=== PATIENT | male | born 1965 | race Caucasian/White ===

== ENCOUNTER 2022-04-01 22:06 | Emergency (ER) | payer MEDICARE, SELFPAY ==
[2022-04-01] VITALS (9 sets, daily range): BP systolic 165–190; BP diastolic 103–113; PULSE 82–95; RESP 13–22; TEMP 35.9; O2SAT 91–94; BMI 25.5
--- NOTE | 2022-04-01 23:26 | CRLHL7_ITS ---
For Patients: As a result of the Century Cures Act, medical imaging exams and procedure reports are released immediately into your electronic medical record. You may view this report before your referring provider. If you have questions, please contact your health care provider. INDICATION: Dyspnea and abdominal bloating TECHNIQUE: Chest 2 views. COMPARISON: None FINDINGS: Cardiovascular and mediastinum: Heart size and vasculature are normal in caliber and appearance. Left-sided AICD appears intact. Mediastinum is within normal limits. Lungs and pleural spaces: Faint scattered opacities in the lungs. Small left pleural effusion. No pneumothorax. Bones and soft tissues: No significant findings. IMPRESSION: Faint scattered opacities in both lungs concerning for infection. Small left pleural effusion. Dictated by Aleena Spear MD @ 04/02/2022 12:43:39 AM (Electronically Signed)
--- NOTE | 2022-04-01 23:28 | ED_ITS ---
HPI - SOB/Dyspnea General Chief Complaint: Shortness of Breath/Dyspnea Stated Complaint: Chest pain, difficulty breathing Time Seen by Provider: 04/01/22 23:10 Source: patient and family Mode of arrival: ambulatory History of Present Illness HPI Narrative: 56-year-old male with extensive medical history of chronically collapsed left lung, coronary artery disease presents with a 4 week history of increased dyspnea, abdominal bloating. He states that he last saw his orthodontic laboratory technician 2 days prior to his symptoms starting. Several of his medications were switched. He is not able to run down the fullest what was changed from me we are able to eventually pull up his cardiology consult note. In summary, it looks like metoprolol was stopped and he was started on carvedilol due to elevated blood pressures. There is a slight reduction in his statin as well. Patient states that since that time, he has been having more frequent abdominal bloating. His states that it is related to meals but on specific questioning it does not seem to be. It is a pressure feeling, he states that his abdomen is visibly bloated it is accompanied by feeling of slight nausea. It does not improve he tries to induce vomiting or belching. It is unchanged by bowel movements. He denies a prior history of stomach ulcers, GI bleeding, black tarry stools, prior endoscopy or colonoscopy. He notes no fever. No prior history of similar symptoms except that he had fatigue and shortness of breath a couple of years ago and that was when he was diagnosed with what sounds like an arrhythmia. Reports that he was airlifted to [facility], he had a collapsed lung and a defibrillator was put in at that time. States his defibrillator has not fired. Denies a prior history of heart failure but it looks like he has an EF of around 40% based on his cardiology records. He does not note any recent fever or significant sudden change in his symptoms just gradual progression that became frustrating causing him to come to the ED tonight. He also notes a vague chest discomfort but when I ask for the area he points more epigastric. Past medical history notable for type 2 diabetes, sounds like it is very well controlled, coronary artery disease, cardiomyopathy, hypertension, chronic thrombocytopenia. Medications reviewed and updated from [facility] records, now accurate in our records. No known drug allergies. Socially is currently a nonsmoker, recently moved back to our area from [place]. ROS is notable for the GI, respiratory, cardiovascular symptoms above, otherwise denies times 12 systems. Related Data Home Medications Medication Instructions Recorded Confirmed Home Oxygen 04/01/22 04/01/22 acetaminophen 500 mg tablet 1,000 mg PO Q4-6H PRN 04/01/22 04/01/22 (Acetaminophen Extra Strength) albuterol sulfate 90 mcg/actuation 2 inh inhalation Q4H PRN 04/01/22 04/01/22 aerosol inhaler aspirin 81 mg tablet,delayed 81 mg PO DAILY 04/01/22 04/01/22 release (Enteric Coated Aspirin) atorvastatin 80 mg tablet 40 mg PO DAILY 04/01/22 04/01/22 carvedilol 12.5 mg tablet 12.5 mg PO Q12H 04/01/22 04/01/22 coenzyme Q10 30 mg capsule 30 mg PO DAILY 04/01/22 04/01/22 furosemide 20 mg tablet 40 mg PO DAILY 04/01/22 04/01/22 hydroxyzine HCl 25 mg tablet 25 mg PO DAILY PRN 04/01/22 04/01/22 hydroxyzine HCl 50 mg tablet 50 mg PO QHS PRN 04/01/22 04/01/22 metformin 500 mg tablet,extended 2,000 mg PO DAILY 04/01/22 04/01/22 release 24 hr multivitamin 1 tab PO DAILY 04/01/22 04/01/22 omeprazole 20 mg capsule,delayed 20 mg PO DAILY 04/01/22 04/01/22 release tizanidine 2 mg tablet 2 mg PO Q8H PRN 04/01/22 04/01/22 tizanidine 4 mg tablet 4 mg PO QHS PRN 04/01/22 04/01/22 valsartan 40 mg tablet 80 mg PO DAILY 04/01/22 04/01/22 Previous Rx's Medication Instructions Recorded levofloxacin 500 mg tablet 500 mg PO DAILY #7 tabs 04/02/22 potassium chloride 20 mEq 20 meq PO BID 6 days #12 tabs 04/02/22 tablet,extended release torsemide 20 mg tablet 60 mg PO DAILY #15 tabs 04/02/22 Allergies Allergy/AdvReac Type Severity Reaction Status Date / Time No Known Drug Allergies Allergy Verified 04/01/22 22:38 [facility] Medical History Acquired right foot drop CAD in [place] artery Chronic low back pain with sciatica Coronary artery disease involving [place] coronary artery without angina pectoris Diabetes mellitus, without long-term current use of insulin DM2 (diabetes mellitus, type 2) Generalized ischemic myocardial dysfunction GERD with esophagitis Heart failure Hyperlipidemia Hypertension ICD (implantable cardioverter-defibrillator) in place Ischemic cardiomyopathy On home oxygen therapy Pneumothorax Recurrent pleural effusion on left Required emergent intubation Respiratory failure Right carotid bruit ST elevation (STEMI) myocardial infarction involving left anterior descending coronary artery Surgical History H/O heart artery stent History of thoracentesis Social History Smoking Status: Never smoker How often do you have a drink containing alcohol: never AUDIT-C Alcohol total score: 0 Non-prescribed substance use: denies use Exam Const: Vital Signs, click to edit/add: Vital Signs - 24 hr 04/01/22 22:20 04/01/22 23:00 04/01/22 22:45 Temperature 96.7 F L Pulse Rate Pulse Rate [Left P ulse Oximeter] 82 94 90 Respiratory Rate 22 13 Blood Pressure [Le ft Upper Arm] 190/113 H 170/111 H 165/103 H Pulse Oximetry 93 94 91 Oxygen Delivery Me thod Room Air Room Air 04/01/22 22:30 04/01/22 23:15 04/01/22 23:20 Temperature Pulse Rate 87 91 Pulse Rate [Left P ulse Oximeter] 89 Respiratory Rate Blood Pressure [Le ft Upper Arm] 170/107 H Pulse Oximetry 92 94 94 Oxygen Delivery Me thod 04/01/22 23:32 04/01/22 23:40 04/01/22 23:50 Temperature Pulse Rate 90 91 95 Pulse Rate [Left P ulse Oximeter] Respiratory Rate Blood Pressure [Le ft Upper Arm] Pulse Oximetry 93 94 93 Oxygen Delivery Me thod 04/02/22 00:00 04/02/22 00:10 Temperature 98.1 F Pulse Rate 91 Pulse Rate [Left P ulse Oximeter] 94 Respiratory Rate Blood Pressure [Le ft Upper Arm] 171/114 H Pulse Oximetry 93 93 Oxygen Delivery Me thod Documenting provider has reviewed patient's vital signs: yes Common normals: no apparent distress Other: He is a bit irritable but will answer questions. HENMT: Common normals: normocephalic Head and scalp: normocephalic Mouth: oral and palatal mucosa normal Throat: posterior oropharynx normal Eye: Common normals: conjunctivae normal and no scleral icterus Conjunctiva: conjunctiva(e) normal Neck & C-Spine: Common normals: no lymphadenopathy Resp: Common normals: normal respiratory effort, no use of accessory muscles and clear to auscultation bilaterally Effort & inspection: able to speak in complete sentences Auscultation: clear to auscultation bilaterally Cardio: Common normals: regular rate, regular rhythm, S1 normal heart sound, S2 normal heart sound, no murmurs and peripheral pulses 2+ throughout Rate: regular rate Rhythm: regular rhythm Heart sounds: S1 normal and S2 normal Peripheral pulses: pulses 2+ throughout GI: Other: Abdomen does seem mildly distended. Bowel sounds sound normoactive. Epigastrium is tympanitic. Liver does not seem enlarged. No obvious mass. No hepatosplenomegaly mildly diffusely tender to palpation, no guarding Extremity: Common normals: normal to inspection, normal capillary refill and no pedal edema Neuro: Speech: speech normal Motor exam: no movement abnormalities noted Psych: Other: Irritable but judgment and reasoning seem intact. Skin: Common normals: no rashes or lesions noted General skin exam: no rashes or lesions noted Course Vital Signs Vital signs: Initial Vital Signs Temperature 96.7 F L 04/01/22 22:20 Temperature Source Temporal Artery Scan 04/01/22 22:20 Pulse Rate 82 04/01/22 22:20 Respiratory Rate 22 04/01/22 22:20 Blood Pressure 190/113 H 04/01/22 22:20 Blood Pressure Mean 138 04/01/22 22:20 Blood Pressure Position Semi-Fowlers 04/01/22 22:20 Pulse Oximetry 93 04/01/22 22:20 Oxygen Delivery Method 04/01/22 22:20 Vital Signs Temperature 96.7 F L 04/01/22 22:20 Pulse Rate 82 04/01/22 22:20 Respiratory Rate 22 04/01/22 22:20 Blood Pressure 190/113 H 04/01/22 22:20 Pulse Oximetry 93 04/01/22 22:20 Oxygen Delivery Method 04/01/22 22:20 Temperature 98.1 F 04/02/22 00:10 Pulse Rate 94 04/02/22 00:10 Respiratory Rate 13 04/01/22 23:00 Blood Pressure 171/114 H 04/02/22 00:10 Pulse Oximetry 93 04/02/22 00:10 Oxygen Delivery Method 04/01/22 23:00 MDM - SOB/Dyspnea MDM Narrative Medical decision making narrative: Patient with very wandering initial chief complaint, abdominal, dyspnea, cardiac, respiratory symptoms all at once. The differential diagnosis including heart failure, bowel obstruction, cardiac ischemia, pneumonia, viral illness. Initial labs pointing to some mild infection, chest x-ray certainly suspicious for fluid. Renal function, liver function reassuring. Based on multiple organ systems involved, elected to proceed with CT scan of the chest abdomen and pelvis. Unfortunately there was nearly 2 hour delay from the time that I ordered this until the time it was performed simply because of the vast number of patients in the ER. Ultimately, findings most suspicious for congestive heart failure and fluid overload. And will be treated with furosemide IV and discussed follow-up plan for home diuresis and outpatient follow-up in 5 days to ensure adequate resolution. Some concern also that there could be infection of the left-sided pleural fluid. He certainly is more dyspnea than his reported baseline I have concern that this is part of his clinical change. I would like for him to start level floxacillin and his 1st dose was given here in the emerge ncy department. Alarm symptoms reviewed as indications to come back to the ED. he verbalizes understanding and agreement, all questions answered. Medical Records Attestation: I reviewed the patient's medical records. (Printed from [facility], cardiology consult) Lab Data Attestation: I reviewed the patient's lab results. Labs: Lab Results 04/01/22 04/01/22 04/01/22 Range/Units 22:25 22:25 22:25 WBC 12.14 H (4.50-11.00) K/uL RBC 4.92 (4.30-5.90) m/uL Hgb 13.8 (13.5-17.5) gm/dL Hct 42.2 (37.0-53.0) % MCV 86 (80-100) fL MCH 28 (26-34) pg MCHC 33 (32-36) gm/dL RDW Coeff of Ava 13.7 (11.5-15.5) % Plt Count 349 (140-440) K/uL Neut % (Auto) 68.4 (42.0-72.0) % Lymph % (Auto) 19.4 L (20-44) % [place] % (Auto) 7.4 (0.0-11.0) % Eos % (Auto) 3.7 (0.0-7.0) % Baso % (Auto) 0.9 (0.0-3.0) % Neut # (Auto) 8.30 H (1.7-7.0) K/uL Lymph # (Auto) 2.40 (0.90-2.90) K/uL [place] # (Auto) 0.90 (0.00-0.90) K/UL Eos # (Auto) 0.40 (0.00-0.50) K/uL Baso # (Auto) 0.10 (0.00-0.30) K/uL Abs Immat Gran (auto) 0.00 (0.00-0.30) K/uL Imm/Tot Granulo (auto) 0.2 % D-Dimer Quant (PE/DVT) 0.89 H (0.00-0.50) ug/ml Sodium 141 (135-149) mmol/L Potassium 3.6 (3.6-5.1) mmol/L Chloride 106 (96-114) mmol/L Carbon Dioxide 27 (20-32) mmol/L BUN 11 (7-30) mg/dL Creatinine 0.8 (0.5-1.5) mg/dL Estimated Creat Clear 107.73 Estimated GFR 105 ml/min Glucose 104 (60-115) mg/dL Calcium 9.2 (8.4-10.6) mg/dL Total Bilirubin 0.7 (0.1-1.5) mg/dL AST 23 (12-35) U/L ALT 20 (4-50) U/L Alkaline Phosphatase 66 (40-150) U/L Troponin I < 0.01 L (0.01-0.04) ng/mL C-Reactive Protein 1.0 (0.5-1.0) mg/dL NT-Pro-B Natriuret Pep 2260 H (0-125) PG/mL Total Protein 7.8 (6.0-8.3) g/dL Albumin 4.6 (3.3-5.0) g/dL Lipase 141 (23-300) U/L Imaging Data CT scan - chest: Attestation: I have reviewed the pertinent imaging results. My impression: Pleural effusion, congestive heart failure. Radiologist's impression: Impression: 1. Small left and trace right pleural effusions with interlobular septal thickening suggestive of pulmonary edema. 2. Mediastinal and hilar lymphadenopathy, favor reactive. 3. Left lower lobe consolidation, likely atelectasis although infection could be considered in the correct clinical setting. 4. No definite acute abnormality in the abdomen to explain patient`s bulging. 5. Trace free fluid in the abdomen, possibly secondary to fluid overload although nonspecific. ECG Data Attestation: I personally reviewed and interpreted this ECG as follows: Prior ECG tracings: not available for review Interpretation: Left shifted axis, normal sinus rhythm with frequent PVCs which do make interpretation quite difficult. There is some chronic appearing anterior lateral changes that I cannot determine chronicity. No obvious acute, severe ischemia. Discharge Plan Discharge Clinical Impression: Congestive heart failure, Pneumonia Patient Disposition: Home w/ Parent or Adult Condition: Improved Instructions: Heart Failure (DC), Pulmonary Edema (ED) Additional Instructions: All of the tests ultimately show that your biggest problem is fluid overload from your heart failure. I do not think that your water pills, the furosemide, is working as well as it used to. This can be common, as heart failure is unfortunately a moving target. I have given you a dose of IV furosemide here in the emergency department. This will help pull some of the fluid. I would like for you to stop your orthodontic laboratory technician prescribed furosemide for the next 5 days. In bed, you will take a high dose of torsemide, this is longer-acting and much stronger. [facility] You will take 60 mg once daily in the morning for the next 5 days. You should sepsis soon as possible and take yet today. He will need to be on potassium twice daily for the next 6 days to replace the potassium that will be lost from these water pills. Weigh yourself every morning. Record these and bring to your follow-up appointment. I suspect that you have about 10 lb of fluid to shed before you will feel better. Your primary care doctor and/or orthodontic laboratory technician will help you determine what your new ?dry weight? should be. But I suspect that this will be somewhere around 10 lb less than you are now. You have chronic fluid in your left lung, some of this should come out with treatment. There is some concern from the radiologist that this could be infected. We will treat with levofloxacin, an antibiotic for a week. You have already been given your dose for today, take your next dose that you will berry picker from the pharmacy on 04/03. I will need for you to follow-up with her primary care provider in 5-7 days to determine if the fluid management plan is working. Chances are that you will need to be on a higher dose of furosemide or may be just 20 mg of torsemide instead once daily to help manage her fluid. I do not think that 20 mg of furosemide will be enough for you anymore long-term. An increased dose of furosemide or torsemide may mean that you also need a prescription for potassium. They will determine this. Continue all of your other medications exactly as prescribed for now. Your blood pressure should improve as we get the fluid off of you. If your symptoms become severe again, please come back to the emergency department. Activity Level: Activity as Tolerated Discharge Diet: Regular Prescriptions: New levofloxacin 500 mg tablet 500 mg PO DAILY Qty: 7 0RF Rx Instructions: Begin morning of 04/03/2022, 04/02 dose given in ED torsemide 20 mg tablet 60 mg PO DAILY Qty: 15 0RF Rx Instructions: Begin morning of 04/02/2022 once picked up. Do not take furosemide for the 5 days you are on this medicine potassium chloride 20 mEq tablet extended release 20 meq PO BID 6 Days Qty: 12 0RF Rx Instructions: To replace potassium lost from new water pill No Action atorvastatin 80 mg tablet 40 mg PO DAILY carvedilol 12.5 mg tablet 12.5 mg PO Q12H furosemide 20 mg tablet 40 mg PO DAILY hydroxyzine HCl 50 mg tablet 50 mg PO QHS PRN hydroxyzine HCl 25 mg tablet 25 mg PO DAILY PRN metformin 500 mg tablet extended release 24 hr 2,000 mg PO DAILY omeprazole 20 mg capsule,delayed release(DR/EC) 20 mg PO DAILY tizanidine 2 mg tablet 2 mg PO Q8H PRN Label Comments: TAKE 1 TABLET BY MOUTH EVERY 8 HOURS NEEDED FOR MUSCLE SPASMS FOR UP TO 10 DAYS tizanidine 4 mg tablet 4 mg PO QHS PRN valsartan 40 mg tablet 80 mg PO DAILY acetaminophen [Acetaminophen Extra Strength] 500 mg tablet 1,000 mg PO Q4-6H PRN albuterol sulfate 90 mcg/actuation HFA aerosol inhaler 2 inh inhalation Q4H PRN aspirin [Enteric Coated Aspirin] 81 mg tablet,delayed release (DR/EC) 81 mg PO DAILY coenzyme Q10 30 mg capsule 30 mg PO DAILY multivitamin Tablet 1 tab PO DAILY (DME) Home Oxygen Misc See Rx Instructions .ROUTE Rx Instructions: As directed Follow Up/Referrals: Provider,Not a Local [Primary Care Provider] - Stand Alone Forms: [facility]
[2022-04-01 23:36] LABS: Basophils Percent Auto 0.9 % (0.0-3.0); Eosinophils Percent Auto 3.7 % (0.0-7.0); Hematocrit 42.2 % (37.0-53.0); Hemoglobin* 13.8 gm/dL (13.5-17.5); Immature Granulocytes Pct Auto 0.2 %; Lymphocytes Percent Auto 19.4 % (20-44); Mean Corpuscular HGB Conc 33 gm/dL (32-36); Mean Corpuscular Hemoglobin 28 pg (26-34); Mean Corpuscular Volume 86 fL (80-100); Monocytes Percent Auto 7.4 % (0.0-11.0); Neutrophils Percent Auto 68.4 % (42.0-72.0); Platelet Count* 349 K/uL (140-440); RDW Coefficient of Variation % 13.7 % (11.5-15.5); Red Blood Count 4.92 m/uL (4.30-5.90); White Blood Count* 12.14 K/uL (4.50-11.00)
[2022-04-01 23:38] LABS: Slide Review Reflex No
[2022-04-01 23:50] LABS: Albumin* 4.6 g/dL (3.3-5.0); Chloride* 106 mmol/L (96-114)
[2022-04-01 23:51] LABS: Potassium* 3.6 mmol/L (3.6-5.1); Sodium* 141 mmol/L (135-149)
[2022-04-01 23:53] LABS: Alkaline Phosphatase* 66 U/L (40-150); Aspartate Amino Transferase* 23 U/L (12-35); Bilirubin Total* 0.7 mg/dL (0.1-1.5); Carbon Dioxide* 27 mmol/L (20-32); Creatinine* 0.8 mg/dL (0.5-1.5); Est. Creatinine Clearance* 107.73; Estimated Glomerular Filt Rate 105 ml/min; Lipase* 141 U/L (23-300); Total Protein* 7.8 g/dL (6.0-8.3)
[2022-04-01 23:54] LABS: Alanine Aminotransferase* 20 U/L (4-50); Blood Urea Nitrogen* 11 mg/dL (7-30); Calcium* 9.2 mg/dL (8.4-10.6); D Dimer Quantitative* 0.89 ug/ml (0.00-0.50); Glucose* 104 mg/dL (60-115)
[2022-04-02] VITALS: PULSE 91; O2SAT 93
[2022-04-02 00:02] LABS: NT Pro B Type NatriureticPept* 2260 PG/mL (0-125)
[2022-04-02 00:07] LABS: Troponin I* < 0.01 ng/mL (0.01-0.04)
[2022-04-02 00:10] VITALS: BP 171/114; PULSE 94; TEMP 36.7; O2SAT 93
--- NOTE | 2022-04-02 00:10 | CRLHL7_ITS ---
For Patients: As a result of the 21st Century Cures Act, medical imaging exams and procedure reports are released immediately into your electronic medical record. You may view this report before your referring provider. If you have questions, please contact your health care provider. Indication: Chest pain, abdominal pain and bloating Technique: Contrast enhanced CT of the chest, abdomen and pelvis, Isovue 370, 95 cc IV Please note that all CT scans at this facility use dose modulation, iterative reconstruction, and/or weight-based dosing when appropriate to reduce radiation dose to as low as reasonably achievable. Comparison: None Findings: The thyroid, neck base, central airways and esophagus are unremarkable. Enlarged hurt. Fatty infiltration of the left ventricular apex indicative of prior infarct. Severe coronary artery calcifications. Normal course and caliber of the thoracic aorta and the pulmonary arteries. No central pulmonary artery filling defect. Multiple enlarged mediastinal and hilar lymph nodes (series 2, image 45, 53). Left chest wall generator in place. Mild bilateral gynecomastia. Bilateral interlobular septal thickening at the bases. Superimposed left lower lobe consolidation versus atelectasis (series 2, image 89). Small left and trace right pleural effusions. No pneumothorax. Normal liver size and contour. The hepatic veins are under distended. The portal veins appear patent. Cholelithiasis. No biliary dilatation. The adrenal glands, kidneys, spleen, pancreas, stomach and duodenum are unremarkable. Normal course and caliber of the abdominal aorta and the IVC. [id number] atherosclerotic disease of the abdominal aorta. The aortic side branches and renal veins appear patent. Bladder and prostate are unremarkable. Trace free fluid within the pelvis (series 2, image 235). No bowel obstruction. No bowel wall thickening. Normal appendix. Severe bilateral neural degenerative change of the sacroiliac joints. No acute osseous abnormality. Impression: 1. Small left and trace right pleural effusions with interlobular septal thickening suggestive of pulmonary edema. 2. Mediastinal and hilar lymphadenopathy, favor reactive. 3. Left lower lobe consolidation, likely atelectasis although infection could be considered in the correct clinical setting. 4. No definite acute abnormality in the abdomen to explain patient`s bulging. 5. Trace free fluid in the abdomen, possibly secondary to fluid overload although nonspecific. Please note that all CT scans at this facility use dose modulation, iterative reconstruction, and/or weight-based dosing when appropriate to reduce radiation dose to as low as reasonably achievable. Dictated by Oumar Verdugo MD @ 04/02/2022 2:40:07 AM (Electronically Signed)
--- OUTSIDE RECORDS SUMMARY | 2022-04-02 01:24 | XMS_ITS | Encounter Summary ---
:1965 Author Organization [facility] Address [address] [place] [address] Care Team Providers Name Role Phone Elsewhere, Pcp Primary Care Provider Unavailable Encounter Details Date Type Department Care Team Description 02/09/2022 Hospital Department of Yuni Bhagat Encounter Saundra Cespdees M.D. Unspecified Medicine in [address], [address], [address] [place] [address] [place], [place] [phone] [facility] Social History Tobacco Use Types Packs/Day Years Used Date Smoking Tobacco: Former Cigarettes Quit : 2007 Smokeless Tobacco: Never Alcohol Use Standard Drinks/Week Comments Never 0 (1 standard drink = 0.6 oz pure alcoho l) Alcohol Habits Answer Date Recorded How often do you have a drink containing alcohol? Never 02/09/2021 How many drinks containing alcohol do you have on a typical Not asked day when you are drinking? How often do you have six or more drinks on one occasion? No t asked Social Isolation Answer Date Recorded In a typical week, how many times do you More than three juliana es a week 02/09/2021 talk on the phone with family, friends, or neighbors? How often do you get together with friends More than three t imes a week 02/09/2021 or relatives? How often do you attend anglican or More than 4 times per year 02/09/2021 orthodoxy services? Do you belong to any clubs or Yes 02/09/2021 organizations such as anglican groups, unions, fraternal or athletic groups, or school groups? How often do you attend meetings of the More than 4 times pe r year 02/09/2021 clubs or organizations you belong to? Are you now , , , 02/09/2021 , never or living with a partner? Physical Activity Answer Date Recorded On average, how many days per week do you engage in moderate 0 days 02/09/2021 to strenuous exercise (like walking fast, running, jogging, dancing, swimming, biking, or other activities that cause a light or heavy sweat)? On average, how many minutes do you engage in exercise at No t asked this level? Stress Answer Date Recorded Do you feel stress - tense, restless, nervous, or anxious, o r Very much 02/09/2021 unable to sleep at night because your mind is troubled all the time - these days? Financial Resource Strain Answer Date Recorded How hard is it for you to pay for the very basics like food, Very hard 02/09/2021 housing, medical care, and heating? Housing Stability Answer Date Recorded In the last 12 months, was there a time when you were not ab le Yes 02/09/2021 to pay the mortgage or rent on time? In the last 12 months, how many places have you lived? 3 02/09/2021 In the last 12 months, was there a time when you did not hav e a No 02/09/[address] sleep or slept in a skilled nursing (including now)? Education Answer Date Recorded What is the highest level of school you have completed or th e 9th grade 02/09/2021 highest degree you have received? Sex Assigned at Date Recorded Male 02/09/2021 2:11 PM CDT documented as of this encounter Medications at Time of Discharge Medication Sig Dispensed Refills Start Date End Date blood glucose ctl Glucose control 1 each 0 12/06/2020 high,nml,low solution provides an solutionIndications: easy way to ensure Diabetes Mellitus Type accurate blood 2 Hyperglycemia (HCC) glucose testing. blood-glucose meter Test as directed for 1 each 0 2020 [facility] diabetes control. blood-glucose meter Test as directed for 1 each 0 2020 miscIndications: diabetes control. Diabetes Mellitus Type 2 Hyperglycemia (HCC) losartan (COZAAR) 100 Take 1 tablet (100 mg 90 tablet 3 01/2021 mg tablet total) by mouth daily. metFORMIN XR Take 4 tablets (2,000 360 tablet 3 03/21/2021 (GLUCOPHAGE-XR) 500 mg mg total) by mouth 24 hr daily with breakfast. tabletIndications: Hold metformin for 2 Diabetes Mellitus Type days. Resume taking 2 Hyperglycemia (HCC) on 03/23/21. multivitamin tablet Take 1 tablet by 0 mouth daily. Diabetic Complete Multivitamin spironolactone Take 1 tablet (25 mg 30 tablet 11 02/23/2021 (ALDACTONE) 25 mg total) by mouth tablet daily. Ventolin HFA 90 INHALE 2 PUFFS BY 18 g 4 02/23/2021 mcg/actuation inhaler MOUTH EVERY FOUR HOURS NEEDED FOR WHEEZING OR SHORTNESS OF BREATH flash glucose scanning 1 kit daily. 1 each 0 03/13/2021 03/13/2022 reader (FreeStyle Jose 2 Slater) miscIndications: Diabetes Mellitus Type 2 Hyperglycemia (HCC) flash glucose sensor 1 kit every 14 6 kit 3 03/13/2021 03/13/2022 (FreeStyle Jose 2 (fourteen) days. Sensor) kitIndications: Diabetes Mellitus Type 2 Hyperglycemia (HCC) documented as of this encounter Plan of Treatment Not on filedocumented as of this encounter Procedures Procedure Name Priority Date/Time Associated Diagnosis Comme nts BCR/ABL1 QUALITATIVE Routine 02/09/2022 9:37 Thrombocytosis Re sults for this DIAGNOSTIC ASSAY AM CDT Unspecified procedure a re in WITH REFLEX TO the results BCR/ABL1 P190 QUANT section. OR QUAL ASSAY JAK2 V617F MUTATION Routine 02/09/2022 9:37 Thrombocytosis Res ults for this DETECTION, B AM CDT Unspecified procedure are i n the results section. BCR/ABL1, P210, Routine 02/09/2022 9:37 Thrombocytosis Results for this QUANT, MONITOR AM CDT Unspecified procedure are in the results section. IRON AND TOT Routine 02/09/2022 9:37 Thrombocytosis Results fo r this IRON-BINDING AM CDT Unspecified procedure are i n CAPACITY, S/P the results section. CBC WITH Routine 02/09/2022 9:37 Thrombocytosis Results fo r this DIFFERENTIAL, B AM CDT Unspecified procedure ar e in the results section. FERRITIN, S Routine 02/09/2022 9:37 Thrombocytosis Results fo r this AM CDT Unspecified procedure are i n the results section. documented in this encounter Results (ABNORMAL) Iron and Total Iron-Binding Capacity (02/09/2022 9:37 AM CDT) P athologist Signature Iron 45 (L) 50 - 150 02/09/2022 MKTO mcg/dL 3:23 PM CDT Total Iron 231 (L) 250 - 400 02/09/2022 MKTO Binding mcg/dL 3:23 PM CDT Capacity Percent 19 14 - 50 % 02/09/2022 MKTO Saturation 3:23 PM CDT Specimen Anatomical Collection Method Collection Time Receive d Time (Source) Location / / Volume Laterality Blood (Blood, 02/09/2022 9:37 AM 02/10/20 2:47 Venous) CDT PM CDT Yuni Bhagat M.D. LAB BLOOD ADD-ON Performing Organization Address City/State/ZIP Code Phon e Number [facility]- [address] [place] [phone] [facility] [place] [address] System in [place] [address] [place] [address] JAK2 V617F Mutation Detection, Blood (02/09/2022 9:37 AM CDT) Component Value Ref Test Analysis Performed Pathologis t Range Method Time At Signature JAK2 Result see interpretation 02/13/2022 DTL 5:08 PM CDT Interpretation Peripheral blood, JAK2 V617F mutation analysis: 02/13/2022 DTL 5:08 PM Negative for JAK2 V617F. CDT A negative ??JAK2 V617F test result does not exclude the pos sibility of a myeloproliferative neoplasm (MPN). If clinical suspici on is high for primary myelofibrosis (PMF) or essential thrombocythemia (ET), consi monse additional testing for ??CALR ??with re flex to MPL (test ID: [id number]). If clinical suspicion is high for polycythemia vera, the test ??JAK2 ??Exon 12 and Other Non-V617F Mutational Detection (test ID: JAKXB or JAKXM) could be cons idered. Clinicopathologic correlation is recommended for a definitiv e diagnosis. Signing Pathologist: Guillermo Pagan M.D. (Jane), Ph.D. Comment: ----ADDITIONAL INFORMATION---- Method summary - JAK2 V617F analysis: ?? Quantitative, allele-specific polymerase chain reaction (PCR) assay wa s performed using extracted genomic DNA to evaluate for the point mutation c ausing JAK2 V617F. ??The analytic sensitivity of this assay has been deter mined at 0.06% (see [facility] Interpretive Handbook for m gloria details). This test was developed and its performa nce characteristics determined by [facility] in a manner consistent with CLIA requirements. This test has not been cleared or approved by the [place] and Drug Administration. Specimen Anatomical Collection Method Collection Time Receive d Time (Source) Location / / Volume Laterality Blood (Blood, 02/09/2022 9:37 AM 02/11/20 7:08 Venous) CDT AM CDT Narrative This result has an attachment that is no t available. Yuni Bhagat M.D. LAB GENETIC TESTING Performing Organization Address City/[facility]/ZIP [facility] Phon e Number [facility] - [address] [place] [address] [address] [place] [address] [facility] [address] [facility] Ferritin (02/09/2022 9:37 AM CDT) P athologist Signature Ferritin, S 168 31 - 409 02/09/2022 [facility] mcg/L 3:23 PM CDT Comment: Biotin has been identified by the karen westfall as a potential interfering substance. Higher concentrations of biotin may be found in multivitamins, skelton ir/nail supplements, and workout supplements. If the result d oes not match clinical observations, repeat testing af ter patient refrains from the use of supplements for at least 12 hours. Specimen Anatomical Collection Method Collection Time Receive d Time (Source) Location / / Volume Laterality Blood (Blood, 02/09/2022 9:37 AM 02/10/20 2:47 Venous) CDT PM CDT Yuni Bhagat M.D. LAB BLOOD ADD-ON Performing Organization Address City/[facility]/ZIP Code Phon e Number [facility]- [address] [place] [phone] [facility] [place] [address] System in [place] [address] [place] [address] (ABNORMAL) CBC with Differential, Blood (02/09/2022 9:37 AM CDT) [facility] gist Method Time Signature Hemoglobin 14.0 13.2 - 02/09/2022 NPRG 16.6 g/dL 9:47 AM CDT Hematocrit 42.2 38.3 - 02/09/2022 NPRG 48.6 % 9:47 AM CDT Erythrocytes 4.94 4.35 - 02/09/2022 NPRG 5.65 9:47 AM CDT x10(12)/L MCV 85.4 78.2 - 02/09/2022 NPRG 97.9 fL 9:47 AM CDT RBC Distrib Width 14.8 (H) 11.8 - 02/09/2022 NPRG 14.5 % 9:47 AM CDT Platelet Count 348 (H) 135 - 317 02/09/2022 NPRG x10(9)/L 9:47 AM CDT Leukocytes 10.2 (H) 3.4 - 9.6 02/09/2022 NPRG x10(9)/L 9:47 AM CDT Neutrophils 6.17 1.56 - 02/09/2022 NPRG 6.45 9:47 AM CDT x10(9)/L Lymphocytes 2.67 0.95 - 02/09/2022 NPRG 3.07 9:47 AM CDT x10(9)/L Monocytes 0.75 0.26 - 02/09/2022 NPRG 0.81 9:47 AM CDT x10(9)/L Eosinophils 0.50 (H) 0.03 - 02/09/2022 NPRG 0.48 9:47 AM CDT x10(9)/L Basophils 0.10 (H) 0.01 - 02/09/2022 NPRG 0.08 9:47 AM CDT x10(9)/L Specimen Anatomical Collection Method Collection Time Receive d Time (Source) Location / / Volume Laterality Blood (Blood, 02/09/2022 9:37 AM 02/10/20 9:43 Venous) CDT AM CDT Yuni Bhagat M.D. LAB BLOOD ADD-ON Performing Organization Address City/State/ZIP Code Phon e Number [facility]- [address] [place], [place] [address] [facility] [place] [address] [place] [address] [place] BCR/ABL1 Qualitative Diagnostic Assay with Reflex to BCR/ABL1 p190 Quantitative Assay or BCR/ABL1 p210 Quantitative Assay (02/09/2022 9:37 AM CDT) Component Value Ref Test Analysis Performed Pathologis t Range Method Time At Signature Specimen Type Peripheral blood 02/13/2022 DTL 2:45 PM CDT BCR/ABL1 Reflex see 02/13/2022 DTL Result interpretation 2:45 PM CDT Interpretation Peripheral blood, BCR/ABL1 mRNA analysis, qualitativ e: 02/13/2022 DTL 2:45 PM Negative. No BCR/ABL1 mRNA transcripts were detected. CDT Method summary: The presence or absence of BCR/ABL1 mRNA tra nscripts was evaluated using a qualitative, reverse clinical audiologist PCR-bas ed assay. The assay detects nearly all published and theoretical BCR/ABL1 fusion forms including the common e13/e14-a2 (p210) and e1-a2 (p190 ) transcripts, as well as other rarer variants (e.g. e19-a2 (p230), e13/e14-a3, e1- a3, etc.). The limit of detection for this assay is 0.1%. Please contact [facility] at [phone] with questions or if additional testing is requ ired. See [facility] Test Catalog for additional method jojo ocasio. Signing Pathologist: Guillermo Pagan M.D (Jane)., Ph.D. Comment: ----ADDITIONAL INFORMATION---- This test was developed and its performa nce characteristics determined by [facility] in a manner consistent with CLIA requirements. This test has not been cleared or approved by the [place] and Drug Administration. Specimen (Source) Anatomical Collection Method Collection Time Re ceived Time Location / / Volume Laterality Blood (Blood, 02/09/2022 9:37 02/10/2022 7:15 Peripheral Draw) AM CDT AM CDT Narrative This result has an attachment that is no t available. Yuni Bhagat M.D. LAB GENETIC TESTING Performing Organization Address City/State/ZIP Code Phon e Number [facility] - [address] [place], [place] [address] [place] [address] [facility] [address] BCR/ABL1, p210, mRNA Detection, Reverse Hydropulper-PCR (RT-PCR), Quantitative, Monitoring ChronicMyeloid Leukemia (CML) (02/09/2022 9:37 AM CDT) Component Value Ref Test Analysis Performed Pathologis t Range Method Time At Signature Specimen Type Peripheral blood 02/12/2022 DTL 2:18 PM CDT BCR/ABL1, p210 see 02/12/2022 DTL Result interpretation 2:18 PM CDT Interpretation Peripheral blood, BCR/ABL1 m RNA level analysis (p210 fusion form): 02/12/2022 DTL 2:18 PM Negative. No BCR/ABL1 p210 mRNA transcripts were detected CDT (%BCR/ABL1(p210):ABL1=0). NOTE: Please correlate this result with the original (diagno stic) BCR-ABL1 mRNA transcript type identified in this patient to ensure th at the ordered test is correct and appropriate for the clinical indication. This assay specifically detects the p210 (e13a2 or e14a2) BCR-ABL1 tr anscript isoform. It does not detect the BCR-ABL1 p190 (e1-a2) transcript (pre valent in B-lymphoblastic leukemia, but may also rarely occur in chron ic myeloid leukemia) or other rare BCR-ABL1 transcript isoforms. Signing Pathologist: Estefany Zaldivar M.D. Comment: ----ADDITIONAL INFORMATION---- Method summary - BCR/ABL1, p210 fusion: ??The BCR/ABL1 transcript level was evaluated using a quantitative, reverse clinical audiologist PCR. The analytical sensitivity of this assay has been deter mined at 0.003% (MR 4.5). This assay detects the major breakpoint region-asso ciated common fusion mRNA forms in chronic myelogenous leukemia (e13/a2 and e14/a2), which code for a p210 protein. It is intended for monitoring p atients with hematopoietic neoplasms known to carry the p210 fusion form. The assay does not detect other BCR/ABL1 mRNA types, including the e1/a2 transcri pt (p190 protein) that is commonly present in acute lymphoblastic leukemia. This assay is not intended for use in the diagnostic setting, as it does no t detect all BCR/ABL1 mRNA fusion forms. If this has been performed in a d iagnostic setting and the result is negative, test: BADX (BCR/ABL mRNA Detec tion, RT-PCR, Qualitative, Diagnostic) should be ordered to evaluat e for all possible fusion forms. Please contact the [facility] at [phone] with questions or if additional testing is required. See the [facility] Interpretive Handbook for m ethod details. The reproducibility of this assay is suc h that results within 0.5 log should be considered equivalent. ??Trends in th e level of BCR/ABL1 mRNA should be followed carefully and clinically signif icant changes in BCR/ABL1 mRNA levels during tyrosine kinase inhibitor (TKI) t herapy may indicate the presence of acquired BCR/ABL1 kinase domain mutation s, which can be further evaluated using the BCR/ABL KDM assay (test: BAKDM ). This test was developed and its performa nce characteristics determined by [facility] in a manner consistent with CLIA requirements. This test has not been cleared or approved by the [place] and Drug Administration. Specimen Anatomical Collection Method Collection Time Receive d Time (Source) Location / / Volume Laterality Blood (Blood, 02/09/2022 9:37 AM 02/11/20 7:14 Venous) CDT AM CDT Narrative This result has an attachment that is no t available. Yuni Bhagat M.D. LAB BLOOD NON ADD-ON Performing Organization Address City/State/ZIP Code Phon e Number [facility] - [address] [place], [place] [address] [facility] [place] [address] [facility] [address] documented in this encounter Visit Diagnoses Diagnosis Thrombocytosis Unspecified documented in this encounter Care Teams Cpc Relationship Specialty Start Date End Date Elsewhere, Pcp PCP - General 02/22/21 documented as of this encounter
--- OUTSIDE RECORDS SUMMARY | 2022-04-02 01:24 | XMS_ITS | Clinical Summary ---
:1965 Author Organization [facility] Address [address] [place] [address] Care Team Providers Name Role Phone Elsewhere, Pcp Primary Care Provider Unavailable Source Comments Patient records contain information from all sites at [facility]. For routine questions regarding patient records, call [phone] during business hours, M-F 8:00 AM - 5:00 PM Central Time. Record requests for emergency care only can be directed to [phone] at any time.[facility] Allergies No known active allergies Medications Medication Sig Dispensed Refills Start Date End Date Status multivitamin tablet Take 1 tablet by 0 Active mouth daily. Diabetic Complete Multivitamin blood-glucose meter Test as directed 1 each 0 12/01/2020 Active misc for diabetes control. blood sugar 3 test daily. 270 test 3 12/06/2020 Act sincere diagnostic stripsIndications: Diabetes Mellitus Type 2 Hyperglycemia (HCC) blood-glucose meter Test as directed 1 each 0 12/06/2020 Active miscIndications: for diabetes Diabetes Mellitus control. Type 2 Hyperglycemia (HCC) blood glucose ctl Glucose control 1 each 0 12/06/2020 Active high,nml,low solution provides solutionIndications: an easy way to Diabetes Mellitus ensure accurate Type 2 Hyperglycemia blood glucose (HCC) testing. spironolactone Take 1 tablet (25 30 tablet 11 02/23/2021 Active (ALDACTONE) 25 mg mg total) by mouth tablet daily. losartan (COZAAR) Take 1 tablet (100 90 tablet 3 03/08/2021 Active 100 mg tablet mg total) by mouth daily. furosemide (LASIX) Take 1 tablet (20 0 03/08/2021 Active 20 mg tablet mg total) by mouth daily as needed (take a dose, if there is more than 3 pounds weight gain). metFORMIN XR Take 4 tablets 360 tablet 3 03/21/2021 Active (GLUCOPHAGE-XR) 500 (2,000 mg total) mg 24 hr by mouth daily tabletIndications: with breakfast. Diabetes Mellitus Hold metformin for Type 2 Hyperglycemia 2 days. Resume (HCC) taking on 03/23/21. Ventolin HFA 90 INHALE 2 PUFFS BY 18 g 4 02/23/2021 Active mcg/actuation MOUTH EVERY FOUR inhaler HOURS NEEDED FOR WHEEZING OR SHORTNESS OF BREATH metoprolol succinate TAKE 1 TABLET BY 60 tablet 1 12/05/2020 Active (TOPROL-XL) 100 mg MOUTH DAILY, DO 24 hr tablet NOT CRUSH OR CHEW atorvastatin TAKE 1 TABLET BY 15 tablet 0 12/05/2020 Active (LIPITOR) 80 mg MOUTH EVERY NIGHT tablet AT BEDTIME blood sugar USE DIRECTED 100 each 1 12/01/2020 A ctive diagnostic strips TWO TIMES A DAY aspirin [address] TAKE 1 TABLET BY 30 tablet 0 12/05/2020 Active tablet MOUTH EVERY NIGHT AT BEDTIME acetaminophen TAKE 2 TABLETS BY 100 tablet 0 12/05/2020 Active (TYLENOL) 500 mg MOUTH EVERY SIX tablet HOURS flash glucose 1 kit daily. 1 each 0 03/13/2021 Ex pired scanning reader 2 (Donate Your DesktopStyle [place] 2 [place]ork) miscIndications: Diabetes Mellitus Type 2 Hyperglycemia (HCC) flash glucose sensor 1 kit every 14 6 kit 3 03/13/2021 (FreeStyle Jose 2 (fourteen) days. 2 Sensor) kitIndications: Diabetes Mellitus Type 2 Hyperglycemia (HCC) Active Problems Problem Noted Date Automatic Implantable Cardiac Defibrillator Status Pos t 03/21/2021 Overview: Single chamber ICD insertion 03/21/[address] Sawyer. 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 Disease Of [place] ve Coronary Artery Without Angina Pectoris 02/09/2022 Hospital Laboratory Yuni Bhagat Thrombocyto sis Encounter Medicine J, MKeven Unspecified from Last 3 Months Social History Tobacco Use Types Packs/Day Years [...] or relatives? How often do you attend taoist or More than 4 times per year 02/09/2021 mu-ism services? Do you belong to any clubs or Yes 02/09/2021 organizations such as taoist groups, unions, fraternal or athletic groups, or [...] place to sleep or slept in a penitentiary (including now)? Education Answer Date Recorded What is the highest level of school you have completed or th e 9th grade 02/09/2021 highest degree you have received? Sex Assigned at Date Recorded Male 02/09/2021 2:11 PM CDT Last Filed Vital Signs Vital Sign Reading Time Taken Comments Blood Pressure 143/82 03/21/2021 3:10 PM FIELD RECORDER Pulse 71 03/21/2021 3:10 PM FIELD RECORDER Temperature 36.7 ??C (98.1 ??F) 03/21/2021 9:22 AM FIELD RECORDER Respiratory Rate 21 02/24/2021 4:22 PM CDT Oxygen Saturation 98% 03/21/2021 3:10 PM FIELD RECORDER Inhaled Oxygen Concentration - - Weight 86.2 kg (190 lb 0.6 oz) 03/20/2021 4:07 PM FIELD RECORDER Height 178.1 cm (5' 10.12) 03/20/2021 4:07 PM FIELD RECORDER Body Mass Index 27.18 03/20/2021 4:07 PM FIELD RECORDER Plan of Treatment Health Maintenance Due Date Last Done Comments CT Colonography 1966 Cologuard 1965 Colonoscopy 1965 Colorectal Cancer Screening 1966 Diabetic Office Visit with Foot 1966 Exam FIT 1965 HIV Screening 1965 Hepatitis B Vaccines (1 of 3 - 1966 3-dose series) Hepatitis C Screening 1966 Urine Albumin 1966 COVID-19 Vaccine (#1) 1966 Pneumococcal vaccine (0-64 years) 1972 (1 - PCV) Dilated Eye Exam 01/02/2004 01/01/2003 DTaP,Tdap,and Td Vaccines (1 - 10/27/2004 10/26/2004 Tdap) Zoster Vaccines (1 of 2) 2016 Depression Screening (Annual 04/29/2021 PHQ-2) Office Visit for Blood Pressure 06/20/2021 03/20/2021 Check / Re-check Hemoglobin A1C 08/10/2021 02/09/2021, 01/25/2021, 11/28/2020 Influenza Vaccine (#1) 2022 03/16/2008, 03/16/2008 Lipid (Cholesterol) Screening 02/09/2022 02/09/2021 Creatinine Level 03/14/2023 03/14/2022, 05/15/2021, 03/08/2021, Additional history exists Potassium Level 03/14/2023 03/14/2022, 05/15/2021, 03/08/2021, Additional history exists Sodium Level 03/14/2023 03/14/2022, 05/15/2021, 03/08/2021, Additional history exists Medical Devices Implanted Type Area Printing Machine Operator Device Shelf Model / Identifier Expiration Serial / Date Lot Icd Acticor Vr Df 4 - [id number] - [id number] Implant Cardiac BIOTRONIK 11/26/2022 [id number] / Implanted: Qty: 1 on 03/21/2021 by Ellis Serrano M.D., M.P.H. at [facility] Defibrillator [id number] / Procedures Procedure Name Priority Date/Time Associated Diagnosis Comme nts BASIC METABOLIC STAT 03/14/2022 11:49 Atherosclerotic Heart Results for this PANEL, S/P AM FIELD RECORDER Disease Of [place] procedure are in Coronary Artery Without the results Angina Pectoris section. IRON AND TOT Routine 02/09/2022 9:37 Thrombocytosis Results fo r this IRON-BINDING AM CDT Unspecified procedure are i n CAPACITY, S/P the results section. JAK2 [id number] MUTATION Routine 02/09/2022 9:37 Thrombocytosis Res ults for this DETECTION, B AM CDT Unspecified procedure are i n the results section. FERRITIN, S Routine 02/09/2022 9:37 Thrombocytosis Results fo r this AM CDT Unspecified procedure are i n the results section. CBC WITH Routine 02/09/2022 9:37 Thrombocytosis Results fo r this DIFFERENTIAL, B AM CDT Unspecified procedure ar e in the results section. BCR/ABL1 Routine 02/09/2022 9:37 Thrombocytosis Results fo r this QUALITATIVE AM CDT Unspecified procedure are i n DIAGNOSTIC ASSAY the results WITH REFLEX TO section. BCR/ABL1 P190 QUANT OR QUAL ASSAY BCR/ABL1, P210, Routine 02/09/2022 9:37 Thrombocytosis Results for this QUANT, MONITOR AM CDT Unspecified procedure are in the results section. from Last 3 Months Results Basic Metabolic Panel (03/14/2022 11:49 AM FIELD RECORDER) P athologist Signature Potassium, P 4.0 3.6 - 5.2 03/14/2022 NPRG mmol/L 6:20 PM FIELD RECORDER Sodium, P 141 135 - 145 03/14/2022 NPRG mmol/L 6:20 PM FIELD RECORDER Chloride, P 104 98 - 107 03/14/2022 NPRG mmol/L 6:20 PM FIELD RECORDER Bicarbonate, P 29 22 - 29 03/14/2022 NPRG mmol/L 6:20 PM FIELD RECORDER Anion Gap, P 8 7 - 15 03/14/2022 NPRG 6:20 PM FIELD RECORDER BUN (Blood Urea 9 8 - 24 03/14/2022 NPRG Nitrogen), P mg/dL 6:20 PM FIELD RECORDER Creatinine 0.94 0.74 - 03/14/2022 NPRG 1.35 mg/dL 6:20 PM FIELD RECORDER Estimated GFR >90 >=60 03/14/2022 NPRG (eGFR) mL/min/BSA 6:20 PM FIELD RECORDER Comment: Estimated GFR calculated using the 2020 CKD_EPI creatinine equation. Calcium, Total, P 9.2 8.6 - 10.0 mg/dL 03/14/2022 6:20 PM FIELD RECORDER NPRG Glucose, P 124 70 - 140 mg/dL 03/14/2022 6:20 PM FIELD RECORDER N PRG Specimen Anatomical Collection Method Collection Time Receive d Time (Source) Location / / Volume Laterality Blood (Blood, 03/14/2022 11:49 03/14/2022 Venous) AM FIELD RECORDER 11:58 AM FIELD RECORDER Humberto Jones MD LAB BLOOD ADD-ON Performing Organization Address City/State/ZIP Code Phon e Number [facility]- [address] [place] [address] [place] [address] [place] BCR/ABL1 Qualitative Diagnostic Assay with Reflex to [...] nscripts was evaluated using a qualitative, reverse supervisor fishing PCR-bas ed assay. The assay detects nearly all published and theoretical BCR/ABL1 fusion forms including the common e13/e14-a2 (p210) and e1-a2 (p190 ) transcripts, as well as other rarer variants (e.g. e19-a2 (p230), e13/e14-a3, e1- a3, etc.). The limit of detection for this assay is 0.1%. Please contact [facility] lab at [phone] with questions or if additional testing is requ ired. See [facility] Test Catalog for additional method jojo ocasio. Signing Pathologist: Guillermo Pagan M.D (Jane)., Ph.D. Comment: ----ADDITIONAL INFORMATION---- This test was developed and its performa nce characteristics determined by [facility] in a manner consistent with CLIA requirements. [...] Organization Address City/State/ZIP Code Phon e Number [facility] - [address] [place], [place] [address] [facility] [place] [address] Laboratories-[facility] [address] JAK2 V617F Mutation Detection, Blood (02/09/2022 9:37 [...] has been deter mined at 0.06% (see [facility] Interpretive Handbook for m ethod details). This test was developed and its performa nce characteristics determined by [facility] in a manner consistent with CLIA requirements. [...] Organization Address City/State/ZIP Code Phon e Number [facility] - [facility] [address] [place], [place] [address] [facility] [place] [address] [facility] [address] [facility] BCR/ABL1, p210, mRNA Detection, Reverse Photoengraving Etcher-PCR (RT-PCR), Quantitative, Monitoring ChronicMyeloid Leukemia (CML) (02/09/2022 [...] level was evaluated using a quantitative, reverse supervisor fishing PCR. The analytical sensitivity of this assay [...] all possible fusion forms. Please contact the [facility] at [phone] with questions or if additional testing is required. See the [facility] Interpretive Handbook for m ethod details. [...] and its performa nce characteristics determined by [facility] in a manner consistent with CLIA requirements. [...] Organization Address City/State/ZIP Code Phon e Number [facility] - [address] [place], [place] [address] [facility] [place] [address] [facility] [address] (ABNORMAL) Iron and Total Iron-Binding Capacity (02/09/2022 [...] Organization Address City/State/ZIP Code Phon e Number [facility]- [address] [place] [id number] [place] [address] [address] (ABNORMAL) CBC with Differential, Blood (02/09/2022 9:37 AM CDT) Patholo gist Method Time Signature Hemoglobin 14.0 13.2 [...] M.D. LAB BLOOD ADD-ON Performing Organization Address [facility] Phon e Number [facility]- [address] [place] [address] [place] [address] [place] [address] Ferritin (02/09/2022 9:37 AM CDT) athologist Signature Ferritin, S 168 31 - 409 02/09/2022 [facility] mcg/L 3:23 PM CDT Comment: Biotin has [...] M.D. LAB BLOOD ADD-ON Performing Organization Address City/[facility]/ZIP Code Phon e Number [facility]- [address] [place] [address] [place] [address] [address] from Last 3 Months Insurance Payer Benefit Plan / Subscriber ID Effective Phone Address T ype Group Dates MEDICARE MEDICARE A AND B [id number] 2008-Prese [address] Medicare nt PEREZ [place] [id number] GENERIC GENERIC MEDICAID Effective for Medicaid MEDICAID NON PARTICIPATING all dates QMB Advance Directives For more information, please contact: [phone] Latest Code Status on File Code Status Date Activated Date Inactivated Comments Full Code 11/28/2020 6:05 AM 12/05/2020 6:37 PM Question Answer Comments Full Code: Not Discussed Due to: Patient does not have the capacity Care Teams Engineering Supplies Sales Relationship Specialty Start Date End Date Elsewhere, Pcp PCP - General 02/22/21
--- OUTSIDE RECORDS SUMMARY | 2022-04-02 01:24 | XMS_ITS | Encounter Summary ---
:1965 Author Organization [facility] Address [address] [place] [address] Care Team Providers Name Role Phone Elsewhere, Pcp Primary Care Provider Unavailable Reason for Visit Reason Comments Follow-up Pre-visit Testing Orders Encounter Details Date Type Department Care Team Description 06/13/2021 Clinical Division of Bertin, Follow-up; Communication Endocrinology in Rahat Duran M.D. Pre-visit Testing [place], [place] [address] [facility] [[email or web address] Orders [address] [place] [id number] [phone] Social History Tobacco Use Types Packs/Day Years [...] or relatives? How often do you attend faith or More than 4 times per year 02/09/2021 uatsdin services? Do you belong to any clubs or Yes 02/09/2021 organizations such as faith groups, unions, fraternal or athletic groups, or [...] place to sleep or slept in a [facility] (including now)? Education Answer Date Recorded What is the highest level of school you have completed or th e 9th grade 02/09/2021 highest degree you have received? Sex Assigned at Date Recorded Male 02/09/2021 2:11 PM CDT documented as of this encounter Miscellaneous Notes Telephone Encounter - Nirav Kennedy - 06/13/2021 9:[address] Denton, I have pt coming in to see you on 06/19 next Saturday for DM2 and Lipid. Please place orders for labs needed prior. Thank you, Nirav PASS schedule 7:30 labs and send POM. ALK ARCHITECT documented in this encounter Plan of Treatment Not on filedocumented as of this encounter Visit Diagnoses Not on filedocumented in this encounter Care Teams Operator Vacuum Relationship Specialty Start Date End Date Elsewhere, Pcp PCP - General 02/22/21 documented as of this encounter
--- OUTSIDE RECORDS SUMMARY | 2022-04-02 01:24 | XMS_ITS | Encounter Summary ---
:1965 Author Organization [facility] Address [address] [place] [address] Care Team Providers Name Role Phone Elsewhere, Pcp Primary Care Provider Unavailable Encounter Details Date Type Department Care Team Description 06/13/2021 Orders Only Division of Rahat Denton Diabetes Janel itus Type 2 Hyperglycemia (HCC) (Primary Dx); Endocrinology in P, M.D. Hyperlipidemia On Treatment [place], [place] [address] [facility] [address] [place] [phone] Social History Tobacco Use Types Packs/Day Years [...] or relatives? How often do you attend caodaism or More than 4 times per year 02/09/2021 jew services? Do you belong to any clubs or Yes 02/09/2021 organizations such as caodaism groups, unions, fraternal or athletic groups, or [...] place to sleep or slept in a correction (including now)? Education Answer Date Recorded What is the highest level of school you have completed or th e 9th grade 02/09/2021 highest degree you have received? Sex Assigned at Date Recorded Male 02/09/2021 2:11 PM CDT documented as of this encounter Plan of Treatment Scheduled Orders Name Type Priority Associated Diagnoses Order S chedule Hemoglobin A1c Lab Routine Diabetes Mellitus Type 2 E xpected: 06/20/2021 Hyperglycemia (H CC) (Approximate), Hyperlipidemia On Expires: 0 06/13/2022 Treatment Lipid Panel Lab Routine Diabetes Mellitus Type 2 Exp ected: 06/20/2021 Hyperglycemia (H CC) (Approximate), Hyperlipidemia On Expires: 0 06/13/2022 Treatment Creatinine with Lab Routine Diabetes Mellitus Type 2 Expected: 06/20/2021 Estimated GFR Hyperglycemia (H CC) (Approximate), Hyperlipidemia On Expires: 0 06/13/2022 Treatment documented as of this encounter Visit Diagnoses Diagnosis Diabetes Mellitus Type 2 Hyperglycemia ( HCC) - Primary Hyperlipidemia On Treatment documented in this encounter Care Teams District Agent Relationship Specialty Start Date End Date Elsewhere, Pcp PCP - General 02/22/21 documented as of this encounter
--- OUTSIDE RECORDS SUMMARY | 2022-04-02 01:24 | XMS_ITS | Encounter Summary ---
:1965 Author Organization [facility] Address [address] [place] [address] Care Team Providers Name Role Phone Elsewhere, Pcp Primary Care Provider Unavailable Encounter Details Date Type Department Care Team Description 05/18/2021 Orders Only Department of Cardiovascular Osman Bond M.D. Medicine in [place], [facility] [address] [place], [place] [address] [facility] [address] [place] [address] [phone] Social History Tobacco Use Types Packs/Day Years [...] or relatives? How often do you attend denominational or More than 4 times per year 02/09/2021 gnosticist services? Do you belong to any clubs or Yes 02/09/2021 organizations such as denominational groups, unions, fraternal or athletic groups, or [...] place to sleep or slept in a care home (including now)? Education Answer Date Recorded What is the highest level of school you have completed or th e 9th grade 02/09/2021 highest degree you have received? Sex Assigned at Date Recorded Male 02/09/2021 2:11 PM CDT documented as of this encounter Plan of Treatment Not on filedocumented as of this encounter Visit Diagnoses Not on filedocumented in this encounter Care Teams Clinical Research Technician Relationship Specialty Start Date End Date Elsewhere, Pcp PCP - General 02/22/21 documented as of this encounter
--- OUTSIDE RECORDS SUMMARY | 2022-04-02 01:24 | XMS_ITS | Encounter Summary ---
:1965 Author Organization [facility] Address [address] [place] [address] Care Team Providers Name Role Phone Elsewhere, Pcp Primary Care Provider Unavailable Encounter Details Date Type Department Care Team Description 03/14/2022 Hospital Encounter Department of Deena, Atherosc lerotic Heart Laboratory Medicine Daniel Brewer Disease Of [place] in [place], [facility] [address] Coronary Sis ry Without [place] Angina Pectoris [address] [facility] [phone] Social History Tobacco Use Types Packs/Day Years [...] or relatives? How often do you attend mu-ism or More than 4 times per year 02/09/2021 quaker services? Do you belong to any clubs or Yes 02/09/2021 organizations such as mu-ism groups, unions, fraternal or athletic groups, or [...] place to sleep or slept in a long-term (including now)? Education Answer Date Recorded What [...] easy way to ensure Diabetes Mellitus Type 2 accurate blood glucose Hyperglycemia (HCC) testing. blood-glucose meter misc Test as directed for 1 each 0 0 12/01/2020 diabetes control. blood-glucose meter Test as directed for 1 each 0 2020 miscIndications: diabetes control. Diabetes Mellitus Type 2 Hyperglycemia (HCC) metFORMIN XR Take 4 tablets (2,000 360 tablet 3 03/21/2021 (GLUCOPHAGE-XR) 500 mg mg total) by mouth 24 hr tabletIndications: daily with breakfast. Diabetes Mellitus Type 2 Hold metformin for 2 Hyperglycemia (HCC) days. Resume taking on 03/23/21. multivitamin tablet Take 1 tablet by mouth 0 daily. Diabetic Complete Multivitamin spironolactone Take 1 tablet (25 mg 30 tablet 11 02/23/2021 (ALDACTONE) 25 mg tablet total) by mouth daily. documented as of this encounter Plan of Treatment Not on filedocumented as of this encounter Procedures Procedure Name Priority Date/Time Associated Diagnosis Comme nts BASIC METABOLIC STAT 03/14/2022 11:49 Atherosclerotic Heart Results for this PANEL, S/P AM FLIGHT COMMUNICATIONS OFFICER Disease Of [place] procedure are in Coronary Artery Without the results Angina Pectoris section. documented in this encounter Results Basic Metabolic Panel (03/14/2022 11:49 AM FLIGHT COMMUNICATIONS OFFICER) P athologist Signature Potassium, P 4.0 3.6 - 5.2 03/14/2022 NPRG mmol/L 6:20 PM FLIGHT COMMUNICATIONS OFFICER Sodium, P 141 135 - 145 03/14/2022 NPRG mmol/L 6:20 PM FLIGHT COMMUNICATIONS OFFICER Chloride, P 104 98 - 107 03/14/2022 NPRG mmol/L 6:20 PM FLIGHT COMMUNICATIONS OFFICER Bicarbonate, P 29 22 - 29 03/14/2022 NPRG mmol/L 6:20 PM FLIGHT COMMUNICATIONS OFFICER Anion Gap, P 8 7 - 15 03/14/2022 NPRG 6:20 PM FLIGHT COMMUNICATIONS OFFICER BUN (Blood Urea 9 8 - 24 03/14/2022 NPRG Nitrogen), P mg/dL 6:20 PM FLIGHT COMMUNICATIONS OFFICER Creatinine 0.94 0.74 - 03/14/2022 NPRG 1.35 mg/dL 6:20 PM FLIGHT COMMUNICATIONS OFFICER Estimated GFR >90 >=60 03/14/2022 NPRG (eGFR) mL/min/BSA 6:20 PM FLIGHT COMMUNICATIONS OFFICER Comment: Estimated GFR calculated using the 2020 CKD_EPI creatinine equation. Calcium, Total, P 9.2 8.6 - 10.0 mg/dL 03/14/2022 6:20 PM FLIGHT COMMUNICATIONS OFFICER NPRG Glucose, P 124 70 - 140 mg/dL 03/14/2022 6:20 PM FLIGHT COMMUNICATIONS OFFICER N PRG Specimen Anatomical Collection Method Collection Time Receive d Time (Source) Location / / Volume Laterality Blood (Blood, 03/14/2022 11:49 03/14/2022 Venous) AM FLIGHT COMMUNICATIONS OFFICER 11:58 AM FLIGHT COMMUNICATIONS OFFICER Humberto Jones MD LAB BLOOD ADD-ON Performing Organization Address City/State/ZIP Code Phon e Number [facility]- [address] [place], [place] [address] [place] [facility] NPRG [facility] [place] [address] documented in this encounter Visit Diagnoses Diagnosis Atherosclerotic Heart Disease Of [place] Coronary Artery Without Angina Pectoris documented in this encounter Care Teams Leak Patcher Relationship Specialty Start Date End Date Elsewhere, Pcp PCP - General 02/22/21 documented as of this encounter
--- OUTSIDE RECORDS SUMMARY | 2022-04-02 01:25 | XMS_ITS | Encounter Summary ---
:1965 Author Organization [facility] Address [address] [place] [address] Care Team Providers Name Role Phone Elsewhere, Pcp Primary Care Provider Unavailable Encounter Details Date Type Department Care Team Description 05/15/2021 Hospital Encounter Department of Osman Wesley [facility] Heart Laboratory Medicine Anita Ahmadi Disease [place] Coronary and Pathology, [address] [facility] Artery With Other Forms [facility] in [place], [place] Angina Pectoris (Stable [facility] [id number] Angina/[facility] [place] [phone] Exertion) ([facility]) [address] [facility] (Work) [place], [place] [phone] (Fax) [phone] Social History Tobacco Use Types Packs/Day Years [...] or relatives? How often do you attend amish or More than 4 times per year 02/09/2021 zoroastrian services? Do you belong to any clubs or Yes 02/09/2021 organizations such as amish groups, unions, fraternal or athletic groups, or [...] place to sleep or slept in a jail (including now)? Education Answer Date Recorded What is the highest level of school you have completed or th e 9th grade 02/09/2021 highest degree you have received? Sex Assigned at Date Recorded Male 02/09/2021 2:11 PM CDT documented as of this encounter Medications at Time of Discharge Medication Sig Dispensed Refills Start Date End Date acetaminophen (TYLENOL) TAKE 2 TABLETS BY 100 tablet 0 12/05 500 mg tablet MOUTH EVERY SIX HOURS aspirin [address] tablet TAKE 1 TABLET BY 30 tablet 0 2020 MOUTH EVERY NIGHT AT BEDTIME atorvastatin (LIPITOR) TAKE 1 TABLET BY 15 tablet 0 021 80 mg tablet MOUTH EVERY NIGHT AT BEDTIME blood glucose ctl Glucose control 1 each 0 12/06/2020 high,nml,low solution provides an solutionIndications: easy way to ensure Diabetes Mellitus Type accurate blood 2 Hyperglycemia (HCC) glucose testing. blood sugar diagnostic 3 test daily. 270 test 3 12/06/2020 stripsIndications: Diabetes Mellitus Type 2 Hyperglycemia (HCC) blood sugar diagnostic USE DIRECTED TWO 100 each 1 08/2020 strips TIMES A DAY blood-glucose meter Test as directed for 1 each 0 2020 [facility] diabetes control. blood-glucose meter Test as directed for 1 each 0 2020 miscIndications: diabetes control. Diabetes Mellitus Type 2 Hyperglycemia (HCC) furosemide (LASIX) 20 Take 1 tablet (20 mg 0 02/27 mg tablet total) by mouth daily as needed (take a dose, if there is more than 3 pounds weight gain). losartan (COZAAR) 100 Take 1 tablet (100 mg 90 tablet 3 01/2021 mg tablet total) by mouth daily. metFORMIN XR Take 4 tablets (2,000 360 tablet 3 03/21/2021 (GLUCOPHAGE-XR) 500 mg mg total) by mouth 24 hr daily with breakfast. tabletIndications: Hold metformin for 2 Diabetes Mellitus Type days. Resume taking 2 Hyperglycemia (HCC) on 03/23/21. metoprolol succinate TAKE 1 TABLET BY 60 tablet 1 1 (TOPROL-XL) 100 mg 24 MOUTH DAILY, DO NOT hr tablet CRUSH OR CHEW multivitamin tablet Take 1 tablet by 0 mouth daily. Diabetic Complete Multivitamin spironolactone Take 1 tablet (25 mg 30 tablet 11 02/23/2021 (ALDACTONE) 25 mg total) by mouth tablet daily. Ventolin HFA 90 INHALE 2 PUFFS BY 18 g 4 02/23/2021 mcg/actuation inhaler MOUTH EVERY FOUR HOURS NEEDED FOR WHEEZING OR SHORTNESS OF BREATH clopidogreL (PLAVIX) 75 TAKE 1 TABLET BY 51 tablet 0 202012/05/2021 mg tablet MOUTH DAILY flash glucose scanning 1 kit daily. 1 each 0 03/13/2021 03/13/2022 reader (FreeStyle Jose 2 [place]) miscIndications: Diabetes Mellitus Type 2 Hyperglycemia (HCC) flash glucose sensor 1 kit every 14 6 kit 3 03/13/2021 03/13/2022 (FreeStyle Jose 2 (fourteen) days. Sensor) kitIndications: Diabetes Mellitus Type 2 Hyperglycemia (HCC) lancetsIndications: 2 each daily. 100 each 1 12/06/2020 Diabetes Mellitus Type 2 Hyperglycemia (HCC) oxyCODONE-acetaminophen TAKE ONE-HALF TABLET 10 tablet 0 12/05/2021 (PERCOCET) 10-325 mg BY MOUTH EVERY FOUR per tablet HOURS NEEDED FOR PAIN documented as of this encounter Plan of Treatment Not on filedocumented as of this encounter Procedures Procedure Name Priority Date/Time Associated Diagnosis Comme nts BASIC METABOLIC Routine 05/15/2021 1:43 PM Atherosclerotic Hea rt Results for this PANEL, S/P CUSTOMER PROJECT MANAGER Disease [place] Coronary proc edure are in Artery With Other Forms the results Angina Pectoris (Stable sect ion. Angina/Angina Of Exertion) ([facility]) documented in this encounter Results Basic Metabolic Panel (05/15/2021 1:43 PM CUSTOMER PROJECT MANAGER) athologist Signature Potassium, S 4.2 3.6 - 5.2 05/15/2021 DTL mmol/L 2:47 PM CUSTOMER PROJECT MANAGER Sodium, S 144 135 - 145 05/15/2021 DTL mmol/L 2:47 PM CUSTOMER PROJECT MANAGER Chloride, S 104 98 - 107 05/15/2021 DTL mmol/L 2:47 PM CUSTOMER PROJECT MANAGER Bicarbonate, S 27 22 - 29 05/15/2021 DTL mmol/L 2:47 PM CUSTOMER PROJECT MANAGER Anion Gap 13 7 - 15 05/15/2021 DTL 2:47 PM CUSTOMER PROJECT MANAGER BUN (Blood Urea 11 8 - 24 05/15/2021 DTL Nitrogen), S mg/dL 2:47 PM CUSTOMER PROJECT MANAGER Creatinine 1.10 0.74 - 05/15/2021 DTL 1.35 mg/dL 2:47 PM CUSTOMER PROJECT MANAGER eGFR-Non 75 >=60 05/15/2021 DTL Black/ mL/min/BSA 2:47 PM CUSTOMER PROJECT MANAGER Serbian Comment: ----ADDITIONAL INFORMATION---- Estimated GFR calculated using the 2009 CKD_EPI creatinine equation. eGFR-Black/ 87 >=60 mL/min/BSA 2021 2:47 PM CUSTOMER PROJECT MANAGER DTL Comment: ----ADDITIONAL INFORMATION---- Estimated GFR calculated using the 2009 CKD_EPI creatinine equation. Calcium, Total, S 9.4 8.6 - 10.0 mg/dL 05/15/2021 2:47 PM CUSTOMER PROJECT MANAGER DTL Glucose, S 81 70 - 140 mg/dL 05/15/2021 2:47 PM CUSTOMER PROJECT MANAGER D TL Specimen Anatomical Collection Method Collection Time Receive d Time (Source) Location / / Volume Laterality Blood (Blood, 05/15/2021 1:43 PM 05/15/19 2:20 Venous) CUSTOMER PROJECT MANAGER PM CUSTOMER PROJECT MANAGER Osman Wesley M.D. LAB BLOOD ADD-ON Performing Organization Address City/State/ZIP Code Phon e Number [facility] - [address] [place], [place] [address] [facility] [address] Laboratories-[facility] [address] documented in this encounter Visit Diagnoses Diagnosis Atherosclerotic Heart Disease [place] Cor onary Artery With Other Forms Angina Pectoris (Stable Angina/Angina Of Exertion) (HCC) documented in this encounter Care Teams Industrial Welder Relationship Specialty Start Date End Date Elsewhere, Pcp PCP - General 02/22/21 documented as of this encounter
--- OUTSIDE RECORDS SUMMARY | 2022-04-02 01:25 | XMS_ITS | Encounter Summary ---
:1965 Author Organization [facility] Address [address] [place] [address] Care Team Providers Name Role Phone Elsewhere, Pcp Primary Care Provider Unavailable Reason for Visit Outpatient (Routine) - Closed Specialty Diagnoses / Procedures Referred By Contact Refer red To Contact Cardiovascular Disease Osman Wesley M .D. [facility] [address] [place] [phone] Referral ID Status Reason Start Date Expiration Date Visits Requ ested Visits Authorized [id number] Closed 02/09/2021 02/09/2022 1 1 Encounter Details Date Type Department Care Team Description 05/15/2021 Office Visit Department of Osman Wesley, Cardiomyopa thy Ischemic (Primary Dx); Cardiovascular Medicine M.DLisa Pain Chest Atypical in [facility] rotary drill operator [address] [place] [address] [place] [phone] Social History Tobacco Use Types Packs/Day Years [...] or relatives? How often do you attend bahai or More than 4 times per year 02/09/2021 cheondoism services? Do you belong to any clubs or Yes 02/09/2021 organizations such as bahai groups, unions, fraternal or athletic groups, or [...] PM CDT documented as of this encounter Progress Notes Osman Wesley M.D. - 05/15/2021 4:30 PM CST SUBJECTIVE HISTORY OF PRESENT ILLNESS Mr. Mason Fairbanks is a 56 y.o. male who returns to see us for follow-up of ischemic cardiomyopathy. Patient returns feeling very well. He does have intermittent substernal chest pain unrelated to effort which he does relate to eating. He denies breathlessness. He walked from the parking ramp today [facility] without having to stop because of any cardiopulmonary symptoms MEDICATIONS Current Medications: ??? acetaminophen (TYLENOL) 500 mg tablet, Take 2 tablets (1,000 mg total) by mouth every 6 (six) hours. ??? aspirin [address] tablet, Take 1 tablet (81 mg total) by mouth at bedtime. ??? atorvastatin (LIPITOR) 40 mg tablet, Take 2 tablets (80 mg total) by mouth at bedtime. ??? blood glucose ctl high,nml,low solution, Glucose control solution provides an easy way to ensureaccurate blood glucose testing. ??? blood sugar diagnostic strips, 2 test daily. ??? blood sugar diagnostic strips, 3 test daily. ??? blood-glucose meter misc, Test as directed for diabetes control. ??? blood-glucose meter misc, Test as directed for diabetes control. ??? flash glucose scanning reader (FreeStyle Jose 2 [place]) misc, 1 kit daily. ??? flash glucose sensor (FreeStyle Jose 2 Sensor) kit, 1 kit every 14 (fourteen) days. ??? furosemide (LASIX) 20 mg tablet, Take 1 tablet (20 mg total) by mouth daily as needed (take a dose, if there is more than 3 pounds weight gain). ??? lancets, 2 each daily. ??? losartan (COZAAR) 100 mg tablet, Take 1 tablet (100 mg total) by mouth daily. ??? metFORMIN XR (GLUCOPHAGE-XR) 500 mg 24 hr tablet, Take 4 tablets (2,000 mg total) by mouth dailywith breakfast. Hold metformin for 2 days. Resume taking on 03/23/21. ??? metoprolol succinate (TOPROL-XL) 100 mg 24 hr tablet, Take 1 tablet (100 mg total) by mouth daily. Do not crush or chew. ??? multivitamin tablet, Take 1 tablet by mouth daily. Diabetic Complete Multivitamin ??? spironolactone (ALDACTONE) 25 mg tablet, Take 1 tablet (25 mg total) by mouth daily. ??? Ventolin HFA 90 mcg/actuation inhaler, Inhale 2 puffs every 4 (four) hours as needed for wheezing or shortness of breath. No current facility-administered medications for this visit. Facility-Administered Medications Ordered in Other Visits: ??? sodium chloride 0.9 % injection 10 mL, PRN ??? sulfur hexafluoride microspheres injection (LUMASON), PRN REVIEW OF SY STEMS REVIEW OF SYSTEMS PAST MEDICAL, SURGICAL, SOCIAL, AND FAMILY HISTORY The following portions of the patient's history were reviewed and updated as appropriate: allergies,current medications, family history, medical history, social history, surgical history and problem list. OBJECTIVE Blood pressure 150/70 in the echo lab PHYSICAL EXAMINATION Jugular venous pulse is normal. No carotid bruits. Cardiac auscultation is normal with no murmurs orgallops. Lungs clear DIAGNOSTICS I have reviewed the patient's current laboratory, imaging, and other diagnostic studies. Pertinent laboratory and imaging studies are notable for: ASSESSMENT / PLAN #1 Cardiomyopathy Ischemic #2 Pain Chest Atypical #3 retention control He actually seems to be doing well. We went over the coronary angiogram in detail from last fall. There was no critical flow limiting disease with multiple IFR measurements. I suspect he is correct that some of his chest pain relates to esophageal or upper GI symptoms. However it is worth testing nitroglycerin to see if this provides any relief. The main concern is his blood pressure which is not ideally controlled and it is not clear what the dose of beta-sandeep is that he is taking. They will clarify this tonight and I will contact them tomorrow to make sure were making the appropriate adjustments in his antihypertensive program in the setting of an ischemic cardiomyopathy. I demonstrated the echo which shows stable depression in systolic function of the left ventricle GN LEADER documented in this encounter Plan of Treatment Not on filedocumented as of this encounter Results (ABNORMAL) NT-Pro B-Type Natriuretic Peptide (BNP) (05/15/2021 5:47 PM DESIGN LEADER) P athologist Signature NT-Pro BNP 835 (H) <=68 pg/mL 05/15/2021 DTL 6:48 PM DESIGN LEADER Comment: NT-proBNP values less than 300 pg/mL hav e a 99% negative predictive value for excluding acute congestive heart crissy lure. A cutoff of 1200 pg/mL for patients with an eGFR<60 yields a diagno stic sensitivity and specificity of 89% and 72% for acute congestive heart f ailure. ??A diagnostic NT-proBNP cutoff of 900 pg/mL has been suggested i n adults 50-75 years of age in the absence of renal failure. Specimen Anatomical Collection Method Collection Time Receive d Time (Source) Location / / Volume Laterality Blood (Blood, 05/15/2021 5:47 PM 05/15/19 22 6:24 Venous) DESIGN LEADER PM DESIGN LEADER Osman Wesley M.D. LAB BLOOD ADD-ON Performing Organization Address City/[facility] Phon e Number [facility] - [address] Troponin T, 5th Generation (05/15/2021 5:47 PM DESIGN LEADER) P athologist Signature Troponin T, 5th 14 <=15 ng/L 05/15/2021 DTL gen 7:54 PM DESIGN LEADER Specimen Anatomical Collection Method Collection Time Receive d Time (Source) Location / / Volume Laterality Blood (Blood, 05/15/2021 5:47 PM 05/15/19 22 6:25 Venous) DESIGN LEADER PM DESIGN LEADER Osman Wesley M.D. LAB BLOOD ADD-ON Performing Organization Address City/[facility] Phon e Number [facility] - [address] documented in this encounter Visit Diagnoses Diagnosis Cardiomyopathy Ischemic - Primary Pain Chest Atypical documented in this encounter Care Teams Caster Operator Relationship Specialty Start Date End Date Elsewhere, Pcp PCP - General 02/22/21 documented as of this encounter
--- OUTSIDE RECORDS SUMMARY | 2022-04-02 01:25 | XMS_ITS | Encounter Summary ---
:1965 Author Organization [facility] Address [address] [place] [address] Care Team Providers Name Role Phone Elsewhere, Pcp Primary Care Provider Unavailable Encounter Details Date Type Department Care Team Description 03/22/2021 Hospital Department of Jorje, Cardiomyopathy Encounter Cardiovascular Aurelio Sharma, Ischemic Diseases in M.D., Ph.D. [place], [place] [address] [facility] [address] [place] [phone] Social History Tobacco Use Types Packs/Day Years [...] or relatives? How often do you attend latter day or More than 4 times per year 02/09/2021 gnosticist services? Do you belong to any clubs or Yes 02/09/2021 organizations such as latter day groups, unions, fraternal or athletic groups, or [...] place to sleep or slept in a fdc (including now)? Education Answer Date Recorded What [...] as directed for 1 each 0 2020 [facility] diabetes control. blood-glucose meter [...] TAKE 1 TABLET BY 51 tablet 0 2020 12/05/2021 mg tablet MOUTH DAILY flash glucose scanning 1 kit daily. 1 each 0 03/13/2021 03/13/2022 reader (FreeStyle Jose 2 [place]) miscIndications: Diabetes Mellitus Type 2 Hyperglycemia (HCC) [...] FOUR per tablet HOURS NEEDED FOR PAIN oxyCODONE (ROXICODONE) Take 1 tablet (5 mg 12 tablet 0 02/2803/24/2021 5 mg immediate release total) by mouth every tabletIndications: 6 (six) hours as Acute Pain needed for pain for up to 3 days Indication: acute pain. documented as of this encounter Plan of Treatment Not on filedocumented as of this encounter Procedures Procedure Name Priority Date/Time Associated Diagnosis Comme nts ICD SINGLE CHAMBER Routine 03/22/2021 8:19 Cardiomyopathy Resu lts for this INTERROGATION WITH AM ONLINE USER EXPERIENCE STRATEGIST Ischemic procedure are in PROGRAMMING the results section. documented in this encounter Results ICD SINGLE CHAMBER INTERROGATION WITH PROGRAMMING (03/22/2021 8:19 AM ONLINE USER EXPERIENCE STRATEGIST) Component Value Ref Test Analysis Performed At [facility] gist Range Method Time Signature Date Time [id number] [facility] Interrogation LAB SYSTEM Session Implantable Biotronik [facility] Pulse Generator LAB SYSTEM Jig Boring Machine Operator For Metal Implantable [id number] Acticor 7 [facility] Pulse Generator VR-T DX LAB SYSTEM Model Implantable [id number] [facility] Pulse Generator LAB SYSTEM Serial Number Type In Clinic [facility] Interrogation LAB SYSTEM Session Re-programmed Unknown FOUNDATION During Session LAB SYSTEM Clinic Name [facility] LAB SYSTEM [place] Implantable Defibrillator [facility] Pulse Generator LAB SYSTEM Type Implantable [id number] [facility] Pulse Generator LAB SYSTEM Implant Date Implantable Lead Biotronik [facility] Jig Boring Machine Operator For Metal LAB SYSTEM Implantable Lead [id number] Plexa DF-1 FOUND ATION Model S DX 65/15 LAB SYSTEM Implantable Lead [id number] [facility] Serial Number LAB SYSTEM Implantable Lead [id number] [facility] ON Implant Date LAB SYSTEM Implantable Lead UNKNOWN FOUNDATION Location Detail LAB SYSTEM 1 Implantable Lead Lead length: 65 [facility]OUND[facility] ION Special Function cm LAB SYSTEM Implantable Lead Right Ventricle [facility] Location LAB SYSTEM [place] Setting VVI [facility] Mode (NBG Code) LAB SYSTEM [place] Setting 40 {beats}/ FOUNDATION Lower Rate Limit min LAB SYSTEM [place] Setting 40 {beats}/ FOUNDATION Hysterisis Rate min LAB SYSTEM [place] Setting 40 {beats}/ FOUNDATION Night Rate min LAB SYSTEM [place] Setting AT Unknown FOUNDATION Mode Switch Mode LAB SYSTEM Lead Channel Bipolar [facility] Setting Sensing LAB SYSTEM Polarity Lead Channel 1.0 mV [facility]OUNDATION Setting Sensing LAB SYSTEM Sensitivity Lead Channel Bipolar [facility] Setting Sensing LAB SYSTEM Polarity Lead Channel 0.8 mV [facility]ATION Setting Sensing LAB SYSTEM Sensitivity Lead Channel Unknown [facility] Setting Sensing LAB SYSTEM Polarity Lead Channel Unknown [facility] Setting Sensing LAB SYSTEM Cathode Location Lead Channel Unknown [facility] Setting Sensing LAB SYSTEM Cathode Terminal Ventricular Unknown [facility]ATION chambers paced LAB SYSTEM during CRABBER pacing. Lead Channel Unknown [facility] Setting Pacing LAB SYSTEM Polarity Lead Channel Unknown [facility] Setting Sensing LAB SYSTEM Cathode Location Lead Channel Unknown [facility] Setting Sensing LAB SYSTEM Cathode Terminal Lead Channel Bipolar [facility] Setting Pacing LAB SYSTEM Polarity Lead Channel 0.4 ms [facility]OUNDATION Setting Pacing LAB SYSTEM Pulse Width Lead Channel 1.4 V [facility] Setting Pacing LAB SYSTEM Amplitude Lead Channel Unknown [facility] Setting Pacing LAB SYSTEM Polarity Lead Channel Unknown [facility] Setting Sensing LAB SYSTEM Cathode Location Lead Channel Unknown FOUNDATION Setting Sensing LAB SYSTEM Cathode Terminal Zone Setting VF [facility] Type Category LAB SYSTEM Zone Setting 260 ms [facility]ATION Detection LAB SYSTEM Interval Zone Setting [place] [facility] Type Category LAB SYSTEM Zone Setting 320 ms [facility] Detection LAB SYSTEM Interval Zone Setting [place] [facility] Type Category LAB SYSTEM Zone Setting 400 ms [facility] Detection LAB SYSTEM Interval Lead Channel 8.8 mV [facility] Sensing LAB SYSTEM Intrinsic Amplitude Lead Channel 620 ohm [facility] Impedance Value LAB SYSTEM Lead Channel 22.7 mV [facility] Sensing LAB SYSTEM Intrinsic Amplitude Lead Channel 0.5 V [facility] Pacing Threshold LAB SYSTEM Amplitude Lead Channel 0.4 ms [facility] Pacing Threshold LAB SYSTEM Pulse Width Battery Status Unknown [facility] LAB SYSTEM Battery Voltage 3.07 V [facility] LAB SYSTEM Capacitor Charge FULL_ENERGY FOUNDATION Type LAB SYSTEM Capacitor Charge Reformation [facility] Type LAB SYSTEM Capacitor Charge Shock [facility] Type LAB SYSTEM [place] Statistic 0 % [facility] RV Percent Paced LAB SYSTEM Atrial Tachy 0 [facility] Statistic Number LAB SYSTEM Of Mode Switches Therapy 0 [facility] Statistic Recent LAB SYSTEM Shocks Delivered Therapy 0 [facility] Statistic Total LAB SYSTEM Shocks Delivered Therapy 0 [facility] Statistic Total LAB SYSTEM Shocks Aborted Episode 0 [facility] Statistic Recent LAB SYSTEM Count Episode Other FOUNDATION Statistic Type LAB SYSTEM Category Anatomical Region Laterality Modality Other Specimen (Source) Anatomical Collection Method Collection Time Re ceived Time Location / / Volume Laterality 03/22/2021 8:08 AM ONLINE USER EXPERIENCE STRATEGIST Narrative 03/27/2021 8:53 AM ONLINE USER EXPERIENCE STRATEGIST PURPOSE OF VISIT: Routine post-implant device interrogation and function analysis. PRESENTING RHYTHM: ASVS 93 bpm (Sinus rh ythm) ATRIAL ARRHYTHMIAS: ??No significant epi sodes recorded since last session. ?? VENTRICULAR ARRHYTHMIAS: No significant episodes recorded since last session. ?? ASSESSMENT: Device is functioning within normal limits. Left pectoral incision covered with dermabond; clean, dry and intact. ??Results discussed with patient and family. PROGRAMMING CHANGES. None made. FOLLOW-UP: Due in three months as routin e post implant device interrogation in-clinic Zoila Aguirre RN Physician Statement: ??This patient unde rwent device interrogation. I agree that the device interrogation was medica lly indicated to provide appropriate care and continue routine de vice interrogations as indicated. Aurelio Recinos M.D., Ph.D. CV IMPLANTABLE CAR DIAC DEVICE documented in this encounter Visit Diagnoses Diagnosis Cardiomyopathy Ischemic documented in this encounter Care Teams Materials Manager Relationship Specialty Start Date End Date Elsewhere, Pcp PCP - General 02/22/21 documented as of this encounter
--- OUTSIDE RECORDS SUMMARY | 2022-04-02 01:25 | XMS_ITS | Encounter Summary ---
:1965 Author Organization [facility] Address [address] [place] [address] Care Team Providers Name Role Phone Elsewhere, Pcp Primary Care Provider Unavailable Reason for Referral Outpatient (Routine) - Closed Specialty Diagnoses / Procedures Referred By Contact Refer red To Contact Diagnoses Failure Heart (HCC) Osman Wesley M.D. [facility] Procedures Echo Transthoracic (TTE) [address] [place], [place] [address] Referral ID Status Reason Start Date Expiration Date Visits Requ ested Visits Authorized [id number] Closed 02/09/2021 02/09/2022 1 1 ACE ATTENDANT Reason for Visit Outpatient (Routine) - Closed Specialty Diagnoses / Procedures Referred By Contact Refer red To Contact Diagnoses Failure Heart (HCC) Osman Wesley M.D. [facility] Procedures Echo Transthoracic (TTE) [address] [place] [address] Referral ID Status Reason Start Date Expiration Date Visits Requ ested Visits Authorized [id number] Closed 02/09/2021 02/09/2022 1 1 Encounter Details Date Type Department Care Team Description 05/15/2021 Hospital Encounter Department of Osman Wesley Heart (HCC) Cardiovascular Diseases Anita Ahmadi in [facility] [address] [facility] [address] [place] [id number] [phone] Social History Tobacco Use Types Packs/Day Years [...] or relatives? How often do you attend oriental orthodox or More than 4 times per year 02/09/2021 zoroastrian services? Do you belong to any clubs or Yes 02/09/2021 organizations such as oriental orthodox groups, unions, fraternal or athletic groups, or [...] place to sleep or slept in a long term (including now)? Education Answer Date Recorded What [...] as directed for 1 each 0 2020 [facility] [place] blood-glucose meter [...] 0 03/13/2021 03/13/2022 reader ([employer] [place] [address] [place]) miscIndications: Diabetes Mellitus Type 2 Hyperglycemia (HCC) [...] Name Priority Date/Time Associated Diagnosis Comme nts (TTE) 2D LIMITED Routine 05/15/2021 1:20 PM Failure Heart (HCC ) Results for this WITH COLOR , FURNACE ATTENDANT procedure are i n DOPPLER AND the results CONTRAST section. documented in this encounter Results (TTE) 2D LIMITED WITH COLOR , DOPPLER AND CONTRAST (05/15/2021 1:20 PM FURNACE ATTENDANT) P athologist Signature Ejection 42 MC CV EIMS Fraction Wall Motion 1.94 MC CV EIMS Score Index LV End-Diastolic 59 MC CV EIMS Diameter LV End-Diastolic 200 MC CV EIMS Volume LV End-Systolic 115 MC CV EIMS Volume MV E Velocity 0.90 MC CV EIMS MV A Velocity 0.80 MC CV EIMS MV E/A 1.13 MC CV EIMS MV e' Velocity 0.07 MC CV EIMS Medial MV E/e' Medial 12.90 MC CV EIMS Left ventricular 34 MC CV EIMS stroke volume index Cardiac Output 5.15 MC CV EIMS Cardiac Index 2.47 MC CV EIMS Tricuspid 0.13 MC CV EIMS Annular S? TR Vmax 3.09 MC CV EIMS RA Pressure 5 MC CV EIMS RV Systolic 43 MC CV EIMS Pressure WMSI At Rest 1.94 MC CV EIMS WMSI At Peak 1.94 MC CV EIMS Stress Anatomical Region Laterality Modality Echocardiography Specimen (Source) Anatomical Collection Method Collection Time Re ceived Time Location / / Volume Laterality 05/15/2021 12:18 PM FURNACE ATTENDANT Impressions 05/15/2021 8:25 PM FURNACE ATTENDANT Echocardiogram performed per left ventricular function protocol. ??Last full echocardiogram performed 11/29/2020. ??Intravenous Angelina son ultrasound enhancement agent(s) administered to assess ventricular apex. LEFT VENTRICLE: ??Moderately enlarged le ft ventricular chamber size. ??Calculated 2-D biplane volumetric left ventricular ejection fra ction 42%. ??Regional wall motion abnormalities were present (see wall motion graphics). ??In determinate left ventricular diastolic function. RIGHT VENTRICLE: ??Normal right ventricu lar chamber size. ??Normal right ventricular systolic function. ??Estimated right ventricular systolic pressure 43 mmHg (right atrial pressure of 5 mmHg). ATRIA: ??Normal left atrial size by visu al estimate. ??Normal right atrial size by visual estimate. CARDIAC VALVES: ??Trileaflet aortic valv e. ??Normal aortic valve. ??No aortic valve regurgitation. Thickened mitral valve. ??Trivial mitral valve regurgitation. ??Normal tricuspid valve. ??Mild tricuspid valve regurgitation. OTHER ECHO FINDINGS: ??Device lead (s) i dentified in right atrium and right ventricle. ??Normal inferior vena cava size with normal insp iratory collapse (>50%). ??No intracardiac mass or thrombus, but the left atrial appendage cannot be visualized adequately with transthoracic echo to exclude thrombus in this location. ?? No ??pericardial effusion. ??Attempts were made to optimize the echocardiographic images an d two or more left ventricular segments were not visualized adequately to evaluate cardia c structure. ??The patient's current allergies and medications have been screened. ??Imagin g enhancement agent administered per Echocardiography Contrast Administration Protocol Referen ce Document [id number]. Patient met an inclusion criterion and did not have contraindicat ions in screening sections. For the complete report, see the [employer] Documents. Narrative 05/15/2021 8:25 PM FURNACE ATTENDANT For the complete report, see the [employer] Documents. Final Impressions 1. Moderately enlarged left ventricular chamber size, regional wall motion abnormalities were present (see wall motion graphics), calc ulated 2-D biplane volumetric ejection fraction 42%. 2. Normal right ventricular chamber size , normal systolic function, estimated right ventricular systolic pressure 43 mmHg (right atrial pressure of 5 mmHg). 3. No ??significant valvular heart disea se. 4. Normal inferior vena cava size with n ormal inspiratory collapse (>50%). 5. No ??pericardial effusion. 6. No intracardiac mass or thrombus, but the left atrial appendage cannot be visualized adequately with transthoracic echo to ex clude thrombus in this location. 7. Compared to the report of 02/07/2021 no significant change has occurred. Side by side comparison of images performed. Procedure Note Jelani Schultz M.D. - 05/15/2021Forma tting of this note might be different from the original. For the complete report, see the [email or web address] Documents. Final Impressions 1. Moderately enlarged left ventricular chamber size, regional wall motion abnormalities were present (see wall motion graphics), calc ulated 2-D biplane volumetric ejection fraction 42%. 2. Normal right ventricular chamber size , normal systolic function, estimated right ventricular systolic pressure 43 mmHg (right atrial pressure of 5 mmHg). 3. No significant valvular heart disease . 4. Normal inferior vena cava size with n ormal inspiratory collapse (>50%). 5. No pericardial effusion. 6. No intracardiac mass or thrombus, but the left atrial appendage cannot be visualized adequately with transthoracic echo to ex clude thrombus in this location. 7. Compared to the report of 02/07/2021 no significant change has occurred. Side by side comparison of images performed. Findings Echocardiogram performed per left ventri cular function protocol. Last full echocardiogram performed 11/29/2020. Intravenous Lumaso n ultrasound enhancement agent(s) administered to assess ventricular apex. LEFT VENTRICLE: Moderately enlarged left ventricular chamber size. Calculated 2- D biplane volumetric left ventricular ejection fra ction 42%. Regional wall motion abnormalities were present (see wall motion graphics). Inde terminate left ventricular diastolic function. RIGHT VENTRICLE: Normal right ventricula r chamber size. Normal right ventricular systolic function. Estimated right ventricular sy stolic pressure 43 mmHg (right atrial pressure of 5 mmHg). ATRIA: Normal left atrial size by visual estimate. Normal right atrial size by visual estimate. CARDIAC VALVES: Trileaflet aortic valve. Normal aortic valve. No aortic valve regurgitation. Thickened mitral valve. Trivial mitral v alve regurgitation. Normal tricuspid valve. Mild tricuspid valve regurgitation. OTHER ECHO FINDINGS: Device lead (s) aysha ntified in right atrium and right ventricle. Normal inferior vena cava size with normal insp iratory collapse (>50%). No intracardiac mass or thrombus, but the left atrial appendage cannot be visualized adequately with transthoracic echo to exclude thrombus in this location. No pericardial effusion. Attempts were made to optimize the echocardiographic images an d two or more left ventricular segments were not visualized adequately to evaluate cardia c structure. The patient's current allergies and medications have been screened. Imaging enhancement agent administered per Echocardiography Contrast Administration Protocol Referen ce Document [id number]. Patient met an inclusion criterion and did not have contraindicat ions in screening sections. For the complete report, see the [employer] Documents. Osman Wesley M.D. CV ECHO PROCEDURES documented in this encounter Visit Diagnoses Diagnosis Failure Heart (HCC) documented in this encounter Administered Medications Inactive Administered Medications - up to 3 most recent administrations Medication Order MAR Action Action Date Dose Rate Site sodium chloride 0.9 % injection 10 Given 05/15/2021 1:17 PM FURNACE ATTENDANT 6 mL mL 10 mL, intravenous, As needed, line care, Starting on Sat05/15/21 at 1312, Prior to and following infusion and between multiple consecutive infusions: sodium chloride 0.9 % injection sulfur hexafluoride microspheres injection Given 05/15/2021 1:16 PM FURNACE ATTENDANT 4 mL (LUMASON) intravenous, As needed, contrast, Starting on Sat05/15/21 at 1312, See protocol. Reconstitute each 25 mg vial with 5 mL NS. documented in this encounter Care Teams Dry House Attendant Relationship Specialty Start Date End Date Elsewhere, Pcp PCP - General 02/22/21 documented as of this encounter
--- OUTSIDE RECORDS SUMMARY | 2022-04-02 01:25 | XMS_ITS | Encounter Summary ---
:1965 Author Organization [facility] Address [address] [place] [address] Care Team Providers Name Role Phone Elsewhere, Pcp Primary Care Provider Unavailable Encounter Details Date Type Department Care Team Description 03/21/2021 Anesthesia Event Division of Cardiovascular Bren Persaud i, APRN, JUANIS [address] [place] [address] Diseases in [facility], [facility], Tamika Bright APRN, CRNA, DNA [address] [place] [address] [place] [address] [place] [address] Anesthesia Record Procedure Summary Procedure Name Responsible Anesthesia Start Anesthesia Stop Time Anesthesiologist Time ICD IMPLANT - Bren Meredith APRN, CRNA 03/21/21 1051 1211 SINGLE CHAMBER (Left) Events Date Time Event Comment 03/21/2021 1051 An Start Machine/Equipmen t Checked Infection Precautions Foll owed Procedure/Site Verified NPO Sta tus Verified Supine Standard ASA Mon itors Applied 1107 Turnover to Proceduralist 1116 Proc Start 1125 1157 Proc Fin 1202 Turnover to ANE Staff 1202 an stop data 1211 An End I completed my h andoff to the receiving staff during [facility] 1. Identified the patient 2. Ident ified the responsible provider 3. Revi ewed the pertinent medical history 4. Discu ssed the surgical course 5. Reviewed intra-o p anesthesia management and issues during an esthesia 6. Set expectations for post-procedure period 7. Allowed opportun ity for questions and acknowledgement of understanding. Name Total midazolam PF injection 1 mg/mL 2 mg fentanyl injection 50 mcg/mL 100 mcg lidocaine 2% (mg) injection 60 mg propofol 10 mg/mL infusion 223.26 mg ceFAZolin injection 2,000 mg (ANCEF) 2 g acetaminophen 1,000 mg/100 mL injection 1,000 mg propofol bolus from bag 10 mg iohexol (OMNIPAQUE) 300 mg/mL solution 10 mL Lactated Ringers Free Drip 500 mL Agents No agents on file. Blood No blood administrations on file. Lines, Drains, and Airways Type Details Placement Removal Wound 03/21/21; 112; Chest; 03/21/21 1121 by Lateral, Left, Upper Emilia Powers, R.N. Peripheral IV Placement Date: 03/21/21; 03/21/21922 by 03/21 by Placement Time: 922; Dwight Trimble Loyek, Daniel D, Catheter Size: 20 G; R.N. R.N., CFRN Orientation: Left; Location: Forearm; Site Prep: Chlorhexidine (Preferred); Removal Date: 03/21/21; Removal Time: 1525; Removal Reason: Patient discharged documented in this encounter Social History Tobacco Use Types Packs/Day Years [...] or relatives? How often do you attend jewish or More than 4 times per year 02/09/2021 religion services? Do you belong to any clubs or Yes 02/09/2021 organizations such as jewish groups, unions, fraternal or athletic groups, or [...] place to sleep or slept in a prison (including now)? Education Answer Date Recorded What is the highest level of school you have completed or th e 9th grade 02/09/2021 highest degree you have received? Sex Assigned at Date Recorded Male 02/09/2021 2:11 PM CDT documented as of this encounter OR Notes Anesthesia Postprocedure Evaluation - Bren Meredith APRN, CRNA - 03/21/2021 12:15 PM CST Patient: Mason Fairbanks Procedure Summary Date: 03/21/21 Room / Location: [facility] [id number] / [facility] Anesthesia Start: 1051 Anesthesia Stop: 121 Procedures: ICD IMPLANT - SINGLE CHAMBER (Left ) Venography - Subclavian (N/A ) Diagnosis: Cardiomyopathy Ischemic (Cardiomyopathy Ischemic [I25.5]) Surgeons: Ellis Sawyer M.D., M.P.H. Responsible Provider: Bren Meredith APRN, CRNA Anesthesia Type: MAC ASA Status: 4 Anesthesia Type: MAC Last vitals Vitals Value Taken Time BP Temp Pulse 80 03/21/21 1214 Resp SpO2 95 % 03/21/21 1214 Vitals shown include unvalidated device data. Please reference Vitals flowsheet for most recent vital signs. Anesthesia Post Evaluation Patient Disposition: dismissal Cardiovascular status: hemodynamics (HR & BP) acceptable Respiratory status: patent airway with spontaneous effort Temperature: normothermic Oxygen requirements: room air Level of consciousness: awake Pain score: pain adequately controlled and/or at baseline Post Op nausea/vomiting: none Hydration status: euvolemic HOLOGICAL TESTS SALES AGENT Anesthesia Preprocedure Evaluation - Tamika Barry APRN, CRNA, DNA - 03/21/2021 11:20 AM CST Preprocedure Anesthesia & H&P Assessment Procedure Summary Anesthesia Start Date/Time: 03/21/21 1051 Procedures: ICD IMPLANT - SINGLE CHAMBER (Left ) Venography - Subclavian (N/A ) Diagnosis: Cardiomyopathy Ischemic [I25.5] Pre-op diagnosis: Cardiomyopathy Ischemic [I25.5] Location: [place] [address] / [facility] Surgeons: Ellis Sawyer M.D., M.P.H. Pertinent components of the patient's history including current problem list, medical history, surgical history, family history, social history, medications and allergies were reviewed. Present illnessand pre-op diagnosis were confirmed. The planned surgery / procedure was verified with the patient /legal guardian. The patient's general health condition remains unchanged RELEVANT COMORBID CONDITIONS CV (+) Atherosclerotic Heart Disease [place] Coronary Artery With Other Forms Angina Pectoris (Stable Angina/Angina Of Exertion) ([facility]) (+) Congestive Heart Failure Ejection Fraction Less Than 40 Percent (HCC) (+) Failure Heart (HCC) (+) Hypertension Essential Primary ENDO (+) Diabetes Mellitus Type 2 Hyperglycemia (HCC) GENETICS (+) Diabetes Mellitus Type 2 Hyperglycemia (HCC) (+) Hyperlipidemia On Treatment OBJECTIVE PHYSICAL EXAMINATION Airway (HEENT) Mallampati: II TM Distance: >3 FB Neck ROM: Full Mouth Opening: >3 cm Upper Lip Bite Test Class: II Cardiovascular Rhythm: Regular Rate: Normal Cardiovascular Assessment: murmur Functional Capacity: <4 METS Pulmonary Pulmonary Assessment: Diminished and non labored General / Constitutional Constitutional Assessment: Normal Verbalized anxiety related to procedure Neurological Neurologic Assessment:??alert and alert and oriented x 3 Dental Dental Assessment: lower dentures and upper dentures ASSESSMENT / PLAN ANESTHESIA PLAN ASA: 4 Anesthesia Plan: MAC No hx of anesthesia complications CV: NSR, unchanged today from prior ECGs Pulm: ??Recent forbes with pulmonary edema and COVID requiring hospitalization. On room air now. States he occasionally used oxygen at night Heme: T/S Current Renal: no acute issues Neuro: no hx of stroke or seizure Plan: MAC with Propofol infusion, lidocaine Monitors: Standard ASA monitors Access: PIV x 1 Pain: Fent, Tylenol Anti-emetic: Zofran prn Dispo: Outpatient Described indication and utilization of MAC anesthesia for ICD placement. Described the spectrum of MAC anesthesia, and described to patient that periods of being awake may be necessary procedurally orfor patient safety. Patient also consented for general anesthesia should need arise procedural/safety. Patient seen and allergies reviewed, anesthesia plan and risks discussed directly with patient /legal guardian or through an medical i d sales. Risks/Benefits/Alternatives of Blood transfusion discussed with patient / legal guardian, including an opportunity to ask questions and/or decline some or all transfusion therapies. The patient / legalguardian consented to the use of all blood products, as deemed medically necessary Approval to Proceed: approved for anesthesia HOLOGICAL TESTS SALES AGENT documented in this encounter Plan of Treatment Not on filedocumented as of this encounter Visit Diagnoses Not on filedocumented in this encounter Administered Medications Inactive Administered Medications - up to 3 most recent administrations Medication Order MAR Action Action Date Dose Rate Site acetaminophen injection Given 03/21/2021 11:15 AM PSYCHOLOGICAL TESTS SALES AGENT 1,000 mg intravenous, Administer over 15 Minutes, As needed, Starting on Sat03/21/21 at 1115, Anesthesia Intra-op ceFAZolin injection 2,000 mg (ANCEF) Given 03/21/2021 11:10 AM PSYCHOLOGICAL TESTS SALES AGENT 2 g 2,000 mg (rounded from 2,120 mg = 25 mg/ kg ? 84.8 kg), intravenous, Once, On Sat03/21/21 at 0915, For 1 dose, Intra-Op, Administer within 1 hour prior to surgical incision If needed, reconstitute vial per package insert instructions. See IVAG for administration guidelines. , Drug Monitoring Program: Pharmacist to adjust medication dosing based on indication and drug clearance factors., Indications: Prophylaxis, surgical fentaNYL injection (SUBLIMAZE) Given 03/21/2021 11:29 AM PSYCHOLOGICAL TESTS SALES AGENT 25 mcg intravenous, As needed, Starting on Sat03/21/21 at 1105, Anesthesia Intra-op Given 03/21/2021 11:19 AM PSYCHOLOGICAL TESTS SALES AGENT 25 mcg Given 03/21/2021 11:05 AM PSYCHOLOGICAL TESTS SALES AGENT 50 mcg iohexoL 300 mg iodine/mL solution (OMNIP AQUE) Given 03/21/2021 11:31 AM PSYCHOLOGICAL TESTS SALES AGENT 10 mL intravenous, As needed, Starting on Sat03/21/21 at 1131, Anesthesia Intra-op lactated ringers New Bag 03/21/2021 10:57 AM PSYCHOLOGICAL TESTS SALES AGENT intravenous, Continuous Infusion: Per Instructions PRN, Starting on Sat03/21/21 at 1057, Anesthesia Intra-op lidocaine (PF) (cardiac) injection Given 03/21/2021 10:55 AM PSYCHOLOGICAL TESTS SALES AGENT 60 mg intravenous, As needed, Starting on Sat03/21/21 at 1055, Anesthesia Intra-op midazolam (PF) injection (VERSED) Given 03/21/2021 10:57 AM PSYCHOLOGICAL TESTS SALES AGENT 2 mg intravenous, As needed, Starting on Sat03/21/21 at 1057, Anesthesia Intra-op propofol 10 mg/mL infusion Rate/Dose 03/21/2021 45 mcg/kg/min 23.274 (DIPRIVAN) Change 11:34 AM PSYCHOLOGICAL TESTS SALES AGENT mL/hr intravenous, Continuous Infusion: Per Instructions PRN, Starting on Sat03/21/21 at 1057, Anesthesia Intra-op Rate/Dose Change 03/21/2021 11:19 AM PSYCHOLOGICAL TESTS SALES AGENT 35 mcg/kg/min 18.102 mL/hr Rate/Dose Change 03/21/2021 11:10 AM PSYCHOLOGICAL TESTS SALES AGENT 25 mcg/kg/min 12.93 mL/hr propofol bolus from bag (DIPRIVAN) Given 03/21/2021 11:18 AM PSYCHOLOGICAL TESTS SALES AGENT 10 mg intravenous, As needed, Starting on Sat03/21/21 at 1118, Anesthesia Intra-op documented in this encounter Care Teams Account Advisor Relationship Specialty Start Date End Date Elsewhere, Pcp PCP - General 02/22/21 documented as of this encounter
--- OUTSIDE RECORDS SUMMARY | 2022-04-02 01:25 | XMS_ITS | Encounter Summary ---
:1965 Author Organization [facility] Address [address] [place] [address] Care Team Providers Name Role Phone Elsewhere, Pcp Primary Care Provider Unavailable Encounter Details Date Type Department Care Team Description 03/21/2021 Orders Only Division of [place] Aftercare Cardi ac Cardiovascular Diseases Wally Saleh (Primary in [facility] M.S.N., R.N. Dx) [address] [place] [address] Social History Tobacco Use Types Packs/Day Years [...] More than 4 times per year 02/09/2021 restorationist services? Do you belong to any clubs [...] place to sleep or slept in a retirement (including now)? Education Answer Date Recorded What is the highest level of school you have completed or th e 9th grade 02/09/2021 highest degree you have received? Sex Assigned at Date Recorded Male 02/09/2021 2:11 PM CDT documented as of this encounter Plan of Treatment Not on filedocumented as of this encounter Visit Diagnoses Diagnosis Aftercare Cardiac Defibrillator - Primar y documented in this encounter Care Teams Hat Designer Relationship Specialty Start Date End Date Elsewhere, Pcp PCP - General 02/22/21 documented as of this encounter
--- OUTSIDE RECORDS SUMMARY | 2022-04-02 01:25 | XMS_ITS | Encounter Summary ---
:1965 Author Organization [facility] Address [address] [place] [address] Care Team Providers Name Role Phone Elsewhere, Pcp Primary Care Provider Unavailable Encounter Details Date Type Department Care Team Description 03/21/2021 Hospital Encounter Division of [place], Cardiomyo [place] Ischemic; Cardiovascular Ellis K, Diabetes Janel itus Type 2 Hyperglycemia (HCC) Diseases in [place], M.P .H. [place] [address] [facility] [id number] MD [phone] [id number] Social History Tobacco Use Types Packs/Day Years [...] or relatives? How often do you attend baptist or More than 4 times per year 02/09/2021 church services? Do you belong to any clubs or Yes 02/09/2021 organizations such as baptist groups, unions, fraternal or athletic groups, or [...] place to sleep or slept in a senior care (including now)? Education Answer Date Recorded What is the highest level of school you have completed or th e 9th grade 02/09/2021 highest degree you have received? Sex Assigned at Date Recorded Male 02/09/2021 2:11 PM CDT documented as of this encounter Last Filed Vital Signs Vital Sign Reading Time Taken Comments Blood Pressure 143/82 03/21/2021 3:10 PM MANAGER GROCERY Pulse 71 03/21/2021 3:10 PM MANAGER GROCERY Temperature 36.7 ??C (98.1 ??F) 03/21/2021 9:22 AM MANAGER GROCERY Respiratory Rate - - Oxygen Saturation 98% 03/21/2021 3:10 PM MANAGER GROCERY Inhaled Oxygen Concentration - - Weight - - Height - - Body Mass Index - - documented in this encounter Discharge Summaries Wanda Carlos APRN, C.N.P., M.S.N. - 03/21/2021 2:07 PM CST DISCHARGE SUMMARY BRIEF OVERVIEW Discharge Provider: Ellis Sawyer M.D., M.P.H. Admission Date: 03/21/2021 Discharge Date: 03/21/2021 PRINCIPAL DIAGNOSIS Hospital Problems as of 03/21/2021 1. * (Principal) Automatic Implantable Cardiac Defibrillator Status Post Single chamber ICD insertion 03/21/[address] Sawyer. 2. Diabetes Mellitus Type 2 Hyperglycemia (HCC) 3. Hypertension Essential Primary 4. 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 Cardiomyopathy Ischemic 6. Hyperlipidemia On Treatment DISCHARGE DISPOSITION Home CONDITION AT DISCHARGE Stable DISCHARGE MEDICATIONS Discharge Medications TAKE these medications acetaminophen 500 mg tablet Commonly known as: TYLENOL Take 2 tablets (1,000 mg total) by mouth every 6 (six) hours. aspirin [address] tablet Take 1 tablet (81 mg total) by mouth at bedtime. atorvastatin 40 mg tablet Commonly known as: LIPITOR Take 2 tablets (80 mg total) by mouth at bedtime. blood glucose ctl high,nml,low solution Glucose control solution provides an easy way to ensure accurate blood glucose testing. * blood sugar diagnostic strips 2 test daily. * blood sugar diagnostic strips 3 test daily. * blood-glucose meter misc Test as directed for diabetes control. * blood-glucose meter misc Test as directed for diabetes control. FreeStyle Jose 2 [place] misc 1 kit daily. Generic drug: flash glucose scanning reader FreeStyle Jose 2 Sensor kit 1 kit every 14 (fourteen) days. Generic drug: flash glucose sensor furosemide 20 mg tablet Commonly known as: LASIX Take 1 tablet (20 mg total) by mouth daily as needed (take a dose, if there is more than 3 pounds weight gain). lancets 2 each daily. losartan 100 mg tablet Commonly known as: COZAAR Take 1 tablet (100 mg total) by mouth daily. metFORMIN XR 500 mg 24 hr tablet Commonly known as: GLUCOPHAGE-XR Take 4 tablets (2,000 mg total) by mouth daily with breakfast. Hold metformin for 2 days. Resume taking on 03/23/21. metoprolol succinate 100 mg 24 hr tablet Commonly known as: TOPROL-XL Take 1 tablet (100 mg total) by mouth daily. Do not crush or chew. multivitamin tablet Take 1 tablet by mouth daily. Diabetic Complete Multivitamin oxyCODONE 5 mg immediate release tablet Commonly known as: ROXICODONE Take 1 tablet (5 mg total) by mouth every 6 (six) hours as needed for pain for up to 3 days Indication: acute pain. spironolactone 25 mg tablet Commonly known as: ALDACTONE Take 1 tablet (25 mg total) by mouth daily. Ventolin HFA 90 mcg/actuation inhaler Inhale 2 puffs every 4 (four) hours as needed for wheezing or shortness of breath. Generic drug: albuterol * There are duplicate medications prescribed to the patient DIAGNOSTICS Results from last 7 days Lab Units 03/20/21 1500 WBC x10(9)/L 13.5* HEMOGLOBIN g/dL 12.9* HEMATOCRIT % 40.1 MCV fL 84.4 PLATELETS AUTO x10(9)/L 343* No lab exists for component: EGFR ECG 12 Lead Result Date: 03/21/2021 Normal sinus rhythm Cannot rule out Anterior infarct Nonspecific T wave abnormality When compared with ECG of 20-MAR-2021 15:16, No significant change was found Reviewed by DEBBY Paulino ECG 12 Lead Result Date: 03/20/2021 Normal sinus rhythm Cannot rule out Anterolateral infarct When compared with ECG of 09-FEB-2021 07:56, ST no longer elevated in Anteroseptal leads Reviewed by DEBBY Salas VITALS Vitals: 03/21/21 1510 BP: 143/82 Pulse: 71 Temp: SpO2: 98% PHYSICAL EXAM Constitutional General: He is not in acute distress. Appearance: Normal appearance. He is not ill-appearing. Cardiovascular Rate and Rhythm: Normal rate and regular rhythm. Heart sounds: Normal heart sounds. No murmur heard. No friction rub. Pulmonary Effort: Pulmonary effort is normal. No respiratory distress. Breath sounds: Normal breath sounds. No wheezing or rales. Musculoskeletal Right lower leg: No edema. Left lower leg: No edema. Skin General: Skin is warm and dry. Neurological Mental Status: He is alert and oriented to person, place, and time. Psychiatric Mood and Affect: Mood normal. Behavior: Behavior normal. Wound: left pectoral incision is covered with Dermabond and left open to air. There is no erythema, hematoma, bleeding, or discharge. HOSPITAL COURSE Mr. Fairbanks was discharged from the hospital following implant of single chamber ICD performed by Dr. Sawyer. The device was implanted for primary prevention in the setting of ischemic cardiomyopathy. There were no known complications. Following the procedure Mr. Fairbanks experienced moderate discomfort at the left chest incision site. This was managed with fentanyl during his time in the recovery area. He has been instructed to take extra strength tylenol every 6 hours for incision pain and will be sent home with a small quantity of oxycodone to use for breakthrough pain for up to 3 days. Mr. Fairbanks was asked to hold his metformin for 48 hours post procedure due to contrast administrationduring today's procedure. Site care, activity and driving restrictions were reviewed prior to discharge. Prior to discharge hewas able to ambulate, eat, drink, and void. FOLLOW UP Mr. Fairbanks is recommended to follow up with his local primary care provider in approximately 7 to 10 days for a post hospital follow up appointment. Routine device follow-up will occur every 3 months. The first appointment will be at the [facility]. The patient will be contacted by [facility] to set up this appointment. After this appointment, routine follow-up will continue with remote home monitoring. A remote home monitor has been given to the patient. They were instructed to verify communication between the monitor and the device, and instructed to send a transmission within the first week after returning home. Then call the [facility] at ([phone]) during regular business hours (Saturday-Saturday, 8 a.m. - 4p.m.) to verify the transmission was received. Wanda Carlos APRN, C.N.P., M.S.N. GER GROCERY documented in this encounter Discharge Instructions Discharge InstructionsHuWanda del rio APRN, C.N.PLisa, M.S.N. - 03/21/2021 2:17 PM CST You were discharged from the [facility] CVD Interventional/Heart Rhythm Service. Please identify this service name if you call with questions after hospitalization. Implantable Cardioverter Defibrillator (ICD) implant instructions Remember your arm restrictions ??? No vigorous, upper body activity for 4 weeks. ??? No raising affected arm above shoulder level for 4 weeks. ??? 5 pound weight limit with affected arm (this includes pushing, pulling, lifting) for 4 weeks. ??? No driving for 10 days. ??? Wear sling for 1 week, or as directed. Wound Care: Watch incision daily for signs and symptoms of infection and bleeding: ??? redness ??? swelling ??? large amount of drainage ??? oral temperature greater than 100.4??F. If any of these are present, please call your local provider, as soon as possible. Types of dressings over device incision: - DERMABOND: Telfa or gauze dressing should be removed day after procedure. Dermabond skin glue willdissolve on its own, over the next 1-2 weeks. Ok to shower in 24 hours. Pat incision dry after showering. Do not apply any lotions or creams directly to incision. Do not submerge incision in water until completely healed (usually 3-4 weeks). Pain: You may use [id number] Extra Strength Tylenol (acetaminophen) 500 mg tablets, one to twotablets by mouth every six hours as needed for incisional discomfort. DO NOT EXCEED 4 grams of acetaminophen in any 24-hour period. Remote Transmitter: You will be provided with a remote home transmitter to assist you in ongoing follow up of your device. This transmitter is NOT a lifesaving device, nor will it contact anyone in an emergency. The transmitter will send information to your designated clinic on a quarterly basis, and in between those times, ONLY if the implanted device detects something it wants your clinic to be aware of. If you are experiencing any abnormal symptoms, please DO NOT rely on this transmitter. Call your local physician, or if an emergency, report to the closest emergency room, or dial 911. If you have a device that requires manual remote follow up from your transmitter, you will manually send a transmission once every 91 days, on the date scheduled. It is still recommended these transmitters remain plugged in at all times. When you arrive home, please connect your transmitter as instructed. If you have a manual transmitter, please send a manual transmission as instructed. You may verify receipt of this transmission by calling the [facility] at or [phone]. Please contact us if you have any concerns. ICD alert tones/vibration: Your ICD will beep or vibrate if your device detects something outside ofits normal programmed parameters. Please contact the clinic following your device if you should notice this occurring. ICD shock: If you receive a shock, and are not experiencing any significant symptoms, please manually transmit, and call your device following clinic to report. If you receive a shock, and are continuing to experience symptoms, OR if you receive more than 1 shock, please seek medical attention, or dial 911. [address] DO NOT drive yourself to the hospital. ALWAYS call 911 in the event of an emergency. GER GROCERY documented in this encounter Medications at Time of Discharge [...] as directed for 1 each 0 [facility] diabetes control. blood-glucose [...] 0 03/13/2021 03/13/2022 reader (FreeStyle Jose 2 [place]) miscIndications: Diabetes Mellitus Type 2 Hyperglycemia (HCC) [...] Name Priority Date/Time Associated Diagnosis Comme nts DX CHEST AP OR PA RAD - Routine 03/21/2021 2:00 Result s for AND LATERAL 2 VIEWS (most inpatients PM MANAGER GROCERY this procedure and all are in the outpatients) results section. GLUCOSE POCT, B Routine 03/21/2021 1:10 Results f or PM MANAGER GROCERY this procedure are in the results section. ECG Routine 03/21/2021 Results for 12:33 PM MANAGER GROCERY this procedure are in the results section. ADULT OXYGEN Routine 03/21/2021 THERAPY 12:21 PM MANAGER GROCERY CAR CARDIAC DEVICE Routine 03/21/2021 Results f or INTERROGATION 12:19 PM MANAGER GROCERY this procedure are in the results section. GLUCOSE POCT, B Routine 03/21/2021 Results for 12:19 PM MANAGER GROCERY this procedure are in the results section. HEART RHYTHM Routine 03/21/2021 Cardiomyopathy Results for PROCEDURE 12:06 PM MANAGER GROCERY Ischemic this procedure are in the results section. HEART RHYTHM Routine 03/21/2021 Cardiomyopathy Results for PROCEDURE 12:06 PM MANAGER GROCERY Ischemic this procedure are in the results section. GLUCOSE POCT, B Routine 03/21/2021 9:19 Results f or AM MANAGER GROCERY this procedure are in the results section. documented in this encounter Results DX Chest AP or PA and Lateral 2 Views (03/21/2021 2:00 PM MANAGER GROCERY) Anatomical Region Laterality Modality Chest, Thoracic RST LOS, Thoracic ARZ LOS, Thoracic N/A Digital Radiography FLA LOS Specimen (Source) Anatomical Collection Method Collection Time Re ceived Time Location / / Volume Laterality 03/21/2021 2:01 PM MANAGER GROCERY Impressions 03/21/2021 2:08 PM MANAGER GROCERY Comparison with radiograph dated 02/23/2021. Interval placement of left subclavian approach single lead ICD with tip projecting over the right ventricle. No pneumothorax. Decrease in size of the small left pleural effusion. Aortic calcifications. Narrative 03/21/2021 2:08 PM MANAGER GROCERY EXAM: ??DX CHEST AP OR PA AND LATERAL 2 VIEWS Procedure Note Slava Marcos M.D. - 03/21/2021Fo rmatting of this note might be different from the original. EXAM: DX CHEST AP OR PA AND LATERAL 2 EWS IMPRESSION: Comparison with radiograph dated 021. Interval placement of left subclavian approach single lead ICD with tip projecting over the right ventricle. No pneumothorax. Decrease in size of the small left pleural effusion. Aortic calcifications. Ellis Sawyer M.D., M.P.H. IMG DIAGNOSTIC IMAGING PRO CEDURES Glucose, POCT (03/21/2021 1:10 PM MANAGER GROCERY) Analysis Performed At Patho logist Time Signature Glucose, POCT, 97 70 - 140 03/21/2021 PCLX B mg/dL 1:14 PM MANAGER GROCERY Site Capillary 03/21/2021 PCLX 1:14 PM MANAGER GROCERY Specimen Anatomical Collection Method Collection Time Receive d Time (Source) Location / / Volume Laterality Blood 03/21/2021 1:10 PM 1:14 MANAGER GROCERY PM MANAGER GROCERY Unknown Provider LAB POCT ORDERABLES-MANUAL Performing Organization Address City/State/ZIP Code Phon e Number POC [facility] [address] [place] [address] PCL[facility] [place] [address] [place] [facility] [address] [facility] ECG 12 Lead (03/21/2021 12:33 PM MANAGER GROCERY) P athologist Signature Ventricular Rate 78 BPM MUSE ECG/Min [place] Interval 178 ms MUSE QRSD Interval 90 ms MUSE QT Interval 414 ms MUSE QTC Interval 471 ms MUSE P [place] 72 degrees MUSE R [place] 74 degrees MUSE T Wave [place] 81 degrees MUSE Specimen Anatomical Collection Method Collection Time Receive d Time (Source) Location / / Volume Laterality 03/21/2021 12:33 03/21/2021 PM MANAGER GROCERY 12:45 PM MANAGER GROCERY Impressions MUSE - 03/21/2021 12:45 PM MANAGER GROCERY Normal sinus rhythm Cannot rule out Anterior infarct Nonspecific T wave abnormality When compared with ECG of 20-MAR-2021 15 :16, No significant change was found Reviewed by DEBBY Paulino Narrative This result has an attachment that is no t available. Procedure Note Gilberto Spear M.D. - 03/21/2021Formatt ing of this note might be different from the original. IMPRESSION: Normal sinus rhythm Cannot rule out Anterior infarct Nonspecific T wave abnormality When compared with ECG of 20-MAR-2021 15 :16, No significant change was found Reviewed by DEBBY Paulino Ellis Sawyer M.D., M.P.H. ECG ORDERABLES Performing Organization Address City/State/ZIP Code Phon e Number MUSE MUSE NA CARDIOVASCULAR IMPLANTABLE ELECTRONIC DEVICE - NO CHARGE (03/21/2021 12:19 PM MANAGER GROCERY) Component Value Ref Test Analysis Performed At [facility] Range Method Time Signature Date Time [id number] [facility] Interrogation LAB SYSTEM Session Implantable Biotronik [facility] Pulse Generator LAB SYSTEM Retort Unloader Implantable [id number] Acticor 7 [facility] Pulse Generator VR-T DX LAB SYSTEM Model Implantable [id number] [facility] Pulse Generator LAB SYSTEM Serial Number Type In Clinic [facility] Interrogation LAB SYSTEM Session Re-programmed Unknown [facility]OUNDATION During Session LAB SYSTEM Clinic Name [facility] LAB SYSTEM [place] Implantable Defibrillator [facility] Pulse Generator LAB SYSTEM Type Implantable [id number] [facility] Pulse Generator LAB SYSTEM Implant Date Implantable Lead Biotronik [facility] Retort Unloader LAB SYSTEM Implantable Lead [id number] Plexa DF-1 FOUND ATION Model S DX 65/15 LAB SYSTEM Implantable Lead [id number] [facility] Serial Number LAB SYSTEM Implantable Lead [id number] [facility] ON Implant Date LAB SYSTEM Implantable [...] Unknown [facility]ATION chambers paced LAB SYSTEM during DESKTOP PUBLISHER pacing. Lead Channel Unknown [facility] Setting Pacing LAB SYSTEM Polarity Lead Channel Unknown [facility] Setting Sensing LAB SYSTEM Cathode Location Lead Channel Unknown [facility] Setting Sensing LAB SYSTEM Cathode Terminal Lead Channel Bipolar [facility] Setting Pacing LAB SYSTEM Polarity Lead Channel 0.4 ms [facility]ATION Setting Pacing LAB SYSTEM Pulse Width Lead Channel 3.5 V [facility] Setting Pacing LAB SYSTEM Amplitude [...] [facility]ATION Detection LAB SYSTEM Interval Lead Channel 5.9 mV [facility] Sensing LAB SYSTEM Intrinsic Amplitude Lead Channel 581 ohm [facility] Impedance Value LAB SYSTEM Lead Channel 18.3 mV [facility] Sensing LAB SYSTEM Intrinsic Amplitude Lead Channel 0.4 V [facility] Pacing Threshold LAB SYSTEM Amplitude Lead Channel 0.4 ms [facility] Pacing Threshold LAB SYSTEM Pulse Width Battery Date [facility] Time of LAB SYSTEM Measurements Battery Status Middle of Service [facility]OUND[facility] ION LAB SYSTEM Battery Voltage 3.07 V [facility] LAB SYSTEM Capacitor Charge FULL_ENERGY [facility]OUNDATION Type LAB SYSTEM Capacitor Charge Reformation [facility] Type LAB SYSTEM Capacitor Charge Shock [facility] Type LAB SYSTEM Therapy 0 [facility] Statistic Recent LAB SYSTEM Shocks Delivered Therapy 0 [facility] Statistic Total LAB SYSTEM Shocks Delivered Therapy 0 [facility] Statistic Total LAB SYSTEM Shocks Aborted Anatomical Region Laterality Modality Other Specimen (Source) Anatomical Collection Method Collection Time Re ceived Time Location / / Volume Laterality 03/21/2021 11:16 AM MANAGER GROCERY Narrative 03/27/2021 1:38 PM MANAGER GROCERY PURPOSE OF VISIT: ?? Implant of a Biotronik DX ICD with Dr. Sawyer. PRESENTING RHYTHM: Sinus rhythm @ 87 bpm ?? UNDERLYING RHYTHM: Sinus rhythm @ 87 bpm TEMPORARY PACEMAKER USED: N DRESSING: dermabond SAME DAY DISMISSAL: Y DFT testing: DFT testing not done at implant with no future plans for testing. SUMMARY: ??All device function appears n ormal. DEVICE RN: Digna Abreu RN Provider statement: This patient underwe nt device interrogation. I agree that the device interrogation was medica lly indicated to provide appropriate care and continue routine de vice interrogations as indicated. Donte Hampton M.D. CV IMPLANTABLE CARDIAC DEVIC E (ABNORMAL) Glucose, POCT (03/21/2021 12:19 PM MANAGER GROCERY) Analysis Performed At Patho logist Time Signature Glucose, POCT, 64 (L) 70 - 140 03/21/2021 PCLX B mg/dL 12:33 PM MANAGER GROCERY Site Capillary 03/21/2021 PCLX 12:33 PM MANAGER GROCERY Specimen Anatomical Collection Method Collection Time Receive d Time (Source) Location / / Volume Laterality Blood 03/21/2021 12:19 03/21/2021 PM MANAGER GROCERY 12:33 PM MANAGER GROCERY Unknown Provider LAB POCT ORDERABLES-MANUAL Performing Organization Address City/[facility] Phon e Number POC [facility] [address] [place] [address] [place] [address] [place] [facility] [address] [facility] ICD IMPLANT - SINGLE CHAMBER, VENOGRAPHY - SUBCLAVIAN (03/21/2021 12:06 PM MANAGER GROCERY) Anatomical Region Laterality Modality X-Ray Angiography Specimen (Source) Anatomical Collection Method Collection Time Re ceived Time Location / / Volume Laterality 03/21/2021 11:16 AM MANAGER GROCERY Narrative 03/21/2021 4:26 PM MANAGER GROCERY For the complete report, see the Order-L evel Documents. PROCEDURE TYPES 1. ??ICD IMPLANT - SINGLE CHAMBER 2. ??VENOGRAPHY - SUBCLAVIAN PRE-PROCEDURE DIAGNOSIS 1. ??Cardiomyopathy Ischemic RADIATION DOSE DATA Procedure cumulative skin dose (mGy): 14 .32 Procedure cumulative dose area product ( Gy-cm2): 1.70 Fluoro Time (Min): 2.51 For the complete report, see the Order-L evel Documents. Aurelio Recinos M.D., Ph.D. CV ELECTROPHYSIOLO GY PROCS Glucose, POCT (03/21/2021 9:19 AM MANAGER GROCERY) Analysis Performed At Patho logist Time Signature Glucose, POCT, 96 70 - 140 03/21/2021 PCLX B mg/dL 9:23 AM MANAGER GROCERY Site Capillary 03/21/2021 PCLX 9:23 AM MANAGER GROCERY Specimen Anatomical Collection Method Collection Time Receive d Time (Source) Location / / Volume Laterality Blood 03/21/2021 9:19 AM 9:23 MANAGER GROCERY AM MANAGER GROCERY Unknown Provider LAB POCT ORDERABLES-MANUAL Performing Organization Address City/[facility] Phon e Number POC [facility] [address] [place] [address] [place] [address] [place] [facility] [address] [facility] documented in this encounter Visit Diagnoses Diagnosis Automatic Implantable Cardiac Defibrilla tor Status Post - Primary Cardiomyopathy Ischemic Diabetes Mellitus Type 2 Hyperglycemia ( HCC) Cardiomyopathy Ischemic Atherosclerotic Heart Disease [place] Cor onary Artery With Other Forms Angina Pectoris (Stable Angina/Angina Of Exertion) (HCC) Diabetes Mellitus Type 2 Hyperglycemia ( HCC) Hyperlipidemia On Treatment Hypertension Essential Primary Cardiomyopathy Ischemic documented in this encounter Admitting Diagnoses Diagnosis Cardiomyopathy Ischemic documented in this encounter Administered Medications Inactive Administered Medications - up to 3 most recent administrations Medication Order MAR Action Action Date Dose Rate Site acetaminophen (TYLENOL) 500 mg tablet - ADS Override Pull Starting on Sat03/21/21 at 1230, For 1 dose, Created by carmen override acetaminophen tablet 1,000 mg (TYLENOL) Given 03/21/2021 12:50 PM MANAGER GROCERY 1,000 mg 1,000 mg, oral, Every 6 hours PRN, mild pain or score 1-3 of 10, Starting on Sat03/21/21 at 1221, PACU & Post-Op fentaNYL (SUBLIMAZE) 50 mcg/mL injection - ADS Override Pull Starting on Sat03/21/21 at 1229, For 1 dose, Created by carmen sampsonide fentaNYL injection 25 mcg (SUBLIMAZE) 25 mcg, intravenous, Every 2 hour PRN, m oderate pain or score 4-6 of 10, Starting on Sat03/21/21 at 1221, PACU & Post-Op, May repeat x1 dosing interval, if patient unable to take oral analgesics or oral analgesics are ineffective fentaNYL injection 25 mcg (SUBLIMAZE) Given 03/21/2021 1:00 PM MANAGER GROCERY 25 mcg 25 mcg, intravenous, Every 2 min PRN, moderate pain or score 4-6 of 10, severe pain or score 7-10 of 10, Starting on Sat03/21/21 at 1220, PACU (only), Up to maximum total dose of 200 mcg Given 03/21/2021 12:55 PM MANAGER GROCERY 25 mcg Given 03/21/2021 12:43 PM MANAGER GROCERY 25 mcg fentaNYL injection 50 mcg (SUBLIMAZE) 50 mcg, intravenous, Every 2 hour PRN, s evere pain or score 7-10 of 10, Starting on Sat03/21/21 at 1221, PACU & Post-Op, May repeat x1 do sing interval, if patient unable to take oral analgesics or oral analgesics are ineffective oxyCODONE (ROXICODONE) 5 mg IR tablet - ADS Override Pull Starting on Sat03/21/21 at 1441, For 1 dose, Created by cabinet override oxyCODONE IR tablet 5 mg (ROXICODONE) Given 03/21/2021 2:48 PM MANAGER GROCERY 5 mg 5 mg, oral, Every 6 hours PRN, moderate pain or score 4-6 of 10, Starting on Sat03/21/21 at 1404, PACU (only) sodium chloride 0.9 % injection 10 mL 10 mL, intravenous, As needed, line care, Starting on Sat03/21/21 at 0903, Preprocedure (CV), Peripheral Intravenous Catheter and Rapid Infusion Catheter, prior to blood sampling, post blood transfusion or pos t blood sampling sodium chloride 0.9 % injection 3 mL 3 mL, intravenous, As needed, line care, Starting on T 03/21/21 at 0903, Preprocedure (CV), Prior to and followin g infusion and between multiple consecutive infusions: sodium chloride 0.9 % injection sodium chloride 0.9 % injection 3 mL 3 mL, intravenous, Every 12 hours schedu led, First dose on Sat03/21/21 at 2100, Preprocedure (CV), Peripheral Intravenous Catheter and Rapid Infusion Catheter, when no infusion to maintain patency documented in this encounter Active and Recently Administered Medications Times are shown in MANAGER GROCERY. Scheduled Medication Order 03/19/2021 03/20/2021 03/21/2021 ceFAZolin injection 2,000 mg (ANCEF) (COMPLETED) 1110 (Given - Provider: Tamika Barry, TOOLROOM CLERK, GROUNDWATER PROGRAMS DIRECTOR, DNAP) 2,000 mg (rounded from 2,120 mg = 25 mg/ kg ? 84.8 kg), intravenous, Once, On Sat03/21/21 at 0915, For 1 dose, Intra-Op, Administer within 1 hour prior to surgical incision If needed, reconstitute vial per package insert instructions. See IV AG for administration guidelines. , Drug Monitoring Program: Pharmacist to adjust medication dosing based on indication and drug clearance factors., Indications: Prophylaxis, surgical sodium chloride 0.9 % injection 3 mL 3 mL, intravenous, Every 12 hours schedu led, First dose on Sat03/21/21 at 2100, Preprocedure (CV), Peripheral Intravenous Catheter and Rapid Infusion Catheter, when no infusion to maintain patency Continuous Medication Order 03/19/2021 03/20/2021 03/21/2021 lactated ringers 1145 (Due) 20 mL/hr, intravenous, Continuous, Start ing on Sat03/21/21 at 1145, PACU & Post-Op PRN Medication Order 03/19/2021 03/20/2021 03/21/2021 acetaminophen tablet 1,000 mg (TYLENOL) 1250 (Given - Provider: Satinder Cary R.N., [facility]) 1,000 mg, oral, Every 6 hours PRN, mild pain or score 1-3 of 10, Starting on Sat03/21/21 at 1221, PACU & Post-Op fentaNYL injection 25 mcg (SUBLIMAZE)(Linked Group 1) 25 mcg, intravenous, Every 2 hour PRN, m oderate pain or score 4-6 of 10, Starting on Sat03/21/21 at 1221, PACU & Post-Op, May repeat x1 dosing interval, if patient unable to take oral analgesics or oral analgesics are ineffective fentaNYL injection 25 mcg (SUBLIMAZE) 1243 (Given - Provider: Satinder Cary R.N., [facility])1255 (Given - Provider: Satinder Cary R.N., [facility])1300 (Given - Provider: Satinder Cary R.N., [facility]) 25 mcg, intravenous, Every 2 min PRN, mo derate pain or score 4-6 of 10, severe pain or score 7-10 of 10, Starting on Sat03/21/21 at 1220, PACU (only), Up to maximum total dose of 200 mcg fentaNYL injection 50 mcg (SUBLIMAZE)(Linked Group 1) 50 mcg, intravenous, Every 2 hour PRN, s evere pain or score 7-10 of 10, Starting on Sat03/21/21 at 1221, PACU & Post-Op, May repeat x1 dosing interval, if patient unable to take oral analgesics or oral analgesics are ineffective granisetron (PF) injection 1 mg (KYTRIL) 1 mg, intravenous, Once as needed, nause a, vomiting, Starting on Sat03/21/21 at 1220, For 1 dose, PACU (only), If patient does not respond to ondansetron or haloperidol. (order of antiemetic administra tion - ondansetron then haloperidol then granisetron) haloperidol lactate injection 1 mg (HALDOL) 1 mg, intravenous, Every 6 hours PRN, na usea, vomiting, Starting on Sat03/21/21 at 1220, For 48 hours, PACU (only), Total of 3 doses in 24 hour period. RASS must be -2 or higher to administer. If nause a and vomiting persists, move to granist jossy. (order of antiemetic administration - ondansetron then haloperidol then granisetron) lidocaine 10 mg/mL (1 %) injection (XYLOCAINE) (CANCELED) 1120 (Given - Provider: Ellis Sawyer M.D., [facility] As needed, Starting on Sat03/21/21 at 1123, Intraprocedure (CV) naloxone injection 0.2 mg (NARCAN) 0.2 mg, intravenous, As needed, respirat ory depression, Starting on Sat03/21/21 at 1221, PACU & Post-Op, For RASS Score -4 or less, respiratory rate of less than 8 breaths/min. Notify provider/serv ice and rapid response team (if available at institution). ondansetron (PF) injection 4 mg (ZOFRAN) 4 mg, intravenous, Every 6 hours PRN, na usea, vomiting, Starting on Sat03/21/21 at 1221, PACU & Post-Op, Reassess for nausea or vomiting after at least 10 minutes. If nausea or vomiting persists ad speech pathology supervisor next ordered antiemetic medicat ion (order for antiemetic medication administration Ondansetron then Promethazine). ondansetron (PF) injection 4 mg (ZOFRAN) 4 mg, intravenous, Every 6 hours PRN, na usea, vomiting, (If patient has not received in the previous 6 hours), Starting on Sat03/21/21 at 1220, For 48 hours, PACU (only), Administer first. If nausea an d vomiting persists, proceed with halope ridol. (order of antiemetic administration - ondansetron then haloperidol then granisetron) oxyCODONE IR tablet 5 mg (ROXICODONE) 1448 (Given - Provider: Satinder Cary R.N., [facility]) 5 mg, oral, Every 6 hours PRN, moderate pain or score 4-6 of 10, Starting on Sat03/21/21 at 1404, PACU (only) sodium chloride 0.9 % injection 10 mL 10 mL, intravenous, As needed, line care , Starting on Sat03/21/21 at 0903, Preprocedure (CV), Peripheral Intravenous Catheter and Rapid Infusion Catheter, prior to blood sampling, post blood transfusion or post blood sampling sodium chloride 0.9 % injection 3 mL 3 mL, intravenous, As needed, line care, Starting on Sat03/21/21 at 0903, Preprocedure (CV), Prior to and following infusion and between multiple consecutive infusions: sodium chloride 0.9 % injection Linked Groups Order Group 1: fentaNYL injection 25 mcg (SUBLIMAZE)Jump to med 25 mcg, intravenous, Every 2 hour PRN, m oderate pain or score 4-6 of 10, Starting on Sat03/21/21 at 1221, PACU & Post-Op
May repeat x1 dosing interval, if patient unable to take oral analgesics or oral analgesics are ineffective
Or fentaNYL injection 50 mcg (SUBLIMAZE)Jump to med 50 mcg, intravenous, Every 2 hour PRN, s evere pain or score 7-10 of 10, Starting on Sat03/21/21 at 1221, PACU & Post-Op
May repeat x1 dosing interval, if patient unable to take oral analgesics or oral analgesics are ineffective
documented in this encounter Care Teams Carbide Tool Die Maker Relationship Specialty Start Date End Date Elsewhere, Pcp PCP - General 02/22/21 documented as of this encounter
--- OUTSIDE RECORDS SUMMARY | 2022-04-02 01:25 | XMS_ITS | Encounter Summary ---
:1965 Author Organization [facility] Address [address] [place] [address] Care Team Providers Name Role Phone Elsewhere, Pcp Primary Care Provider Unavailable Reason for Visit Reason Comments Device Registration Communication Encounter Details Date Type Department Care Team Description 03/22/2021 Clinical Department of [facility], Device Registr ation Communication Cardiovascular Ellis Roberson, (Communicati on) Medicine in [place], [place], M.P .[place] [address] [facility] [id number] [place] [phone] Social History Tobacco Use Types Packs/Day Years [...] More than 4 times per year 02/09/2021 mormonism services? Do you belong to any clubs [...] place to sleep or slept in a halfway (including now)? Education Answer Date Recorded What is the highest level of school you have completed or th e 9th grade 02/09/2021 highest degree you have received? Sex Assigned at Date Recorded Male 02/09/2021 2:11 PM CDT documented as of this encounter Miscellaneous Notes Telephone Encounter - Neli Sotelo - 03/22/2021 8:59 AM CST Images from the original note were not included. BUYER Telephone Encounter - Neli Sotelo - 03/22/2021 7:41 AM CST ICD Implant BUYER documented in this encounter Plan of Treatment Not on filedocumented as of this encounter Visit Diagnoses Not on filedocumented in this encounter Care Teams Senior Cyber Intelligence Analyst Relationship Specialty Start Date End Date Elsewhere, Pcp PCP - General 02/22/21 documented as of this encounter
--- OUTSIDE RECORDS SUMMARY | 2022-04-02 01:25 | XMS_ITS | Encounter Summary ---
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 How often do you attend gnosticism or More than 4 times per year 02/09/2021 yarsani services? Do you belong to any clubs or Yes 02/09/2021 organizations such as gnosticism groups, unions, fraternal or athletic groups, or [...] documented as of this encounter Progress Notes Triston Olivares M.D. - 03/24/2021 11:56 AM CST Outside Record Review: Discussed with Dr. Warner. Patient underwent implant earlier this week and still has significant pain around the pack site. We reviewed a photo which looks satisfactory. Will renew Oxycodone x 3 days and then he can have evaluated locally in [place] next week. Refill for 18 tablets sent in. Impression/Plan: Patient Active Problem List Diagnosis ??? Diabetes Mellitus Type 2 Hyperglycemia (HCC) ??? Hypertension Essential Primary ??? 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 Pneumothorax Unspecified ??? Cardiomyopathy Ischemic ??? Congestive Heart Failure Ejection Fraction Less Than 40 Percent (HCC) ??? Failure Heart (HCC) ??? Hyperlipidemia On Treatment ??? Automatic Implantable Cardiac Defibrillator Status Post NURSE documented in this encounter Plan of Treatment Not on filedocumented as of this encounter Visit Diagnoses Not on filedocumented in this encounter Care Teams Embedded Nurse Relationship Specialty Start Date End Date Elsewhere, Pcp PCP - General 02/22/21 documented as of this encounter
--- OUTSIDE RECORDS SUMMARY | 2022-04-02 01:25 | XMS_ITS | Encounter Summary ---
:1965 Author Organization [facility] Address [address] [place] [address] Care Team Providers Name Role Phone Elsewhere, Pcp Primary Care Provider Unavailable Encounter Details Date Type Department Care Team Description 03/24/2021 Documentation Department of Jomar Warner, Cardiovascular Medicine in [place], M.S. [place], [place] [address] [facility] [address] [place] [phone] (Wo rk) Social History Tobacco Use Types Packs/Day Years [...] many times do you More than three ujliana es a week 02/09/2021 talk on the phone with family, friends, or neighbors? How often do you get together with friends More than three t imes a week 02/09/2021 or relatives? How often do you attend amish or More than 4 times per year 02/09/2021 evangelical services? Do you belong to any clubs [...] place to sleep or slept in a group home (including now)? Education Answer Date Recorded What is the highest level of school you have completed or th e 9th grade 02/09/2021 highest degree you have received? Sex Assigned at Date Recorded Male 02/09/2021 2:11 PM CDT documented as of this encounter Progress Notes Jomar Warner M.D., M.S. - 03/24/2021 12:09 PM CST Images from the original note were not included. I received a call from Mr. Fairbanks's (Kiarra) regarding persistent postprocedural pain following his ICD implantation on 03/21/2021. He had been dismissed on p.r.n. oxycodone but has almost finished using this due to ongoing pain in his incision site. They have not noticed drainage or increased swelling in the generator site. He has not had systemic symptoms either including fevers or chills; the pocket did not feel warm to touch either. He has been using acetaminophen around the clock as well. I asked them to share a picture of the generator site (see below). The incision looked clean, dry, and intact; there did not appear to be significant swelling at the site. They are currently staying [facility] (2 hours away from [place]), with plans to drive back to [place] tomorrow. I shared this information with Dr. Olivares. We will have an additional prescription of oxycodone sentto a pharmacy close by ([facility] in [place]). This should last him for several days before he reaches [place]. He will be able to see someone at [place] should he have ongoing symptoms next week. They were comfortable with this plan and had no further questions. ING MIXER documented in this encounter Plan of Treatment Not on filedocumented as of this encounter Visit Diagnoses Not on filedocumented in this encounter Care Teams Drafter Topographical Relationship Specialty Start Date End Date Elsewhere, Pcp PCP - General 02/22/21 documented as of this encounter
--- OUTSIDE RECORDS SUMMARY | 2022-04-02 01:25 | XMS_ITS | Encounter Summary ---
:1965 Author Organization [facility] Address [address] [place] [address] Care Team Providers Name Role Phone Elsewhere, Pcp Primary Care Provider Unavailable Encounter Details Date Type Department Care Team Description 03/21/2021 Surgery Division of Cardiovascular Ellis Sawyer, ICD IMPLANT - SINGLE Diseases in [place], M.P .H. [facility] [address] [facility] [address] [place] [phone] Social History Tobacco Use Types Packs/Day Years [...] or relatives? How often do you attend mandaeism or More than 4 times per year 02/09/2021 [employer] services? Do you belong to any clubs or Yes 02/09/2021 organizations such as mandaeism groups, unions, fraternal or athletic groups, or [...] Sign Reading Time Taken Comments Blood Pressure 137/103 03/21/2021 12:12 PM EDGE GLUE MACHINE TENDER Pulse 83 03/21/2021 12:20 PM EDGE GLUE MACHINE TENDER Temperature 36.7 ??C (98.1 ??F) 03/21/2021 9:22 AM EDGE GLUE MACHINE TENDER Respiratory Rate - - Oxygen Saturation 97% 03/21/2021 12:20 PM EDGE GLUE MACHINE TENDER Inhaled Oxygen Concentration - - Weight - [...] Hypertension Essential Primary 4. Atherosclerotic Heart Disease [place] Coronary Artery With Other Forms Angina Pectoris [...] directed for diabetes control. FreeStyle Jose 2 [place] misc 1 kit daily. Generic drug: flash [...] The first appointment will be at the [facility]. The patient will be contacted by [facility] to set up this appointment. After this appointment, routine follow-up will continue with remote home monitoring. A remote home monitor has been given to the patient. They were instructed to verify communication between the monitor and the device, and instructed to send a transmission within the first week after returning home. Then call the [facility] at ([phone]) during regular business hours (Saturday-Saturday, 8 a.m. - 4p.m.) to verify the transmission was received. Wanda Carlos APRN, Colt.NJak, M.S.N. GLUE MACHINE TENDER documented in this encounter Discharge Instructions Discharge InstructionsHuWanda del rio APRN, C.N.P., M.S.N. - 03/21/2021 2:17 PM CST You were discharged from the [facility] CVD Interventional/Heart Rhythm Service. Please identify this [...] (usually 3-4 weeks). Pain: You may use [id number] Extra Strength Tylenol (acetaminophen) 500 mg tablets, [...] receipt of this transmission by calling the [facility] at or [phone]. Please contact us if you have any [...] 911 in the event of an emergency. GLUE MACHINE TENDER documented in this encounter Medications at Time [...] as directed for 1 each 0 2020 [facility] [place]. blood-glucose meter Test as directed [...] 0 03/13/2021 03/13/2022 reader (FreeStyle Jose 2 [place]) miscIndications: Diabetes Mellitus Type 2 Hyperglycemia (HCC) [...] AND LATERAL 2 VIEWS (most inpatients PM EDGE GLUE MACHINE TENDER this procedure and all are in the outpatients) results section. GLUCOSE POCT, B Routine 03/21/2021 1:10 Results f or PM EDGE GLUE MACHINE TENDER this procedure are in the results section. ECG Routine 03/21/2021 Results for 12:33 PM EDGE GLUE MACHINE TENDER this procedure are in the results section. ADULT OXYGEN Routine 03/21/2021 THERAPY 12:21 PM EDGE GLUE MACHINE TENDER CAR CARDIAC DEVICE Routine 03/21/2021 Results f or INTERROGATION 12:19 PM EDGE GLUE MACHINE TENDER this procedure are in the results section. GLUCOSE POCT, B Routine 03/21/2021 Results for 12:19 PM EDGE GLUE MACHINE TENDER this procedure are in the results section. HEART RHYTHM Routine 03/21/2021 Cardiomyopathy Results for PROCEDURE 12:06 PM EDGE GLUE MACHINE TENDER Ischemic this procedure are in the results section. HEART RHYTHM Routine 03/21/2021 Cardiomyopathy Results for PROCEDURE 12:06 PM EDGE GLUE MACHINE TENDER Ischemic this procedure are in the results section. GLUCOSE POCT, B Routine 03/21/2021 9:19 Results f or AM EDGE GLUE MACHINE TENDER this procedure are in the results section. documented in this encounter Results DX Chest AP or PA and Lateral 2 Views (03/21/2021 2:00 PM EDGE GLUE MACHINE TENDER) Anatomical Region Laterality Modality Chest, Thoracic RST LOS, Thoracic ARZ LOS, Thoracic N/A Digital Radiography FLA LOS Specimen (Source) Anatomical Collection Method Collection Time Re ceived Time Location / / Volume Laterality 03/21/2021 2:01 PM EDGE GLUE MACHINE TENDER Impressions 03/21/2021 2:08 PM EDGE GLUE MACHINE TENDER Comparison with radiograph dated 02/23/2021. Interval placement of left subclavian approach single lead ICD with tip projecting over the right ventricle. No pneumothorax. Decrease in size of the small left pleural effusion. Aortic calcifications. Narrative 03/21/2021 2:08 PM EDGE GLUE MACHINE TENDER EXAM: ??DX CHEST AP OR PA AND [...] PRO CEDURES Glucose, POCT (03/21/2021 1:10 PM EDGE GLUE MACHINE TENDER) Analysis Performed At Patho logist Time Signature Glucose, POCT, 97 70 - 140 03/21/2021 PCLX B mg/dL 1:14 PM EDGE GLUE MACHINE TENDER Site Capillary 03/21/2021 PCLX 1:14 PM EDGE GLUE MACHINE TENDER Specimen Anatomical Collection Method Collection Time Receive d Time (Source) Location / / Volume Laterality Blood 03/21/2021 1:10 PM 1:14 EDGE GLUE MACHINE TENDER PM EDGE GLUE MACHINE TENDER Unknown Provider LAB POCT ORDERABLES-MANUAL Performing Organization Address City/State/ZIP Code Phon e Number POC [facility] [address] [place] [address] PCLX [facility] [place] [address] [place] P[place] [address] [facility] ECG 12 Lead (03/21/2021 12:33 PM EDGE GLUE MACHINE TENDER) P athologist Signature Ventricular Rate 78 BPM MUSE ECG/Min NM Interval 178 ms MUSE QRSD Interval 90 ms MUSE QT Interval 414 ms MUSE QTC Interval 471 ms MUSE P [place] 72 degrees MUSE R [place] 74 degrees MUSE T Wave [place] 81 degrees MUSE Specimen Anatomical Collection Method Collection Time Receive d Time (Source) Location / / Volume Laterality 03/21/2021 12:33 03/21/2021 PM EDGE GLUE MACHINE TENDER 12:45 PM EDGE GLUE MACHINE TENDER Impressions MUSE - 03/21/2021 12:45 PM EDGE GLUE MACHINE TENDER Normal sinus rhythm Cannot rule out Anterior infarct Nonspecific T wave abnormality When compared with ECG of 20-MAR-2021 15 :16, No significant change was found Reviewed by DEBBY Paluino Narrative This result has an attachment that [...] DEVICE - NO CHARGE (03/21/2021 12:19 PM EDGE GLUE MACHINE TENDER) Component Value Ref Test Analysis Performed At [facility] gist Range Method Time Signature Date Time [id number] [facility] Interrogation LAB SYSTEM Session Implantable Biotronik [facility] Pulse Generator LAB SYSTEM Resource Analyst Implantable [id number] Acticor 7 [facility] Pulse Generator VR-T DX LAB SYSTEM Model Implantable [id number] [facility] Pulse Generator LAB SYSTEM Serial Number Type In Clinic [facility] Interrogation LAB SYSTEM Session Re-programmed Unknown [facility]OUND[facility] During Session LAB SYSTEM Clinic Name [facility] LAB SYSTEM [place] Implantable Defibrillator [facility] Pulse Generator LAB SYSTEM Type Implantable [id number] [facility] Pulse Generator LAB SYSTEM Implant Date Implantable Lead Biotronik [facility] Resource Analyst LAB SYSTEM Implantable Lead [id number] Plexa DF-1 FOUND ATION Model S DX 65/15 LAB SYSTEM Implantable Lead [id number] [facility] Serial Number LAB SYSTEM Implantable Lead [id number] [facility] ON Implant Date LAB SYSTEM Implantable [...] Unknown [facility]ATION chambers paced LAB SYSTEM during SYNCHRONIZER pacing. Lead Channel Unknown [facility]ATION Setting Pacing [...] Detection LAB SYSTEM Interval Zone Setting [place] [facility] Type Category LAB SYSTEM Zone Setting 400 ms [facility] Detection LAB SYSTEM Interval Lead Channel 5.9 mV [facility] Sensing LAB SYSTEM Intrinsic Amplitude Lead Channel 581 ohm [facility] Impedance Value LAB SYSTEM Lead Channel 18.3 mV [facility] Sensing LAB SYSTEM Intrinsic Amplitude Lead Channel 0.4 V [facility] Pacing Threshold LAB SYSTEM Amplitude Lead Channel 0.4 ms [facility] Pacing Threshold LAB SYSTEM Pulse Width Battery Date [id number] [facility] Time of LAB SYSTEM Measurements Battery Status Middle of Service [facility]OUND[facility] ION LAB SYSTEM Battery Voltage 3.07 V [facility]ATION LAB SYSTEM Capacitor Charge FULL_ENERGY [facility] Type LAB SYSTEM Capacitor Charge Reformation [facility] Type LAB SYSTEM Capacitor Charge Shock [facility] Type LAB SYSTEM Therapy 0 [facility] Statistic Recent LAB SYSTEM Shocks Delivered Therapy 0 [facility] Statistic Total LAB SYSTEM Shocks Delivered Therapy 0 [facility] Statistic Total LAB SYSTEM Shocks Aborted Anatomical Region Laterality Modality Other Specimen (Source) Anatomical Collection Method Collection Time Re ceived Time Location / / Volume Laterality 03/21/2021 11:16 AM EDGE GLUE MACHINE TENDER Narrative 03/27/2021 1:38 PM EDGE GLUE MACHINE TENDER PURPOSE OF VISIT: ?? Implant of a [...] E (ABNORMAL) Glucose, POCT (03/21/2021 12:19 PM EDGE GLUE MACHINE TENDER) Analysis Performed At Patho logist Time Signature Glucose, POCT, 64 (L) 70 - 140 03/21/2021 PCLX B mg/dL 12:33 PM EDGE GLUE MACHINE TENDER Site Capillary 03/21/2021 PCLX 12:33 PM EDGE GLUE MACHINE TENDER Specimen Anatomical Collection Method Collection Time Receive d Time (Source) Location / / Volume Laterality Blood 03/21/2021 12:19 03/21/2021 PM EDGE GLUE MACHINE TENDER 12:33 PM EDGE GLUE MACHINE TENDER Unknown Provider LAB POCT ORDERABLES-MANUAL Performing Organization Address City/[facility]/ZIP [facility] Phon e Number POC [facility] [address] [place] [address] PCL[facility] [place] [address] [place] P[place] [address] [facility] ICD IMPLANT - SINGLE CHAMBER, VENOGRAPHY - SUBCLAVIAN (03/21/2021 12:06 PM EDGE GLUE MACHINE TENDER) Anatomical Region Laterality Modality X-Ray Angiography Specimen (Source) Anatomical Collection Method Collection Time Re ceived Time Location / / Volume Laterality 03/21/2021 11:16 AM EDGE GLUE MACHINE TENDER Narrative 03/21/2021 4:26 PM EDGE GLUE MACHINE TENDER For the complete report, see the Order-L [...] GY PROCS Glucose, POCT (03/21/2021 9:19 AM EDGE GLUE MACHINE TENDER) Analysis Performed At Patho logist Time Signature Glucose, POCT, 96 70 - 140 03/21/2021 PCLX B mg/dL 9:23 AM EDGE GLUE MACHINE TENDER Site Capillary 03/21/2021 PCLX 9:23 AM EDGE GLUE MACHINE TENDER Specimen Anatomical Collection Method Collection Time Receive d Time (Source) Location / / Volume Laterality Blood 03/21/2021 9:19 AM 9:23 EDGE GLUE MACHINE TENDER AM EDGE GLUE MACHINE TENDER Unknown Provider LAB POCT ORDERABLES-MANUAL Performing Organization Address City/[facility] Code Phon e Number POC [facility] [address] [place] [address] [place] [address] [place] POC [address] [facility] documented in this encounter Visit Diagnoses Diagnosis Cardiomyopathy Ischemic Diabetes Mellitus Type 2 Hyperglycemia ( HCC) Cardiomyopathy Ischemic Atherosclerotic Heart Disease [place] Cor onary Artery With Other Forms Angina [...] 1,000 mg (TYLENOL) Given 03/21/2021 12:50 PM EDGE GLUE MACHINE TENDER 1,000 mg 1,000 mg, oral, Every 6 hours PRN, mild pain or score 1-3 of 10, Starting on Sat03/21/21 at 1221, PACU & Post-Op fentaNYL (SUBLIMAZE) 50 mcg/mL injection - ADS Override Pull Starting on Sat03/21/21 at 1229, For 1 dose, Created by carmen override fentaNYL injection 25 mcg (SUBLIMAZE) 25 mcg, intravenous, Every 2 hour PRN, m oderate pain or score 4-6 of 10, Starting on Sat03/21/21 at 1221, PACU & Post-Op, May repeat x1 dosing interval, if patient unable to take oral analgesics or oral analgesics are ineffective fentaNYL injection 25 mcg (SUBLIMAZE) Given 03/21/2021 1:00 PM EDGE GLUE MACHINE TENDER 25 mcg 25 mcg, intravenous, Every 2 min PRN, moderate pain or score 4-6 of 10, severe pain or score 7-10 of 10, Starting on Sat03/21/21 at 1220, PACU (only), Up to maximum total dose of 200 mcg Given 03/21/2021 12:55 PM EDGE GLUE MACHINE TENDER 25 mcg Given 03/21/2021 12:43 PM EDGE GLUE MACHINE TENDER 25 mcg fentaNYL injection 50 mcg (SUBLIMAZE) 50 mcg, intravenous, Every 2 hour PRN, s evere pain or score 7-10 of 10, Starting on Sat03/21/21 at 1221, PACU & Post-Op, May repeat x1 do sing interval, if patient unable to take oral analgesics or oral analgesics are ineffective lidocaine 10 mg/mL (1 %) injection Given 03/21/2021 11:20 AM EDGE GLUE MACHINE TENDER 28 mL Left Chest (XYLOCAINE) As needed, Starting on Sat03/21/21 at 1123, Intraprocedure (CV) oxyCODONE (ROXICODONE) 5 mg IR tablet - ADS Override Pull Starting on Sat03/21/21 at 1441, For 1 dose, Created by cabinet override oxyCODONE IR tablet 5 mg (ROXICODONE) Given 03/21/2021 2:48 PM EDGE GLUE MACHINE TENDER 5 mg 5 mg, oral, Every 6 [...] Recently Administered Medications Times are shown in EDGE GLUE MACHINE TENDER. Scheduled Medication Order 03/19/2021 03/20/2021 03/21/2021 ceFAZolin injection 2,000 mg (ANCEF) (COMPLETED) 1110 (Given - Provider: Tamika Barry, AUTO CLUTCH SPECIALIST, DOOR MAKER, DNAP) 2,000 mg (rounded from 2,120 mg [...] 1250 (Given - Provider: [facility] Cary R[facility]., [facility] 1,000 mg, oral, Every 6 hours [...] 1243 (Given - Provider: Satinder Cary R.N., [facility]1255 (Given - Provider: Satinder Cary R.N., [facility]1300 (Given - Provider: Satinder Cary R.N., [facility]) 25 mcg, intravenous, Every 2 min [...] minutes. If nausea or vomiting persists ad senior clinical research associate next ordered antiemetic medicat ion (order for [...] 1448 (Given - Provider: Satinder Cary R.N., [facility] 5 mg, oral, Every 6 hours [...] ineffective
documented in this encounter Care Teams Manager Trading Relationship Specialty Start Date End Date Elsewhere, Pcp PCP - General 02/22/21 documented as of this encounter
--- OUTSIDE RECORDS SUMMARY | 2022-04-02 01:25 | XMS_ITS | Encounter Summary ---
:1965 Author Organization [facility] Address [address] [place] [id number] Care Team Providers Name Role Phone Elsewhere, Pcp Primary Care Provider Unavailable Encounter Details Date Type Department Care Team Description 03/20/2021 [facility] Department of Jorje, Cardiomyopathy Encounter Laboratory Aurelio Sharma, Ischemic Medicine and Anita, Ph.D. Pathology, [address] [phone] [place] [address] ([place]) [place] [address] Social History Tobacco Use Types Packs/Day Years [...] More than 4 times per year 02/09/2021 mandaen services? Do you belong to any clubs [...] place to sleep or slept in a snf (including now)? Education Answer Date Recorded What [...] as directed for 1 each 0 2020 [facility] [place] diabetes control. blood-glucose meter Test as [...] 0 03/13/2021 03/13/2022 reader (FreeStyle Jose 2 [place]) miscIndications: Diabetes Mellitus Type 2 Hyperglycemia (HCC) [...] FOUR per tablet HOURS NEEDED FOR PAIN gabapentin (NEURONTIN) Take 1 capsule (300 30 capsule 0 04/202003/21/2021 300 mg capsule mg total) by mouth at bedtime. metFORMIN XR Take 4 tablets (2,000 360 tablet 3 03/13/2021 1 05/21/2020 (GLUCOPHAGE-XR) 500 mg mg total) by mouth 24 hr daily with breakfast. tabletIndications: Diabetes Mellitus Type 2 Hyperglycemia (HCC) oxyCODONE (ROXICODONE) Take 1 tablet (5 mg 12 tablet 0 02/2803/24/2021 5 mg immediate release total) by mouth every tabletIndications: 6 (six) hours as Acute Pain needed for pain for up to 3 days Indication: acute pain. documented as of this encounter Plan of Treatment Not on filedocumented as of this encounter Procedures Procedure Name Priority Date/Time Associated Diagnosis Comme nts CBC WITH Routine 03/20/2021 3:00 PM Cardiomyopathy Ischemi c Results for this DIFFERENTIAL, B BALANCE SHEET ANALYST procedure ar e in the results section. documented in this encounter Results (ABNORMAL) CBC with Differential, Blood (03/20/2021 3:00 PM BALANCE SHEET ANALYST) [facility] Method Time Signature Hemoglobin 12.9 (L) 13.2 - 03/20/2021 DTL 16.6 g/dL 3:34 PM BALANCE SHEET ANALYST Hematocrit 40.1 38.3 - 03/20/2021 DTL 48.6 % 3:34 PM BALANCE SHEET ANALYST Erythrocytes 4.75 4.35 - 03/20/2021 DTL 5.65 3:34 PM BALANCE SHEET ANALYST x10(12)/L MCV 84.4 78.2 - 03/20/2021 DTL 97.9 fL 3:34 PM BALANCE SHEET ANALYST RBC Distrib Width 14.3 11.8 - 03/20/2021 DTL 14.5 % 3:34 PM BALANCE SHEET ANALYST Platelet Count 343 (H) 135 - 317 03/20/2021 DTL x10(9)/L 3:34 PM BALANCE SHEET ANALYST Leukocytes 13.5 (H) 3.4 - 9.6 03/20/2021 DTL x10(9)/L 3:34 PM BALANCE SHEET ANALYST Neutrophils 8.93 (H) 1.56 - 03/20/2021 DTL 6.45 3:34 PM BALANCE SHEET ANALYST x10(9)/L Lymphocytes 3.12 (H) 0.95 - 03/20/2021 DTL 3.07 3:34 PM BALANCE SHEET ANALYST x10(9)/L Monocytes 0.84 (H) 0.26 - 03/20/2021 DTL 0.81 3:34 PM BALANCE SHEET ANALYST x10(9)/L Eosinophils 0.42 0.03 - 03/20/2021 DTL 0.48 3:34 PM BALANCE SHEET ANALYST x10(9)/L Basophils 0.16 (H) 0.01 - 03/20/2021 DTL 0.08 3:34 PM BALANCE SHEET ANALYST x10(9)/L Specimen Anatomical Collection Method Collection Time Receive d Time (Source) Location / / Volume Laterality Blood (Blood, 03/20/2021 3:00 PM 03/20/20 3:27 Venous) BALANCE SHEET ANALYST PM BALANCE SHEET ANALYST Aurelio Recinos M.D., Ph.D. LAB BLOOD ADD-ON Performing Organization Address City/State/ZIP Code Phon e Number [facility] - [address] [place], [place] [address] [facility] [place] [address] [facility] [address] documented in this encounter Visit Diagnoses Diagnosis Cardiomyopathy Ischemic documented in this encounter Care Teams Meat And Poultry Inspector Relationship Specialty Start Date End Date Elsewhere, Pcp PCP - General 02/22/21 documented as of this encounter
--- OUTSIDE RECORDS SUMMARY | 2022-04-02 01:26 | XMS_ITS | Encounter Summary ---
:1965 Author Organization [facility] Address [address] [place] [address] Care Team Providers Name Role Phone Elsewhere, Pcp Primary Care Provider Unavailable Reason for Referral Outpatient (Routine) - Closed Specialty Diagnoses / Procedures Referred By Contact Refer red To Contact Diagnoses Atherosclerotic Heart Disease [place] Coronary Artery With Other Forms Angina Pectoris (Stable Angina/Angina Of Exertion) ([facility]) Omsan Wesley M.D. [facility] Procedures ECG Heart Rhythm Monitor (Holter) [address] [place] [address] Referral ID Status Reason Start Date Expiration Date Visits Requ ested Visits Authorized [id number] Closed 02/23/2021 02/23/2022 1 1 Reason for Visit Outpatient (Routine) - Closed Specialty Diagnoses / Procedures Referred By Contact Refer red To Contact Diagnoses Atherosclerotic Heart Disease [place] Coronary Artery With Other Forms Angina Pectoris (Stable Angina/Angina Of Exertion) ([facility]) Osman Wesley M.D. [facility] Procedures ECG Heart Rhythm Monitor (Holter) [address] [place] [address] Referral ID Status Reason Start Date Expiration Date Visits Requ ested Visits Authorized [id number] Closed 02/23/2021 02/23/2022 1 1 Encounter Details Date Type Department Care Team Description 02/23/2021 Hospital Department of Osman Wesley Heart Encounter Cardiovascular Anita Ahmadi Disease [place] Diseases in [place], [facility] [address] Coronary Artery With [place], [place] Other Forms Angina [address] [place] [address] Pectoris (Stable [place], [place] [phone] [place] [phone] (Work) Exertion) ([facility]) [phone] Social History Tobacco Use Types Packs/Day Years [...] or relatives? How often do you attend orthodox or More than 4 times per year 02/09/2021 cheondoism services? Do you belong to any clubs or Yes 02/09/2021 organizations such as orthodox groups, unions, fraternal or athletic groups, [...] place to sleep or slept in a half-way (including now)? Education Answer Date Recorded What [...] as directed for 1 each 0 2020 [facility] diabetes control. blood-glucose meter Test as directed for 1 each 0 2020 miscIndications: diabetes control. Diabetes Mellitus Type 2 Hyperglycemia (HCC) metoprolol succinate TAKE 1 TABLET BY 60 [...] tablet 0 202012/05/2021 mg tablet MOUTH DAILY lancetsIndications: 2 each daily. 100 each 1 12/06/2020 Diabetes Mellitus Type 2 Hyperglycemia (HCC) oxyCODONE-acetaminophen TAKE ONE-HALF TABLET 10 tablet 0 12/05/2021 (PERCOCET) 10-325 mg BY MOUTH EVERY FOUR per tablet HOURS NEEDED FOR PAIN furosemide (LASIX) 20 Take 1 tablet (20 mg 90 tablet 0 01/2703/08/2021 mg tablet total) by mouth daily. gabapentin (NEURONTIN) Take 1 capsule (300 30 capsule 0 04/202003/21/2021 300 mg capsule mg total) by mouth at bedtime. losartan (COZAAR) 100 Take 1 tablet (100 mg 30 tablet 0 12/202002/27/2021 mg tablet total) by mouth daily. metFORMIN (GLUCOPHAGE) Take 1 tablet (500 mg 360 tablet 4 03/13/2021 500 mg tablet total) by mouth as directed. 1 tab AM x 1 week then increase to 1 tab in AM and PM x1 week, increase to 2 tabs in AM and 1 tab in PM for 1 week then increase to 2 tabs twice daily. pantoprazole (PROTONIX) Take 1 tablet (40 mg 30 tablet 0 03/06/2021 40 mg EC tablet total) by mouth every morning before breakfast. documented as of this encounter Plan of Treatment Not on filedocumented as of this encounter Procedures Procedure Name Priority Date/Time Associated Diagnosis Comme nts HOLTER MONITOR - Routine 02/24/2021 2:54 PM Atherosclerotic He art Results for this IN CLINIC BUDGET ASSISTANT CDT Disease [place] Coronary procedure are in Artery With Other Forms the results Angina Pectoris (Stable sect ion. Angina/Angina Of Exertion) ([facility]) documented in this encounter Results HOLTER MONITOR - IN CLINIC BUDGET ASSISTANT (02/24/2021 2:54 PM CDT) [facility] gist Method Time Signature Min Heart Rate 70 bpm INFOBIONIC MOME Max Heart Rate 131 bpm INFOBIONIC MOME Mean Heart 86 bpm INFOBIONIC Rate MOME VE Total Beats 596 count INFOBIONIC MOME VE Percent less than percent INFOBIONIC Beats 1 MOME SVE Total 38 count INFOBIONIC Beats MOME SVE Percent less than percent INFOBIONIC Beats 1 MOME AF Count 0 count INFOBIONIC MOME AF Duration 0 duration INFOBIONIC MOME AF [place] 0 percent INFOBIONIC MOME Symptom Count 1 count INFOBIONIC MOME Specimen (Source) Anatomical Collection Method Collection Time Re ceived Time Location / / Volume Laterality 02/23/2021 2:44 PM CDT Narrative INFOBIONIC MOME - 02/27/2021 5:29 PM CDT 1. The basic rhythm was sinus. The total analyzed time was 19h 23m. The heart rate varied from 70 to 131 bpm. The average HR was 86 bpm. 2. Premature ventricular complexes were noted singly and once paired. There were 596 PVCs recorded with a PVC burden of less than 1%. 3. Premature supraventricular complexes were noted singly and in three 4-22 beat atrial runs. The atrial run rate was 135 bpm. There were 38 PACs recorded with a PAC burden of less than 1%. 4. A total of 1 symptomatic events were noted. At and around that time the rhythm was sinus and the heart rate varied was 102 bpm. VPCs were seen singly. Infectious Diseases Physician: Ida Reece/Leena Oconnell Note Carlos Ryder M.D., Ph.D. - 02/27/2021Fo rmatting of this note might be different from the original. 1. The basic rhythm was sinus. The total analyzed time was 19h 23m. The heart rate varied from 70 to 131 bpm. The average HR was 86 bpm. 2. Premature ventricular complexes were noted singly and once paired. There were 596 PVCs recorded with a PVC burden of less than 1%. 3. Premature supraventricular complexes were noted singly and in three 4-22 beat atrial runs. The atrial run rate was 135 bpm. There were 38 PACs recorded with a PAC burden of less than 1%. 4. A total of 1 symptomatic events were noted. At and around that time the rhythm was sinus and the heart rate varied was 102 bpm. VPCs were seen singly. Infectious Diseases Physician: Ida Reece/Leena Oconnell Osman Wesley M.D. CV CARDIAC SERVICES PROCEDUR ES Performing Organization Address City/State/ZIP Code Phon e Number INFOBIONIC MOME INFOBIONIC MOME NA documented in this encounter Visit Diagnoses Diagnosis Atherosclerotic Heart Disease [place] Cor onary Artery With Other Forms Angina Pectoris (Stable Angina/Angina Of Exertion) (HCC) documented in this encounter Care Teams Community Health Counselor Relationship Specialty Start Date End Date Elsewhere, Pcp PCP - General 02/22/21 documented as of this encounter
--- OUTSIDE RECORDS SUMMARY | 2022-04-02 01:26 | XMS_ITS | Encounter Summary ---
:1965 Author Organization [facility] Address [address] [place] [address] Care Team Providers Name Role Phone Elsewhere, Pcp Primary Care Provider Unavailable Reason for Visit Reason Comments Pre-scheduling Questionnaire Encounter Details Date Type Department Care Team Description 02/27/2021 Clinical Department of Prescheduling, Pre-scheduli ng Communication Orthopedic Surgery Provider Question marycarmen in [place], [place] [address] [place] [address] Social History Tobacco Use Types Packs/Day Years [...] or relatives? How often do you attend yazdanism or More than 4 times per year 02/09/2021 jain services? Do you belong to any clubs or Yes 02/09/2021 organizations such as yazdanism groups, unions, fraternal or athletic groups, or [...] place to sleep or slept in a longterm (including now)? Education Answer Date Recorded What is the highest level of school you have completed or th e 9th grade 02/09/2021 highest degree you have received? Sex Assigned at Date Recorded Male 02/09/2021 2:11 PM CDT documented as of this encounter Miscellaneous Notes Telephone Encounter - Essence [place] - 02/27/2021 2:27 PM CDT Upper Extremity Pre-Scheduling documented in this encounter Plan of Treatment Not on filedocumented as of this encounter Visit Diagnoses Not on filedocumented in this encounter Care Teams Senior Lead Software Engineer Relationship Specialty Start Date End Date Elsewhere, Pcp PCP - General 02/22/21 documented as of this encounter
--- OUTSIDE RECORDS SUMMARY | 2022-04-02 01:26 | XMS_ITS | Encounter Summary ---
:1965 Author Organization [facility] Address [address] [place] [address] Care Team Providers Name Role Phone Elsewhere, Pcp Primary Care Provider Unavailable Reason for Visit Reason Comments Pleural Effusion Encounter Details Date Type Department Care Team Description 02/23/2021 Documentation Division of Pulmonary Greg Camacho, Pleural Effusion Medicine in [place], Zahraa Nieves M.D. [place] [address] [facility] [address] [place] [id number] [phone] Social History Tobacco Use Types Packs/Day Years [...] place to sleep or slept in a residential (including now)? Education Answer Date Recorded What is the highest level of school you have completed or th e 9th grade 02/09/2021 highest degree you have received? Sex Assigned at Date Recorded Male 02/09/2021 2:11 PM CDT documented as of this encounter Progress Notes Zahraa Rodriguez M.D. - 02/23/2021 5:19 PM CDT I called Mr. Fairbanks to discuss results of chest X ray done today. His pleural effusion has decreased in size, and he is not symptomatic from it at the moment. He continues to have chest pain and he is having cardiac cath tomorrow. I discussed with him that we do not need to do repeat thoracentesis right now, but we might consider it in the future if he becomes symptomatic again. documented in this encounter Plan of Treatment Not on filedocumented as of this encounter Visit Diagnoses Not on filedocumented in this encounter Care Teams Tumbler Plater Relationship Specialty Start Date End Date Elsewhere, Pcp PCP - General 02/22/21 documented as of this encounter
--- OUTSIDE RECORDS SUMMARY | 2022-04-02 01:26 | XMS_ITS | Encounter Summary ---
:1965 Author Organization [facility] Address [address] [place] [address] Care Team Providers Name Role Phone Elsewhere, Pcp Primary Care Provider Unavailable Encounter Details Date Type Department Care Team Description 03/08/2021 Hospital Encounter Department of Osman Wesley Cardi omyopathy Ischemic; Laboratory Medicine MLisaDLisa Congestive Heart Failure Ejection Fracti on Less Than 40 Percent (HCC); and Pathology, [address] [place] [address] Failure Heart (HCC) [place] [id number] [place] [phone] [address] [facility] (Work) [place], [place] [phone] [address] (Fax) [phone] Social History Tobacco Use Types Packs/Day Years [...] or relatives? How often do you attend restoration or More than 4 times per year 02/09/2021 mu-ism services? Do you belong to any clubs or Yes 02/09/2021 organizations such as restoration groups, unions, fraternal or athletic groups, or [...] as directed for 1 each 0 2020 [facility] diabetes control. blood-glucose meter Test as directed [...] mg total) by mouth at bedtime. metFORMIN (GLUCOPHAGE) Take 1 tablet (500 mg 360 tablet 4 03/13/2021 500 mg tablet total) by mouth as directed. 1 tab AM x 1 week then increase to 1 tab in AM and PM x1 week, increase to 2 tabs in AM and 1 tab in PM for 1 week then increase to 2 tabs twice daily. oxyCODONE (ROXICODONE) Take 1 tablet (5 mg 12 tablet 0 02/2803/24/2021 5 mg immediate release total) by mouth every tabletIndications: 6 (six) hours as Acute Pain needed for pain for up to 3 days Indication: acute pain. documented as of this encounter Plan of Treatment Not on filedocumented as of this encounter Procedures Procedure Name Priority Date/Time Associated Diagnosis Comme nts NT-PRO B-TYPE Routine 03/08/2021 6:49 Failure Heart (HCC) Resu lts for this NATRIURETIC PEPTIDE AM TOP STITCHER procedur e are in (BNP), S the results section. PROTHROMBIN TIME Routine 03/08/2021 6:49 Cardiomyopathy Result s for this (PT), P AM TOP STITCHER Ischemic procedure are in Congestive Heart the results Failure Ejection section. Fraction Less Than 40 Percent (HCC) Failure Heart (HCC) TYPE AND SCREEN Routine 03/08/2021 6:49 Cardiomyopathy Results for this AM TOP STITCHER Ischemic procedure are in Congestive Heart the results Failure Ejection section. Fraction Less Than 40 Percent (HCC) Failure Heart (HCC) URIC ACID, S/P Routine 03/08/2021 6:49 Failure Heart (HCC) Res ults for this AM TOP STITCHER procedure are i n the results section. BUN (BLOOD UREA Routine 03/08/2021 6:49 Failure Heart (HCC) Re sults for this NITROGEN), S/P AM TOP STITCHER procedure are in the results section. SODIUM, S/P Routine 03/08/2021 6:49 Failure Heart (HCC) Resul ts for this AM TOP STITCHER procedure are i n the results section. POTASSIUM, S/P Routine 03/08/2021 6:49 Failure Heart (HCC) Res ults for this AM TOP STITCHER procedure are i n the results section. CREATININE WITH Routine 03/08/2021 6:49 Failure Heart (HCC) Re sults for this EGFR, S/P AM TOP STITCHER procedure are i n the results section. documented in this encounter Results Uric Acid (03/08/2021 6:49 AM TOP STITCHER) athologist [facility] Uric Acid, S 7.0 3.7 - 8.0 03/08/2021 DTL mg/dL 8:05 AM TOP STITCHER Specimen Anatomical Collection Method Collection Time Receive d Time (Source) Location / / Volume Laterality Blood (Blood, 03/08/2021 6:49 AM 03/08/20 7:37 Venous) TOP STITCHER AM TOP STITCHER Osman Wesley M.D. LAB BLOOD ADD-ON Performing Organization Address City/[facility] Phon e Number [facility] - [address] [place], [place] [address] [place] [address] [facility] Sodium (03/08/2021 6:49 AM TOP STITCHER) [facility] Sodium, S 140 135 - 145 03/08/2021 8:05 DTL mmol/L AM TOP STITCHER Specimen Anatomical Collection Method Collection Time Receive d Time (Source) Location / / Volume Laterality Blood (Blood, 03/08/2021 6:49 AM 03/08/20 7:37 Venous) TOP STITCHER AM TOP STITCHER Osman Wesley M.D. LAB BLOOD ADD-ON Performing Organization Address City/State/[facility] Code Phon e Number [facility] - [address] [place], [place] [address] [place] [id number] [address] (ABNORMAL) NT-Pro B-Type Natriuretic Peptide (BNP) (03/08/2021 6:49 AM TOP STITCHER) [facility] NT-Pro BNP 608 (H) <=67 pg/mL 03/08/2021 DTL 8:05 AM TOP STITCHER Comment: NT-proBNP values less than 300 pg/mL [...] Location / / Volume Laterality Blood (Blood, 03/08/2021 6:49 AM 03/08/20 7:37 Venous) TOP STITCHER AM TOP STITCHER Osman Wesley M.D. LAB BLOOD ADD-ON Performing Organization Address City/State/ZIP Code Phon e Number [facility] - [address] [place], [place] [address] [place] [address] Laboratories-[address] Potassium (03/08/2021 6:49 AM TOP STITCHER) athologist Signature Potassium, S 4.8 3.6 - 5.2 03/08/2021 DTL mmol/L 8:05 AM TOP STITCHER Specimen Anatomical Collection Method Collection Time Receive d Time (Source) Location / / Volume Laterality Blood (Blood, 03/08/2021 6:49 AM 03/08/20 7:37 Venous) TOP STITCHER AM TOP STITCHER Osman Wesley M.D. LAB BLOOD ADD-ON Performing Organization Address City/[facility] Code Phon e Number [facility] - [address] [place], [place] [address] [place] [id number] [place] [address] Creatinine with Estimated GFR (03/08/2021 6:49 AM TOP STITCHER) athologist Signature Creatinine 0.99 0.74 - 03/08/2021 DTL 1.35 mg/dL 8:05 AM TOP STITCHER eGFR-Non 86 >=60 03/08/2021 DTL Black/ mL/min/BSA 8:05 AM TOP STITCHER [place] Comment: ----ADDITIONAL INFORMATION---- Estimated GFR calculated using the 2009 CKD_EPI creatinine equation. eGFR-Black/ >90 >=60 mL/min/BSA 2020 8:05 AM TOP STITCHER DTL Comment: ----ADDITIONAL INFORMATION---- Estimated GFR calculated using the 2009 CKD_EPI creatinine equation. Specimen Anatomical Collection Method Collection Time Receive d Time (Source) Location / / Volume Laterality Blood (Blood, 03/08/2021 6:49 AM 03/08/20 7:37 Venous) TOP STITCHER AM TOP STITCHER Osman Wesley M.D. LAB BLOOD ADD-ON Performing Organization Address City/State/ZIP Code Phon e Number [facility] - [address] [place], [place] [address] [place] [address] Laboratories-[facility] [address] BUN (Blood Urea Nitrogen) (03/08/2021 6:49 AM TOP STITCHER) P athologist Signature BUN (Blood Urea 17 8 - 24 03/08/2021 DTL Nitrogen), S mg/dL 8:05 AM TOP STITCHER Specimen Anatomical Collection Method Collection Time Receive d Time (Source) Location / / Volume Laterality Blood (Blood, 03/08/2021 6:49 AM 03/08/20 7:37 Venous) TOP STITCHER AM TOP STITCHER Osman Wesley M.D. LAB BLOOD ADD-ON Performing Organization Address City/[facility]/ZIP Code Phon e Number [facility] - [address] [place], [place] [address] [place] [address] [facility] [address] Type and Screen (with reflex Antibody ID) (03/08/2021 6:49 AM TOP STITCHER) Patholo gist Method Time Signature ABORh A Pos Not 03/08/2021 ETRM applicable 3:22 PM TOP STITCHER Antibody Negative Negative 03/08/2021 ETRM Screen 3:38 PM TOP STITCHER Type & Screen 05/06/2021 03/08/2021 ETRM Expiration 23:59 3:22 PM TOP STITCHER Testing [place] DEFAULT 03/08/2021 ETRM Location 7:31 AM TOP STITCHER Specimen Anatomical Collection Method Collection Time Receive d Time (Source) Location / / Volume Laterality Blood (Blood, 03/08/2021 6:49 AM 03/08/20 7:31 Venous) TOP STITCHER AM TOP STITCHER Osman Wesley M.D. LAB BLOOD BANK TEST ORDERABL ES Performing Organization Address City/State/ZIP Code Phon e Number [facility] - [address] [place], [place] [address] [place] [address] [facility] [address] Prothrombin Time (PT) (03/08/2021 6:49 AM TOP STITCHER) P athologist Signature Prothrombin 11.4 9.4 - 12.5 03/08/2021 DTL Time, P sec 7:47 AM TOP STITCHER INR 1.0 0.9 - 1.1 03/08/2021 DTL 7:47 AM TOP STITCHER Comment: ----ADDITIONAL INFORMATION---- Standard intensity warfarin therapeutic range: 2.0 to 3.0 ?? High intensity warfarin therapeutic rang e: 2.5 to 3.5 Specimen Anatomical Collection Method Collection Time Receive d Time (Source) Location / / Volume Laterality Blood (Blood, 03/08/2021 6:49 AM 03/08/20 7:26 Venous) TOP STITCHER AM TOP STITCHER Osman Wesley M.D. LAB BLOOD ADD-ON Performing Organization Address City/State/ZIP Code Phon e Number [facility] - [address] [place], [place] [address] [place] [address] Laboratories-[facility] [address] documented in this encounter Visit Diagnoses Diagnosis Cardiomyopathy Ischemic Congestive Heart Failure Ejection Fracti on Less Than 40 Percent (HCC) Failure Heart (HCC) documented in this encounter Care Teams Operator Receptionist Relationship Specialty Start Date End Date Elsewhere, Pcp PCP - General 02/22/21 documented as of this encounter
--- OUTSIDE RECORDS SUMMARY | 2022-04-02 01:26 | XMS_ITS | Encounter Summary ---
:1965 Author Organization [facility] Address [address] [place] [address] Care Team Providers Name Role Phone Elsewhere, Pcp Primary Care Provider Unavailable Encounter Details Date Type Department Care Team Description 02/24/2021 Surgery Division of Cardiovascular Cat Rizo, Coronary Angiography Diseases in [facility] Anita [place] [address] [place] [id number] [phone] Social History Tobacco Use Types Packs/Day Years [...] or relatives? How often do you attend scientologist or More than 4 times per year 02/09/2021 islam services? Do you belong to any clubs or Yes 02/09/2021 organizations such as scientologist groups, unions, fraternal or athletic groups, or [...] place to sleep or slept in a alf (including now)? Education Answer Date Recorded What is the highest level of school you have completed or th e 9th grade 02/09/2021 highest degree you have received? Sex Assigned at Date Recorded Male 02/09/2021 2:11 PM CDT documented as of this encounter Discharge Instructions AttachmentsThe following attachments cannot be sent through Care Everywhere.Care Following Your Catheter Procedure (Armenian)documented in this encounter Medications at Time of [...] as directed for 1 each 0 2020 [facility] [place]. blood-glucose meter Test as directed for 1 each 0 2020 miscIndications: diabetes control. Diabetes Mellitus Type 2 Hyperglycemia (HCC) metoprolol succinate TAKE 1 TABLET BY 60 tablet 1 (TOPROL-XL) 100 mg 24 MOUTH DAILY, [...] before breakfast. documented as of this encounter Miscellaneous Notes Note - Kirti Donovan R.N. - 02/24/2021 6:07 PM CDT The patient???s radial site / dressing is dry and intact. Vital signs are stable. No complaints of chest pain. Palpable radial pulse. Normal plethysmography of the right/left index finger with manual ulnar occlusion applied. No hematoma or bleeding present. No change in neuro status from prior to procedure. Ambulated without difficulty. Dismissal instructions were reviewed in detail as per [id number] with patient and family. They verbalized understanding. Follow up appointment is arranged. Patient was dismissed when discharge criteria was met, accompanied by family. All questions answered. documented in this encounter Plan of Treatment Not on filedocumented as of this encounter Procedures Procedure Name Priority Date/Time Associated Diagnosis Comme nts CARDIAC Routine 02/24/2021 4:27 Atherosclerotic Heart Res ults for this CATHETERIZATION PM CDT Disease [place] procedure are in Coronary Artery With the res ults Other Forms Angina section. Pectoris (Stable Angina/Angina Of Exertion) ([facility]) CARDIAC Routine 02/24/2021 4:27 Atherosclerotic Heart Res ults for this CATHETERIZATION PM CDT Disease [place] procedure are in Coronary Artery With the res ults Other Forms Angina section. Pectoris (Stable Angina/Angina Of Exertion) ([facility]) ADULT OXYGEN THERAPY Routine 02/24/2021 3:24 PM CDT GLUCOSE POCT, B Routine 02/24/2021 1:15 Results f or this PM CDT procedure are i n the results section. documented in this encounter Results CORONARY ANGIOGRAPHY, IFR (02/24/2021 4:27 PM CDT) Anatomical Region Laterality Modality X-Ray Angiography Specimen (Source) Anatomical Collection Method Collection Time Re ceived Time Location / / Volume Laterality 02/24/2021 3:46 PM CDT Narrative 02/27/2021 5:48 PM CDT For the complete report, see the Order-L evel Documents. PROCEDURE TYPES 1. ??CORONARY ANGIOGRAPHY 2. ??INSTANTANEOUS FLOW RESERVE FINAL DIAGNOSIS 1. ??Moderate diffuse multivessel kellogg ry artery atherosclerosis 2. ??Instantaneous wave-free ratio (iFR) in the distal LAD and left posterolateral (and its branches) is above the ischemic threshold. PRE-PROCEDURE DIAGNOSIS 1. ??Atherosclerotic Heart Disease Nativ e Coronary Artery With Other Forms Angina Pectoris (Stable Angina/Angina Of Exertion) (HCC) CORONARY DIAGNOSTIC SUMMARY Coronary artery dominance is left. ??The ??right coronary was not injected. Limited images of the left coronary melonie joy obtained for measurement of iFR. See prior angiogram (12/02/2020) for complete imaging and report. The left main coronary artery is 10% obs tructed by a discrete lesion. The proximal left anterior descending ar jean-pierre is 20% obstructed by a discrete lesion. The middle left anterior descending melonie ry is 40% obstructed by a tubular lesion. The distal left anterior descending melonie ry is 30% obstructed by diffuse disease. The left atrioventricular groove branch is 50% obstructed by a discrete lesion. The left posterior descending artery is 50% obstructed by diffuse disease. The distal segment is small size. The first left posterolateral branch is 30% obstructed by diffuse disease. The distal segment is normal size. The second left posterolateral branch is 50% obstructed by a discrete lesion. The distal segment is normal size, diffuse diseased. The first obtuse marginal is 50% obstruc tia by a discrete lesion. INTRACORONARY PRESSURE SUMMARY An intracoronary pressure study of the L eft Atrioventricular Groove Branch was performed. IFR measurement is 0.92. No complications. An intracoronary pressure study of the L eft Posterolateral Segment was performed. IFR measurement is 0.94. No complications. An intracoronary pressure study of the F irst Left Posterolateral Branch was performed. IFR measurement is 0.96. No complications. An intracoronary pressure study of the S econd Left Posterolateral Branch was performed. IFR measurement is 0.92. No complications. An intracoronary pressure study of the D istal Left Anterior Descending Artery was performed. IFR measurement is 0.90. No complications. dLAD pullback demonstrates a diffuse gra dient across the LAD. CONTRAST DOSE DATA IOHEXOL 350 MG IODINE/ML INTRAVENOUS GRANT UTION: 55mL For the complete report, see the Order-L evel Documents. Osman Wesley M.D. CV CARDIAC CATH PROCEDURES (ABNORMAL) Glucose, POCT (02/24/2021 1:15 PM CDT) P athologist Signature Glucose, POCT, 155 (H) 70 - 140 02/24/2021 PCLX B mg/dL 1:28 PM CDT Specimen Anatomical Collection Method Collection Time Receive d Time (Source) Location / / Volume Laterality Blood 02/24/2021 1:15 PM 1:28 CDT PM CDT Unknown Provider LAB POCT ORDERABLES-MANUAL Performing Organization Address City/State/ZIP Code Phon e Number POC [facility] [address] [place] [address] [place] [address] [place] [facility] [address] documented in this encounter Visit Diagnoses Diagnosis Atherosclerotic Heart Disease [place] Cor onary Artery With Other Forms Angina Pectoris (Stable Angina/Angina Of Exertion) (HCC) - Primary Atherosclerotic Heart Disease [place] Cor onary Artery With Other Forms Angina Pectoris (Stable Angina/Angina Of Exertion) (HCC) documented in this encounter Admitting Diagnoses Diagnosis Atherosclerotic Heart Disease [place] Cor onary Artery With Other Forms Angina Pectoris (Stable Angina/Angina Of Exertion) (HCC) documented in this encounter Administered Medications Inactive Administered Medications - up to 3 most recent administrations Medication Order MAR Action Action Date Dose Rate Site aspirin chewable tablet 324 mg Given 02/24/2021 1:30 PM CDT 324 mg 324 mg, oral, Once, On Sat02/24/21 at 1330, For 1 dose, Preprocedure (CV) clopidogreL tablet 75 mg (PLAVIX) Given 02/24/2021 1:30 PM CDT 75 mg 75 mg, oral, Once, On Sat02/24/21 at 1330, For 1 dose, Preprocedure (CV), Morning of procedure fentaNYL injection (SUBLIMAZE) Given 02/24/2021 4:18 PM CDT 25 mcg As needed, Starting on Sat02/24/21 at 1535, Intraprocedure (CV) Given 02/24/2021 3:38 PM CDT 25 mcg Given 02/24/2021 3:35 PM CDT 25 mcg fentaNYL injection 25 mcg (SUBLIMAZE) 25 mcg, intravenous, Every 2 min PRN, mo derate pain or score 4-6 of 10, severe pain or score 7-10 of 10, Administer over 1 m inute immediately prior to the procedure. May repeat every 2 minutes to a maximum of 200 mcg, until pain score of 3 or less, or until the patient meets the pain comf ort goal. Do not give if respiratory rate is less than 8 breaths/minute, Starting on Sat 1 at 1524, Intraprocedure (CV) flumazeniL injection 0.2 mg (ROMAZICON) 0.2 mg, intravenous, Once as needed, rev ersal, Starting on Sat02/24/21 at 1524, For 1 dose, Intraprocedure (CV), Adminis ter once if patient has a RASS score of -4, -5 and has a respiratory rate less than 8 breaths/jeffrey te. heparin (porcine) 1,000 unit/mL Given 02/24/2021 4:07 PM CDT 3,0 00 Units injection As needed, Starting on Sat02/24/21 at 1556, Intraprocedure (CV) Given 02/24/2021 3:56 PM CDT 5,000 Units iohexoL 350 mg iodine/mL solution (OMNIP AQUE) Given 02/24/2021 4:24 PM CDT 55 mL As needed, Starting on Sat02/24/21 at 1624, Intraprocedure (CV) lidocaine 10 mg/mL (1 %) injection Given 02/24/2021 3:48 PM CDT 2 mL Right Wrist (XYLOCAINE) As needed, Starting on Sat02/24/21 at 1548, Intraprocedure (CV) midazolam (PF) injection (VERSED) Given 02/24/2021 3:48 PM CDT 0.5 mg As needed, Starting on Sat02/24/21 at 1535, Intraprocedure (CV) Given 02/24/2021 3:45 PM CDT 0.5 mg Given 02/24/2021 3:35 PM CDT 1 mg midazolam (PF) injection 0.25 mg (VERSED ) 0.25 mg, intravenous, Every 2 min PRN, s edation, RASS -2, Starting on Sat02/24/21 at 1524, Intraprocedure (CV), May repeat every 2 minutes to a maximum of 5 mg. Do not give if respiratory rate is less than 8 breaths/mi nute. midazolam (PF) injection 0.5 mg (VERSED) 0.5 mg, intravenous, Once as needed, sed ation, Starting on Sat02/24/21 at 1524, For 1 dose, Intraprocedure (CV) midazolam (PF) injection 0.5 mg (VERSED) 0.5 mg, intravenous, Every 2 min PRN, se dation, RASS -1, Starting on Sat02/24/21 at 1524, Intraprocedure (CV), May repeat every 2 minutes for a maximum of 5 mg. Do not give if respiratory rate is less than 8 breaths/mi nute. midazolam (PF) injection 1 mg (VERSED) 1 mg, intravenous, Every 2 min PRN, prudence tion, RASS 0, Starting on Sat02/24/21 at 1524, Intraprocedure (CV), May repeat ev lydia 2 minutes for a maximum of 5 mg. Do not give if respiratory rate is less than 8 breaths/minute . NaCl 0.9% infusion 20 mL/hr, intravenous, Once as needed, t o keep vein open, Starting on Sat02/24/21 at 1524, For 1 dose, Intraprocedure (CV) naloxone injection 0.2 mg (NARCAN) 0.2 mg, intravenous, Once as needed, respiratory depre ssion, Starting on Sat02/24/21 at 1524, For 1 dose, Intraproce dure (CV), Administer once if patient has a RASS score of -4, -5 and has a respiratory rate less t calderon 8 breaths/minute. nitroglycerin in D5W 100 mcg/mL syringe (for Given 3:56 PM CDT 200 mcg intra-arterial use only) As needed, Starting on Sat02/24/21 at 1556, Intraprocedure (CV) sodium chloride 0.9 % injection 10 mL 10 mL, intravenous, As needed, line care, Starting on Sat02/24/21 at 1320, Preprocedure (CV), Peripheral Intravenous Catheter and Rapid Infusion Catheter, prior to blood sampling, post blood transfusion or pos t blood sampling sodium chloride 0.9 % injection 10 mL 10 mL, intravenous, As needed, line care, Starting on Sat02/24/21 at 1524, Intraprocedure (CV), Peripheral Intraven ous Catheter and Rapid Infusion Catheter, prior to blood sampling, post blood transfusion or pos t blood sampling sodium chloride 0.9 % injection 3 mL 3 mL, intravenous, As needed, line care, Starting on 02/24/21 at 1320, Preprocedure (CV), Prior to and followin g infusion and between multiple consecutive infusions: sodium chloride 0.9 % injection sodium chloride 0.9 % injection 3 mL 3 mL, intravenous, Every 12 hours schedu led, First dose on Sat02/24/21 at 2100, Preprocedure (CV), Peripheral Intravenous Catheter and Rapid Infusion Catheter, when no infusion to maintain patency sodium chloride 0.9 % injection 3 mL 3 mL, intravenous, As needed, line care, Starting on 02/24/21 at 1524, Intraprocedure (CV), Prior to and following infusion a nd between multiple consecutive infusions: sodium chloride 0.9 % injection sodium chloride 0.9 % injection 3 mL 3 mL, intravenous, Every 12 hours schedu led, First dose on Sat02/24/21 at 2100, Intraprocedure (CV), Peripheral Intraven ous Catheter and Rapid Infusion Catheter, when no infusion to maintain patency verapamiL injection (ISOPTIN) Given 02/24/2021 3:54 PM CDT 5 mg As needed, Starting on Sat02/24/21 at 1554, Intraprocedure (CV) documented in this encounter Active and Recently Administered Medications Times are shown in CDT. Scheduled Medication Order 02/22/2021 02/23/2021 02/24/2021 aspirin chewable tablet 324 mg (COMPLETED) 1330 (Given - Provider: Lexii Stuart R.N.) 324 mg, oral, Once, On Sat02/24/21 at 1330, For 1 dose, Preproc edure (CV) clopidogreL tablet 75 mg (PLAVIX) (COMPLETED) 1330 (Given - Provider: Lexiianders Stuart R.N.) 75 mg, oral, Once, On Sat02/24/21 at 13 30, For 1 dose, Preprocedure (CV), Morning of procedure sodium chloride 0.9 % injection 3 mL 3 mL, intravenous, Every 12 hours schedu led, First dose on Sat02/24/21 at 2100, Preprocedure (CV), Peripheral Intravenous Catheter and Rapid Infusion Catheter, when no infusion to maintain patency sodium chloride 0.9 % injection 3 mL 3 mL, intravenous, Every 12 hours schedu led, First dose on Sat02/24/21 at 2100, Intraprocedure (CV), Peripheral Intravenous Catheter and Rapid Infusion Catheter, when no infusion to maintain patency PRN Medication Order 02/22/2021 02/23/2021 02/24/2021 fentaNYL injection (SUBLIMAZE) (CANCELED) 1535 (Given - Provider: Irene Gibson R.N.)1538 (Given - Provider: Irene Gibson R.N.)1618 (Given - Provider: Carrie MclainNLisa) As needed, Starting on Sat02/24/21 at 1535, Intraprocedure (CV) fentaNYL injection 25 mcg (SUBLIMAZE) 25 mcg, intravenous, Every 2 min PRN, mo derate pain or score 4-6 of 10, severe pain or score 7-10 of 10, Administer over 1 minute immediately prior to the procedure. May repeat every 2 minutes to a maxi mum of 200 mcg, until pain score of 3 or less, or until the patient meets the pain comfort goal. Do not give if respiratory rate is less than 8 breaths/minute, Starting on Sat02/24/21 at 1524, Intraprocedure (CV) flumazeniL injection 0.2 mg (ROMAZICON) 0.2 mg, intravenous, Once as needed, rev ersal, Starting on Sat02/24/21 at 1524, For 1 dose, Intraprocedure (CV), Administer once if patient has a RASS score of -4, -5 and has a respiratory rate less than 8 breaths/minute. heparin (porcine) 1,000 unit/mL injection (CANCELED) 1556 (Given - Provider: Irene Gibson R.N.)1607 (Given - Provider: Irene Gibson R.N.) As needed, Starting on Sat02/24/21 at 1556, Intraprocedure (CV) iohexoL 350 mg iodine/mL solution (OMNIPAQUE) (CANCELED) 1624 (Given - Provider: Monico Rizo M.D.) As needed, Starting on Sat02/24/21 at 1624, Intraprocedure (CV) lidocaine 10 mg/mL (1 %) injection (XYLOCAINE) (CANCELED) 1548 (Given - Provider: Monico Rizo M.D.) As needed, Starting on Sat02/24/21 at 1548, Intraprocedure (CV) midazolam (PF) injection (VERSED) (CANCELED) 1535 (Given - Provider: Irene Gibson R.N.)1545 (Given - Provider: Irene Gibson R.N.)1548 (Given - Provider: Irene Gibson R.N.) As needed, Starting on Sat02/24/21 at 1535, Intraprocedure (CV) midazolam (PF) injection 0.25 mg (VERSED) 0.25 mg, intravenous, Every 2 min PRN, s edation, RASS -2, Starting on Sat02/24/21 at 1524, Intraprocedure (CV), May repeat every 2 minutes to a maximum of 5 mg. Do not give if respiratory rate is less than 8 breaths/minute. midazolam (PF) injection 0.5 mg (VERSED) 0.5 mg, intravenous, Once as needed, sed ation, Starting on Sat02/24/21 at 1524, For 1 dose, Intraprocedure (CV) midazolam (PF) injection 0.5 mg (VERSED) 0.5 mg, intravenous, Every 2 min PRN, se dation, RASS -1, Starting on Sat02/24/21 at 1524, Intraprocedure (CV), May repeat every 2 minutes for a maximum of 5 mg. Do not give if respiratory rate is less than 8 breaths/minute. midazolam (PF) injection 1 mg (VERSED) 1 mg, intravenous, Every 2 min PRN, prudence tion, RASS 0, Starting on Sat02/24/21 at 1524, Intraprocedure (CV), May repeat every 2 minutes for a maximum of 5 mg. Do not give if respiratory rate is less than 8 breaths/minute. NaCl 0.9% infusion 20 mL/hr, intravenous, Once as needed, t o keep vein open, Starting on Sat02/24/21 at 1524, For 1 dose, Intraprocedure (CV) naloxone injection 0.2 mg (NARCAN) 0.2 mg, intravenous, Once as needed, res piratory depression, Starting on Sat02/24/21 at 1524, For 1 dose, Intraprocedure (CV), Administer once if patient has a RASS score of -4, -5 and has a respiratory rate less than 8 breaths/minute. nitroglycerin in D5W 100 mcg/mL syringe (for intra-arterial use only) (CANCELED) 1556 (Given - Provid er: Monico Rizo M.D.) As needed, Starting on Sat02/24/21 at 1556, Intraprocedure (CV) sodium chloride 0.9 % injection 10 mL 10 mL, intravenous, As needed, line care , Starting on Sat02/24/21 at 1320, Preprocedure (CV), Peripheral Intravenous Catheter and Rapid Infusion Catheter, prior to blood sampling, post blood transfusion or post blood sampling sodium chloride 0.9 % injection 10 mL 10 mL, intravenous, As needed, line care , Starting on Sat02/24/21 at 1524, Intraprocedure (CV), Peripheral Intravenous Catheter and Rapid Infusion Catheter, prior to blood sampling, post blood transfusion or post blood sampling sodium chloride 0.9 % injection 3 mL 3 mL, intravenous, As needed, line care, Starting on Sat02/24/21 at 1320, Preprocedure (CV), Prior to and following infusion and between multiple consecutive infusions: sodium chloride 0.9 % injection sodium chloride 0.9 % injection 3 mL 3 mL, intravenous, As needed, line care, Starting on Sat02/24/21 at 1524, Intraprocedure (CV), Prior to and following infusion and between multiple consecutive infusions: sodium chloride 0.9 % injection verapamiL injection (ISOPTIN) (CANCELED) 1554 (Given - Provider: Monico Rizo M.D.) As needed, Starting on Sat02/24/21 at 1554, Intraprocedure (CV) documented in this encounter Care Teams Stepdown Nurse Relationship Specialty Start Date End Date Elsewhere, Pcp PCP - General 02/22/21 documented as of this encounter
--- OUTSIDE RECORDS SUMMARY | 2022-04-02 01:26 | XMS_ITS | Encounter Summary ---
:1965 Author Organization [facility] Address [address] [place] [address] Care Team Providers Name Role Phone Elsewhere, Pcp Primary Care Provider Unavailable Encounter Details Date Type Department Care Team Description 03/08/2021 Education Department of Osman Wesley M.D. [address] [place] [address] Failure Heart ([facility]) Cardiovascular Medicine in Phuong Nichols RKristin [place], [place] [address] [place] [address] Social History Tobacco Use Types Packs/Day Years [...] More than 4 times per year 02/09/2021 sabianism services? Do you belong to any clubs [...] documented as of this encounter Progress Notes Phuong Nichols R.N. - 03/08/2021 9:30 AM CST HISTORY OF PRESENT ILLNESS Patient seen at the request of Dr. Godfrey for education on heart failure dietary sodium and fluid recommendations. ASSESSMENT / PLAN Reviewed with patient the need for daily heart failure self-care measures: Daily weights, symptom reporting, and when to call health care provider. Teaching methods included printed material and discussion. RN contact information provided to patient. Opportunity for questions provided and all questions answered. Patient verbalized an understanding. Evaluation of learning: able to demonstrate teach-back T KEEPER documented in this encounter Plan of Treatment Not on filedocumented as of this encounter Visit Diagnoses Diagnosis Failure Heart (HCC) documented in this encounter Care Teams Gift Basket Packer Relationship Specialty Start Date End Date Elsewhere, Pcp PCP - General 02/22/21 documented as of this encounter
--- OUTSIDE RECORDS SUMMARY | 2022-04-02 01:26 | XMS_ITS | Encounter Summary ---
:1965 Author Organization [facility] Address [address] [place] [id number] Care Team Providers Name Role Phone Elsewhere, Pcp Primary Care Provider Unavailable Reason for Visit Outpatient (Routine) - Closed Specialty Diagnoses / Procedures Referred By Contact Refer red To Contact Cardiovascular Disease Osman Wesley M .D. [place] [address] [place] [phone] Referral ID Status Reason Start Date Expiration Date Visits Requ ested Visits Authorized [id number] Closed 02/23/2021 02/23/2022 1 1 Encounter Details Date Type Department Care Team Description 02/23/2021 Virtual Visit Department of Osman Wesley M.D. [address] [place] [phone] Atherosclerotic Heart Cardiovascular Jessica Carlton, R.NLisa [address] [place] [phone] Disease [place] [facility] in [place], [place] y With Other Forms [place] Angina Pectoris (Stable [address] [facility] Angina/Angina Of [place], [place] Exertion) ([facility] ) [id number] Social History Tobacco Use Types Packs/Day Years [...] or relatives? How often do you attend yarsani or More than 4 times per year 02/09/2021 moravian services? Do you belong to any clubs or Yes 02/09/2021 organizations such as yarsani groups, unions, fraternal or athletic groups, or [...] PM CDT documented as of this encounter Patient Instructions Patient InstructionsJessica Carlton R.N. - 02/23/2021 3:00 PM CDT PRE-PROCEDURE EDUCATION PROVIDED VIA TELEPHONE CALL. THE PATIENT WAS NOT PHYSICALLY PRESENT FOR THISAPPOINTMENT Pre-procedure instructions include: 1. Basic information about the scheduled procedure 2. Fasting for 8 hours, 6 hours, and 2 hours prior to report time; refer to page 8 of the pamphlet entitled Preparing For Your Cardiac Catheterization or Heart Rhythm Procedure for details 3. Presence of a responsible adult (18 years of age or older) the day of procedure as well as for transportation home 4. See updated Visitor policy: Due to the COVID-19 pandemic, visitor restrictions are in place. Two visitors are permitted to accompany the patient to any outpatient appointments, procedures, and the patient's hospital room. Visiting hours are 7 am to 9 pm. 5. Stay within 100 miles of [place] overnight 6. Take all medications as instructed 7. Call the [facility] Service Line ([phone]) the evening before the procedure between the hours of 7 pm and midnight to learn what time and where to report to the hospital the next day Aspirin Instructions: Take 4 tablets of 81mg Aspirin, for a total of 324mg, on the morning of your procedure. Plavix Instructions: Take 8 tablets (600 mg total) the night before angiogram as ordered by your physician Vitamins/Supplements Instructions: Do not take vitamins or supplements the morning of the procedure. documented in this encounter Progress Notes Jessica Carlton R.N. - 02/23/2021 3:00 PM CDT SUBJECTIVE REASON FOR PHONE CALL Pre-procedure education OBJECTIVE Review done via RN Protocol: Cardiovascular Clinic Pre-Cardiac Invasive Catheterization Procedure Patient Management Reference document #[id number] Date of procedure: 02/24/2021 Procedure to be done: -- PCI +/- (Plavix and ASA load) ANDREW in the last 30 days from date of procedure: Yes ECG in the last 45 days from date of procedure: Yes Labs in the last 45 days from date of procedure: Yes COVID test done? Checking with the desk on this. Allergy to contrast dye/iodine? No Medications See Patient Instructions/AVS (in Notes Tab) Anticoagulation Plan Not applicable ASSESSMENT / PLAN Information Discussed Reviewed pre-procedure instructions with patient/family as listed in ???Preparing For Your Cardiac Catheterization or Heart Rhythm Procedure?? , [id number]. See After Visit Summary for specific instructions shared with the patient. Disposition/Recommendation: protocol orders Information/Education: patient/caller able to teach back Caller agreeable to plan of care: yes The following references were used: patient education resources: as noted above Additional education materials provided: None documented in this encounter Plan of Treatment Not on filedocumented as of this encounter Visit Diagnoses Diagnosis Atherosclerotic Heart Disease [place] Cor onary Artery With Other Forms Angina Pectoris (Stable Angina/Angina Of Exertion) (HCC) documented in this encounter Care Teams Excavating Contractor Relationship Specialty Start Date End Date Elsewhere, Pcp PCP - General 02/22/21 documented as of this encounter
--- OUTSIDE RECORDS SUMMARY | 2022-04-02 01:26 | XMS_ITS | Encounter Summary ---
:1965 Author Organization [facility] Address [address] [place] [phone] Care Team Providers Name Role Phone Elsewhere, Pcp Primary Care Provider Unavailable Encounter Details Date Type Department Care Team Description 03/06/2021 Clinical Communication Department of Trista Godfrey, Cardiovascular Medicine [place] in [facility] [address] [place] [phone] Social History Tobacco Use Types Packs/Day Years [...] or relatives? How often do you attend religious or More than 4 times per year 02/09/2021 anabaptism services? Do you belong to any clubs or Yes 02/09/2021 organizations such as religious groups, unions, fraternal or athletic groups, or [...] on filedocumented in this encounter Care Teams Hacksaw Inspector Relationship Specialty Start Date End Date Elsewhere, Pcp PCP - General 02/22/21 documented as of this encounter
--- OUTSIDE RECORDS SUMMARY | 2022-04-02 01:26 | XMS_ITS | Encounter Summary ---
:1965 Author Organization [facility] Address [address] [place] [id number] Care Team Providers Name Role Phone Elsewhere, Pcp Primary Care Provider Unavailable Reason for Referral Outpatient (Routine) - Closed Specialty Diagnoses / Procedures Referred By Contact Refer red To Contact Endocrinology Diagnoses Diabetes Mellitus Type 2 Hyperglycemia (HCC) Ervin Jaffe M.D. [facility] [address] [place] [phone] Referral ID Status Reason Start Date Expiration Date Visits Requ ested Visits Authorized [id number] Closed 03/08/2021 03/08/2022 1 1 EDUCATOR Reason for Visit Outpatient (Routine) - Closed Specialty Diagnoses / Referred By Contact Referred To Contact Procedures Cardiovascular Diseases / Diagnoses Failure Heart ([facility]) [facility] M.DL[facility] [address] [place] [phone] Referral ID Status Reason Start Date Expiration Date Visits Requ ested Visits Authorized [id number] Closed 02/27/2021 02/27/2022 1 1 Encounter Details Date Type Department Care Team Description 03/08/2021 Comprehensive Visit Department of Trista Godfrey Ischemic (Primary Dx); Cardiovascular Anita Cason Failure Heart ([facility]); Medicine in [address] [place] [address] Atherosclerotic Heart Disease Of [place] Coronary Artery Without Angina Pectoris; [facility] Diabetes Mellitus Type 2 Hyperglycemia ( HCC); [address] [place] [address], Congestive Heart Failure Eje ction Fraction Less Than 40 Percent ([facility]); [facility] [place] [id number] [phone] Social History Tobacco Use Types Packs/Day Years [...] More than 4 times per year 02/09/2021 [employer]? Do you belong to any clubs [...] place to sleep or slept in a usp (including now)? Education Answer Date Recorded What is the highest level of school you have completed or th e 9th grade 02/09/2021 highest degree you have received? Sex Assigned at Date Recorded Male 02/09/2021 2:11 PM CDT documented as of this encounter Last Filed Vital Signs Vital Sign Reading Time Taken Comments Blood Pressure 119/78 03/08/2021 8:05 AM PARAEDUCATOR Pulse 73 03/08/2021 8:05 AM PARAEDUCATOR Temperature - - Respiratory Rate - - Oxygen Saturation - - Inhaled Oxygen Concentration - - Weight 84.8 kg (186 lb 15.2 oz) 03/08/2021 8:05 AM PARAEDUCATOR Height 179.6 cm (5' 10.71) 03/08/2021 8:05 AM PARAEDUCATOR Body Mass Index 26.29 03/08/2021 8:05 AM PARAEDUCATOR documented in this encounter Consult Notes Ervin Jaffe M.D. - 03/08/2021 8:15 AM CST HEART FAILURE CLINIC NOTE REFERRAL Osman Wesley M.D. [address] [place] [phone] REASON FOR VISIT/REFERRAL Ischemic cardiomyopathy HISTORY OF PRESENT ILLNESS Mr. Mason Fairbanks is a 55 y.o. male with medical history significant for ischemic cardiomyopathywith heart failure with reduced ejection fraction at 39% by TTE on 02/07/2021 and 31% by CMR on 02/10/2021, CAD s/p PCI to LAD December 2019 in the setting of STEMI and residual mild to moderate disease on coronary angiogram 02/24/2021 and type 2 diabetes mellitus (A1c 6.4% on 02/09/2021) who presents today for evaluation of ischemic cardiomyopathy. He was admitted to [facility] in early November for acute onset pulmonary edema. He underwent coronary angiogram, which showed widely patent LAD stent. He was noted to have 50% disease in the mid LAD, distal left circumflex and 1st obtuse marginal. There was 20-40% disease in the other vessels. Left ventricular ejection fraction was 44% at that time. No coronary interventions were performed. He was seen by Dr. Anoop Wesley in the outpatient clinic. At that time he was on beta-sandeep therapy as well as losartan and his ejection fraction was noted to be 31% on cardiac MRI. He was sent back to the laboratory tester for repeat coronary angiogram with physiologic testing. Coronary angiogram was notable for [id number] coronary artery disease. IFR of various coronary arteries including left AV groove branch, left posterolateral segment, 1st left posterolateral branch, 2nd left posterolateral branch and distalLAD were normal range. Therefore, no intervention was performed. In terms of guideline directed medical therapy, he is currently taking metoprolol 100 mg daily, spironolactone 25 mg daily, and Lasix 20 mg daily. He was previously on losartan, which was switched to Entresto 24-26 mg b.i.d. last week. However, after taking only 3 doses of Entresto, he has severe hypertension with systolics down to 50s. He was very symptomatic at that time as well. Therefore, Entresto was stopped over the last weekend. He tells me that he has no cardiovascular limitations at this time. He denies exertional dyspnea, chest pain, lightheadedness, dizziness, leg swelling, orthopnea, PND, presyncope or syncope. The following portions of the patient's history were reviewed and updated as appropriate: allergies,current medications, family history, medical history, social history, surgical history, psychiatric history, substance abuse history, problem list, labs, diagnostics tests. I also reviewed pertinent clinical notes in the electronic health record. OUTPATIENT MEDICATIONS Current Outpatient Medications: ??? acetaminophen (TYLENOL) 500 mg tablet, Take 2 tablets (1,000 mg total) by mouth every 6 (six) hours., Disp: 60 tablet, Rfl: 0 ??? aspirin [address] tablet, Take 1 tablet (81 mg total) by mouth at bedtime., Disp: 30 tablet, Rfl:0 ??? atorvastatin (LIPITOR) 40 mg tablet, Take 2 tablets (80 mg total) by mouth at bedtime., Disp: 30tablet, Rfl: 0 ??? blood glucose ctl high,nml,low solution, Glucose control solution provides an easy way to ensureaccurate blood glucose testing., Disp: 1 each, Rfl: 0 ??? blood sugar diagnostic strips, 2 test daily., Disp: 100 test, Rfl: 1 ??? blood sugar diagnostic strips, 3 test daily., Disp: 270 test, Rfl: 3 ??? blood-glucose meter misc, Test as directed for diabetes control., Disp: 1 each, Rfl: 0 ??? blood-glucose meter misc, Test as directed for diabetes control., Disp: 1 each, Rfl: 0 ??? furosemide (LASIX) 20 mg tablet, Take 1 tablet (20 mg total) by mouth daily., Disp: 90 tablet, Rfl: 0 ??? gabapentin (NEURONTIN) 300 mg capsule, Take 1 capsule (300 mg total) by mouth at bedtime., Disp:30 capsule, Rfl: 0 ??? lancets, 2 each daily., Disp: 100 each, Rfl: 1 ??? metFORMIN (GLUCOPHAGE) 500 mg tablet, Take 1 tablet (500 mg total) by mouth as directed. 1 tab AM x 1 week then increase to 1 tab in AM and PM x1 week, increase to 2 tabs in AM and 1 tab in PM for 1 week then increase to 2 tabs twice daily. (Patient taking differently: Take 2,000 mg by mouth as directed. 2 tablets in the mornings and 2 tablets in the evening. ), Disp: 360 tablet, Rfl: 4 ??? metoprolol succinate (TOPROL-XL) 100 mg 24 hr tablet, Take 1 tablet (100 mg total) by mouth daily. Do not crush or chew., Disp: 60 tablet, Rfl: 1 ??? multivitamin tablet, Take 1 tablet by mouth daily. Diabetic Complete Multivitamin, Disp: , Rfl: ??? sacubitriL-valsartan (ENTRESTO) 24-26 mg per tablet, Take 1 tablet by mouth 2 (two) times a day.(Patient not taking: Reported on 03/06/2021 ), Disp: 60 tablet, Rfl: 0 ??? spironolactone (ALDACTONE) 25 mg tablet, Take 1 tablet (25 mg total) by mouth daily. (Patient not taking: Reported on 03/06/2021 ), Disp: 30 tablet, Rfl: 11 ??? Ventolin HFA 90 mcg/actuation inhaler, Inhale 2 puffs every 4 (four) hours as needed for wheezing or shortness of breath., Disp: 18 g, Rfl: 5 REVIEW OF SYSTEMS All systems reviewed and negative except as per HPI. VITAL SIGNS Vitals: 03/08/21 0805 BP: 119/78 BP Location: Left arm Patient Position: Sitting Cuff Size: Regular Pulse: 73 Weight: 84.8 kg Height: 179.6 cm Body mass index is 26.29 kg/m??. Weight: 87.5 kg (02/24/2021 1:02 PM) Height: 179 cm (02/24/2021 1:02 PM) PHYSICAL EXAMINATION General: Alert and oriented, no acute distress. Cardiovascular: Regular rate and rhythm, normal S1 and S2, no murmurs or rub appreciated. No JVD noted. No peripheral edema. Respiratory: No respiratory distress, normal effort of breathing, clear to auscultation bilaterally without crackles or wheezing Abdomen: soft, non-tender, no distension Neurological: Alert and oriented, appropriate mood and affect. Extremities: Warm, well perfused LABS/DIAGNOSTICS I have personally reviewed pertinent lab data and diagnostic results. Significant findings are listed/summarized below: 03/08/2021 CMP: Potassium 4.8, Creatinine 0.99 (eGFR 86) INR: 1.0 NT-proBNP: 608 on 03/08/2021, 933 on 02/23/2021 ECG 02/09/2021 NSR, low anterior forces TTE 02/07/2021 1. Moderate-severely enlarged left ventricular chamber size Calculated ejection fraction 39%. Estimated ejection fraction 45%. 2. Regional wall motion abnormalities were present (see wall motion graphics). 3. Left ventricular cardiac index 2.49 l/min/m^2. 4. No hemodynamically significant valvular heart disease. 5. Normal right ventricular systolic function. 6. Estimated right ventricular systolic pressure 40 mmHg (systolic blood pressure 132 mmHg). 7. Normal inferior vena cava size with normal inspiratory collapse (>50%). 8. No pericardial effusion. 9. Compared to the report of 11/29/2020 no significant change has occurred. Side by side comparison of images performed. CMR 02/10/2021 Prior LAD territory myocardial infarction involving the mid ventricular anterior, anteroseptal, and anterolateral wall, and apical anterior wall, septum, and lateral wall. The affected segments demonstrate significant thinning and hypokinesis and the amount of scar tissue is greater than 50 percent of the myocardial wall thickness of most of the affected segments implying low likelihood of significant functional recovery in these areas. Markedly reduced LV ejection fraction of 31 percent with regionality as above. No thrombus in the left ventricle. Coronary angiogram 02/24/2021 CORONARY DIAGNOSTIC SUMMARY Coronary artery dominance is left. The right coronary was not injected. Limited images of the left coronary arteries obtained for measurement of iFR. See prior angiogram (12/02/2020) for complete imaging and report. The left main coronary artery is 10% obstructed by a discrete lesion. The proximal left anterior descending artery is 20% obstructed by a discrete lesion. The middle left anterior descending artery is 40% obstructed by a tubular lesion. The distal left anterior descending artery is 30% obstructed by diffuse disease. The [...] diseased. The first obtuse marginal is 50% obstructed by a discrete lesion. INTRACORONARY PRESSURE SUMMARY An intracoronary pressure study of the Left Atrioventricular Groove Branch was performed. IFR measurement is 0.92. No complications. An intracoronary pressure study of the Left Posterolateral Segment was performed. IFR measurement is0.94. No complications. An intracoronary pressure study of the First Left Posterolateral Branch was performed. IFR measurement is 0.96. No complications. An intracoronary pressure study of the Second Left Posterolateral Branch was performed. IFR measurement is 0.92. No complications. An intracoronary pressure study of the Distal Left Anterior Descending Artery was performed. IFR measurement is 0.90. No complications. dLAD pullback demonstrates a diffuse gradient across the LAD. ASSESSMENT # Ischemic cardiomyopathy with heart failure with reduced ejection fraction at 39% by TTE on 02/07/2021 and 31% by CMR on 02/10/2021, NYHA class 1, ACC/AHA stage C, warm and dry # CAD s/p PCI to LAD in December 2019 in the setting of STEMI and residual diffuse mild to moderatedisease on coronary angiogram 02/24/2021 # Type 2 diabetes mellitus, A1c 6.4% on 02/09/2021 # Severe hypotension related to Entresto Mr. Fairbanks is a 55-year-old gentleman with CAD s/p PCI to LAD in December 2019 in the setting of STEMI and residual diffuse is lxjs-[id number] disease on coronary angiogram on 02/24/2021, ischemic cardiomyopathy with heart failure with reduced ejection fraction at 39% by TTE on 02/07/2021 and 31% by CMR on 02/10/2021 and type 2 diabetes mellitus who presents today for evaluation and management of ischemic cardiomyopathy. He is doing well at this time and has no cardiovascular limitations. He appears warm and dry on exam. He is currently on metoprolol 100 mg daily with heart rate of 73 beats per minute today. He is alsotaking spironolactone 25 mg daily and Lasix 20 mg daily. He was previously on losartan 100 mg daily which was recently switched to Entresto 24-26 mg b.i.d. He had severe hypotension after taking 3 doseof Entresto, therefore, it is currently on hold. This could be due to the fact that he was recently started on spironolactone and lasix and appears dry on exam today. Regardless, it is reasonable to hold off on Entresto at this time but maybe it can trialed again in the future once he is on stable doses of other GDMT. He is already scheduled for ICD on 03/21.. RECOMMENDATIONS 1. Continue metoprolol succinate 100 mg daily 2. Continue spironolactone 25 mg daily 3. Hold off on continuing Entresto at this time as noted above. Instead, resume losartan at previousdose of 100 mg daily 4. He appears euvolemic on exam today. Change Lasix 20 mg daily to p.r.n. dosing if he has more than3 kg weight gain 5. Proceed with ICD placement on 03/21 as previously planned 6. Refer to Endocrinology for management of diabetes mellitus as well as consideration of initiationof SGLT 2 inhibitor therapy in the setting of concomitant heart failure with reduced ejection fraction Patient was in agreement with the plan and all questions were answered. Case discussed with Dr. Godfrey. Ervin Jaffe M.D. Cardiovascular Diseases Fellow, PGY 5 Pager: [phone] EDUCATOR Trista Godfrey M.D. - 03/08/2021 8:15 AM CST REFERRAL SOURCE Osman Wesley M.D. ?? CHIEF COMPLAINT / REASON FOR VISIT Ischemic cardiomyopathy EF 31% This is a supervisory note for . I have interviewed examined patient discussed management plans with patient I have also reviewed in detail the history physical exam and management plans as documented by . ?? HISTORY OF PRESENT ILLNESS Mr. Fairbanks is a very pleasant 55-year-old gentleman with hx of STEMI in 12/2019 s/p PCI to LAD, type 2diabetes??mellitus, hypertension, hyperlipidemia, recent COVID-19 infection, and a strong family history of early coronary disease. He was recently evaluated by Dr. Wesley for shortness of breath. Cardiac MRI performed showed that his EF has decreased to 31%. He also underwent coronary angiogram of 02/24/2021 ?? Coronary angiogram 02/24/2021 CORONARY DIAGNOSTIC SUMMARY Coronary artery dominance is left. ??The ??right coronary was not injected. Limited images of the left coronary arteries obtained for measurement of iFR. See prior angiogram (12/02/2020) for complete imaging and report. The left main coronary artery is 10% obstructed by a discrete lesion. The proximal left anterior descending artery is 20% obstructed by a discrete lesion. The middle left anterior descending artery is 40% obstructed by a tubular lesion. The distal left anterior descending artery is 30% obstructed by diffuse disease. The [...] diseased. The first obtuse marginal is 50% obstructed by a discrete lesion. INTRACORONARY PRESSURE SUMMARY An intracoronary pressure study of the Left Atrioventricular Groove Branch was performed. IFR measurement is 0.92. No complications. An intracoronary pressure study of the Left Posterolateral Segment was performed. IFR measurement is0.94. No complications. An intracoronary pressure study of the First Left Posterolateral Branch was performed. IFR measurement is 0.96. No complications. An intracoronary pressure study of the Second Left Posterolateral Branch was performed. IFR measurement is 0.92. No complications. An intracoronary pressure study of the Distal Left Anterior Descending Artery was performed. IFR measurement is 0.90. No complications. dLAD pullback demonstrates a diffuse gradient across the LAD. ?? No coronary intervention was done. Patient has been on losartan spironolactone furosemide and metoprolol succinate at target dose. His losartan was switched to Entresto. However over the weekend patient had severe lightheadedness and when he took his blood pressure his systolic was in the 50s. Patienthas stopped his Entresto. According to the patient he did not have any issues with lightheadedness when he was taking losartan. Patient has no PND no orthopnea no presyncope no syncope no palpitations no chest pain. He gets short of breath with moderate exertion. Hence patient is [place] Heart Association class 2 The following portions of the patient's history were reviewed and updated as appropriate: allergies,current medications, family history, medical history, social history, surgical history, psychiatric history, substance abuse history, problem list, labs, diagnostics tests.. I also reviewed pertinent clinical notes in the electronic health record. REVIEW OF SYSTEMS A comprehensive review of systems was completed; pertinent abnormalities are included in the Historyof Present Illness. Constitutional: Positive for fatigue, fever and weight loss of more than 10 pounds. Eyes: Positive for visual problems. Respiratory: Positive for coughing up mucus (phlegm), dyspnea and wheezing. Cardiovascular: Positive for chest pain, pressure or tightness and pain in the calf muscles when walking. Gastrointestinal: Positive for abdominal (belly) pain or cramping and diarrhea. Musculoskeletal: Positive for arthralgias, back pain, pain or stiffness in the joints and muscle pain/stiffness. Neurological: Positive for light-headedness, numbness or shooting pain in hands, arms, legs, or feetand headaches. The following systems were negative: Skin, ENT, , Hematologic, Psych MEDICATIONS Current Medications: ??? spironolactone (ALDACTONE) 25 mg tablet, Take 1 tablet (25 mg total) by mouth daily. ??? acetaminophen (TYLENOL) 500 mg tablet, Take [...] Test as directed for diabetes control. ??? furosemide (LASIX) 20 mg tablet, Take 1 tablet (20 mg total) by mouth daily. ??? gabapentin (NEURONTIN) 300 mg capsule, Take 1 capsule (300 mg total) by mouth at bedtime. ??? lancets, 2 each daily. ??? metFORMIN (GLUCOPHAGE) 500 mg tablet, Take 1 tablet (500 mg total) by mouth as directed. 1 tab AM x 1 week then increase to 1 tab in AM and PM x1 week, increase to 2 tabs in AM and 1 tab in PM for 1 week then increase to 2 tabs twice daily. (Patient taking differently: Take 2,000 mg by mouth as directed. 2 tablets in the mornings and 2 tablets in the evening. ) ??? metoprolol succinate (TOPROL-XL) 100 mg 24 hr tablet, Take 1 tablet (100 mg total) by mouth daily. Do not crush or chew. ??? multivitamin tablet, Take 1 tablet by mouth daily. Diabetic Complete Multivitamin ??? sacubitriL-valsartan (ENTRESTO) 24-26 mg per tablet, Take 1 tablet by mouth 2 (two) times a day.(Patient not taking: Reported on 03/06/2021 ) ??? Ventolin HFA 90 mcg/actuation inhaler, Inhale 2 puffs every 4 (four) hours as needed for wheezing or shortness of breath. No Known Allergies Past Medical History: Diagnosis Date ??? Diabetes Mellitus NOS ??? Hyperlipidemia ??? Hypertension NOS ??? Pneumonia ??? ST Elevation Myocardial Infarction Of Unspecified Site (HCC) No family history on file. Social History Socioeconomic History ??? Marital status: Spouse name: Not on file ??? Number of children: Not on file ??? Years of education: Not on file ??? Highest education level: 9th grade Occupational History ??? Not on file Tobacco Use ??? Smoking status: Former Smoker Types: Cigarettes Quit date: 2008 Years since quittin.8 ??? Smokeless tobacco: Never Used Vaping Use ??? Vaping Use: never used Substance and Sexual Activity ??? Alcohol use: Never ??? Drug use: Never ??? Sexual activity: Yes Partners: Female control/protection: Vasectomy Other Topics Concern ??? Not on file Social History Narrative Merged History Encounter Social Determinants of Health Financial Resource Strain: High Risk ??? Difficulty of Paying Living Expenses: Very hard Food Insecurity: Unknown ??? Worried About Running Out of Food in the Last Year: Patient refused ??? Ran Out of Food in the Last Year: Patient refused Transportation Needs: Unknown ??? Lack of Transportation (Medical): Patient refused ??? Lack of Transportation (Non-Medical): Patient refused Physical Activity: Unknown ??? Days of Exercise per Week: 0 days ??? Minutes of Exercise per Session: Not on file Stress: Stress Concern Present ??? Feeling of Stress : Very much Social Connections: Socially Integrated ??? Frequency of Communication with Friends and Family: More than three times a week ??? Frequency of Social Gatherings with Friends and Family: More than three times a week ??? Attends Zoroastrianism Services: More than 4 times per year ??? Active Member of Clubs or Organizations: Yes ??? Attends Club or Organization Meetings: More than 4 times per year ??? Marital Status: Intimate Partner Violence: Not on file Housing Stability: High Risk ??? Unable to Pay for Housing in the Last Year: Yes ??? Number of Places Lived in the Last Year: 3 ??? Unstable Housing in the Last Year: No VITALS Blood Pressure: 119/78 Height: 179.6 cm Weight: 84.8 kg BMI (Calculated): 26.3 kg/m?? PHYSICAL EXAMINATION General: Not in acute distress Psychiatric: Oriented to person, place, and time. Eyes: Nonicteric Vessels: JVP is not elevated no carotid bruit carotid pulses normal Heart: S1-S2 no S3 no S4 2/6 holosystolic murmur at the apex Lungs: Clear to auscultation percussion Abdomen: No hepatosplenomegaly. No abdominal tenderness, no masses. Extremities: No edema pulses are present Skin: No stasis dermatitis or ulceration of the lower extremities. DIAGNOSTIC REVIEW All labs and diagnostic studies were reviewed. Sodium 140 potassium 4.8 creatinine of 0.99 NT proBNP of 608 Twenty-four Holter monitor 1. The basic rhythm was sinus. The total analyzed time was 19h 23m. The heart rate varied from 70 to131 bpm. The average HR was 86 bpm. [...] was 102 bpm. VPCs were seen singly. CMR 02/10/2021 Prior LAD territory myocardial infarction ??involving the mid ventricular anterior, anteroseptal, and anterolateral wall, and apical anterior wall, septum, and lateral wall. The affected segments demonstrate significant thinning and hypokinesis and the amount of scar tissue is greater than 50 percent of the myocardial wall thickness of most of the affected segments implying low likelihood of significant functional recovery in these areas. Markedly reduced LV ejection fraction of 31 percent with regionality as above. No thrombus in the left ventricle. ?? ASSESSMENT / PLAN #1 Failure Heart ([facility]) #2 Cardiomyopathy Ischemic #3 Atherosclerotic Heart Disease Of [place] Coronary Artery Without Angina Pectoris #4 Diabetes Mellitus Type 2 Hyperglycemia ([facility]) #5 Congestive Heart Failure Ejection Fraction Less Than 40 Percent ([facility]) #6 Coronary Stent Status Post Patient has has ischemic cardiomyopathy however by exam he is clinically euvolemic. Patient develop symptomatic hypotension with Entresto for systolic blood pressures in the 50s. Hence will stop his Entresto for now and restart him on losartan 100 mg a day. I told patient to monitor his blood pressuredaily and when he sees his local traffic incident management manager or primary physician he should short and his blood pressure recordings. If blood pressure is above 110/60 patient reconsider starting Entresto at the lowest dose again Patient is a newly diagnosed diabetic. We will refer him to diabetic clinic to see if he is a candidate for SGL T2. Since patient is euvolemic I have told patient to weigh himself daily and only take his 20 mg of furosemide if he puts on more than 3 lb. Hence we will switch his furosemide from 20 mg p.o. daily to 20mg p.r.n. our heart failure nurses have given patient instructions. We discussed about the risks and benefits of ICD placement. Patient has an appointment with the EP Clinic. Patient needs to be on a salt and fluid restrictive diet no more than 2 g of salt a day and 2 L of fluid a day. He will receive education from our heart failure nurses. Encouraged patient to to continue to be active walking up to 45 minutes a day 5 to 6 times a week however he should not exert himself and should stop if he has any chest pain. Patient Education there is no barrier to communication I have answered all questions and patient have expressed understanding of our discussion. Total time spent reviewing patient's medical records and [id number] consultation is 40 minutes. Trista Godfrey M.D. 03/08/2021 EDUCATOR documented in this encounter Plan of Treatment Scheduled Referrals Name Type Priority Associated Diagnoses Order S [facility] Endocrinology - Outpatient Routine Diabetes Mellitus Expecte d: Diabetes consult Referral Type 2 Hyperglycemia 01/2021 (clinic) ([facility]) (Approximate), Expires: 03/08/2024 documented as of this encounter Visit Diagnoses Diagnosis Cardiomyopathy Ischemic - Primary Failure Heart (HCC) Atherosclerotic Heart Disease Of [place] Coronary Artery Without Angina Pectoris Diabetes Mellitus Type 2 Hyperglycemia ( [facility]) Congestive Heart Failure Ejection Fracti on Less Than 40 Percent ([facility]) Coronary Stent Status Post documented in this encounter Care Teams Night Patrol Inspector Relationship Specialty Start Date End Date Elsewhere, Pcp PCP - General 02/22/21 documented as of this encounter
--- OUTSIDE RECORDS SUMMARY | 2022-04-02 01:26 | XMS_ITS | Encounter Summary ---
:1965 Author Organization [facility] Address [address] [place] [address] Care Team Providers Name Role Phone Elsewhere, Pcp Primary Care Provider Unavailable Encounter Details Date Type Department Care Team Description 02/24/2021 Hospital Division of [place], Atherosclerotic Heart Encounter Cardiovascular [place], Disease Nativ e [facility] With Other Forms [place] [address] Angina Pectoris (Stable [address] Angina/Angina Of [place], [place], [facility]) ([facility] ) [id number] [place] [phone] Social History Tobacco Use Types Packs/Day Years [...] or relatives? How often do you attend zoroastrian or More than 4 times per year 02/09/2021 yarsanism services? Do you belong to any clubs or Yes 02/09/2021 organizations such as zoroastrian groups, unions, fraternal or athletic groups, or [...] place to sleep or slept in a nursing home (including now)? Education Answer Date Recorded What is the highest level of school you have completed or th e 9th grade 02/09/2021 highest degree you have received? Sex Assigned at Date Recorded Male 02/09/2021 2:11 PM CDT documented as of this encounter Last Filed Vital Signs Vital Sign Reading Time Taken Comments Blood Pressure 139/81 02/24/2021 5:32 PM CDT Pulse 70 02/24/2021 5:32 PM CDT Temperature 36.5 ??C (97.7 ??F) 02/24/2021 1:02 PM CDT Respiratory Rate 21 02/24/2021 4:22 PM CDT Oxygen Saturation 96% 02/24/2021 5:32 PM CDT Inhaled Oxygen Concentration - - Weight 87.5 kg (192 lb 14.4 oz) 02/24/2021 1:02 PM CDT Height 179 cm (5' 10.47) 02/24/2021 1:02 PM CDT Body Mass Index 27.31 02/24/2021 1:02 PM CDT documented in this encounter Discharge Instructions AttachmentsThe following attachments cannot be sent through Care Everywhere.Care Following Your Catheter Procedure (Mongolian)documented in this encounter Medications at Time of [...] as directed for 1 each 0 2020 [facility] [place] [...] instructions were reviewed in detail as per [id number] with patient and family. They verbalized understanding. Follow up appointment is arranged. Patient was dismissed when discharge criteria was met, accompanied by family. All questions answered. documented in this encounter Plan of Treatment Not on filedocumented as of this encounter Procedures Procedure Name Priority Date/Time Associated Diagnosis Comme nts CARDIAC Routine 02/24/2021 4:27 Atherosclerotic Heart Res ults for this CATHETERIZATION PM CDT Disease [place] procedure are in Coronary Artery With the res ults Other Forms Angina section. Pectoris (Stable Angina/Angina Of Exertion) ([facility]) CARDIAC Routine 02/24/2021 4:27 Atherosclerotic Heart Res ults for this CATHETERIZATION PM CDT Disease [place] procedure are in Coronary Artery With the res ults Other Forms Angina section. Pectoris (Stable Angina/Angina Of Exertion) ([facility]) ADULT OXYGEN THERAPY Routine 02/24/2021 3:24 PM [...] Forms Angina Pectoris (Stable Angina/Angina Of Exertion) ([facility]) CORONARY DIAGNOSTIC SUMMARY Coronary artery dominance is [...] Address City/State/ZIP Code Phon e Number POC [facility] [address] [place] [address] [facility] [place] [address] [place] P[facility] [address] documented in this encounter Visit Diagnoses Diagnosis Atherosclerotic Heart Disease [place] Cor onary Artery With Other Forms Angina Pectoris (Stable Angina/Angina Of Exertion) (HCC) - Primary Atherosclerotic Heart Disease [place] Cor onary Artery With Other Forms Angina Pectoris (Stable Angina/Angina Of Exertion) (HCC) documented in this encounter Admitting Diagnoses Diagnosis Atherosclerotic Heart Disease [place] Cor onary Artery With Other Forms Angina Pectoris (Stable Angina/Angina Of Exertion) ([facility]) documented in this encounter Administered Medications Inactive [...] Preprocedure (CV), Morning of procedure fentaNYL injection 25 mcg (SUBLIMAZE) 25 mcg, [...] respiratory rate less than 8 breaths/jeffrey te. midazolam (PF) injection 0.25 mg (VERSED ) [...] respiratory rate less t calderon 8 breaths/minute. sodium chloride 0.9 % injection 10 mL [...] intravenous, As needed, line care, Starting on F ri 02/24/21 at 1524, Intraprocedure (CV), Prior to [...] (COMPLETED) 1330 (Given - Provider: Lexii Stuart RLisaNLisa) 324 mg, oral, Once, On Sat02/24/21 at 1330, For 1 dose, Preproc edure (CV) clopidogreL tablet 75 mg (PLAVIX) (COMPLETED) 1330 (Given - Provider: Lexii Stuart R.N.) 75 mg, oral, Once, On [...] (CANCELED) 1535 (Given - Provider: Irene Gibson RLisaN.)1538 (Given - Provider: Irene Gibson RLisaN.)1618 (Given - Provider: Irene Gibson R.N.) As [...] solution (OMNIPAQUE) (CANCELED) 1624 (Given - Provider: Monioc Rizo M.D.) As needed, Starting on Sat02/24/21 [...] (CV) documented in this encounter Care Teams Casting Inspector Relationship Specialty Start Date End Date Elsewhere, Pcp PCP - General 02/22/21 documented as of this encounter
--- OUTSIDE RECORDS SUMMARY | 2022-04-02 01:26 | XMS_ITS | Encounter Summary ---
:1965 Author Organization [facility] Address [address] [place] [address] Care Team Providers Name Role Phone Elsewhere, Pcp Primary Care Provider Unavailable Reason for Referral Behavioral Health (Routine) - Closed Specialty Diagnoses / Procedures Referred By Contact Refer red To Contact Psychiatry / Psychiatry Diagnoses Congestive Heart Failure Ejection Fraction Less Than 40 Percent (HCC) Osman Wesley M.D. [facility] [address] [place] [phone] Referral ID Status Reason Start Date Expiration Date Visits V isits Requested Authorized [id number] Closed Specialty 02/28/2021 02/28/2022 1 1 Services Required Reason for Visit Outpatient (Routine) - Closed Specialty Diagnoses / Procedures Referred By Contact Refer red To Contact Cardiovascular Disease Osman Wesley M .D. [facility] [address] [place] [phone] Referral ID Status Reason Start Date Expiration Date Visits Requ ested Visits Authorized [id number] Closed 02/14/2021 02/14/2022 1 1 Encounter Details Date Type Department Care Team Description 02/27/2021 Office Visit Department of Osman Wesley M.D. [address] [place] [phone] Congestive Heart Cardiovascular Medicine Mo Fofana M.D. [address] [place] [address] [phone] Failure [address]jection in 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 How often do you attend pentecostal or More than 4 times per year 02/09/2021 yarsani services? Do you belong to any clubs or Yes 02/09/2021 organizations such as pentecostal groups, unions, fraternal or athletic groups, or [...] place to sleep or slept in a intermediate (including now)? Education Answer Date Recorded What is the highest level of school you have completed or th e 9th grade 02/09/2021 highest degree you have received? Sex Assigned at Date Recorded Male 02/09/2021 2:11 PM CDT documented as of this encounter Progress Notes Mo Fofana M.D. - 02/27/2021 4:00 PM CDT SUBJECTIVE CHIEF COMPLAINT/REASON FOR VISIT Mason Fairbanks is a 55 y.o. male who is here for evaluation of coronary artery disease and heart failure with reduced ejection fraction secondary to ischemic cardiomyopathy. HISTORY OF PRESENT ILLNESS Patient was last seen in the CV clinic on 02/23/2021. At that time, he was noted to have an ejectionfraction of 31% per cardiac MRI on 02/10/2021 and ejection fraction 39% per TTE on 02/07/2021. He continued to endorse exertional dyspnea. He was initiated on spironolactone at that visit. Since then, he has also undergone coronary angiogram which showed discrete lesions without significant impact on flow. IFR was greater than 0.9 and no intervention was pursued. It was recommended that he pursue ICDplacement and that is currently being arranged. Regarding GDMT, he is currently on aspirin 81 mg, atorvastatin 40 mg, furosemide 20 mg, losartan 100mg, metoprolol succinate 100 mg, and spironolactone 25 mg. He reports that he occasionally checks his blood pressure at home and it has been increasing recently. His last blood pressures in clinic herewere in the 130s systolic. REVIEW OF SYSTEMS Constitutional: Positive for fatigue, fever and weight [...] were negative: Skin, ENT, , Hematologic, Psych OBJECTIVE There were no vitals filed for this visit. There is no height or weight on file to calculate BMI. PHYSICAL EXAMINATION General: Alert interactive CV: Regular rate PULM: Breathing comfortably on room air Psych: Mildly anxious secondary to diagnosis and uncertainty ASSESSMENT / PLAN #1 Congestive Heart Failure Ejection Fraction Less Than 40 Percent (HCC) - sacubitriL-valsartan (ENTRESTO) 24-26 mg per tablet; Take 1 tablet by mouth 2 (two) times a day., Starting 02/27/2021, Normal - Cardiovascular Disease - Heart failure consult (clinic); Future; Expected date: 02/27/2021 - [facility] - General (clinic); Future; Expected date: 02/27/2021 Other orders - Cardiovascular Disease office visit (clinic) Patient is a 55-year-old male with heart failure with reduced ejection fraction secondary to ischemic cardiomyopathy. He continues to have persistent symptoms despite GDMT. His recent cardiac catheterization showed IFR greater than 0.9 and no intervention was pursued. Given his ongoing reduced ejection fraction despite optimal medical management, is recommended that he pursue ICD placement. We are waiting the final results of his Holter monitor which may indicate if he should also have a pacemaker placed at the time of ICD placement. Additionally, given that he has room in his blood pressure and ongoing reduced ejection fraction, we will switch losartan to Entresto and have him follow-up in the Heart failure Clinic for ongoing uptitration of this medication. Given that he has been in [place] for quite some time now, we will refer him to a primary care provider here. As recently discussed, patient will pursue cardiac rehab however he would like to complete ICD placement prior to initiating cardiac rehab. Patient seen and discussed with Dr. Wesley documented in this encounter Miscellaneous Notes Addendum Note - Mo Fofana M.D. - 02/27/2021 4:00 PM CDT Addended by: MO FOFANA on: 02/28/2021 11:09 AM Modules accepted: Orders documented in this encounter Plan of Treatment Scheduled Referrals Name Type Priority Associated Order Schedule Diagnoses Psychiatry and Outpatient Referral Routine Congestive Heart Ex pected: Psychology - General Failure Ejection 05/2020 consult (clinic) Fraction Less Than (Appr oximate), 40 Percent (HCC) Expires: 02/29/2024 documented as of this encounter Visit Diagnoses Diagnosis Congestive Heart Failure Ejection Fracti on Less Than 40 Percent (HCC) - Primary documented in this encounter Care Teams New Accounts Representative Relationship Specialty Start Date End Date Elsewhere, Pcp PCP - General 02/22/21 documented as of this encounter
--- OUTSIDE RECORDS SUMMARY | 2022-04-02 01:26 | XMS_ITS | Encounter Summary ---
:1965 Author Organization [facility] Address [address] [place] [address] Care Team Providers Name Role Phone Elsewhere, Pcp Primary Care Provider Unavailable Reason for Visit Reason Comments Medical Information Encounter Details Date Type Department Care Team Description 03/04/2021 Nurse Triage [facility] Phuong Ng, [facility] and RKristin, [facility] [phone] [facility] [phone] Social History Tobacco Use Types Packs/Day Years [...] or relatives? How often do you attend presybeterian or More than 4 times per year 02/09/2021 moravian services? Do you belong to any clubs or Yes 02/09/2021 organizations such as presybeterian groups, unions, fraternal or athletic groups, or [...] place to sleep or slept in a ch[facility] (including now)? Education Answer Date Recorded What is the highest level of school you have completed or th e 9th grade 02/09/2021 highest degree you have received? Sex Assigned at Date Recorded Male 02/09/2021 2:11 PM CDT documented as of this encounter Miscellaneous Notes Telephone Encounter - Phuong Ng R.N., [facility] - 03/04/2021 1:18 PM CDT calling in about patient having cardiac symptoms. Reports blood pressure currently 80/60 and than was 90/60. Patient to have defibrillator placed 03/21. Patient has started taking Entresto and experiencing symptoms from this as well. This job specification writer transferred patients to [facility] she could be transferred to plaster mechanic demolition expert to review symptoms. documented in this encounter Plan of Treatment Not on filedocumented as of this encounter Visit Diagnoses Not on filedocumented in this encounter Care Teams Satellite Tv Technician Installer Relationship Specialty Start Date End Date Elsewhere, Pcp PCP - General 02/22/21 documented as of this encounter
--- OUTSIDE RECORDS SUMMARY | 2022-04-02 01:26 | XMS_ITS | Encounter Summary ---
:[address] [facility] Address [address] [place] [address] Care Team Providers Name Role Phone Elsewhere, Pcp Primary Care Provider Unavailable Encounter Details Date Type Department Care Team Description 02/23/2021 Orders Only Division of Pulmonary Greg Camacho, Medicine in [place], Zahraa Nieves M.D. [place] [address] [facility] [address] [place] [address] [place] [phone] [phone] Social History Tobacco Use Types Packs/Day Years [...] or relatives? How often do you attend temple or More than 4 times per year 02/09/2021 orthodox services? Do you belong to any clubs or Yes 02/09/2021 organizations such as temple groups, unions, fraternal or athletic groups, or [...] on filedocumented in this encounter Care Teams Electric Switch Tester Relationship Specialty Start Date End Date Elsewhere, Pcp PCP - General 02/22/21 documented as of this encounter
--- OUTSIDE RECORDS SUMMARY | 2022-04-02 01:26 | XMS_ITS | Encounter Summary ---
:1965 Author Organization [facility] Address [address] [place] [id number] Care Team Providers Name Role Phone Elsewhere, Pcp Primary Care Provider Unavailable Reason for Visit Outpatient (Routine) - Closed Specialty Diagnoses / Procedures Referred By Contact Refer red To Contact Endocrinology Diagnoses Diabetes Mellitus Type 2 Hyperglycemia (HCC) Ervin Jaffe M.D. [place] [address] [place] [address] Referral ID Status Reason Start Date Expiration Date Visits Requ ested Visits Authorized [id number] Closed 03/08/2021 03/08/2022 1 1 Encounter Details Date Type Department Care Team Description 03/13/2021 Comprehensive Visit Division of [place], Diabetes Mellitus Type 2 Hyperglycemia (HCC) (Primary Dx); Endocrinology in Rahat Duran, Cardiomyopa thy Ischemic; [place], [place] Anita Congestive Heart Failure Ejection Fracti on Less Than 40 Percent (HCC); [address] [place] [address] 200 [facility] [place] Hyperlipidemia On Treatment [facility] [phone] [facility] [phone] Social History Tobacco Use Types Packs/Day Years [...] or relatives? How often do you attend advent or More than 4 times per year 02/09/2021 lutheran services? Do you belong to any clubs or Yes 02/09/2021 organizations such as advent groups, unions, fraternal or athletic groups, or [...] place to sleep or slept in a fci (including now)? Education Answer Date Recorded What is the highest level of school you have completed or th e 9th grade 02/09/2021 highest degree you have received? Sex Assigned at Date Recorded Male 02/09/2021 2:11 PM CDT documented as of this encounter Consult Notes Rahat Denton M.D. - 03/13/2021 8:00 AM CST SUBJECTIVE CHIEF COMPLAINT / REASON FOR VISIT Mason Fairbanks is a 55 y.o. male who presents for an evaluation of diabetes mellitus. HISTORY OF PRESENT ILLNESS Mr. Fairbanks the 55-year-old gentleman who has had type 2 diabetes for a few years. Was treated initially with medications. Weighed over 300 lb about a year and half ago now down to 170 lb through lifestyle modification. He got off of all his medications until recently when he presented with a myocardial infarction and heart failure and blood sugars were markedly elevated (he stated blood sugar of 600)with an A1c as high as 13%. He is currently on metformin 500 mg tablets 2 tablets twice daily. However he is having diarrhea on a daily basis which is likely due to the metformin. He is trying very hard to restrict his carbohydrates to 65 g per meal. He has cut out all sugar. Hisdiet in the past was mostly processed and ultra processed foods. He has not made the full progression towards a plant based or Mediterranean diet at the current time. His BMI is 26.3. States he monitors blood sugars and they are never greater than 150 mg/dL including postprandial blood sugars. I do not have a download of his meter to confirm this. He is undergoing evaluation by Cardiology. An ICD is to be implanted later this week. They have beenadjusting his heart failure medications. At the current time he is not on a SGLT-2 inhibitor. REVIEW OF SYSTEMS REVIEW OF SYSTEMS OBJECTIVE PHYSICAL EXAM Physical Exam General: Patient in no acute distress. Eye: No icterus Chest: Respirations normal. Extremities: No edema Neuro: Oriented Psych: Mood and affect normal Diagnostics Lab Results Component Value Date GLUCOSE 127 02/23/2021 GLUCOSEPOC 155 (H) 02/24/2021 Lab Results Component Value Date HGBA1C 6.4 (H) 02/09/2021 HGBA1C 6.9 (H) 01/25/2021 HGBA1C 10.3 (H) 11/28/2020 Lab Results Component Value Date GLUCOSE 127 02/23/2021 GLUCOSEPOC 155 (H) 02/24/2021 LDLCALC 31 02/09/2021 CREATININE 0.99 03/08/2021 ASSESSMENT / PLAN 1. Type 2 diabetes 2. Ischemic cardiomyopathy 3. Coronary artery disease status post PCI (2019) after STEMI 4. Hyperlipidemia on treatment Laboratory tests from February 09 on have been reviewed in detail. Pertinent labs include a serum creatinine is 0.99 with an estimated GFR of 86. Fasting blood sugar levels have been 93 and 127. A1c level 6.4%. LDL 31 HDL 39 and triglycerides 66 on 40 mg of atorvastatin. The diarrhea that he is having may be a limiting factor to the usage of the metformin. It appears bythe metformin entered into the medication list that this is immediate release metformin. Would be worth switching to extended-release metformin 500 mg tablets and take 2 tablets in the morning and 2 tablets in the evening. If he continues to have diarrhea that I would reduce to 2 tablets in the evening. If he continues to have diarrhea than the drug would need to be discontinued to confirm that this is the reason for the patient's diarrhea. The diarrhea usually clears up within 72 hours of discontinuing the metformin. Would strongly consider using a SGLT-2 inhibitors such as Jardiance in this patient due to his low ejection fraction. These medications have been shown to reduce outcomes in patients with heart failurewith or without diabetes. They have a moderate effect on blood sugar it typically lowering A1c levels between 0.5 to 0.8%. Main side effects are typically genital urinary tract infections, electrolyte abnormalities and rarely DKA. Like metformin these medications do not cause hypoglycemia. If for some reason he is not able to tolerate metformin a does not achieve good control (A1c level below 7%) on a SGLT-2 inhibitor, could potentially consider the usage of a GLP-1 receptor agonist suchas Ozempic starting at 0.5 mg weekly and than after month 1.0 mg weekly. These medications have alsobeen shown to have cardiovascular benefit in patients with known coronary artery disease and diabetes. They do not cause hypoglycemia when used alone or in combination with his current diabetes medications. I would avoid using sulfonylureas in this patient since is likely to cause hypoglycemia and these drugs have been associated in most studies with negative cardiovascular benefit. Stressed the importance of continued healthy lifestyle modification with a diet that is more plant based or Mediterranean plus regular exercise as tolerated and maintaining a healthy body weight. I have discussed all the above with Mr. Fairbanks and answered his questions. Appreciate the opportunityof participating in his care and I would be more than happy to see back anytime in the future. Total Time: 46 minutes. More than 50% of total time was spent in direct patient counseling or coordination of care. RUMENT SHOP SUPERVISOR documented in this encounter Plan of Treatment Not on filedocumented as of this encounter Visit Diagnoses Diagnosis Diabetes Mellitus Type 2 Hyperglycemia ( HCC) - Primary Cardiomyopathy Ischemic Congestive Heart Failure Ejection Fracti on Less Than 40 Percent (HCC) Hyperlipidemia On Treatment documented in this encounter Care Teams Livestock Exhibitor Relationship Specialty Start Date End Date Elsewhere, Pcp PCP - General 02/22/21 documented as of this encounter
--- OUTSIDE RECORDS SUMMARY | 2022-04-02 01:26 | XMS_ITS | Encounter Summary ---
:1965 Author Organization [facility] Address [address] [place] [id number] Care Team Providers Name Role Phone Elsewhere, Pcp Primary Care Provider Unavailable Reason for Referral Outpatient (Routine) - Closed Specialty Diagnoses / Procedures Referred By Contact Refer red To Contact Diagnoses Cardiomyopathy Ischemic Aurelio Osorio V., [facility] Procedures ECG 12 Lead Anita, Ph.D. [address] [place] [address] Referral ID Status Reason Start Date Expiration Date Visits Requ ested Visits Authorized [id number] Closed 03/02/2021 03/02/2022 1 1 Encounter Details Date Type Department Care Team Description 02/27/2021 Clinical Communication Department of Katelynn Henry Cardiovascular Medicine Rubina, Dayna in [facility] [place] [phone] [facility] ([facility] [place] [id number] Social History Tobacco Use Types Packs/Day Years [...] or relatives? How often do you attend adventist or More than 4 times per year 02/09/2021 jewish services? Do you belong to any clubs or Yes 02/09/2021 organizations such as adventist groups, unions, fraternal or athletic groups, or [...] place to sleep or slept in a assisted (including now)? Education Answer Date Recorded What is the highest level of school you have completed or th e 9th grade 02/09/2021 highest degree you have received? Sex Assigned at Date Recorded Male 02/09/2021 2:11 PM CDT documented as of this encounter Miscellaneous Notes Telephone Encounter - Cely Torre - 03/06/2021 2:37 PM CST This is scheduled, Dr. Olivares agreed to see Hosp Serv day, tried to call patient but could only leave voicemail, sent portal message to him that we canceled the NF2F on 03/17. Thanks Cely X MACHINE MECHANIC Telephone Encounter - Cely Torre - 03/03/2021 9:15 AM CDT Karmen, would you like me to add on to Dr. Olivares Hosp Consult service at 1:00 on March 20? Change the date of procedure? Thanks Cely Telephone Encounter - Katelynn Henry R.N. - 03/02/2021 9:30 AM CDT Contacted Mason Aleksey Tiki regarding the scheduling for their ICD implant. Mr. Fairbanks was referred by Dr. Wesley for this procedure. We do not need to get you tested for COVID with our policy since you were previously infected on 01/26/21 Pre-procedure Appointment: 03/20 Pre-Procedure Testing: CBC, EKG, and [facility] preop clinic appointment, if we are not able to get this scheduled you will meet with an MD the day of the procedure to complete consent. Procedure Date: 03/21 Procedure: ICD Mr. Fairbanks was given the following education instructions: Calling In for your Report Time: The night before the procedure, please call the [facility] Service Line ([phone]) or the [facility] Backup Line ([phone]) between 7pm and midnight to find out what time to arrive. This automated phone line will have you type in your [facility] Number [phone] and birthdate 1965 to de termine your arrival time. On the day of your procedure: Check into [facility], [facility] 4th Floor (east elevators) at the [facility] 4D desk. Youdo not need to check into the Admissions Desk prior. Fasting Instructions: You must fast prior to this procedure. Please stop eating solid foods 8 hours prior to your arrival time. You may continue clear liquids until 2 hours prior to your arrival time. For medication management, please complete as follows: Diabetes Medications: Hold morning dose of Metformin the day of the procedure to prevent a low blood sugar If you have a low or high blood sugar please call our Diabetes Medication Instruction Line at [phone]. Continue taking all other medications as prescribed. On the morning of your procedure, take only your prescription medications and skip any supplements that are not prescribed by a medical provider. Hibiclens: Please, shower the night prior to your procedure and the morning of your procedure with Hibiclens soap. This is available at your local pharmacy [email or web address] for purchase. You may also request packets from the [address] desk while you are here for appointments. CPAP: Please bring your CPAP machine with you to your procedure if you currently use one. It may be used during the procedure or as you recover. Same Day Dismissal: For this procedure, there is a possibility that you will be dismissed the same day. In this case, you will need to either live within 100 miles of [place], [place] or spend the night in [place] postprocedure. If you live within 100 miles and live greater than 30 minutes outside of [place], [place]); it is not required, but highly recommended that you spend the night in [place], [place]. You will have ascheduled device check the next day (please see further instructions below). If you experience any complications or have questions post procedure overnight, please call the [facility] Operatorat: [phone] and ask for [facility]. They will connect you to the on-call provider to assist you further. ??? Please note: If you experience any post-operative complications and/or your procedure is late inthe day, you may spend the night in the hospital and if well, be dismissed the next day. ICD Activity Restrictions: You may drive 10 days after ICD insertion. You will be on lifting restrictions after the procedure with the arm on the same side as the pacemaker implant. Remember-- no lifting, pushing, or pulling anything over 5 pounds with your affected arm for 4 weeks after the ICD implant. We also don't want you lifting this extremity above should height to prevent your leads from becoming dislodged. Next Day Device Check: You will have a device check scheduled within a few days of your cardiac device implant. [facility] to ensure that your device is properly functioning and will assess your incision sites to ensure that they are doing well. This device check appointment will be viewable on your patient appointment guide and must be completed at [facility] in [place], [place] within designated timeframe. Please, see the fasting instructions below: ??? Fasting: You must fast prior to this appointment. Please stop eating solid foods 8 hours prior to your arrival time. You may continue clear liquids until 2 hours prior to your arrival time. ??? Medications: o Diabetes Medications: Hold morning dose of Metformin the day of the appointment to prevent a low blood sugar o Other Medications: Continue taking all other medications as prescribed. On the morning of your procedure, take only your prescription medications and skip any supplements that are not prescribed by a medical provider. If you have any further questions prior to your procedure, please feel free to reach out to us at [phone]. COVID Screening Questions: 1. Do you, anyone in the household, or anyone you have had prolonged exposure with in the past 5 days have (any of the following)? a. Fever ? 38.0 C (100.0 F) last 24 hours - No b. New respiratory symptoms (e.g. cough, shortness of breath, respiratory distress, sore throat, headache, diarrhea, chills, loss of smell, change or loss of taste sensation, or myalgias) - No c. Contact with persons who are under quarantine or isolation for COVID in last 14 days, or is a LABORATORY CONFIRMED case of COVID-19? Close contact as defined by the CDC as: Being within approximately 6 feet of a COVID-19 patient for more than 5 minutes or having direct contact with infectious secretions of a COVID-19 case (e.g. being coughed on) - No d. Have you been tested for COVID-19 with a positive or pending result? - Yes, had COVID December of this year. Testing Information: ?? Location: ?? If your Covid nasal swab is positive, we will contact you to reschedule your procedure. ?? If your Covid tests are not resulted in time for your procedure, expect your procedure to be postponed or rescheduled to a later date. [facility] Specific Instructions: ?? We encourage you to check [email or web address] for more information as these instructions may change before your procedural date. ?? Must wear a mask at ALL times while on [facility] [place] (except for when eating or showering). ?? Additionally, the [facility] has mandated that masks be worn inside all public facilities. ?? Visitor Policy: ?? You may have two consistent visitors accompany you to your outpatient appointments, testing, and to the outpatient procedure check-in area. ?? Two consistent visitors are permitted to visit in the inpatient setting during visiting hours of 7 am to 9 pm. No visitors are allowed to stay overnight with the patient in the hospital (Exceptions will apply for hospitalized children under the age of 18, patients with end of life care needs, and during the of a child). ?? Practice Self-Isolating and Social Distancing for two-weeks prior to your procedure. ?? Good Hand Hygiene ?? Check Temperature Daily and Report any fevers of 100.5 degrees Fahrenheit or greater ?? Report any new respiratory symptoms X MACHINE MECHANIC Telephone Encounter - Renee Fong - 03/02/2021 9:26 AM CDT Scheduled NF2F with Dr. Osorio on 03-17. Left message for patient to educate. Telephone Encounter - Katelynn Henry R.N. - 02/27/2021 12:52 PM CDT Images from the original note were not included. Aurelio Osorio M.D., Ph.D. [facility] Hi, I know we are tight and have rules, etc about scaling back when we can add. But, when we have availability can we get the patient on below for an ICD. This is a patient of Dr. Wesley's Thanks Sameer documented in this encounter Plan of Treatment Not on filedocumented as of this encounter Results ICD SINGLE CHAMBER INTERROGATION WITH PROGRAMMING (03/22/2021 8:19 AM XEROX MACHINE MECHANIC) Component Value Ref Test Analysis Performed At [facility] gist Range Method Time Signature Date Time [id number] [facility] Interrogation LAB SYSTEM Session Implantable Biotronik [facility] Pulse Generator LAB SYSTEM Ship/Rec/Doc Control Implantable [id number] Acticor 7 [facility] Pulse Generator VR-T DX LAB SYSTEM Model Implantable [id number] [facility] Pulse Generator LAB SYSTEM Serial Number Type In Clinic [facility] Interrogation LAB SYSTEM Session Re-programmed Unknown FOUNDATION During Session LAB SYSTEM Clinic Name [facility] LAB SYSTEM Jber Implantable Defibrillator [facility] Pulse Generator LAB SYSTEM Type Implantable [id number] [facility] Pulse Generator LAB SYSTEM Implant Date Implantable Lead Biotronik [facility] Ship/Rec/Doc Control LAB SYSTEM Implantable Lead [id number] Plexa DF-1 FOUND ATION Model S DX 65/15 LAB SYSTEM Implantable Lead [id number] [facility] Serial Number LAB SYSTEM Implantable Lead [id number] [facility] Implant Date LAB SYSTEM Implantable [...] Unknown FOUNDATION chambers paced LAB SYSTEM during DOOR TO DOOR SELLING AGENT pacing. Lead Channel Unknown [facility]ATION Setting Pacing [...] LAB SYSTEM Interval Lead Channel 8.8 mV [facility]ATION Sensing LAB SYSTEM Intrinsic Amplitude Lead Channel 620 ohm [facility] Impedance Value LAB SYSTEM Lead Channel 22.7 mV [facility]ATION Sensing LAB SYSTEM Intrinsic Amplitude Lead Channel 0.5 V [facility] Pacing Threshold LAB SYSTEM Amplitude Lead Channel 0.4 ms [facility] Pacing Threshold LAB SYSTEM Pulse Width Battery Status Unknown [facility]ATION LAB SYSTEM Battery Voltage 3.07 V [facility]ATION LAB SYSTEM Capacitor Charge FULL_ENERGY [facility]OUNDATION Type LAB SYSTEM Capacitor Charge Reformation [facility] Type LAB SYSTEM Capacitor Charge Shock [facility] Type LAB SYSTEM Luis Miguel Statistic 0 % [facility] RV Percent Paced LAB SYSTEM Atrial Tachy 0 [facility] Statistic Number LAB SYSTEM Of Mode Switches Therapy 0 [facility] Statistic Recent LAB SYSTEM Shocks Delivered Therapy 0 [facility] Statistic Total LAB SYSTEM Shocks Delivered Therapy 0 [facility] Statistic Total LAB SYSTEM Shocks Aborted Episode 0 [facility] Statistic Recent LAB SYSTEM Count Episode Other [facility]ATION Statistic Type LAB SYSTEM Category Anatomical Region Laterality Modality Other Specimen (Source) Anatomical Collection Method Collection Time Re ceived Time Location / / Volume Laterality 03/22/2021 8:08 AM XEROX MACHINE MECHANIC Narrative 03/27/2021 8:53 AM XEROX MACHINE MECHANIC PURPOSE OF VISIT: Routine post-implant device interrogation [...] routine de vice interrogations as indicated. Aurelio Osorio M.D., Ph.D. CV IMPLANTABLE CAR DIAC DEVICE ECG 12 Lead (03/20/2021 3:16 PM XEROX MACHINE MECHANIC) P athologist Signature Ventricular Rate 83 BPM MUSE ECG/Min NC Interval 156 ms MUSE QRSD Interval 92 ms MUSE QT Interval 398 ms MUSE QTC Interval 467 ms MUSE P [place] 33 degrees MUSE R [place] 64 degrees MUSE T Wave [place] 52 degrees MUSE Specimen Anatomical Collection Method Collection Time Receive d Time (Source) Location / / Volume Laterality 03/20/2021 3:16 PM 3:27 XEROX MACHINE MECHANIC PM XEROX MACHINE MECHANIC Impressions MUSE - 03/20/2021 3:27 PM XEROX MACHINE MECHANIC Normal sinus rhythm Cannot rule out Anterolateral infarct When compared with ECG of 09-FEB-2021 07 :56, ST no longer elevated in Anteroseptal le ads Reviewed by DEBBY Salas Narrative This result has an attachment that is no t available. Procedure Note Jose Delgado M.D. - 03/20/2021 IMPRESSION: Normal sinus rhythm Cannot rule out Anterolateral infarct When compared with ECG of 09-FEB-2021 07 :56, ST no longer elevated in Anteroseptal le ads Reviewed by DEBBY Salas Aurelio Osorio M.D., Ph.D. ECG ORDERABLES Performing Organization Address City/State/ZIP Code Phon e Number MUSE MUSE NA (ABNORMAL) CBC with Differential, Blood (03/20/2021 3:00 PM XEROX MACHINE MECHANIC) [facility] Method Time Signature Hemoglobin 12.9 (L) 13.2 - 03/20/2021 DTL 16.6 g/dL 3:34 PM XEROX MACHINE MECHANIC Hematocrit 40.1 38.3 - 03/20/2021 DTL 48.6 % 3:34 PM XEROX MACHINE MECHANIC Erythrocytes 4.75 4.35 - 03/20/2021 DTL 5.65 3:34 PM XEROX MACHINE MECHANIC x10(12)/L MCV 84.4 78.2 - 03/20/2021 DTL 97.9 fL 3:34 PM XEROX MACHINE MECHANIC RBC Distrib Width 14.3 11.8 - 03/20/2021 DTL 14.5 % 3:34 PM XEROX MACHINE MECHANIC Platelet Count 343 (H) 135 - 317 03/20/2021 DTL x10(9)/L 3:34 PM XEROX MACHINE MECHANIC Leukocytes 13.5 (H) 3.4 - 9.6 03/20/2021 DTL x10(9)/L 3:34 PM XEROX MACHINE MECHANIC Neutrophils 8.93 (H) 1.56 - 03/20/2021 DTL 6.45 3:34 PM XEROX MACHINE MECHANIC x10(9)/L Lymphocytes 3.12 (H) 0.95 - 03/20/2021 DTL 3.07 3:34 PM XEROX MACHINE MECHANIC x10(9)/L Monocytes 0.84 (H) 0.26 - 03/20/2021 DTL 0.81 3:34 PM XEROX MACHINE MECHANIC x10(9)/L Eosinophils 0.42 0.03 - 03/20/2021 DTL 0.48 3:34 PM XEROX MACHINE MECHANIC x10(9)/L Basophils 0.16 (H) 0.01 - 03/20/2021 DTL 0.08 3:34 PM XEROX MACHINE MECHANIC x10(9)/L Specimen Anatomical Collection Method Collection Time Receive d Time (Source) Location / / Volume Laterality Blood (Blood, 03/20/2021 3:00 PM 03/20/20 3:27 Venous) XEROX MACHINE MECHANIC PM XEROX MACHINE MECHANIC Aurelio Osorio M.D., Ph.D. LAB BLOOD ADD-ON Performing Organization Address City/State/ZIP Code Phon e Number [facility] - [address] [place], [place] [address] [facility] [address] Laboratories-[facility] [address] documented in this encounter Visit Diagnoses Diagnosis Cardiomyopathy Ischemic - Primary Cardiomyopathy Ischemic documented in this encounter Care Teams Delivery Driver Assistant Relationship Specialty Start Date End Date Elsewhere, Pcp PCP - General 02/22/21 documented as of this encounter
--- OUTSIDE RECORDS SUMMARY | 2022-04-02 01:26 | XMS_ITS | Encounter Summary ---
:1965 Author Organization [facility] Address [address] [place] [address] Care Team Providers Name Role Phone Elsewhere, Pcp Primary Care Provider Unavailable Encounter Details Date Type Department Care Team Description 02/23/2021 Hospital Encounter Department of Osman Wesley [facility] Heart Laboratory Medicine Anita Ahmadi Disease Ruby Coronary and Pathology, [address] [facility] Artery With Other Forms [facility] in [place], [place] Angina Pectoris (Stable [facility] [id number] Angina/Angina Of [place] [phone] Exertion) (FORM[facility]LY [facility]) [address] [facility] (Work) [place], [place] [phone] (Fax) [phone] Social History Tobacco Use Types Packs/Day Years [...] or relatives? How often do you attend jehovah's witness or More than 4 times per year 02/09/2021 mandaeism services? Do you belong to any clubs or Yes 02/09/2021 organizations such as jehovah's witness groups, unions, fraternal or athletic groups, or [...] to sleep or slept in a senior living (including now)? Education Answer Date Recorded What [...] diagnostic USE DIRECTED TWO 100 each 1 /08/2020 strips TIMES A DAY blood-glucose meter Test as directed for 1 each 0 2020 [facility] diabetes control. blood-glucose meter Test as directed [...] OR SHORTNESS OF BREATH clopidogreL (PLAVIX) 75 Take 8 tablets (600 8 tablet 0 02/23/2021 mg tablet mg total) by mouth once for 1 dose. clopidogreL (PLAVIX) 75 TAKE 1 TABLET BY [...] Associated Diagnosis Comme nts NT-PRO B-TYPE Routine 02/23/2021 1:25 Atherosclerotic Heart Re sults for this NATRIURETIC PEPTIDE PM CDT Disease Ruby Worthy ry procedure are in (BNP), S Artery With Other Forms the results Angina Pectoris (Stable sect ion. Angina/Angina Of Exertion) ([facility]LY [facility]) TROPONIN T, 5TH Routine 02/23/2021 1:25 Atherosclerotic Heart Results for this GEN, P PM CDT Disease Ruby Coronary proc edure are in Artery With Other Forms the results Angina Pectoris (Stable sect ion. Angina/Angina Of Exertion) ([facility]LY [facility]) BASIC METABOLIC Routine 02/23/2021 1:25 Atherosclerotic Heart Results for this PANEL, S/P PM CDT Disease Ruby Coronary proc edure are in Artery With Other Forms the results Angina Pectoris (Stable sect ion. Angina/Angina Of Exertion) ([facility]) documented in this encounter Results (ABNORMAL) Troponin T, 5th Generation (02/23/2021 1:25 PM CDT) P athologist Signature Troponin T, 5th 18 (H) <=15 ng/L 02/23/2021 DT gen 2:34 PM CDT Specimen Anatomical Collection Method Collection Time Receive d Time (Source) Location / / Volume Laterality Blood (Blood, 02/23/2021 1:25 PM 02/24/20 21 2:06 Venous) CDT PM CDT Osman Wesley M.D. LAB BLOOD ADD-ON Performing Organization Address City/State/ZIP Code Phon e Number [facility] - [address] [place], [place] [address] [facility] [place] [address] Laboratories-[facility] [address] Basic Metabolic Panel (02/23/2021 1:25 PM CDT) P athologist Signature Potassium, S 4.9 3.6 - 5.2 02/23/2021 DTL mmol/L 2:35 PM CDT Sodium, S 145 135 - 145 02/23/2021 DTL mmol/L 2:35 PM CDT Chloride, S 104 98 - 107 02/23/2021 DTL mmol/L 2:35 PM CDT Bicarbonate, S 28 22 - 29 02/23/2021 DTL mmol/L 2:35 PM CDT Anion Gap 13 7 - 15 02/23/2021 DTL 2:35 PM CDT BUN (Blood Urea 13 8 - 24 02/23/2021 DTL Nitrogen), S mg/dL 2:35 PM CDT Creatinine 0.97 0.74 - 02/23/2021 DTL 1.35 mg/dL 2:35 PM CDT eGFR-Non 88 >=60 02/23/2021 DTL Black/ mL/min/BSA 2:35 PM CDT [place] Comment: ----ADDITIONAL INFORMATION---- Estimated GFR calculated using the 2009 CKD_EPI creatinine equation. eGFR-Black/ >90 >=60 mL/min/BSA 2020 2:35 PM CDT DTL Comment: ----ADDITIONAL INFORMATION---- Estimated GFR calculated using the 2009 CKD_EPI creatinine equation. Calcium, Total, S 9.7 8.6 - 10.0 mg/dL 02/23/2021 2:35 PM CDT DTL Glucose, S 127 70 - 140 mg/dL 02/23/2021 2:35 PM CDT D TL Specimen Anatomical Collection Method Collection Time Receive d Time (Source) Location / / Volume Laterality Blood (Blood, 02/23/2021 1:25 PM 02/24/20 2:06 Venous) CDT PM CDT Osman Wesley M.D. LAB BLOOD ADD-ON Performing Organization Address City/State/ZIP Code Phon e Number [facility] - [address] [place], [place] [address] [facility] [place] [address] [facility] [address] (ABNORMAL) NT-Pro B-Type Natriuretic Peptide (BNP) (02/23/2021 1:25 PM CDT) P athologist Signature NT-Pro BNP 933 (H) <=67 pg/mL 02/23/2021 DTL 2:35 PM CDT Comment: NT-proBNP values less than 300 pg/mL [...] Location / / Volume Laterality Blood (Blood, 02/23/2021 1:25 PM 02/24/20 2:06 Venous) CDT PM CDT Osman Wesley M.D. 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
--- OUTSIDE RECORDS SUMMARY | 2022-04-02 01:26 | XMS_ITS | Encounter Summary ---
:1965 Author Organization [facility] Address [address] [place] [address] Care Team Providers Name Role Phone Elsewhere, Pcp Primary Care Provider Unavailable Reason for Visit Appointment Request (Routine) - Closed Specialty Diagnoses / Procedures Referred By Contact Refer red To Contact Cardiovascular Disease Referral ID Status Reason Start Date Expiration Date Visits Requ ested Visits Authorized [id number] Closed 03/06/2021 03/06/2022 1 1 Encounter Details Date Type Department Care Team Description 03/20/2021 Comprehensive Visit Department of Monique Olivares Heart Disease [place] Coronary Artery With Other Forms Angina Pectoris (Stable Angina/Angina Of Exertion) (HCC) (Primary Dx); Cardiovascular Triston Bright, Cardiomyopath y Ischemic; Medicine in M.D. Congestive Heart Failure Ejection Fracti on Less Than 40 Percent (HCC); [place], [place] [address] Diabetes Mellitus Type 2 Hyp erglycemia (HCC); [address] [facility] Hypertension Essential Primary; [place], [place], Hyperlipidemia On Treatment [address] [place] [phone] [id number] Social History Tobacco Use Types Packs/Day Years [...] or relatives? How often do you attend jew or More than 4 times per year 02/09/2021 congregational services? Do you belong to any clubs or Yes 02/09/2021 organizations such as jew groups, unions, fraternal or athletic groups, or [...] Sign Reading Time Taken Comments Blood Pressure 143/86 03/20/2021 4:07 PM MANAGING BROKER Pulse 83 03/20/2021 4:07 PM MANAGING BROKER Temperature - - Respiratory Rate - - Oxygen Saturation - - Inhaled Oxygen Concentration - - Weight 86.2 kg (190 lb 0.6 oz) 03/20/2021 4:07 PM MANAGING BROKER Height 178.1 cm (5' 10.12) 03/20/2021 4:07 PM MANAGING BROKER Body Mass Index 27.18 03/20/2021 4:07 PM MANAGING BROKER documented in this encounter Consult Notes Triston Olivares M.D. - 03/20/2021 5:00 PM CST OUTPATIENT ELECTROPHYSIOLOGY CONSULT ?? CHIEF COMPLAINT / REASON FOR VISIT Primary prevention ICD implant candidacy and pre-implant check. ?? HISTORY OF PRESENT ILLNESS Mr. Fairbanks is a 55 year old man, referred from Drs. Wesley and Bekah for primary prevention ICD implant which is scheduled for tomorrow. The patient has CMi with EF 31% and prior AMI in December of 2019. He was seen here in November of 2020 in the [facility] by Dr. Rudd for pulmonary edema. He subsequently caught COVID-19 in December (see positive test at the end of December). He has no fevers now but a slight leukocytosis with shift. There is a residual cough. He saw Dr. Wesley on 02/23/21 who noted he was on BB and ARB. A cath was done to facilitate Cx FFR which was > 0.9. No PCI was necessary. He was seen by Dr. Godfrey who noted he was on GDMT and met criteria for ICD. He is a newly diagnosed diabetic. He denies angina nor syncope currently. He can lay flat and is right handed. He had worked for the [employer] locally. Patient Active Problem List Diagnosis ??? Diabetes Mellitus Type 2 Hyperglycemia (HCC) ??? Hypertension Essential Primary ??? Atherosclerotic Heart Disease [place] Coronary Artery With Other Forms Angina Pectoris (Stable Angina/Angina Of Exertion) (HCC) ??? Pneumothorax Unspecified ??? Cardiomyopathy Ischemic ??? Congestive Heart Failure Ejection Fraction Less Than 40 Percent (HCC) ??? Failure Heart (HCC) ??? Hyperlipidemia On Treatment Past Medical History: Diagnosis Date ??? Diabetes Mellitus NOS ??? Hyperlipidemia ??? Hypertension NOS ??? Pneumonia ??? ST Elevation Myocardial Infarction Of Unspecified Site (HCC) Past Surgical History: Procedure Laterality Date ??? CARDIAC CATHETERIZATION N/A 02/24/2021 Procedure: Instantaneous Flow [place]; Surgeon: Monico Rizo M.D.; Location: [facility] ??? CATH ANGIOGRAM N/A 12/02/2020 Procedure: Coronary Angiography; Surgeon: Raphael Holman M.B., B.Ch.; Location: [facility] CCL ??? CATH ANGIOGRAM N/A 02/24/2021 Procedure: Coronary Angiography; Surgeon: Monico Rizo M.D.; Location: [facility] CCL ??? CORONARY STENT PLACEMENT ??? OTHER CONVERTED SHX (SEE COMMENT) 12/31/2002 >Esophagogastroduodenoscopy with Biopsies No Known Allergies MEDICATIONS Current Medications: ??? acetaminophen (TYLENOL) 500 [...] flash glucose scanning reader (FreeStyle Jose 2 [place]) misc, 1 kit daily. ??? flash glucose sensor (FreeStyle Jose 2 Sensor) kit, 1 kit every 14 (fourteen) days. ??? furosemide (LASIX) 20 mg tablet, Take 1 tablet (20 mg total) by mouth daily as needed (take a dose, if there is more than 3 pounds weight gain). ??? gabapentin (NEURONTIN) 300 mg capsule, Take 1 capsule (300 mg total) by mouth at bedtime. ??? lancets, 2 each daily. ??? losartan (COZAAR) 100 mg tablet, Take 1 tablet (100 mg total) by mouth daily. ??? metFORMIN XR (GLUCOPHAGE-XR) 500 mg 24 hr tablet, Take 4 tablets (2,000 mg total) by mouth dailywith breakfast. ??? metoprolol succinate (TOPROL-XL) 100 mg 24 [...] needed for wheezing or shortness of breath. VITALS BP 143/86 (BP Location: Right arm, Patient Position: Sitting) Pulse 83 Ht 178.1 cm Wt 86.2 kg BMI 27.18 kg/m?? PHYSICAL EXAMINATION General: NAD. Vessels: 3+ w/o B. Heart: RRR, S1S2 w/o MGR. Lungs: Clear. DIAGNOSTIC REVIEW All labs and diagnostic studies were reviewed. The Holter shows: Sinus at 70-131 with 596 PVCs and 38 APCs. There was no AF nor VT. The CMR showed an EF of 31% with scar in LAD territory. The ECG showsslight residual JANETTE, but no LVA is remarked upon on the imagine. TTE earlier this year showed EF 44%and RVSP of 45 mm Hg. Cath showed: LMCA 10; LAD 20/40/30; CX 50; LPDA 50; LPLA 30; OM1 50. Bloods show: Hb 12.9; WBC 13,500; PLTs 343 K; INR 1; Na 140; K 4.8; Creat 1. The BNP has fallen from1,515 to 608. There is no TSH. The HbA1c has fallen from 10.3 to 6.4. ASSESSMENT / PLAN #1 Atherosclerotic Heart Disease [place] Coronary Artery With Other Forms Angina Pectoris (Stable Angina/Angina Of Exertion) ([facility]) #2 Cardiomyopathy Ischemic #3 Congestive Heart Failure Ejection Fraction Less Than 40 Percent ([facility]) #4 Diabetes Mellitus Type 2 Hyperglycemia ([facility]) #5 Hypertension Essential Primary #6 Hyperlipidemia On Treatment I discussed with him the ramifications of sudden in this setting at 3% per year that is prevented by the ICD (MADIT-2 Data sets). He does not require EXPELLER WORKER (QRSD = 90 with normal FL) nor an atrial lead (no AF). Thus a single lead left sided ICD is indicated. I described the risk and goals of the procedure including , stroke, and [place] at 04/999. I also described the following for complications which total 2%: Perforation requiring pericardiocentesis or surgery, clots, bleeding or hemopneumothorax requiring chest tube or evacuation, clots on the lead causing DVT that would require possible anticoagulation, and infection necessitating antibiotics or removal and revision of the device. We also talked about the early lead dislodgement rate of 2% and the late lead or component failure rate of -1999 per year. Written informed consent was obtained. txtr scrubs [facility] NPO after [place] was instructed. His is here so SDD is a possibility and this was discussed. Questions answered. Triston Olivares M.D. ?? GING BROKER documented in this encounter Plan of Treatment Not on filedocumented as of this encounter Visit Diagnoses Diagnosis Atherosclerotic Heart Disease [place] Cor onary Artery With Other Forms Angina Pectoris (Stable Angina/Angina Of Exertion) (HCC) - Primary Cardiomyopathy Ischemic Congestive Heart Failure Ejection Fracti on Less Than 40 Percent (HCC) Diabetes Mellitus Type 2 Hyperglycemia ( HCC) Hypertension Essential Primary Hyperlipidemia On Treatment documented in this encounter Care Teams Life Specialist Relationship Specialty Start Date End Date Elsewhere, Pcp PCP - General 02/22/21 documented as of this encounter
--- OUTSIDE RECORDS SUMMARY | 2022-04-02 01:27 | XMS_ITS | Encounter Summary ---
:1965 Author Organization [facility] Address [address] [place] [id number] Care Team Providers Name Role Phone None Reported, Pcp Primary Care Provider Unavailable Reason for Referral MRI/CAT/PET Scan (Routine) - Closed Specialty Diagnoses / Procedures Referred By Contact Refer red To Contact Radiology Diagnoses Failure Heart (HCC) Osman Wesley M.D. [facility] Procedures MR Cardiac without and with IV Contrast [address] [place] [address] Referral ID Status Reason Start Date Expiration Date Visits Requ ested Visits Authorized [id number] Closed 02/09/2021 02/09/2022 1 1 Reason for Visit MRI/CAT/PET Scan (Routine) - Closed Specialty Diagnoses / Procedures Referred By Contact Refer red To Contact Radiology Diagnoses Failure Heart (HCC) Osman Wesley M.D. [facility] Procedures MR Cardiac without and with IV Contrast [address] [place] [address] Referral ID Status Reason Start Date Expiration Date Visits Requ ested Visits Authorized [id number] Closed 02/09/2021 02/09/2022 1 1 Encounter Details Date Type Department Care Team Description 02/10/2021 Hospital Encounter Department of Osman Wesley Failu re Heart (HCC) Radiology, Jennifer Howard [facility], in [address] [place], [place] [address] [facility] [address] [place], [place] [phone] [phone] (Work) [phone] Social History Tobacco Use Types Packs/Day Years [...] or relatives? How often do you attend christianity or More than 4 times per year 02/09/2021 jain services? Do you belong to any clubs or Yes 02/09/2021 organizations such as christianity groups, unions, fraternal or athletic groups, or [...] Sign Reading Time Taken Comments Blood Pressure - - Pulse - - Temperature - - Respiratory Rate - - Oxygen Saturation - - Inhaled Oxygen Concentration - - Weight 87.8 kg (193 lb 9 oz) 02/10/2021 3:14 PM CDT Height 175.4 cm (5' 9.06) 02/10/2021 3:14 PM CDT Body Mass Index 28.54 02/10/2021 3:14 PM CDT documented in this encounter Medications at Time [...] as directed for 1 each 0 2020 [facility] diabetes control. blood-glucose meter Test as directed for 1 each 0 2020 miscIndications: diabetes control. Diabetes Mellitus Type 2 Hyperglycemia (HCC) metoprolol succinate TAKE 1 TABLET BY 60 tablet 1 1 (TOPROL-XL) 100 mg 24 MOUTH DAILY, DO NOT hr tablet CRUSH OR CHEW multivitamin tablet Take 1 tablet by 0 mouth daily. Diabetic Complete Multivitamin clopidogreL (PLAVIX) 75 TAKE 1 TABLET BY [...] total) by mouth every morning before breakfast. Proventil HFA 90 Inhale 2 puffs every 6.7 g 11 1 02/23/2021 mcg/actuation inhaler 4 (four) hours as needed for wheezing or shortness of breath. Ventolin HFA 90 Inhale 2 puffs every 18 g 5 02/23/2021 02/23/2021 mcg/actuation inhaler 4 (four) hours as needed for wheezing or shortness of breath. documented as of this encounter Plan of Treatment Not on filedocumented as of this encounter Procedures Procedure Name Priority Date/Time Associated Comments Diagnosis MR CARDIAC RAD - Routine 02/10/2021 4:17 Failure Heart Results fo r this WITHOUT AND WITH (most inpatients PM CDT ([facility]) procedu re are in IV CONTRAST and all the results outpatients) section. documented in this encounter Results MR Cardiac without and with IV Contrast (02/10/2021 4:17 PM CDT) Anatomical Region Laterality Modality Cardiac, Cardiovascular RST LOS, Thoracic ARZ LOS, N/A Magnetic Resonance Cardiovascular FLA LOS Specimen (Source) Anatomical Collection Method Collection Time Re ceived Time Location / / Volume Laterality 02/13/2021 9:33 AM CDT Impressions 02/13/2021 9:54 AM CDT Prior LAD territory myocardial infarction ??involving the mid ventricular anterior, anteroseptal, and anterolatera l wall, and apical anterior wall, septum, and lateral wall. The affected segments demonstrate signif icant thinning and hypokinesis and the amount of scar tissue is greater than 50 percent of the myocardial wall thickness of most of the affected segmen ts implying low likelihood of significant functional recovery in these areas. Markedly reduced LV ejection fraction of 31 percent with regionality as above. No thrombus in the left ventricle. Narrative 02/13/2021 9:54 AM CDT EXAM: ??MR CARDIAC WITHOUT AND WITH IV CONTRAST COMPARISON: ??Chest CT 01/29/2021 FINDINGS: ?? Left ventricle: There are findings consistent with prior LAD territory myocardial infarction. At the mid ventricle there is moderate t hinning and hypokinesis of the anterior wall and anteroseptal and milder thinnin g and hypokinesis of the anterolateral wall. There is severe thinning and akinesis of the anterior, anteroseptal, anterolateral apex. There is typical infarct-type subendocar dial delayed enhancement involving these territories. At the mid ventricle, the delayed enhanc ement involves more than 50 percent of myocardial wall thickness in the anterio r wall and anteroseptum and approximately 25 percent thickness of th e mid ventricular anterolateral wall. In the apex, the enhancement is largely transmural in the anterior and anteroseptal and inferior apex but less than 25 percent thickness in the anterolateral and lateral apex. These fi ndings are best seen on series 11, 12, and 17. Overall the findings imply low likelihoo d of significant recovery of function in the infarcted segments. No thrombus in the left ventricle. Right ventricle: Normal right ventricular size and ejecti on fraction, with no regional wall motion abnormalities. No abnormal right ventricular enhancemen t. Pericardium: Normal thickness pericardium with no sig nificant effusion. Other: Stable small to moderate left pleural ef fusion and atelectasis in the left lower lobe. MEASUREMENTS: Patient weight: 88 kg Patient height: 176 cm BSA: 2.1 m2 Series 6: LEFT VENTRICLE: LV End Diastolic Volume = 237mL; Index = 114mL/m2 (normal = 55-115) LV End Systolic Volume = 163mL; Index = 79mL/m2 (normal = 20-52) LV Stroke Volume = 74mL; Index = 36mL/m2 (normal = 29-69) LV Ejection Fraction = 31% (normal = 48- 68) LV End Diastolic Mass = 187g; Index = 90 g/m2 (normal = 35-71) Series 6: RIGHT VENTRICLE: RV End Diastolic Volume = 143mL; Index = 69mL/m2 (normal = 59-127) RV End Systolic Volume = 74mL; Index = 3 6mL/m2 (normal = 21-65) RV Stroke Volume = 69mL; Index = 33mL/m2 (normal = 32-68) RV Ejection Fraction = 48% (normal = 42- 66) Procedure Note Prince Tamayo M.D. - 02/13/2021Forma tting of this note might be different from the original. EXAM: MR CARDIAC WITHOUT AND WITH IV CON TRAST COMPARISON: Chest CT 01/29/2021 FINDINGS: Left ventricle: There are findings consistent with prior LAD territory myocardial infarction. At the mid ventricle there is moderate t hinning and hypokinesis of the anterior wall and anteroseptal and milder thinnin g and hypokinesis of the anterolateral wall. There is severe thinning and akinesis of the anterior, anteroseptal, anterolateral apex. There is typical infarct-type subendocar dial delayed enhancement involving these territories. At the mid ventricle, the delayed enhanc ement involves more than 50 percent of myocardial wall thickness in the anterio r wall and anteroseptum and approximately 25 percent thickness of th e mid ventricular anterolateral wall. In the apex, the enhancement is largely transmural in the anterior and anteroseptal and inferior apex but less than 25 percent thickness in the anterolateral and lateral apex. These fi ndings are best seen on series 11, 12, and 17. Overall the findings imply low likelihoo d of significant recovery of function in the infarcted segments. No thrombus in the left ventricle. Right ventricle: Normal right ventricular size and ejecti on fraction, with no regional wall motion abnormalities. No abnormal right ventricular enhancemen t. Pericardium: Normal thickness pericardium with no sig nificant effusion. Other: Stable small to moderate left pleural ef fusion and atelectasis in the left lower lobe. MEASUREMENTS: Patient weight: 88 kg Patient height: 176 cm BSA: 2.1 m2 Series 6: LEFT VENTRICLE: LV End Diastolic Volume = 237mL; Index = 114mL/m2 (normal = 55-115) LV End Systolic Volume = 163mL; Index = 79mL/m2 (normal = 20-52) LV Stroke Volume = 74mL; Index = 36mL/m2 (normal = 29-69) LV Ejection Fraction = 31% (normal = 48- 68) LV End Diastolic Mass = 187g; Index = 90 g/m2 (normal = 35-71) Series 6: RIGHT VENTRICLE: RV End Diastolic Volume = 143mL; Index = 69mL/m2 (normal = 59-127) RV End Systolic Volume = 74mL; Index = 3 6mL/m2 (normal = 21-65) RV Stroke Volume = 69mL; Index = 33mL/m2 (normal = 32-68) RV Ejection Fraction = 48% (normal = 42- 66) IMPRESSION: Prior LAD territory myocardial infarctio n involving the mid ventricular anterior, anteroseptal, and anterolatera l wall, and apical anterior wall, septum, and lateral wall. The affected segments demonstrate signif icant thinning and hypokinesis and the amount of scar tissue is greater than 50 percent of the myocardial wall thickness of most of the affected segmen ts implying low likelihood of significant functional recovery in these areas. Markedly reduced LV ejection fraction of 31 percent with regionality as above. No thrombus in the left ventricle. Osman MÉNDEZ MRI PROCEDURES documented in this encounter Visit Diagnoses Diagnosis Failure Heart (HCC) documented in this encounter Administered Medications Inactive Administered Medications - up to 3 most recent administrations Medication Order MAR Action Action Date Dose Rate Site gadobutrol injection 0.01-30 mL Given 02/10/2021 4:17 PM CDT 18 mL (GADAVIST) 0.01-30 mL, intravenous, Once in imaging, contrast, Starting on Sat02/10/21 at 1507, For 1 dose, Imaging Protocol Orders, Dose per Radiant Medication Guidelines Intrathecal doses greater than 0.25 mL not recommended. sodium chloride (PF) 0.9 % injection 1-1 00 mL Given 02/10/2021 4:18 PM CDT 20 mL 1-100 mL, intravenous, Once, On Sat02/10/21 at 1515, For 1 dose, Imaging Protocol Orders documented in this encounter Additional Health Concerns Infection Onset Date Last Indicated Resolved Time COVID19 01/26/2021 01/26/2021 02/15/2021 4:55 AM CDT documented as of this encounter Care Teams Mat Gauger Relationship Specialty Start Date End Date None Reported, Pcp PCP - General Family Medicine 01/25/2102/21 documented as of this encounter
--- OUTSIDE RECORDS SUMMARY | 2022-04-02 01:27 | XMS_ITS | Encounter Summary ---
:1965 Author Organization [facility] Address [address] [place] [address] Care Team Providers Name Role Phone None Reported, Pcp Primary Care Provider Unavailable Reason for Visit Reason Comments Patient Education Encounter Details Date Type Department Care Team Description 01/27/2021 Clinical Communication Department of Luciana Bhagat ent Education Infusion Therapy in [place], [place] [address] [place] [address] Social History Tobacco Use Types Packs/Day Years [...] or relatives? How often do you attend mosque or More than 4 times per year 02/09/2021 faith services? Do you belong to any clubs or Yes 02/09/2021 organizations such as mosque groups, unions, fraternal or athletic groups, or [...] or slept in a residential (including now)? Sex Assigned at Date Recorded Male 02/09/2021 2:11 PM CDT documented as of this encounter Plan of Treatment Not on filedocumented as of this encounter Visit Diagnoses Not on filedocumented in this encounter Additional Health Concerns Infection Onset Date Last Indicated Resolved Time COVID19 01/26/2021 01/26/2021 02/15/2021 4:55 AM CDT documented as of this encounter Care Teams Fur Liner Relationship Specialty Start Date End Date None Reported, Pcp PCP - General Family Medicine 01/25/2102/21 documented as of this encounter
--- OUTSIDE RECORDS SUMMARY | 2022-04-02 01:27 | XMS_ITS | Encounter Summary ---
:1965 [facility] Address [address] [place] [address] Care Team Providers Name Role Phone None Reported, Pcp Primary Care Provider Unavailable Encounter Details Date Type Department Care Team Description 02/09/2021 Hospital Department of Michele, Pneumothorax U nspecified; Encounter Laboratory Erica Campoverde, Hypertension Es sential Primary; Medicine and [employer] CR[employer]HER, C.N.P., Atheroscleroti c Heart Disease [place] Coronary Artery With Other Forms Angina Pectoris (Stable Angina/Angina Of Exertion) (HCC); Pathology, Ron Zepeda Diabetes Mellitus Type 2 Hyperglycemia ( [facility]); Building, in [address] [place] [address] Failure Heart (HCC); [place], [place] Effusion Pleur [place] [address] [place] [address] [place], [place] (Work) [phone] Social History Tobacco Use Types Packs/Day Years [...] More than 4 times per year 02/09/2021 caodaism services? Do you belong to any clubs [...] Inhale 2 puffs every 6.7 g 11 02/23/2021 mcg/actuation inhaler 4 (four) hours as needed for wheezing or shortness of breath. Ventolin HFA 90 Inhale 2 puffs every 18 g 5 02/23/2021 02/23/2021 mcg/actuation inhaler 4 (four) hours as needed for wheezing or shortness of breath. documented as of this encounter Plan of Treatment Not on filedocumented as of this encounter Procedures Procedure Name Priority Date/Time Associated Diagnosis Comme nts LIPID PANEL, S Routine 02/09/2021 8:17 AM Pneumothorax Results for this CDT Unspecified procedure are in Hypertension the results Essential Primar y section. Atherosclerotic Heart Disease [place] Coronary Artery With Other Forms Angina Pectoris (Stable Angina/Angina Of Exertion) ([facility]) Diabetes Mellitus Type 2 Hyperglycemia ([facility]) Failure Heart ([facility]) NT-PRO B-TYPE Routine 02/09/2021 8:17 AM Pneumothorax Results for this NATRIURETIC PEPTIDE CDT Unspecified procedure are in (BNP), S Hypertension the results Essential Primar y section. Atherosclerotic Heart Disease [place] Coronary Artery With Other Forms Angina Pectoris (Stable Angina/Angina Of Exertion) ([facility]) Diabetes Mellitus Type 2 Hyperglycemia ([facility]) Failure Heart ([facility]) CBC WITH Routine 02/09/2021 8:17 AM Pneumothorax Results f or this DIFFERENTIAL, B CDT Unspecified procedure are in Hypertension the results Essential Primar y section. Atherosclerotic Heart Disease [place] Coronary Artery With Other Forms Angina Pectoris (Stable Angina/Angina Of Exertion) ([facility]) Diabetes Mellitus Type 2 Hyperglycemia ([facility]) Failure Heart ([facility]) HEMOGLOBIN A1C, B Routine 02/09/2021 8:17 AM Diabetes Mellitus Results for this CDT Type 2 Hyperglycemia procedu re are in (HCC) the results section. BASIC METABOLIC Routine 02/09/2021 8:17 AM Pneumothorax Result s for this PANEL, S/P CDT Unspecified procedure are in Hypertension the results Essential Primar y section. Atherosclerotic Heart Disease [place] Coronary Artery With Other Forms Angina Pectoris (Stable Angina/Angina Of Exertion) (HCC) Diabetes Mellitus Type 2 Hyperglycemia (HCC) Failure Heart (HCC) documented in this encounter Results (ABNORMAL) Hemoglobin A1c (02/09/2021 8:17 AM CDT) athologist Signature Hemoglobin A1c, 6.4 (H) 4.0 - 5.6 02/09/2021 DT B % 9:57 AM CDT Comment: Hemoglobin A1c values of 5.7-6.4 percent indicate an increased risk for developing diabetes m ellitus. In diabetic patients, HbA1c goals should be discussed with healthcare provider. Specimen Anatomical Collection Method Collection Time Receive d Time (Source) Location / / Volume Laterality Blood (Blood, 02/09/2021 8:17 AM 02/10/20 8:45 Venous) CDT AM CDT Isidro Laurent M.D. LAB BLOOD ADD-ON Performing Organization Address City/[facility]/ZIP Code Phon e Number [facility] - [address] [place], [place] [address] [place] [address] Laboratories-[facility] [address] (ABNORMAL) NT-Pro B-Type Natriuretic Peptide (BNP) (02/09/2021 8:17 AM CDT) athologist Signature NT-Pro BNP 1515 (H) <=67 pg/mL 02/09/2021 DTL 10:15 AM CDT Comment: NT-proBNP values less than 300 [...] Location / / Volume Laterality Blood (Blood, 02/09/2021 8:17 AM 02/10/20 9:14 Venous) CDT AM CDT Erica Bautista APRN, C.N.P., M.S.N. LAB BLOOD ADD- ON Performing Organization Address City/State/ZIP Code Phon e Number [facility] - [address] [place], [place] [address] [place] [address] [facility] [address] [facility] (ABNORMAL) Lipid Panel (02/09/2021 8:17 AM CDT) athologist Signature Cholesterol, 83 mg/dL 02/09/2021 DTL Total 10:15 AM CDT Comment: ----REFERENCE VALUE---- Desirable: < 200 Borderline high: 200 - 239 High: > or = 240 Triglycerides 66 mg/dL 02/09/2021 10:15 AM CDT DT L Comment: ----REFERENCE VALUE---- Normal: <150 Borderline high: 150-199 High: 200-499 Very high: > or =500 Cholesterol, HDL, S 39 (L) >=40 mg/dL 02/09/2021 10:15 AM CDT DTL Calculated LDL 31 mg/dL 02/09/2021 10:15 AM CDT D TL Comment: ----REFERENCE VALUE---- Desirable: <100 mg/dL Above Desirable: 100-129 mg/dL Borderline High: 130-159 mg/dL High: 160-189 mg/dL Very High: >=190 mg/dL Cholesterol, Non-HDL, Calculated 44 mg/dL 021 10:15 AM CDT DTL Comment: ----REFERENCE VALUE---- Desirable: <130 Above Desirable: 130-159 Borderline high: 160-189 High: 190-219 Very high: > or =220 Specimen Anatomical Collection Method Collection Time Receive d Time (Source) Location / / Volume Laterality Blood (Blood, 02/09/2021 8:17 AM 02/10/20 9:14 Venous) CDT AM CDT Erica Bautista APRN, C.N.P., M.S.N. LAB BLOOD ADD- ON Performing Organization Address City/State/ZIP Code Phon e Number [facility] - [address] [place], [place] [address] [facility] [facility] [place] [address] Laboratories-[facility] [address] [facility] Basic Metabolic Panel (02/09/2021 8:17 AM CDT) athologist Signature Potassium, S 5.1 3.6 - 5.2 02/09/2021 DTL mmol/L 9:53 AM CDT Sodium, S 143 135 - 145 02/09/2021 DTL mmol/L 9:53 AM CDT Chloride, S 105 98 - 107 02/09/2021 DTL mmol/L 9:53 AM CDT Bicarbonate, S 29 22 - 29 02/09/2021 DTL mmol/L 9:53 AM CDT Anion Gap 9 7 - 15 02/09/2021 DTL 9:53 AM CDT BUN (Blood Urea 10 8 - 24 02/09/2021 DTL Nitrogen), S mg/dL 9:53 AM CDT Creatinine 1.08 0.74 - 02/09/2021 DTL 1.35 mg/dL 9:53 AM CDT eGFR-Non 77 >=60 02/09/2021 DTL Black/ mL/min/BSA 9:53 AM CDT [place] Comment: ----ADDITIONAL INFORMATION---- Estimated GFR calculated using the 2009 CKD_EPI creatinine equation. eGFR-Black/ 89 >=60 mL/min/BSA 2020 9:53 AM CDT DTL Comment: ----ADDITIONAL INFORMATION---- Estimated GFR calculated using the 2009 CKD_EPI creatinine equation. Calcium, Total, S 9.6 8.6 - 10.0 mg/dL 02/09/2021 9:53 AM CDT DTL Glucose, S 93 70 - 140 mg/dL 02/09/2021 9:53 AM CDT D TL Specimen Anatomical Collection Method Collection Time Receive d Time (Source) Location / / Volume Laterality Blood (Blood, 02/09/2021 8:17 AM 02/10/20 9:11 Venous) CDT AM CDT Colt Hyde APRN.N.P., M.S.N. LAB BLOOD ADD- ON Performing Organization Address City/State/ZIP Code Phon e Number [facility] - [address] [place], [place] [address] [facility] [place] [address] Laboratories-[facility] [address] (ABNORMAL) CBC with Differential, Blood (02/09/2021 8:17 AM CDT) Patholo gist Method Time Signature Hemoglobin 13.1 (L) 13.2 - 02/09/2021 DTL 16.6 g/dL 9:26 AM CDT Hematocrit 40.8 38.3 - 02/09/2021 DTL 48.6 % 9:26 AM CDT Erythrocytes 4.72 4.35 - 02/09/2021 DTL 5.65 9:26 AM CDT x10(12)/L MCV 86.4 78.2 - 02/09/2021 DTL 97.9 fL 9:26 AM CDT RBC Distrib Width 14.2 11.8 - 02/09/2021 DTL 14.5 % 9:26 AM CDT Platelet Count 429 (H) 135 - 317 02/09/2021 DTL x10(9)/L 9:26 AM CDT Leukocytes 12.4 (H) 3.4 - 9.6 02/09/2021 DTL x10(9)/L 9:26 AM CDT Neutrophils 8.11 (H) 1.56 - 02/09/2021 DTL 6.45 9:26 AM CDT x10(9)/L Lymphocytes 2.55 0.95 - 02/09/2021 DTL 3.07 9:26 AM CDT x10(9)/L Monocytes 0.80 0.26 - 02/09/2021 DTL 0.81 9:26 AM CDT x10(9)/L Eosinophils 0.76 (H) 0.03 - 02/09/2021 DTL 0.48 9:26 AM CDT x10(9)/L Basophils 0.16 (H) 0.01 - 02/09/2021 DTL 0.08 9:26 AM CDT x10(9)/L Specimen Anatomical Collection Method Collection Time Receive d Time (Source) Location / / Volume Laterality Blood (Blood, 02/09/2021 8:17 AM 02/10/20 8:45 Venous) CDT AM CDT Erica Bautista APRN C.N.P., M.S.N. LAB BLOOD ADD- ON Performing Organization Address City/State/ZIP Code Phon e Number [facility] - [address] [place], [place] [address] [facility] [place] [address] Laboratories-[facility] [address] documented in this encounter Visit Diagnoses Diagnosis Pneumothorax Unspecified Hypertension Essential Primary Atherosclerotic Heart Disease [place] Cor onary Artery With Other Forms Angina Pectoris (Stable Angina/Angina Of Exertion) (HCC) Diabetes Mellitus Type 2 Hyperglycemia ( HCC) Failure Heart (HCC) Effusion Pleural documented in this encounter Additional Health Concerns Infection Onset Date Last Indicated Resolved Time COVID19 01/26/2021 01/26/2021 02/15/2021 4:55 AM CDT documented as of this encounter Care Teams Mold Shop Supervisor Relationship Specialty Start Date End Date None Reported, Pcp PCP - General Family Medicine 01/25/2102/21 documented as of this encounter
--- OUTSIDE RECORDS SUMMARY | 2022-04-02 01:27 | XMS_ITS | Encounter Summary ---
:1965 Author Organization [facility] Address [address] [place] [address] Care Team Providers Name Role Phone None Reported, Pcp Primary Care Provider Unavailable Encounter Details Date Type Department Care Team Description 01/31/2021 Documentation Division of Pulmonary Greg Camacho, Medicine in [place], Brenden Nieves M.D. [place] [address] [place] [id number] [phone] (Wo rk) Social History Tobacco Use Types [...] or relatives? How often do you attend roman catholic or More than 4 times per year 02/09/2021 muslim services? Do you belong to any clubs or Yes 02/09/2021 organizations such as roman catholic groups, unions, fraternal or athletic groups, or [...] place to sleep or slept in a detention (including now)? Sex Assigned at Date Recorded Male 02/09/2021 2:11 PM CDT documented as of this encounter Progress Notes Brenden Rodriguez M.D. - 01/31/2021 5:53 PM CDT Discussed with Mr. Fairbanks and his Kiarra regarding thoracentesis. Per previous documentation, the plan was to stop Plavix 1 year after stent was placed (December 2019). He has stopped his Plavixstarting today. I discussed with Cardiology regarding this. Because we need to wait until Plavix is out of his system, would plan for Thoracentesis Saturday. I discussed with them that if he starts getting fevers or worsening symptoms to call me, and if it happens at night, to go to the emergency room, given concern for possible infected effusion. documented in this encounter Miscellaneous Notes Addendum Note - Brenden Rodriguez M.D. - 01/31/2021 5:53 PM CDT Addended by: BRENEDN RODRIGUEZ on: 02/07/2021 11:14 AM Modules accepted: Orders documented in this encounter Plan of Treatment Not on filedocumented as of this encounter Results Protein, Total (02/07/2021 12:42 PM CDT) P athologist Signature Protein, Total, 6.9 6.3 - 7.9 02/07/2021 DTL S g/dL 1:54 PM CDT Specimen Anatomical Collection Method Collection Time Receive d Time (Source) Location / / Volume Laterality Blood (Blood, 02/07/2021 12:42 02/07/2021 1:35 Venous) PM CDT PM CDT Brenden Camacho M.D. LAB BLOOD ADD-ON Performing Organization Address City/[facility] Code Phon e Number [facility] - [address] LD (Lactate Dehydrogenase) (02/07/2021 12:42 PM CDT) Analysis Performed At Patho logist Time Signature Lactate 181 122 - 222 02/07/2021 DTL Dehydrogenase U/L 1:54 PM CDT (LD), S Specimen Anatomical Collection Method Collection Time Receive d Time (Source) Location / / Volume Laterality Blood (Blood, 02/07/2021 12:42 02/07/2021 1:35 Venous) PM CDT PM CDT Brenden Camacho M.D. LAB BLOOD NON ADD-ON Performing Organization Address City/[facility] Phon e Number [facility] - [address] [place] [address] Laboratories-[facility] [address] documented in this encounter Visit Diagnoses Diagnosis Effusion Pleural - Primary documented in this encounter Additional Health Concerns Infection Onset Date Last Indicated Resolved Time COVID19 01/26/2021 01/26/2021 02/15/2021 4:55 AM CDT documented as of this encounter Care Teams Digital Content Specialist Relationship Specialty Start Date End Date None Reported, Pcp PCP - General Family Medicine 01/25/2102/21 documented as of this encounter
--- OUTSIDE RECORDS SUMMARY | 2022-04-02 01:27 | XMS_ITS | Encounter Summary ---
:1965 Author Organization [facility] Address [address] [place] [address] Care Team Providers Name Role Phone None Reported, Pcp Primary Care Provider Unavailable Reason for Referral MRI/CAT/PET Scan (Routine) - Closed Specialty Diagnoses / Procedures Referred By Contact Refer red To Contact Radiology Diagnoses Dyspnea Multifactorial Effusion Pleural Garzaulysses Camacho [facility] Procedures CT Chest with IV Contrast CT Chest without IV Contrast Anita Nieves [address] [place] [address] Referral ID Status Reason Start Date Expiration Date Visits Requ ested Visits Authorized [id number] Closed 01/27/2021 01/27/2022 1 1 Reason for Visit MRI/CAT/PET Scan (Routine) - Closed Specialty Diagnoses / Procedures Referred By Contact Refer red To Contact Radiology Diagnoses Dyspnea Multifactorial Effusion Pleural Greg Camacho [facility] Procedures CT Chest with IV Contrast CT Chest without IV Contrast Anita Nieves [address] [place] [address] Referral ID Status Reason Start Date Expiration Date Visits Requ ested Visits Authorized [id number] Closed 01/27/2021 01/27/2022 1 1 Encounter Details Date Type Department Care Team Description 01/29/2021 Hospital Encounter Department of Amelia Rodriguez pnea Multifactorial; Radiology, Daniel Tran Effusion Pleural Building, in 200 [facility] [address] [place], [place] (Work) [phone] [phone] Social History Tobacco Use Types Packs/Day Years [...] or relatives? How often do you attend zoroastrianism or More than 4 times per year 02/09/2021 sabianist services? Do you belong to any clubs or Yes 02/09/2021 organizations such as zoroastrianism groups, unions, fraternal or athletic groups, or [...] slept in a senior living (including now)? Sex Assigned at Date Recorded [...] oxyCODONE-acetaminophen TAKE ONE-HALF TABLET 10 tablet 0 08 /12/2020 12/05/2021 (PERCOCET) 10-325 mg BY MOUTH EVERY [...] of breath. documented as of this encounter Miscellaneous Notes Result Encounter Note - Zahraa Rodriguez M.D. - 01/30/2021 6:28 PM CDT Discussed with patient CT results and recommended thoracentesis, which he agrees. Will refer to pleural clinic documented in this encounter Plan of Treatment Not on filedocumented as of this encounter Procedures Procedure Name Priority Date/Time Associated Comments Diagnosis CT CHEST WITH IV RAD - Routine 01/29/2021 10:06 Dyspnea Result s for this CONTRAST (most inpatients AM CDT Multifactorial procedure are in and all Effusion Pleural the results outpatients) section. documented in this encounter Results CT Chest with IV Contrast (01/29/2021 10:06 AM CDT) Anatomical Region Laterality Modality Chest, Thoracic RST LOS, Thoracic ARZ N/A Co mputed Tomography, Computed LOS, Thoracic ARZ LOS, Thoracic FLA Santy graphy LOS Specimen (Source) Anatomical Collection Method Collection Time Re ceived Time Location / / Volume Laterality 01/29/2021 11:23 AM CDT Impressions 01/29/2021 11:37 AM CDT Interval enlargement of a now moderate to large left pleural effusion. There is no definite pleural e nhancement or thickening. No internal septations are seen. There is increasing presumed compressive atelectasis within the left lower lobe. Interval clearing of small right pleural effusion. Interval clearing of a focus of masslike consolidation within the lef t perihilar region. Interval removal of left chest tube with clearing of probabl e parenchymal hemorrhage. Narrative 01/29/2021 11:37 AM CDT EXAM: CT CHEST WITH IV CONTRAST COMPARISON: [facility] examination from 11/28/2020. FINDINGS: In the interval from the prior study of 11/28/2020, a moderate to large left pleural effusion has increased in size. The previously identified left pneumothorax has resolved. Increasing op acity within the lower lungs, especially within the left lower lobe likely repres ents compressive atelectasis. No definite pleural thickening or pleural e nhancement. No internal septations are identified. The masslike focus of consolidation with in the left perihilar region has resolved. Interval removal of left pigta il pleural drain, which had an intraparenchymal course. Groundglass and consolidative opacity within the left upper lobe, adjacent to the chest tube, has resolved. Interval resolution of prior small right pleural effusion and clearing of associated right basilar consolidation. Mild paraseptal emphysema, better demons trated within the right apex. Mild bronchial wall thickening. Multiple subcentimeter mediastinal and h ilar lymph nodes are stable in appearance from prior study. Aortic and coronary artery vascular calcification. Coronary artery stenting. Cholelithiasis. Negative adrenal glands. Mild gynecomastia. A small amount of density within the lateral left chest wa ll (series 6, image 94) corresponds to a small focus of soft tissue density and g as on the study of 11/28/2020. This may relate to scarring within a site of prio r chest tube placement. Minor degenerative changes thoracic spin e and sternomanubrial joint. Procedure Note Luis Givens M.D., Ph.D. - 01/29/2021 EXAM: CT CHEST WITH IV CONTRAST COMPARISON: [facility] examination from 11/28/2020. FINDINGS: In the interval from the prior study of 11/28/2020, a moderate to large left pleural effusion has increased in size. The previously identified left pneumothorax has resolved. Increasing op acity within the lower lungs, especially within the left lower lobe likely repres ents compressive atelectasis. No definite pleural thickening or pleural e nhancement. No internal septations are identified. The masslike focus of consolidation with in the left perihilar region has resolved. Interval removal of left pigta il pleural drain, which had an intraparenchymal course. Groundglass and consolidative opacity within the left upper lobe, adjacent to the chest tube, has resolved. Interval resolution of prior small right pleural effusion and clearing of associated right basilar consolidation. Mild paraseptal emphysema, better demons trated within the right apex. Mild bronchial wall thickening. Multiple subcentimeter mediastinal and h ilar lymph nodes are stable in appearance from prior study. Aortic and coronary artery vascular calcification. Coronary artery stenting. Cholelithiasis. Negative adrenal glands. Mild gynecomastia. A small amount of density within the lateral left chest wa ll (series 6, image 94) corresponds to a small focus of soft tissue density and g as on the study of 11/28/2020. This may relate to scarring within a site of prio r chest tube placement. Minor degenerative changes thoracic spin e and sternomanubrial joint. IMPRESSION: Interval enlargement of a now moderate t o large left pleural effusion. There is no definite pleural e nhancement or thickening. No internal septations are seen. There is increasing presumed compressive atelectasis within the left lower lobe. Interval clearing of small right pleural effusion. Interval clearing of a focus of masslike consolidation within the lef t perihilar region. Interval removal of left chest tube with clearing of probabl e parenchymal hemorrhage. Zahraa Camacho M.D. IMLady CT PROCEDURES documented in this encounter Visit Diagnoses Diagnosis Dyspnea Multifactorial Effusion Pleural documented in this encounter Administered Medications Inactive Administered Medications - up to 3 most recent administrations Medication Order MAR Action Action Date Dose Rate Site iohexoL 300 mg iodine/mL solution Given 01/29/2021 10:04 AM CDT 80 mL 1-200 mL (OMNIPAQUE) 1-200 mL, intravenous, Once in imaging, contrast, Starting on 01/29/21 at 0935, For 1 dose, Imaging Protocol Orders, Dose per Radiant Medication Guidelines documented in this encounter Additional Health Concerns Infection Onset Date Last Indicated Resolved Time COVID19 01/26/2021 01/26/2021 02/15/2021 4:55 AM CDT documented as of this encounter Care Teams Gun Profiler Relationship Specialty Start Date End Date None Reported, Pcp PCP - General Family Medicine 01/25/2102/21 documented as of this encounter
--- OUTSIDE RECORDS SUMMARY | 2022-04-02 01:27 | XMS_ITS | Encounter Summary ---
:1965 [facility] Address [address] [place] [address] Care Team Providers Name Role Phone None Reported, Pcp Primary Care Provider Unavailable Reason for Referral Outpatient (Routine) - Closed Specialty Diagnoses / Procedures Referred By Contact Refer red To Contact Diagnoses Pneumothorax Unspecified Hypertension Essential Primary Atherosclerotic Heart Disease [place] Coronary Artery With Other Forms Angina Pectoris (Stable Angina/Angina Of Exertion) (HCC) Diabetes Mellitus Type 2 Hyperglycemia (HCC) [facility] Colt SMALL.N.Roger., M.S.N. Procedures Echo Transthoracic (TTE) [address] [place], [place] [address] Referral ID Status Reason Start Date Expiration Date Visits Requ ested Visits Authorized [id number] Closed 02/03/2021 02/03/2022 1 1 Reason for Visit Outpatient (Routine) - Closed Specialty Diagnoses / Procedures Referred By Contact Refer red To Contact Diagnoses Pneumothorax Unspecified Hypertension Essential Primary Atherosclerotic Heart Disease [place] Coronary Artery With Other Forms Angina Pectoris (Stable Angina/Angina Of Exertion) ([facility]) Diabetes Mellitus Type 2 Hyperglycemia (HCC) [facility] Colt SMALL.N.P., M.S.N. Procedures Echo Transthoracic (TTE) [address] [place] [address] Referral ID Status Reason Start Date Expiration Date Visits Requ ested Visits Authorized [id number] Closed 02/03/2021 02/03/2022 1 1 Encounter Details Date Type Department Care Team Description 02/07/2021 Hospital Department of Michele Summer U nspecified; Encounter Cardiovascular Erica S, Hypertension Essential Primary; Diseases in WALLPAPERER, C.N.P., Atheroscleroti c Heart Disease [place] Coronary Artery With Other Forms Angina Pectoris (Stable Angina/Angina Of Exertion) ([facility]LY [facility]); [place], [place] M.S.N. Diabetes Mellitus Type 2 Hyperglycemia ( [facility]); [address] Failure Heart ([facility]) [place] [phone] Social History Tobacco Use Types Packs/Day Years [...] or relatives? How often do you attend anabaptism or More than 4 times per year 02/09/2021 caodaism services? Do you belong to any clubs or Yes 02/09/2021 organizations such as anabaptism groups, unions, fraternal or athletic groups, or [...] slept in a skilled nursing (including now)? Sex Assigned at Date Recorded [...] directed for 1 each 0 2020 [facility] [place]. blood-glucose meter Test as directed [...] Diagnosis Comme nts (TTE) 2D LIMITED Routine 02/07/2021 4:24 PM Pneumothorax Resul ts for this WITH COLOR AND CDT Unspecified procedure are in DOPPLER Hypertension Essential the r esults Primary section. Atherosclerotic Heart Disease [place] Coronary Artery With Other Forms Angina Pectoris (Stable Angina/Angina Of Exertion) (HCC) Diabetes Mellitus Type 2 Hyperglycemia (HCC) Failure Heart (HCC) documented in this encounter Results (TTE) 2D LIMITED WITH COLOR AND DOPPLER (02/07/2021 4:24 PM CDT) P athologist Signature Ejection 39 MC CV EIMS Fraction Wall Motion 1.88 MC CV EIMS Score Index LV End-Diastolic 206 MC CV EIMS Volume LV End-Systolic 125 MC CV EIMS Volume MV E Velocity 0.8 MC CV EIMS MV A Velocity 0.9 MC CV EIMS MV E/A 0.89 MC CV EIMS MV e' Velocity 0.07 MC CV EIMS Medial MV E/e' Medial 11.4 MC CV EIMS Left ventricular 31 MC CV EIMS stroke volume index Cardiac Output 5.17 MC CV EIMS Cardiac Index 2.49 MC CV EIMS Tricuspid 0.16 MC CV EIMS Annular S? TR Vmax 2.97 MC CV EIMS RA Pressure 5 MC CV EIMS RV Systolic 40 MC CV EIMS Pressure WMSI At Rest 1.88 MC CV EIMS WMSI At Peak 1.88 MC CV EIMS Stress Anatomical Region Laterality Modality Echocardiography Specimen (Source) Anatomical Collection Method Collection Time Re ceived Time Location / / Volume Laterality 02/07/2021 3:39 PM CDT Impressions 02/07/2021 4:39 PM CDT Last full echocardiogram performed 11/29/2020. ??Echocardiogram performed per left ventricular function protocol. ??LEFT VENTRICLE: ??M oderate-severely enlarged left ventricular chamber size. Calculated 2-D biplane volumetric left v entricular ejection fraction 39 %. ??Left ventricular cardiac index 2.49 l/min/m^2. ??Regional wall motion abnormalities were present (see wall motion graphics). ??Indeterminate left ventricu lar filling pressure. ??STRAIN IMAGING FINDINGS ??Left and right ventricular strain assessment was performed but not reported based on translator and interpreter's judgment. ??RIGHT VENTRICLE: ??Normal ri ght ventricular chamber size by visual estimate. ??Normal right ventricular systolic function. ??E stimated right ventricular systolic pressure 40 mmHg (systolic blood pressure 132 mmHg). ??AT SRI: ??Normal left atrial size by visual estimate. Normal right atrial size by visual estim ate. ??CARDIAC VALVES: ??Trileaflet aortic valve. Thickened aortic valve. ??No aortic valv e regurgitation. ??Thickened mitral valve. ??Calcified mitral annulus. ??Trivial mitral valve r egurgitation. ??Normal tricuspid valve. ??Trivial tricuspid valve regurgitation. ??OTHER E CHO FINDINGS: ??Normal inferior vena cava size with normal inspiratory collapse (>50%). ??No intracardiac mass or thrombus, but the left atrial appendage cannot be visualized adequatel y with transthoracic echo to exclude thrombus in this location. ??No pericardial effusion. For the complete report, see the [employer] Documents. Narrative 02/07/2021 4:39 PM CDT For the complete report, see the [employer] Documents. Final Impressions 1. Moderate-severely enlarged left ventr icular chamber size Calculated ejection fraction 39%. Estimated ejection fraction 45%. 2. Regional wall motion abnormalities we re present (see wall motion graphics). 3. Left ventricular cardiac index 2.49 l /min/m^2. 4. No hemodynamically significant valvul ar heart disease. 5. Normal right ventricular systolic fun ction. 6. Estimated right ventricular systolic pressure 40 mmHg (systolic blood pressure 132 mmHg). 7. Normal inferior vena cava size with n ormal inspiratory collapse (>50%). 8. No pericardial effusion. 9. Compared to the report of 11/29/2020 no significant change has occurred. Side by side comparison of images performed. Procedure Note Nany Alcazar M.D. - 02/07/2021Formatti ng of this note might be different from the original. For the complete report, see the [employer] Documents. Final Impressions 1. Moderate-severely enlarged left ventr icular chamber size Calculated ejection fraction 39%. Estimated ejection fraction 45%. 2. Regional wall motion abnormalities we re present (see wall motion graphics). 3. Left ventricular cardiac index 2.49 l /min/m^2. 4. No hemodynamically significant valvul ar heart disease. 5. Normal right ventricular systolic fun ction. 6. Estimated right ventricular systolic pressure 40 mmHg (systolic blood pressure 132 mmHg). 7. Normal inferior vena cava size with n ormal inspiratory collapse (>50%). 8. No pericardial effusion. 9. Compared to the report of 11/29/2020 no significant change has occurred. Side by side comparison of images performed. Findings Last full echocardiogram performed 11/29. Echocardiogram performed per left ventricular function protocol. LEFT VENTRICLE: Moder ate-severely enlarged left ventricular chamber size. Calculated 2-D biplane volumetric left v entricular ejection fraction 39 %. Left ventricular cardiac index 2.49 l/min/m^2. Regional w all motion abnormalities were present (see wall motion graphics). Indeterminate left ventricula r filling pressure. STRAIN IMAGING FINDINGS Left and right ventricular strain assessment was performed but not reported based on translator and interpreter's judgment. RIGHT VENTRICLE: Normal right ventricular chamber size by visual estimate. Normal right ventricular systolic function. Est imated right ventricular systolic pressure 40 mmHg (systolic blood pressure 132 mmHg). ATRI A: Normal left atrial size by visual estimate. Normal right atrial size by visual estim ate. CARDIAC VALVES: Trileaflet aortic valve. Thickened aortic valve. No aortic valve regurgitation. Thickened mitral valve. Calcified mitral annulus. Trivial mitral valve reg urgitation. Normal tricuspid valve. Trivial tricuspid valve regurgitation. OTHER ECH O FINDINGS: Normal inferior vena cava size with normal inspiratory collapse (>50%). No i ntracardiac mass or thrombus, but the left atrial appendage cannot be visualized adequatel y with transthoracic echo to exclude thrombus in this location. No pericardial effusion. For the complete report, see the [employer] Documents. Erica Bautista APRN C.N.P., M.S.N. CV ECHO PROCED URES documented in this encounter Visit Diagnoses Diagnosis Pneumothorax Unspecified Hypertension Essential Primary Atherosclerotic Heart Disease [place] Cor onary Artery With Other Forms Angina Pectoris (Stable Angina/Angina Of Exertion) (HCC) Diabetes Mellitus Type 2 Hyperglycemia ( HCC) Failure Heart (HCC) documented in this encounter Additional Health Concerns Infection Onset Date Last Indicated Resolved Time COVID19 01/26/2021 01/26/2021 02/15/2021 4:55 AM CDT documented as of this encounter Care Teams Medical Science Liaison Relationship Specialty Start Date End Date None Reported, Pcp PCP - General Family Medicine 01/25/2102/21 documented as of this encounter
--- OUTSIDE RECORDS SUMMARY | 2022-04-02 01:27 | XMS_ITS | Encounter Summary ---
:1965 Author Organization [facility] Address [address] [place] [address] Care Team Providers Name Role Phone None Reported, Pcp Primary Care Provider Unavailable Reason for Referral Outpatient (Routine) - Closed Specialty Diagnoses / Procedures Referred By Contact Refer red To Contact Cardiovascular Disease Osman Wesley M .D. [facility] [address] [place] [phone] Referral ID Status Reason Start Date Expiration Date Visits Requ ested Visits Authorized [id number] Closed 02/14/2021 02/14/2022 [address] Wesley utpatient (Routine) - Closed Specialty Diagnoses / Procedures Referred By Contact Refer red To Contact Diagnoses Failure Heart (HCC) Osman Wesley M.D. [facility] Procedures Echo Transthoracic (TTE) [address] [place] [phone] Referral ID Status Reason Start Date Expiration Date Visits Requ ested Visits Authorized [id number] Closed 02/09/2021 02/09/2022 1 1 utpatient (Routine) - Closed Specialty Diagnoses / Procedures Referred By Contact Refer red To Contact Cardiovascular Disease Osman Wesley M .D. [facility] [address] [place] [address] Referral ID Status Reason Start Date Expiration Date Visits Requ ested Visits Authorized [id number] Closed 02/09/2021 02/09/2022 1 1 Scheduling Instructions 3 month follow up after ECHO in resident clinic RI/CAT/PET Scan (Routine) - Closed Specialty Diagnoses / Procedures Referred By Contact Refer red To Contact Radiology Diagnoses Failure Heart ([facility]) Osman Wesley M.D. [facility] Procedures MR Cardiac without and with IV Contrast [address] [place] [address] Referral ID Status Reason Start Date Expiration Date Visits Requ ested Visits Authorized [id number] Closed 02/09/2021 02/09/2022 1 1 Reason for Visit Outpatient (Routine) - Closed Specialty Diagnoses / Procedures Referred By Referred To Contact Contact Cardiovascular Diseases / Diagnoses Diabetes Mellitus Type 2 Hyperglycemia ([facility]) Dyspnea Multifactorial Effusion Pleural [facility] Cardiovascular Disease Zahraa Nieves M.D. [address] [place] [address] Referral ID Status Reason Start Date Expiration Date Visits Requ ested Visits Authorized [id number] Closed 01/27/2021 01/27/2022 1 1 Encounter Details Date Type Department Care Team Description 02/09/2021 Comprehensive Visit Department of [facility] Zahraa Lopez M.D. [address] [place] [address] Atherosclerotic Heart Disease [place] Cor onary Artery With Other Forms Angina Pectoris (Stable Angina/Angina Of Exertion) ([facility]) (Primary Dx); Cardiovascular Kimi Fournier M.D. [address] [place] [phone] Diabetes Mellitus Type 2 Hyperglycemia ( HCC); Medicine in Dyspnea Multifa ctorial; [place], [place] Effusion Pleural; [address] [facility] Failure Heart ([facility]) [place] [address] Social History Tobacco Use Types [...] or relatives? How often do you attend islam or More than 4 times per year 02/09/2021 yarsani services? Do you belong to any clubs or Yes 02/09/2021 organizations such as islam groups, unions, fraternal or athletic groups, or [...] documented as of this encounter Consult Notes Kimi Fournier M.D. - 02/09/2021 3:00 PM CDT CARDIOLOGY OUTPATIENT CONSULT NOTE Supervising Provider: Dr. Wesley CC: CAD, Heart failure HPI: Mason Fairbanks is a 55 y.o. male presenting for evaluation of CAD and post- hospital follow-up. Hehas a hx of STEMI in 12/2019 s/p PCI to LAD, type 2 diabetes mellitus, hypertension, hyperlipidemia, recent COVID-19 infection, and a strong family history of early coronary disease. This patient had a hospitalization in November of 2020 for respiratory arrest and chest pain requiringMICU admission. He presented to the ED already intubated. On initial presentation he had a chest tube placed for concern due to pneumothorax but this was inadvertently placed into the lung parenchyma. This was subsequently replaced and the patient continue on aggressive diuresis for his respiratory symptoms and did require brief vasopressor use in the ICU. His troponins were elevated on presentation 60-->140-->190. He was transferred to the pulmonology service after he was stabilized. There hecompleted a 5 day course of antibiotics for community-acquired pneumonia. Echocardiogram obtained during his hospital stay showed an EF of approximately 44% with regional wall motion abnormalities in the anterior septal regions. Review of his outside records show that he had an EF of approximately 50-55% in June of 2020 (after his prior STEMI but prior to his presentation to the hospital). Cardiology was consulted and he underwent coronary angiography which showed no new significant occlusions and no additional stent was placed. His cardiac medication regimen was further up titrated for optimal control and he was recommended for follow-up with the general cardiology clinic. Please see the well summarized discharge summary for from Dr. Powers on 12/05/20 for additional details. It appears that he had initially returned back to [place] after his hospital stay in [place]. However he developed fevers and other systemic symptoms after returning back to [place] and was diagnosed with COVID-19 (his COVID-19 testing was negative while he was hospitalized here at [facility]). He underwent monoclonal antibody infusion and repeat CT of the chest obtained back in [place] showed a worsening left-sided pleural effusion. Given his worsening symptoms he returned back to [facility] and presented to the ED at which time he was not admitted but his outpatient appointments were expedited for closer evaluation. Repeat CT obtained here showed similar findings of a large left- sided pleural effusion and he underwent thoracentesis with approximately 725cc of fluid removed but states he overall feels about the same as before. He avoids exertion because he is afraid of inducing shortness of breath.When we spoke, he reports not having done any cardiac rehab after his heart attack back in [place]. He reports significant functional decline and concerns regarding further exertion. He describes hisshortness of breath symptoms as an attack where he feels that he can't breathe. He will have an acute coughing episode and after this his breathing returns to normal. He continues to endorse burning symptoms in the left side of his chest. He was started on gabapentinfor management of neuropathic pain by pulmonology and reports that his symptoms have been progressively improving since . He does notice it mostly with exertion and also at rest. Patient climbs up 25-20 steps to bed and get winded at the top. He has no trouble walking around [facility]. He avoids laying flat as he is afraid of shortness of breath but denies any PND. She notices occasional lower extremity edema and is closely watching his fluid intake. He notes that his memory issues have been significantly worsening and he does not feel motivated to do any of the activities he has done previously. I spoke with his on the phone as well and she reports that he is often getting winded much more quicker than usual and reports that he has had difficulty with sexual activity as well. He has recently discontinued his Plavix as he has completed 1 year of treatment after his stent placement. He is continuing on his aspirin, atorvastatin and currently on losartan 100 mg daily. His laboratory evaluation shows potassium of 5.1 with stable kidney function and recovering anemia with hemoglobin of 13.1. He does have mild elevation of platelets and mild leukocytosis likely secondary to hispleural effusion. His BNP continues to be elevated at 15 15 and his cholesterol panel shows that he is well controlled on current statin regimen. His hemoglobin A1c is 6.4% on his current diabetes medications. His echocardiogram shows a moderate to severely enlarged LV chamber with ejection fraction 39%-45% with regional wall motion abnormalities along the anterior wall and the apex. He has elevated RVSP of 40 with normal RV systolic function. His EKG shows evidence of prior anterior infarct. ROS: All pertinent ROS as noted in HPI. PMH: Past Medical History: Diagnosis Date ??? Diabetes Mellitus NOS PSH: Past Surgical History: Procedure Laterality Date ??? CATH ANGIOGRAM N/A 12/02/2020 Procedure: Coronary Angiography; Surgeon: Raphael Holman M.B., B.Ch.; [facility] CCL ??? OTHER CONVERTED SHX (SEE COMMENT) 12/31/2002 >Esophagogastroduodenoscopy with Biopsies Medications: Current Outpatient Medications: ??? acetaminophen (TYLENOL) 500 [...] control., Disp: 1 each, Rfl: 0 ??? gabapentin (NEURONTIN) 300 mg capsule, Take 1 capsule (300 mg total) by mouth at bedtime., Disp:30 capsule, Rfl: 0 ??? lancets, 2 each daily., Disp: 100 each, Rfl: 1 ??? losartan (COZAAR) 100 mg tablet, Take 1 tablet (100 mg total) by mouth daily., Disp: 30 tablet, Rfl: 0 ??? metFORMIN (GLUCOPHAGE) 500 mg tablet, Take 1 tablet (500 mg total) by mouth as directed. 1 tab AM x 1 week then increase to 1 tab in AM and PM x1 week, increase to 2 tabs in AM and 1 tab in PM for 1 week then increase to 2 tabs twice daily., Disp: 360 tablet, Rfl: 4 ??? metoprolol succinate (TOPROL-XL) 100 mg 24 hr tablet, Take 1 tablet (100 mg total) by mouth daily. Do not crush or chew., Disp: 60 tablet, Rfl: 1 ??? multivitamin tablet, Take 1 tablet by mouth daily. Diabetic Complete Multivitamin, Disp: , Rfl: ??? pantoprazole (PROTONIX) 40 mg EC tablet, Take 1 tablet (40 mg total) by mouth every morning before breakfast., Disp: 30 tablet, Rfl: 0 ??? 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 male in no acute distress Skin: no visible rashes, or bruising HEENT: Normocephalic, anicteric sclera, moist oral mucous membranes Cardiovascular: regular rate and rhythm, no murmurs, no lower extremity edema, 2+ radial pulses Lung: clear to auscultation bilaterally, no wheezes or crackles, no increased work of breathing Abdomen: soft, non-tender, non-distended Neuro: Alert and appropriately responding to questions, No facial droop, clear speech, spontaneouslymoving upper and lower extremities Psych: appropriate mood and affect DIAGNOSTIC: Final Impressions 1. Moderate-severely enlarged left ventricular chamber size [...] Side by side comparison of images performed. ASSESSMENT & PLAN: Mason Fairbanks is a 55 y.o. male presenting for post hospital follow-up for respiratory arrest inthe setting of CAD status post STEMI (12/2019), heart failure with ejection fraction of 39-45%. On evaluation today, he continues to report a burning left-sided chest pain that is likely consistent withhis history of chest tube placement. Reassuringly, this pain is improving and does not suggestive ofanginal symptoms as it is occurring with rest and exertion. He does note significant functional decline and shortness of breath however reports not having done a cardiac rehabilitation at this time. Heis also endorsing lower extremity edema and his imaging is notable for a left-sided pleural effusion. He has undergone pleural fluid drainage under the care of pulmonology has not noted significant improvement. On laboratory evaluation, he continues to have an elevated BNP which is suggestive of ischemic heartfailure when evaluated in conjunction with his echo findings. He is currently on a well designed cardiac medication regimen aspirin 81 mg, metoprolol XL 100 mg daily, losartan 100 mg daily, and atorvastatin 40 mg daily. His blood pressure in clinic today is 131/78 which is close to goal but could be better controlled given his reduced ejection fraction. Given his shortness of breath symptoms and intermittent lower extremity edema he may benefit from initiation of low-dose of Lasix rather than uptitration of his current ARB. We will recheck his BMP in approximately 3-4 weeks to ensure his kidney function electrolytes are well controlled. # coronary artery disease status post STEMI and stenting of mid LAD (12/2019) # Type II NSTEMI in 11/2020 during hospitalization for respiratory arrest # heart failure with reduced ejection fraction (EF 39-45%), likely ischemic secondary to STEMI Recommendations: 1. Given persistent reduction in ejection fraction and concern for regional wall motion abnormalities consistent with prior STEMI, we will obtain cardiac MRI to evaluate extent of cardiac scarring which could be contributing to his reduced ejection fraction 2. Start low-dose Lasix 20 mg daily for diuresis 3. Continue aspirin 81 mg, metoprolol XL 100 mg daily, losartan 100 mg daily, and atorvastatin 40 mgdaily. 4. Recommend repeat BMP in 3-4 weeks to to rule out worsening renal function or electrolyte abnormality 5. Recommend 3 month follow-up with CV clinic with repeat echo to monitor ejection fraction 6. Cardiac rehabilitation consultation placed to help patient with improving functional status in the setting of STEMI and heart failure Patient was seen, examined, and discussed with Dr. Wesley. We explained diagnosis and treatment plan. Patient expressed understanding of the content. Kimi Fournier MD Resident Physician, PGY-2 Internal Medicine Pager: [phone] ADDENDUM 02/14/21 8:00AM: Cardiac MRI shows significant scar tissue with estimated EF of 31% and generalized LV hypokinesis. If his left ventricle function does not improve significantly at his anticipated echocardiogram in April 2021, he will likely need a pacemaker. I have ordered a repeat visit with Dr. Wesley in 2-3 weeks to re-evaluate patient's symptoms and discuss whether he might need imaging sooner than April 2021. documented in this encounter Miscellaneous Notes Addendum Note - Kimi Fournier M.D. - 02/09/2021 3:00 PM CDT Addended by: KIMI FOURNIER on: 02/14/2021 08:05 AM Modules accepted: Orders documented in this encounter Plan of Treatment Scheduled Referrals Name Type Priority Associated Order Schedule Diagnoses Cardiovascular Disease Outpatient Referral Routine Expected: office visit (clinic) 2021, Expires: 02/10/2024 Cardiovascular Disease Outpatient Referral Routine Expected: office visit (clinic) 2020 (Approximate), Expires: 02/15/2024 documented as of this encounter Results (TTE) 2D LIMITED WITH COLOR , DOPPLER AND CONTRAST (05/15/2021 1:20 PM EQUIPMENT SERVICE ENGINEER) P athologist Signature Ejection 42 MC CV [...] / / Volume Laterality 05/15/2021 12:18 PM EQUIPMENT SERVICE ENGINEER Impressions 05/15/2021 8:25 PM EQUIPMENT SERVICE ENGINEER Echocardiogram performed per left ventricular function protocol. [...] agent administered per Echocardiography Contrast Administration Protocol Refer ce Document [id number]. Patient met an inclusion criterion and did not have contraindicat ions in screening sections. For the complete report, see the [employer] Documents. Narrative 05/15/2021 8:25 PM EQUIPMENT SERVICE ENGINEER For the complete report, see the [employer] Documents. Final Impressions 1. Moderately enlarged left [...] original. For the complete report, see the [employer] Documents. Final Impressions 1. Moderately enlarged left [...] Echocardiography Contrast Administration Protocol Referen ce Document [id number]. Patient met an inclusion criterion and did not have contraindicat ions in screening sections. For the complete report, see the [employer] Documents. Osman Wesley M.D. CV ECHO PROCEDURES MR Cardiac without and with IV Contrast [...] encounter Visit Diagnoses Diagnosis Atherosclerotic Heart Disease [place] Cor onary Artery With Other Forms Angina Pectoris (Stable Angina/Angina Of Exertion) (HCC) - Primary Diabetes Mellitus Type 2 Hyperglycemia ( HCC) Dyspnea Multifactorial Effusion Pleural Failure Heart (HCC) Failure Heart (HCC) Failure Heart (HCC) documented in this encounter Additional Health Concerns Infection Onset Date Last Indicated Resolved Time COVID19 01/26/2021 01/26/2021 02/15/2021 4:55 AM CDT documented as of this encounter Care Teams Supervisor Painting Relationship Specialty Start Date End Date None Reported, Pcp PCP - General Family Medicine 01/25/2102/21 documented as of this encounter
--- OUTSIDE RECORDS SUMMARY | 2022-04-02 01:27 | XMS_ITS | Encounter Summary ---
:1965 Author Organization [facility] Address [address] [place] [address] Care Team Providers Name Role Phone None Reported, Pcp Primary Care Provider Unavailable Encounter Details Date Type Department Care Team Description 02/07/2021 Hospital Encounter Department of [facility] Pleural Laboratory Medicine Zahraa Nieves M.D. and Pathology, [address] [place] [address] in [place], [place] [address] [place] [address] [place], [place] (Work) [phone] Social History Tobacco Use Types Packs/Day Years [...] or relatives? How often do you attend judaism or More than 4 times per year 02/09/2021 baptism services? Do you belong to any clubs or Yes 02/09/2021 organizations such as judaism groups, unions, fraternal or athletic groups, or [...] or slept in a retirement (including now)? Sex Assigned at Date Recorded [...] diagnostic USE DIRECTED TWO 100 each 1 08/08/2020 strips TIMES A DAY blood-glucose meter Test [...] Procedure Name Priority Date/Time Associated Comments Diagnosis PROTEIN, TOTAL, S/P Routine 02/07/2021 12:42 Effusion Pleural Results for this PM CDT procedure are i n the results section. LACTATE DEHYDROGENASE Routine 02/07/2021 12:42 Effusion Pleura l Results for this (LD), S PM CDT procedure are i n the results section. documented in this encounter Results Protein, Total (02/07/2021 12:42 PM CDT) P athologist Signature Protein, Total, 6.9 6.3 - 7.9 02/07/2021 DTL S g/dL 1:54 PM CDT Specimen Anatomical Collection Method Collection Time Receive d Time (Source) Location / / Volume Laterality Blood (Blood, 02/07/2021 12:42 02/07/2021 1:35 Venous) PM CDT PM CDT Zahraa Lizbeth Camacho M.D. LAB BLOOD ADD-ON Performing Organization Address City/[facility] Phon e Number [facility] - [address] LD (Lactate Dehydrogenase) (02/07/2021 12:42 PM CDT) Analysis Performed At Patho logist Time Signature Lactate 181 122 - 222 02/07/2021 DTL Dehydrogenase U/L 1:54 PM CDT (LD), S Specimen Anatomical Collection Method Collection Time Receive d Time (Source) Location / / Volume Laterality Blood (Blood, 02/07/2021 12:42 02/07/2021 1:35 Venous) PM CDT PM CDT Zahraafredis Camacho M.D. LAB BLOOD NON ADD-ON Performing Organization Address City/[facility] Phon e Number [facility] - [id number] [place] [address] documented in this encounter Visit Diagnoses Diagnosis Effusion Pleural documented in this encounter Additional Health Concerns Infection Onset Date Last Indicated Resolved Time COVID19 01/26/2021 01/26/2021 02/15/2021 4:55 AM CDT documented as of this encounter Care Teams Buffing Line Set Up Worker Relationship Specialty Start Date End Date None Reported, Pcp PCP - General Family Medicine 01/25/2102/21 documented as of this encounter
--- OUTSIDE RECORDS SUMMARY | 2022-04-02 01:27 | XMS_ITS | Encounter Summary ---
:1965 Author Organization [facility] Address [address] [place] [address] Care Team Providers Name Role Phone None Reported, Pcp Primary Care Provider Unavailable Reason for Visit Reason Comments Cardiac rehab referral Encounter Details Date Type Department Care Team Description 02/10/2021 Clinical Department of [place], Cardiac rehab Communication Cardiovascular Anat Bright, referral Medicine in [place], [place] [address] [facility] [address] [place] [phone] Social History Tobacco Use Types Packs/Day Years [...] More than 4 times per year 02/09/2021 restorationism services? Do you belong to any clubs [...] this encounter Miscellaneous Notes Telephone Encounter - Anat Fay RCEP - 02/17/2021 11:11 AM CDT Phone call made to patient to discuss a referral to cardiac rehab. Magdi states he would like to holdoff on cardiac rehab at this time as he will continue traveling back and forth from [place] to [place] every few weeks. When he establishes a residence in [place], he plans to reach out to his care team for a referral to a local cardiac rehab program. All questions were answered to the best of my ability. Telephone Encounter - Anat Fay RCEP - 02/10/2021 9:47 AM CDT Phone call made to patient to discuss a cardiac rehab referral. Patient reports he is in the processof moving to [place] from [place] and continuing to work with the pulmonary department here at [facility] to discuss ongoing workup. Cardiac rehab was explained to the patient and it is something he is interested in completing. He requests we contact him again in 1 week to discuss a referral location, as he may know more about a living situation in [place] that time. All other questions and concerns were answered to the best of my ability. documented in this encounter Plan of Treatment Not on filedocumented as of this encounter Visit Diagnoses Not on filedocumented in this encounter Additional Health Concerns Infection Onset Date Last Indicated Resolved Time COVID19 01/26/2021 01/26/2021 02/15/2021 4:55 AM CDT documented as of this encounter Care Teams Custom Protection Officer Relationship Specialty Start Date End Date None Reported, Pcp PCP - General Family Medicine 01/25/2102/21 documented as of this encounter
--- OUTSIDE RECORDS SUMMARY | 2022-04-02 01:27 | XMS_ITS | Encounter Summary ---
:1965 Author Organization [facility] Address [address] [place] [address] Care Team Providers Name Role Phone Elsewhere, Pcp Primary Care Provider Unavailable Reason for Referral Outpatient (Routine) - Closed Specialty Diagnoses / Procedures Referred By Contact Refer red To Contact Cardiovascular Disease Osman Wesley M .D. [facility] [address] [place] [address] Referral ID Status Reason Start Date Expiration Date Visits Requ ested Visits Authorized [id number] Closed 02/23/2021 02/23/2022 1 1 utpatient (Routine) - Closed Specialty Diagnoses / Procedures Referred By Contact Refer red To Contact Diagnoses Atherosclerotic Heart Disease Platinum Coronary Artery With Other Forms Angina Pectoris (Stable Angina/Angina Of Exertion) (HCC) Osman Wesley M.D. [facility] Procedures ECG Heart Rhythm Monitor (Holter) [address] [place] [address] Referral ID Status Reason Start Date Expiration Date Visits Requ ested Visits Authorized [id number] Closed 02/23/2021 02/23/2022 1 1 Reason for Visit Appointment Request (Routine) - Closed Specialty Diagnoses / Procedures Referred By Contact Refer red To Contact Cardiovascular Disease Referral ID Status Reason Start Date Expiration Date Visits Requ ested Visits Authorized [id number] Closed 02/20/2021 02/20/2022 1 1 Encounter Details Date Type Department Care Team Description 02/23/2021 Office Visit Department of Israel Hayden c Heart Disease Platinum Coronary Artery With Other Forms Angina Pectoris (Stable Angina/Angina Of Exertion) ([facility]) (Primary Dx); Cardiovascular Medicine Sai Bright M.D. 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 How often do you attend confucianism or More than 4 times per year 02/09/2021 druze services? Do you belong to any clubs or Yes 02/09/2021 organizations such as confucianism groups, unions, fraternal or athletic groups, or [...] documented as of this encounter Consult Notes Sai Hayden M.D. - 02/23/2021 11:00 AM CDT SUBJECTIVE Referring Provider: No ref. provider found Reason for Consultation: Coronary artery disease, heart failure with reduced ejection fraction CHIEF COMPLAINT/REASON FOR CONSULT No chief complaint on file. HISTORY OF PRESENT ILLNESS Mr. Mason Fairbanks is a very pleasant 55 y.o. male who presents to [facility] for follow up of coronary artery disease and heart failure with reduced ejection fraction (31% per cardiac MRI on 02/10) secondary to ischemic cardiomyopathy. He does endorse exertional dyspnea that slightly limits normal activity. He is able to function at home. However, if he were to walk 2 blocks, he would become winded. He feels short of breath when lying flat. He complains of a burning sensation that has been present in his chest all the time since his hospitalization in November. He denies exertional chest pain. He admits that he is afraid of exertion and has not done much to have a good understanding of his limitations. He occasionally has episodes of lightheadedness and losing his color that last a few seconds and then self-resolve. He denies anyother complaints including fevers, chills, new or worsening cough, or lower extremity edema. He has been tolerating his medications well. He did endorse diarrhea for awhile after starting medications, which his primary care physician has attributed to the metformin. He was referred to cardiac rehab 2 weeks ago, but has not started this because he is in between [place] and [place]. He understands the importance of cardiac rehab. He underwent cardiac MRI on 02/10 which showed significant thinning and hypokinesis of the mid-ventricular anterior, anteroseptal, and anterolateral wall, and the apical anterior wall, septum, and lateral wall (LAD territory). The amount of scar tissue is > 50% of the myocardial wall thickness. Markedly reduced ejection fraction of 31% (39% on echo 3 days prior). Cardiac History Previous cardiac history includes history of STEMI 1 year ago status post PCI to LAD, heart failure with reduced ejection fraction Cardiac Medications ?? Furosemide 20 mg daily ?? Atorvastatin 80 mg daily ?? Metoprolol succinate 100 mg daily ?? Losartan 100 mg daily ?? Aspirin 81 mg daily REVIEW OF SYSTEMS Pertinent items are noted in HPI; all other review of systems was negative. The following portions of the patient's history were reviewed and updated as appropriate: surgical history and problem list. OBJECTIVE There were no vitals filed for this visit. BP Readings from Last 3 Encounters: 02/06/21 138/79 01/27/21 146/87 01/25/21 143/82 PHYSICAL EXAMINATION General appearance: alert and appears stated age Neck: no adenopathy, no JVD, supple, symmetrical, trachea midline and thyroid not enlarged, symmetric, no tenderness/mass/nodules Lungs: diminished breath sounds in the left lower lung field and otherwise clear to auscultation Chest wall: no tenderness Heart: regular rate and rhythm, S1, S2 normal, no murmur, click, rub or gallop Extremities: extremities normal, warm and well perfused Skin: Skin color, texture, turgor normal. No rashes or lesions. Neurologic: Grossly normal and Alert and oriented X 3 DIAGNOSTICS I have reviewed the patient's current laboratory, imaging, and other diagnostic studies. Pertinent laboratory studies have been reviewed and are notable for: Lab Results Component Value Date NA 143 02/09/2021 NA 140 01/25/2021 NA 141 01/25/2021 KSERUM 5.1 02/09/2021 KBLOOD 3.8 01/25/2021 KPLASMA 4.2 01/25/2021 CL 105 02/09/2021 CL 103 01/25/2021 BUN 10 02/09/2021 BUN 13 01/25/2021 CREATININE 1.08 02/09/2021 CREATININE 0.94 01/25/2021 GLUCOSE 93 02/09/2021 GLUCOSE 138 01/25/2021 GLUCOSEPOC 136 01/25/2021 CALCIUM 9.6 02/09/2021 CALCIUM 9.1 01/25/2021 Lab Results Component Value Date WBC 12.4 (H) 02/09/2021 HGB 13.1 (L) 02/09/2021 HCT 40.8 02/09/2021 HCT 35.0 (L) 01/25/2021 MCV 86.4 02/09/2021 PLT 429 (H) 02/09/2021 Lab Results Component Value Date CHOL 83 02/09/2021 TRIG 66 02/09/2021 HDL 39 (L) 02/09/2021 Pertinent imaging studies have been reviewed and are notable for: ECG: normal sinus rhythm, no blocks or conduction defects Echocardiogram: abnormal and reviewed by myself ?? Left ventricular ejection fraction 39% ?? Apical and mid anterior akinesis ?? Right ventricular systolic pressure 40 mmHg Cardiac Catheterization: Yes - November 2020 ?? Distal circumflex 50% obstructed by a discrete lesion ?? Moderate coronary artery atherosclerosis without obstructive disease Cardiac MRI (February 10) ?? Significant thinning and hypokinesis of the mid-ventricular anterior, anteroseptal, and anterolateral wall, and the apical anterior wall, septum, and lateral wall (LAD territory). The amount of scartissue is > 50% of the myocardial wall thickness. Markedly reduced ejection fraction of 31%. Results for orders placed during the hospital encounter of 01/29/21 CT Chest with IV Contrast Narrative EXAM: CT CHEST WITH IV CONTRAST COMPARISON: [facility] examination from 11/28/2020. FINDINGS: In the interval from the prior study of 11/28/2020, a moderate to large left pleural effusion has increased in size. The previously identified left pneumothorax has resolved. Increasing opacity within the lower lungs, especially within the left lower lobe likely represents compressive atelectasis. No definite pleural thickening or pleural enhancement. No internal septations are identified. The masslike focus of consolidation within the left perihilar region has resolved. Interval removal of left pigtail pleural drain, which had an intraparenchymal course. Groundglass and consolidative opacity within the left upper lobe, adjacent to the chest tube, has resolved. Interval resolution of prior small right pleural effusion and clearing of associated right basilar consolidation. Mild paraseptal emphysema, better demonstrated within the right apex. Mild bronchial wall thickening. Multiple subcentimeter mediastinal and hilar lymph nodes are stable in appearance from prior study. Aortic and coronary artery vascular calcification. Coronary artery stenting. Cholelithiasis. Negative adrenal glands. Mild gynecomastia. A small amount of density within the lateral left chest wall (series 6, image 94) corresponds to a small focus of soft tissue density and gas on the study of 11/28/2020. This may relate to scarring within a site of prior chest tube placement. Minor degenerative changes thoracic spine and sternomanubrial joint. Impression Interval enlargement of a now moderate to large left pleural effusion. There is no definite pleural enhancement or thickening. No internal septations are seen. There is increasing presumed compressive atelectasis within the left lower lobe. Interval clearing of small right pleural effusion. Interval clearing of a focus of masslike consolidation within the left perihilar region. Interval removal of left chest tube with clearing of probable parenchymal hemorrhage. Results for orders placed during the hospital encounter of 11/28/20 CT Chest without IV Contrast Narrative EXAM: CT CHEST WITHOUT IV CONTRAST COMPARISON: Chest radiograph 11/28/2020. FINDINGS: Moderate left anterior pneumothorax. Pigtail tube courses within the lung parenchyma with tip in the left upper lobe, with surrounding opacity which may represent hemorrhage. Additional focal areas of consolidation in the left perihilar region were present on chest x-ray performed prior to placement of the chest tube suggesting this is not related to hemorrhage from intraparenchymal placement of the chest tube. Differential includes infection versus alveolar edema. Parenchymal hemorrhage remains within the differential however is thought to be less. Small bilateral pleural effusions with adjacent atelectasis. Diffuse interlobular septal thickening suggestive of pulmonary edema. Bronchial thickening. Normal cardiac size. ET tube with tip in the mid trachea. Coronary stent. No displaced rib fractures. Impression 1. Left pneumothorax. 2. Pigtail tube with intraparenchymal course and tip in the left upper lung. Repositioning recommended. ASSESSMENT / PLAN # Atherosclerotic Heart Disease Platinum Coronary Artery With Other Forms Angina Pectoris (Stable Angina/Angina Of Exertion) ([facility]) # History of ST Elevation Myocardial Infarction Involving Left Anterior Descending Coronary Artery ([facility]) (December 2019) # Congestive Heart Failure Ejection Fraction Less Than 40 Percent ([facility]) (NYHA Class 2) # Cardiomyopathy Ischemic Mr. Fairbanks is a 55 year old male with heart failure with reduced ejection fraction (31%) secondary toischemic cardiomyopathy (NYHA Class 2). He is on goal directed medical therapy, but has persistent symptoms and could benefit from the addition of a mineralocorticoid receptor antagonist. Given that his potassium was 5.1 on last BMP, will recheck potassium today. If potassium remains elevated, will hold off on spironolactone initiation. In addition, Mr. Fairbanks and I discussed cardiac rehab in detail and I strongly recommended that he pursuethis. 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 Dr. Wesley and I reviewed Mr. Fairbanks's heart cath from November in detail and identified a lesion in the circumflex which as documented in cath report, appears approximately 50% obstructed. We would recommend repeating coronary angiography to further evaluate the hemodynamic significance of this lesion with iFR or ultrasound to measure its hemodynamic effects. If this area demonstrates significant stenosis and is amenable to intervention, we could restore blood flow which may improve LV function and preclude the need to pursue ICD placement. However, if this area is not amenable to intervention, we would recommend proceeding with ICD placement. Mr. Fairbanks agrees with this plan. Summary of plan: ?? Repeat coronary angiography with iFR and/or ultrasound to evaluate the degree of stenosis ?? If there is no stenosis identified that is amenable to intervention, would proceed with ICD placement given EF < 35% despite maximum medical therapy for > 3 months ?? Continue losartan 100 mg daily and metoprolol succinate 100 mg daily ?? Add spironolactone 25 mg daily pending potassium recheck ?? Continue furosemide 20 mg daily ?? Recommended pursuing cardiac rehab, as recently discussed ?? 24 hour Holter monitor to evaluate for arrhythmias This case was supervised by Dr. Wesley. Michael Hayden MD Internal Medicine, PGY-2 Osman Wesley M.D. - 02/23/2021 11:00 AM CDT Supervisory note. I met with the patient earlier with Dr. Fournier and addressed his evidence of an ischemic cardiomyopathy with recent (November) angiography which showed no opportunity to intervene to try to improve his LV function. He has been on a beta-sandeep and high doses of losartan and his ejection fraction dropped further to 31 on the basis of a cardiac MR measurements. I have reviewed the coronary angiogram and remain concerned about the possibility of significant left circumflex distal disease that might be provide an opportunity for to improve blood flow to a large distribution area of thedistal left circumflex. The visual assessment does not suggest critical stenosis but I think we should do and IFR and/or ultrasound examination if possible. The cardiac MR shows extensive scar of the anterior wall but I would be inclined to intervene if there is any ischemia in the distribution of hisLAD as well given the profound decline in his LV function. I will talk with my interventional colleagues and we have set him up for catheterization tomorrow with Dr. Rizo documented in this encounter Plan of Treatment Scheduled Referrals Name Type Priority Associated Order Schedule Diagnoses Cardiovascular Disease Outpatient Referral Routine Expected: nurse visit (clinic) 021 (Approximate), Expires: 02/24/2024 documented as of this encounter Results Basic Metabolic Panel (05/15/2021 1:43 PM WATER PLANT OPERATOR) P athologist Signature Potassium, S 4.2 3.6 - 5.2 05/15/2021 DTL mmol/L 2:47 PM WATER PLANT OPERATOR Sodium, S 144 135 - 145 05/15/2021 DTL mmol/L 2:47 PM WATER PLANT OPERATOR Chloride, S 104 98 - 107 05/15/2021 DTL mmol/L 2:47 PM WATER PLANT OPERATOR Bicarbonate, S 27 22 - 29 05/15/2021 DTL mmol/L 2:47 PM WATER PLANT OPERATOR Anion Gap 13 7 - 15 05/15/2021 DTL 2:47 PM WATER PLANT OPERATOR BUN (Blood Urea 11 8 - 24 05/15/2021 DTL Nitrogen), S mg/dL 2:47 PM WATER PLANT OPERATOR Creatinine 1.10 0.74 - 05/15/2021 DTL 1.35 mg/dL 2:47 PM WATER PLANT OPERATOR eGFR-Non 75 >=60 05/15/2021 DTL Black/ mL/min/BSA 2:47 PM WATER PLANT OPERATOR Moroccan Comment: ----ADDITIONAL INFORMATION---- Estimated GFR calculated using the 2009 CKD_EPI creatinine equation. eGFR-Black/ 87 >=60 mL/min/BSA 2021 2:47 PM WATER PLANT OPERATOR DTL Comment: ----ADDITIONAL INFORMATION---- Estimated GFR calculated using the 2009 CKD_EPI creatinine equation. Calcium, Total, S 9.4 8.6 - 10.0 mg/dL 05/15/2021 2:47 PM WATER PLANT OPERATOR DTL Glucose, S 81 70 - 140 mg/dL 05/15/2021 2:47 PM WATER PLANT OPERATOR D TL Specimen Anatomical Collection Method Collection Time Receive d Time (Source) Location / / Volume Laterality Blood (Blood, 05/15/2021 1:43 PM 05/15/19 2:20 Venous) WATER PLANT OPERATOR PM WATER PLANT OPERATOR Osman Wesley M.D. LAB BLOOD ADD-ON Performing Organization Address City/State/ZIP Code Phon e Number [facility] - [address] [place], [place] [address] [facility] [place] [address] Laboratories-[facility] 200 [facility] HOLTER MONITOR - IN CLINIC DIRECTOR PRISON (02/24/2021 2:54 PM CDT) [facility] gist Method Time Signature Min Heart [...] AF Duration 0 duration INFOBIONIC MOME AF [place] 0 percent INFOBIONIC MOME Symptom Count 1 count INFOBIONIC MOME Specimen (Source) Anatomical Collection Method Collection Time Re ceived Time Location / / Volume Laterality 02/23/2021 2:44 PM CDT Narrative CECILIO DU - 02/27/2021 5:29 PM CDT 1. The [...] was 102 bpm. VPCs were seen singly. Field Associate: Harmony Reece Tysce n Procedure Note Carlos Ryder M.D., Ph.D. - 02/27/2021Fo [...] was 102 bpm. VPCs were seen singly. Field Associate: Harmony Reece Tysce n Osman Wesley M.D. CV CARDIAC SERVICES PROCEDUR ES Performing Organization Address City/State/ZIP Code Phon e Number INFOBIONIC MOME INFOBIONIC MOME NA (ABNORMAL) Troponin T, 5th Generation (02/23/2021 1:25 PM CDT) P athologist Signature Troponin T, 18 (H) <=15 ng/L 02/23/2021 DTL gen 2:34 PM CDT Specimen Anatomical Collection Method Collection Time Receive d Time (Source) Location / / Volume Laterality Blood (Blood, 02/23/2021 1:25 PM 02/24/20 2:06 Venous) CDT PM CDT Osman Wesley M.D. LAB BLOOD ADD-ON Performing Organization Address City/State/ZIP Code Phon e Number [facility] - [address] [place], [place] [address] [facility] [place] [address] [facility] 200 [facility] Basic Metabolic Panel (02/23/2021 1:25 PM CDT) [...] 02/23/2021 DTL Black/ mL/min/BSA 2:35 PM CDT Moroccan Comment: ----ADDITIONAL INFORMATION---- Estimated GFR calculated using [...] M.D. LAB BLOOD ADD-ON Performing Organization Address City/[facility] Phon e Number [facility] - [address] [place], [place] [address] [place] [address] [address] (ABNORMAL) NT-Pro B-Type Natriuretic Peptide (BNP) (02/23/2021 1:25 PM CDT) P athologist Signature NT-Pro BNP 933 (H) <=67 pg/mL 02/23/2021 DT 2:35 PM CDT Comment: NT-proBNP values less [...] M.D. LAB BLOOD ADD-ON Performing Organization Address City/[facility] Phon e Number [facility] - [address] [place], [place] [address] [place] [address] Laboratories[address] documented in this encounter Visit Diagnoses Diagnosis Atherosclerotic Heart Disease Platinum Cor onary Artery With Other Forms Angina Pectoris (Stable Angina/Angina Of Exertion) (HCC) - Primary Congestive Heart Failure Ejection Fracti on Less Than 40 Percent (HCC) ST Elevation Myocardial Infarction Invol ving Left Anterior Descending Coronary Artery (HCC) Cardiomyopathy Ischemic Atherosclerotic Heart Disease Platinum Cor onary Artery With Other Forms Angina Pectoris (Stable Angina/Angina Of Exertion) (HCC) documented in this encounter Care Teams Grapple Operator Relationship Specialty Start Date End Date Elsewhere, Pcp PCP - General 02/22/21 documented as of this encounter
--- OUTSIDE RECORDS SUMMARY | 2022-04-02 01:27 | XMS_ITS | Encounter Summary ---
:1965 Author Organization [facility] Address [address] [place] [address] Care Team Providers Name Role Phone None Reported, Pcp Primary Care Provider Unavailable Reason for Visit Reason Comments Communication Encounter Details Date Type Department Care Team Description 02/02/2021 Clinical Communication Division of [facility] Kandis Mae Internal Medicine, Phuong Hawley M.D [place], [place] [address] [place] [address] [place] [address] [place], [place] [phone] (Work) [phone] Social History Tobacco Use Types Packs/Day Years [...] or relatives? How often do you attend lutheran or More than 4 times per year 02/09/2021 moravian services? Do you belong to any clubs or Yes 02/09/2021 organizations such as lutheran groups, unions, fraternal or athletic groups, or [...] or slept in a correction (including now)? Sex Assigned at Date Recorded Male 02/09/2021 2:11 PM CDT documented as of this encounter Miscellaneous Notes Telephone Encounter - Mana Elam - 02/02/2021 9:11 AM CDT Caller: Anais (pharmacist) Callback Number: [phone] Request/Details: [facility] faxed a CMN for you to fill out and return for this patient's test strips. Please call the pharmacy with any questions. Thank you. documented in this encounter Plan of Treatment Not on filedocumented as of this encounter Visit Diagnoses Not on filedocumented in this encounter Additional Health Concerns Infection Onset Date Last Indicated Resolved Time COVID19 01/26/2021 01/26/2021 02/15/2021 4:55 AM CDT documented as of this encounter Care Teams Associate Professor Of Kinesiology Relationship Specialty Start Date End Date None Reported, Pcp PCP - General Family Medicine 01/25/2102/21 documented as of this encounter
--- OUTSIDE RECORDS SUMMARY | 2022-04-02 01:27 | XMS_ITS | Encounter Summary ---
:1965 Author Organization [facility] Address [address] [place] [address] Care Team Providers Name Role Phone None Reported, Pcp Primary Care Provider Unavailable Encounter Details Date Type Department Care Team Description 01/31/2021 Orders Only Division of Pulmonary Betty Laurent M.D. Medicine in [place], [facility] [address] [place], [place] [address] [facility] [address] [place] [address] [phone] Social History Tobacco Use Types Packs/Day Years [...] or relatives? How often do you attend yazidi or More than 4 times per year 02/09/2021 scientology services? Do you belong to any clubs or Yes 02/09/2021 organizations such as yazidi groups, unions, fraternal or athletic groups, or [...] or slept in a intermediate (including now)? Sex Assigned at Date Recorded Male 02/09/2021 2:11 PM CDT documented as of this encounter Plan of Treatment Not on filedocumented as of this encounter Visit Diagnoses Not on filedocumented in this encounter Additional Health Concerns Infection Onset Date Last Indicated Resolved Time COVID19 01/26/2021 01/26/2021 02/15/2021 4:55 AM CDT documented as of this encounter Care Teams Tc Operator Relationship Specialty Start Date End Date None Reported, Pcp PCP - General Family Medicine 01/25/2102/21 documented as of this encounter
--- OUTSIDE RECORDS SUMMARY | 2022-04-02 01:27 | XMS_ITS | Encounter Summary ---
:1965 [facility] Organization [facility] Address [address] [place] [address] Care Team Providers Name Role Phone None Reported, Pcp Primary Care Provider Unavailable Encounter Details Date Type Department Care Team Description 02/10/2021 Documentation Division of Pulmonary Greg Camacho, Medicine in [place], Zahraa Nieves M.D. [place] [address] [address] [facility] [address] [place] [phone] (Wo rk) Social History Tobacco Use Types [...] or relatives? How often do you attend christian or More than 4 times per year 02/09/2021 jain services? Do you belong to any clubs or Yes 02/09/2021 organizations such as christian groups, unions, fraternal or athletic groups, or [...] encounter Progress Notes Zahraa Rodriguez M.D. - 02/10/2021 10:57 AM CDT Called Mr. Fairbanks and we discussed the results of his thoracentesis. Per Lights criteria it is an exudate. Gram stain and culture were negative for infection, and cytology was negative for malignancy which is reassuring. Etiology of effusion is unclear, possible secondary to trauma with previous chest tubes, vs longstanding transudate in the setting of heart failure. Ordered Xray today to assess for reaccumulation, since patient feels that the fluid is building back up. Discussed with patient and and I was able to answer their questions to the best of my ability. documented in this encounter Plan of Treatment Not on filedocumented as of this encounter Results DX Chest AP or PA and Lateral 2 Views (02/23/2021 9:05 AM CDT) Anatomical Region Laterality Modality Chest, Thoracic RST LOS, Thoracic ARZ LOS, Thoracic N/A Digital Radiography FLA LOS Specimen (Source) Anatomical Collection Method Collection Time Re ceived Time Location / / Volume Laterality 02/23/2021 9:21 AM CDT Impressions 02/23/2021 9:24 AM CDT Comparison made with radiograph dated 01/25/2021. Small left-sided pleural effusion is present but has decr eased in size since the prior exam. Left basilar atelectasis has also improved. A ortic arch calcifications. Chest otherwise negative. Narrative 02/23/2021 9:24 AM CDT EXAM: ??DX CHEST AP OR PA AND LATERAL 2 VIEWS Procedure Note Davida Syed M.D. - 02/23/2021Form atting of this note might be different from the original. EXAM: DX CHEST AP OR PA AND LATERAL 2 EWS IMPRESSION: Comparison made with radiograph dated . Small left-sided pleural effusion is present but has decr eased in size since the prior exam. Left basilar atelectasis has also improved. A ortic arch calcifications. Chest otherwise negative. Zahraa Camacho M.D. IMG DIAGNOSTIC IMAGIN G PROCEDURES documented in this encounter Visit Diagnoses Diagnosis Effusion Pleural - Primary Effusion Pleural documented in this encounter Additional Health Concerns Infection Onset Date Last Indicated Resolved Time COVID19 01/26/2021 01/26/2021 02/15/2021 4:55 AM CDT documented as of this encounter Care Teams Practical Nurse Relationship Specialty Start Date End Date None Reported, Pcp PCP - General Family Medicine 01/25/2102/21 documented as of this encounter
--- OUTSIDE RECORDS SUMMARY | 2022-04-02 01:27 | XMS_ITS | Encounter Summary ---
:1965 Author Organization [facility] Address [address] [place] [address] Care Team Providers Name Role Phone None Reported, Pcp Primary Care Provider Unavailable Reason for Referral Outpatient (Routine) - Closed Specialty Diagnoses / Procedures Referred By Contact Refer red To Contact Diagnoses Effusion Pleural Zahraa Rodriguez [facility] Procedures Thoracentesis Anita Nieves [address] [place], [place] [address] Referral ID Status Reason Start Date Expiration Date Visits Requ ested Visits Authorized [id number] Closed 01/31/2021 01/31/2022 1 1 Reason for Visit Outpatient (Routine) - Closed Specialty Diagnoses / Procedures Referred By Contact Refer red To Contact Diagnoses Effusion [facility]ural [facility] Anita Nieves [place], [place] [address] Referral ID Status Reason Start Date Expiration Date Visits Requ ested Visits Authorized [id number] Closed 01/31/2021 01/31/2022 1 1 Encounter Details Date Type Department Care Team Description 02/06/2021 Hospital Encounter Division of Pulmonary Isidro Laurent , Effusion Pleural Medicine in [facility] 200 [facility] [address] [place] [phone] Social History Tobacco Use Types Packs/Day Years [...] or relatives? How often do you attend sabianist or More than 4 times per year 02/09/2021 uatsdin services? Do you belong to any clubs or Yes 02/09/2021 organizations such as sabianist groups, unions, fraternal or athletic groups, or [...] Sign Reading Time Taken Comments Blood Pressure 138/79 02/06/2021 3:03 PM CDT Pulse 75 02/06/2021 3:03 PM CDT Temperature 36.3 ??C (97.3 ??F) 02/06/2021 2:26 PM CDT Respiratory Rate 16 02/06/2021 3:03 PM CDT Oxygen Saturation 97% 02/06/2021 3:03 PM CDT Inhaled Oxygen Concentration - - Weight - - Height - - Body Mass Index - - documented in this encounter Medications at Time [...] as directed for 1 each 0 2020 [facility] diabetes control. blood-glucose meter [...] of breath. documented as of this encounter Procedure Notes Horacio Sahni M.D. - 02/06/2021 2:30 PM CDTAssociated Order(s): Thoracentesis Post-Procedure Diagnose(s): Effusion Pleural Thoracentesis Date/Time: 02/06/2021 3:10 PM Performed by: Horacio Sahni M.D. Authorized by: Isidro Laurent M.D. Care team members present 1. Isidro Laurent M.D. 2. Horacio Sahni M.D. PROCEDURE DETAILS Patient position: sitting Location: left posterior Puncture method: [id number]-[id number] catheter Number of attempts: 1 Drainage characteristics: serosanguinous Estimated amount of fluid removed (ml): 725 Ultrasound guided: yes Image saved: yes Additional procedure details: A procedural pause was completed verifying correct patient, procedure,site, positioning, and special equipment if applicable. Bedside ultrasound was used to identify suitable pleural fluid pocket. ??Ultrasound demonstrated hypoechoic large size pleural effusion. ??Site was marked. ??Lidocaine was infiltrated superficially and then advanced along the tract toward the identified pleural fluid pocket alternating aspiration and lidocaine infiltration until serosanguineous pleural fluid was aspirated. ??A total of 4 cc of lidocaine was instilled. ??The needle was removed and a 5.0 Fr [employer] catheter was advanced along the anesthetized track with persistent aspiration again,until serosanguineous pleural fluid was aspirated. ??The catheter was advanced into the pleural fluid pocket and needle was removed. ??A three-way stopcock and drainage tubing was attached to the catheter and to a vaccutainer and pleural fluid was drained. ??The procedure was stopped after approximately 725 cc of removal due to cough. ??Postprocedure ultrasound showed reduction in the effusion with small residual effusion. ??Sliding lung sign was present. ?? CONSENT Consent obtained: written PRE-PROCEDURE DETAILS Procedure purpose: diagnostic and therapeutic Indications: benign pleural effusion Site preparation: chlorhexidine SEDATION / ANESTHESIA Anesthesia method: local infiltration Local infiltrate type: lidocaine POST-PROCEDURE DETAILS Post-procedure chest x-ray performed: no Complications: no apparent complications ATTESTATION STATEMENT A resident or fellow participated in the procedure. The websphere commerce consultant was present for the critical portion of the procedure and was immediately available for the entire procedure. documented in this encounter Plan of Treatment Scheduled Orders Name Type Priority Associated Diagnoses Order S chedule Thoracentesis Procedures Routine Effusion Pleural Once for 1 Occurrences starting 2020 until 02/06/2021 documented as of this encounter Procedures Procedure Name Priority Date/Time Associated Comments Diagnosis THORACENTESIS Routine 02/06/2021 3:10 PM Effusion Pleural Resu lts for this CDT procedure are i n the results section. PROTEIN, TOTAL, BF Timed 02/06/2021 2:59 PM Res ults for this CDT procedure are i n the results section. BACTERIAL CULTURE, Timed 02/06/2021 2:59 PM Res ults for this AEROBIC + SUSC CDT procedure are in the results section. CELL COUNT AND Timed 02/06/2021 2:59 PM Results for this DIFFERENTIAL, BF CDT procedure a re in the results section. GRAM STAIN Timed 02/06/2021 2:59 PM Results f or this CDT procedure are i n the results section. LACTATE DEHYDROGENASE Timed 02/06/2021 2:59 PM Results for this (LD), BF CDT procedure are i n the results section. GLUCOSE, BODY FLUID Timed 02/06/2021 2:59 PM Re sults for this CDT procedure are i n the results section. PH, PLEURAL FLUID Routine 02/06/2021 2:52 PM Resu lts for this CDT procedure are i n the results section. documented in this encounter Results THORACENTESIS (02/06/2021 3:10 PM CDT) Narrative Horacio Sahni M.D. - 02/06/2021 3:10 PM CDT Horacio Sahni M.D. ? 02/06/2021 ??3:12 PM Thoracentesis Date/Time: 02/06/2021 3:10 PM Performed by: Horacio Sahni M.D. Authorized by: Isidro Laurent M.D. Care team members present 1. Isidro Laurent M.D. 2. Horacio Sahni M.D. PROCEDURE DETAILS Patient position: sitting Location: left posterior Puncture method: bxlp-[id number] cathete r Number of attempts: 1 Drainage characteristics: serosanguinous Estimated amount of fluid removed (ml): 725 Ultrasound guided: yes ?? Image saved: yes Additional procedure details: A procedur al pause was completed verifying correct patient, procedure, site, positi oning, and special equipment if applicable. Bedside ultrasound was used to identify suitable pleural fluid pocket. ??Ultrasound demonstrated hypoec hoic large size pleural effusion. ??Site was marked. ??Lidocaine was infil trated superficially and then advanced along the tract toward the iden tified pleural fluid pocket alternating aspiration and lidocaine inf iltration until serosanguineous pleural fluid was aspirated. ??A total o f 4 cc of lidocaine was instilled. ??The needle was removed and a 5.0 Fr Landry eh catheter was advanced along the anesthetized track with persistent aspir ation again, until serosanguineous pleural fluid was aspirated. ??The pacheco ter was advanced into the pleural fluid pocket and needle was removed. ??A three-way stopcock and drainage tubing was attached to the catheter and to a vaccutainer and pleural fluid was drained. ??The procedure was stopped after approximately 725 cc of removal due to cough. ??Postprocedure ul trasound showed reduction in the effusion with small residual effusion. ? ?Sliding lung sign was present. ?? CONSENT Consent obtained: written PRE-PROCEDURE DETAILS Procedure purpose: diagnostic and therap eutic Indications: benign pleural effusion Site preparation: chlorhexidine SEDATION / ANESTHESIA Anesthesia method: local infiltration Local infiltrate type: lidocaine POST-PROCEDURE DETAILS Post-procedure chest x-ray performed: no Complications: no apparent complications ATTESTATION STATEMENT A resident or fellow participated in the procedure. The websphere commerce consultant was present for the critical portion of the procedure and was immediately available for the entire procedure. Isidro Laurent M.D. PROCEDURE/MINOR SURGICAL ORD ERABLES Protein, Total, Body Fluid (02/06/2021 2:59 PM CDT) P athologist Signature Protein, 4.7 See Comment 02/06/2021 DTL Total, BF g/dL 4:40 PM CDT Comment: ----ADDITIONAL INFORMATION---- A pleural fluid total protein to serum t otal protein ratio >0.5 is most consistent wi th exudative effusion. A peritoneal fluid t otal protein > 2.5 g/dL in patients with a hi gh serum ascites albumin gradient can be caused b y heart failure. A peritoneal fluid total protei n > 1.0 g/dL helps to differentiate secondary fr om spontaneous bacterial peritonitis in con junction with other laboratory, imaging, and clin ical findings. All other fluids refer to www.[employer] [facility].com for further inter pretive information. This test has been modified from the learning operations specialist's instructions. Its perform ance characteristics were determined by [facility] in a manner consistent with CLIA require ments. This test has not been cleared or approv ed by the U.S. Food and Drug Administration. Fluid Type, Protein, Total Fluid, Pleural Fluid, 1 3:37 PM CDT DTL Left Specimen Anatomical Collection Method Collection Time Receive d Time (Source) Location / / Volume Laterality Fluid (Pleural 02/06/2021 2:59 PM 021 3:53 Fluid, Left) CDT PM CDT Zahraa Lizbeth Camacho M.D. LAB BODY FLUIDS AND S TOOLS ORDERABLES Performing Organization Address City/State/ZIP Code Phon e Number [facility] - [address] [place], [place] [address] [facility] [place] [address] [facility] [address] [facility] Lactate Dehydrogenase (LD), Body Fluid (02/06/2021 2:59 PM CDT) [facility] Method Time Signature Lactate 298 See Comment 02/06/2021 DTL Dehydrogenase U/L 4:40 PM CDT (LD), BF Comment: ----ADDITIONAL INFORMATION---- Pleural fluid lactate dehydrogenase (LDH ) to serum LDH ratio >0.6 are most consistent with exudative effus ions. Peritoneal fluid LDH > 220 U/L suggest s econdary rather than spontaneous bacterial peritonitis in con junction with other laboratory, imaging, and clinical findin gs. Synovial fluid lactate dehydrogenase (LD H) may be elevated greater than plasma or serum LDH due to inflamma tory causes. Values should be interpreted in conjunction with other clinical findings. All other fluids refer to [email or web address] for further interpretive information. This test has been modified from the man ufacturer's instructions. Its performance characteristics were det ermined by [facility] in a manner consistent with CLIA requirements . This test has not been cleared or approved by the U.S. Food and Drug Administration. Fluid Type, Lactate Fluid, Pleural Fluid, 02/07/20 21 3:37 PM CDT DTL Dehydrogenase Left Specimen Anatomical Collection Method Collection Time Receive d Time (Source) Location / / Volume Laterality Fluid (Pleural 02/06/2021 2:59 PM 021 3:53 Fluid, Left) CDT PM CDT Zahraafredis Camacho M.D. LAB BODY FLUIDS AND S TOOLS ORDERABLES Performing Organization Address [facility] Phon e Number [facility] - [address] [place], [place] [address] [facility] [place] [address] [facility] [address] [facility] Gram Stain (02/06/2021 2:59 PM CDT) Patholo gist Method Time Signature Gram Stain No organisms seen. 02/06/2021 DTL White blood cells, Moderate. 6:12 PM CDT Specimen Anatomical Collection Method Collection Time Receive d Time (Source) Location / / Volume Laterality Fluid (Pleural 02/06/2021 2:59 PM 021 4:16 Fluid, Left) CDT PM CDT Comment: Specimen Source Site: Fluid Narrative [facility] - 02/06/2021 6:12 PM CDT Bacterial Culture: Received Bactec anaerobic bottle Bacterial Culture: Placed in Bactec aero bic bottle Zahraa D Greg Camacho M.D. LAB MICROBIOLOGY - GE NERAL ORDERABLES Performing Organization Address [facility] Phon e Number [facility] - [address] [place], [place] [address] [facility] [place] [address] [facility] [address] [facility] Glucose, Body Fluid (02/06/2021 2:59 PM CDT) P athologist Signature Glucose, BF 123 See Comment 02/06/2021 DTL mg/dL 4:40 PM CDT Comment: ----ADDITIONAL INFORMATION---- Body fluid glucose concentrations may be decreased due to increased cellular metabolism and should be interpreted in the context of blood glucose concentrati ons and in conjunction with other laboratory and cl inical findings. Pleural, Peritoneal, and Pericardial flu id and serum glucose concentrations are similar in th e absence of infection. Synovial fluid glucose concentrations ar e similar to fasting blood glucose concentrations or approximately 50% of the non-fasting serum glucose concent ration under normal conditions. Values below this can be see n with infection. Amniotic fluid glucose <16 mg/dL is sugg estive of infection. All other fluids refer to www.[employer] [facility].com for further inter pretive information. This test has been modified from the man ufacturer's instructions. Its performance characteri stics were determined by [facility] in a manner co nsistent with CLIA requirements. This test has not been leah ared or approved by the U.S. Food and Drug Administration. Fluid Type, Glucose Fluid, Pleural Fluid, Left 02/2021 3:37 PM CDT DTL Specimen Anatomical Collection Method Collection Time Receive d Time (Source) Location / / Volume Laterality Fluid (Pleural 02/06/2021 2:59 PM 021 3:53 Fluid, Left) CDT PM CDT Zahraa Lizbeth Camacho M.D. LAB BODY FLUIDS AND S TOOLS ORDERABLES Performing Organization Address City/State/ZIP Code Phon e Number [facility] - [address] [place] [address] [place] [address] [facility] 200 [facility] Cell Count and Differential, Body Fluid (02/06/2021 2:59 PM CDT) [facility] gist Method Time Signature Fluid Type Left Pleural 02/06/2021 DHPM 4:23 PM CDT Gross Slightly 02/06/2021 DHPM Appearance bloody 4:23 PM CDT Total 3680 /mcL 02/06/2021 DHPM Nucleated 4:23 PM CDT Cells Comment: ----REFERENCE VALUE---- Synovial: <150 /mcL Peritoneal: <500 /mcL Pleural: <500 /mcL Pericardial: <500 /mcL ----ADDITIONAL INFORMATION---- This test has been modified from the man ufactjuan antonior's instructions. Its performance characteri stics were determined by [facility] in a manner co nsistent with CLIA requirements. This test has not bee n cleared or approved by the U.S. Food and Drug Admin istration. Neutrophils 2 % 02/06/2021 5:20 PM CDT DHPM Comment: ----REFERENCE VALUE---- Synovial: <25% Peritoneal: <25% Pleural: <25% Pericardial: <25% Lymphocytes 68 Synovial <75% % 02/06/2021 5:20 PM CDT DH[facility] Monocytes/Macrophages 6 Synovial <70% % 02/06/2021 5 :20 PM CDT DH[facility] Eosinophils 21 % 02/06/2021 5:20 PM CDT [facility] Comment: ----REFERENCE VALUE---- The reference range and other method performance specifications have not been established for this bodyfluid. The test result must be integrated into the clinical context for interpretation. Other Cells 3 % 02/06/2021 5:20 PM CDT [facility] Comment: ----REFERENCE VALUE---- The reference range and other method performance specifications have not been established for this bodyfluid. The test result must be integrated into the clinical context for interpretation. Other Cells Are: Mesothelial cells 02/07/2021 8:36 AM CDT [facility] Comment No blasts or malignant cells seen. 02/07 8:36 AM CDT [facility] Reviewed by: Tech 02/07/2021 8:36 AM CDT [facility] Specimen Anatomical Collection Method Collection Time Receive d Time (Source) Location / / Volume Laterality Fluid (Pleural 02/06/2021 2:59 PM 021 3:49 Fluid, Left) CDT PM CDT Zahraafredis Camacho M.D. LAB BODY FLUIDS AND S TOOLS ORDERABLES Performing Organization Address City/[facility] Phon e Number [facility] [place] [address] [place], [place] [phone] [place] [address] Bacterial Culture, Aerobic + Susc (02/06/2021 2:59 PM CDT) [facility] Method Time Signature Bacterial No growth 02/11/2021 DTL Culture, after 5 2:26 PM CDT Aerobic + Susc days of incubation. Specimen Anatomical Collection Method Collection Time Receive d Time (Source) Location / / Volume Laterality Fluid (Pleural 02/06/2021 2:59 PM 021 4:16 Fluid, Left) CDT PM CDT Comment: Specimen Source Site: Fluid Narrative [facility] - 02/11/2021 2:26 PM CDT Bacterial Culture: Received Bactec anaerobic bottle Bacterial Culture: Placed in Bactec aero bic bottle Zahraa Camacho M.D. LAB MICROBIOLOGY - NERAL ORDERABLES Performing Organization Address [facility] Phon e Number [facility] [address] [address] [facility] [place] [address] [facility] 200 [facility] pH, Pleural Fluid (02/06/2021 2:52 PM CDT) [facility] gist Method Time Signature pH, Pleural 7.38 Not Applicable 02/06/2021 [facility] Fluid pH 3:13 PM CDT Comment: Clinical guidelines suggest that in para pneumonic pleural effusions, a pH <7.2 indicate the need for tube drainage . Specimen Anatomical Collection Method Collection Time Receive d Time (Source) Location / / Volume Laterality Fluid (Pleural 02/06/2021 2:52 PM 021 3:09 Fluid, Left) CDT PM CDT Zarhaa Camacho M.D. LAB BODY FLUIDS AND S TOOLS ORDERABLES Performing Organization Address City/State/ZIP Code Phon e Number [facility] - [address] [place] [address] [facility] [place] [address] [facility] 200 [facility] documented in this encounter Visit Diagnoses Diagnosis Effusion Pleural documented in this encounter Additional Health Concerns Infection Onset Date Last Indicated Resolved Time COVID19 01/26/2021 01/26/2021 02/15/2021 4:55 AM CDT documented as of this encounter Care Teams Casing In Line Setter Relationship Specialty Start Date End Date None Reported, Pcp PCP - General Family Medicine 01/25/2102/21 documented as of this encounter
--- OUTSIDE RECORDS SUMMARY | 2022-04-02 01:27 | XMS_ITS | Encounter Summary ---
:1965 Author Organization [facility] Address [address] [place] [address] Care Team Providers Name Role Phone Elsewhere, Pcp Primary Care Provider Unavailable Encounter Details Date Type Department Care Team Description 02/23/2021 Hospital Encounter Department of [facility] Pleural Radiology, [place] Zahraa Nieves M.D. Building, in [address] [place] [address] [place] [id number] [place], [place] [phone] (Work) [phone] Social History Tobacco Use Types Packs/Day Years [...] or relatives? How often do you attend holiness or More than 4 times per year 02/09/2021 jew services? Do you belong to any clubs or Yes 02/09/2021 organizations such as holiness groups, unions, fraternal or athletic groups, or [...] 12/06/2020 stripsIndications: Diabetes Mellitus Type 2 Hyperglycemia ([facility]) blood sugar diagnostic USE DIRECTED TWO 100 each 1 08/2020 strips TIMES A DAY blood-glucose meter Test as directed for 1 each 0 2020 [facility] diabetes control. blood-glucose meter Test as directed for 1 each 0 2020 miscIndications: diabetes control. Diabetes Mellitus Type 2 Hyperglycemia ([facility]) metoprolol succinate TAKE 1 TABLET BY 60 [...] Procedure Name Priority Date/Time Associated Comments Diagnosis DX CHEST AP OR PA RAD - Routine 02/23/2021 9:05 Effusion Pleural Re sults for this AND LATERAL 2 (most inpatients AM CDT procedure are in VIEWS and all the results outpatients) section. documented in this encounter Results DX [...] ortic arch calcifications. Chest otherwise negative. Zahraa MÉNDEZ DIAGNOSTIC IMAGIN G PROCEDURES documented in this encounter Visit Diagnoses Diagnosis Effusion Pleural documented in this encounter Care Teams Mountain Bike Guide Relationship Specialty Start Date End Date Elsewhere, Pcp PCP - General 02/22/21 documented as of this encounter
--- OUTSIDE RECORDS SUMMARY | 2022-04-02 01:27 | XMS_ITS | Encounter Summary ---
:1965 Author Organization [facility] Address [address] [place] [address] Care Team Providers Name Role Phone None Reported, Pcp Primary Care Provider Unavailable Encounter Details Date Type Department Care Team Description 02/06/2021 Ancillary Procedure Department of Pulmonary and CC Medicine Social History Tobacco Use Types Packs/Day Years [...] or relatives? How often do you attend worship or More than 4 times per year 02/09/2021 samaritan services? Do you belong to any clubs or Yes 02/09/2021 organizations such as worship groups, unions, fraternal or athletic groups, or [...] Name Priority Date/Time Associated Diagnosis Comme nts PULMONARY AND CC Routine 02/06/2021 2:15 PM Resul ts for this MEDICINE IMAGE EXAM CDT procedur e are in the results section. documented in this encounter Results UNSPECIFIED-Pulmonary And CC Medicine Image Exam (02/06/2021 2:15 PM CDT) Specimen (Source) Anatomical Collection Method Collection Time Re ceived Time Location / / Volume Laterality 02/06/2021 2:15 PM CDT Narrative [facility] - 02/06/2021 3:17 PM CDT This order has been created and auto-finalized to support the import of images acquired without order. The clini tio documentation to support these images can be found on the encounter сергей t produced images. Provider Not In System IMG NON RAD IMAGING PROCEDUR ES Performing Organization Address City/State/ZIP Code Phon e Number [facility] NA documented in this encounter Visit Diagnoses Not on filedocumented in this encounter Additional Health Concerns Infection Onset Date Last Indicated Resolved Time COVID19 01/26/2021 01/26/2021 02/15/2021 4:55 AM CDT documented as of this encounter Care Teams Cover Seamer Relationship Specialty Start Date End Date None Reported, Pcp PCP - General Family Medicine 01/25/2102/21 documented as of this encounter
--- OUTSIDE RECORDS SUMMARY | 2022-04-02 01:28 | XMS_ITS | Encounter Summary ---
:1965 Author Organization [facility] Address [address] [place] [address] Care Team Providers Name Role Phone None Reported, Pcp Primary Care Provider Unavailable Reason for Visit Reason Comments Pre-visit Testing Orders Encounter Details Date Type Department Care Team Description 01/25/2021 Clinical Communication RST NADINE Hercules, Pre-visit Testing [address] [facility] Anita Graff Orders [place], [place] [address] [facility] [id number] [place] [address] Social History Tobacco Use Types Packs/Day Years [...] or relatives? How often do you attend voodoo or More than 4 times per year 02/09/2021 pentecostalism services? Do you belong to any clubs or Yes 02/09/2021 organizations such as voodoo groups, unions, fraternal or athletic groups, or [...] or slept in a fci (including now)? Sex Assigned at Date Recorded Male 02/09/2021 2:11 PM CDT documented as of this encounter Plan of Treatment Not on filedocumented as of this encounter Results (ABNORMAL) SARS CoV-2 RNA, PCR, Varies Asymptomatic (01/26/2021 7:08 AM CDT) [facility] Method Time Signature SARS CoV-2 Swab, 01/26/2021 DTL RNA, PCR, Nasopharynx 12:29 PM Source CDT SARS CoV-2 Detected (A) Undetected 01/26/2021 DTL RNA, PCR 12:29 PM CDT Comment: SARS-CoV-2 RNA present. ----ADDITIONAL INFORMATION---- This RT-PCR test has received Emergency Use Authorization (EUA) by the U.S. Food and Drug Administration an d is used per police worker's instructions. Performance characteristics were verified by [facility] in a manner consistent with CLIA requirements. Visit the CDC website: https://www.cdc.g ov/coronavirus/ for the most recent guidelines on Coron avirus testing. Fact Sheet for Healthcare Providers: https://www.fda.gov/media/120644/downloa d Fact Sheet for Patients: https://www.fda.gov/media/646313/downloa d Specimen Anatomical Collection Method Collection Time Receive d Time (Source) Location / / Volume Laterality Varies 01/26/2021 7:08 AM 7:44 (Nasopharynx) CDT AM CDT Dajuan Hercules M.D. LAB MICROBIOLOGY - GENERAL O RDERABLES Performing Organization Address City/State/ZIP Code Phon e Number [facility] - [address] [place], [place] [address] [place] [address] [facility] [address] documented in this encounter Visit Diagnoses Diagnosis Diabetes Mellitus Type 2 Hyperglycemia ( [facility]) - Primary Dyspnea documented in this encounter Care Teams Faucet Polisher Relationship Specialty Start Date End Date None Reported, Pcp PCP - General Family Medicine 01/25/2102/21 documented as of this encounter
--- OUTSIDE RECORDS SUMMARY | 2022-04-02 01:28 | XMS_ITS | Encounter Summary ---
:1965 Author Organization [facility] Address [address] [place] [address] Care Team Providers Name Role Phone Unavailable Primary Care Provider Unavailable Reason for Visit Appointment Request (Routine) - Closed Specialty Diagnoses / Procedures Referred By Contact Refer red To Contact Pulmonary Medicine Diagnoses Edema Pulmonary (HCC) Referral ID Status Reason Start Date Expiration Date Visits Requ ested Visits Authorized [id number] Closed 12/21/2020 12/21/2021 2 1 Encounter Details Date Type Department Care Team Description 12/30/2020 Hospital Encounter Division of [place], Pneumotho rax Pulmonary Medicine Norma Cespedes M.D. Iatrogenic (Primary in [place], [address] [facility]) [place], [place] [address] [facility] [address] [place], [place] [phone] (Work) [phone] Social History Tobacco Use Types Packs/Day Years Used Date Smoking Tobacco: Former Cigarettes Quit : 2007 Alcohol Habits Answer Date Recorded How often [...] or relatives? How often do you attend jain or More than 4 times per year 02/09/2021 caodaism services? Do you belong to any clubs or Yes 02/09/2021 organizations such as jain groups, unions, fraternal or athletic groups, or [...] or slept in a [facility] (including now)? Sex Assigned at Date Recorded [...] diagnostic USE DIRECTED TWO 100 each 1 0 08/2020 strips TIMES A DAY blood-glucose meter Test as directed for 1 each 0 2020 [facility] diabetes control. blood-glucose meter Test as directed [...] FOUR per tablet HOURS NEEDED FOR PAIN losartan (COZAAR) 100 Take 1 tablet (100 [...] before breakfast. documented as of this encounter Progress Notes Norma Killian M.D. - 12/30/2020 8:30 AM CDT I called Mr. Fairbanks today. He had forgotten about today's appointment and [facility] [place] [facility]. Patient is a 55 y.o. male with ischemic cardiomyopathy, CAD with recent stent placement, and recent hospital admission for acute respiratory failure due to decompensated heart failure, likely iatrogenic left pneumothorax following needle decompression and subsequent intraparenchymal pigtail placement and then surgical chest tube, who is here today for follow-up. He was evaluated at an OSH for follow up on 12/13 and had repeat imaging at that time which he reports showed a pleural effusion. Thoracentesis was recommended but he opted to hold off. He is doing ok now. Reports persistent left sided pain unchanged from discharge. He will call and schedule a follow up appointment for the effusion either here or locally. Edited by: Aleena Rodrigez, Dietitian Teaching 01/09/21 9:54 AM CDT documented in this encounter Plan of Treatment Not on filedocumented as of this encounter Visit Diagnoses Diagnosis Pneumothorax Iatrogenic - Primary documented in this encounter
--- OUTSIDE RECORDS SUMMARY | 2022-04-02 01:28 | XMS_ITS | Encounter Summary ---
:1965 Author Organization [facility] Address [address] [place] [address] Care Team Providers Name Role Phone None Reported, Pcp Primary Care Provider Unavailable Reason for Visit Reason Comments Shortness of Breath Encounter Details Date Type Department Care Team Description 01/25/2021 Emergency [facility] Marielena Castrejon, Shortness Of Breath Emergency Department MACHINE SPLITTER, C.N.P. (Primary Dx) [address] [facility] [address] [place] [id number] [phone] (Wo rk) Social History Tobacco Use Types [...] More than 4 times per year 02/09/2021 nondenominational services? Do you belong to any clubs [...] or slept in a half-way (including now)? Sex Assigned at Date Recorded Male 02/09/2021 2:11 PM CDT documented as of this encounter Last Filed Vital Signs Vital Sign Reading Time Taken Comments Blood Pressure 143/82 01/25/2021 12:30 PM CDT Pulse 83 01/25/2021 12:30 PM CDT Temperature 36.8 ??C (98.2 ??F) 01/25/2021 9:16 AM CDT Respiratory Rate 29 01/25/2021 12:30 PM CDT Oxygen Saturation 93% 01/25/2021 12:30 PM CDT Inhaled Oxygen Concentration - - Weight 91.2 kg (201 lb 1 oz) 01/25/2021 9:01 AM CDT Height - - Body Mass Index 29.11 11/28/2020 6:45 AM CDT documented in this encounter Discharge Instructions AttachmentsThe following attachments cannot be sent through Care Everywhere. Shortness of Breath Adult Glap-hj-Yfvy (Italian)documented in this encounter Medications at Time of [...] documented as of this encounter Progress Notes Dajuan Hercules M.D. - 01/25/2021 11:31 AM CDT ---------Miscellaneous [facility] ED consult Service Note-------- Mr. Mason Fairbanks a chart review was completed. The patient was not seen or evaluated by the [facility] EDConsult Team. Chart review and discussion with Emergency Department provider Marielena Castrejon APRN. Optimization Recommendations: Mr. Fairbanks is a 55 year old gentleman that has been previously evaluated in [place], [place] for dyspnea. He has a history of HTN and underlying CAD. He recently had a respiratory arrest in November 2020 where he was intubated, had a chest tube placed for a pneumothorax and was treated for community acquired pneumonia. The patient also underwent coronary angiogram 12/02/20 with no significant occlusion. Thepatient was discharged on home oxygen. The patient since then has had worsening dyspnea. The emergency room team asked [place] team to see if outpatient pulmonary appointment could be expedited. We would like to determine if the patient has a pulmonary component for his dyspnea. The patient has PFTs and pulmonary appointment scheduled for January 27, 2021 at 7:30 am. He also has a COVID swab scheduled for tomorrow. Please let us know if [facility] is able to assist in any other way. -----All results and laboratory testing will be followed by the emergency department team. Please ensure results are forwarded to them. We appreciate the collaborative care with the [facility] ED in the management of Mr. Mason Fairbanks. If any questions or concerns, feel free to page [phone] [facility] ED Consult Team between the hours of 7a-4p. Addendum: The patient had a COVID swab 01/26 in preparation for his pulm appointment 01/27. The patient has a known covid + diagnosis from [place], [place] on 01/06/21. He is past his isolation period. However, his COVID swab on 01/26 returned positive. [place] team received a call that his pulmonary appointment was moved to March 31 due to the covid positive test even though it is not a new diagnosis. We are waiting to hear from medical physics professor to see if appointment can be expedited. I spoke to the patients Sridevi on 01/26, let her know of the positive result. She is aware that we are trying to move the appointment if possible. We will let her know if we are able to get an appointment sooner than 03/31/21. Addendum 2:48 pm: Our DOS was able to have the appointments moved back to 01/26 (consult and PFTs). Greatly appreciate DOS and pulmonary assistance. documented in this encounter ED Notes Marielena Castrejon, GEOVANNY, C.N.P. - 01/25/2021 9:20 AM CDT SUBJECTIVE CHIEF COMPLAINT/REASON FOR VISIT Shortness of Breath HISTORY OF PRESENT ILLNESS Patient is a 55 yo male with hx of: Diabetes Mellitus Type 2 Hyperglycemia (HCC) Hypertension Essential Primary Atherosclerotic Heart Disease [place] Coronary Artery With Other Forms Angina Pectoris (Stable Angina/Angina Of Exertion) (HCC) Pneumothorax Unspecified Who presents to the emergency department with shortness of breath and chest burning. Patient has a extensive recent medical history. He did receive cardiac stents in 2019. He was having shortness of breath and chest discomfort in November and was driving from [place] to the [facility] when he developed increased respiratory distress. Patient's pulled over to a gas station and called the ambulance and he was flown to the emergency department. Shortly after arrival to the emergency department he had a respiratory code and was intubated and taken to the ICU. He was found to have a pneumothorax and chest tube was inserted. Cardiac Angiocath was performed no occlusions noted therefore no interventions performed. An echo showed an EF of 44%. He was given antibiotics for presumed pneumonia. Then surely weaned off of oxygen and discharged home December 05. He reports since he has been home in [place] he has required supplemental oxygen at night. He continues to have coughing to. He was diagnosed with COVID 3 weeks ago and given the antibodies. On Saturday he developed a fever, body aches, vomiting and could not eat. He presents back to the emergency department because he does not trust the doctors at [place]. His chief complaints are chest burning that is been ongoing since he left [facility] in November. Constant coughing with intermittent sputum that is green to clear in color. He has no appetite. He continues to need supplemental oxygen at night which is frustrating to the patient. He has not had a fever since Saturday. Intermittent nausea but no vomiting since Saturday. No abdominal discomfort. He has had diarrhea since leaving hit [facility] in November. But no bloody stool s or dark-colored stools. Decreased urine output, he does drink a lot of water. Blood sugars have been well controlled between 80 and 120. REVIEW OF SYSTEMS Constitutional: Negative for chills. Fever resolved HENT: Negative for trouble swallowing. Eyes: Negative for visual disturbance. Respiratory: Positive for cough and shortness of breath. Negative for hemoptysis. Cardiovascular: Positive for chest pain. Negative for leg swelling. Gastrointestinal: Positive for nausea. Negative for abdominal pain and vomiting. Vomiting resolved Genitourinary: Negative for dysuria. Musculoskeletal: Positive for arthralgias and myalgias. Negative for neck stiffness. Skin: Negative for wound. Allergic/Immunologic: Negative for immunocompromised state. Neurological: Positive for weakness. Negative for headaches. Hematological: Does not bruise/bleed easily. Psychiatric/Behavioral: Negative for depression. OBJECTIVE Initial Vitals [01/25/21 0916] Temperature Pulse Rate Heart Rate Resp Rate Blood Pressure SpO2 36.8 ??C 95 93 21 139/79 96 % Pain Score -- PHYSICAL EXAMINATION Constitutional: Nursing note and vitals reviewed. He appears not lethargic. HENT: Head: Atraumatic. Mouth/Throat: Oropharynx is clear and moist. Mucous membranes are moist. Eyes: Conjunctivae are normal. Pupils are equal, round, and reactive to light. Right eye exhibits nodischarge. Left eye exhibits no discharge. Neck: Neck supple. No tracheal deviation present. Cardiovascular: Normal rate, regular rhythm and normal heart sounds. Pulses are strong and palpable.Capillary refill: takes less than 3 seconds, Pulmonary/Chest: Effort normal. No respiratory distress. Diminished breath sounds on the left lower lung Abdominal: Soft. exhibits no distension. There is no abdominal tenderness. There is no rebound and no guarding. Musculoskeletal: General: No edema. Normal range of motion. Cervical back: Normal range of motion and neck supple. Neurological: Alert and oriented to person, place, and time. He is not disoriented. No cranial nervedeficit. Skin: Skin is warm, dry, intact and normal color. Rash noted. Lesions near mouth appear similar to cold sores. No sores intraoral or on the palm see Psychiatric: He has a normal mood and affect. Behavior is normal. Judgment normal. ASSESSMENT/PLAN IMPRESSION AND PLAN 1. Shortness of breath. Patient is in no respiratory distress she is not on supplemental oxygen. Thesymptoms have been ongoing for the past 7 weeks. I considered pulmonary embolism but less likely. I do not hear lung sounds on the left lower this could represent a pneumonia or a pleural effusion. Pulmonary congestion. His chest pain is been ongoing since November will obtain ECG and cardiac enzymes. Bedside ultrasound was performed and shows no concern for large pericardial effusion or concern for cardiac tamponade. Hemoglobin is stable at 12.3, leukocytes 9.5, lactate is normal. VBG shows a pH is 7.41, pCO2 of 44. ECG shows sinus rhythm with PVC. Chest x-ray shows a small left pleural effusion and a resolved pneumothorax. Troponins have trended not significant. Remaining labs are unremarkable. Patient remains vitally stable he is not requiring supplemental oxygen. He is in no respiratory distress. Secure follow-up with pulmonology and pulmonology testing on Saturday. D/c in stable condition I reviewed previous medical records including documentation from previous visits. I personally reviewed the lab result(s) and my interpretation is documented in ED Course. I reviewed the radiology report(s). I independently reviewed the ECG tracing and my interpretation is documented in ED Course. Marielena Castrejon APRN, C.N.P. 01/25/21 1220 documented in this encounter Plan of Treatment Not on filedocumented as of this encounter Procedures Procedure Name Priority Date/Time Associated Comments Diagnosis TROPONIN T, 2H/6H, Timed 01/25/2021 11:57 Resul ts for this 5TH GEN, P AM CDT procedure are i n the results section. DX CHEST AP OR PA RAD - Semiurgent 01/25/2021 10:21 Re sults for this AND LATERAL 2 VIEWS (Fast; most ED AM CDT proced ure are in patients; some the results inpatients) section. LACTATE, POCT, B Routine 01/25/2021 9:36 Results for this AM CDT procedure are i n the results section. BLOOD GAS, POCT, B STAT 01/25/2021 9:35 Result s for this AM CDT procedure are i n the results section. LACTATE, POCT, B STAT 01/25/2021 9:35 Results for this AM CDT procedure are i n the results section. VBG & LYTES CG8+, Routine 01/25/2021 9:32 Results for this POCT, B AM CDT procedure are i n the results section. TROPONIN T, STAT 01/25/2021 9:31 Results for this BASELINE, 5TH GEN, AM CDT procedure are in P the results section. HEPATIC FUNCTION STAT 01/25/2021 9:31 Results for this PANEL, S AM CDT procedure are i n the results section. NT-PRO B-TYPE STAT 01/25/2021 9:31 Results for this NATRIURETIC PEPTIDE AM CDT procedur e are in (BNP), S the results section. PROTHROMBIN TIME STAT 01/25/2021 9:31 Results for this (PT), P AM CDT procedure are i n the results section. CBC WITH STAT 01/25/2021 9:31 Results for this DIFFERENTIAL, B AM CDT procedure ar e in the results section. MAGNESIUM, S STAT 01/25/2021 9:31 Results for this AM CDT procedure are i n the results section. LIPASE, S/P STAT 01/25/2021 9:31 Results for this AM CDT procedure are i n the results section. BASIC METABOLIC STAT 01/25/2021 9:31 Results f or this PANEL, S/P AM CDT procedure are i n the results section. HEMOGLOBIN A1C, B STAT 01/25/2021 9:24 Results for this AM CDT procedure are i n the results section. ECG STAT 01/25/2021 9:03 Results for this AM CDT procedure are i n the results section. documented in this encounter Results Troponin T, 2H/6H, 5th Gen (01/25/2021 11:57 AM CDT) [facility] Method Time Signature Troponin T, 2 15 <=15 ng/L 01/25/2021 [facility] hr, 5th gen 12:26 PM CDT 2H Delta 0 ng/L 01/25/2021 [facility] 12:26 PM CDT 2H Delta Not Changing 01/25/2021 [facility] Interp 12:26 PM CDT Troponin T, 6 CANCELED ng/L 01/25/2021 [facility] hr, 5th gen 12:26 PM CDT Comment: Result canceled by the ancillar y. Specimen Anatomical Collection Method Collection Time Receive d Time (Source) Location / / Volume Laterality Blood (Blood, 01/25/2021 11:57 01/25/2021 Venous) AM CDT 12:03 PM CDT Narrative [facility] - 01/25/2021 12:26 PM CDT Specimen Information: Specimen ID: [id number] Specimen Type: Blood Specimen Collection Start Date: 01/26/20 11:57 AM Specimen Received Date: 01/25/2021 12:03 PM Specimen ID: [id number] Specimen Type: Blood Marielena Castrejon APRN C.N.P. LAB BLOOD TROPONIN Performing Organization Address City/State/ZIP Code Phon e Number [facility] - [address] [place] [address] [address] [place] [address] [facility] [address] DX Chest AP or PA and Lateral 2 Views (01/25/2021 10:21 AM CDT) Anatomical Region Laterality Modality Chest, Thoracic RST LOS, Thoracic ARZ LOS, Thoracic N/A Digital Radiography FLA LOS Specimen (Source) Anatomical Collection Method Collection Time Re ceived Time Location / / Volume Laterality 01/25/2021 10:26 AM CDT Impressions 01/25/2021 10:27 AM CDT Since 12/03/2020, increased small left pleural effusion with associated atelectasis. Resolved left pn eumothorax. Subcutaneous emphysema in the left chest wall has resolved where s een. Aortic calcification. Narrative 01/25/2021 10:27 AM CDT EXAM: ??DX CHEST AP OR PA AND LATERAL 2 VIEWS Procedure Note Jewel Chacon M.D. - 01/25/2021Forma tting of this note might be different from the original. EXAM: DX CHEST AP OR PA AND LATERAL 2 EWS IMPRESSION: Since 12/03/2020, increased small left p leural effusion with associated atelectasis. Resolved left pn eumothorax. Subcutaneous emphysema in the left chest wall has resolved where s een. Aortic calcification. Marielena Castrejon APRN, C.N.P. IMG DIAGNOSTIC IMAGING PROCEDURES Lactate, POCT (01/25/2021 9:36 AM CDT) P athologist Signature Lactate, POCT 0.62 0.50 - 01/25/2021 PCLX 2.20 9:48 AM CDT mmol/L Sample Site, Venstick 01/25/2021 PCLX POCT 9:48 AM CDT Specimen Anatomical Collection Method Collection Time Receive d Time (Source) Location / / Volume Laterality Blood 01/25/2021 9:36 AM 9:48 CDT AM CDT Unknown Provider LAB POCT ORDERABLES - DEVICE Performing Organization Address City/[facility]/ZIP Code Phon e Number POC [facility] [address] [place] [address] [place] [address] [facility] [address] Lactate, POCT (01/25/2021 9:35 AM CDT) Analysis Performed At Patho logist Time Signature Lactate, POCT Collected DEFAULT 01/25/2021 SMLX 9:35 AM CDT Specimen Anatomical Collection Method Collection Time Receive d Time (Source) Location / / Volume Laterality Blood (Blood, 01/25/2021 9:35 AM 01/26/20 9:35 Venous) CDT AM CDT Marielena Castrejon APRN, C.N.P. LAB POCT ORDERABLES - D EVICE Performing Organization Address City/[facility]/ZIP Code Phon e Number [facility] - [address] [place], [place] [address] [facility] [place] [address] Laboratories[address] Venous Blood Gas and Electrolytes, POCT (01/25/2021 9:35 AM CDT) Analysis Performed At Patho logist Time Signature ABG and Lytes, Collected DEFAULT 01/25/2021 SMLX POCT, B 9:35 AM CDT Specimen Anatomical Collection Method Collection Time Receive d Time (Source) Location / / Volume Laterality Blood (Other, 01/25/2021 9:35 AM 01/26/20 9:35 Specify in CDT AM CDT Comments) Marielena Castrejon APRN, C.N.P. LAB POCT ORDERABLES - D EVICE Performing Organization Address City/State/ZIP Code Phon e Number [facility] - [address] [place] [address] [facility] [place] [address] [address] (ABNORMAL) Venous Blood Gas and Electrolytes CG8+, POCT (01/25/2021 9:32 AM CDT) P athologist Signature Sample Site, Venstick 01/25/2021 PCSM POCT 9:47 AM CDT Comment: ----ADDITIONAL INFORMATION---- Performed at the Point of Care pH, Venous, POCT, B 7.41 7.32 - 7.43 01/25/2021 9:47 AM CDT PCSM Comment: ----ADDITIONAL INFORMATION---- Performed at the Point of Care pCO2, Venous, POCT, B 44 41 - 51 mm Hg 01/25/2021 9:4 7 AM CDT PCSM Comment: ----ADDITIONAL INFORMATION---- Performed at the Point of Care pO2, Venous, POCT, B 21 Not Applicable mm Hg 01/26/20 9:47 AM CDT PCSM Comment: ----ADDITIONAL INFORMATION---- Performed at the Point of Care Base Excess, Venous, POCT, B 3 Not Applicable mmol/L 01/25/2021 9:47 AM CDT PCSM Comment: ----ADDITIONAL INFORMATION---- Performed at the Point of Care HCO3, Venous, POCT, B 27 Not Applicable mmol/L 2020 9:47 AM CDT PCSM Comment: ----ADDITIONAL INFORMATION---- Performed at the Point of Care Sodium, POCT, B 140 135 - 145 mmol/L 01/25/2021 9:47 A M CDT PCSM Comment: ----ADDITIONAL INFORMATION---- Performed at the Point of Care Potassium, POCT, B 3.8 3.6 - 5.2 mmol/L 01/25/2021 9:4 7 AM CDT PCSM Comment: ----ADDITIONAL INFORMATION---- Performed at the Point of Care Calcium, Ionized, POCT, B 5.00 4.65 - 5.30 mg/dL 2020 9:47 AM CDT PCSM Comment: ----ADDITIONAL INFORMATION---- Performed at the Point of Care Glucose, POCT, B 136 70 - 140 mg/dL 01/25/2021 9:47 AM CDT PCSM Comment: ----ADDITIONAL INFORMATION---- Performed at the Point of Care Hematocrit, POCT, B 35.0 (L) 38.3 - 48.6 % 01/25/2021 9:47 AM CDT PCSM Comment: ----ADDITIONAL INFORMATION---- Performed at the Point of Care Specimen Anatomical Collection Method Collection Time Receive d Time (Source) Location / / Volume Laterality Blood 01/25/2021 9:32 AM 9:48 CDT AM CDT Unknown Provider LAB POCT ORDERABLES - DEVICE Performing Organization Address City/[facility]/ZIP Code Phon e Number POC RST [facility] INPATIENT [address] [place], [place] [address] LABS PCSM [facility] [place], [place] [id number] [place] [address] POC [address] [place] [address] Magnesium (01/25/2021 9:31 AM CDT) P athologist Signature Magnesium, S 1.8 1.7 - 2.3 01/25/2021 DTL mg/dL 10:40 AM CDT Specimen Anatomical Collection Method Collection Time Receive d Time (Source) Location / / Volume Laterality Blood (Blood, 01/25/2021 9:31 AM 01/26/20 21 Venous) CDT 10:06 AM CDT Marielena Castrejon APRN, C.N.P. LAB BLOOD ADD-ON Performing Organization Address City/State/ZIP Code Phon e Number [facility] - [address] [place], [place] [address] [facility] [place] [address] Laboratories-[address] Troponin T, Baseline, 5th gen (01/25/2021 9:31 AM CDT) P athologist Signature Troponin T, 15 <=15 ng/L 01/25/2021 [facility] Baseline, 5th 10:02 AM CDT gen Specimen Anatomical Collection Method Collection Time Receive d Time (Source) Location / / Volume Laterality Blood (Blood, 01/25/2021 9:31 AM 01/26/20 9:44 Venous) CDT AM CDT Colt Schneider APRN.N.P. LAB BLOOD TROPONIN Performing Organization Address City/[facility]/ZIP Code Phon e Number [facility] - [address] [place], [place] [address] [place] [address] [address] (ABNORMAL) Prothrombin Time (PT) (01/25/2021 9:31 AM CDT) Patholo gist Method Time Signature Prothrombin 12.6 (H) 9.4 - 12.5 01/25/2021 [facility] Time, P sec 9:51 AM CDT INR 1.1 0.9 - 1.1 01/25/2021 [facility] 9:51 AM CDT Comment: ----ADDITIONAL INFORMATION---- Standard intensity warfarin therapeutic range: 2.0 to 3.0 ?? High intensity warfarin therapeutic rang e: 2.5 to 3.5 Specimen Anatomical Collection Method Collection Time Receive d Time (Source) Location / / Volume Laterality Blood (Blood, 01/25/2021 9:31 AM 01/26/20 21 9:44 Venous) CDT AM CDT Colt Schneider APRN.N.P. LAB BLOOD ADD-ON Performing Organization Address City/State/ZIP Code Phon e Number [facility] - [address] [place], [place] [address] [place] [address] Laboratories[address] (ABNORMAL) NT-Pro B-Type Natriuretic Peptide (BNP) (01/25/2021 9:31 AM CDT) P athologist Signature NT-Pro BNP 445 (H) 5 - 67 01/25/2021 [facility] pg/mL 10:14 AM CDT Comment: NT-proBNP values less than [...] Location / / Volume Laterality Blood (Blood, 01/25/2021 9:31 AM 01/26/20 9:44 Venous) CDT AM CDT Marielena Castrejon APRN, C.N.P. LAB BLOOD ADD-ON Performing Organization Address City/[facility] Phon e Number [facility] - [address] [place] [address] Lipase (01/25/2021 9:31 AM CDT) athologist Signature Lipase, S 53 13 - 60 U/L 01/25/2021 DTL 10:40 AM CDT Specimen Anatomical Collection Method Collection Time Receive d Time (Source) Location / / Volume Laterality Blood (Blood, 01/25/2021 9:31 AM 01/26/20 Venous) CDT 10:06 AM CDT Marielena Castrejon APRN, C.N.P. LAB BLOOD ADD-ON Performing Organization Address City/[facility] Phon e Number [facility] - [address] Hepatic Function Panel (01/25/2021 9:31 AM CDT) Patholo gist Method Time Signature Bilirubin, Total, S 0.5 <=1.2 01/25/2021 DTL mg/dL 10:40 AM CDT Bilirubin, Direct, S 0.2 0.0 - 0.3 01/25/2021 DTL mg/dL 10:40 AM CDT Aspartate 18 8 - 48 01/25/2021 DTL Aminotransferase U/L 10:40 AM CDT (AST), S Alanine 20 7 - 55 01/25/2021 DTL Aminotransferase U/L 10:40 AM CDT (ALT), S Alkaline 77 40 - 129 01/25/2021 DTL Phosphatase, S U/L 10:40 AM CDT Albumin, S 3.7 3.5 - 5.0 01/25/2021 DTL g/dL 10:40 AM CDT Protein, Total, S 6.5 6.3 - 7.9 01/25/2021 DTL g/dL 10:40 AM CDT Specimen Anatomical Collection Method Collection Time Receive d Time (Source) Location / / Volume Laterality Blood (Blood, 01/25/2021 9:31 AM 01/26/20 21 Venous) CDT 10:06 AM CDT Marielena Castrejon APRN C.N.P. LAB BLOOD ADD-ON Performing Organization Address City/State/ZIP Code Phon e Number [facility] - [address] [place], [place] [address] [facility] [place] [address] Laboratories-[facility] 200 [facility] (ABNORMAL) CBC with Differential, Blood (01/25/2021 9:31 AM CDT) [facility] gist Method Time Signature Hemoglobin 12.3 (L) 13.2 - 01/25/2021 [facility] 16.6 g/dL 9:46 AM CDT Hematocrit 36.8 (L) 38.3 - 01/25/2021 [facility] 48.6 % 9:46 AM CDT Erythrocytes 4.37 4.35 - 01/25/2021 [facility] 5.65 9:46 AM CDT x10(12)/L MCV 84.2 78.2 - 01/25/2021 [facility] 97.9 fL 9:46 AM CDT RBC Distrib Width 14.1 11.8 - 01/25/2021 [facility] 14.5 % 9:46 AM CDT Platelet Count 302 135 - 317 01/25/2021 [facility] x10(9)/L 9:46 AM CDT Leukocytes 9.5 3.4 - 9.6 01/25/2021 [facility] x10(9)/L 9:46 AM CDT Neutrophils 6.27 1.56 - 01/25/2021 [facility] 6.45 9:46 AM CDT x10(9)/L Lymphocytes 1.40 0.95 - 01/25/2021 [facility] 3.07 9:46 AM CDT x10(9)/L Monocytes 1.40 (H) 0.26 - 01/25/2021 [facility] 0.81 9:46 AM CDT x10(9)/L Eosinophils 0.37 0.03 - 01/25/2021 [facility] 0.48 9:46 AM CDT x10(9)/L Basophils 0.07 0.01 - 01/25/2021 [facility] 0.08 9:46 AM CDT x10(9)/L Specimen Anatomical Collection Method Collection Time Receive d Time (Source) Location / / Volume Laterality Blood (Blood, 01/25/2021 9:31 AM 01/26/20 9:44 Venous) CDT AM CDT Marielena Castrejon APRN, C.N.P. LAB BLOOD ADD-ON Performing Organization Address City/State/ZIP Code Phon e Number [facility] - [address] [place] [address] [address] [place] [address] Laboratories-[facility] 200 [facility] Basic Metabolic Panel (01/25/2021 9:31 AM CDT) athologist Signature Potassium, P 4.2 3.6 - 5.2 01/25/2021 [facility] mmol/L 10:01 AM CDT Comment: Serum used for analysis Sodium, P 141 135 - 145 mmol/L 01/25/2021 10:01 AM CDT [facility] Chloride, P 103 98 - 107 mmol/L 01/25/2021 10:01 AM CD T STMA Bicarbonate, P 26 22 - 29 mmol/L 01/25/2021 10:01 AM CDT STMA Anion Gap, P 12 7 - 15 01/25/2021 10:01 AM CDT STM A BUN (Blood Urea Nitrogen), P 13 8 - 24 mg/dL 01/26/20 10:01 AM CDT STMA Creatinine 0.94 0.74 - 1.35 mg/dL 01/25/2021 10:01 AM C DT STMA eGFR-Black/ >90 >=60 mL/min/BSA 2020 10:01 AM CDT STMA Comment: ----ADDITIONAL INFORMATION---- Estimated GFR calculated using the 2009 CKD_EPI creatinine equation. eGFR Non-Black/ >90 >=60 mL/min/BSA 01/25/2021 10:01 AM CDT STMA Comment: ----ADDITIONAL INFORMATION---- Estimated GFR calculated using the 2009 CKD_EPI creatinine equation. Calcium, Total, P 9.1 8.6 - 10.0 mg/dL 01/25/2021 10:0 1 AM CDT STMA Glucose, P 138 70 - 140 mg/dL 01/25/2021 10:01 AM CDT [facility] Spec[facility] Anatomical Collection Method Collection Time Receive d Time (Source) Location / / Volume Laterality Blood (Blood, 01/25/2021 9:31 AM 01/26/20 9:44 Venous) CDT AM CDT Marielena Castrejon APRN, C.N.P. LAB BLOOD ADD-ON Performing Organization Address City/State/ZIP Code Phon e Number [facility] - [address] [place] [address] [address] [place] [address] Laboratories-[facility] [address] (ABNORMAL) Hemoglobin A1c (01/25/2021 9:24 AM CDT) athologist Signature Hemoglobin A1c, 6.9 (H) 4.0 - 5.6 01/25/2021 DTL B % 10:26 AM CDT Comment: Hemoglobin A1c values greater than or eq ual to 6.5 percent are diagnostic for diabetes mellitus. ?? Diagnosis should be confirmed by repeat testing. ??In diabet ic patients, HbA1c goals should be discussed with healthcar e provider. Specimen Anatomical Collection Method Collection Time Receive d Time (Source) Location / / Volume Laterality Blood (Blood, 01/25/2021 9:24 AM 01/26/20 Venous) CDT 10:16 AM CDT Marielena Castrejon APRN, C.N.P. LAB BLOOD ADD-ON Performing Organization Address City/[facility]/ZIP Code Phon e Number [facility] - [address] [place], [place] [address] [facility] [place] [address] Laboratories-[facility] [address] [facility] ECG 12 Lead (01/25/2021 9:03 AM CDT) P athologist Signature Ventricular Rate 100 BPM MUSE ECG/Min MT Interval 138 ms MUSE QRSD Interval 90 ms MUSE QT Interval 354 ms MUSE QTC Interval 456 ms MUSE P [place] 47 degrees MUSE R [place] 48 degrees MUSE T Wave [place] 46 degrees MUSE Specimen Anatomical Collection Method Collection Time Receive d Time (Source) Location / / Volume Laterality 01/25/2021 9:03 AM 9:04 CDT AM CDT Impressions MUSE - 01/25/2021 9:05 AM CDT Sinus rhythm Premature ventricular complexes Low anterior forces When compared with ECG of 28-NOV-2020 03 :24, Premature ventricular complexes are now present Borderline criteria for Anterolateral in farct are no longer present Reviewed by DEBBY Hess Narrative This result has an attachment that is no t available. Procedure Note Ermias King M.D. - 01/25/2021Fo rmatting of this note might be different from the original. IMPRESSION: Sinus rhythm Premature ventricular complexes Low anterior forces When compared with ECG of 28-NOV-2020 03 :24, Premature ventricular complexes are now present Borderline criteria for Anterolateral in farct are no longer present Reviewed by DEBBY Hess Marielena Bright Lucía SMALL, RachelN.P. ECG ORDERABLES Performing Organization Address City/[facility]/ZIP Code Phon e Number MUSE MUSE NA documented in this encounter Visit Diagnoses Diagnosis Shortness Of Breath - Primary documented in this encounter Care Teams Bookkeeping Machine Mechanic Relationship Specialty Start Date End Date None Reported, Pcp PCP - General Family Medicine 01/25/2102/21 documented as of this encounter
--- OUTSIDE RECORDS SUMMARY | 2022-04-02 01:28 | XMS_ITS | Encounter Summary ---
:1965 Author Organization [facility] Address [address] [place] [address] Care Team Providers Name Role Phone None Reported, Pcp Primary Care Provider Unavailable Reason for Referral Outpatient (Routine) - Closed Specialty Diagnoses / Procedures Referred By Contact Refer red To Contact Pulmonary Medicine Diagnoses Diabetes Mellitus Type 2 Hyperglycemia (HCC) Dyspnea Multifactorial Dajuan Hercules [facility] Anita [address] [place] [address] Referral ID Status Reason Start Date Expiration Date Visits V isits Requested Authorized [id number] Closed Specialty 01/25/2021 01/25/2022 1 1 Services Required Reason for Visit Reason Comments Pre-visit Testing Orders Encounter Details Date Type Department Care Team Description 01/25/2021 Clinical Communication RST NADINE Hercules, Pre-visit Testing [address] [facility] Anita Graff Orders [place], [place] [address] [facility] [id number] [place] [address] Social History Tobacco Use Types Packs/Day Years [...] or relatives? How often do you attend alevism or More than 4 times per year 02/09/2021 shinto services? Do you belong to any clubs or Yes 02/09/2021 organizations such as alevism groups, unions, fraEthical Deal or athletic groups, or school groups? How [...] slept in a group home (including now)? Sex Assigned at Date Recorded Male 02/09/2021 2:11 PM CDT documented as of this encounter Plan of Treatment Scheduled Referrals Name Type Priority Associated Diagnoses Order [facility] Pulmonary Medicine Outpatient Referral Routine [facility] Type Expected: - General consult 2 Hyperglycemi a (HCC) 01/25/2021 (clinic) Dyspnea Multifactorial (Appr oximate), Expires: 01/26/2024 documented as of this encounter Visit Diagnoses Diagnosis Diabetes Mellitus Type 2 Hyperglycemia ( [facility]) - Primary Dyspnea Multifactorial documented in this encounter Care Teams Tea Room Manager Relationship Specialty Start Date End Date None Reported, Pcp PCP - General Family Medicine 01/25/2102/21 documented as of this encounter
--- OUTSIDE RECORDS SUMMARY | 2022-04-02 01:28 | XMS_ITS | Encounter Summary ---
:1965 Author Organization [facility] Address [address] [place] [address] Care Team Providers Name Role Phone Elsewhere, Pcp Primary Care Provider Unavailable Reason for Referral Outpatient (Routine) - Closed Specialty Diagnoses / Procedures Referred By Contact Refer red To Contact Diagnoses Effusion Pleural [facility]ult[facility] Procedures Thoracentesis Anita Nieves [address] [place] [phone] Referral ID Status Reason Start Date Expiration Date Visits Requ ested Visits Authorized [id number] Closed 01/31/2021 01/31/2022 1 1 RI/CAT/PET Scan (Routine) - Closed Specialty Diagnoses / Procedures Referred By Contact Refer red To Contact Radiology Diagnoses Dyspnea Multifactorial Effusion Pleural Garzanoam Camacho [facility] Procedures CT Chest with IV Contrast CT Chest without IV Contrast Anita Nieves [address] [place] [phone] Referral ID Status Reason Start Date Expiration Date Visits Requ ested Visits Authorized [id number] Closed 01/27/2021 01/27/2022 1 1 utpatient (Routine) - Closed Specialty Diagnoses / Procedures Referred By Referred To Contact Contact Cardiovascular Diseases / Diagnoses Diabetes Mellitus Type 2 Hyperglycemia (HCC) Dyspnea Multifactorial Effusion Pleural Greg Camacho [facility] Cardiovascular Disease Brenden Nieves M.D. [address] [place] [address] Referral ID Status Reason Start Date Expiration Date Visits Requ ested Visits Authorized [id number] Closed 01/27/2021 01/27/2022 1 1 Reason for Visit Outpatient (Routine) - Closed Specialty Diagnoses / Procedures Referred By Contact Refer red To Contact Pulmonary Medicine Diagnoses Diabetes Mellitus Type 2 Hyperglycemia (HCC) Dyspnea [facility]ifactorial [facility] Anita [address] [place] [address] Referral ID Status Reason Start Date Expiration Date Visits V isits Requested Authorized [id number] Closed Specialty 01/25/2021 01/25/2022 1 1 Services Required Encounter Details Date Type Department Care Team Description 01/27/2021 Comprehensive Visit Division of Greg Effusion Pleural (Primary Dx); Pulmonary Medicine Doug, Diabetes Mellitus Type 2 Hyperglycemia (HCC); in [place], Brenden Nieves, Dyspnea Multif actorial [place] Anita 200 [facility] [address] [place] [phone] Social History Tobacco Use Types Packs/Day Years [...] More than 4 times per year 02/09/2021 sikh services? Do you belong to any clubs [...] or slept in a jail (including now)? Sex Assigned at Date Recorded Male 02/09/2021 2:11 PM CDT documented as of this encounter Last Filed Vital Signs Vital Sign Reading Time Taken Comments Blood Pressure 146/87 01/27/2021 10:30 AM CDT Pulse 105 01/27/2021 10:29 AM CDT Temperature - - Respiratory Rate - - Oxygen Saturation 95% 01/27/2021 10:29 AM CDT Inhaled Oxygen Concentration - - Weight 90.5 kg (199 lb 8.3 oz) 01/27/2021 10:29 AM CDT Height 175.4 cm (5' 9.06) 01/27/2021 10:29 AM CDT Body Mass Index 29.42 01/27/2021 10:29 AM CDT documented in this encounter Consult Notes Brenden Rodriguez M.D. - 01/27/2021 10:30 AM CDT SUBJECTIVE REASON FOR CONSULT Respiratory Symptoms: dyspnea Abnormal Respiratory Test: abnormal chest imaging: pleural effusion HISTORY OF PRESENT ILLNESS Patient is a 55 y.o. male with history of diabetes, hypertension, CAD, who presents to Pulmonary Clinic to be evaluated for dyspnea. He was admitted in November of this year where he presented with dyspnea and chest pain. On arrival tot ED he had respiratory decompensation, requiring intubation. Imaging done at that time revealed pulmonary edema and a small pneumothorax. He had a pigtail catheter placed and started on a nitro glycerin drip and admitted to the medical ICU. He also received treatment for potential community pneumonia echocardiogram had revealed a decrease in his ejection fraction and he underwent coronary angiography with no significant coronary occlusions. Patient improved, pigtail removed and was eventually discharged home. He was discharged with home oxygen on 1 L nasal cannula while sleeping. After discharge, he was having persistent left-sided burning pain in the chest . Pain is worsened atnight and for also when taking deep breaths 0, as well as on palpation. He has been taking oxycodonewhich has been helpful. He want to a physician back in [place] and he was offered a thoracentesis,which he declined because he we would be reviewed does not want to undergo more invasive procedures. Patient was diagnosed with COVID-19 on 01/06 21 and he received monoclonal antibodies. The he presented with generalized malaise, fatigue, muscle aches and worsening of the burning chest pain. His symptoms were resolving except for persistent brain fog up until about a week ago, where he had fevers [id number] degrees, nausea, and pain all over his left side. He did not go to a local hospital because he no did not trust the doctors formation or back home. On 01/25, patient presented to the emergency room , at that time his symptoms were already improvingand workup was unrevealing except for an increase in size as in his left pleural effusion. Of note, there was no leukocytosis. He was discharged from the ER with follow-up Pulmonary Clinic His main issue right now continues to be deep burning left-sided pain. Reports productive cough thathas been present since his initial admission. Initially he was having hemoptysis, which has decreased considerably. The patient is a former smoker. Quit 7 years ago. He only smoked half a pack per day for about 5 years . He worked in the [employer] and has no occupational exposures except for a potential short exposure to asbestos many years ago. REVIEW OF SYSTEMS Pertinent items are noted in HPI; all other review of systems was negative. OBJECTIVE VITAL SIGNS Blood Pressure: (146)/(87) 146/87 SpO2: [95 %] 95 % Height: [175.4 cm] 175.4 cm Weight: [90.5 kg] 90.5 kg BSA (Calculated - sq m): [2.1 sq meters] 2.1 sq meters BMI (Calculated): [29.4 kg/m??] 29.4 kg/m?? Pulse Rate: [105] 105 PHYSICAL EXAM General: cooperative, not in acute distress HEENT: Normocephalic, atraumatic, PERRL, membranes, midline septum, neck is supple Heart: RRR, no murmurs, rubs Chest: Symmetric, no accessory muscle use, tender to palpation anteriorly and in the area around pigtail placement scar. Lungs: Decreased breath sounds in the left side. Abdomen: nondistended Extremities: No edema MSK: No deformity, tenderness. Skin: Dry, warm, no rash Neuro: Alert, oriented x3, grossly nonfocal DIAGNOSTIC REVIEW I have reviewed the patient's current laboratory, imaging, and other diagnostic studies. Clinically significant abnormal findings are as follows: ASSESSMENT / PLAN 1. Left sided chest-pain: likely pleuritic vs neuropathic 2. Left-sided pleural effusion 3. Recent COVID-19 infection 4. Coronary artery disease is a 55 year-old man who presents with persistent left sided chest wall pain. The characteristics of his pain appear to be either secondary to neuropathic pain, especially post chest tube placement that could have caused some damage to the intercostal nerves. Some component might be pleuriticpain secondary to his pleural effusion. In terms of the pleural effusion, we performed ultrasound, and we did not see loculations per se, but fluid appeared dense. We discussed with the patient the possibility of performing a thoracentesis, especially given unexplained fevers and concern for possible superinfection. Symptoms, however, have improved with no antibiotics, which is not what we would expect of an infected pleural effusion. Patient would prefer to avoid invasive procedure at this moment. We will obtain a CT of the chest, and based on that determine wether thoracentesis would be indicated. Will start a trial of gabapentin for potential neuropathic pain. In addition, will place referral to cardiology for follow up of his cardiomyopathy. Patient seen and discussed with Dr. Sweetie Camacho M.D. Mario Pitt M.D. - 01/27/2021 10:30 AM CDT This is a supervisory note. I personally interviewed and examined the patient. I reviewed the case in detail with the tire trimmer hand. I agree with her plan. Briefly, this is a very complex situation. The patient was recently admitted to [facility] after he presented in our emergency room with a acute respiratory arrest. The respiratory arrest was the result of progressive, hypoxemic respiratory failure. The initial chest radiograph was very consistent with pulmonary edema potentially due to his known cardiac disease. He has a known cardiomyopathy with an ejection fraction of approximately 40%. His BNP was also acutely elevated. Following the emergent intubation after progression of his respiratory failure on CPAP he was found to have a left-sided pneumothorax. This was treated with a pigtail catheter. Subsequent CT scan did reveal some morefocal pulmonary opacities suggesting perhaps a coexisting infectious pneumonia. During hospitalization the patient underwent a cardiac catheterization which did not show any acute coronary stenosis. The pigtail catheter was eventually successfully removed. While hospitalized at [place] the patient was tested negative for COVID-19 including negative PCR negative antibody testing. When he was discharged she was starting to feel better. He continued to have some left-sided burningchest pain. However all of this was getting better. He subsequently developed significant systemic symptoms and fevers. This was after he returned back to [place]. His repeat evaluation demonstrated positivity for COVID-19 and he was given monoclonal antibody therapy. He was also evaluated with repeat chest imaging. The left-sided pleural effusion seemed to have enlarged by her report. Thoracocentesis was offered but the patient chose not to do that. After the monoclonal antibody treatment he started to feel better again. Nevertheless over this pastweekend he felt worse again and had fevers. This prompted his return to [facility]. He was originally seen in the emergency room where a chest radiograph demonstrated the worse left-sided pleural effusion. Otherwise his laboratory studies are fairly unremarkable including white blood cell count. COVID swab continued to be positive. The patient did not have need any oxygen while in the emergency room. This is overall an improvement as compared to November. Patient also has a history of newly diagnoseddiabetes mellitus. At this point in time overall the absence of recurrent fevers and his relatively normal blood work as well as the chest radiograph are somewhat reassuring. Ultrasound of the chest demonstrated some persistent fluid in the left pleural space. Nevertheless the fluid appeared to be somewhat dense. We discussed the possibility of thoracocentesis. The options are continued observation versus more aggressive workup to exclude the possibility of pleural space infection. Given his hesitancy about thoracocentesis we will start of with a CT scan of the chest. Based on the CT scan of the chest we will determine whether or not we would watch for the weight or pursue a thoracocentesis attempt. The fevers remain somewhat unexplained. He is not at risk for chronic persistent COVID infection. documented in this encounter Miscellaneous Notes Addendum Note - Brenden Rodriguez M.D. - 01/27/2021 10:30 AM CDT Addended by: BRENDEN RODRIGUEZ on: 01/30/2021 06:35 PM Modules accepted: Orders Addendum Note - Brenden Rodriguez M.D. - 01/27/2021 10:30 AM CDT Addended by: BRENDEN RODRIGUEZ on: 01/31/2021 03:05 PM Modules accepted: Orders Addendum Note - Brenden Rodriguez M.D. - 01/27/2021 10:30 AM CDT Addended by: BRENDEN RODRIGUEZ on: 01/31/2021 05:52 PM Modules accepted: Orders Addendum Note - Brenden Rodriguez M.D. - 01/27/2021 10:30 AM CDT Addended by: BRENDEN RODRIGUEZ on: 02/06/2021 05:34 PM Modules accepted: Orders Addendum Note - Brenden Rodriguez M.D. - 01/27/2021 10:30 AM CDT Addended by: BRENDEN RODRIGUEZ on: 02/23/2021 05:55 PM Modules accepted: Orders documented in this encounter Plan of Treatment Scheduled Orders Name Type Priority Associated Diagnoses Order S chedule Thoracentesis Procedures Routine Effusion Pleural Expected: 02/06/2021 (Approximate), Expires: 02/01/2024 Scheduled Referrals Name Type Priority Associated Diagnoses Order S chedule Cardiovascular Disease Outpatient Routine Diabetes Mellitus Expected: - General cardiology Referral Type 2 Hyperglycemia 01/27/2021 consult (clinic) ([facility]) (Approximate), Dyspnea Expires: Multifactorial 01/28/2024 Effusion Pleural documented as of this encounter Procedures Procedure Name Priority Date/Time Associated Diagnosis Comme nts CYTOLOGY NON-BOWLING FLOOR MANAGER Routine 02/06/2021 5:34 PM Effusion Pleural R esults for this CDT procedure are i n the results section. documented in this encounter Results Cytology Non-BOWLING FLOOR MANAGER (02/06/2021 5:34 PM CDT) Component Value Ref Test Analysis Performed At [facility] Method Time Signature 02/09/2021 DTL 11:30 AM CDT Report Carroll Ramirez.B.S. [id number] 02/09/2021 DTL electronically 11:30 AM signed by CDT I verify that I have examined all relevant slides/materials for the specimen(s) and rendered or confirmed the diagnosis. Gross Description Received 1 cc 02/09/2021 DTL of blood tinged 11:30 AM fluid. CDT Source A. Pleural, 02/09/2021 DTL Left, fluid 11:30 AM CDT Interpretation A. Pleural, Left, fluid (ThinPrep/cell block): Negat sincere for 02/09/2021 DTL malignancy. 11:30 AM Immunostains were performed on block A1 for CD20 and CD3. CDT The lymphocytes show a mixture of CD3 positive (T cells) and CD20 positive (B cells) lymphocytes, in which the T-lymphocytes predominate. This favors a reactive process. Specimen Anatomical Collection Method Collection Time Receive d Time (Source) Location / / Volume Laterality Varies 02/06/2021 5:34 PM 4:07 CDT PM CDT Narrative This result has an attachment that is no t available. Brenden D Greg Camacho M.D. LAB SURG PATH ORDERAB LES Performing Organization Address City/State/ZIP Code Phon e Number [facility] - [address] [place] [address] [facility] [place] [address] Laboratories-[facility] [address] [facility] CT Chest with IV Contrast (01/29/2021 10:06 [...] EXAM: CT CHEST WITH IV CONTRAST COMPARISON: [facility] examination from 11/28/2020. FINDINGS: In the interval [...] EXAM: CT CHEST WITH IV CONTRAST COMPARISON: [facility] examination from 11/28/2020. FINDINGS: In the interval [...] with clearing of probabl e parenchymal hemorrhage. Brenden Camacho M.D. IMLady CT PROCEDURES documented in this encounter Visit Diagnoses Diagnosis Effusion Pleural - Primary Diabetes Mellitus Type 2 Hyperglycemia ( HCC) Dyspnea Multifactorial Dyspnea Multifactorial Effusion Pleural documented in this encounter Additional Health Concerns Infection Onset Date Last Indicated Resolved Time COVID19 01/26/2021 01/26/2021 02/15/2021 4:55 AM CDT documented as of this encounter Care Teams Bulb Grader Relationship Specialty Start Date End Date Elsewhere, Pcp PCP - General 02/22/21 documented as of this encounter
--- OUTSIDE RECORDS SUMMARY | 2022-04-02 01:28 | XMS_ITS | Encounter Summary ---
:1965 Author Organization [facility] Address [address] [place] [address] Care Team Providers Name Role Phone None Reported, Pcp Primary Care Provider Unavailable Encounter Details Date Type Department Care Team Description 01/26/2021 Clinical Communication Department of [facility] Margaux [place] [facility] [address] [facility] [address] [place] [phone] Social History Tobacco Use Types Packs/Day Years [...] or relatives? How often do you attend confucianist or More than 4 times per year 02/09/2021 mandaen services? Do you belong to any clubs or Yes 02/09/2021 organizations such as confucianist groups, unions, fraternal or athletic groups, or [...] Onset Date Last Indicated Resolved Time COVID19 Pending 01/26/2021 01/26/2021 01/26/2021 12:29 PM CDT COVID19 01/26/2021 01/26/2021 02/15/2021 4:55 AM CDT documented as of this encounter Care Teams Envelope Maker Relationship Specialty Start Date End Date None Reported, Pcp PCP - General Family Medicine 01/25/2102/21 documented as of this encounter
--- OUTSIDE RECORDS SUMMARY | 2022-04-02 01:28 | XMS_ITS | Encounter Summary ---
:1965 Author Organization [facility] Address [address] [place] [address] Care Team Providers Name Role Phone Unavailable Primary Care Provider Unavailable Encounter Details Date Type Department Care Team Description 12/06/2020 Clinical Communication Division of Pulmonary Destiney florez, Medicine in [place], Phuong Hawley M.D. [place] [address] [facility] [address] [place] [phone] Social History Tobacco Use Types Packs/Day Years [...] or relatives? How often do you attend methodist or More than 4 times per year 02/09/2021 temple services? Do you belong to any clubs or Yes 02/09/2021 organizations such as methodist groups, unions, fraternal or athletic groups, or [...] or slept in a usp (including now)? Sex Assigned at Date Recorded Male 02/09/2021 2:11 PM CDT documented as of this encounter Miscellaneous Notes Telephone Encounter - Phuong Lemus M.D. - 12/06/2020 4:41 PM CDT called in via voyage management system operator to discuss glucose meter/lancets/strips prescription as well as rash over arm. She tells me the pharmacy did not give them a glucose meter/lancets/strips so I sent a new prescription to their request pharmacy in [facility]. They also tell me he has developed a rash over his arm. He did have a rash that I personally did notsee during hospitalization as it had resolved. New medications include metformin and Plavix which hetolerated during admission. He denies lip/tongue swelling, coughing/trouble swallowing, difficulty breathing, chest pain or tightness or lightheadedness. We discussed that it may be a reaction to the bandages or cleansing products used in the hospital which many patients react to. It is somewhat itchy. I recommended that they connect with a Primary Care clinic (they have seen a PCP here previously) to see if they could schedule an appointment this week to have the rash examined in-person. For the time being I recommend monitoring of the rash as well as for these red flag symptoms which would warrant a trip to the Emergency Department. Patient/ voiced understanding and denied further questions at this time. Phuong Lemus MD Internal Medicine, PGY2 Inpatient Pulmonology Service documented in this encounter Plan of Treatment Not on filedocumented as of this encounter Visit Diagnoses Not on filedocumented in this encounter
--- OUTSIDE RECORDS SUMMARY | 2022-04-02 01:28 | XMS_ITS | Encounter Summary ---
:1965 Author Organization [facility] Address [address] [place] [address] Care Team Providers Name Role Phone None Reported, Pcp Primary Care Provider Unavailable Encounter Details Date Type Department Care Team Description 01/26/2021 Lab Department of Laboratory Dajuan Hercules , Diabetes Mellitus Type 2 Hyperglycemia (HCC); Medicine and Pathology, [facility], in [address] [place] [address] [place] [address] [place] [address] [phone] Social History Tobacco Use Types Packs/Day Years [...] of the More than 4 times pe joni year 02/09/2021 clubs or organizations you belong [...] encounter Miscellaneous Notes Result Encounter Note - Marielena Epps, RLisaN. - 01/26/2021 2:34 PM CDT The patient will be contacted if they are eligible for Monoclonal Antibody Infusion (MASS 1 or greater) and/or Remote Patient Monitoring (MASS 3 or greater). The [facility] Care Team (MWCCT) sends general guidance about COVID-19 to all patients by letter or portal, except when a patient is hospitalized or resides in a detention. MWCCT will call all adult patients at highest risk for severe complications of COVID-19 (MASS 3 or greater), those without an online services account, and those who require an toy packer. Any patient with a MASS score 1 or greater or a COVID-19 score 1 or greater may be at higher risk ofsevere disease. These patients will follow up directly with primary care. The primary care team willdecide if the patient needs a phone call or a follow up portal message to assess symptom severity, provide individualized guidance on symptom monitoring or symptom management, or to reinforce when to se ek care. MWCCT encourages patients to follow up with their PCP with questions, worsening symptoms, or for symptom management. For questions, contact the [facility] Care Team (M[facility]): Pager: [phone] In basket: P RST/[facility] COVID-19 POSITIVE Covid Care e-consult Components of the Monoclonal Antibody Selection Score (MASS) Compromised Immune System/Transplant = 4 points Chronic Kidney Disease on Dialysis = 4 points Age greater than or equal to 55 and chronic pulmonary disease = 3 points Age greater than or equal to 65 = 2 points Age greater than or equal to = 2 points Diabetes = 2 points Age greater than or equal to 55 AND cardiovascular disease = 2 points Age greater than or equal to 55 and hypertension = 1 point NOTE: At the time of testing, patients are instructed to obtain the result by calling the [employer] result line or by checking the online services account. documented in this encounter Plan of Treatment Not on filedocumented as of this encounter Procedures Procedure Name Priority Date/Time Associated Diagnosis Comme nts SARS COV-2 RNA, Routine 01/26/2021 7:08 AM Diabetes Mellitus T ype Results for this PCR, VARIES CDT 2 Hyperglycemia (HCC) procedure are in Dyspnea the results section. documented in this encounter Results (ABNORMAL) SARS CoV-2 RNA, PCR, Varies Asymptomatic (01/26/2021 7:08 AM CDT) [facility] Method Time Signature SARS CoV-2 Swab, 01/26/2021 DTL RNA, PCR, Nasopharynx 12:29 PM Source CDT SARS CoV-2 Detected (A) Undetected 01/26/2021 DTL RNA, PCR 12:29 PM CDT Comment: SARS-CoV-2 RNA present. ----ADDITIONAL INFORMATION---- This RT-PCR test has received Emergency Use Authorization (EUA) by the .S. Food and Drug Administration an d is used per sales apprentice's instructions. Performance characteristics were verified by [facility] in a manner consistent with CLIA requirements. Visit the CDC website: https://www.cdc.g ov/coronavirus/ for the most recent guidelines on Coron avirus testing. Fact Sheet for Healthcare Providers: https://www.fda.gov/media/114233/downloa d Fact Sheet for Patients: https://www.fda.gov/media/169241/downloa d Specimen Anatomical Collection Method Collection Time Receive d Time (Source) Location / / Volume Laterality Varies 01/26/2021 7:08 AM 7:44 (Nasopharynx) CDT AM CDT Dajuan Hercules M.D. LAB MICROBIOLOGY - GENERAL O RDERABLES Performing Organization Address City/State/[facility] Code Phon e Number [facility] - [address] [place], [place] [address] [facility] [place] [address] Laboratories-[facility] [address] documented in this encounter Visit Diagnoses Diagnosis Diabetes Mellitus Type 2 Hyperglycemia ( HCC) Dyspnea documented in this encounter Additional Health Concerns Infection Onset Date Last Indicated Resolved Time COVID19 Pending 01/26/2021 01/26/2021 01/26/2021 12:29 PM CDT documented as of this encounter Care Teams Apartment Community Manager Relationship Specialty Start Date End Date None Reported, Pcp PCP - General Family Medicine 01/25/2102/21 documented as of this encounter
--- OUTSIDE RECORDS SUMMARY | 2022-04-02 01:28 | XMS_ITS | Encounter Summary ---
:1965 Author Organization [facility] Address [address] [place] [address] Care Team Providers Name Role Phone Elsewhere, Pcp Primary Care Provider Unavailable Encounter Details Date Type Department Care Team Description 12/05/2020 Orders Only [facility], Aniyah Sparrow M.D. [facility], [facility] [address] [facility] Building, [address] [place], [place] [address] [facility] [address] [place] [address] [phone] Social History Tobacco Use Types Packs/Day Years Used Date Smoking Tobacco: Never Assessed Alcohol Habits Answer Date Recorded How often [...] More than 4 times per year 02/09/2021 latter-day services? Do you belong to any clubs [...] or slept in a snf (including now)? Sex Assigned at Date Recorded [...] documented as of this encounter Care Teams Wafer Fab Operator Relationship Specialty Start Date End Date Elsewhere, Pcp PCP - General 02/22/21 documented as of this encounter
--- OUTSIDE RECORDS SUMMARY | 2022-04-02 01:28 | XMS_ITS | Encounter Summary ---
:1965 Author Organization [facility] Address [address] [place] [address] Care Team Providers Name Role Phone Unavailable Primary Care Provider Unavailable Encounter Details Date Type Department Care Team Description 12/06/2020 Orders Only Division of Pending Sale To [facility] Ameya Lemus es Mellitus Type 2 Internal Medicine, Daniel Eason Hyperglycemia ([facility]) [place], in [address] [facility] (Primary Dx) [place], [place] [address] [place] [address] [place], [place] [phone] [address] (Work) [phone] Social History Tobacco Use Types Packs/Day Years [...] or slept in a assisted (including now)? Sex Assigned at Date Recorded Male 02/09/2021 2:11 PM CDT documented as of this encounter Plan of Treatment Not on filedocumented as of this encounter Visit Diagnoses Diagnosis Diabetes Mellitus Type 2 Hyperglycemia ( HCC) - Primary documented in this encounter
--- OUTSIDE RECORDS SUMMARY | 2022-04-02 01:28 | XMS_ITS | Encounter Summary ---
:1965 Author Organization [facility] Address [address] [place] [address] Care Team Providers Name Role Phone Unavailable Primary Care Provider Unavailable Reason for Visit Reason Comments Becca / Angeli Encounter Details Date Type Department Care Team Description 12/13/2020 Clinical Communication Division of LemusBecca / Angeli Formerly [facility], [facility] Internal Phuong Hawley M.D [facility] [address] [place] [address] in [place] [id number] [place] [phone] [address] [facility] (Work) [place], [place] [phone] [address] (Fax) [phone] Social History Tobacco Use Types Packs/Day Years [...] More than 4 times per year 02/09/2021 bahai services? Do you belong to any clubs [...] place to sleep or slept in a fpc (including now)? Sex Assigned at Date Recorded Male 02/09/2021 2:11 PM CDT documented as of this encounter Miscellaneous Notes Telephone Encounter - Denisse Barrios - 12/15/2020 7:44 AM CDT Faxed Back Telephone Encounter - Denisse Barrios - 12/13/2020 10:17 AM CDT Note created for tracking purposes only. Paperwork received via: FAX from: Angeli Type of paperwork: Diabetic written order ~Hospital Patient~ Paperwork was sent to you via e mail for your review, signature, and date. Thanks Denisse [phone] documented in this encounter Plan of Treatment Not on filedocumented as of this encounter Visit Diagnoses Not on filedocumented in this encounter
--- OUTSIDE RECORDS SUMMARY | 2022-04-02 01:28 | XMS_ITS | Encounter Summary ---
:1965 Author Organization [facility] Address [address] [place] [address] Care Team Providers Name Role Phone None Reported, Pcp Primary Care Provider Unavailable Reason for Referral Outpatient (Routine) - Closed Specialty Diagnoses / Procedures Referred By Contact Refer red To Contact Diagnoses Pneumothorax Unspecified Hypertension Essential Primary Atherosclerotic Heart Disease [place] Coronary Artery With Other Forms Angina Pectoris (Stable Angina/Angina Of Exertion) (HCC) Diabetes Mellitus Type 2 Hyperglycemia (HCC) [facility] Failure Heart (HCC) GEOVANNY C.N.P., M.S.N. Procedures ECG 12 [address] [place] [address] Referral ID Status Reason Start Date Expiration Date Visits Requ ested Visits Authorized [id number] Closed 02/03/2021 02/03/2022 1 1 utpatient (Routine) - Closed Specialty Diagnoses / Procedures Referred By Contact Refer red To Contact Diagnoses Pneumothorax Unspecified Hypertension Essential Primary Atherosclerotic Heart Disease [place] Coronary Artery With Other Forms Angina Pectoris (Stable Angina/Angina Of Exertion) (HCC) Diabetes Mellitus Type 2 Hyperglycemia (HCC) [facility] Failure Heart (HCC) Colt SMALL.N.P., M.S.N. Procedures Echo Transthoracic (TTE) [address] [place] [address] Referral ID Status Reason Start Date Expiration Date Visits Requ ested Visits Authorized [id number] Closed 02/03/2021 02/03/2022 1 1 Reason for Visit Reason Comments Triage Encounter Details Date Type Department Care Team Description 01/27/2021 Clinical Communication Department of Field Artillery Crewmember, [facility] Cardiovascular Medicine Anita Francisco in [facility] [address] [place] [address] Social History Tobacco Use Types Packs/Day [...] slept in a long term (including now)? Sex Assigned at Date Recorded Male 02/09/2021 2:11 PM CDT documented as of this encounter Miscellaneous Notes Telephone Encounter - Maxine Cosme R.N. - 02/03/2021 10:06 AM CDT Images from the original note were not included. Pre-appointment cardiology triage/record review. Information collected has not been verified by the patient. Appointment triage team does not establish a relationship with the patient. For any questions, please contact patient's primary provider. Referring Department: Pulm Clinical Question: follow up HF, CAD Cardiac History: CAD -NSTEMI -PCI 12/2019 HF Cardiomyopathy Pertinent Medical/Surgical History: Pneumothorax 12/17 -Respiratory Arrest HTN DM2 COVID-19 Infection (+12/2020) Pleural Effusion Testing/Consultations: 01/29/21 -Chest CT: Interval enlargement of a now moderate to [...] tube with clearing of probable parenchymal hemorrhage. 01/25/21 -Labs: Prothrombin Time 12.6, NTpBNP 445, Hgb 12.3, A1C 6.9, BMP -ECG: Sinus Rhythm w PVCs 100 bpm 12/02/20 -Cath: Coronary artery dominance is left. Normal left main coronary. The proximal left anterior descending artery is 20% obstructed by a tubular lesion. The middle left anterior descending artery is 50% obstructed by a discrete lesion and 40% obstructed by a tubular lesion. The distal left anterior tulio cending artery is 20% obstructed by a tubular lesion. The distal circumflex artery is 50% obstructedby a discrete lesion. The first obtuse marginal is 50% obstructed by a discrete lesion. The proximal right coronary arteryis 20% obstructed by a discrete lesion. The distal segment is small size. Patent stent in the mid LAD with minimal instent restenosis. -Echo: 1. Mildly enlarged left ventricular chamber size, regional wall motion abnormalities were present (see wall motion graphics), calculated 2-D biplane volumetric ejection fraction 44 %. 2. Indeterminate left ventricular filling pressure. 3. Normal right ventricular chamber size, normal systolic function, estimated right ventricular systolic pressure 45 mmHg (right atrial pressure of 10 mmHg). 4.No hemodynamically significant valvular heart disease. 5. No pericardial effusion. OSMR: Care Everywhere/Media ECG 01/26/2020 documented in this encounter Plan of Treatment Not on filedocumented as of this encounter Results (ABNORMAL) NT-Pro B-Type Natriuretic Peptide (BNP) (02/09/2021 [...] LAB BLOOD ADD- ON Performing Organization Address City/[facility] Code Phon e Number [facility] - [address] [place] [address] Laboratories[address] (ABNORMAL) Lipid Panel (02/09/2021 8:17 AM CDT) P athologist Signature Cholesterol, 83 mg/dL 02/09/2021 DTL [...] LAB BLOOD ADD- ON Performing Organization Address City/State/[facility] Code Phon e Number [facility] - [address] [place] [address] [facility] [place] [address] Laboratories-[address] Basic Metabolic Panel (02/09/2021 8:17 AM CDT) P athologist Signature Potassium, S 5.1 3.6 - [...] 02/09/2021 DTL Black/ mL/min/BSA 9:[address] [place] Comment: ----ADDITIONAL INFORMATION---- Estimated GFR calculated using [...] AM 02/10/20 9:11 Venous) CDT AM CDT Erica Bautista APRN, C.N.P., M.S.N. LAB BLOOD ADD- ON Performing Organization Address City/State/ZIP Code Phon e Number [facility] - [facility] [address] [place], [place] [address] [facility] [place] [address] Laboratories-[facility] [address] (ABNORMAL) CBC with Differential, Blood (02/09/2021 8:17 AM CDT) [facility] gist Method Time Signature Hemoglobin 13.1 (L) [...] 8:45 Venous) CDT AM CDT Erica Bautista APRN, C.N.P., M.S.N. LAB BLOOD ADD- ON Performing Organization Address City/State/ZIP Code Phon e Number [facility] - [address] [place], [place] [address] [facility] [place] [address] Laboratories-[facility] [address] ECG 12 Lead (02/09/2021 7:56 AM CDT) athologist Signature Ventricular Rate 73 BPM MUSE ECG/Min UT Interval 154 ms MUSE QRSD Interval 90 ms MUSE QT Interval 406 ms MUSE QTC Interval 447 ms MUSE P Campbell 28 degrees MUSE R Campbell 55 degrees MUSE T Wave Campbell 56 degrees MUSE Specimen Anatomical Collection Method Collection Time Receive d Time (Source) Location / / Volume Laterality 02/09/2021 7:56 AM 8:08 CDT AM CDT Impressions MUSE - 02/09/2021 8:08 AM CDT Normal sinus rhythm Possible Anterior infarct Slight ST elevation in Anteroseptal lead s When compared with ECG of 25-JAN-2021 09 :03, Premature ventricular complexes are no l onger present Vent. rate has decreased Reviewed by DEBBY Padron Narrative This result has an attachment that is no t available. Procedure Note Bobby Shafer Jr., M.D. - 02/09/2021For matting of this note might be different from the original. IMPRESSION: Normal sinus rhythm Possible Anterior infarct Slight ST elevation in Anteroseptal lead s When compared with ECG of 25-JAN-2021 09 :03, Premature ventricular complexes are no l onger present Vent. rate has decreased Reviewed by DEBBY Padron Erica Bautista APRN, C.N.P., M.S.N. ECG ORDERABLES Performing Organization Address City/[facility] Phon e Number MUSE MUSE NA (TTE) 2D LIMITED WITH COLOR AND DOPPLER (02/07/2021 4:24 PM CDT) athologist Signature Ejection 39 MC CV EIMS [...] was performed but not reported based on head of biology's judgment. ??RIGHT VENTRICLE: ??Normal ri ght ventricular [...] For the complete report, see the Order-L Trelligenceel Documents. Narrative 02/07/2021 4:39 PM CDT For the complete report, see the Order-L evel Documents. Final Impressions 1. Moderate-severely enlarged left [...] original. For the complete report, see the Order-L evel Documents. Final Impressions 1. Moderate-severely enlarged left [...] was performed but not reported based on head of biology's judgment. RIGHT VENTRICLE: Normal right ventricular chamber [...] see the Order-L evel Documents. Erica Bautista APRN, C.N.P., M.S.N. CV ECHO PROCED URES documented in this encounter Visit Diagnoses Diagnosis Failure Heart (HCC) - Primary Pneumothorax Unspecified Hypertension Essential Primary Atherosclerotic Heart Disease [place] Cor onary Artery With Other Forms Angina Pectoris (Stable Angina/Angina Of Exertion) (HCC) Diabetes Mellitus Type 2 Hyperglycemia ( HCC) Pneumothorax Unspecified Hypertension Essential Primary Atherosclerotic Heart Disease [place] Cor onary Artery With Other Forms Angina Pectoris (Stable Angina/Angina Of Exertion) (HCC) Diabetes Mellitus Type 2 Hyperglycemia ( HCC) Failure Heart (HCC) documented in this encounter Additional Health Concerns Infection Onset Date Last Indicated Resolved Time COVID19 01/26/2021 01/26/2021 02/15/2021 4:55 AM CDT documented as of this encounter Care Teams Account Manager Employee Benefits Relationship Specialty Start Date End Date None Reported, Pcp PCP - General Family Medicine 01/25/2102/21 documented as of this encounter
--- OUTSIDE RECORDS SUMMARY | 2022-04-02 01:29 | XMS_ITS | Encounter Summary ---
:1965 Author Organization [facility] Address [address] [place] [id number] Care Team Providers Name Role Phone Unavailable Primary Care Provider Unavailable Reason for Visit Reason Comments Chest Pain Bradycardia Encounter Details Date Type Department Care Team Description 11/28/2020 - [facility] Krystian Cason M.D. [address] [place] [phone] Edema Pulmonary (HCC) (Primary Dx); 12/[facility] [address] [place] [phone] Other Pneumothorax; [facility], Kelsi Aguilar M.D. [address] [place] [phone] Myocardial Infarction Old; Isidro Mendez M.D. [address] [place] [phone] Atherosclerotic Heart Disease [place] Cor onary Artery With Other Forms Angina Pectoris (Stable Angina/Angina Of Exertion) (HCC); Kay Wilkerson Charles F Jr., M.D. [address] [place] [phone] Acute Respiratory Failure With Hypoxia ( HCC); Floor Hypoxemia [address] [place] [phone] Social History Tobacco Use Types Packs/Day Years [...] 02/09/2021 organizations such as alevism groups, unions, fraternal or athletic groups, or [...] Sign Reading Time Taken Comments Blood Pressure 129/74 12/05/2020 1:30 PM CDT Pulse 64 12/05/2020 1:30 PM CDT Temperature 36.3 ??C (97.3 ??F) 12/05/2020 1:30 PM CDT Respiratory Rate 15 12/05/2020 1:30 PM CDT Oxygen Saturation 97% 12/05/2020 8:20 AM CDT Inhaled Oxygen Concentration - - Weight 93 kg (205 lb 0.4 oz) 12/04/2020 8:00 AM CDT Height 177 cm (5' 9.69) 11/28/2020 6:45 AM CDT Body Mass Index 29.68 11/28/2020 6:45 AM CDT documented in this encounter Discharge Summaries Prince Powers M.D. - 12/05/2020 4:36 PM CDT DISCHARGE SUMMARY BRIEF OVERVIEW Hospital: [facility] Discharge Provider: Isidro Powell M.D. Primary Team: [facility] Pulmonary Medicine Hospital Admission Date: 11/28/2020 Discharge Date: 12/05/2020 PRINCIPAL DIAGNOSIS Edema Pulmonary (HCC) SECONDARY DIAGNOSES Principal Problem: Multifactorial hypoxia Active Problems: Diabetes Mellitus Type 2 Hyperglycemia (HCC) Hypertension Essential Primary Coronary Stent Status Post Acute Respiratory Failure With Hypercapnia (HCC) Acute Respiratory Failure With Hypoxia (HCC) Atherosclerotic Heart Disease [place] Coronary Artery With Other Forms Angina Pectoris (Stable Angina/Angina Of Exertion) (HCC) Acute on chronic systolic heart failure Pneumothorax Unspecified Resolved Problems: * No resolved hospital problems. * Surgery Information This Encounter Past Procedures (12/05/2019 to Today) Date Procedures Providers Location 12/02/2020 Coronary Angiography Luis Wells M.D.Omer, Mohamed A, M.B., B.Ch. [facility] DISCHARGE DISPOSITION Home or Self Care [1] ACTIVE ISSUES REQUIRING FOLLOW UP - Start metformin per endocrine instructions - Continue Plavix (clopidogrel) 75mg OD through end of December 2020 to complete DAPT 12 months s/pcoronary stent - Continue aspirin 81mg daily at bedtime - Continue atorvastatin 80mg daily at bedtime. - Continue new dose of losartan 100mg OD. Goal to uptitrate to 150mg OD. - Continue on Lopressor (metoprolol) 50mg twice daily. Goal is to convert to succinate at d/c and uptitrate to 200mg OD. - Requires outpatient f/u with cardiology either here or locally. - Requires outpatient f/u with PCP in [place]. OUTPATIENT FOLLOW UP For appointment details refer to your Patient Appointment Guide. TEST RESULTS PENDING AT DISCHARGE Pending Labs None DETAILS OF HOSPITAL STAY REASON FOR ADMISSION Edema Pulmonary (HCC) Other Pneumothorax HOSPITAL COURSE Mr. Fairbanks with history of hypertension and a recent cardiac stents placed in December presented with respiratory arrest. He is from [place] and woke up day of admission with acute onset shortness ofbreath that Mr. Fairbanks described as wet. He also reportedly noted left arm tingling and pain and was concerned he was having a heart attack. His fiance drove him to the nearest gas station where they called EMS. He arrived to the [facility] ED with [facility]. On scene he was diaphoretic and ashen, his breathsounds were wet bilaterally. CPAP versus BPAP was trialed but he was quickly intubated, sedated and paralyzed. He was started on a nitroglycerin drip. ED Course In the ED an initial VBG was acidotic with pH 7.02 and CO2 >100, he was quite hypoxic despite 100% FiO2, blood sugar was 470, EKG showed sinus tachycardia with HR in the 110s. He had a leukocytosis to 17.7, was hyperkalemic to 5.3, creatinine 1.01, initial troponin was 60, BNP was 1197. Initial CXRshowed significant pulmonary edema and left deep sulcus sign but no definitive pneumothorax, needle decompression was performed. A CXR 30 minutes later demonstrated a new lucency along the left cardiacborder - potential small pneumothorax. A chest tube was placed and a repeat CXR 45 minutes later showed the pigtail catheter, a new airspace opacity in the left mid lung. He was sedated with Propofol and Fentanyl and received rocuronium once to maintain adequate ventilation and facilitate procedures. The nitroglycerin gtt has been weaned off but he did receive a second dose of rocuronium. The CCU wasconsulted in the ED given concern for cardiogenic shock, they performed a bedside echo but did not see any clear cardiogenic shock. VBG an hour after he arrived was improving pH 7.12/CO2 97 but worsening hyperkalemia. Lactate was normal. COVID was negative. Given mechanical ventilation and concern forpulmonary primary process he was admitted to the MICU for further cares. MICU Course In the ICU, he was continued on mechanical ventilation. CT scan did reveal pigtail with course through lung parenchyma. Thoracic surgery was consulted and proceeded with surgical chest tube placement at the bedside. They recommended to clamp the pigtail and potentially remove it after 24 hours. He wascontinued on aggressive diuresis and maintained net negative volume. He was briefly on vasopressors and continued on antibiotics for community-acquired pneumonia coverage. His sedation was weaned off and he remained hemodynamically stable. He was successfully extubated and needed oxygen through nasal cannula. Surgical chest tube was maintained to water seal and pigtail clamped as recommended by thoracic surgery. In the morning of 11/29, thoracic surgery removed the pigtail at bedside without any complication. He recommended continuation of surgical chest tube and reassessing the need in 24 hours. He became hypertensive therefore his home antihypertensives were resumed. Echocardiogram was performed on 11/29 assess cardiac function and etiology of pulmonary edema which was his presenting diagnosis. He remained hemodynamically stable without any further complication and therefore was transferred out of ICU on 11/29/2020 to general care. Pulmonology Service Patient transferred to pulmonology service on 11/29/20. He was continued on treatment for community acquired pneumonia where he finished a total of a 5 day course of antibiotics. His pulmonary edema was further evaluated with echocardiogram which showed an EF of 44% and regional wall motion abnormalities in the anterior septal regions. Prior ECHO results from the patient's customer service agent showed an EF of 50-55% with similar distribution of anterior septal wall abnormalities on 07/19/20. Chest tube was removed by thoracic surgery on 12/01/20. CXR showed evidence of a small-moderate left pneumothorax on 12/01/20 and was managed conservatively. Cardiology was consulted 11/30/20 and patient underwent coronary angiography on 12/02/20. Coronary angiography showed no new significant occlusions and no surgical intervention was performed. Patient continued to remain stable while weaning nasal cannula oxygen therapy. Home oxygen assessment was performed 12/05/20 and demonstrated patient required 1L NC while sleeping. Cardiology recommended a modified medical regimen to manage s/p December 2019 coronary stent and active essential hypertension. Diabetes reproductive healthcare assistant educated patient on diabetes management and devised a discharge medical therapy regimen. CONSULTS ORDERED DURING THIS ADMISSION IP CONSULT TO THORACIC SURGERY IP CONSULT TO DRAWING IN MACHINE TENDER DOUGH MOLDER HAND IP CONSULT TO DIABETES IP CONSULT TO DIETITIAN IP CONSULT TO SPECIAL ED ASSISTANT IP CONSULT TO CARDIOLOGY IP CONSULT TO INTERVENTIONAL PULMONOLOGY CONDITION AT DISCHARGE improved Discharge instructions were provided to the patient and caregiver(s). Javier Chen, GEOVANNY, C.N.P., D.N.P. - 11/29/2020 11:50 AM CDT SUBJECTIVE REASON FOR TRANSFER No longer needs ICU care CONDITION AT TRANSFER: Stable OBJECTIVE PHYSICAL EXAMINATION Please see daily progress note ASSESSMENT / PLAN SUMMARY OF CARE Mr. Fairbanks with history of hypertension and a recent cardiac stents placed in December presented with respiratory arrest. He is from [place] and woke up this morning with acute onset shortness of breath that Mr. Fairbanks described as wet. He also reportedly noted left arm tingling and pain and was concerned he was having a heart attack. His fiance drove him to the nearest gas station where they called EMS. He arrived to the [facility] ED with [facility]. On scene he was diaphoretic and ashen, his breath sounds were wet bilaterally. CPAP versus BPAP was trialed but he was quickly intubated, sedated and paralyzed. He was started on a nitroglycerin drip. In the ED an initial VBG was acidotic with pH 7.02 and CO2 >100, he was quite hypoxic despite 100% FiO2, blood sugar was 470, EKG showed sinus tachycardia with HR in the 110s. He had a leukocytosis to 17.7, was hyperkalemic to 5.3, creatinine 1.01, initial troponin was 60, BNP was 1197. Initial CXRshowed significant pulmonary edema and left deep sulcus sign but no definitive pneumothorax, needle decompression was performed. A CXR 30 minutes later demonstrated a new lucency along the left cardiacborder - potential small pneumothorax. A chest tube was placed and a repeat CXR 45 minutes later showed the pigtail catheter, a new airspace opacity in the left mid lung. He was sedated with Propofol and Fentanyl and received rocuronium once to maintain adequate ventilation and facilitate procedures. The nitroglycerin gtt has been weaned off but he did receive a second dose of rocuronium. The CCU wasconsulted in the ED given concern for cardiogenic shock, they performed a bedside echo but did not see any clear cardiogenic shock. VBG an hour after he arrived was improving pH 7.12/CO2 97 but worsening hyperkalemia. Lactate was normal. COVID was negative. Given mechanical ventilation and concern forpulmonary primary process he was admitted to the MICU for further cares. In the ICU, he was continued on mechanical ventilation. CT scan did reveal pigtail with course through lung parenchyma. Thoracic surgery was consulted and proceeded with surgical chest tube placement at the bedside. They recommended to clamp the pigtail and potentially remove it after 24 hours. He wascontinued on aggressive diuresis and maintained net negative volume. He was briefly on vasopressors and continued on antibiotics for community-acquired pneumonia coverage. His sedation was weaned off and he remained hemodynamically stable. He was successfully extubated and needed oxygen through nasal cannula. Surgical chest tube was maintained to water seal and pigtail clamped as recommended by thoracic surgery. In the morning of 11/29, thoracic surgery removed the pigtail at bedside without any complication. He recommended continuation of surgical chest tube and reassessing the need in 24 hours. He became hypertensive therefore his home antihypertensives were resumed. Echocardiogram was performed on 11/29 assess cardiac function and etiology of pulmonary edema which was his presenting diagnosis. He remained hemodynamically stable without any further complication and therefore was transferred out of ICU on 11/29/2020 to general care. RECOMMENDATIONS: -Continue antibiotics to cover for community-acquired pneumonia. Currently receiving azithromycin and ceftriaxone de-escalated to cefdinir beginning tomorrow. -Continue daily diuresis to maintain net negative volume. -Follow echocardiogram results -Surgical chest tube in place. Continue on water seal and monitor. Further recommendation from [facility]. -Hemoglobin A1c 10, DCS consulted for diabetes management. Will need diabetes education. -Started on long-acting insulin. Might need transition to p.o. anti glycemic. SUMMARY DIAGNOSES: #1 Edema Pulmonary (HCC) #2 Diabetes Mellitus Type 2 Hyperglycemia (HCC) #3 Hypertension Essential Primary #4 Coronary Stent Status Post #5 Acute Respiratory Failure With Hypercapnia (HCC) #6 Acute Respiratory Failure With Hypoxia (HCC) documented in this encounter Discharge Instructions Discharge InstructionsAnais Choi - 12/05/2020 3:04 PM CDT You were discharged from the Pulmonary Medicine Service. Please identify this service name if you call with questions after hospitalization. BLOOD GLUCOSE MANAGEMENT: Monitor blood glucose twice daily before morning and evening meal. Blood glucose goal is 100-140 mg/dL. Most recent A1c on record: Lab Results Component Value Date HGBA1C 10.3 (H) 11/28/2020 Follow-up with primary care provider within 7-10 days of discharge or earlier if blood glucose values are consistently out of goal range. As Diabetes and Nutritional Education is important to your diabetes management, yearly follow up with a local Cigarette Catcher and Dietitian is recommended. Please check with your insurance company asdiabetes education visits are commonly covered. Your primary care provider can provide referrals foreducation. AttachmentsThe following attachments cannot be sent through Care Everywhere. Metformin (By mouth) ([place] Citizen)Clopidogrel (By mouth) ([place] Citizen)Acetaminophen (By mouth) ([place] Citizen)Oxycodone/Acetaminophen (By mouth) ([place] Citizen)Metoprolol (By mouth) ([place] Citizen)Pantoprazole (By mouth) ([place] Citizen)documented in this encounter Medications at Time of Discharge Medication Sig Dispensed Refills Start Date End Date multivitamin tablet Take 1 tablet by 0 mouth daily. Diabetic Complete Multivitamin acetaminophen (TYLENOL) TAKE 2 TABLETS BY 100 tablet 0 12/05 500 mg tablet MOUTH EVERY SIX HOURS aspirin [address] tablet TAKE 1 TABLET BY 30 tablet 0 2020 MOUTH EVERY NIGHT AT BEDTIME atorvastatin (LIPITOR) TAKE 1 TABLET BY 15 tablet 0 021 80 mg tablet MOUTH EVERY NIGHT AT BEDTIME blood sugar diagnostic USE DIRECTED TWO 100 each 1 08/2020 strips TIMES A DAY blood-glucose meter Test as directed for 1 each 0 2020 [facility] diabetes control. metoprolol succinate TAKE 1 TABLET BY 60 tablet 1 1 (TOPROL-XL) 100 mg 24 MOUTH DAILY, DO NOT hr tablet CRUSH OR CHEW clopidogreL (PLAVIX) 75 TAKE 1 TABLET BY 51 tablet 0 202012/05/2021 mg tablet MOUTH DAILY oxyCODONE-acetaminophen TAKE ONE-HALF TABLET 10 tablet 0 12/05/2021 (PERCOCET) 10-325 mg BY MOUTH EVERY FOUR per tablet HOURS NEEDED FOR PAIN clopidogreL (PLAVIX) 75 Take 1 tablet (75 mg 51 tablet 0 12/06/2020 mg tablet total) by mouth daily. lancets 2 each daily. 100 each 1 12/01/2020 12/06/2020 losartan (COZAAR) 100 Take 1 tablet (100 [...] documented as of this encounter Progress Notes Aleena Ervin, GEOVANNY, C.N.P. - 12/05/2020 10:35 AM CDT SUBJECTIVE LOS: 7 days DCS continues to follow this 55 y.o. year-old male for diabetes admitted on 11/28/2020 for pulmonary edema PREADMISSION THERAPY: None OBJECTIVE Patient is in no acute distress, lying in bed. Family is present at the bedside. Reviewed hospital insulin regimen. Reviewed dismissal plan. Blood glucose results in last 24 hours: Recent Labs 12/05/20 0826 12/05/20 0658 12/04/20 2204 12/04/20 1754 12/04/20 1237 GLUCOSEPOC 157 H -- 180 H 135 204 H GLUCOSE -- 113 -- -- -- Yesterday, given: Lantus insulin 8 units at hs and NovoLog insulin 1 unit per 10 grams of carbohydrate with meals (6-6-6 with respective meals). Steroids: None Current Diet Adult Diet Regular; 60 gm Carbs (per meal) starting at 12/02 2001 VITALS Temperature: 36.3 ??C Heart Rate: 73 Resp Rate: 20 Blood Pressure: 144/77 BP Location: Left arm;Upper SpO2: 97 % Flow Rate (L/min): 1 L/min Height: 177 cm Weight: 93 kg Body mass index is 29.68 kg/m??. LABORATORY Lab Results Component Value Date CREATININE 0.88 12/05/2020 Estimated Creatinine Clearance: 126.2 mL/min (by C-G formula based on SCr of 0.88 mg/dL). ASSESSMENT / PLAN #1 Diabetes mellitus, type 2, uncontrolled with hyperglycemia A1c 10.3% PLAN - Blood glucose monitoring: four times daily - Glucose goal: 140-180 mg/dL - Basal: Lantus 8 units at bedtime. - Mealtime: NovoLog 1 unit for every 10 grams of carbohydrates consumed with meals. - Correction scale: NovoLog moderate correction scale three times a day - DCS will evaluate and adjust insulin doses as indicated to achieve glycemic goal. ANTICIPATED DISMISSAL PLAN: Start Metformin 500 mg by mouth once daily and increase weekly by 500 mg until at goal of 1000 mg bymouth twice daily. Blood glucose frequency: twice daily Goal: 100-140 mg/dL Please page DCS within 24 hours prior to hospital dismissal for final dismissal recommendations. Prescription for a new meter, testing supplies and Metformin sent to [facility]. Discussed above plan with patient who is alert and oriented and in agreement. DCS Pager [phone] will continue to follow. Call primary service for diabetes concerns between [phone]. Primary service to contact DCS via hospital media operator for questions. Liv Martins, R.R.T., L.R.T. - 12/05/2020 9:15 AM CDT 12/05/20 0915 Home Oxygen Assessment Rest/Awake Room Air SpO2 94 Percent Exercise/Activity Room Air SpO2 93 Percent Home oxygen assessment completed. Patient did not require supplemental oxygen. Electronically signed by: Liv Martins R.R.T., L.R.T. 12/05/20 9:17 AM CDT Calixto Bella R.R.T., Andrea. - 12/05/2020 7:56 AM CDT 12/05/20 0756 Nocturnal Oxygen Assessment Asleep Room Air SpO2 87 Percent (SpO2 87% on room air) Oxygen Flow Rate 1 L/min (1lpm oxygen via nasal cannula) Nocturnal oxygen assessment completed. Patient SpO2 87% for 5 minutes or greater. Any desaturations on trend lower than patient SpO2 is considered artifact. Christian Che - 12/05/2020 7:33 AM CDT [facility] Pulmonary Medicine [facility] PROGRESS NOTE SUBJECTIVE Mr. Fairbanks was resting comfortably this morning in his bed. He complains of persistent breathlessness. No complaints regarding pain management or rash. He remains clinically stable on continuous 1L NC at night and RA during the day. Day 3 s/p coronary angiography. I have reviewed the current medication list. OBJECTIVE VITAL SIGNS Temperature: [36.3 ??C-36.9 ??C] 36.3 ??C Heart Rate: [65-80] 73 Resp Rate: [14-23] 20 Blood Pressure: (144)/(77) 144/77 SpO2: [86 %-97 %] 97 % Flow Rate (L/min): [1 L/min] 1 L/min Pulse Rate: [63-81] 72 PHYSICAL EXAM General: Alert, interactive, not acutely ill. Skin: resolving pruritic patchy red rash. Lungs: Clear to auscultation. Bibasal diminished breath sounds. No wheezes or crackles. Heart: Regular rate and rhythm. No murmurs appreciated. No lower extremity edema. Abdomen: Soft, flat, bowel sounds normoactive, nontender, nondistended, no palpable masses or organomegaly. Mental: Mood and affect congruent. Alert and oriented. Attention intact. No evidence of disorganizedthinking. Reliable history acid pumper. DIAGNOSTICS I have personally reviewed the laboratory data and imaging since admission, and in/outs for past 72 hours. (12/05/20) Nocturnal Home Oxygen Assessment: Requires 1L NC supplemental oxygen. 87% RA asleep. (12/05/20) Daytime Home Oxygen Assessment: Does not require supplemental oxygen. 94% RA quiet wakefulness and 93% RA on activity. ASSESSMENT / PLAN Mr. Fairbanks is hospitalized on [facility] Pulmonary Medicine [facility] for evaluation and management of multifactorial hypoxemia in the setting of left-sided pneumothorax, lung injury from pleural catheter placement, probable community- acquired pneumonia, and cardiogenic pulmonary edema from acute coronary event 11/25. Plan to d/c on 1L NC for sleep requirements. Plan to discharge today afternoon. Organize f/u with PCP in [place]. #1??Coronary artery disease with ischemic cardiomyopathy with??acute coronary since November 25??with resultant??acute cardiogenic pulmonary edema #2 Hypertension Cardiac angiogram completed 12/02 and did not reveal any culprit lesions never intervened on. As per cardiology, uptitrating medications can be done as outpatient and medical management goal is as follows: ?? - Continue clopidogrel 75mg OD through December 2020 to complete DAPT 12 months s/p coronary stent - Continue aspirin 81mg OD - Continue atorvastatin 40mg nocte. Reasonable to uptitrate to 80mg. - Continue new dose of losartan 100mg OD. Goal to uptitrate to 150mg OD. - Uptitrate metoprolol as tolerated -- increase metoprolol tartrate 50 mg tonight. Goal is to convert to succinate at d/c and uptitrate to 200mg OD. - Requires outpatient f/u with customer service agent from [place]. #3??Left pneumothorax-possibly??iatrogenic??after needle decompression attempt for suspected tensionpneumothorax #4??Iatrogenic lung injury from left pleural catheter placement #5??Probable community-acquired pneumonia #6??Acute??multifactorial??hypoxia #7S/p Hemoptysis due to 4 and 5 #8 musculoskeletal chest pain, at site of prior chest tube He has completed his course of antibiotics to cover for possible community- acquired pneumonia. Chestx-rays have remained stable since pulling chest tube, and small pneumothorax appears to be a improving. Plan: - Weaned off daytime oxygen. Still requires 1L NC at night. RT assessment suggests patient qualifiesfor DME Home Oxygen Therapy. - Pain control with oxycodone 5 mg q3h, tylenol, lidocaine patches in hospital. - Plan to d/c with Percocet (Oxycodone HCl 10mg and Acetaminophen 325mg) 0.5 tablet twice daily x3 days (8 tablets) ?? #9??Diabetes mellitus type 2 ?? - DCS following and have provided patient with education and d/c management plan. #10??Intermittent left upper extremity pain-under observation Current Activity/Mobility: BMAT Level 4 (Able to stand and walk; needs staff assist if fall risk factors identified) Fall Injury Prevention: I have discussed My Plan for Safe Activity with the patient. Diet: general diet Tubes/lines: PIV VTE prophylaxis: heparin Disposition: Home with expected discharge date Surrogate Decision Maker: Spouse, Mrs. Kiarra Riley Stable to discharge criteria: Met Plan discussed with [facility] Ssis Architect, Chase Hernandez Jr., M.D., whowas present during rosales portions of the evaluation today. Please page the [facility] service pager at #[phone] with any questions. Enjoy today, Christian Che Medical Student #[id number] Associated attestation - Chase Goldstein Jr., M.D. - 12/05/2020 3:41 PM CDT I saw and evaluated the patient, participating in the rosales portions of the service. I reviewed MMSIV Christian Che's note and I agree with his findings and plan. He is significantly improved pink be dismissed today with outpatient follow-up as detailed on his dismissal summary. Discussed in detail with patient and his and questions answered. Anne Barron R.R.T. - 12/05/2020 5:10 AM CDT Nocturnal oxygen study ordered for patient. Communicated with nursing about the studying including: the importance of starting the patient on room air and calling the monitoring lab when the patient falls asleep. Answered all questions and provided pager number. End of study note: Patient required 1L of supplemental O2 for the nocturnal oxygen study. LYT Isidro Powell M.D. - 12/04/2020 2:31 PM CDT SUBJECTIVE I met [id number] with and examined Mr. Fairbanks. I participated in the bedside discussion of impressions and plans with the patient and his . I discussed the case in detail with the Chest team on rounds and assisted in the development of our team's assessment and plan. I reviewed and agree with today's progress note authored by Mr. Christian Che. Mr. Fairbanks continues to fluctuate between room air and very low-flow supplemental oxygen to maintain adequate saturations at rest. He has been ambulating frequently around the [place]. Coughing is still producing some small amounts of old appearing blood. OBJECTIVE PHYSICAL EXAMINATION General: Alert. Sitting up in the bedside chair and in no immediate distress when encountered on rounds. Resting oxyhemoglobin saturation 95-97% on supplemental oxygen 1 liter/minute. Afebrile. Lungs: Easy respirations at rest. Extremities: No lower extremity edema. DIAGNOSTICS No new blood work today. ASSESSMENT / PLAN #1 Coronary artery disease with ischemic cardiomyopathy with acute coronary syndrome November 25 with resultant acute cardiogenic pulmonary edema #2 Left pneumothorax-possibly iatrogenic after needle decompression attempt for suspected tension pneumothorax (deep sulcus sign on initial chest x-ray); residual pneumothorax after chest tube removal #3 Iatrogenic lung injury from left pleural catheter placement #4 Probable community-acquired pneumonia #5 Acute multifactorial hypoxia-improving #6 Hemoptysis due to 3 and 4 #7 Hypertension #8 Diabetes mellitus type 2 #9 Intermittent left upper extremity pain-under observation Will keep patient in hospital today to continue the supplemental oxygen wean. Furthermore, we need to arrange for outpatient post-discharge follow-up, especially if he is dismissed on some supplementaloxygen. Ambulation encouraged today, as tolerated. Questions from the patient and addressed during the encounter. Total time: 25 min. Counseling time: 15 min. Christian Che - 12/04/2020 8:12 AM CDT [facility] Pulmonary Medicine [facility] PROGRESS NOTE SUBJECTIVE Mr. Fairbanks was pleasant and off of NC this morning saturating around 90-92% SpO2. Overnight he was placed on 1L NC due to decreased to 88% SpO2. Continued mild SoB, cough productive with dark blood-tinged sputum. Yesterday a pruritic hive- like rash was discovered on right buttocks and is being managed with PRN topical Benadryl. Patient is currently on 1L NC with 95% SpO2. Current Hospitalization - 11/28/20: SOB, dry cough, diaphoresis sensation of 'drowning' and decreased consciousness. Pulmonary edema vs Pneumothorax vs CAP. Needle decompression followed by pigtail performed in ED. Admitted to MICU with acute respiratory failure and??was intubated, mechanically ventilated, needle decompressed, pigtail inserted and chest tube placed. Since been extubated (11/28), pigtail removed (11/29), chest tube removed (12/01). ?? -??Mr. Fairbanks's ECHO??(11/30/20)??revealed a diminished EF of 44%??to his prior ECHO in June 2019 of50-55%. ?? - 11/30/20: Cardiology consult suggested repeat myocardial infarction led to pulmonary edema. Recommended coronary angiography. ?? - 12/01/20: PA and Lat CXR following chest tube removal showed mod left pneumothorax and bibasilar atelectasis. Decreased in size on f/u CXR. ?? - 12/02/2020: Coronary angiography performed. Patent stent in the mid LAD with minimal in-stent restenosis. - 12/03/2020: S/p NRB mask overnight, CXR showed decreased residual left pneumothorax. Imaging also revealed a plate-like opacity in the LLL zone in a small left pleural effusion. - 12/03/2020: Cardiology and IP have agreed no further investigations are required from them at present in the inpatient setting. I have reviewed the current medication list. OBJECTIVE VITAL SIGNS Temperature: [36.5 ??C-36.9 ??C] 36.9 ??C Heart Rate: [64-90] 66 Resp Rate: [11-25] 21 Blood Pressure: (156)/(85) 156/85 SpO2: [87 %-97 %] 92 % Flow Rate (L/min): [1 L/min] 1 L/min Weight: [93 kg] 93 kg BMI (Calculated): [29.7 kg/m??] 29.7 kg/m?? Pulse Rate: [63-93] 66 PHYSICAL EXAM General: Alert, afebrile, interactive, not acutely ill. Skin: Scabs on left upper chest and axilla s/p bandage removal. No signs of infection. Patchy flat pruritic purple-red rash on right buttocks. Lungs: Clear to auscultation. No wheezes or crackles. Heart: Regular rate and rhythm. No murmurs appreciated. No lower extremity edema. Abdomen: Soft, distended, bowel sounds normoactive, nontender, nondistended, no palpable masses or organomegaly. Abdominal bruising from VTE prophylactic heparin. Last bowel motion was yesterday. Mental: Mood and affect congruent. Alert and oriented. Attention intact. No evidence of disorganizedthinking. Reliable history acid pumper. DIAGNOSTICS I have personally reviewed the laboratory data and imaging since admission, and in/outs for past 72 hours. 12/02/2020: Coronary angiography report noted LAD obstruction 20% proximal, 50% mid, 20% distal. Distal LCX is 50% obstructed, first obtuse marginal is 50% obstructed, and proimal RCA 20% obstructed. 12/03/20: CXR remained stable. Left-sided apical pneumothorax decreasing in size. Increased left basilar atelectasis. ASSESSMENT / PLAN Mr. Fairbanks is hospitalized on [facility] for evaluation and management of multifactorial hypoxemia on the background of left upper pneumothorax, pleural catheter placement iatrogenic lung injury, suspected CAP, cardiogenic pulmonary edema from acute coronary event 11/25/20. Patienthas been instructed of ongoing and discharge management plan. #??Coronary artery disease with ischemic cardiomyopathy with??acute coronary since November 25??with resultant??acute cardiogenic pulmonary edema #??Hypertension - Cardiac angiogram results completed on 12/02 revealed no necessary interventions. As per cardiology, uptitrating medications can be done as outpatient and medical management goal is as follows: - Continue clopidogrel 75mg OD through December 2020 to complete DAPT 12 months s/p coronary stent - Continue aspirin 81mg OD - Continue atorvastatin 40mg nocte. Reasonable to uptitrate to 80mg. - Continue new dose of losartan 100mg OD. Goal to uptitrate to 150mg OD. - Uptitrate metoprolol as tolerated -- increase metoprolol tartrate 50 mg tonight. Goal is to convert to succinate at d/c and uptitrate to 200mg OD. - Requires outpatient f/u with cardiology either here or locally. #??Left pneumothorax-possibly??iatrogenic??after needle decompression attempt for suspected tension pneumothorax #??Iatrogenic lung injury from left pleural catheter placement #??Probable community-acquired pneumonia #??Acute??multifactorial??hypoxia - Course of antibiotics has been completed (12/02/20), pneumothorax is decreasing in size, O2 requirements are 1L NC. - Continue to wean off NC requirements, as tolerated. - Continue to ambulate and use incentive spirometry hourly. - Continue to utilize analgesics to improve comfort and pain management. Currently on oxycodone 5mg q3h, tyelonol 1,000mg q6h. Lidocaine 5% patches. #??Diabetes mellitus type 2 ?? - DCS following and have provided patient with education and d/c management plan. # Pruritic patchy purple-red rash right buttocks - Continue to apply topical diphenhydramine PRN for itchiness. Current Activity/Mobility: BMAT Level 4 (Able to stand and walk; needs staff assist if fall risk factors identified) Fall Injury Prevention: I have discussed My Plan for Safe Activity with the patient. Diet: general diet Tubes/lines: PIV VTE prophylaxis: heparin 5,000 Units, SC, Q8H TAMEKA Disposition: Home with expected discharge date Surrogate Decision Maker: Spouse, Mrs. Kiarra Riley Stable to discharge criteria (not met): Vital signs and Functional status Plan discussed with [facility] Ssis Architect, Isidro Hough M.D., who was present during rosales portions of the evaluation today. Please page the [facility] service pager at #[phone] with any questions. Enjoy today, Christian Che Medical Student #[id number] Desiree Stone M.D. - 12/03/2020 12:24 PM CDT Interventional Pulmonary Consult Service Progress Note SUBJECTIVE No acute issues overnight. The patient had no new complaints today. He denied chest pain or shortness of breath. I have reviewed the current medication list. OBJECTIVE VITAL SIGNS Temperature: [36.4 ??C-36.7 ??C] 36.4 ??C Heart Rate: [63-96] 63 Resp Rate: [7-33] 26 Blood Pressure: (140-161)/(51-88) 147/76 Arterial Line BP: (138-143)/(75-84) 139/75 FiO2 (%): [21 %-98 %] 34 % SpO2: [85 %-100 %] 97 % Flow Rate (L/min): [3 L/min-10 L/min] 10 L/min Pulse Rate: [62-94] 62 Intake/Output Last 24 Hours: Intake/Output Summary (Last 24 hours) at 12/03/2020 1224 Last data filed at 12/03/2020 0900 Gross per 24 hour Intake 900 ml Output -- Net 900 ml DIAGNOSTICS Chest x-ray this morning revealed decreased size small left pneumothorax compared to yesterday. ASSESSMENT / PLAN #1 Left-sided pneumothorax, probable iatrogenic after nasal compression at times for suspected tension pneumothorax, status post left-sided thoracostomy tube placement on 11/28/2020 (removed on 11/29/2020), status post surgical chest to placement, removed on 12/01/2020 #2 Ischemic cardiomyopathy The patient is currently hemodynamically stable with improved left-sided pneumothorax per chest x-ray. He denied chest pain or shortness of breath. Recommendation: 1. We recommend outpatient follow-up with a chest x-ray in 7-10 days. This could be done locally by his primary care physician and no further workup is recommended if the left-sided pneumothorax resolves. If the pneumothorax persists or expands, further evaluation is warranted locally or at [facility] per patient preference and depending on clinical status. We will sign off. Please page the IP??Consult service at [phone]??with any questions or concerns. ?? The above patient was discussed with ??Papa Castillo who is in agreement??with the above recommendations. ?? Desiree Stone M.D.?? Division of Pulmonary and Critical Care Medicine, Fellow Associated attestation - Papa Castillo M.D. - 12/03/2020 5:06 PM CDT I saw and evaluated the patient, participating in the rosales portions of the service. I reviewed the resident/fellow???s note. I agree with the resident/fellow???s findings and plan. Chest x-ray CT shows continued improvement of the small left-sided pneumothorax. I think that will continue to resolve without further intervention. The patient also asked me today about a COVID-19 vaccine. I explained strong support for him gettingthis vaccine as it will potentially protect him from morena COVID-19 and will also reduce his chance of severe illness should be get a breakthrough infection despite vaccination. Was receptive to this. For now I do not have any further recommendations and would defer further follow-up pneumothorax 18,however absent of any further inpatient imaging I would recommend he have a chest x-ray in approximately one week. We will sign off at this time. Please do not hesitate to call us at [phone] if we can be of further assistance. Thank you for the consultation. Derek Allen R.N. - 12/03/2020 11:29 AM CDT Ed visit with pt and spouse for diabetes overview and diabetes program review. Pt to DC on Metformin. Discussed A1C results. Reviewed Metformin, how to titrate up the dose and the importance of taking it with food. Discussed use of a glucometer. Pt states he has metered in the past and knows how to use one. Reviewed parameters and testing frequency. Discussed Hypoglycemia. Discussed diet and carb impact on diabetes. Reviewed the importance of diet and exercise with diabetes. Encouraged Mr. Fairbanks to follow up with a local provider for management of his diabetes. Instructed to review the AV summary for final recommendations. All questions answered at this time. Inpatient Diabetes Education complete;please re-consult Diabetes Education if further educational needs arise. Osman Morton M.D. - 12/03/2020 10:59 AM CDT Cardiology Progress note Seeing Mr. Fairbanks in the context of previous chest pain, troponin rise, and ischemic cardiomyopathy, course also complicated by a left pneumothorax. He underwent coronary angiography yesterday evening: His previous LAD stent is patent, there is residual 50% disease just distal to the stent but with good QUYEN III flow, additionally he has a 60% lesion in the LCx at a branching point of an OM. Given thepotential for further interventions on his pneumothorax and questionable benefit of any attempt at revascularization, we elected not to pursue functional testing and did not feel the stenoses warrantedany intervention. We would plan to optimize him on medical therapy as outlined below and have him follow up either closer to home or up here in [place] if desired. Certainly if he has further chest pain or symptoms similar to his prior STEMI presentation, I think a pharmacologic perfusion study would be warranted to better delineate non-invasively if there is evidence of ischemia. Otherwise, from acardiology standpoint he should be fine to dismiss when the pulmonology service is ready. Recommendations: - Please continue Plavix 75 mg PO daily through the end of December to complete a total of 12 months post STEMI - Continue Asa, Atorvastatin 40 mg - Increase Losartan to 100 mg daily given persistent hypertension - Continue to titrate metoprolol tartrate as tolerated, upon dismissal he can be switched to succinate; If he has persistent hypertension, converting to Carvedilol for better BP control is another goodoption - Follow up with home customer service agent within a couple weeks, If he would like to be seen here in [place] in a couple months we can facilitate that as well Osman Morton MD Associated attestation - Joe Mahmood M.D. - 12/03/2020 12:57 PM CDT I saw and evaluated the patient, participating in the rosales portions of the service. I reviewed the resident/fellow???s note. I agree with the resident/fellow???s findings and plan. Impression/Plan: #1 Admission to the hospital with acute onset pulmonary edema #2 Left-sided pneumothorax with iatrogenic lung injury from left pleural catheter placement #3 Residual left-sided pneumothorax after chest tube removal thought to be secondary to air entrapment #4 NSTEMI #5 Coronary disease with prior STEMI in December 2019 with LAD PCI and reported moderate disease involving the 1st diagonal, circumflex, obtuse marginal, and right coronary artery #6 Probable ischemic cardiomyopathy, LVEF 44% with regionals in an LAD distribution #7 Chronic systolic congestive heart failure #8 Diabetes mellitus type 2 #9 Hypertension Mr. Fairbanks underwent coronary angiography yesterday. His LAD stent is widely patent. There is a 50% stenosis just distal to the stent but has good QUYEN 3 flow. There is also a 60% mid left circumflex stenosis at a branch point of an obtuse marginal in the setting of left dominant circulation. This would be a more challenging lesion to stent due to the bifurcation of a large obtuse marginal branch right by the stenosis. It would likely require at least balloon dilatation and possibly bifurcating stents if treated in the future. We discussed performing IFR for the LAD stenosis but visually there is QUYEN 3 flow and I did not think that the risk/benefit ratio favored this given he was chest pain-free. We will plan on medical management of coronary artery disease. He was switched to Plavix yesterday and will complete Plavix 75 mg daily through the end of December to complete 12 months therapy for STEMI. He will require aspirin 81 mg daily for life. Atorvastatin doses currently 40 mg and it be reasonable to uptitrate this to 80 mg depending upon lipid profile after discharge from the hospital. Otherwise he is on losartan 100 mg daily and metoprolol tartrate 50 mg twice a day. The goal dose for his losartan would be 150 mg daily in the metoprolol should be converted to succinate at time of discharge with a goal dose of metoprolol succinate 200 mg daily. These can be up titrated in the outpatient setting to goal dosing. He will require outpatient follow-up with Cardiology either here or locally. We did discuss that if he develops further chest pain or chest discomfort after he is discharged from the hospital which would be concerning for angina that it be reasonable to perform a stress test tolook for any evidence of LAD or circumflex territory ischemia. If ischemia was present then it wouldbe reasonable to consider percutaneous intervention for either of the stenoses but at this time no clear indication for percutaneous intervention. The remainder of the plan as per the excellent note by Dr. Morton. Electronically signed by: Joe Mahmood M.D. 12/03/20 12:57 PM CDT Link, Prince Cespedes M.D. - 12/03/2020 6:24 AM CDT Pulmonology Service PROGRESS NOTE SUBJECTIVE Mr. Fairbanks is resting comfortably this morning. Complains of pain at the site of his chest tube, which improves with oxycodone though it seems to wear off before the 4 hour lang. Underwent cardiac angiogram yesterday without additional intervention. I have reviewed the current medication list. OBJECTIVE VITAL SIGNS Temperature: [36.4 ??C-36.7 ??C] 36.4 ??C Heart Rate: [63-96] 92 Resp Rate: [7-34] 18 Blood Pressure: (140-161)/(51-88) 155/73 Arterial Line BP: (138-143)/(75-84) 139/75 FiO2 (%): [21 %-98 %] 34 % SpO2: [85 %-99 %] 97 % Flow Rate (L/min): [3 L/min] 3 L/min Weight: [93.5 kg] 93.5 kg BMI (Calculated): [29.8 kg/m??] 29.8 kg/m?? Pulse Rate: [63-94] 66 I/O 12/01 - 12/01 - 12/03 2358 P.O. 360 200 I.V. (mL/kg) 200 (2.1) Total Intake(mL/kg) 360 (3.8) 400 (4.3) Urine (mL/kg/hr) 250 (0.1) Chest Tube 180 Total Output 430 Net -70 +400 Unmeasured Urine Occurrence 2 x PHYSICAL EXAM General: Alert, interactive, resting comfortably. Skin: No rashes or lesions to exposed skin Eyes: Pupils equal and round. Sclera anicteric. ENT: Hearing grossly intact. Moist mucous membranes. Neck supple. Lungs: Clear to auscultation. No wheezes or crackles. Heart: Regular rate and rhythm. No murmurs appreciated. Abdomen: Soft, flat, nontender, nondistended. Neuro: Moves all extremities spontaneously. No focal neurologic deficits. Psych: Mood and affect congruent. Alert and oriented. Attention intact. No evidence of disorganized thinking. Reliable history acid pumper. DIAGNOSTICS I have personally reviewed laboratory data, cultures, imaging, and ECGs since admission, with rosales findings discussed below in the assessment and plan. ASSESSMENT / PLAN Mr. Fairbanks is hospitalized on [facility] Pulmonary Medicine [facility] for evaluation and management of multifactorial hypoxemia in the setting of left-sided pneumothorax, lung injury from pleural catheter placement, probable community- acquired pneumonia, and cardiogenic pulmonary edema from acute coronary event 11/25. #??Coronary artery disease with ischemic cardiomyopathy with??acute coronary since November 25??with resultant acute cardiogenic pulmonary edema # Hypertension Cardiac angiogram completed 12/02 and did not reveal any culprit lesions never intervened on. Will continue to optimize medical management per Cardiology recommendations. Plan: ?? Continue Plavix 75 mg daily through end of December for 12 months of therapy post STEMI ?? Continue daily aspirin, atorvastatin 40 mg ?? Increase losartan 100 mg daily for persistent hypertension ?? Uptitrate metoprolol as tolerated -- increase metoprolol tartrate 50 mg tonight. #??Left pneumothorax-possibly??iatrogenic??after needle decompression attempt for suspected tension pneumothorax #??Iatrogenic lung injury from left pleural catheter placement #??Probable community-acquired pneumonia #??Acute??multifactorial??hypoxia # musculoskeletal chest pain, at site of prior chest tube He has completed his course of antibiotics to cover for possible community- acquired pneumonia. Chestx-rays have remained stable since pulling chest tube, and small pneumothorax appears to be a improving. Will continue to wean oxygen in anticipation of dismissal soon. Plan: ?? Continue to wean oxygen as tolerated, encouraged to get up and ambulate. ?? Pain control with oxycodone 5 mg q3h, tylenol, lidocaine patches #??Diabetes mellitus type 2 DCS following, appreciate assistance. Received education today. Current Activity/Mobility: BMAT Level 4 (Able to stand and walk; needs staff assist if fall risk factors identified) Diet: general and diabetic diet Tubes/lines: PIV and Oxygen VTE prophylaxis: heparin Disposition: Home with expected discharge date in the next 24-48 hours. Stable to discharge criteria (not met): oxygen requirements Plan discussed with Pulmonology Ssis Architect, Isidro Hough M.D., who was present during the rosales portions of the evaluation today. Please page the Pulmonology service pager at [phone] with any questions. Associated attestation - Isidro Powell M.D. - 12/03/2020 2:12 PM CDT I met [id number] with and examined Mr. Fairbanks. I participated in the bedside discussion of impressions and plans with the patient and his . I discussed the case in detail with the Chest team on rounds and assisted in the development of our team's assessment and plan. I reviewed and agree with today's progress note authored by Dr. Prince Powers. I also discussed the case with Drs. Castillo and Bretha of interventional pulmonary whose help is appreciated. Mr. Fairbanks received supplemental oxygen via a non-rebreather mask overnight to see if this would helpdecrease his residual left pneumothorax. This morning's chest x-ray (reviewed and compared) suggeststhe pneumothorax is smaller. The study also reveals some platelike opacity in the left lower lung zone in a small left pleural effusion. Mr. Fairbanks was experiencing some epistaxis this morning which had ceased by the time we met him at the bedside. The patient was off supplemental oxygen during our bedside encounter. He was maintaining an oxyhemoglobin saturation of 90% at rest on room air. ASSESSMENT / PLAN #1 Coronary artery disease with ischemic cardiomyopathy with acute coronary since November 25 with resultant acute cardiogenic pulmonary edema #2 Left pneumothorax-possibly iatrogenic after needle decompression attempt for suspected tension pneumothorax #3 Iatrogenic lung injury from left pleural catheter placement #4 Probable community-acquired pneumonia #5 Acute multifactorial hypoxia #6 Hypertension #7 Diabetes mellitus type 2 I would like to keep the patient in hospital for at least another day to provide further supplemental oxygen via a non-rebreather mask to determine if we can further shrink the left pneumothorax which,in turn, should help wean Mr. Fairbanks off low-flow supplemental oxygen support. Ambulation encouraged today, as tolerated. Mr. Fairbanks seemed open to possible COVID vaccine administration. We discussed this in greater detail but he did not make a formal decision; we will check back with him later in the day on this matter. Total time: 25 min. Counseling time: 20 min. Horacio Sahni M.D. - 12/02/2020 5:34 PM CDT #1 Left-sided pneumothorax, probable iatrogenic after nasal compression at times for suspected tension pneumothorax #2 Ischemic cardiomyopathy ?? Mr. Fairbanks is a 55-year-old gentleman with medical comorbidities significant for moderate multivesselcoronary artery disease, status post PCI with stent placement, diabetes mellitus and hypertension. The patient presented to the emergency room on 11/28/2020 with acute hypoxic and hypercapnic respiratoryfailure requiring intubation and mechanical ventilation. Chest x-ray showed significant pulmonary edema and left deep sulcus sign but no definite pneumothorax. Needle decompression was performed on theleft side and chest tube was placed. The patient was then admitted to the intensive care unit for further management. ?? CT scan of the chest without IV contrast revealed left pneumothorax and a thoracostomy tube with intraparenchymal course and tip in the left upper lung. Thoracic surgery was consulted and a surgical tube was placed. The patient was treated with aggressive diuresis, vasopressors and antibiotics. He was successfully extubated and the pigtail catheter was removed on 11/29/2020. The patient was gradually improved and remained stable after extubation. He was transferred out of the ICU to the chest Service on 11/29/2020. ?? The surgical chest tube was removed yesterday on December 01. Repeat chest x-ray after the removal ofchest tube revealed left moderate size pneumothorax. The Interventional Pulmonary consult service was consulted for evaluation and management. The IP Service recommended to continue to follow-up with repeat chest x-rays given his clinical and radiological stability. ? Today we did not evaluate the patient in person as he was not in his room. His chest x-ray was reviewed. The left-sided pneumothorax status stable in size comparing to the image obtained from yesterday. Recommendation: 1. Please obtain another chest x-ray in the morning tomorrow to follow up on the pneumothorax. ??Will continue to follow. ??Please page the IP??Consult service at [phone]??with any questions orconcerns. ?? The above patient was discussed with ??Jonathan??who is??in agreement??with??the above??plan. Isidro Powell M.D. - 12/02/2020 3:48 PM CDT SUBJECTIVE I met [id number] with and examined Mr. Fairbanks. I participated in the bedside discussion of impressions and plans with the patient and his . I discussed the case in detail with the Chest team on rounds and assisted in the development of our team's assessment and plan. I reviewed and agree with today's progress note authored by Mr. Christian Che. Subjectively stable this AM. Still producing some bloody sputum. Cardiac catheterization performed later this afternoon without immediate complications. We discussedthe study findings with Cardiology. Interventional pulmonary note reviewed and appreciated. OBJECTIVE PHYSICAL EXAMINATION General: Alert. Sitting comfortably in bed during our morning encounter. Saturating in the 90% rangeat rest on supplemental oxygen 3 liters/minute. Lungs: Easy respirations at rest. DIAGNOSTICS Morning chest x-ray reviewed and compared and revealed a stable small to medium left apical pneumothorax. Coronary angiogram revealed a stenosis beyond the LAD stent. No intervention was performed. ASSESSMENT / PLAN #1??Coronary artery disease with ischemic cardiomyopathy with acute coronary since November 25 with resultant acute cardiogenic pulmonary edema #2??Left pneumothorax-possibly iatrogenic after needle decompression attempt for suspected tension pneumothorax #3??Iatrogenic lung injury from left pleural catheter placement #4??Probable community-acquired pneumonia #5??Acute multifactorial hypoxia #6??Hypertension #7??Diabetes mellitus type 2 #8 Intermittent left upper extremity pain-under observation For the coronary artery disease, will continue with medical management. Switching to clopidogrel perCardiology. For the left pneumothorax, will continue to monitor. Will trial supplemental oxygen via non-rebreather mask to see if this helps speed resolution of the pneumothorax. Morning chest x-ray should be obtained. For iatrogenic lung injury from errant tube pathway-continue observation. For pneumonia, complete cefdinir today. Will continue to wean supplemental oxygen as saturations allow. Questions from the patient and addressed at the bedside. Total time: 25 min. Counseling time: 20 min. Dinora Bowles - 12/02/2020 2:11 PM CDT Asked by Diabetes Consulting service to see patient regarding Medical Nutrition Therapy for diabetes. Visited with patient and spouse for diet education regarding general DM diet review. Diabetes summary: Diabetes mellitus, type 2, uncontrolled with hyperglycemia A1c 10.3% Nutrition Diagnosis: Food/nutrition-related knowledge deficit related to no/limited prior diabetes nutrition education as evidenced by questions Reviewed basic guidelines and principles of medical nutrition therapy for diabetes self-management, including: identified carbohydrate food groups, encouraged general healthy portion control and balance using the plate method, discussed proper meal timing, discussed smart snacking and discussed non-carb snacking. See patient education record for education materials provided today. Patient stated goal is to identify carbohydrate foods in current diet, watch portion sizes more closely, eat meals on a more consistent basis and avoid between meal and bedtime snacking. Anticipate adherence will be fair. Follow up: encouraged further outpatient follow-up. [facility] Registered Dietitian can be reached at pager: [phone] Joe Mahmood M.D. - 12/02/2020 1:08 PM CDT SUBJECTIVE Mason Fairbanks is a 55 y.o. male who was admitted to the hospital on 11/28/2020. This is a supervisory note. I met, interviewed, and examined the patient with the team of medical residents and/or nurse practitioners/physician assistants. I agree with the history of present illness,past medical, surgical, social and family histories, as well as allergies, medications and review ofsystems as documented. I have also reviewed laboratory and imaging data. I agree with the physical examination, assessment, and plan as documented by Dr. Ascencio in addition to what I have documented below. Mr. Fairbanks was seen and examined today with the cardiology consult service. Overnight, he had no acute events. He remains chest pain-free. His pneumothorax is stable on today's chest x-ray and is small to moderate without evidence of mediastinal shift. OBJECTIVE PHYSICAL EXAMINATION Agree with the physical exam as documented in the progress note from today by Dr. Ascencio with the following addendums: Wrist: Right radial pulse is intact and would be amenable to radial wrist access. DIAGNOSTICS I have reviewed relevant laboratory, imaging, and other diagnostics as applicable to this admission. ASSESSMENT / PLAN #1 Admission to the hospital with acute onset pulmonary edema #2 Left-sided pneumothorax with iatrogenic lung injury from left pleural catheter placement #3 Residual left-sided pneumothorax after chest tube removal thought to be secondary to air entrapment #4 NSTEMI #5 Coronary disease with prior STEMI in December 2019 with LAD PCI and reported moderate disease involving the 1st diagonal, circumflex, obtuse marginal, and right coronary artery #6 Probable ischemic cardiomyopathy, LVEF 44% with regionals in an LAD distribution #7 Chronic systolic congestive heart failure #8 Diabetes mellitus type 2 #9 Hypertension I agree with the interval history and examination and have jointly developed the assessment and flo documented today by Dr. Ascencio. Mr. Fairbanks is admitted to the hospital with acute onset pulmonary edema in the setting of stuttering chest pain for approximately 1 week prior to admission. His last day of significant chest discomfort was on 11/28/2020. He did have a confirm non-STEMI with troponin up to 190. He describes stuttering chest pain which was similar to what he had prior to his myocardial infarction. His echocardiogram demonstrates a reduced ejection fraction with an EF of 44% with apical akinesis in addition to mid anteroseptal, anterior, and anterolateral akinesis. I had a long discussion in the hospital today with him and his . We discussed the 2 options which were either to move forward with a coronary angiogram to delineate his coronary artery anatomy and determine if there is any issues with his known LAD stent. The other alternative is pharmacologic stress testing with consideration of viability stress. His pneumothorax has largely been addressed and it is felt that the remaining pneumothorax was due to air entrapment at the time of chest tube removal. There is no concern for ongoing leak. There is nofurther plans for performing any other procedures for his pneumothorax this hospitalization. At the conclusion of our discussion he and his favored moving forward with invasive coronary angiogram to delineate his anatomy. We did discuss that if he does have a 100% occlusion of an LAD vessel that we might try to probe the clot but if it was not readily amenable to PCI given the duration between his initial chest pain and coronary angiogram we might abort further attempts and see him backas an outpatient with viability stress testing prior. They understand this would like to proceed with coronary angiography today. He was previously on prasugrel after his prior STEMI in December of 2019. This was held due to riskof bleeding with his chest tubes. I do not think reloading this medication without 1st delineate hisanatomy would be correct. Rather, would favor changing him to Plavix due to lower bleeding risk and likely the benefits of prasugrel have largely been lost this far out from a STEMI. If no PCI needs sarah undertaken then would plan on him completing Plavix through December of 2020. The rest of plan as per the excellent note by Dr. Ascencio. Electronically signed by: Joe Mahmood M.D. 12/02/20 1:09 PM CDT Christian Che - 12/02/2020 6:31 AM CDT [facility] Pulmonary Medicine [facility] PROGRESS NOTE SUBJECTIVE Mr. Fairbanks is a??pleasant 55 y.o.??gentleman??with a history of moderate multivessel CAD??who??presented on 11/28/20 with acute hypercapnic and hypoxic respiratory failure??suspected??secondary to flashpulmonary edema. ?? PMx - ??STEMI??December 2019 treated with drug-eluting stent to LAD??and has??and dual anti-platelet therapy (aspirin and prasugrel). ?? - ??10 year history of??uncontrolled??DMT2 and HTN. ?? Current Hospitalization - 11/28/20: SOB, dry cough, diaphoresis sensation of 'drowning' and decreased consciousness. Pulmonary edema vs Pneumothorax vs CAP. Needle decompression followed by pigtail performed in ED. ?? - 11/28/20: Admitted to MICU with acute respiratory failure and??was intubated, mechanically ventilated, needle decompressed, pigtail inserted and chest tube placed. ?? - Since been extubated (11/28), pigtail removed (11/29), chest tube removed (12/01). - Mr. Fairbanks's ECHO (11/30/20) revealed a diminished EF of 44% to his prior ECHO in June 2019 of 50-55%. - 11/30/20: Cardiology consult suggested repeat myocardial infarction led to pulmonary edema. Recommended coronary angiography. - 12/01/20: PA and Lat CXR following chest tube removal showed mod left pneumothorax and bibasilar atelectasis. Decreased in size on f/u CXR. - 12/01/20: IP consult advised no need for pleural drain, recommended repeat CXR morning of 12/02. - 12/01/20: Cardio consult recommended coronary angiography postponed until 12/02 following CXR result. -12/01/20: SaO2 dropped to 87% on 2L NC. Nurse increased to 4L NC and SaO2 has fluctuated between 92-96%. -12/02/2020: Scheduled for coronary angiography today. ?? No acute events occurred overnight. Patient remains stable and does not feel breahtless. Ambulating and toileting this morning without need for NC. Uses the incentive spirometry 10x/hour. Patient notedcontinued intermittent productive cough with blood tinged sputum. CXR remained stable and patient agreed to proceed with coronary angiography. I have reviewed the current medication list. OBJECTIVE VITAL SIGNS Temperature: [36.5 ??C-36.9 ??C] 36.6 ??C Heart Rate: [66-111] 72 Resp Rate: [14-26] 24 Blood Pressure: (144-150)/(87-90) 150/87 SpO2: [87 %-94 %] 92 % Flow Rate (L/min): [3 L/min-4 L/min] 3 L/min Weight: [93.5 kg-94.8 kg] 93.5 kg BMI (Calculated): [29.8 kg/m??-30.3 kg/m??] 29.8 kg/m?? Pulse Rate: [67-113] 72 PHYSICAL EXAM General: Alert, pleasantly interactive, not acutely ill. Lungs: Speech in clear. Breathing is not labored or short of breath. Breath sounds diminished but vesicular. No wheezes or crackles present. Heart: S1 and S2 are audible with no added heart sounds. Partridge beat was not appreciated. No visible JVP distension present. Abdomen: Persistently distended. Passing flatulence but not stool since 11/28 currently on laxatives. Soft, nontender, non rigid, no guarding present. No organomegaly or masses palpated. Bowel sounds arenormoactive diffusely. Mental: Mood and affect congruent. Alert and oriented. Attention intact. No evidence of disorganizedthinking. Reliable history acid pumper. DIAGNOSTICS I have personally reviewed the laboratory data and imaging since admission, and in/outs for past 72 hours. Lab results remained relatively stable today. WCC 11.3 (previous 12.3). Neutrophils 6.99 (prevoius 8.94). CXR showed persistent left suvia-ii-vehaezoe pneumothorax without mediastinal shift. Retrocardiac consolidation. Bibasilar atelectasis and probable trace left pleural effusion. Decreased left lateral chest wall subcutaneous emphysema. ASSESSMENT / PLAN Mr. Fairbanks is a 55 y.o. pleasant gentleman with a history of multivessel CAD currently hospitalized on [facility] for evaluation and management of Edema Pulmonary (HCC) suspected sarah secondary to repeat myocardial infarction. #1??Coronary artery disease with ischemic cardiomyopathy with acute coronary since November 25 with results acute cardiogenic pulmonary edema #2??Left pneumothorax-probable iatrogenic after needle decompression attempt for suspected tension pneumothorax #3??Iatrogenic lung injury from left pleural catheter placement #4??Acute multifactorial hypoxia ?? - Patient continues to work with RT nurse on incentive spirometry 4x/day. Educated patient on continued use benefit. - Patient is currently stable on 3L NC. Educated on benefits of continuous use. Team discussed non-rebreather use following orthodontic laboratory technician to i) improve SaO2 levels ii) provide benefit for current pneumothorax. - Currently at orthodontic laboratory technician for diagnostic +-therapeutic coronary angiography procedure. Follow-up with result to seek further direction of care. #5??Probable community-acquired pneumonia Course of azithromycin and cefdinir are completed. Prior cultures are negative, patient shows no clinical signs of infection. Plan to repeat sputum cultures for possible CAP. Monitor clinically over following 24 hours and recheck routine labs. #6??Hypertension #7??Diabetes mellitus type 2 #8 Intermittent left upper extremity pain-follow - Mr. Fairbanks was educated by a nurse practitioner x ray consultant on diabetes management??and commenced on insulin. Provided with a lifestyle and oral management plan following discharge. - Blood pressure has been trending 144/90-151/89 in the last 24 hours. Currently on Losartan 50mg POOD sara. Continue current therapy and educated on required follow up as outpatient. - Arm pain has been discussed with patient. Reassured that??pain is probably MSK in origin and to seek further guidance as outpaient.?? #9 Primary Care Provider Assignment Patient currently has no active PCP in [place] or [place]. External customer service agent provided patient with information for a PCP in [place]. Advised patient on ways our service can be of assistance.?? Current Activity/Mobility: BMAT Level 4 (Able to stand and walk; needs staff assist if fall risk factors identified) Fall Injury Prevention: N/A - patient is not determined to be at risk of falling Diet: general diet Tubes/lines: PIV VTE prophylaxis: heparin Disposition: Home with expected discharge date Stable to discharge criteria (not met): Tests/procedures/consults Please page the [facility] service pager at #[phone] if you have any questions orconcerns. Plan discussed with [facility] Ssis Architect, Isidro Hough M.D., who was present during rosales portions of the evaluation today. Enjoy today, Christian Che Medical Student #[id number] Isidro Powell M.D. - 12/01/2020 6:10 PM CDT SUBJECTIVE I met [id number] with and examined Mr. Fairbanks. I participated in the bedside discussion of impressions and plans with the patient. I discussed the case in detail with the Chest team on rounds and assisted in the development of our team's assessment and plan. I reviewed and agree with today's progressnote authored by Mr. Christian Che, visiting medical student. The patient's left chest tube was removed this morning by thoracic surgery. Postprocedural chest x-ray revealed a left apical pneumothorax. We appreciate the subsequent help of the interventional pulmonary team. Follow-up chest x-ray this afternoon (reviewed and compared) revealed a stable left apicalpneumothorax so we will continue to follow rather than placing a new pleural catheter. I am also appreciative of the help of Cardiology. Their impression is that the patient sustained a repeat myocardial infarction on November 26. Coronary angiogram was recommended for today; the procedure was postponed until tomorrow as we dealt with the left pneumothorax. OBJECTIVE PHYSICAL EXAMINATION General: Alert. Comfortable appearing at rest in bed. Afebrile. Some periods of hypertension today. Resting oxyhemoglobin saturation 91% on supplemental oxygen 2 liters/minute. Fluid balance currently charted at -2.9L since admission. Lungs: Easy respirations at rest. DIAGNOSTICS Hemoglobin slightly higher 12.6. White blood cell count continues to downtrend; 11.3 today. Creatinine 0.84. ASSESSMENT / PLAN #1 Coronary artery disease with ischemic cardiomyopathy with acute coronary since November 25 with results acute cardiogenic pulmonary edema #2 Left pneumothorax-probable iatrogenic after needle decompression attempt for suspected tension pneumothorax #3 Iatrogenic lung injury from left pleural catheter placement #4 Probable community-acquired pneumonia #5 Acute multifactorial hypoxia #6 Hypertension #7 Diabetes mellitus type 2 #8 Intermittent left upper extremity pain-follow Will continue to follow the patient clinically and radiologically. Completion of the coronary angiogram tomorrow if he remains stable. Three day course of azithromycin completed and 5 day course of cefdinir to be completed tomorrow. Questions from the patient, his , and his father in law addressedat the bedside. Total time: 25 min. Counseling time: 15 min. Bryn Stewart R.N. - 12/01/2020 2:50 PM CDT SUBJECTIVE Referral Data The patient was seen for ongoing discharge needs. A list of oxygen options (that patient/family geographically resides or requests) has been provided to and reviewed with patient/family. Disclaimers: [place] Quality Providers: Patients and/or family/responsible libertarian have been provided thelist of Providers that share their quality measures with [facility]. Reviewed insurance coverage, provided patient with in-network options if applicable. Patient/family have indicated a preference for the facility/agency below. patient declined additional resources. OBJECTIVE Anticipated modifications to the home environment: The patient's family will provide transportation upon discharge. The patient and family will drive to his home in [place]. It is about a [address] The oxygen company is aware of this. Minda reports they can service his oxygen needs in [place], [place] as well as in at his home in [place]. Patient requires the following additional equipment upon dismissal: ASSESSMENT / PLAN Assessment The patient/family appear to have insight into the patient's needs at this time and are planning appropriately for discharge needs. The patient/family report agreement with the below plan with no further questions at this time. Plan Discharge Location: Home oxygen will be provided by: Durable Medical Equipment - Admitted Since 11/28/2020 Service Provider Selected Services Address Phone Fax Patient Preferred [facility] [employer] Durable Medical Equipment [id number] [place] [address] [phone] -- Contact: Intake Portable tanks for transport to be delivered to the patient???s room prior to dismissal. Concentrator to be delivered and set up at patient???s home. NURSING: - Fax prescription to oxygen provider. - Fax any necessary clinical documentation supporting oxygen need including After Visit Summary andDME justification. - Arrange initial oxygen delivery. PRIMARY SERVICE: - Review and sign oxygen prescription and supporting documentation including After Visit Summary and DME justification prior to patient???s dismissal. CASE MANAGEMENT: - Will continue to follow. Care Management will continue to follow. Bryn Stewart R.N. 12/01/2020 Aleena Ervin APRN, C.N.P. - 12/01/2020 1:31 PM CDT SUBJECTIVE LOS: 3 days DCS continues to follow this 55 y.o. year-old male for diabetes admitted on 11/28/2020 for pulmonary edema PREADMISSION THERAPY: None OBJECTIVE Patient is in no acute distress. Sitting in their chair. Family is present at the bedside. Reviewed hospital insulin regimen. Reviewed dismissal plan. Blood glucose results in last 24 hours: Recent Labs 12/01/20 1135 12/01/20 0933 12/01/20 0704 11/30/20 2155 11/30/20 1720 GLUCOSEPOC 121 153 H -- 195 H 161 H GLUCOSE -- -- 157 H -- -- Yesterday, given: Lantus insulin 10 units and NovoLog insulin 1 unit per 10 grams of carbohydrate with meals (0-7-3 with respective meals). Steroids: None Current Diet Adult Diet Regular; 60 gm Carbs (per meal) starting at 12/01 1054 VITALS Temperature: 36.4 ??C Heart Rate: 76 Resp Rate: 18 Blood Pressure: 151/89 BP Location: Left arm SpO2: 91 % Flow Rate (L/min): 2 L/min Height: 177 cm Weight: 97.1 kg Body mass index is 30.99 kg/m??. LABORATORY Lab Results Component Value Date CREATININE 0.84 12/01/2020 Estimated Creatinine Clearance: 116.9 mL/min (by C-G formula based on SCr of 0.84 mg/dL). ASSESSMENT / PLAN #1 Diabetes mellitus, type 2, uncontrolled with hyperglycemia A1c 10.3% PLAN - Blood glucose monitoring: four times daily - Glucose goal: 140-180 mg/dL - Basal: Lantus 10 units at bedtime. - Mealtime: NovoLog 1 unit for every 10 grams of carbohydrates consumed with meals. - Correction scale: NovoLog moderate correction scale three times a day - DCS will evaluate and adjust insulin doses as indicated to achieve glycemic goal. ANTICIPATED DISMISSAL PLAN: Start Metformin 500 mg by mouth once daily and increase weekly by 500 mg until at goal of 1000 mg bymouth twice daily. Blood glucose frequency: twice daily Goal: 100-140 mg/dL Please page DCS within 24 hours prior to hospital dismissal for final dismissal recommendations. Prescription for a new meter, testing supplies and Metformin sent to [facility]. Discussed above plan with patient who is alert and oriented and in agreement. DCS Pager [phone] will continue to follow. Call primary service for diabetes concerns between [phone]. Primary service to contact DCS via hospital media operator for questions. LYT Christian Che - 12/01/2020 11:05 AM CDT [facility] PROGRESS NOTE SUBJECTIVE Mr. Fairbanks is a??pleasant 55 y.o.??gentleman with a history of moderate multivessel CAD??who??presented on 11/28/20 with acute hypercapnic and hypoxic respiratory failure suspected secondary to flash pulmonary edema. ?? PMx - STEMI December 2019 treated with drug-eluting stent to LAD and has and dual anti-platelet therapy(aspirin and prasugrel). ?? - 10 year history of uncontrolled DMT2 and HTN. ?? Current - 11/28/20: SOB, dry cough, diaphoresis sensation of 'drowning' and decreased consciousness. Pulmonary edema vs Pneumothorax vs CAP. Needle decompression followed by pigtail performed in ED. ?? - 11/28/20: Admitted to MICU with acute respiratory failure and was intubated. ?? - 11/28/20: Thoracic surgery was consulted for chest tube placement. Patient was extubated. ?? - 11/29/20: Pigtail was clamped prior to transfer to pulmonary service for inpatient management. - 11/30/20: Cardiology consult suggested repeat myocardial infarction led to pulmonary edema. Recommended coronary angiography. - 12/01/20: Chest tube was removed by Thorac[facility]. ?? No acute events occurred overnight. Thoracics removed chest tube this morning following 150mL drained from chest tube in 12 hours. Patient remains stable. He noted intermittent productive cough with blood tinged sputum and soreness at the chest tube site. CXR showed persistent pneumothorax and IP was consulted. Patient has been informed of current plan and awaiting coronary angiography. I have reviewed the current medication list. OBJECTIVE VITAL SIGNS Temperature: [36.4 ??C-36.7 ??C] 36.4 ??C Heart Rate: [71-85] 76 Resp Rate: [18-26] 18 Blood Pressure: (150-158)/(89-91) 151/89 SpO2: [90 %-96 %] 91 % Flow Rate (L/min): [2 L/min] 2 L/min Pulse Rate: [67-82] 77 PHYSICAL EXAM General: Alert, interactive, not acutely ill. NC in place. Chest tube removed. Lungs: Productive intermittent coughs with visible blood. Breath sounds decreased bilaterally on auscultation. No wheeze, stridor or crackles were appreciated. Heart: Faint regular rate and rhythm. No murmurs appreciated. No lower extremity edema. No raised JVP. Partridge beat was not appreciated. Abdomen: Mildly distended. Soft, flat, bowel sounds normoactive, nontender, nondistended, no palpable masses or organomegaly. Mental: Mood and affect congruent. Alert and oriented. Attention intact. No evidence of disorganizedthinking. Reliable history acid pumper. DIAGNOSTICS I have personally reviewed the laboratory data and imaging since admission, and in/outs for past 72 hours. Lab results are stable and improving. PA and Lat CXR from 8:31AM today shows moderate left pneumothorax, left lower lobe consolidation with atelectasis, right basilar atelectasis, bilateral perihilar opacities. Soft tissue emphysema present overlying left chest wall. Repeat PA and Lat CXR at 1:30PM shows stable minimal reduction in left pneumothorax. ASSESSMENT / PLAN Mr. Fairbanks is hospitalized on [facility] Pulmonary Medicine [facility] for evaluation and management of Edema Pulmonary (HCC) suspected secondary to repeat myocardial infarct. Patient is stable, fully alert and ambulating. Patient was assessed and updated on management plan going forward on pre/morning rounds. #1 Coronary artery disease with ischemic cardiomyopathy with possible secondary acute pulmonary edema #2 Left pneumothorax-unclear if spontaneous or iatrogenic #3 Iatrogenic lung injury from left pleural catheter placement - Mr. Fairbanks's ECHO (11/30/20) revealed a diminished EF of 44% to his prior ECHO in June 2019 of 50-55%. - RT nurse educated patient on incentive spirometry. Importance for lung health explained and encouraged to perform >4x/daily. - SaO2 has primarily fluctuated between 92-93% since last night. Continue NC 2L. - Thoracics removed chest tube this morning (12/01/20) following 330mL drainage over last 24 hours. IP consult ordered for evaluation of new chest tube placement for persistent pneumothorax. - Cardio consult today (12/01/20) recommended cath rescheduled for tomorrow due to persistent moderate sized left pneumothorax. ?? #4 Probable community-acquired pneumonia - 3 day course of azithromycin completed. 5 day course cefdinir course will be completed 12/02. - Cultures have been negative and patient does not currently show active signs of infection. CXR (12/01/20) shows continued evidence of small consolidation in LLB. Continue to monitor patient clinically. #5 S/p Acute Respiratory Failure With Hypercapnia #6 S/p Acute Respiratory Failure With Hypoxia - #5 and #6 suspected secondary to #1 #7 Diabetes Mellitus Type 2 Hyperglycemia ?? Mr. Fairbanks was educated by a nurse practitioner x ray consultant on diabetes management and commenced on insulin. Provided with a management plan following discharge. ?? childbirth educator and dietitian consult are pending. ? #8 Intermittent Upper Left Arm Pain ?? Mr. Fairbanks stated intermittent left upper-outer burning 8/10 arm pain and a sore shoulder following cardiac stenting in December 2019. Pain is exacerbated upon sustained arm elevation. Prior upper limbx-ray showed no overt abnormalities. ?? Reassured that pain is probably MSK in origin and to seek further guidance as outpaient.? #9 Abdominal Bloating ?? Mr. Fairbanks experienced abdominal bloating since 07/03 prior to admission. Currently improving on:?? - Senoko-S 1 tablet PO BID - Miralax 17g PO PRN ?? #10 Primary Care Provider Assignment ?? Mr. Fairbanks does not currently have an active PCP. I have discussed this with the patient and offered advice. Patient stated his customer service agent suggested a PCP in [place], [place]. Advised patient on waysour service can be of assistance. Current Activity/Mobility: BMAT Level 4 (Able to stand and walk; needs staff assist if fall risk factors identified) Fall Injury Prevention: N/A - patient is not determined to be at risk of falling Diet: diabetic diet Tubes/lines: PIV VTE prophylaxis: heparin (porcine) injection 5,000 units subcutaneous q8H Disposition: Uncertain with expected discharge date Stable to discharge criteria (not met): Tests/procedures/consults Plan discussed with [facility] Ssis Architect, Isidro Hough M.D., who was present during rosales portions of the evaluation today. Please page the [facility] service pager at #[phone] if you have any questions. Yours sincerely, Christian Che Medical Student #[id number] Christian Ascencio M.D. - 12/01/2020 10:51 AM CDT CARDIOLOGY CONSULT PROGRESS NOTE Mr. Grier was seen by the cardiology consult team today. No active chest pain. Breathing improved. Chest tube was pulled. He feels that he could lay flat if needed to for the angio. Unfortunately, a chest radiograph was obtained after we saw him and shows a moderate sized pneumothorax on the left. Although he was on the schedule for cath today, this is not an emergent procedure. We will push him to tomorrow so that the primary team can take care of his pneumothorax. Please make him NPO at midnight. We also recommend re-loading his prasugrel prior to cath with 60 mg tomorrow as it appears this was not given while he was in the ICU. Staffed with Dr. Crawford. Constantino Wilson M.B.B.S. - 12/01/2020 8:33 AM CDT No acute event overnight. Chest tube output was 150 cc over the last 24 hour, serosanguineous The chest tube was discontinued this morning bedside with no subsequent complication. The plan is to obtain a follow-up chest x-ray, PA and lateral view today at noon. Thoracic surgery team will sign off at this time however please do not hesitate to page or call us with any question or concerns. Addendum Post CT removal chest xray shows small left sided apical ptx repeated CXR at 1330 showed stable PTX without progression. Patient has been clinical stable with no issues. No intervention is needed and keep follow the patient clinically. Repeat CXR only in case the patient O2 requirement increases or dev elops new symptoms. Isidro Powell M.D. - 11/30/2020 1:57 PM CDT SUBJECTIVE I met [id number] with and examined Mr. Fairbanks. I participated in the bedside discussion of impressions and plans with the patient and his . I discussed the case in detail with the Chest team on rounds and assisted in the development of our team's assessment and plan. Mr. Fairbanks is a 55-year-old with coronary artery disease-status post acute coronary syndrome with stenting 2019, ischemic cardiomyopathy, hypertension, diabetes mellitus type 2, and obesity who presented on November 28 with an acute cardiopulmonary decompensation. The relative contributions of an acute coronary syndrome (troponin increase), pneumonia (patchy consolidation per chest CT), flash pulmonary edema (scattered ground-glass changes per chest CT), and primary spontaneous pneumothorax (deep sulcussign on initial chest x-ray but no definite pneumothorax) to the presentation remain unclear. The initial resuscitation efforts were complicated by possible iatrogenic left pneumothorax and embedding of a pleural catheter within the left lung. Mr. Fairbanks was stabilized by our colleagues in the ICU, successfully extubated, and transferred to the general care [facility] yesterday for further management. Mr. Fairbanks reports feeling better. Cough with some sputum production persists. Admission COVID swab and blood cultures are negative. He is now receiving cefdinir and azithromycin (day 3). I am appreciative of the supervision of the left chest tube by thoracic surgery. I reviewed Dr. Piña's note of today. Studies reviewed. Hemoglobin low but stable at 11.7. White blood cell count down trending to 11.9 today. Creatinine stable at 0.8. Yesterday's echocardiogram revealed mild left ventricular enlargement,LVEF 44%, normal right ventricular size and systolic function, and estimated RVSP 45 mm Hg. Note that previous outside echoes revealed a left ventricular ejection fraction of 45% last fall but ana to 55% earlier this year. OBJECTIVE PHYSICAL EXAMINATION General: Alert. No immediate distress. Required mild assistance to sit up in bed for the lung exam. Afebrile. Normotensive. Non tachycardic. Resting oxyhemoglobin saturation 96% on supplemental oxygen 2 liters/minute via nasal cannula. Lungs: Easy respirations at rest. No significant crackles or wheezing per posterior chest auscultation. Heart: Regular rate and rhythm without obvious murmurs or gallops. ASSESSMENT / PLAN #1 Coronary artery disease with ischemic cardiomyopathy with possible acute pulmonary edema #2 Left pneumothorax-unclear if spontaneous or iatrogenic #3 Iatrogenic lung injury from left pleural catheter placement #4 Probable community-acquired pneumonia #5 Acute hypoxia #6 Hypertension #6 Diabetes mellitus type 2 I am in agreement with the care plans of the team including continued mild diuresis attempts, continued antibiotics, chest tube management in conjunction with thoracic surgery, initiation of insulin for diabetes, and possible cardiology consult given the troponin increase and reduction in left ventricular ejection fraction with this admission. Questions from the patient and his addressed during the encounter. Total time: 25 min. Counseling time: 20 min. ChineduChristian - 11/30/2020 11:44 AM CDT [facility] PROGRESS NOTE SUBJECTIVE Mr. Fairbanks is a 55 y.o. gentleman with a history of CAD who presented on 11/28/20 with acute hypercapnic and hypoxic respiratory failure suspected secondary to flash pulmonary edema. - PMx: STEMI December 2019 treated with drug-eluting stent to LAD and has and dual anti-platelet therapy (aspirin and prasugrel). - 10 year history of uncontrolled DMT2 and HTN. - 11/28/20: SOB, dry cough, diaphoresis sensation of 'drowning' and decreased consciousness. Pulmonary edema vs Pneumothorax vs CAP. Needle decompression followed by pigtail performed in ED. - 11/28/20: Admitted to MICU with acute respiratory failure and was intubated. - 11/28/20: Thoracic surgery was consulted for chest tube placement. Patient was extubated. - 11/29/20: Pigtail was clamped prior to transfer to pulmonary service for inpatient management. No acute events occurred overnight. This morning, Mr Fairbanks said he is feeling well. He noted intermittent productive cough with blood tinged sputum and soreness at the chest tube insertion site. He noted that he removed his NC overnight, which was restarted at 7AM. At this time, SaO2 was noted to be 91% and has since improved to 97%. OBJECTIVE VITAL SIGNS Temperature: [36.3 ??C-36.9 ??C] 36.7 ??C Heart Rate: [68-82] 76 Resp Rate: [14-24] 24 Blood Pressure: (140-152)/(88-98) 152/98 SpO2: [81 %-98 %] 97 % Flow Rate (L/min): [2 L/min] 2 L/min Pulse Rate: [57-82] 75 Chest Tube Output: 425cc (07:27; 11/30) 455cc (12:03; 11/30) No air leak present. Chest tube placed to water seal this morning by Thoracics. PHYSICAL EXAM General: Alert, interactive, not acutely ill. Chest tube insertion site is sore on coughing and exertion. Lungs: Chest tube draining appropriately with no local skin changes. Productive intermittent coughs with visible blood.Breath sounds decreased bilaterally on auscultation. Inspiratory stridor was present. No crackles were appreciated. Heart: Faint regular rate and rhythm. No murmurs appreciated. No lower extremity edema. No raised JVP. Partridge beat was not appreciated. Abdomen: Distended. Soft, flat, bowel sounds normoactive, nontender, nondistended, no palpable masses or organomegaly. ENT: Hearing grossly intact. Dentition intact. No oral or pharyngeal erythema or lesions noted. Mental: Mood and affect congruent. Alert and oriented. Attention intact. No evidence of disorganizedthinking. Reliable history acid pumper. DIAGNOSTICS I have personally reviewed the laboratory data and imaging since admission, and in/outs for past 48 hours. Labs have remained stable and are improving since admission. POC glucose readings q4x/day over the last 24 hours have fluctuated 204>150>168>266>232. ECHO (11/30/20) showed mildly enlarged left ventricular chamber size, anterior middle and apical akinesia, 2-D biplane volumetric EF 44%, and Cardiac Index of 2.42 (2.5-4.2). Prior ECHO studies showed 45%-50% (01/17/2020) and 50%-55% (07/19/20) ASSESSMENT / PLAN Mr. Fairbanks is hospitalized on [facility] Pulmonary Medicine [facility] for evaluation and management of Edema Pulmonary (HCC). Patient is stable, fully alert and ambulating. Patient was assessed and updated on management plan going forward on pre/morning rounds. Continuing monitoring over next 24 hours. #1 S/p Acute Respiratory Failure With Hypercapnia and Hypoxia (HCC) #2 Edema Pulmonary (HCC) #3 Left pneumothorax #4 Probable Community acquired pneumonia Mr. Fairbanks's ECHO revealed a diminished EF to his prior ECHO in June 2019. 28F Chest tube (Day 3) isstill draining serosanguinous fluid. We plan to work with Thoracics to determine when the chest tubecan be removed. Placed an order for RT to educate our patient and perform incentive spirometry 4x/day. Mr. Fairbanks has completed his course of azithromycin and cefdinir will be continued unti 12/02. Cultures have been negative and patient does not currently show active signs of infection. Follow final cultures s/p antibiotics. #4 S/p Coronary Stent STEMI #5 Coronary Artery Disease with Ischaemic Cardiomyopathy #6 Hypertension Essential Primary ?? Received documentation from Mr. Fairbanks's customer service agent for previous ECHO studies regarding cardiac stenting history. Continue cardiac standard of care medications: ?? - Acetaminophen tablet 1,000mg PO Q6H - Prasugrel tablet 10mg PO OD - Atorvastatin tablet 80mg PO Nocte - Metoprolol tartrate tablet 25mg PO BID Consult for cardiology input for ECHO results has been placed. ?? Mr. Fairbanks has been recommenced on anti-hypertensive medicatoin to better control his underlying HTN. ?? - Losartan tablet 50mg PO OD ? #6 Diabetes Mellitus Type 2 Hyperglycemia A1c 10.3% ([facility]) ?? Mr. Fairbanks was educated by a nurse practitioner x ray consultant on diabetes management and commenced on insulin. childbirth educator and dietitian consult are pending. ? #7 Intermittent Upper Left Arm Pain ?? Through conversation, Mr. Fairbanks stated that he has been experiencing left upper- outer burning 8/10 arm pain and a sore shoulder following cardiac stenting. Pain is exacerbated upon sustained arm elevation. Upper limb x-ray showed no overt abnormalities. Today, I reassured once again that pain is probably MSK in origin and to seek further guidance from PCP. #8 Abdominal Bloating Mr. Fairbanks experience abdominal bloating since 07/03 prior to admission. He last passed stool on 11/29/20 and has been commenced on: - Senoko-S 1 tablet PO BID - Miralax 17g PO PRN #9 Primary Care Provider Assignment Mr. Fairbanks does not currently have an active PCP. I have discussed this with the patient and offered advice. Patient stated his customer service agent suggested a PCP in [place]. Advised patient on ways our service can be of assistance. Current Activity/Mobility: BMAT Level 4 (Able to stand and walk; needs staff assist if fall risk factors identified) Diet: diabetic diet Tubes/lines: PIV VTE prophylaxis: heparin (porcine) injection 5,000 units subcutaneous q8H Disposition: Uncertain with expected discharge date Stable to discharge criteria (not met): Tests/procedures/consults Plan discussed with [facility] Ssis Architect, Isidro Hough M.D., who was present during rosales portions of the evaluation today. Please page [place] [facility] [place] [phone] with any questions. Christian Che Medical Student #[id number] LYT Kishore Piña M.D. - 11/30/2020 7:27 AM CDT No major issues overnight. Patient transferred from ICU yesterday. Pigtail was removed yesterday andCT remains in place. Assessed the chest tube this morning. No air leak present. 425 cc output. Chesttube placed to water seal on evaluation this morning. If no air leak and output appropriate, will likely remove tomorrow. Christian Alicea - 11/29/2020 3:20 PM CDT SUBJECTIVE CC: Pulmonary Edema Unknown Cause Please see Transfer Note (11/29/20) for a detailed summary. Mr. Fairbanks is a 55 y.o. gentleman who presented on 11/28/20 with acute hypercapnic and hypoxic respiratory failure possibly secondary to flash pulmonary edema. He has a 10 year history of sub-optimally managed DMT2 and HTN. He was treated for ACS with coronary stenting in December 2019. In the ED, he w as intubated, needle decompressed (associated pneumothorax), and pigtail placed (associated lung parenchymal trauma). Upon arrival to the MICU, Thoracic surgery was consulted for chest tube placement and recommended pigtail clamp. Bedside echo showed preserved ejection fraction with no clear evidence of cardiogenic shock. CT Thorax showed moderate anterior left pneumothorax, left hilar consolidation, bilateral pleural effusions with adjacent atelectasis, and bronchial thickening. Patient was extubated 11/28/20 and pigtail removed on 11/29/20. He has since stabilized and has been transferred from the MICU to the pulmonary service. He is currently being managed as an inpatient by the chest service, thoracic surgery, endocrinology, and allied health professionals. He is currently accompanied by his . OBJECTIVE General: Alert, interactive, not acutely ill and pleseant. Lungs: Basilar breath sounds were diminished bilaterally on auscultation. Inspiratory and expiratorywheezes were present bilaterally. No cough or hemoptysis present Heart: S1 and S2 were present and faint. Regular rate and rhythm. No murmurs appreciated. No lower extremity edema present. JVP distention was not visible. Partridge beat was not palpable. Abdomen: Distended, soft and, nontender. No palpable masses or organomegaly. Bowel sounds normoactive. ENT: Hearing grossly intact. Ophthalmology: No visual disturbances noted. Dentition intact. No oral or pharyngeal erythema or lesions noted. MSK/DERM: Left shoulder stiffness noted. Dupuytren's contracture noted on left pinky finger. Resolving pruritic pinpoint non-confluent non-palpable rash on lower legs (bug bites?). Mental: Mood and affect congruent. Alert and oriented. Attention intact. No evidence of disorganizedthinking. Reliable history acid pumper. ASSESSMENT / PLAN Mr. Fairbanks is a 55 y.o. gentleman who was transferred to the pulmonary service from the MICU recovering from pulmonary edema of unknown origin and secondary acute type 2 respiratory failure. He is currently stable and being managed as an inpatient. #1 Edema Pulmonary (HCC) #2 Community Acquired Pneumonia #3 Acute Respiratory Failure with Hypercapnia and Hypoxia Mr. Fairbanks is currently receiving azithromycin and cefdinir to cover community acquired pneumonia until 11/30 and 12/02, respectively. Monitor for pending transthoracic echocardiogram results. Continue to water seal, suction, and monitor in place chest tube. Thoracics to continue following patient progress. #4 Coronary Stent Status Post #5 Hypertension Essential Primary Plan on consulting Mr. Fairbanks's customer service agent for further information regarding cardiac stenting history. Continue cardiac standard of care medications: - Acetaminophen tablet 1,000mg PO Q6H - Prasugrel tablet 10mg PO OD - Atorvastatin tablet 80mg PO Nocte - Metoprolol tartrate tablet 25mg PO BID Mr. Fairbanks has been recommenced on anti-hypertensive medicatoin to better control his underlying HTN. - Losartan tablet 50mg PO OD #6 Diabetes Mellitus Type 2 Hyperglycemia (HCC) Mr. Fairbanks was educated by a nurse practitioner x ray consultant on diabetes management. He has been commenced on long acting insulin. Please refer to the Consult note written on 11/29 for detailed recommendations. #7 ?Intermittent Upper Left Arm Burning Pain Through conversation, Mr. Fairbanks stated that he has been experiencing left upper- outer burning 8/10 arm pain following cardiac stenting. Pain is exacerbated upon sustained arm elevation. Upper limb x-ray showed no overt abnormalities. Reassured pain is probably MSK in origin and to seek further guidance from PCP. Current Activity/Mobility: BMAT Level 4 (Able to stand and walk; needs staff assist if fall risk factors identified) Diet: general diet Tubes/lines: PIV VTE prophylaxis: heparin Disposition: Uncertain with expected discharge date Stable to discharge criteria (not met): Tests/procedures/consults and Acute care monitoring needs Plan discussed with Pulmonary Ssis Architect, Dr. Powell, who was present during rosales portions of the evaluation today. [place] [phone] with any questions. Christian Foxp Medical Student #[id number] Kelsi Aguilar M.D. - 11/29/2020 10:16 AM CDT SUBJECTIVE I have personally seen and examined the patient, reviewed all relevant labs, radiology studies, and chart notes and have discussed the assessment and plan in person with the interprofessional critical care team. I have reviewed the critical care team note associated with today's encounter and agree with its contents with the following additions and exceptions: Mr. Fairbanks had no acute events overnight. Reports pain at the chest tube site. WBC count improving. Pigtail was removed by surgery service at the bedside today. PHYSICAL EXAMINATION BP 100/70 Pulse 89 Temp 36.8 ??C (Oral) Resp (!) 25 Ht 177 cm Wt 97.1 kg SpO2 (!) 88% BMI 30.99 kg/m?? General: Resting in bed. Heart: RRR. Chest: Left chest tube in place. ASSESSMENT/PLAN #1 Acute hypoxemic respiratory failure, improved #2 Pulmonary edema #3 Intraparenchymal pigtail drain in the left upper lobe with resultant pneumothorax #4 Elevated troponin #5 CAP #6 CAD s/p stenting #7 Uncontrolled DM type 2 with hyperglycemia Plan: 1. Follow up Thoracic Surgery recommendations. Pigtail removed. Surgical tube to suction for today. 2. Obtain echocardiogram. 3. Finish 5 day course of antibiotics for possible CAP given imaging findings of consolidation in the left perihilar region. 4. Will need diabetes education and home going medication plan. Please see the critical care note from today's date for the systems based plan of care. Constantino Wilson M.B.BLisaS. - 11/29/2020 9:10 AM CDT Of are no issues overnight. Patient is extubated to nasal cannula this morning. His chest tube does not have any air leak on bedside evaluation. The pigtail was removed bedside with no subsequent issues. The plan is to continue chest tube to suction for today and re-evaluation in the morning. Please page or or call thoracic surgery on-call team with any question. Javier Chen APRN, C.N.P., D.N.P. - 11/29/2020 7:42 AM CDT SUBJECTIVE Brief Summary: Mr. Fairbanks presents with acute hypercapnic and hypoxic respiratory failure felt to be most likely secondary to flash pulmonary edema. He was intubated at the field and transferred to the emergency department where there was concern for pneumothorax. Needle decompression was attempted and subsequent pigtail placement for iatrogenic pneumothorax. He was then admitted to the medical ICU for continued cares. Thoracic surgery was consulted due intraparenchymal course of pigtail. Surgical chest tube was placed at the bedside on 11/28. Interval Events: - Repeat troponin 109 - Metoprolol 25 mg BID started (home med) for tachycardia, hypertension -Thoracic consulted and placed surgical chest tube at bedside -Extubated 11/28 -Pigtail to remain for 24 hours and thoracic will consider removal afterwards. -Continued on diuresis to edema with -1.5 to 2 L. OBJECTIVE VITAL SIGNS I have reviewed the current vital sign data as applicable. PHYSICAL EXAM General appearance: chronically ill appearing, in no acute distress and cooperative Neurologic: alert, oriented and motor and sensory grossly intact HEENT: normocephalic, without obvious abnormality, pupils equal and reactive and conjunctivae/corneas clear Chest: clear to auscultation bilaterally and pigtail left upper chest, left surgical chest tube Heart: regular rate and rhythm Abdomen: distended, non-tender, soft and bowel sounds present Extremities: extremities normal, warm and well-perfused Skin: normal without ulcer DIAGNOSTICS I have reviewed relevant laboratory, imaging, and other diagnostics as applicable. ASSESSMENT / PLAN #1 Edema Pulmonary (HCC) #2 Diabetes Mellitus Type 2 Hyperglycemia (HCC) #3 Hypertension Essential Primary #4 Coronary Stent Status Post #5 Acute Respiratory Failure With Hypercapnia (HCC) #6 Acute Respiratory Failure With Hypoxia (HCC) Mr. Fairbanks presents with acute hypercapnic and hypoxic respiratory failure felt to be most likely secondary to flash pulmonary edema. ??He was initially intubated and pigtail placed in the emergency department which coursed into intraparenchymal area. Thoracic surgery was consulted and placed left surgical chest tube at bedside. Pigtail was clamped. He remained hemodynamically stable and was continuedon diuretics. Sedation was weaned off and was successfully extubated to nasal cannula. He was hypertensive therefore his home meds were resumed. Currently holding Effient until after pigtail removal. His pigtail remained clamped and is expected to be removed today. ?? PLAN BY SYSTEMS: ?? NEURO: -Tylenol, oxy PRN for pain -Continue to monitor ?? CARDIAC: - MAP Goal:??>65 - Off vasopressors. Hypertensive with SBP 170's -Metoprolol home dose resumed -Losartan 50 mg started (home dose 100 mg) -Effient held. Resume after pigtail removal -Atorvastatin and ASA continued - ECG:??performed in the ED, sinus tachycardia - Trend Troponins 60>140>109 - BNP 1197 - Diuresis:??net negative 2 L continue diuresis - Echocardiogram ordered ?? RESP: - Oxygen via??ventilator??to keep sats >??90% - CXR:pigtail catheter projecting over the left upper lung. Interval chest CT shows that this catheter is intraparenchymal. Small amount of surrounding opacity has not significantly changed consistent with adjacent hemorrhage. The moderate anterior left pneumothorax is not well demonstrated on this exam. Diffuse bilateral interstitial edema. Patchy focal areas of consolidation in the left mid and lower lung. -CT chest pneumothorax with pigtail tube intraparenchymal course to left upper lung. -Thoracics consulted and placed left surgical chest tube. Chest tube to water seal. No air leak. - Pigtail clamped to be removed today. ?? : - Electrolyte goals:?K: >4 and Mg: >2. -Continue diuresis to net negative 1 L today. - Monitor and replace as needed - Avoid nephrotoxic medications. - Remove krueger ?? GI: - Nutrition:Resume diet ?? ENDO: - RMG 202 - On SSI ?? ID: -Blood culture [id number] -WBC 15 - Abx: Received??Ceftriaxone/Azithromycin?? - Continue ceftriaxone and azithromycin for 5 days to complete CAP coverage ?? HEME: - Anticoagulation/DVT prophylaxis:??heparin SQ ?? ACCESS: - PIVs ?? DISPO - Code Status: Full code -Transfer to general care after pigtail removal. - Family updated?? Trinidad Momin R.R.T., L.R.T. - 11/28/2020 4:48 AM CDT Patient arrived to ED intubated with 8.0 ETT; tube placement confirmed by positive ETCO2 and bilateral breath sounds. CXR taken and ETT pulled back 1 cm secured 24 at the gums. Patient's initial ETCO2 reading high in the 60's to 70's. Patient hyperventilated in the 30's and taken to CT scan. Report called to MICU RT. Wanda Ruano L.G.SLuly, M.S.W. - 11/28/2020 4:16 AM CDT SUBJECTIVE Patient presents as a trauma page from community for medical work up. Patient is not assessed due toreceiving urgent medical evaluation. Patient was found down at [facility] in [place], [place]. and family were with him and they called 911. When EMS arrived they made the decision to life flight him to [facility] for medical work up.Patient was intubated and sedated upon arrival. Patient's real name is Julio Grier - ay 1965. Patient's is on her way ([facility] - [phone]) OBJECTIVE Emergency Department social media intern responded to the trauma bay in the context of a trauma page. Unidentified Ana Gaxiola was brought by [facility] Helicopter method of transport. ASSESSMENT / PLAN ASSESSMENT Patient is not currently alert/oriented? No further needs identified. A full psychosocial assessmentwas not completed due to the nature of the medical evaluation. PLAN Please contact social work should any needs arise. Ezio Jackson M.S.W. 11/28/2020 documented in this encounter H&P Notes Kelsi Aguilar M.D. - 11/28/2020 12:42 PM CDT CHIEF COMPLAINT Acute respiratory failure HISTORY OF PRESENT ILLNESS I have personally seen and examined the patient, reviewed all relevant labs, radiology studies, and chart notes and have discussed the assessment and plan in person with the interprofessional critical care team. I have reviewed the critical care team note associated with today's encounter and agree with its contents with the following additions and exceptions: Mr. Fairbanks presented in respiratory distress. Per report he had collapsed and was found by EMS to be diaphoretic and ashen. He was quickly intubated and transferred to [facility]. He was sedated and paralyzed.Noted to have severe respiratory acidosis. Blood glucose elevated to 549 on presentation. WBC 17.6. C XR showed pulmonary edema and a left deep sulcus sign with no definite pneumothorax. A needle decompression was performed and chest tube placed. A CT was done which shows that the pigtail is within theleft upper lung and that there is a left pneumothorax. Upon arrival to the ICU he was intubated and sedated. He is on low dose norepinephrine. Thoracic Surgery has been consulted. PHYSICAL EXAMINATION BP 100/70 Pulse 94 Temp 37.2 ??C (Bladder) Resp 16 Ht 177 cm Wt 97.1 kg SpO2 96% BMI 30.99 kg/m?? General: Intubated and sedated. Heart: RRR. Chest: Left pigtail catheter in place. Lungs: Mechanical breath sounds. Diminished on the left. Abdomen: Soft. Nondistended. Extremities: No LE edema. ASSESSMENT/PLAN #1 Acute hypoxemic respiratory failure requiring intubation and mechanical ventilation #2 Pulmonary edema #3 Intraparenchymal pigtail drain in the left upper lobe with resultant pneumothorax #4 Elevated troponin #5 CAP #6 CAD s/p stenting #7 Probable DM type 2 with hyperglycemia Plan: 1. Continue sedation with propofol and fentanyl for now 2. Monitor hemodynamics closely, MAP goal >65 3. NE for hemodynamic support 4. Follow up Thoracic Surgery recommendations and repeat CXR to ensure pneumothorax is not expandingwith mechanical ventilation 5. Trend troponins 6. Obtain echocardiogram 7. Diuresis for goal net negative 1.5-2 L 8. Continue antibiotics for possible CAP given imaging findings of consolidation in the left perihilar region Please see the critical care note from today's date for the systems based plan of care. Critical care time 40 minutes. This is time spent at this critically ill patient's bedside actively involved in patient care as well as the coordination of care and discussions with the patient's family. This does not include any procedural time which has been billed separately. Javier Chen, GEOVANNY, C.N.P., D.N.P. - 11/28/2020 7:46 AM CDT SUBJECTIVE CHIEF COMPLAINT Mason Fairbanks is a 55 y.o. male who presents with acute respiratory failure HISTORY OF PRESENT ILLNESS Mr. Fairbanks with history of hypertension and a recent cardiac stents placed in December presented with respiratory arrest. He is from [place] and woke up this morning with acute onset shortness of breath that Mr. Fairbanks described as wet. He also reportedly noted left arm tingling and pain and was concerned he was having a heart attack. His fiance drove him to the nearest gas station where they called EMS. He arrived to the [facility] ED with [facility]. On scene he was diaphoretic and ashen, his breath sounds were wet bilaterally. CPAP versus BPAP was trialed but he was quickly intubated, sedated and paralyzed. He was started on a nitroglycerin drip. ?? In the ED an initial VBG was acidotic with pH 7.02 and CO2 >100, he was quite hypoxic despite 100% FiO2, blood sugar was 470, EKG showed sinus tachycardia with HR in the 110s. He had a leukocytosis to 17.7, was hyperkalemic to 5.3, creatinine 1.01, initial troponin was 60, BNP was 1197. Initial CXRshowed significant pulmonary edema and left deep sulcus sign but no definitive pneumothorax, needle decompression was performed. A CXR 30 minutes later demonstrated a new lucency along the left cardiacborder - potential small pneumothorax. A chest tube was placed and a repeat CXR 45 minutes later showed the pigtail catheter, a new airspace opacity in the left mid lung. He was sedated with Propofol and Fentanyl and received rocuronium once to maintain adequate ventilation and facilitate procedures. The nitroglycerin gtt has been weaned off but he did receive a second dose of rocuronium. The CCU wasconsulted in the ED given concern for cardiogenic shock, they performed a bedside echo but did not see any clear cardiogenic shock. VBG an hour after he arrived was improving pH 7.12/CO2 97 but worsening hyperkalemia. Lactate was normal. COVID was negative. Given mechanical ventilation and concern forpulmonary primary process he was admitted to the MICU for further cares. ?? Upon arrival to the MICU, he was intubated and sedated. CT scan done prior to transfer to medical ICU did reveal a left pneumothorax and pigtail tube with intraparenchymal course and tip in the left upper lung. He had bilateral lung sounds. He was slightly hypotensive needing norepinephrine through peripheral IV. Thoracics was consulted due to the intraparenchymal course of the pigtail and recommended obtaining a chest x-ray. SYSTEMS REVIEW Review of systems not obtained due to patient factors: sedated. PAST MEDICAL/SURGICAL HISTORY History reviewed. No pertinent past medical history. PHYSICAL EXAMINATION General: Adult male lying in bed. No acute distress. Skin: No rash or lesion noted and skin warm and dry. Eyes: Pupils equal, round and reactive to light] ENT: Oropharynx anterior and posterior clear, mucous membranes moist. Currently on Mechanical Ventilator Heart: Regular rate and rhythm. S1 S2. No M/G/C/R noted. Lungs: Intubated and mechanically ventilated. Clear to auscultation with good air entry bilaterally but slightly diminished on the left. No accessory muscle usage. Left apical pigtail in place. Abdomen: Soft, nontender, and nondistended. Normoactive bowel sounds in all 4 quadrants. Extremities: Trace bilateral lower extremity edema. Mental: Intubated and sedated. DIAGNOSTICS I have reviewed relevant laboratory, imaging, and other diagnostics as applicable to this admission. ASSESSMENT / PLAN #1 Edema Pulmonary (HCC) #2 Diabetes Mellitus Type 2 Hyperglycemia (HCC) #3 Hypertension Essential Primary #4 Coronary Stent Status Post #5 Acute Respiratory Failure With Hypercapnia (HCC) #6 Acute Respiratory Failure With Hypoxia (HCC) Mr. Fairbanks presents with acute hypercapnic and hypoxic respiratory failure felt to be most likely secondary to flash pulmonary edema. We will provide supportive cares while we optimize his respiratory status. ?? PLAN BY SYSTEMS: ?? NEURO: - Sedation: Propofol/Fentanyl - Has received paralytic several times ?? CARDIAC: - MAP Goal: >65 - Vasoactive meds: on peripheral nor epi -Place Central access - ECG: performed in the ED, sinus tachycardia - Trend Troponins 60>140 - BNP 1197 - Diuresis: net negative 2 L today - Obtain echocardiogram ?? RESP: - Oxygen via ventilator to keep sats > 90% - CXR:pigtail catheter projecting over the left upper lung. Interval chest CT shows that this catheter is intraparenchymal. Small amount of surrounding opacity has not significantly changed consistent with adjacent hemorrhage. The moderate anterior left pneumothorax is not well demonstrated on this exam. Diffuse bilateral interstitial edema. Patchy focal areas of consolidation in the left mid and lower lung. -CT chest pneumothorax with pigtail tube intraparenchymal course to left upper lung. -Repeat ABG -Thoracics consulted. Will discuss possible placement of alternate tube prior to removal of existingpigtail. ?? : - Electrolyte goals:?? K: >4 and Mg: >2. -Continue diuresis to net negative 2 L today. - Monitor and replace as needed - Avoid nephrotoxic medications. - UCI for strict I&Os ?? GI: - Nutrition: NPO for now ENDO: - RMGs >300 - Insulin gtt so RMGs Q1 hour for now ?? ID: - Obtain blood cultures, sputum culture if sputum production - Abx: Received Ceftriaxone/Azithromycin in ED - Continue these for now for CAP coverage ?? HEME: - Anticoagulation/DVT prophylaxis: heparin SQ ?? ACCESS: - PIVs ?? DISPO - Code Status: Full code - ICU level of cares. - Family updated - Will need to verify home medications documented in this encounter Procedure Notes Noreen Farrell M.B.B.S. - 11/28/2020 10:51 AM CDTAssociated Order(s): Pleural Drains Post-Procedure Diagnose(s): Other Pneumothorax Pleural Drains Date/Time: 11/28/2020 10:51 AM Performed by: Noreen Farrell M.B.B.S. Authorized by: Noreen Farrell M.B.B.S. Care team members present 1. Noreen Farrell M.B.B.S. 2. Preethi Grimaldo M.D. 3. Nacho Torres M.D. PROCEDURE DETAILS Placement location: left anterior axillary Intercostal space: 5th Tube type: chest tube Insertion of wire with dilators: no Tube size (Fr): 28 Tube characteristics: straight Tube connected to drainage device at: -20 suction Drainage characteristics: bloody Ultrasound image guidance used to localize target, identify at risk structures, and dynamically usedto direct therapy to the target. Image(s) not saved. CONSENT Consent obtained: written UNIVERSAL PROTOCOL All relevant documentation and testing were reviewed and available. All required blood products, implants, devices and or special equipment were made available as applicable. Pre-procedure verificationwas conducted and the correct site was marked if required. A fire risk assessment was done as applicable. The procedural time-out was conducted prior to performing the procedure and confirmed in a procedural pause. PRE-PROCEDURE DETAILS Indications: pneumothorax Appropriate hand hygiene, gown, cap, mask, protective eyewear, sterile gloves, skin preparation, sterile drape, and strict aseptic technique were utilized as applicable for the procedure. Site preparation: chlorhexidine SEDATION / ANESTHESIA Anesthesia method: already under sedation POST-PROCEDURE DETAILS Post-insertion x-ray performed: yes X-ray findings: tube in good position Procedure successful: yes Complications: no apparent complications Krystian Cason M.D. - 11/28/2020 6:37 AM CDTAssociated Order(s): Critical Care Procedure Critical Care Performed by: Krystian Cason M.D. Authorized by: Krystian Cason M.D. Critical care provider statement: Critical care total time (minutes): 60 Critical care time was exclusive of: separately billable procedures and treating other patients and teaching time Critical care was necessary to treat or prevent imminent or life-threatening deterioration of the following conditions: respiratory failure Critical care was time spent personally by me on the following activities: Development of treatment plan with patient or surrogate, discussions with consultants, evaluation ofpatient's response to treatment, examination of patient, obtaining history from patient or surrogate, ordering and review of laboratory studies, ordering and review of radiographic studies, re-evaluation of patient's condition, review of old charts and pulse oximetry Krystian Cason M.D. 11/28/20 0637 Luis Santoro, R.R.T., L.R.T. - 11/28/2020 5:45 AM CDTAssociated Order(s): Place arterial catheter No upper extremity site restrictions Place arterial catheter No upper extremity site restrictions Date/Time: 11/28/2020 5:45 AM Performed by: Luis Santoro R.R.T., L.R.TLisa Authorized by: Hubert Smith M.D. Care team members present 1. Trinidad Momin, R.R.T., L.R.T. 3. Luis Santoro R.R.T., L.R.T. 5. Krystian Cason M.D. Location: ED PROCEDURE DETAILS: Line type: arterial Laterality: right Location: radial Location details: new site Age group: adult Catheter diameter: 20 Ga Technique: ultrasound guided Monitored: yes Number of attempts: 1 CONSENT Consent obtained: written PRE-PROCEDURE DETAILS: Indication(s): hemodynamic monitoring Appropriate hand hygiene, gown, cap, mask, protective eyewear, sterile gloves, skin preparation, sterile drape, and strict aseptic technique were utilized as applicable for the procedure.: yes Skin preparation: chlorhexidine SEDATION / ANESTHESIA Anesthesia method: none POST-PROCEDURE DETAILS: Procedure completed successfully: yes Line secured: secured with sutureless device Complications - arterial: none Patient tolerance of procedure: successful Hubert Smith M.D. - 11/28/2020 4:25 AM CDTAssociated Order(s): Chest Tube Insertion Procedure Chest Tube Insertion Date/Time: 11/28/2020 4:25 AM Performed by: Hubert Smith M.D. Authorized by: Krystian Cason M.D. Care team members present 1. Krystian Cason M.D. PROCEDURE DETAILS Needle decompression: yes Placement location: left mid-clavicular Intercostal space: 2nd Tube type: pigtail Insertion of wire with dilators: yes Tube connected to drainage device at: water seal Drainage characteristics: air Ultrasound image guidance used to localize target, identify at risk structures, and dynamically usedto direct therapy to the target. Image(s) not saved. Additional procedure details: Procedure attempted initially at left anterior axillary line, however due to body habitus, unable to reach pleural space here. Wire placed through pre-existing needle usedto decompress left chest at 2nd ICS with successful pigtail insertion at this area over wire CONSENT Consent obtained: none - emergent situation UNIVERSAL PROTOCOL All relevant documentation and testing were reviewed and available. All required blood products, implants, devices and or special equipment were made available as applicable. Pre-procedure verificationwas conducted and the correct site was marked if required. A fire risk assessment was done as applicable. The procedural time-out was conducted prior to performing the procedure and confirmed in a procedural pause. PRE-PROCEDURE DETAILS Indications: pneumothorax Site preparation: chlorhexidine SEDATION / ANESTHESIA Anesthesia method: already under sedation POST-PROCEDURE DETAILS Post-insertion x-ray performed: yes X-ray findings: tube in good position Procedure successful: yes Complications: no apparent complications Hubert Smith M.D. Resident 11/28/20 0428 documented in this encounter Consult Notes Desiree Stone M.D. - 12/01/2020 1:42 PM CDTAssociated Order(s): IP CONSULT TO INTERVENTIONAL PULMONOLOGY INTERVENTIONAL PULMONARY CONSULT SERVICE CONSULT NOTE REFERRING SERVICE [facility] Pulmonary Medicine [facility] REASON FOR CONSULT Left-sided pneumothorax. HISTORY OF PRESENT ILLNESS Mr. Fairbanks is a 55-year-old gentleman with medical comorbidities significant for moderate multivesselcoronary artery disease, status post PCI with stent placement, diabetes mellitus and hypertension. The patient presented to the emergency room on 11/28/2020 with acute hypoxic and hypercapnic respiratoryfailure requiring intubation and mechanical ventilation. Chest x-ray showed significant pulmonary edema and left deep sulcus sign but no definite pneumothorax. Needle decompression was performed on theleft side and chest tube was placed. The patient was then admitted to the intensive care unit for further management. CT scan of the chest without IV contrast revealed left pneumothorax and a thoracostomy tube with intraparenchymal course and tip in the left upper lung. Thoracic surgery was consulted and a surgical tube was placed. The patient was treated with aggressive diuresis, vasopressors and antibiotics. He was successfully extubated and the pigtail catheter was removed on 11/29/2020. The patient was gradually improved and remained stable after extubation. He was transferred out of the ICU to the chest Service on 11/29/2020. The surgical chest tube was removed today. Repeat chest x-ray revealed left moderate size pneumothorax. The Interventional Pulmonary consult service was consulted for evaluation and management. During my evaluation, the patient was resting in bed without complaints of shortness of breath or chest pain. I have reviewed and updated the following: Past Medical History, Family History, Social History, andAllergies. Current Outpatient Medications on File Prior to Encounter: ??? aspirin [address] tablet, Take 81 mg by mouth at bedtime. ??? atorvastatin (LIPITOR) 40 mg tablet, Take 80 mg by mouth at bedtime. ??? losartan (COZAAR) 100 mg tablet, Take 100 mg by mouth daily. ??? metoprolol tartrate (LOPRESSOR) 25 mg tablet, Take 25 mg by mouth 2 (two) times a day. ??? multivitamin tablet, Take 1 tablet by mouth daily. Diabetic Complete Multivitamin ??? omeprazole (PriLOSEC) [address] capsule, Take 40 mg by mouth 2 (two) times a day before breakfastand dinner. ??? prasugreL (EFFIENT) 10 mg tablet, Take 10 mg by mouth daily. REVIEW OF SYSTEMS Pertinent items are noted in HPI; all other review of systems was negative. OBJECTIVE VITAL SIGNS Temperature: [36.4 ??C-36.6 ??C] 36.4 ??C Heart Rate: [71-85] 76 Resp Rate: [18-26] 18 Blood Pressure: (150-158)/(89-91) 151/89 SpO2: [90 %-96 %] 91 % Flow Rate (L/min): [2 L/min] 2 L/min Pulse Rate: [67-82] 77 Admission Weight: 97.1 kg Current Weight: 97.1 kg PHYSICAL EXAMINATION General: He was lying in bed in no acute distress. Respiratory: He was breathing comfortably resting in bed on 2 L of oxygen per nasal cannula with oxygen saturation in the mid 90s. Mental: Alert and oriented x3. DIAGNOSTICS Bedside thoracic ultrasound was performed. Lung point could not be observed with limited exam due todressing around the previously removed surgical chest tube. I have personally reviewed medical records, labs and imaging studies. ASSESSMENT / PLAN #1 Left-sided pneumothorax, probable iatrogenic after nasal compression at times for suspected tension pneumothorax #2 Ischemic cardiomyopathy The patient is currently hemodynamically stable. The surgical chest tube was removed early today by Thoracic Surgery. Chest x-ray this morning after removal of the surgical chest tube revealed left-sided moderate size pneumothorax. We recommended repeat chest x-ray this afternoon which revealed a slight decrease in the size of the left pneumothorax. Cardiology is planning on taking the patient to the orthodontic laboratory technician for angio tomorrow. Recommendation: 1. No need for placement of a thoracostomy tube at this time since the left- sided pneumothorax decreased in size with repeat chest x-ray this afternoon. 2. Please obtain chest x-ray in the morning follow up on the pneumothorax. If the pneumothorax progress and remains small in size, may need to consult Interventional Radiology for placement of a thoracostomy tube for drainage. Thank you for the consult.??Will continue to follow. ??Please page the IP??Consult service at [phone]??with any questions or concerns. ?? The above patient was discussed with ??Luis Roa??who is??in agreement??with??the above??plan. ?? Desiree Stone MD Division of Pulmonary and Critical Care Medicine, Fellow ?? Associated attestation - Luis Roa M.D. - 12/01/2020 11:15 PM CDT I saw and evaluated the patient, participating in the rosales portions of the service. I reviewed the fellow???s note. I agree with the fellow???s findings and plan. ASSESSMENT / PLAN #1 Left-sided pneumothorax, iatrogenic now with exvacuo pleural air Since the Chest tube revoval earlier today he had developed a PTX. Subsequent imaging showed this sarah smaller supporting no airleak and exvacuo air. No need for placement of a pleural drain at this point. Will plan on a CXR in AM. #2 Ischemic cardiomyopathy Satinder Sotelo - 11/30/2020 6:24 PM CDTAssociated Order(s): IP CONSULT TO DRAWING IN MACHINE TENDER DOUGH MOLDER HAND Encounter: Spiritual care Situation: Mr. Fairbanks asked for prayers for healing so that he could go home. He was able to recognize that he has improved quite a bit from the time he came in the hospital via helicopter. Family: He had 1 family member with him Elaine Tradition: Mr. Fairbanks is a Baptism who currently attends a [employer] alevism in [place]. Prayers were said with the patient and his family member. Plan: Will remain available for spiritual care as needed or requested. [phone] ([place]). Christian Ascencio M.D. - 11/30/2020 4:53 PM CDTAssociated Order(s): IP CONSULT TO CARDIOLOGY CARDIOLOGY CONSULT NOTE SUBJECTIVE Cardiology consult (hospital) Referring Provider: Esthela Ryder M.D. REASON FOR CONSULT Elevated troponin/echo changes HISTORY OF PRESENT ILLNESS Mr. Mason Fairbanks is a 55 y.o. male history of CAD, STEMI 12/2019 s/p PCI of LAD, type 2 diabetes mellitus, hypertension, hyperlipidemia, tobacco use, and a strong family history of early coronary disease. Per outside records, he suffered a STEMI in 12/2019. LAD was found to be the culprit lesion and underwent PCI. He also had moderate disease in the mid LAD, D1, proximal left circumflex, om 2, distal left circum flex, and RCA. EF reportedly 45% just after this. An EKG from 9 days after the event showedQ-waves in the septal leads. His home regimen consisted of aspirin , prasugrel, lisinopril 10 mg, metoprolol tartrate 25 mg b.i.d., atorvastatin 40 mg. More recent echo from 07/19/2020 showed an EF of 50-55% with mild LVH, apical akinesis, trivial TR. Since his HI , he has been chest pain free. Two weeks prior to presentation to [facility], he began experiencing intermittent episodes of chest pain and left arm burning very similar to his previous HI. the day prior to presentation, he had persistent chest pain, left arm burning, diaphoresis, and nausea aswell as shortness of breath which progressed to the point hypoxic respiratory failure causing him topresent on 11/28. He was intubated en route to the ED and initial VBG with pH 7.02/100/72 despite 100% FiO2. Glucose 470. Leukocytosis of 17, hyperkalemia to 5.3, chest x-ray with pulmonary edema. Lactate was normal. There was concern for a left pneumothorax a needle decompression was complete performed. There was worsening on subsequent imaging site chest tube was placed the left. Troponin trend on 11/28 was 60-140-190. Another troponin obtained the night of 11/28 was 109. NT proBNP 1197. An echocardiogram obtained 11/29 showed enlarged LV size with EF 44%, RVSP 45, and akinesis of the apex and mid anterior, anteroseptal, and anterolateral wall. He was admitted to MICU and was aggressively diuresed. He was also briefly on pressors and was started on antibiotics for CAP. He transferred to the chest Service on 11/29. He has been restarted on hisGDMT. He no longer has chest pain but has not exerted himself. Breathing is improved. Chest tube remains in place to water seal. He smoked until his last HI. no alcohol or drug use. Lives part-time in [place] and part-time in [place]. PAST MEDICAL/SURGICAL HISTORY See above SOCIAL HISTORY Social History Socioeconomic History ??? Marital status: Spouse name: None ??? Number of children: None ??? Years of education: None ??? Highest education level: None Occupational History ??? None Tobacco Use ??? Smoking status: Former Smoker Types: Cigarettes Quit date: 2007 Years since quittin.6 Substance and Sexual Activity ??? Alcohol use: None ??? Drug use: None ??? Sexual activity: None Other Topics Concern ??? None Social History Narrative ??? None Social Determinants of Health Financial Resource Strain: ??? Difficulty of Paying Living Expenses: Food Insecurity: ??? Worried About Running Out of Food in the Last Year: ??? Ran Out of Food in the Last Year: Transportation Needs: ??? Lack of Transportation (Medical): ??? Lack of Transportation (Non-Medical): Physical Activity: ??? Days of Exercise per Week: ??? Minutes of Exercise per Session: Stress: ??? Feeling of Stress : Social Connections: ??? Frequency of Communication with Friends and Family: ??? Frequency of Social Gatherings with Friends and Family: ??? Attends Hindu Services: ??? Active Member of Clubs or Organizations: ??? Attends Club or Organization Meetings: ??? Marital Status: Intimate Partner Violence: ??? Fear of Current or Ex-Partner: ??? Emotionally Abused: ??? Physically Abused: ??? Sexually Abused: FAMILY HISTORY History reviewed. No pertinent family history. OBJECTIVE Vitals: 11/30/20 1535 11/30/20 1538 11/30/20 1600 11/30/20 1635 BP: (!) 150/91 Patient Position: Semi-recumbent Pulse: 76 82 Heart Rate: 76 85 Temp: 36.5 ??C Resp: (!) 25 20 Height: Weight: SpO2: 94% TempSrc: Oral Pain Score: 8 4 Pain Location: Chest Admission Weight: 97.1 kg Current Weight: 97.1 kg PHYSICAL EXAMINATION General: No distress, comfortably resting on bed. HEENT: Normocephalic, atraumatic Heart: Regular rate and rhythm, normal S1-S2, no murmurs, no appreciable JVD. Lungs: Coarse on left. Diminished at the bases. No discrete crackles. Abdomen: Obese. Extremities: No peripheral edema or deformities. Neuro: Alert and oriented, moving all extremities, face symmetric Skin: No rash on visible skin. I/Os Intake/Output Summary (Last 24 hours) at 11/30/2020 1653 Last data filed at 11/30/2020 1615 Gross per 24 hour Intake 700 ml Output 1280 ml Net -580 ml DIAGNOSTICS I have reviewed diagnostics. See HPI for a summary. ASSESSMENT / PLAN 55M with a history of CAD, STEMI 12/2019 s/p PCI of LAD, type 2 diabetes mellitus, hypertension, hyperlipidemia, tobacco use, and a strong family history of early coronary disease. We are consulted fora new drop in EF and troponin elevation. #1. Moderate multivessel coronary artery disease #2. STEMI in 12/2020 s/p PCI of LAD #3. Likely subacute myocardial infarction Mr. Fairbanks's history of the days leading to presentation are suggestive of an ischemic event which luz likely cause of his pulmonary edema respiratory failure. Looking back at his records from outside,his EF was 55% June and is now down to 44%. He previously had apical akinesis and now has mid anterior, anteroseptal, and anterolateral akinesis (although we do not have the actual images so it is tough to compare). He did have a mild troponin elevation upon arrival on the which is since normalized. His EKG shows Q-waves in the septal leads which is unchanged from his previous EKG from outside on 01/17/2020. In-stent thrombosis is a possibility although he reports perfect compliance with his DAPT. He does have moderate coronary disease throughout the remainder of the left-sided circulation, soa circumflex lesion is another possibility given the distribution of regional wall motion abnormality on echo. Regardless, our recommendation at this time would be to take for a coronary angiogram which could happen as early as tomorrow, but as long as he is not having active chest pain can be deferred as necessary based on the primary team's other plans for him. RECOMMENDATIONS 1. Coronary angiography recommended. 2. Continue GDMT with aspirin, prasugrel, atorvastatin, losartan, metoprolol. 3. Encourage tobacco cessation (unclear if he continues smoking) and diabetes control (a1c 10.3). Staffed with Dr. Crawford. Thank you for involving us in the care of this patient. Please contact the Cardiology Consult Service pager with any questions or concerns. Associated attestation - Mee Crawford M.D. - 11/30/2020 9:19 PM CDT Asked by Pulmonary Med to assess this 55 yo man re reduced EF on echo and elevated troponin. I visited and examined the pt and discussed the plan with Dr. Ascencio. I agree with the findings, assessment and plan as detailed in his note of 11/30/20. Assessment: It is likely that the pt sustained repeat myocardial infarction on November 26 (2 hours of chest pain). The compromise in his LV systolic function in the setting of hypertension led to his pulmonary edema on 11/27. By history, he has CAD involving both LAD and LCX. His anterior infarct may have been completed (q waves in ECG). Plan for cor angio either tomorrow or Saturday, depending on progress with chest tube and pulmonary status; he will need to be supine for the procedure. Agree with recs of Dr. Ascencio. Erica Fregoso L.I.C.S.W., M.S.W. - 11/29/2020 1:30 PM CDT Psychosocial Assessment SUBJECTIVE DEMOGRAPHIC INFORMATION Referral Source: Case Screening Referral Reason: Psychosocial Assessment Person(s) present during interview: Patient, Previous Psychosocial Assessment : No Primary care clinic and provider: / No primary care provider on file. They were advised of the various topics that will be assessed during this evaluation. They consentedto proceed. The information provided in the assessment is based on review of the medical record as well as the interview. They were advised that the content of this interview will be shared with the health care team. It was discussed that staff are mandated reporters and they reported understanding. HISTORY OF PRESENT ILLNESS Shortness of breath SOCIAL HISTORY Family / Household: The patient lives with his . Spirituality / Mosque / Culture: None Psychosocial Risk Factors impacting the patient: none Abuse, Neglect, Maltreatment, Trauma: Current: Patient denied. ENVIRONMENTAL SUPPORTS Current Living Situation: The patient lives in [place], but reports also having a home in [place]. Anticipated modifications to the patient's home environment: None FUNCTIONAL STATUS (ADL's and IADL's) Dressing: independent Feeding: independent Bathing: independent Grooming: independent Toileting: independent Transfer to/from Bed, Chair, Etc.: independent Mobility: independent Meal Prep: independent Medication Setup/Administration: independent Telephone Use: independent Housekeeping: independent Shopping: independent Managing Finances: independent It is anticipated that the patient will need assistance with pending medical evaluation ASSISTIVE DEVICES Patient has the following equipment: none Patient anticipates potentially needing the following additional equipment: pending medical evaluation Transportation needs: independent to drive FORMAL AND INFORMAL RESOURCES The patient reports no formal supports in place. FINANCES/INSURANCE Primary insurance: MEDICARE A AND B Secondary insurance: N/A Financial concerns: No ADVANCE DIRECTIVES Education provided on the benefits of completing an Advance Directive and resources that may assist them in this process including access to a notary. Offered Advance Health Care Planning: Making Lenore Known [id number] booklet, which was accepted. Patient to complete an Advance Directive if desired. If the Advance Directive is completed, the patient retains the original and a copy is sent to scanning to be added to the patient's electronic health record. OBJECTIVE Suicide Risk and Safety Risk Assessment: Suicidal: No Homicidal: No Current Stressors Medical condition/hospitalization Coping Skills/Strengths Family support ASSESSMENT / PLAN DISCUSSION Transplant Nurse met with the patient/family to complete psychosocial assessment, provide ongoing emotional support, and to discuss psychoeducation of resources. Introduced Social Work and their role in the inpatient setting. Informed patient/family of Social Work's legal responsibility as a mandated personal lines insurance advisor and what that entails in regards to concern for imminent danger of vulnerable persons. Patient/family express understanding. The patient states he is independent in cares with no medical equipment use and no formal supports. His discusses they will monitor his blood pressure better now, but otherwise they anticipate no new needs at the time of discharge. The patient reports no concerns related to mental health, safety,or chemical dependency. Patient does not require a Senior LinkAge Line referral. Discussed with patient/family community resources for dismissal. Patient/family declined additional resources. IMPRESSION It appears that the patient/family has insight into their needs at discharge and are planning appropriately at this time. INTERVENTIONS -Completed psychosocial assessment -Provided education on role of Social Work in the hospital setting, offered assistance if any needs arise. -Assessed needs, identified risk and protective factors -Supportive counseling: strengths-based approach, empathic communication techniques, and rapport building PLAN Social work will continue to follow. Anticipated barriers to the transition of care/plan: No barriers identified. Ghada Baker, M.S.W. 11/29/2020 Jelani Kirkpatrick APRN C.N.P., D.N.P. - 11/29/2020 12:05 PM CDTAssociated Order(s): IP CONSULT TO DIABETES SUBJECTIVE Diabetes consult (hospital) Referring Provider: Sheridan Good APRN, C.N.PLisa CHIEF COMPLAINT Patient seen today for management of diabetes. The patient is admitted on 11/28/2020 for Edema Pulmonary (HCC) HISTORY OF PRESENT ILLNESS DIABETES HISTORY History of diabetes mellitus, type 2. Diagnosed years ago. PREADMISSION THERAPY None. Patient had been on insulin (unsure what kind or how many injections he took) and metformin (no GI side effects) for 1 year in the past. Stopped medications when blood glucoses improved after losing 100 lbs. DIABETES COMPLICATIONS Coronary artery disease. CO-MORBIDITIES Hypertension and Obesity, BMI (Calculated): 31 kg/m??. DIET: Eats 2 meals a day. Generally skips breakfast. Snacks between meals and at bedtime. states he is eating more candy recently, like Shayne and Ikes and Hot Tamales. Enjoys pretzels and chips. WEIGHT: Patients weight has been stable but he lost 100 lbs about 4 years ago. SCREENING: No recent eye exam. Encourage updated exam. ACTIVITY: No regular exercise. GLUCOSE MONITORING: The patient does not monitor blood glucose at home HYPOGLYCEMIA: Patient experienced hypoglycemia in the past while on insulin but hasn't taken in years. Patient would experience shaking. Denies episodes requiring assistance. HOSPITAL COURSE: Past 24 hour blood glucose readings: Recent Labs 11/29/20 0807 11/29/20 0346 11/28/20 2140 11/28/20 1707 11/28/20 1328 11/28/20 1246 GLUCOSEPOC 189 H -- 183 H 211 H 129 111 GLUCOSE -- 202 H -- -- -- -- Yesterday, received: Regular insulin 27.2 units via IV infusion. Steroids: None Current Diet Adult Diet Regular; 2,000 mg Na starting at 11/28 1510 REVIEW OF SYSTEMS Pertinent items are noted in HPI PREADMISSION MEDICATION: Diabetes medication(s) were reconciled on 11/29/2020 OBJECTIVE VITALS Temperature: 36.8 ??C Heart Rate: 76 Resp Rate: 16 BP Location: Right arm Arterial Line BP: 130/61 FiO2 (%): 40 % SpO2: 90 % Flow Rate (L/min): 2 L/min Height: 177 cm Weight: 97.1 kg Body mass index is 30.99 kg/m??. PHYSICAL EXAMINATION Constitutional General: He is not in acute distress. Appearance: He is obese. He is not diaphoretic. HENT Head: Normocephalic and atraumatic. Pulmonary Effort: Pulmonary effort is normal. No respiratory distress. Neurological Mental Status: He is alert and oriented to person, place, and time. Psychiatric Mood and Affect: Mood normal. Behavior: Behavior normal. DIAGNOSTICS I have reviewed relevant diagnostics and labs. Lab Results Component Value Date HGBA1C 10.3 (H) 11/28/2020 Estimated Creatinine Clearance: 106.7 mL/min (by C-G formula based on SCr of 0.92 mg/dL). Lab Results Component Value Date CREATININE 0.92 11/29/2020 ASSESSMENT / PLAN #1 Diabetes mellitus, type 2, uncontrolled with hyperglycemia A1c 10.3% #2 Coronary Artery Disease #3 Obesity #4 Hypertension PLAN - Blood glucose monitoring: four times daily - Glucose goal: 140-180 mg/dL - Basal: No basal insulin. Will continue to assess need. - Mealtime: NovoLog 4 units with meals. Hold if eating less than 50%. - Correction scale: NovoLog moderate correction scale three times a day - DCS will evaluate and adjust insulin doses as indicated to achieve glycemic goal. - Consults: Diabetes Educators and [employer] Shop Supervisor ANTICIPATED DISMISSAL PLAN: Given elevated A1c and hyperglycemia on no therapy, plan to reinitiate metformin with titration to goal of 1000 mg BID pending any contraindications. Also consider starting SGLT2 given cardiac benefit and/or basal insulin pending hospital requirements. Patient is currently seeking to find a PCP as followup will be critical. Encouraged routine eye exams. Encouraged lifestyle and dietary modifications for healthy weight. Will continue to assess for final plan and doses. Blood glucose frequency: twice daily Goal: 100-140 mg/dL Please page DCS within 24 hours prior to hospital dismissal for final dismissal recommendations. Discussed above plan with patient who is alert and oriented and in agreement. Thank you for the consult. DCS Pager [phone] will follow. Call primary service for diabetes concerns between [phone]. Primary service to contact DCS via hospital media operator for questions. Nacho Torres M.D. - 11/28/2020 10:36 AM CDTAssociated Order(s): Thoracic Surgery consult (hospital) SUBJECTIVE Thoracic Surgery consult (hospital) Referring Provider: Sheridan Good APRN, C.N.P. Reason for Consult: Intraparenchymal pigtail catheter Primary Problem Edema Pulmonary (HCC) History of Present Illness 55-year-old male presented to the emergency department in the early hours this morning with acute hypercarbic respiratory failure. As part of his emergency department resuscitation he underwent left 2nd intercostal space Angiocath decompression, and ultimately the Angiocath was used for Seldinger technique to place an intrathoracic pigtail drain. Subsequent CT scan demonstrated intraparenchymal position of the pigtail drain. Thoracic surgery was consulted. We recommended a stat x-ray, to confirm no development of tension pneumothorax or hemothorax. This was negative for those purposes. Past medical history Coronary intervention of some kind, unclear Past surgical history Unknown Medications Aspirin Prasugrel Statin Others per record Allergies None Social Lives in [place]. Vacationing at cabin in [place] at time of incident. The following portions of the patient's history were reviewed and updated as appropriate: allergies,current medications, family history, medical history, social history, surgical history and problem list. Review of Systems REVIEW OF SYSTEMS Unable to obtain due to patient status OBJECTIVE Vital Signs Height: 177 cm, Weight: 97.1 kg, BMI (Calculated): 31 kg/m??, Blood Pressure: 100/70, Heart Rate: 95, Pulse Rate: 95, Resp Rate: 20, Temperature: (!) 35.8 ??C, SpO2: 98 % Lab Results Component Value Date WBC 21.2 (H) 11/28/2020 WBC 17.6 (H) 11/28/2020 HGB 12.4 (L) 11/28/2020 HGB 13.8 11/28/2020 HCT 39.2 11/28/2020 HCT 43.5 11/28/2020 PLT 278 11/28/2020 PLT 356 (H) 11/28/2020 NA 141 11/28/2020 KBLOOD 5.4 (H) 11/28/2020 KPLASMA 5.2 11/28/2020 CL 108 (H) 11/28/2020 BICARB 27 11/28/2020 CREATININE 1.08 11/28/2020 BUN 21 11/28/2020 INR 1.0 11/28/2020 Physical Exam Physical Exam General: Critically ill, intubated and sedated Eyes: No scleral icterus HEENT: Endotracheal tube, moist mucous membrane Chest: Pigtail drain entering the chest in the left upper chest in approximately the midclavicular line. Puncture wounds left chest wall from prior pleural drain. Mechanically ventilated. Abdomen: No surgical scars Skin: Warm and dry Diagnostics Diagnostics Chest x-rays, CT scan reviewed Labs reviewed ASSESSMENT / PLAN #1 Edema Pulmonary (HCC) #2 Diabetes Mellitus Type 2 Hyperglycemia (HCC) #3 Hypertension Essential Primary #4 Coronary Stent Status Post #5 Acute Respiratory Failure With Hypercapnia (HCC) #6 Acute Respiratory Failure With Hypoxia (HCC) 55-year-old male on dual anti-platelet therapy with left chest intraparenchymal pigtail drain in theleft upper lobe. We were consulted for further management. We placed a 28 Polish left chest tube at the bedside. Please see procedure note for additional details. Postplacement x-ray demonstrates the tube is in the chest, though the side hole is adjacent chest wall. This was repositioned and subsequent CXR demonstrated good position. The pigtail catheter was clamped. Recommendations: -Maintain 28 Polish chest tube to suction -20 cm water -Keep pigtail catheter clamped. -Tomorrow we will remove the pigtail catheter and anticipate removing the chest tube in 24-48 hours if no significant bleeding or leak. maria eleo Surgery Patient seen and evaluated with Dr. Grimaldo Pradeep Rudd M.D. - 11/28/2020 4:49 AM CDT Brief CCU Consult Note: I was asked to evaluate Mr. Fairbanks in the ED for pulmonary edema. We do not have much history other than reported history of HTN and a previous cardiac stent (unknown location). He was reportedly diaphoretic and having SOB when EMS evaluated him. Initial concern for was for pulmonary edema. He was trialed on CPAP but decompensated requiring intubation. He was started on a nitro drip and brought to theED. No history was able to be obtained given the patient was intubated. Exam revealed rhonchorous breathsounds bilaterally, warm extremities, and no peripheral edema. A quick bedside TTE (although limitedwindows) showed relatively preserved EF without any significant MR. No pericardial effusion. CXR wassignificant for pulmonary edema and possible pneumothorax for which a chest tube was placed. ABG showed significant acidosis 7.12 with pCO2 97 (initially 7.02, >100). He had an elevated WBC and was hyperkalemic to 5.9 and hyperglycemic >500. Initial troponin was elevated at 60 and NTproBNP was 1197. EKG showed sinus tachycardia (HR 115) with nonspecific ST/T changes but no acute ST elevation orT wave inversions. Given the metabolic derangements, hypoxic and hypercapnic respiratory failure, and possible pneumothorax s/p chest tube, he might be best served in the MICU. His troponins should be trended but initial elevation could be a Type 2 NSTEMI in the setting of acute pulmonary edema and sinus tachycardia. Please also obtain a formal TTE tomorrow. If possible, records from his recent catheterization and stent procedure would be helpful. Please call CCU if there are any further questions. Pradeep Rudd MD CCU Fellow documented in this encounter Nursing Notes Analia Das R.N. - 12/05/2020 4:18 PM CDT Shift Goals: Clinical Goals for the Shift: Patient will remain vitally stable and prepared for discharge Identify possible barriers to meeting goals/advancing plan of care: none End of Shift Summary: Patient stable for discharge. Education completed regarding dressing changes, symptoms to monitor, medication changes, and local followup. All questions answered. Leora Cho R.N. - 12/05/2020 5:54 AM CDT Problem: PAIN - ADULT Goal: PT VERBALIZES/DEMONSTRATES ADEQUATE COMFORT LEVEL OR BASELINE Outcome: Progressing Note: Patient reported 5-7/10 pain throughout shift. PRN oxycodone 5 mg was given consistently every3 hours along with scheduled tylenol. Non pharmalogical techniques were offered to patient and he kindly declined. Problem: RESPIRATORY - ADULT Goal: Achieves optimal ventilation and oxygenation Outcome: Progressing Note: Patient completed nocturnal study during shift. Patient qualified for oxygen and was put on 1LNC for the night. Shift Goals: Clinical Goals for the Shift: Patient will report adequete pain control throughout shift. Identify possible barriers to meeting goals/advancing plan of care: diagnosis End of Shift Summary: See above for details. Jim Bradley M.S.Jessica, R.IRVING Lopez - 12/04/2020 4:57 PM CDT Shift Goals: Clinical Goals for the Shift: Patient will rate pain 5 or less on a 0-10 pain score Identify possible barriers to meeting goals/advancing plan of care: diagnosis End of Shift Summary: see note below. Vital signs remained stable. Patient on 1L of O2 via nasal cannula to sustain O2 >90%. Problem: PAIN - ADULT Goal: PT VERBALIZES/DEMONSTRATES ADEQUATE COMFORT LEVEL OR BASELINE Outcome: Progressing: Pt rated pain 5-7/10 throughout the shift, despite administration of PRN oxy, scheduled tylenol and lidocaine patch. Non- pharmacologic interventions offered, patient kindly declined. Problem: SKIN/TISSUE INTEGRITY Goal: Skin/Tissue integrity maintained or improved Outcome: Progressing: PRN Benadryl cream applied to right buttock. Left chest dressings are dry and intact. Leora Cho R.N. - 12/04/2020 6:26 AM CDT Problem: PAIN - ADULT Goal: PT VERBALIZES/DEMONSTRATES ADEQUATE COMFORT LEVEL OR BASELINE Outcome: Progressing Note: Patient received oxycodone q 3 hours PRN for pain control. Patient reported pain in the abdomen throughout shift. Shift Goals: Clinical Goals for the Shift: Patient will report adequete pain control throughout shift. Not Met Identify possible barriers to meeting goals/advancing plan of care: Increase Pain End of Shift Summary:See Patient reported that they were able to get some sleep throughout the night. Patient did require 1L NC during shift to keep oxygen levels above 90%. Patient did report an increase in itching tight sided hip. Service aware and PRN Benadryl cream was prescribed. Luis Bautista R.N. - 12/03/2020 5:08 AM CDT Shift Goals: Clinical Goals for the Shift: Pt will remain vitally stable on current O2 settings Identify possible barriers to meeting goals/advancing plan of care: dx End of Shift Summary: Goal met- see notes below. Problem: PAIN - ADULT Goal: PT VERBALIZES/DEMONSTRATES ADEQUATE COMFORT LEVEL OR BASELINE Outcome: Progressing Note: Patient was able to sleep throughout the night. Patient remained vitally stable and MEWs negative on 3 L Nasal Cannula. O2 sats remained above 90. At 0400, patient complained of 7/10 pain. Oxy and tylenol were given. Patient reported pain getting better. Analia Das R.N. - 12/01/2020 6:34 PM CDT Shift Goals: Clinical Goals for the Shift: Pt will remain vitally stable on current O2 settings Identify possible barriers to meeting goals/advancing plan of care: diagnosis End of Shift Summary: Patient transferred to unit in stable condition. Patient reported pain not well controlled on current PRN/scheduled pain regimen. Service aware. Patient continues to have productive cough that is blood tinged. O2 needs at 4L NC with saturations in low 90s. Jalyn Vences M.S.N. R.N. - 11/30/2020 6:02 PM CDT Problem: PAIN - ADULT Goal: PT VERBALIZES/DEMONSTRATES ADEQUATE COMFORT LEVEL OR BASELINE Outcome: Not Progressing Note: Monitor patient 's pain and encourage him to request for pain intervention as needed. Patient continue to require prn oxycodone every 4 hourd and schedule Tylenol to keep pain in a tolerable level. Problem: KNOWLEDGE DEFICIT Goal: Patient/family/caregiver demonstrates understanding of disease process, treatment plan, medications, and discharge instructions Outcome: Progressing Note: Learning assessment done, disease and treatment teaching done and patient demonstrates understanding of treatment plan. Problem: SKIN/TISSUE INTEGRITY Goal: Skin/Tissue integrity maintained or improved Outcome: Progressing Note: Assessed and document skin integrity status. Monitor CT area for break down, and repositioned tubing. Patient able to self reposition and he moves around the room assist. Problem: SAFETY ADULT - RISK FOR FALL AND OR FALL INJURY Goal: Patient remains free from fall/fall injury Outcome: Progressing Note: Patient sues his call light and waits for help. Intension rounding done, assist patient with toileting and transfer. Patient safe from fall and injury this shift. Shift Goals: Clinical Goals for the Shift: Pt will remain vitally stable on current O2 settings Identify possible barriers to meeting goals/advancing plan of care: None End of Shift Summary: Goal met. Patient continue to maintain SpO2 above 92% on 2lnc. He is using hisincentive spirometry, CT put on water seal this morning, he had a total of [address] this shift. Patient has being having intermittent tachypneic, but other VSS. Patient likes to have his prn Oxycodone every 4 hours around the clock to keep his pain from excalating. He went for a mini walk with his this afternoon and he tolerates it well. Jessie Murphy R.N. - 11/30/2020 5:23 AM CDT Problem: PAIN - ADULT Goal: PT VERBALIZES/DEMONSTRATES ADEQUATE COMFORT LEVEL OR BASELINE Outcome: Progressing Note: Pt verbalizing relief from scheduled tylenol and PRN oxycodone Problem: INFECTION - ADULT Goal: Absence of infection during hospitalization Outcome: Progressing Note: No fevers overnight Shift Goals: Clinical Goals for the Shift: Pt will remain vitally stable on current O2 settings Identify possible barriers to meeting goals/advancing plan of care: Pt condition End of Shift Summary: Pt reported sleeping adequately overnight. Pain managed with scheduled tylenoland PRN oxycodone. L CT remains on LCS, -20. Remains on 2L NC. Continue on PO abx. Hernan Taylor RKristin - 11/29/2020 7:42 PM CDT Shift Goals: Clinical Goals for the Shift: Patient will get settled onto [facility] safely Identify possible barriers to meeting goals/advancing plan of care: no barriers noted End of Shift Summary: Goal met. Patient settled safely onto Dom[facility] this shift. Remains on 2L NC intermittently. Problem: SAFETY ADULT Goal: Maintain a safe environment Outcome: Progressing Note: Patient remains call light appropriate this shift. Problem: PAIN - ADULT Goal: PT VERBALIZES/DEMONSTRATES ADEQUATE COMFORT LEVEL OR BASELINE Outcome: Not Progressing Note: Patient reports 5-7/10 pain this shift. PRN oxycodone given with some relief. Aniyah Camacho R.N. - 11/29/2020 1:04 PM CDT Patient Transfer Note Patient transferred to: [facility] Accompanied by: UNDERGROUND REPAIRER Report called? YES Nurse receiving report: TERENCE Estrella Belongings sent with patient? YES Current vital signs: 11/29/20 1245 Vital Signs Temperature 36.9 ??C Temp Source Oral Heart Rate Source ECG Pulse Rate 78 Pulse Rate Source Pulse oximetry Cardiac Rhythm SR Blood Pressure 140/88 MAP (mmHg) 103 Bryant Agitation Sedation Scale (RASS) 0 SpO2 95 % Oxygen Therapy Pulse Oximetry Type Continuous Patient Activity At rest $Delivery Method Nasal cannula Flow Rate (L/min) 2 L/min Pain Assessment Pain Assessment 0-10 Numeric Pain Intensity Scale Pain Score 6 Pain Type Acute pain;Surgical pain Pain Location Chest Pain Orientation Left Pain Radiating Towards center Pain Descriptors Sharp Pain Onset Ongoing Clinical Progression Gradually improving Patient's Stated Pain Goal 6 Pain Interventions Medication (See MAR) Critical Care Service aware of current vital signs? YES Nadia Sotelo, R.R.TLisa, C.R.T., L.R.T. - 11/29/2020 5:27 AM CDT Mason Fairbanks is a 55 y.o. male was admitted on 11/28/2020 Principal Problem Edema Pulmonary (HCC) Plan of Care: Patient remains on room air. Maintain arterial line for hemodynamic monitoring. Oxygen Therapy $Delivery Method: Room air Recent ABG: Results from last 7 days Lab Units 11/28/20 1112 PH ART pH 7.36 PCO2 ART mm Hg 50* PO2 ART mm Hg 113* BASE EXC ART mmol/L 3 Arterial Line 11/28/20 Right Radial (Active) Placement Date/Time: 11/28/20 (c) 0571 Hand Hygiene Performed Prior to Insertion: Yes Site Prep: Chlorhexidine (Preferred) Sterile Barriers Used : Cap;Gloves;Gown;Large drape;Mask (Clinician);Mask (Allothers in room) Size: 20 G Orientation: Rig... Social History Tobacco Use Smoking Status Not on file Electronically signed by: Nadia Sotelo R.R.T., BelenTLisa, DignaRLisaTLisa 11/29/20 5:27 AM CDT Vanessa Logan R.RMichele - 11/28/2020 3:57 PM CDT Patient is a 55 y.o. male admitted on 11/28/2020 Alert Information: Plan of Care: Patient was extubated to [place] and has tolerated well, strong cough. Will continue to monitor and assess while in the ICU. Principal Problem Edema Pulmonary (HCC) Oxygen Therapy $Delivery Method: Nasal cannula Arterial Line 11/28/20 Right Radial (Active) Placement Date/Time: 11/28/20 (c) 0545 Hand Hygiene Performed Prior to Insertion: Yes Site Prep: Chlorhexidine (Preferred) Sterile Barriers Used : Cap;Gloves;Gown;Large drape;Mask (Clinician);Mask (Allothers in room) Size: 20 G Orientation: Rig... Social History Tobacco Use Smoking Status Not on file Recent Labs 11/28/20 1112 PO2 ART 113 H PCO2 ART 50 H PH ART 7.36 Deena Gray L.RLisaTLisa - 11/28/2020 6:21 AM CDT Patient is a 55 y.o. male admitted on 11/28/2020 Alert Information: Plan of Care: Assess respiratory status, maintain airway, monitor hemodynamics, wean oxygen as tolerated, suction as needed Patient arrived from the ED after being brought to [facility] via [facility], report is patient had acute onset of SOB, left arm numbness and chest pain, [facility] arrived and placed on PAP and patient failed and was intubated, currently on CMV 20/430/+10/.50, CT done prior to arrival to unit, will continue to follow while in ICU Principal Problem Edema Pulmonary (HCC) Oxygen Therapy $Delivery Method: Ventilator ETT (Active) Placement Date: 11/28/20 Placed by External Staff?: EMS ETT Type: Standard ETT Tube Size: 8 mm Cuffed: Yes Location: Oral Arterial Line 11/28/20 Right Radial (Active) Placement Date/Time: 11/28/20 (c) 5796 Hand Hygiene Performed Prior to Insertion: Yes Site Prep: Chlorhexidine (Preferred) Sterile Barriers Used : Cap;Gloves;Gown;Large drape;Mask (Clinician);Mask (Allothers in room) Size: 20 G Orientation: Rig... Social History Tobacco Use Smoking Status Not on file No results for input(s): PO2 ART, PCO2 ART, PH ART in the last 24 hours. Electronically signed by: Prakash Ojeda 11/28/20 6:24 AM CDT documented in this encounter ED Notes Krystian Cason M.D. - 11/28/2020 4:26 AM CDT I have personally seen and examined this patient. I have fully participated in the care of this patient. I have reviewed all clinical information including history, physical exam, orders, and plan. I agree with the note of the resident. I have reviewed and agree with the resident's note addendum. Procedure(s) documented by the residentwere performed under my direct supervision. Julio Fairbanks is a 55 y.o. male with history of hypertension and recent cardiac stenting per family report, who presents for evaluation of respiratory distress. Patient was brought in by the [facility] crew, who provides history. At the scene, the patient had collapsed, was diaphoretic and ashen, with wet breath sounds bilaterally. They trialed CPAP but quickly escalated to intubation secondary to patient condition. They also placed him on a nitroglycerin drip prior to arrival. No other history isknown. He was found to be in significant respiratory acidosis with elevated lactate prior to arrival. Here in the ED the patient has been sedated and paralyzed prior to arrival, so was not responsive, GCS 3T. Has a patent airway with ET tube in place, positive color change indicating tracheal placement. He has decreased breath sounds on the left. Heart rate is tachycardic but regular. Abdomen is soft but distended. Lower extremities without peripheral edema. On arrival, the patient is tachycardic, hypertensive on nitro drip, saturating 85% while being ventilated. End-tidal CO2 was in the 70s. Despite sitting him up, increasing his FiO2 and increasing his ventilatory rate, it was still difficult to ventilate the patient. He had high peak pressures and was not returning adequate tidal volumes. Chest x-ray showed likely pulmonary edema with ET tube 2 cm above the elier. This was pulled back 1 cm and secured at 24 cm. There also appeared to be a deep sulcus sign on the 1st chest x-ray which was taken in a semi recumbent position. In total, given his presentation we had concern for pneumothorax and so a needle decompression was performed in the left anterior 2nd intercostal space. This did improve his end tidal CO2,tidal volumes and oxygenation. We proceeded with a left pigtail chest tube placement on the left, however on postprocedure chest x-ray the pigtail was in the chest wall and not inside the chest cavity.This was removed, and pigtail placement was attempted higher on the left anterior chest wall, however due to patient's body habitus we were not able to reach the pleural space using the finder needle. At this time, we decided to utilize the existing tract through the 2nd anterior intercostal space for placement of the pigtail. This was connected to the atrium with the Heimlich flutter valve initially inadvertently attached, but was recognized on reassessment as he was becoming hypotensive, and had no lung sliding on ultrasound. After the Heimlich flutter valve was replaced with the [place] tree attachment, lung sliding was now seen, and air leak was appreciated in the atrium. Following this we were able to see lung sliding on the left on ultrasound, his blood gas started to improve (pH 7.12 and PCO2 97 beforehand, pH 7.19, PCO2 78 after) and his ventilation parameters were improving as well. Subsequent lactate had normalized. Regarding the cause of his event, I am concerned about acute coronary syndrome, flash pulmonary edema secondary to hypertensive crisis. Initial ECG shows sinus tachycardia without acute ischemic changes. We consulted the CCU, who performed a bedside transthoracic echo, which showed preserved ejection fraction and no pericardial effusion or other abnormality. His initial troponin however is elevated. Additional findings are hyperglycemia, no known history of diabetes. I do not think that he is in DKA secondary to normal bicarb and beta hydroxybutyrate is normal. He is however also hyperkalemic, andwe have provided insulin injection to help with both of these findings. Due to medical concerns and difficulty in ventilating the patient CCU recommended I discuss the casewith the medical ICU. They recommend treating for possible pneumonia. We have drawn blood cultures, and written for IV antibiotics. His COVID-19 swab is undetected. Initially Lasix was advised by the medical ICU however due to his hypotension we held off on this. Will also obtain CT scan of the chest prior to transferring to the medical ICU for definitive identification of underlying lung disease as well as chest tube position. Final Diagnoses: as of Nov 28 0558 Edema Pulmonary (HCC) Other Pneumothorax Krystian Cason M.D. 11/28/20 0636 Krystian Cason M.D. 11/28/20 0729 Krystian Cason M.D. 11/29/20 1401 Hubert Smith M.D. - 11/28/2020 4:25 AM CDT SUBJECTIVE CHIEF COMPLAINT/REASON FOR VISIT Chest Pain and Bradycardia HISTORY OF PRESENT ILLNESS This is an unidentified male with estimated age 40s to 50s flown via [facility] from scene due to concern for cardiogenic shock. Per report, patient is from [place] and has a history of recent cardiacstenting. He reported new onset difficulty breathing tonight and felt like his lungs were wet. Hisfiance drove him to the nearest gas station and EMS was called. Nolan Yin was dispatched due to concern for ACS and on arrival his saturations were in the 40s. Unknown initial blood pressure. Nolan Yin trialed BiPap with no success and intubated him with ketamine and rocuronium. He was started on nitroglycerin drip and transported to [facility]. Nolan Yin reported SpO2 90% after intubation with high EtCO2 in the 70s On arrival to the ED, no additional history was available and no family initially around. REVIEW OF SYSTEMS Unable to perform ROS: Intubated OBJECTIVE Initial Vitals Temperature Pulse Rate Heart Rate Resp Rate Blood Pressure SpO2 11/28/20 0335 11/28/20 0320 11/28/20 0320 11/28/20 0320 11/28/20 0320 11/28/20 0320 36.6 ??C (!) 113 (!) 115 17 (!) 146/96 (!) 85 % Pain Score -- PHYSICAL EXAMINATION HENT: Head: Normocephalic and atraumatic. Eyes: Conjunctivae are normal. Pupils are equal, round, and reactive to light. Cardiovascular: Regular rhythm. Tachycardia present. Pulmonary/Chest: He has rales. Patient arrived intubated with ETT 25 cm at teeth. Good color change with switch to our ventilator. Decreased breath sounds on left. Pulse Ox low 90s with good pleth. EtCO2 in 70s. Diffuse crackles Abdominal: Soft. exhibits no distension. There is no abdominal tenderness. Musculoskeletal: General: No edema. Neurological: Intubated and sedated Skin: Skin is warm, dry and intact. ASSESSMENT/PLAN IMPRESSION AND PLAN This is an unidentified male presenting as a medical resuscitation with concern for pulmonary edema.CCU fellow was consulted and arrived at bedside. ECG showed no STEMI. CXR showed deep sulcus on leftside with concern for PTX. ETT was pulled back 1 cm based on CXR and needle decompression performed with improvement in SpO2 and initial improvement in EtCO2. Pigtail attempted on left lateral side butwas unsuccessful due to body habitus. Anterior pigtail successfully placed through existing needle site. Initial VBG showed severe hypercapnic respiratory acidosis and ventilator settings adjusted accordingly. Patient re-paralyzed due to vent dyssynchrony and high pressures with improvement in vent settings afterwards. Arterial line placed due to hypotension with difficulty maintaining sedation and nitroglycerin drip due to downtrending BP. Ketamine was used to maintain sedation and blood pressure. Antibiotics administered for CAP and hyperkalemia treatment started due to elevated K+ and hyperglycemia. CCU recommends MICU admission. Addendum: finance arrived after initial resuscitation and reports patient has been complaining of some left sided arm tingling and weakness yesterday that is the same as what he experienced with his last ACS episode. His cardiac stenting was in December 2019. He woke up from sleep tonight with acute onset dyspnea and felt like his lungs were full of fluid. He has been worked up recently for hypertension in the outpatient setting and has remained persistently hypertensive at home with BP monitoring,although jatinder could not recall specific numbers. DIFFERENTIAL DIAGNOSIS Pulmonary edema, ACS, pneumonia, URI, COVID19, sepsis ED Course as of Nov 28 557 Mon Nov 28, 2020 0440 Hepatic Function Panel(!): Bilirubin, Total, S 0.3 Bilirubin, Direct, S <0.2 Aspartate Aminotransferase (AST), S 66(!) Alanine Aminotransferase (ALT), S 62(!) Alkaline Phosphatase, S 145(!) Albumin, S 3.9 Protein, Total, S 6.8 0440 Basic Metabolic Panel(!!): Potassium, P 5.3(!) Sodium, P 136 Chloride, P 101 Bicarbonate, P 25 Anion Gap, P 10 BUN (Blood Urea Nitrogen), P 18 Creatinine, P 1.01 eGFR-Black/ >90 eGFR Non-Black/ 84 Calcium, Total, P 8.5(!) Glucose, P 512(!!) 0440 CBC with Differential, Blood(!): Hemoglobin 13.9 Hematocrit 44.7 Erythrocytes 4.97 MCV 89.9 RBC Distrib Width 14.1 Platelet Count 355(!) White Blood Cell Count 17.7(!) Neutrophils SeeComment 0440 NT-Pro BNP, P(!): 1197 0440 Magnesium: 2.1 0441 Troponin T, Baseline, 5th gen(!): 60 0441 INR: 1.0 0441 New pigtail catheter projecting over the left upper chest. Removal of pigtail in the left lateral chest wall. New airspace opacity in the left mid lung. Otherwise no significant change. Interlobular septal thickening, probably B lines in perihilar opacities suggestive of pulmonary edema. Left deep sulcus with no definitive pneumothorax. Normal cardiac size. ET tube with tip in the lower trachea, 2.5 cm above the elier. Comparison made to 11/28/2020 (0356). DX Chest Portable 1 View 0504 SARS CoV-2, PCR, Rapid, V: Undetected 0505 White Blood Cell Count(!): 17.7 0540 Last BP 100/58 after ketamine given and propofol stopped Final Diagnoses: as of Nov 28 557 Edema Pulmonary (HCC) Other Pneumothorax Hubert Smith M.D. Resident 11/28/20 0824 documented in this encounter Miscellaneous Notes Hospital Course - Christian Che - 11/29/2020 10:56 AM CDT Mr. Fairbanks with history of hypertension and a recent cardiac stents placed in December presented with respiratory arrest. He is from [place] and woke up day of admission with acute onset shortness ofbreath that Mr. Fairbanks described as wet. He also reportedly noted left arm tingling and pain and was concerned he was having a heart attack. His fiance drove him to the nearest gas station where they called EMS. He arrived to the [facility] ED with [facility]. On scene he was diaphoretic and ashen, his breathsounds were wet bilaterally. CPAP versus BPAP was trialed but he was quickly intubated, sedated and paralyzed. He was started on a nitroglycerin drip. ED Course In the ED an initial VBG was acidotic with pH 7.02 and CO2 >100, he was quite hypoxic despite 100% FiO2, blood sugar was 470, EKG showed sinus tachycardia with HR in the 110s. He had a leukocytosis to 17.7, was hyperkalemic to 5.3, creatinine 1.01, initial troponin was 60, BNP was 1197. Initial CXRshowed significant pulmonary edema and left deep sulcus sign but no definitive pneumothorax, needle decompression was performed. A CXR 30 minutes later demonstrated a new lucency along the left cardiacborder - potential small pneumothorax. A chest tube was placed and a repeat CXR 45 minutes later showed the pigtail catheter, a new airspace opacity in the left mid lung. He was sedated with Propofol and Fentanyl and received rocuronium once to maintain adequate ventilation and facilitate procedures. The nitroglycerin gtt has been weaned off but he did receive a second dose of rocuronium. The CCU wasconsulted in the ED given concern for cardiogenic shock, they performed a bedside echo but did not see any clear cardiogenic shock. VBG an hour after he arrived was improving pH 7.12/CO2 97 but worsening hyperkalemia. Lactate was normal. COVID was negative. Given mechanical ventilation and concern forpulmonary primary process he was admitted to the MICU for further cares. MICU Course In the ICU, he was continued on mechanical ventilation. CT scan did reveal pigtail with course through lung parenchyma. Thoracic surgery was consulted and proceeded with surgical chest tube placement at the bedside. They recommended to clamp the pigtail and potentially remove it after 24 hours. He wascontinued on aggressive diuresis and maintained net negative volume. He was briefly on vasopressors and continued on antibiotics for community-acquired pneumonia coverage. His sedation was weaned off and he remained hemodynamically stable. He was successfully extubated and needed oxygen through nasal cannula. Surgical chest tube was maintained to water seal and pigtail clamped as recommended by thoracic surgery. In the morning of 11/29, thoracic surgery removed the pigtail at bedside without any complication. He recommended continuation of surgical chest tube and reassessing the need in 24 hours. He became hypertensive therefore his home antihypertensives were resumed. Echocardiogram was performed on 11/29 assess cardiac function and etiology of pulmonary edema which was his presenting diagnosis. He remained hemodynamically stable without any further complication and therefore was transferred out of ICU on 11/29/2020 to general care. Pulmonology Service Patient transferred to pulmonology service on 11/29/20. He was continued on treatment for community acquired pneumonia where he finished a total of a 5 day course of antibiotics. His pulmonary edema was further evaluated with echocardiogram which showed an EF of 44% and regional wall motion abnormalities in the anterior septal regions. Prior ECHO results from the patient's customer service agent showed an EF of 50-55% with similar distribution of anterior septal wall abnormalities on 07/19/20. Chest tube was removed by thoracic surgery on 12/01/20. CXR showed evidence of a small-moderate left pneumothorax on 12/01/20 and was managed conservatively. Cardiology was consulted 11/30/20 and patient underwent coronary angiography on 12/02/20. Coronary angiography showed no new significant occlusions and no surgical intervention was performed. Patient continued to remain stable while weaning nasal cannula oxygen therapy. Home oxygen assessment was performed 12/05/20 and demonstrated patient required 1L NC while sleeping. Cardiology recommended a modified medical regimen to manage s/p December 2019 coronary stent and active essential hypertension. Diabetes reproductive healthcare assistant educated patient on diabetes management and devised a discharge medical therapy regimen. Patient will need to follow up as an outpatient with their new PCP in [place]. documented in this encounter Plan of Treatment Not on filedocumented as of this encounter Procedures Procedure Name Priority Date/Time Associated Diagnosis Comme nts GLUCOSE POCT, B Routine 12/05/2020 Results for 12:09 PM CDT this procedure are in the results section. GLUCOSE POCT, B Routine 12/05/2020 Results for 8:26 AM CDT this procedure are in the results section. RT TO ARRANGE FOR Routine 12/05/2020 HOME DME 8:04 AM CDT CBC WITH Routine 12/05/2020 Results for DIFFERENTIAL, B 6:58 AM CDT this procedu re are in the results section. BASIC METABOLIC Routine 12/05/2020 Results for PANEL, S/P 6:58 AM CDT this procedure are in the results section. GLUCOSE POCT, B Routine 12/04/2020 Results for 10:04 PM CDT this procedure are in the results section. NOCTURNAL OXYGEN Routine 12/04/2020 STUDY - RT 9:31 PM CDT GLUCOSE POCT, B Routine 12/04/2020 Results for 5:54 PM CDT this procedure are in the results section. GLUCOSE POCT, B Routine 12/04/2020 Results for 12:37 PM CDT this procedure are in the results section. ADULT OXYGEN THERAPY Routine 12/04/2020 8:00 AM CDT GLUCOSE POCT, B Routine 12/04/2020 Results for 7:44 AM CDT this procedure are in the results section. GLUCOSE POCT, B Routine 12/03/2020 Results for 9:24 PM CDT this procedure are in the results section. ADULT OXYGEN THERAPY Routine 12/03/2020 8:01 PM CDT GLUCOSE POCT, B Routine 12/03/2020 Results for 5:20 PM CDT this procedure are in the results section. GLUCOSE POCT, B Routine 12/03/2020 Results for 11:04 AM CDT this procedure are in the results section. DX CHEST AP OR PA AND RAD - Routine 12/03/2020 Resul ts for LATERAL 2 VIEWS (most inpatients 8:18 AM CDT this pro cedure and all are in the outpatients) results section. GLUCOSE POCT, B Routine 12/03/2020 Results for 8:04 AM CDT this procedure are in the results section. ADULT OXYGEN THERAPY Routine 12/03/2020 8:01 AM CDT CBC WITH Routine 12/03/2020 Results for DIFFERENTIAL, B 6:34 AM CDT this procedu re are in the results section. BASIC METABOLIC Routine 12/03/2020 Results for PANEL, S/P 6:34 AM CDT this procedure are in the results section. SARS-COV-2 TOTAL Routine 12/03/2020 Results for ANTIBODY, SERUM 6:33 AM CDT this procedu re are in the results section. GLUCOSE POCT, B Routine 12/02/2020 Results for 9:06 PM CDT this procedure are in the results section. ADULT OXYGEN THERAPY Routine 12/02/2020 8:01 PM CDT CARDIAC Routine 12/02/2020 Atherosclerotic Results for CATHETERIZATION 5:47 PM CDT Heart Disease [place] this procedure Coronary Artery With are in the Other Forms Angina results Pectoris (Stable section. Angina/Angina Of Exertion) (HCC) GLUCOSE POCT, B Routine 12/02/2020 Results for 3:25 PM CDT this procedure are in the results section. GLUCOSE POCT, B Routine 12/02/2020 Results for 12:12 PM CDT this procedure are in the results section. ADULT OXYGEN THERAPY Routine 12/02/2020 10:53 AM CDT ADULT OXYGEN THERAPY Routine 12/02/2020 10:53 AM CDT ADULT OXYGEN THERAPY Routine 12/02/2020 10:53 AM CDT GLUCOSE POCT, B Routine 12/02/2020 Results for 8:14 AM CDT this procedure are in the results section. DX CHEST AP OR PA AND RAD - Routine 12/02/2020 Resul ts for LATERAL 2 VIEWS (most inpatients 8:00 AM CDT this pro cedure and all are in the outpatients) results section. CBC WITH Routine 12/02/2020 Results for DIFFERENTIAL, B 7:38 AM CDT this procedu re are in the results section. BASIC METABOLIC Routine 12/02/2020 Results for PANEL, S/P 7:38 AM CDT this procedure are in the results section. GLUCOSE POCT, B Routine 12/01/2020 Results for 9:22 PM CDT this procedure are in the results section. GLUCOSE POCT, B Routine 12/01/2020 Results for 5:31 PM CDT this procedure are in the results section. DX CHEST AP OR PA AND RAD - Routine 12/01/2020 Resul ts for LATERAL 2 VIEWS (most inpatients 1:28 PM CDT this pro cedure and all are in the outpatients) results section. GLUCOSE POCT, B Routine 12/01/2020 Results for 11:35 AM CDT this procedure are in the results section. GLUCOSE POCT, B Routine 12/01/2020 Results for 9:33 AM CDT this procedure are in the results section. DX CHEST AP OR PA AND RAD - Routine 12/01/2020 Resul ts for LATERAL 2 VIEWS (most inpatients 8:31 AM CDT this pro cedure and all are in the outpatients) results section. ACTIVATED PARTIAL Routine 12/01/2020 Results fo r THROMBOPLASTIN TIME 7:04 AM CDT this pro cedure (APTT), P are in the results section. PROTHROMBIN TIME Routine 12/01/2020 Results for (PT), P 7:04 AM CDT this procedure are in the results section. CBC WITHOUT Routine 12/01/2020 Results for DIFFERENTIAL, B 7:04 AM CDT this procedu re are in the results section. BASIC METABOLIC Routine 12/01/2020 Results for PANEL, S/P 7:04 AM CDT this procedure are in the results section. GLUCOSE POCT, B Routine 11/30/2020 Results for 9:55 PM CDT this procedure are in the results section. DIPSTICK, U Routine 11/30/2020 Results for 5:43 PM CDT this procedure are in the results section. MICROSCOPIC AUTOMATED Routine 11/30/2020 Result s for 5:43 PM CDT this procedure are in the results section. PH, U Routine 11/30/2020 Results for 5:43 PM CDT this procedure are in the results section. OSMOLALITY, U Routine 11/30/2020 Results for 5:43 PM CDT this procedure are in the results section. URINALYSIS WITH Routine 11/30/2020 Results for MICROSCOPIC 5:43 PM CDT this procedure are in the results section. GLUCOSE POCT, B Routine 11/30/2020 Results for 5:20 PM CDT this procedure are in the results section. GLUCOSE POCT, B Routine 11/30/2020 Results for 11:41 AM CDT this procedure are in the results section. GLUCOSE POCT, B Routine 11/30/2020 Results for 7:35 AM CDT this procedure are in the results section. CBC WITH Routine 11/30/2020 Results for DIFFERENTIAL, B 12:06 AM CDT this procedu re are in the results section. PHOSPHORUS Routine 11/30/2020 Results for (INORGANIC), S 12:06 AM CDT this procedur e are in the results section. MAGNESIUM, S Routine 11/30/2020 Results for 12:06 AM CDT this procedure are in the results section. CALCIUM, IONIZED, S/B Routine 11/30/2020 Result s for 12:06 AM CDT this procedure are in the results section. BASIC METABOLIC Routine 11/30/2020 Results for PANEL, S/P 12:06 AM CDT this procedure are in the results section. GLUCOSE POCT, B Routine 11/29/2020 Results for 10:17 PM CDT this procedure are in the results section. GLUCOSE POCT, B Routine 11/29/2020 Results for 6:09 PM CDT this procedure are in the results section. GLUCOSE POCT, B Routine 11/29/2020 Results for 12:20 PM CDT this procedure are in the results section. (TTE) 2D ECHO DOPPLER Routine 11/29/2020 Result s for COLOR AND CONTRAST 10:21 AM CDT this proc edure are in the results section. GLUCOSE POCT, B Routine 11/29/2020 Results for 8:07 AM CDT this procedure are in the results section. CBC WITHOUT Routine 11/29/2020 Results for DIFFERENTIAL, B 3:46 AM CDT this procedu re are in the results section. PHOSPHORUS Routine 11/29/2020 Results for (INORGANIC), S 3:46 AM CDT this procedur e are in the results section. BASIC METABOLIC Routine 11/29/2020 Results for PANEL, S/P 3:46 AM CDT this procedure are in the results section. DRUG SCREEN, Routine 11/28/2020 Results for PRESCRIPTION/OTC, U 10:35 PM CDT this pro cedure are in the results section. CONFIRMED DRUG ABUSE Routine 11/28/2020 Results for PANEL 9, U 10:35 PM CDT this procedure are in the results section. BENZODIAZEPINES Routine 11/28/2020 Results for CONFIRMATION, U 10:35 PM CDT this procedu re are in the results section. GLUCOSE POCT, B Routine 11/28/2020 Results for 9:40 PM CDT this procedure are in the results section. DIPSTICK, U Routine 11/28/2020 Results for 9:26 PM CDT this procedure are in the results section. MICROSCOPIC AUTOMATED Routine 11/28/2020 Result s for 9:26 PM CDT this procedure are in the results section. PH, U Routine 11/28/2020 Results for 9:26 PM CDT this procedure are in the results section. OSMOLALITY, U Routine 11/28/2020 Results for 9:26 PM CDT this procedure are in the results section. URINALYSIS WITH Routine 11/28/2020 Results for MICROSCOPIC 9:26 PM CDT this procedure are in the results section. TROPONIN T, 5TH GEN, Routine 11/28/2020 Results for P 7:52 PM CDT this procedure are in the results section. GLUCOSE POCT, B Routine 11/28/2020 Results for 5:07 PM CDT this procedure are in the results section. GLUCOSE POCT, B Routine 11/28/2020 Results for 1:28 PM CDT this procedure are in the results section. GLUCOSE POCT, B Routine 11/28/2020 Results for 12:46 PM CDT this procedure are in the results section. DX CHEST PORTABLE 1 RAD - Routine 11/28/2020 Results for VIEW (most inpatients 12:22 PM CDT this proced ure and all are in the outpatients) results section. GLUCOSE POCT, B Routine 11/28/2020 Results for 11:30 AM CDT this procedure are in the results section. PATIENT STATUS STAT 11/28/2020 Results for 11:12 AM CDT this procedure are in the results section. ABG W/O COOX STAT 11/28/2020 Results for 11:12 AM CDT this procedure are in the results section. BASIC METABOLIC Routine 11/28/2020 Results for PANEL, S/P 11:12 AM CDT this procedure are in the results section. MO INS TUBE Routine 11/28/2020 Other Pneumothorax Results f or THORACOSTOMY 10:51 AM CDT this procedure are in the results section. GLUCOSE POCT, B Routine 11/28/2020 Results for 10:42 AM CDT this procedure are in the results section. DX CHEST PORTABLE 1 RAD - Emergent 11/28/2020 Result s for VIEW (Fastest; for 10:36 AM CDT this procedure the most are in the critically ill results patients) section. GLUCOSE POCT, B Routine 11/28/2020 Results for 9:17 AM CDT this procedure are in the results section. GLUCOSE POCT, B Routine 11/28/2020 Results for 8:30 AM CDT this procedure are in the results section. GLUCOSE POCT, B Routine 11/28/2020 Results for 7:26 AM CDT this procedure are in the results section. DX CHEST PORTABLE 1 RAD - Emergent 11/28/2020 Result s for VIEW (Fastest; for 7:07 AM CDT this procedure the most are in the critically ill results patients) section. CRITICAL CARE Routine 11/28/2020 Results for 6:37 AM CDT this procedure are in the results section. HEMOGLOBIN A1C, B Routine 11/28/2020 Results fo r 6:30 AM CDT this procedure are in the results section. PATIENT STATUS STAT 11/28/2020 Results for 6:23 AM CDT this procedure are in the results section. ABG W/O COOX STAT 11/28/2020 Results for 6:23 AM CDT this procedure are in the results section. CALCIUM, IONIZED, S/B STAT 11/28/2020 Result s for 6:23 AM CDT this procedure are in the results section. HEPATIC FUNCTION STAT 11/28/2020 Results for PANEL, S 6:22 AM CDT this procedure are in the results section. CBC WITH Routine 11/28/2020 Results for DIFFERENTIAL, B 6:22 AM CDT this procedu re are in the results section. CBC WITH STAT 11/28/2020 Results for DIFFERENTIAL, B 6:22 AM CDT this procedu re are in the results section. PHOSPHORUS STAT 11/28/2020 Results for (INORGANIC), S 6:22 AM CDT this procedur e are in the results section. MAGNESIUM, S STAT 11/28/2020 Results for 6:22 AM CDT this procedure are in the results section. LACTATE, B/P STAT 11/28/2020 Results for 6:22 AM CDT this procedure are in the results section. BASIC METABOLIC STAT 11/28/2020 Results for PANEL, S/P 6:22 AM CDT this procedure are in the results section. GLUCOSE POCT, B Routine 11/28/2020 Results for 6:21 AM CDT this procedure are in the results section. BETA-HYDROXYBUTYRATE, Routine 11/28/2020 Result s for S 6:17 AM CDT this procedure are in the results section. MECHANICAL VENTILATOR Routine 11/28/2020 6:05 AM CDT MECHANICAL VENTILATOR Routine 11/28/2020 6:05 AM CDT MECHANICAL VENTILATOR Routine 11/28/2020 6:[address] CHEST WITHOUT IV RAD - Semiurgent 11/28/2020 Resu lts for CONTRAST (Fast; most ED 5:53 AM CDT this procedur e patients; some are in the inpatients) results section. PLACE ARTERIAL Routine 11/28/2020 Results for CATHETER 5:45 AM CDT this procedure are in the results section. VBG & LYTES CG8+, Routine 11/28/2020 Results fo r POCT, B 5:36 AM CDT this procedure are in the results section. TROPONIN T, 2H/6H, Timed 11/28/2020 Results f or 5TH GEN, P 5:36 AM CDT this procedure are in the results section. BLOOD GAS, POCT, B STAT 11/28/2020 Results f or 5:36 AM CDT this procedure are in the results section. GLUCOSE POCT, B Routine 11/28/2020 Results for 5:33 AM CDT this procedure are in the results section. GLUCOSE POCT, B STAT 11/28/2020 Results for 5:29 AM CDT this procedure are in the results section. GLUCOSE POCT, B Timed 11/28/2020 Results for 5:29 AM CDT this procedure are in the results section. GLUCOSE POCT, B STAT 11/28/2020 Results for 5:29 AM CDT this procedure are in the results section. VBG & LYTES CG8+, Routine 11/28/2020 Results fo r POCT, B 5:10 AM CDT this procedure are in the results section. BACTERIA / ANABELA STAT 11/28/2020 Results f or CULTURE, BLOOD 5:09 AM CDT this procedur e are in the results section. BLOOD GAS, POCT, B Timed 11/28/2020 Results f or 5:08 AM CDT this procedure are in the results section. BETA-HYDROXYBUTYRATE, STAT 11/28/2020 Result s for S 5:02 AM CDT this procedure are in the results section. BACTERIA / ANABELA STAT 11/28/2020 Results f or CULTURE, BLOOD 5:02 AM CDT this procedur e are in the results section. DX CHEST PORTABLE 1 RAD - Emergent 11/28/2020 Result s for VIEW (Fastest; for 4:28 AM CDT this procedure the most are in the critically ill results patients) section. SARS CORONAVIRUS 2, STAT 11/28/2020 Results for PCR RAPID, V 4:28 AM CDT this procedure are in the results section. PLEURAL DRAINS Routine 11/28/2020 Results for 4:25 AM CDT this procedure are in the results section. LACTATE, POCT, B Routine 11/28/2020 Results for 4:14 AM CDT this procedure are in the results section. VBG & LYTES CG8+, Routine 11/28/2020 Results fo r POCT, B 4:13 AM CDT this procedure are in the results section. DX CHEST PORTABLE 1 RAD - Semiurgent 11/28/2020 Resu lts for VIEW (Fast; most ED 4:07 AM CDT this procedur e patients; some are in the inpatients) results section. AIRWAY CARE Routine 11/28/2020 3:41 AM CDT AIRWAY CARE Routine 11/28/2020 3:41 AM CDT MECHANICAL VENTILATOR Routine 11/28/2020 3:41 AM CDT MECHANICAL VENTILATOR Routine 11/28/2020 3:41 AM CDT DX CHEST PORTABLE 1 RAD - Emergent 11/28/2020 Result s for VIEW (Fastest; for 3:39 AM CDT this procedure the most are in the critically ill results patients) section. TROPONIN T, BASELINE, STAT 11/28/2020 Result s for 5TH GEN, P 3:31 AM CDT this procedure are in the results section. HEPATIC FUNCTION STAT 11/28/2020 Results for PANEL, S 3:31 AM CDT this procedure are in the results section. BLOOD GAS, POCT, B STAT 11/28/2020 Results f or 3:31 AM CDT this procedure are in the results section. LACTATE, POCT, B STAT 11/28/2020 Results for 3:31 AM CDT this procedure are in the results section. NT-PRO B-TYPE STAT 11/28/2020 Results for NATRIURETIC PEPTIDE 3:31 AM CDT this pro cedure (BNP), S are in the results section. PROTHROMBIN TIME STAT 11/28/2020 Results for (PT), P 3:31 AM CDT this procedure are in the results section. CBC WITH STAT 11/28/2020 Results for DIFFERENTIAL, B 3:31 AM CDT this procedu re are in the results section. MAGNESIUM, S STAT 11/28/2020 Results for 3:31 AM CDT this procedure are in the results section. BASIC METABOLIC STAT 11/28/2020 Results for PANEL, S/P 3:31 AM CDT this procedure are in the results section. LACTATE, POCT, B Routine 11/28/2020 Results for 3:29 AM CDT this procedure are in the results section. VBG & LYTES CG8+, Routine 11/28/2020 Results fo r POCT, B 3:28 AM CDT this procedure are in the results section. ECG STAT 11/28/2020 Results for 3:24 AM CDT this procedure are in the results section. ECG STAT 11/28/2020 Results for 3:24 AM CDT this procedure are in the results section. LACTATE, POCT, B Routine 11/28/2020 Results for 3:04 AM CDT this procedure are in the results section. ABG AND LYTES CG8+, Routine 11/28/2020 Results for POCT, B 3:02 AM CDT this procedure are in the results section. documented in this encounter Results (ABNORMAL) Glucose, POCT (12/05/2020 12:09 PM CDT) Analysis Performed At Patho logist Time Signature Glucose, POCT, 190 (H) 70 - 140 12/05/2020 PCLX B mg/dL 12:14 PM CDT Site Capillary 12/05/2020 PCLX 12:14 PM CDT Last Intake 3-4 hours 12/05/2020 PCLX 12:14 PM CDT Specimen Anatomical Collection Method Collection Time Receive d Time (Source) Location / / Volume Laterality Blood 12/05/2020 12:09 12/05/2020 PM CDT 12:15 PM CDT Unknown Provider LAB POCT ORDERABLES-MANUAL Performing Organization Address City/[facility]/ZIP [facility] Phon e Number POC [facility] [address] [place] [address] [place] [address] [place] POC [address] [facility] (ABNORMAL) Glucose, POCT (12/05/2020 8:26 AM CDT) [facility] Glucose, POCT, 157 (H) 70 - 140 12/05/2020 PCLX B mg/dL 8:58 AM CDT Site Capillary 12/05/2020 PCLX 8:58 AM CDT Last Intake 1-2 hours 12/05/2020 PCLX 8:58 AM CDT Specimen Anatomical Collection Method Collection Time Receive d Time (Source) Location / / Volume Laterality Blood 12/05/2020 8:26 AM 8:58 CDT AM CDT Unknown Provider LAB POCT ORDERABLES-MANUAL Performing Organization Address City/[facility] Phon e Number POC [facility] [address] [place] [address] [place] [address] [place] POC [address] [facility] (ABNORMAL) CBC with Differential, Blood (12/05/2020 6:58 AM CDT) Patholo gist Method Time Signature Hemoglobin 12.1 (L) 13.2 - 12/05/2020 DTL 16.6 g/dL 7:54 AM CDT Hematocrit 37.9 (L) 38.3 - 12/05/2020 DTL 48.6 % 7:54 AM CDT Erythrocytes 4.38 4.35 - 12/05/2020 DTL 5.65 7:54 AM CDT x10(12)/L MCV 86.5 78.2 - 12/05/2020 DTL 97.9 fL 7:54 AM CDT RBC Distrib Width 14.4 11.8 - 12/05/2020 DTL 14.5 % 7:54 AM CDT Platelet Count 293 135 - 317 12/05/2020 DTL x10(9)/L 7:54 AM CDT Leukocytes 11.6 (H) 3.4 - 9.6 12/05/2020 DTL x10(9)/L 7:54 AM CDT Neutrophils 7.31 (H) 1.56 - 12/05/2020 DTL 6.45 7:54 AM CDT x10(9)/L Lymphocytes 2.60 0.95 - 12/05/2020 DTL 3.07 7:54 AM CDT x10(9)/L Monocytes 1.00 (H) 0.26 - 12/05/2020 DTL 0.81 7:54 AM CDT x10(9)/L Eosinophils 0.56 (H) 0.03 - 12/05/2020 DTL 0.48 7:54 AM CDT x10(9)/L Basophils 0.11 (H) 0.01 - 12/05/2020 DTL 0.08 7:54 AM CDT x10(9)/L Specimen Anatomical Collection Method Collection Time Receive d Time (Source) Location / / Volume Laterality Blood (Blood, 12/05/2020 6:58 AM 12/06/19 21 7:34 Venous) CDT AM CDT Esthela Ryder M.D. LAB BLOOD ADD-ON Performing Organization Address City/State/ZIP Code Phon e Number [facility] - [address] [place] [phone] [facility] [place] [place] [address] Laboratories-[facility] [address] [facility] Basic Metabolic Panel (12/05/2020 6:58 AM CDT) P athologist Signature Potassium, S 4.5 3.6 - 5.2 12/05/2020 DTL mmol/L 8:18 AM CDT Sodium, S 140 135 - 145 12/05/2020 DTL mmol/L 8:18 AM CDT Chloride, S 103 98 - 107 12/05/2020 DTL mmol/L 8:18 AM CDT Bicarbonate, S 28 22 - 29 12/05/2020 DTL mmol/L 8:18 AM CDT Anion Gap 9 7 - 15 12/05/2020 DTL 8:18 AM CDT BUN (Blood Urea 17 8 - 24 12/05/2020 DTL Nitrogen), S mg/dL 8:18 AM CDT Creatinine 0.88 0.74 - 12/05/2020 DTL 1.35 mg/dL 8:18 AM CDT eGFR-Non >90 >=60 12/05/2020 DTL Black/ mL/min/BSA 8:18 AM CDT [place] Comment: ----ADDITIONAL INFORMATION---- Estimated GFR calculated using the 2009 CKD_EPI creatinine equation. eGFR-Black/ >90 >=60 mL/min/BSA 2020 8:18 AM CDT DTL Comment: ----ADDITIONAL INFORMATION---- Estimated GFR calculated using the 2009 CKD_EPI creatinine equation. Calcium, Total, S 9.1 8.6 - 10.0 mg/dL 12/05/2020 8:18 AM CDT DTL Glucose, S 113 70 - 140 mg/dL 12/05/2020 8:18 AM CDT D TL Specimen Anatomical Collection Method Collection Time Receive d Time (Source) Location / / Volume Laterality Blood (Blood, 12/05/2020 6:58 AM 12/06/19 7:56 Venous) CDT AM CDT Esthela Ryder M.D. LAB BLOOD ADD-ON Performing Organization Address City/State/[facility] Phon e Number [facility] - [address] [place], [place] [phone] [facility] [place] [address] Laboratories-[facility] [address] [facility] (ABNORMAL) Glucose, POCT (12/04/2020 10:04 PM CDT) Analysis Performed At Patho logist Time Signature Glucose, POCT, 180 (H) 70 - 140 12/04/2020 PCLX B mg/dL 10:08 PM CDT Last Intake 3-4 hours 12/04/2020 PCLX 10:08 PM CDT Specimen Anatomical Collection Method Collection Time Receive d Time (Source) Location / / Volume Laterality Blood 12/04/2020 10:04 12/04/2020 PM CDT 10:08 PM CDT Unknown Provider LAB POCT ORDERABLES-MANUAL Performing Organization Address City/State/ZIP Code Phon e Number POC [facility] [address] [place] [address] [place] [address] [place] POC [address] [facility] Glucose, POCT (12/04/2020 5:54 PM CDT) Analysis Performed At Patho logist Time Signature Glucose, POCT, 135 70 - 140 12/04/2020 PCLX B mg/dL 5:59 PM CDT Site Capillary 12/04/2020 PCLX 5:59 PM CDT Last Intake 3-4 hours 12/04/2020 PCLX 5:59 PM CDT Specimen Anatomical Collection Method Collection Time Receive d Time (Source) Location / / Volume Laterality Blood 12/04/2020 5:54 PM 5:59 CDT PM CDT Unknown Provider LAB POCT ORDERABLES-MANUAL Performing Organization Address City/[facility] Code Phon e Number POC [facility] [address] [place] [address] [place] [address] [place] POC [address] [facility] (ABNORMAL) Glucose, POCT (12/04/2020 12:37 PM CDT) Analysis Performed At Patho logist Time Signature Glucose, POCT, 204 (H) 70 - 140 12/04/2020 PCLX B mg/dL 12:47 PM CDT Last Intake 3-4 hours 12/04/2020 PCLX 12:47 PM CDT Specimen Anatomical Collection Method Collection Time Receive d Time (Source) Location / / Volume Laterality Blood 12/04/2020 12:37 12/04/2020 PM CDT 12:47 PM CDT Unknown Provider LAB POCT ORDERABLES-MANUAL Performing Organization Address City/[facility] Phon e Number POC [facility] [address] [place] [address] [place] [address] [place] POC [address] [facility] Glucose, POCT (12/04/2020 7:44 AM CDT) Analysis Performed At Patho logist Time Signature Glucose, POCT, 116 70 - 140 12/04/2020 PCLX B mg/dL 7:53 AM CDT Site Capillary 12/04/2020 PCLX 7:53 AM CDT Last Intake > 4 hours 12/04/2020 PCLX 7:53 AM CDT Specimen Anatomical Collection Method Collection Time Receive d Time (Source) Location / / Volume Laterality Blood 12/04/2020 7:44 AM 7:53 CDT AM CDT Unknown Provider LAB POCT ORDERABLES-MANUAL Performing Organization Address City/[facility]/ZIP Code Phon e Number POC [facility] [address] [place] [address] [place] [address] [place] POC [address] [facility] (ABNORMAL) Glucose, POCT (12/03/2020 9:24 PM CDT) Analysis Performed At Patho logist Time Signature Glucose, POCT, 187 (H) 70 - 140 12/03/2020 PCLX B mg/dL 9:32 PM CDT Site Capillary 12/03/2020 PCLX 9:32 PM CDT Last Intake 2-3 hours 12/03/2020 PCLX 9:32 PM CDT Specimen Anatomical Collection Method Collection Time Receive d Time (Source) Location / / Volume Laterality Blood 12/03/2020 9:24 PM 9:33 CDT PM CDT Unknown Provider LAB POCT ORDERABLES-MANUAL Performing Organization Address [facility] Hospital Phon e Number POC [facility] [address] [place] [address] [place] [address] [place] POC 200 [facility] (ABNORMAL) Glucose, POCT (12/03/2020 5:20 PM CDT) Analysis Performed At Patho logist Time Signature Glucose, POCT, 156 (H) 70 - 140 12/03/2020 PCLX B mg/dL 5:29 PM CDT Site Capillary 12/03/2020 [facility] 5:29 PM CDT Last Intake 3-4 hours 12/03/2020 [facility] 5:29 PM CDT Specimen Anatomical Collection Method Collection Time Receive d Time (Source) Location / / Volume Laterality Blood 12/03/2020 5:20 PM 5:29 CDT PM CDT Unknown Provider LAB POCT ORDERABLES-MANUAL Performing Organization Address City/State/ZIP Code Phon e Number POC [facility] [address] [place] [address] [place] [address] [place] POC 200 [facility] (ABNORMAL) Glucose, POCT (12/03/2020 11:04 AM CDT) Analysis Performed At Patho logist Time Signature Glucose, POCT, 242 (H) 70 - 140 12/03/2020 PCLX B mg/dL 11:12 AM CDT Site Capillary 12/03/2020 [facility] 11:12 AM CDT Last Intake 2-3 hours 12/03/2020 [facility] 11:12 AM CDT Specimen Anatomical Collection Method Collection Time Receive d Time (Source) Location / / Volume Laterality Blood 12/03/2020 11:04 12/03/2020 AM CDT 11:12 AM CDT Unknown Provider LAB POCT ORDERABLES-MANUAL Performing Organization Address City/State/ZIP Code Phon e Number POC [facility] [address] [place] [address] [place] [address] [place] POC 200 [facility] DX Chest AP or PA and Lateral 2 Views (12/03/2020 8:18 AM CDT) Anatomical Region Laterality Modality Chest, Thoracic RST LOS, Thoracic ARZ LOS, Thoracic N/A Digital Radiography FLA LOS Specimen (Source) Anatomical Collection Method Collection Time Re ceived Time Location / / Volume Laterality 12/03/2020 8:31 AM CDT Impressions 12/03/2020 8:34 AM CDT Since yesterday, decreased size of small left pneumothorax. Increased left basilar atelectasis. No a dditional significant change. Stable small left pleural effusion. Soft tissue gas left lower lateral chest wall. Aortic calcification. Narrative 12/03/2020 8:34 AM CDT EXAM: ??DX CHEST AP OR PA AND LATERAL 2 VIEWS Procedure Note George Leonardo M.D., Ph.D. - 1 EXAM: DX CHEST AP OR PA AND LATERAL 2 EWS IMPRESSION: Since yesterday, decreased size of small left pneumothorax. Increased left basilar atelectasis. No a dditional significant change. Stable small left pleural effusion. Soft tissue gas left lower lateral chest wall. Aortic calcification. Phuong MÉNDEZ DIAGNOSTIC IMAGING PROCE CAROL ANN Glucose, POCT (12/03/2020 8:04 AM CDT) Analysis Performed At Patho logist Time Signature Glucose, POCT, 126 70 - 140 12/03/2020 [facility] B mg/dL 8:12 AM CDT Last Intake 3-4 hours 12/03/2020 [facility] 8:12 AM CDT Specimen Anatomical Collection Method Collection Time Receive d Time (Source) Location / / Volume Laterality Blood 12/03/2020 8:04 AM 8:12 CDT AM CDT Unknown Provider LAB POCT ORDERABLES-MANUAL Performing Organization Address City/State/ZIP Code Phon e Number POC [facility] [address] [place] [address] PCL[facility] [place] [address] [place] POC 200 [facility] (ABNORMAL) CBC with Differential, Blood (12/03/2020 6:34 AM CDT) [facility] gist Method Time Signature Hemoglobin 12.4 (L) 13.2 - 12/03/2020 DTL 16.6 g/dL 7:26 AM CDT Hematocrit 37.8 (L) 38.3 - 12/03/2020 DTL 48.6 % 7:26 AM CDT Erythrocytes 4.34 (L) 4.35 - 12/03/2020 DTL 5.65 7:26 AM CDT x10(12)/L MCV 87.1 78.2 - 12/03/2020 DTL 97.9 fL 7:26 AM CDT RBC Distrib Width 14.2 11.8 - 12/03/2020 DTL 14.5 % 7:26 AM CDT Platelet Count 285 135 - 317 12/03/2020 DTL x10(9)/L 7:26 AM CDT Leukocytes 12.3 (H) 3.4 - 9.6 12/03/2020 DTL x10(9)/L 7:26 AM CDT Neutrophils 8.63 (H) 1.56 - 12/03/2020 DTL 6.45 7:26 AM CDT x10(9)/L Lymphocytes 1.89 0.95 - 12/03/2020 DTL 3.07 7:26 AM CDT x10(9)/L Monocytes 1.06 (H) 0.26 - 12/03/2020 DTL 0.81 7:26 AM CDT x10(9)/L Eosinophils 0.59 (H) 0.03 - 12/03/2020 DTL 0.48 7:26 AM CDT x10(9)/L Basophils 0.08 0.01 - 12/03/2020 DTL 0.08 7:26 AM CDT x10(9)/L Specimen Anatomical Collection Method Collection Time Receive d Time (Source) Location / / Volume Laterality Blood (Blood, 12/03/2020 6:34 AM 12/04/19 7:16 Venous) CDT AM CDT Phuong Lemus M.D. LAB BLOOD ADD-ON Performing Organization Address City/State/[facility] Code Phon e Number [facility] - [address] [place] [phone] [facility] [place] [address] [facility] 200 [facility] Basic Metabolic Panel (12/03/2020 6:34 AM CDT) P athologist Signature Potassium, S 4.4 3.6 - 5.2 12/03/2020 DTL mmol/L 8:01 AM CDT Sodium, S 139 135 - 145 12/03/2020 DTL mmol/L 8:01 AM CDT Chloride, S 102 98 - 107 12/03/2020 DTL mmol/L 8:01 AM CDT Bicarbonate, S 29 22 - 29 12/03/2020 DTL mmol/L 8:01 AM CDT Anion Gap 8 7 - 15 12/03/2020 DTL 8:01 AM CDT BUN (Blood Urea 17 8 - 24 12/03/2020 DTL Nitrogen), S mg/dL 8:01 AM CDT Creatinine 0.79 0.74 - 12/03/2020 DTL 1.35 mg/dL 8:01 AM CDT eGFR-Non >90 >=60 12/03/2020 DTL Black/ mL/min/BSA 8:01 AM CDT [place] Comment: ----ADDITIONAL INFORMATION---- Estimated GFR calculated using the 2009 CKD_EPI creatinine equation. eGFR-Black/ >90 >=60 mL/min/BSA 2020 8:01 AM CDT DTL Comment: ----ADDITIONAL INFORMATION---- Estimated GFR calculated using the 2009 CKD_EPI creatinine equation. Calcium, Total, S 9.0 8.6 - 10.0 mg/dL 12/03/2020 8:01 AM CDT DTL Glucose, S 119 70 - 140 mg/dL 12/03/2020 8:01 AM CDT D TL Specimen Anatomical Collection Method Collection Time Receive d Time (Source) Location / / Volume Laterality Blood (Blood, 12/03/2020 6:34 AM 12/04/19 7:14 Venous) CDT AM CDT Phuong Lemus M.D. LAB BLOOD ADD-ON Performing Organization Address City/State/ZIP Code Phon e Number [facility] - [address] [place], [place] [address] [facility] [place] [address] Laboratories-[facility] [address] [facility] SARS-CoV-2 Nucleocapsid Total Ab, S (12/03/2020 6:33 AM CDT) [facility] Method Time Signature SARS-CoV-2 Negative Negative 12/03/2020 DTL Nucleocapsid 5:00 PM CDT Total Ab, S Comment: No antibodies to SARS-CoV-2 detected. Ne gative results may occur in serum collected too soon fo llowing infection,in immunosuppressed patients o r in patients with mild or asymptomatic infection. Thi s test does not rule out active or recent COVID-19 i nfection and will not detect SARS-CoV-2 vaccine-induc ed antibodies. Follow up testing with a molecular test is recommended in symptomatic patients. ----ADDITIONAL INFORMATION---- Testing was performed using the [employer] [id number] Reagent assay from [employer], which has received Emergency Use Authori zation(EUA) by the U.S. Food and Drug Administration . Fact sheets for this Emergency Use Autho rization (EUA) assay can be found at the following link s: For Healthcare Providers: https://www.fda.gov/media/513822/downloa d For Patients: https://www.fda.gov/media/552612/downloa d Specimen Anatomical Collection Method Collection Time Receive d Time (Source) Location / / Volume Laterality Blood (Blood, 12/03/2020 6:33 AM 12/04/19 21 4:19 Venous) CDT PM CDT Prince Powers M.D. LAB MICROBIOLOGY - BLOOD ORD ERABLES Performing Organization Address City/[facility]/ZIP [facility] Phon e Number [facility] - [address] [place], [place] [address] [facility] [place] [address] Laboratories-[facility] 200 [facility] (ABNORMAL) Glucose, POCT (12/02/2020 9:06 PM CDT) Analysis Performed At Patho logist Time Signature Glucose, POCT, 211 (H) 70 - 140 12/02/2020 PCLX B mg/dL 9:18 PM CDT Site Capillary 12/02/2020 PCL[facility] 9:18 PM CDT Last Intake > 4 hours 12/02/2020 P[facility] 9:18 PM CDT Specimen Anatomical Collection Method Collection Time Receive d Time (Source) Location / / Volume Laterality Blood 12/02/2020 9:06 PM 9:18 CDT PM CDT Unknown Provider LAB POCT ORDERABLES-MANUAL Performing Organization Address City/[facility] Phon e Number POC [facility] [address] [place] [address] [place] [address] [facility] 200 [facility] CORONARY ANGIOGRAPHY (12/02/2020 5:47 PM CDT) Anatomical Region Laterality Modality X-Ray Angiography Specimen (Source) Anatomical Collection Method Collection Time Re ceived Time Location / / Volume Laterality 12/02/2020 5:13 PM CDT Narrative 12/02/2020 6:41 PM CDT For the complete report, see the Order-L evel Documents. PROCEDURE TYPES 1. ??CORONARY ANGIOGRAPHY FINAL DIAGNOSIS 1. ??Non ST-elevation myocardial infarct ion 2. ??Moderate coronary artery atheroscle rosis PRE-PROCEDURE DIAGNOSIS 1. ??Atherosclerotic Heart Disease Nativ e Coronary Artery With Other Forms Angina Pectoris (Stable Angina/Angina Of Exertion) (HCC) CORONARY DIAGNOSTIC SUMMARY Coronary artery dominance is left. Mackenzie l left main coronary. The proximal left anterior descending ar jean-pierre is 20% obstructed by a tubular lesion. The middle left anterior descending melonie ry is 50% obstructed by a discrete lesion and 40% obstructed by a tubular lesion. The distal left anterior descending melonie ry is 20% obstructed by a tubular lesion. The distal circumflex artery is 50% obst ructed by a discrete lesion. The first obtuse marginal is 50% obstruc tia by a discrete lesion. The proximal right coronary artery is 20 % obstructed by a discrete lesion. The distal segment is small size. Patent stent in the mid LAD with minimal instent restenosis. RADIATION DOSE DATA Procedure cumulative skin dose (mGy): 24 4.11 Procedure cumulative dose area product ( Gy-cm2): 21.55 Fluoro Time (Min): 6.33 CONTRAST DOSE DATA IOHEXOL 350 MG IODINE/ML INTRAVENOUS GRANT UTION: 50mL For the complete report, see the Order-L evel Documents. Osman Morton M.D. CV CARDIAC CATH PROCEDURES Glucose, POCT (12/02/2020 3:25 PM CDT) Analysis Performed At [facility] Signature Glucose, POCT, 104 70 - 140 12/02/2020 PCLX B mg/dL 3:27 PM CDT Site Capillary 12/02/2020 P[facility] 3:27 PM CDT Last Intake NPO 12/02/2020 [facility] 3:27 PM CDT Specimen Anatomical Collection Method Collection Time Receive d Time (Source) Location / / Volume Laterality Blood 12/02/2020 3:25 PM 3:27 CDT PM CDT Unknown Provider LAB POCT ORDERABLES-MANUAL Performing Organization Address City/State/ZIP Code Phon e Number POC [facility] [address] [place] [address] PCL[facility] [place] [address] [place] POC [address] Glucose, POCT (12/02/2020 12:12 PM CDT) Analysis Performed At [facility] Time Signature Glucose, POCT, 105 70 - 140 12/02/2020 PCLX B mg/dL 12:18 PM CDT Site Capillary 12/02/2020 [facility] 12:18 PM CDT Last Intake > 4 hours 12/02/2020 [facility] 12:18 PM CDT Specimen Anatomical Collection Method Collection Time Receive d Time (Source) Location / / Volume Laterality Blood 12/02/2020 12:12 12/02/2020 PM CDT 12:19 PM CDT Unknown Provider LAB POCT ORDERABLES-MANUAL Performing Organization Address City/[facility]/ZIP Code Phon e Number POC [facility] [address] [place] [address] [place] [address] [place] POC [address] [facility] Glucose, POCT (12/02/2020 8:14 AM CDT) Analysis Performed At Patho logist Time Signature Glucose, POCT, 128 70 - 140 12/02/2020 PCLX B mg/dL 8:38 AM CDT Last Intake > 4 hours 12/02/2020 [facility] 8:38 AM CDT Specimen Anatomical Collection Method Collection Time Receive d Time (Source) Location / / Volume Laterality Blood 12/02/2020 8:14 AM 8:39 CDT AM CDT Unknown Provider LAB POCT ORDERABLES-MANUAL Performing Organization Address City/State/[facility] Code Phon e Number POC [facility] [address] [place] [address] [place] [address] [place] POC [address] [facility] DX Chest AP or PA and Lateral 2 Views (12/02/2020 8:00 AM CDT) Anatomical Region Laterality Modality Chest, Thoracic RST LOS, Thoracic ARZ LOS, Thoracic N/A Digital Radiography FLA LOS Specimen (Source) Anatomical Collection Method Collection Time Re ceived Time Location / / Volume Laterality 12/02/2020 8:03 AM CDT Impressions 12/02/2020 8:12 AM CDT Since 12/01/2020, stable appearing left mazop-fn-gipcobhq pneumothorax without mediastinal shift. Retrocardiac consolidation/atelectasis and probable trace left pleural effusion . Normal cardiac contour. Right-sided basilar atelectasis without pneumothorax or effusion. Decreased left lateral chest wall subcutaneous emphysema. Narrative 12/02/2020 8:12 AM CDT EXAM: ??DX CHEST AP OR PA AND LATERAL 2 VIEWS Procedure Note Derek Cuh M.D. - 12/02/2020Formatt ing of this note might be different from the original. EXAM: DX CHEST AP OR PA AND LATERAL 2 EWS IMPRESSION: Since 12/01/2020, stable appearing left qtmel-cj-mhwlvfde pneumothorax without mediastinal shift. Retrocardiac consolidation/atelectasis and probable trace left pleural effusion . Normal cardiac contour. Right-sided basilar atelectasis without pneumothorax or effusion. Decreased left lateral chest wall subcutaneous emphysema. Prince Powers M.D. IMLady DIAGNOSTIC IMAGING PROCE DURES (ABNORMAL) CBC with Differential, Blood (12/02/2020 7:38 AM CDT) [facility] Method Time Signature Hemoglobin 11.9 (L) 13.2 - 12/02/2020 DTL 16.6 g/dL 8:21 AM CDT Hematocrit 36.0 (L) 38.3 - 12/02/2020 DTL 48.6 % 8:21 AM CDT Erythrocytes 4.17 (L) 4.35 - 12/02/2020 DTL 5.65 8:21 AM CDT x10(12)/L MCV 86.3 78.2 - 12/02/2020 DTL 97.9 fL 8:21 AM CDT RBC Distrib Width 14.2 11.8 - 12/02/2020 DTL 14.5 % 8:21 AM CDT Platelet Count 267 135 - 317 12/02/2020 DTL x10(9)/L 8:21 AM CDT Leukocytes 12.3 (H) 3.4 - 9.6 12/02/2020 DTL x10(9)/L 8:21 AM CDT Neutrophils 8.94 (H) 1.56 - 12/02/2020 DTL 6.45 8:21 AM CDT x10(9)/L Lymphocytes 1.89 0.95 - 12/02/2020 DTL 3.07 8:21 AM CDT x10(9)/L Monocytes 0.94 (H) 0.26 - 12/02/2020 DTL 0.81 8:21 AM CDT x10(9)/L Eosinophils 0.46 0.03 - 12/02/2020 DTL 0.48 8:21 AM CDT x10(9)/L Basophils 0.11 (H) 0.01 - 12/02/2020 DTL 0.08 8:21 AM CDT x10(9)/L Specimen Anatomical Collection Method Collection Time Receive d Time (Source) Location / / Volume Laterality Blood (Blood, 12/02/2020 7:38 AM 12/03/19 7:56 Venous) CDT AM CDT Prince Powers M.D. LAB BLOOD ADD-ON Performing Organization Address City/State/ZIP Code Phon e Number [facility] - [address] [place] [phone] [facility] [place] [address] Laboratories-[facility] 200 [facility] Basic Metabolic Panel (12/02/2020 7:38 AM CDT) P athologist Signature Potassium, S 4.1 3.6 - 5.2 12/02/2020 DTL mmol/L 8:30 AM CDT Sodium, S 140 135 - 145 12/02/2020 DTL mmol/L 8:30 AM CDT Chloride, S 101 98 - 107 12/02/2020 DTL mmol/L 8:30 AM CDT Bicarbonate, S 28 22 - 29 12/02/2020 DTL mmol/L 9:04 AM CDT Anion Gap 11 7 - 15 12/02/2020 DTL 9:04 AM CDT BUN (Blood Urea 15 8 - 24 12/02/2020 DTL Nitrogen), S mg/dL 8:30 AM CDT Creatinine 0.87 0.74 - 12/02/2020 DTL 1.35 mg/dL 8:30 AM CDT eGFR-Non >90 >=60 12/02/2020 DTL Black/ mL/min/BSA 8:30 AM CDT [place] Comment: ----ADDITIONAL INFORMATION---- Estimated GFR calculated using the 2009 CKD_EPI creatinine equation. eGFR-Black/ >90 >=60 mL/min/BSA 2020 8:30 AM CDT DTL Comment: ----ADDITIONAL INFORMATION---- Estimated GFR calculated using the 2009 CKD_EPI creatinine equation. Calcium, Total, S 8.8 8.6 - 10.0 mg/dL 12/02/2020 8:30 AM CDT DTL Glucose, S 140 70 - 140 mg/dL 12/02/2020 8:30 AM CDT D TL Specimen Anatomical Collection Method Collection Time Receive d Time (Source) Location / / Volume Laterality Blood (Blood, 12/02/2020 7:38 AM 12/03/19 8:12 Venous) CDT AM CDT Prince Powers M.D. LAB BLOOD ADD-ON Performing Organization Address City/State/ZIP Code Phon e Number [facility] - [address] [place], [place] [address] [facility] [place] [address] Formerly [facility] [address] (ABNORMAL) Glucose, POCT (12/01/2020 9:22 PM CDT) Analysis Performed At Patho logist Time Signature Glucose, POCT, 238 (H) 70 - 140 12/01/2020 PCLX B mg/dL 9:27 PM CDT Site Capillary 12/01/2020 PCLX 9:27 PM CDT Last Intake > 4 hours 12/01/2020 PCLX 9:27 PM CDT Specimen Anatomical Collection Method Collection Time Receive d Time (Source) Location / / Volume Laterality Blood 12/01/2020 9:22 PM 9:28 CDT PM CDT Unknown Provider LAB POCT ORDERABLES-MANUAL Performing Organization Address City/[facility] Phon e Number POC [facility] [address] [place] [address] [place] [address] [place] POC [address] [facility] Glucose, POCT (12/01/2020 5:31 PM CDT) Analysis Performed At Patho logist Time Signature Glucose, POCT, 134 70 - 140 12/01/2020 PCLX B mg/dL 5:34 PM CDT Last Intake 3-4 hours 12/01/2020 PCLX 5:34 PM CDT Specimen Anatomical Collection Method Collection Time Receive d Time (Source) Location / / Volume Laterality Blood 12/01/2020 5:31 PM 5:35 CDT PM CDT Unknown Provider LAB POCT ORDERABLES-MANUAL Performing Organization Address City/[facility]/ZIP Code Phon e Number POC [facility] [address] [place] [address] [place] [address] [place] POC [address] [facility] DX Chest AP or PA and Lateral 2 Views (12/01/2020 1:28 PM CDT) Anatomical Region Laterality Modality Chest, Thoracic RST LOS, Thoracic ARZ LOS, Thoracic N/A Digital Radiography FLA LOS Specimen (Source) Anatomical Collection Method Collection Time Re ceived Time Location / / Volume Laterality 12/01/2020 1:31 PM CDT Impressions 12/01/2020 2:06 PM CDT Since today at 8:31 AM, there is no significant change. Small to moderate-sized left apical pneumothorax remains stable. Left lateral subcutaneous emphysema. Mild bibasilar a telectasis. Narrative 12/01/2020 2:06 PM CDT EXAM: ??DX CHEST AP OR PA AND LATERAL 2 VIEWS Procedure Note Christian Medrano M.D. - 12/01/2020Fo rmatting of this note might be different from the original. EXAM: DX CHEST AP OR PA AND LATERAL 2 EWS IMPRESSION: Since today at 8:31 AM, there is no sign ificant change. Small to moderate-sized left apical pneumothorax remains stable. Left lateral subcutaneous emphysema. Mild bibasilar a telectasis. Constantino Arellano IMG DIAGNOSTIC IMAGING PROCE [facility] Glucose, POCT (12/01/2020 11:35 AM CDT) Analysis Performed At [facility] Signature Glucose, POCT, 121 70 - 140 12/01/2020 PCLX B mg/dL 11:41 AM CDT Site Capillary 12/01/2020 PCLX 11:41 AM CDT Specimen Anatomical Collection Method Collection Time Receive d Time (Source) Location / / Volume Laterality Blood 12/01/2020 11:35 12/01/2020 AM CDT 11:41 AM CDT Unknown Provider LAB POCT ORDERABLES-MANUAL Performing Organization Address City/State/ZIP Code Phon e Number POC [facility] [address] [place] [address] PCL[facility] [place] [address] [place] POC [address] (ABNORMAL) Glucose, POCT (12/01/2020 9:33 AM CDT) Analysis Performed At [facility] Time Signature Glucose, POCT, 153 (H) 70 - 140 12/01/2020 PCLX B mg/dL 9:36 AM CDT Site Capillary 12/01/2020 PCLX 9:36 AM CDT Last Intake NPO 12/01/2020 PCLX 9:36 AM CDT Specimen Anatomical Collection Method Collection Time Receive d Time (Source) Location / / Volume Laterality Blood 12/01/2020 9:33 AM 9:37 CDT AM CDT Unknown Provider LAB POCT ORDERABLES-MANUAL Performing Organization Address City/State/ZIP Code Phon e Number POC [facility] [address] [place] [address] PCLX [facility] [place] [address] [place] POC [address] DX Chest AP or PA and Lateral 2 Views (12/01/2020 8:31 AM CDT) Anatomical Region Laterality Modality Chest, Thoracic RST LOS, Thoracic ARZ LOS, Thoracic N/A Digital Radiography FLA LOS Specimen (Source) Anatomical Collection Method Collection Time Re ceived Time Location / / Volume Laterality 12/01/2020 8:34 AM CDT Impressions 12/01/2020 8:54 AM CDT Since 11/28/2020, interval removal of ??left apical pigtail catheter and additional left chest tube. ETT danni teo. Moderate left pneumothorax. No mediastinal shift. Left lower lobe conso lidation with compressive atelectasis. Right-sided basilar atelectasis without pneumothorax or significant effusion. Similar bilateral perihilar opacities. S oft tissue emphysema left chest wall. Narrative 12/01/2020 8:54 AM CDT EXAM: ??DX CHEST AP OR PA AND LATERAL 2 VIEWS Procedure Note Joseph Pitts M.D. - 12/01/2020For matting of this note might be different from the original. EXAM: DX CHEST AP OR PA AND LATERAL 2 EWS IMPRESSION: Since 11/28/2020, interval removal of le ft apical pigtail catheter and additional left chest tube. ETT danni teo. Moderate left pneumothorax. No mediastinal shift. Left lower lobe conso lidation with compressive atelectasis. Right-sided basilar atelectasis without pneumothorax or significant effusion. Similar bilateral perihilar opacities. S oft tissue emphysema left chest wall. Esthela Ryder M.D. IMG DIAGNOSTIC IMAGING PROCE DURES APTT (Activated Partial Thromboplastin Time) (12/01/2020 7:04 AM CDT) P athologist Signature Activated 29 25 - 37 sec 12/01/2020 DTL Partial 8:23 AM CDT Thrombopl Time, P Specimen Anatomical Collection Method Collection Time Receive d Time (Source) Location / / Volume Laterality Blood (Blood, 12/01/2020 7:04 AM 12/02/19 21 7:53 Venous) CDT AM CDT Aniyah Roberson M.D. LAB BLOOD ADD-ON Performing Organization Address City/[facility] Phon e Number [facility] - [address] [place], [place] [address] [place] [address] [place] [id number] [place] [address] Prothrombin Time (PT) (12/01/2020 7:04 AM CDT) athologist Signature Prothrombin 12.2 9.4 - 12.5 12/01/2020 DTL Time, P sec 8:23 AM CDT INR 1.1 0.9 - 1.1 12/01/2020 DTL 8:23 AM CDT Comment: ----ADDITIONAL INFORMATION---- Standard intensity warfarin therapeutic range: 2.0 to 3.0 ?? High intensity warfarin therapeutic rang e: 2.5 to 3.5 Specimen Anatomical Collection Method Collection Time Receive d Time (Source) Location / / Volume Laterality Blood (Blood, 12/01/2020 7:04 AM 12/02/19 21 7:53 Venous) CDT AM CDT Aniyah Roberson M.D. LAB BLOOD ADD-ON Performing Organization Address City/[facility] Phon e Number [facility] - [address] [place], [place] [address] [facility] [place] [address] (ABNORMAL) CBC without Differential (12/01/2020 7:04 AM CDT) Patholo gist Method Time Signature Hemoglobin 12.6 (L) 13.2 - 12/01/2020 DTL 16.6 g/dL 7:59 AM CDT Hematocrit 38.6 38.3 - 12/01/2020 DTL 48.6 % 7:59 AM CDT Erythrocytes 4.51 4.35 - 12/01/2020 DTL 5.65 7:59 AM CDT x10(12)/L MCV 85.6 78.2 - 12/01/2020 DTL 97.9 fL 7:59 AM CDT RBC Distrib Width 14.4 11.8 - 12/01/2020 DTL 14.5 % 7:59 AM CDT Platelet Count 256 135 - 317 12/01/2020 DTL x10(9)/L 7:59 AM CDT Leukocytes 11.3 (H) 3.4 - 9.6 12/01/2020 DTL x10(9)/L 7:59 AM CDT Specimen Anatomical Collection Method Collection Time Receive d Time (Source) Location / / Volume Laterality Blood (Blood, 12/01/2020 7:04 AM 12/02/19 21 7:53 Venous) CDT AM CDT Aniyah Roberson M.D. LAB BLOOD ADD-ON Performing Organization Address City/State/ZIP Code Phon e Number [facility] - [address] [place], [place] [address] [facility] [place] [address] Laboratories-[facility] [address] [facility] (ABNORMAL) Basic Metabolic Panel (12/01/2020 7:04 AM CDT) P athologist Signature Potassium, S 4.1 3.6 - 5.2 12/01/2020 DTL mmol/L 8:35 AM CDT Sodium, S 139 135 - 145 12/01/2020 DTL mmol/L 8:35 AM CDT Chloride, S 100 98 - 107 12/01/2020 DTL mmol/L 8:35 AM CDT Bicarbonate, S 30 (H) 22 - 29 12/01/2020 DTL mmol/L 8:35 AM CDT Anion Gap 9 7 - 15 12/01/2020 DTL 8:35 AM CDT BUN (Blood Urea 14 8 - 24 12/01/2020 DTL Nitrogen), S mg/dL 8:35 AM CDT Creatinine 0.84 0.74 - 12/01/2020 DTL 1.35 mg/dL 8:35 AM CDT eGFR-Non >90 >=60 12/01/2020 DTL Black/ mL/min/BSA 8:35 AM CDT Angolan Comment: ----ADDITIONAL INFORMATION---- Estimated GFR calculated using the 2009 CKD_EPI creatinine equation. eGFR-Black/ >90 >=60 mL/min/BSA 2020 8:35 AM CDT DTL Comment: ----ADDITIONAL INFORMATION---- Estimated GFR calculated using the 2009 CKD_EPI creatinine equation. Calcium, Total, S 8.9 8.6 - 10.0 mg/dL 12/01/2020 8:35 AM CDT DTL Glucose, S 157 (H) 70 - 140 mg/dL 12/01/2020 8:35 AM CDT D TL Specimen Anatomical Collection Method Collection Time Receive d Time (Source) Location / / Volume Laterality Blood (Blood, 12/01/2020 7:04 AM 12/02/19 7:40 Venous) CDT AM CDT Aniyah Roberson M.D. LAB BLOOD ADD-ON Performing Organization Address City/State/ZIP Code Phon e Number [facility] - [address] [place], [place] [address] [facility] [place] [address] [facility] [address] (ABNORMAL) Glucose, POCT (11/30/2020 9:55 PM CDT) Analysis Performed At Patho logist Time Signature Glucose, POCT, 195 (H) 70 - 140 11/30/2020 PCLX B mg/dL 10:07 PM CDT Site Capillary 11/30/2020 PCLX 10:07 PM CDT Last Intake 3-4 hours 11/30/2020 PCLX 10:07 PM CDT Specimen Anatomical Collection Method Collection Time Receive d Time (Source) Location / / Volume Laterality Blood 11/30/2020 9:55 PM CDT 10:08 PM CDT Unknown Provider LAB POCT ORDERABLES-MANUAL Performing Organization Address City/State/ZIP Code Phon e Number [facility] [address] [place] [address] PCLX [facility] [place] [address] [facility] [address] [facility] pH, Urine (11/30/2020 5:43 PM CDT) P athologist Signature pH, U 5.3 4.5 - 8.0 11/30/2020 8:56 DTL PM CDT Specimen Anatomical Collection Method Collection Time Receive d Time (Source) Location / / Volume Laterality Urine 11/30/2020 5:43 PM 6:06 CDT PM CDT Esthela Ryder M.D. LAB URINE ORDERABLES Performing Organization Address City/[facility] Phon e Number [facility] - [address] [place], [place] [address] [facility] [place] [address] Laboratories-[address] (ABNORMAL) Microscopic Automated (11/30/2020 5:43 PM CDT) Analysis Performed At [facility] Time Signature Microscopy Abnormal 11/30/2020 DTL 6:35 PM CDT RBC 3-10 (A) <3 /hpf 11/30/2020 DTL 6:35 PM CDT Dysmorphic RBC <25 <25 % 11/30/2020 DTL 6:35 PM CDT WBC 4-10 (A) /hpf 11/30/2020 DTL 6:35 PM CDT Comment: ----REFERENCE VALUE---- 1-3 ??(Males) 1-10 (Females) Specimen Anatomical Collection Method Collection Time Receive d Time (Source) Location / / Volume Laterality Urine 11/30/2020 5:43 PM 6:06 CDT PM CDT Esthela Ryder M.D. LAB URINE ORDERABLES Performing Organization Address City/[facility] Code Phon e Number [facility] - [address] [place], [place] [address] [place] [address] Laboratories-[address] Osmolality, Urine (11/30/2020 5:43 PM CDT) P athologist Signature Osmolality, U 492 150 - 1150 11/30/2020 DTL mOsm/kg 8:56 PM CDT Specimen Anatomical Collection Method Collection Time Receive d Time (Source) Location / / Volume Laterality Urine 11/30/2020 5:43 PM 6:06 CDT PM CDT Esthela Ryder M.D. LAB URINE ORDERABLES Performing Organization Address [facility] Phon e Number [facility] - [address] [place], [place] [address] [place] [address] [place] [address] (ABNORMAL) Dipstick, Urine (11/30/2020 5:43 PM CDT) [facility] Method Time Signature Hemoglobin, Small (A) Negative 11/30/2020 DTL QL 6:35 PM CDT Leukocyte Moderate (A) Negative 11/30/2020 DTL Esterase, U 6:35 PM CDT Nitrite, U Negative Negative 11/30/2020 DTL 6:35 PM CDT Ketones, U Negative Negative 11/30/2020 DTL mg/dL 6:35 PM CDT Glucose, U 70 (A) Negative 11/30/2020 DTL mg/dL 6:35 PM CDT Specimen Anatomical Collection Method Collection Time Receive d Time (Source) Location / / Volume Laterality Urine 11/30/2020 5:43 PM 6:06 CDT PM CDT Esthela Rydre M.D. LAB URINE ORDERABLES Performing Organization Address [facility] Phon e Number [facility] - [address] [place] [phone] Urinalysis with Microscopic: Urine, Midstream (11/30/2020 5:43 PM CDT) [facility] Method Time Signature Source Urine, Urine, 11/30/2020 DTL Midstream 6:06 PM CDT Color, U Yellow 11/30/2020 DTL 6:06 PM CDT Clarity, U Clear 11/30/2020 DTL 6:06 PM CDT Protein, U 14 <26 mg/dL 11/30/2020 DTL 6:45 PM CDT Protein/Osmol 0.28 <0.42 11/30/2020 DTL ality ratio 8:56 PM CDT Predicted 24 284 mg/24 h 11/30/2020 DTL Hr Protein 8:56 PM CDT Predicted 90-896 mg/24 h 11/30/2020 DTL Range 8:56 PM CDT Specimen Anatomical Collection Method Collection Time Receive d Time (Source) Location / / Volume Laterality Urine (Urine, 11/30/2020 5:43 PM 12/01/19 6:06 Midstream) CDT PM CDT Esthela Ryder M.D. LAB URINE ORDERABLES Performing Organization Address City/[facility]/ZIP Code Phon e Number [facility] - [address] [place] [phone] [facility] [place] [address] [facility] 200 [facility] (ABNORMAL) Glucose, POCT (11/30/2020 5:20 PM CDT) Analysis Performed At Patho logist Time Signature Glucose, POCT, 161 (H) 70 - 140 11/30/2020 PCLX B mg/dL 5:43 PM CDT Site Capillary 11/30/2020 PCLX 5:43 PM CDT Last Intake > 4 hours 11/30/2020 PCLX 5:43 PM CDT Specimen Anatomical Collection Method Collection Time Receive d Time (Source) Location / / Volume Laterality Blood 11/30/2020 5:20 PM 5:43 CDT PM CDT Unknown Provider LAB POCT ORDERABLES-MANUAL Performing Organization Address City/[facility] Phon e Number POC [facility] [address] [place] [address] [place] [address] [facility] 200 [facility] (ABNORMAL) Glucose, POCT (11/30/2020 11:41 AM CDT) Analysis Performed At Patho logist Time Signature Glucose, POCT, 204 (H) 70 - 140 11/30/2020 PCLX B mg/dL 11:48 AM CDT Site Capillary 11/30/2020 PCLX 11:48 AM CDT Last Intake 1-2 hours 11/30/2020 PCLX 11:48 AM CDT Specimen Anatomical Collection Method Collection Time Receive d Time (Source) Location / / Volume Laterality Blood 11/30/2020 11:41 11/30/2020 AM CDT 11:48 AM CDT Unknown Provider LAB POCT ORDERABLES-MANUAL Performing Organization Address City/[facility]/ZIP Code Phon e Number POC [facility] [address] [place] [address] [place] [address] [place] POC [address] [facility] (ABNORMAL) Glucose, POCT (11/30/2020 7:35 AM CDT) Analysis Performed At Patho logist Time Signature Glucose, POCT, 150 (H) 70 - 140 11/30/2020 PCLX B mg/dL 7:38 AM CDT Site Capillary 11/30/2020 PCLX 7:38 AM CDT Last Intake > 4 hours 11/30/2020 PCLX 7:38 AM CDT Specimen Anatomical Collection Method Collection Time Receive d Time (Source) Location / / Volume Laterality Blood 11/30/2020 7:35 AM 7:38 CDT AM CDT Unknown Provider LAB POCT ORDERABLES-MANUAL Performing Organization Address City/State/ZIP Code Phon e Number [facility] [address] [place] [address] [place], [place] [id number] [place] [address] POC [address] [facility] Calcium, Ionized (11/30/2020 12:06 AM CDT) P athologist Signature Calcium, 4.85 4.57 - 5.43 11/30/2020 DTL Ionized, S mg/dL 1:20 AM CDT Comment: ----ADDITIONAL INFORMATION---- This test has been modified from the man pratikacturer's instructions. Its performance characteri stics were determined by [facility] in a manner co nsistent with CLIA requirements. This test has not bee n cleared or approved by the U.S. Food and Drug Admin istration. pH for Ionized Calcium 7.48 7.35 - 7.48 11/30/2020 1:20 AM CDT DTL Specimen Anatomical Collection Method Collection Time Receive d Time (Source) Location / / Volume Laterality Blood (Blood, 11/30/2020 12:06 11/30/2020 Venous) AM CDT 12:45 AM CDT Aniyah Roberson M.D. LAB BLOOD NON ADD-ON Performing Organization Address City/[facility]/ZIP Code Phon e Number [facility] - [address] [place] [phone] [facility] [place] [address] Phosphorus Inorganic (11/30/2020 12:06 AM CDT) P athologist Signature Phosphorus 3.6 2.5 - 4.5 11/30/2020 DTL (Inorganic), S mg/dL 1:17 AM CDT Specimen Anatomical Collection Method Collection Time Receive d Time (Source) Location / / Volume Laterality Blood (Blood, 11/30/2020 12:06 11/30/2020 Venous) AM CDT 12:45 AM CDT Aniyah Roberson M.D. LAB BLOOD ADD-ON Performing Organization Address City/[facility] Phon e Number [facility] - [address] [place] [address] Magnesium (11/30/2020 12:06 AM CDT) athologist Signature Magnesium, S 1.8 1.7 - 2.3 11/30/2020 DTL mg/dL 1:17 AM CDT Specimen Anatomical Collection Method Collection Time Receive d Time (Source) Location / / Volume Laterality Blood (Blood, 11/30/2020 12:06 11/30/2020 Venous) AM CDT 12:45 AM CDT Aniyah Roberson M.D. LAB BLOOD ADD-ON Performing Organization Address City/[facility] Phon e Number [facility] - [address] [place], [place] [address] [place] [address] [place] [address] (ABNORMAL) CBC with Differential, Blood (11/30/2020 12:06 AM CDT) Patholo gist Method Time Signature Hemoglobin 11.7 (L) 13.2 - 11/30/2020 DTL 16.6 g/dL 12:52 AM CDT Hematocrit 36.2 (L) 38.3 - 11/30/2020 DTL 48.6 % 12:52 AM CDT Erythrocytes 4.19 (L) 4.35 - 11/30/2020 DTL 5.65 12:52 AM CDT x10(12)/L MCV 86.4 78.2 - 11/30/2020 DTL 97.9 fL 12:52 AM CDT RBC Distrib Width 14.4 11.8 - 11/30/2020 DTL 14.5 % 12:52 AM CDT Platelet Count 255 135 - 317 11/30/2020 DTL x10(9)/L 12:52 AM CDT Leukocytes 11.9 (H) 3.4 - 9.6 11/30/2020 DTL x10(9)/L 12:52 AM CDT Neutrophils 6.99 (H) 1.56 - 11/30/2020 DTL 6.45 12:52 AM CDT x10(9)/L Lymphocytes 3.16 (H) 0.95 - 11/30/2020 DTL 3.07 12:52 AM CDT x10(9)/L Monocytes 1.18 (H) 0.26 - 11/30/2020 DTL 0.81 12:52 AM CDT x10(9)/L Eosinophils 0.44 0.03 - 11/30/2020 DTL 0.48 12:52 AM CDT x10(9)/L Basophils 0.11 (H) 0.01 - 11/30/2020 DTL 0.08 12:52 AM CDT x10(9)/L Specimen Anatomical Collection Method Collection Time Receive d Time (Source) Location / / Volume Laterality Blood (Blood, 11/30/2020 12:06 11/30/2020 Venous) AM CDT 12:45 AM CDT Aniyah Roberson M.D. LAB BLOOD ADD-ON Performing Organization Address City/State/ZIP Code Phon e Number [facility] - [address] [place], [place] [address] [facility] [place] [address] [facility] 200 [facility] Basic Metabolic Panel (11/30/2020 12:06 AM CDT) P athologist Signature Potassium, S 3.9 3.6 - 5.2 11/30/2020 DTL mmol/L 1:17 AM CDT Sodium, S 138 135 - 145 11/30/2020 DTL mmol/L 1:17 AM CDT Chloride, S 100 98 - 107 11/30/2020 DTL mmol/L 1:17 AM CDT Bicarbonate, S 28 22 - 29 11/30/2020 DTL mmol/L 1:17 AM CDT Anion Gap 10 7 - 15 11/30/2020 DTL 1:17 AM CDT BUN (Blood Urea 16 8 - 24 11/30/2020 DTL Nitrogen), S mg/dL 1:17 AM CDT Creatinine 0.80 0.74 - 11/30/2020 DTL 1.35 mg/dL 1:17 AM CDT eGFR-Non >90 >=60 11/30/2020 DTL Black/ mL/min/BSA 1:17 AM CDT [place] Comment: ----ADDITIONAL INFORMATION---- Estimated GFR calculated using the 2009 CKD_EPI creatinine equation. eGFR-Black/ >90 >=60 mL/min/BSA 2020 1:17 AM CDT DTL Comment: ----ADDITIONAL INFORMATION---- Estimated GFR calculated using the 2009 CKD_EPI creatinine equation. Calcium, Total, S 8.7 8.6 - 10.0 mg/dL 11/30/2020 1:17 AM CDT DTL Glucose, S 131 70 - 140 mg/dL 11/30/2020 1:17 AM CDT D TL Specimen Anatomical Collection Method Collection Time Receive d Time (Source) Location / / Volume Laterality Blood (Blood, 11/30/2020 12:06 11/30/2020 Venous) AM CDT 12:45 AM CDT Aniyah Roberson M.D. LAB BLOOD ADD-ON Performing Organization Address City/State/ZIP Code Phon e Number [facility] - [address] [place], [place] [address] [facility] [place] [address] Laboratories-[facility] [address] (ABNORMAL) Glucose, POCT (11/29/2020 10:17 PM CDT) Analysis Performed At Patho logist Time Signature Glucose, POCT, 168 (H) 70 - 140 11/29/2020 PCLX B mg/dL 10:20 PM CDT Site Capillary 11/29/2020 PCLX 10:20 PM CDT Last Intake > 4 hours 11/29/2020 PCLX 10:20 PM CDT Specimen Anatomical Collection Method Collection Time Receive d Time (Source) Location / / Volume Laterality Blood 11/29/2020 10:17 11/29/2020 PM CDT 10:20 PM CDT Unknown Provider LAB POCT ORDERABLES-MANUAL Performing Organization Address City/State/ZIP Code Phon e Number POC [facility] [address] [place] [address] [place] [address] [place] POC [address] (ABNORMAL) Glucose, POCT (11/29/2020 6:09 PM CDT) Analysis Performed At Patho logist Time Signature Glucose, POCT, 266 (H) 70 - 140 11/29/2020 PCLX B mg/dL 6:17 PM CDT Site Capillary 11/29/2020 PCLX 6:17 PM CDT Last Intake 3-4 hours 11/29/2020 PCLX 6:17 PM CDT Specimen Anatomical Collection Method Collection Time Receive d Time (Source) Location / / Volume Laterality Blood 11/29/2020 6:09 PM 6:17 CDT PM CDT Unknown Provider LAB POCT ORDERABLES-MANUAL Performing Organization Address City/[facility]/ZIP Code Phon e Number POC [facility] [address] [place] [address] [place] [address] [place] POC [address] [facility] (ABNORMAL) Glucose, POCT (11/29/2020 12:20 PM CDT) Analysis Performed At Path logis Time Signature Glucose, POCT, 232 (H) 70 - 140 11/29/2020 PCLX B mg/dL 12:22 PM CDT Site Capillary 11/29/2020 PCLX 12:22 PM CDT Specimen Anatomical Collection Method Collection Time Receive d Time (Source) Location / / Volume Laterality Blood 11/29/2020 12:20 11/29/2020 PM CDT 12:23 PM CDT Unknown Provider LAB POCT ORDERABLES-MANUAL Performing Organization Address City/[facility]/ZIP Code Phon e Number POC [facility] [address] [place] [address] [place] [address] [place] POC [address] [facility] (TTE) 2D ECHO DOPPLER COLOR AND CONTRAST (11/29/2020 10:21 AM CDT) Analysis Performed At Patho logist Time Signature Ejection Fraction 44 MC CV EIMS Wall Motion Score 1.75 MC CV EIMS Index LV End-Diastolic 58 MC CV EIMS Diameter LV End-Systolic 41 MC CV EIMS Diameter LV End-Diastolic 165 MC CV EIMS Volume LV End-Systolic 92 MC CV EIMS Volume MV E Velocity 0.7 MC CV EIMS MV A Velocity 0.8 MC CV EIMS MV E/A 0.87 MC CV EIMS MV e' Velocity 0.06 MC CV EIMS Medial MV e' Velocity 0.06 MC CV EIMS Lateral MV E/e' Medial 11.7 MC CV EIMS MV E/e' Lateral 11.7 MC CV EIMS Left ventricular 27 MC CV EIMS stroke volume index Cardiac Output 5.19 MC CV EIMS Cardiac Index 2.42 MC CV EIMS TAPSE 24 MC CV EIMS Tricuspid Annular 0.12 MC CV EIMS S? TR Vmax 2.96 MC CV EIMS RA Pressure 10 MC CV EIMS RV Systolic 45 MC CV EIMS Pressure AV mean gradient 3 MC CV EIMS Aortic valve area 2.85 MC CV EIMS Aortic Valve 0.75 MC CV EIMS Dimensionless Index WMSI At Rest 1.75 MC CV EIMS WMSI At Peak 1.75 MC CV EIMS Stress Anatomical Region Laterality Modality Echocardiography Specimen (Source) Anatomical Collection Method Collection Time Re ceived Time Location / / Volume Laterality 11/29/2020 9:09 AM CDT Impressions 11/29/2020 4:30 PM CDT Echo performed in the ICU with limited windows due to bandages from chest tubes.. ??Intravenous Lumason ultrasound enhancement agent(s) administered to enhance endocardial border definition. No previous studies available for compar irina. ??LEFT VENTRICLE: ??Mildly enlarged left ventricular chamber size. ??Calculated 2 -D biplane volumetric left ventricular ejection fraction 44 %. ??Left ventricular cardiac index 2 .42 l/min/m^2. ??Regional wall motion abnormalities were present (see wall motion graphics). ??In determinate left ventricular filling pressure. ??RIGHT VENTRICLE: ??Normal right ventricular ch fady size by visual estimate. ??Normal right ventricular systolic function. ??Estimated right laxmi tricular systolic pressure 45 mmHg (right atrial pressure of 10 mmHg). ??Estimated right ventricular systolic pressure 45 mmHg (systolic blood pressure 100 mmHg). ??ATRIA: ??Normal le ft atrial size by visual estimate. ??Normal right atrial size by visual estimate. ??CARDIAC VALVE S: ??Trileaflet aortic valve. ??Thickened aortic valve. No aortic valve regurgitation. ??Thicken ed mitral valve. ??Calcified mitral annulus. ??Trivial mitral valve regurgitation. ??Pulmonary valve not well visualized. ??Normal pulmonary valve systolic velocities. ??No pulmonary valv e regurgitation. ??Normal tricuspid valve. ??Trivial tricuspid valve regurgitation. ??OTHER E CHO FINDINGS: ??Enlarged inferior vena cava size with reduced inspiratory collapse (<50%). ??A scending aorta not well visualized. ??Abdominal aorta incompletely visualized. ??Normal abdomi nal aorta Doppler flow pattern. ??No atrial level shunt by color flow imaging. ??No intracardiac mass or thrombus, but the left atrial appendage cannot be visualized adequately with transthora cic echo to exclude thrombus in this location. ??No pericardial effusion. ??LUNG FINDINGS: ? ?Lung ultrasound performed. ??Absent lung sliding in left lung (known pneumothorax). ??Attempts we re made to optimize the echocardiographic images and two or more left ventricular segments were n ot visualized adequately to evaluate cardiac structure. The patient's current allergies and med ications have been screened. ??Imaging enhancement agent administered per Echocardiography Contra st Administration Protocol Reference Document [id number]. Patient met an inclusion cri terion and did not have contraindications in screening sections. For the complete report, see the [facility] Documents. Narrative 11/29/2020 4:30 PM CDT For the complete report, see the [facility] Documents. Final Impressions 1. Mildly enlarged left ventricular ivan linda size, regional wall motion abnormalities were present (see wall motion graphics), calc ulated 2-D biplane volumetric ejection fraction 44 %. 2. Indeterminate left ventricular fillin g pressure. 3. Normal right ventricular chamber size , normal systolic function, estimated right ventricular systolic pressure 45 mmHg (right atrial pressure of 10 mmHg). 4. No hemodynamically significant valvul ar heart disease. 5. No pericardial effusion. 6. No previous studies available for [facility] Procedure Note Guerda Calix M.D., Ph.D. - 11/29/2020 For the complete report, see the [facility] Documents. Final Impressions 1. Mildly enlarged left ventricular ivan linda size, regional wall motion abnormalities were present (see wall motion graphics), calc ulated 2-D biplane volumetric ejection fraction 44 %. 2. Indeterminate left ventricular fillin g pressure. 3. Normal right ventricular chamber size , normal systolic function, estimated right ventricular systolic pressure 45 mmHg (right atrial pressure of 10 mmHg). 4. No hemodynamically significant valvul ar heart disease. 5. No pericardial effusion. 6. No previous studies available for com parison. Findings Echo performed in the ICU with limited w indows due to bandages from chest tubes.. Intravenous Lumason ultrasound enhancement agent(s) administered to enhance endocardial border definition. No previous studies available for compar irina. LEFT VENTRICLE: Mildly enlarged left ventricular chamber size. Calculated 2-D biplane volumetric left ventricular ejection fraction 44 %. Left ventricular cardiac index 2.4 2 l/min/m^2. Regional wall motion abnormalities were present (see wall motion graphics). Inde terminate left ventricular filling pressure. RIGHT VENTRICLE: Normal right ventricular ivan linda size by visual estimate. Normal right ventricular systolic function. Estimated right ventr icular systolic pressure 45 mmHg (right atrial pressure of 10 mmHg). Estimated right ve ntricular systolic pressure 45 mmHg (systolic blood pressure 100 mmHg). ATRIA: Normal left a trial size by visual estimate. Normal right atrial size by visual estimate. CARDIAC VALVES: Trileaflet aortic valve. Thickened aortic valve. No aortic valve regurgitation. Thickened mitral valve. Calcified mitral annulus. Trivial mitral valve regurgitation. Pulmonary va lve not well visualized. Normal pulmonary valve systolic velocities. No pulmonary valve regurgitation. Normal tricuspid valve. Trivial tricuspid valve regurgitation. OTHER ECH O FINDINGS: Enlarged inferior vena cava size with reduced inspiratory collapse (<50%). Asc ending aorta not well visualized. Abdominal aorta incompletely visualized. Normal abdomina l aorta Doppler flow pattern. No atrial level shunt by color flow imaging. No intracardiac m ass or thrombus, but the left atrial appendage cannot be visualized adequately with transthora cic echo to exclude thrombus in this location. No pericardial effusion. LUNG FINDINGS: Mary g ultrasound performed. Absent lung sliding in left lung (known pneumothorax). Attempts were made to optimize the echocardiographic images and two or more left ventricular segments were n ot visualized adequately to evaluate cardiac structure. The patient's current allergies and med ications have been screened. Imaging enhancement agent administered per Echocardiography Contra st Administration Protocol Reference Document [id number]. Patient met an inclusion cri terion and did not have contraindications in screening sections. For the complete report, see the [facility] Documents. Aniyah Roberson M.D. CV ECHO PROCEDURES (ABNORMAL) Glucose, POCT (11/29/2020 8:07 AM CDT) Analysis Performed At Patho logist Time Signature Glucose, POCT, 189 (H) 70 - 140 11/29/2020 PCLX B mg/dL 8:10 AM CDT Site ARTLINE 11/29/2020 PCLX 8:10 AM CDT Last Intake > 4 hours 11/29/2020 PCLX 8:10 AM CDT Specimen Anatomical Collection Method Collection Time Receive d Time (Source) Location / / Volume Laterality Blood 11/29/2020 8:07 AM 8:10 CDT AM CDT Unknown Provider LAB POCT ORDERABLES-MANUAL Performing Organization Address City/State/ZIP Code Phon e Number POC [facility] [address] [place] [address] PCLX [facility] [place] [address] [employer] POC [address] (ABNORMAL) CBC without Differential (11/29/2020 3:46 AM CDT) [facility] gist Method Time Signature Hemoglobin 11.5 (L) 13.2 - 11/29/2020 DTL 16.6 g/dL 4:31 AM CDT Hematocrit 35.0 (L) 38.3 - 11/29/2020 DTL 48.6 % 4:31 AM CDT Erythrocytes 4.14 (L) 4.35 - 11/29/2020 DTL 5.65 4:31 AM CDT x10(12)/L MCV 84.5 78.2 - 11/29/2020 DTL 97.9 fL 4:31 AM CDT RBC Distrib Width 14.3 11.8 - 11/29/2020 DTL 14.5 % 4:31 AM CDT Platelet Count 246 135 - 317 11/29/2020 DTL x10(9)/L 4:31 AM CDT Leukocytes 15.1 (H) 3.4 - 9.6 11/29/2020 DTL x10(9)/L 4:31 AM CDT Specimen Anatomical Collection Method Collection Time Receive d Time (Source) Location / / Volume Laterality Blood (Blood, 11/29/2020 3:46 AM 11/30/19 4:23 Venous) CDT AM CDT Javier Chen APRN C.N.P., D.N.P. LAB BLOOD ADD-O N Performing Organization Address City/State/ZIP Code Phon e Number [facility] - [address] [place], [place] [address] [facility] [place] [address] Laboratories-[facility] [address] (ABNORMAL) Basic Metabolic Panel (11/29/2020 3:46 AM CDT) P athologist Signature Potassium, S 3.4 (L) 3.6 - 5.2 11/29/2020 DTL mmol/L 5:00 AM CDT Sodium, S 138 135 - 145 11/29/2020 DTL mmol/L 5:00 AM CDT Chloride, S 99 98 - 107 11/29/2020 DTL mmol/L 5:00 AM CDT Bicarbonate, S 26 22 - 29 11/29/2020 DTL mmol/L 5:00 AM CDT Anion Gap 13 7 - 15 11/29/2020 DTL 5:00 AM CDT BUN (Blood Urea 18 8 - 24 11/29/2020 DTL Nitrogen), S mg/dL 5:00 AM CDT Creatinine 0.92 0.74 - 11/29/2020 DTL 1.35 mg/dL 5:00 AM CDT eGFR-Non >90 >=60 11/29/2020 DTL Black/ mL/min/BSA 5:00 AM CDT Angolan Comment: ----ADDITIONAL INFORMATION---- Estimated GFR calculated using the 2009 CKD_EPI creatinine equation. eGFR-Black/ >90 >=60 mL/min/BSA 2020 5:00 AM CDT DTL Comment: ----ADDITIONAL INFORMATION---- Estimated GFR calculated using the 2009 CKD_EPI creatinine equation. Calcium, Total, S 8.7 8.6 - 10.0 mg/dL 11/29/2020 5:00 AM CDT DTL Glucose, S 202 (H) 70 - 140 mg/dL 11/29/2020 5:00 AM CDT D TL Specimen Anatomical Collection Method Collection Time Receive d Time (Source) Location / / Volume Laterality Blood (Blood, 11/29/2020 3:46 AM 11/30/19 4:22 Venous) CDT AM CDT Colt Marcelo APRN.N.P., D.N.P. LAB BLOOD ADD-O N Performing Organization Address City/[facility] Phon e Number [facility] - [address] [place], [place] [address] [place] [address] Laboratories-[address] Phosphorus Inorganic (11/29/2020 3:46 AM CDT) P athologist Signature Phosphorus 3.0 2.5 - 4.5 11/29/2020 DTL (Inorganic), S mg/dL 5:00 AM CDT Specimen Anatomical Collection Method Collection Time Receive d Time (Source) Location / / Volume Laterality Blood (Blood, 11/29/2020 3:46 AM 11/30/19 4:22 Venous) CDT AM CDT Colt Marcelo APRN.N.P., D.N.P. LAB BLOOD ADD-O N Performing Organization Address City/[facility] Phon e Number [facility] - [address] [place], [place] [address] [place] [id number] Benzodiazepines Confirmation, Urine (11/28/2020 10:35 PM CDT) Patholo gist Method Time Signature Alprazolam by Negative Cutoff: 12/01/2020 [facility] LC-MS/MS 10 ng/mL 3:47 PM CDT Alpha-Hydroxyalprazo Negative Cutoff: 12/01/2020 [facility] juarez by LC-MS/MS 10 ng/mL 3:47 PM CDT Chlordiazepoxide by Negative Cutoff: 12/01/2020 [facility] LC-MS/MS 10 ng/mL 3:47 PM CDT Clonazepam by Negative Cutoff: 12/01/2020 [facility] LC-MS/MS 10 ng/mL 3:47 PM CDT 7-aminoclonazepam by Negative Cutoff: 12/01/2020 SDS LC-MS/MS 10 ng/mL 3:47 PM CDT Diazepam by LC-MS/MS Negative Cutoff: 12/01/2020 SDS 10 ng/mL 3:47 PM CDT Nordiazepam by Negative Cutoff: 12/01/2020 SDS LC-MS/MS 10 ng/mL 3:47 PM CDT Midazolam by 103 Cutoff: 12/01/2020 SDS LC-MS/MS 10 ng/mL 3:47 PM CDT Alpha-Hydroxy 1209 Cutoff: 12/01/2020 SDS Midazolam by 10 ng/mL 3:47 PM CDT LC-MS/MS Oxazepam by LC-MS/MS Negative Cutoff: 12/01/2020 SDS 10 ng/mL 3:47 PM CDT Temazepam by Negative Cutoff: 12/01/2020 [facility] LC-MS/MS 10 ng/mL 3:47 PM CDT Clobazam by LC-MS/MS Negative Cutoff: 12/01/2020 [facility] 10 ng/mL 3:47 PM CDT N-Desmethylclobazam Negative Cutoff: 12/01/2020 [facility] by LC-MS/MS 10 ng/mL 3:47 PM CDT Flunitrazepam by Negative Cutoff: 12/01/2020 [facility] LC-MS/MS 10 ng/mL 3:47 PM CDT 7-aminoflunitrazepam Negative Cutoff: 12/01/2020 [facility] by LC-MS/MS 10 ng/mL 3:47 PM CDT Flurazepam by Negative Cutoff: 12/01/2020 SDS LC-MS/MS 10 ng/mL 3:47 PM CDT 2-Hydroxy Ethyl Negative Cutoff: 12/01/2020 SDS Flurazepam by 10 ng/mL 3:47 PM CDT LC-MS/MS Lorazepam by Negative Cutoff: 12/01/2020 [facility] LC-MS/MS 10 ng/mL 3:47 PM CDT Prazepam by LC-MS/MS Negative Cutoff: 12/01/2020 SDS 10 ng/mL 3:47 PM CDT Triazolam by Negative Cutoff: 12/01/2020 [facility] LC-MS/MS 10 ng/mL 3:47 PM CDT Alpha-Hydroxy Negative Cutoff: 12/01/2020 SDS Triazolam by 10 ng/mL 3:47 PM CDT LC-MS/MS Zolpidem by LC-MS/MS Negative Cutoff: 12/01/2020 [facility] 10 ng/mL 3:47 PM CDT Zolpidem Negative Cutoff: 12/01/2020 [facility] Fedalr-2-Khfzjhbxyh 10 ng/mL 3:47 PM CDT acid by LC-MS/MS Benzodiazepines Positive. 12/01/2020 [facility] Interpretation 3:47 PM CDT Comment: ----ADDITIONAL INFORMATION---- This report is intended for use in clini tio monitoring and management of patients. ??It is not intended for use i n employment-related testing. This test was developed and its performa nce characteristics determined by [facility] in a manner consistent with CLIA requirements. This test has not been cleared or approved by the U.[place] d and Drug Administration. Specimen Anatomical Collection Method Collection Time Receive d Time (Source) Location / / Volume Laterality Urine 11/28/2020 10:35 11/29/2020 PM CDT 12:12 PM CDT Priscilla Delgado APRN C.N.P. LAB URINE ORDERABLES Performing Organization Address City/State/ZIP Code Phon e Number [facility] [address] [place], [place] [address] SUPPORT CENTER [facility] [place] [address] Laboratory Medicine and Pathology [address] [place] (ABNORMAL) Drug Abuse Survey with Confirmation, Panel 9, Urine (11/28/2020 10:35 PM CDT) Component Value Ref Test Analysis Performed At [facility] Range Method Time Signature Alcohol Negative Cutoff: 11/29/2020 [facility] 10 mg/dL 12:12 PM CDT Amphetamines Negative Cutoff: 11/29/2020 [facility] 500 12:12 PM ng/mL CDT Barbiturates Negative Cutoff: 11/29/2020 [facility] 200 12:12 PM ng/mL CDT Benzodiazepines Presumptive Cutoff: 11/29/2020 [facility] Positive (A) 100 12:12 PM ng/mL CDT Comment: Drug confirmation to follow. ??Presumpti ve Positive means that the screening method is positive, but the test needs t o be run by a confirmatory method before being finalized. Cocaine Negative Cutoff: 150 ng/mL 11/29/2020 12:12 PM CD T [facility] Methadone Metabolite Negative Cutoff: 300 ng/mL 11/29/2020 12:12 PM CDT [facility] Opiates Negative Cutoff: 300 ng/mL 11/29/2020 12:12 PM CD T [facility] Phencyclidine Negative Cutoff: 25 ng/mL 11/29/2020 12:12 PM CDT [facility] Tetrahydrocannabinol Negative Cutoff: 50 ng/mL 11/29/2020 1 2:12 PM CDT [facility] Comment: ----ADDITIONAL INFORMATION---- This report is intended for use in clini tio monitoring or management of patients. ??It is not intended for use i n employment-related testing. This test has been modified from the man ufacturer's instructions. Its performance characteristics were determi craig by [facility] in a manner consistent with CLIA requirements. This test has not been cleared or approved by the U.S. Food and Drug Administration . Specimen Anatomical Collection Method Collection Time Receive d Time (Source) Location / / Volume Laterality Urine (Urine, 11/28/2020 10:35 11/29/2020 8:23 Clean Catch) PM CDT AM CDT Priscilla Delgado APRN, C.N.P. LAB URINE ORDERABLES Performing Organization Address City/State/ZIP Code Phon e Number [facility] [address] [place], [place] [address] SUPPORT [facility] [place] [address] Laboratory Medicine and Pathology [address] [place] [address] Dr. [place] Drug Screen, Prescription/OTC, Urine (11/28/2020 10:35 PM CDT) [facility] Method Time Signature Drugs Acetaminophen. Fentanyl. 11/30/2020 [facility] detected: 10:55 AM The following compounds have been detected by GC-MS library match: CDT Norketamine. Propofol. No other drugs detected. ??Quantitative testing may be avail able at an additional charge. ??Specimens are retained for 10 business days. This is a screening assay only and false-positive or false -negative results can occur. If confirmation testing of any drugs found is needed, please call the lab. Specimens are retained in the laborator y for two weeks. This test is not intended for use in compliance monitoring or emplo yment-related testing. Comment: ----ADDITIONAL INFORMATION---- This test was developed and its performa nce characteristics determined by [facility] in a manner consistent with CLIA requirements. This test has not been cleared or approved by the U.[place]. [place] d and Drug Administration. Specimen Anatomical Collection Method Collection Time Receive d Time (Source) Location / / Volume Laterality Urine (Urine, 11/28/2020 10:35 11/29/2020 8:23 Clean Catch) PM CDT AM CDT Priscilla Delgado APRN, C.N.P. LAB URINE ORDERABLES Performing Organization Address City/State/ZIP Code Phon e Number [facility] [address] [place], [place] [address] SUPPORT [facility]ENTER [facility] [address] Laboratory Medicine and Pathology [address] [place] (ABNORMAL) Glucose, POCT (11/28/2020 9:40 PM CDT) Analysis Performed At Patho logist Time Signature Glucose, POCT, 183 (H) 70 - 140 11/28/2020 [facility] B mg/dL 9:42 PM CDT Site ARTLINE 11/28/2020 [facility] 9:42 PM CDT Last Intake 3-4 hours 11/28/2020 [facility] 9:42 PM CDT Specimen Anatomical Collection Method Collection Time Receive d Time (Source) Location / / Volume Laterality Blood 11/28/2020 9:40 PM 9:42 CDT PM CDT Unknown Provider LAB POCT ORDERABLES-MANUAL Performing Organization Address City/State/ZIP Code Phon e Number POC [facility] [address] [place] [address] PCLX [facility] [place] [address] [place] POC [address] Osmolality, Urine (11/28/2020 9:26 PM CDT) P athologist Signature Osmolality, U 571 150 - 1150 11/28/2020 DTL mOsm/kg 11:17 PM CDT Specimen Anatomical Collection Method Collection Time Receive d Time (Source) Location / / Volume Laterality Urine 11/28/2020 9:26 PM 9:51 CDT PM CDT Rachel Cutler APRNN.PLisa LAB URINE ORDERABLES Performing Organization Address City/[facility]/ZIP Code Phon e Number [facility] - [address] pH, Urine (11/28/2020 9:26 PM CDT) P athologist Signature pH, U 5.0 4.5 - 8.0 11/28/2020 11:17 DTL PM CDT Specimen Anatomical Collection Method Collection Time Receive d Time (Source) Location / / Volume Laterality Urine 11/28/2020 9:26 PM 9:51 CDT PM CDT Rachel Cutler APRNN.P. LAB URINE ORDERABLES Performing Organization Address City/[facility] Code Phon e Number [facility] - [id number] [place] [address] (ABNORMAL) Microscopic Automated (11/28/2020 9:26 PM CDT) Patholo gist Method Time Signature Microscopy Abnormal 11/28/2020 DTL 11:00 PM CDT RBC >100 (A) <3 /hpf 11/28/2020 DTL 11:00 PM CDT Dysmorphic RBC <25 <25 % 11/28/2020 DTL 11:00 PM CDT WBC 21-30 (A) /hpf 11/28/2020 DTL 11:00 PM CDT Comment: ----REFERENCE VALUE---- 1-3 ??(Males) 1-10 (Females) Specimen Anatomical Collection Method Collection Time Receive d Time (Source) Location / / Volume Laterality Urine 11/28/2020 9:26 PM 9:51 CDT PM CDT Rachel Cutler APRNN.P. LAB URINE ORDERABLES Performing Organization Address City/[facility]/ZIP Code Phon e Number [facility] - [id number] [place] [address] SW (ABNORMAL) Dipstick, Urine (11/28/2020 9:26 PM CDT) [facility] Method Time Signature Hemoglobin, Large (A) Negative 11/28/2020 DTL QL 11:00 PM CDT Leukocyte Small (A) Negative 11/28/2020 DTL Esterase, U 11:00 PM CDT Nitrite, U Negative Negative 11/28/2020 DTL 11:00 PM CDT Ketones, U Negative Negative 11/28/2020 DTL mg/dL 11:00 PM CDT Glucose, U Negative Negative 11/28/2020 DTL mg/dL 11:00 PM CDT Specimen Anatomical Collection Method Collection Time Receive d Time (Source) Location / / Volume Laterality Urine 11/28/2020 9:26 PM 9:51 CDT PM CDT Priscilla Delgado APRN C.N.P. LAB URINE ORDERABLES Performing Organization Address City/State/ZIP Code Phon e Number [facility] - [address] [place] [address] [facility] [address] Formerly [facility]-[address] (ABNORMAL) Urinalysis with Microscopic: Urine, Midstream (11/28/2020 9:26 PM CDT) [facility] Method Time Signature Source Urine, Urine, 11/28/2020 DTL Midstream 9:51 PM CDT Color, U Yellow 11/28/2020 DTL 9:51 PM CDT Clarity, U Clear 11/28/2020 DTL 9:51 PM CDT Protein, U 28 (H) <26 mg/dL 11/28/2020 DTL 10:39 PM CDT Protein/Osmol 0.49 (H) <0.42 11/28/2020 DTL ality ratio 11:17 PM CDT Predicted 24 477 mg/24 h 11/28/2020 DTL Hr Protein 11:17 PM CDT Predicted 152-1504 mg/24 h 11/28/2020 DTL Range 11:17 PM CDT Specimen Anatomical Collection Method Collection Time Receive d Time (Source) Location / / Volume Laterality Urine (Urine, 11/28/2020 9:26 PM 08/02/20 21 9:51 Midstream) CDT PM CDT Priscilla Delgado APRN, C.N.P. LAB URINE ORDERABLES Performing Organization Address City/[facility]/ZIP Code Phon e Number [facility] - [address] [place], [place] [address] [facility] [place] [address] Laboratories-[facility] [address] [facility] (ABNORMAL) Troponin T, 5th Generation (11/28/2020 7:52 PM CDT) P athologist Signature Troponin T, 109 (H) <=15 ng/L 11/28/[address] [facility] 5th gen 8:16 PM CDT Comment: Consider acute myocardial injur y Specimen Anatomical Collection Method Collection Time Receive d Time (Source) Location / / Volume Laterality Blood (Blood, 11/28/2020 7:52 PM 11/29/19 7:57 Venous) CDT PM CDT Colt Torres APRN.N.P., D.N.P. LAB BLOOD ADD-ON Performing Organization Address City/[facility]/ZIP Code Phon e Number [facility] - [address] [place], [place] [address] [facility] [place] [address] Laboratories-[facility] [address] [facility] (ABNORMAL) Glucose, POCT (11/28/2020 5:07 PM CDT) Analysis Performed At Patho logist Time Signature Glucose, POCT, 211 (H) 70 - 140 11/28/2020 [facility] B mg/dL 5:08 PM CDT Site ARTLINE 11/28/2020 [facility] 5:08 PM CDT Last Intake > 4 hours 11/28/2020 [facility] 5:08 PM CDT Specimen Anatomical Collection Method Collection Time Receive d Time (Source) Location / / Volume Laterality Blood 11/28/2020 5:07 PM 5:09 CDT PM CDT Unknown Provider LAB POCT ORDERABLES-MANUAL Performing Organization Address City/State/ZIP Code Phon e Number POC [facility] [address] [place] [address] PCLX [facility] [place] [address] [place] POC [address] [facility] Glucose, POCT (11/28/2020 1:28 PM CDT) athologist Signature Glucose, POCT, 129 70 - 140 11/28/2020 [facility] B mg/dL 1:30 PM CDT Site ARTLINE 11/28/2020 [facility] 1:30 PM CDT Last Intake NPO 11/28/2020 [facility] 1:30 PM CDT Specimen Anatomical Collection Method Collection Time Receive d Time (Source) Location / / Volume Laterality Blood 11/28/2020 1:28 PM 1:31 CDT PM CDT Unknown Provider LAB POCT ORDERABLES-MANUAL Performing Organization Address City/[facility]/ZIP [facility] Phon e Number POC [facility] [address] [place] [address] [place] [address] [place] POC 200 [facility] Glucose, POCT (11/28/2020 12:46 PM CDT) athologist Signature Glucose, POCT, 111 70 - 140 11/28/2020 [facility] B mg/dL 12:47 PM CDT Site ARTLINE 11/28/2020 [facility] 12:47 PM CDT Last Intake NPO 11/28/2020 [facility] 12:47 PM CDT Specimen Anatomical Collection Method Collection Time Receive d Time (Source) Location / / Volume Laterality Blood 11/28/2020 12:46 11/28/2020 PM CDT 12:48 PM CDT Unknown Provider LAB POCT ORDERABLES-MANUAL Performing Organization Address City/[facility] Phon e Number POC [facility] [address] [place] [address] [place] [address] [place] POC 200 [facility] DX Chest Portable 1 View (11/28/2020 12:22 PM CDT) Anatomical Region Laterality Modality Chest, Thoracic RST LOS, Thoracic ARZ LOS, Thoracic N/A Digital Radiography FLA LOS Specimen (Source) Anatomical Collection Method Collection Time Re ceived Time Location / / Volume Laterality 11/28/2020 12:49 PM CDT Impressions 11/28/2020 12:52 PM CDT Since earlier today, the left chest tube has been advanced. No definite pneumothorax. Otherwise, no sig nificant change. Left apical pigtail drain. ETT tip in the low trachea. Patch y interstitial and airspace opacities, greater on the left. Pulmonary venous co ngestion. Aortic calcifications. Narrative 11/28/2020 12:52 PM CDT EXAM: ??DX CHEST PORTABLE 1 VIEW Procedure Note Rodríguez Multani M.D. - 11/28/2020Forma tting of this note might be different from the original. EXAM: DX CHEST PORTABLE 1 VIEW IMPRESSION: Since earlier today, the left chest tube has been advanced. No definite pneumothorax. Otherwise, no sig nificant change. Left apical pigtail drain. ETT tip in the low trachea. Patch y interstitial and airspace opacities, greater on the left. Pulmonary venous co ngestion. Aortic calcifications. Javier Chne APRN, C.N.P., D.N.P. IMG DIAGNOSTIC IMAGING PROCEDURES Glucose, POCT (11/28/2020 11:30 AM CDT) athologist Signature Glucose, POCT, 98 70 - 140 11/28/2020 [facility] B mg/dL 11:32 AM CDT Site ARTLINE 11/28/2020 [facility] 11:32 AM CDT Last Intake NPO 11/28/2020 P[facility] 11:32 AM CDT Specimen Anatomical Collection Method Collection Time Receive d Time (Source) Location / / Volume Laterality Blood 11/28/2020 11:30 11/28/2020 AM CDT 11:33 AM CDT Unknown Provider LAB POCT ORDERABLES-MANUAL Performing Organization Address City/State/ZIP Code Phon e Number POC [facility] [address] [place] [address] PCLX [facility] [place] [address] [place] POC [address] (ABNORMAL) Basic Metabolic Panel (11/28/2020 11:12 AM CDT) athologist Signature Potassium, S 4.3 3.6 - 5.2 11/28/2020 DTL mmol/L 12:16 PM CDT Sodium, S 144 135 - 145 11/28/2020 DTL mmol/L 12:16 PM CDT Chloride, S 107 98 - 107 11/28/2020 DTL mmol/L 12:16 PM CDT Bicarbonate, S 28 22 - 29 11/28/2020 DTL mmol/L 12:16 PM CDT Anion Gap 9 7 - 15 11/28/2020 DTL 12:16 PM CDT BUN (Blood Urea 22 8 - 24 11/28/2020 DTL Nitrogen), S mg/dL 12:16 PM CDT Creatinine 1.15 0.74 - 11/28/2020 DTL 1.35 mg/dL 12:16 PM CDT eGFR-Non 72 >=60 11/28/2020 DTL Black/ mL/min/BSA 12:16 PM CDT [place] Comment: ----ADDITIONAL INFORMATION---- Estimated GFR calculated using the 2009 CKD_EPI creatinine equation. eGFR-Black/ 83 >=60 mL/min/BSA 2020 12:16 PM CDT DTL Comment: ----ADDITIONAL INFORMATION---- Estimated GFR calculated using the 2009 CKD_EPI creatinine equation. Calcium, Total, S 8.3 (L) 8.6 - 10.0 mg/dL 11/28/2020 12:1 6 PM CDT DTL Glucose, S 96 70 - 140 mg/dL 11/28/2020 12:16 PM CDT DTL Specimen Anatomical Collection Method Collection Time Receive d Time (Source) Location / / Volume Laterality Blood (Blood, 11/28/2020 11:12 11/28/2020 Venous) AM CDT 11:33 AM CDT Aron Seymour APRN, C.N.P. LAB BLOOD ADD-ON Performing Organization Address City/State/ZIP Code Phon e Number [facility] - [address] [place], [place] [address] [facility] [place] [address] Laboratories-[facility] 200 [facility] Patient Status (11/28/2020 11:12 AM CDT) P athologist Signature FIO2 0.40 0.21=AIR 11/28/2020 [facility] 11:17 AM CDT Device Vent 11/28/2020 [facility] 11:17 AM CDT Spont. 20 11/28/2020 [facility] breaths/min 11:17 AM CDT Specimen Anatomical Collection Method Collection Time Receive d Time (Source) Location / / Volume Laterality Blood 11/28/2020 11:12 11/28/2020 AM CDT 11:17 AM CDT Javier Chen APRN, C.N.P., D.N.P. LAB BLOOD NON A DD-ON Performing Organization Address City/[facility] Code Phon e Number [facility] - [address] [place], [place] [address] [place] [address] Laboratories-[address] (ABNORMAL) Blood Gas without Coox, Arterial (11/28/2020 11:12 AM CDT) P athologist Signature pO2 113 (H) 83 - 108 11/28/2020 [facility] mm Hg 11:22 AM CDT pCO2 50 (H) 35 - 48 mm 11/28/2020 [facility] Hg 11:22 AM CDT pH 7.36 7.35 - 11/28/2020 [facility] 7.45 pH 11:22 AM CDT Base Excess 3 -2 - 3 11/28/2020 [facility] mmol/L 11:22 AM CDT HCO3 28 (H) 22 - 26 11/28/2020 [facility] mmol/L 11:22 AM CDT Arterial Art Line 11/28/2020 [facility] Sample Site 11:22 AM CDT Comment: Herrera's test not done. Specimen Anatomical Collection Method Collection Time Receive d Time (Source) Location / / Volume Laterality Blood (Blood, 11/28/2020 11:12 11/28/2020 Arterial) AM CDT 11:17 AM CDT Rachel Marcelo APRNN.PLisa, D.N.P. LAB BLOOD NON A DD-ON Performing Organization Address City/State/ZIP Code Phon e Number [facility] - [address] [place], [place] [address] [place] [address] Laboratories-[address] MO INS TUBE THORACOSTOMY (11/28/2020 10:51 AM CDT) Narrative Preethi Grimaldo M.D. - 11/28/2020 10:51 AM CDT Noreen Farrell M.B.B.S. ? 11/28/2020 10:53 AM Pleural Drains Date/Time: 11/28/2020 10:51 AM Performed by: Noreen Farrell M.B.B.S. Authorized by: Noreen Farrell M.B.B.S. Care team members present 1. Noreen Farrell M.B.B.S. 2. Preethi Grimaldo M.D. 3. Nacho Torres M.D. PROCEDURE DETAILS Placement location: left anterior axilla ry Intercostal space: 5th Tube type: chest tube Insertion of wire with dilators: no Tube size (Fr): 28 Tube characteristics: straight Tube connected to drainage device at: -2 0 suction Drainage characteristics: bloody Ultrasound image guidance used to locali ze target, identify at risk structures, and dynamically used to dire ct therapy to the target. Image(s) not saved. CONSENT Consent obtained: written [employer] All relevant documentation and testing w ere reviewed and available. All required blood products, implants, devic es and or special equipment were made available as applicable. Pre-proced ure verification was conducted and the correct site was marked if required. A fire risk assessment was done as applicable. The procedural time-out w as conducted prior to performing the procedure and confirmed in a procedu ral pause. PRE-PROCEDURE DETAILS Indications: pneumothorax Appropriate hand hygiene, gown, cap, mas k, protective eyewear, sterile gloves, skin preparation, sterile drape, and strict aseptic technique were utilized as applicable for the procedure . Site preparation: chlorhexidine SEDATION / ANESTHESIA Anesthesia method: already under sedatio n POST-PROCEDURE DETAILS Post-insertion x-ray performed: yes X-ray findings: tube in good position Procedure successful: yes Complications: no apparent complications Noreen Arellano PROCEDURE/MINOR SURGICAL ORD ERABLES Glucose, POCT (11/28/2020 10:42 AM CDT) P athologist Signature Glucose, POCT, 105 70 - 140 11/28/2020 PCLX B mg/dL 10:44 AM CDT Site ARTLINE 11/28/2020 PCLX 10:44 AM CDT Last Intake NPO 11/28/2020 PCLX 10:44 AM CDT Specimen Anatomical Collection Method Collection Time Receive d Time (Source) Location / / Volume Laterality Blood 11/28/2020 10:42 11/28/2020 AM CDT 10:44 AM CDT Unknown Provider LAB POCT ORDERABLES-MANUAL Performing Organization Address City/State/ZIP Code Phon e Number POC [facility] [address] [place] [address] PCLX [facility] [place] [address] [place] POC [address] DX Chest Portable 1 View (11/28/2020 10:36 AM CDT) Anatomical Region Laterality Modality Chest, Thoracic RST LOS, Thoracic ARZ LOS, Thoracic N/A Digital Radiography FLA LOS Specimen (Source) Anatomical Collection Method Collection Time Re ceived Time Location / / Volume Laterality 11/28/2020 10:39 AM CDT Impressions 11/28/2020 10:41 AM CDT Comparison was made with the 11/28/2020 chest radiograph. There is a new left chest tube with side-port close to the lateral chest wall, slight advancement may be considered. Shallower inspiration with accentuation of the cardiovascular structures. There is like ly superimposed mild to moderate vascular congestion which is similar. Ot herwise similar exam with drainage catheter projecting over the left upper chest, ET tube tip at the level of the aortic arch, satisfactory. Narrative 11/28/2020 10:41 AM CDT EXAM: ??DX CHEST PORTABLE 1 VIEW Procedure Note Shaka Waters M.D. - 11/28/2020Formattin g of this note might be different from the original. EXAM: DX CHEST PORTABLE 1 VIEW IMPRESSION: Comparison was made with the 11/28/2020 ch est radiograph. There is a new left chest tube with side-port close to the lateral chest wall, slight advancement may be considered. Shallower inspiration with accentuation of the cardiovascular structures. There is like ly superimposed mild to moderate vascular congestion which is similar. Ot herwise similar exam with drainage catheter projecting over the left upper chest, ET tube tip at the level of the aortic arch, satisfactory. Kelsi MÉNDEZ DIAGNOSTIC IMAGING PROCE DURES (ABNORMAL) Glucose, POCT (11/28/2020 9:17 AM CDT) P athologist Signature Glucose, POCT, 228 (H) 70 - 140 11/28/2020 PCLX B mg/dL 9:19 AM CDT Specimen Anatomical Collection Method Collection Time Receive d Time (Source) Location / / Volume Laterality Blood 11/28/2020 9:17 AM 9:19 CDT AM CDT Unknown Provider LAB POCT ORDERABLES-MANUAL Performing Organization Address City/[facility]/ZIP Code Phon e Number POC [facility] [address] [place] [address] [place] [address] [place] POC [address] (ABNORMAL) Glucose, POCT (11/28/2020 8:30 AM CDT) P athologist Signature Glucose, POCT, 324 (H) 70 - 140 11/28/2020 PCLX B mg/dL 8:33 AM CDT Site ARTLINE 11/28/2020 PCLX 8:33 AM CDT Last Intake NPO 11/28/2020 PCLX 8:33 AM CDT Specimen Anatomical Collection Method Collection Time Receive d Time (Source) Location / / Volume Laterality Blood 11/28/2020 8:30 AM 8:33 CDT AM CDT Unknown Provider LAB POCT ORDERABLES-MANUAL Performing Organization Address City/[facility] Phon e Number POC [facility] [address] [place] [address] [place] [address] [place] POC [address] (ABNORMAL) Glucose, POCT (11/28/2020 7:26 AM CDT) athologist Signature Glucose, POCT, 380 (H) 70 - 140 11/28/2020 PCLX B mg/dL 7:32 AM CDT Specimen Anatomical Collection Method Collection Time Receive d Time (Source) Location / / Volume Laterality Blood 11/28/2020 7:26 AM 7:32 CDT AM CDT Unknown Provider LAB POCT ORDERABLES-MANUAL Performing Organization Address City/[facility]/ZIP [facility] Phon e Number POC [facility] [address] [place] [address] [place] [address] [place] POC [address] DX Chest Portable 1 View (11/28/2020 7:07 AM CDT) Anatomical Region Laterality Modality Chest, Thoracic RST LOS, Thoracic ARZ LOS, Thoracic N/A Digital Radiography FLA LOS Specimen (Source) Anatomical Collection Method Collection Time Re ceived Time Location / / Volume Laterality 11/28/2020 7:17 AM CDT Impressions 11/28/2020 7:20 AM CDT No significant change since earlier today. Again noted is a pigtail catheter projecting over the left upper lung. Interval chest CT shows that this catheter is intraparenchymal. Small amou nt of surrounding opacity has not significantly changed consistent with ad jacent hemorrhage. The moderate anterior left pneumothorax is not well demonstrat ed on this exam. Diffuse bilateral interstitial edema. Patchy focal areas o f consolidation in the left mid and lower lung. ETT. Narrative 11/28/2020 7:20 AM CDT EXAM: ??DX CHEST PORTABLE 1 VIEW Procedure Note Leona Voss M.D. - 11/28/2020Form atting of this note might be different from the original. EXAM: DX CHEST PORTABLE 1 VIEW IMPRESSION: No significant change since earlier toda y. Again noted is a pigtail catheter projecting over the left upper lung. Interval chest CT shows that this catheter is intraparenchymal. Small amou nt of surrounding opacity has not significantly changed consistent with ad jacent hemorrhage. The moderate anterior left pneumothorax is not well demonstrat ed on this exam. Diffuse bilateral interstitial edema. Patchy focal areas o f consolidation in the left mid and lower lung. ETT. Sheridan Good APRN, C.N.P. IMG DIAGNOSTIC IMAGING P ROCEDURES Critical Care (11/28/2020 6:37 AM CDT) Narrative Krystian Cason M.D. - 11/28/2020 6:3 7 AM CDT Krystian Cason M.D. ? 11/28/2020 ??6:37 AM Critical Care Performed by: Krystian Cason M.D. Authorized by: Krystian Cason M.D. Critical care provider statement: Critical care total time (minutes): 60 Critical care time was exclusive of: sep arately billable procedures and treating other patients and teaching juliana e Critical care was necessary to treat or prevent imminent or life-threatening deterioration of the fo llowing conditions: respiratory failure Critical care was time spent personally by me on the following activities: Development of treatment plan with patie nt or surrogate, discussions with consultants, evaluation of patient's res ponse to treatment, examination of patient, obtaining history from patient or surrogate, ordering and review of laboratory studies, ordering and revi ew of radiographic studies, re-evaluation of patient's condition, re view of old charts and pulse oximetry Krystian Cason M.D. PROCEDURE/MINOR SURGICAL ORD ERABLES (ABNORMAL) Hemoglobin A1c (11/28/2020 6:30 AM CDT) Analysis Performed At Patho logist Time Signature Hemoglobin A1c, 10.3 (H) 4.0 - 5.6 11/28/2020 DTL B % 10:59 AM CDT Comment: Hemoglobin A1c values greater than or eq ual to 6.5 percent are diagnostic for diabetes mellitus. ?? Diagnosis should be confirmed by repeat testing. ??In diabet ic patients, HbA1c goals should be discussed with healthcar e provider. Specimen Anatomical Collection Method Collection Time Receive d Time (Source) Location / / Volume Laterality Blood 11/28/2020 6:30 AM 9:57 CDT AM CDT Aron Seymour APRN, C.N.P. LAB BLOOD ADD-ON Performing Organization Address City/[facility]/ZIP Code Phon e Number [facility] - [address] [place] [address] [facility] [address] [facility] Patient Status (11/28/2020 6:23 AM CDT) P athologist Signature FIO2 0.50 0.21=AIR 11/28/2020 6:27 STMA AM CDT Device Vent 11/28/2020 6:27 STMA AM CDT Specimen Anatomical Collection Method Collection Time Receive d Time (Source) Location / / Volume Laterality Blood 11/28/2020 6:23 AM 6:27 CDT AM CDT Sheridan Good APRN, C.N.P. LAB BLOOD NON ADD-ON Performing Organization Address City/State/ZIP Code Phon e Number [facility] - [address] [place] [facility] [place] [address] Calcium, Ionized (11/28/2020 6:23 AM CDT) athologist Signature Calcium, 4.69 4.65 - 5.30 11/28/2020 [facility] Ion[facility], B mg/dL 6:30 AM CDT Specimen Anatomical Collection Method Collection Time Receive d Time (Source) Location / / Volume Laterality Blood (Blood, 11/28/2020 6:23 AM 11/29/19 6:27 Venous) CDT AM CDT Sheridan Good APRN, C.N.P. LAB BLOOD NON ADD-ON Performing Organization Address City/[facility] Code Phon e Number [facility] - [address] [place] [address] (ABNORMAL) Blood Gas without Coox, Arterial (11/28/2020 6:23 AM CDT) athologist Signature pO2 97 83 - 108 11/28/2020 STMA mm Hg 6:30 AM CDT pCO2 68 (H) 35 - 48 mm 11/28/2020 STMA Hg 6:30 AM CDT pH 7.21 (L) 7.35 - 11/28/2020 STMA 7.45 pH 6:30 AM CDT Base Excess -1 -2 - 3 11/28/2020 STMA mmol/L 6:30 AM CDT HCO3 26 22 - 26 11/28/2020 [facility] mmol/L 6:30 AM CDT Arterial Art Line 11/28/2020 [facility] Sample [facility] 6:30 AM CDT Comment: Herrera's test not done. Specimen Anatomical Collection Method Collection Time Receive d Time (Source) Location / / Volume Laterality Blood (Blood, 11/28/2020 6:23 AM 11/29/19 6:27 Arterial) CDT AM CDT Sheridan Good APRN, C.N.P. LAB BLOOD NON ADD-ON Performing Organization Address City/State/ZIP Code Phon e Number [facility] - [address] [place] [id number] [place] [address] (ABNORMAL) CBC with Differential, Blood (11/28/2020 6:22 AM CDT) [facility] Method Time Signature Hemoglobin 13.8 13.2 - 11/28/2020 DHPM 16.6 g/dL 6:24 AM CDT Hematocrit 43.5 38.3 - 11/28/2020 DHPM 48.6 % 6:24 AM CDT Erythrocytes 4.91 4.35 - 11/28/2020 DHPM 5.65 6:24 AM CDT x10(12)/L MCV 88.6 78.2 - 11/28/2020 DHPM 97.9 fL 6:24 AM CDT RBC Distrib Width 14.1 11.8 - 11/28/2020 DHPM 14.5 % 6:24 AM CDT Platelet Count 356 (H) 135 - 317 11/28/2020 DHPM x10(9)/L 6:24 AM CDT Leukocytes 17.6 (H) 3.4 - 9.6 11/28/2020 DHPM x10(9)/L 6:24 AM CDT Neutrophils 13.53 (H) 1.56 - 11/28/2020 DHPM 6.45 6:24 AM CDT x10(9)/L Lymphocytes 2.97 0.95 - 11/28/2020 DHPM 3.07 6:24 AM CDT x10(9)/L Monocytes 0.44 0.26 - 11/28/2020 DHPM 0.81 6:24 AM CDT x10(9)/L Eosinophils 0.49 (H) 0.03 - 11/28/2020 DHPM 0.48 6:24 AM CDT x10(9)/L Basophils 0.21 (H) 0.01 - 11/28/2020 DHPM 0.08 6:24 AM CDT x10(9)/L Specimen Anatomical Collection Method Collection Time Receive d Time (Source) Location / / Volume Laterality Blood 11/28/2020 6:22 AM 6:22 CDT AM CDT Amy Arellano LAB BLOOD ADD-ON Performing Organization Address City/State/ZIP Code Phon e Number [facility] - [address] [place], [place] [address] [place] [address] [facility] 200 [facility] (ABNORMAL) CBC with Differential, Blood (11/28/2020 6:22 AM CDT) [facility] Method Time Signature Hemoglobin 12.4 (L) 13.2 - 11/28/2020 STMA 16.6 g/dL 6:38 AM CDT Hematocrit 39.2 38.3 - 11/28/2020 STMA 48.6 % 6:38 AM CDT Erythrocytes 4.45 4.35 - 11/28/2020 STMA 5.65 6:38 AM CDT x10(12)/L MCV 88.1 78.2 - 11/28/2020 STMA 97.9 fL 6:38 AM CDT RBC Distrib Width 14.1 11.8 - 11/28/2020 STMA 14.5 % 6:38 AM CDT Platelet Count 278 135 - 317 11/28/2020 STMA x10(9)/L 6:38 AM CDT Leukocytes 21.2 (H) 3.4 - 9.6 11/28/2020 STMA x10(9)/L 6:38 AM CDT Neutrophils 18.60 (H) 1.56 - 11/28/2020 STMA 6.45 6:38 AM CDT x10(9)/L Lymphocytes 1.19 0.95 - 11/28/2020 STMA 3.07 6:38 AM CDT x10(9)/L Monocytes 1.32 (H) 0.26 - 11/28/2020 STMA 0.81 6:38 AM CDT x10(9)/L Eosinophils 0.03 0.03 - 11/28/2020 STMA 0.48 6:38 AM CDT x10(9)/L Basophils 0.08 0.01 - 11/28/2020 STMA 0.08 6:38 AM CDT x10(9)/L Specimen Anatomical Collection Method Collection Time Receive d Time (Source) Location / / Volume Laterality Blood (Blood, 11/28/2020 6:22 AM 11/29/19 6:30 Venous) CDT AM CDT Sheridan K Schuder [employer], C.N.P. LAB BLOOD ADD-ON Performing Organization Address City/[facility] Phon e Number [facility] - [address] [place], [place] [address] [facility] [place] [address] [facility] [address] [facility] (ABNORMAL) Hepatic Function Panel (11/28/2020 6:22 AM CDT) Patholo gist Method Time Signature Bilirubin, Total, S 0.3 <=1.2 11/28/2020 DTL mg/dL 7:24 AM CDT Bilirubin, Direct, S <0.2 0.0 - 0.3 11/28/2020 DTL mg/dL 7:24 AM CDT Aspartate 67 (H) 8 - 48 11/28/2020 DTL Aminotransferase U/L 7:24 AM CDT (AST), S Alanine 66 (H) 7 - 55 11/28/2020 DTL Aminotransferase U/L 7:24 AM CDT (ALT), S Alkaline 127 40 - 129 11/28/2020 DTL Phosphatase, S U/L 7:24 AM CDT Albumin, S 3.7 3.5 - 5.0 11/28/2020 DTL g/dL 7:24 AM CDT Protein, Total, S 6.0 (L) 6.3 - 7.9 11/28/2020 DTL g/dL 7:24 AM CDT Specimen Anatomical Collection Method Collection Time Receive d Time (Source) Location / / Volume Laterality Blood (Blood, 11/28/2020 6:22 AM 11/29/19 7:07 Venous) CDT AM CDT Sheridan Good APRN, C.N.P. LAB BLOOD ADD-ON Performing Organization Address City/State/[facility] Code Phon e Number [facility] - [address] [place], [place] [address] [facility] [place] [address] [facility] [address] [facility] Lactate (11/28/2020 6:22 AM CDT) P athologist Signature Lactate, P 1.5 0.5 - 2.2 11/28/2020 STMA mmol/L 6:44 AM CDT Specimen Anatomical Collection Method Collection Time Receive d Time (Source) Location / / Volume Laterality Blood (Blood, 11/28/2020 6:22 AM 11/29/19 6:28 Venous) CDT AM CDT Sheridan Good APRN, C.N.P. LAB BLOOD NON ADD-ON Performing Organization Address City/State/ZIP Code Phon e Number [facility] - [address] [place], [place] [address] [facility] [place] [address] [facility] [address] [facility] (ABNORMAL) Phosphorus Inorganic (11/28/2020 6:22 AM CDT) P athologist Signature Phosphorus 5.4 (H) 2.5 - 4.5 11/28/2020 DTL (Inorganic), S mg/dL 7:24 AM CDT Specimen Anatomical Collection Method Collection Time Receive d Time (Source) Location / / Volume Laterality Blood (Blood, 11/28/2020 6:22 AM 11/29/19 7:07 Venous) CDT AM CDT Sheridan Good APRN, C.N.P. LAB BLOOD ADD-ON Performing Organization Address City/[facility]/ZIP Code Phon e Number [facility] - [address] [place], [place] [address] [place] [address] [place], [place] [id number] [place] [address] [address] [facility] Magnesium (11/28/2020 6:22 AM CDT) P athologist Signature Magnesium, S 2.1 1.7 - 2.3 11/28/2020 DTL mg/dL 7:24 AM CDT Specimen Anatomical Collection Method Collection Time Receive d Time (Source) Location / / Volume Laterality Blood (Blood, 11/28/2020 6:22 AM 11/29/19 7:07 Venous) CDT AM CDT Sheridan Good APRN, C.N.P. LAB BLOOD ADD-ON Performing Organization Address City/State/ZIP Code Phon e Number [facility] - [address] [place], [place] [address] [facility] [place] [address] (ABNORMAL) Basic Metabolic Panel (11/28/2020 6:22 AM CDT) P athologist Signature Potassium, P 5.2 3.6 - 5.2 11/28/2020 STMA mmol/L 6:47 AM CDT Sodium, P 141 135 - 145 11/28/2020 STMA mmol/L 6:47 AM CDT Chloride, P 108 (H) 98 - 107 11/28/2020 STMA mmol/L 6:47 AM CDT Bicarbonate, P 27 22 - 29 11/28/2020 STMA mmol/L 6:47 AM CDT Anion Gap, P 6 (L) 7 - 15 11/28/2020 STMA 6:47 AM CDT BUN (Blood Urea 21 8 - 24 11/28/2020 STMA Nitrogen), P mg/dL 6:47 AM CDT Creatinine 1.08 0.74 - 11/28/2020 STMA 1.35 mg/dL 6:47 AM CDT eGFR-Black/Afri 89 >=60 11/28/2020 STMA can Angolan mL/min/BSA 6:47 AM CDT Comment: ----ADDITIONAL INFORMATION---- Estimated GFR calculated using the 2009 CKD_EPI creatinine equation. eGFR Non-Black/ 77 >=60 mL/min/BSA 6:47 AM CDT [facility] Comment: ----ADDITIONAL INFORMATION---- Estimated GFR calculated using the 2009 CKD_EPI creatinine equation. Calcium, Total, P 8.0 (L) 8.6 - 10.0 mg/dL 11/28/2020 6:47 AM CDT STMA Glucose, P 373 (H) 70 - 140 mg/dL 11/28/2020 6:47 AM CDT S TMA Specimen Anatomical Collection Method Collection Time Receive d Time (Source) Location / / Volume Laterality Blood (Blood, 11/28/2020 6:22 AM 11/29/19 6:29 Venous) CDT AM CDT Sheridan Good APRN C.N.P. LAB BLOOD ADD-ON Performing Organization Address City/State/ZIP Code Phon e Number [facility] - [address] [place], [place] [address] [facility] [place] [address] Laboratories[facility] [address] (ABNORMAL) Glucose, POCT (11/28/2020 6:21 AM CDT) athologist Signature Glucose, POCT, 355 (H) 70 - 140 11/28/2020 PCLX B mg/dL 7:02 AM CDT Specimen Anatomical Collection Method Collection Time Receive d Time (Source) Location / / Volume Laterality Blood 11/28/2020 6:21 AM 7:02 CDT AM CDT Unknown Provider LAB POCT ORDERABLES-MANUAL Performing Organization Address City/State/ZIP Code Phon e Number POC [facility] [address] [place] [address] PCLX [facility] [place] [address] [place] POC [address] [facility] Beta-Hydroxybutyrate (11/28/2020 6:17 AM CDT) athologist Signature Beta-Hydroxybut <0.1 <0.4 mmol/L 11/28/2020 DT yrate, S 11:19 AM CDT Specimen Anatomical Collection Method Collection Time Receive d Time (Source) Location / / Volume Laterality Blood (Blood, 11/28/2020 6:17 AM 11/29/19 Venous) CDT 10:02 AM CDT Aron Seymour APRN, C.N.P. LAB BLOOD ADD-ON Performing Organization Address City/[facility] Code Phon e Number [facility] - [address] [place], [place] [address] [place] [address] [facility] [address] [facility] CT Chest without IV Contrast (11/28/2020 5:53 AM CDT) Anatomical Region Laterality Modality Chest, Thoracic RST LOS, Thoracic ARZ N/A Co mputed Tomography, Computed LOS, Thoracic FLA LOS Tomography Specimen (Source) Anatomical Collection Method Collection Time Re ceived Time Location / / Volume Laterality 11/28/2020 6:09 AM CDT Impressions 11/28/2020 7:10 AM CDT 1. ??Left pneumothorax. 2. ??Pigtail tube with intraparenchymal course and tip in the left upper lung. Repositioning recommended. Narrative 11/28/2020 7:10 AM CDT EXAM: CT CHEST WITHOUT IV CONTRAST COMPARISON: Chest radiograph 11/28/2020. FINDINGS: Moderate left anterior pneumothorax. Pig tail tube courses within the lung parenchyma with tip in the left upper lo be, with surrounding opacity which may represent hemorrhage. Additional focal a reas of consolidation in the left perihilar region were present on chest x -ray performed prior to placement of the chest tube suggesting this is not relate d to hemorrhage from intraparenchymal placement of the chest tube. Differentia l includes infection versus alveolar edema. Parenchymal hemorrhage remains wi thin the differential however is thought to be less. Small bilateral pleural effu sions with adjacent atelectasis. Diffuse interlobular septal thickening suggestiv e of pulmonary edema. Bronchial thickening. Normal cardiac size. ET tube with tip in the mid trachea. Coronary stent. No displaced rib fractures. Procedure Note Leona Voss M.D. - 11/28/2020Form atting of this note might be different from the original. EXAM: CT CHEST WITHOUT IV CONTRAST COMPARISON: Chest radiograph 11/28/2020. FINDINGS: Moderate left anterior pneumothorax. Pig tail tube courses within the lung parenchyma with tip in the left upper lo be, with surrounding opacity which may represent hemorrhage. Additional focal a reas of consolidation in the left perihilar region were present on chest x -ray performed prior to placement of the chest tube suggesting this is not relate d to hemorrhage from intraparenchymal placement of the chest tube. Differentia l includes infection versus alveolar edema. Parenchymal hemorrhage remains wi thin the differential however is thought to be less. Small bilateral pleural effu sions with adjacent atelectasis. Diffuse interlobular septal thickening suggestiv e of pulmonary edema. Bronchial thickening. Normal cardiac size. ET tube with tip in the mid trachea. Coronary stent. No displaced rib fractures. IMPRESSION: 1. Left pneumothorax. 2. Pigtail tube with intraparenchymal co urse and tip in the left upper lung. Repositioning recommended. Krystian MÉNDEZ CT PROCEDURES Place arterial catheter No upper extremity site restrictions (11/28/2020 5:45 AM CDT) Luis Gilliam R.RRegine., L.R.T. - 11/28 5:45 AM CDT Luis Santoro R.R.T., L.R.T. ? 11/28/2020 ??5:[address] arterial catheter No upper extremi ty site restrictions Date/Time: 11/28/2020 5:45 AM Performed by: Luis Santoro R.RMichele, L.R.TLisa Authorized by: Hubert Smith M.D. Care team members present 1. Trinidad Momin R.RMichele, L.R.T. 3. Luis Santoro R.R.T., L.R.T. 5. Krystian Cason M.D. Location: ED PROCEDURE DETAILS: Line type: arterial ?? Laterality: right Location: radial Location details: new site ? Age group: adult Catheter diameter: 20 Ga Technique: ultrasound guided ?? Monitored: yes ?? Number of attempts: 1 CONSENT Consent obtained: written PRE-PROCEDURE DETAILS: Indication(s): hemodynamic monitoring Appropriate hand hygiene, gown, cap, mas k, protective eyewear, sterile gloves, skin preparation, sterile drape, and strict aseptic technique were utilized as applicable for the procedure .: yes ?? Skin preparation: chlorhexidine ?? SEDATION / ANESTHESIA Anesthesia method: none POST-PROCEDURE DETAILS: Procedure completed successfully: yes ?? Line secured: secured with sutureless de vice Complications - arterial: none Patient tolerance of procedure: successf ul Hubert Smith M.D. IV THERAPY ORDERABLES (ABNORMAL) Venous Blood Gas and Electrolytes CG8+, POCT (11/28/2020 5:36 AM CDT) athologist Signature Sample Site, [facility] 11/28/2020 PCSM POCT 7:00 AM CDT Comment: ----ADDITIONAL INFORMATION---- Performed at the Point of Care pH, Venous, POCT, B 7.19 (L) 7.32 - 7.43 11/28/2020 7:00 AM CDT PCSM Comment: ----ADDITIONAL INFORMATION---- Performed at the Point of Care pCO2, Venous, POCT, B 78 (H) 41 - 51 mm Hg 11/28/2020 7:0 0 AM CDT PCSM Comment: ----ADDITIONAL INFORMATION---- Performed at the Point of Care pO2, Venous, POCT, B 88 Not Applicable mm Hg 11/29/19 21 7:00 AM CDT PCSM Comment: ----ADDITIONAL INFORMATION---- Performed at the Point of Care Base Excess, Venous, POCT, B 1 Not Applicable mmol/L 11/28/2020 7:00 AM CDT PCSM Comment: ----ADDITIONAL INFORMATION---- Performed at the Point of Care HCO3, Venous, POCT, B 29 Not Applicable mmol/L 2020 7:00 AM CDT PCSM Comment: ----ADDITIONAL INFORMATION---- Performed at the Point of Care Sodium, POCT, B 139 135 - 145 mmol/L 11/28/2020 7:00 A M CDT PCSM Comment: ----ADDITIONAL INFORMATION---- Performed at the Point of Care Potassium, POCT, B 5.4 (H) 3.6 - 5.2 mmol/L 11/28/2020 7:0 0 AM CDT PCSM Comment: ----ADDITIONAL INFORMATION---- Performed at the Point of Care Calcium, Ionized, POCT, B 4.90 4.65 - 5.30 mg/dL 2020 7:00 AM CDT PCSM Comment: ----ADDITIONAL INFORMATION---- Performed at the Point of Care Glucose, POCT, B 454 (H) 70 - 140 mg/dL 11/28/2020 7:00 AM CDT PCSM Comment: ----ADDITIONAL INFORMATION---- Performed at the Point of Care Hematocrit, POCT, B 38.0 (L) 38.3 - 48.6 % 11/28/2020 7:00 AM CDT PCSM Comment: ----ADDITIONAL INFORMATION---- Performed at the Point of Care Specimen Anatomical Collection Method Collection Time Receive d Time (Source) Location / / Volume Laterality Blood 11/28/2020 5:36 AM 7:00 CDT AM CDT Unknown Provider LAB POCT ORDERABLES - DEVICE Performing Organization Address City/State/ZIP Code Phon e Number POC [facility] INPATIENT [address] [place], [place] [address] LABS PCSM [facility] [place] [address] [place] POC [address] Arterial Blood Gas and Electrolytes, POCT (11/28/2020 5:36 AM CDT) Analysis Performed At Patho logist Time Signature ABG and Lytes, Collected DEFAULT 11/28/2020 SMLX POCT, B 5:36 AM CDT Specimen Anatomical Collection Method Collection Time Receive d Time (Source) Location / / Volume Laterality Blood (Other, 11/28/2020 5:36 AM 11/29/19 5:36 Specify in CDT AM CDT Comments) Hubert Smith M.D. LAB POCT ORDERABLES - DEVICE Performing Organization Address City/State/ZIP Code Phon e Number [facility] - [facility] [address] [place], [place] [address] [facility] [place] [address] Laboratories-[facility] [address] [facility] (ABNORMAL) Troponin T, 2H/6H, 5th Gen (11/28/2020 5:36 AM CDT) P athologist Signature Troponin T, 2 140 (H) <=15 ng/L 11/28/2020 [facility] hr, 5th gen 6:13 AM CDT Comment: Consider acute myocardial injur y 2H Delta 80 ng/L 11/28/2020 6:13 AM CDT [facility] 2H Delta Interp Changing 11/28/2020 6:13 AM CDT S TMA Comment: Evaluate for acute myocardial i njury Troponin T, 6 hr, 5th gen 190 (H) <=15 ng/L 11/28/2020 11: 38 AM CDT [facility] Comment: Consider acute myocardial injur y 6H Delta 130 ng/L 11/28/2020 11:38 AM CDT [facility] 6H Delta Interp Changing 11/28/2020 11:38 AM CDT [facility] Comment: Evaluate for acute myocardial i njury Specimen Anatomical Collection Method Collection Time Receive d Time (Source) Location / / Volume Laterality Blood (Blood, 11/28/2020 5:36 AM 11/29/19 5:43 Venous) CDT AM CDT Narrative [facility] - [facility] - 11/28/2020 11:38 AM CDT Specimen Information: Specimen ID: [id number] Specimen Type: Blood Specimen Collection Start Date: ??5:36 AM Specimen Received Date: 11/28/2020 ??5:43 AM Specimen ID: [id number] Specimen Type: Blood Specimen Collection Start Date: 11:12 AM Specimen Received Date: 11/28/2020 11:17 AM Hubert Smith M.D. LAB BLOOD TROPONIN Performing Organization Address City/State/ZIP Code Phon e Number [facility] - [address] [place], [place] [address] [facility] [place] [address] [facility] [address] (ABNORMAL) Glucose, POCT (11/28/2020 5:33 AM CDT) P athologist Signature Glucose, POCT, 409 (H) 70 - 140 11/28/2020 PCLX B mg/dL 5:35 AM CDT Site ARTLINE 11/28/2020 PCLX 5:35 AM CDT Specimen Anatomical Collection Method Collection Time Receive d Time (Source) Location / / Volume Laterality Blood 11/28/2020 5:33 AM 5:35 CDT AM CDT Unknown Provider LAB POCT ORDERABLES-MANUAL Performing Organization Address City/[facility]/ZIP Code Phon e Number [facility] LAB SERVICES [address] [place] [address] [place] [address] [place] POC [address] Glucose, POCT (11/28/2020 5:29 AM CDT) Analysis Performed At Patho logist Time Signature Glucose, POCT, Collected DEFAULT 11/28/2020 SMLX B 5:29 AM CDT Specimen Anatomical Collection Method Collection Time Receive d Time (Source) Location / / Volume Laterality Blood (Blood, 11/28/2020 5:29 AM 11/29/19 5:29 Capillary) CDT AM CDT Hubert Smith M.D. LAB POCT ORDERABLES-MANUAL Performing Organization Address City/State/ZIP Code Phon e Number [facility] - [address] [place], [place] [address] [facility] [place] [address] [facility] [address] Glucose, POCT (11/28/2020 5:29 AM CDT) Analysis Performed At Patho logist Time Signature Glucose, POCT, Collected DEFAULT 11/28/2020 SMLX B 5:29 AM CDT Specimen Anatomical Collection Method Collection Time Receive d Time (Source) Location / / Volume Laterality Blood (Blood, 11/28/2020 5:29 AM 11/29/19 5:29 Capillary) CDT AM CDT Hubert Smith M.D. LAB POCT ORDERABLES-MANUAL Performing Organization Address City/[facility] Phon e Number [facility] - [address] [place], [place] [address] [facility] [place] [address] Laboratories-[address] Glucose, POCT (11/28/2020 5:29 AM CDT) Analysis Performed At Patho logist Time Signature Glucose, POCT, Collected DEFAULT 11/28/2020 SMLX B 5:29 AM CDT Specimen Anatomical Collection Method Collection Time Receive d Time (Source) Location / / Volume Laterality Blood (Blood, 11/28/2020 5:29 AM 11/29/19 5:29 Capillary) CDT AM CDT Hubert Smith M.D. LAB POCT ORDERABLES-MANUAL Performing Organization Address City/State/[facility] Code Phon e Number [facility] - [address] [place], [place] [address] [place] [address] Laboratories-[address] (ABNORMAL) Venous Blood Gas and Electrolytes CG8+, POCT (11/28/2020 5:10 AM CDT) P athologist Signature Sample Site, Venstick 11/28/2020 PCSM POCT 7:00 AM CDT Comment: ----ADDITIONAL INFORMATION---- Performed at the Point of Care pH, Venous, POCT, B 7.14 (L) 7.32 - 7.43 11/28/2020 7:00 AM CDT PCSM Comment: ----ADDITIONAL INFORMATION---- Performed at the Point of Care pCO2, Venous, POCT, B 91 (H) 41 - 51 mm Hg 11/28/2020 7:0 0 AM CDT PCSM Comment: ----ADDITIONAL INFORMATION---- Performed at the Point of Care pO2, Venous, POCT, B 62 Not Applicable mm Hg 11/29/19 7:00 AM CDT PCSM Comment: ----ADDITIONAL INFORMATION---- Performed at the Point of Care Base Excess, Venous, POCT, B 2 Not Applicable mmol/L 11/28/2020 7:00 AM CDT PCSM Comment: ----ADDITIONAL INFORMATION---- Performed at the Point of Care HCO3, Venous, POCT, B 31 Not Applicable mmol/L 2020 7:00 AM CDT PCSM Comment: ----ADDITIONAL INFORMATION---- Performed at the Point of Care Sodium, POCT, B 137 135 - 145 mmol/L 11/28/2020 7:00 A M CDT PCSM Comment: ----ADDITIONAL INFORMATION---- Performed at the Point of Care Potassium, POCT, B 6.3 (CH) 3.6 - 5.2 mmol/L 11/28/2020 7:0 0 AM CDT PCSM Comment: ----ADDITIONAL INFORMATION---- Performed at the Point of Care Calcium, Ionized, POCT, B 4.80 4.65 - 5.30 mg/dL 2020 7:00 AM CDT PCSM Comment: ----ADDITIONAL INFORMATION---- Performed at the Point of Care Glucose, POCT, B 549 (H) 70 - 140 mg/dL 11/28/2020 7:00 AM CDT PCSM Comment: ----ADDITIONAL INFORMATION---- Performed at the Point of Care Hematocrit, POCT, B 40.0 38.3 - 48.6 % 11/28/2020 7:00 AM CDT PCSM Comment: ----ADDITIONAL INFORMATION---- Performed at the Point of Care Specimen Anatomical Collection Method Collection Time Receive d Time (Source) Location / / Volume Laterality Blood 11/28/2020 5:10 AM 7:00 CDT AM CDT Unknown Provider LAB POCT ORDERABLES - DEVICE Performing Organization Address City/State/ZIP Code Phon e Number POC [facility] IN[facility]IENT [address] [place], [place] [address] LABS PCSM [facility] [place] [address] [place] POC [address] Bacteria / Anabela Culture, Blood # 2 (11/28/2020 5:09 AM CDT) Patholo gist Method Time Signature Bacteria/Christina No growth 12/03/2020 DTL da Culture, after 5 7:02 AM CDT Blood days of incubation. Specimen (Source) Anatomical Collection Method Collection Time Re ceived Time Location / / Volume Laterality Blood (Blood, 11/28/2020 5:09 11/28/2020 6:21 Peripheral Draw) AM CDT AM CDT Comment: Specimen Source Site: Blood Krystian Cason M.D. LAB MICROBIOLOGY - GENERAL O RDERABLES Performing Organization Address City/[facility] Phon e Number [facility] - [address] [place] [address] [place] [address] Laboratories-[address] Venous Blood Gas and Electrolytes, POCT (11/28/2020 5:08 AM CDT) Analysis Performed At [facility] logist Time Signature ABG and Lytes, Collected DEFAULT 11/28/2020 SMLX POCT, B 5:08 AM CDT Specimen Anatomical Collection Method Collection Time Receive d Time (Source) Location / / Volume Laterality Blood (Other, 11/28/2020 5:08 AM 11/29/19 5:08 Specify in CDT AM CDT Comments) Hubert Smith M.D. LAB POCT ORDERABLES - DEVICE Performing Organization Address [facility] Phon e Number [facility] - [address] [place] [address] [facility] SMLX [address] Bacteria / Anabela Culture, Blood #1 (11/28/2020 5:02 AM CDT) [facility] gist Method Time Signature Bacteria/Christina No growth 12/03/2020 DTL da Culture, after 5 7:02 AM CDT Blood days of incubation. Specimen (Source) Anatomical Collection Method Collection Time Re ceived Time Location / / Volume Laterality Blood (Blood, 11/28/2020 5:02 11/28/2020 6:22 Peripheral Draw) AM CDT AM CDT Comment: Specimen Source Site: [facility] Krystian Cason M.D. LAB MICROBIOLOGY - GENERAL O RDERABLES Performing Organization Address City/[facility]/ZIP Code Phon e Number [facility] - [address] Beta-Hydroxybutyrate (11/28/2020 5:02 AM CDT) P athologist Signature Beta-Hydroxybut <0.1 <0.4 mmol/L 11/28/2020 [facility] yrate, S 6:05 AM CDT Specimen Anatomical Collection Method Collection Time Receive d Time (Source) Location / / Volume Laterality Blood (Blood, 11/28/2020 5:02 AM 11/29/19 5:40 Venous) CDT AM CDT Hubert Smith M.D. LAB BLOOD ADD-ON Performing Organization Address City/[facility]/ZIP Code Phon e Number [facility] - [address] [place] [address] DX Chest Portable 1 View (11/28/2020 4:28 AM CDT) Anatomical Region Laterality Modality Chest, Thoracic RST LOS, Thoracic ARZ LOS, Thoracic N/A Digital Radiography FLA LOS Specimen (Source) Anatomical Collection Method Collection Time Re ceived Time Location / / Volume Laterality 11/28/2020 4:33 AM CDT Impressions 11/28/2020 8:31 AM CDT New pigtail catheter projecting over the left upper chest with partially open loop. Removal of pigtail in the left lateral chest wall. Increased airspace opacity in the left m id lung. Otherwise no significant change. Interlobular septal thickening, Lisa B lines and perihilar opacities suggestive of pulmonary edema. Left deep sulcus may represent pneumothorax. Normal cardiac size. ET tube with tip in the lower trachea, 2.5 cm above the elier. Comparison made to 11/28/2020 (0 356). Narrative 11/28/2020 8:31 AM CDT EXAM: ??DX CHEST PORTABLE 1 VIEW Procedure Note Leona Voss M.D. - 11/28/2020Form atting of this note might be different from the original. EXAM: DX CHEST PORTABLE 1 VIEW IMPRESSION: New pigtail catheter projecting over the left upper chest with partially open loop. Removal of pigtail in the left lateral chest wall. Increased airspace opacity in the left m id lung. Otherwise no significant change. Interlobular septal thickening, Lisa B lines and perihilar opacities suggestive of pulmonary edema. Left deep sulcus may represent pneumothorax. Normal cardiac size. ET tube with tip in the lower trachea, 2.5 cm above the elier. Comparison made to 11/28/2020 (0 356). Krystian Cason M.D. IMG DIAGNOSTIC IMAGING PROCE DURES SARS Coronavirus 2, PCR Rapid, V Symptomatic (11/28/2020 4:28 AM CDT) [facility] Method Time Signature SARS CoV-2, Undetected Undetected 11/28/2020 [facility] PCR, Rapid, V 5:01 AM CDT Comment: ----ADDITIONAL INFORMATION---- This RT-PCR test was performed using the Didi SARS-CoV-2 and Influenza A/B Reagent assay from [employer], which has received Emergency Use Authori zation(EUA) by the U.S. Food and Drug Administration . Fact sheets for this Emergency Use Autho rization (EUA) assay can be found at the following link s: For Healthcare Providers: https://www.fda.gov/media/985418/downloa d For Patients: https://www.fda.gov/media/925950/downloa d SARS Coronavirus 2, Source, Rapid Swab, Nasopharynx 11/28/2020 4:32 AM CDT STMA Specimen Anatomical Collection Method Collection Time Receive d Time (Source) Location / / Volume Laterality Varies 11/28/2020 4:28 AM 4:32 (Nasopharynx) CDT AM CDT Hubert Smith M.D. LAB MICROBIOLOGY - GENERAL O RDERABLES Performing Organization Address City/State/ZIP Code Phon e Number [facility] - [address] [place], [place] [address] [place] [address] [facility] [address] Chest Tube Insertion (11/28/2020 4:25 AM CDT) Narrative Hubert Smith M.D. - 11/28/2020 4: 25 AM CDT Hubert Smith M.D. ? 11/28/2020 ??4:28 AM Chest Tube Insertion Date/Time: 11/28/2020 4:25 AM Performed by: Hubert Smith M.D. Authorized by: Krystian Cason M.D. Care team members present 1. Krystian Cason M.D. PROCEDURE DETAILS Needle decompression: yes ?? Placement location: left mid-clavicular Intercostal space: 2nd Tube type: pigtail Insertion of wire with dilators: yes Tube connected to drainage device at: wa ter seal Drainage characteristics: air Ultrasound image guidance used to locali ze target, identify at risk structures, and dynamically used to dire ct therapy to the target. Image(s) not saved. Additional procedure details: Procedure attempted initially at left anterior axillary line, however due to b elyssa habitus, unable to reach pleural space here. Wire placed through pre-existing needle used to decompress left chest at 2nd ICS with buckner ccessful pigtail insertion at this area over wire CONSENT Consent obtained: none - emergent situat ion UNIVERSAL PROTOCOL All relevant documentation and testing w ere reviewed and available. All required blood products, implants, devic es and or special equipment were made available as applicable. Pre-proced ure verification was conducted and the correct site was marked if required. A fire risk assessment was done as applicable. The procedural time-out w as conducted prior to performing the procedure and confirmed in a procedu ral pause. PRE-PROCEDURE DETAILS Indications: pneumothorax Site preparation: chlorhexidine SEDATION / ANESTHESIA Anesthesia method: already under sedatio n POST-PROCEDURE DETAILS Post-insertion x-ray performed: yes X-ray findings: tube in good position Procedure successful: yes Complications: no apparent complications Krystian Cason M.D. PROCEDURE/MINOR SURGICAL ORD ERABLES Lactate, POCT (11/28/2020 4:14 AM CDT) P athologist Signature Lactate, POCT 1.65 0.50 - 11/28/2020 PCLX 2.20 4:51 AM CDT mmol/L Sample Site, Venstick 11/28/2020 PCLX POCT 4:51 AM CDT Specimen Anatomical Collection Method Collection Time Receive d Time (Source) Location / / Volume Laterality Blood 11/28/2020 4:14 AM 4:51 CDT AM CDT Unknown Provider LAB POCT ORDERABLES - DEVICE Performing Organization Address City/State/ZIP Code Phon e Number POC [facility] LAB SERVICES [address] [place] [address] PCLX [facility] [place] [address] [place] POC [address] [facility] (ABNORMAL) Venous Blood Gas and Electrolytes CG8+, POCT (11/28/2020 4:13 AM CDT) P athologist Signature Sample Site, Venstick 11/28/2020 PCSM POCT 4:51 AM CDT Comment: ----ADDITIONAL INFORMATION---- Performed at the Point of Care pH, Venous, POCT, B 7.12 (L) 7.32 - 7.43 11/28/2020 4:51 AM CDT PCSM Comment: ----ADDITIONAL INFORMATION---- Performed at the Point of Care pCO2, Venous, POCT, B 97 (H) 41 - 51 mm Hg 11/28/2020 4:5 1 AM CDT PCSM Comment: ----ADDITIONAL INFORMATION---- Performed at the Point of Care pO2, Venous, POCT, B 67 Not Applicable mm Hg 11/29/19 4:51 AM CDT PCSM Comment: ----ADDITIONAL INFORMATION---- Performed at the Point of Care Base Excess, Venous, POCT, B 2 Not Applicable mmol/L 11/28/2020 4:51 AM CDT PCSM Comment: ----ADDITIONAL INFORMATION---- Performed at the Point of Care HCO3, Venous, POCT, B 32 Not Applicable mmol/L 2020 4:51 AM CDT PCSM Comment: ----ADDITIONAL INFORMATION---- Performed at the Point of Care Sodium, POCT, B 132 (L) 135 - 145 mmol/L 11/28/2020 4:51 A M CDT PCSM Comment: ----ADDITIONAL INFORMATION---- Performed at the Point of Care Potassium, POCT, B 5.9 (H) 3.6 - 5.2 mmol/L 11/28/2020 4:5 1 AM CDT PCSM Comment: ----ADDITIONAL INFORMATION---- Performed at the Point of Care Calcium, Ionized, POCT, B 4.80 4.65 - 5.30 mg/dL 2020 4:51 AM CDT PCSM Comment: ----ADDITIONAL INFORMATION---- Performed at the Point of Care Glucose, POCT, B 448 (H) 70 - 140 mg/dL 11/28/2020 4:51 AM CDT PCSM Comment: ----ADDITIONAL INFORMATION---- Performed at the Point of Care Hematocrit, POCT, B 38.0 (L) 38.3 - 48.6 % 11/28/2020 4:51 AM CDT PCSM Comment: ----ADDITIONAL INFORMATION---- Performed at the Point of Care Specimen Anatomical Collection Method Collection Time Receive d Time (Source) Location / / Volume Laterality Blood 11/28/2020 4:13 AM 4:51 CDT AM CDT Unknown Provider LAB POCT ORDERABLES - DEVICE Performing Organization Address City/State/ZIP Code Phon e Number POC [facility] IN[facility]IENT [address] [place], [place] [address] [place] [address] [facility] [address] DX Chest Portable 1 View (11/28/2020 4:07 AM CDT) Anatomical Region Laterality Modality Chest, Thoracic RST LOS, Thoracic ARZ LOS, Thoracic N/A Digital Radiography FLA LOS Specimen (Source) Anatomical Collection Method Collection Time Re ceived Time Location / / Volume Laterality 11/28/2020 4:16 AM CDT Impressions 11/28/2020 8:28 AM CDT Partially visualized pigtail drain in the subcutaneous of the lateral left chest wall. Lucency along t he left cardiac border may represent pneumothorax. Tubular structure projecti ng over the left upper hemithorax. Otherwise no significant change since ea ryan today. Narrative 11/28/2020 8:28 AM CDT EXAM: ??DX CHEST PORTABLE 1 VIEW Procedure Note Leona Voss M.D. - 11/28/2020Form atting of this note might be different from the original. EXAM: DX CHEST PORTABLE 1 VIEW IMPRESSION: Partially visualized pigtail drain in th e subcutaneous of the lateral left chest wall. Lucency along t he left cardiac border may represent pneumothorax. Tubular structure projecti ng over the left upper hemithorax. Otherwise no significant change since ea ryan today. Hubert MÉNDEZ DIAGNOSTIC IMAGING PROCE CAROL ANN DX Chest Portable 1 View (11/28/2020 3:39 AM CDT) Anatomical Region Laterality Modality Chest, Thoracic RST LOS, Thoracic ARZ LOS, Thoracic N/A Digital Radiography FLA LOS Specimen (Source) Anatomical Collection Method Collection Time Re ceived Time Location / / Volume Laterality 11/28/2020 3:45 AM CDT Impressions 11/28/2020 8:27 AM CDT No comparison. Bilateral interstitial septal thickening, Rayna B lines and perihilar opacities suggestive of pulmonary edema. Left deep sulcus sign raises suspicious for pneumothorax. No pleural effusion. Normal cardiac size. ET tube with tip in the lower trac hea, 2 cm above the elier. Narrative 11/28/2020 8:27 AM CDT EXAM: ??DX CHEST PORTABLE 1 VIEW Procedure Note Leona Voss M.D. - 11/28/2020Form atting of this note might be different from the original. EXAM: DX CHEST PORTABLE 1 VIEW IMPRESSION: No comparison. Bilateral interstitial se ptal thickening, Rayna B lines and perihilar opacities suggestive of pulmonary edema. Left deep sulcus sign raises suspicious for pneumothorax. No pleural effusion. Normal cardiac size. ET tube with tip in the lower trac hea, 2 cm above the elier. Hubert MÉNDEZ DIAGNOSTIC IMAGING PROCE CAROL ANN Lactate, POCT (11/28/2020 3:31 AM CDT) Analysis Performed At Patho logist Time Signature Lactate, POCT Collected DEFAULT 11/28/2020 SMLX 3:31 AM CDT Specimen Anatomical Collection Method Collection Time Receive d Time (Source) Location / / Volume Laterality Blood (Blood, 11/28/2020 3:31 AM 11/29/19 3:31 Venous) CDT AM CDT Hubert Smith M.D. LAB POCT ORDERABLES - DEVICE Performing Organization Address City/[facility]/ZIP Code Phon e Number [facility] - [address] [place], [place] [address] [facility] [place] [address] [facility]ly [facility] [address] [facility] Prothrombin Time (PT) (11/28/2020 3:31 AM CDT) P athologist Signature Prothrombin 11.5 9.4 - 12.5 11/28/2020 [facility], P sec 3:49 AM CDT INR 1.0 0.9 - 1.1 11/28/2020 [facility] 3:49 AM CDT Comment: ----ADDITIONAL INFORMATION---- Standard intensity warfarin therapeutic range: 2.0 to 3.0 ?? High intensity warfarin therapeutic rang e: 2.5 to 3.5 Specimen Anatomical Collection Method Collection Time Receive d Time (Source) Location / / Volume Laterality Blood (Blood, 11/28/2020 3:31 AM 11/29/19 3:39 Venous) CDT AM CDT Hubert Smith M.D. LAB BLOOD ADD-ON Performing Organization Address City/[facility]/ZIP Code Phon e Number [facility] - [address] [place] [address] [facility] [address] [facility] Magnesium (11/28/2020 3:31 AM CDT) athologist Signature Magnesium, S 2.1 1.7 - 2.3 11/28/2020 DTL mg/dL 4:24 AM CDT Specimen Anatomical Collection Method Collection Time Receive d Time (Source) Location / / Volume Laterality Blood (Blood, 11/28/2020 3:31 AM 11/29/19 4:02 Venous) CDT AM CDT Hubert Smith M.D. LAB BLOOD ADD-ON Performing Organization Address City/[facility]/ZIP Code Phon e Number [facility] - [address] [place], [place] [address] [facility] [place] [address] Laboratories-[address] (ABNORMAL) Troponin T, Baseline, 5th gen (11/28/2020 3:31 AM CDT) P athologist Signature Troponin T, 60 (H) <=15 ng/L 11/28/2020 STM Baseline, 5th 3:56 AM CDT gen Specimen Anatomical Collection Method Collection Time Receive d Time (Source) Location / / Volume Laterality Blood (Blood, 11/28/2020 3:31 AM 11/29/19 3:40 Venous) CDT AM CDT Hubert Smith M.D. LAB BLOOD TROPONIN Performing Organization Address City/State/ZIP Code Phon e Number [facility] - [address] [place] [phone] [place] [address] Formerly [facility]-[address] (ABNORMAL) Hepatic Function Panel (11/28/2020 3:31 AM CDT) Patholo gist Method Time Signature Bilirubin, Total, S 0.3 <=1.2 11/28/2020 DTL mg/dL 4:24 AM CDT Bilirubin, Direct, S <0.2 0.0 - 0.3 11/28/2020 DTL mg/dL 4:24 AM CDT Aspartate 66 (H) 8 - 48 11/28/2020 DTL Aminotransferase U/L 4:24 AM CDT (AST), S Alanine 62 (H) 7 - 55 11/28/2020 DTL Aminotransferase U/L 4:24 AM CDT (ALT), S Alkaline 145 (H) 40 - 129 11/28/2020 DTL Phosphatase, S U/L 4:24 AM CDT Albumin, S 3.9 3.5 - 5.0 11/28/2020 DTL g/dL 4:24 AM CDT Protein, Total, S 6.8 6.3 - 7.9 11/28/2020 DTL g/dL 4:24 AM CDT Specimen Anatomical Collection Method Collection Time Receive d Time (Source) Location / / Volume Laterality Blood (Blood, 11/28/2020 3:31 AM 11/29/19 21 4:02 Venous) CDT AM CDT Hubert Smith M.D. LAB BLOOD ADD-ON Performing Organization Address City/[facility] Code Phon e Number [facility] - [address] [place], [place] [address] [facility] [place] [address] Laboratories-[address] (ABNORMAL) NT-Pro B-Type Natriuretic Peptide (BNP) (11/28/2020 3:31 AM CDT) P athologist Signature NT-Pro BNP 1197 (H) 5 - 67 11/28/2020 [facility] pg/mL 4:28 AM CDT Comment: REVISED RESULTS NT-proBNP values less than 300 pg/mL hav [...] age in the absence of renal failure. ----PREVIOUSLY REPORTED ---- 1197 NT-proBNP values less than 300 pg/mL have a 99% negative predictive capri ue for excluding acute congestive heart crissy lure. A cutoff of 1200 pg/mL for patients with an eGFR<60 yields a diagno stic sensitivity and specificity of 89% and 72% for acute congestive heart f ailure. ??A diagnostic NT-proBNP cutoff of 1800 pg/mL has been suggested in adults over 75 years of age in the absence of renal failure., Flagged a s: Abnormal_High (Reported 11/28/2020 04:03) Demographics adjusted: Ref Interval prev iously reported as 5 - 138 Specimen Anatomical Collection Method Collection Time Receive d Time (Source) Location / / Volume Laterality Blood (Blood, 11/28/2020 3:31 AM 11/29/19 3:39 Venous) CDT AM CDT Hubert Smith M.D. LAB BLOOD ADD-ON Performing Organization Address City/State/[facility] Code Phon e Number [facility] - [address] [place], [place] [address] [facility] [place] [address] Laboratories-[facility] [address] [facility] (ABNORMAL) Basic Metabolic Panel (11/28/2020 3:31 AM CDT) P athologist Signature Potassium, P 5.3 (H) 3.6 - 5.2 11/28/2020 [facility] mmol/L 4:10 AM CDT Sodium, P 136 135 - 145 11/28/2020 [facility] mmol/L 4:10 AM CDT Chloride, P 101 98 - 107 11/28/2020 [facility] mmol/L 4:10 AM CDT Bicarbonate, P 25 22 - 29 11/28/2020 [facility] mmol/L 4:10 AM CDT Anion Gap, P 10 7 - 15 11/28/2020 [facility] 4:10 AM CDT BUN (Blood Urea 18 8 - 24 11/28/2020 [facility] Nitrogen), P mg/dL 4:10 AM CDT Creatinine 1.01 0.74 - 11/28/2020 [facility] 1.35 mg/dL 4:10 AM CDT eGFR-Black/Afri >90 >=60 11/28/2020 [facility] can Angolan mL/min/BSA 4:31 AM CDT Comment: REVISED RESULTS ----ADDITIONAL INFORMATION---- Estimated GFR calculated using the 2009 CKD_EPI creatinine equation. ----PREVIOUSLY REPORTED ---- 61, Flagged as: Normal (Reported 11/28/2020 04:10) eGFR Non-Black/ 84 >=60 mL/min/BSA 4:31 AM CDT [facility] Comment: REVISED RESULTS ----ADDITIONAL INFORMATION---- Estimated GFR calculated using the 2009 CKD_EPI creatinine equation. ----PREVIOUSLY REPORTED ---- 53, Flagged as: Abnormal_Low (Reported 11/28/2020 04:10) Calcium, Total, P 8.5 (L) 8.6 - 10.0 mg/dL 11/28/2020 4:31 AM CDT [facility] Comment: ----PREVIOUSLY REPORTED ---- Demographics adjusted: Ref Interval prev iously reported as 8.8 - 10.2 Glucose, P 512 (CH) 70 - 140 mg/dL 11/28/2020 4:10 AM CDT S [facility] Specimen Anatomical Collection Method Collection Time Receive d Time (Source) Location / / Volume Laterality Blood (Blood, 11/28/2020 3:31 AM 11/29/19 3:39 Venous) CDT AM CDT Hubert Smith M.D. LAB BLOOD ADD-ON Performing Organization Address City/State/ZIP Code Phon e Number [facility] - [address] [place], [place] [address] [place] [address] [facility] 200 [facility] CBC with Differential, Blood (11/28/2020 3:31 AM CDT) P athologist Signature Hemoglobin CANCELED 13.2 - 16.6 11/28/2020 [facility] 6:12 AM CDT Comment: REVISED RESULTS ----PREVIOUSLY REPORTED ---- 13.9, Flagged as: Normal (Reported 11/28/2020 03:42) Hematocrit CANCELED 38.3 - 48.6 % 11/28/2020 6:12 AM CDT [facility] Comment: REVISED RESULTS ----PREVIOUSLY REPORTED ---- 44.7, Flagged as: Normal (Reported 11/28/2020 03:42) Erythrocytes CANCELED 4.35 - 5.65 x10(12)/L 11/28/2020 6:[address] [facility] Comment: REVISED RESULTS ----PREVIOUSLY REPORTED ---- 4.97, Flagged as: Normal (Reported 11/28/2020 03:42) MCV CANCELED 78.2 - 97.9 fL 11/28/2020 6:12 AM CDT [facility] Comment: REVISED RESULTS ----PREVIOUSLY REPORTED ---- 89.9, Flagged as: Normal (Reported 11/28/2020 03:42) RBC Distrib Width CANCELED 11.8 - 14.5 % 11/28/2020 6:[address] [facility] Comment: REVISED RESULTS ----PREVIOUSLY REPORTED ---- 14.1, Flagged as: Normal (Reported 11/28/2020 03:42) Platelet Count CANCELED 135 - 317 x10(9)/L 11/28/2020 6:[address] [facility] Comment: REVISED RESULTS ----PREVIOUSLY REPORTED ---- 355, Flagged as: Abnormal_High (Reported 11/28/2020 03:42) Leukocytes CANCELED 3.4 - 9.6 x10(9)/L 11/28/2020 6:12 AM C DT [facility] Comment: REVISED RESULTS ----PREVIOUSLY REPORTED ---- 17.7, Flagged as: Abnormal_High (Reported 11/28/2020 03:42) Neutrophils CANCELED 1.56 - 6.45 x10(9)/L 11/28/2020 6:12 A M CDT PM Comment: REVISED RESULTS Auto-diff results not valid. See manual differential. ----PREVIOUSLY REPORTED ---- SeeComment, Flagged as: Normal (Reported 11/28/2020 04:36) Lymphocytes CANCELED x10(9)/L 11/28/2020 6:12 AM CDT PM Comment: Result canceled by the ancillar y. Monocytes CANCELED x10(9)/L 11/28/2020 6:12 AM CDT PM Comment: Result canceled by the ancillar y. Eosinophils CANCELED x10(9)/L 11/28/2020 6:12 AM CDT PM Comment: Result canceled by the ancillar y. Basophils CANCELED x10(9)/L 11/28/2020 6:12 AM CDT PM Comment: Result canceled by the ancillar y. Specimen Anatomical Collection Method Collection Time Receive d Time (Source) Location / / Volume Laterality Blood (Blood, 11/28/2020 3:31 AM 11/29/19 21 3:40 Venous) CDT AM CDT Narrative [facility] - 11/28/2020 6:12 AM CDT CBC with Differential, B was cancelled on 11/28/2020 at 06:12; Duplicate test request. !CNCL! Hubert Smith M.D. LAB BLOOD ADD-ON Performing Organization Address City/State/ZIP Code Phon e Number [facility] - [address] [place], [place] [address] [place] [address] [facility] [address] [place] [address] [facility] [address] Blood Gas, Venous, POCT (11/28/2020 3:31 AM CDT) Analysis Performed At Patho logist Time Signature ABG and Lytes, Collected DEFAULT 11/28/2020 S[facility] POCT, B 3:31 AM CDT Specimen Anatomical Collection Method Collection Time Receive d Time (Source) Location / / Volume Laterality Blood (Other, 11/28/2020 3:31 AM 11/29/19 3:31 Specify in CDT AM CDT Comments) Hubert Smith M.D. LAB POCT ORDERABLES - DEVICE Performing Organization Address [facility] Phon e Number [facility] - [address] [place], [place] [address] [facility] [place] [address] [facility] 200 [facility] (ABNORMAL) Lactate, POCT (11/28/2020 3:29 AM CDT) athologist Signature Lactate, POCT 3.33 (H) 0.50 - 11/28/2020 P[facility] 2.20 7:00 AM CDT mmol/L Sample Site, Venstick 11/28/2020 [facility] POCT 7:00 AM CDT Specimen Anatomical Collection Method Collection Time Receive d Time (Source) Location / / Volume Laterality Blood 11/28/2020 3:29 AM 7:00 CDT AM CDT Unknown Provider LAB POCT ORDERABLES - DEVICE Performing Organization Address [facility] Phon e Number POC [facility] [address] [place] [address] PCLX [facility] [place] [address] [facility] [address] [facility] (ABNORMAL) Venous Blood Gas and Electrolytes CG8+, POCT (11/28/2020 3:28 AM CDT) athologist Signature Sample Site, Venstick 11/28/2020 PCSM POCT 3:42 AM CDT Comment: ----ADDITIONAL INFORMATION---- Performed at the Point of Care pH, Venous, POCT, B 7.02 (L) 7.32 - 7.43 11/28/2020 3:42 AM CDT PCSM Comment: ----ADDITIONAL INFORMATION---- Performed at the Point of Care pCO2, Venous, POCT, B >100 (H) 41 - 51 mm Hg 11/28/2020 3:4 2 AM CDT PCSM Comment: ----ADDITIONAL INFORMATION---- Performed at the Point of Care pO2, Venous, POCT, B 72 Not Applicable mm Hg 11/29/19 21 3:42 AM CDT PCSM Comment: ----ADDITIONAL INFORMATION---- Performed at the Point of Care Base Excess, Venous, POCT, B -1 Not Applicable mmol/L 11/28/2020 3:42 AM CDT PCSM Comment: ----ADDITIONAL INFORMATION---- Performed at the Point of Care HCO3, Venous, POCT, B 30 Not Applicable mmol/L 2020 3:42 AM CDT PCSM Comment: ----ADDITIONAL INFORMATION---- Performed at the Point of Care Sodium, POCT, B 139 135 - 145 mmol/L 11/28/2020 3:42 A M CDT PCSM Comment: ----ADDITIONAL INFORMATION---- Performed at the Point of Care Potassium, POCT, B 5.1 3.6 - 5.2 mmol/L 11/28/2020 3:4 2 AM CDT PCSM Comment: ----ADDITIONAL INFORMATION---- Performed at the Point of Care Calcium, Ionized, POCT, B 4.80 4.65 - 5.30 mg/dL 2020 3:42 AM CDT PCSM Comment: ----ADDITIONAL INFORMATION---- Performed at the Point of Care Glucose, POCT, B 470 (H) 70 - 140 mg/dL 11/28/2020 3:42 AM CDT PCSM Comment: ----ADDITIONAL INFORMATION---- Performed at the Point of Care Hematocrit, POCT, B 42.0 38.3 - 48.6 % 11/28/2020 3:42 AM CDT PCSM Comment: ----ADDITIONAL INFORMATION---- Performed at the Point of Care Specimen Anatomical Collection Method Collection Time Receive d Time (Source) Location / / Volume Laterality Blood 11/28/2020 3:28 AM 3:43 CDT AM CDT Unknown Provider LAB POCT ORDERABLES - DEVICE Performing Organization Address City/State/[facility] Code Phon e Number POC [facility] [address] [place], [place] [address] LABS PCSM [facility] [place] [address] [place] [facility] [address] ECG 12 Lead (11/28/2020 3:24 AM CDT) P athologist Signature Ventricular Rate 115 BPM MUSE ECG/Min MO Interval 140 ms MUSE QRSD Interval 92 ms MUSE QT Interval 334 ms MUSE QTC Interval 462 ms MUSE P [place] 76 degrees MUSE R [place] 64 degrees MUSE T Wave [place] 78 degrees MUSE Specimen Anatomical Collection Method Collection Time Receive d Time (Source) Location / / Volume Laterality 11/28/2020 3:24 AM 3:46 CDT PM CDT Impressions MUSE - 11/28/2020 1:44 PM CDT Sinus tachycardia Cannot rule out Anterolateral infarct When compared with ECG of 30-DEC-2002 13 :43, Vent. rate has increased Reviewed by DEBBY Matta Revised Report Narrative This result has an attachment that is no t available. Procedure Note Tong Mayer M.D. - 12/08/2020Formatt ing of this note might be different from the original. IMPRESSION: Sinus tachycardia Cannot rule out Anterolateral infarct When compared with ECG of 30-DEC-2002 13 :43, Vent. rate has increased Reviewed by DEBBY Matta Revised Report Hubert Smith M.D. ECG ORDERABLES Performing Organization Address City/[facility]/ZIP Code Phon e Number MUSE MUSE NA ECG 12 Lead (11/28/2020 3:24 AM CDT) P athologist Signature Ventricular Rate 115 BPM MUSE ECG/Min MO Interval 140 ms MUSE QRSD Interval 92 ms MUSE QT Interval 334 ms MUSE QTC Interval 462 ms MUSE P [place] 76 degrees MUSE R [place] 64 degrees MUSE T Wave [place] 78 degrees MUSE Specimen Anatomical Collection Method Collection Time Receive d Time (Source) Location / / Volume Laterality 11/28/2020 3:24 AM 3:55 CDT AM CDT Impressions MUSE - 11/28/2020 3:55 AM CDT Sinus tachycardia Cannot rule out Anterior infarct Nonspecific ST and T wave abnormality No previous ECGs available Reviewed by DEBBY Matta Narrative This result has an attachment that is no t available. Procedure Note Tong Mayer M.D. - 11/28/2020Formatt ing of this note might be different from the original. IMPRESSION: Sinus tachycardia Cannot rule out Anterior infarct Nonspecific ST and T wave abnormality No previous ECGs available Reviewed by DEBBY Matta Hubert Smith M.D. ECG ORDERABLES Performing Organization Address City/State/ZIP Code Phon e Number MUSE MUSE NA (ABNORMAL) Lactate, POCT (11/28/2020 3:04 AM CDT) athologist Signature Lactate, POCT 5.37 (H) 0.50 - 12/01/2020 [facility] 2.20 12:50 PM CDT mmol/L Sample Site, [facility] 12/01/2020 PCLX POCT 12:50 PM CDT Specimen Anatomical Collection Method Collection Time Receive d Time (Source) Location / / Volume Laterality Blood 11/28/2020 3:04 AM CDT 12:49 PM CDT Generic Rals LAB POCT ORDERABLES - DEVICE Performing Organization Address City/State/ZIP [facility] Phon e Number POC [facility] [address] [place] [address] PCLX [facility] [place] [address] [place] POC 200 [facility] (ABNORMAL) Blood Gas and Electrolytes CG8+, Point of Care, [facility], Vascular Access Chief Lifestyle Officer (11/28/2020 3:02 AM CDT) athologist Signature Sample Site, [facility] 12/01/2020 PCLX POCT 12:40 PM CDT Comment: ----ADDITIONAL INFORMATION---- Performed at the Point of Care Temp, POCT 37.0 N0002 deg C 12/01/2020 12:40 PM CDT PCL X Comment: ----ADDITIONAL INFORMATION---- Performed at the Point of Care FIO2, POCT 0.70 0.21=AIR 12/01/2020 12:40 PM CDT PCLX Comment: ----ADDITIONAL INFORMATION---- Performed at the Point of Care pH, POCT 7.04 (L) 7.35 - 7.45 12/01/2020 12:40 PM CDT PCLX Comment: ----ADDITIONAL INFORMATION---- Performed at the Point of Care pCO2, POCT 92 (H) 35 - 48 mm Hg 12/01/2020 12:40 PM CDT P CLX Comment: ----ADDITIONAL INFORMATION---- Performed at the Point of Care pO2, POCT CANCELED mm Hg 12/01/2020 12:40 PM CDT PCLX Comment: Unable to assay ----ADDITIONAL INFORMATION---- Performed at the Point of Care Result canceled by the ancillary. Base, POCT -6 (L) -2 - 3 mmol/L 12/01/2020 12:40 PM CDT P CLX Comment: ----ADDITIONAL INFORMATION---- Performed at the Point of Care HCO3, POCT 25 22 - 26 mmol/L 12/01/2020 12:40 PM CDT PCLX Comment: ----ADDITIONAL INFORMATION---- Performed at the Point of Care Sodium, POCT, B CANCELED mmol/L 12/01/2020 12:40 PM CDT PCLX Comment: Unable to assay ----ADDITIONAL INFORMATION---- Performed at the Point of Care Result canceled by the ancillary. Potassium, POCT, B CANCELED mmol/L 12/01/2020 12:40 PM C DT PCLX Comment: Unable to assay ----ADDITIONAL INFORMATION---- Performed at the Point of Care Result canceled by the ancillary. Calcium, Ionized, POCT, B CANCELED mg/dL 12/01/2020 12: 40 PM CDT PCLX Comment: Unable to assay ----ADDITIONAL INFORMATION---- Performed at the Point of Care Result canceled by the ancillary. Glucose, POCT, B 522 (H) 70 - 140 mg/dL 12/01/2020 12:40 P M CDT PCLX Comment: ----ADDITIONAL INFORMATION---- Performed at the Point of Care Hematocrit, POCT, B CANCELED % 12/01/2020 12:40 PM CDT PCLX Comment: Unable to assay ----ADDITIONAL INFORMATION---- Performed at the Point of Care Result canceled by the ancillary. 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 Angina Pectoris (Stable Angina/Angina Of Exertion) (HCC) Acute Respiratory Failure With Hypoxia ( HCC) Hypoxemia Diabetes Mellitus Type 2 Hyperglycemia ( HCC) Hypertension Essential Primary Coronary Stent Status Post Acute Respiratory Failure With Hypercapn ia (HCC) Acute Respiratory Failure With Hypoxia ( HCC) Atherosclerotic Heart Disease [place] Artery With Other Forms Angina Pectoris (Stable Angina/Angina Of Exertion) (HCC) Pneumothorax Unspecified Atherosclerotic Heart Disease [place] Artery With Other Forms Angina Pectoris (Stable Angina/Angina Of Exertion) (HCC) documented in this encounter Admitting Diagnoses Diagnosis Edema Pulmonary (HCC) Atherosclerotic Heart Disease [place] Artery With Other Forms Angina Pectoris (Stable Angina/Angina Of Exertion) (HCC) documented in this encounter Administered Medications Inactive Administered Medications - up to 3 most recent administrations Medication Order MAR Action Action Date Dose Rate Site acetaminophen tablet 1,000 mg Given 11/29/2020 7:44 AM CDT 1,000 mg (TYLENOL) 1,000 mg, oral, Every 6 hours PRN, moderate pain or score 4-6 of 10, Starting on Sat11/28/20 at 1238 Given 11/28/2020 1:07 PM CDT 1,000 mg acetaminophen tablet 1,000 mg (TYLENOL) Given 12/05/2020 3:48 PM CDT 1,000 mg 1,000 mg, oral, Every 6 hours, First dose (after last modification) on Sat11/29/20 at 1545 Given 12/05/2020 9:03 AM CDT 1,000 mg Given 12/05/2020 3:23 AM CDT 1,000 mg albumin human 5 % injection - ADS Overri de Pull Starting on Sat11/28/20 at 0614, For 1 dose, Created by cabinet override albumin human 5 % injection 25 g New Bag 11/28/2020 6:42 AM CDT 25 g 25 g, intravenous, Once, On Sat11/28/20 at 0630, For 1 dose, If no infusion rate specified: Administer the 25% solution over 60 minutes for non-Pyxis (pharmacy source) orders. Administer the 5% solution over at least 30 min if ICU/shock, otherwise infuse at 250 ml/hr. aspirin chewable tablet 324 mg Given 12/02/2020 4:26 PM CDT 324 mg 324 mg, oral, Once, On Sat12/02/20 at 1630, For 1 dose, Preprocedure (CV) aspirin DR tablet 81 mg Given 12/04/2020 9:45 PM CDT 81 mg 81 mg, oral, Daily at bedtime, First dose on Sat11/29/20 at 2100, Swallow whole. Do NOT crush, chew, or split tablet. Given 12/03/2020 8:22 PM CDT 81 mg Given 12/02/2020 8:47 PM CDT 81 mg atorvastatin tablet 80 mg (LIPITOR) Given 12/04/2020 9:45 PM CDT 80 mg 80 mg, oral, Daily at bedtime, First dose on Sat11/29/20 at 2100 Given 12/03/2020 8:22 PM CDT 80 mg Given 12/02/2020 8:47 PM CDT 80 mg azithromycin 500 mg in NaCl 0.9% New Bag 11/28/2020 5:34 AM CD T 500 mg 255 mL/hr IVPB (ZITHROMAX) 500 mg, intravenous, at 255 mL/hr, Administer over 60 Minutes, Once, On Sat11/28/20 at 0444, For 1 dose, Indications: Respiratory tract infection, community acquired azithromycin 500 mg in NaCl 0.9% New Bag 11/29/2020 5:15 AM CD T 500 mg 255 mL/hr IVPB (ZITHROMAX) 500 mg, intravenous, at 255 mL/hr, Administer over 60 Minutes, Every 24 hours, First dose on Sat11/29/20 at 0600, Indications: Respiratory tract infection, community acquired azithromycin tablet 500 mg (ZITHROMAX) Given 11/30/2020 7:40 AM CDT 500 mg 500 mg, oral, Once, On Sat11/30/20 at 0800, For 1 dose, Indications: Respiratory tract infection, community acquired cefdinir capsule 300 mg (OMNICEF) Given 12/02/2020 8:47 PM CDT 300 mg 300 mg, oral, Every 12 hours scheduled, First dose on Sat11/30/20 at 0900, For 3 days, Administer 2 hours before or 6 hours after taking magnesium, aluminum (antacids, laxatives) or calcium and iron supplements (multivitamins); may be taken with calcium or iron if given with food., Drug Monitoring Program: Pharmacist to adjust medication dosing based on indication and drug clearance factors., Indications: Respiratory tract infection, community acquired Given 12/02/2020 8:17 AM CDT 300 mg Given 12/01/2020 8:20 PM CDT 300 mg cefTRIAXone in dextrose (iso-osm) IVPB New Bag 11/29/2020 7:45 AM CDT 2 g 200 mL/hr 2 g (ROCEPHIN) 2 g, intravenous, at 200 mL/hr, Administer over 15 Minutes, Every 24 hours, First dose on Sat11/28/20 at 0630, Drug Monitoring Program: Pharmacist to adjust medication dosing based on indication and drug clearance factors., Indications: Respiratory tract infection, community acquired New Bag 11/28/2020 7:35 AM CDT 2 g 200 mL/hr chlorhexidine 0.12 % mouthwash 15 mL Given 11/28/2020 10:44 AM C DT 15 mL (PERIDEX) 15 mL, swish & spit, 2 times daily, First dose on Sat11/28/20 at 0900, Swab oral cavity while on ventilator. Avoid brushing or use of mouthwash for at least 2 hours after application. Discontinue after extubation. clopidogreL tablet 600 mg (PLAVIX) Given 12/02/2020 1:29 PM CDT 600 mg 600 mg, oral, Once, On Sat12/02/20 at 1100, For 1 dose clopidogreL tablet 75 mg (PLAVIX) Given 12/05/2020 8:32 AM CDT 75 mg 75 mg, oral, Daily, First dose on Sat12/03/20 at 0900 Given 12/04/2020 8:03 AM CDT 75 mg Given 12/03/2020 8:00 AM CDT 75 mg dextrose 50 % injection 25 g 25 g, intravenous, As needed, low blood sugar, for glucose less than 80, Starting on Sat11/28/20 at 0419 dextrose 50 % injection 50 g Given 11/28/2020 4:53 AM CDT 50 g 50 g, intravenous, Once, On Sat11/28/20 at 0421, For 1 dose, Administer D50W immediately before insulin is administered. diphenhydrAMINE-zinc acetate 1 % cream Given 9:47 PM CDT 1 application 1 application (BENADRYL) 1 application, topical, 3 times daily PRN, itching, irritation, rash, Starting on Sat12/03/20 at 2039 Given 12/04/2020 9:46 PM CDT 1 application Given 12/04/2020 12:35 PM CDT 1 application fentaNYL 10 mcg/mL in NaCl 0.9% 250 mL i nfusion (SUBLIMAZE) - ADS Override Pull Starting on Sat11/28/20 at 0604, For 1 do se, Created by cabinet override 2,500 mcg in 250 mL bag fentaNYL 10 mcg/mL in NaCl Rate/Dose Change 11/28/2020 11:41 25 mcg /hr 2.5 mL/hr 0.9% 250 mL infusion AM CDT (SUBLIMAZE) 25-100 mcg/hr (2.5-10 mL/hr), intravenous, Continuous, Starting on Sat11/28/20 at 0615, Start if bolus doses insufficient 2,500 mcg in 250 mL bag, Type: Titrate, Initiate at: 25 mcg/hr if more than 3 boluses used in 1 hour., Titrate at: 25 mcg/hr if 3 boluses are used within 1 hour., Goal: Pain less than 4 of 10, RASS 0 to -2. Maximum dose of 100 mcg/hr before contacting provider. Rate/Dose Verify 11/28/2020 11:00 AM CDT 50 mcg/hr 5 mL/hr Rate/Dose Change 11/28/2020 10:37 AM CDT 50 mcg/hr 5 mL/hr fentaNYL bolus from bag 50 mcg Bolus from Bag 11/28/2020 10:30 AM CDT 50 mcg (SUBLIMAZE) 50 mcg, intravenous, Every 5 min PRN, severe pain or score 7-10 of 10, sedation, Starting on Sat11/28/20 at 0604, Start infusion if more than 3 doses given. Bolus from Bag 11/28/2020 9:40 AM CDT 50 mcg Bolus from Bag 11/28/2020 9:36 AM CDT 50 mcg fentaNYL injection (SUBLIMAZE) Given 11/28/2020 5:12 100 mcg Left Antecub ital Code/trauma/sedation medication, AM CDT Starting on Sat11/28/20 at 0339 Given 11/28/2020 3:39 AM CDT 100 mcg fentaNYL injection 100 mcg (SUBLIMAZE) Given 11/28/2020 4:39 AM CDT 100 mcg 100 mcg, intravenous, Once, On Sat11/28/20 at 0438, For 1 dose fentaNYL injection 50 mcg (SUBLIMAZE) Given 11/28/2020 1:17 PM CDT 50 mcg 50 mcg, intravenous, Every 5 min PRN, severe pain or score 7-10 of 10, sedation, Starting on Sat11/28/20 at 0604, Start infusion if more than 3 doses given. furosemide injection 40 mg (LASIX) Given 11/28/2020 6:44 AM CDT 40 mg 40 mg, intravenous, Once, On Sat11/28/20 at 0615, For 1 dose, Adults: Doses less than 120 mg: IV push over 20 mg/minute. Doses 120 mg or greater: IVPB at 4 mg/minute. Peds/Neonates: Doses less than 120 mg over 0.5 mg/kg/minute. Doses 120 mg or greater: IVPB at 4 mg/minute. furosemide injection 40 mg (LASIX) Given 11/28/2020 1:07 PM CDT 40 mg 40 mg, intravenous, Once, On Sat11/28/20 at 1245, For 1 dose, Adults: Doses less than 120 mg: IV push over 20 mg/minute. Doses 120 mg or greater: IVPB at 4 mg/minute. Peds/Neonates: Doses less than 120 mg over 0.5 mg/kg/minute. Doses 120 mg or greater: IVPB at 4 mg/minute. heparin (porcine) Given 12/05/2020 2:35 PM CDT 5,000 Units Right Lower injection 5,000 Units Abdomen 5,000 Units, subcutaneous, Every 8 hours scheduled, First dose on Sat11/28/20 at 1400 Given 12/05/2020 6:23 AM CDT 5,000 Units Right Lower Abdomen Given 12/04/2020 9:45 PM CDT 5,000 Units Right Lower Abdomen HYDROmorphone (PF) injection 0.2 mg Given 11/29/2020 7:44 AM CDT 0.2 mg (DILAUDID) 0.2 mg, intravenous, Once, On Sat11/29/20 at 0745, For 1 dose insulin aspart U-100 Given 12/05/2020 12:59 PM 6 Units Left Lower Abdomen (Carbohydrate Count) CDT injection 0-20 Units (NovoLOG FlexPen) 0-20 Units, subcutaneous, 3 times daily with meals, First dose on Sat11/30/20 at 0815, Simple or Complex Ratio: Simple, Carb Ratio - Simple (1 unit per __ grams of carbohydrates): 10 Given 12/05/2020 9:02 AM CDT 7 Units Right Lower Abdomen Given 12/04/2020 7:34 PM CDT 6 Units Left Lower Abdomen insulin aspart U-100 Given 12/05/2020 1:01 PM CDT 4 Units Left Lower Abdomen injection 0-13 Units (NovoLOG FlexPen) 0-13 Units, subcutaneous, 3 times daily, First dose on Sat11/29/20 at 0800, Insulin Scale: Moderate Correction Scale, 140 - 179: 2 units, 180 - 219: 4 units, 220 - 259: 6 units, 260 - 299: 8 units, 300 - 339: 10 units, 340 - 379: 12 units, 380 - 399: 13 units, Greater than 399: Call service writing Insulin orders Given 12/04/2020 12:35 PM CDT 4 Units Left Lower Abdomen Given 12/03/2020 7:24 PM CDT 2 Units Left Upper Abdomen insulin aspart U-100 Given 11/29/2020 12:37 PM CDT 4 Units Left Lower Abdomen injection 4 Units (NovoLOG FlexPen) 4 Units, subcutaneous, Daily with lunch, First dose on Sat11/29/20 at 1200, Hold if eating <50% of meal insulin glargine injection Given 12/01/2020 9:19 PM CDT 10 Units Left Lower Abdomen 10 Units 10 Units, subcutaneous, Daily at bedtime, First dose on Sat11/29/20 at 2100 Given 11/30/2020 9:57 PM CDT 10 Units Right Lower Abdomen Given 11/29/2020 9:09 PM CDT 10 Units Right Lower Abdomen insulin glargine injection Given 12/04/2020 9:00 PM CDT 8 Units Right Lower Abdomen 8 Units 8 Units, subcutaneous, Daily at bedtime, First dose (after last modification) on Sat12/02/20 at 2100 Given 12/03/2020 9:26 PM CDT 8 Units Left Lower Abdomen Given 12/02/2020 9:01 PM CDT 8 Units Left Lower Abdomen insulin regular 1 Rate/Dose Verify 11/28/2020 11:00 AM 0.5 Units/hr 0 .5 mL/hr Unit/mL in NaCl 0.9% 100 CDT mL infusion 0-25 Units/hr (0-25 mL/hr), intravenous, Continuous Infusion: Per Instructions PRN, Initiate infusion for glucose greater than 150 mg/dL, Starting on Sat11/28/20 at 0604, NOTIFY PRESCRIBER IF: Glucose is not within target range after 4 hours of IV insulin infusion. Patient starts eating. (50% of clear liquid diet or more) Patient starts bolus tube feedings. The insulin infusion has been either 0 to 1 unit/hour for 3 consecutive hours to consider orders to transition from IV to SQ long acting insulin. Infuse insulin into an existing line of a compatible IV solution and Y site insulin infusion into existing line below the infusion pump. Insulin infusion and existing line of compatible IV solution should each run as a primary line on separate infusion pumps at the ordered infusion rates. If no compatible IV solutions are ordered, infuse into an existing line of 0.45% NaCL infusion at 20 ml/hr. 100 Units in 100 mL, Calculator: Goal Range: 120-150 mg/dl, Starting Insulin Infusion Factor: 0.03 Rate/Dose Change 11/28/2020 10:36 AM CDT 0.5 Units/hr 0.5 mL/hr Rate/Dose Verify 11/28/2020 10:00 AM CDT 6.7 Units/hr 6.7 mL/hr insulin regular injection 9 Units Given 11/28/2020 5:00 AM CDT 9 Units 9 Units (0.1 Units/kg ? 90 kg Dosing weight), intravenous, Once, On Sat11/28/20 at 0421, For 1 dose, Use luer lock insulin syringe to administer. Use subcutaneous insulin syringe to administer if ordered for subcutaneous route. ipratropium-albuteroL 0.5-2.5 mg/3 mL ne bulizer solution 3 mL (DUONEB) 3 mL, nebulization, 4 times daily PRN, w heezing, shortness of breath, Starting on Sat11/29/20 at 1543 ketamine injection 90 mg (KETALAR) Given 11/28/2020 5:33 AM CDT 90 mg 90 mg (1 mg/kg ? 90 kg Dosing weight), intravenous, Once, On Sat11/28/20 at 0527, For 1 dose lidocaine 5 % 1 patch Medication Applied 12/05/2020 8:32 AM 1 patch Left Shoulder (LIDODERM) CDT 1 patch, transdermal, Administer over 12 Hours, Daily, First dose on Sat11/28/20 at 1245, Remove after 12 hours. Medication Applied 12/04/2020 8:03 AM CDT 1 patch Left Shoulder Medication Applied 12/03/2020 8:00 AM CDT 1 patch Left Shoulder losartan tablet 100 mg (COZAAR) Given 12/05/2020 8:32 AM CDT 100 mg 100 mg, oral, Daily, First dose (after last modification) on Sat12/04/20 at 0900 Given 12/04/2020 8:03 AM CDT 100 mg losartan tablet 25 mg (COZAAR) Given 12/03/2020 3:01 PM CDT 25 mg 25 mg, oral, Once, On 12/03/20 at 1230, For 1 dose losartan tablet 50 mg (COZAAR) Given 12/03/2020 8:00 AM CDT 50 mg 50 mg, oral, Daily, First dose (after last modification) on Sat11/29/20 at 0900 Given 12/02/2020 8:17 AM CDT 50 mg Given 12/01/2020 9:27 AM CDT 50 mg melatonin tablet 5 mg Given 12/04/2020 9:45 PM CDT 5 mg 5 mg, oral, Daily at bedtime, First dose on [place] 12/01/20 at 2100 Given 12/03/2020 8:22 PM CDT 5 mg Given 12/02/2020 8:47 PM CDT 5 mg metoprolol tartrate tablet 25 mg (LOPRES SOR) Given 12/03/2020 8:00 AM CDT 25 mg 25 mg, oral, 2 times daily, First dose on Sat11/28/20 at 2100 Given 12/02/2020 8:47 PM CDT 25 mg Given 12/02/2020 8:17 AM CDT 25 mg metoprolol tartrate tablet 50 mg (LOPRES SOR) Given 12/05/2020 8:32 AM CDT 50 mg 50 mg, oral, 2 times daily, First dose (after last modification) on Sat12/03/20 at 2100 Given 12/04/2020 9:46 PM CDT 50 mg Given 12/04/2020 8:03 AM CDT 50 mg tagnhaunlusr-xqbf-WJ-Ca-minerals 400 mcg Given 12/05/2020 8:32 A M CDT 1 tablet (folic acid) tablet 1 tablet (THERAPEUTI C-M) 1 tablet, oral, Daily, First dose on Sat11/29/20 at 0900 Given 12/04/2020 8:03 AM CDT 1 tablet Given 12/03/2020 8:00 AM CDT 1 tablet nicotine 21 mg/24 hr 1 patch (NICODERM C Q) 1 patch, transdermal, Administer over 24 Hours, Daily, First dose on Sat11/29/20 at 0900 nitroglycerin 200 mcg/mL Rate/Dose Change 11/28/2020 4:46 AM 20 mcg/m in 6 mL/hr in D5W 250 mL infusion CDT (TRIDIL) 5-200 mcg/min (1.5-60 mL/hr), intravenous, Continuous, Starting on Sat11/28/20 at 0327, bottle: 50 mg in 250 mL, Type: Titrate, Initiate at: 5 mcg/min, Titrate at: 5 mcg/min. every 5 min., Goal: MAP 60-80 Rate/Dose Change 11/28/2020 4:43 AM CDT 30 mcg/min 9 mL/hr Rate/Dose Change 11/28/2020 4:34 AM CDT 40 mcg/min 12 mL/hr norepinephrine 16 mcg/mL in D5W 250 mL i nfusion - ADS Override Pull Starting on Sat11/28/20 at 0538, For 1 dose, Created by cabinet override Protect from light and avoid extravasation norepinephrine 16 mcg/mL Restarted 11/28/2020 11:46 AM 0.05 mcg/ kg/min 16.9 mL/hr in D5W 250 mL infusion CDT 0-0.3 mcg/kg/min ? 90 kg Dosing weight (0-101.25 mL/hr), intravenous, Continuous, Starting on Sat11/28/20 at 0630, Protect from light and avoid extravasation, Patient Type: Standard, Initiate at: 0.05 mcg/kg/min, Titrate at: 0.05 mcg/kg/min. every 5 min., Wean at: 0.01 mcg/kg/min. every 5 min., Goal: Other, Goal: MAP >65 Rate/Dose Verify 11/28/2020 11:00 AM CDT 0.08 mcg/kg/min 27 mL/hr Rate/Dose Change 11/28/2020 10:45 AM CDT 0.08 mcg/kg/min 27 mL/hr ondansetron (PF) injection 4 mg (ZOFRAN) 4 mg, intravenous, Every 6 hours PRN, na usea, vomiting, Starting on Sat11/28/20 at 1431 oxyCODONE IR tablet 5 mg (ROXICODONE) Given 12/03/2020 3:58 AM CDT 5 mg 5 mg, oral, Every 4 hours PRN, severe pain or score 7-10 of 10, Starting on Sat11/29/20 at 0732, Hold for somnolence, RR<12/min, SpO2<88% Given 12/02/2020 8:04 PM CDT 5 mg Given 12/02/2020 8:17 AM CDT 5 mg oxyCODONE IR tablet 5 mg (ROXICODONE) Given 12/05/2020 3:48 PM CDT 5 mg 5 mg, oral, Every 3 hours PRN, moderate pain or score 4-6 of 10, severe pain or score 7-10 of 10, Starting on Sat12/03/20 at 0722 Given 12/05/2020 12:58 PM CDT 5 mg Given 12/05/2020 9:43 AM CDT [address] tablet 40 mg (PROTONIX) Given 12/05/2020 6:23 AM CDT 40 mg 40 mg, oral, Daily before breakfast, First dose on Sat11/30/20 at 0700, pantoprazole 40 mg oral daily was interchanged for omeprazole 20 or 40 mg oral daily Swallow whole. Do NOT crush, chew, or split tablet. Given 12/04/2020 6:35 AM CDT 40 mg Given 12/03/2020 6:26 AM CDT 40 mg polyethylene glycol powder packet 17 g Given 12/01/2020 5:30 PM CDT 17 g (MIRALAX) 17 g, oral, Daily PRN, constipation, Starting on Sat11/30/20 at 1214, Dissolve in 240 mLs (8 ounces) of water prior to giving. Avoid mixing with starch-based thickened liquids. polyethylene glycol powder packet 17 g Given 12/05/2020 8:31 AM CDT 17 g (MIRALAX) 17 g, oral, Daily, First dose (after last modification) on Sat12/02/20 at 0900, Dissolve in 240 mLs (8 ounces) of water prior to giving. Avoid mixing with starch-based thickened liquids. Given 12/04/2020 8:03 AM CDT 17 g Given 12/03/2020 8:00 AM CDT 17 g potassium chloride ER tablet 40 mEq Given 11/29/2020 5:43 AM CDT 40 mEq (KLORCON/K-TAB) 40 mEq, oral, Once, On Sat11/29/20 at 0530, For 1 dose, For K<3.3-3.5 mEq/L - give total of 40 mEq Swallow whole. Do NOT crush, chew, or split tablet., Monitor the following for replacement: Potassium, Replace Potassium per: Standard Schedule prasugreL tablet 10 mg (EFFIENT) Given 12/01/2020 9:28 AM CDT 10 mg 10 mg, oral, Daily, First dose on Sat11/30/20 at 0900 Given 11/30/2020 8:01 AM CDT 10 mg propofoL (DIPRIVAN) 10 mg/mL injection - ADS Override Pull Starting on Sat11/28/20 at 0537, For 1 dose, Created by cabinet override propofol 10 mg/mL Rate/Dose Change 11/28/2020 11:41 25 mcg/kg/min 13. 5 mL/hr infusion (DIPRIVAN) AM CDT 5-80 mcg/kg/min ? 90 kg Order-specific weight (2.7-43.2 mL/hr), intravenous, Continuous, Starting on Sat11/28/20 at 0327, Type: Titrate, Initiate at: 5 mcg/kg/min., Titrate at: 5 mcg/kg/min. every 5 min., Goal: RASS -1 Rate/Dose Verify 11/28/2020 11:00 AM CDT 40 mcg/kg/min 21.6 mL/hr Rate/Dose Change 11/28/2020 10:35 AM CDT 40 mcg/kg/min 21.6 mL/hr rocuronium injection 70 mg (ZEMURON) Given 11/28/2020 4:40 AM CDT 70 mg 70 mg, intravenous, Once, On Sat11/28/20 at 0438, For 1 dose sennosides-docusate sodium 8.6-50 mg per Given 12/01/2020 8:20 P M CDT 1 tablet tablet 1 tablet (SENOKOT-S) 1 tablet, oral, 2 times daily, First dose on Sat11/30/20 at 2100 Given 11/30/2020 9:58 PM CDT 1 tablet sennosides-docusate sodium 8.6-50 mg per Given 12/05/2020 8: 31 AM CDT 2 tablets tablet 2 tablet (SENOKOT-S) 2 tablet, oral, 2 times daily, First dose (after last modification) on Sat12/02/20 at 0900 Given 12/04/2020 9:45 PM CDT 2 tablets Given 12/04/2020 8:03 AM CDT 2 tablets sodium chloride 0.9 % injection 10 mL Given 12/05/2020 8:33 AM CDT 10 mL 10 mL, intravenous, Every 12 hours scheduled, First dose on Sat11/29/20 at 2100, Peripheral Intravenous Catheter and Rapid Infusion Catheter, when no infusion to maintain patency Given 12/04/2020 10:26 PM CDT 10 mL Given 12/04/2020 8:04 AM CDT 10 mL sulfur hexafluoride microspheres injection Given 11/29/2020 10:2 3 AM CDT 4 mL (LUMASON) intravenous, As needed, contrast, Starting on Sat11/29/20 at 1022, See protocol. Reconstitute each 25 mg vial with 5 mL NS. documented in this encounter Active and Recently Administered Medications Times are shown in CDT. Scheduled Medication Order 12/03/2020 12/04/2020 12/05/2020 acetaminophen tablet 1,000 mg (TYLENOL) 0358 (Given - Provider: Luis Bautista R.N.)0908 (Given - Provider: Linda JohnsonS.NLisa, R.N., CNL)1524 (Not Given - Provider: Linda JohnsonS.N., R.N., CNL - Reason: Patient/family refused) 0248 (Given - Provider: Leora hunter R.N.)0946 (Given - Provider: Kaila Johnson.S.N., R.N., CNL)1547 (Given - Provider: Linda JohnsonS.NLisa, R.N., CNL)214 (Given - Provider: Leora Cho R.N.) 0323 (Given - Provider: Leora Cho R.N.)0903 (Given - Provider: Sydni Sun RLisaNLisa)1548 (Given - Provider: Analia Das RLisaNLisa) 1,000 mg, oral, Every 6 hours, First dos e (after last modification) on Sat11/29/20 at 1545 2126 (Given - Provider: Leora Cho R.N.) aspirin DR tablet 81 mg 2021 (Given - Provider: Leora ugarte R.N.) 2144 (Given - Provider: Leora Cho R.N.) 81 mg, oral, Daily at bedtime, First dos e on Sat11/29/20 at 2100, Swallow whole. Do NOT crush, chew, or split tablet. atorvastatin tablet 80 mg (LIPITOR) 2021 (Given - Prov ider: Leora Cho R.N.) 2144 (Given - Provider: Leora Cho R.N.) 80 mg, oral, Daily at bedtime, First dose on Sat11/29/20 at 2100 clopidogreL tablet 75 mg (PLAVIX) 0800 (Given - Provid er: Linda JohnsonS.NLisa, R.NLisa, CNL) 0803 (Given - Provider: Katelyn Johnson, R.NLisa, MARCOSL) 0832 (Given - Provider: Sydni Sun R.N.) 75 mg, oral, Daily, First dose on Sat12/03/20 at 0900 heparin (porcine) injection 5,000 Units 0626 (Given - Provider: Luis Bautista R.N.)1409 (Given - Provider: Linda JohnsonS.NLisa, R.NLisa, CNL)2125 (Given - Provider: Leora Cho R.N.) 0635 (Given - Provider: Leora Cho R.N.)1548 (Given - Provider: Linda JohnsonS.NLisa, R.NLisa, MARCSOL)2145 (Given - Provider: Leora Cho R.N.) 0623 (Given - Provider: Leora Cho R.N.)1435 (Given - Provider: Sydni Sun R.N.) 5,000 Units, subcutaneous, Every 8 hours scheduled, First dose on Sat11/28/20 at 1400 insulin aspart U-100 (Carbohydrate Count ) injection 0-20 Units (NovoLOG FlexPen) 0901 (Given - Provider: Linda JohnsonS.NLisa, R.NLisa, CNL)1304 (Given - Provider: Linda JohnsonS.NLisa, R.NLisa, MARCOSL - Comment: ordered late)1928 (Given - Provider: Leora Cho R.N. - Comment: eating dinner now) 0904 (Given - Provider: Kaila Johnson.S.N., R.NLisa, CNL)1238 (Given - Provider: Linda JohnsonS.NLisa, R.NLisa, CNL)193 (Given - Provider: Leora J Duttenhefer, R.N. - Comment: Pt just finished dinner.) 0902 (Given - Provider: Sydni Sun R.N.)1259 (Given - Provider: Fady Abreu R.N.) 0-20 Units, subcutaneous, 3 times daily with meals, First dose on Sat11/30/20 at 0815, Simple or Complex Ratio: Simple, Carb Ratio - Simple (1 unit per __ grams of carbohydrates): 10 insulin aspart U-100 injection 0-13 Units (NovoLOG Fle xPen) 0807 (Not Given - Provider: Linda JohnsonS.NLisa, R.N., CNL - Reason: Order parameters not met)1107 (Given - Provider: Linda JohnsonSLisaNLisa, R.N., CNL)1924 (Given - Provider: Leora Cho R.N. - Comment: eating dinner now) 0801 (Not Given - Provider: Jim Bradley M.S.NLisa, R.N., CNL - Reason: Order parameters not met)1235 (Given - Provider: Linda JohnsonS.NLisa, R.N., CNL) 0900 (Not Given - Provider: Sydni Sun R.N. - Reason: Other - Comment: Pt ate breakfast before RMG, ok to skip correction per DCS)1301 (Given - Provider: Fady Abreu R.N.) 0-13 Units, subcutaneous, 3 times daily, First dose on Sat11/29/20 at 0800, Insulin Scale: Moderate Correction Scale, 140 - 179: 2 units, 180 - 219: 4 units, 220 - 259: 6 units, 260 - 299: 8 units, 300 - 1 754 (Not Given - Provider: Linda JohnsonSLisaNLisa, R.N., CNL - Reason: Order parameters not met) 339: 10 units, 340 - 379: 12 units, 380 - 399: 13 units, Greater than 399: Call service writing Insulin orders insulin glargine injection 8 Units 2125 (Given - Provi monse: Leora Cho RLisaNLisa) 2100 (Given - Provider: Leora Cho R.N.) 8 Units, subcutaneous, Daily at bedtime, First dose (after last modification) on Sat12/02/20 at 2100 lidocaine 5 % 1 patch (LIDODERM) 0800 (Medication Appl ied - Provider: Katelyn Johnson, R.NLisa, MARCOSL)2037 (Medication Removed - Provider: Leora Cho R.N.) 0803 (Medication Applied - Provider: Katelyn Brunson, R.Jessica, IRV[place])2020 (Medication Removed - Provider: Leora Cho R.N.) 0832 (Medication Applied - Provider: Sydni Sun R.N.)1637 (Due: Medication Removed - Provider: Discharge Provider, Automatic - Comment: Time automatically adjusted from order being discontinued) 1 patch, transdermal, Administer over 12 Hours, Daily, First dose on Sat11/28/20 at 1245, Remove after 12 hours. losartan tablet 100 mg (COZAAR) 0803 (Gi laxmi - Provider: Katelyn Johnson, CarrieNLisa, IRVING) 0832 (Given - Provider: Sydni Sun R.N.) 100 mg, oral, Daily, First dose (after last modificati on) on Sat12/04/20 at 0900 losartan tablet 25 mg (COZAAR) (COMPLETED) 1501 (Given - Provider: Katelyn Johnson, R.NLisa, [place]) 25 mg, oral, Once, On 12/03/20 at 1230, For 1 dose losartan tablet 50 mg (COZAAR) (CANCELED) 0800 (Given - Provider: Katelyn Johnson, R.NLisa, IRV[place]) 50 mg, oral, Daily, First dose (after last modification) on Sat11/29/20 at 0900 melatonin tablet 5 mg 2021 (Given - Provider: Leora mccollum RLisaNLisa) 2144 (Given - Provider: Leora J Duttenhefer, R.N.) 5 mg, oral, Daily at bedtime, First dose on Sat12/01/20 at 2100 metoprolol tartrate tablet 25 mg (LOPRESSOR) (CANCELED ) 08 (Given - Provider: Katelyn Johnson, R.NLisa, MARCOSL) 25 mg, oral, 2 times daily, First dose on Sat11/28/20 at 2100 metoprolol tartrate tablet 50 mg (LOPRESSOR) 2021 (Giv en - Provider: Leora Cho RLisaN.) 08 (Given - Provider: Katelyn Johnson, R.NLisa, MARCOSL)2145 (Given - Provider: Leora Cho R.N.) 0832 (Given - Provider: Carrie LopezNLisa) 50 mg, oral, 2 times daily, First dose ( after last modification) on Sat12/03/20 at 2100 ebzmxzzglncl-uwwx-GM-Ca-minerals 400 mcg (folic acid) tablet 1 tablet (THERAPEUTIC-M) 799 (Given - Provider: Katelyn Johnson, R.NLisa, MARCOSL) 08 (Given - Provider: Katelyn Johnson, R.N., MARCOSL) 0832 (Given - Provider: Carrie LopezNLisa) 1 tablet, oral, Daily, First dose on Sat11/29/20 at 0900 nicotine 21 mg/24 hr 1 patch (NICODERM CQ) 0808 (Not G iven - Provider: Katelyn Johnson, R.NLisa, MARCOSL - Reason: Patient/family refused) 0802 (Not Given - Provider: Katelyn Johnson, R.N., MARCOSL - Reason: Patient/family refused) 0831 (Not Given - Provider: Sydni Sun RLisaNLisa - Reason: Patient/family refused) 1 patch, transdermal, Administer over 24 Hours, Daily, First dose on Sat11/29/[address] tablet 40 mg (PROTONIX) 0626 (Given - Provider: Luis Bautista R.N.) 0635 (Given - Provider: Leora Cho R.N.) 06 23 (Given - Provider: Leora Cho R.N.) 40 mg, oral, Daily before breakfast, Fir st dose on Sat11/30/20 at 0700, pantoprazole 40 mg oral daily was interchanged for omeprazole 20 or 40 mg oral daily Swallow whole. Do NOT crush, chew, or split tablet. polyethylene glycol powder packet 17 g (MIRALAX) 08 (Given - Provider: Katelyn Johnson, Chandan.NLisa, IRV[place]) 08 (Given - Provider: Katelyn Johnson, Chandan.NLisa, MARCOSL) 0831 (Given - Provider: Sydni Sun R.N.) 17 g, oral, Daily, First dose (after las t modification) on Sat12/02/20 at 0900, Dissolve in 240 mLs (8 ounces) of water prior to giving. Avoid mixing with starch-based thickened liquids. sennosides-docusate sodium 8.6-50 mg per tablet 2 tabl et (SENOKOT-S) 799 (Given - Provider: Linda JohnsonSKristin, Chandan.NLisa, IRV[place])2043 (Not Given - Provider: Leora Cho R.N. - Reason: Patient/family refused) 08 (Given - Provider: Linda oJhnsonSKristin, Chandan.NLisa, IRVING)2144 (Given - Provider: Leora Cho R.N.) 0831 (Given - Provider: Sydni Sun R.N.) 2 tablet, oral, 2 times daily, First dos e (after last modification) on Sat12/02/20 at 0900 sodium chloride 0.9 % injection 10 mL 0900 (Given - Pr ovider: Katelyn Johnson, Chandan.Jessica, IRV[place])2128 (Given - Provider: Leora Cho R.N.) 0804 (Given - Provider: Katelyn Johnson, R.NLisa, MARCOSL)2226 (Given - Provider: Leora Cho R.N.) 0833 (Given - Provider: Sydni Sun R.N.) 10 mL, intravenous, Every 12 hours sched uled, First dose on Sat11/29/20 at 2100, Peripheral Intravenous Catheter and Rapid Infusion Catheter, when no infusion to maintain patency PRN Medication Order 12/03/2020 12/04/2020 12/05/2020 dextrose 50 % injection 25 g 25 g, intravenous, As needed, low blood sugar, for glucose less than 80, Starting on Sat11/28/20 at 0419 diphenhydrAMINE-zinc acetate 1 % cream 1 application ( BENADRYL) 222 (Given - Provider: Leora Cho R.N.) 1235 (Given - Provider: Katelyn Johnson, R.NLisa, IRV[place])2145 (Given - Provider: Leora Cho R.N.)214 (Given - Provider: Leora Cho R.N.) 1 application, topical, 3 times daily MO N, itching, irritation, rash, Starting on Sat12/03/20 at 203 ipratropium-albuteroL 0.5-2.5 mg/3 mL nebulizer solution 3 mL (D UONEB) 3 mL, nebulization, 4 times daily PRN, w heezing, shortness of breath, Starting on Sat11/29/20 at 1543 ondansetron (PF) injection 4 mg (ZOFRAN) 4 mg, intravenous, Every 6 hours PRN, na usea, vomiting, Starting on Sat11/28/20 at 1431 oxyCODONE IR tablet 5 mg (ROXICODONE) (CANCELED) 0358 (Given - Provider: Luis Bautista RLisaNLisa) 5 mg, oral, Every 4 hours PRN, severe pa in or score 7-10 of 10, Starting on Sat11/29/20 at 0732, Hold for somnolence, RR<12/min, SpO2<88% oxyCODONE IR tablet 5 mg (ROXICODONE) 0754 (Given - Pr ovider: Kaila Johnson.S.N., R.N., CNL)1103 (Given - Provider: Kaila Johnson.S.N., R.N., CNL)1409 (Given - Provider: Jim Bradley M.S.N., R.N., CNL)1722 (Given - Provider: Jim Bradley M.S.N., R.N., CNL) 0248 (Given - Provider: Leora Cho R.N.)0635 (Given - Provider: Chandan Ragland.N.)0946 (Given - Provider: Kaila Johnson.S.N., R.N., CNL)1235 (Given - Provider: Kaila Johnson.S.N., R.N., CNL) 0323 (Given - Provider: Leora hunter, R.N.)0623 (Given - Provider: Leora Cho R.N.)0943 (Given - Provider: Sydni Sun R.N.)1258 (Given - Provider: Fady Abreu R.N.)1548 (Given - Provider: Analia Das R.NLisa) 5 mg, oral, Every 3 hours PRN, moderate pain or score 4-6 of 10, severe pain or score 7-10 of 10, Starting on 12/03/20 at 0722 2022 (Given - Provider: Leora Cho RLisaN.)2324 (Given - Provider: Leora Cho R.N.) 1547 (Given - Provider: Kaila Johnson.S.N., R.N., CNL)1934 (Given - Provider: Leora Cho R.N.)2224 (Given - Provider: Leora Cho R.N.) documented in this encounter Additional Health Concerns Infection Onset Date Last Indicated Resolved Time COVID19 Pending 11/28/2020 11/28/2020 11/28/2020 5:01 AM CDT documented as of this encounter
--- OUTSIDE RECORDS SUMMARY | 2022-04-02 01:30 | XMS_ITS | Encounter Summary ---
:1965 Author Organization [facility] Address [address] [place] [address] Care Team Providers Name Role Phone Unavailable Primary Care Provider Unavailable Reason for Visit Reason Comments Chest Pain Bradycardia Encounter Details Date Type Department Care Team Description 12/02/2020 Surgery Division of Cardiovascular Raphael Holman, Coronary Angiography Diseases in [place], M.B., B.C h. [address] [place], [place] [id number]- [phone] (Wo rk) Social History Tobacco Use Types [...] or relatives? How often do you attend samaritan or More than 4 times per year 02/09/2021 pentecostalism services? Do you belong to any clubs or Yes 02/09/2021 organizations such as samaritan groups, unions, fraternal or athletic groups, or [...] or slept in a chcf (including now)? Sex Assigned at Date Recorded Male 02/09/2021 2:11 PM CDT documented as of this encounter Last Filed Vital Signs Vital Sign Reading Time Taken Comments Blood Pressure 157/79 12/02/2020 6:30 PM CDT Pulse 84 12/02/2020 6:30 PM CDT Temperature 36.6 ??C (97.9 ??F) 12/02/2020 12:14 PM CDT Respiratory Rate 17 12/02/2020 5:45 PM CDT Oxygen Saturation 98% 12/02/2020 6:30 PM CDT Inhaled Oxygen Concentration - - Weight 93.5 kg (206 lb 2.1 oz) 12/02/2020 8:00 AM CDT Height 177 cm (5' 9.69) 11/28/2020 6:45 AM CDT Body Mass Index 29.68 11/28/2020 6:45 AM CDT documented in this encounter Discharge Summaries Prince Powers M.D. - 12/05/2020 4:36 PM CDT DISCHARGE SUMMARY BRIEF OVERVIEW Hospital: [facility] Discharge Provider: Isidro Powell M.D. Primary Team: [facility] Admission Date: 11/28/2020 Discharge Date: 12/05/2020 PRINCIPAL DIAGNOSIS Edema Pulmonary (HCC) SECONDARY DIAGNOSES Principal Problem: Multifactorial hypoxia Active Problems: Diabetes Mellitus Type 2 Hyperglycemia (HCC) Hypertension Essential Primary Coronary Stent Status Post Acute Respiratory Failure With Hypercapnia (HCC) Acute Respiratory Failure With Hypoxia (HCC) Atherosclerotic Heart Disease [place] Coronary Artery With Other Forms Angina Pectoris (Stable Angina/Angina Of Exertion) (HCC) Acute on chronic systolic heart failure Pneumothorax Unspecified Resolved Problems: * No resolved hospital problems. * Surgery Information This Encounter Past Procedures (12/05/2019 to Today) Date Procedures Providers Location 12/02/2020 Coronary Angiography Luis Wells M.D.Omer, Mohamed A, M.B., B.Ch. [facility] CCL DISCHARGE DISPOSITION Home or [...] - Requires outpatient f/u with PCP in [place]. OUTPATIENT FOLLOW UP For appointment details refer to your Patient Appointment Guide. TEST RESULTS PENDING AT DISCHARGE Pending Labs None DETAILS OF HOSPITAL STAY REASON FOR ADMISSION Edema Pulmonary (HCC) Other Pneumothorax HOSPITAL COURSE Mr. Fairbanks with history of hypertension and a recent cardiac stents placed in December presented with respiratory arrest. He is from [place] and woke up day of admission with acute onset shortness ofbreath that Mr. Fairbanks described as wet. He also reportedly noted left arm tingling and pain and was concerned he was having a heart attack. His fiance drove him to the nearest gas station where they called EMS. He arrived to the [facility] ED with Francisco Annamaria. On scene he was diaphoretic and ashen, [...] regions. Prior ECHO results from the patient's brass chaser showed an EF of 50-55% with similar [...] coronary stent and active essential hypertension. Diabetes home health care social worker educated patient on diabetes management and devised a discharge medical therapy regimen. CONSULTS ORDERED DURING THIS ADMISSION IP CONSULT TO THORACIC SURGERY IP CONSULT TO SEED CORN MANAGER PRODUCTION ARMATURE BALANCER IP CONSULT TO DIABETES IP CONSULT TO DIETITIAN IP CONSULT TO LAB ANIMAL TECHNOLOGIST IP CONSULT TO CARDIOLOGY IP CONSULT TO INTERVENTIONAL PULMONOLOGY CONDITION AT DISCHARGE improved Discharge instructions were provided to the patient and caregiver(s). Javier Chen APRN, C.N.P., D.N.P. - 11/29/2020 11:50 AM CDT SUBJECTIVE REASON FOR TRANSFER No longer needs ICU care CONDITION AT TRANSFER: Stable OBJECTIVE PHYSICAL EXAMINATION Please see daily progress note ASSESSMENT / PLAN SUMMARY OF CARE Mr. Fairbanks with history of hypertension and a recent cardiac stents placed in December presented with respiratory arrest. He is from [place] and woke up this morning with acute onset shortness of breath that Mr. Fairbanks described as wet. He also reportedly noted left arm tingling and pain and was concerned he was having a heart attack. His fiance drove him to the nearest gas station where they called EMS. He arrived to the [facility] ED with [facility]. On scene he was diaphoretic and [...] documented in this encounter Discharge Instructions Discharge Anais Sinclair - 12/05/2020 3:04 PM CDT You were [...] management, yearly follow up with a local Color Paste Mixer and Dietitian is recommended. Please check with your insurance company asdiabetes education visits are commonly covered. Your primary care provider can provide referrals foreducation. AttachmentsThe following attachments cannot be sent through Care Everywhere. Metformin (By mouth) (Montenegrin)Clopidogrel (By mouth) (Montenegrin)Acetaminophen (By mouth) (Montenegrin)Oxycodone/Acetaminophen (By mouth) (Montenegrin)Metoprolol (By mouth) (Montenegrin)Pantoprazole (By mouth) (Montenegrin)documented in this encounter Medications at Time of [...] [facility] diabetes control. metoprolol succinate TAKE 1 TABLET [...] as of this encounter Progress Notes Aleena Ervin APRN, C.N.P. - 12/05/2020 10:35 AM CDT SUBJECTIVE [...] meter, testing supplies and Metformin sent to [facility]. Discussed above plan with patient who is alert and oriented and in agreement. DCS Pager [phone] will continue to follow. Call primary service for diabetes concerns between [phone]. Primary service to contact DCS via hospital still operator whiskey for questions. Liv Martins R.R.T., L.R.T. - 12/05/2020 9:15 AM CDT 12/05/20 0915 Home Oxygen Assessment Rest/Awake Room Air SpO2 94 Percent Exercise/Activity Room Air SpO2 93 Percent Home oxygen assessment completed. Patient did not require supplemental oxygen. Electronically signed by: Liv Martins R.R.T., DignaRLisaTLisa 12/05/20 9:17 AM CDT Calixto Bella R.R.T., L.R.T. - 12/05/2020 7:56 AM CDT 12/05/20 0756 Nocturnal Oxygen Assessment Asleep Room Air SpO2 87 Percent (SpO2 87% on room air) Oxygen Flow Rate 1 L/min (1lpm oxygen via nasal cannula) Nocturnal oxygen assessment completed. Patient SpO2 87% for 5 minutes or greater. Any desaturations on trend lower than patient SpO2 is considered artifact. Christian Che - 12/05/2020 7:33 AM CDT [facility] PROGRESS NOTE SUBJECTIVE Mr. Fairbanks was resting [...] intact. No evidence of disorganizedthinking. Reliable history occasional caregiver. DIAGNOSTICS I have personally reviewed the laboratory data and imaging since admission, and in/outs for past 72 hours. (12/05/20) Nocturnal Home Oxygen Assessment: Requires 1L NC supplemental oxygen. 87% RA asleep. (12/05/20) Daytime Home Oxygen Assessment: Does not require supplemental oxygen. 94% RA quiet wakefulness and 93% RA on activity. ASSESSMENT / PLAN Mr. Fairbanks is hospitalized on [facility] for evaluation and management of multifactorial hypoxemia in the setting of left-sided pneumothorax, lung injury from pleural catheter placement, probable community- acquired pneumonia, and cardiogenic pulmonary edema from acute coronary event 11/25. Plan to d/c on 1L NC for sleep requirements. Plan to discharge today afternoon. Organize f/u with PCP in [place]. #1??Coronary artery disease with ischemic cardiomyopathy with??acute [...] 200mg OD. - Requires outpatient f/u with brass chaser from [place]. #3??Left pneumothorax-possibly??iatrogenic??after needle decompression attempt for suspected [...] to discharge criteria: Met Plan discussed with [facility] Commercial Analyst, Chase Hernandez Jr., M.D., whowas present during rosales portions of the evaluation today. Please page the [facility] service pager at #[phone] with any questions. Enjoy today Christian Che Medical Student #[id number] Associated attestation - Chase Goldstein Jr., M.D. - 12/05/2020 3:41 PM CDT I saw and evaluated the patient, participating in the rosales portions of the service. I reviewed MMSIV Christian Foxp's note and I agree with his findings [...] 12/04/2020 2:31 PM CDT SUBJECTIVE I met ecaz-ut-jgtz with and examined Mr. Fairbanks. I participated [...] 25 min. Counseling time: 15 min. Christian Alicea - 12/04/2020 8:12 AM CDT [facility] PROGRESS NOTE SUBJECTIVE Mr. Fairbanks was pleasant [...] intact. No evidence of disorganizedthinking. Reliable history occasional caregiver. DIAGNOSTICS I have personally reviewed the laboratory [...] / PLAN Mr. Fairbanks is hospitalized on [facility] for evaluation and management of multifactorial hypoxemia [...] signs and Functional status Plan discussed with [facility] Commercial Analyst, Isidro Hough M.D., who was present during rosales portions of the evaluation today. Please page the [facility] service pager at #[phone] with any questions. Enjoy today, Christian Che Medical Student #[id number] Desiree Stone M.D. - 12/03/2020 12:24 PM [...] further evaluation is warranted locally or at [facility] per patient preference and depending on clinical status. We will sign off. Please page the IP??Consult service at [phone]??with any questions or concerns. ?? The above patient was discussed with .??Papa Castillo who is in agreement??with the above [...] do not hesitate to call us at [phone] if we can be of further assistance. [...] closer to home or up here in [place] if desired. Certainly if he has further [...] another goodoption - Follow up with home brass chaser within a couple weeks, If he would like to be seen here in [place] in a couple months we can facilitate [...] No evidence of disorganized thinking. Reliable history occasional caregiver. DIAGNOSTICS I have personally reviewed laboratory data, cultures, imaging, and ECGs since admission, with rosales findings discussed below in the assessment and plan. ASSESSMENT / PLAN Mr. Fairbanks is hospitalized on [facility] for evaluation and [...] met): oxygen requirements Plan discussed with Pulmonology Commercial Analyst, Isidro Hough M.D., who was present during the rosales portions of the evaluation today. Please page the Pulmonology service pager at [phone] with any questions. Associated attestation - Isidro Powell M.D. - 12/03/2020 2:12 PM CDT I met rivc-hb-aoyp with and examined Mr. Fairbanks. I participated [...] discussed the case with Drs. Castillo and Bertha of interventional pulmonary whose help is appreciated. [...] follow. ??Please page the IP??Consult service at [phone]??with any questions orconcerns. ?? The above patient was discussed with ??Jonathan??who is??in agreement??with??the above??plan. Isidro Powell M.D. - 12/02/2020 3:48 PM CDT SUBJECTIVE I met ocvc-ny-eevj with and examined Mr. Fairbanks. I participated [...] Follow up: encouraged further outpatient follow-up. The DCS Registered Dietitian can be reached at pager: [phone] Joe Mahmood M.D. - 12/02/2020 1:08 PM [...] Christian Che - 12/02/2020 6:31 AM CDT [facility] PROGRESS NOTE SUBJECTIVE [...] are audible with no added heart sounds. Baldwin beat was not appreciated. No visible JVP distension present. Abdomen: Persistently distended. Passing flatulence but not stool since 11/28 currently on laxatives. Soft, nontender, non rigid, no guarding present. No organomegaly or masses palpated. Bowel sounds arenormoactive diffusely. Mental: Mood and affect congruent. Alert and oriented. Attention intact. No evidence of disorganizedthinking. Reliable history occasional caregiver. DIAGNOSTICS I have personally reviewed the laboratory data and imaging since admission, and in/outs for past 72 hours. Lab results remained relatively stable today. WCC 11.3 (previous 12.3). Neutrophils 6.99 (prevoius 8.94). CXR showed persistent left mlgbh-ap-tpjishro pneumothorax without mediastinal shift. Retrocardiac consolidation. Bibasilar atelectasis and probable trace left pleural effusion. Decreased left lateral chest wall subcutaneous emphysema. ASSESSMENT / PLAN Mr. Fairbanks is a 55 y.o. pleasant gentleman with a history of multivessel CAD currently hospitalized on [facility] for evaluation and [...] continuous use. Team discussed non-rebreather use following shift lab technician to i) improve SaO2 levels ii) provide benefit for current pneumothorax. - Currently at shift lab technician for diagnostic +-therapeutic coronary angiography procedure. [...] Fairbanks was educated by a nurse practitioner burlap man on diabetes management??and commenced on insulin. Provided [...] Patient currently has no active PCP in [place] or [place]. External brass chaser provided patient with information for a PCP in [place]. Advised patient on ways our service can [...] criteria (not met): Tests/procedures/consults Please page the [facility] service pager at #[phone] if you have any questions orconcerns. Plan discussed with [facility] Commercial Analyst, Isidro Hough M.D., who was present during rosales portions of the evaluation today. Enjoy today, Christian Che Medical Student #[id number] Isidro Powell M.D. - 12/01/2020 6:10 PM CDT SUBJECTIVE I met unxe-ln-wkmv with and examined Mr. Fairbanks. I participated [...] provided to and reviewed with patient/family. Disclaimers: [facility] Quality Providers: Patients and/or family/responsible democrat have been provided thelist of Providers that share their quality measures with [facility]. Reviewed insurance coverage, provided patient with in-network options if applicable. Patient/family have indicated a preference for the facility/agency below. patient declined additional resources. OBJECTIVE Anticipated modifications to the home environment: The patient's family will provide transportation upon discharge. The patient and family will drive to his home in [place]. It is about a [address] The oxygen company is aware of this. Minda reports they can service his oxygen needs in [place], [place] as well as in at his home in [place]. Patient requires the following additional equipment [...] Selected Services Address Phone Fax Patient Preferred [facility] [employer] [address] [address] [phone] -- Contact: Intake Portable tanks for transport [...] meter, testing supplies and Metformin sent to [facility]. Discussed above plan with patient who is alert and oriented and in agreement. DCS Pager [phone] will continue to follow. Call primary service for diabetes concerns between [phone]. Primary service to contact DCS via hospital still operator whiskey for questions. Christian Che - 12/01/2020 11:05 AM CDT [facility] PROGRESS NOTE SUBJECTIVE Mr. Fairbanks is a??pleasant [...] No lower extremity edema. No raised JVP. Baldwin beat was not appreciated. Abdomen: Mildly distended. Soft, flat, bowel sounds normoactive, nontender, nondistended, no palpable masses or organomegaly. Mental: Mood and affect congruent. Alert and oriented. Attention intact. No evidence of disorganizedthinking. Reliable history occasional caregiver. DIAGNOSTICS I have personally reviewed the laboratory [...] / PLAN Mr. Fairbanks is hospitalized on [facility] for evaluation and [...] Fairbanks was educated by a nurse practitioner burlap man on diabetes management and commenced on insulin. Provided with a management plan following discharge. ?? music educator and dietitian consult are pending. ? [...] patient and offered advice. Patient stated his brass chaser suggested a PCP in [place], [place]. Advised patient on waysour service can [...] criteria (not met): Tests/procedures/consults Plan discussed with [facility] Commercial Analyst, Isidro Hough M.D., who was present during rosales portions of the evaluation today. Please page the [facility] service pager at #[phone] if you have any questions. Yours sincerely, Christian Che Medical Student #[id number] Christian Ascencio M.D. - 12/01/2020 10:51 AM [...] the ICU. Staffed with Dr. Crawford. Constantino Major M.B.B.SLisa - 12/01/2020 8:33 AM CDT No acute [...] 11/30/2020 1:57 PM CDT SUBJECTIVE I met wqjd-[id number]-rvql with and examined Mr. Fairbanks. I participated [...] time: 25 min. Counseling time: 20 min. LYT Christian Che - 11/30/2020 11:44 AM CDT [facility] PROGRESS NOTE SUBJECTIVE Mr. Fairbanks is a [...] No lower extremity edema. No raised JVP. Baldwin beat was not appreciated. Abdomen: Distended. Soft, flat, bowel sounds normoactive, nontender, nondistended, no palpable masses or organomegaly. ENT: Hearing grossly intact. Dentition intact. No oral or pharyngeal erythema or lesions noted. Mental: Mood and affect congruent. Alert and oriented. Attention intact. No evidence of disorganizedthinking. Reliable history occasional caregiver. DIAGNOSTICS I have personally reviewed the laboratory [...] / PLAN Mr. Fairbanks is hospitalized on [facility] for evaluation and management of Edema Pulmonary [...] Primary ?? Received documentation from Mr. Fairbanks's brass chaser for previous ECHO studies regarding cardiac stenting [...] Diabetes Mellitus Type 2 Hyperglycemia A1c 10.3% ([facility]) ?? Mr. Fairbanks was educated by a nurse practitioner burlap man on diabetes management and commenced on insulin. music educator and dietitian consult are pending. ? [...] patient and offered advice. Patient stated his brass chaser suggested a PCP in [place]. Advised patient on ways our service can be of assistance. Current Activity/Mobility: BMAT Level 4 (Able to stand and walk; needs staff assist if fall risk factors identified) Diet: diabetic diet Tubes/lines: PIV VTE prophylaxis: heparin (porcine) injection 5,000 units subcutaneous q8H Disposition: Uncertain with expected discharge date Stable to discharge criteria (not met): Tests/procedures/consults Plan discussed with [facility] Commercial Analyst, Isidro Hough M.D., who was present during rosales portions of the evaluation today. Please page [place] [facility] [place] [phone] with any questions. Christian Che Medical Student #[id number] Kishore Monet M.D. - 11/30/2020 7:27 AM CDT No major issues overnight. Patient transferred from ICU yesterday. Pigtail was removed yesterday andCT remains in place. Assessed the chest tube this morning. No air leak present. 425 cc output. Chesttube placed to water seal on evaluation this morning. If no air leak and output appropriate, will likely remove tomorrow. Christian Alicea 11/29/2020 3:20 PM CDT SUBJECTIVE CC: Pulmonary [...] edema present. JVP distention was not visible. Baldwin beat was not palpable. Abdomen: Distended, soft [...] intact. No evidence of disorganizedthinking. Reliable history occasional caregiver. ASSESSMENT / PLAN Mr. Fairbanks is a [...] Essential Primary Plan on consulting Mr. Fairbanks's brass chaser for further information regarding cardiac stenting history. [...] Fairbanks was educated by a nurse practitioner burlap man on diabetes management. He has been commenced [...] care monitoring needs Plan discussed with Pulmonary Commercial Analyst, Dr. Powell, who was present during rosales portions of the evaluation today. [place] [phone] with any questions. Christian Che Medical Student #[id number] LYT Kelsi Aguilar M.D. - 11/29/2020 10:16 AM [...] the systems based plan of care. Constantino Wilsno M.B.B.S. - 11/29/2020 9:10 AM CDT Of are [...] after pigtail removal. - Family updated?? Trinidad Momin, R.R.T., L.R.T. - 11/28/2020 4:48 AM CDT [...] Report called to MICU RT. Wanda Ruano L.G.S.W., M.S.W. - 11/28/2020 4:16 AM CDT SUBJECTIVE Patient presents as a trauma page from [facility] for medical work up. Patient is not assessed due toreceiving urgent medical evaluation. Patient was found down at [facility] in [place], [place]. and family were with him and they called 911. When EMS arrived they made the decision to life flight him to [facility] for medical work up.Patient was intubated and sedated upon arrival. Patient's real name is Julio Whaley garry 1965. Patient's is on her way ([facility] - [phone]) OBJECTIVE Emergency Department drug abuse social worker responded to the trauma bay in the context of a trauma page. Unidentified Ana Gaxiola was brought by [facility] Helicopter method of transport. ASSESSMENT / PLAN ASSESSMENT Patient is not currently alert/oriented? No further needs identified. A full psychosocial assessmentwas not completed due to the nature of the medical evaluation. PLAN Please contact social work should any needs arise. Ezio Jackson, M.S.W. 11/28/2020 documented in this encounter H&P [...] He was quickly intubated and transferred to [facility]. He was sedated and paralyzed.Noted to have [...] time which has been billed separately. Javier Chen APRN, C.N.P., D.N.P. - 11/28/2020 7:46 AM CDT SUBJECTIVE CHIEF COMPLAINT Mason Fairbanks is a 55 y.o. male who presents with acute respiratory failure HISTORY OF PRESENT ILLNESS Mr. Fairbanks with history of hypertension and a recent cardiac stents placed in December presented with respiratory arrest. He is from [place] and woke up this morning with acute onset shortness of breath that Mr. Fairbanks described as wet. He also reportedly noted left arm tingling and pain and was concerned he was having a heart attack. His fiance drove him to the nearest gas station where they called EMS. He arrived to the [facility] ED with [facility]. On scene he was diaphoretic and [...] (HCC) #6 Acute Respiratory Failure With Hypoxia ([facility]) Mr. Fairbanks presents with acute hypercapnic and [...] oximetry Krystian Cason M.D. 11/28/20 0637 Luis Santoro R.R.T., L.R.TLisa - 11/28/2020 5:45 AM CDTAssociated Order(s): Place [...] PULMONARY CONSULT SERVICE CONSULT NOTE REFERRING SERVICE [facility] REASON FOR CONSULT Left-sided pneumothorax. HISTORY OF [...] planning on taking the patient to the shift lab technician for angio tomorrow. Recommendation: 1. No [...] follow. ??Please page the IP??Consult service at [phone]??with any questions or concerns. ?? The above [...] 6:24 PM CDTAssociated Order(s): IP CONSULT TO SEED CORN MANAGER PRODUCTION ARMATURE BALANCER Encounter: Spiritual care Situation: Mr. Fairbanks asked for prayers for healing so that he could go home. He was able to recognize that he has improved quite a bit from the time he came in the hospital via helicopter. Family: He had 1 family member with him Elaine Tradition: Mr. Fairbanks is a [employer] who currently attends a [employer] in [place]. Prayers were said with the patient and his family member. Plan: Will remain available for spiritual care as needed or requested. Chaplains can be [facility] [phone] ([place]). Christian Ascencio M.D. - 11/30/2020 4:53 PM [...] LVH, apical akinesis, trivial TR. Since his CA , he has been chest pain free. Two weeks prior to presentation to [facility], he began experiencing intermittent episodes of chest pain and left arm burning very similar to his previous CA. the day prior to presentation, he had [...] water seal. He smoked until his last CA. no alcohol or drug use. Lives part-time in [place] and part-time in [place]. PAST MEDICAL/SURGICAL HISTORY See above SOCIAL HISTORY [...] Gatherings with Friends and Family: ??? Attends Catholic Services: ??? Active Member of Clubs or [...] patient lives with his . Spirituality / Voodoo / Culture: None Psychosocial Risk Factors impacting the patient: none Abuse, Neglect, Maltreatment, Trauma: Current: Patient denied. ENVIRONMENTAL SUPPORTS Current Living Situation: The patient lives in [place], but reports also having a home in [facility]. Anticipated modifications to the patient's home environment: [...] Skills/Strengths Family support ASSESSMENT / PLAN DISCUSSION Toll Service Observer met with the patient/family to complete psychosocial assessment, provide ongoing emotional support, and to discuss psychoeducation of resources. Introduced Social Work and their role in the inpatient setting. Informed patient/family of Social Work's legal responsibility as a mandated market reporter and what that entails in regards to [...] identified. Ghada Baker, M.S.W. 11/29/2020 Jelani Kirkpatrick APRN, C.N.P., D.N.P. - 11/29/2020 12:05 PM CDTAssociated Order(s): IP CONSULT TO DIABETES SUBJECTIVE Diabetes consult (hospital) Referring Provider: Sheridan Good APRN, C.N.P. CHIEF COMPLAINT Patient seen today for management [...] glycemic goal. - Consults: Diabetes Educators and Check Cashier ANTICIPATED DISMISSAL PLAN: Given elevated A1c and [...] Thank you for the consult. DCS Pager [phone] will follow. Call primary service for diabetes concerns between [phone]. Primary service to contact DCS via hospital still operator whiskey for questions. Nacho Torres M.D. - 11/28/2020 10:36 AM CDTAssociated Order(s): Thoracic Surgery consult (hospital) SUBJECTIVE Thoracic Surgery consult (hospital) Referring Provider: Sheridan Good APRN, C.NJak Reason for Consult: Intraparenchymal pigtail catheter Primary [...] per record Allergies None Social Lives in [place]. [facility] [place] [facility] of incident. The following portions [...] for further management. We placed a 28 Frisian left chest tube at the bedside. Please see procedure note for additional details. Postplacement x-ray demonstrates the tube is in the chest, though the side hole is adjacent chest wall. This was repositioned and subsequent CXR demonstrated good position. The pigtail catheter was clamped. Recommendations: -Maintain 28 Frisian chest tube to suction -20 cm water -Keep pigtail catheter clamped. -Tomorrow we will remove the pigtail catheter and anticipate removing the chest tube in 24-48 hours if no significant bleeding or leak. [facility] Surgery Patient seen and evaluated with Dr. [...] Summary: See above for details. Jim Bradley M.S.NLisa, R.NLisa, IRVING - 12/04/2020 4:57 PM CDT Shift Goals: [...] with saturations in low 90s. Jalyn Vences M.S.N., R.N. - 11/30/2020 6:02 PM CDT Problem: [...] NC. Continue on PO abx. Hernan Taylor R.N. - 11/29/2020 7:42 PM CDT Shift Goals: [...] Note Patient transferred to: DOM6B Accompanied by: ENGINEERING OFFICER Report called? YES Nurse receiving report: TERENCE [...] aware of current vital signs? YES Nadia Sotelo R.R.T., RachelR.T., L.R.T. - 11/29/2020 5:27 AM CDT Mason [...] Right Radial (Active) Placement Date/Time: 11/28/20 (c) 7843 Hand Hygiene Performed Prior to Insertion: Yes Site Prep: Chlorhexidine (Preferred) Sterile Barriers Used : Cap;Gloves;Gown;Large drape;Mask (Clinician);Mask (Allothers in room) Size: 20 G Orientation: Rig... Social History Tobacco Use Smoking Status Not on file Electronically signed by: Nadia Sotelo R.R.T., RachelR.T., L.R.T. 11/29/20 5:27 AM CDT Vanessa Logan R.R.T. - 11/28/2020 3:57 PM CDT Patient is a 55 y.o. male admitted on 11/28/2020 Alert Information: Plan of Care: Patient was extubated to [place] and has tolerated well, strong cough. Will continue to monitor and assess while in the ICU. Principal Problem Edema Pulmonary (HCC) Oxygen Therapy $Delivery Method: Nasal cannula Arterial Line 11/28/20 Right Radial (Active) Placement Date/Time: 11/28/20 (c) 8803 Hand Hygiene Performed Prior to Insertion: Yes Site Prep: Chlorhexidine (Preferred) Sterile Barriers Used : Cap;Gloves;Gown;Large drape;Mask (Clinician);Mask (Allothers in room) Size: 20 G Orientation: Rig... Social History Tobacco Use Smoking Status Not on file Recent Labs 11/28/20 1112 PO2 ART 113 H PCO2 ART 50 H PH ART 7.36 Deena Gray LLisaR.T. - 11/28/2020 6:21 AM CDT Patient is a 55 y.o. male admitted on 11/28/2020 Alert Information: Plan of Care: Assess respiratory status, maintain airway, monitor hemodynamics, wean oxygen as tolerated, suction as needed Patient arrived from the ED after being brought to [facility] via [facility], report is patient had acute onset of SOB, left arm numbness and chest pain, [facility] arrived and placed on PAP and patient [...] Right Radial (Active) Placement Date/Time: 11/28/20 (c) 4266 Hand Hygiene Performed Prior to Insertion: Yes [...] distress. Patient was brought in by the [facility] crew, who provides history. At the scene, [...] Heimlich flutter valve was replaced with the Kym tree attachment, lung sliding was now seen, [...] estimated age 40s to 50s flown via [facility] from scene due to concern for cardiogenic shock. Per report, patient is from [place] and has a history of recent cardiacstenting. He reported new onset difficulty breathing tonight and felt like his lungs were wet. Hisfiance drove him to the nearest gas station and EMS was called. [facility] was dispatched due to concern for ACS and on arrival his saturations were in the 40s. Unknown initial blood pressure. [facility] trialed BiPap with no success and intubated him with ketamine and rocuronium. He was started on nitroglycerin drip and transported to [facility]. [facility] reported SpO2 90% after intubation with high [...] persistently hypertensive at home with BP monitoring,although fiance could not recall specific numbers. DIFFERENTIAL DIAGNOSIS Pulmonary edema, ACS, pneumonia, URI, COVID19, sepsis ED Course as of Nov 28 0558 Mon Nov 28, 2020 0440 Hepatic Function [...] stopped Final Diagnoses: as of Nov 28 0558 Edema Pulmonary (HCC) Other Pneumothorax Hubert Smith M.D. Resident 11/28/20 0824 documented in this encounter Miscellaneous Notes Hospital Course - Christian Che - 11/29/2020 10:56 AM CDT Mr. Fairbanks with history of hypertension and a recent cardiac stents placed in December presented with respiratory arrest. He is from [place] and woke up day of admission with acute onset shortness ofbreath that Mr. Fairbanks described as wet. He also reportedly noted left arm tingling and pain and was concerned he was having a heart attack. His fiance drove him to the nearest gas station where they called EMS. He arrived to the [facility] ED with Francisco Annamaria. On scene he was diaphoretic and ashen, [...] regions. Prior ECHO results from the patient's brass chaser showed an EF of 50-55% with similar [...] coronary stent and active essential hypertension. Diabetes home health care social worker educated patient on diabetes management and devised a discharge medical therapy regimen. Patient will need to follow up as an outpatient with their new PCP in [place]. documented in this encounter Plan of Treatment [...] for CATHETERIZATION 5:47 PM CDT Heart Disease [place] this procedure Coronary Artery With are in [...] this procedure are in the results section. [place] TUBE Routine 11/28/2020 Other Pneumothorax Results [...] (12/05/2020 12:09 PM CDT) Analysis Performed At [facility] Time Signature Glucose, POCT, 190 (H) 70 [...] Address City/State/ZIP Code Phon e Number POC [facility] [address] [place] [address] [facility] [place] [address] [place] [facility] [address] (ABNORMAL) Glucose, POCT (12/05/2020 8:26 AM CDT) Analysis Performed At [facility] Time Signature Glucose, POCT, 157 (H) 70 [...] Address City/State/ZIP Code Phon e Number POC [facility] [address] [place] [address] [facility] [place] [address] [place] [facility] [address] [facility] (ABNORMAL) CBC with Differential, Blood (12/05/2020 6:58 AM CDT) [facility] Method Time Signature Hemoglobin 12.1 (L) 13.2 [...] Laterality Blood (Blood, 12/05/2020 6:58 AM 12/06/19 7:34 Venous) CDT AM CDT Esthela Ryder M.D. LAB BLOOD ADD-ON Performing Organization Address City/State/ZIP Code Phon e Number [facility] [address] [address] [facility] [place] [address] [facility] 200 [facility] Basic Metabolic Panel (12/05/2020 6:58 AM CDT) [...] 12/05/2020 DTL Black/ mL/min/BSA 8:18 AM CDT Indian Comment: ----ADDITIONAL INFORMATION---- Estimated GFR calculated using [...] M.D. LAB BLOOD ADD-ON Performing Organization Address City/[facility]/ZIP [facility] Phon e Number [facility] - [address] [place], [place] [address] [facility] [place] [address] [facility] [address] (ABNORMAL) Glucose, POCT (12/04/2020 10:04 PM CDT) [...] Provider LAB POCT ORDERABLES-MANUAL Performing Organization Address City/[facility] Phon e Number POC [facility] [address] [place] [address] [place] [address] [place] [facility] [address] Glucose, POCT (12/04/2020 5:54 PM CDT) Analysis [...] Provider LAB POCT ORDERABLES-MANUAL Performing Organization Address City/[facility] Phon e Number POC [facility] [address] [place] [address] [place] [address] [place] [facility] [address] (ABNORMAL) Glucose, POCT (12/04/2020 12:37 PM CDT) Analysis Performed At Patho logis Time Signature Glucose, POCT, 204 (H) 70 - 140 12/04/2020 [facility] B mg/dL 12:47 PM CDT Last Intake 3-4 hours 12/04/2020 [facility] 12:47 PM CDT Specimen Anatomical Collection Method Collection Time Receive d Time (Source) Location / / Volume Laterality Blood 12/04/2020 12:37 12/04/2020 PM CDT 12:47 PM CDT Unknown Provider LAB POCT ORDERABLES-MANUAL Performing Organization Address City/[facility]/ZIP [facility] Phon e Number POC [facility] [address] [place] [address] [place] [address] [place] [facility] [address] [facility] Glucose, POCT (12/04/2020 7:44 AM CDT) Analysis Performed At [facility] Signature Glucose, POCT, 116 70 - 140 12/04/2020 [facility] B mg/dL 7:53 AM CDT Site Capillary 12/04/2020 [facility] 7:53 AM CDT Last Intake > 4 hours 12/04/2020 [facility] 7:53 AM CDT Specimen Anatomical Collection Method Collection Time Receive d Time (Source) Location / / Volume Laterality Blood 12/04/2020 7:44 AM 7:53 CDT AM CDT Unknown Provider LAB POCT ORDERABLES-MANUAL Performing Organization Address City/[facility] Phon e Number [facility]OC [facility] [address] [place] [address] [place] [address] [place] [facility] [address] [facility] (ABNORMAL) Glucose, POCT (12/03/2020 9:24 PM CDT) Analysis Performed At Path logis Time Signature Glucose, POCT, 187 (H) 70 [...] Address City/State/ZIP Code Phon e Number [facility] [address] [place] [address] [place] [address] [place] [facility] [address] [facility] (ABNORMAL) Glucose, POCT (12/03/2020 5:20 PM CDT) [...] Provider LAB POCT ORDERABLES-MANUAL Performing Organization Address City/State/[facility] Code Phon e Number [facility]OC [facility] [address] [place] [address] [place] [address] [place] [facility] [address] [facility] (ABNORMAL) Glucose, POCT (12/03/2020 11:04 AM CDT) [...] Address City/State/ZIP Code Phon e Number [facility] [address] [place] [address] [place] [address] [place] [facility] [address] [facility] DX Chest AP or PA and Lateral [...] lower lateral chest wall. Aortic calcification. Phuong Lemus M.D. IMG DIAGNOSTIC IMAGING PROCE CAROL ANN Glucose, POCT [...] Address City/State/ZIP Code Phon e Number [facility] [address] [place] [address] [facility] [place] [address] [place] [facility] [address] (ABNORMAL) CBC with Differential, Blood (12/03/2020 6:34 AM CDT) [facility] Method Time Signature Hemoglobin 12.4 (L) [...] Laterality Blood (Blood, 12/03/2020 6:34 AM 12/04/19 21 7:16 Venous) CDT AM CDT Phuong Lemus M.D. LAB BLOOD ADD-ON Performing Organization Address City/State/ZIP Code Phon e Number [facility] - [address] [place], [place] [address] [facility] [place] [address] [facility] 200 [facility] Basic Metabolic Panel (12/03/2020 6:34 AM CDT) [...] 12/03/2020 DTL Black/ mL/min/BSA 8:01 AM CDT Indian Comment: ----ADDITIONAL INFORMATION---- Estimated GFR calculated using [...] [facility] [address] [place], [place] [address] [facility] [place] [address] [facility] [address] SARS-CoV-2 Nucleocapsid Total Ab, S (12/03/2020 6:33 AM CDT) Patholo gist Method Time Signature SARS-CoV-2 Negative Negative 12/03/2020 [...] was performed using the [employer] [id number] Reagent assay from [employer], which has received Emergency Use Authori zation(EUA) by the U.S. Food and Drug Administration . Fact sheets for this Emergency Use Autho rization (EUA) assay can be found at the following link s: For Healthcare Providers: https://www.fda.gov/media/461954/downloa d For Patients: https://www.fda.gov/media/774318/downloa d Specimen Anatomical Collection Method Collection Time Receive d Time (Source) Location / / Volume Laterality Blood (Blood, 12/03/2020 6:33 AM 12/04/19 21 4:19 Venous) CDT PM CDT Prince Powers M.D. LAB MICROBIOLOGY - BLOOD ORD ERABLES Performing Organization Address City/State/ZIP Code Phon e Number [facility] - [address] [place], [place] [address] [facility] [place] [address] [facility] [address] (ABNORMAL) Glucose, POCT (12/02/2020 9:06 PM CDT) [...] Address City/State/ZIP Code Phon e Number [facility] [address] [place] [address] [facility] [place] [address] [place] [facility] [address] CORONARY ANGIOGRAPHY (12/02/2020 5:47 PM CDT) Anatomical [...] (12/02/2020 3:25 PM CDT) Analysis Performed At Patho logist Time Signature Glucose, POCT, 104 70 - 140 12/02/2020 [facility] B mg/dL 3:27 PM CDT Site Capillary 12/02/2020 [facility] 3:27 PM CDT Last Intake NPO 12/02/2020 [facility] 3:27 PM CDT Specimen Anatomical Collection Method Collection Time Receive d Time (Source) Location / / Volume Laterality Blood 12/02/2020 3:25 PM 3:27 CDT PM CDT Unknown Provider LAB POCT ORDERABLES-MANUAL Performing Organization Address City/[facility] Phon e Number [facility] [address] [place] [address] [place] [address] [place] [facility] [address] [facility] Glucose, POCT (12/02/2020 12:12 PM CDT) Analysis Performed At [facility] Time Signature Glucose, POCT, 105 70 - [...] Provider LAB POCT ORDERABLES-MANUAL Performing Organization Address [facility] Phon e Number [facility]OC [facility] [address] [place] [address] [place] [address] [place] [facility] [address] [facility] Glucose, POCT (12/02/2020 8:14 AM CDT) Analysis Performed At Path logis Time Signature Glucose, POCT, 128 70 - 140 12/02/2020 [facility] B mg/dL 8:38 AM CDT Last Intake > 4 hours 12/02/2020 [facility] 8:38 AM CDT Specimen Anatomical Collection Method Collection Time Receive d Time (Source) Location / / Volume Laterality Blood 12/02/2020 8:14 AM 8:39 CDT AM CDT Unknown Provider LAB POCT ORDERABLES-MANUAL Performing Organization Address City/[facility] Phon e Number [facility] [address] [place] [address] [facility] [place] [address] [place] [facility] [address] DX Chest AP or PA and Lateral 2 Views (12/02/2020 8:00 AM CDT) Anatomical Region Laterality Modality Chest, Thoracic RST LOS, Thoracic ARZ LOS, Thoracic N/A Digital Radiography FLA LOS Specimen (Source) Anatomical Collection Method Collection Time Re ceived Time Location / / Volume Laterality 12/02/2020 8:03 AM CDT Impressions 12/02/2020 8:12 AM CDT Since 12/01/2020, stable appearing left [id number] pneumothorax without mediastinal shift. Retrocardiac consolidation/atelectasis and probable trace left pleural effusion . Normal cardiac contour. Right-sided basilar atelectasis without pneumothorax or effusion. Decreased left lateral chest wall subcutaneous emphysema. Narrative 12/02/2020 8:12 AM CDT EXAM: ??DX CHEST AP OR PA AND LATERAL 2 VIEWS Procedure Note Derek Chu M.D. - 12/02/2020Formatt ing of this note might be different from the original. EXAM: DX CHEST AP OR PA AND LATERAL 2 EWS IMPRESSION: Since 12/01/2020, stable appearing left [id number]-[id number] pneumothorax without mediastinal shift. Retrocardiac consolidation/atelectasis and probable trace left pleural effusion . Normal cardiac contour. Right-sided basilar atelectasis without pneumothorax or effusion. Decreased left lateral chest wall subcutaneous emphysema. Prince MÉNDEZ DIAGNOSTIC IMAGING PROCE DURES (ABNORMAL) CBC with Differential, Blood (12/02/2020 7:38 AM CDT) [facility] Method Time Signature Hemoglobin 11.9 (L) 13.2 [...] Number [facility] - [address] [place], [place] [address] [facility] [place] [address] [facility] 200 [facility] Basic Metabolic Panel (12/02/2020 7:38 AM CDT) [...] 12/02/2020 DTL Black/ mL/min/BSA 8:30 AM CDT Indian Comment: ----ADDITIONAL INFORMATION---- Estimated GFR calculated using [...] e Number [facility] - [address] [address] [facility] [place] [address] [facility] [address] [facility] (ABNORMAL) Glucose, POCT (12/01/2020 9:22 PM CDT) [...] Provider LAB POCT ORDERABLES-MANUAL Performing Organization Address City/[facility]/ZIP Code Phon e Number [facility] [address] [place] [address] [place] [address] [place] [facility] [address] [facility] Glucose, POCT (12/01/2020 5:31 PM CDT) Analysis [...] Provider LAB POCT ORDERABLES-MANUAL Performing Organization Address [facility]/ZIP [facility] Phon e Number [facility]OC [facility] [address] [place] [address] [place] [address] [place] [facility] [address] [facility] DX Chest AP or PA and Lateral [...] telectasis. Constantino Arellano IMG DIAGNOSTIC IMAGING PROCE DURES Glucose, POCT (12/01/2020 11:35 AM CDT) Analysis Performed At Patho logist Time Signature Glucose, POCT, 121 70 - 140 12/01/2020 [facility] B mg/dL 11:41 AM CDT Site Capillary 12/01/2020 [facility] 11:41 AM CDT Specimen Anatomical Collection Method Collection Time Receive d Time (Source) Location / / Volume Laterality Blood 12/01/2020 11:35 12/01/2020 AM CDT 11:41 AM CDT Unknown Provider LAB POCT ORDERABLES-MANUAL Performing Organization Address City/[facility]/ZIP Code Phon e Number [facility] [address] [place] [address] [place] [address] [place] [facility] [address] [facility] (ABNORMAL) Glucose, POCT (12/01/2020 9:33 AM CDT) Analysis Performed At Patho logist Time Signature Glucose, POCT, 153 (H) 70 - 140 12/01/2020 [facility] B mg/dL 9:36 AM CDT Site Capillary 12/01/2020 [facility] 9:36 AM CDT Last Intake NPO 12/01/2020 [facility] 9:36 AM CDT Specimen Anatomical Collection Method Collection Time Receive d Time (Source) Location / / Volume Laterality Blood 12/01/2020 9:33 AM 9:37 CDT AM CDT Unknown Provider LAB POCT ORDERABLES-MANUAL Performing Organization Address City/[facility]/ZIP [facility] Phon e Number [facility] [address] [place] [address] [place] [address] [place] [facility] [address] [facility] DX Chest AP or PA and Lateral [...] Esthela Ryder M.D. IMG DIAGNOSTIC IMAGING PROCE CAROL ANN APTT (Activated Partial Thromboplastin Time) (12/01/2020 7:04 AM CDT) athologist Signature Activated 29 25 - 37 sec 12/01/2020 DTL Partial 8:23 AM CDT Thrombopl Time, P Specimen Anatomical Collection Method Collection Time Receive d Time (Source) Location / / Volume Laterality Blood (Blood, 12/01/2020 7:04 AM 12/02/19 7:53 Venous) CDT AM CDT Aniyah Roberson M.D. LAB BLOOD ADD-ON Performing Organization Address City/State/ZIP Code Phon e Number [facility] - [address] [place], [place] [address] [facility] [place] [address] [facility] [address] [facility] Prothrombin Time (PT) (12/01/2020 7:04 AM CDT) [...] Laterality Blood (Blood, 12/01/2020 7:04 AM 12/02/19 7:53 Venous) CDT AM CDT Aniyah Roberson M.D. LAB BLOOD ADD-ON Performing Organization Address City/[facility] Phon e Number [facility] - [address] [address] [facility] [place] [address] [address] (ABNORMAL) CBC without Differential (12/01/2020 7:04 AM CDT) [facility] gist Method Time Signature Hemoglobin 12.6 (L) [...] Laterality Blood (Blood, 12/01/2020 7:04 AM 12/02/19 7:53 Venous) CDT AM CDT Aniyah Roberson M.D. LAB BLOOD ADD-ON Performing Organization Address City/[facility] Code Phon e Number [facility] - [address] [place], [place] [address] [facility] [place] [address] [facility] [address] [facility] (ABNORMAL) Basic Metabolic Panel (12/01/2020 7:04 AM [...] 12/01/2020 DTL Black/ mL/min/BSA 8:35 AM CDT Indian Comment: ----ADDITIONAL INFORMATION---- Estimated GFR calculated using [...] e Number [facility] - [address] [place] [address], [place] [address] [facility] [place] [address] [facility] [address] [facility] (ABNORMAL) Glucose, POCT (11/30/2020 9:55 PM CDT) [...] Address City/State/ZIP Code Phon e Number [facility] [address] [place] [address] [facility] [place] [address] [place] [facility] [address] [facility] pH, Urine (11/30/2020 5:43 PM CDT) P athologist Signature pH, U 5.3 4.5 - 8.0 11/30/2020 8:56 DTL PM CDT Specimen Anatomical Collection Method Collection Time Receive d Time (Source) Location / / Volume Laterality Urine 11/30/2020 5:43 PM 6:06 CDT PM CDT Esthela Ryder M.D. LAB URINE ORDERABLES Performing Organization Address City/State/ZIP [facility] Phon e Number [facility] - [address] [place], [place] [address] [facility] [place] [address] [facility] [address] [facility] (ABNORMAL) Microscopic Automated (11/30/2020 5:43 PM CDT) Analysis Performed At Patho logist Time Signature Microscopy Abnormal 11/30/2020 DTL 6:35 [...] M.D. LAB URINE ORDERABLES Performing Organization Address [facility] Phon e Number [facility] - [address] [place] [address] Osmolality, Urine (11/30/2020 5:43 PM CDT) P athologist Signature Osmolality, U 492 150 - 1150 11/30/2020 DTL mOsm/kg 8:56 PM CDT Specimen Anatomical Collection Method Collection Time Receive d Time (Source) Location / / Volume Laterality Urine 11/30/2020 5:43 PM 6:06 CDT PM CDT Esthela Ryder M.D. LAB URINE ORDERABLES Performing Organization Address City/[facility] Phon e Number [facility] - [address] (ABNORMAL) Dipstick, Urine (11/30/2020 5:43 PM CDT) Patholo gist Method Time Signature Hemoglobin, Small (A) Negative [...] M.D. LAB URINE ORDERABLES Performing Organization Address City/[facility] Phon e Number [facility] - 200 [place], [place] [address] [facility] [place] [place] [address] [address] Urinalysis with Microscopic: Urine, Midstream (11/30/2020 5:43 PM CDT) Patholo gist Method Time Signature Source Urine, Urine, 11/30/2020 [...] M.D. LAB URINE ORDERABLES Performing Organization Address City/[facility] Phon e Number [facility] - 200 [place], [place] [address] [facility] [place] [address] [address] (ABNORMAL) Glucose, POCT (11/30/2020 5:20 PM CDT) [...] Address City/State/ZIP Code Phon e Number [facility] [address] [place] [address] [place] [address] [place] [facility] 200 [facility] (ABNORMAL) Glucose, POCT (11/30/2020 11:41 AM CDT) [...] Address City/State/ZIP Code Phon e Number [facility] [address] [place] [address] [place] [address] [place] [facility] 200 [facility] (ABNORMAL) Glucose, POCT (11/30/2020 7:35 AM CDT) [...] Address City/State/ZIP Code Phon e Number [facility] [address] [place] [address] [place] [address] [place] [facility] 200 [facility] Calcium, Ionized (11/30/2020 12:06 AM CDT) athologist Signature Calcium, 4.85 4.57 - 5.43 11/30/2020 DTL Ionized, S mg/dL 1:20 AM CDT Comment: ----ADDITIONAL INFORMATION---- This test has been modified from the man ufacturer's instructions. Its performance characteri stics were determined by [facility] in a manner co nsistent with CLIA [...] LAB BLOOD NON ADD-ON Performing Organization Address City/[facility] Code Phon e Number [facility] - [address] Phosphorus Inorganic (11/30/2020 12:06 AM CDT) athologist Signature Phosphorus 3.6 2.5 - 4.5 11/30/2020 DTL (Inorganic), S mg/dL 1:17 AM CDT Specimen Anatomical Collection Method Collection Time Receive d Time (Source) Location / / Volume Laterality Blood (Blood, 11/30/2020 12:06 11/30/2020 Venous) AM CDT 12:45 AM CDT Aniyah Roberson M.D. LAB BLOOD ADD-ON Performing Organization Address City/[facility] Phon e Number [facility] - 200 [place] [id number] Magnesium (11/30/2020 12:06 AM CDT) athologist [...] Number [facility] - 200 [place], [place] [address] [facility] [place] [address] [facility] 200 [facility] (ABNORMAL) CBC with Differential, Blood (11/30/2020 12:06 AM CDT) [facility] Method Time Signature Hemoglobin 11.7 (L) [...] Number [facility] - 200 [place], [place] [address] [facility] [place] [address] [facility] 200 [facility] Basic Metabolic Panel (11/30/2020 12:06 AM CDT) [...] 11/30/2020 DTL Black/ mL/min/BSA 1:17 AM CDT Indian Comment: ----ADDITIONAL INFORMATION---- Estimated GFR calculated using [...] M.D. LAB BLOOD ADD-ON Performing Organization Address City/State/[facility] Phon e Number [facility] - 200 [place], [place] [address] [facility] [place] [address] [facility] 200 [facility] (ABNORMAL) Glucose, POCT (11/29/2020 10:17 PM CDT) [...] Provider LAB POCT ORDERABLES-MANUAL Performing Organization Address City/[facility] Code Phon e Number [facility] 200 [place] [address] [place] [address] [place] [facility] 200 [facility] (ABNORMAL) Glucose, POCT (11/29/2020 6:09 PM CDT) [...] Address City/State/ZIP Code Phon e Number [facility] 200 [place] [address] [place] [address] [place] [facility] 200 [facility] (ABNORMAL) Glucose, POCT (11/29/2020 12:20 PM CDT) Analysis Performed At [facility] Time Signature Glucose, POCT, 232 (H) 70 - 140 11/29/2020 [facility] B mg/dL 12:22 PM CDT Site Capillary 11/29/2020 [facility] 12:22 PM CDT Specimen Anatomical Collection Method Collection Time Receive d Time (Source) Location / / Volume Laterality Blood 11/29/2020 12:20 11/29/2020 PM CDT 12:23 PM CDT Unknown Provider LAB POCT ORDERABLES-MANUAL Performing Organization Address [facility] Code Phon e Number [facility] [address] [place] [address] [place] [address] [place] [facility] 200 [facility] (TTE) 2D ECHO DOPPLER COLOR AND CONTRAST (11/29/2020 10:21 AM CDT) Analysis Performed At [facility] Time Signature Ejection Fraction 44 MC CV [...] Echocardiography Contra st Administration Protocol Reference Document [id number]. Patient met an inclusion cri terion and did not have contraindications in screening sections. For the complete report, see the [employer] Documents. Narrative 11/29/2020 4:30 PM CDT For [...] No previous studies available for com parison. Procedure Note Guerda Calix M.D., Ph.D. - 11/29/2020 For the complete report, see the [employer] Documents. Final Impressions 1. Mildly enlarged left [...] Echocardiography Contra st Administration Protocol Reference Document [id number]. Patient met an inclusion cri terion and did not have contraindications in screening sections. For the complete report, see the [employer] Documents. Aniyah Roberson M.D. CV ECHO PROCEDURES (ABNORMAL) Glucose, POCT (11/29/2020 8:07 AM CDT) [facility] Time Signature Glucose, POCT, 189 (H) 70 [...] Address City/State/ZIP Code Phon e Number [facility] [address] [place] [address] [facility] [place] [address] [place] [facility] 200 [facility] (ABNORMAL) CBC without Differential (11/29/2020 3:46 AM CDT) Patholo gist Method Time Signature Hemoglobin 11.5 (L) [...] LAB BLOOD ADD-O N Performing Organization Address City/[facility] Phon e Number [facility] - 200 [place], [place] [address] [facility] [place] [address] [facility] 200 [facility] (ABNORMAL) Basic Metabolic Panel (11/29/2020 3:46 AM [...] 11/29/2020 DTL Black/ mL/min/BSA 5:00 AM CDT Indian Comment: ----ADDITIONAL INFORMATION---- Estimated GFR calculated using [...] AM 11/30/19 4:22 Venous) CDT AM CDT Javier Chen APRN, C.N.P., D.N.P. LAB BLOOD ADD-O N Performing Organization Address City/State/ZIP Code Phon e Number [facility] - [address] [place], [place] [address] [facility] [place] [address] [facility] [address] Phosphorus Inorganic (11/29/2020 3:46 AM CDT) P athologist Signature Phosphorus 3.0 2.5 - 4.5 11/29/2020 DTL (Inorganic), S mg/dL 5:00 AM CDT Specimen Anatomical Collection Method Collection Time Receive d Time (Source) Location / / Volume Laterality Blood (Blood, 11/29/2020 3:46 AM 11/30/19 4:22 Venous) CDT AM CDT aJvier Chen APRN, C.N.P., Lizbeth.N.P. LAB BLOOD ADD-O N Performing Organization Address City/State/ZIP Code Phon e Number [facility] - [address] [place], [place] [address] [facility] [place] [address] [facility] [address] Benzodiazepines Confirmation, Urine (11/28/2020 10:35 PM CDT) [facility] Method Time Signature Alprazolam by Negative Cutoff: 12/01/2020 [facility] LC-MS/MS 10 ng/mL 3:47 PM CDT Alpha-Hydroxyalprazo Negative Cutoff: 12/01/2020 [facility] juarez by LC-MS/MS 10 ng/mL 3:47 PM CDT Chlordiazepoxide by Negative Cutoff: 12/01/2020 [facility] LC-MS/MS 10 ng/mL 3:47 PM CDT Clonazepam by Negative Cutoff: 12/01/2020 [facility] LC-MS/MS 10 ng/mL 3:47 PM CDT 7-aminoclonazepam by Negative Cutoff: 12/01/2020 [facility] LC-MS/MS 10 ng/mL 3:47 PM CDT Diazepam by LC-MS/MS Negative Cutoff: 12/01/2020 [facility] 10 ng/mL 3:47 PM CDT Nordiazepam by Negative Cutoff: 12/01/2020 [facility] LC-MS/MS 10 ng/mL 3:47 PM CDT Midazolam by 103 Cutoff: 12/01/2020 [facility] LC-MS/MS 10 ng/mL 3:47 PM CDT Alpha-Hydroxy 1209 Cutoff: 12/01/2020 [facility] Midazolam by 10 ng/mL 3:47 PM CDT LC-MS/MS Oxazepam by LC-MS/MS Negative Cutoff: 12/01/2020 [facility] 10 ng/mL 3:47 PM CDT Temazepam by Negative Cutoff: 12/01/2020 [facility] LC-MS/MS 10 ng/mL 3:47 PM CDT Clobazam by LC-MS/MS Negative Cutoff: 12/01/2020 [facility] 10 ng/mL 3:47 PM CDT N-Desmethylclobazam Negative Cutoff: 12/01/2020 [facility] by LC-MS/MS 10 ng/mL 3:47 PM CDT Flunitrazepam by Negative Cutoff: 12/01/2020 [facility] LC-MS/MS 10 ng/mL 3:47 PM CDT 7-aminoflunitrazepam Negative Cutoff: 12/01/2020 [facility] by LC-MS/MS 10 ng/mL 3:47 PM CDT Flurazepam by Negative Cutoff: 12/01/2020 [facility] LC-MS/MS 10 ng/mL 3:47 PM CDT 2-Hydroxy Ethyl Negative Cutoff: 12/01/2020 [facility] Flurazepam by 10 ng/mL 3:47 PM CDT LC-MS/MS Lorazepam by Negative Cutoff: 12/01/2020 [facility] LC-MS/MS 10 ng/mL 3:47 PM CDT Prazepam by LC-MS/MS Negative Cutoff: 12/01/2020 [facility] 10 ng/mL 3:47 PM CDT Triazolam by Negative Cutoff: 12/01/2020 [facility] LC-MS/MS 10 ng/mL 3:47 PM CDT Alpha-Hydroxy Negative Cutoff: 12/01/2020 [facility] Triazolam by 10 ng/mL 3:47 PM CDT LC-MS/MS Zolpidem by LC-MS/MS Negative Cutoff: 12/01/2020 [facility] 10 ng/mL 3:47 PM CDT Zolpidem Negative Cutoff: 12/01/2020 [facility] Ywqnco-3-Xheiovwoza 10 ng/mL 3:47 PM CDT acid by LC-MS/MS Benzodiazepines Positive. 12/01/2020 [facility] Interpretation 3:47 PM CDT Comment: ----ADDITIONAL INFORMATION---- This report is intended for use in clini tio monitoring and management of patients. ??It is not intended for use i n employment-related testing. This test was developed and its performa nce characteristics determined by [facility] in a manner consistent with CLIA requirements. This test has not been cleared or approved by the U.[place]. Boyd d and Drug Administration. Specimen Anatomical Collection Method Collection Time Receive d Time (Source) Location / / Volume Laterality Urine 11/28/2020 10:35 11/29/2020 PM CDT 12:12 PM CDT Priscilla Delgado APRN, C.N.P. LAB URINE ORDERABLES Performing Organization Address City/State/ZIP Code Phon e Number [facility] [address] [place], [place] [address] [place] [address] CENTER [facility] [place] [address] Laboratory Medicine and Pathology [address] [place] (ABNORMAL) Drug Abuse Survey with Confirmation, Panel 9, Urine (11/28/2020 10:35 PM CDT) Component Value Ref Test Analysis Performed At [facility] Range Method Time Signature Alcohol Negative Cutoff: [...] Its performance characteristics were determi craig by [facility] in a manner consistent with CLIA requirements. This test has not been cleared or approved by the U.S. Food and Drug Administration . Specimen Anatomical Collection Method Collection Time Receive d Time (Source) Location / / Volume Laterality Urine (Urine, 11/28/2020 10:35 11/29/2020 8:23 Clean Catch) PM CDT AM CDT Priscilla Delgado APRN, C.N.P. LAB URINE ORDERABLES Performing Organization Address [facility] Phon e Number [facility] [address] [place] [address] [facility] [place] [address] Laboratory Medicine and Pathology [address] [place] [address] Dr. [place] Drug Screen, Prescription/OTC, Urine (11/28/2020 10:35 PM CDT) [facility] Method Time Signature Drugs Acetaminophen. Fentanyl. 11/30/2020 [facility] detected: 10:55 AM The following compounds have [...] its performa nce characteristics determined by [facility] in a manner consistent with CLIA requirements. This test has not been cleared or approved by the U.[place]. Boyd d and Drug Administration. Specimen Anatomical Collection Method Collection Time Receive d Time (Source) Location / / Volume Laterality Urine (Urine, 11/28/2020 10:35 11/29/2020 8:23 Clean Catch) PM CDT AM CDT Priscilla Delgado APRN, C.N.P. LAB URINE ORDERABLES Performing Organization Address [facility] Phon e Number [address] [place] [phone] [facility] [place] [address] Laboratory Medicine and Pathology [address] [place] [address] Dr. [place] (ABNORMAL) Glucose, POCT (11/28/2020 9:40 [...] Provider LAB POCT ORDERABLES-MANUAL Performing Organization Address City/[facility]/ZIP [facility] [place] Phon e Number [facility] [address] [place] [address] [facility] Osmolality, Urine (11/28/2020 9:26 PM CDT) athologist Signature Osmolality, U 571 150 - 1150 11/28/2020 DTL mOsm/kg 11:17 PM CDT Specimen Anatomical Collection Method Collection Time Receive d Time (Source) Location / / Volume Laterality Urine 11/28/2020 9:26 PM 9:51 CDT PM CDT Priscilla Delgado APRN, C.N.P. LAB URINE ORDERABLES Performing Organization Address City/[facility] Phon e Number [facility] - [address] [place] [address] [place] [address] [place] [address] [facility] [address] pH, Urine (11/28/2020 9:26 PM CDT) P athologist Signature pH, U 5.0 4.5 - 8.0 11/28/2020 11:17 DTL PM CDT Specimen Anatomical Collection Method Collection Time Receive d Time (Source) Location / / Volume Laterality Urine 11/28/2020 9:26 PM 9:51 CDT PM CDT Priscilla Delgado APRN, Colt.N.P. LAB URINE ORDERABLES Performing Organization Address City/[facility]/ZIP [facility] [place] Phon e Number [facility] - [address] [place], [place] [address] [facility] [place] [address] (ABNORMAL) Microscopic Automated (11/28/2020 9:26 PM CDT) [facility] Method Time Signature Microscopy Abnormal 11/28/2020 DTL [...] PM 9:51 CDT PM CDT Priscilla Delgado APRN, C.N.P. LAB URINE ORDERABLES Performing Organization Address City/[facility] Code Phon e Number [facility] - 200 [place], [place] [address] [place] [address] [place] [address] (ABNORMAL) Dipstick, Urine (11/28/2020 9:26 PM CDT) [facility] Signature Hemoglobin, Large (A) Negative 11/28/2020 DTL [...] PM 9:51 CDT PM CDT Priscilla Delgado APRN, C.N.P. LAB URINE ORDERABLES Performing Organization Address City/State/[facility] Phon e Number [facility] - [address] (ABNORMAL) Urinalysis with Microscopic: Urine, Midstream (11/28/2020 9:26 PM CDT) Patholo gist Method Time Signature Source Urine, Urine, 11/28/2020 [...] Volume Laterality Urine (Urine, 11/28/2020 9:26 PM 11/29/19 21 9:51 Midstream) CDT PM CDT Priscilla Delgado APRN, C.N.P. LAB URINE ORDERABLES Performing Organization Address City/State/[facility] Code Phon e Number [facility] - [address] [place] [id number] [place] [address] (ABNORMAL) Troponin T, 5th Generation (11/28/2020 7:52 PM CDT) P athologist Signature Troponin T, 109 (H) <=15 ng/L 11/28/2020 [facility] 5th gen 8:16 PM CDT Comment: Consider acute myocardial injur y Specimen Anatomical Collection Method Collection Time Receive d Time (Source) Location / / Volume Laterality Blood (Blood, 11/28/2020 7:52 PM 11/29/19 7:57 Venous) CDT PM CDT Norma Sanchez APRN, C.N.P., D.N.P. LAB BLOOD ADD-ON Performing Organization Address City/State/ZIP Code Phon e Number [facility] - [address] [place], [place] [address] [facility] [place] [address] [facility] [address] [facility] (ABNORMAL) Glucose, POCT (11/28/2020 5:07 PM CDT) [...] / Volume Laterality Blood 11/28/2020 5:07 PM 1 5:09 CDT PM CDT Unknown Provider LAB POCT ORDERABLES-MANUAL Performing Organization Address City/[facility]/ZIP Code Phon e Number [facility] [address] [place] [address] [place] [address] [place] [facility] 200 [facility] Glucose, POCT (11/28/2020 1:28 PM CDT) P athologist Signature Glucose, POCT, 129 70 - 140 11/28/2020 [facility] B mg/dL 1:30 PM CDT Site ARTLINE 11/28/2020 [facility] 1:30 PM CDT Last Intake NPO 11/28/2020 [facility] 1:30 PM CDT Specimen Anatomical Collection Method Collection Time Receive d Time (Source) Location / / Volume Laterality Blood 11/28/2020 1:28 PM 1 1:31 CDT PM CDT Unknown Provider LAB POCT ORDERABLES-MANUAL Performing Organization Address City/State/ZIP Code Phon e Number [facility] [address] [place] [address] [facility] [place] [address] [place] [facility] 200 [facility] Glucose, POCT (11/28/2020 12:46 PM CDT) P athologist Signature Glucose, POCT, 111 70 - [...] Address City/State/ZIP Code Phon e Number [facility] [address] [place] [address] [facility] [place] [address] [place] [facility] [address] SW DX Chest Portable 1 View (11/28/2020 12:22 [...] CHEST PORTABLE 1 VIEW Procedure Note Rodríguez Mlutani M.D. - 11/28/2020Forma tting of this note [...] Pulmonary venous co ngestion. Aortic calcifications. Javier Chen APRN, C.N.P., D.N.P. IMG DIAGNOSTIC IMAGING PROCEDURES Glucose, POCT (11/28/2020 11:30 AM CDT) P athologist Signature Glucose, POCT, 98 70 - [...] Address City/State/ZIP Code Phon e Number [facility] [address] [place] [address] [facility] [place] [address] [place] [facility] [address] (ABNORMAL) Basic Metabolic Panel (11/28/2020 11:12 AM CDT) P athologist Signature Potassium, S 4.3 3.6 - [...] 11/28/2020 DTL Black/ mL/min/BSA 12:16 PM CDT Indian Comment: ----ADDITIONAL INFORMATION---- Estimated GFR calculated using [...] C.N.P. LAB BLOOD ADD-ON Performing Organization Address City/[facility] Phon e Number [facility] - 200 [place] [address] 05 [facility] DTL [address] Patient Status (11/28/2020 11:12 AM CDT) P athologist Signature FIO2 0.40 0.21=AIR 11/28/2020 [facility] 11:17 AM CDT Device Vent 11/28/2020 [facility] 11:17 AM CDT Spont. 20 11/28/2020 [facility] breaths/min 11:17 AM CDT Specimen Anatomical Collection Method Collection Time Receive d Time (Source) Location / / Volume Laterality Blood 11/28/2020 11:12 11/28/2020 AM CDT 11:17 AM CDT Javier Chen APRN C.N.P., D.N.P. LAB BLOOD NON A DD-ON Performing Organization Address City/[facility] Phon e Number [facility] - [address] (ABNORMAL) Blood Gas without Coox, Arterial [...] 11/28/2020 Arterial) AM CDT 11:17 AM CDT Javier Chen APRN, C.N.P., D.N.P. LAB BLOOD NON A DD-ON Performing Organization Address City/State/ZIP Code Phon e Number [facility] - [address] [place], [place] [address] [facility] [place] [address] [facility] [address] [place] TUBE THORACOSTOMY (11/28/2020 10:51 AM CDT) [...] ERABLES Glucose, POCT (11/28/2020 10:42 AM CDT) athologist Signature Glucose, POCT, 105 70 - [...] Address City/State/ZIP Code Phon e Number [facility] [address] [place] [address] [place] [address] [place] [facility] [address] SW DX Chest [...] IMPRESSION: Comparison was made with the 11/28/2020 est radiograph. There is a new left [...] level of the aortic arch, satisfactory. Kelsi Aguilar M.D. IMG DIAGNOSTIC IMAGING PROCE DURES (ABNORMAL) Glucose, POCT (11/28/2020 9:17 AM CDT) athologist Signature Glucose, POCT, 228 (H) 70 - 140 11/28/2020 [facility] B mg/dL 9:19 AM CDT Specimen Anatomical Collection Method Collection Time Receive d Time (Source) Location / / Volume Laterality Blood 11/28/2020 9:17 AM 9:19 CDT AM CDT Unknown Provider LAB POCT ORDERABLES-MANUAL Performing Organization Address City/State/ZIP Code Phon e Number [facility] [address] [place] [address] [place] [address] [place] [facility] [address] (ABNORMAL) Glucose, POCT (11/28/2020 8:30 AM CDT) athologist Signature Glucose, POCT, 324 (H) 70 - 140 11/28/2020 [facility] B mg/dL 8:33 AM CDT Site ARTLINE 11/28/2020 [facility] 8:33 AM CDT Last Intake NPO 11/28/2020 [facility] 8:33 AM CDT Specimen Anatomical Collection Method Collection Time Receive d Time (Source) Location / / Volume Laterality Blood 11/28/2020 8:30 AM 08/02/202 1 8:33 CDT AM CDT Unknown Provider LAB POCT ORDERABLES-MANUAL Performing Organization Address City/State/ZIP Code Phon e Number [facility] [address] [place] [address] [place] [address] [place] [facility] 200 [facility] (ABNORMAL) Glucose, POCT (11/28/2020 7:26 AM CDT) P athologist Signature Glucose, POCT, 380 (H) 70 - 140 11/28/2020 [facility] B mg/dL 7:32 AM CDT Specimen Anatomical Collection Method Collection Time Receive d Time (Source) Location / / Volume Laterality Blood 11/28/2020 7:26 AM 7:32 CDT AM CDT Unknown Provider LAB POCT ORDERABLES-MANUAL Performing Organization Address City/[facility]/ZIP Code Phon e Number [facility] [address] [place] [address] [place] [address] [place] [facility] 200 [facility] DX Chest Portable 1 View (11/28/2020 7:07 [...] VIEW IMPRESSION: No significant change since earlier prema villegas. Again noted is a pigtail catheter projecting [...] Critical care time was exclusive of: sep murtaza billable procedures and treating other patients and teaching juliana drake Critical care was necessary to treat or [...] C.N.P. LAB BLOOD ADD-ON Performing Organization Address City/[facility] Phon e Number [facility] - 200 [place] [phone] [facility] [address] Patient Status (11/28/2020 6:23 AM CDT) athologist Signature FIO2 0.50 0.21=AIR 11/28/2020 6:27 [facility] AM CDT Device Vent 11/28/2020 6:27 [facility] AM CDT Specimen Anatomical Collection Method Collection Time Receive d Time (Source) Location / / Volume Laterality Blood 11/28/2020 6:23 AM 6:27 CDT AM CDT Sheridan Good APRN, C.N.P. LAB BLOOD NON ADD-ON Performing Organization Address City/[facility] Phon e Number [facility] - [address] Calcium, Ionized (11/28/2020 6:23 AM CDT) athologist Signature Calcium, 4.69 4.65 - 5.30 11/28/2020 [facility] Ion[facility], B mg/dL 6:30 AM CDT Specimen Anatomical Collection Method Collection Time Receive d Time (Source) Location / / Volume Laterality Blood (Blood, 11/28/2020 6:23 AM 11/29/19 6:27 Venous) CDT AM CDT Sheridan Good APRN, C.N.P. LAB BLOOD NON ADD-ON Performing Organization Address City/[facility] Phon e Number [facility] - [address] (ABNORMAL) Blood Gas without Coox, Arterial [...] 6:30 AM CDT Arterial Art Line 11/28/2020 [facility] Sample Site 6:30 AM CDT Comment: Herrera's test not done. Specimen Anatomical Collection Method Collection Time Receive d Time (Source) Location / / Volume Laterality Blood (Blood, 11/28/2020 6:23 AM 11/29/19 6:27 Arterial) CDT AM CDT Sheridan Good APRN, C.N.P. LAB BLOOD NON ADD-ON Performing Organization Address City/State/[facility] Code Phon e Number [facility] - 200 [place], [place] [address] [facility] [place] [address] [facility] 200 [facility] (ABNORMAL) CBC with Differential, Blood (11/28/2020 6:22 AM CDT) Patholo gist Method Time Signature Hemoglobin 13.8 13.2 - [...] Number [facility] - 200 [place], [place] [address] [place] [address] [facility] 200 [facility] (ABNORMAL) CBC with Differential, Blood (11/28/2020 6:22 AM CDT) [facility] Method Time Signature Hemoglobin 12.4 (L) 13.2 [...] 11/29/19 6:30 Venous) CDT AM CDT Sheridan Good APRN, C.N.P. LAB BLOOD ADD-ON Performing Organization Address City/State/ZIP Code Phon e Number [facility] - [address] [place] [address] [address] [place] [address] [facility] 200 [facility] (ABNORMAL) Hepatic Function Panel (11/28/2020 6:22 AM CDT) [facility] Method Time Signature Bilirubin, Total, S 0.3 [...] C.N.P. LAB BLOOD ADD-ON Performing Organization Address City/[facility] Phon e Number [facility] - [address] [place] [address] [place] [address] Lactate (11/28/2020 6:22 AM CDT) P athologist Signature Lactate, P 1.5 0.5 - 2.2 11/28/2020 [facility] mmol/L 6:44 AM CDT Specimen Anatomical Collection Method Collection Time Receive d Time (Source) Location / / Volume Laterality Blood (Blood, 11/28/2020 6:22 AM 11/29/19 6:28 Venous) CDT AM CDT Sheridan Good APRN, C.N.P. LAB BLOOD NON ADD-ON Performing Organization Address City/[facility]/ZIP [facility] Phon e Number [facility] - [address] [place], [place] [address] [facility] [place] [address] (ABNORMAL) Phosphorus Inorganic (11/28/2020 6:22 AM CDT) P athologist Signature Phosphorus 5.4 (H) 2.5 - 4.5 11/28/2020 DTL (Inorganic), S mg/dL 7:24 AM CDT Specimen Anatomical Collection Method Collection Time Receive d Time (Source) Location / / Volume Laterality Blood (Blood, 11/28/2020 6:22 AM 11/29/19 7:07 Venous) CDT AM CDT Sheridan Good APRN, C.N.P. LAB BLOOD ADD-ON Performing Organization Address City/[facility] Phon e Number [facility] - [address] [address] Laboratories-[address] Magnesium (11/28/2020 6:22 AM CDT) athologist Signature Magnesium, S 2.1 1.7 - 2.3 11/28/2020 DTL mg/dL 7:24 AM CDT Specimen Anatomical Collection Method Collection Time Receive d Time (Source) Location / / Volume Laterality Blood (Blood, 11/28/2020 6:22 AM 11/29/19 7:07 Venous) CDT AM CDT Sheridan Good APRN, C.N.P. LAB BLOOD ADD-ON Performing Organization Address [facility] Phon e Number [facility] - [address] [place] [address] Laboratories-[address] (ABNORMAL) Basic Metabolic Panel (11/28/2020 6:22 AM CDT) athologist Signature Potassium, P 5.2 3.6 - [...] CDT eGFR-Black/Afri 89 >=60 11/28/2020 STMA can Indian mL/min/BSA 6:47 AM CDT Comment: ----ADDITIONAL INFORMATION---- Estimated GFR calculated using the 2009 CKD_EPI creatinine equation. eGFR Non-Black/ 77 >=60 mL/min/BSA 6:47 AM CDT [facility] Comment: ----ADDITIONAL INFORMATION---- Estimated GFR calculated using the 2009 CKD_EPI creatinine equation. Calcium, Total, P 8.0 (L) 8.6 - 10.0 mg/dL 11/28/2020 6:47 AM CDT [facility] Glucose, P 373 (H) 70 - 140 mg/dL 11/28/2020 6:47 AM CDT S TMA Specimen Anatomical Collection Method Collection Time Receive d Time (Source) Location / / Volume Laterality Blood (Blood, 11/28/2020 6:22 AM 11/29/19 6:29 Venous) CDT AM CDT Rachel Cárdenas APRNNLisaP. LAB BLOOD ADD-ON Performing Organization Address City/[facility] Phon e Number [facility] - [address] [place], [place] [address] [facility] [place] [address] [facility] [address] (ABNORMAL) Glucose, POCT (11/28/2020 6:21 AM CDT) athologist Signature Glucose, POCT, 355 (H) 70 - 140 11/28/2020 PCLX B mg/dL 7:02 AM CDT Specimen Anatomical Collection Method Collection Time Receive d Time (Source) Location / / Volume Laterality Blood 11/28/2020 6:21 AM 7:02 CDT AM CDT Unknown Provider LAB POCT ORDERABLES-MANUAL Performing Organization Address City/State/[facility] Phon e Number [facility] [address] [place] [address] P[facility] [place] [address] [place] [facility] [address] Beta-Hydroxybutyrate (11/28/2020 6:17 AM CDT) athologist Signature Beta-Hydroxybut <0.1 <0.4 mmol/L 11/28/2020 DTL yrate, S 11:19 AM CDT Specimen Anatomical Collection Method Collection Time Receive d Time (Source) Location / / Volume Laterality Blood (Blood, 11/28/2020 6:17 AM 11/29/19 21 Venous) CDT 10:02 AM CDT Aron Seymour APRN C.N.P. LAB BLOOD ADD-ON Performing Organization Address City/State/ZIP Code Phon e Number [facility] - [address] [place], [place] [address] [facility] [place] [address] [facility] [address] Chest without IV Contrast (11/28/2020 5:53 [...] the left upper lung. Repositioning recommended. Krystian Cason M.D. IMG CT PROCEDURES Place arterial catheter No upper extremity site restrictions (11/28/2020 5:45 AM CDT) Narrative Luis Santoro R.RLisaTLisa, L.R.T. - 11/28 5:45 AM CDT Luis Santoro R.R.T., L.R.T. ? 11/28/2020 ??5:[address] arterial catheter No upper extremi ty site restrictions Date/Time: 11/28/2020 5:45 AM Performed by: Luis Santoro R.R.T., L.R.T. Authorized by: Hubert Smith M.D. Care team members present 1. Trinidad Momin, Chandan.R.T., L.R.T. 3. Luis Santoro R.R.TLisa, L.R.T. 5. Krystian Cason M.D. Location: ED [...] Electrolytes CG8+, POCT (11/28/2020 5:36 AM CDT) P athologist Signature Sample Site, Venick 11/28/2020 PCSM POCT 7:00 AM CDT Comment: [...] B 88 Not Applicable mm Hg 11/29/19 7:00 AM [...] POCT ORDERABLES - DEVICE Performing Organization Address [facility] Phon e Number [facility] 200 [place], [place] [address] [place] [address] Arterial Blood Gas and Electrolytes, POCT [...] POCT ORDERABLES - DEVICE Performing Organization Address City/[facility] Phon e Number [facility] - [address] [address] 05 [facility] [place] [address] [facility] 200 [facility] (ABNORMAL) Troponin T, 2H/6H, 5th Gen (11/28/2020 [...] 11/29/19 5:43 Venous) CDT AM CDT Narrative [facility] - 11/28/2020 11:38 AM CDT Specimen Information: Specimen ID: [id number] Specimen Type: Blood Specimen Collection Start Date: ??5:36 AM Specimen Received Date: 11/28/2020 ??5:43 AM Specimen ID: [id number] Specimen Type: Blood Specimen Collection Start Date: 11:12 AM Specimen Received Date: 11/28/2020 11:17 AM Hubert Smith M.D. LAB BLOOD TROPONIN Performing Organization Address City/State/ZIP Code Phon e Number [address] [address] [place] [address] [facility] 200 [facility] (ABNORMAL) Glucose, POCT (11/28/2020 5:33 AM CDT) P athologist Signature Glucose, POCT, 409 (H) 70 - 140 11/28/2020 PCLX B mg/dL 5:35 AM CDT Site ARTLINE 11/28/2020 PCLX 5:35 AM CDT Specimen Anatomical Collection Method Collection Time Receive d Time (Source) Location / / Volume Laterality Blood 11/28/2020 5:33 AM 5:35 CDT AM CDT Unknown Provider LAB POCT ORDERABLES-MANUAL Performing Organization Address City/[facility]/ZIP Code Phon e Number [facility] 200 [place] [address] [place] [address] [facility] 200 [facility] Glucose, POCT (11/28/2020 5:29 AM CDT) Analysis Performed At Patho logist Time Signature Glucose, POCT, Collected DEFAULT 11/28/2020 SMLX B 5:29 AM CDT Specimen Anatomical Collection Method Collection Time Receive d Time (Source) Location / / Volume Laterality Blood (Blood, 11/28/2020 5:29 AM 11/29/19 5:29 Capillary) CDT AM CDT Hubert Smith M.D. LAB POCT ORDERABLES-MANUAL Performing Organization Address City/[facility]/ZIP Code Phon e Number [facility] - 200 [place], [place] [address] [place] [address] [facility] 200 [facility] Glucose, POCT (11/28/2020 5:29 AM CDT) Analysis Performed At Patho logist Time Signature Glucose, POCT, Collected DEFAULT 11/28/2020 SMLX B 5:29 AM CDT Specimen Anatomical Collection Method Collection Time Receive d Time (Source) Location / / Volume Laterality Blood (Blood, 11/28/2020 5:29 AM 11/29/19 5:29 Capillary) CDT AM CDT Hubert Smith M.D. LAB POCT ORDERABLES-MANUAL Performing Organization Address City/[facility]/ZIP Code Phon e Number [facility] - 200 [place], [place] [address] [facility] [place] [address] [facility] 200 [facility] Glucose, POCT (11/28/2020 5:29 AM CDT) Analysis [...] [facility] - [address] [place], [place] [address] [facility] [place] [address] [facility] [address] (ABNORMAL) Venous Blood Gas and Electrolytes [...] POCT ORDERABLES - DEVICE Performing Organization Address [facility] Phon e Number [facility] [address] [place] [address] LABS PCSM [facility] [address] [place] [address] Bacteria / Anabela Culture, Blood # 2 (11/28/2020 5:09 AM CDT) Patholo gist Method Time Signature Bacteria/Christina No growth 12/03/2020 DT da Culture, after 5 7:02 AM CDT Blood days of incubation. Specimen (Source) Anatomical Collection Method Collection Time Re ceived Time Location / / Volume Laterality Blood (Blood, 11/28/2020 5:09 11/28/2020 6:21 Peripheral Draw) AM CDT AM CDT Comment: Specimen Source Site: Blood Krystian Caosn M.D. LAB MICROBIOLOGY - GENERAL O RDERABLES Performing Organization Address [facility] Phon e Number [facility] - [address] [place] [address] [address] 200 [facility] Venous Blood Gas and Electrolytes, POCT (11/28/2020 5:08 AM CDT) Analysis Performed At Patho logist Time Signature ABG and Lytes, Collected DEFAULT 11/28/2020 SMLX POCT, B 5:08 AM CDT Specimen Anatomical Collection Method Collection Time Receive d Time (Source) Location / / Volume Laterality Blood (Other, 11/28/2020 5:08 AM 11/29/19 5:08 Specify in CDT AM CDT Comments) Hubert Smith M.D. LAB POCT ORDERABLES - DEVICE Performing Organization Address [facility] Phon e Number [facility] - [address] [place] [address] 05 [facility] [place] [address] Laboratories[address] Bacteria / Anabela Culture, Blood #1 (11/28/2020 5:02 AM CDT) Patholo gist Method Time Signature Bacteria/Christina No growth 12/03/2020 DT da Culture, after 5 7:02 AM CDT Blood days of incubation. Specimen (Source) Anatomical Collection Method Collection Time Re ceived Time Location / / Volume Laterality Blood (Blood, 11/28/2020 5:02 11/28/2020 6:22 Peripheral Draw) AM CDT AM CDT Comment: Specimen Source Site: [facility] Krystian Cason M.D. LAB MICROBIOLOGY - GENERAL O RDERABLES Performing Organization Address City/[facility]/ZIP Code Phon e Number [facility] - [id number] [place] [address] Beta-Hydroxybutyrate (11/28/2020 5:02 AM CDT) P athologist Signature Beta-Hydroxybut <0.1 <0.4 mmol/L 11/28/2020 DT yrate, S 6:05 AM CDT Specimen Anatomical Collection Method Collection Time Receive d Time (Source) Location / / Volume Laterality Blood (Blood, 11/28/2020 5:02 AM 11/29/19 21 5:40 Venous) CDT AM CDT Hubert Smith M.D. LAB BLOOD ADD-ON Performing Organization Address City/[facility]/ZIP Code Phon e Number [facility] - 200 [place], [place] [address] 05 [place] [address] [facility] [address] DX Chest Portable 1 View (11/28/2020 4:28 [...] to 11/28/2020 (0 356). Krystian Cason M.D. IMLady DIAGNOSTIC IMAGING PROCE DURES SARS Coronavirus 2, PCR Rapid, V Symptomatic (11/28/2020 4:28 AM CDT) [facility] Method Time Signature SARS CoV-2, Undetected Undetected 11/28/2020 STMA PCR, Rapid, V 5:01 AM CDT Comment: ----ADDITIONAL INFORMATION---- This RT-PCR test was performed using the Didi SARS-CoV-2 and Influenza A/B Reagent assay from [employer] which has received Emergency Use Authori zation(EUA) by the U.S. Food and Drug Administration . Fact sheets for this Emergency Use Autho rization (EUA) assay can be found at the following link s: For Healthcare Providers: https://www.fda.gov/media/904285/downloa d For Patients: https://www.fda.gov/media/618221/downloa d SARS Coronavirus 2, Source, Rapid Swab, Nasopharynx 11/28/2020 4:32 AM CDT STMA Specimen Anatomical Collection Method Collection Time Receive d Time (Source) Location / / Volume Laterality Varies 11/28/2020 4:28 AM 4:32 (Nasopharynx) CDT AM CDT Hubert Smith M.D. LAB [facility]OLOGY - [facility] Performing Organization Address City/State/ZIP Code Phon e Number [facility] - [address] [place], [place] [address] [place] [address] [facility] [address] Chest Tube Insertion (11/28/2020 4:25 AM CDT) [...] ERABLES Lactate, POCT (11/28/2020 4:14 AM CDT) athologist Signature Lactate, POCT 1.65 0.50 - 11/28/2020 PCLX 2.20 4:51 AM CDT mmol/L Sample Site, Venstick 11/28/2020 PCLX POCT 4:51 AM CDT Specimen Anatomical Collection Method Collection Time Receive d Time (Source) Location / / Volume Laterality Blood 11/28/2020 4:14 AM 4:51 CDT AM CDT Unknown Provider LAB POCT ORDERABLES - DEVICE Performing Organization Address City/State/ZIP Code Phon e Number [facility] [address] [place] [address] [facility] [place] [address] [place] [facility] [address] (ABNORMAL) Venous Blood Gas and Electrolytes CG8+, POCT (11/28/2020 4:13 AM CDT) athologist Signature Sample Site, Venstick [...] City/State/ZIP Code Phon e Number [facility] [address] [place], [place] [address] LABS PCS[facility] [place] [address] [place] [facility] [address] DX Chest Portable 1 View (11/28/2020 4:07 [...] hemithorax. Otherwise no significant change since ea rlier today. Narrative 11/28/2020 8:28 AM CDT EXAM: [...] hemithorax. Otherwise no significant change since ea rlier today. Hubert MÉNDEZ DIAGNOSTIC IMAGING PROCE CAROL [...] hea, 2 cm above the elier. Hubert Smith M.D. IMG DIAGNOSTIC IMAGING PROCE DURES Lactate, POCT (11/28/2020 3:31 AM CDT) Analysis Performed At Patho logist Time Signature Lactate, POCT Collected DEFAULT 11/28/2020 SMLX 3:31 AM CDT Specimen Anatomical Collection Method Collection Time Receive d Time (Source) Location / / Volume Laterality Blood (Blood, 11/28/2020 3:31 AM 11/29/19 3:31 Venous) CDT AM CDT Hubert Smith M.D. LAB POCT ORDERABLES - DEVICE Performing Organization Address City/State/[facility] Code Phon e Number [facility] - [address] [address] [facility] [place] [address] [facility] 200 [address] [facility] Prothrombin Time (PT) (11/28/2020 3:31 AM CDT) P athologist Signature Prothrombin 11.5 9.4 - 12.5 11/28/2020 [facility]MA Time, P sec 3:49 AM CDT INR [...] M.D. LAB BLOOD ADD-ON Performing Organization Address City/[facility] Phon e Number [facility] - [address] [place] [address] [address] Magnesium (11/28/2020 3:31 AM CDT) P athologist Signature Magnesium, S 2.1 1.7 - 2.3 11/28/2020 DTL mg/dL 4:24 AM CDT Specimen Anatomical Collection Method Collection Time Receive d Time (Source) Location / / Volume Laterality Blood (Blood, 11/28/2020 3:31 AM 11/29/19 4:02 Venous) CDT AM CDT Hubert Smith M.D. LAB BLOOD ADD-ON Performing Organization Address City/[facility] Phon e Number [facility] - [address] DTL [address] (ABNORMAL) Troponin T, Baseline, 5th gen (11/28/2020 3:31 AM CDT) P athologist Signature Troponin T, 60 (H) <=15 ng/L 11/28/2020 [facility] Baseline, 5th 3:56 AM CDT gen Specimen Anatomical Collection Method Collection Time Receive d Time (Source) Location / / Volume Laterality Blood (Blood, 11/28/2020 3:31 AM 11/29/19 3:40 Venous) CDT AM CDT Hubert Smith M.D. LAB BLOOD TROPONIN Performing Organization Address City/[facility] Phon e Number [facility] - [address] (ABNORMAL) Hepatic Function Panel (11/28/2020 3:31 [...] [facility] [address] [place], [place] [address] [facility] [place] [address] [facility] [address] (ABNORMAL) NT-Pro B-Type Natriuretic [...] e Number [facility] - [facility] [address] [place], [place] [address] [facility] [place] [address] [facility] [address] (ABNORMAL) Basic Metabolic Panel (11/28/2020 3:31 AM [...] CDT eGFR-Black/Afri >90 >=60 11/28/2020 STMA can Indian mL/min/BSA 4:31 AM CDT Comment: REVISED RESULTS [...] - 10.0 mg/dL 11/28/2020 4:31 AM CDT [facility] Comment: ----PREVIOUSLY REPORTED ---- Demographics adjusted: Ref Interval prev iously reported as 8.8 - 10.2 Glucose, P 512 (CH) 70 - 140 mg/dL 11/28/2020 4:10 AM CDT S [facility] Specimen Anatomical Collection Method Collection Time Receive d Time (Source) Location / / Volume Laterality Blood (Blood, 11/28/2020 3:31 AM 11/29/19 3:39 Venous) CDT AM CDT Hubert Smith M.D. LAB BLOOD ADD-ON Performing Organization Address City/State/ZIP Code Phon e Number [facility] - [address] [place] [address] 05 [place] [address] [facility] 200 [facility] CBC with Differential, Blood (11/28/2020 3:31 AM CDT) athologist Signature Hemoglobin CANCELED 13.2 - 16.6 11/28/2020 STMA g/dL 6:12 AM CDT Comment: REVISED RESULTS ----PREVIOUSLY REPORTED ---- 13.9, Flagged as: Normal (Reported 11/28/2020 03:42) Hematocrit CANCELED 38.3 - 48.6 % 11/28/2020 6:[address] [facility] Comment: REVISED RESULTS ----PREVIOUSLY REPORTED ---- 44.7, Flagged as: Normal (Reported 11/28/2020 03:42) Erythrocytes CANCELED 4.35 - 5.65 x10(12)/L 11/28/2020 6:12 AM CDT [facility] Comment: REVISED RESULTS ----PREVIOUSLY REPORTED ---- 4.97, Flagged as: Normal (Reported 11/28/2020 03:42) MCV CANCELED 78.2 - 97.9 fL 11/28/2020 6:[address] [facility] Comment: REVISED RESULTS ----PREVIOUSLY REPORTED ---- 89.9, Flagged as: Normal (Reported 11/28/2020 03:42) RBC Distrib Width CANCELED 11.8 - 14.5 % 11/28/2020 6:12 AM CDT [facility] Comment: REVISED RESULTS ----PREVIOUSLY REPORTED ---- 14.1, Flagged as: Normal (Reported 11/28/2020 03:42) Platelet Count CANCELED 135 - 317 x10(9)/L 11/28/2020 6:12 AM CDT [facility] Comment: REVISED RESULTS ----PREVIOUSLY REPORTED ---- 355, Flagged as: Abnormal_High (Reported 11/28/2020 03:42) Leukocytes CANCELED 3.4 - 9.6 x10(9)/L 11/28/2020 6:12 AM C DT [facility] Comment: REVISED RESULTS ----PREVIOUSLY REPORTED ---- 17.7, Flagged as: Abnormal_High (Reported 11/28/2020 03:42) Neutrophils CANCELED 1.56 - 6.45 x10(9)/L 11/28/2020 6:12 A M CDT [facility] Comment: REVISED RESULTS Auto-diff results not valid. See manual differential. ----PREVIOUSLY REPORTED ---- SeeComment, Flagged as: Normal (Reported 11/28/2020 04:36) Lymphocytes CANCELED x10(9)/L 11/28/2020 6:12 AM CDT [facility] Comment: Result canceled by the ancillar y. Monocytes CANCELED x10(9)/L 11/28/2020 6:12 AM CDT [facility] Comment: Result canceled by the ancillar y. Eosinophils CANCELED x10(9)/L 11/28/2020 6:12 AM CDT [facility] Comment: Result canceled by the ancillar y. Basophils CANCELED x10(9)/L 11/28/2020 6:12 AM CDT [facility] Comment: Result canceled by the ancillar y. Specimen Anatomical Collection Method Collection Time Receive d Time (Source) Location / / Volume Laterality Blood (Blood, 11/28/2020 3:31 AM 11/29/19 3:40 Venous) CDT AM CDT Narrative [facility] - 11/28/2020 6:12 AM CDT CBC with Differential, B was cancelled on 11/28/2020 at 06:12; Duplicate test request. !CNCL! Hubert Smith M.D. LAB BLOOD ADD-ON Performing Organization Address [facility] Phon e Number [facility] - [address] [place] [address] 05 [facility] STMA [address] DHPM [address] Blood Gas, Venous, POCT (11/28/2020 3:31 [...] POCT ORDERABLES - DEVICE Performing Organization Address [facility] Phon e Number [facility] - [address] [place] [address] 05 [facility] SMLX [address] (ABNORMAL) Lactate, POCT (11/28/2020 3:29 AM CDT) P athologist Signature Lactate, POCT 3.33 (H) 0.50 - 11/28/2020 PCLX 2.20 7:00 AM CDT mmol/L Sample Site, Venstick 11/28/2020 PCLX POCT 7:00 AM CDT Specimen Anatomical Collection Method Collection Time Receive d Time (Source) Location / / Volume Laterality Blood 11/28/2020 3:29 AM 7:00 CDT AM CDT Unknown Provider LAB POCT ORDERABLES - DEVICE Performing Organization Address City/State/ZIP Code Phon e Number [facility] [address] [place] [address] [facility]CL[facility] [place] [address] [place] P[facility] [address] [facility] (ABNORMAL) Venous Blood Gas and Electrolytes CG8+, POCT (11/28/2020 3:28 AM CDT) P athologist Signature Sample Site, [...] B 72 Not Applicable mm Hg 11/29/19 3:42 AM CDT PCSM Comment: ----ADDITIONAL INFORMATION---- [...] City/State/ZIP Code Phon e Number [facility] [address] [place], [place] [address] [place] [address] [facility] [address] [place] [address] ECG 12 Lead (11/28/2020 3:24 AM CDT) P athologist Signature Ventricular Rate 115 BPM MUSE ECG/Min [place] Interval 140 ms MUSE QRSD Interval 92 ms MUSE QT Interval 334 ms MUSE QTC Interval 462 ms MUSE P [place] 76 degrees MUSE R [place] 64 degrees MUSE T Wave [place] 78 degrees MUSE Specimen Anatomical Collection Method [...] Signature Ventricular Rate 115 BPM MUSE ECG/Min [place] Interval 140 ms MUSE QRSD Interval 92 ms MUSE QT Interval 334 ms MUSE QTC Interval 462 ms MUSE P [place] 76 degrees MUSE R [place] 64 degrees MUSE T Wave [place] 78 degrees MUSE Specimen Anatomical Collection Method [...] (ABNORMAL) Lactate, POCT (11/28/2020 3:04 AM CDT) P athologist Signature Lactate, POCT 5.37 (H) 0.50 - 12/01/2020 PCLX 2.20 12:50 PM CDT mmol/L Sample Site, Venline 12/01/2020 PCLX POCT 12:50 PM CDT Specimen Anatomical Collection Method Collection Time Receive d Time (Source) Location / / Volume Laterality Blood 11/28/2020 3:04 AM CDT 12:49 PM CDT Generic Rals LAB POCT ORDERABLES - DEVICE Performing Organization Address City/State/ZIP Code Phon e Number [facility] [address] [place] [address] [facility] [place] [address] [place] [facility] [address] [facility] (ABNORMAL) Blood Gas and Electrolytes CG8+, Point of Care, [place] Inpatient, Vascular Access Game Tester (11/28/2020 3:02 AM CDT) P athologist Signature Sample Site, VENS 12/01/2020 PCLX POCT 12:40 PM CDT Comment: [...] Address City/State/ZIP Code Phon e Number [facility] [address] [place] [address] [place] [address] [place] [facility] [address] documented in this encounter Visit Diagnoses Diagnosis Edema Pulmonary (HCC) - Primary Edema Pulmonary (HCC) Other Pneumothorax Myocardial Infarction 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 Angina Pectoris (Stable Angina/Angina Of Exertion) (HCC) Acute Respiratory Failure With Hypoxia ( HCC) Hypoxemia Diabetes Mellitus Type 2 Hyperglycemia ( HCC) Hypertension Essential Primary Coronary Stent Status Post Acute Respiratory Failure With Hypercapn ia (HCC) Acute Respiratory Failure With Hypoxia ( HCC) Atherosclerotic Heart Disease [place] Ar[place] With Other Forms Angina Pectoris (Stable Angina/Angina Of Exertion) (HCC) Pneumothorax Unspecified Atherosclerotic Heart Disease [place] Artery With Other Forms Angina Pectoris (Stable Angina/Angina Of Exertion) (HCC) documented in this encounter Admitting Diagnoses Diagnosis Edema Pulmonary (HCC) Atherosclerotic Heart Disease [place] Artery With Other Forms Angina Pectoris (Stable Angina/Angina Of Exertion) (HCC) documented in this encounter Administered Medications Inactive Administered Medications - up to 3 most recent administrations Medication Order MAR Action Action Date Dose Rate Site acetaminophen tablet 1,000 mg Given 12/05/2020 3:48 PM CDT 1,000 mg (TYLENOL) 1,000 mg, oral, Every 6 hours, First dose (after last modification) on Sat11/29/20 at 1545 Given 12/05/2020 9:03 AM CDT 1,000 mg Given 12/05/2020 3:23 AM CDT 1,[address] tablet 81 mg Given 12/04/2020 [...] Given 12/02/2020 8:47 PM CDT 80 mg clopidogreL tablet 75 mg (PLAVIX) Given 12/05/2020 [...] at 0419 diphenhydrAMINE-zinc acetate 1 % cream Given 9:47 PM CDT 1 application 1 application (BENADRYL) 1 application, topical, 3 times daily PRN, itching, irritation, rash, Starting on 12/03/20 at 2039 Given 12/04/2020 9:46 PM CDT 1 application Given 12/04/2020 12:35 PM CDT 1 application fentaNYL injection 25 mcg (SUBLIMAZE) Given 12/02/2020 5:15 PM CDT 50 mcg 25 mcg, intravenous, Every 2 min [...] is less than 8 breaths/minute, Starting on Sat12/02/20 at 1710, Intraprocedure (CV) heparin (porcine) 1,000 unit/mL Given 12/02/2020 5:24 PM CDT 5,0 00 Units injection As needed, Starting on Sat12/02/20 at 1724, Intraprocedure (CV) heparin (porcine) Given 12/05/2020 2:35 PM CDT 5,000 Units Right Lower injection 5,000 Units Abdomen 5,000 Units, subcutaneous, Every 8 hours scheduled, First dose on Sat11/28/20 at 1400 Given 12/05/2020 6:23 AM CDT 5,000 Units Right Lower Abdomen Given 12/04/2020 9:45 PM CDT 5,000 Units Right Lower Abdomen insulin aspart U-100 Given 12/05/2020 12:59 PM [...] CDT 2 Units Left Upper Abdomen insulin glargine injection Given 12/04/2020 9:00 PM CDT 8 Units Right Lower Abdomen 8 Units 8 Units, subcutaneous, Daily at bedtime, First dose (after last modification) on Sat12/02/20 at 2100 Given 12/03/2020 9:26 PM CDT 8 Units Left Lower Abdomen Given 12/02/2020 9:01 PM CDT 8 Units Left Lower Abdomen iohexoL 350 mg iodine/mL solution (OMNIP AQUE) Given 12/02/2020 5:44 PM CDT 50 mL As needed, Starting on Sat12/02/20 at 1744, Intraprocedure (CV) ipratropium-albuteroL 0.5-2.5 mg/3 mL ne bulizer solution 3 mL (DUONEB) 3 mL, nebulization, 4 times daily PRN, w heezing, shortness of breath, Starting on Sat11/29/20 at 1543 lidocaine 10 mg/mL (1 %) injection Given 12/02/2020 5:17 PM CDT 2 mL Right Wrist (XYLOCAINE) As needed, Starting on Sat12/02/20 at 1714, Intraprocedure (CV) lidocaine 5 % 1 patch Medication Applied [...] Given 12/04/2020 8:03 AM CDT 100 mg melatonin tablet 5 mg Given 12/04/2020 9:45 PM CDT 5 mg 5 mg, oral, Daily at bedtime, First dose on [place] 12/01/20 at 2100 Given 12/03/2020 8:22 PM CDT 5 mg Given 12/02/2020 8:47 PM CDT 5 mg metoprolol tartrate tablet 50 mg (LOPRES SOR) Given 12/05/2020 8:32 AM CDT 50 mg 50 mg, oral, 2 times daily, First dose (after last modification) on 12/03/20 at 2100 Given 12/04/2020 9:46 PM CDT 50 mg Given 12/04/2020 8:03 AM CDT 50 mg midazolam (PF) injection 0.5 mg (VERSED) Given 12/02/2020 5:25 PM CDT 0.5 mg 0.5 mg, intravenous, Every 2 min PRN, sedation, RASS -1, Starting on Sat12/02/20 at 1710, Intraprocedure (CV), May repeat every 2 minutes for a maximum of 5 mg. Do not give if respiratory rate is less than 8 breaths/minute. Given 12/02/2020 5:15 PM CDT 0.5 mg hnpcrqwqhbyz-ddqf-XO-Ca-minerals 400 mcg Given 12/05/2020 8:32 A M [...] First dose on Sat11/29/20 at 0900 nitroglycerin in D5W 100 mcg/mL syringe (for Given 09/2020 5:22 PM CDT 200 mcg intra-arterial use only) As needed, Starting on Sat12/02/20 at 1722, Intraprocedure (CV) ondansetron (PF) injection 4 mg (ZOFRAN) 4 [...] Given 12/03/2020 8:00 AM CDT 17 g sennosides-docusate sodium 8.6-50 mg per Given 12/05/2020 [...] Given 12/04/2020 8:04 AM CDT 10 mL documented in this encounter Active and Recently Administered Medications Times are shown in CDT. Scheduled Medication Order 12/03/2020 12/04/2020 12/05/2020 acetaminophen tablet 1,000 mg (TYLENOL) 0358 (Given - Provider: Luis Bautista R.N.)0908 (Given - Provider: Linda JohnsonS.NLisa, R.N., CNL)1524 (Not Given - Provider: Linda JohnsonS.NLisa, R.N., CNL - Reason: Patient/family refused) 0248 (Given - Provider: Leora hunter R.N.)0946 (Given - Provider: Linda JohnsonS.N., R.N., CNL)1547 (Given - Provider: Linda JohnsonS.NLisa, R.N., CNL)2145 (Given - Provider: Leora Cho R.N.) 0323 (Given - Provider: Leora Cho R.N.)0903 (Given - Provider: Sydni Sun R.N.)1548 (Given - Provider: Analia Das RLisaNLisa) 1,000 [...] (PLAVIX) 0800 (Given - Provid er: Linda JohnsonS.N., R.N., CNL) 0803 (Given - Provider: Linda JohnsonS.NLisa, R.N., CNL) 0832 (Given - Provider: Sydni Sun R.N.) 75 mg, oral, Daily, First dose on Sat12/03/20 at 0900 heparin (porcine) injection 5,000 Units 0626 (Given - Provider: Luis Bautista R.N.)1409 (Given - Provider: Linda JohnsonS.NLisa, R.NLisa, CNL)2125 (Given - Provider: Leora Cho R.N.) 0635 (Given - Provider: Leora Cho R.N.)1548 (Given - Provider: Linda JohnsonS.NLisa, R.NLisa, MARCOSL)2145 (Given - Provider: Leora Cho R.N.) 0623 (Given - Provider: Leora Cho R.N.)1435 (Given - Provider: Sydni Sun R.N.) 5,000 Units, subcutaneous, Every 8 hours scheduled, First dose on Sat11/28/20 at 1400 insulin aspart U-100 (Carbohydrate Count ) injection 0-20 Units (NovoLOG FlexPen) 0901 (Given - Provider: Linda JohnsonS.NLisa, R.NLisa, MARCOSL)1304 (Given - Provider: Linda JohnsonS.NLisa, R.NLisa, MARCOSL - Comment: ordered late)1928 (Given - Provider: Leora Cho R.N. - Comment: eating dinner now) 0904 (Given - Provider: Kaila Johnson.S.N., R.NLisa, CNL)1238 (Given - Provider: Linda JohnsonS.N., R.NLisa, CNL)193 (Given - Provider: Leora Cho R.N. - Comment: Pt just finished dinner.) [...] xPen) 0807 (Not Given - Provider: Linda JohnsonS.N., R.N., CNL - Reason: Order parameters not met)1107 (Given - Provider: Linda JohnsonS.NLisa, R.N., CNL)1924 (Given - Provider: Leora Cho R.N. - Comment: eating dinner now) 0801 (Not Given - Provider: Linda JohnsonS.NLisa, R.N., CNL - Reason: Order parameters not met)1235 (Given - Provider: Linda JohnsonSLisaN., R.N., CNL) 0900 (Not Given - Provider: [...] 1 754 (Not Given - Provider: Linda JohnsonS.NLisa, R.NLisa, CNL - Reason: Order parameters not met) 339: 10 units, 340 - 379: 12 units, 380 - 399: 13 units, Greater than 399: Call service writing Insulin orders insulin glargine injection 8 Units 2125 (Given - Provi monse: Leora Cho R.N.) 2100 (Given - Provider: Leora Cho R.N.) 8 Units, subcutaneous, Daily at bedtime, First dose (after last modification) on Sat12/02/20 at 2100 lidocaine 5 % 1 patch (LIDODERM) 0800 (Medication Appl ied - Provider: Katelyn Johnson, R.NLisa, MARCOSL)2037 (Medication Removed - Provider: Leora Cho R.N.) 0803 (Medication Applied - Provider: Katelyn Brunson, R.NLisa, [place])2020 (Medication Removed - Provider: Leora Cho R.N.) 0832 (Medication Applied - Provider: Sydni Sun R.N.)1637 (Due: Medication Removed - Provider: Discharge Provider, Automatic - Comment: Time automatically adjusted from order being discontinued) 1 patch, transdermal, Administer over 12 Hours, Daily, First dose on Sat11/28/20 at 1245, Remove after 12 hours. losartan tablet 100 mg (COZAAR) 0803 (Gi laxmi - Provider: Katelyn Johnson, Chandan.NLisa, IRV[place]) 0832 (Given - Provider: Sydni Sun R.N.) 100 mg, oral, Daily, First dose (after last modificati on) on Sat12/04/20 at 0900 losartan tablet 25 mg (COZAAR) (COMPLETED) 1501 (Given - Provider: Katelyn Johnson, R.N., MARCOSL) 25 mg, oral, Once, On 12/03/20 at 1230, For 1 dose losartan tablet 50 mg (COZAAR) (CANCELED) 0800 (Given - Provider: Katelyn Johnson, R.N., [place]) 50 mg, oral, Daily, First dose (after last modification) on Sat11/29/20 at 0900 melatonin tablet 5 mg 2021 (Given - Provider: Leora mccollum R.N.) 2144 (Given - Provider: Leora Cho R.N.) 5 mg, oral, Daily at bedtime, First dose on Sat12/01/20 at 2100 metoprolol tartrate tablet 25 mg (LOPRESSOR) (CANCELED ) 08 (Given - Provider: Katelyn Johnson, R.NLisa, MARCOSL) 25 mg, oral, 2 times daily, First dose on Sat11/28/20 at 2100 metoprolol tartrate tablet 50 mg (LOPRESSOR) 2021 (Giv en - Provider: Carrie RaglandNLisa) 08 (Given - Provider: Katelyn Johnson, R.NLisa, MARCOSL)2145 (Given - Provider: Leora Cho R.N.) 0832 (Given - Provider: Sydni Sun R.N.) 50 mg, oral, 2 times daily, First dose ( after last modification) on Sat12/03/20 at 2100 cuxtnqndahvt-tbwg-NK-Ca-minerals 400 mcg (folic acid) tablet 1 tablet (THERAPEUTIC-M) 08 (Given - Provider: Katelyn Johnson, R.NLisa, MARCOSL) 08 (Given - Provider: Katelyn Johnson, R.N., MARCOSL) 0832 (Given - Provider: Sydni Sun R.N.) 1 tablet, oral, Daily, First dose on Sat11/29/20 at 0900 nicotine 21 mg/24 hr 1 patch (NICODERM CQ) 0808 (Not G iven - Provider: Linda JohnsonSLisaNLisa, R.NLisa, CNL - Reason: Patient/family refused) 0802 (Not Given - Provider: Linda JohnsonS.NLisa, R.N., MARCOSL - Reason: Patient/family refused) 0831 (Not Given - Provider: Sydni Sun R.N. - Reason: Patient/family refused) 1 patch, transdermal, [...] polyethylene glycol powder packet 17 g (MIRALAX) 0800 (Given - Provider: Jim Bradley M.S.NLisa, R.NLisa, MARCOSL) 08 (Given - Provider: Katelyn Johnson, Chandan.NLisa, MARCOSL) 0831 (Given - Provider: Sydni Sun R.N.) 17 g, oral, Daily, First dose (after las t modification) on Sat12/02/20 at 0900, Dissolve in 240 mLs (8 ounces) of water prior to giving. Avoid mixing with starch-based thickened liquids. sennosides-docusate sodium 8.6-50 mg per tablet 2 tabl et (SENOKOT-S) 0800 (Given - Provider: Linda JohnsonSLisaN., R.N., MARCOSL)2043 (Not Given - Provider: Leora Cho R.N. - Reason: Patient/family refused) 08 (Given - Provider: Linda JohnsonSKristin, R.NLisa, MARCOSL)2144 (Given - Provider: Leora Cho R.N.) 0831 (Given - Provider: Sydni Sun R.N.) 2 tablet, oral, 2 times daily, First dos e (after last modification) on Sat12/02/20 at 0900 sodium chloride 0.9 % injection 10 mL 0900 (Given - Pr ovider: Katelyn Johnson, R.NLisa, MARCOSL)2129 (Given - Provider: Leora Cho R.N.) 0804 (Given - Provider: Jim Bradley M.S.NLisa, R.NLisa, CNL)2226 (Given - Provider: Leora Cho R.N.) 0833 [...] Leora Cho R.N.) 1235 (Given - Provider: Jim Bradley M.S.NLisa, R.N., MARCOSL)214 (Given - Provider: Leora Cho R.N.)2147 (Given - Provider: Leora Cho R.N.) 1 application, topical, 3 times daily [place] N, itching, irritation, rash, Starting on Sat12/03/20 at 2039 ipratropium-albuteroL 0.5-2.5 mg/3 mL nebulizer solution 3 [...] mg (ROXICODONE) 0754 (Given - Pr ovider: Jim Bradley, M.S.N., R.N., CNL)1103 (Given - Provider: Jim Bradley, M.S.N., R.N., CNL)1409 (Given - Provider: Jim Bradley, M.S.N., R.N., CNL)1722 (Given - Provider: Jim Bradley, M.S.N., R.N., CNL) 0248 (Given - Provider: Leora Cho R.N.)0635 (Given - Provider: Leora Cho R.N.)0946 (Given - Provider: Jim Bradley M.S.N., R.N., CNL)1235 (Given - Provider: Jim Bradley, M.S.N., R.N., CNL) 0323 (Given - Provider: Leora hunter R.N.)0623 (Given - Provider: Leora Cho R.N.)0943 (Given - Provider: Sydni Sun R.N.)1258 (Given - Provider: Fady Abreu R.N.)1548 (Given - Provider: Analia Das R.NLisa) 5 mg, oral, Every 3 hours PRN, moderate pain or score 4-6 of 10, severe pain or score 7-10 of 10, Starting on 12/03/20 at 0722 2023 (Given - Provider: Leora Cho RLisaN.)2324 (Given - Provider: Leora Cho R.N.) 1547 (Given - Provider: iJm Bradley M.S.N., R.N., CNL)1934 (Given - Provider: Leora Cho R.N.)2224 (Given - Provider: Leora Cho R.N.) documented in this encounter Additional Health Concerns Infection Onset Date Last Indicated Resolved Time COVID19 Pending 11/28/2020 11/28/2020 11/28/2020 5:01 AM CDT documented as of this encounter
--- OUTSIDE RECORDS SUMMARY | 2022-04-02 01:30 | XMS_ITS | Encounter Summary ---
:1965 Author Organization [facility] Address [address] [place] [address] Care Team Providers Name Role Phone Unavailable Primary Care Provider Unavailable Encounter Details Date Type Department Care Team Description 09/18/2007 Hospital Encounter HX [facility] Luis Lomeli M.D. [address] [place] [phone] (Wo rk) Social History Tobacco Use Types [...] or relatives? How often do you attend anabaptist or More than 4 times per year 02/09/2021 druze services? Do you belong to any clubs or Yes 02/09/2021 organizations such as anabaptist groups, unions, fraternal or athletic groups, or [...] place to sleep or slept in a [place] [facility] [place] [facility] (including now)? Sex Assigned at Date Recorded Male 02/09/2021 2:11 PM CDT documented as of this encounter Plan of Treatment Not on filedocumented as of this encounter Visit Diagnoses Not on filedocumented in this encounter
--- OUTSIDE RECORDS SUMMARY | 2022-04-02 01:30 | XMS_ITS | Encounter Summary ---
:1965 Author Organization [facility] Address [address] [place] [address] Care Team Providers Name Role Phone Elsewhere, Pcp Primary Care Provider Unavailable Encounter Details Date Type Department Care Team Description 12/01/2020 Orders Only [facility], [facility], [facility], [facility], [facility] Floo r [address] [facility] [address] [place] [id number] [phone] (Wo rk) Social History Tobacco Use Types [...] documented as of this encounter Care Teams Patient Accounts Manager Relationship Specialty Start Date End Date Elsewhere, Pcp PCP - General 02/22/21 documented as of this encounter
--- OUTSIDE RECORDS SUMMARY | 2022-04-02 01:31 | XMS_ITS | Clinical Summary ---
:1965 Author Organization [facility] [place] [address] Care Team Providers Name Role Phone Trish Hinton MD Primary Care Provider Allergies No known active allergies Medications Medication Sig Dispensed Refills Start End Date Status Date aspirin (ECOTRIN) Take 1 Tablet 0 Active 81 mg enteric (81 mg) by 1 coated tablet mouth once daily with a meal. atorvastatin Take 1 Tablet 0 Act sincere (LIPITOR) 40 mg (40 mg) by 2 tablet mouth at bedtime. omeprazole Take 2 0 Active (PRILOSEC) 20 mg Capsules (40 2 Delayed-Release mg) by mouth capsule once daily before a meal. tiZANidine TAKE 1 TABLET 0 Activ e (ZANAFLEX) 2 mg BY MOUTH EVERY 2 tablet 8 HOURS NEEDED FOR MUSCLE SPASMS FOR UP TO 10 DAYS tiZANidine TAKE 1 0 Active (ZANAFLEX) 4 mg TABLET(4 MG) 2 tablet BY MOUTH EVERY NIGHT NEEDED FOR MUSCLE SPASMS multivitamin (MVI) Take 1 Tablet 0 Active tablet by mouth once daily. carvediloL (COREG) Take 1 Tablet 180 Tablet 3 Active 12.5 mg (12.5 mg) by 2 tabletIndications: mouth two Essential times daily. hypertension acetaminophen Take 1,000 mg 0 Ac tive (TYLENOL EXTRA by mouth every 1 STRGTH) 500 mg 6 hours. tablet albuterol HFA Inhale 2 Puffs 0 A ctive (Ventolin HFA) 90 by mouth every 1 mcg/actuation 4 hours if inhaler needed. blood glucose ctl Glucose 0 Ac tive high,nml,low soln control 1 solution provides an easy way to ensure accurate blood glucose testing. blood sugar check every 0 05/01/19 Active diagnostic (Blood morning 2 23 Glucose Test) strip Blood-Glucose Meter Test as 0 Active directed for 1 diabetes control. hydrOXYzine HCL TAKE 1 0 Acti ve (ATARAX) 50 mg TABLET(50 MG) 2 tablet BY MOUTH EVERY NIGHT NEEDED FOR INSOMNIA hydrOXYzine HCL 0 Acti ve (ATARAX) 25 mg 2 tablet coenzyme q10 30 mg Take by mouth. 0 Active capsule metFORMIN Take 1 Tablet 180 Tablet 3 Activ e (GLUCOPHAGE XR) 500 (500 mg) by 2 mg Extended-Release mouth two tabletIndications: times daily Controlled type 2 with meals. diabetes mellitus with diabetic polyneuropathy, without long-term current use of insulin (HC) furosemide (LASIX) Take 1 Tablet 90 Tablet 3 Active 20 mg (20 mg) by 2 tabletIndications: mouth once Ischemic daily if cardiomyopathy needed (Take one tablet 20mg if more than 3 pound weight gain.). Take one tablet 20mg if more than 3 pound weight gain. sacubitril-valsarta Take 1 Tablet 180 Tablet 3 Active n (ENTRESTO 24 by mouth two 2 MG-26 MG TABLET) times daily. 24-26 mg tabletIndications: Essential hypertension, Generalized ischemic myocardial dysfunction metFORMIN TAKE 4 TABLETS 0 03/28/20 Disco ntinued (GLUCOPHAGE XR) 500 BY MOUTH EVERY 2 22 (*Medication mg Extended-Release MORNING WITH adjustment) tablet BREAKFAST furosemide (LASIX) Take 20 mg by 0 0 Discontinued 20 mg tablet mouth. 1 22 (*Medic ation adjustment ) ubiquinol-pyrroloqu Take 100 mg by 0 03/26 Discontinued in quinone 100-10 mouth two 2 22 (* Patient states mg cap times daily. no long er taking/Not on sending fa cility list) valsartan (DIOVAN) Take 1 Tablet 90 Tablet 3 0 Discontinued 80 mg (80 mg) by 2 22 (*Med tabletIndications: mouth once complete/Regimen Coronary artery daily. comp lete/Level disease, of care ch graeme) unspecified vessel or lesion type, unspecified whether angina present, unspecified whether hoh or transplanted heart furosemide (LASIX) Take 1 Tablet 30 Tablet 0 0 Discontinued 20 mg (20 mg) by 2 22 tabletIndications: mouth once Ischemic daily if cardiomyopathy needed (swelling or shortness of breath). furosemide (LASIX) TAKE 1 90 Tablet 0 03/30/20 D iscontinued 20 mg TABLET(20 MG) 2 22 (Reord er tabletIndications: BY MOUTH EVERY (E-cancel not Ischemic DAY NEEDED sent)) cardiomyopathy FOR SWELLING OR SHORTNESS OF BREATH sacubitril-valsarta Take 1 Tablet 180 Tablet 3 03/30 Discontinued n (ENTRESTO 24 by mouth two 2 22 (R eorder MG-26 MG TABLET) times daily. (E-cancel not 24-26 mg sent)) tabletIndications: Essential hypertension, Generalized ischemic myocardial dysfunction Active Problems Problem Noted Date Gastroesophageal reflux disease with esophagitis 04/07 Chronic bilateral low back pain with sciatica 04/07/20 21 Presence of automatic (implantable) cardiac defibrilla tor 03/21/2021 Overview: Formatting of this note might be differe nt from the original. Single chamber ICD insertion 03/21/[address] Sawyer. Formatting of this note might be differe nt from the original. Formatting of this note might be differe nt from the original. Single chamber ICD insertion 03/21/[address] Sawyer. Hyperlipidemia 03/13/2021 Generalized ischemic myocardial dysfunction 02/27/2021 Overview: Formatting of this note might be differe nt from the original. Added automatically from request for [facility] [phone] Right carotid bruit 12/09/2020 History of pneumothorax 12/09/2020 Coronary artery disease involving hoh coronary melonie ry of hoh heart 11/28/2020 without angina pectoris Overview: Formatting of this note might be differe nt from the original. Formatting of this note might be differe nt from the original. Added automatically from [facility] for [facility] [phone] Last Assessment & Plan: Formatting of this note might be differe nt from the original. Stable without angina Unspecified essential hypertension 03/16/2008 Resolved Problems Problem Noted Date Resolved Date Tobacco use disorder 03/16/2008 09/28/2020 Encounters Date Type Specialty Care Team Description 03/30/2022 Ancillary Procedure Arrived 03/30/2022 Telephone Humberto Jones Medication Management; MD [facility] High Blood Pres sure 03/30/2022 Orders Only Melody Briones, TERENCE <No scans attached> 03/30/2022 Travel 03/28/2022 Refill Humberto Jones Refill Requ est MD [facility] (Furosemide) 03/28/2022 Telephone Edgar Hatch EGD MD 03/26/2022 Orders Only Lab, [facility] 03/26/2022 Office Visit Trish Hinton [facility]; Hip Pain/problem (x 1 day); Cough 03/26/2022 Travel 03/20/2022 Orders Only Lab, [facility] 03/20/2022 Telephone Clinic, [place] Referral 03/15/2022 Telemedicine Humberto Jones MD 03/15/2022 Travel 03/13/2022 Telephone Humberto Jones Medication Management MD [facility] (High BPs) 03/02/2022 Telephone Humberto Jones Blood Press ure MD [facility] 02/15/2022 Office Visit Humberto Jones CV General Cardiology MD [facility] New (BP not und er control) 02/15/2022 Travel from Last 3 Months Immunizations Name Administration Dates Next Due Influenza, IIV3 (Age >=3 years) 03/16/2008 Td, Preservative Free (age >= 7 Years) 10/26/2004 Family History Medical History Relation Name Comments Heart Disease Brother 1 heart attack 48 y/o Diabetes Brother 2 Heart Disease Father 69 Hypertension Father Other Mother COPD 67 y/o Relation Name Status Comments Brother 1 Brother 2 Father Mother Social History Tobacco Use Types Packs/Day Years Used Date Former Smoker Cigarettes 0.5 Smokeless Tobacco: Never Used Tobacco Cessation: Counseling Given: Yes Alcohol Use Standard Drinks/Week Comments No 0 (1 standard drink = 0.6 oz pure alcoho l) Sex Assigned at Date Recorded Not on file COVID-19 Exposure Response Date Recorded In the last 10 days, have you been in contact with No / Unsu re 03/30/2022 9:33 AM WATERMASTER someone who was confirmed or suspected to have Coronavirus/COVID-19? Obstetrics History Last Filed Vital Signs Vital Sign Reading Time Taken Comments Blood Pressure 149/92 03/26/2022 1:32 PM WATERMASTER Pulse 73 03/26/2022 1:26 PM WATERMASTER Temperature 36.6 ??C (97.9 ??F) 09/28/2020 10:15 AM CDT Respiratory Rate 14 09/28/2020 10:15 AM CDT Oxygen Saturation 98% 03/26/2022 1:26 PM WATERMASTER Inhaled Oxygen Concentration - - Weight 79.8 kg (176 lb) 03/26/2022 1:26 PM WATERMASTER Height 179 cm (5' 10.47) 03/26/2022 1:26 PM WATERMASTER Body Mass Index 24.92 03/26/2022 1:26 PM WATERMASTER Plan of Treatment Upcoming Encounters Date Type Specialty Care Team Description 04/12/2022 Orders Only Lab, [facility] 04/12/2022 Office Visit Nisha Canseco ie, [employer] [address] [place], [place] [address] ( rk) 06/11/2022 Preop Visit Trish Hinton MD [address] [place] [place] [address] (Wo rk) 06/18/2022 Procedure Only Edgar Hatch MD [address] [place] [address] ( mitzy) Health Maintenance Due Date Last Done Comments COVID-19 vaccine series (#1) 1966 Pneumococcal series for age 19-64 (1 1972 - PCV) Tdap 1977 HIV for age 15-65 1981 Hepatitis C screening for age 18-79 1984 Hepatitis B series for Diabetes (1 of 1985 3 - Risk 3-dose series) Colonoscopy through age 75 2011 Tetanus booster 10/26/2014 10/26/2004 Lipids for age 45-75 03/17/2015 03/17/2010, 03/16/2008 Zoster (shingles) series for age 50+ 2016 (1 of 2) Influenza for age 50-64 12/28/2021 03/16/2008 BMI (ht and wt on same day) for age 1103/26/2023 03/26/2022, 02/15/2022, 18+ 09/28/2020 Depression screening for age 12+ 03/28/2023 03/28/2022, , 03/26/2022 Procedures Procedure Name Priority Date/Time Associated Diagnosis Comme nts XR CHEST 2 VIEWS PA Routine 03/30/2022 9:45 Pleural effu jj on left Results for this AND LATERAL AM WATERMASTER History of pneumothorax proc edure are in the results section. URINE ALBUMIN TO Routine 03/26/2022 2:54 Controlled type 2 Res ults for this CREATININE RATIO, PM WATERMASTER diabetes mellitus with procedure are in RANDOM diabetic polyneuropathy, the results without long-term section. current use of insulin (HC) BRAIN NATRIURETIC Routine 03/26/2022 2:50 Non-ischemic Results for this PEPTIDE PM WATERMASTER cardiomyopathy ( HC) procedure are in Other heart failure (HC) the results section. TSH WITH REFLEX Routine 03/26/2022 2:50 Acquired right f oot drop Results for this PM WATERMASTER Other specified procedure ar e in [facility]ath[facility] of the resu lts bilateral lower limbs sectio n. VITAMIN B12 Routine 03/26/2022 2:50 Acquired right foot drop Results for this PM WATERMASTER procedure are i n the results section. HEMOGLOBIN A1C Routine 03/26/2022 2:50 Controlled type 2 Resul ts for this PM WATERMASTER diabetes mellitus with proce dure are in diabetic polyneuropathy, the results without long-term section. current use of insulin (HC) COMP METABOLIC Routine 03/26/2022 2:50 Ischemic cardiomyopathy Results for this PANEL PM WATERMASTER procedure are i n the results section. from Last 3 Months Results XR CHEST 2 VIEWS PA AND LATERAL (03/30/2022 9:45 AM WATERMASTER) Anatomical Region Laterality Modality CHEST, THORAX, Lung, HEART Computed Radi ography Specimen (Source) Anatomical Collection Method Collection Time Re ceived Time Location / / Volume Laterality 03/30/2022 10:00 AM WATERMASTER Impressions 03/30/2022 10:00 AM WATERMASTER Small left pleural effusion. No pneumothorax. Dictated by Luis Dash MD @ Mar ??2021 10:00AM (Electronically Signed) ?? Narrative 03/30/2022 10:00 AM WATERMASTER For Patients: ??As a result of the Cures Act, medical imaging exams and procedure report s are released immediately into your [facility] medical record. ??You may view this report before your referring provider. ??If you have questions, please contact your health care provider. INDICATION: Left pleural effusion TECHNIQUE: Chest 2 views COMPARISON: None FINDINGS: Small left pleural effusion is present. No right-sided effusion. Mild enlargement of the cardiac silhouette. COPD/emphysema. No pneumothorax. Diffuse related wire intact. Areas of scarring bilaterally. No fracture. Procedure Note Luis Dash MD - 03/30/2022For matting of this note might be different from the original. For Patients: As a result of the Cures Act, medical imaging exams and procedure reports are released immediately into your electronic medical record. You may view this report before your referring provider. If you have questions, please contact [facility] health care provider. INDICATION: Left pleural effusion TECHNIQUE: Chest 2 views COMPARISON: None FINDINGS: Small left pleural effusion is present. No right-sided effusion. Mild enlargement of the cardiac silhouette. COPD/emphysema. No pneumothorax. Diffuse related wire intact. Areas of scarring bilaterally. No fracture. IMPRESSION: Small left pleural effusion. No pneumoth orax. Dictated by Luis Dash MD @ Mar 30 10:00AM (Electronically Signed) Trish Hinton MD GENERAL IMAGING (ABNORMAL) URINE ALBUMIN TO CREATININE RATIO, RANDOM (03/26/2022 2:54 PM WATERMASTER) [facility] Method Time Signature ALB RAND URINE 30.9 mg/L 03/27/2022 [facility] 8:22 AM [facility] CREATININE,URIN 0.36 g/L 03/27/2022 [facility] E 8:22 AM [facility]STER [facility] ALBUMIN TO 85.8 (H) <30.0 mg/g 03/27/2022 [facility] CREATININE creat 8:22 AM [facility] RATIO,RAND UR TRAL LABORATORY Specimen Anatomical Collection Method Collection Time Receive d Time (Source) Location / / Volume Laterality Urine URINE SPECIMEN / Non-Blood / 03/26/2022 2:54 PM 03/26 2:54 Unknown Unknown WATERMASTER PM WATERMASTER Narrative [facility] - 03/27/2022 8:22 AM WATERMASTER If Albumin to Creatinine Ratio is elevated, consider the following: ? Elevations seen with incipient nephr opathy associated ?? with diabetes mellitus or hypertensi on. Stress, exercise, ?? hematuria, and urinary tract infecti on may also produce ?? elevated results. If clinically genevieve cated, confirm with ?? 24 Hour Albumin to Creatinine Ratio. Trish Hinton MD URINE Performing Organization Address City/State/ZIP Code Phon e Number [facility] [address] [place] [address] LABORATORY-[facility] 2000 LABORATORY TSH WITH REFLEX (03/26/2022 2:50 PM WATERMASTER) athologist Signature TSH 2.34 0.35 - 4.94 03/27/2022 [facility] [employer] uIU/mL 8:10 PM [facility]STER [facility] LABORATORY Specimen Anatomical Collection Method / Collection Time Recei teo Time (Source) Location / Volume Laterality Blood BLOOD SPECIMEN / Venipuncture / 03/26/2022 2:50 2021 2:52 Unknown Unknown PM WATERMASTER PM WATERMASTER Narrative [facility] 03/27/2022 8:10 PM WATERMASTER In Adults, TSH values between 5.00 and 10.00 uIU/ml do not necessarily indicate the presence of Hyp othyroidism. Correlation with clinical findings such as presence of goiter and/or Thyroperoxidase (TPO) Antibody ma y be helpful. For more information please refer to [facility] 20 ; 291: [phone]. Trish Hinton MD CHEMISTRY Performing Organization Address City/State/ZIP Code Phon e Number [facility] [address] [facility] [address] LABORATORY-[facility] 2000 LABORATORY (ABNORMAL) BRAIN NATRIURETIC PEPTIDE (03/26/2022 2:50 PM WATERMASTER) athologist Signature BRAIN VITA 203 (H) <100 pg/mL 03/28/2022 [facility] PEPTIDE 12:07 AM W[facility]MASTER [facility] Specimen Anatomical Collection Method / Collection Time Recei teo Time (Source) Location / Volume Laterality Blood BLOOD SPECIMEN / Venipuncture / 03/26/2022 2:50 2021 2:52 Unknown Unknown PM WATERMASTER PM WATERMASTER Trish Hinton MD CHEMISTRY Performing Organization Address City/[facility] Phon e Number [facility] [address] [facility] [address] LABORATORY-C[facility]TR[facility] 2000 LABORATORY HEMOGLOBIN A1C MONITORING (POCT) (03/26/2022 2:50 PM WATERMASTER) athologist Signature HEMOGLOBIN A1C 5.3 <=6.4 % 03/26/2022 [facility] MONITORING 3:08 PM WATERMASTER [place] (POCT) [facility] Specimen Anatomical Collection Method / Collection Time Recei teo Time (Source) Location / Volume Laterality Blood BLOOD SPECIMEN / Venipuncture / 03/26/2022 2:50 2021 2:52 Unknown Unknown PM WATERMASTER PM WATERMASTER Narrative [facility] - 2021 3:08 PM WATERMASTER ? (<=6.9%) ? Indicates good control ? (7.0% to 7.9%) ? Indicates fa ir control ? (>=8.0%) ? Indicates poor control ?? NOTE: ??These thresholds are guideli elizabeth and ?individual targets may va ry. Falsely low levels may be seen with: Recent Transfusion, Recent Significant B lood Loss, Hemolytic Diseases, or Falsely elevated levels may be seen with : Untreated Anemias, Splenectomy ? Trish Hinton MD CHEMISTRY Performing Organization Address City/[facility] Phon e Number [facility] [address] [place] [address] VITAMIN B12 (03/26/2022 2:50 PM WATERMASTER) athologist Signature VITAMIN B12 310 180 - 914 03/27/2022 [facility] pg/mL 11:17 AM WATERMASTER LABORATORY-[facility]ENT [facility] LABORATORY Specimen Anatomical Collection Method / Collection Time Recei teo Time (Source) Location / Volume Laterality Blood BLOOD SPECIMEN / Venipuncture / 03/26/2022 2:50 2021 2:52 Unknown Unknown PM WATERMASTER PM WATERMASTER Trish Hinton MD CHEMISTRY Performing Organization Address City/State/ZIP Code Phon e Number [facility] [address] [place] [address] LABORATORY-CENTRAL 2000 LABORATORY COMP METABOLIC PANEL (03/26/2022 2:50 PM WATERMASTER) athologist Signature SODIUM 141 135 - 145 03/27/2022 [facility] mmol/L 7:56 PM W[facility]MASTER [facility] POTASSIUM 4.3 3.5 - 5.0 03/27/2022 [facility] mmol/L 7:56 PM [facility]STER [facility] CHLORIDE 104 98 - 110 03/27/2022 [facility] mmol/L 7:56 PM [facility]STER [facility] CO2,TOTAL 30 21 - 31 03/27/2022 [facility] mmol/L 7:56 PM [facility]STER [facility] ANION GAP 7 5 - 18 03/27/2022 [facility] 7:56 PM [facility]STER [facility] GLUCOSE 82 65 - 100 03/27/2022 [facility] mg/dL 7:56 PM [facility]STER [facility] CALCIUM 9.7 8.5 - 10.5 03/27/2022 [facility] mg/dL 7:56 PM [facility] BUN 11 8 - 25 03/27/2022 [facility] mg/dL 7:56 PM [facility] CREATININE 0.78 0.72 - 03/27/2022 [facility] 1.25 mg/dL 7:56 PM [facility] BUN/CREAT RATIO 14 10 - 20 03/27/2022 [facility] 7:56 PM [facility] ALBUMIN 4.4 3.5 - 5.2 03/27/2022 [facility] g/dL 7:56 PM [facility] PROTEIN,TOTAL 7.4 6.0 - 8.0 03/27/2022 [facility] g/dL 7:56 PM [facility] GLOBULIN 3.0 2.0 - 3.7 03/27/2022 [facility] g/dL 7:56 PM [facility]STER [facility] A/G RATIO 1.5 1.0 - 2.0 03/27/2022 [facility] 7:56 PM [facility]STER [facility] BILIRUBIN,TOTAL 0.4 0.2 - 1.2 03/27/2022 [facility] mg/dL 7:56 PM [facility]STER [facility] ALK PHOSPHATASE 61 50 - 136 03/27/2022 [facility] IU/L 7:56 PM [facility]STER [facility] ALT (SGPT) 9 8 - 45 03/27/2022 [facility] IU/L 7:56 PM [facility]STER [facility] AST (SGOT) 13 2 - 40 03/27/2022 [facility] IU/L 7:56 PM [facility]STER [facility] eGFR >90 >90 03/27/2022 [facility] mL/min/1.7 7:56 PM [facility]STER LAB[facility]AT[facility] 3m2 TRAL LABORATORY Comment: As of 2021, eGFR is calcu lated by the CKD-EPI creatinine equation without race adjustment. eGFR can be inf luenced by muscle mass, exercise, and diet. The reported eGFR is an estimation only and is only applicable if the renal function is stable. Specimen Anatomical Collection Method / Collection Time Recei teo Time (Source) Location / Volume Laterality Blood BLOOD SPECIMEN / Venipuncture / 03/26/2022 2:50 2021 2:52 Unknown Unknown PM WATERMASTER PM WATERMASTER Humberto Jones MD CHEMISTRY Performing Organization Address City/State/ZIP Code Phon e Number [facility] [address] [place] [address] LABORATORY-CENTR[facility] 2000 LABORATORY from Last 3 Months Insurance Payer Benefit Plan / Subscriber ID Effective Dates Phone Addre ss Type Group MEDICARE PART B MEDICARE PART B [id number] 2008-Present ATTN: CLAIMS - HB USE ONLY HB ONLY [address] [place] [address] MEDICARE - PB MEDICARE PB [id number] 2008-Present ATT N: CLAIMS USE ONLY ONLY [address] [place] [address] Care Teams Client Relation Specialist Relationship Specialty Start Date End Date Trish Hinton MD PCP - General Family Practice 03/26/22 [address] [place] [address]
--- OUTSIDE RECORDS SUMMARY | 2022-04-02 01:31 | XMS_ITS | Encounter Summary ---
:1965 Author Organization [facility] Address [address] [place] [address] Care Team Providers Name Role Phone Elsewhere, Pcp Primary Care Provider Unavailable Encounter Details Date Type Department Care Team Description 01/01/2003 Historical Ophthalmology RST OPH Man Yuen M.D. [address] [place] [address] (Wo rk) Social History Tobacco Use Types [...] More than 4 times per year 02/09/2021 episcopalian services? Do you belong to any clubs [...] place to sleep or slept in a custodial (including now)? Sex Assigned at Date Recorded Male 02/09/2021 2:11 PM CDT documented as of this encounter [facility] Man Castle M.D. - 01/01/2003 12:00 AM CDT Eye General CHIEF COMPLAINT general examination HISTORY OF PRESENT ILLNESS Patient feels distance vision may be slightly decreased, but denies difficulty reading or seeing road signs. Will have mild to moderate irritation during allergy season only. Denies flashes, floaters, or diplopia. IMPRESSION / REPORT / PLAN #1 Astigmatism No Rx recommended. DIAGNOSIS #1 Astigmatism CDM Reports - EYEGEN Id: [id number] Status: Fnl documented in this encounter Plan of Treatment Not on filedocumented as of this encounter Visit Diagnoses Not on filedocumented in this encounter Additional Health Concerns Infection Onset Date Last Indicated Resolved Time COVID19 Pending 11/28/2020 11/28/2020 11/28/2020 5:01 AM CDT COVID19 Pending 01/26/2021 01/26/202101/2601/26/2021 12:29 PM CDT COVID19 01/26/2021 01/26/2021 02/15/2021 4:55 AM CDT documented as of this encounter Care Teams Field Secretary Relationship Specialty Start Date End Date Elsewhere, Pcp PCP - General 02/22/21 documented as of this encounter
--- OUTSIDE RECORDS SUMMARY | 2022-04-02 01:31 | XMS_ITS | Encounter Summary ---
:1965 Author Organization [facility] Address [address] [place] [address] Care Team Providers Name Role Phone Unavailable Primary Care Provider Unavailable Encounter Details Date Type Department Care Team Description 02/11/2003 Hospital Encounter HX NO MAPPING Social History Tobacco Use Types Packs/Day Years [...] or relatives? How often do you attend quaker or More than 4 times per year 02/09/2021 restoration services? Do you belong to any clubs or Yes 02/09/2021 organizations such as quaker groups, unions, fraternal or athletic groups, or [...]
--- OUTSIDE RECORDS SUMMARY | 2022-04-02 01:31 | XMS_ITS | Encounter Summary ---
:1965 Author Organization [facility] Address [address] [place] [address] Care Team Providers Name Role Phone Unavailable Primary Care Provider Unavailable Encounter Details Date Type Department Care Team Description 03/05/2003 Hospital Encounter HX NO MAPPING Social History [...]
--- OUTSIDE RECORDS SUMMARY | 2022-04-02 01:31 | XMS_ITS | Encounter Summary ---
:1965 Author Organization [facility] Address [address] [place] [address] Care Team Providers Name Role Phone Unavailable Primary Care Provider Unavailable Encounter Details Date Type Department Care Team Description 03/04/2003 Hospital Encounter HX NO MAPPING Social History [...]
--- OUTSIDE RECORDS SUMMARY | 2022-04-02 01:31 | XMS_ITS | Encounter Summary ---
:1965 Author Organization [facility] Address [address] [place] [address] Care Team Providers Name Role Phone Unavailable Primary Care Provider Unavailable Encounter Details Date Type Department Care Team Description 12/31/2002 Hospital Encounter HX NO MAPPING Social History [...] or slept in a penitentiary (including now)? Sex Assigned at Date Recorded Male 02/09/2021 2:11 PM CDT documented as of this encounter Plan of Treatment Not on filedocumented as of this encounter Procedures Procedure Name Priority Date/Time Associated Diagnosis Comme nts CT ABDOMEN PELVIS Routine 12/31/2002 1:45 PM Resu lts for this WITH IV CONTRAST CDT procedure a re in the results section. HXGENERAL PATHOLOGY Routine 12/31/2002 12:15 PM R esults for this REPORT CDT procedure are i n the results section. PUL HOME OVERNIGHT Routine 12/30/2002 10:01 PM OXIMETRY CDT documented in this encounter Results CT Abdomen Pelvis with IV Contrast (12/31/2002 1:45 PM CDT) Anatomical Region Laterality Modality Abdomen, Pelvis N/A Computed Tomography Specimen (Source) Anatomical Collection Method Collection Time Re ceived Time Location / / Volume Laterality 12/31/2002 1:45 PM CDT Narrative 12/31/2002 2:40 PM CDT 31-Dec-2002 13:45:00 ??Exam: CT ABDOMEN w & PELVIS w Indications: ABD/PEL - FAMILY HX OF GUT CA^ ORIGINAL REPORT - 31-Dec-2002 14:40:00 CT scan of the abdomen and pelvis with o ral and IV contrast material. No CT evidence for neoplasm of the GI tract. No evidence of a GI obstruction. Marked diffuse fatty transformation of the liver with mild hepatic enlargement. A few visible, but unenlarged nodes in the aortocaval region. Exam otherwise negative. Ind: 703.000 ?? [id number] ?? Electronically signed by: ?? Bob Simpson M.D. [id number] 31-Dec-2002 14:40 Procedure Note Mason Simpson M.D. - 08/01/2017Format ting of this note might be different from the original. 31-Dec-2002 13:45:00 Exam: CT ABDOMEN w & PELVIS w Indications: ABD/PEL - FAMILY HX OF GUT CA^ ORIGINAL REPORT - 31-Dec-2002 14:40:00 CT scan of the abdomen and pelvis with o ral and IV contrast material. No CT evidence for neoplasm of the GI tract. No evidence of a GI obstruction. Marked diffuse fatty transformation of the liver with mild hepatic enlargement. A few visible, but unenlarg ed nodes in the aortocaval region. Exam otherwise negative. Ind: 703.000 [id number] Electronically signed by: Bob Simpson M.D. [id number] 31-Dec-2002 14:40 Sunny Camacho M.D. IMG CT PROCEDURES Hx general Pathology Report (12/31/2002 12:15 PM CDT) Specimen Anatomical Collection Method Collection Time Receive d Time (Source) Location / / Volume Laterality 12/31/2002 12:15 12/31/2002 PM CDT 12:15 PM CDT Narrative [facility] - 12/31/2002 12:15 PM CDT ?12/31/2002 General Biopsy ? ([id number]) ? Requested By: ??Sunny Camacho M.D. ??[id number] ?? Additional Physician: ??Joseph ramirez M.D. [id number] ? TISSUE DESCRIPTION: [id number] ?? A. ??Antrum, Stomach biopsy: ??( 7 piec es 0.2-0.4 cm. in diameter) ?DIAGNOSIS: ?? Stomach, antrum, endoscopic biopsy: ??N ormal antral and fundic mucosa. ? 01/01/03 ??Thad Kemp M.D. [phone] ? Procedure Note 07/20/2017 12/31/2002 General Biopsy ([id number]) Requested By: Sunny Camacho M.D. [phone] Additional Physician: Joseph santacruz M.D. [id number] TISSUE DESCRIPTION: [id number] A1 A. Antrum, Stomach biopsy: ( 7 pieces 0 .2-0.4 cm. in diameter) DIAGNOSIS: Stomach, antrum, endoscopic biopsy: Nor mal antral and fundic mucosa. 01/01/03 Thad Kemp M.D. [id number] Historical Provider LAB PATHOLOGY/CYTOLOGY ORDER GRECIA Performing Organization Address City[facility] [place] Phon e Number [facility] - [address] PUL Home Overnight Oximetry (12/30/2002 10:01 PM CDT) Specimen (Source) Anatomical Collection Method Collection Time Re ceived Time Location / / Volume Laterality 12/30/2002 10:01 PM CDT Papito Villarreal M.D., Ph.D. PFT ORDERABLES Performing Organization Address [facility] [place] Phon e Number [facility] - [address] documented in this encounter Visit Diagnoses Not on filedocumented in this encounter
--- OUTSIDE RECORDS SUMMARY | 2022-04-02 01:31 | XMS_ITS | Encounter Summary ---
:1965 Author Organization [facility] Address [address] [place] [address] Care Team Providers Name Role Phone Unavailable Primary Care Provider Unavailable Encounter Details Date Type Department Care Team Description 04/05/2003 Hospital Encounter HX NO MAPPING Social History [...] More than 4 times per year 02/09/2021 rastafarian services? Do you belong to any clubs [...]
[2022-04-02] MEDS: levoFLOXacin 750 MG TABLET PO (03:00)
[2022-04-02] MEDS: FUROSEMIDE 10 MG/ML inj 40 MG IVP (03:00)
== END 2022-04-02 03:09 | disposition home or self-care (01) ==
PROVIDERS: Emergency Provider Family Medicine
DX: I50.9 Heart failure, unspecified (principal); J18.9 Pneumonia, unspecified organism; R55 Syncope and collapse
CPT/HCPCS: 36415; 71046; 71260; 74177; 80053; 83690; 83880; 84484; 85025; 85379; 86140; 93005; 96374; 99284; 99285; A9270; J1940; Q9967

== ENCOUNTER 2022-04-02 18:01 | Outpatient (CLI) | payer MEDICARE, SELFPAY ==
--- OUTSIDE RECORDS SUMMARY | 2022-04-09 07:35 | XMS_ITS | Encounter Summary ---
:1965 Author Organization [facility] Address [address] [place] [address] Care Team Providers Name Role Phone Elsewhere, Pcp Primary Care Provider Unavailable Encounter Details Date Type Department Care Team Description 05/18/2021 Orders Only Department of Cardiovascular Osman Bond M.D. Medicine in [place], [facility] [address] [place], [place] [address] [facility] [address] [place] [phone] [phone] Social History Tobacco Use Types Packs/Day Years [...] Encounters Date Type Specialty Care Team Description 04/09/2022 Appointment Laboratory Medicine Osman Wesley M.D. [address] [place] [phone] (Wallace forrester) 04/09/2022 Hospital Encounter Pulmonary Medicine Mario Pitt M.D. [address] [place] [address] [phone] (Wallace forrester) 04/09/2022 Appointment Cardiovascular Disease Yonas Wesley M.D. [address] [place] [address] [phone] (Wo rk) 04/16/2022 Office Visit Endocrinology Wesley Rankin APRN, C.N.P., D. N.P. [address] [place] [address] [phone] (Wo rk) 05/23/2022 Office Visit Cardiovascular Disease Yonas Wesley M.D. [address] [place] [address] [phone] (Wo rk) documented as of this encounter Visit Diagnoses Not on filedocumented in this encounter Care Teams Entry Level Relationship Specialty Start Date End Date Elsewhere, Pcp PCP - General 02/22/21 documented as of this encounter
--- OUTSIDE RECORDS SUMMARY | 2022-04-09 07:35 | XMS_ITS | Encounter Summary ---
:1965 Author Organization [facility] Address [address] [place] [address] Care Team Providers Name Role Phone Elsewhere, Pcp Primary Care Provider Unavailable Encounter Details Date Type Department Care Team Description 04/06/2022 Clinical Communication Visit Review in [place], [place] [address] [place] [address] Social History Tobacco Use Types Packs/Day Years [...] or relatives? How often do you attend restorationism or More than 4 times per year 02/09/2021 [employer] services? Do you belong to any clubs or Yes 02/09/2021 organizations such as restorationism groups, unions, fraternal or athletic groups, or [...] Appointment Laboratory Medicine Osman Wesley M.D. [address] [place] [phone] (Wallace forrester) 04/09/2022 Hospital Encounter Pulmonary Medicine Mario Pitt M.D. [address] [place] [phone] (Wallace forrester) 04/09/2022 Appointment Cardiovascular Disease Yonas Wesley M.D. [address] [place] [phone] (Wallace forrester) 04/16/2022 Office Visit Endocrinology Wesley Rankin APRN, C.N.PLisa, D. N.P. [address] [place] [phone] (Wo rk) 05/23/2022 Office Visit Cardiovascular Disease Yonas Wesley M.D. [address] [place] [phone] (Wo rk) documented as of this encounter Visit Diagnoses Not on filedocumented in this encounter Care Teams Body Joiner Relationship Specialty Start Date End Date Elsewhere, Pcp PCP - General 02/22/21 documented as of this encounter
--- OUTSIDE RECORDS SUMMARY | 2022-04-09 07:35 | XMS_ITS | Encounter Summary ---
:1965 Author Organization [facility] Address [address] [place] [address] Care Team Providers Name Role Phone Elsewhere, Pcp Primary Care Provider Unavailable Reason for Visit Reason Comments Follow-up Pre-visit Testing Orders Encounter Details Date Type Department Care Team Description 06/13/2021 Clinical Division of [place], Follow-up; Communication Endocrinology in Rahat Duran M.D. Pre-visit Testing [place], [place] [address] [facility] Orders [address] [place] [phone] Social History Tobacco Use Types Packs/Day Years [...] or relatives? How often do you attend muslim or More than 4 times per year 02/09/2021 [facility] services? Do you belong to any clubs or Yes 02/09/2021 organizations such as muslim groups, unions, fraternal or athletic groups, or [...] PASS schedule 7:30 labs and send [facility] documented in this encounter Plan of Treatment Upcoming Encounters Date Type Specialty Care Team Description 04/09/2022 Appointment Laboratory Medicine Osman Wesley M.D. [address] [place] [address] [phone] (Wo rk) 04/09/2022 Hospital Encounter Pulmonary Medicine Mario Pitt M.D. [address] [place] [address] [phone] (Wo rk) 04/09/2022 Appointment Cardiovascular Disease Yonas Wesley M.D. [address] [place] [address] [phone] (Wo rk) 04/16/2022 Office Visit Endocrinology Wesley Rankin APRN, C.N.P., D. N.P. [address] [place] [address] [phone] (Wo rk) 05/23/2022 Office Visit Cardiovascular Disease Yonas Wesley M.D. [address] [place] [address] [phone] (Wo rk) documented as of this encounter Visit Diagnoses Not on filedocumented in this encounter Care Teams Shell Plater Relationship Specialty Start Date End Date Elsewhere, Pcp PCP - General 02/22/21 documented as of this encounter
--- OUTSIDE RECORDS SUMMARY | 2022-04-09 07:35 | XMS_ITS | Encounter Summary ---
:1965 Author Organization [facility] Address [address] [place] [address] Care Team Providers Name Role Phone Elsewhere, Pcp Primary Care Provider Unavailable Reason for Visit Reason Comments Device Registration Communication Encounter Details Date Type Department Care Team Description 03/22/2021 [facility] Device Registr ation Communication Cardiovascular Ellis Roberson, (Communicati on) Medicine in [place], Anita, M.P .[place] [address] [facility] [address] [place] [phone] Social History Tobacco Use Types Packs/Day Years [...] from the original note were not included. ER MATCHER Telephone Encounter - Neli Sotelo - 03/22/2021 7:41 AM CST ICD Implant ER MATCHER documented in this encounter Plan of Treatment Upcoming Encounters Date Type Specialty Care Team Description 04/09/2022 Appointment Laboratory Medicine Osman Wesley M.D. [address] [place] [phone] (Wo rk) 04/09/2022 Hospital Encounter Pulmonary Medicine Mario Pitt M.D. [address] [place] [phone] (Wo rk) 04/09/2022 Appointment Cardiovascular Disease Yonas Wesley M.D. [address] [place] [phone] (Wo rk) 04/16/2022 Office Visit Endocrinology Wesley Rankin APRN, C.N.P., D. N.P. [address] [place] [phone] (Wo rk) 05/23/2022 Office Visit Cardiovascular Disease Yonas Wesley M.D. [address] [place] [phone] (Wo mitzy) documented as of this encounter Visit Diagnoses Not on filedocumented in this encounter Care Teams Certified Tower Climber Relationship Specialty Start Date End Date Elsewhere, Pcp PCP - General 02/22/21 documented as of this encounter
--- OUTSIDE RECORDS SUMMARY | 2022-04-09 07:35 | XMS_ITS | Encounter Summary ---
:1965 Author Organization [facility] Address [address] [place] [address] Care Team Providers Name Role Phone Elsewhere, Pcp Primary Care Provider Unavailable Reason for Referral Outpatient (Routine) - Authorized Specialty Diagnoses / Procedures Referred By Contact Refer red To Contact Diagnoses Hypertension Essential Primary Atherosclerotic Heart Disease [place] Coronary Artery With Other Forms Angina Pectoris (Stable Angina/Angina Of Exertion) (HCC) Cardiomyopathy Ischemic Osman Wesley M.D. [facility] Hypertension Heart Disease W ith Congestive Heart Failure (HCC) Failure Heart (HCC) [address] Procedures Echo Transthoracic (TTE) [place] [address] Referral ID Status Reason Start Date Expiration Date Visits V isits Requested Authorized [id number] Authorized 04/06/2022 04/06/2023 1 1 FICATION LEAD Encounter Details Date Type Department Care Team Description 04/06/2022 Orders Only Department of Osman Wesley, Hypertensio n Essential Primary (Primary Dx); Cardiovascular Medicine MKeven Atherosclerotic Heart Disease [place] Cor onary Artery With Other Forms Angina Pectoris (Stable Angina/Angina Of Exertion) (HCC); in [facility] rotary drier feeder [address] Cardiomyopathy Ischemic; [address] [place], [place] Hypertension Heart Disease W ith Congestive Heart Failure (HCC); [place] [address] Failure Heart (HCC) [address] [phone] Social History Tobacco Use Types Packs/Day Years [...] or relatives? How often do you attend episcopal or More than 4 times per year 02/09/2021 spiritism services? Do you belong to any clubs or Yes 02/09/2021 organizations such as episcopal groups, unions, fraternal or athletic groups, or [...] Appointment Laboratory Medicine Osman Wesley M.D. [address] [place] [address] [phone] (Wo rk) 04/09/2022 Hospital Encounter Pulmonary Medicine Mario Pitt M.D. [address] [place] [address] [phone] (Wo rk) 04/09/2022 Appointment Cardiovascular Disease Yonas Wesley M.D. [address] [place] [phone] (Wo rk) 04/16/2022 Office Visit Endocrinology Wesley Rankin APRN, C.N.P., D. N.P. [address] [place] [phone] (Wo rk) 05/23/2022 Office Visit Cardiovascular Disease Yonas Wesley M.D. [address] [place] [phone] (Wo rk) Scheduled Orders Name Type Priority Associated Diagnoses Order S chedule Troponin T, 5th Lab Routine Hypertension Expected: Generation Essential Primar y 05/23/2022 Atherosclerotic Heart (Appro ximate), Disease [place] Expires: Coronary Artery With 025 Other Forms Angina Pectoris (Stable Angina/Angina Of Exertion) (HCC) Cardiomyopathy Ischemic Hypertension Heart Disease With Congestive Heart Failure (HCC) Failure Heart (HCC) NT-Pro B-Type Lab Routine Hypertension Expected: Natriuretic Peptide Essential Pr imary 05/23/2022 (BNP) Atherosclerotic Heart (Appro ximate), Disease [place] Expires: Coronary Artery With 025 Other Forms Angina Pectoris (Stable Angina/Angina Of Exertion) (HCC) Cardiomyopathy Ischemic Hypertension Heart Disease With Congestive Heart Failure (HCC) Failure Heart (HCC) Basic Metabolic Panel Lab Routine Hypertension Expect ed: Essential Primar y 05/23/2022 Atherosclerotic Heart (Appro ximate), Disease [place] Expires: Coronary Artery With 025 Other Forms Angina Pectoris (Stable Angina/Angina Of Exertion) (HCC) Cardiomyopathy Ischemic Hypertension Heart Disease With Congestive Heart Failure (HCC) Failure Heart (HCC) Glucose, Fasting Lab Routine Hypertension Expected: Essential Primar y 05/23/2022 Atherosclerotic Heart (Appro ximate), Disease [place] Expires: Coronary Artery With 025 Other Forms Angina Pectoris (Stable Angina/Angina Of Exertion) (HCC) Cardiomyopathy Ischemic Hypertension Heart Disease With Congestive Heart Failure (HCC) Failure Heart (HCC) Echo Transthoracic Echocardiography Routine Hypertension Expec tia: (TTE) Essential Primar y 05/23/2022 Atherosclerotic Heart (Appro ximate), Disease [place] Expires: Coronary Artery With 025 Other Forms Angina Pectoris (Stable Angina/Angina Of Exertion) (HCC) Cardiomyopathy Ischemic Hypertension Heart Disease With Congestive Heart Failure (HCC) Failure Heart (HCC) documented as of this encounter Visit Diagnoses Diagnosis Hypertension Essential Primary - Primary Atherosclerotic Heart Disease [place] Cor onary Artery With Other Forms Angina Pectoris (Stable Angina/Angina Of Exertion) (HCC) Cardiomyopathy Ischemic Hypertension Heart Disease With Congesti ve Heart Failure (HCC) Failure Heart (HCC) documented in this encounter Care Teams Peoplesoft Hr Developer Relationship Specialty Start Date End Date Elsewhere, Pcp PCP - General 02/22/21 documented as of this encounter
--- OUTSIDE RECORDS SUMMARY | 2022-04-09 07:35 | XMS_ITS | Encounter Summary ---
:1965 Author Organization [facility] Address [address] [place] [address] Care Team Providers Name Role Phone Elsewhere, Pcp Primary Care Provider Unavailable Encounter Details Date Type Department Care Team Description 05/15/2021 Hospital Encounter Department of Osman Wesley [facility] Heart Laboratory Medicine Anita Ahmadi Disease [place] Coronary and Pathology, [address] [facility] Artery With Other Forms [facility] in [place], [place] Angina Pectoris (Stable [facility] [phone] Angina/Angina Of [place] [phone] Exertion) ([facility]LY [facility]) [address] [facility] (Work) [place], [place] [phone] (Fax) [phone] Social History Tobacco Use Types Packs/Day Years [...] More than 4 times per year 02/09/2021 confucianist services? Do you belong to any clubs [...] as directed for 1 each 0 2020 [facility] diabetes control. blood-glucose meter Test as directed [...] 0 03/13/2021 03/13/2022 reader (FreeStyle Jose 2 [place]) miscIndications: Diabetes Mellitus Type 2 Hyperglycemia (HCC) [...] Appointment Laboratory Medicine Osman Wesley M.D. [address] [place] [address] [phone] (Wo rk) 04/09/2022 Hospital Encounter Pulmonary Medicine Mario Pitt M.D. [address] [place] [address] [phone] (Wo rk) 04/09/2022 Appointment Cardiovascular Disease Yonas Wesley M.D. [address] [place] [address] [phone] (Wo rk) 04/16/2022 Office Visit Endocrinology Wesley Rankin APRN, C.N.P., D. N.P. [address] [place] [address] [phone] (Wo rk) 05/23/2022 Office Visit Cardiovascular Disease Yonas Wesley M.D. [address] [place] [address] [phone] (Wo rk) documented as of this encounter Procedures Procedure Name Priority Date/Time Associated Diagnosis Comme nts BASIC METABOLIC Routine 05/15/2021 1:43 PM Atherosclerotic Hea rt Results for this PANEL, S/P SENIOR RISK MANAGER Disease [place] Coronary proc edure are in Artery With Other Forms the results Angina Pectoris (Stable sect ion. Angina/Angina Of Exertion) ([facility]) documented in this encounter Results Basic Metabolic Panel (05/15/2021 1:43 PM SENIOR RISK MANAGER) athologist Signature Potassium, S 4.2 3.6 - 5.2 05/15/2021 DTL mmol/L 2:47 PM SENIOR RISK MANAGER Sodium, S 144 135 - 145 05/15/2021 DTL mmol/L 2:47 PM SENIOR RISK MANAGER Chloride, S 104 98 - 107 05/15/2021 DTL mmol/L 2:47 PM SENIOR RISK MANAGER Bicarbonate, S 27 22 - 29 05/15/2021 DTL mmol/L 2:47 PM SENIOR RISK MANAGER Anion Gap 13 7 - 15 05/15/2021 DTL 2:47 PM SENIOR RISK MANAGER BUN (Blood Urea 11 8 - 24 05/15/2021 DTL Nitrogen), S mg/dL 2:47 PM SENIOR RISK MANAGER Creatinine 1.10 0.74 - 05/15/2021 DTL 1.35 mg/dL 2:47 PM SENIOR RISK MANAGER eGFR-Non 75 >=60 05/15/2021 DTL Black/ mL/min/BSA 2:47 PM SENIOR RISK MANAGER Czech Comment: ----ADDITIONAL INFORMATION---- Estimated GFR calculated using the 2009 CKD_EPI creatinine equation. eGFR-Black/ 87 >=60 mL/min/BSA 2021 2:47 PM SENIOR RISK MANAGER DTL Comment: ----ADDITIONAL INFORMATION---- Estimated GFR calculated using the 2009 CKD_EPI creatinine equation. Calcium, Total, S 9.4 8.6 - 10.0 mg/dL 05/15/2021 2:47 PM SENIOR RISK MANAGER DTL Glucose, S 81 70 - 140 mg/dL 05/15/2021 2:47 PM SENIOR RISK MANAGER D TL Specimen Anatomical Collection Method Collection Time Receive d Time (Source) Location / / Volume Laterality Blood (Blood, 05/15/2021 1:43 PM 05/15/19 22 2:20 Venous) SENIOR RISK MANAGER PM SENIOR RISK MANAGER Osman Wesley M.D. LAB BLOOD ADD-ON Performing Organization Address City/State/ZIP Code Phon e Number [facility] - [address] [place], [place] [address] [facility] [place] [address] [facility] [address] documented in this encounter Visit Diagnoses Diagnosis Atherosclerotic Heart Disease [place] Cor onary Artery With Other Forms Angina Pectoris (Stable Angina/Angina Of Exertion) (HCC) documented in this encounter Care Teams Steam Generating Powerplant Mechanic Relationship Specialty Start Date End Date Elsewhere, Pcp PCP - General 02/22/21 documented as of this encounter
--- OUTSIDE RECORDS SUMMARY | 2022-04-09 07:35 | XMS_ITS | Encounter Summary ---
:1965 Author Organization [facility] Address [address] [place] [address] Care Team Providers Name Role Phone Elsewhere, Pcp Primary Care Provider Unavailable Reason for Visit Reason Comments Chest Pain CIED site post surgical pain Encounter Details Date Type Department Care Team Description 03/24/2021 Documentation Department of Triston Olivares Chest Pain (CIED Cardiovascular Medicine Anita Bright site post surgical in [facility] rotary cutter feeder [address] [facility] pain) [address] [place] [address] [phone] Social History Tobacco Use Types Packs/Day Years [...] More than 4 times per year 02/09/2021 worship services? Do you belong to any clubs [...] Hypertension Essential Primary ??? Atherosclerotic Heart Disease [place] Coronary Artery With Other Forms Angina Pectoris (Stable Angina/Angina Of Exertion) (HCC) ??? Pneumothorax Unspecified ??? Cardiomyopathy Ischemic ??? Congestive Heart Failure Ejection Fraction Less Than 40 Percent (HCC) ??? Failure Heart (HCC) ??? Hyperlipidemia On Treatment ??? Automatic Implantable Cardiac Defibrillator Status Post INTEGRATION DEVELOPER documented in this encounter Plan of Treatment Upcoming Encounters Date Type Specialty Care Team Description 04/09/2022 Appointment Laboratory Medicine Osman Wesley M.D. [address] [place] [address] [phone] (Wo mitzy) 04/09/2022 Hospital Encounter Pulmonary Medicine Mario Pitt M.D. [address] [place] [address] [phone] (Wallace forrester) 04/09/2022 Appointment Cardiovascular Disease Yonas Wesley M.D. [address] [place] [address] [phone] (Wo mitzy) 04/16/2022 Office Visit Endocrinology Wesley Rankin APRN, C.N.P., D. N.P. [address] [place] [phone] (Wo rk) 05/23/2022 Office Visit Cardiovascular Disease Yonas Wesley M.D. [address] [place] [address] [phone] (Wallace forrester) documented as of this encounter Visit Diagnoses Not on filedocumented in this encounter Care Teams Tosser Relationship Specialty Start Date End Date Elsewhere, Pcp PCP - General 02/22/21 documented as of this encounter
--- OUTSIDE RECORDS SUMMARY | 2022-04-09 07:35 | XMS_ITS | Encounter Summary ---
:1965 Author Organization [facility] Address [address] [place] [address] Care Team Providers Name Role Phone Elsewhere, Pcp Primary Care Provider Unavailable Reason for Visit Appointment Request (Routine) - Authorized Specialty Diagnoses / Procedures Referred By Contact Refer red To Contact Pulmonary Medicine Diagnoses Effusion Pleural Asthma Childhood Personal History Shortness Of Breath Trish Hinton M.D. [address] [place] [address] Referral ID Status Reason Start Date Expiration Date Visits V isits Requested Authorized [id number] Authorized 04/02/2022 04/02/2023 1 1 Encounter Details Date Type Department Care Team Description 04/09/2022 Hospital Encounter Division of Pulmonary Edgar Pitt, Medicine in [address] [place] [phone] Social History Tobacco Use Types Packs/Day Years [...] or relatives? How often do you attend rastafari or More than 4 times per year 02/09/2021 shinto services? Do you belong to any clubs or Yes 02/09/2021 organizations such as rastafari groups, unions, fraternal or athletic groups, or [...] Appointment Laboratory Medicine Osman Wesley M.D. [address] [place] [address] [phone] (Wo rk) 04/09/2022 Appointment Cardiovascular Disease Yonas Wesley M.D. [address] [place] [phone] (Wo rk) 04/16/2022 Office Visit Endocrinology Wesley Rankin APRN, C.N.P., D.N.P. [address] [place] [address] [phone] (Wo rk) 05/23/2022 Office Visit Cardiovascular Disease Yonas Wesley M.D. [address] [place] [phone] (Wo rk) documented as of this encounter Visit Diagnoses Not on filedocumented in this encounter Care Teams Manufacturing Assistant Relationship Specialty Start Date End Date Elsewhere, Pcp PCP - General 02/22/21 documented as of this encounter
--- OUTSIDE RECORDS SUMMARY | 2022-04-09 07:35 | XMS_ITS | Encounter Summary ---
:1965 Author Organization [facility] Address [address] [place] [address] Care Team Providers Name Role Phone Elsewhere, Pcp Primary Care Provider Unavailable Reason for Visit Reason Comments Appointment Encounter Details Date Type Department Care Team Description 04/02/2022 Clinical Communication Department of Osman Wesley A ppointment Cardiovascular Medicine Anita in [facility] [address] [facility] [address] [place] [phone] Social History Tobacco Use Types Packs/Day Years [...] this encounter Miscellaneous Notes Telephone Encounter - Jannette Trammell - 04/06/2022 12:44 PM CST Scheduled and spoke with Daughter DESIGNER Telephone Encounter - Juan Gibson - 04/06/2022 10:38 AM CST proxied DESIGNER Telephone Encounter - Amanda Ashton - 04/02/2022 1:41 PM CST EST pt Appointment/Visit Type/Schedule Procedure Goal or summary: follow up to May appt Dates interested in: 04/09 Additional comments: Pt was recently admitted to [facility] with water on the lungs, pt hasan appt 04/09 to see Pulm, would like to see you also if available Records being faxed Testing? Amanda DESIGNER documented in this encounter Plan of Treatment Upcoming Encounters Date Type Specialty Care Team Description 04/09/2022 Appointment Laboratory Medicine Osman Wesley M.D. [address] [place] [phone] (Wo rk) 04/09/2022 Hospital Encounter Pulmonary Medicine Mario Pitt M.D. [address] [place] [phone] (Wo rk) 04/09/2022 Appointment Cardiovascular Disease Yonas Wesley M.D. [address] [place] [phone] (Wo rk) 04/16/2022 Office Visit Endocrinology Wesley Rankin APRN, C.N.P., D. N.P. [address] [place] [phone] (Wo rk) 05/23/2022 Office Visit Cardiovascular Disease Yonas Wesley M.D. [address] [place] [phone] (Wallace forrester) documented as of this encounter Visit Diagnoses Not on filedocumented in this encounter Care Teams Digital Hardware Design Engineer Relationship Specialty Start Date End Date Elsewhere, Pcp PCP - General 02/22/21 documented as of this encounter
--- OUTSIDE RECORDS SUMMARY | 2022-04-09 07:35 | XMS_ITS | Clinical Summary ---
:1965 Author Organization [facility] Address [address] [place] [address] Care Team Providers Name Role Phone Elsewhere, Pcp Primary Care Provider Unavailable Source Comments Patient records contain information from all sites at [facility]. For routine questions regarding patient records, call [phone] during business hours, M-F 8:00 AM - 5:00 PM Central Time. Record requests for emergency care only can be directed to [phone] at any time.[facility] Allergies No known active allergies Medications [...] 500 mg MOUTH EVERY SIX tablet HOURS carvediloL (COREG) 0 02/15/2022 Active 12.5 mg tablet hydrOXYzine (ATARAX) 0 10/24/2021 Active 25 mg tablet hydrOXYzine (ATARAX) 0 03/27/2022 Active 50 mg tablet levoFLOXacin 0 04/02/2022 Active (LEVAQUIN) 500 mg tablet omeprazole Take 40 mg by 0 02/15/2022 Acti ve (PriLOSEC) [address] mouth[address] capsule potassium chloride TAKE 1 TABLET BY 0 04/02/2022 Active (K-TAB) 20 mEq CR MOUTH TWICE DAILY tablet FOR 6 DAYS. REPLACE POTASSIUM LOST FROM NEW WATER PILL Entresto 24-26 mg 0 03/30/2022 A ctive per tablet tiZANidine 0 03/27/2022 Active (ZANAFLEX) 4 mg tablet torsemide (DEMADEX) TAKE 3 TABLETS BY 0 04/02/2022 Active 20 mg tablet MOUTH DAILY. BEGIN MORNING OF 04/02/2022 1 TIME PICKED UP. DO NOT TAKE FUROSEMIDE FOR THE 5 DAYS YOU ARE ON THIS MEDICINE co-enzyme Q-10 30 mg Take by mouth. 0 Active capsule valsartan (DIOVAN) 0 01/23/2022 Active 40 mg tablet flash glucose 1 kit daily. 1 each 0 03/13/2021 Ex pired scanning reader 2 (FreeStyle Jose 2 [place]) miscIndications: Diabetes Mellitus Type 2 Hyperglycemia (HCC) [...] Added automatically from request for donato bola [id number] Hypertension Heart Disease With Congestive Heart Failu re 02/27/2021 Overview: Added automatically from request for donato bola [id number] Failure Heart 02/27/2021 Overview: Added automatically from request for donato bola [id number] Pneumothorax Unspecified 12/01/2020 Diabetes Mellitus Type 2 Hyperglycemia 11/28/2020 Atherosclerotic Heart Disease [place] Coronary Artery W ith Other Forms 11/28/2020 Angina Pectoris (Stable Angina/Angina Of Exertion) Overview: Added automatically from request for donato bola [id number] Hypertension Essential Primary 03/16/2008 Resolved Problems Problem Noted Date Resolved Date Edema Pulmonary 11/28/2020 12/05/2020 Coronary Stent Status Post 11/28/2020 12/05/2020 Acute Respiratory Failure With Hypercapnia 11/28/2020 12/05/2020 Acute Respiratory Failure With Hypoxia 11/28/2020 0 12/05/2020 Encounters Date Type Specialty Care Team Description 04/09/2022 Hospital Encounter Pulmonary Medicine Mario Pitt M.D. 04/06/2022 Clinical Admitting/Central Communication Scheduling 04/06/2022 Orders Only Cardiovascular Wesley, Osman L, Hypertensi on Essential Primary (Primary Dx); Disease M.D. Atherosclerotic Heart Disease [place] Coronary Artery With Other Forms Angina Pectoris (Stable Angina/Angina Of Exertion) (HCC); Cardiomyopathy Ischemic; Hypertension He art Disease With Congestive Heart Failure (HCC); Failure Heart ( HCC) 04/02/2022 Clinical Cardiovascular Osman Wesley, Appointmen t Communication Disease M.D. 03/14/2022 Hospital Encounter Laboratory Medicine Osman Shaffer Atherosclerotic Heart D.O. Disease Of [place] ve Coronary Artery Without Angina Pectoris 02/09/2022 Hospital Encounter Laboratory Medicine Sammy Bhagat rombocytosis Yuni Cespedes, Unspecified M.Riley from Last 3 Months Social History Tobacco [...] Comments Blood Pressure 143/82 03/21/2021 3:10 PM REFRACTORY MIXER Pulse 71 03/21/2021 3:10 PM REFRACTORY MIXER Temperature 36.7 ??C (98.1 ??F) 03/21/2021 9:22 AM REFRACTORY MIXER Respiratory Rate 21 02/24/2021 4:22 PM CDT Oxygen Saturation 98% 03/21/2021 3:10 PM REFRACTORY MIXER Inhaled Oxygen Concentration - - Weight 86.2 kg (190 lb 0.6 oz) 03/20/2021 4:07 PM REFRACTORY MIXER Height 178.1 cm (5' 10.12) 03/20/2021 4:07 PM REFRACTORY MIXER Body Mass Index 27.18 03/20/2021 4:07 PM REFRACTORY MIXER Plan of Treatment Upcoming Encounters Date Type Specialty Care Team Description 04/09/2022 Appointment Laboratory Medicine Osman Wesley M.D. [address] [place] [phone] (Wo rk) 04/09/2022 Hospital Encounter Pulmonary Medicine Mario Pitt M.D. [address] [place] [phone] (Wo rk) 04/09/2022 Appointment Cardiovascular Disease Yonas Wesley M.D. [address] [place] [address] [phone] (Wo rk) 04/16/2022 Office Visit Endocrinology Wesley Rankin APRN, C.N.P., D. N.P. [address] [place] [phone] (Wo rk) 05/23/2022 Office Visit Cardiovascular Disease Yonas Wesley M.D. [address] [place] [phone] (Wo rk) Health Maintenance Due Date Last Done Comments [...] history exists Medical Devices Implanted Type Area Advertising Sales Consultant Device Shelf Model / Identifier Expiration Serial / Date Lot Icd Acticor Vr Df 4 - [id number] - [id number] Implant Cardiac BIOTRONIK 11/26/2022 [id number] / Implanted: Qty: 1 on 03/21/2021 by Ellis Serrano M.D., M.P.H. at [facility] Defibrillator [id number] / Procedures Procedure Name Priority Date/Time Associated Diagnosis Comme nts BASIC METABOLIC STAT 03/14/2022 11:49 Atherosclerotic Heart Results for this PANEL, S/P AM REFRACTORY MIXER Disease Of [place] procedure are in Coronary Artery Without the [...] Results Basic Metabolic Panel (03/14/2022 11:49 AM REFRACTORY MIXER) athologist Signature Potassium, P 4.0 3.6 - 5.2 03/14/2022 NPRG mmol/L 6:20 PM REFRACTORY MIXER Sodium, P 141 135 - 145 03/14/2022 NPRG mmol/L 6:20 PM REFRACTORY MIXER Chloride, P 104 98 - 107 03/14/2022 NPRG mmol/L 6:20 PM REFRACTORY MIXER Bicarbonate, P 29 22 - 29 03/14/2022 NPRG mmol/L 6:20 PM REFRACTORY MIXER Anion Gap, P 8 7 - 15 03/14/2022 NPRG 6:20 PM REFRACTORY MIXER BUN (Blood Urea 9 8 - 24 03/14/2022 NPRG Nitrogen), P mg/dL 6:20 PM REFRACTORY MIXER Creatinine 0.94 0.74 - 03/14/2022 NPRG 1.35 mg/dL 6:20 PM REFRACTORY MIXER Estimated GFR >90 >=60 03/14/2022 NPRG (eGFR) mL/min/BSA 6:20 PM REFRACTORY MIXER Comment: Estimated GFR calculated using the 2020 CKD_EPI creatinine equation. Calcium, Total, P 9.2 8.6 - 10.0 mg/dL 03/14/2022 6:20 PM REFRACTORY MIXER NPRG Glucose, P 124 70 - 140 mg/dL 03/14/2022 6:20 PM REFRACTORY MIXER N PRG Specimen Anatomical Collection Method Collection Time Receive d Time (Source) Location / / Volume Laterality Blood (Blood, 03/14/2022 11:49 03/14/2022 Venous) AM REFRACTORY MIXER 11:58 AM REFRACTORY MIXER Humberto Jones MD LAB BLOOD ADD-ON Performing Organization Address City/State/ZIP Code Phon e Number [facility]- [address] [place] [address] [place] [address] LAB NPRG [facility] [place] [address] [place] [address] [place] BCR/ABL1 Qualitative Diagnostic Assay with Reflex to [...] nscripts was evaluated using a qualitative, reverse environmental lawyer PCR-bas ed assay. The assay detects nearly all published and theoretical BCR/ABL1 fusion forms including the common e13/e14-a2 (p210) and e1-a2 (p190 ) transcripts, as well as other rarer variants (e.g. e19-a2 (p230), e13/e14-a3, e1- a3, etc.). The limit of detection for this assay is 0.1%. Please contact [facility] at [phone] with questions or if additional testing is requ ired. See [facility] Laboratories Test Catalog for additional method jojo ocasio. Signing Pathologist: Guillermo Pagan M.D. (Jane), Ph.D. Comment: ----ADDITIONAL INFORMATION---- This test was developed and its performa nce characteristics determined by [facility] in a manner consistent with CLIA [...] Code Phon e Number [facility] - [address] [place], [place] [address] [facility] [place] [address] Laboratories-[facility] [address] JAK2 V617F Mutation Detection, [...] has been deter mined at 0.06% (see [facility] Interpretive Handbook for m ethod details). This test was developed and its performa nce characteristics determined by [facility] in a manner consistent with CLIA [...] Code Phon e Number [facility] - [address] [place], [place] [address] [place] [address] [facility] [address] BCR/ABL1, p210, mRNA Detection, Reverse Senior Software Analyst-PCR (RT-PCR), Quantitative, Monitoring ChronicMyeloid Leukemia (CML) (02/09/2022 [...] level was evaluated using a quantitative, reverse environmental lawyer PCR. The analytical sensitivity of this assay [...] all possible fusion forms. Please contact the [facility] at [phone] with questions or if additional testing is required. See the [facility] Interpretive Handbook for m ethod [...] and its performa nce characteristics determined by [facility] in a manner consistent with CLIA [...] LAB BLOOD NON ADD-ON Performing Organization Address City/[facility]/ZIP Code Phon e Number [facility] - [address] [place], [place] [address] [facility] [place] [address] [facility] [address] [facility] (ABNORMAL) Iron and Total Iron-Binding Capacity [...] LAB BLOOD ADD-ON Performing Organization Address City/State/ZIP [facility] Phon e Number [facility]- [facility] [place] [address] [place] [address] System in [place] [address] [place] [address] (ABNORMAL) CBC with Differential, Blood (02/09/2022 9:37 [...] Blood (Blood, 02/09/2022 9:37 AM 02/10/20 22 9:43 Venous) CDT AM CDT Yuni Bhagat M.D. LAB BLOOD ADD-ON Performing Organization Address City/State/ZIP Code Phon e Number [facility]- [address] [place] [address] [place] [address] [place] [address] Ferritin (02/09/2022 9:37 AM CDT) P athologist [...] Organization Address City/State/ZIP Code Phon e Number [facility]- [address] [place] [address] [place] [address] [address] from Last 3 Months Insurance Payer Benefit Plan / Subscriber ID Effective Phone Address T ype Group Dates MEDICARE MEDICARE A AND B [id number] 2008-Prese [address] [place] [address] GENERIC GENERIC MEDICAID Effective for Medicaid MEDICAID NON PARTICIPATING all dates QMB Advance Directives For more information, please contact: [phone] Latest Code Status on File Code Status Date Activated Date Inactivated Comments Full Code 11/28/2020 6:05 AM 12/05/2020 6:37 PM Question Answer Comments Full Code: Not Discussed Due to: Patient does not have the capacity Care Teams Mechanical Maintenance Supervisor Relationship Specialty Start Date End Date Elsewhere, Pcp PCP - General 02/22/21
--- OUTSIDE RECORDS SUMMARY | 2022-04-09 07:35 | XMS_ITS | Encounter Summary ---
:1965 Author Organization [facility] Address [address] [place] [address] Care Team Providers Name Role Phone Elsewhere, Pcp Primary Care Provider Unavailable Encounter Details Date Type Department Care Team Description 03/24/2021 Documentation Department of Jomar Warner, Cardiovascular Medicine in [place], [place]. [place], [place] [address] [facility] [address] [place] [phone] (Wo rk) Social History Tobacco Use Types [...] at the site. They are currently staying [facility] (2 hours away from [place]), with plans to drive back to [place] tomorrow. I shared this information with Dr. Olivares. We will have an additional prescription of ox[facility]codone [facility] [place] This should last him for several days before he reaches [place]. He will be able to see someone at [place] should he have ongoing symptoms next week. They were comfortable with this plan and had no further questions. TY ATTENDANT documented in this encounter Plan of Treatment Upcoming Encounters Date Type Specialty Care Team Description 04/09/2022 Appointment Laboratory Medicine Osman Wesley M.D. [address] [place] [address] [phone] (Wallace forrester) 04/09/2022 Hospital Encounter Pulmonary Medicine Mario Pitt M.D. [address] [place] [phone] (Wallace forrester) 04/09/2022 Appointment Cardiovascular Disease Yonas Wesley M.D. [address] [place] [phone] (Wallace forrester) 04/16/2022 Office Visit Endocrinology Wesley Rankin APRN, C.N.P., D. N.P. [address] [place] [phone] (Wallace forrester) 05/23/2022 Office Visit Cardiovascular Disease Yonas Wesley M.D. [address] [place] [address] [phone] (Wo rk) documented as of this encounter Visit Diagnoses Not on filedocumented in this encounter Care Teams Cooler Servicer Relationship Specialty Start Date End Date Elsewhere, Pcp PCP - General 02/22/21 documented as of this encounter
--- OUTSIDE RECORDS SUMMARY | 2022-04-09 07:35 | XMS_ITS | Encounter Summary ---
:1965 Author Organization [facility] Address [address] [place] [address] Care Team Providers Name Role Phone Elsewhere, Pcp Primary Care Provider Unavailable Encounter Details Date Type Department Care Team Description 02/09/2022 Hospital Department of Yuni Bhagat Encounter Saundra Cespedes M.D. Unspecified Medicine in [address], [address], [address] [place], [place] and [phone] [place], [place] [phone] [facility] Social History Tobacco Use Types Packs/Day Years [...] control. Diabetes Mellitus Type 2 Hyperglycemia (HCC) hydrOXYzine (ATARAX) 25 0 10/24/2021 mg tablet losartan (COZAAR) 100 Take 1 tablet (100 [...] 25 mg total) by mouth tablet daily. valsartan (DIOVAN) 40 0 01/23/2022 mg tablet Ventolin HFA 90 INHALE 2 PUFFS BY 18 g 4 02/23/2021 mcg/actuation inhaler MOUTH EVERY FOUR HOURS NEEDED FOR WHEEZING OR SHORTNESS OF BREATH flash glucose scanning 1 kit daily. 1 each 0 03/13/2021 03/13/2022 reader (FreeStyle Jose 2 [place]) miscIndications: Diabetes Mellitus Type 2 Hyperglycemia (HCC) flash glucose sensor 1 kit every 14 6 kit 3 03/13/2021 03/13/2022 (FreeStyle Jose 2 (fourteen) days. Sensor) kitIndications: Diabetes Mellitus Type 2 Hyperglycemia (HCC) documented as of this encounter Plan of Treatment Upcoming Encounters Date Type Specialty Care Team Description 04/09/2022 Appointment Laboratory Medicine Osman Wesley M.D. 200 [place] [phone] (Wallace forrester) 04/09/2022 Hospital Encounter Pulmonary Medicine Mario Pitt M.D. 200 [place] [phone] (Wallace forrester) 04/09/2022 Appointment Cardiovascular Disease Yonas Wesley M.D. 200 [place] [phone] (Wallace forrester) 04/16/2022 Office Visit Endocrinology Wesley Rankin APRN, C.N.P., D. N.P. [address] [place] [phone] (Wo rk) 05/23/2022 Office Visit Cardiovascular Disease Yonas Wesley M.D. [address] [place] [phone] (Wo rk) documented as of this encounter [...] Total Iron-Binding Capacity (02/09/2022 9:37 AM CDT) athologist Signature Iron 45 (L) 50 - [...] Organization Address City/State/ZIP Code Phon e Number [facility]- [facility] [place] [address] [place] [address] System in [place] [address] [facility] JAK2 V617F Mutation Detection, Blood [...] has been deter mined at 0.06% (see [facility] Laboratories Interpretive Handbook for m gloria details). This test was developed and its performa nce characteristics determined by [facility] in a manner consistent with CLIA requirements. [...] M.D. LAB GENETIC TESTING Performing Organization Address City/[facility]/ZIP Code Phon e Number [facility] - [address] [place], [place] [address] [facility] [place] [place] [address] Laboratories-[facility] [address] [facility] Ferritin (02/09/2022 9:37 AM CDT) P athologist [...] M.D. LAB BLOOD ADD-ON Performing Organization Address City/[facility]/ZIP Code Phon e Number [facility]- [address] [place] [address] [place] [address] System in [place] [address] [place] [address] (ABNORMAL) CBC with Differential, Blood (02/09/2022 9:37 [...] Organization Address City/State/ZIP Code Phon e Number [facility]- [facility] [address] [place] [id number] [place] [address] [place] [address] BCR/ABL1 Qualitative Diagnostic Assay with Reflex to [...] nscripts was evaluated using a qualitative, reverse student development advisor PCR-bas ed assay. The assay detects nearly all published and theoretical BCR/ABL1 fusion forms including the common e13/e14-a2 (p210) and e1-a2 (p190 ) transcripts, as well as other rarer variants (e.g. e19-a2 (p230), e13/e14-a3, e1- a3, etc.). The limit of detection for this assay is 0.1%. Please contact [facility] at [phone] with questions or if additional testing is requ ired. See [facility] Laboratories Test Catalog for additional method jojo barraza Signing Pathologist: Guillermo Pagan M.D. (Jane), Ph.D. Comment: ----ADDITIONAL INFORMATION---- This test was developed and its performa nce characteristics determined by [facility] in a manner consistent with CLIA requirements. [...] City/State/ZIP Code Phon e Number [facility] - [address] [place], [place] [address] [place] [address] Laboratories-[place] [address] [address] [facility] BCR/ABL1, p210, mRNA Detection, Reverse Shredding Floor Equipment Operator-PCR (RT-PCR), Quantitative, Monitoring ChronicMyeloid Leukemia (CML) (02/09/2022 [...] level was evaluated using a quantitative, reverse student development advisor PCR. The analytical sensitivity of this assay [...] all possible fusion forms. Please contact the [place] [facility] at [phone] with questions or if additional testing is required. See the [facility] Laboratories Interpretive Handbook for m ethod details. [...] and its performa nce characteristics determined by [facility] in a manner consistent with CLIA requirements. [...] City/State/ZIP Code Phon e Number [facility] - [address] [place], [place] [address] [facility] [place] [place] [address] Laboratories-[facility] [address] documented in this encounter Visit Diagnoses Diagnosis Thrombocytosis Unspecified documented in this encounter Care Teams Instructor Modeling Relationship Specialty Start Date End Date Elsewhere, Pcp PCP - General 02/22/21 documented as of this encounter
--- OUTSIDE RECORDS SUMMARY | 2022-04-09 07:35 | XMS_ITS | Encounter Summary ---
:1965 Author Organization [facility] Address [address] [place] [address] Care Team Providers Name Role Phone Elsewhere, Pcp Primary Care Provider Unavailable Reason for Referral Outpatient (Routine) - Closed Specialty Diagnoses / Procedures Referred By Contact Refer red To Contact Diagnoses Failure Heart (HCC) Osman Wesley M.D. [facility] Procedures Echo Transthoracic (TTE) [address] [place], [place] [address] Referral ID Status Reason Start Date Expiration Date Visits Requ ested Visits Authorized [id number] Closed 02/09/2021 02/09/2022 1 1 Reason for Visit Outpatient (Routine) - Closed Specialty Diagnoses / Procedures Referred By Contact Refer red To Contact Diagnoses Failure Heart (HCC) Osman Wesley M.D. [facility] Procedures Echo Transthoracic (TTE) [address] [place] [address] Referral ID Status Reason Start Date Expiration Date Visits Requ ested Visits Authorized [id number] Closed 02/09/2021 02/09/2022 1 1 Encounter Details Date Type Department Care Team Description 05/15/2021 Hospital Encounter Department of Osman Wesley Heart (HCC) Cardiovascular Diseases Anita Ahmadi in [facility] [address] [facility] [address] [place] [phone] Social History Tobacco Use Types Packs/Day Years [...] More than 4 times per year 02/09/2021 holiness services? Do you belong to any clubs [...] as directed for 1 each 0 2020 [facility] diabetes control. blood-glucose meter Test as directed [...] 0 03/13/2021 03/13/2022 reader (FreeStyle Jose 2 [place]) miscIndications: Diabetes Mellitus Type 2 Hyperglycemia (HCC) [...] Appointment Laboratory Medicine Osman Wesley M.D. 200 [place] [address] (Wallace forrester) 04/09/2022 Hospital Encounter Pulmonary Medicine Mario Pitt M.D. 200 [place] [address] (Wallace forrester) 04/09/2022 Appointment Cardiovascular Disease Yonas Wesley M.D. [address] [place] [phone] (Wallace forrester) 04/16/2022 Office Visit Endocrinology Wesley Rankin APRN, C.N.P., D. N.P. [address] [place] [phone] (Wo rk) 05/23/2022 Office Visit Cardiovascular Disease Yonas Wesley M.D. [address] [place] [phone] (Wallace rk) documented as of this encounter Procedures Procedure Name Priority Date/Time Associated Diagnosis Comme nts (TTE) 2D LIMITED Routine 05/15/2021 1:20 PM Failure Heart (HCC ) Results for this WITH COLOR , CPC procedure are i n DOPPLER AND the results CONTRAST section. documented in this encounter Results (TTE) 2D LIMITED WITH COLOR , DOPPLER AND CONTRAST (05/15/2021 1:20 PM CPC) P athologist Signature Ejection 42 MC CV [...] / / Volume Laterality 05/15/2021 12:18 PM CPC Impressions 05/15/2021 8:25 PM CPC Echocardiogram performed per left ventricular function protocol. [...] Echocardiography Contrast Administration Protocol Referen ce Document [id number]. Patient met an inclusion criterion and did not have contraindicat ions in screening sections. For the complete report, see the [employer] Documents. Narrative 05/15/2021 8:25 PM CPC For the complete report, see the [employer] Documents. Final Impressions 1. Moderately enlarged left [...] Echocardiography Contrast Administration Protocol Referen ce Document [id number]. Patient met an inclusion criterion and did [...] % injection 10 Given 05/15/2021 1:17 PM CPC 6 mL mL 10 mL, intravenous, As needed, line care, Starting on Sat05/15/21 at 1312, Prior to and following infusion and between multiple consecutive infusions: sodium chloride 0.9 % injection sulfur hexafluoride microspheres injection Given 05/15/2021 1:16 PM CPC 4 mL (LUMASON) intravenous, As needed, contrast, Starting on Sat05/15/21 at 1312, See protocol. Reconstitute each 25 mg vial with 5 mL NS. documented in this encounter Care Teams Plan Nurse Relationship Specialty Start Date End Date Elsewhere, Pcp PCP - General 02/22/21 documented as of this encounter
--- OUTSIDE RECORDS SUMMARY | 2022-04-09 07:35 | XMS_ITS | Encounter Summary ---
:1965 Author Organization [facility] Address [address] [place] [address] Care Team Providers Name Role Phone Elsewhere, Pcp Primary Care Provider Unavailable Reason for Visit Outpatient (Routine) - Closed Specialty Diagnoses / Procedures Referred By Contact Refer red To Contact Cardiovascular Disease Osman Wesley M .D. [facility] [address] [place] [phone] Referral ID Status Reason Start Date Expiration Date Visits Requ ested Visits Authorized [id number] Closed 02/09/2021 02/09/2022 1 1 Encounter Details Date Type Department Care Team Description 05/15/2021 Office Visit Department of Osman Wesley, Cardiomyopa thy Ischemic (Primary Dx); Cardiovascular Medicine M.DLisa Pain Chest Atypical in [facility] rotary cutter feeder [address] [place] [address] [place] [phone] Social History Tobacco Use Types Packs/Day Years [...] He walked from the parking ramp today [facility] floor without having to stop because of [...] flash glucose scanning reader (FreeStyle Jose 2 Pillow) misc, 1 kit daily. ??? flash glucose [...] in systolic function of the left ventricle MOTIVE UPHOLSTERER documented in this encounter Plan of Treatment Upcoming Encounters Date Type Specialty Care Team Description 04/09/2022 Appointment Laboratory Medicine Osman Wesley M.D. [address] [place] [address] (Wo rk) 04/09/2022 Hospital Encounter Pulmonary Medicine Mario Pitt M.D. [address] [place] [phone] (Wo rk) 04/09/2022 Appointment Cardiovascular Disease Yonas Wesley M.D. [address] [place] [address] [phone] (Wo rk) 04/16/2022 Office Visit Endocrinology Wesley Rankin APRN C.N.PLisa, D. N.P. [address] [place] [address] [phone] (Wo rk) 05/23/2022 Office Visit Cardiovascular Disease Yonas Wesley M.D. [address] [place] [address] [phone] (Wo rk) documented as of this encounter Results (ABNORMAL) NT-Pro B-Type Natriuretic Peptide (BNP) (05/15/2021 5:47 PM AUTOMOTIVE UPHOLSTERER) athologist Signature NT-Pro BNP 835 (H) <=68 pg/mL 05/15/2021 DTL 6:48 PM AUTOMOTIVE UPHOLSTERER Comment: NT-proBNP values less than 300 pg/mL [...] Laterality Blood (Blood, 05/15/2021 5:47 PM 05/15/19 6:24 Venous) AUTOMOTIVE UPHOLSTERER PM AUTOMOTIVE UPHOLSTERER Osman Wesley M.D. LAB BLOOD ADD-ON Performing Organization Address City/State/ZIP Code Phon e Number [facility] - [address] [place] [phone] [facility] [place] [address] [facility] [place] [address] Troponin T, 5th Generation (05/15/2021 5:47 PM AUTOMOTIVE UPHOLSTERER) P athologist Signature Troponin T, 5th 14 <=15 ng/L 05/15/2021 DTL gen 7:54 PM AUTOMOTIVE UPHOLSTERER Specimen Anatomical Collection Method Collection Time Receive d Time (Source) Location / / Volume Laterality Blood (Blood, 05/15/2021 5:47 PM 05/15/19 6:25 Venous) AUTOMOTIVE UPHOLSTERER PM AUTOMOTIVE UPHOLSTERER Osman Wesley M.D. LAB BLOOD ADD-ON Performing Organization Address City/State/ZIP Code Phon e Number [facility] - [address] [place], [place] [address] [facility] [place] [address] [facility] [place] [address] documented in this encounter Visit Diagnoses Diagnosis Cardiomyopathy Ischemic - Primary Pain Chest Atypical documented in this encounter Care Teams Pump Service Supervisor Relationship Specialty Start Date End Date Elsewhere, Pcp PCP - General 02/22/21 documented as of this encounter
--- OUTSIDE RECORDS SUMMARY | 2022-04-09 07:35 | XMS_ITS | Encounter Summary ---
:1965 Author Organization [facility] Address [address] [place] [address] Care Team Providers Name Role Phone Elsewhere, Pcp Primary Care Provider Unavailable Encounter Details Date Type Department Care Team Description 06/13/2021 Orders Only Division of Rahat Denton Diabetes Janel itus Type 2 Hyperglycemia (HCC) (Primary Dx); Endocrinology in P, M.D. Hyperlipidemia On Treatment [place], [place] [address] [facility] [address] [place] [phone] Social History Tobacco Use Types Packs/Day Years [...] Appointment Laboratory Medicine Osman Wesley M.D. 200 [place] [phone] (Wallace forrester) 04/09/2022 Hospital Encounter Pulmonary Medicine Mario Pitt M.D. 200 [place] [phone] (Wallace forrester) 04/09/2022 Appointment Cardiovascular Disease Yonas Wesley M.D. [address] [place] [phone] (Wallace forrester) 04/16/2022 Office Visit Endocrinology eWsley Rankin APRN, C.N.P., D. N.P. [address] [place] [phone] (Wallace forrester) 05/23/2022 Office Visit Cardiovascular Disease Yonas Wesley M.D. 200 [place] [phone] (Wallace forrester) Scheduled Orders Name Type Priority Associated Diagnoses [...] Treatment documented in this encounter Care Teams Gas Attendant Relationship Specialty Start Date End Date Elsewhere, Pcp PCP - General 02/22/21 documented as of this encounter
--- OUTSIDE RECORDS SUMMARY | 2022-04-09 07:35 | XMS_ITS | Encounter Summary ---
:1965 Author Organization [facility] Address [address] [place] [address] Care Team Providers Name Role Phone Elsewhere, Pcp Primary Care Provider Unavailable Encounter Details Date Type Department Care Team Description 03/14/2022 Hospital Encounter Department of Deena, Atherosc lerotic Heart Laboratory Medicine Daniel Brewer Disease Of [place] in [place], [facility] [address] Coronary Sis ry Without [place] Angina Pectoris [address] [facility] [phone] Social History Tobacco Use Types Packs/Day Years [...] More than 4 times per year 02/09/2021 judaism services? Do you belong to any clubs [...] control. Diabetes Mellitus Type 2 Hyperglycemia (HCC) carvediloL (COREG) 12.5 0 02/15/2022 mg tablet hydrOXYzine (ATARAX) 25 0 10/24/2021 mg tablet metFORMIN XR Take 4 tablets (2,000 360 tablet 3 03/21/2021 (GLUCOPHAGE-XR) 500 mg mg total) by mouth 24 hr tabletIndications: daily with breakfast. Diabetes Mellitus Type 2 Hold metformin for 2 Hyperglycemia (HCC) days. Resume taking on 03/23/21. multivitamin tablet Take 1 tablet by mouth 0 daily. Diabetic Complete Multivitamin omeprazole (PriLOSEC) 20 Take 40 mg by mouth. [address] capsule spironolactone Take 1 tablet (25 mg 30 tablet 11 02/23/2021 (ALDACTONE) 25 mg tablet total) by mouth daily. valsartan (DIOVAN) 40 mg 0 01/23/2022 tablet documented as of this encounter Plan of Treatment Upcoming Encounters Date Type Specialty Care Team Description 04/09/2022 Appointment Laboratory Medicine Osman Wesley M.D. [address] [place] [phone] (Wallace forrester) 04/09/2022 Hospital Encounter Pulmonary Medicine Mario Pitt M.D. [address] [place] [phone] (Wallace forrester) 04/09/2022 Appointment Cardiovascular Disease Yonas Wesley M.D. [address] [place] [phone] (Wallace forrester) 04/16/2022 Office Visit Endocrinology Wesley Rankin APRN, C.N.P., D. N.P. [address] [place] [phone] (Wallace forrester) 05/23/2022 Office Visit Cardiovascular Disease Yonas Wesley M.D. [address] [place] [phone] (Wallace forrester) documented as of this encounter Procedures Procedure Name Priority Date/Time Associated Diagnosis Comme nts BASIC METABOLIC STAT 03/14/2022 11:49 Atherosclerotic Heart Results for this PANEL, S/P AM METHODS AND PROCEDURES ANALYST Disease Of [place] procedure are in Coronary Artery Without the results Angina Pectoris section. documented in this encounter Results Basic Metabolic Panel (03/14/2022 11:49 AM METHODS AND PROCEDURES ANALYST) P athologist Signature Potassium, P 4.0 3.6 - 5.2 03/14/2022 NPRG mmol/L 6:20 PM METHODS AND PROCEDURES ANALYST Sodium, P 141 135 - 145 03/14/2022 NPRG mmol/L 6:20 PM METHODS AND PROCEDURES ANALYST Chloride, P 104 98 - 107 03/14/2022 NPRG mmol/L 6:20 PM METHODS AND PROCEDURES ANALYST Bicarbonate, P 29 22 - 29 03/14/2022 NPRG mmol/L 6:20 PM METHODS AND PROCEDURES ANALYST Anion Gap, P 8 7 - 15 03/14/2022 NPRG 6:20 PM METHODS AND PROCEDURES ANALYST BUN (Blood Urea 9 8 - 24 03/14/2022 NPRG Nitrogen), P mg/dL 6:20 PM METHODS AND PROCEDURES ANALYST Creatinine 0.94 0.74 - 03/14/2022 NPRG 1.35 mg/dL 6:20 PM METHODS AND PROCEDURES ANALYST Estimated GFR >90 >=60 03/14/2022 NPRG (eGFR) mL/min/BSA 6:20 PM METHODS AND PROCEDURES ANALYST Comment: Estimated GFR calculated using the 2020 CKD_EPI creatinine equation. Calcium, Total, P 9.2 8.6 - 10.0 mg/dL 03/14/2022 6:20 PM METHODS AND PROCEDURES ANALYST NPRG Glucose, P 124 70 - 140 mg/dL 03/14/2022 6:20 PM METHODS AND PROCEDURES ANALYST N PRG Specimen Anatomical Collection Method Collection Time Receive d Time (Source) Location / / Volume Laterality Blood (Blood, 03/14/2022 11:49 03/14/2022 Venous) AM METHODS AND PROCEDURES ANALYST 11:58 AM METHODS AND PROCEDURES ANALYST Humberto Jones MD LAB BLOOD ADD-ON Performing Organization Address City/State/ZIP Code Phon e Number [facility]- [address] [place], [place] [address] [place] [address] [place] [address] [facility] [address] documented in this encounter Visit Diagnoses Diagnosis Atherosclerotic Heart Disease Of [place] Coronary Artery Without Angina Pectoris documented in this encounter Care Teams Reed Polisher Relationship Specialty Start Date End Date Elsewhere, Pcp PCP - General 02/22/21 documented as of this encounter
--- OUTSIDE RECORDS SUMMARY | 2022-04-09 07:36 | XMS_ITS | Encounter Summary ---
:1965 Author Organization [facility] Address [address] [place] [address] Care Team Providers Name Role Phone Elsewhere, Pcp Primary Care Provider Unavailable Reason for Visit Appointment Request (Routine) - Closed Specialty Diagnoses / Procedures Referred By Contact Refer red To Contact Cardiovascular Disease Referral ID Status Reason Start Date Expiration Date Visits Requ ested Visits Authorized [id number] Closed 03/06/2021 03/06/2022 1 1 Encounter Details Date Type Department Care Team Description 03/20/2021 Comprehensive Visit Department of Monique Olivares Heart Disease [place] Coronary Artery With Other Forms Angina Pectoris (Stable Angina/Angina Of Exertion) (HCC) (Primary Dx); Cardiovascular Triston Bright, Cardiomyopath y Ischemic; Medicine in M.D. Congestive Heart Failure Ejection Fracti on Less Than 40 Percent (HCC); [place], [place] [address] Diabetes Mellitus Type 2 Hyp erglycemia (HCC); [address] [facility] Hypertension Essential Primary; [place], [place], Hyperlipidemia [place] Treatment [phone] [place] [phone] Social History Tobacco Use Types Packs/Day Years [...] or relatives? How often do you attend yazidism or More than 4 times per year 02/09/2021 sikh services? Do you belong to any clubs or Yes 02/09/2021 organizations such as yazidism groups, unions, fraternal or athletic groups, or [...] Comments Blood Pressure 143/86 03/20/2021 4:07 PM TANK WASHER Pulse 83 03/20/2021 4:07 PM TANK WASHER Temperature - - Respiratory Rate - - Oxygen Saturation - - Inhaled Oxygen Concentration - - Weight 86.2 kg (190 lb 0.6 oz) 03/20/2021 4:07 PM TANK WASHER Height 178.1 cm (5' 10.12) 03/20/2021 4:07 PM TANK WASHER Body Mass Index 27.18 03/20/2021 4:07 PM TANK WASHER documented in this encounter Consult Notes Triston [...] here in November of 2020 in the [facility] [place] by Dr. Rudd for pulmonary edema. He [...] right handed. He had worked for the [employer] locally. Patient Active Problem List Diagnosis ??? Diabetes Mellitus Type 2 Hyperglycemia (HCC) ??? Hypertension Essential Primary ??? 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 ??? 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 He does not require STATISTICAL MODELER (QRSD = 90 with normal ME) nor an atrial lead (no AF). Thus a single lead left sided ICD is indicated. I described the risk and goals of the procedure including , stroke, and NC at 04/999. I also described the following [...] per year. Written informed consent was obtained. Lucidity ([employer])[facility] scrubs were given and he will call [facility] for a report time. NPO after KIRILL was instructed. His is here so SDD is a possibility and this was discussed. Questions answered. Triston Olivares M.D. ?? WASHER documented in this encounter Plan of Treatment Upcoming Encounters Date Type Specialty Care Team Description 04/09/2022 Appointment Laboratory Medicine Osman Wesley M.D. [address] [place] [address] [phone] (Wallace forrester) 04/09/2022 Hospital Encounter Pulmonary Medicine Mario Pitt M.D. [address] [place] [address] [phone] (Wallace forrester) 04/09/2022 Appointment Cardiovascular Disease Yonas Wesley M.D. [address] [place] [address] [phone] (Wallace forrester) 04/16/2022 Office Visit Endocrinology Wesley Rankin APRN, C.N.P., D. N.P. [address] [place] [address] [phone] (Wallace forrester) 05/23/2022 Office Visit Cardiovascular Disease Yonas Wesley M.D. [address] [place] [phone] (Wo rk) documented as of this encounter Visit Diagnoses Diagnosis Atherosclerotic Heart Disease [place] Cor onary Artery With Other Forms Angina Pectoris (Stable Angina/Angina Of Exertion) (HCC) - Primary Cardiomyopathy Ischemic Congestive Heart Failure Ejection Fracti on Less Than 40 Percent (HCC) Diabetes Mellitus Type 2 Hyperglycemia ( HCC) Hypertension Essential Primary Hyperlipidemia On Treatment documented in this encounter Care Teams Die Tester Relationship Specialty Start Date End Date Elsewhere, Pcp PCP - General 02/22/21 documented as of this encounter
--- OUTSIDE RECORDS SUMMARY | 2022-04-09 07:36 | XMS_ITS | Encounter Summary ---
:1965 Author Organization [facility] Address [address] [place] [address] Care Team Providers Name Role Phone Elsewhere, Pcp Primary Care Provider Unavailable Encounter Details Date Type Department Care Team Description 03/06/2021 Clinical Communication Department of Trista Godfrey, Cardiovascular Medicine [place] in [facility] [address] [facility] [address] [place] [phone] Social History Tobacco Use Types Packs/Day Years [...] or relatives? How often do you attend jainism or More than 4 times per year 02/09/2021 moravian services? Do you belong to any clubs or Yes 02/09/2021 organizations such as jainism groups, unions, fraternal or athletic groups, or [...] Appointment Laboratory Medicine Osman Wesley M.D. 200 [place] [phone] (Wallace forrester) 04/09/2022 Hospital Encounter Pulmonary Medicine Mario Pitt M.D. [address] [place] [phone] (Wallace forrester) 04/09/2022 Appointment Cardiovascular Disease Yonas Wesley M.D. [address] [place] [phone] (Wo rk) 04/16/2022 Office Visit Endocrinology Wesley Rankin APRN, C.N.P., D. N.P. [address] [place] [address] [phone] (Wo rk) 05/23/2022 Office Visit Cardiovascular Disease Yonas Wesley M.D. [address] [place] [address] [phone] (Wo rk) documented as of this encounter Visit Diagnoses Not on filedocumented in this encounter Care Teams Restaurant Busser Relationship Specialty Start Date End Date Elsewhere, Pcp PCP - General 02/22/21 documented as of this encounter
--- OUTSIDE RECORDS SUMMARY | 2022-04-09 07:36 | XMS_ITS | Encounter Summary ---
:1965 Author Organization [facility] Address [address] [place] [address] Care Team Providers Name Role Phone Elsewhere, Pcp Primary Care Provider Unavailable Encounter Details Date Type Department Care Team Description 03/21/2021 Orders Only Division of [place] Aftercare Cardi ac Cardiovascular Diseases Wally Saleh (Primary in [facility] M.S.N., R.N. Dx) [address] [place] [phone] Social History Tobacco Use [...] Laboratory Medicine Osman Wesley M.D. [address] [place] [address] [phone] (Wo mitzy) 04/09/2022 Hospital Encounter Pulmonary Medicine Mario Pitt M.D. [address] [place] [phone] (Wallace forrester) 04/09/2022 Appointment Cardiovascular Disease Yonas Wesley M.D. [address] [place] [address] [phone] (Wo rk) 04/16/2022 Office Visit Endocrinology Wesley Rankin APRN, C.N.P., D. N.P. [address] [place] [address] [phone] (Wo rk) 05/23/2022 Office Visit Cardiovascular Disease Yonas Wesley M.D. [address] [place] [phone] (Wo rk) documented as of this encounter Visit Diagnoses Diagnosis Aftercare Cardiac Defibrillator - Primar y documented in this encounter Care Teams Recruitment Assistant Relationship Specialty Start Date End Date Elsewhere, Pcp PCP - General 02/22/21 documented as of this encounter
--- OUTSIDE RECORDS SUMMARY | 2022-04-09 07:36 | XMS_ITS | Encounter Summary ---
:1965 Author Organization [facility] Address [address] [place] [address] Care Team Providers Name Role Phone Elsewhere, Pcp Primary Care Provider Unavailable Encounter Details Date Type Department Care Team Description 03/08/2021 Education Department of Osman Wesley M.D. [address] [place] [address] Failure Heart ([facility]) Cardiovascular Medicine in Phuong Nichols RKristin [place], [place] [address] [place] [phone] Social History Tobacco Use Types Packs/Day [...] or relatives? How often do you attend cheondoism or More than 4 times per year 02/09/2021 shinto services? Do you belong to any clubs or Yes 02/09/2021 organizations such as cheondoism groups, unions, fraternal or athletic groups, or [...] Evaluation of learning: able to demonstrate teach-back VE SETTER SAFETY STITCH documented in this encounter Plan of Treatment Upcoming Encounters Date Type Specialty Care Team Description 04/09/2022 Appointment Laboratory Medicine Osman Wesley M.D. [address] [place] [address] [phone] (Wo rk) 04/09/2022 Hospital Encounter Pulmonary Medicine Mario Pitt M.D. [address] [place] [address] [phone] (Wo rk) 04/09/2022 Appointment Cardiovascular Disease Yonas Wesley M.D. [address] [place] [address] [phone] (Wo rk) 04/16/2022 Office Visit Endocrinology Wesley Rankin APRN, C.N.P., D. N.P. [address] [place] [address] [phone] (Wo rk) 05/23/2022 Office Visit Cardiovascular Disease Yonas Wesley M.D. [address] [place] [address] [phone] (Wo rk) documented as of this encounter Visit Diagnoses Diagnosis Failure Heart (HCC) documented in this encounter Care Teams Makeup Sales Consultant Relationship Specialty Start Date End Date Elsewhere, Pcp PCP - General 02/22/21 documented as of this encounter
--- OUTSIDE RECORDS SUMMARY | 2022-04-09 07:36 | XMS_ITS | Encounter Summary ---
:1965 Author Organization [facility] Address [address] [place] [address] Care Team Providers Name Role Phone Elsewhere, Pcp Primary Care Provider Unavailable Reason for Referral Outpatient (Routine) - Closed Specialty Diagnoses / Procedures Referred By Contact Refer red To Contact Endocrinology Diagnoses Diabetes Mellitus Type 2 Hyperglycemia (HCC) Ervin Jaffe M.D. [facility] [address] [place] [phone] Referral ID Status Reason Start Date Expiration Date Visits Requ ested Visits Authorized [id number] Closed 03/08/2021 03/08/2022 1 1 MANAGEMENT SPECIALIST Reason for Visit Outpatient (Routine) - Closed Specialty Diagnoses / Referred By Contact Referred To Contact Procedures Cardiovascular Diseases / Diagnoses Failure Heart ([facility]) [facility] M.DLisa [address] [place] [phone] Referral ID Status Reason Start Date Expiration Date Visits Requ ested Visits Authorized [id number] Closed 02/27/2021 02/27/2022 1 1 Encounter Details Date Type Department Care Team Description 03/08/2021 Comprehensive Visit Department of Trista Godfrey Ischemic (Primary Dx); Cardiovascular Anita Cason Failure Heart ([facility]); Medicine in [address] [place] [address] Atherosclerotic Heart Disease Of [place] Coronary Artery Without Angina Pectoris; [facility] Diabetes Mellitus Type 2 Hyperglycemia ( HCC); [address] [place] [address], Congestive Heart Failure Eje ction Fraction Less Than 40 Percent ([facility]); [facility] [place] [phone] Social History Tobacco Use Types Packs/Day Years [...] Comments Blood Pressure 119/78 03/08/2021 8:05 AM RISK MANAGEMENT SPECIALIST Pulse 73 03/08/2021 8:05 AM RISK MANAGEMENT SPECIALIST Temperature - - Respiratory Rate - - Oxygen Saturation - - Inhaled Oxygen Concentration - - Weight 84.8 kg (186 lb 15.2 oz) 03/08/2021 8:05 AM RISK MANAGEMENT SPECIALIST Height 179.6 cm (5' 10.71) 03/08/2021 8:05 AM RISK MANAGEMENT SPECIALIST Body Mass Index 26.29 03/08/2021 8:05 AM RISK MANAGEMENT SPECIALIST documented in this encounter Consult Notes Ervin Jaffe M.D. - 03/08/2021 8:15 AM CST HEART FAILURE CLINIC NOTE REFERRAL Osman Wesley M.D. [address] [place] [phone] REASON FOR VISIT/REFERRAL Ischemic cardiomyopathy HISTORY OF [...] of ischemic cardiomyopathy. He was admitted to [facility] in early November for acute onset pulmonary [...] MRI. 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 Coronary angiogram was notable for shek-cj-[id number] coronary artery disease. IFR of various coronary [...] setting of STEMI and residual diffuse is jkul-pz-epfirdkk disease on coronary angiogram on 02/24/2021, ischemic [...] M.D. Cardiovascular Diseases Fellow, PGY 5 Pager: [phone] MANAGEMENT SPECIALIST Trista Godfrey M.D. - 03/08/2021 8:15 AM [...] breath with moderate exertion. Hence patient is [place] Heart Association class 2 The following portions [...] than three times a week ??? Attends [employer] Services: More than 4 times per year [...] ?? ASSESSMENT / PLAN #1 Failure Heart ([facility]) #2 Cardiomyopathy Ischemic #3 Atherosclerotic Heart Disease [place] Coronary Artery Without Angina Pectoris #4 Diabetes Mellitus Type 2 Hyperglycemia ([facility]) #5 Congestive Heart Failure Ejection Fraction Less Than 40 Percent ([facility]) #6 Coronary Stent Status Post Patient has has ischemic cardiomyopathy however by exam he is clinically euvolemic. Patient develop symptomatic hypotension with Entresto for systolic blood pressures in the 50s. Hence will stop his Entresto for now and restart him on losartan 100 mg a day. I told patient to monitor his blood pressuredaily and when he sees his local emergency telecommunications dispatcher or primary physician he should short and [...] time spent reviewing patient's medical records and qcbm-tc-vinj consultation is 40 minutes. Trista Godfrey M.D. 03/08/2021 MANAGEMENT SPECIALIST documented in this encounter Plan of Treatment Upcoming Encounters Date Type Specialty Care Team Description 04/09/2022 Appointment Laboratory Medicine Osman Wesley M.D. 200 [place] [phone] (Wallace forrester) 04/09/2022 Hospital Encounter Pulmonary Medicine Mario Pitt M.D. [address] [place] [address] [phone] (Wallace forrester) 04/09/2022 Appointment Cardiovascular Disease Yonas Wesley M.D. [address] [place] [address] [phone] (Wallace forrester) 04/16/2022 Office Visit Endocrinology Wesley Rankin APRN, C.N.P., D. N.P. [address] [place] [phone] (Wo rk) 05/23/2022 Office Visit Cardiovascular Disease Yonas Wesley M.D. [address] [place] [phone] (Wo rk) Scheduled Referrals Name Type Priority Associated Diagnoses Order S [facility] Endocrinology - Outpatient Routine Diabetes Mellitus Expecte d: Diabetes consult Referral Type 2 Hyperglycemia 01/2021 (clinic) (HCC) (Approximate), Expires: 03/08/2024 documented as of this encounter Visit Diagnoses Diagnosis Cardiomyopathy Ischemic - Primary Failure Heart ([facility]) Atherosclerotic Heart Disease Of [place] Coronary Artery Without Angina Pectoris Diabetes Mellitus Type 2 Hyperglycemia ( HCC) Congestive Heart Failure Ejection Fracti on Less Than 40 Percent ([facility]) Coronary Stent Status Post documented in this encounter Care Teams Network Controller Relationship Specialty Start Date End Date Elsewhere, Pcp PCP - General 02/22/21 documented as of this encounter
--- OUTSIDE RECORDS SUMMARY | 2022-04-09 07:36 | XMS_ITS | Encounter Summary ---
:1965 Author Organization [facility] Address [address] [place] [address] Care Team Providers Name Role Phone Elsewhere, Pcp Primary Care Provider Unavailable Encounter Details Date Type Department Care Team Description 03/22/2021 Hospital Department of Jorje, Cardiomyopathy Encounter Cardiovascular Aurelio Sharma, Ischemic Diseases in M.D., Ph.D. [place], [place] [address] [facility] [address] [place] [phone] Social History Tobacco Use Types Packs/Day Years [...] or relatives? How often do you attend sabianism or More than 4 times per year 02/09/2021 christianity services? Do you belong to any clubs or Yes 02/09/2021 organizations such as sabianism groups, unions, fraternal or athletic groups, or [...] as directed for 1 each 0 2020 [facility] diabetes control. blood-glucose meter Test [...] 0 03/13/2021 03/13/2022 reader (FreeStyle Jose 2 [place]) miscIndications: Diabetes Mellitus Type 2 Hyperglycemia (HCC) [...] Appointment Laboratory Medicine Osman Wesley M.D. [address] [place] [address] [phone] (Wo rk) 04/09/2022 Hospital Encounter Pulmonary Medicine Mario Pitt M.D. [address] [place] [address] [phone] (Wo rk) 04/09/2022 Appointment Cardiovascular Disease Yonas Wesley M.D. [address] [place] [address] [phone] (Wo rk) 04/16/2022 Office Visit Endocrinology Wesley Rankin APRN, C.N.P., D. N.P. [address] [place] [address] [phone] (Wo rk) 05/23/2022 Office Visit Cardiovascular Disease Yonas Wesley M.D. [address] [place] [phone] (Wo mitzy) documented as of this encounter Procedures Procedure Name Priority Date/Time Associated Diagnosis Comme nts ICD SINGLE CHAMBER Routine 03/22/2021 8:19 Cardiomyopathy Resu lts for this INTERROGATION WITH AM SPECIAL COLLECTIONS LIBRARIAN Ischemic procedure are in PROGRAMMING the results section. documented in this encounter Results ICD SINGLE CHAMBER INTERROGATION WITH PROGRAMMING (03/22/2021 8:19 AM SPECIAL COLLECTIONS LIBRARIAN) Component Value Ref Test Analysis Performed At [facility] gist Range Method Time Signature Date Time [id number] [facility] Interrogation LAB SYSTEM Session Implantable Biotronik [facility] Pulse Generator LAB SYSTEM Analytical Engineer Implantable [id number] Acticor 7 [facility] Pulse Generator VR-T DX LAB SYSTEM Model Implantable [id number] [facility] Pulse Generator LAB SYSTEM Serial Number Type In Clinic [facility] Interrogation LAB SYSTEM Session Re-programmed Unknown FOUNDATION During Session LAB SYSTEM Clinic Name [facility] LAB SYSTEM Renuka Implantable Defibrillator [facility] Pulse Generator LAB SYSTEM Type Implantable [id number] [facility] Pulse Generator LAB SYSTEM Implant Date Implantable Lead Biotronik [facility] Analytical Engineer LAB SYSTEM Implantable Lead [id number] Plexa DF-1 FOUND ATION Model S DX 65/15 LAB SYSTEM Implantable Lead [id number] [facility] Serial Number LAB SYSTEM Implantable Lead [id number] FOUND[facility] ON Implant Date LAB SYSTEM Implantable [...] Unknown FOUNDATION chambers paced LAB SYSTEM during AGRICULTURAL TECHNICIAN pacing. Lead Channel Unknown FOUNDATION Setting [...] Category LAB SYSTEM Zone Setting 400 ms [facility] Detection LAB SYSTEM Interval Lead Channel 8.8 mV [facility] Sensing LAB SYSTEM Intrinsic Amplitude Lead Channel 620 ohm [facility] Impedance Value LAB SYSTEM Lead Channel 22.7 mV [facility] Sensing LAB SYSTEM Intrinsic Amplitude Lead Channel 0.5 V [facility] Pacing Threshold LAB SYSTEM Amplitude Lead Channel 0.4 ms [facility] Pacing Threshold LAB SYSTEM Pulse Width Battery Status Unknown FOUNDATION LAB SYSTEM Battery Voltage 3.07 V FOUNDATION LAB SYSTEM Capacitor Charge FULL_ENERGY FOUNDATION Type LAB SYSTEM Capacitor Charge Reformation FOUNDATION Type LAB SYSTEM Capacitor Charge Shock FOUNDATION Type LAB SYSTEM Luis Miguel Statistic 0 % [facility] RV Percent Paced LAB SYSTEM Atrial Tachy 0 [facility] Statistic Number LAB SYSTEM Of Mode Switches Therapy 0 [facility] Statistic Recent LAB SYSTEM Shocks Delivered Therapy 0 [facility] Statistic Total LAB SYSTEM Shocks Delivered Therapy 0 [facility] Statistic Total LAB SYSTEM Shocks Aborted Episode 0 [facility] Statistic Recent LAB SYSTEM Count Episode Other FOUNDATION Statistic Type LAB SYSTEM Category Anatomical Region Laterality Modality Other Specimen (Source) Anatomical Collection Method Collection Time Re ceived Time Location / / Volume Laterality 03/22/2021 8:08 AM SPECIAL COLLECTIONS LIBRARIAN Narrative 03/27/2021 8:53 AM SPECIAL COLLECTIONS LIBRARIAN PURPOSE OF VISIT: Routine post-implant device interrogation [...] Ischemic documented in this encounter Care Teams Avionics System Engineer Relationship Specialty Start Date End Date Elsewhere, Pcp PCP - General 02/22/21 documented as of this encounter
--- OUTSIDE RECORDS SUMMARY | 2022-04-09 07:36 | XMS_ITS | Encounter Summary ---
:1965 Author Organization [facility] Address [address] [place] [address] Care Team Providers Name Role Phone Elsewhere, Pcp Primary Care Provider Unavailable Encounter Details Date Type Department Care Team Description 03/21/2021 Anesthesia Event Division of Cardiovascular Bren Persaud i, APRN, JUANIS [address] [place] [address] Diseases in [place], [facility], Tamika Bright APRN, CRNA, DNA [address] [place] [address] [place] [address] [place] [phone] Anesthesia Record Procedure Summary Procedure Name [...] h andoff to the receiving staff during [facility] we 1. Identified the patient 2. [...] Procedure Summary Date: 03/21/21 Room / Location: [facility] 4-543 / [facility] Anesthesia Start: 1051 Anesthesia Stop: [...] Post Op nausea/vomiting: none Hydration status: euvolemic HER ALL ROUND Anesthesia Preprocedure Evaluation - Tamika Barry APRN, CRNA, DNA - 03/21/2021 11:20 AM CST Preprocedure Anesthesia & H&P Assessment Procedure Summary Anesthesia Start Date/Time: 03/21/21 1051 Procedures: ICD IMPLANT - SINGLE CHAMBER (Left ) Venography - Subclavian (N/A ) Diagnosis: Cardiomyopathy Ischemic [I25.5] Pre-op diagnosis: Cardiomyopathy Ischemic [I25.5] Location: [place] [address] / [facility] Surgeons: Ellis Sawyer M.D., M.P.H. Pertinent components of the patient's history including current problem list, medical history, surgical history, family history, social history, medications and allergies were reviewed. Present illnessand pre-op diagnosis were confirmed. The planned surgery / procedure was verified with the patient /legal guardian. The patient's general health condition remains unchanged RELEVANT COMORBID CONDITIONS CV (+) Atherosclerotic Heart Disease [place] Coronary Artery With Other Forms Angina Pectoris (Stable Angina/Angina Of Exertion) ([facility]) (+) Congestive Heart Failure Ejection [...] with patient /legal guardian or through an airport screener. Risks/Benefits/Alternatives of Blood transfusion discussed with patient / legal guardian, including an opportunity to ask questions and/or decline some or all transfusion therapies. The patient / legalguardian consented to the use of all blood products, as deemed medically necessary Approval to Proceed: approved for anesthesia HER ALL ROUND documented in this encounter Plan of Treatment Upcoming Encounters Date Type Specialty Care Team Description 04/09/2022 Appointment Laboratory Medicine Osman Wesley M.D. [address] [place] [phone] (Wallace forrester) 04/09/2022 Hospital Encounter Pulmonary Medicine Mario Pitt M.D. [address] [place] [phone] (Wallace forrester) 04/09/2022 Appointment Cardiovascular Disease Yonas Wesley M.D. [address] [place] [phone] (Wallace forrester) 04/16/2022 Office Visit Endocrinology Wesley Rankin APRN, C.N.P., D. N.P. [address] [place] [phone] (Wallace forrester) 05/23/2022 Office Visit Cardiovascular Disease Yonas Wesley M.D. [address] [place] [phone] (Wallace forrester) documented as of this encounter Visit Diagnoses Not on filedocumented in this encounter Administered Medications Inactive Administered Medications - up to 3 most recent administrations Medication Order MAR Action Action Date Dose Rate Site acetaminophen injection Given 03/21/2021 11:15 AM BUTCHER ALL ROUND 1,000 mg intravenous, Administer over 15 Minutes, As needed, Starting on Sat03/21/21 at 1115, Anesthesia Intra-op ceFAZolin injection 2,000 mg (ANCEF) Given 03/21/2021 11:10 AM BUTCHER ALL ROUND 2 g 2,000 mg (rounded from 2,120 [...] fentaNYL injection (SUBLIMAZE) Given 03/21/2021 11:29 AM BUTCHER ALL ROUND 25 mcg intravenous, As needed, Starting on Sat03/21/21 at 1105, Anesthesia Intra-op Given 03/21/2021 11:19 AM BUTCHER ALL ROUND 25 mcg Given 03/21/2021 11:05 AM BUTCHER ALL ROUND 50 mcg iohexoL 300 mg iodine/mL solution (OMNIP AQUE) Given 03/21/2021 11:31 AM BUTCHER ALL ROUND 10 mL intravenous, As needed, Starting on Sat03/21/21 at 1131, Anesthesia Intra-op lactated ringers New Bag 03/21/2021 10:57 AM BUTCHER ALL ROUND intravenous, Continuous Infusion: Per Instructions PRN, Starting on Sat03/21/21 at 1057, Anesthesia Intra-op lidocaine (PF) (cardiac) injection Given 03/21/2021 10:55 AM BUTCHER ALL ROUND 60 mg intravenous, As needed, Starting on Sat03/21/21 at 1055, Anesthesia Intra-op midazolam (PF) injection (VERSED) Given 03/21/2021 10:57 AM BUTCHER ALL ROUND 2 mg intravenous, As needed, Starting on Sat03/21/21 at 1057, Anesthesia Intra-op propofol 10 mg/mL infusion Rate/Dose 03/21/2021 45 mcg/kg/min 23.274 (DIPRIVAN) Change 11:34 AM BUTCHER ALL ROUND mL/hr intravenous, Continuous Infusion: Per Instructions PRN, Starting on Sat03/21/21 at 1057, Anesthesia Intra-op Rate/Dose Change 03/21/2021 11:19 AM BUTCHER ALL ROUND 35 mcg/kg/min 18.102 mL/hr Rate/Dose Change 03/21/2021 11:10 AM BUTCHER ALL ROUND 25 mcg/kg/min 12.93 mL/hr propofol bolus from bag (DIPRIVAN) Given 03/21/2021 11:18 AM BUTCHER ALL ROUND 10 mg intravenous, As needed, Starting on Sat03/21/21 at 1118, Anesthesia Intra-op documented in this encounter Care Teams Benzene Still Utility Operator Relationship Specialty Start Date End Date Elsewhere, Pcp PCP - General 02/22/21 documented as of this encounter
--- OUTSIDE RECORDS SUMMARY | 2022-04-09 07:36 | XMS_ITS | Encounter Summary ---
:1965 Author Organization [facility] Address [address] [place] [address] Care Team Providers Name Role Phone Elsewhere, Pcp Primary Care Provider Unavailable Encounter Details Date Type Department Care Team Description 03/21/2021 Surgery Division of Cardiovascular Ellis Sawyer, ICD IMPLANT - SINGLE Diseases in [place], M.P .H. [facility] [address] [facility] [address] [place] [phone] Social History Tobacco Use Types Packs/Day Years [...] or relatives? How often do you attend mandaen or More than 4 times per year 02/09/2021 jewish services? Do you belong to any clubs or Yes 02/09/2021 organizations such as mandaen groups, unions, fraternal or athletic groups, or [...] Comments Blood Pressure 137/103 03/21/2021 12:12 PM [facility] Pulse 83 03/21/2021 12:20 PM [facility] Temperature 36.7 ??C (98.1 ??F) 03/21/2021 9:22 AM [facility] Respiratory Rate - - Oxygen Saturation 97% 03/21/2021 12:20 PM [facility] Inhaled Oxygen Concentration - - Weight - [...] Hypertension Essential Primary 4. Atherosclerotic Heart Disease [place] Coronary Artery With Other Forms Angina Pectoris [...] directed for diabetes control. FreeStyle Jose 2 [place] misc 1 kit daily. Generic drug: flash [...] The first appointment will be at the [facility]. The patient will be contacted by [facility] to set up this appointment. After this appointment, routine follow-up will continue with remote home monitoring. A remote home monitor has been given to the patient. They were instructed to verify communication between the monitor and the device, and instructed to send a transmission within the first week after returning home. Then call the [facility] at ([phone]) during regular business hours (Saturday-Saturday, 8 a.m. - 4p.m.) to verify the transmission was received. Wanda Carlos APRN, Colt.NJak, M.S.N. [facility] documented in this encounter Discharge Instructions Discharge [...] (usually 3-4 weeks). Pain: You may use [id number] Extra Strength Tylenol (acetaminophen) 500 mg tablets, [...] receipt of this transmission by calling the [facility] at or [phone]. Please contact us if you have any [...] 911 in the event of an emergency. [facility] documented in this encounter Medications at Time [...] as directed for 1 each 0 2020 [facility] [place] diabetes control. blood-glucose meter Test as directed [...] 0 03/13/2021 03/13/2022 reader (FreeStyle Jose 2 [place]) miscIndications: Diabetes Mellitus Type 2 Hyperglycemia (HCC) [...] Appointment Laboratory Medicine Osman Wesley M.D. [address] [place] [address] [phone] (Wo rk) 04/09/2022 Hospital Encounter Pulmonary Medicine Mario Pitt M.D. [address] [place] [phone] (Wo rk) 04/09/2022 Appointment Cardiovascular Disease Yonas Wesley M.D. [address] [place] [address] [phone] (Wo rk) 04/16/2022 Office Visit Endocrinology Wesley Rankin APRN C.N.P., D. N.P. [address] [place] [address] [phone] (Wo rk) 05/23/2022 Office Visit Cardiovascular Disease Yonas Wesley M.D. [address] [place] [phone] (Wo rk) documented as of this encounter Procedures Procedure Name Priority Date/Time Associated Diagnosis Comme nts DX CHEST AP OR PA RAD - Routine 03/21/2021 2:00 Result s for AND LATERAL 2 VIEWS (most inpatients PM [facility] this procedure and all are in the outpatients) results section. GLUCOSE POCT, B Routine 03/21/2021 1:10 Results f or PM [facility] this procedure are in the results section. ECG Routine 03/21/2021 Results for 12:33 PM [facility] this procedure are in the results section. ADULT OXYGEN Routine 03/21/2021 THERAPY 12:21 PM [facility] CAR CARDIAC DEVICE Routine 03/21/2021 Results f or INTERROGATION 12:19 PM [facility] this procedure are in the results section. GLUCOSE POCT, B Routine 03/21/2021 Results for 12:19 PM [facility] this procedure are in the results section. HEART RHYTHM Routine 03/21/2021 Cardiomyopathy Results for PROCEDURE 12:06 PM [facility] Ischemic this procedure are in the results section. HEART RHYTHM Routine 03/21/2021 Cardiomyopathy Results for PROCEDURE 12:06 PM [facility] Ischemic this procedure are in the results section. GLUCOSE POCT, B Routine 03/21/2021 9:19 Results f or AM [facility] this procedure are in the results section. documented in this encounter Results DX Chest AP or PA and Lateral 2 Views (03/21/2021 2:00 PM [facility]) Anatomical Region Laterality Modality Chest, Thoracic RST LOS, Thoracic ARZ LOS, Thoracic N/A Digital Radiography FLA LOS Specimen (Source) Anatomical Collection Method Collection Time Re ceived Time Location / / Volume Laterality 03/21/2021 2:01 PM [facility] Impressions 03/21/2021 2:08 PM [facility] Comparison with radiograph dated 02/23/2021. Interval placement of left subclavian approach single lead ICD with tip projecting over the right ventricle. No pneumothorax. Decrease in size of the small left pleural effusion. Aortic calcifications. Narrative 03/21/2021 2:08 PM [facility] EXAM: ??DX CHEST AP OR PA AND [...] PRO CEDURES Glucose, POCT (03/21/2021 1:10 PM [facility]) Analysis Performed At Patho logist Time Signature Glucose, POCT, 97 70 - 140 03/21/2021 [facility] B mg/dL 1:14 PM [facility] Site Capillary 03/21/2021 [facility] 1:14 PM [facility] Specimen Anatomical Collection Method Collection Time Receive d Time (Source) Location / / Volume Laterality Blood 03/21/2021 1:10 PM 1:14 [facility] PM [facility] Unknown Provider LAB POCT ORDERABLES-MANUAL Performing Organization Address City/State/ZIP Code Phon e Number POC [facility] [address] [place] [address] [facility] [place] [address] [place] [facility] [address] ECG 12 Lead (03/21/2021 12:33 PM [facility]) P athologist Signature Ventricular Rate 78 BPM MUSE ECG/Min DE Interval 178 ms MUSE QRSD Interval 90 ms MUSE QT Interval 414 ms MUSE QTC Interval 471 ms MUSE P [place] 72 degrees MUSE R [place] 74 degrees MUSE T Wave [place] 81 degrees MUSE Specimen Anatomical Collection Method Collection Time Receive d Time (Source) Location / / Volume Laterality 03/21/2021 12:33 03/21/2021 PM [facility] 12:45 PM [facility] Impressions MUSE - 03/21/2021 12:45 PM [facility] Normal sinus rhythm Cannot rule out Anterior [...] DEVICE - NO CHARGE (03/21/2021 12:19 PM [facility]) Component Value Ref Test Analysis Performed At [facility] Range Method Time Signature Date Time [id number] [facility] [place] Interrogation LAB SYSTEM Session Implantable Total Attorneysronik [facility] [place] Pulse Generator LAB SYSTEM Animal Caretaker Supervisor Implantable [id number] Acticor 7 [facility] [place] Pulse Generator VR-T DX LAB SYSTEM Model Implantable [id number] [facility] [place] Pulse Generator LAB SYSTEM Serial Number Type In Clinic [facility] Interrogation LAB SYSTEM Session Re-programmed Unknown [facility] During Session LAB SYSTEM Clinic Name [facility] LAB SYSTEM [place] Implantable Defibrillator [facility] [place] Pulse Generator LAB SYSTEM Type Implantable [id number] [facility] [place] Pulse Generator LAB SYSTEM Implant Date Implantable Lead Biotronik [facility] [place] Animal Caretaker Supervisor LAB SYSTEM Implantable Lead [id number] Plexa DF-1 FOUND ATION Model S DX 65/15 LAB SYSTEM Implantable Lead [id number] [facility] [place] Serial Number LAB SYSTEM Implantable Lead [id number] [facility] Implant Date LAB SYSTEM Implantable Lead UNKNOWN [facility] Location Detail LAB SYSTEM 1 Implantable Lead [...] Unknown [facility]ATION chambers paced LAB SYSTEM during DESIGNATED BROKER pacing. Lead Channel Unknown [facility] Setting Pacing [...] LAB SYSTEM Interval Lead Channel 5.9 mV [facility] [place] Sensing LAB SYSTEM Intrinsic Amplitude Lead Channel 581 ohm [facility] Impedance Value LAB SYSTEM Lead Channel 18.3 mV [facility] Sensing LAB SYSTEM Intrinsic Amplitude Lead Channel 0.4 V [facility] [place] Pacing Threshold LAB SYSTEM Amplitude Lead Channel 0.4 ms [facility] [place] Pacing Threshold LAB SYSTEM Pulse Width Battery Date [id number] [facility] [place] Time of LAB SYSTEM Measurements Battery Status Middle of Service [facility]OUND[facility] ION LAB SYSTEM Battery Voltage 3.07 V [facility]ATION LAB SYSTEM Capacitor Charge FULL_ENERGY [facility] Type LAB SYSTEM Capacitor Charge Reformation [facility] [place] Type LAB SYSTEM Capacitor Charge Shock [facility] Type LAB SYSTEM Therapy 0 [facility]ATION Statistic Recent LAB SYSTEM Shocks Delivered Therapy 0 [facility] Statistic Total LAB SYSTEM Shocks Delivered Therapy 0 [facility] [place] Statistic Total LAB SYSTEM Shocks Aborted Anatomical Region Laterality Modality Other Specimen (Source) Anatomical Collection Method Collection Time Re ceived Time Location / / Volume Laterality 03/21/2021 11:16 AM [facility] Narrative 03/27/2021 1:38 PM [facility] PURPOSE OF VISIT: ?? Implant of a [...] E (ABNORMAL) Glucose, POCT (03/21/2021 12:19 PM [facility]) Analysis Performed At Patho logist Time Signature Glucose, POCT, 64 (L) 70 - 140 03/21/2021 [facility] B mg/dL 12:33 PM [facility] Site Capillary 03/21/2021 [facility] 12:33 PM [facility] Specimen Anatomical Collection Method Collection Time Receive d Time (Source) Location / / Volume Laterality Blood 03/21/2021 12:19 03/21/2021 PM [facility] 12:33 PM [facility] Unknown Provider LAB POCT ORDERABLES-MANUAL Performing Organization Address City/State/ZIP Code Phon e Number POC [facility] [address] [place] [address] [place] [address] [place] [facility] [address] [facility] ICD IMPLANT - SINGLE CHAMBER, VENOGRAPHY - SUBCLAVIAN (03/21/2021 12:06 PM [facility]) Anatomical Region Laterality Modality X-Ray Angiography Specimen (Source) Anatomical Collection Method Collection Time Re ceived Time Location / / Volume Laterality 03/21/2021 11:16 AM [facility] Narrative 03/21/2021 4:26 PM [facility] For the complete report, see the Order-L [...] GY PROCS Glucose, POCT (03/21/2021 9:19 AM [facility]) Analysis Performed At Patho logist Time Signature Glucose, POCT, 96 70 - 140 03/21/2021 [facility] B mg/dL 9:23 AM [facility] Site Capillary 03/21/2021 [facility] 9:23 AM [facility] Specimen Anatomical Collection Method Collection Time Receive d Time (Source) Location / / Volume Laterality Blood 03/21/2021 9:19 AM 9:23 [facility] AM [facility] Unknown Provider LAB POCT ORDERABLES-MANUAL Performing Organization Address City/State/ZIP Code Phon e Number POC [facility] [address] [place] [address] [facility] [place] [address] [place] [facility] [address] documented in this encounter Visit Diagnoses Diagnosis Cardiomyopathy Ischemic Diabetes Mellitus Type 2 Hyperglycemia ( HCC) Cardiomyopathy Ischemic Atherosclerotic Heart Disease [place] Cor onary Artery With Other Forms Angina [...] 1,000 mg (TYLENOL) Given 03/21/2021 12:50 PM [facility] 1,000 mg 1,000 mg, oral, Every 6 [...] 25 mcg (SUBLIMAZE) Given 03/21/2021 1:00 PM [facility] 25 mcg 25 mcg, intravenous, Every 2 min PRN, moderate pain or score 4-6 of 10, severe pain or score 7-10 of 10, Starting on Sat03/21/21 at 1220, PACU (only), Up to maximum total dose of 200 mcg Given 03/21/2021 12:55 PM [facility] 25 mcg Given 03/21/2021 12:43 PM [facility] 25 mcg fentaNYL injection 50 mcg (SUBLIMAZE) 50 mcg, intravenous, Every 2 hour PRN, s evere pain or score 7-10 of 10, Starting on Sat03/21/21 at 1221, PACU & Post-Op, May repeat x1 do sing interval, if patient unable to take oral analgesics or oral analgesics are ineffective lidocaine 10 mg/mL (1 %) injection Given 03/21/2021 11:20 AM [facility] 28 mL Left Chest (XYLOCAINE) As needed, Starting on Sat03/21/21 at 1123, Intraprocedure (CV) oxyCODONE (ROXICODONE) 5 mg IR tablet - ADS Override Pull Starting on Sat03/21/21 at 1441, For 1 dose, Created by cabinet override oxyCODONE IR tablet 5 mg (ROXICODONE) Given 03/21/2021 2:48 PM [facility] 5 mg 5 mg, oral, Every 6 [...] Recently Administered Medications Times are shown in [facility]. Scheduled Medication Order 03/19/2021 03/20/2021 03/21/2021 ceFAZolin injection 2,000 mg (ANCEF) (COMPLETED) 1110 (Given - Provider: Tamika Barry, COMPLEX DIRECTOR, FAUCET POLISHER, DNAP) 2,000 mg (rounded from 2,120 mg [...] 1250 (Given - Provider: Satinder Cary R.N., CFRN) 1,000 mg, oral, Every 6 hours PRN, [...] 1243 (Given - Provider: Satinder Cary R.N., [facility]1255 (Given - Provider: Satinder Cary R.N., [facility])1300 (Given - Provider: Satinder Cary R.N., [facility]) 25 mcg, intravenous, Every 2 min PRN, [...] minutes. If nausea or vomiting persists ad director long term care next ordered antiemetic medicat ion (order for [...] 1448 (Given - Provider: Satinder Cary R.N., [facility]) 5 mg, oral, Every 6 hours PRN, [...] ineffective
documented in this encounter Care Teams Machine Cell Tuber Relationship Specialty Start Date End Date Elsewhere, Pcp PCP - General 02/22/21 documented as of this encounter
--- OUTSIDE RECORDS SUMMARY | 2022-04-09 07:36 | XMS_ITS | Encounter Summary ---
:1965 Author Organization [facility] Address [address] [place] [address] Care Team Providers Name Role Phone Elsewhere, Pcp Primary Care Provider Unavailable Encounter Details Date Type Department Care Team Description 03/08/2021 Hospital Encounter Department of Osman Wesley Cardi omyopathy Ischemic; Laboratory Medicine MLisaDLisa Congestive Heart Failure Ejection Fracti on Less Than 40 Percent (HCC); and Pathology, [address] [place] [address] Failure Heart (HCC) [place] [phone] [place] [phone] [address] [facility] (Work) [place], [place] [phone] (Fax) [phone] Social History Tobacco Use Types Packs/Day Years [...] as directed for 1 each 0 2020 [facility] [place] [place] diabetes control. blood-glucose [...] Take 1 capsule (300 30 capsule 0 100 04/202003/21/2021 300 mg capsule mg total) by [...] Appointment Laboratory Medicine Osman Wesley M.D. [address] [place] [phone] (Wallace forrester) 04/09/2022 Hospital Encounter Pulmonary Medicine Mario Pitt M.D. [address] [place] [phone] (Wallace forrester) 04/09/2022 Appointment Cardiovascular Disease Yonas Wesley M.D. [address] [place] [phone] (Wallace forrester) 04/16/2022 Office Visit Endocrinology Wesley Rankin APRN, C.N.P., D. N.P. [address] [place] [phone] (Wallace forrester) 05/23/2022 Office Visit Cardiovascular Disease Yonas Wesley M.D. [address] [place] [phone] (Wallace forrester) documented as of this encounter Procedures Procedure Name Priority Date/Time Associated Diagnosis Comme nts NT-PRO B-TYPE Routine 03/08/2021 6:49 Failure Heart (HCC) Resu lts for this NATRIURETIC PEPTIDE AM PROPERTY DISPOSAL OFFICER procedur e are in (BNP), S the results section. PROTHROMBIN TIME Routine 03/08/2021 6:49 Cardiomyopathy Result s for this (PT), P AM PROPERTY DISPOSAL OFFICER Ischemic procedure are in Congestive Heart the results Failure Ejection section. Fraction Less Than 40 Percent (HCC) Failure Heart (HCC) TYPE AND SCREEN Routine 03/08/2021 6:49 Cardiomyopathy Results for this AM PROPERTY DISPOSAL OFFICER Ischemic procedure are in Congestive Heart the results Failure Ejection section. Fraction Less Than 40 Percent (HCC) Failure Heart (HCC) URIC ACID, S/P Routine 03/08/2021 6:49 Failure Heart (HCC) Res ults for this AM PROPERTY DISPOSAL OFFICER procedure are i n the results section. BUN (BLOOD UREA Routine 03/08/2021 6:49 Failure Heart (HCC) Re sults for this NITROGEN), S/P AM PROPERTY DISPOSAL OFFICER procedure are in the results section. SODIUM, S/P Routine 03/08/2021 6:49 Failure Heart (HCC) Resul ts for this AM PROPERTY DISPOSAL OFFICER procedure are i n the results section. POTASSIUM, S/P Routine 03/08/2021 6:49 Failure Heart (HCC) Res ults for this AM PROPERTY DISPOSAL OFFICER procedure are i n the results section. CREATININE WITH Routine 03/08/2021 6:49 Failure Heart (HCC) Re sults for this EGFR, S/P AM PROPERTY DISPOSAL OFFICER procedure are i n the results section. documented in this encounter Results Uric Acid (03/08/2021 6:49 AM PROPERTY DISPOSAL OFFICER) P athologist Signature Uric Acid, S 7.0 3.7 - 8.0 03/08/2021 DTL mg/dL 8:05 AM PROPERTY DISPOSAL OFFICER Specimen Anatomical Collection Method Collection Time Receive d Time (Source) Location / / Volume Laterality Blood (Blood, 03/08/2021 6:49 AM 03/08/20 7:37 Venous) PROPERTY DISPOSAL OFFICER AM PROPERTY DISPOSAL OFFICER Osman Wesley M.D. LAB BLOOD ADD-ON Performing Organization Address City/State/ZIP Code Phon e Number [facility] - [address] [place], [place] [address] [facility] [place] [address] Laboratories-[facility] [address] Sodium (03/08/2021 6:49 AM PROPERTY DISPOSAL OFFICER) athologist Signature Sodium, S 140 135 - 145 03/08/2021 8:05 DTL mmol/L AM PROPERTY DISPOSAL OFFICER Specimen Anatomical Collection Method Collection Time Receive d Time (Source) Location / / Volume Laterality Blood (Blood, 03/08/2021 6:49 AM 03/08/20 7:37 Venous) PROPERTY DISPOSAL OFFICER AM PROPERTY DISPOSAL OFFICER Osman Wesley M.D. LAB BLOOD ADD-ON Performing Organization Address City/State/[facility] Phon e Number [facility] - [address] [place], [place] [address] [place] [id number] [place] [address] (ABNORMAL) NT-Pro B-Type Natriuretic Peptide (BNP) (03/08/2021 6:49 AM PROPERTY DISPOSAL OFFICER) athologist [facility] NT-Pro BNP 608 (H) <=67 pg/mL 03/08/2021 DTL 8:05 AM PROPERTY DISPOSAL OFFICER Comment: NT-proBNP values less than 300 pg/mL [...] (Blood, 03/08/2021 6:49 AM 03/08/20 7:37 Venous) PROPERTY DISPOSAL OFFICER AM PROPERTY DISPOSAL OFFICER Osman Wesley M.D. LAB BLOOD ADD-ON Performing Organization Address City/State/[facility] Phon e Number [facility] - [address] [place], [place] [address] [facility] [place] [id number] [facility] [address] Potassium (03/08/2021 6:49 AM PROPERTY DISPOSAL OFFICER) athologist Signature Potassium, S 4.8 3.6 - 5.2 03/08/2021 DTL mmol/L 8:05 AM PROPERTY DISPOSAL OFFICER Specimen Anatomical Collection Method Collection Time Receive d Time (Source) Location / / Volume Laterality Blood (Blood, 03/08/2021 6:49 AM 03/08/20 7:37 Venous) PROPERTY DISPOSAL OFFICER AM PROPERTY DISPOSAL OFFICER Osman Wesley M.D. LAB BLOOD ADD-ON Performing Organization Address City/[facility] Code Phon e Number [facility] - 200 [place], [place] [address] [place] [address] [place] [address] Creatinine with Estimated GFR (03/08/2021 6:49 AM PROPERTY DISPOSAL OFFICER) athologist Signature Creatinine 0.99 0.74 - 03/08/2021 DTL 1.35 mg/dL 8:05 AM PROPERTY DISPOSAL OFFICER eGFR-Non 86 >=60 03/08/2021 DTL Black/ mL/min/BSA 8:05 AM PROPERTY DISPOSAL OFFICER [place] Comment: ----ADDITIONAL INFORMATION---- Estimated GFR calculated using the 2009 CKD_EPI creatinine equation. eGFR-Black/ >90 >=60 mL/min/BSA 2020 8:05 AM PROPERTY DISPOSAL OFFICER DTL Comment: ----ADDITIONAL INFORMATION---- Estimated GFR calculated using the 2009 CKD_EPI creatinine equation. Specimen Anatomical Collection Method Collection Time Receive d Time (Source) Location / / Volume Laterality Blood (Blood, 03/08/2021 6:49 AM 03/08/20 7:37 Venous) PROPERTY DISPOSAL OFFICER AM PROPERTY DISPOSAL OFFICER Osman Wesley M.D. LAB BLOOD ADD-ON Performing Organization Address City/[facility] Code Phon e Number [facility] - 200 [place], [place] [address] [place] [address] Laboratories-[address] BUN (Blood Urea Nitrogen) (03/08/2021 6:49 AM PROPERTY DISPOSAL OFFICER) athologist Signature BUN (Blood Urea 17 8 - 24 03/08/2021 DTL Nitrogen), S mg/dL 8:05 AM PROPERTY DISPOSAL OFFICER Specimen Anatomical Collection Method Collection Time Receive d Time (Source) Location / / Volume Laterality Blood (Blood, 03/08/2021 6:49 AM 03/08/20 7:37 Venous) PROPERTY DISPOSAL OFFICER AM PROPERTY DISPOSAL OFFICER Osman L Wesley M.D. LAB BLOOD ADD-ON Performing Organization Address City/[facility] Phon e Number [facility] - [address] Type and Screen (with reflex Antibody ID) (03/08/2021 6:49 AM PROPERTY DISPOSAL OFFICER) Patholo gist Method Time Signature ABORh A Pos Not 03/08/2021 ETRM applicable 3:22 PM PROPERTY DISPOSAL OFFICER Antibody Negative Negative 03/08/2021 ETRM Screen 3:38 PM PROPERTY DISPOSAL OFFICER Type & Screen 05/06/2021 03/08/2021 ETRM Expiration 23:59 3:22 PM PROPERTY DISPOSAL OFFICER Testing Renuka DEFAULT 03/08/2021 ETRM Location 7:31 AM PROPERTY DISPOSAL OFFICER Specimen Anatomical Collection Method Collection Time Receive d Time (Source) Location / / Volume Laterality Blood (Blood, 03/08/2021 6:49 AM 03/08/20 7:31 Venous) PROPERTY DISPOSAL OFFICER AM PROPERTY DISPOSAL OFFICER Osman Wesley M.D. LAB BLOOD BANK TEST ORDERABL ES Performing Organization Address [facility] Phon e Number [facility] - [address] Prothrombin Time (PT) (03/08/2021 6:49 AM PROPERTY DISPOSAL OFFICER) P athologist Signature Prothrombin 11.4 9.4 - 12.5 03/08/2021 DTL Time, P sec 7:47 AM PROPERTY DISPOSAL OFFICER INR 1.0 0.9 - 1.1 03/08/2021 DTL 7:47 AM PROPERTY DISPOSAL OFFICER Comment: ----ADDITIONAL INFORMATION---- Standard intensity warfarin therapeutic range: 2.0 to 3.0 ?? High intensity warfarin therapeutic rang e: 2.5 to 3.5 Specimen Anatomical Collection Method Collection Time Receive d Time (Source) Location / / Volume Laterality Blood (Blood, 03/08/2021 6:49 AM 03/08/20 7:26 Venous) PROPERTY DISPOSAL OFFICER AM PROPERTY DISPOSAL OFFICER Osman Wesley M.D. LAB BLOOD ADD-ON Performing Organization Address City/[facility]/ZIP [facility] Phon e Number [facility] - [address] [place] [address] [facility] [address] documented in this encounter Visit Diagnoses Diagnosis Cardiomyopathy Ischemic Congestive Heart Failure Ejection Fracti on Less Than 40 Percent (HCC) Failure Heart (HCC) documented in this encounter Care Teams Cryptologic Technician Technical Relationship Specialty Start Date End Date Elsewhere, Pcp PCP - General 02/22/21 documented as of this encounter
--- OUTSIDE RECORDS SUMMARY | 2022-04-09 07:36 | XMS_ITS | Encounter Summary ---
:1965 Author Organization [facility] Address [address] [place] [address] Care Team Providers Name Role Phone Elsewhere, Pcp Primary Care Provider Unavailable Reason for Visit Reason Comments Pre-scheduling Questionnaire Encounter Details Date Type Department Care Team Description 02/27/2021 Clinical Department of Prescheduling, Pre-scheduli ng Communication Orthopedic Surgery Provider Question marycarmen in [place], [place] [address] [place] [address] Social History Tobacco Use Types Packs/Day Years [...] Appointment Laboratory Medicine Osman Wesley M.D. 200 [place] [phone] (Wo rk) 04/09/2022 Hospital Encounter Pulmonary Medicine Mario Pitt M.D. [address] [place] [phone] (Wo rk) 04/09/2022 Appointment Cardiovascular Disease Yonas Wesley M.D. [address] [place] [phone] (Wo rk) 04/16/2022 Office Visit Endocrinology Wesley Rankin APRN, C.N.P., D. N.P. [address] [place] [phone] (Wo rk) 05/23/2022 Office Visit Cardiovascular Disease Yonas Wesley M.D. [address] [place] [address] [phone] (Wo rk) documented as of this encounter Visit Diagnoses Not on filedocumented in this encounter Care Teams Otr Company Driver Relationship Specialty Start Date End Date Elsewhere, Pcp PCP - General 02/22/21 documented as of this encounter
--- OUTSIDE RECORDS SUMMARY | 2022-04-09 07:36 | XMS_ITS | Encounter Summary ---
:1965 Author Organization [facility] Address [address] [place] [address] Care Team Providers Name Role Phone Elsewhere, Pcp Primary Care Provider Unavailable Encounter Details Date Type Department Care Team Description 03/20/2021 [facility] Department of Jorje, Cardiomyopathy Encounter Laboratory Aurelio Sharma, Ischemic Medicine and Anita, Ph.D. Pathology, [address] [phone] [place] [address] (Work) [place] [phone] Social History Tobacco Use Types [...] as directed for 1 each 0 2020 [facility] diabetes control. blood-glucose meter Test as directed [...] 0 03/13/2021 03/13/2022 reader (FreeStyle Jose 2 [place]) miscIndications: Diabetes Mellitus Type 2 Hyperglycemia (HCC) [...] Appointment Laboratory Medicine Osman Wesley M.D. [address] [place] [phone] (Wallace forrester) 04/09/2022 Hospital Encounter Pulmonary Medicine Mario Pitt M.D. [address] [place] [phone] (Wallace forrester) 04/09/2022 Appointment Cardiovascular Disease Yonas Wesley M.D. [address] [place] [phone] (Wallace forrester) 04/16/2022 Office Visit Endocrinology Wesley Rankin APRN, C.N.P., D. N.P. [address] [place] [phone] (Wallace forrester) 05/23/2022 Office Visit Cardiovascular Disease Yonas Wesley M.D. [address] [place] [phone] (Wo rk) documented as of this encounter Procedures Procedure Name Priority Date/Time Associated Diagnosis Comme nts CBC WITH Routine 03/20/2021 3:00 PM Cardiomyopathy Ischemi c Results for this DIFFERENTIAL, B RN ADVANCED procedure ar e in the results section. documented in this encounter Results (ABNORMAL) CBC with Differential, Blood (03/20/2021 3:00 PM RN ADVANCED) [facility] gist Method Time Signature Hemoglobin 12.9 (L) 13.2 - 03/20/2021 DTL 16.6 g/dL 3:34 PM RN ADVANCED Hematocrit 40.1 38.3 - 03/20/2021 DTL 48.6 % 3:34 PM RN ADVANCED Erythrocytes 4.75 4.35 - 03/20/2021 DTL 5.65 3:34 PM RN ADVANCED x10(12)/L MCV 84.4 78.2 - 03/20/2021 DTL 97.9 fL 3:34 PM RN ADVANCED RBC Distrib Width 14.3 11.8 - 03/20/2021 DTL 14.5 % 3:34 PM RN ADVANCED Platelet Count 343 (H) 135 - 317 03/20/2021 DTL x10(9)/L 3:34 PM RN ADVANCED Leukocytes 13.5 (H) 3.4 - 9.6 03/20/2021 DTL x10(9)/L 3:34 PM RN ADVANCED Neutrophils 8.93 (H) 1.56 - 03/20/2021 DTL 6.45 3:34 PM RN ADVANCED x10(9)/L Lymphocytes 3.12 (H) 0.95 - 03/20/2021 DTL 3.07 3:34 PM RN ADVANCED x10(9)/L Monocytes 0.84 (H) 0.26 - 03/20/2021 DTL 0.81 3:34 PM RN ADVANCED x10(9)/L Eosinophils 0.42 0.03 - 03/20/2021 DTL 0.48 3:34 PM RN ADVANCED x10(9)/L Basophils 0.16 (H) 0.01 - 03/20/2021 DTL 0.08 3:34 PM RN ADVANCED x10(9)/L Specimen Anatomical Collection Method Collection Time Receive d Time (Source) Location / / Volume Laterality Blood (Blood, 03/20/2021 3:00 PM 03/20/20 3:27 Venous) RN ADVANCED PM RN ADVANCED Aurelio Recinos M.D., Ph.D. LAB BLOOD ADD-ON Performing Organization Address City/State/ZIP Code Phon e Number [facility] - [address] [place], [place] [address] [facility] [address] Laboratories-[facility] [place] [address] documented in this encounter Visit Diagnoses Diagnosis Cardiomyopathy Ischemic documented in this encounter Care Teams Applied Psychology Chair Relationship Specialty Start Date End Date Elsewhere, Pcp PCP - General 02/22/21 documented as of this encounter
--- OUTSIDE RECORDS SUMMARY | 2022-04-09 07:36 | XMS_ITS | Encounter Summary ---
:1965 Author Organization [facility] Address [address] [place] [address] Care Team Providers Name Role Phone Elsewhere, Pcp Primary Care Provider Unavailable Reason for Visit Outpatient (Routine) - Closed Specialty Diagnoses / Procedures Referred By Contact Refer red To Contact Endocrinology Diagnoses Diabetes Mellitus Type 2 Hyperglycemia (HCC) Ervin Jaffe M.D. [place] [address] [place] [address] Referral ID Status Reason Start Date Expiration Date Visits Requ ested Visits Authorized [id number] Closed 03/08/2021 03/08/2022 1 1 Encounter Details Date Type Department Care Team Description 03/13/2021 Comprehensive Visit Division of Bertin, Diabetes Mellitus Type 2 Hyperglycemia (HCC) (Primary Dx); Endocrinology in [place], Cardiomyopa thy Ischemic; [place], [place] Anita Congestive Heart Failure Ejection Fracti on Less Than 40 Percent (HCC); [address] [place] [address] 200 [facility] Hyperlipidemia On Treatment [facility] [phone] [facility] [place] [phone] [place] [phone] Social History Tobacco Use Types Packs/Day Years [...] More than 4 times per year 02/09/2021 buddhist services? Do you belong to any clubs [...] direct patient counseling or coordination of care. [employer] documented in this encounter Plan of Treatment Upcoming Encounters Date Type Specialty Care Team Description 04/09/2022 Appointment Laboratory Medicine Osman Wesley M.D. [address] [place] [phone] (Wo rk) 04/09/2022 Hospital Encounter Pulmonary Medicine Mario Pitt M.D. [address] [place] [address] [phone] (Wo rk) 04/09/2022 Appointment Cardiovascular Disease Yonas Wesley M.D. [address] [place] [address] [phone] (Wo rk) 04/16/2022 Office Visit Endocrinology Wesley Rankin APRN, C.N.P., D. N.P. [address] [place] [address] [phone] (Wo rk) 05/23/2022 Office Visit Cardiovascular Disease Yonas Wesley M.D. [address] [place] [address] [phone] (Wo mitzy) documented as of this encounter Visit Diagnoses Diagnosis Diabetes Mellitus Type 2 Hyperglycemia ( HCC) - Primary Cardiomyopathy Ischemic Congestive Heart Failure Ejection Fracti on Less Than 40 Percent (HCC) Hyperlipidemia On Treatment documented in this encounter Care Teams Rn Telephone Triage Relationship Specialty Start Date End Date Elsewhere, Pcp PCP - General 02/22/21 documented as of this encounter
--- OUTSIDE RECORDS SUMMARY | 2022-04-09 07:36 | XMS_ITS | Encounter Summary ---
:1965 Author Organization [facility] Address [address] [place] [address] Care Team Providers Name Role Phone Elsewhere, Pcp Primary Care Provider Unavailable Reason for Visit Reason Comments Medical Information Encounter Details Date Type Department Care Team Description 03/04/[address] [facility] Phuong Ng, [facility] and RKristin, [facility] [phone] [facility] [phone] Social History Tobacco Use Types Packs/Day Years [...] experiencing symptoms from this as well. This journalists and other writers [facility] could be transferred to wind turbine sheet metal worker diamond grinder to review symptoms. documented in this encounter Plan of Treatment Upcoming Encounters Date Type Specialty Care Team Description 04/09/2022 Appointment Laboratory Medicine Osman Wesley M.D. [address] [place] [phone] (Wo rk) 04/09/2022 Hospital Encounter Pulmonary Medicine Mario Pitt M.D. [address] [place] [phone] (Wo rk) 04/09/2022 Appointment Cardiovascular Disease Yonas Wesley M.D. [address] [place] [phone] (Wo rk) 04/16/2022 Office Visit Endocrinology Wesley Rankin APRN, C.N.P., D. N.P. [address] [place] [phone] (Wo rk) 05/23/2022 Office Visit Cardiovascular Disease Yonas Wesley M.D. [address] [place] [phone] (Wo rk) documented as of this encounter Visit Diagnoses Not on filedocumented in this encounter Care Teams Pipe Inspector Relationship Specialty Start Date End Date Elsewhere, Pcp PCP - General 02/22/21 documented as of this encounter
--- OUTSIDE RECORDS SUMMARY | 2022-04-09 07:36 | XMS_ITS | Encounter Summary ---
:1965 Author Organization [facility] Address [address] [place] [address] Care Team Providers Name Role Phone Elsewhere, Pcp Primary Care Provider Unavailable Encounter Details Date Type Department Care Team Description 03/21/2021 Hospital Encounter Division of [place], Cardiomyo [place]ano Ischemic; Cardiovascular Ellis K, Diabetes Janel itus Type 2 Hyperglycemia (HCC) Diseases in [place], M.P .H. [place] [address] [facility] [address] [place] [phone] Social History Tobacco Use Types Packs/Day Years [...] Comments Blood Pressure 143/82 03/21/2021 3:10 PM NAVAL AIRCREWMAN Pulse 71 03/21/2021 3:10 PM NAVAL AIRCREW[employer] Temperature 36.7 ??C (98.1 ??F) 03/21/2021 9:22 AM NAVAL AIRCREWMAN Respiratory Rate - - Oxygen Saturation 98% 03/21/2021 3:10 PM NAVAL AIRCREWMAN Inhaled Oxygen Concentration - - Weight - [...] Hypertension Essential Primary 4. Atherosclerotic Heart Disease [place] Coronary Artery With Other Forms Angina Pectoris [...] directed for diabetes control. FreeStyle Jose 2 [place] misc 1 kit daily. Generic drug: flash [...] The first appointment will be at the [facility]. The patient will be contacted by [facility] to set up this appointment. After this appointment, routine follow-up will continue with remote home monitoring. A remote home monitor has been given to the patient. They were instructed to verify communication between the monitor and the device, and instructed to send a transmission within the first week after returning home. Then call the [facility] at ([phone]) during regular business hours (Saturday-Saturday, 8 a.m. - 4p.m.) to verify the transmission was received. Wanda Carlos APRN, C.N.P., M.S.N. L AIRCREWMAN documented in this encounter Discharge Instructions Discharge InstructionsHuWanda del rio APRN, C.N.PLisa, M.S.N. - 03/21/2021 2:17 PM CST You were discharged from the [facility] CVD Interventional/Heart Rhythm Service. [...] (usually 3-4 weeks). Pain: You may use [id number] Extra Strength Tylenol (acetaminophen) 500 mg tablets, [...] receipt of this transmission by calling the [facility] at or [phone]. Please contact us if you have any [...] 911 in the event of an emergency. L AIRCREWMAN documented in this encounter Medications at Time [...] as directed for 1 each 0 2020 [facility] diabetes control. blood-glucose meter Test as directed [...] 0 03/13/2021 03/13/2022 reader (FreeStyle Jose 2 [place]) miscIndications: Diabetes Mellitus Type 2 Hyperglycemia (HCC) [...] Appointment Laboratory Medicine Osman Wesley M.D. [address] [place] [phone] (Wo mitzy) 04/09/2022 Hospital Encounter Pulmonary Medicine Mario Pitt M.D. [address] [place] [phone] (Wo rk) 04/09/2022 Appointment Cardiovascular Disease Yonas Wesley M.D. [address] [place] [phone] (Wo rk) 04/16/2022 Office Visit Endocrinology Wesley Rankin APRN, C.N.P., D. N.P. [address] [place] [phone] (Wo rk) 05/23/2022 Office Visit Cardiovascular Disease Yonas Wesley M.D. [address] [place] [phone] (Wo rk) documented as of this encounter Procedures Procedure Name Priority Date/Time Associated Diagnosis Comme nts DX CHEST AP OR PA RAD - Routine 03/21/2021 2:00 Result s for AND LATERAL 2 VIEWS (most inpatients PM NAVAL AIRCREWMAN this procedure and all are in the outpatients) results section. GLUCOSE POCT, B Routine 03/21/2021 1:10 Results f or PM [employer]AL [employer] this procedure are in the results section. ECG Routine 03/21/2021 Results for 12:33 PM NAVAL AIRCREWMAN this procedure are in the results section. ADULT OXYGEN Routine 03/21/2021 THERAPY 12:21 PM NAVAL AIRCREWMAN CAR CARDIAC DEVICE Routine 03/21/2021 Results f or INTERROGATION 12:19 PM [employer]AL AIRCREWMAN this procedure are in the results section. GLUCOSE POCT, B Routine 03/21/2021 Results for 12:19 PM NAVAL AIRCREWMAN this procedure are in the results section. HEART RHYTHM Routine 03/21/2021 Cardiomyopathy Results for PROCEDURE 12:06 PM [employer]AL [employer]CREWMAN Ischemic this procedure are in the results section. HEART RHYTHM Routine 03/21/2021 Cardiomyopathy Results for PROCEDURE 12:06 PM NAVAL [employer]CREWMAN Ischemic this procedure are in the results section. GLUCOSE POCT, B Routine 03/21/2021 9:19 Results f or AM NAVAL AIRCREWMAN this procedure are in the results section. documented in this encounter Results DX Chest AP or PA and Lateral 2 Views (03/21/2021 2:00 PM NAVAL AIRCREWMAN) Anatomical Region Laterality Modality Chest, Thoracic RST LOS, Thoracic ARZ LOS, Thoracic N/A Digital Radiography FLA LOS Specimen (Source) Anatomical Collection Method Collection Time Re ceived Time Location / / Volume Laterality 03/21/2021 2:01 PM NAVAL AIRCREWMAN Impressions 03/21/2021 2:08 PM NAVAL AIRCREWMAN Comparison with radiograph dated 02/23/2021. Interval placement of left subclavian approach single lead ICD with tip projecting over the right ventricle. No pneumothorax. Decrease in size of the small left pleural effusion. Aortic calcifications. Narrative 03/21/2021 2:08 PM NAVAL AIRCREWMAN EXAM: ??DX CHEST AP OR PA AND [...] PRO CEDURES Glucose, POCT (03/21/2021 1:10 PM NAVAL AIRCREWMAN) Analysis Performed At Patho logist Time Signature Glucose, POCT, 97 70 - 140 03/21/2021 PCLX B mg/dL 1:14 PM NAVAL AIRCREWMAN Site Capillary 03/21/2021 PCLX 1:14 PM NAVAL AIRCREWMAN Specimen Anatomical Collection Method Collection Time Receive d Time (Source) Location / / Volume Laterality Blood 03/21/2021 1:10 PM 1:14 NAVAL AIRCREWMAN PM NAVAL AIRCREWMAN Unknown Provider LAB POCT ORDERABLES-MANUAL Performing Organization Address City/State/ZIP Code Phon e Number POC [facility] [address] [place] [address] PCLX [facility] [place] [address] [place] P[place] 200 [facility] ECG 12 Lead (03/21/2021 12:33 PM NAVAL AIRCREWMAN) P athologist Signature Ventricular Rate 78 BPM MUSE ECG/Min CT Interval 178 ms MUSE QRSD Interval 90 ms MUSE QT Interval 414 ms MUSE QTC Interval 471 ms MUSE P [place] 72 degrees MUSE R [place] 74 degrees MUSE T Wave [place] 81 degrees MUSE Specimen Anatomical Collection Method Collection Time Receive d Time (Source) Location / / Volume Laterality 03/21/2021 12:33 03/21/2021 PM NAVAL AIRCREWMAN 12:45 PM NAVAL AIRCREWMAN Impressions MUSE - 03/21/2021 12:45 PM NAVAL AIRCREWMAN Normal sinus rhythm Cannot rule out Anterior [...] DEVICE - NO CHARGE (03/21/2021 12:19 PM NAVAL AIRCREWMAN) Component Value Ref Test Analysis Performed At [facility] gist Range Method Time Signature Date Time [id number] [facility] Interrogation LAB SYSTEM Session Implantable Biotronik [facility] Pulse Generator LAB SYSTEM Lacing String Cutter Implantable [id number] Acticor 7 [facility] Pulse Generator VR-T DX LAB SYSTEM Model Implantable [id number] [facility] Pulse Generator LAB SYSTEM Serial Number Type In Clinic [facility] Interrogation LAB SYSTEM Session Re-programmed Unknown [facility]OUND[facility] During Session LAB SYSTEM Clinic Name [facility] LAB SYSTEM [place] Implantable Defibrillator [facility] Pulse Generator LAB SYSTEM Type Implantable [id number] [facility] Pulse Generator LAB SYSTEM Implant Date Implantable Lead Biotronik [facility] Lacing String Cutter LAB SYSTEM Implantable Lead [id number] Plexa DF-1 FOUND ATION Model S DX 65/15 LAB SYSTEM Implantable Lead [id number] [facility] Serial Number LAB SYSTEM Implantable Lead [id number] [facility] ON Implant Date LAB SYSTEM Implantable [...] Unknown [facility]ATION chambers paced LAB SYSTEM during ACCOUNT PROCESSOR pacing. Lead Channel Unknown [facility]ATION Setting Pacing [...] Category LAB SYSTEM Zone Setting 320 ms [facility] Detection LAB SYSTEM Interval Zone Setting [place] [facility] Type Category LAB SYSTEM Zone Setting 400 ms [facility] Detection LAB SYSTEM Interval Lead Channel 5.9 mV [facility] Sensing LAB SYSTEM Intrinsic Amplitude Lead Channel 581 ohm [facility] Impedance Value LAB SYSTEM Lead Channel 18.3 mV [facility] Sensing LAB SYSTEM Intrinsic Amplitude Lead Channel 0.4 V [facility] Pacing Threshold LAB SYSTEM Amplitude Lead Channel 0.4 ms [facility] Pacing Threshold LAB SYSTEM Pulse Width Battery Date [facility] Time of LAB SYSTEM Measurements Battery Status Middle of Service [facility]OUND[facility] ION LAB SYSTEM Battery Voltage 3.07 V [facility]ATION LAB SYSTEM Capacitor Charge FULL_ENERGY [facility]ATION Type LAB SYSTEM Capacitor Charge Reformation [facility] Type LAB SYSTEM Capacitor Charge Shock [facility] Type LAB SYSTEM Therapy 0 [facility] Statistic Recent LAB SYSTEM Shocks Delivered Therapy 0 [facility] Statistic Total LAB SYSTEM Shocks Delivered Therapy 0 [facility] Statistic Total LAB SYSTEM Shocks Aborted Anatomical Region Laterality Modality Other Specimen (Source) Anatomical Collection Method Collection Time Re ceived Time Location / / Volume Laterality 03/21/2021 11:16 AM NAVAL AIRCREWMAN Narrative 03/27/2021 1:38 PM NAVAL AIRCREWMAN PURPOSE OF VISIT: ?? Implant of a [...] E (ABNORMAL) Glucose, POCT (03/21/2021 12:19 PM NAVAL AIRCREWMAN) Analysis Performed At Patho logist Time Signature Glucose, POCT, 64 (L) 70 - 140 03/21/2021 PCLX B mg/dL 12:33 PM NAVAL AIRCREWMAN Site Capillary 03/21/2021 PCLX 12:33 PM NAVAL AIRCREWMAN Specimen Anatomical Collection Method Collection Time Receive d Time (Source) Location / / Volume Laterality Blood 03/21/2021 12:19 03/21/2021 PM NAVAL AIRCREWMAN 12:33 PM NAVAL AIRCREWMAN Unknown Provider LAB POCT ORDERABLES-MANUAL Performing Organization Address City/State/ZIP Code Phon e Number POC [facility] [address] [place] [address] [place] [address] [place] POC [address] ICD IMPLANT - SINGLE CHAMBER, VENOGRAPHY - SUBCLAVIAN (03/21/2021 12:06 PM NAVAL AIRCREWMAN) Anatomical Region Laterality Modality X-Ray Angiography Specimen (Source) Anatomical Collection Method Collection Time Re ceived Time Location / / Volume Laterality 03/21/2021 11:16 AM NAVAL AIRCREWMAN Narrative 03/21/2021 4:26 PM NAVAL AIRCREWMAN For the complete report, see the Order-L [...] GY PROCS Glucose, POCT (03/21/2021 9:19 AM NAVAL AIRCREWMAN) Analysis Performed At Patho logist Time Signature Glucose, POCT, 96 70 - 140 03/21/2021 PCLX B mg/dL 9:23 AM NAVAL AIRCREWMAN Site Capillary 03/21/2021 PCLX 9:23 AM NAVAL AIRCREWMAN Specimen Anatomical Collection Method Collection Time Receive d Time (Source) Location / / Volume Laterality Blood 03/21/2021 9:19 AM 9:23 NAVAL AIRCREWMAN AM NAVAL AIRCREWMAN Unknown Provider LAB POCT ORDERABLES-MANUAL Performing Organization Address City/State/ZIP Code Phon e Number POC [facility] [address] [place] [address] [place] [address] [place] P[facility] [address] documented in this encounter Visit Diagnoses Diagnosis Automatic Implantable Cardiac Defibrilla tor Status Post - Primary Cardiomyopathy Ischemic Diabetes Mellitus Type 2 Hyperglycemia ( HCC) Cardiomyopathy Ischemic Atherosclerotic Heart Disease [place] Cor onary Artery With Other Forms Angina [...] at 1230, For 1 dose, Created by gerat override acetaminophen tablet 1,000 mg (TYLENOL) Given 03/21/2021 12:50 PM NAVAL AIRCREWMAN 1,000 mg 1,000 mg, oral, Every 6 hours PRN, mild pain or score 1-3 of 10, Starting on Sat03/21/21 at 1221, PACU & Post-Op fentaNYL (SUBLIMAZE) 50 mcg/mL injection - ADS Override Pull Starting on Sat03/21/21 at 1229, For 1 dose, Created by gerat override fentaNYL injection 25 mcg (SUBLIMAZE) 25 mcg, intravenous, Every 2 hour PRN, m oderate pain or score 4-6 of 10, Starting on Sat03/21/21 at 1221, PACU & Post-Op, May repeat x1 dosing interval, if patient unable to take oral analgesics or oral analgesics are ineffective fentaNYL injection 25 mcg (SUBLIMAZE) Given 03/21/2021 1:00 PM NAVAL AIRCREWMAN 25 mcg 25 mcg, intravenous, Every 2 min PRN, moderate pain or score 4-6 of 10, severe pain or score 7-10 of 10, Starting on Sat03/21/21 at 1220, PACU (only), Up to maximum total dose of 200 mcg Given 03/21/2021 12:55 PM NAVAL AIRCREWMAN 25 mcg Given 03/21/2021 12:43 PM NAVAL AIRCREWMAN 25 mcg fentaNYL injection 50 mcg (SUBLIMAZE) [...] at 1441, For 1 dose, Created by carmen override oxyCODONE IR tablet 5 mg (ROXICODONE) Given 03/21/2021 2:48 PM NAVAL AIRCREWMAN 5 mg 5 mg, oral, Every 6 [...] Recently Administered Medications Times are shown in [employer]AL [employer]CREWMAN. Scheduled Medication Order 03/19/2021 03/20/2021 03/21/2021 ceFAZolin injection 2,000 mg (ANCEF) (COMPLETED) 1110 (Given - Provider: Tamika Barry, DERRICKMAN HELPER, LEARNING ADMINISTRATOR, DNAP) 2,000 mg (rounded from 2,120 mg [...] 1243 (Given - Provider: Satinder Cary R.N., [facility])1255 (Given - Provider: Satinder Cary R.N., [facility])1300 (Given - Provider: Satinder Cary R.N., [facility]) 25 mcg, intravenous, Every 2 min PRN, [...] minutes. If nausea or vomiting persists ad final expense agent next ordered antiemetic medicat ion (order for [...] 1448 (Given - Provider: Satinder Cary R.N., [facility]) 5 mg, oral, Every 6 hours PRN, [...] ineffective
documented in this encounter Care Teams Warehouse Stock Clerk Relationship Specialty Start Date End Date Elsewhere, Pcp PCP - General 02/22/21 documented as of this encounter
--- OUTSIDE RECORDS SUMMARY | 2022-04-09 07:37 | XMS_ITS | Encounter Summary ---
:1965 Author Organization [facility] Address [address] [place] [address] Care Team Providers Name Role Phone None Reported, Pcp Primary Care Provider Unavailable Reason for Referral MRI/CAT/PET Scan (Routine) - Closed Specialty Diagnoses / Procedures Referred By Contact Refer red To Contact Radiology Diagnoses Failure Heart (HCC) Osman Wesley M.D. [facility] Procedures MR Cardiac without and with IV Contrast [address] [place] [address] Referral ID Status Reason Start Date Expiration Date Visits Requ ested Visits Authorized [id number] Closed 02/09/2021 02/09/2022 1 1 Reason for Visit MRI/CAT/PET Scan (Routine) - Closed Specialty Diagnoses / Procedures Referred By Contact Refer red To Contact Radiology Diagnoses Failure Heart (HCC) Osman Wesley M.D. [facility] Procedures MR Cardiac without and with IV Contrast [address] [place] [address] Referral ID Status Reason Start Date Expiration Date Visits Requ ested Visits Authorized [id number] Closed 02/09/2021 02/09/2022 1 1 Encounter Details Date Type Department Care Team Description 02/10/2021 Hospital Encounter Department of Osman Wesley Failu re Heart (HCC) Radiology, Jennifer Howard [facility], in [address] [place], [place] [address] [facility] [address] [place], [place] [phone] (Work) [phone] Social History Tobacco Use Types Packs/Day Years [...] Laboratory Medicine Osman Wesley M.D. [address] [place] [phone] ([facility]) 04/09/2022 Hospital Encounter Pulmonary Medicine Mario Pitt M.D. [address] [place] [phone] ( rk) 04/09/2022 Appointment Cardiovascular Disease Yonas Wesley M.D. [address] [place] [phone] ([facility]) 04/16/2022 Office Visit Endocrinology Wesley Rankin APRN, C.N.P., D. N.P. [address] [place] [phone] ([facility]) 05/23/2022 Office Visit Cardiovascular Disease Yonas Wesley M.D. [address] [place] [phone] ([facility]) documented as of this encounter Procedures Procedure Name Priority Date/Time Associated Comments Diagnosis MR CARDIAC RAD - Routine 02/10/2021 4:17 Failure Heart Results fo r this WITHOUT AND WITH (most inpatients PM CDT (HCC) procedu re are in IV CONTRAST and [...] documented as of this encounter Care Teams Projection Engineer Relationship Specialty Start Date End Date None Reported, Pcp PCP - General Family Medicine 01/25/2102/21 documented as of this encounter
--- OUTSIDE RECORDS SUMMARY | 2022-04-09 07:37 | XMS_ITS | Encounter Summary ---
:1965 Author Organization [facility] Address [address] [place] [address] Care Team Providers Name Role Phone Elsewhere, Pcp Primary Care Provider Unavailable Encounter Details Date Type Department Care Team Description 02/23/2021 Hospital Encounter Department of Osman Wesley [facility] Heart Laboratory Medicine Anita Ahmadi Disease [facility], [address] [facility] Artery With Other Forms [facility] in [place], [place] Angina Pectoris (Stable [facility] [phone] Angina/[place] [phone] Exertion) ([facility]) [address] [facility] (Work) [place], [place] [phone] (Fax) [phone] Social History Tobacco Use Types Packs/Day Years [...] as directed for 1 each 0 2020 [facility] diabetes control. blood-glucose meter Test as directed [...] Appointment Laboratory Medicine Osman Wesley M.D. [address] [place] [phone] (Wo mitzy) 04/09/2022 Hospital Encounter Pulmonary Medicine Mario Pitt M.D. [address] [place] [phone] (Wallace rk) 04/09/2022 Appointment Cardiovascular Disease Yonas Wesley M.D. [address] [place] [phone] (Wallace rk) 04/16/2022 Office Visit Endocrinology Wesley Rankin APRN, C.N.P., D. N.P. [address] [place] [phone] (Wo rk) 05/23/2022 Office Visit Cardiovascular Disease Yonas Wesley M.D. [address] [place] [phone] (Wallace forrester) documented as of this encounter Procedures Procedure Name Priority Date/Time Associated Diagnosis Comme nts NT-PRO B-TYPE Routine 02/23/2021 1:25 Atherosclerotic Heart Re sults for this NATRIURETIC PEPTIDE PM CDT Disease [facility] Worthy ry procedure are in (BNP), S Artery With Other Forms the results Angina Pectoris (Stable sect ion. Angina/Angina Of Exertion) (HCC) TROPONIN T, 5TH Routine 02/23/2021 1:25 Atherosclerotic Heart Results for this GEN, P PM CDT Disease [facility] Coronary proc edure are in Artery With Other Forms the results Angina Pectoris (Stable sect ion. Angina/Angina Of Exertion) ([facility]) BASIC METABOLIC Routine 02/23/2021 1:25 Atherosclerotic Heart Results for this PANEL, S/P PM CDT Disease [facility] Coronary proc edure are in Artery With Other Forms the results Angina Pectoris (Stable sect ion. Angina/Angina Of Exertion) ([facility]) documented in this encounter Results (ABNORMAL) Troponin T, 5th Generation (02/23/2021 1:25 PM CDT) athologist [facility] Troponin T, 5th 18 (H) <=15 ng/L 02/23/2021 DTL gen 2:34 PM CDT Specimen Anatomical Collection Method Collection Time Receive d Time (Source) Location / / Volume Laterality Blood (Blood, 02/23/2021 1:25 PM 02/24/20 2:06 Venous) CDT PM CDT Osman Wesley M.D. LAB BLOOD ADD-ON Performing Organization Address City/State/ZIP Code Phon e Number [facility] - [address] [place] [address] [facility] [place] [address] [facility] 200 [facility] Basic Metabolic Panel (02/23/2021 1:25 PM CDT) athologist [facility] Potassium, S 4.9 3.6 - 5.2 02/23/2021 [...] 02/23/2021 DTL Black/ mL/min/BSA 2:35 PM CDT Ecuadorean Comment: ----ADDITIONAL INFORMATION---- Estimated GFR calculated using [...] Address City/State/ZIP Code Phon e Number [facility] - [address] [place], [place] [address] [facility] [place] [address] [facility] [address] (ABNORMAL) NT-Pro B-Type Natriuretic [...] Address City/State/ZIP Code Phon e Number [facility] - [address] [place], [place] [address] [facility] [place] [address] [facility] [address] documented in this encounter Visit Diagnoses Diagnosis Atherosclerotic Heart Disease [facility] Cor onary Artery With Other Forms Angina Pectoris (Stable Angina/Angina Of Exertion) (HCC) documented in this encounter Care Teams Performance Test Architect Relationship Specialty Start Date End Date Elsewhere, Pcp PCP - General 02/22/21 documented as of this encounter
--- OUTSIDE RECORDS SUMMARY | 2022-04-09 07:37 | XMS_ITS | Encounter Summary ---
:1965 Author Organization [facility] Address [address] [place] [address] Care Team Providers Name Role Phone Elsewhere, Pcp Primary Care Provider Unavailable Encounter Details Date Type Department Care Team Description 02/24/2021 Surgery Division of Cardiovascular Cat Rizo, Coronary Angiography Diseases in [facility] [place] [address] [facility] [address] [place] [phone] Social History Tobacco Use Types Packs/Day Years [...] through Care Everywhere.Care Following Your Catheter Procedure ([place])documented in this encounter Medications at Time of [...] instructions were reviewed in detail as per [id number] with patient and family. They verbalized understanding. Follow up appointment is arranged. Patient was dismissed when discharge criteria was met, accompanied by family. All questions answered. documented in this encounter Plan of Treatment Upcoming Encounters Date Type Specialty Care Team Description 04/09/2022 Appointment Laboratory Medicine Osman Wesley M.D. [address] [place] [address] [phone] (Wallace forrester) 04/09/2022 Hospital Encounter Pulmonary Medicine Mario Pitt M.D. [address] [place] [phone] (Wallace forrester) 04/09/2022 Appointment Cardiovascular Disease Yonas Wesley M.D. [address] [place] [address] [phone] (Wallace forrester) 04/16/2022 Office Visit Endocrinology Wesley Rankin APRN, C.N.P., D. N.P. [address] [place] [address] [phone] (Wo rk) 05/23/2022 Office Visit Cardiovascular Disease Yonas Wesley M.D. [address] [place] [phone] (Wo rk) documented as of this encounter Procedures Procedure Name Priority Date/Time Associated Diagnosis Comme nts CARDIAC Routine 02/24/2021 4:27 Atherosclerotic Heart Res ults for this CATHETERIZATION PM CDT Disease [place] procedure are in Coronary Artery With the res ults Other Forms Angina section. Pectoris (Stable Angina/Angina Of Exertion) ([facility]) CARDIAC Routine 02/24/2021 4:27 Atherosclerotic Heart Res ults for this CATHETERIZATION PM CDT Disease [place] procedure are in Coronary Artery With the res ults Other Forms Angina section. Pectoris (Stable Angina/Angina Of Exertion) ([facility]) ADULT OXYGEN THERAPY Routine 02/24/2021 3:24 [...] Angina Pectoris (Stable Angina/Angina Of Exertion) ([facility]) CORONARY DIAGNOSTIC SUMMARY Coronary artery dominance is [...] Address City/State/ZIP Code Phon e Number POC [facility] [address] [place] [address] [facility] [place] [address] [place] [facility] [address] documented in this encounter Visit Diagnoses Diagnosis Atherosclerotic Heart Disease [place] Cor onary Artery With Other Forms Angina Pectoris (Stable Angina/Angina Of Exertion) (HCC) - Primary Atherosclerotic Heart Disease [place] Cor onary Artery With Other Forms Angina Pectoris (Stable Angina/Angina Of Exertion) (HCC) documented in this encounter Admitting Diagnoses Diagnosis Atherosclerotic Heart Disease [place] Cor onary Artery With Other Forms Angina [...] Provider: Irene Gibson R.N.)1548 (Given - Provider: rIene Gibson R.N.) As needed, Starting on Sat02/24/21 [...] (CV) documented in this encounter Care Teams Pipe Organ Technician Relationship Specialty Start Date End Date Elsewhere, Pcp PCP - General 02/22/21 documented as of this encounter
--- OUTSIDE RECORDS SUMMARY | 2022-04-09 07:37 | XMS_ITS | Encounter Summary ---
:1965 Author Organization [facility] Address [address] [place] [address] Care Team Providers Name Role Phone Elsewhere, Pcp Primary Care Provider Unavailable Reason for Referral Outpatient (Routine) - Closed Specialty Diagnoses / Procedures Referred By Contact Refer red To Contact Cardiovascular Disease Osman Wesley M .D. [facility] [address] [place] [address] Referral ID Status Reason Start Date Expiration Date Visits Requ ested Visits Authorized [id number] Closed 02/23/2021 02/23/2022 1 1 utpatient (Routine) - Closed Specialty Diagnoses / Procedures Referred By Contact Refer red To Contact Diagnoses Atherosclerotic Heart Disease [place] Coronary Artery With Other Forms Angina Pectoris (Stable Angina/Angina Of Exertion) (HCC) Osman Wesley M.D. [facility] Procedures ECG Heart Rhythm Monitor (Holter) [address] [place] [address] Referral ID Status Reason Start Date Expiration Date Visits Requ ested Visits Authorized [id number] Closed 02/23/2021 02/23/2022 1 1 Reason for Visit Appointment Request (Routine) - Closed Specialty Diagnoses / Procedures Referred By Contact Refer red To Contact Cardiovascular Disease Referral ID Status Reason Start Date Expiration Date Visits Requ ested Visits Authorized [id number] Closed 02/20/2021 02/20/2022 1 1 Encounter Details Date Type Department Care Team Description 02/23/2021 Office Visit Department of Israel Hayden c Heart Disease [place] Coronary Artery With Other Forms Angina Pectoris (Stable Angina/Angina Of Exertion) ([facility]) (Primary Dx); Cardiovascular Medicine Sai Bright M.D. Congestive Heart Failure Ejection Fracti on Less Than 40 Percent (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); [address] [place], [place]omy[place] [phone] Social History Tobacco Use Types Packs/Day Years [...] pleasant 55 y.o. male who presents to [facility] for follow up of [...] started this because he is in between [place] and [place]. He understands the importance of cardiac rehab. [...] EXAM: CT CHEST WITH IV CONTRAST COMPARISON: [facility] examination from 11/28/2020. FINDINGS: In the [...] ASSESSMENT / PLAN # Atherosclerotic Heart Disease [place] Coronary Artery With Other Forms Angina Pectoris (Stable Angina/Angina Of Exertion) ([facility]) # History of ST Elevation Myocardial Infarction Involving Left Anterior Descending Coronary Artery ([facility]) (December 2019) # Congestive Heart Failure Ejection Fraction Less Than 40 Percent ([facility]) (NYHA Class 2) # Cardiomyopathy Ischemic Mr. [...] pursuethis. 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 Dr. Wesley and I reviewed Mr. Fairbanks's [...] Laboratory Medicine Osman Wesley M.D. [address] [place] [phone] (Wallace forrester) 04/09/2022 Hospital Encounter Pulmonary Medicine Mario Pitt M.D. [address] [place] [address] [phone] (Wallace forrester) 04/09/2022 Appointment Cardiovascular Disease Yonas Wesley M.D. [address] [place] [phone] (Wallace forrester) 04/16/2022 Office Visit Endocrinology Wesley Rankin APRN, C.N.PLisa, D. N.PLisa [address] [place] [phone] (Wo rk) 05/23/2022 Office Visit Cardiovascular Disease Yonas Wesley M.D. [address] [place] [phone] (Wo rk) Scheduled Referrals Name Type Priority Associated Order Schedule Diagnoses Cardiovascular Disease Outpatient Referral Routine Expected: nurse visit (clinic) 021 (Approximate), Expires: 02/24/2024 documented as of this encounter Results Basic Metabolic Panel (05/15/2021 1:43 PM TELECOM NETWORK MANAGER) athologist Signature Potassium, S 4.2 3.6 - 5.2 05/15/2021 DTL mmol/L 2:47 PM TELECOM NETWORK MANAGER Sodium, S 144 135 - 145 05/15/2021 DTL mmol/L 2:47 PM TELECOM NETWORK MANAGER Chloride, S 104 98 - 107 05/15/2021 DTL mmol/L 2:47 PM TELECOM NETWORK MANAGER Bicarbonate, S 27 22 - 29 05/15/2021 DTL mmol/L 2:47 PM TELECOM NETWORK MANAGER Anion Gap 13 7 - 15 05/15/2021 DTL 2:47 PM TELECOM NETWORK MANAGER BUN (Blood Urea 11 8 - 24 05/15/2021 DTL Nitrogen), S mg/dL 2:47 PM TELECOM NETWORK MANAGER Creatinine 1.10 0.74 - 05/15/2021 DTL 1.35 mg/dL 2:47 PM TELECOM NETWORK MANAGER eGFR-Non 75 >=60 05/15/2021 DTL Black/ mL/min/BSA 2:47 PM TELECOM NETWORK MANAGER Sw[place] Comment: ----ADDITIONAL INFORMATION---- Estimated GFR calculated using the 2009 CKD_EPI creatinine equation. eGFR-Black/ 87 >=60 mL/min/BSA 2021 2:47 PM TELECOM NETWORK MANAGER DTL Comment: ----ADDITIONAL INFORMATION---- Estimated GFR calculated using the 2009 CKD_EPI creatinine equation. Calcium, Total, S 9.4 8.6 - 10.0 mg/dL 05/15/2021 2:47 PM TELECOM NETWORK MANAGER DTL Glucose, S 81 70 - 140 mg/dL 05/15/2021 2:47 PM TELECOM NETWORK MANAGER D TL Specimen Anatomical Collection Method Collection Time Receive d Time (Source) Location / / Volume Laterality Blood (Blood, 05/15/2021 1:43 PM 05/15/19 2:20 Venous) TELECOM NETWORK MANAGER PM TELECOM NETWORK MANAGER Osman Wesley M.D. LAB BLOOD ADD-ON Performing Organization Address City/State/ZIP Code Phon e Number [facility] - [address] [place] [phone] [facility] [place] [address] [facility] 200 [facility] HOLTER MONITOR - IN CLINIC REIMBURSEMENT CONSULTANT (02/24/2021 2:54 PM CDT) [facility] Method Time Signature Min Heart Rate [...] AF Duration 0 duration INFOBIONIC MOME AF [place] 0 percent INFOBIONIC MOME Symptom Count 1 [...] was 102 bpm. VPCs were seen singly. Feed Mixer: Ida Reece/Leena Oconnell Procedure Note Carlos Ryder [...] was 102 bpm. VPCs were seen singly. Feed Mixer: Ida Reece/Leena Oconnell Osman Wesley M.D. CV CARDIAC SERVICES PROCEDUR ES Performing Organization Address City/[place] [facility]/ZIP Code Phon e Number INFOBIONIC MOME INFOBIONIC [...] Organization Address City/State/ZIP Code Phon e Number [facility] - [address] [place], [place] [address] [facility] [place] [address] [facility] [address] Basic Metabolic Panel (02/23/2021 [...] 02/23/2021 DTL Black/ mL/min/BSA 2:35 PM CDT Swazi Comment: ----ADDITIONAL INFORMATION---- Estimated GFR calculated using [...] Organization Address City/State/ZIP Code Phon e Number [facility] - [address] [place], [place] [address] [facility] [place] [address] [facility] [address] (ABNORMAL) NT-Pro B-Type [...] Organization Address City/State/ZIP Code Phon e Number [facility] - [address] [place], [place] [address] [facility] [place] [address] [facility] [address] documented in this encounter Visit Diagnoses Diagnosis Atherosclerotic Heart Disease [place] Cor onary Artery With Other Forms Angina Pectoris (Stable Angina/Angina Of Exertion) (HCC) - Primary Congestive Heart Failure Ejection Fracti on Less Than 40 Percent (HCC) ST Elevation Myocardial Infarction Invol ving Left Anterior Descending Coronary Artery (HCC) Cardiomyopathy Ischemic Atherosclerotic Heart Disease [place] Cor onary Artery With Other Forms Angina Pectoris (Stable Angina/Angina Of Exertion) (HCC) documented in this encounter Care Teams Customer Care Agent Relationship Specialty Start Date End Date Elsewhere, Pcp PCP - General 02/22/21 documented as of this encounter
--- OUTSIDE RECORDS SUMMARY | 2022-04-09 07:37 | XMS_ITS | Encounter Summary ---
:1965 Author Organization [facility] Address [address] [place] [address] Care Team Providers Name Role Phone None Reported, Pcp Primary Care Provider Unavailable Reason for Visit Reason Comments Cardiac rehab referral Encounter Details Date Type Department Care Team Description 02/10/2021 Clinical Department of [place], Cardiac rehab Communication Cardiovascular Anat Bright, referral Medicine in [place], [place] [address] [facility] [address] [place] [phone] Social History Tobacco Use Types Packs/Day Years [...] or relatives? How often do you attend tenriism or More than 4 times per year 02/09/2021 caodaism services? Do you belong to any clubs or Yes 02/09/2021 organizations such as tenriism groups, unions, fraternal or athletic groups, or [...] will continue traveling back and forth from [place] to [place] every few weeks. When he establishes a residence in [place], he plans to reach out to his care team for a referral to a local cardiac rehab program. All questions were answered to the best of my ability. Telephone Encounter - Anat Fay RCEP - 02/10/2021 9:47 AM CDT Phone call made to patient to discuss a cardiac rehab referral. Patient reports he is in the processof moving to [place] from [place] and continuing to work with the pulmonary department here at [place] to discuss ongoing workup. Cardiac rehab was explained to the patient and it is something he is interested in completing. He requests we contact him again in 1 week to discuss a referral location, as he may know more about a living situation in [place] that time. All other questions and concerns were answered to the best of my ability. documented in this encounter Plan of Treatment Upcoming Encounters Date Type Specialty Care Team Description 04/09/2022 Appointment Laboratory Medicine Osman Wesley M.D. [address] [place] [address] [phone] (Wallace forrester) 04/09/2022 Hospital Encounter Pulmonary Medicine Mario Pitt M.D. [address] [place] [address] [phone] (Wallace forrester) 04/09/2022 Appointment Cardiovascular Disease Yonas Wesley M.D. [address] [place] [address] [phone] (Wallace forrester) 04/16/2022 Office Visit Endocrinology Wesley Rankin APRN, C.N.P., D. N.P. [address] [place] [phone] (Wallace forrester) 05/23/2022 Office Visit Cardiovascular Disease Yonas Wesley M.D. [address] [place] [address] [phone] (Wallace forrester) documented as of this encounter Visit Diagnoses Not on filedocumented in this encounter Additional Health Concerns Infection Onset Date Last Indicated Resolved Time COVID19 01/26/2021 01/26/2021 02/15/2021 4:55 AM CDT documented as of this encounter Care Teams Finish Repair Worker Relationship Specialty Start Date End Date None Reported, Pcp PCP - General Family Medicine 01/25/2102/21 documented as of this encounter
--- OUTSIDE RECORDS SUMMARY | 2022-04-09 07:37 | XMS_ITS | Encounter Summary ---
:1965 Author Organization [facility] Address [address] [place] [address] Care Team Providers Name Role Phone Elsewhere, Pcp Primary Care Provider Unavailable Reason for Referral Outpatient (Routine) - Closed Specialty Diagnoses / Procedures Referred By Contact Refer red To Contact Diagnoses Cardiomyopathy Ischemic Aurelio Osorio V., [facility] Procedures ECG 12 Lead Anita, Ph.D. 200 [place] [address] Referral ID Status Reason Start Date Expiration Date Visits Requ ested Visits Authorized [id number] Closed 03/02/2021 03/02/2022 1 1 Encounter Details Date Type Department Care Team Description 02/27/2021 Clinical Communication Department of Katelynn Henry Cardiovascular Medicine Rubina, Dayna in [facility] [phone] [facility] [facility] ([facility]) [place] [phone] Social History Tobacco Use Types Packs/Day Years [...] canceled the NF2F on 03/17. Thanks Cely AL HUSBANDRY TECHNICIAN Telephone Encounter - Cely Torre - 03/03/2021 [...] Appointment: 03/20 Pre-Procedure Testing: CBC, EKG, and NEWS INTERN preop clinic appointment, if we are not able to get this scheduled you will meet with an MD the day of the procedure to complete consent. Procedure Date: 03/21 Procedure: ICD Mr. Fairbanks was given the following education instructions: Calling In for your Report Time: The night before the procedure, please call the [facility] Service Line ([phone]) or the [facility] Backup Line ([phone]) between 7pm and midnight to find out what time to arrive. This automated phone line will have you type in your [facility] Number [phone] and birthdate 1965 to de termine your arrival time. On the day of your procedure: Check into [facility], [facility] 4th Floor (east elevators) at the [facility] 4D desk. Youdo not need to [...] call our Diabetes Medication Instruction Line at [phone]. Continue taking all other medications as prescribed. On the morning of your procedure, take only your prescription medications and skip any supplements that are not prescribed by a medical provider. Hibiclens: Please, shower the night prior to your procedure and the morning of your procedure with Hibiclens soap. This is available at your local pharmacy [id number] for purchase. You may also request packets from the [address] desk while you are here for [...] to either live within 100 miles of [place], [place] or spend the night in [place], [place] postprocedure. If you live within 100 miles and live greater than 30 minutes outside of [place], [place]); it is not required, but highly recommended that you spend the night in [place], [place]. You will have ascheduled device check the next day (please see further instructions below). If you experience any complications or have questions post procedure overnight, please call the [facility] Operatorat: [phone] and ask for [employer] [...] appointment guide and must be completed at [facility] in [place], [place] within designated timeframe. Please, see the [...] free to reach out to us at [phone]. COVID Screening Questions: 1. Do you, anyone [...] postponed or rescheduled to a later date. [facility] Specific Instructions: ?? We encourage you to check [email or web address] for more information as these instructions may change before your procedural date. ?? Must wear a mask at ALL times while on [facility] Rougon (except for when eating or showering). ?? Additionally, the [facility] has mandated that masks be worn [...] greater ?? Report any new respiratory symptoms AL HUSBANDRY TECHNICIAN Telephone Encounter - Renee Fong - 03/02/2021 [...] Appointment Laboratory Medicine Osman Wesley M.D. [address] [place] [address] [phone] (Wo rk) 04/09/2022 Hospital Encounter Pulmonary Medicine Mario Pitt M.D. [address] [place] [address] [phone] (Wo rk) 04/09/2022 Appointment Cardiovascular Disease Yonas Wesley M.D. [address] [place] [phone] (Wo mitzy) 04/16/2022 Office Visit Endocrinology Wesley Rankin APRN, C.NLisaPLisa, D. N.P. [address] [place] [address] [phone] (Wo rk) 05/23/2022 Office Visit Cardiovascular Disease Yonas Wesley M.D. [address] [place] [address] [phone] (Wo mitzy) documented as of this encounter Results ICD SINGLE CHAMBER INTERROGATION WITH PROGRAMMING (03/22/2021 8:19 AM ANIMAL HUSBANDRY TECHNICIAN) Component Value Ref Test Analysis Performed At [facility] Range Method Time Signature Date Time [id number] [facility] Interrogation LAB SYSTEM Session Implantable Biotronik [facility] Pulse Generator LAB SYSTEM Loan Officer Assistant Implantable [id number] Acticor 7 [facility] Pulse Generator VR-T DX LAB SYSTEM Model Implantable [id number] [facility] Pulse Generator LAB SYSTEM Serial Number Type In Clinic [facility] Interrogation LAB SYSTEM Session Re-programmed Unknown [facility] During Session LAB SYSTEM Clinic Name [facility] LAB SYSTEM [place] Implantable Defibrillator [facility] Pulse Generator LAB SYSTEM Type Implantable [id number] [facility] Pulse Generator LAB SYSTEM Implant Date Implantable Lead Biotronik [facility] Loan Officer Assistant LAB SYSTEM Implantable Lead [id number] Plexa DF-1 FOUND ATION Model S DX 65/15 LAB SYSTEM Implantable Lead [id number] [facility] Serial Number LAB SYSTEM Implantable Lead [id number] [facility]OUND[facility] ON Implant Date LAB SYSTEM Implantable Lead UNKNOWN FOUNDATION Location Detail LAB SYSTEM 1 Implantable Lead Lead length: 65 [facility]OUNDAT ION Special Function cm LAB SYSTEM Implantable Lead Right Ventricle [facility]OUND[facility] ION Location LAB SYSTEM [place] Setting VVI [facility]OUNDATION Mode (NBG Code) LAB SYSTEM [place] Setting 40 {beats}/ [facility] Lower Rate Limit min LAB SYSTEM [place] Setting 40 {beats}/ [facility] Hysterisis Rate min LAB SYSTEM [place] Setting 40 {beats}/ [facility] Night Rate min LAB SYSTEM Luis Miguel Setting AT Unknown FOUNDATION Mode Switch Mode LAB SYSTEM Lead Channel Bipolar [facility] Setting Sensing LAB SYSTEM Polarity Lead Channel 1.0 mV [facility] Setting Sensing LAB SYSTEM Sensitivity Lead Channel Bipolar [facility] Setting Sensing LAB SYSTEM Polarity Lead Channel 0.8 mV [facility] Setting Sensing LAB SYSTEM Sensitivity Lead Channel Unknown [facility] Setting Sensing LAB SYSTEM Polarity Lead Channel Unknown [facility] Setting Sensing LAB SYSTEM Cathode Location Lead Channel Unknown [facility] Setting Sensing LAB SYSTEM Cathode Terminal Ventricular Unknown [facility] chambers paced LAB SYSTEM during ANALYTICAL STATISTICIAN pacing. Lead Channel Unknown [facility] Setting Pacing LAB SYSTEM Polarity Lead Channel Unknown [facility] Setting Sensing LAB SYSTEM Cathode Location Lead Channel Unknown [facility] Setting Sensing LAB SYSTEM Cathode Terminal Lead Channel Bipolar [facility] Setting Pacing LAB SYSTEM Polarity Lead Channel 0.4 ms [facility] Setting Pacing LAB SYSTEM Pulse Width Lead Channel 1.4 V [facility] Setting Pacing LAB SYSTEM Amplitude Lead Channel Unknown [facility] Setting Pacing LAB SYSTEM Polarity Lead Channel Unknown [facility] Setting Sensing LAB SYSTEM Cathode Location Lead Channel Unknown [facility] Setting Sensing LAB SYSTEM Cathode Terminal Zone Setting VF FOUNDATION Type Category LAB SYSTEM Zone Setting 260 ms [facility] Detection LAB SYSTEM Interval Zone Setting [place] [facility] Type Category LAB SYSTEM Zone Setting 320 ms [facility] Detection LAB SYSTEM Interval Zone Setting [place] [facility] Type Category LAB SYSTEM Zone Setting 400 ms [facility] Detection LAB SYSTEM Interval Lead Channel 8.8 mV [facility] Sensing LAB SYSTEM Intrinsic Amplitude Lead Channel 620 ohm [facility] Impedance Value LAB SYSTEM Lead Channel 22.7 mV [facility] Sensing LAB SYSTEM Intrinsic Amplitude Lead Channel 0.5 V [facility] Pacing Threshold LAB SYSTEM Amplitude Lead Channel 0.4 ms [facility] Pacing Threshold LAB SYSTEM Pulse Width Battery Status Unknown [facility] LAB SYSTEM Battery Voltage 3.07 V [facility] LAB SYSTEM Capacitor Charge FULL_ENERGY [facility] Type LAB SYSTEM Capacitor Charge Reformation [facility] Type LAB SYSTEM Capacitor Charge Shock [facility] Type LAB SYSTEM [place] Statistic 0 % [facility] RV Percent Paced LAB SYSTEM Atrial Tachy 0 [facility] Statistic Number LAB SYSTEM Of Mode Switches Therapy 0 FOUNDATION Statistic Recent LAB SYSTEM Shocks Delivered Therapy 0 [facility] Statistic Total LAB SYSTEM Shocks Delivered Therapy 0 [facility] Statistic Total LAB SYSTEM Shocks Aborted Episode 0 FOUNDATION Statistic Recent LAB SYSTEM Count Episode Other FOUNDATION Statistic Type LAB SYSTEM Category Anatomical Region Laterality Modality Other Specimen (Source) Anatomical Collection Method Collection Time Re ceived Time Location / / Volume Laterality 03/22/2021 8:08 AM ANIMAL HUSBANDRY TECHNICIAN Narrative 03/27/2021 8:53 AM ANIMAL HUSBANDRY TECHNICIAN PURPOSE OF VISIT: Routine post-implant device interrogation [...] DEVICE ECG 12 Lead (03/20/2021 3:16 PM ANIMAL HUSBANDRY TECHNICIAN) P athologist Signature Ventricular Rate 83 BPM MUSE ECG/Min MS Interval 156 ms MUSE QRSD Interval 92 ms MUSE QT Interval 398 ms MUSE QTC Interval 467 ms MUSE P [place] 33 degrees MUSE R [place] 64 degrees MUSE T Wave [place] 52 degrees MUSE Specimen Anatomical Collection Method Collection Time Receive d Time (Source) Location / / Volume Laterality 03/20/2021 3:16 PM 3:27 ANIMAL HUSBANDRY TECHNICIAN PM ANIMAL HUSBANDRY TECHNICIAN Impressions MUSE - 03/20/2021 3:27 PM ANIMAL HUSBANDRY TECHNICIAN Normal sinus rhythm Cannot rule out Anterolateral [...] CBC with Differential, Blood (03/20/2021 3:00 PM ANIMAL HUSBANDRY TECHNICIAN) [facility] Method Time Signature Hemoglobin 12.9 (L) 13.2 - 03/20/2021 DTL 16.6 g/dL 3:34 PM ANIMAL HUSBANDRY TECHNICIAN Hematocrit 40.1 38.3 - 03/20/2021 DTL 48.6 % 3:34 PM ANIMAL HUSBANDRY TECHNICIAN Erythrocytes 4.75 4.35 - 03/20/2021 DTL 5.65 3:34 PM ANIMAL HUSBANDRY TECHNICIAN x10(12)/L MCV 84.4 78.2 - 03/20/2021 DTL 97.9 fL 3:34 PM ANIMAL HUSBANDRY TECHNICIAN RBC Distrib Width 14.3 11.8 - 03/20/2021 DTL 14.5 % 3:34 PM ANIMAL HUSBANDRY TECHNICIAN Platelet Count 343 (H) 135 - 317 03/20/2021 DTL x10(9)/L 3:34 PM ANIMAL HUSBANDRY TECHNICIAN Leukocytes 13.5 (H) 3.4 - 9.6 03/20/2021 DTL x10(9)/L 3:34 PM ANIMAL HUSBANDRY TECHNICIAN Neutrophils 8.93 (H) 1.56 - 03/20/2021 DTL 6.45 3:34 PM ANIMAL HUSBANDRY TECHNICIAN x10(9)/L Lymphocytes 3.12 (H) 0.95 - 03/20/2021 DTL 3.07 3:34 PM ANIMAL HUSBANDRY TECHNICIAN x10(9)/L Monocytes 0.84 (H) 0.26 - 03/20/2021 DTL 0.81 3:34 PM ANIMAL HUSBANDRY TECHNICIAN x10(9)/L Eosinophils 0.42 0.03 - 03/20/2021 DTL 0.48 3:34 PM ANIMAL HUSBANDRY TECHNICIAN x10(9)/L Basophils 0.16 (H) 0.01 - 03/20/2021 DTL 0.08 3:34 PM ANIMAL HUSBANDRY TECHNICIAN x10(9)/L Specimen Anatomical Collection Method Collection Time Receive d Time (Source) Location / / Volume Laterality Blood (Blood, 03/20/2021 3:00 PM 03/20/20 3:27 Venous) ANIMAL HUSBANDRY TECHNICIAN PM ANIMAL HUSBANDRY TECHNICIAN Aurelio Osorio M.D., Ph.D. LAB BLOOD ADD-ON Performing Organization Address City/State/ZIP Code Phon e Number [facility] - [address] [place], [place] [address] [facility] [place] [address] Laboratories-[facility] [address] documented in this encounter Visit Diagnoses Diagnosis Cardiomyopathy Ischemic - Primary Cardiomyopathy Ischemic documented in this encounter Care Teams Independent Trader Relationship Specialty Start Date End Date Elsewhere, Pcp PCP - General 02/22/21 documented as of this encounter
--- OUTSIDE RECORDS SUMMARY | 2022-04-09 07:37 | XMS_ITS | Encounter Summary ---
:[address] [facility] Address [address] [place] [address] Care Team Providers Name Role Phone Elsewhere, Pcp Primary Care Provider Unavailable Reason for Visit Outpatient (Routine) - Closed Specialty Diagnoses / Procedures Referred By Contact Refer red To Contact Cardiovascular Disease Osman Wesley M .D. [place] [address] [place] [phone] Referral ID Status Reason Start Date Expiration Date Visits Requ ested Visits Authorized [id number] Closed 02/23/2021 02/23/2022 1 1 Encounter Details Date Type Department Care Team Description 02/23/2021 Virtual Visit Department of Osman Wesley M.D. [address] [place] [phone] Atherosclerotic Heart Cardiovascular Jessica Carlton, R.NLisa [address] [place] [phone] Disease [place] Coronary Medicine in [place], Arter y With Other Forms [place] Angina Pectoris (Stable [address] [facility] Angina/Angina Of [place], [place] Exertion) ([facility] ) [phone] Social History Tobacco Use Types Packs/Day Years [...] More than 4 times per year 02/09/2021 scientologist services? Do you belong to any clubs [...] pm. 5. Stay within 100 miles of [place] overnight 6. Take all medications as instructed 7. Call the [facility] Service Line ([phone]) the evening before the procedure between the [...] Invasive Catheterization Procedure Patient Management Reference document #[id number] Date of procedure: 02/24/2021 Procedure to be [...] Cardiac Catheterization or Heart Rhythm Procedure?? , [id number]. See After Visit Summary for specific instructions [...] Appointment Laboratory Medicine Osman Wesley M.D. [address] [place] [address] [phone] (Wallace forrester) 04/09/2022 Hospital Encounter Pulmonary Medicine Mario Pitt M.D. [address] [place] [address] [phone] (Wallace forrester) 04/09/2022 Appointment Cardiovascular Disease Yonas Wesley M.D. [address] [place] [address] [phone] (Wallace forrester) 04/16/2022 Office Visit Endocrinology Wesley Rankin APRN, C.N.P., D. N.P. [address] [place] [phone] (Wallace forrester) 05/23/2022 Office Visit Cardiovascular Disease Yonas Wesley M.D. [address] [place] [address] [phone] (Wallace forrester) documented as of this encounter Visit Diagnoses Diagnosis Atherosclerotic Heart Disease [place] Cor onary Artery With Other Forms Angina Pectoris (Stable Angina/Angina Of Exertion) (HCC) documented in this encounter Care Teams Area Field Manager Relationship Specialty Start Date End Date Elsewhere, Pcp PCP - General 02/22/21 documented as of this encounter
--- OUTSIDE RECORDS SUMMARY | 2022-04-09 07:37 | XMS_ITS | Encounter Summary ---
:1965 Author Organization [facility] Address [address] [place] [address] Care Team Providers Name Role Phone None Reported, Pcp Primary Care Provider Unavailable Encounter Details Date Type Department Care Team Description 02/09/2021 Hospital Department of Michele, Pneumothorax U nspecified; Encounter Laboratory Erica Campoverde, Hypertension Es sential Primary; Medicine and PEDIATRIC DENTAL ASSISTANT, C.N.P., Atheroscleroti c Heart Disease [place] Coronary Artery With Other Forms Angina Pectoris (Stable Angina/Angina Of Exertion) (HCC); Pathology, Ron Zepeda Diabetes Mellitus Type 2 Hyperglycemia ( [facility]); Building, in [address] [place] [address] Failure Heart (HCC); [place], [place] Effusion Pleur al [place] [phone] [place] [address] [place], [place] (Work) [phone] Social History Tobacco Use Types Packs/Day Years [...] Laboratory Medicine Osman Wesley M.D. [address] [place] [address] [phone] (Wo rk) 04/09/2022 Hospital Encounter Pulmonary Medicine Mario Pitt M.D. [address] [place] [phone] (Wo rk) 04/09/2022 Appointment Cardiovascular Disease Yonas Wesley M.D. [address] [place] [address] [phone] (Wo rk) 04/16/2022 Office Visit Endocrinology Wesley Rankin APRN, C.N.P., D. N.P. [address] [place] [address] [phone] (Wo rk) 05/23/2022 Office Visit Cardiovascular Disease Yonas Wesley M.D. [address] [place] [address] [phone] (Wo rk) documented as of this encounter Procedures Procedure Name Priority Date/Time Associated Diagnosis Comme nts LIPID PANEL, S Routine 02/09/2021 8:17 AM Pneumothorax Results for this CDT Unspecified procedure are in Hypertension the results Essential Primar y section. Atherosclerotic Heart Disease [place] Coronary Artery With Other Forms Angina Pectoris (Stable Angina/Angina Of Exertion) (HCC) Diabetes Mellitus Type 2 Hyperglycemia (HCC) Failure Heart (HCC) NT-PRO B-TYPE Routine 02/09/2021 8:17 AM Pneumothorax Results for this NATRIURETIC PEPTIDE CDT Unspecified procedure are in (BNP), S Hypertension the results Essential Primar y section. Atherosclerotic Heart Disease [place] Coronary Artery With Other Forms Angina Pectoris (Stable Angina/Angina Of Exertion) (HCC) Diabetes Mellitus Type 2 Hyperglycemia (HCC) Failure Heart (HCC) CBC WITH Routine 02/09/2021 8:17 AM Pneumothorax Results f or this DIFFERENTIAL, B CDT Unspecified procedure are in Hypertension the results Essential Primar y section. Atherosclerotic Heart Disease [place] Coronary Artery With Other Forms Angina Pectoris [...] Essential Primar y section. Atherosclerotic Heart Disease [place] Coronary Artery With Other Forms Angina Pectoris (Stable Angina/Angina Of Exertion) (HCC) Diabetes Mellitus Type 2 Hyperglycemia (HCC) Failure Heart (HCC) documented in this encounter Results (ABNORMAL) Hemoglobin A1c (02/09/2021 8:17 AM CDT) P athologist Signature Hemoglobin A1c, 6.4 (H) 4.0 [...] Organization Address City/State/ZIP Code Phon e Number [facility] - 200 [place], [place] [address] [facility] [place] [address] Laboratories-[address] (ABNORMAL) NT-Pro B-Type Natriuretic Peptide (BNP) [...] Organization Address City/State/ZIP Code Phon e Number [facility] - 200 [place], [place] [address] [place] [address] [facility]-[address] (ABNORMAL) Lipid Panel (02/09/2021 8:17 AM [...] Organization Address City/State/ZIP Code Phon e Number [facility] - [address] [place] [address] [facility] [place] [address] [facility] 200 [facility] Basic Metabolic Panel (02/09/2021 8:17 [...] 02/09/2021 DTL Black/ mL/min/BSA 9:53 AM CDT [place]ander Comment: ----ADDITIONAL INFORMATION---- Estimated GFR calculated using [...] Organization Address City/State/ZIP Code Phon e Number [facility] - [address] [place] [address] [facility] [place] [address] [facility] 200 [facility] (ABNORMAL) CBC with Differential, Blood (02/09/2021 8:17 AM CDT) [facility] Method Time Signature Hemoglobin 13.1 (L) [...] AM 02/10/20 8:45 Venous) CDT AM CDT Colt Hyde APRN.N.Roger., M.S.N. LAB BLOOD ADD- ON Performing Organization Address City/State/ZIP Code Phon e Number [facility] - [address] [place], [place] [address] [facility] [place] [address] Laboratories-[facility] [address] documented in this encounter Visit Diagnoses Diagnosis Pneumothorax Unspecified Hypertension Essential Primary Atherosclerotic Heart Disease [place] Cor onary Artery With Other Forms Angina Pectoris (Stable Angina/Angina Of Exertion) (HCC) Diabetes Mellitus Type 2 Hyperglycemia ( HCC) Failure Heart (HCC) Effusion Pleural documented in this encounter Additional Health Concerns Infection Onset Date Last Indicated Resolved Time COVID19 01/26/2021 01/26/2021 02/15/2021 4:55 AM CDT documented as of this encounter Care Teams Loan Interviewer Relationship Specialty Start Date End Date None Reported, Pcp PCP - General Family Medicine 01/25/2102/21 documented as of this encounter
--- OUTSIDE RECORDS SUMMARY | 2022-04-09 07:37 | XMS_ITS | Encounter Summary ---
:1965 Author Organization [facility] Address [address] [place] [address] Care Team Providers Name Role Phone Elsewhere, Pcp Primary Care Provider Unavailable Reason for Referral Behavioral Health (Routine) - Closed Specialty Diagnoses / Procedures Referred By Contact Refer red To Contact Psychiatry / Psychiatry Diagnoses Congestive Heart Failure Ejection Fraction Less Than 40 Percent (HCC) Osman Wesley M.D. [facility] [address] [place] [phone] Referral ID Status Reason Start Date Expiration Date Visits V isits Requested Authorized [id number] Closed Specialty 02/28/2021 02/28/2022 1 1 Services Required Reason for Visit Outpatient (Routine) - Closed Specialty Diagnoses / Procedures Referred By Contact Refer red To Contact Cardiovascular Disease Osman Wesley M .D. [facility] [address] [place] [phone] Referral ID Status Reason Start Date Expiration Date Visits Requ ested Visits Authorized [id number] Closed 02/14/2021 02/14/2022 1 1 Encounter Details Date Type Department Care Team Description 02/27/2021 Office Visit Department of Osman Wesley M.D. [address] [place] [address] [phone] Congestive Heart Cardiovascular Medicine Mo Fofana M.D. 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 Given that he has been in [place] for quite some time now, we will [...] Laboratory Medicine Osman Wesley M.D. [address] [place] [address] [phone] (Wo rk) 04/09/2022 Hospital Encounter Pulmonary Medicine Mario Pitt M.D. [address] [place] [address] [phone] (Wo rk) 04/09/2022 Appointment Cardiovascular Disease Yonas Wesley M.D. [address] [place] [address] [phone] (Wo rk) 04/16/2022 Office Visit Endocrinology Wesley Rankin APRN, C.N.P., D. N.P. [address] [place] [address] [phone] (Wo rk) 05/23/2022 Office Visit Cardiovascular Disease Yonas Wesley M.D. [address] [place] [phone] (Wo rk) Scheduled Referrals Name Type Priority [...] Primary documented in this encounter Care Teams Graphic Pre Press Trades Worker Relationship Specialty Start Date End Date Elsewhere, Pcp PCP - General 02/22/21 documented as of this encounter
--- OUTSIDE RECORDS SUMMARY | 2022-04-09 07:37 | XMS_ITS | Encounter Summary ---
:1965 Author Organization [facility] Address [address] [place] [address] Care Team Providers Name Role Phone Elsewhere, Pcp Primary Care Provider Unavailable Reason for Referral Outpatient (Routine) - Closed Specialty Diagnoses / Procedures Referred By Contact Refer red To Contact Diagnoses Atherosclerotic Heart Disease [place] Coronary Artery With Other Forms Angina Pectoris (Stable Angina/Angina Of Exertion) ([facility]) Osman Wesley M.D. [facility] Procedures ECG Heart Rhythm Monitor (Holter) [address] [place] [address] Referral ID Status Reason Start Date Expiration Date Visits Requ ested Visits Authorized [id number] Closed 02/23/2021 02/23/2022 1 1 Reason for Visit Outpatient (Routine) - Closed Specialty Diagnoses / Procedures Referred By Contact Refer red To Contact Diagnoses Atherosclerotic Heart Disease [place] Coronary Artery With Other Forms Angina Pectoris (Stable Angina/Angina Of Exertion) ([facility]) Osman Wesley M.D. [facility] Procedures ECG Heart Rhythm Monitor (Holter) [address] [place] [address] Referral ID Status Reason Start Date Expiration Date Visits Requ ested Visits Authorized [id number] Closed 02/23/2021 02/23/2022 1 1 Encounter Details Date Type Department Care Team Description 02/23/2021 Hospital Department of Osman Wesley Heart Encounter Cardiovascular Anita Ahmadi Disease [place] Diseases in [place], [facility] [address] Coronary Artery With [place], [place] Other Forms Angina [address] [place] [address] Pectoris (Stable [place], [place] [phone] Angina/[place] [phone] (Work) Exertion) ([facility]) [phone] Social History Tobacco Use Types Packs/Day Years [...] Appointment Laboratory Medicine Osman Wesley M.D. 200 [place] [phone] (Wallace forrester) 04/09/2022 Hospital Encounter Pulmonary Medicine Mario Pitt M.D. 200 [place] [phone] (Wallace forrester) 04/09/2022 Appointment Cardiovascular Disease Yonas Wesley M.D. [address] [place] [phone] (Wallace rk) 04/16/2022 Office Visit Endocrinology Wesley Rankin APRN, C.N.P., D. N.P. [address] [place] [phone] (Wallace rk) 05/23/2022 Office Visit Cardiovascular Disease Yonas Wesley M.D. [address] [place] [phone] (Wallace forrester) documented as of this encounter Procedures Procedure Name Priority Date/Time Associated Diagnosis Comme nts HOLTER MONITOR - Routine 02/24/2021 2:54 PM Atherosclerotic He art Results for this IN CLINIC CEMETERY LABORER CDT Disease [place] Coronary procedure are in Artery With Other Forms the results Angina Pectoris (Stable sect ion. Angina/Angina Of Exertion) (HCC) documented in this encounter Results HOLTER MONITOR - IN CLINIC CEMETERY LABORER (02/24/2021 2:54 PM CDT) [facility] gist Method Time Signature Min Heart [...] AF Duration 0 duration INFOBIONIC MOME AF Four [place] 0 percent INFOBIONIC MOME Symptom Count 1 [...] was 102 bpm. VPCs were seen singly. Fitter Placer: Harmony Reece Tysce n Procedure Note Carlos [...] was 102 bpm. VPCs were seen singly. Fitter Placer: Harmony Reece Tysce n Osman Wesley M.D. CV CARDIAC SERVICES PROCEDUR ES Performing Organization Address City/State/ZIP Code Phon e Number INFOBIONIC MOME INFOBIONIC MOME NA documented in this encounter Visit Diagnoses Diagnosis Atherosclerotic Heart Disease [place] Cor onary Artery With Other Forms Angina Pectoris (Stable Angina/Angina Of Exertion) (HCC) documented in this encounter Care Teams [employer] Relationship Specialty Start Date End Date Elsewhere, Pcp PCP - General 02/22/21 documented as of this encounter
--- OUTSIDE RECORDS SUMMARY | 2022-04-09 07:37 | XMS_ITS | Encounter Summary ---
:1965 Author Organization [facility] Address [address] [place] [address] Care Team Providers Name Role Phone Elsewhere, Pcp Primary Care Provider Unavailable Reason for Visit Reason Comments Pleural Effusion Encounter Details Date Type Department Care Team Description 02/23/2021 Documentation Division of Pulmonary Greg Camacho, Pleural Effusion Medicine in [place], Zahraa Nieves M.D. [place] [address] [facility] [address] [place] [phone] Social History Tobacco Use Types Packs/Day Years [...] Appointment Laboratory Medicine Osman Wesley M.D. [address] [place] [address] [phone] (Wo rk) 04/09/2022 Hospital Encounter Pulmonary Medicine Mario Pitt M.D. [address] [place] [address] [phone] (Wo rk) 04/09/2022 Appointment Cardiovascular Disease Yonas Wesley M.D. [address] [place] [address] [phone] (Wo rk) 04/16/2022 Office Visit Endocrinology Wesley Rankin APRN, C.N.P., D. N.P. [address] [place] [address] [phone] (Wo rk) 05/23/2022 Office Visit Cardiovascular Disease Yonas Wesley M.D. [address] [place] [address] [phone] (Wo rk) documented as of this encounter Visit Diagnoses Not on filedocumented in this encounter Care Teams Quality Control Associate Relationship Specialty Start Date End Date Elsewhere, Pcp PCP - General 02/22/21 documented as of this encounter
--- OUTSIDE RECORDS SUMMARY | 2022-04-09 07:37 | XMS_ITS | Encounter Summary ---
:1965 Author Organization [facility] Address [address] [place] [address] Care Team Providers Name Role Phone Elsewhere, Pcp Primary Care Provider Unavailable Encounter Details Date Type Department Care Team Description 02/24/2021 Hospital Division of [place], Atherosclerotic Heart Encounter Cardiovascular [place], Disease [place] [facility] With Other Forms [place] [address] Angina Pectoris (Stable [address] Angina/Angina Of [place], [place], [facility]) ([facility] ) [phone] [place] [phone] Social History Tobacco Use Types Packs/Day Years [...] through Care Everywhere.Care Following Your Catheter Procedure (Cameroonian)documented in this encounter Medications at Time of [...] as directed for 1 each 0 2020 [facility] diabetes control. blood-glucose meter Test as directed [...] instructions were reviewed in detail as per [id number] with patient and family. They verbalized understanding. Follow up appointment is arranged. Patient was dismissed when discharge criteria was met, accompanied by family. All questions answered. documented in this encounter Plan of Treatment Upcoming Encounters Date Type Specialty Care Team Description 04/09/2022 Appointment Laboratory Medicine Osman Wesley M.D. [address] [place] [address] [phone] (Wo rk) 04/09/2022 Hospital Encounter Pulmonary Medicine Mario Pitt M.D. [address] [place] [address] [phone] (Wo rk) 04/09/2022 Appointment Cardiovascular Disease Yonas Wesley M.D. [address] [place] [address] [phone] (Wo rk) 04/16/2022 Office Visit Endocrinology Wesley Rankin APRN, C.N.P., D. N.P. [address] [place] [address] [phone] (Wo rk) 05/23/2022 Office Visit Cardiovascular Disease Yonas Wesley M.D. [address] [place] [address] [phone] (Wo rk) documented as of this encounter Procedures Procedure Name Priority Date/Time Associated Diagnosis Comme nts CARDIAC Routine 02/24/2021 4:27 Atherosclerotic Heart Res ults for this CATHETERIZATION PM CDT Disease [place] procedure are in Coronary Artery With the res ults Other Forms Angina section. Pectoris (Stable Angina/Angina Of Exertion) ([facility]) CARDIAC Routine 02/24/2021 4:27 Atherosclerotic Heart Res ults for this CATHETERIZATION PM CDT Disease [place] procedure are in Coronary Artery With the res ults Other Forms Angina section. Pectoris (Stable Angina/Angina Of Exertion) ([facility]) ADULT OXYGEN THERAPY Routine 02/24/2021 3:24 PM [...] Address City/State/ZIP Code Phon e Number POC [facility] [address] [place] [address] [facility] [place] [place] [address] [place] POC [address] documented in this encounter Visit Diagnoses Diagnosis Atherosclerotic Heart Disease [place] Cor onary Artery With Other Forms Angina Pectoris (Stable Angina/Angina Of Exertion) (HCC) - Primary Atherosclerotic Heart Disease [place] Cor onary Artery With Other Forms Angina Pectoris (Stable Angina/Angina Of Exertion) (HCC) documented in this encounter Admitting Diagnoses Diagnosis Atherosclerotic Heart Disease [place] Cor onary Artery With Other Forms Angina [...] (CV) documented in this encounter Care Teams Plasterer Spot Relationship Specialty Start Date End Date Elsewhere, Pcp PCP - General 02/22/21 documented as of this encounter
--- OUTSIDE RECORDS SUMMARY | 2022-04-09 07:37 | XMS_ITS | Encounter Summary ---
:1965 Author Organization [facility] Address [address] [place] [address] Care Team Providers Name Role Phone None Reported, Pcp Primary Care Provider Unavailable Encounter Details Date Type Department Care Team Description 02/10/2021 Documentation Division of Pulmonary Greg Camacho, Medicine in [place], Zahraa Nieves M.D. [place] [address] [address] [facility] [address] [place] [phone] (Wo rk) Social History Tobacco Use Types [...] Appointment Laboratory Medicine Osman Wesley M.D. [address] [place] [phone] (Wo rk) 04/09/2022 Hospital Encounter Pulmonary Medicine Mario Pitt M.D. [address] [place] [phone] (Wo rk) 04/09/2022 Appointment Cardiovascular Disease Yonas Wesley M.D. [address] [place] [phone] (Wo rk) 04/16/2022 Office Visit Endocrinology Wesley Rankin APRN, C.N.P., D. N.P. [address] [place] [phone] (Wo rk) 05/23/2022 Office Visit Cardiovascular Disease Yonas Wesley M.D. [address] [place] [address] [phone] (Wo rk) documented as of this encounter Results DX [...] calcifications. Chest otherwise negative. Zahraa Camacho M.D. [facility]ML[facility] DIAGNOSTIC IMAGIN G PROCEDURES documented in this encounter Visit Diagnoses Diagnosis Effusion Pleural - Primary Effusion Pleural documented in this encounter Additional Health Concerns Infection Onset Date Last Indicated Resolved Time COVID19 01/26/2021 01/26/2021 02/15/2021 4:55 AM CDT documented as of this encounter Care Teams Prison Guard Supervisor Relationship Specialty Start Date End Date None Reported, Pcp PCP - General Family Medicine 01/25/2102/21 documented as of this encounter
--- OUTSIDE RECORDS SUMMARY | 2022-04-09 07:37 | XMS_ITS | Encounter Summary ---
:1965 Author Organization [facility] Address [address] [place] [address] Care Team Providers Name Role Phone Elsewhere, Pcp Primary Care Provider Unavailable Encounter Details Date Type Department Care Team Description 02/23/2021 Hospital Encounter Department of Beata Rodriguez Pleural Radiology, [place] Zahraa Nieves M.D. Building, in [address] [place] [address] [place] [phone] [place], [place] [phone] (Work) [phone] Social History Tobacco Use Types Packs/Day Years [...] 12/06/2020 stripsIndications: Diabetes Mellitus Type 2 Hyperglycemia ([facility]) blood sugar diagnostic USE DIRECTED TWO 100 each 1 08/2020 strips TIMES A DAY blood-glucose meter Test as directed for 1 each 0 2020 [facility] diabetes control. blood-glucose meter Test as directed for 1 each 0 2020 miscIndications: diabetes control. Diabetes Mellitus Type 2 Hyperglycemia ([facility]) metoprolol succinate TAKE 1 TABLET BY 60 [...] Laboratory Medicine Osman Wesley M.D. [address] [place] [phone] (Wo mitzy) 04/09/2022 Hospital Encounter Pulmonary Medicine Mario Pitt M.D. [address] [place] [address] [phone] (Wallace forrester) 04/09/2022 Appointment Cardiovascular Disease Yonas Wesley M.D. [address] [place] [address] [phone] (Wo rk) 04/16/2022 Office Visit Endocrinology Wesley Rankin APRN, C.N.P., D. N.P. [address] [place] [address] [phone] (Wo rk) 05/23/2022 Office Visit Cardiovascular Disease Yonas Wesley M.D. [address] [place] [address] [phone] (Wallace forrester) documented as of this encounter [...] Pleural documented in this encounter Care Teams Laminator Preforms Relationship Specialty Start Date End Date Elsewhere, Pcp PCP - General 02/22/21 documented as of this encounter
--- OUTSIDE RECORDS SUMMARY | 2022-04-09 07:37 | XMS_ITS | Encounter Summary ---
:1965 Author Organization [facility] Address [address] [place] [address] Care Team Providers Name Role Phone Elsewhere, Pcp Primary Care Provider Unavailable Encounter Details Date Type Department Care Team Description 02/23/2021 Orders Only Division of Pulmonary Greg Camacho, Medicine in [place], Zahraa Nieves M.D. [place] [address] [facility] [address] [place] [address] [place] [address] [phone] Social History Tobacco Use Types Packs/Day Years [...] Laboratory Medicine Osman Wesley M.D. [address] [place] [address] [phone] (Wallace forrester) 04/09/2022 Hospital Encounter Pulmonary Medicine Mario Pitt M.D. [address] [place] [address] [phone] (Wallace forrester) 04/09/2022 Appointment Cardiovascular Disease Yonas Wesley M.D. [address] [place] [address] [phone] (Wo rk) 04/16/2022 Office Visit Endocrinology Wesley Rankin APRN, C.N.P., D. N.P. [address] [place] [address] [phone] (Wo rk) 05/23/2022 Office Visit Cardiovascular Disease Yonas Wesley M.D. [address] [place] [address] [phone] (Wo rk) documented as of this encounter Visit Diagnoses Not on filedocumented in this encounter Care Teams Guillotine Operator Relationship Specialty Start Date End Date Elsewhere, Pcp PCP - General 02/22/21 documented as of this encounter
--- OUTSIDE RECORDS SUMMARY | 2022-04-09 07:38 | XMS_ITS | Encounter Summary ---
:1965 Author Organization [facility] Address [address] [place] [address] Care Team Providers Name Role Phone None Reported, Pcp Primary Care Provider Unavailable Encounter Details Date Type Department Care Team Description 01/26/2021 Lab Department of Laboratory Dajuan Hercules , Diabetes Mellitus Type 2 Hyperglycemia (HCC); Medicine and Pathology, [facility], in [address] [place] [address] [place] [phone] [place] [address] [phone] Social History Tobacco Use Types Packs/Day Years [...] or slept in a alf (including now)? Sex Assigned at Date Recorded Male 02/09/2021 2:11 PM CDT documented as of this encounter Miscellaneous Notes Result Encounter Note - Marielena Epps, RLisaN. - 01/26/2021 2:34 PM CDT The patient will be contacted if they are eligible for Monoclonal Antibody Infusion (MASS 1 or greater) and/or Remote Patient Monitoring (MASS 3 or greater). The [facility] ([facility]) sends general guidance about COVID-19 to all patients by letter or portal, except when a patient is hospitalized or resides in a group home. [facility] will call all adult patients at highest risk for severe complications of COVID-19 (MASS 3 or greater), those without an online services account, and those who require an poultry barn manager. Any patient with a MASS score 1 [...] for symptom management. For questions, contact the [facility] ([facility]): Pager: [phone] In basket: P [facility] COVID-19 POSITIVE Covid [...] to obtain the result by calling the [facility] result line or by checking the online services account. documented in this encounter Plan of Treatment Upcoming Encounters Date Type Specialty Care Team Description 04/09/2022 Appointment Laboratory Medicine Osman Wesley M.D. 200 [place] [phone] (Wallace forrester) 04/09/2022 Hospital Encounter Pulmonary Medicine Mario Pitt M.D. [address] [place] [address] [phone] (Wallace forrester) 04/09/2022 Appointment Cardiovascular Disease Yonas Wesley M.D. [address] [place] [address] [phone] (Wallace forrester) 04/16/2022 Office Visit Endocrinology Wesley Rankin APRN, C.N.P., D. N.P. [address] [place] [phone] (Wo rk) 05/23/2022 Office Visit Cardiovascular Disease Yonas Wesley M.D. [address] [place] [phone] (Wo rk) documented as of this encounter Procedures Procedure Name Priority Date/Time Associated Diagnosis Comme nts SARS COV-2 RNA, Routine 01/26/2021 7:08 AM Diabetes Mellitus T ype Results for this PCR, VARIES CDT 2 Hyperglycemia (HCC) procedure are in Dyspnea the results section. documented in this encounter Results (ABNORMAL) SARS CoV-2 RNA, PCR, Varies Asymptomatic (01/26/2021 7:08 AM CDT) [facility] Method Time Signature SARS CoV-2 Swab, 01/26/2021 DTL RNA, PCR, Nasopharynx 12:29 PM Source CDT SARS CoV-2 Detected (A) Undetected 01/26/2021 DTL RNA, PCR 12:29 PM CDT Comment: SARS-CoV-2 RNA present. ----ADDITIONAL INFORMATION---- This RT-PCR test has received Emergency Use Authorization (EUA) by the U.S. Food and Drug Administration an d is used per ore storage drier's instructions. Performance characteristics were verified by [facility] in a manner consistent with CLIA requirements. Visit the CDC website: https://www.cdc.g ov/coronavirus/ for the most recent guidelines on Coron avirus testing. Fact Sheet for Healthcare Providers: https://www.fda.gov/media/271572/downloa d Fact Sheet for Patients: https://www.fda.gov/media/616921/downloa d Specimen Anatomical Collection Method Collection Time Receive d Time (Source) Location / / Volume Laterality Varies 01/26/2021 7:08 AM 7:44 (Nasopharynx) CDT AM CDT Dajuan Hercules M.D. LAB MICROBIOLOGY - GENERAL O RDERABLES Performing Organization Address City/State/ZIP Code Phon e Number [facility] - 200 [place], [place] [address] [facility] [place] [address] [facility] [address] documented in this encounter Visit Diagnoses Diagnosis Diabetes Mellitus Type 2 Hyperglycemia ( HCC) Dyspnea documented in this encounter Additional Health Concerns Infection Onset Date Last Indicated Resolved Time COVID19 Pending 01/26/2021 01/26/2021 01/26/2021 12:29 PM CDT documented as of this encounter Care Teams Lumber Loader Relationship Specialty Start Date End Date None Reported, Pcp PCP - General Family Medicine 01/25/2102/21 documented as of this encounter
--- OUTSIDE RECORDS SUMMARY | 2022-04-09 07:38 | XMS_ITS | Encounter Summary ---
:1965 Author Organization [facility] Address [address] [place] [address] Care Team Providers Name Role Phone None Reported, Pcp Primary Care Provider Unavailable Reason for Visit Reason Comments Patient Education Encounter Details Date Type Department Care Team Description 01/27/2021 Clinical Communication Department of Luciana Bhagat ent Education Infusion Therapy in M, R.N. [place], [place] [address] [place] [address] Social History Tobacco Use Types [...] Appointment Laboratory Medicine Osman Wesley M.D. 200 [place] [phone] (Wallace forrester) 04/09/2022 Hospital Encounter Pulmonary Medicine Mario Pitt M.D. 200 [place] [phone] (Wallace forrester) 04/09/2022 Appointment Cardiovascular Disease Yonas Wesley M.D. [address] [place] [phone] (Wallace forrester) 04/16/2022 Office Visit Endocrinology Wesley Rankin APRN, C.N.P., D. N.P. [address] [place] [phone] (Wo rk) 05/23/2022 Office Visit Cardiovascular Disease Yonas Wesley M.D. [address] [place] [phone] (Wo rk) documented as of this encounter Visit Diagnoses Not on filedocumented in this encounter Additional Health Concerns Infection Onset Date Last Indicated Resolved Time COVID19 01/26/2021 01/26/2021 02/15/2021 4:55 AM CDT documented as of this encounter Care Teams Radiology Administrator Relationship Specialty Start Date End Date None Reported, Pcp PCP - General Family Medicine 01/25/2102/21 documented as of this encounter
--- OUTSIDE RECORDS SUMMARY | 2022-04-09 07:38 | XMS_ITS | Encounter Summary ---
:1965 Author Organization [facility] Address [address] [place] [address] Care Team Providers Name Role Phone None Reported, Pcp Primary Care Provider Unavailable Encounter Details Date Type Department Care Team Description 01/26/2021 Clinical Communication Department of [facility] Margaux Paris Therapy in [facility] [address] [facility] [address] [place] [phone] Social History Tobacco Use Types Packs/Day Years [...] Appointment Laboratory Medicine Osman Wesley M.D. 200 [place] [phone] (Wallace forrester) 04/09/2022 Hospital Encounter Pulmonary Medicine Mario Pitt M.D. 200 [place] [phone] (Wallace forrester) 04/09/2022 Appointment Cardiovascular Disease Yonas Wesley M.D. 200 [place] [phone] (Wallace forrester) 04/16/2022 Office Visit Endocrinology Wesley Rankin APRN, C.N.PLisa, D. N.P. [address] [place] [phone] (Wo rk) 05/23/2022 Office Visit Cardiovascular Disease Yonas Wesley M.D. [address] [place] [phone] (Wo rk) documented as of this encounter Visit Diagnoses Not on filedocumented in this encounter Additional Health Concerns Infection Onset Date Last Indicated Resolved Time COVID19 Pending 01/26/2021 01/26/2021 01/26/2021 12:29 PM CDT COVID19 01/26/2021 01/26/2021 02/15/2021 4:55 AM CDT documented as of this encounter Care Teams Church History Teacher Relationship Specialty Start Date End Date None Reported, Pcp PCP - General Family Medicine 01/25/2102/21 documented as of this encounter
--- OUTSIDE RECORDS SUMMARY | 2022-04-09 07:38 | XMS_ITS | Encounter Summary ---
:1965 Author Organization [facility] Address [address] [place] [address] Care Team Providers Name Role Phone None Reported, Pcp Primary Care Provider Unavailable Encounter Details Date Type Department Care Team Description 01/31/2021 Orders Only Division of Pulmonary Betty Laurent M.D. Medicine in [place], [facility] [address] [place], [place] [address] [facility] [address] [place] [address] [phone] Social History Tobacco Use Types Packs/Day Years [...] Appointment Laboratory Medicine Osman Wesley M.D. 200 [place] [phone] (Wallace forrester) 04/09/2022 Hospital Encounter Pulmonary Medicine Mario Pitt M.D. 200 [place] [phone] (Wallace forrester) 04/09/2022 Appointment Cardiovascular Disease Yonas Wesley M.D. 200 [place] [phone] (Wallace forrester) 04/16/2022 Office Visit Endocrinology Wesley Rankin APRN, C.N.P., D. N.P. [address] [place] [address] (Wo rk) 05/23/2022 Office Visit Cardiovascular Disease Yonas Wesley M.D. [address] [place] [address] (Wallace rk) documented as of this encounter Visit Diagnoses Not on filedocumented in this encounter Additional Health Concerns Infection Onset Date Last Indicated Resolved Time COVID19 01/26/2021 01/26/2021 02/15/2021 4:55 AM CDT documented as of this encounter Care Teams Contract Accountant Relationship Specialty Start Date End Date None Reported, Pcp PCP - General Family Medicine 01/25/2102/21 documented as of this encounter
--- OUTSIDE RECORDS SUMMARY | 2022-04-09 07:38 | XMS_ITS | Encounter Summary ---
:1965 Author Organization [facility] Address [address] [place] [address] Care Team Providers Name Role Phone Elsewhere, Pcp Primary Care Provider Unavailable Reason for Referral Outpatient (Routine) - Closed Specialty Diagnoses / Procedures Referred By Contact Refer red To Contact Diagnoses Effusion Pleural [facility] Procedures Thoracentesis Anita Nieves [address] [place] [phone] Referral ID Status Reason Start Date Expiration Date Visits Requ ested Visits Authorized [id number] Closed 01/31/2021 01/31/2022 1 1 RI/CAT/PET Scan (Routine) - Closed Specialty Diagnoses / Procedures Referred By Contact Refer red To Contact Radiology Diagnoses Dyspnea Multifactorial Effusion Pleural Garzanoam Camacho [facility] Procedures CT Chest with IV Contrast CT Chest without IV Contrast Anita Nieves [address] [place] [phone] Referral ID Status Reason Start Date Expiration Date Visits Requ ested Visits Authorized [id number] Closed 01/27/2021 01/27/2022 1 1 utpatient (Routine) - Closed Specialty Diagnoses / Procedures Referred By Referred To Contact Contact Cardiovascular Diseases / Diagnoses Diabetes Mellitus Type 2 Hyperglycemia (HCC) Dyspnea Multifactorial Effusion Pleural Greg Camacho [facility] Cardiovascular Disease Brenden Nieves M.D. 200 [place] [address] Referral ID Status Reason Start Date Expiration Date Visits Requ ested Visits Authorized [id number] Closed 01/27/2021 01/27/2022 1 1 Reason for Visit Outpatient (Routine) - Closed Specialty Diagnoses / Procedures Referred By Contact Refer red To Contact Pulmonary Medicine Diagnoses Diabetes Mellitus Type 2 Hyperglycemia (HCC) Dyspnea Multifactorial [facility] Anita [address] [place] [address] Referral ID Status Reason Start Date Expiration Date Visits V isits Requested Authorized [id number] Closed Specialty 01/25/2021 01/25/2022 1 1 Services Required Encounter Details Date Type Department Care Team Description 01/27/2021 Comprehensive Visit Division of Greg Effusion Pleural (Primary Dx); Pulmonary Medicine Doug, Diabetes Mellitus Type 2 Hyperglycemia (HCC); in [place], Brenden Nieves, Dyspnea Multif actorial [place] Anita 200 [facility] [address] [place] [phone] Social History Tobacco Use Types Packs/Day Years [...] or relatives? How often do you attend congregation or More than 4 times per year 02/09/2021 temple services? Do you belong to any clubs or Yes 02/09/2021 organizations such as congregation groups, unions, fraternal or athletic groups, or [...] He want to a physician back in [place] and he was offered a thoracentesis,which he [...] a week ago, where he had fevers [id number] degrees, nausea, and pain all over his [...] 5 years . He worked in the [employer] and has no occupational exposures except for [...] reviewed the case in detail with the customer service specialist. I agree with her plan. Briefly, this is a very complex situation. The patient was recently admitted to [facility] after he presented in our emergency room [...] was eventually successfully removed. While hospitalized at [facility] the patient was tested negative for COVID-19 including negative PCR negative antibody testing. When he was discharged she was starting to feel better. He continued to have some left-sided burningchest pain. However all of this was getting better. He subsequently developed significant systemic symptoms and fevers. This was after he returned back to [place]. His repeat evaluation demonstrated positivity for COVID-19 [...] had fevers. This prompted his return to [facility]. He was originally seen in the emergency [...] Laboratory Medicine Osman Wesley M.D. [address] [place] [phone] (Wallace forrester) 04/09/2022 Hospital Encounter Pulmonary Medicine Mario Pitt M.D. [address] [place] [phone] (Wallace forrester) 04/09/2022 Appointment Cardiovascular Disease Yonas Wesley M.D. [address] [place] [phone] (Wallace forrester) 04/16/2022 Office Visit Endocrinology Wesley Rankin APRN, C.N.P., D. N.P. [address] [place] [phone] (Wo rk) 05/23/2022 Office Visit Cardiovascular Disease Yonas Wesley M.D. 200 [place] [phone] (Wo rk) Scheduled Orders Name Type Priority Associated Diagnoses Order S chedule Thoracentesis Procedures Routine Effusion Pleural Expected: 02/06/2021 (Approximate), Expires: 02/01/2024 Scheduled Referrals Name Type Priority Associated Diagnoses Order S chedule Cardiovascular Disease Outpatient Routine Diabetes Mellitus Expected: - General cardiology Referral Type 2 Hyperglycemia 01/27/2021 consult (clinic) ([facility]) (Approximate), Dyspnea Expires: Multifactorial 01/28/2024 Effusion Pleural documented as of this encounter Procedures Procedure Name Priority Date/Time Associated Diagnosis Comme nts CYTOLOGY NON-CAR PARK ATTENDANT Routine 02/06/2021 5:34 PM Effusion Pleural R esults for this CDT procedure are i n the results section. documented in this encounter Results Cytology Non-CAR PARK ATTENDANT (02/06/2021 5:34 PM CDT) Component Value Ref Test Analysis Performed At [facility] Range Method Time Signature 02/09/2021 DTL 11:30 AM CDT Report Carroll Ramirez.B.S. [id number] 02/09/2021 DTL electronically 11:30 AM signed by [...] attachment that is no t available. Brenden Camacho M.D. LAB SURG PATH ORDERAB LES Performing Organization Address City/State/ZIP Code Phon e Number [facility] - [address] [place], [place] [address] [facility] [place] [address] Laboratories-[facility] [address] Chest [...] EXAM: CT CHEST WITH IV CONTRAST COMPARISON: [facility] examination from 11/28/2020. FINDINGS: In the interval [...] EXAM: CT CHEST WITH IV CONTRAST COMPARISON: [facility] examination from 11/28/2020. FINDINGS: In the interval [...] clearing of probabl e parenchymal hemorrhage. Brenden MÉNDEZ CT PROCEDURES documented in this encounter Visit Diagnoses Diagnosis Effusion Pleural - Primary Diabetes Mellitus Type 2 Hyperglycemia ( HCC) Dyspnea Multifactorial Dyspnea Multifactorial Effusion Pleural documented in this encounter Additional Health Concerns Infection Onset Date Last Indicated Resolved Time COVID19 01/26/2021 01/26/2021 02/15/2021 4:55 AM CDT documented as of this encounter Care Teams Crew Dispatcher Relationship Specialty Start Date End Date Elsewhere, Pcp PCP - General 02/22/21 documented as of this encounter
--- OUTSIDE RECORDS SUMMARY | 2022-04-09 07:38 | XMS_ITS | Encounter Summary ---
:1965 Author Organization [facility] Address [address] [place] [address] Care Team Providers Name Role Phone None Reported, Pcp Primary Care Provider Unavailable Reason for Visit Reason Comments Pre-visit Testing Orders Encounter Details Date Type Department Care Team Description 01/25/2021 Clinical Communication RST NADINE Hercules, Pre-visit Testing [address] [facility] Anita Graff Orders [place], [place] [address] [facility] [address] [place] [address] Social History Tobacco Use Types Packs/Day Years [...] Appointment Laboratory Medicine Osman Wesley M.D. 200 [place] [phone] (Wallace forrester) 04/09/2022 Hospital Encounter Pulmonary Medicine Mario Pitt M.D. [address] [place] [phone] (Wallace forrester) 04/09/2022 Appointment Cardiovascular Disease Yonas Wesley M.D. 200 [place] [phone] (Wallace forrester) 04/16/2022 Office Visit Endocrinology Wesley Rankin APRN, C.N.P., D. N.P. [address] [place] [phone] (Wo rk) 05/23/2022 Office Visit Cardiovascular Disease Yonas Wesley M.D. [address] [place] [address] (Wo rk) documented as of this encounter Results (ABNORMAL) SARS CoV-2 RNA, PCR, Varies Asymptomatic (01/26/2021 7:08 AM CDT) [facility] Method Time Signature SARS CoV-2 Swab, 01/26/2021 DTL RNA, PCR, Nasopharynx 12:29 PM Source CDT SARS CoV-2 Detected (A) Undetected 01/26/2021 DTL RNA, PCR 12:29 PM CDT Comment: SARS-CoV-2 RNA present. ----ADDITIONAL INFORMATION---- This RT-PCR test has received Emergency Use Authorization (EUA) by the U.S. Food and Drug Administration an d is used per beaver trapper's instructions. Performance characteristics were verified by [facility] in a manner consistent with CLIA requirements. Visit the CDC website: https://www.cdc.g ov/coronavirus/ for the most recent guidelines on Coron avirus testing. Fact Sheet for Healthcare Providers: https://www.fda.gov/media/336307/downloa d Fact Sheet for Patients: https://www.fda.gov/media/107663/downloa d Specimen Anatomical Collection Method Collection Time Receive d Time (Source) Location / / Volume Laterality Varies 01/26/2021 7:08 AM 7:44 (Nasopharynx) CDT AM CDT Dajuan Hercules M.D. LAB MICROBIOLOGY - GENERAL O RDERABLES Performing Organization Address City/State/ZIP Code Phon e Number [facility] - [address] [place] [address] [facility] [place] [address] Laboratories-[facility] 200 [facility] documented in this encounter Visit Diagnoses Diagnosis Diabetes Mellitus Type 2 Hyperglycemia ( HCC) - Primary Dyspnea documented in this encounter Care Teams Metallography Teacher Relationship Specialty Start Date End Date None Reported, Pcp PCP - General Family Medicine 01/25/2102/21 documented as of this encounter
--- OUTSIDE RECORDS SUMMARY | 2022-04-09 07:38 | XMS_ITS | Encounter Summary ---
:1965 Author Organization [facility] Address [address] [place] [address] Care Team Providers Name Role Phone None [...] Appointment Laboratory Medicine Osman Wesley M.D. 200 [place] [phone] ( mitzy) 04/09/2022 Hospital Encounter Pulmonary Medicine Mario Pitt M.D. [address] [place] [phone] ( mitzy) 04/09/2022 Appointment Cardiovascular Disease Yonas Wesley M.D. [address] [place] [phone] ( mitzy) 04/16/2022 Office Visit Endocrinology Wesley Rankin APRN, C.N.P., D. N.P. [address] [place] [phone] ( mitzy) 05/23/2022 Office Visit Cardiovascular Disease Yonas Wesley M.D. [address] [place] [phone] (Wo rk) documented as of this encounter [...] documented as of this encounter Care Teams Flow Coordinator Relationship Specialty Start Date End Date None Reported, Pcp PCP - General Family Medicine 01/25/2102/21 documented as of this encounter
--- OUTSIDE RECORDS SUMMARY | 2022-04-09 07:38 | XMS_ITS | Encounter Summary ---
:1965 Author Organization [facility] Address [address] [place] [address] Care Team Providers Name Role Phone None Reported, Pcp Primary Care Provider Unavailable Reason for Referral Outpatient (Routine) - Closed Specialty Diagnoses / Procedures Referred By Contact Refer red To Contact Cardiovascular Disease Osman Wesley M .D. [facility] [address] [place] [phone] Referral ID Status Reason Start Date Expiration Date Visits Requ ested Visits Authorized [id number] Closed 02/14/2021 02/14/2022 [address] Wesley utpatient (Routine) - Closed Specialty Diagnoses / Procedures Referred By Contact Refer red To Contact Diagnoses Failure Heart (HCC) Osman Wesley M.D. [facility] Procedures Echo Transthoracic (TTE) [address] [place] [phone] Referral ID Status Reason Start Date Expiration Date Visits Requ ested Visits Authorized [id number] Closed 02/09/2021 02/09/2022 1 1 utpatient (Routine) - Closed Specialty Diagnoses / Procedures Referred By Contact Refer red To Contact Cardiovascular Disease Osman Wesley M .D. [facility] [address] [place] [address] Referral ID Status Reason Start Date Expiration Date Visits Requ ested Visits Authorized [id number] Closed 02/09/2021 02/09/2022 1 1 Scheduling Instructions 3 month follow up after ECHO in resident clinic RI/CAT/PET Scan (Routine) - Closed Specialty Diagnoses / Procedures Referred By Contact Refer red To Contact Radiology Diagnoses Failure Heart ([facility]) Osman Wesley M.D. [facility] Procedures MR Cardiac without and with IV Contrast 200 [place] [address] Referral ID Status Reason Start Date Expiration Date Visits Requ ested Visits Authorized [id number] Closed 02/09/2021 02/09/2022 1 1 Reason for Visit Outpatient (Routine) - Closed Specialty Diagnoses / Procedures Referred By Referred To Contact Contact Cardiovascular Diseases / Diagnoses Diabetes Mellitus Type 2 Hyperglycemia ([facility]) Dyspnea Multifactorial Effusion Pleural [facility] Cardiovascular Disease Zahraa Nieves M.D. 200 [place] [address] Referral ID Status Reason Start Date Expiration Date Visits Requ ested Visits Authorized [id number] Closed 01/27/2021 01/27/2022 1 1 Encounter Details Date Type Department Care Team Description 02/09/2021 Comprehensive Visit Department of [facility] [place] Zahraa Lopez M.D. 200 [place] [address] Atherosclerotic Heart Disease [place] Cor onary Artery With Other Forms Angina Pectoris (Stable Angina/Angina Of Exertion) ([facility]) (Primary Dx); Cardiovascular Kimi Fournier M.D. [address] [place] [phone] Diabetes Mellitus Type 2 Hyperglycemia ( HCC); Medicine in Dyspnea Multifa ctorial; [place], [place] Effusion Pleural; [address] [facility] Failure Heart ([facility]) [place] [address] Social History Tobacco Use Types [...] that he had initially returned back to [place] after his hospital stay in [place]. However he developed fevers and other systemic symptoms after returning back to [place] and was diagnosed with COVID-19 (his COVID-19 testing was negative while he was hospitalized here at [place]). He underwent monoclonal antibody infusion and repeat CT of the chest obtained back in [place] showed a worsening left-sided pleural effusion. Given his worsening symptoms he returned back to [place] and presented to the ED at which [...] rehab after his heart attack back in [place]. He reports significant functional decline and concerns [...] top. He has no trouble walking around [facility]. He avoids laying flat as he [...] Angiography; Surgeon: Raphael [place] M.B., B.Ch.; Location: [facility] CCL ??? 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 [address] [place] [phone] (Wallace forrester) 04/09/2022 Hospital Encounter Pulmonary Medicine Mario Pitt M.D. 200 [place] [phone] (Wallace forrester) 04/09/2022 Appointment Cardiovascular Disease Yonas Wesley M.D. [address] [place] [address] (Wallace forrester) 04/16/2022 Office Visit Endocrinology Wesley Rankin APRN, C.N.P., D. N.P. 200 [place] [phone] (Wallace rk) 05/23/2022 Office Visit Cardiovascular Disease Yonas Wesley M.D. 200 [place] [address] (Wallace forrester) Scheduled Referrals Name Type Priority Associated Order Schedule Diagnoses Cardiovascular Disease Outpatient Referral Routine Expected: office visit (clinic) 2021, Expires: 02/10/2024 Cardiovascular Disease Outpatient Referral Routine Expected: office visit (clinic) 2020 (Approximate), Expires: 02/15/2024 documented as of this encounter Results (TTE) 2D LIMITED WITH COLOR , DOPPLER AND CONTRAST (05/15/2021 1:20 PM BED LABORER) P athologist Signature Ejection 42 MC CV [...] / / Volume Laterality 05/15/2021 12:18 PM BED LABORER Impressions 05/15/2021 8:25 PM BED LABORER Echocardiogram performed per left ventricular function protocol. [...] Echocardiography Contrast Administration Protocol Referen ce Document [id number]. Patient met an inclusion criterion and did not have contraindicat ions in screening sections. For the complete report, see the [employer] Documents. Narrative 05/15/2021 8:25 PM BED LABORER For the complete report, see the [employer] Documents. Final Impressions 1. Moderately enlarged left [...] Echocardiography Contrast Administration Protocol Referen ce Document [id number]. Patient met an inclusion criterion and did [...] encounter Visit Diagnoses Diagnosis Atherosclerotic Heart Disease [place] Cor onary Artery With Other Forms Angina Pectoris (Stable Angina/Angina Of Exertion) (HCC) - Primary Diabetes Mellitus Type 2 Hyperglycemia ( HCC) Dyspnea Multifactorial Effusion Pleural Failure Heart (HCC) Failure Heart (HCC) Failure Heart (HCC) documented in this encounter Additional Health Concerns Infection Onset Date Last Indicated Resolved Time COVID19 01/26/2021 01/26/2021 02/15/2021 4:55 AM CDT documented as of this encounter Care Teams Heat Treater Apprentice Relationship Specialty Start Date End Date None Reported, Pcp PCP - General Family Medicine 01/25/2102/21 documented as of this encounter
--- OUTSIDE RECORDS SUMMARY | 2022-04-09 07:38 | XMS_ITS | Encounter Summary ---
:1965 Author Organization [facility] Address [address] [place] [address] Care Team Providers Name Role Phone None Reported, Pcp Primary Care Provider Unavailable Reason for Visit Reason Comments Communication Encounter Details Date Type Department Care Team Description 02/02/2021 Clinical Communication Division of [facility] Kandis Mae Internal Medicine, Phuong Hawley M.D [place], [place] [address] [place] [address] [place] [phone] [place], [place] [phone] (Work) [phone] Social History Tobacco Use Types Packs/Day Years [...] AM CDT Caller: Anais (pharmacist) Callback Number: [phone] Request/Details: [facility] faxed a CMN for you to fill out and return for this patient's test strips. Please call the pharmacy with any questions. Thank you. documented in this encounter Plan of Treatment Upcoming Encounters Date Type Specialty Care Team Description 04/09/2022 Appointment Laboratory Medicine Osman Wesley M.D. [address] [place] [address] [place] [phone] (Wo rk) 04/09/2022 Hospital Encounter Pulmonary Medicine Mario Pitt M.D. [address] [place] [phone] (Wo rk) 04/09/2022 Appointment Cardiovascular Disease Yonas Wesley M.D. [address] [place] [phone] (Wo rk) 04/16/2022 Office Visit Endocrinology Wesley Rankin APRN, C.N.P., D. N.P. [address] [place] [phone] (Wo rk) 05/23/2022 Office Visit Cardiovascular Disease Yonas Wesley M.D. [address] [place] [phone] (Wo rk) documented as of this encounter Visit Diagnoses Not on filedocumented in this encounter Additional Health Concerns Infection Onset Date Last Indicated Resolved Time COVID19 01/26/2021 01/26/2021 02/15/2021 4:55 AM CDT documented as of this encounter Care Teams Tipple Oiler Relationship Specialty Start Date End Date None Reported, Pcp PCP - General Family Medicine 01/25/2102/21 documented as of this encounter
--- OUTSIDE RECORDS SUMMARY | 2022-04-09 07:38 | XMS_ITS | Encounter Summary ---
:1965 Author Organization [facility] Address [address] [place] [address] Care Team Providers Name Role Phone None Reported, Pcp Primary Care Provider Unavailable Reason for Referral Outpatient (Routine) - Closed Specialty Diagnoses / Procedures Referred By Contact Refer red To Contact Diagnoses Pneumothorax Unspecified Hypertension Essential Primary Atherosclerotic Heart Disease [place] Coronary Artery With Other Forms Angina Pectoris (Stable Angina/Angina Of Exertion) (HCC) Diabetes Mellitus Type 2 Hyperglycemia (HCC) [facility] ([facility]) Colt SMALL.N.Roger., M.S.N. Procedures Echo Transthoracic (TTE) [address] [place], [place] [address] Referral ID Status Reason Start Date Expiration Date Visits Requ ested Visits Authorized [id number] Closed 02/03/2021 02/03/2022 1 1 Reason for Visit Outpatient (Routine) - Closed Specialty Diagnoses / Procedures Referred By Contact Refer red To Contact Diagnoses Pneumothorax Unspecified Hypertension Essential Primary Atherosclerotic Heart Disease [place] Coronary Artery With Other Forms Angina Pectoris (Stable Angina/Angina Of Exertion) ([facility]) Diabetes Mellitus Type 2 Hyperglycemia (HCC) [facility] ([facility]) Colt SMALL.N.P., M.S.N. Procedures Echo Transthoracic (TTE) [address] [place] [address] Referral ID Status Reason Start Date Expiration Date Visits Requ ested Visits Authorized [id number] Closed 02/03/2021 02/03/2022 1 1 Encounter Details Date Type Department Care Team Description 02/07/2021 Hospital Department of Michele Summer U nspecified; Encounter Cardiovascular Erica S, Hypertension Essential Primary; Diseases in FITTING SUPERVISOR, C.N.P., Atheroscleroti c Heart Disease [place] Coronary Artery With Other Forms Angina Pectoris (Stable Angina/Angina Of Exertion) ([facility]); [place], [place] M.S.N. Diabetes Mellitus Type 2 Hyperglycemia ( [facility]); [address] Failure Heart ([facility]) [place] [id number] [phone] Social History Tobacco Use Types Packs/Day Years [...] Laboratory Medicine Osman Wesley M.D. [address] [place] [address] (Wo rk) 04/09/2022 Hospital Encounter Pulmonary Medicine Mario Pitt M.D. [address] [place] [address] (Wo rk) 04/09/2022 Appointment Cardiovascular Disease Yonas Wesley M.D. [address] [place] [phone] (Wo rk) 04/16/2022 Office Visit Endocrinology Wseley Rankin APRN, C.N.P., D. N.P. [address] [place] [phone] (Wo rk) 05/23/2022 Office Visit Cardiovascular Disease Yonas Wesley M.D. [address] [place] [phone] (Wlalace forrester) documented as of this encounter Procedures Procedure Name Priority Date/Time Associated Diagnosis Comme nts (TTE) 2D LIMITED Routine 02/07/2021 4:24 PM Pneumothorax Resul ts for this WITH COLOR AND CDT Unspecified procedure are in DOPPLER Hypertension Essential the r esults Primary section. Atherosclerotic Heart Disease [place] Coronary Artery With Other Forms Angina Pectoris [...] was performed but not reported based on shuttle van driver's judgment. ??RIGHT VENTRICLE: ??Normal ri ght ventricular [...] effusion. For the complete report, see the [employer] Documents. Narrative 02/07/2021 4:39 PM CDT For the complete report, see the [employer] Documents. Final Impressions 1. Moderate-severely enlarged [...] was performed but not reported based on shuttle van driver's judgment. RIGHT VENTRICLE: Normal right ventricular chamber [...] Unspecified Hypertension Essential Primary Atherosclerotic Heart Disease [place] Cor onary Artery With Other Forms Angina Pectoris (Stable Angina/Angina Of Exertion) (HCC) Diabetes Mellitus Type 2 Hyperglycemia ( HCC) Failure Heart (HCC) documented in this encounter Additional Health Concerns Infection Onset Date Last Indicated Resolved Time COVID19 01/26/2021 01/26/2021 02/15/2021 4:55 AM CDT documented as of this encounter Care Teams Merchandise Pickup/Receiving Associate Relationship Specialty Start Date End Date None Reported, Pcp PCP - General Family Medicine 01/25/2102/21 documented as of this encounter
--- OUTSIDE RECORDS SUMMARY | 2022-04-09 07:38 | XMS_ITS | Encounter Summary ---
:1965 Author Organization [facility] Address [address] [place] [address] Care Team Providers Name Role Phone None Reported, Pcp Primary Care Provider Unavailable Reason for Referral MRI/CAT/PET Scan (Routine) - Closed Specialty Diagnoses / Procedures Referred By Contact Refer red To Contact Radiology Diagnoses Dyspnea Multifactorial Effusion Pleural Garzaulysses Camacho [facility] Procedures CT Chest with IV Contrast CT Chest without IV Contrast Anita Nieves [address] [place] [address] Referral ID Status Reason Start Date Expiration Date Visits Requ ested Visits Authorized [id number] Closed 01/27/2021 01/27/2022 1 1 Reason for Visit MRI/CAT/PET Scan (Routine) - Closed Specialty Diagnoses / Procedures Referred By Contact Refer red To Contact Radiology Diagnoses Dyspnea Multifactorial Effusion Pleural Greg Camacho [facility] Procedures CT Chest with IV Contrast CT Chest without IV Contrast Anita Nieves [address] [place] [address] Referral ID Status Reason Start Date Expiration Date Visits Requ ested Visits Authorized [id number] Closed 01/27/2021 01/27/2022 1 1 Encounter Details Date Type Department Care Team Description 01/29/2021 Hospital Encounter Department of Amelia Rodriguez pnea Multifactorial; Radiology, Daniel Tran Effusion Pleural Building, in 200 [facility] [address] [place], [place] (Work) [phone] [phone] Social History Tobacco Use Types Packs/Day Years [...] directed for 1 each 0 2020 [facility] diabetes control. blood-glucose meter Test as directed [...] Appointment Laboratory Medicine Osman Wesley M.D. [address] [place] [address] (Wo rk) 04/09/2022 Hospital Encounter Pulmonary Medicine Mario Pitt M.D. [address] [place] [address] (Wo rk) 04/09/2022 Appointment Cardiovascular Disease Yonas Wesley M.D. [address] [place] [phone] (Wo rk) 04/16/2022 Office Visit Endocrinology Wesley Rankin APRN C.N.PLisa, D. N.P. [address] [place] [phone] (Wo rk) 05/23/2022 Office Visit Cardiovascular Disease Yonas Wesley M.D. [address] [place] [phone] (Wo rk) documented as of this encounter [...] EXAM: CT CHEST WITH IV CONTRAST COMPARISON: [facility] examination from 11/28/2020. FINDINGS: In the interval [...] EXAM: CT CHEST WITH IV CONTRAST COMPARISON: [facility] examination from 11/28/2020. FINDINGS: In the interval [...] documented as of this encounter Care Teams Potato Inspector Relationship Specialty Start Date End Date None Reported, Pcp PCP - General Family Medicine 01/25/2102/21 documented as of this encounter
--- OUTSIDE RECORDS SUMMARY | 2022-04-09 07:38 | XMS_ITS | Encounter Summary ---
:1965 Author Organization [facility] Address [address] [place] [address] Care Team Providers Name Role Phone None Reported, Pcp Primary Care Provider Unavailable Reason for Referral Outpatient (Routine) - Closed Specialty Diagnoses / Procedures Referred By Contact Refer red To Contact Pulmonary Medicine Diagnoses Diabetes Mellitus Type 2 Hyperglycemia (HCC) Dyspnea Multifactorial Dajuan Hercules [facility] Anita [address] [place] [address] Referral ID Status Reason Start Date Expiration Date Visits V isits Requested Authorized [id number] Closed Specialty 01/25/2021 01/25/2022 1 1 Services Required Reason for Visit Reason Comments Pre-visit Testing Orders Encounter Details Date Type Department Care Team Description 01/25/2021 Clinical Communication RST ANDINE Hercules, Pre-visit Testing [address] [facility] Anita Graff Orders [place], [place] [address] [facility] [address] [place] [address] Social History Tobacco Use Types Packs/Day Years [...] or relatives? How often do you attend yarsanism or More than 4 times per year 02/09/2021 confucianism services? Do you belong to any clubs or Yes 02/09/2021 organizations such as yarsanism groups, unions, fraternal or athletic groups, or [...] Appointment Laboratory Medicine Osman Wesley M.D. [address] [place] [address] [phone] (Wo rk) 04/09/2022 Hospital Encounter Pulmonary Medicine Mario Pitt M.D. [address] [place] [address] [phone] (Wo rk) 04/09/2022 Appointment Cardiovascular Disease Yonas Wesley M.D. [address] [place] [address] [phone] (Wo rk) 04/16/2022 Office Visit Endocrinology Wesley Rankin APRN, C.N.P., D. N.P. [address] [place] [address] [phone] (Wo rk) 05/23/2022 Office Visit Cardiovascular Disease Yonas Wesley M.D. [address] [place] [address] [phone] (Wo rk) Scheduled Referrals Name Type Priority Associated Diagnoses Order S [facility] Pulmonary Medicine Outpatient Referral Routine Diabetes [facility] Type Expected: - General consult 2 Hyperglycemi a (HCC) 01/25/2021 (clinic) Dyspnea Multifactorial (Appr oximate), Expires: 01/26/2024 documented as of this encounter Visit Diagnoses Diagnosis Diabetes Mellitus Type 2 Hyperglycemia ( HCC) - Primary Dyspnea Multifactorial documented in this encounter Care Teams Annealer Relationship Specialty Start Date End Date None Reported, Pcp PCP - General Family Medicine 01/25/2102/21 documented as of this encounter
--- OUTSIDE RECORDS SUMMARY | 2022-04-09 07:38 | XMS_ITS | Encounter Summary ---
:1965 Author Organization [facility] Address [address] [place] [address] Care Team Providers Name Role Phone None Reported, Pcp Primary Care Provider Unavailable Encounter Details Date Type Department Care Team Description 02/07/2021 Hospital Encounter Department of Beata Rodriguez Pleural Laboratory Medicine Zahraa Nieves M.D. and Pathology, [address] [place] [address] in [place], [place] [address] [place] [address] [place], [place] (Work) [phone] Social History Tobacco Use Types Packs/Day Years [...] as directed for 1 each 0 2020 [facility] diabetes control. blood-glucose [...] Laboratory Medicine Osman Wesley M.D. [address] [place] [phone] (Wo rk) 04/09/2022 Hospital Encounter Pulmonary Medicine Mario Pitt M.D. [address] [place] [address] [phone] (Wo rk) 04/09/2022 Appointment Cardiovascular Disease Yonas Wesley M.D. [address] [place] [address] [phone] (Wo rk) 04/16/2022 Office Visit Endocrinology Wesley Rankin APRN, C.N.P., D. N.P. [address] [place] [address] [phone] (Wo rk) 05/23/2022 Office Visit Cardiovascular Disease Yonas Wesley M.D. [address] [place] [address] [phone] (Wo rk) documented as of this encounter [...] M.D. LAB BLOOD ADD-ON Performing Organization Address City/[facility] Code Phon e Number [facility] - [address] [place], [place] [address] [place] [address] Laboratories-[facility] [address] [facility] LD (Lactate Dehydrogenase) (02/07/2021 12:42 PM [...] LAB BLOOD NON ADD-ON Performing Organization Address City/[facility] Phon e Number [facility] - [address] [place], [place] [address] [place] [address] [address] documented in this encounter Visit Diagnoses Diagnosis Effusion Pleural documented in this encounter Additional Health Concerns Infection Onset Date Last Indicated Resolved Time COVID19 01/26/2021 01/26/2021 02/15/2021 4:55 AM CDT documented as of this encounter Care Teams Aquatics Coordinator Relationship Specialty Start Date End Date None Reported, Pcp PCP - General Family Medicine 01/25/2102/21 documented as of this encounter
--- OUTSIDE RECORDS SUMMARY | 2022-04-09 07:38 | XMS_ITS | Encounter Summary ---
:1965 Author Organization [facility] Address [address] [place] [address] Care Team Providers Name Role Phone None Reported, Pcp Primary Care Provider Unavailable Encounter Details Date Type Department Care Team Description 01/31/2021 Documentation Division of Pulmonary Greg Camacho, Medicine in [place], Brenden Nieves M.D. [place] [address] [facility] [address] [place] [phone] [phone] (Wo rk) Social History Tobacco Use Types [...] Appointment Laboratory Medicine Osman Wesley M.D. [address] [place] [address] [phone] (Wo mitzy) 04/09/2022 Hospital Encounter Pulmonary Medicine Mario Pitt M.D. [address] [place] [phone] (Wo rk) 04/09/2022 Appointment Cardiovascular Disease Yonas Wesley M.D. [address] [place] [phone] (Wo mitzy) 04/16/2022 Office Visit Endocrinology Wesley Rankin APRN C.N.P., D. N.P. [address] [place] [address] [phone] (Wo rk) 05/23/2022 Office Visit Cardiovascular Disease Yonas Wesley M.D. [address] [place] [phone] (Wallace forrester) documented as of this encounter Results Protein, Total (02/07/2021 12:42 PM CDT) P athologist Signature Protein, Total, 6.9 6.3 - 7.9 02/07/2021 DTL S g/dL 1:54 PM CDT Specimen Anatomical Collection Method Collection Time Receive d Time (Source) Location / / Volume Laterality Blood (Blood, 02/07/2021 12:42 02/07/2021 1:35 Venous) PM CDT PM CDT Brenden Camacho M.D. LAB BLOOD ADD-ON Performing Organization Address City/[facility] Phon e Number [facility] - 200 [place], [place] [address] [place] [address] [address] LD (Lactate Dehydrogenase) (02/07/2021 12:42 PM [...] LAB BLOOD NON ADD-ON Performing Organization Address City/[facility] Phon e Number [facility] - [address] [place] [address] [place] [address] Laboratories-[address] documented in this encounter Visit Diagnoses Diagnosis Effusion Pleural - Primary documented in this encounter Additional Health Concerns Infection Onset Date Last Indicated Resolved Time COVID19 01/26/2021 01/26/2021 02/15/2021 4:55 AM CDT documented as of this encounter Care Teams Ornamental Metal Erector Apprentice Relationship Specialty Start Date End Date None Reported, Pcp PCP - General Family Medicine 01/25/2102/21 documented as of this encounter
--- OUTSIDE RECORDS SUMMARY | 2022-04-09 07:38 | XMS_ITS | Encounter Summary ---
:1965 Author Organization [facility] Address [address] [place] [phone] Care Team Providers Name Role Phone None Reported, Pcp Primary Care Provider Unavailable Reason for Referral Outpatient (Routine) - Closed Specialty Diagnoses / Procedures Referred By Contact Refer red To Contact Diagnoses Effusion Pleural Zahraa Rodriguez [facility] Procedures Thoracentesis Anita Nieves 200 [place], [place] [phone] Referral ID Status Reason Start Date Expiration Date Visits Requ ested Visits Authorized [id number] Closed 01/31/2021 01/31/2022 1 1 Reason for Visit Outpatient (Routine) - Closed Specialty Diagnoses / Procedures Referred By Contact Refer red To Contact Diagnoses Effusion [facility]ural [facility] Thoracentesis Anita Nieves [place], [place] [address] Referral ID Status Reason Start Date Expiration Date Visits Requ ested Visits Authorized [id number] Closed 01/31/2021 01/31/2022 1 1 Encounter Details Date Type Department Care Team Description 02/06/2021 Hospital Encounter Division of Pulmonary Isidro Laurent , Effusion Pleural Medicine in [facility] 200 [facility] [address] [place] [phone] Social History Tobacco Use Types Packs/Day Years [...] More than 4 times per year 02/09/2021 hoahaoism services? Do you belong to any clubs [...] or slept in a prison (including now)? Sex Assigned at Date Recorded [...] as directed for 1 each 0 2020 [facility] diabetes control. blood-glucose [...] position: sitting Location: left posterior Puncture method: ruzm-ahe-smetka catheter Number of attempts: 1 Drainage characteristics: [...] needle was removed and a 5.0 Fr [employer] catheter was advanced along the anesthetized track [...] or fellow participated in the procedure. The excellence consultant was present for the critical portion of the procedure and was immediately available for the entire procedure. documented in this encounter Plan of Treatment Upcoming Encounters Date Type Specialty Care Team Description 04/09/2022 Appointment Laboratory Medicine Osman Wesley M.D. 200 [place] [address] (Wo rk) 04/09/2022 Hospital Encounter Pulmonary Medicine Mario Pitt M.D. 200 [place] [address] (Wo rk) 04/09/2022 Appointment Cardiovascular Disease Yonas Wesley M.D. [address] [place] [phone] (Wo rk) 04/16/2022 Office Visit Endocrinology Wesley Rankin APRN, C.N.P., D. N.P. [address] [place] [phone] (Wo rk) 05/23/2022 Office Visit Cardiovascular Disease Yonas Wesley M.D. 200 [place] [phone] (Wo rk) Scheduled Orders Name Type Priority [...] position: sitting Location: left posterior Puncture method: lqmj-zyp-dhuwrl cathete r Number of attempts: 1 Drainage [...] or fellow participated in the procedure. The excellence consultant was present for the critical portion [...] ical findings. All other fluids refer to [email or web address].com for further inter pretive information. This test has been modified from the airport representative's instructions. Its perform ance characteristics were determined by [facility] in a manner consistent with CLIA require ments. This test has not been cleared or approv ed by the U.S. Food and Drug Administration. Fluid Type, Protein, Total Fluid, Pleural Fluid, 1 3:37 PM CDT DTL Left Specimen Anatomical Collection Method Collection Time Receive d Time (Source) Location / / Volume Laterality Fluid (Pleural 02/06/2021 2:59 PM 2 021 3:53 Fluid, Left) CDT PM CDT Zahraafredis Camacho M.D. LAB BODY FLUIDS AND S TOOLS ORDERABLES Performing Organization Address City/State/ZIP Code Phon e Number [facility] - [address] [place], [place] [address] [facility] [place] [address] [facility] [address] Lactate Dehydrogenase (LD), Body Fluid (02/06/2021 2:59 PM CDT) Patholo gist Method Time Signature Lactate 298 See Comment [...] clinical findings. All other fluids refer to [email or web address].com [email or web address].com for further interpretive information. This test has been modified from the man ufacturer's instructions. Its performance characteristics were det ermined by [facility] in a manner consistent with CLIA [...] Address City/State/ZIP Code Phon e Number [facility] - [address] [place] [address] [facility] [place] [address] [facility] [address] [facility] Gram Stain (02/06/2021 2:59 PM CDT) Patholo gist Method Time Signature Gram Stain No organisms seen. 02/06/2021 DTL White blood cells, Moderate. 6:12 PM CDT Specimen Anatomical Collection Method Collection Time Receive d Time (Source) Location / / Volume Laterality Fluid (Pleural 02/06/2021 2:59 PM 021 4:16 Fluid, Left) CDT PM CDT Comment: Specimen Source Site: Fluid Narrative [facility] - [facility] - 02/06/2021 6:12 PM CDT Bacterial Culture: Received Bactec anaerobic bottle Bacterial Culture: Placed in Bactec aero bic bottle Zahraa Lizbeth Camacho M.D. LAB MICROBIOLOGY - GE NERAL ORDERABLES Performing Organization Address City/[facility]/ZIP Code Phon e Number [facility] - [id number] [place] [address] Glucose, Body Fluid (02/06/2021 2:59 PM CDT) athologist Signature Glucose, BF 123 See Comment [...] of infection. All other fluids refer to www.[facility].com for further inter pretive information. This test has been modified from the melanie meléndezr's instructions. Its performance characteri stics were determined by [facility] in a manner co nsistent with CLIA requirements. This test has not been leah ared or approved by the U.S. Food and Drug Administration. Fluid Type, Glucose Fluid, Pleural Fluid, Left 02/2021 3:37 PM CDT DT Specimen Anatomical Collection Method Collection Time Receive d Time (Source) Location / / Volume Laterality Fluid (Pleural 02/06/2021 2:59 PM 021 3:53 Fluid, Left) CDT PM CDT Zahraa Camacho M.D. LAB BODY FLUIDS AND S TOOLS ORDERABLES Performing Organization Address [facility] Phon e Number [facility] - [address] [place], [place] [address] [place] [address] [facility] [address] [facility] Cell Count and Differential, Body Fluid (02/06/2021 2:59 PM CDT) [facility] Method Time Signature Fluid Type Left Pleural [...] characteri stics were determined by [facility] in a manner co nsistent with [...] Cells 3 % 02/06/2021 5:20 PM CDT DHPM Comment: ----REFERENCE VALUE---- The reference range and other method performance specifications have not been established for this bodyfluid. The test result must be integrated into the clinical context for interpretation. Other Cells Are: Mesothelial cells 02/07/2021 8:36 AM CDT DHPM Comment No blasts or malignant cells seen. 02/07 8:36 AM CDT DHPM Reviewed by: Chrissy 02/07/2021 8:36 AM CDT DHPM Specimen Anatomical Collection Method Collection Time Receive d Time (Source) Location / / Volume Laterality Fluid (Pleural 02/06/2021 2:59 PM 021 3:49 Fluid, Left) CDT PM CDT Zahraa Lizbeth Camacho M.D. LAB BODY FLUIDS AND S TOOLS ORDERABLES Performing Organization Address City/[facility]/ZIP Code Phon e Number [facility] - 200 [place], [place] [address] [place] [address] [facility] 200 [facility] Bacterial Culture, Aerobic + Susc (02/06/2021 2:59 PM CDT) [facility] Method Time Signature Bacterial No growth 02/11/2021 DT Culture, after 5 2:26 PM CDT Aerobic + Susc days of incubation. Specimen Anatomical Collection Method Collection Time Receive d Time (Source) Location / / Volume Laterality Fluid (Pleural 02/06/2021 2:59 PM 021 4:16 Fluid, Left) CDT PM CDT Comment: Specimen Source Site: Fluid Narrative [facility] - 02/11/2021 2:26 PM CDT Bacterial Culture: Received Bactec anaerobic bottle Bacterial Culture: Placed in Bactec aero bic bottle Zahraa Lizbeth Camacho M.D. LAB MICROBIOLOGY - GE NERAL ORDERABLES Performing Organization Address [facility]/ZIP [facility] Phon e Number [facility] - [address] [address] [facility]-[address] pH, Pleural Fluid (02/06/2021 2:52 PM CDT) [facility] Method Time Signature pH, Pleural 7.38 Not [...] AND S TOOLS ORDERABLES Performing Organization Address City/[facility]/ZIP Code Phon e Number [facility] - [address] [place], [place] [address] [facility] [place] [address] [facility] [address] documented in this encounter Visit Diagnoses Diagnosis Effusion Pleural documented in this encounter Additional Health Concerns Infection Onset Date Last Indicated Resolved Time COVID19 01/26/2021 01/26/2021 02/15/2021 4:55 AM CDT documented as of this encounter Care Teams Tandem Mill Sticker Relationship Specialty Start Date End Date None Reported, Pcp PCP - General Family Medicine 01/25/2102/21 documented as of this encounter
--- OUTSIDE RECORDS SUMMARY | 2022-04-09 07:38 | XMS_ITS | Encounter Summary ---
:1965 Author Organization [facility] Address [address] [place] [address] Care Team Providers Name Role Phone None Reported, Pcp Primary Care Provider Unavailable Reason for Referral Outpatient (Routine) - Closed Specialty Diagnoses / Procedures Referred By Contact Refer red To Contact Diagnoses Pneumothorax Unspecified Hypertension Essential Primary Atherosclerotic Heart Disease [place] Coronary Artery With Other Forms Angina Pectoris (Stable Angina/Angina Of Exertion) (HCC) Diabetes Mellitus Type 2 Hyperglycemia (HCC) [facility] Failure Heart (HCC) GEOVANNY C.N.P., M.S.N. Procedures ECG 12 Lead [address] [place] [address] Referral ID Status Reason Start Date Expiration Date Visits Requ ested Visits Authorized [id number] Closed 02/03/2021 02/03/2022 1 1 utpatient (Routine) - Closed Specialty Diagnoses / Procedures Referred By Contact Refer red To Contact Diagnoses Pneumothorax Unspecified Hypertension Essential Primary Atherosclerotic Heart Disease [place] Coronary Artery With Other Forms Angina Pectoris (Stable Angina/Angina Of Exertion) (HCC) Diabetes Mellitus Type 2 Hyperglycemia (HCC) [facility] Failure Heart (HCC) Colt SMALL.N.P., M.S.N. Procedures Echo Transthoracic (TTE) [address] [place] [address] Referral ID Status Reason Start Date Expiration Date Visits Requ ested Visits Authorized [id number] Closed 02/03/2021 02/03/2022 1 1 Reason for Visit Reason Comments Triage Encounter Details Date Type Department Care Team Description 01/27/2021 Clinical Communication Department of Adjunct Instructor Chemistry, [facility] Cardiovascular Medicine Anita Francisco in [facility] [address] [place] [phone] Social History Tobacco Use Types Packs/Day [...] Appointment Laboratory Medicine Osman Wesley M.D. [address] [place] [phone] (Wallace forrester) 04/09/2022 Hospital Encounter Pulmonary Medicine Mario Pitt M.D. [address] [place] [phone] (Wallace forrester) 04/09/2022 Appointment Cardiovascular Disease Yonas Wesley M.D. [address] [place] [phone] (Wallace forrester) 04/16/2022 Office Visit Endocrinology Wesley Rankin APRN, C.N.P., D. N.P. [address] [place] [phone] (Wallace forrester) 05/23/2022 Office Visit Cardiovascular Disease Yonas Wesley M.D. [address] [place] [phone] (Wo rk) documented as of this encounter [...] City/State/ZIP Code Phon e Number [facility] - [address] [place] [address] [place] [address] [facility] 200 [facility] (ABNORMAL) Lipid Panel (02/09/2021 8:17 AM CDT) [...] 9:14 Venous) CDT AM CDT Erica Bautista APRN C.N.P., M.S.N. LAB BLOOD ADD- ON Performing Organization Address City/State/ZIP Code Phon e Number [facility] - 200 [place], [place] [address] [place] [address] [facility] 200 [facility] Basic Metabolic Panel (02/09/2021 8:17 AM CDT) [...] 02/09/2021 DTL Black/ mL/min/BSA 9:53 AM CDT Mongolian Comment: ----ADDITIONAL INFORMATION---- Estimated GFR calculated using [...] 9:11 Venous) CDT AM CDT Erica Bautista APRN C.N.P., M.S.N. LAB BLOOD ADD- ON Performing Organization Address City/State/ZIP Code Phon e Number [facility] - 200 [place], [place] [address] [place] [address] [facility] [address] [facility] (ABNORMAL) CBC with Differential, Blood (02/09/2021 8:17 AM CDT) [facility] gist Method Time Signature Hemoglobin 13.1 [...] AM 02/10/20 8:45 Venous) CDT AM CDT Rachel Hyde APRNNKarla., M.S.N. LAB BLOOD ADD- ON Performing Organization Address City/State/ZIP Code Phon e Number [facility] - 200 [place], [place] [address] [place] [address] [facility] 200 [facility] ECG 12 Lead (02/09/2021 7:56 AM CDT) P athologist Signature Ventricular Rate 73 BPM MUSE ECG/Min HI Interval 154 ms MUSE QRSD Interval 90 ms MUSE QT Interval 406 ms MUSE QTC Interval 447 ms MUSE P [place] 28 degrees MUSE R [place] 55 degrees MUSE T Wave [place] 56 degrees MUSE Specimen Anatomical Collection Method [...] has decreased Reviewed by DEBBY Padron Erica Campoverde Michele SMALL C.N.P., M.S.N. ECG ORDERABLES Performing Organization Address City/State/ZIP Code [...] performed but not reported based on translator interpreter's judgment. ??RIGHT VENTRICLE: ??Normal ri ght [...] effusion. For the complete report, see the [employer] Documents. Narrative 02/07/2021 4:39 PM CDT For the complete report, see the [employer] Documents. Final Impressions 1. Moderate-severely enlarged left [...] performed but not reported based on translator interpreter's judgment. RIGHT VENTRICLE: Normal right ventricular [...] Unspecified Hypertension Essential Primary Atherosclerotic Heart Disease [place] Cor onary Artery With Other Forms Angina Pectoris (Stable Angina/Angina Of Exertion) (HCC) Diabetes Mellitus Type 2 Hyperglycemia ( HCC) Pneumothorax Unspecified Hypertension Essential Primary Atherosclerotic Heart Disease [place] Cor onary Artery With Other Forms Angina Pectoris (Stable Angina/Angina Of Exertion) (HCC) Diabetes Mellitus Type 2 Hyperglycemia ( HCC) Failure Heart (HCC) documented in this encounter Additional Health Concerns Infection Onset Date Last Indicated Resolved Time COVID19 01/26/2021 01/26/2021 02/15/2021 4:55 AM CDT documented as of this encounter Care Teams Shank Piece Tacker Relationship Specialty Start Date End Date None Reported, Pcp PCP - General Family Medicine 01/25/2102/21 documented as of this encounter
--- OUTSIDE RECORDS SUMMARY | 2022-04-09 07:39 | XMS_ITS | Encounter Summary ---
:1965 Author Organization [facility] Address [address] [place] [address] Care Team Providers Name Role Phone Unavailable Primary Care Provider Unavailable Encounter Details Date Type Department Care Team Description 12/06/2020 Orders Only [facility] Ameya Lemus es Mellitus Type 2 Internal Medicine, Daniel Eason Hyperglycemia ([facility]) [place], [place] [address] [facility] ([facility] [place], [place] [address] [place] [phone] [place], [place] [phone] (Work) [phone] Social History Tobacco Use Types Packs/Day Years [...] Appointment Laboratory Medicine Osman Wesley M.D. 200 [place] [phone] (Wallace forrester) 04/09/2022 Hospital Encounter Pulmonary Medicine Mario Pitt M.D. 200 [place] [phone] (Wallace forrester) 04/09/2022 Appointment Cardiovascular Disease Yonas Wesley M.D. 200 [place] [phone] (Wallace forrester) 04/16/2022 Office Visit Endocrinology Wesley Rankin APRN, C.N.P., D. N.P. [address] [place] [phone] (Wallace forrester) 05/23/2022 Office Visit Cardiovascular Disease Yonas Wesley M.D. [address] [place] [phone] (Wallace forrester) documented as of this encounter Visit Diagnoses Diagnosis Diabetes Mellitus Type 2 Hyperglycemia ( HCC) - Primary documented in this encounter
--- OUTSIDE RECORDS SUMMARY | 2022-04-09 07:39 | XMS_ITS | Encounter Summary ---
:1965 Author Organization [facility] Address [address] [place] [address] Care Team Providers Name Role Phone Unavailable Primary Care Provider Unavailable Reason for Visit Appointment Request (Routine) - Closed Specialty Diagnoses / Procedures Referred By Contact Refer red To Contact Pulmonary Medicine Diagnoses Edema Pulmonary (HCC) Referral ID Status Reason Start Date Expiration Date Visits Requ ested Visits Authorized [id number] Closed 12/21/2020 12/21/2021 2 1 Encounter Details Date Type Department Care Team Description 12/30/2020 Hospital Encounter Division of [place], Pneumotho rax Pulmonary Medicine Norma Cespedes M.D. Iatrogenic (Primary in [place], [address] [facility] Dx) [place], [place] [address] [facility] [address] [place], [place] [phone] (Work) [phone] Social History Tobacco Use Types Packs/Day Years [...] as directed for 1 each 0 2020 [facility] diabetes control. blood-glucose [...] and [facility] [place] [facility]. Patient is [...] here or locally. Edited by: Aleena Rodrigez, Frickertron Checker 01/09/21 9:54 AM CDT documented in this encounter Plan of Treatment Upcoming Encounters Date Type Specialty Care Team Description 04/09/2022 Appointment Laboratory Medicine Osman Wesley M.D. [address] [place] [phone] (Wallace forrester) 04/09/2022 Hospital Encounter Pulmonary Medicine Mario Pitt M.D. [address] [place] [address] [phone] (Wallace forrester) 04/09/2022 Appointment Cardiovascular Disease Yonas Wesley M.D. [address] [place] [phone] (Wallace forrester) 04/16/2022 Office Visit Endocrinology Wesley Rankin APRN, C.N.P., D. N.P. [address] [place] [phone] (Wallace forrester) 05/23/2022 Office Visit Cardiovascular Disease Yonas Wesley M.D. [address] [place] [phone] (Wallace forrester) documented as of this encounter Visit Diagnoses Diagnosis Pneumothorax Iatrogenic - Primary documented in this encounter
--- OUTSIDE RECORDS SUMMARY | 2022-04-09 07:39 | XMS_ITS | Encounter Summary ---
:1965 Author Organization [facility] Address [address] [place] [address] Care Team Providers Name Role Phone Elsewhere, Pcp Primary Care Provider Unavailable Encounter Details Date Type Department Care Team Description 12/05/2020 Orders Only [facility], Aniyah Sparrow M.D. [facility] [address] [facility], [place], [place] [address] [facility] [address] [place] [address] [phone] Social History Tobacco Use Types Packs/Day Years [...] Appointment Laboratory Medicine Osman Wesley M.D. 200 [place] [phone] (Wallace forrester) 04/09/2022 Hospital Encounter Pulmonary Medicine Mario Pitt M.D. 200 [place] [phone] (Wallace forrester) 04/09/2022 Appointment Cardiovascular Disease Yonas Wesley M.D. 200 [place] [phone] (Wallace forrester) 04/16/2022 Office Visit Endocrinology Wesley Rankin APRN, C.N.PLisa, D. N.P. [address] [place] [phone] (Wo rk) 05/23/2022 Office Visit Cardiovascular Disease Yonas Wesley M.D. [address] [place] [phone] (Wo rk) documented as of this encounter Visit Diagnoses Not on filedocumented in this encounter Additional Health Concerns Infection Onset Date Last Indicated Resolved Time COVID19 Pending 01/26/2021 01/26/2021 01/26/2021 12:29 PM CDT COVID19 01/26/2021 01/26/2021 02/15/2021 4:55 AM CDT documented as of this encounter Care Teams Continuous Dryout Operator Helper Relationship Specialty Start Date End Date Elsewhere, Pcp PCP - General 02/22/21 documented as of this encounter
--- OUTSIDE RECORDS SUMMARY | 2022-04-09 07:39 | XMS_ITS | Encounter Summary ---
:1965 Author Organization [facility] Address [address] [place] [address] Care Team Providers Name Role Phone Unavailable Primary Care Provider Unavailable Encounter Details Date Type Department Care Team Description 12/06/2020 Clinical Communication Division of Pulmonary Destiney florez, Medicine in [place], Phuong Hawley M.D. [place] [address] [facility] [address] [place] [phone] Social History Tobacco Use Types Packs/Day Years [...] 12/06/2020 4:41 PM CDT called in via electric cutter operator to discuss glucose meter/lancets/strips prescription as well as rash over arm. She tells me the pharmacy did not give them a glucose meter/lancets/strips so I sent a new prescription to their request pharmacy in [facility]. They also tell me he has developed [...] Appointment Laboratory Medicine Osman Wesley M.D. [address] [place] [address] [phone] ( mitzy) 04/09/2022 Hospital Encounter Pulmonary Medicine Mario Pitt M.D. [address] [place] [address] [phone] (Wo mitzy) 04/09/2022 Appointment Cardiovascular Disease Yonas Wesley M.D. [address] [place] [address] [phone] (Wallace forrester) 04/16/2022 Office Visit Endocrinology Wesley Rankin APRN, C.N.P., D. N.P. [address] [place] [address] [phone] (Wo mitzy) 05/23/2022 Office Visit Cardiovascular Disease Yonas Wesley M.D. [address] [place] [phone] (Wallace forrester) documented as of this encounter Visit Diagnoses Not on filedocumented in this encounter
--- OUTSIDE RECORDS SUMMARY | 2022-04-09 07:39 | XMS_ITS | Encounter Summary ---
:1965 Author Organization [facility] Address [address] [place] [address] Care Team Providers Name Role Phone None Reported, Pcp Primary Care Provider Unavailable Reason for Visit Reason Comments Shortness of Breath Encounter Details Date Type Department Care Team Description 01/25/2021 Emergency [facility] Marielena Castrejon, Shortness Of Breath Emergency Department BAIL BONDSMAN, C.N.P. (Primary Dx) [address] [facility] [address] [place] [phone] (Wo rk) Social History Tobacco Use Types [...] More than 4 times per year 02/09/2021 hinduism services? Do you belong to any clubs [...] through Care Everywhere. Shortness of Breath Adult Crhz-bu-Sdkd (Hungarian)documented in this encounter Medications at Time of [...] M.D. - 01/25/2021 11:31 AM CDT ---------Miscellaneous [facility] ED consult Service Note-------- Mr. Mason Fairbanks a chart review was completed. The patient was not seen or evaluated by the [facility] EDConsult [facility]. Chart review and discussion with Emergency Department provider Marielena Castrejon APRN. Optimization Recommendations: Mr. Fairbanks is a 55 year old gentleman that has been previously evaluated in [place], [place] for dyspnea. He has a history [...] tomorrow. Please let us know if the [facility] team is able to assist in any other way. -----All results and laboratory testing will be followed by the emergency department team. Please ensure results are forwarded to them. We appreciate the collaborative care with the [facility] in the management of Mr. Mason Fairbanks. If any questions or concerns, feel free to page [phone] [facility] ED Consult Team between the hours of 7a-4p. Addendum: The patient had a COVID swab 01/26 in preparation for his pulm appointment 01/27. The patient has a known covid + diagnosis from [place], [place] on 01/06/21. He is past his isolation period. However, his COVID swab on 01/26 returned positive. [place] team received a call that his pulmonary appointment was moved to March 31 due to the covid positive test even though it is not a new diagnosis. We are waiting to hear from medical referral coordinator to see if appointment can be expedited. [...] (HCC) Hypertension Essential Primary Atherosclerotic Heart Disease [place] Coronary Artery With Other Forms Angina Pectoris (Stable Angina/Angina Of Exertion) (HCC) Pneumothorax Unspecified Who presents to the emergency department with shortness of breath and chest burning. Patient has a extensive recent medical history. He did receive cardiac stents in 2019. He was having shortness of breath and chest discomfort in November and was driving from [place] to the [facility] when he developed increased respiratory distress. [...] reports since he has been home in [place] he has required supplemental oxygen at night. He continues to have coughing to. He was diagnosed with COVID 3 weeks ago and given the antibodies. On Saturday he developed a fever, body aches, vomiting and could not eat. He presents back to the emergency department because he does not trust the doctors at [facility]. His chief complaints are chest burning that is been ongoing since he left [facility] in November. Constant coughing with intermittent sputum that is green to clear in color. He has no appetite. He continues to need supplemental oxygen at night which is frustrating to the patient. He has not had a fever since Saturday. Intermittent nausea but no vomiting since Saturday. No abdominal discomfort. He has had diarrhea since leaving hit [facility] in November. But no bloody stool s [...] Appointment Laboratory Medicine Osman Wesley M.D. [address] [place] [phone] (Wo rk) 04/09/2022 Hospital Encounter Pulmonary Medicine Mario Pitt M.D. [address] [place] [phone] (Wo rk) 04/09/2022 Appointment Cardiovascular Disease Yonas Wesley M.D. [address] [place] [address] [phone] (Wo rk) 04/16/2022 Office Visit Endocrinology Wesley Rankin APRN, C.N.P., D. N.P. [address] [place] [phone] (Wo rk) 05/23/2022 Office Visit Cardiovascular Disease Yonas Wesley M.D. [address] [place] [phone] (Wo rk) documented as of this encounter [...] 2H/6H, 5th Gen (01/25/2021 11:57 AM CDT) [facility] Method Time Signature Troponin T, 2 15 <=15 ng/L 01/25/2021 [facility] hr, 5th gen 12:26 PM CDT 2H Delta 0 ng/L 01/25/2021 [facility] 12:26 PM CDT 2H Delta Not Changing 01/25/2021 [facility] Interp 12:26 PM CDT Troponin T, 6 CANCELED ng/L 01/25/2021 [facility] hr, 5th gen 12:26 PM CDT Comment: Result canceled by the corey garsia Specimen Anatomical Collection Method Collection Time Receive d Time (Source) Location / / Volume Laterality Blood (Blood, 01/25/2021 11:57 01/25/2021 Venous) AM CDT 12:03 PM CDT Narrative [facility] - 01/25/2021 12:26 PM CDT Specimen Information: Specimen ID: [id number] Specimen Type: Blood Specimen Collection Start Date: 01/26/20 11:57 AM Specimen Received Date: 01/25/2021 12:03 PM Specimen ID: [id number] Specimen Type: Blood Marielena Castrejon APRN, Colt.N.P. LAB BLOOD TROPONIN Performing Organization Address City/State/ZIP Code Phon e Number [facility] [address] [place], [place] [address] [facility] [place] [address] [facility] [address] DX Chest [...] POCT ORDERABLES - DEVICE Performing Organization Address City/[facility]/ZIP [facility] Phon e Number POC [facility] [address] [place] [address] [place] [address] [facility] [address] Lactate, POCT (01/25/2021 9:35 AM CDT) Analysis Performed At Patho logist Time Signature Lactate, POCT Collected DEFAULT 01/25/2021 S[facility]X 9:35 AM CDT Specimen Anatomical Collection Method Collection Time Receive d Time (Source) Location / / Volume Laterality Blood (Blood, 01/25/2021 9:35 AM 01/26/20 9:35 Venous) CDT AM CDT Colt Schneider APRN.N.P. LAB POCT ORDERABLES - D EVICE Performing Organization Address City/[facility]/ZIP Code Phon e Number [facility] [address] [place], [place] [address] [facility] [place] [address] [facility] [address] Venous Blood Gas and Electrolytes, POCT [...] Schneider APRN.N.P. LAB POCT ORDERABLES - D EVICE Performing Organization Address City/State/ZIP Code Phon e Number [facility] [address] [place], [place] [address] [facility] [place] [address] [facility] [address] (ABNORMAL) Venous Blood Gas [...] POCT ORDERABLES - DEVICE Performing Organization Address City/[facility] Phon e Number POC [facility] INPATIENT [address] [place], [place] [address] LABS P[facility] Laboratories - [place], [place] [id number] [place] [address] POC [address] [facility] [address] Magnesium (01/25/2021 9:31 AM CDT) athologist Signature Magnesium, S 1.8 1.7 - 2.3 01/25/2021 DTL mg/dL 10:40 AM CDT Specimen Anatomical Collection Method Collection Time Receive d Time (Source) Location / / Volume Laterality Blood (Blood, 01/25/2021 9:31 AM 01/26/20 21 Venous) CDT 10:06 AM CDT Marielena Castrejon APRN, C.N.P. LAB BLOOD ADD-ON Performing Organization Address City/[facility] Code Phon e Number [facility] - [address] [place], [place] [address] [facility] [place] [address] [facility] [address] Troponin T, Baseline, 5th gen (01/25/2021 9:31 AM CDT) athologist Signature Troponin T, 15 <=15 ng/L 01/25/2021 [facility] Baseline, 5th 10:02 AM CDT gen Specimen Anatomical Collection Method Collection Time Receive d Time (Source) Location / / Volume Laterality Blood (Blood, 01/25/2021 9:31 AM 01/26/20 21 9:44 Venous) CDT AM CDT Marielena Castrejon APRN, C.N.P. LAB BLOOD TROPONIN Performing Organization Address City/[facility]/ZIP Code Phon e Number [facility] [address] [place], [place] [address] [facility] [place] [address] [facility] 200 [facility] (ABNORMAL) Prothrombin Time (PT) (01/25/2021 9:31 AM CDT) Patholo gist Method Time Signature Prothrombin 12.6 (H) 9.4 - 12.5 01/25/2021 [facility] Time, P sec 9:51 AM CDT INR 1.1 0.9 - 1.1 01/25/2021 [facility] 9:51 AM CDT Comment: ----ADDITIONAL INFORMATION---- Standard intensity warfarin therapeutic range: 2.0 to 3.0 ?? High intensity warfarin therapeutic rang e: 2.5 to 3.5 Specimen Anatomical Collection Method Collection Time Receive d Time (Source) Location / / Volume Laterality Blood (Blood, 01/25/2021 9:31 AM 01/26/20 9:44 Venous) CDT AM CDT Marielena Castrejon APRN C.N.P. LAB BLOOD ADD-ON Performing Organization Address City/State/ZIP Code Phon e Number [facility] [address] [place] [address] [place] [address] [facility] [address] [facility] (ABNORMAL) NT-Pro B-Type Natriuretic Peptide (BNP) (01/25/2021 9:31 AM CDT) P athologist Signature NT-Pro BNP 445 (H) 5 - 67 01/25/2021 [facility] pg/mL 10:14 AM CDT Comment: NT-proBNP values [...] C.N.P. LAB BLOOD ADD-ON Performing Organization Address City/[facility] Phon e Number [facility] - [address] [place], [place] [address] [facility] [place] [address] Lipase (01/25/2021 9:31 AM CDT) P athologist Signature Lipase, S 53 13 - 60 U/L 01/25/2021 DTL 10:40 AM CDT Specimen Anatomical Collection Method Collection Time Receive d Time (Source) Location / / Volume Laterality Blood (Blood, 01/25/2021 9:31 AM 01/26/20 21 Venous) CDT 10:06 AM CDT Marielena Castrejon APRN, C.N.P. LAB BLOOD ADD-ON Performing Organization Address City/[facility] Phon e Number [facility] - [address] [place], [place] [address] [facility] [place] [address] Hepatic Function Panel (01/25/2021 9:31 AM [...] Venous) CDT 10:06 AM CDT Rachel Schneider APRNNJak LAB BLOOD ADD-ON Performing Organization Address City/State/ZIP Code Phon e Number [facility] - [address] [place], [place] [address] [facility] [place] [address] [facility] [address] [facility] (ABNORMAL) CBC with Differential, Blood (01/25/2021 9:31 AM CDT) [facility] Method Time Signature Hemoglobin 12.3 (L) 13.2 [...] Organization Address City/State/ZIP Code Phon e Number [facility] - [address] [place], [place] [address] [facility] [place] [address] [facility] [address] [facility] Basic Metabolic Panel (01/25/2021 9:31 AM [...] Organization Address [facility] Phon e Number [facility] - [address] [place], [place] [address] [facility] [place] [address] [facility] [address] [facility] (ABNORMAL) Hemoglobin A1c (01/25/2021 9:24 AM CDT) [...] C.N.P. LAB BLOOD ADD-ON Performing Organization Address City/[facility] Phon e Number [facility] - [address] [place], [place] [address] [place], [place] [id number] [place] [address] ECG 12 Lead (01/25/2021 9:03 AM CDT) athologist Signature Ventricular Rate 100 BPM MUSE ECG/Min KS Interval 138 ms MUSE QRSD Interval 90 ms MUSE QT Interval 354 ms MUSE QTC Interval 456 ms MUSE P Canvas 47 degrees MUSE R Canvas 48 degrees MUSE T Wave Canvas 46 degrees MUSE Specimen Anatomical Collection Method [...] APRN, C.N.P. ECG ORDERABLES Performing Organization Address City/State/ZIP Code Phon e Number MUSE MUSE NA documented in this encounter Visit Diagnoses Diagnosis Shortness Of Breath - Primary documented in this encounter Care Teams Director Employee Safety And Health Relationship Specialty Start Date End Date None Reported, Pcp PCP - General Family Medicine 01/25/2102/21 documented as of this encounter
--- OUTSIDE RECORDS SUMMARY | 2022-04-09 07:39 | XMS_ITS | Encounter Summary ---
:1965 Author Organization [facility] Address [address] [place] [address] Care Team Providers Name Role Phone Unavailable Primary Care Provider Unavailable Reason for Visit Reason Comments Becca / Angeli Encounter Details Date Type Department Care Team Description 12/13/2020 Clinical Communication Division of LemusBecca / Angeli [facility] Internal Phuong Hawley M.D [facility] [address] [place] [address] in [place] [phone] [place] [phone] [address] [facility] (Work) [place], [place] [phone] (Fax) [phone] Social History Tobacco Use Types Packs/Day Years [...] your review, signature, and date. Thanks Denisse [phone] documented in this encounter Plan of Treatment Upcoming Encounters Date Type Specialty Care Team Description 04/09/2022 Appointment Laboratory Medicine Osman Wesley M.D. [address] [place] [phone] (Wallace rk) 04/09/2022 Hospital Encounter Pulmonary Medicine Mario Pitt M.D. [address] [place] [phone] (Wallace forrester) 04/09/2022 Appointment Cardiovascular Disease Yonas Wesley M.D. [address] [place] [phone] (Wallace forrester) 04/16/2022 Office Visit Endocrinology Wesley Rankin APRN, C.N.P., D. N.P. [address] [place] [phone] (Wo rk) 05/23/2022 Office Visit Cardiovascular Disease Yonas Wesley M.D. [address] [place] [phone] (Wallace forrester) documented as of this encounter Visit Diagnoses Not on filedocumented in this encounter
--- OUTSIDE RECORDS SUMMARY | 2022-04-09 07:40 | XMS_ITS | Encounter Summary ---
:1965 Author Organization [facility] Address [address] [place] [id number] Care Team Providers Name Role Phone Unavailable Primary Care Provider Unavailable Reason for Visit Reason Comments Chest Pain Bradycardia Encounter Details Date Type Department Care Team Description 11/28/2020 - [facility] Krystian Cason M.D. [address] [place] [phone] Edema Pulmonary (HCC) (Primary Dx); [facility] [address] [place] [phone] Other Pneumothorax; [facility], Kelsi Aguilar M.D. [address] [place] [phone] Myocardial Infarction Old; Isidro Mendez M.D. [address] [place] [phone] Atherosclerotic Heart Disease [place] Cor onary Artery With Other Forms Angina Pectoris (Stable Angina/Angina Of Exertion) (HCC); Kay Wilkerson Charles F Jr., M.D. [address] [place] [phone] Acute Respiratory Failure With Hypoxia ( HCC); Floor Hypoxemia [address] [place] [phone] Social History Tobacco Use Types Packs/Day Years [...] PM CDT DISCHARGE SUMMARY BRIEF OVERVIEW Hospital: [facility] Discharge Provider: Isidro Powell M.D. Primary Team: [facility] Pulmonary Medicine Hospital Admission Date: 11/28/2020 Discharge Date: 12/05/2020 PRINCIPAL DIAGNOSIS Edema Pulmonary (HCC) SECONDARY DIAGNOSES Principal Problem: Multifactorial hypoxia Active Problems: Diabetes Mellitus Type 2 Hyperglycemia (HCC) Hypertension Essential Primary Coronary Stent Status Post Acute Respiratory Failure With Hypercapnia (HCC) Acute Respiratory Failure With Hypoxia (HCC) Atherosclerotic Heart Disease [place] Coronary Artery With Other Forms Angina Pectoris (Stable Angina/Angina Of Exertion) (HCC) Acute on chronic systolic heart failure Pneumothorax Unspecified Resolved Problems: * No resolved hospital problems. * Surgery Information This Encounter Past Procedures (12/05/2019 to Today) Date Procedures Providers Location 12/02/2020 Coronary Angiography uLis Wells M.D.Omer, Mohamed A, M.B., B.Ch. [facility] ROMB CCL DISCHARGE DISPOSITION Home or [...] - Requires outpatient f/u with PCP in [place]. OUTPATIENT FOLLOW UP For appointment details refer to your Patient Appointment Guide. TEST RESULTS PENDING AT DISCHARGE Pending Labs None DETAILS OF HOSPITAL STAY REASON FOR ADMISSION Edema Pulmonary (HCC) Other Pneumothorax HOSPITAL COURSE Mr. Fairbanks with history of hypertension and a recent cardiac stents placed in December presented with respiratory arrest. He is from [place] and woke up day of admission with acute onset shortness ofbreath that Mr. Fairbanks described as wet. He also reportedly noted left arm tingling and pain and was concerned he was having a heart attack. His fiance drove him to the nearest gas station where they called EMS. He arrived to the [facility] ED with [facility]. On scene he was diaphoretic and ashen, [...] regions. Prior ECHO results from the patient's insurance agents supervisor showed an EF of 50-55% with similar [...] coronary stent and active essential hypertension. Diabetes infant caregiver educated patient on diabetes management and devised a discharge medical therapy regimen. CONSULTS ORDERED DURING THIS ADMISSION IP CONSULT TO THORACIC SURGERY IP CONSULT TO MEDICAL DOCTOR NUCLEAR MEDICINE ADMITTING CLERK IP CONSULT TO DIABETES IP CONSULT TO DIETITIAN IP CONSULT TO SHOE HANDLER IP CONSULT TO CARDIOLOGY IP CONSULT TO [...] presented with respiratory arrest. He is from [place] and woke up this morning with acute onset shortness of breath that Mr. Fairbanks described as wet. He also reportedly noted left arm tingling and pain and was concerned he was having a heart attack. His fiance drove him to the nearest gas station where they called EMS. He arrived to the [facility] ED with [facility]. On scene he was diaphoretic and [...] management, yearly follow up with a local Net Application Support Specialist and Dietitian is recommended. Please check with your insurance company asdiabetes education visits are commonly covered. Your primary care provider can provide referrals foreducation. AttachmentsThe following attachments cannot be sent through Care Everywhere. Metformin (By mouth) (Mosotho)Clopidogrel (By mouth) (Mosotho)Acetaminophen (By mouth) (Mosotho)Oxycodone/Acetaminophen (By mouth) (Mosotho)Metoprolol (By mouth) (Mosotho)Pantoprazole (By mouth) (Mosotho)documented in this encounter Medications at Time of [...] directed for 1 each 0 2020 [facility] diabetes control. metoprolol succinate TAKE [...] meter, testing supplies and Metformin sent to [facility]. Discussed above plan with patient who is alert and oriented and in agreement. DCS Pager [phone] will continue to follow. Call primary service for diabetes concerns between [phone]. Primary service to contact DCS via hospital straw hat brim raiser operator for questions. Liv Martins, R.R.T., L.R.T. [...] Christian Che - 12/05/2020 7:33 AM CDT [facility] Pulmonary Medicine [facility] PROGRESS NOTE SUBJECTIVE Mr. Fairbanks was resting [...] intact. No evidence of disorganizedthinking. Reliable history infant caregiver. DIAGNOSTICS I have personally reviewed the laboratory data and imaging since admission, and in/outs for past 72 hours. (12/05/20) Nocturnal Home Oxygen Assessment: Requires 1L NC supplemental oxygen. 87% RA asleep. (12/05/20) Daytime Home Oxygen Assessment: Does not require supplemental oxygen. 94% RA quiet wakefulness and 93% RA on activity. ASSESSMENT / PLAN Mr. Fairbanks is hospitalized on [facility] Pulmonary Medicine [facility] for evaluation and management of multifactorial hypoxemia in the setting of left-sided pneumothorax, lung injury from pleural catheter placement, probable community- acquired pneumonia, and cardiogenic pulmonary edema from acute coronary event 11/25. Plan to d/c on 1L NC for sleep requirements. Plan to discharge today afternoon. Organize f/u with PCP in [place]. #1??Coronary artery disease with ischemic cardiomyopathy with??acute [...] 200mg OD. - Requires outpatient f/u with insurance agents supervisor from [place]. #3??Left pneumothorax-possibly??iatrogenic??after needle decompression attempt for suspected [...] to discharge criteria: Met Plan discussed with [facility] Skoog Operator, Chase Hernandez Jr., M.D., whowas present during rosales portions of the evaluation today. Please page the [facility] service pager at #[phone] with any questions. Enjoy today, Christian Che Medical Student #[id number] Associated attestation - Chase Goldstein Jr., M.D. [...] 12/04/2020 2:31 PM CDT SUBJECTIVE I met [id number] with and examined Mr. Fairbanks. I participated [...] Christian Che - 12/04/2020 8:12 AM CDT [facility] Pulmonary Medicine [facility] PROGRESS NOTE SUBJECTIVE Mr. Fairbanks was pleasant [...] intact. No evidence of disorganizedthinking. Reliable history infant caregiver. DIAGNOSTICS I have personally reviewed the [...] / PLAN Mr. Fairbanks is hospitalized on [facility] Pulmonary Medicine Hospital for evaluation and [...] signs and Functional status Plan discussed with [facility] Skoog Operator, Isidro Hough M.D., who was present during rosales portions of the evaluation today. Please page the [facility] service pager at [phone] with any questions. Enjoy today, Christian Che Medical Student #[id number] Desiree Stone M.D. - 12/03/2020 12:24 PM [...] further evaluation is warranted locally or at [facility] per patient preference and depending on clinical status. We will sign off. Please page the IP??Consult service at [phone]??with any questions or concerns. ?? The above [...] do not hesitate to call us at [phone] if we can be of further assistance. [...] closer to home or up here in [place] if desired. Certainly if he has further [...] another goodoption - Follow up with home insurance agents supervisor within a couple weeks, If he would like to be seen here in [place] in a couple months we can facilitate [...] to wear off before the 4 hour wesley. Underwent cardiac angiogram yesterday without additional intervention. [...] No evidence of disorganized thinking. Reliable history infant caregiver. DIAGNOSTICS I have personally reviewed laboratory data, cultures, imaging, and ECGs since admission, with rosales findings discussed below in the assessment and plan. ASSESSMENT / PLAN Mr. Fairbanks is hospitalized on [facility] Pulmonary Medicine [facility] for evaluation and management of multifactorial hypoxemia [...] met): oxygen requirements Plan discussed with Pulmonology Skoog Operator, Isirdo Hough M.D., who was present during the rosales portions of the evaluation today. Please page the Pulmonology service pager at [phone] with any questions. Associated attestation - Isidro Powell M.D. - 12/03/2020 2:12 PM CDT I met [id number] with and examined Mr. Fairbanks. I participated [...] follow. ??Please page the IP??Consult service at [phone]??with any questions orconcerns. ?? The above patient was discussed with ??Jonathan??who is??in agreement??with??the above??plan. Isidro Powell M.D. - 12/02/2020 3:48 PM CDT SUBJECTIVE I met [id number] with and examined Mr. Fairbanks. I participated [...] Follow up: encouraged further outpatient follow-up. The [facility] Registered Dietitian can be reached at pager: [phone] Joe Mahmood M.D. - 12/02/2020 1:08 PM [...] Christian Che - 12/02/2020 6:31 AM CDT [facility] Pulmonary Medicine [facility] PROGRESS NOTE SUBJECTIVE Mr. Fairbanks is a??pleasant [...] are audible with no added heart sounds. [place] beat was not appreciated. No visible JVP distension present. Abdomen: Persistently distended. Passing flatulence but not stool since 11/28 currently on laxatives. Soft, nontender, non rigid, no guarding present. No organomegaly or masses palpated. Bowel sounds arenormoactive diffusely. Mental: Mood and affect congruent. Alert and oriented. Attention intact. No evidence of disorganizedthinking. Reliable history infant caregiver. DIAGNOSTICS I have personally reviewed the laboratory data and imaging since admission, and in/outs for past 72 hours. Lab results remained relatively stable today. WCC 11.3 (previous 12.3). Neutrophils 6.99 (prevoius 8.94). CXR showed persistent left wdtvf-je-duwtuidy pneumothorax without mediastinal shift. Retrocardiac consolidation. Bibasilar atelectasis and probable trace left pleural effusion. Decreased left lateral chest wall subcutaneous emphysema. ASSESSMENT / PLAN Mr. Fairbanks is a 55 y.o. pleasant gentleman with a history of multivessel CAD currently hospitalized on [facility] Pulmonary Medicine Hospital for evaluation and [...] continuous use. Team discussed non-rebreather use following microbiology lab technician to i) improve SaO2 levels ii) provide benefit for current pneumothorax. - Currently at microbiology lab technician for diagnostic +-therapeutic coronary angiography [...] Fairbanks was educated by a nurse practitioner bottomer operator on diabetes management??and commenced on insulin. [...] Patient currently has no active PCP in [place] or [place]. External insurance agents supervisor provided patient with information for a PCP in [place]. Advised patient on ways our service can [...] criteria (not met): Tests/procedures/consults Please page the [facility] service pager at #[phone] if you have any questions orconcerns. Plan discussed with [facility] Skoog Operator, Isidro Hough M.D., who was present during rosales portions of the evaluation today. Enjoy today, Christian Che Medical Student #[id number] Isidro Powell M.D. - 12/01/2020 6:10 PM CDT SUBJECTIVE I met [id number] with and examined Mr. Fairbanks. I participated [...] provided to and reviewed with patient/family. Disclaimers: [facility] Quality Providers: Patients and/or family/responsible green party have been provided thelist of Providers that share their quality measures with [facility]. Reviewed insurance coverage, provided patient with in-network options if applicable. Patient/family have indicated a preference for the facility/agency below. patient declined additional resources. OBJECTIVE Anticipated modifications to the home environment: The patient's family will provide transportation upon discharge. The patient and family will drive to his home in [place]. It is about a [address] The oxygen company is aware of this. Minda reports they can service his oxygen needs in [place], [place] as well as in at his home in [place]. Patient requires the following additional equipment [...] Selected Services Address Phone Fax Patient Preferred [facility] [employer] Durable Medical Equipment [address] [place] [address] [phone] -- Contact: Intake Portable tanks for transport [...] meter, testing supplies and Metformin sent to [facility] pharmacy. Discussed above plan with patient who is alert and oriented and in agreement. DCS Pager [phone] will continue to follow. Call primary service for diabetes concerns between [phone]. Primary service to contact DCS via hospital straw hat brim raiser operator for questions. LYT Christian Che - 12/01/2020 11:05 AM CDT [facility] Pulmonary Medicine Hospital PROGRESS NOTE SUBJECTIVE [...] No lower extremity edema. No raised JVP. [place] beat was not appreciated. Abdomen: Mildly distended. Soft, flat, bowel sounds normoactive, nontender, nondistended, no palpable masses or organomegaly. Mental: Mood and affect congruent. Alert and oriented. Attention intact. No evidence of disorganizedthinking. Reliable history infant caregiver. DIAGNOSTICS I have personally reviewed the [...] / PLAN Mr. Fairbanks is hospitalized on [facility] Pulmonary Medicine [facility] for evaluation and management of Edema Pulmonary [...] Fairbanks was educated by a nurse practitioner bottomer operator on diabetes management and commenced on insulin. Provided with a management plan following discharge. ?? life skills educator and dietitian consult are pending. ? [...] patient and offered advice. Patient stated his insurance agents supervisor suggested a PCP in [place], [place]. Advised patient on waysour service can [...] criteria (not met): Tests/procedures/consults Plan discussed with [facility] Skoog Operator, Isidro Hough M.D., who was present during rosales portions of the evaluation today. Please page the [facility] service pager at #[phone] if you have any questions. Yours sincerely, Christian Che Medical Student #[id number] Christian Ascencio M.D. - 12/01/2020 10:51 AM [...] 11/30/2020 1:57 PM CDT SUBJECTIVE I met [id number] with and examined Mr. Fairbanks. I participated [...] min. ChineduChristian - 11/30/2020 11:44 AM CDT [facility] Pulmonary Medicine Hospital PROGRESS NOTE SUBJECTIVE [...] No lower extremity edema. No raised JVP. [place] beat was not appreciated. Abdomen: Distended. Soft, flat, bowel sounds normoactive, nontender, nondistended, no palpable masses or organomegaly. ENT: Hearing grossly intact. Dentition intact. No oral or pharyngeal erythema or lesions noted. Mental: Mood and affect congruent. Alert and oriented. Attention intact. No evidence of disorganizedthinking. Reliable history infant caregiver. DIAGNOSTICS I have personally reviewed the [...] / PLAN Mr. Fairbanks is hospitalized on [facility] Pulmonary Medicine [facility] for evaluation and management of Edema Pulmonary [...] Primary ?? Received documentation from Mr. Fairbanks's insurance agents supervisor for previous ECHO studies regarding cardiac stenting [...] Fairbanks was educated by a nurse practitioner bottomer operator on diabetes management and commenced on insulin. life skills educator and dietitian consult are pending. ? [...] patient and offered advice. Patient stated his insurance agents supervisor suggested a PCP in [place]. Advised patient on ways our service can be of assistance. Current Activity/Mobility: BMAT Level 4 (Able to stand and walk; needs staff assist if fall risk factors identified) Diet: diabetic diet Tubes/lines: PIV VTE prophylaxis: heparin (porcine) injection 5,000 units subcutaneous q8H Disposition: Uncertain with expected discharge date Stable to discharge criteria (not met): Tests/procedures/consults Plan discussed with [facility] Skoog Operator, Isidro Hough M.D., who was present during rosales portions of the evaluation today. Please [place] [facility] [place] [phone] with any questions. Christian Che Medical Student #[id number] LYT Kishore Piña M.D. - 11/30/2020 7:27 [...] edema present. JVP distention was not visible. [place] beat was not palpable. Abdomen: Distended, soft [...] intact. No evidence of disorganizedthinking. Reliable history infant caregiver. ASSESSMENT / PLAN Mr. Fairbanks is [...] Essential Primary Plan on consulting Mr. Fairbanks's insurance agents supervisor for further information regarding cardiac stenting history. [...] Fairbanks was educated by a nurse practitioner bottomer operator on diabetes management. He has been [...] care monitoring needs Plan discussed with Pulmonary Skoog Operator, Dr. Powell, who was present during rosales portions of the evaluation today. [place] [phone] with any questions. Christian Foxp Medical Student #[id number] Kelsi Aguilar M.D. - 11/29/2020 10:16 AM [...] medical evaluation. Patient was found down at [facility] in [place], [place]. and family were with him and they called 911. When EMS arrived they made the decision to life flight him to [facility] for medical work up.Patient was intubated and sedated upon arrival. Patient's real name is Julio Grier - ay 1965. Patient's is on her way ([facility] - [phone]) OBJECTIVE Emergency Department social work manager responded to the trauma bay in the context of a trauma page. Unidentified Ana Gaxiola was brought by [facility] Helicopter method of transport. ASSESSMENT / PLAN ASSESSMENT Patient is not currently alert/oriented? No further needs identified. A full psychosocial assessmentwas not completed due to the nature of the medical evaluation. PLAN Please contact social work should any needs arise. Eizo Jackson M.S.W. 11/28/2020 documented in this encounter [...] He was quickly intubated and transferred to [facility]. He was sedated and paralyzed.Noted to [...] presented with respiratory arrest. He is from [place] and woke up this morning with acute onset shortness of breath that Mr. Fairbanks described as wet. He also reportedly noted left arm tingling and pain and was concerned he was having a heart attack. His fiance drove him to the nearest gas station where they called EMS. He arrived to the [facility] ED with [facility]. On scene he was diaphoretic and ashen, [...] PULMONARY CONSULT SERVICE CONSULT NOTE REFERRING SERVICE [facility] Pulmonary Medicine [facility] REASON FOR CONSULT Left-sided pneumothorax. HISTORY OF [...] planning on taking the patient to the microbiology lab technician for angio tomorrow. Recommendation: 1. [...] follow. ??Please page the IP??Consult service at [phone]??with any questions or concerns. ?? The above [...] 6:24 PM CDTAssociated Order(s): IP CONSULT TO MEDICAL DOCTOR NUCLEAR MEDICINE ADMITTING CLERK Encounter: Spiritual care Situation: Mr. Fairbanks asked for prayers for healing so that he could go home. He was able to recognize that he has improved quite a bit from the time he came in the hospital via helicopter. 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 Prayers were said with the patient and his family member. Plan: Will remain available for spiritual care as needed or requested. [facility]pl[facility] [phone] ([facility]). Christian Ascencio M.D. - 11/30/2020 [...] LVH, apical akinesis, trivial TR. Since his AZ , he has been chest pain free. Two weeks prior to presentation to [facility], he began experiencing intermittent episodes of chest pain and left arm burning very similar to his previous AZ. the day prior to presentation, he had [...] water seal. He smoked until his last AZ. no alcohol or drug use. Lives part-time in [place] and part-time in [place]. PAST MEDICAL/SURGICAL HISTORY [...] Gatherings with Friends and Family: ??? Attends Synagogue Services: ??? Active Member of Clubs or [...] patient lives with his . Spirituality / Bahai / Culture: None Psychosocial Risk Factors impacting the patient: none Abuse, Neglect, Maltreatment, Trauma: Current: Patient denied. ENVIRONMENTAL SUPPORTS Current Living Situation: The patient lives in [place], but reports also having a home in [place]. Anticipated modifications to the patient's home [...] Skills/Strengths Family support ASSESSMENT / PLAN DISCUSSION Rn Mds met with the patient/family to complete psychosocial assessment, provide ongoing emotional support, and to discuss psychoeducation of resources. Introduced Social Work and their role in the inpatient setting. Informed patient/family of Social Work's legal responsibility as a mandated fabrication inspector and what that entails in regards to [...] glycemic goal. - Consults: Diabetes Educators and Nuclear Operator ANTICIPATED DISMISSAL PLAN: Given elevated A1c and [...] Thank you for the consult. DCS Pager [phone] will follow. Call primary service for diabetes concerns between [phone]. Primary service to contact DCS via hospital straw hat brim raiser operator for questions. Nacho Torres M.D. - [...] per record Allergies None Social Lives in [place]. Vacationing at cabin in [place] at time of incident. The following portions [...] for further management. We placed a 28 Tamazight left chest tube at the bedside. Please see procedure note for additional details. Postplacement x-ray demonstrates the tube is in the chest, though the side hole is adjacent chest wall. This was repositioned and subsequent CXR demonstrated good position. The pigtail catheter was clamped. Recommendations: -Maintain 28 Tamazight chest tube to suction -20 cm water [...] Note Patient transferred to: DOM6B Accompanied by: STAVE AND BOLT EQUALIZER Report called? YES Nurse receiving report: TERENCE [...] Right Radial (Active) Placement Date/Time: 11/28/20 (c) 0519 Hand Hygiene Performed Prior to Insertion: Yes [...] Plan of Care: Patient was extubated to [place] and has tolerated well, strong cough. Will [...] from the ED after being brought to [facility] via [facility], report is patient had acute onset of SOB, left arm numbness and chest pain, [facility] arrived and placed on PAP and [...] Right Radial (Active) Placement Date/Time: 11/28/20 (c) 1307 Hand Hygiene Performed Prior to Insertion: Yes [...] Patient was brought in by the [facility] crew, who provides history. At the scene, [...] Heimlich flutter valve was replaced with the Ovid tree attachment, lung sliding was now seen, [...] estimated age 40s to 50s flown via [facility] from scene due to concern for cardiogenic shock. Per report, patient is from [place] and has a history of recent cardiacstenting. [...] started on nitroglycerin drip and transported to [facility]. Nolan Yin reported SpO2 90% after intubation [...] presented with respiratory arrest. He is from [place] and woke up day of admission with acute onset shortness ofbreath that Mr. Fairbanks described as wet. He also reportedly noted left arm tingling and pain and was concerned he was having a heart attack. His fiance drove him to the nearest gas station where they called EMS. He arrived to the [facility] ED with [facility]. On scene he was diaphoretic and ashen, [...] regions. Prior ECHO results from the patient's insurance agents supervisor showed an EF of 50-55% with similar [...] coronary stent and active essential hypertension. Diabetes infant caregiver educated patient on diabetes management and devised a discharge medical therapy regimen. Patient will need to follow up as an outpatient with their new PCP in [place]. documented in this encounter Plan of Treatment Upcoming Encounters Date Type Specialty Care Team Description 04/09/2022 Appointment Laboratory Medicine Osman Wesley M.D. [address] [place] [phone] (Wo mitzy) 04/09/2022 Hospital Encounter Pulmonary Medicine Mario Pitt M.D. [address] [place] [phone] (Wo rk) 04/09/2022 Appointment Cardiovascular Disease Yonas Wesley M.D. [address] [place] [address] [phone] (Wo rk) 04/16/2022 Office Visit Endocrinology Wesley Rankin APRN C.N.P., D. N.P. [address] [place] [phone] (Wo rk) 05/23/2022 Office Visit Cardiovascular Disease Yonas Wesley M.D. [address] [place] [address] [phone] (Wo mitzy) documented as of this encounter [...] for CATHETERIZATION 5:47 PM CDT Heart Disease [place] this procedure Coronary Artery With are in [...] this procedure are in the results section. AK INS TUBE Routine 11/28/2020 Other Pneumothorax Results [...] (12/05/2020 12:09 PM CDT) Analysis Performed At [facility] logis Time Signature Glucose, POCT, 190 (H) 70 [...] Address City/State/ZIP Code Phon e Number POC [facility] [address] [place] [address] [facility] [place] [address] [place] [facility] [address] (ABNORMAL) Glucose, POCT (12/05/2020 8:26 AM CDT) Analysis Performed At Patho logis Time Signature Glucose, POCT, 157 (H) 70 [...] Address City/State/ZIP Code Phon e Number POC [facility] [address] [place] [address] [facility] [place] [address] [place] [facility] [address] [facility] (ABNORMAL) CBC with Differential, Blood (12/05/2020 6:58 AM CDT) [facility] gist Method Time Signature Hemoglobin 12.1 (L) [...] Address City/State/ZIP Code Phon e Number [facility] - [address] [place], [place] [address] [facility] [place] [address] [facility] [address] [facility] Basic Metabolic Panel (12/05/2020 6:58 AM [...] 12/05/2020 DTL Black/ mL/min/BSA 8:18 AM CDT [place] Comment: ----ADDITIONAL INFORMATION---- Estimated GFR calculated using [...] M.D. LAB BLOOD ADD-ON Performing Organization Address City/[facility]/ZIP Code Phon e Number [facility] - [address] [place], [place] [address] [facility] [place] [address] [facility] 200 [facility] (ABNORMAL) Glucose, POCT (12/04/2020 10:04 PM CDT) [...] Provider LAB POCT ORDERABLES-MANUAL Performing Organization Address City/[facility] Code Phon e Number POC [facility] [address] [place] [address] [facility] [place] [address] [place] P[facility] 200 [facility] Glucose, POCT (12/04/2020 5:54 PM CDT) [...] Provider LAB POCT ORDERABLES-MANUAL Performing Organization Address City/[facility]/ZIP Code Phon e Number POC [facility] [address] [place] [address] [place] [address] [place] [facility] 200 [facility] (ABNORMAL) Glucose, POCT (12/04/2020 12:37 PM [...] Provider LAB POCT ORDERABLES-MANUAL Performing Organization Address City/[facility]/ZIP Code Phon e Number POC [facility] [address] [place] [address] [place] [address] [place] [facility] 200 [facility] Glucose, POCT (12/04/2020 7:44 AM CDT) [...] Provider LAB POCT ORDERABLES-MANUAL Performing Organization Address City/State/[facility] Phon e Number POC [facility] [address] [place] [address] [place] [address] [place] [facility] 200 [facility] (ABNORMAL) Glucose, POCT (12/03/2020 9:24 PM [...] Provider LAB POCT ORDERABLES-MANUAL Performing Organization Address City/[facility]/ZIP Code Phon e Number POC [facility] [address] [place] [address] [facility] [id number] [place] [address] POC 200 [facility] (ABNORMAL) Glucose, POCT (12/03/2020 5:20 PM [...] Provider LAB POCT ORDERABLES-MANUAL Performing Organization Address [facility] Phon e Number POC [facility] [address] [place] [address] [place] [address] [place] [facility] 200 [facility] (ABNORMAL) Glucose, POCT (12/03/2020 11:04 AM [...] Provider LAB POCT ORDERABLES-MANUAL Performing Organization Address City/[facility]/ZIP Code Phon e Number POC [facility] [address] [place] [address] [facility] [place] [address] [place] [facility] [address] DX Chest AP [...] Address City/State/ZIP Code Phon e Number POC [facility] [address] [place] [address] [facility] [place] [address] [place] P[facility] [address] (ABNORMAL) CBC with Differential, Blood (12/03/2020 6:34 AM CDT) [facility] gist Method Time Signature Hemoglobin 12.4 (L) [...] Address City/State/ZIP Code Phon e Number [facility] - [address] [place] [address] [place] [address] [place] [address] [facility] [address] [facility] Basic Metabolic Panel (12/03/2020 6:34 AM [...] 12/03/2020 DTL Black/ mL/min/BSA 8:01 AM CDT [place] Comment: ----ADDITIONAL INFORMATION---- Estimated GFR calculated using [...] Address City/State/ZIP Code Phon e Number [facility] - [facility] [address] [place], [place] [address] [place] [address] Formerly [facility]-[address] SARS-CoV-2 Nucleocapsid Total Ab, S (12/03/2020 6:33 AM CDT) [facility] gist Method Time Signature SARS-CoV-2 Negative Negative 12/03/2020 [facility] Nucleocapsid 5:00 PM CDT Total Ab, S [...] was performed using the [employer] Rmoe-[id number]-2 Reagent assay from [employer], which has received Emergency Use Authori zation(EUA) by the U.S. Food and Drug Administration . Fact sheets for this Emergency Use Autho rization (EUA) assay can be found at the following link s: For Healthcare Providers: https://www.fda.gov/media/953635/downloa d For Patients: https://www.fda.gov/media/555393/downloa d Specimen Anatomical Collection Method Collection Time Receive d Time (Source) Location / / Volume Laterality Blood (Blood, 12/03/2020 6:33 AM 12/04/19 21 4:19 Venous) CDT PM CDT Prince Powers M.D. LAB MICROBIOLOGY - BLOOD ORD ERABLES Performing Organization Address City/State/ZIP Code Phon e Number [facility] - [address] [place], [place] [address] [place] [address] [facility] [address] [facility] (ABNORMAL) Glucose, POCT (12/02/2020 9:06 PM CDT) Analysis Performed At [facility] logist Time Signature Glucose, POCT, 211 [...] Address City/State/ZIP Code Phon e Number POC [facility] [address] [place] [address] [facility] [place] [address] [place] [facility] [address] CORONARY ANGIOGRAPHY (12/02/2020 [...] 3:25 PM CDT) Analysis Performed At Patho logis Time Signature Glucose, POCT, 104 70 - 140 12/02/2020 [facility] B mg/dL 3:27 PM CDT Site Capillary 12/02/2020 [facility] 3:27 PM CDT Last Intake NPO 12/02/2020 [facility] 3:27 PM CDT Specimen Anatomical Collection Method Collection Time Receive d Time (Source) Location / / Volume Laterality Blood 12/02/2020 3:25 PM 3:27 CDT PM CDT Unknown Provider LAB POCT ORDERABLES-MANUAL Performing Organization Address City/[facility]/ZIP Code Phon e Number POC [facility] [address] [place] [address] [place] [address] [place] [facility] 200 [facility] Glucose, POCT (12/02/2020 12:12 PM CDT) Analysis Performed At [facility] Signature Glucose, POCT, 105 70 - 140 12/02/2020 [facility] B mg/dL 12:18 PM CDT Site Capillary 12/02/2020 [facility] 12:18 PM CDT Last Intake > 4 hours 12/02/2020 [facility] 12:18 PM CDT Specimen Anatomical Collection Method Collection Time Receive d Time (Source) Location / / Volume Laterality Blood 12/02/2020 12:12 12/02/2020 PM CDT 12:19 PM CDT Unknown Provider LAB POCT ORDERABLES-MANUAL Performing Organization Address City/[facility] Phon e Number POC [facility] [address] [place] [address] [place] [address] [place] [facility] [address] [place] [address] Glucose, POCT (12/02/2020 8:14 AM CDT) Analysis Performed At Patho logis Time Signature Glucose, POCT, 128 70 - 140 12/02/2020 [facility] B mg/dL 8:38 AM CDT Last Intake > 4 hours 12/02/2020 [facility] 8:38 AM CDT Specimen Anatomical Collection Method Collection Time Receive d Time (Source) Location / / Volume Laterality Blood 12/02/2020 8:14 AM 8:39 CDT AM CDT Unknown Provider LAB POCT ORDERABLES-MANUAL Performing Organization Address City/State/ZIP Code Phon e Number POC [facility] [address] [place] [address] [facility] [place] [address] [place] [facility] [address] DX Chest [...] AM CDT Since 12/01/2020, stable appearing left myjtm-nj-hlekubrr pneumothorax without mediastinal shift. Retrocardiac consolidation/atelectasis and [...] EWS IMPRESSION: Since 12/01/2020, stable appearing left doumv-ku-yknstaaf pneumothorax without mediastinal shift. Retrocardiac consolidation/atelectasis and probable trace left pleural effusion . Normal cardiac contour. Right-sided basilar atelectasis without pneumothorax or effusion. Decreased left lateral chest wall subcutaneous emphysema. Prince MÉNDEZ DIAGNOSTIC IMAGING PROCE DURES (ABNORMAL) CBC with Differential, Blood (12/02/2020 7:38 AM CDT) [facility] Method Time Signature Hemoglobin 11.9 (L) [...] Address City/State/ZIP Code Phon e Number [facility] - [address] [place], [place] [address] [facility] [place] [address] [facility] 200 [facility] Basic Metabolic Panel (12/02/2020 7:38 AM [...] 12/02/2020 DTL Black/ mL/min/BSA 8:30 AM CDT [place] Comment: ----ADDITIONAL INFORMATION---- Estimated GFR calculated using [...] Address City/State/ZIP Code Phon e Number [facility] - [address] [place], [place] [address] [facility] [place] [address] [facility] [address] (ABNORMAL) Glucose, POCT (12/01/2020 [...] Address City/State/ZIP Code Phon e Number POC [facility] [address] [place] [address] [facility] [place] [address] [place] [facility] [address] [facility] Glucose, POCT (12/01/2020 5:31 PM CDT) [...] Provider LAB POCT ORDERABLES-MANUAL Performing Organization Address City/State/[facility] Code Phon e Number POC [facility] [address] [place] [address] [place] [address] [place] P[facility] [address] [facility] DX Chest AP or PA and [...] Provider LAB POCT ORDERABLES-MANUAL Performing Organization Address City/[facility]/ZIP Code Phon e Number POC [facility] [address] [place] [id number] [facility] [address] POC [address] (ABNORMAL) Glucose, POCT [...] Provider LAB POCT ORDERABLES-MANUAL Performing Organization Address [facility] Phon e Number POC [facility] [address] [place] [phone] [facility] [place] [address] [place] [facility] [address] DX Chest AP [...] Activated 29 25 - 37 sec 12/01/2020 DT Partial 8:23 AM CDT Thrombopl Time, P Specimen Anatomical Collection Method Collection Time Receive d Time (Source) Location / / Volume Laterality Blood (Blood, 12/01/2020 7:04 AM 12/02/19 21 7:53 Venous) CDT AM CDT Aniyah Roberson M.D. LAB BLOOD ADD-ON Performing Organization Address City/State/ZIP Code Phon e Number [facility] - [address] [place], [place] [address] [facility] [place] [address] [facility] [address] Prothrombin Time (PT) (12/01/2020 7:04 AM [...] M.D. LAB BLOOD ADD-ON Performing Organization Address City/State/[facility] Code Phon e Number [facility] - [address] [place] [address] [facility] [place] [address] [facility] 200 [facility] (ABNORMAL) CBC without Differential (12/01/2020 7:04 AM CDT) [facility] gist Method Time Signature Hemoglobin 12.6 (L) [...] Address City/State/ZIP Code Phon e Number [facility] - [address] [place], [place] [address] [facility] [place] [address] [facility] [address] [facility] (ABNORMAL) Basic Metabolic Panel (12/01/2020 7:04 [...] 12/01/2020 DTL Black/ mL/min/BSA 8:35 AM CDT [place] Comment: ----ADDITIONAL INFORMATION---- Estimated GFR calculated using [...] M.D. LAB BLOOD ADD-ON Performing Organization Address City/[facility]/ZIP Code Phon e Number [facility] - [address] [place], [place] [address] [facility] [place] [address] [facility] [address] [facility] (ABNORMAL) Glucose, POCT (11/30/2020 9:55 PM [...] Provider LAB POCT ORDERABLES-MANUAL Performing Organization Address City/[facility]/ZIP Code Phon e Number POC [facility] [address] [place] [address] [place] [address] [facility] [address] [facility] pH, Urine (11/30/2020 5:43 PM CDT) P athologist Signature pH, U 5.3 4.5 - 8.0 11/30/2020 8:56 DTL PM CDT Specimen Anatomical Collection Method Collection Time Receive d Time (Source) Location / / Volume Laterality Urine 11/30/2020 5:43 PM 1 6:06 CDT PM CDT Esthela Ryder M.D. LAB URINE ORDERABLES Performing Organization Address City/[facility]/ZIP Code Phon e Number [facility] - [address] [place], [place] [address] [facility] [place] [address] [facility] 200 [facility] (ABNORMAL) Microscopic Automated (11/30/2020 5:43 PM [...] M.D. LAB URINE ORDERABLES Performing Organization Address City/[facility] Phon e Number [facility] - [address] [place] [address] Osmolality, Urine (11/30/2020 5:43 PM CDT) P athologist Signature Osmolality, U 492 150 - 1150 11/30/2020 DTL mOsm/kg 8:56 PM CDT Specimen Anatomical Collection Method Collection Time Receive d Time (Source) Location / / Volume Laterality Urine 11/30/2020 5:43 PM 6:06 CDT PM CDT Esthela Ryder M.D. LAB URINE ORDERABLES Performing Organization Address City/[facility] Phon e Number [facility] - [address] [place], [place] [address] (ABNORMAL) Dipstick, Urine (11/30/2020 5:43 PM [...] M.D. LAB URINE ORDERABLES Performing Organization Address City/[facility] Phon e Number [facility] - [address] [place], [place] [address] [facility] [place] [address] Laboratories-[address] Urinalysis with Microscopic: Urine, Midstream (11/30/2020 [...] M.D. LAB URINE ORDERABLES Performing Organization Address City/State/[facility] Code Phon e Number [facility] - [address] [place], [place] [address] [facility] [place] [address] Laboratories-[address] (ABNORMAL) Glucose, POCT (11/30/2020 5:20 PM [...] Address City/State/ZIP Code Phon e Number POC [facility] [address] [place] [address] [place] [address] [place] [facility] [address] [facility] (ABNORMAL) Glucose, POCT (11/30/2020 11:41 AM [...] Provider LAB POCT ORDERABLES-MANUAL Performing Organization Address City/[facility] Phon e Number POC [facility] [address] [place] [address] [place] [address] [place] [facility] 200 [facility] (ABNORMAL) Glucose, POCT (11/30/2020 7:35 AM [...] Provider LAB POCT ORDERABLES-MANUAL Performing Organization Address City/[facility]/ZIP [facility] Phon e Number POC [facility] [address] [place] [address] [place] [address] [facility] [address] [facility] Calcium, Ionized (11/30/2020 12:06 AM CDT) athologist Signature Calcium, 4.85 4.57 - 5.43 11/30/2020 DTL Ionized, S mg/dL 1:20 AM CDT Comment: ----ADDITIONAL INFORMATION---- This test has been modified from the man ufacturer's instructions. Its performance characteri stics were determined by [facility] in a manner co nsistent with CLIA requirements. This test has not bee n cleared or approved by the U.S. Food and Drug Admin istration. pH for Ionized Calcium 7.48 7.35 - 7.48 11/30/2020 1:20 AM CDT DT Specimen Anatomical Collection Method Collection Time Receive d Time (Source) Location / / Volume Laterality Blood (Blood, 11/30/2020 12:06 11/30/2020 Venous) AM CDT 12:45 AM CDT Aniyah Roberson M.D. LAB BLOOD NON ADD-ON Performing Organization Address City/State/ZIP Code Phon e Number [facility] - [address] [place] [address] [place] [address] [place] [id number] [place] [address] Phosphorus Inorganic (11/30/2020 12:06 AM CDT) athologist Signature Phosphorus 3.6 2.5 - 4.5 11/30/2020 DTL (Inorganic), S mg/dL 1:17 AM CDT Specimen Anatomical Collection Method Collection Time Receive d Time (Source) Location / / Volume Laterality Blood (Blood, 11/30/2020 12:06 11/30/2020 Venous) AM CDT 12:45 AM CDT Aniyah Roberson M.D. LAB BLOOD ADD-ON Performing Organization Address City/State/[facility] Code Phon e Number [facility] - [address] [place], [place] [address] [facility] [place] [id number] [place] [address] Magnesium (11/30/2020 12:06 AM CDT) athologist Signature Magnesium, S 1.8 1.7 - 2.3 11/30/2020 DTL mg/dL 1:17 AM CDT Specimen Anatomical Collection Method Collection Time Receive d Time (Source) Location / / Volume Laterality Blood (Blood, 11/30/2020 12:06 11/30/2020 Venous) AM CDT 12:45 AM CDT Aniyah Roberson M.D. LAB BLOOD ADD-ON Performing Organization Address City/State/ZIP Code Phon e Number [facility] - [address] [place], [place] [address] [facility] [place] [address] [facility] [address] [facility] (ABNORMAL) CBC with Differential, Blood (11/30/2020 12:06 AM CDT) [facility] Method Time Signature Hemoglobin 11.7 (L) [...] Address City/State/ZIP Code Phon e Number [facility] - [address] [place], [place] [address] [facility] [place] [address] [facility] 200 [facility] Basic Metabolic Panel (11/30/2020 12:06 AM [...] 11/30/2020 DTL Black/ mL/min/BSA 1:17 AM CDT [place] Comment: ----ADDITIONAL INFORMATION---- Estimated GFR calculated using [...] M.D. LAB BLOOD ADD-ON Performing Organization Address City/[facility] Phon e Number [facility] - [address] [place], [place] [address] [facility] [address] [facility] [address] [facility] (ABNORMAL) Glucose, POCT (11/29/2020 10:17 PM [...] Provider LAB POCT ORDERABLES-MANUAL Performing Organization Address City/[facility] Phon e Number POC [facility] [address] [place] [address] [facility] [place] [address] [place] [facility] 200 [facility] (ABNORMAL) Glucose, POCT (11/29/2020 6:09 PM [...] Address City/State/ZIP Code Phon e Number POC [facility] [address] [place] [address] [place] [address] [place] [facility] 200 [facility] (ABNORMAL) Glucose, POCT (11/29/2020 12:20 PM CDT) Analysis Performed At [facility] Time Signature Glucose, POCT, 232 (H) 70 - 140 11/29/2020 [facility] B mg/dL 12:22 PM CDT Site Capillary 11/29/2020 [facility] 12:22 PM CDT Specimen Anatomical Collection Method Collection Time Receive d Time (Source) Location / / Volume Laterality Blood 11/29/2020 12:20 11/29/2020 PM CDT 12:23 PM CDT Unknown Provider LAB POCT ORDERABLES-MANUAL Performing Organization Address City/[facility] Phon e Number POC [facility] [address] [place] [address] [place] [address] [place] [facility] 200 [facility] (TTE) 2D ECHO DOPPLER COLOR AND CONTRAST (11/29/2020 10:21 AM CDT) Analysis Performed At [facility] Time Signature Ejection Fraction 44 MC [...] Echocardiography Contra st Administration Protocol Reference Document [id number]. Patient met an inclusion cri terion and did not have contraindications in screening sections. For the complete report, see the [employer] Documents. Narrative 11/29/2020 4:30 PM CDT For the complete report, see the [employer] Documents. Final Impressions 1. Mildly enlarged left [...] 11/29/2020 For the complete report, see the [employer] Documents. Final Impressions 1. Mildly enlarged left [...] Echocardiography Contra st Administration Protocol Reference Document [id number]. Patient met an inclusion cri terion and did not have contraindications in screening sections. For the complete report, see the [employer] Documents. Aniyah Roberson M.D. CV ECHO PROCEDURES (ABNORMAL) Glucose, POCT (11/29/2020 8:07 AM CDT) Analysis Performed At [facility] Time Signature Glucose, POCT, 189 (H) 70 [...] Provider LAB POCT ORDERABLES-MANUAL Performing Organization Address City/[facility]/ZIP Code Phon e Number [facility] [address] [place] [address] PCLX [facility] [place] [address] [facility] 200 [facility] (ABNORMAL) CBC without Differential (11/29/2020 3:46 [...] LAB BLOOD ADD-O N Performing Organization Address City/[facility]/ZIP Code Phon e Number [facility] - [address] [place], [place] [address] [facility] [place] [address] [facility] 200 [facility] (ABNORMAL) Basic Metabolic Panel (11/29/2020 3:46 [...] 11/29/2020 DTL Black/ mL/min/BSA 5:00 AM CDT Moldovan Comment: ----ADDITIONAL INFORMATION---- Estimated GFR calculated using [...] Address City/State/ZIP Code Phon e Number [facility] - [address] [place], [place] [address] [facility] [place] [address] [facility] [address] Phosphorus Inorganic (11/29/2020 3:46 AM CDT) P athologist Signature Phosphorus 3.0 2.5 - 4.5 11/29/2020 DTL (Inorganic), S mg/dL 5:00 AM CDT Specimen Anatomical Collection Method Collection Time Receive d Time (Source) Location / / Volume Laterality Blood (Blood, 11/29/2020 3:46 AM 11/30/19 4:22 Venous) CDT AM CDT Javier Karol Gustavo SMALL C.N.P., D.N.P. LAB BLOOD ADD-O N Performing Organization Address City/State/ZIP Code Phon e Number [facility] - [address] [place], [place] [address] [facility] [place] [address] [facility] [address] Benzodiazepines Confirmation, Urine (11/28/2020 10:35 PM CDT) [facility] Method Time Signature Alprazolam by Negative [...] PM CDT Zolpidem Negative Cutoff: 12/01/2020 [facility] Bbgffu-0-Dcxxeemacr 10 ng/mL 3:47 PM CDT acid by LC-MS/MS Benzodiazepines Positive. 12/01/2020 [facility] Interpretation 3:47 PM CDT Comment: ----ADDITIONAL INFORMATION---- This report is intended for use in clini tio monitoring and management of patients. ??It is not intended for use i n employment-related testing. This test was developed and its performa nce characteristics determined by [facility] in a manner consistent with [...] Address City/State/ZIP Code Phon e Number [facility] [address] [place], [place] [address] [facility] [place] [address] Laboratory Medicine and Pathology [address] [place] (ABNORMAL) Drug Abuse Survey with Confirmation, Panel 9, Urine (11/28/2020 10:35 PM CDT) Component Value Ref Test Analysis Performed At [facility] gist Range Method Time Signature Alcohol Negative [...] test has been modified from the man pratikactjuan antonior's instructions. Its performance characteristics were determi craig by [facility] in a manner consistent with CLIA requirements. This test has not been cleared or approved by the U.S. Food and Drug Administration . Specimen Anatomical Collection Method Collection Time Receive d Time (Source) Location / / Volume Laterality Urine (Urine, 11/28/2020 10:35 11/29/2020 8:23 Clean Catch) PM CDT AM CDT Priscilla Delgado APRN, C.N.P. LAB URINE ORDERABLES Performing Organization Address [facility] Phon e Number [facility] [address] [place] [address] [address] [place] [address] [facility] [place] [address] Laboratory Medicine and Pathology [address] [place] [address] Dr. CO[place] Drug Screen, Prescription/OTC, Urine (11/28/2020 10:35 PM CDT) [facility] Method Time Signature Drugs Acetaminophen. Fentanyl. 11/30/2020 [facility] detected: 10:55 AM The following compounds [...] and its performa nce characteristics determined by [facility] in a manner consistent with CLIA requirements. This test has not been cleared or approved by the U.S. Boyd d and Drug Administration. Specimen Anatomical Collection Method Collection Time Receive d Time (Source) Location / / Volume Laterality Urine (Urine, 11/28/2020 10:35 11/29/2020 8:23 Clean Catch) PM CDT AM CDT Priscilla Delgado APRN, C.N.P. LAB URINE ORDERABLES Performing Organization Address City/[facility]/ZIP Code Phon e Number [facility] [address] [place] [address] [facility] [place] [address] Laboratory Medicine and Pathology [address] [place] [address] Dr. [place] (ABNORMAL) Glucose, POCT (11/28/2020 9:40 [...] Provider LAB POCT ORDERABLES-MANUAL Performing Organization Address City/[facility]/ZIP Code Phon e Number [facility] [address] [place] [address] [place] [address] [facility] 200 [facility] Osmolality, Urine (11/28/2020 9:26 PM CDT) athologist Signature Osmolality, U 571 150 - 1150 11/28/2020 DTL mOsm/kg 11:17 PM CDT Specimen Anatomical Collection Method Collection Time Receive d Time (Source) Location / / Volume Laterality Urine 11/28/2020 9:26 PM 9:51 CDT PM CDT Priscilla Delgado APRN, C.N.P. LAB URINE ORDERABLES Performing Organization Address City/[facility]/ZIP Code Phon e Number [facility] - [address] [place], [place] [address] [facility] [place] [place] [address] Formerly [facility] [address] [facility] pH, Urine (11/28/2020 9:26 PM CDT) P athologist Signature pH, U 5.0 4.5 - 8.0 11/28/2020 11:17 DTL PM CDT Specimen Anatomical Collection Method Collection Time Receive d Time (Source) Location / / Volume Laterality Urine 11/28/2020 9:26 PM 9:51 CDT PM CDT Priscilla Delgado APRN, C.N.P. LAB URINE ORDERABLES Performing Organization Address City/State/ZIP Code Phon e Number [facility] - [address] (ABNORMAL) Microscopic Automated (11/28/2020 9:26 PM CDT) [facility] Method Time Signature Microscopy Abnormal 11/28/2020 [...] LAB URINE ORDERABLES Performing Organization Address City/State/ZIP [facility] Phon e Number [facility] - [address] [place] [address] (ABNORMAL) Dipstick, Urine (11/28/2020 9:26 PM CDT) [facility] Method Time Signature Hemoglobin, Large (A) Negative [...] C.N.P. LAB URINE ORDERABLES Performing Organization Address [facility] Phon e Number [facility] - [address] (ABNORMAL) Urinalysis with Microscopic: Urine, Midstream [...] C.N.P. LAB URINE ORDERABLES Performing Organization Address [facility] Phon e Number [address] [place] [address] (ABNORMAL) Troponin T, 5th Generation (11/28/2020 [...] Address City/State/ZIP Code Phon e Number [facility] - [address] [place], [place] [address] [facility] [place] [address] [facility] [address] (ABNORMAL) Glucose, POCT (11/28/2020 5:07 PM CDT) Analysis [facility] Time Signature Glucose, POCT, 211 (H) 70 [...] Address City/State/ZIP Code Phon e Number POC [facility] [address] [place] [address] [place] [address] [place] [facility] [address] Glucose, POCT (11/28/2020 1:28 PM CDT) athologist [...] Address City/State/ZIP Code Phon e Number POC [facility] [address] [place] [address] [facility] [place] [address] [place] [facility] [address] Glucose, POCT (11/28/2020 12:46 PM CDT) athologist [...] Address City/State/ZIP Code Phon e Number POC [facility] [address] [place] [address] [facility] [place] [address] [place] [facility] [address] DX Chest [...] Address City/State/ZIP Code Phon e Number POC [facility] [address] [place] [address] [facility] [place] [address] [place] [facility] [address] (ABNORMAL) Basic Metabolic Panel (11/28/2020 11:12 AM [...] 11/28/2020 DTL Black/ mL/min/BSA 12:16 PM CDT [place] Comment: ----ADDITIONAL INFORMATION---- Estimated GFR calculated using [...] C.N.P. LAB BLOOD ADD-ON Performing Organization Address City/[facility] Phon e Number [facility] - [address] [place] [address] [facility] [address] Patient Status (11/28/2020 11:12 AM CDT) athologist Signature FIO2 0.40 0.21=AIR 11/28/2020 [facility] 11:17 AM CDT Device Vent 11/28/2020 [facility] 11:17 AM CDT Spont. 20 11/28/2020 [facility] breaths/min 11:17 AM CDT Specimen Anatomical Collection Method Collection Time Receive d Time (Source) Location / / Volume Laterality Blood 11/28/2020 11:12 11/28/2020 AM CDT 11:17 AM CDT Colt Marcelo APRN.N.PLisa, D.N.P. LAB BLOOD NON A DD-ON Performing Organization Address City/[facility]/ZIP [facility] Phon e Number [facility] - [address] [place] [address] [facility] [address] (ABNORMAL) Blood Gas without Coox, Arterial [...] Address City/State/ZIP Code Phon e Number [facility] - [address] [place], [place] [address] [facility] [place] [address] [facility] [address] AK INS TUBE THORACOSTOMY (11/28/2020 10:51 AM CDT) [...] Address City/State/ZIP Code Phon e Number POC [facility] [address] [place] [address] [place] [address] [place] [facility] [address] DX Chest Portable [...] Kelsi Aguilar M.D. IMG DIAGNOSTIC IMAGING PROCE CAROL ANN (ABNORMAL) Glucose, POCT (11/28/2020 9:17 AM CDT) athologist Signature Glucose, POCT, 228 (H) 70 - 140 11/28/2020 [facility] B mg/dL 9:19 AM CDT Specimen Anatomical Collection Method Collection Time Receive d Time (Source) Location / / Volume Laterality Blood 11/28/2020 9:17 AM 9:19 CDT AM CDT Unknown Provider LAB POCT ORDERABLES-MANUAL Performing Organization Address City/State/ZIP Code Phon e Number POC [facility] [address] [place] [address] [place] [address] [place] [facility] [address] (ABNORMAL) Glucose, POCT [...] Address City/State/ZIP Code Phon e Number POC [facility] [address] [place] [address] [place] [phone] [place] [address] POC 200 [facility] (ABNORMAL) Glucose, POCT (11/28/2020 7:26 AM CDT) P athologist Signature Glucose, POCT, 380 (H) 70 - 140 11/28/2020 [facility] B mg/dL 7:32 AM CDT Specimen Anatomical Collection Method Collection Time Receive d Time (Source) Location / / Volume Laterality Blood 11/28/2020 7:26 AM 7:32 CDT AM CDT Unknown Provider LAB POCT ORDERABLES-MANUAL Performing Organization Address City/[facility]/ZIP Code Phon e Number POC [facility] [address] [place] [address] [place] [address] [place] [facility] 200 [facility] DX Chest Portable 1 View (11/28/2020 [...] lower lung. ETT. Sheridan Good APRN, C.N.P. IMLady DIAGNOSTIC IMAGING P ROCEDURES Critical Care (11/28/2020 [...] (11/28/2020 6:30 AM CDT) Analysis Performed At [facility] Time Signature Hemoglobin A1c, 10.3 (H) 4.0 [...] C.N.P. LAB BLOOD ADD-ON Performing Organization Address City/[facility]/ZIP Code Phon e Number [facility] - [address] [place] [address] [address] [facility] DTL [place], [place] [address] [place] [address] Patient Status (11/28/2020 6:23 AM CDT) P athologist Signature FIO2 0.50 0.21=AIR 11/28/2020 6:27 [facility] AM CDT Device Vent 11/28/2020 6:27 [facility] AM CDT Specimen Anatomical Collection Method Collection Time Receive d Time (Source) Location / / Volume Laterality Blood 11/28/2020 6:23 AM 6:27 CDT AM CDT Sheridan Good APRN, C.N.P. LAB BLOOD NON ADD-ON Performing Organization Address City/[facility]/ZIP Code Phon e Number [facility] - [address] [place], [place] [address] [place] [address] Calcium, Ionized (11/28/2020 6:23 AM CDT) P athologist Signature Calcium, 4.69 4.65 - 5.30 11/28/2020 [facility], B mg/dL 6:30 AM CDT Specimen Anatomical Collection Method Collection Time Receive d Time (Source) Location / / Volume Laterality Blood (Blood, 11/28/2020 6:23 AM 11/29/19 6:27 Venous) CDT AM CDT Sheridan Good APRN, C.N.P. LAB BLOOD NON ADD-ON Performing Organization Address City/State/ZIP Code Phon e Number [facility] - [address] [place], [place] [address] [place] [address] (ABNORMAL) Blood Gas without Coox, Arterial [...] Address City/State/ZIP Code Phon e Number [facility] - [address] [place], [place] [address] [facility] [address] [facility] [address] [facility] (ABNORMAL) CBC with Differential, Blood (11/28/2020 [...] Address City/State/ZIP Code Phon e Number [facility] - [address] [place] [address] 05 [place] [address] [facility] 200 [facility] (ABNORMAL) CBC with Differential, Blood (11/28/2020 6:22 AM CDT) [facility] Method Time Signature Hemoglobin 12.4 (L) [...] 6:30 Venous) CDT AM CDT Sheridan Good APRN C.N.P. LAB BLOOD ADD-ON Performing Organization Address City/State/[facility] Code Phon e Number [facility] - [address] [place] [address] 05 [place] [address] [facility] 200 [facility] (ABNORMAL) Hepatic Function Panel (11/28/2020 6:22 AM CDT) [facility] Method Time Signature Bilirubin, Total, S [...] C.N.P. LAB BLOOD ADD-ON Performing Organization Address City/[facility] Phon e Number [facility] - [address] [place] [address] Lactate (11/28/2020 6:22 AM CDT) P athologist Signature Lactate, P 1.5 0.5 - 2.2 11/28/2020 [facility] mmol/L 6:44 AM CDT Specimen Anatomical Collection Method Collection Time Receive d Time (Source) Location / / Volume Laterality Blood (Blood, 11/28/2020 6:22 AM 11/29/19 6:28 Venous) CDT AM CDT Sheridan Good APRN, C.N.P. LAB BLOOD NON ADD-ON Performing Organization Address City/State/[facility] Phon e Number [facility] - [address] [place] [address] [address] [facility] [place] [address] Laboratories-[address] (ABNORMAL) Phosphorus Inorganic (11/28/2020 6:22 AM CDT) P athologist Signature Phosphorus 5.4 (H) 2.5 - 4.5 11/28/2020 DTL (Inorganic), S mg/dL 7:24 AM CDT Specimen Anatomical Collection Method Collection Time Receive d Time (Source) Location / / Volume Laterality Blood (Blood, 11/28/2020 6:22 AM 08/02/20 21 7:07 Venous) CDT AM CDT Sheridan Good APRN, C.N.P. LAB BLOOD ADD-ON Performing Organization Address City/State/[facility] Code Phon e Number [facility] - [address] [place], [place] [address] [place] [address] Laboratories-[address] Magnesium (11/28/2020 6:22 AM CDT) P athologist Signature Magnesium, S 2.1 1.7 - 2.3 11/28/2020 DTL mg/dL 7:24 AM CDT Specimen Anatomical Collection Method Collection Time Receive d Time (Source) Location / / Volume Laterality Blood (Blood, 11/28/2020 6:22 AM 11/29/19 7:07 Venous) CDT AM CDT Sheridan Good APRN, C.N.P. LAB BLOOD ADD-ON Performing Organization Address City/[facility] Code Phon e Number [facility] - [address] (ABNORMAL) Basic Metabolic Panel (11/28/2020 6:22 [...] CDT eGFR-Black/Afri 89 >=60 11/28/2020 [facility] can [place] mL/min/BSA 6:47 AM CDT Comment: ----ADDITIONAL INFORMATION---- Estimated GFR calculated using the 2009 CKD_EPI creatinine equation. eGFR Non-Black/ 77 >=60 mL/min/BSA 6:47 AM CDT [facility] Comment: ----ADDITIONAL INFORMATION---- Estimated GFR calculated using the 2009 CKD_EPI creatinine equation. Calcium, Total, P 8.0 (L) 8.6 - 10.0 mg/dL 11/28/2020 6:47 AM CDT [facility] Glucose, P 373 (H) 70 - 140 mg/dL 11/28/2020 6:47 AM CDT S TMA Specimen Anatomical Collection Method Collection Time Receive d Time (Source) Location / / Volume Laterality Blood (Blood, 11/28/2020 6:22 AM 11/29/19 6:29 Venous) CDT AM CDT Rachel Cárdenas APRNN.PLisa LAB BLOOD ADD-ON Performing Organization Address City/[facility] Phon e Number [facility] - [address] [place], [place] [address] [facility] [place] [address] [facility] [address] (ABNORMAL) Glucose, POCT (11/28/2020 6:21 AM CDT) athologist Signature Glucose, POCT, 355 (H) 70 - 140 11/28/2020 [facility] B mg/dL 7:02 AM CDT Specimen Anatomical Collection Method Collection Time Receive d Time (Source) Location / / Volume Laterality Blood 11/28/2020 6:21 AM 7:02 CDT AM CDT Unknown Provider LAB POCT ORDERABLES-MANUAL Performing Organization Address City/State/[facility] Phon e Number POC [facility] [address] [place] [address] [facility] [place] [address] [facility] [address] Beta-Hydroxybutyrate (11/28/2020 6:17 AM CDT) athologist Signature Beta-Hydroxybut <0.1 <0.4 mmol/L 11/28/2020 DTL yrate, S 11:19 AM CDT Specimen Anatomical Collection Method Collection Time Receive d Time (Source) Location / / Volume Laterality Blood (Blood, 11/28/2020 6:17 AM 11/29/19 21 Venous) CDT 10:02 AM CDT Aron Campoverde Dawn SMALL, C.N.P. LAB BLOOD ADD-ON Performing Organization Address City/State/ZIP Code Phon e Number [facility] - [address] [place], [place] [address] [facility] [place] [address] [facility] [address] Chest without IV [...] 5:36 AM CDT) athologist Signature Sample Site, Venstick [...] POCT ORDERABLES - DEVICE Performing Organization Address City/[facility] Code Phon e Number POC RST [facility] INPATIENT [address] [place] [address] 05 LABS [facility] [place], [place] [id number] [place] [address] [place] [address] Arterial Blood Gas and Electrolytes, POCT (11/28/2020 [...] POCT ORDERABLES - DEVICE Performing Organization Address City/[facility] Phon e Number [facility] - [address] [place] [address] 05 [facility] SMLX [address] (ABNORMAL) Troponin T, 2H/6H, 5th Gen [...] 11/29/19 5:43 Venous) CDT AM CDT Narrative [facility] - 11/28/2020 11:38 AM CDT Specimen Information: Specimen ID: [id number] Specimen Type: Blood Specimen Collection Start Date: ??5:36 AM Specimen Received Date: 11/28/2020 ??5:43 AM Specimen ID: [id number] Specimen Type: Blood Specimen Collection Start Date: 11:12 AM Specimen Received Date: 11/28/2020 11:17 AM Hubert Smith M.D. LAB BLOOD TROPONIN Performing Organization Address City/State/ZIP Code Phon e Number [facility] - [facility] [address] [place], [place] [address] [place] [address] [facility]ly [facility] [address] (ABNORMAL) Glucose, POCT (11/28/2020 5:33 AM CDT) athologist Signature Glucose, POCT, 409 (H) 70 - 140 11/28/2020 [facility] B mg/dL 5:35 AM CDT Site ARTLINE 11/28/2020 [facility] 5:35 AM CDT Specimen Anatomical Collection Method Collection Time Receive d Time (Source) Location / / Volume Laterality Blood 11/28/2020 5:33 AM 5:35 CDT AM CDT Unknown Provider LAB POCT ORDERABLES-MANUAL Performing Organization Address City/State/ZIP Code Phon e Number [facility] [address] [place] [address] [facility] [place] [address] [place] [facility] [address] [facility] Glucose, POCT (11/28/2020 5:29 AM CDT) Analysis Performed At Patho logist Time Signature Glucose, POCT, Collected DEFAULT 11/28/2020 [facility] B 5:29 AM CDT Specimen Anatomical Collection Method Collection Time Receive d Time (Source) Location / / Volume Laterality Blood (Blood, 11/28/2020 5:29 AM 11/29/19 5:29 Capillary) CDT AM CDT Hubert Smith M.D. LAB POCT ORDERABLES-MANUAL Performing Organization Address City/[facility]/ZIP Code Phon e Number [facility] - [address] [place], [place] [address] [facility] [place] [address] [facility] [address] Glucose, POCT (11/28/2020 5:29 AM CDT) Analysis Performed At Patho logis Time Signature Glucose, POCT, Collected DEFAULT 11/28/2020 [facility] B 5:29 AM CDT Specimen Anatomical Collection Method Collection Time Receive d Time (Source) Location / / Volume Laterality Blood (Blood, 11/28/2020 5:29 AM 11/29/19 5:29 Capillary) CDT AM CDT Hubert Smith M.D. LAB POCT ORDERABLES-MANUAL Performing Organization Address City/State/ZIP [facility] Phon e Number [facility] - [address] [place], [place] [address] [facility] [place] [address] [facility] [address] [facility] Glucose, POCT (11/28/2020 5:29 AM CDT) [...] Address City/State/ZIP Code Phon e Number [facility] - [address] [place], [place] [address] [facility] [place] [address] [facility] [address] [facility] (ABNORMAL) Venous Blood Gas and Electrolytes [...] POCT ORDERABLES - DEVICE Performing Organization Address [facility] Phon e Number POC RST [facility] INPATIENT [address] [place], [place] [address] [facility] [place], [place] [id number] [place] [address] [place] [address] Bacteria / Anabela Culture, Blood # 2 (11/28/2020 5:09 AM CDT) [facility] gist Method Time Signature Bacteria/Christina No growth [...] - GENERAL O RDERABLES Performing Organization Address City/[facility] Phon e Number [facility] - [address] [place], [place] [address] [place] [address] [facility] [address] Venous Blood Gas and [...] POCT ORDERABLES - DEVICE Performing Organization Address [facility] Phon e Number [facility] - [address] [place], [place] [address] [facility] [address] Laboratories-[address] Bacteria / Anabela Culture, Blood #1 (11/28/2020 5:02 AM CDT) Patholo gist Method Time Signature Bacteria/Christina No growth 12/03/2020 DTL da Culture, after 5 7:02 AM CDT Blood days of incubation. Specimen (Source) Anatomical Collection Method Collection Time Re ceived Time Location / / Volume Laterality Blood (Blood, 11/28/2020 5:02 11/28/2020 6:22 Peripheral Draw) AM CDT AM CDT Comment: Specimen Source Site: [facility] Krystian Cason M.D. LAB MICROBIOLOGY - GENERAL O RDERABLES Performing Organization Address [facility] Phon e Number [facility] - [address] [place], [place] [address] [facility] [place] [address] Formerly [facility]-[address] Beta-Hydroxybutyrate (11/28/2020 5:02 AM CDT) P athologist Signature Beta-Hydroxybut <0.1 <0.4 mmol/L 11/28/2020 DTL yrate, S 6:05 AM CDT Specimen Anatomical Collection Method Collection Time Receive d Time (Source) Location / / Volume Laterality Blood (Blood, 11/28/2020 5:02 AM 11/29/19 5:40 Venous) CDT AM CDT Sarayna S Smith M.D. LAB BLOOD ADD-ON Performing Organization Address City/State/ZIP Code Phon e Number [facility] - [address] [place], [place] [address] [facility] [place] [address] Laboratories-[facility] [address] DX Chest Portable 1 [...] Comparison made to 11/28/2020 (0 356). Krystian MÉNDEZ DIAGNOSTIC IMAGING PROCE DURES SARS Coronavirus 2, PCR Rapid, V Symptomatic (11/28/2020 4:28 AM CDT) [facility] Method Time Signature SARS CoV-2, Undetected Undetected 11/28/2020 [facility] PCR, Rapid, V 5:01 AM CDT Comment: ----ADDITIONAL INFORMATION---- This RT-PCR test was performed using the Didi SARS-CoV-2 and Influenza A/B Reagent assay from [employer], which has received Emergency Use Authori zation(EUA) by the U.S. Food and Drug Administration . Fact sheets for this Emergency Use Autho rization (EUA) assay can be found at the following link s: For Healthcare Providers: https://www.fda.gov/media/921155/downloa d For Patients: https://www.fda.gov/media/814440/downloa d SARS Coronavirus 2, Source, Rapid Swab, Nasopharynx 11/28/2020 4:32 AM CDT [facility] Specimen Anatomical Collection Method Collection Time Receive d Time (Source) Location / / Volume Laterality Varies 11/28/2020 4:28 AM 4:32 (Nasopharynx) CDT AM CDT Hubert Smith M.D. LAB MICROBIOLOGY - GENERAL O RDERABLES Performing Organization Address City/State/ZIP Code Phon e Number [facility] - [address] [place], [place] [address] [place] [address] Laboratories-[facility] 200 [facility] Chest Tube Insertion (11/28/2020 4:25 AM CDT) [...] Address City/State/ZIP Code Phon e Number POC [facility] [address] [place] [address] [facility] [place] [address] [place] [facility] [address] (ABNORMAL) Venous Blood [...] [facility]ST [facility] INPATIENT [address] [place], [place] [address] [facility] [place] [address] [place] [facility] [address] DX Chest Portable 1 View (11/28/2020 [...] Address City/State/ZIP Code Phon e Number [facility] - [address] [place], [place] [address] [facility] [place] [place] [address] Laboratories-[facility] [address] Prothrombin Time (PT) (11/28/2020 3:31 AM [...] M.D. LAB BLOOD ADD-ON Performing Organization Address City/[facility]/ZIP Code Phon e Number [facility] - [address] [place], [place] [address] [facility] [address] [place] [address] [facility] Magnesium (11/28/2020 3:31 AM CDT) athologist Signature Magnesium, S 2.1 1.7 - 2.3 11/28/2020 DTL mg/dL 4:24 AM CDT Specimen Anatomical Collection Method Collection Time Receive d Time (Source) Location / / Volume Laterality Blood (Blood, 11/28/2020 3:31 AM 11/29/19 4:02 Venous) CDT AM CDT Hubert Smith M.D. LAB BLOOD ADD-ON Performing Organization Address City/[facility]/ZIP Code Phon e Number [facility] - [address] [place], [place] [address] [facility] [place] [address] [place] [address] [facility] (ABNORMAL) Troponin T, Baseline, 5th gen (11/28/2020 3:31 AM CDT) athologist Signature Troponin T, 60 (H) <=15 ng/L 11/28/2020 [facility] Baseline, 5th 3:56 AM CDT gen Specimen Anatomical Collection Method Collection Time Receive d Time (Source) Location / / Volume Laterality Blood (Blood, 11/28/2020 3:31 AM 11/29/19 3:40 Venous) CDT AM CDT Hubert Smith M.D. LAB BLOOD TROPONIN Performing Organization Address City/[facility]/ZIP Code Phon e Number [facility] - [address] [place], [place] [address] [facility] [place] [address] [place] [address] [facility] (ABNORMAL) Hepatic Function Panel (11/28/2020 3:31 AM [...] Address City/State/ZIP Code Phon e Number [facility] - [address] [place], [place] [address] [facility] [place] [address] Laboratories-[facility] [address] (ABNORMAL) [...] Address City/State/ZIP Code Phon e Number [facility] - [address] [place], [place] [address] [facility] [place] [address] Laboratories-[facility] [address] (ABNORMAL) Basic Metabolic [...] CDT eGFR-Black/Afri >90 >=60 11/28/2020 [facility] can [place] mL/min/BSA 4:31 AM CDT Comment: REVISED RESULTS ----ADDITIONAL INFORMATION---- Estimated GFR calculated using the 2009 CKD_EPI creatinine equation. ----PREVIOUSLY REPORTED ---- 61, Flagged as: Normal (Reported 11/28/2020 04:10) eGFR Non-Black/ 84 >=60 mL/min/BSA 4:31 AM CDT [facility] Comment: REVISED RESULTS ----ADDITIONAL INFORMATION---- Estimated GFR calculated using the 2009 CKD_EPI creatinine equation. ----PREVIOUSLY REPORTED ---- 53, Flagged as: Abnormal_Low (Reported 11/28/2020 04:10) Calcium, Total, P 8.5 (L) 8.6 - 10.0 mg/dL 11/28/2020 4:31 AM CDT [facility] Comment: ----PREVIOUSLY REPORTED ---- Demographics adjusted: Ref [...] Address City/State/ZIP Code Phon e Number [facility] - [address] [place], [place] [address] [place] [address] Laboratories-[facility] [address] CBC with Differential, Blood (11/28/2020 3:31 AM CDT) athologist Signature Hemoglobin CANCELED 13.2 - 16.6 11/28/2020 [facility] g/dL 6:12 AM CDT Comment: REVISED RESULTS ----PREVIOUSLY REPORTED ---- 13.9, Flagged as: Normal (Reported 11/28/2020 03:42) Hematocrit CANCELED 38.3 - 48.6 % 11/28/2020 6:[address] [facility] Comment: REVISED RESULTS ----PREVIOUSLY REPORTED ---- 44.7, Flagged as: Normal (Reported 11/28/2020 03:42) Erythrocytes CANCELED 4.35 - 5.65 x10(12)/L 11/28/2020 6:12 AM CDT [facility] Comment: REVISED RESULTS ----PREVIOUSLY REPORTED ---- 4.97, Flagged as: Normal (Reported 11/28/2020 03:42) MCV CANCELED 78.2 - 97.9 fL 11/28/2020 6:12 AM CDT [facility] Comment: REVISED RESULTS ----PREVIOUSLY REPORTED ---- 89.9, Flagged as: Normal (Reported 11/28/2020 03:42) RBC Distrib Width CANCELED 11.8 - 14.5 % 11/28/2020 6:12 AM CDT [facility] Comment: REVISED RESULTS ----PREVIOUSLY REPORTED ---- 14.1, Flagged as: Normal (Reported 11/28/2020 03:42) Platelet Count CANCELED 135 - 317 x10(9)/L 11/28/2020 6:12 AM CDT [facility] Comment: REVISED RESULTS ----PREVIOUSLY REPORTED ---- 355, Flagged as: Abnormal_High (Reported 11/28/2020 03:42) Leukocytes CANCELED 3.4 - 9.6 x10(9)/L 11/28/2020 6:12 AM C DT [facility] Comment: REVISED RESULTS ----PREVIOUSLY REPORTED ---- 17.7, Flagged as: Abnormal_High (Reported 11/28/2020 03:42) Neutrophils CANCELED 1.56 - 6.45 x10(9)/L 11/28/2020 6:12 A M CDT [facility] Comment: REVISED RESULTS Auto-diff results not valid. See manual differential. ----PREVIOUSLY REPORTED ---- SeeComment, Flagged as: Normal (Reported 11/28/2020 04:36) Lymphocytes CANCELED x10(9)/L 11/28/2020 6:12 AM CDT [facility] Comment: Result canceled by the ancillar [...] 11/29/19 3:40 Venous) CDT AM CDT Narrative [facility] - 11/28/2020 6:12 AM CDT CBC with Differential, B was cancelled on 11/28/2020 at 06:12; Duplicate test request. !CNCL! Hubert Smith M.D. LAB BLOOD ADD-ON Performing Organization Address City/[facility]/ZIP Code Phon e Number [facility] - [address] [facility] [address] DHPM [place] [address] [facility] Blood Gas, Venous, POCT (11/28/2020 3:31 [...] POCT ORDERABLES - DEVICE Performing Organization Address City/[facility] Phon e Number [facility] - [address] [place] [address] [facility] [place] [address] [place] [address] [facility] (ABNORMAL) Lactate, POCT (11/28/2020 3:29 AM CDT) P athologist Signature Lactate, POCT 3.33 (H) 0.50 - 11/28/2020 [facility] 2.20 7:00 AM CDT mmol/L [facility]/2020 [facility] POCT 7:00 AM CDT Specimen Anatomical Collection Method Collection Time Receive d Time (Source) Location / / Volume Laterality Blood 11/28/2020 3:29 AM 7:00 CDT AM CDT Unknown Provider LAB POCT ORDERABLES - DEVICE Performing Organization Address City/State/ZIP Code Phon e Number POC [facility] [address] [place] [address] [facility] [place] [address] [place] [facility] [address] (ABNORMAL) Venous Blood Gas and Electrolytes CG8+, POCT (11/28/2020 3:28 AM CDT) P athologist Signature [facility] 11/28/2020 [facility] POCT 3:42 AM CDT Comment: [...] City/State/ZIP Code Phon e Number POC RST [facility] INPATIENT [address] [place], [place] [address] LABS [facility] [place] [address] [facility] [address] ECG 12 Lead (11/28/2020 3:24 AM CDT) P athologist Signature Ventricular Rate 115 BPM MUSE ECG/Min [place] Interval 140 ms MUSE QRSD Interval 92 ms MUSE QT Interval 334 ms MUSE QTC Interval 462 ms MUSE P Cummings 76 degrees MUSE R Cummings 64 degrees MUSE T Wave Cummings 78 degrees MUSE Specimen Anatomical Collection Method [...] Signature Ventricular Rate 115 BPM MUSE ECG/Min AK Interval 140 ms MUSE QRSD Interval 92 ms MUSE QT Interval 334 ms MUSE QTC Interval 462 ms MUSE P Cummings 76 degrees MUSE R Cummings 64 degrees MUSE T Wave Cummings 78 degrees MUSE Specimen Anatomical Collection Method [...] Smith M.D. ECG ORDERABLES Performing Organization Address City/[facility]/ZIP Code Phon e Number MUSE MUSE [...] Address City/State/ZIP Code Phon e Number POC [facility] [address] [place] [address] [facility] [place] [address] [place] P[facility] [address] (ABNORMAL) Blood Gas and Electrolytes CG8+, Point of Care, [place] Inpatient, Vascular Access County Administrator (11/28/2020 3:02 AM CDT) P athologist Signature [...] Address City/State/ZIP Code Phon e Number POC [facility] [address] [place] [address] [place] [address] [facility] [address] documented in this encounter Visit Diagnoses Diagnosis Edema Pulmonary (HCC) - Primary Edema Pulmonary (HCC) Other Pneumothorax Myocardial Infarction 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 Angina Pectoris (Stable Angina/Angina Of Exertion) (HCC) Acute Respiratory Failure With Hypoxia ( HCC) Hypoxemia Diabetes Mellitus Type 2 Hyperglycemia ( HCC) Hypertension Essential Primary Coronary Stent Status Post Acute Respiratory Failure With Hypercapn ia (HCC) Acute Respiratory Failure With Hypoxia ( HCC) Atherosclerotic Heart Disease [place] Cor onary Artery With Other Forms Angina Pectoris (Stable Angina/Angina Of Exertion) (HCC) Pneumothorax Unspecified Atherosclerotic Heart Disease [place] Cor onary Artery With Other Forms Angina Pectoris (Stable Angina/Angina Of Exertion) (HCC) documented in this encounter Admitting Diagnoses Diagnosis Edema Pulmonary (HCC) Atherosclerotic Heart Disease [place] Cor onary Artery With Other Forms Angina [...] irritation, rash, Starting on Sat12/03/20 at 203 Given 12/04/2020 9:46 PM CDT 1 application [...] Given 12/04/2020 8:03 AM CDT 50 mg lejsjnarqodf-wvbz-LV-Ca-minerals 400 mcg Given 12/05/2020 8:32 A M [...] or score 7-10 of 10, Starting on Tu11/29/20 at 0732, Hold for somnolence, RR<12/min, SpO2<88% [...] R.N., CNL)1547 (Given - Provider: Katelyn Johnson, R.NLisa, CNL)2145 (Given - Provider: Carrie RaglandNLisa) 0323 (Given - Provider: Leora Cho R.N.)0903 (Given - Provider: Sydni Sun R.N.)1548 (Given - Provider: Analia Das R.N.) 1,000 mg, oral, Every 6 hours, First [...] R.N., CNL) 0803 (Given - Provider: Linda JohnsonSLisaNLisa, R.N., CNL) 0832 (Given - Provider: Sydni Sun R.N.) 75 mg, oral, Daily, First dose on Sat12/03/20 at 0900 heparin (porcine) injection 5,000 Units 0626 (Given - Provider: Luis Bautista RLisaNLisa)1409 (Given - Provider: Linda JohnsonS.N., R.N., CNL)2124 (Given - Provider: Leora Cho R.N.) 0635 (Given - Provider: Leora Cho R.N.)1548 (Given - Provider: Vaida V. Sepkus, M.S.N., R.N., CNL)2145 (Given - Provider: Leora Cho R.N.) 0623 (Given - Provider: Leora Cho R.N.)1435 (Given - Provider: Sydni Sun R.N.) 5,000 Units, subcutaneous, Every 8 hours scheduled, First dose on Sat11/28/20 at 1400 insulin aspart U-100 (Carbohydrate Count ) injection 0-20 Units (NovoLOG FlexPen) 0901 (Given - Provider: Linda JohnsonS.N., R.N., CNL)1304 (Given - Provider: Linda JohnsonSLisaNLisa, R.NLisa, CNL - Comment: ordered late)1928 (Given - Provider: Leora Cho R.N. - Comment: eating dinner now) 0904 (Given - Provider: Jim Bradley M.S.NLisa, R.NLisa, CNL)1238 (Given - Provider: Jim Bradley M.S.NLisa, R.NLisa, CNL)1934 (Given - Provider: Leora Cho R.N. - [...] 0807 (Not Given - Provider: Linda JohnsonS.NLisa, R.NLisa, MARCOSL - Reason: Order parameters not met)1107 (Given - Provider: Linda JohnsonS.NLisa, R.N., CNL)1924 (Given - Provider: Leora Cho R.N. - Comment: eating dinner now) 0801 (Not Given - Provider: Katelyn Johnson, R.NLisa, [place] - Reason: Order parameters not met)1235 (Given - Provider: Katelyn Johnson, R.N., CNL) 0900 (Not Given - Provider: Sydni Sun R.N. - Reason: Other - Comment: Pt ate breakfast before RMG, ok to skip correction per DCS)1301 (Given - Provider: Carrie HightowerNLisa) 0-13 Units, subcutaneous, 3 times daily, First dose on Sat11/29/20 at 0800, Insulin Scale: Moderate Correction Scale, 140 - 179: 2 units, 180 - 219: 4 units, 220 - 259: 6 units, 260 - 299: 8 units, 300 - 1 754 (Not Given - Provider: Katelyn Johnson, R.NLisa, [place] - Reason: Order parameters not met) [...] Appl ied - Provider: Katelyn Johnson, R.NLisa, [place])2037 (Medication Removed - Provider: Leora Cho R.N.) 0803 (Medication Applied - Provider: Katelyn Brunson, R.NLisa, MARCOSL)2020 (Medication Removed - Provider: Leora Cho R.N.) 0832 (Medication Applied - Provider: Sydni Sun R.N.)1637 (Due: Medication Removed - Provider: Discharge Provider, Automatic - Comment: Time automatically adjusted from order being discontinued) 1 patch, transdermal, Administer over 12 Hours, Daily, First dose on Sat11/28/20 at 1245, Remove after 12 hours. losartan tablet 100 mg (COZAAR) 0803 (Gi laxmi - Provider: Katelyn Johnson, R.N., MARCOSL) 0832 (Given - Provider: Sydni Sun R.N.) 100 mg, oral, Daily, First dose (after last modificati on) on Sat12/04/20 at 0900 losartan tablet 25 mg (COZAAR) (COMPLETED) 1501 (Given - Provider: Linda JohnsonS.N., R.N., [place]) 25 mg, oral, Once, On Sat12/03/20 at 1230, For 1 dose losartan tablet 50 mg (COZAAR) (CANCELED) 0800 (Given - Provider: Katelyn Johnson, R.NLisa, [place]) 50 mg, oral, Daily, First dose (after last modification) on Sat11/29/20 at 0900 melatonin tablet 5 mg 2021 (Given - Provider: Leora mccollum RLisaNLisa) 2144 (Given - Provider: Leora Cho R.N.) 5 mg, oral, Daily at bedtime, First dose on Sat12/01/20 at 2100 metoprolol tartrate tablet 25 mg (LOPRESSOR) (CANCELED ) 0800 (Given - Provider: Katelyn Johnson, R.NLisa, [place]) 25 mg, oral, 2 times daily, First dose on Sat11/28/20 at 2100 metoprolol tartrate tablet 50 mg (LOPRESSOR) 2021 (Giv en - Provider: Leora Cho R.N.) 0803 (Given - Provider: Katelyn Johnson, R.NLisa, [place])214 (Given - Provider: Leora Cho R.N.) 0832 (Given - Provider: Sydni Sun R.N.) 50 mg, oral, 2 times daily, First dose ( after last modification) on Sat12/03/20 at 2100 nlhsvtmzzjzq-yayu-NI-Ca-minerals 400 mcg (folic acid) tablet 1 tablet (THERAPEUTIC-M) 0800 (Given - Provider: Katelyn Johnson, R.N., MARCOSL) 0803 (Given - Provider: Katelyn Johnson, R.NLisa, MARCOSL) 0832 (Given - Provider: Sydni Sun R.N.) 1 tablet, oral, Daily, First dose on Sat11/29/20 at 0900 nicotine 21 mg/24 hr 1 patch (NICODERM CQ) 0808 (Not G iven - Provider: Katelyn Johnson, R.NLisa, [place] - Reason: Patient/family refused) 0802 (Not Given - Provider: Katelyn Johnson, Chandan.Jessica, [place] - Reason: Patient/family refused) 0831 (Not Given - Provider: Sydni Sun R.N. - Reason: Patient/family refused) 1 patch, transdermal, Administer over 24 Hours, Daily, First dose on Sat11/29/[address] tablet 40 mg (PROTONIX) 0626 (Given - Provider: Luis Bautista RKristin) 0635 (Given - Provider: Leora Cho R.N.) 06 23 (Given - Provider: Leora Cho R.N.) 40 mg, oral, Daily before breakfast, Fir st dose on Sat11/30/20 at 0700, pantoprazole 40 mg oral daily was interchanged for omeprazole 20 or 40 mg oral daily Swallow whole. Do NOT crush, chew, or split tablet. polyethylene glycol powder packet 17 g (MIRALAX) 0800 (Given - Provider: Katelyn Johnson, R.NLisa, [place]) 0803 (Given - Provider: Katelyn Johnson, R.Jessica, [place]) 0831 (Given - Provider: Sydni Sun R.N.) 17 g, oral, Daily, First dose (after las t modification) on Sat12/02/20 at 0900, Dissolve in 240 mLs (8 ounces) of water prior to giving. Avoid mixing with starch-based thickened liquids. sennosides-docusate sodium 8.6-50 mg per tablet 2 tabl et (SENOKOT-S) 0800 (Given - Provider: Linda JohnsonS.NLisa, R.NLisa, MARCOSL)204 (Not Given - Provider: Leora Cho R.N. - Reason: Patient/family refused) 08 (Given - Provider: Linda JohnsonS.NLisa, R.NLisa, MARCOSL)214 (Given - Provider: Leora Cho R.N.) 0831 (Given - Provider: Sydni Sun R.N.) 2 tablet, oral, 2 times daily, First dos e (after last modification) on Sat12/02/20 at 0900 sodium chloride 0.9 % injection 10 mL 0900 (Given - Pr ovider: Kaila Johnson.S.N., R.N., CNL)212 (Given - Provider: Leora Cho R.N.) 0804 (Given - Provider: Linda JohnsonS.N., R.N., MARCOSL)2226 (Given - Provider: Leora Cho R.N.) [...] 1 % cream 1 application ( BENADRYL) 2220 (Given - Provider: Leora Cho R.N.) 1235 (Given - Provider: Linda JohnsonSLisaNLisa, R.N., CNL)2145 (Given - Provider: Leora Cho R.N.)2146 (Given - Provider: Leora Cho R.N.) 1 application, topical, 3 times daily AK N, itching, irritation, rash, Starting on Sat12/03/20 [...] (CANCELED) 0358 (Given - Provider: Luis Bautista R.N.) 5 mg, oral, Every 4 hours PRN, severe pa in or score 7-10 of 10, Starting on Sat11/29/20 at 0732, Hold for somnolence, RR<12/min, SpO2<88% oxyCODONE IR tablet 5 mg (ROXICODONE) 0754 (Given - Pr ovider: Linda JohnsonS.N., R.N., CNL)1103 (Given - Provider: Linda JohnsonSLisaN., R.N., CNL)1409 (Given - Provider: Linda JohnsonS.N., R.N., CNL)1722 (Given - Provider: Linda JohnsonSLisaNLisa, R.N., CNL) 0248 (Given - Provider: Leora Cho R.N.)0635 (Given - Provider: Leora Cho R.N.)0946 (Given - Provider: Linda JohnsonS.N., R.N., CNL)1235 (Given - Provider: Linda JohnsonS.N., R.N., CNDaiana) 0323 (Given - Provider: Leora hunter R.N.)0623 (Given - Provider: Chandan Ragland.N.)0943 (Given - Provider: Sydni Sun R.N.)1258 (Given - Provider: Fady Abreu R.N.)1548 (Given - Provider: Analia Das R.N.) 5 mg, oral, Every 3 hours PRN, moderate pain or score 4-6 of 10, severe pain or score 7-10 of 10, Starting on 12/03/20 at 0722 2022 (Given - Provider: Leora Cho R.N.)2324 (Given - Provider: Leora Cho R.N.) 1547 (Given - Provider: Linda JohnsonSLisaN., R.N., CNDaiana)1934 (Given - Provider: Leora Cho R.N.)2224 (Given - Provider: Leora Cho R.N.) documented in this encounter Additional Health Concerns Infection Onset Date Last Indicated Resolved Time COVID19 Pending 11/28/2020 11/28/2020 11/28/2020 5:01 AM CDT documented as of this encounter
--- OUTSIDE RECORDS SUMMARY | 2022-04-09 07:41 | XMS_ITS | Encounter Summary ---
:1965 Author Organization [facility] Address [address] [place] [address] Care Team Providers Name Role Phone Unavailable [...] or relatives? How often do you attend spiritism or More than 4 times per year 02/09/2021 episcopalian services? Do you belong to any clubs or Yes 02/09/2021 organizations such as spiritism groups, unions, fraternal or athletic groups, or [...] Appointment Laboratory Medicine Osman Wesley M.D. [address] [place] [address] [phone] (Wallace forrester) 04/09/2022 Hospital Encounter Pulmonary Medicine Mario Pitt M.D. [address] [place] [address] [phone] (Wallace forrester) 04/09/2022 Appointment Cardiovascular Disease Yonas Wesley M.D. [address] [place] [address] [phone] (Wo mitzy) 04/16/2022 Office Visit Endocrinology Wesley Rankin APRN, C.N.P., D. N.P. [address] [place] [address] [phone] (Wo mitzy) 05/23/2022 Office Visit Cardiovascular Disease Yonas Wesley M.D. [address] [place] [phone] (Wo rk) documented as of this encounter Visit Diagnoses Not on filedocumented in this encounter
--- OUTSIDE RECORDS SUMMARY | 2022-04-09 07:41 | XMS_ITS | Encounter Summary ---
:1965 [address] Organization [facility] Address [address] [place] [address] Care Team Providers Name Role Phone Unavailable [...] or relatives? How often do you attend scientology or More than 4 times per year 02/09/2021 temple services? Do you belong to any clubs or Yes 02/09/2021 organizations such as scientology groups, unions, fraternal or athletic groups, or [...] Laboratory Medicine Osman Wesley M.D. [address] [place] [address] [phone] (Wallace forrester) 04/09/2022 Hospital Encounter Pulmonary Medicine Mario Pitt M.D. [address] [place] [address] [phone] (Wallace forrester) 04/09/2022 Appointment Cardiovascular Disease Yonas Wesley M.D. [address] [place] [address] [phone] (Wo mitzy) 04/16/2022 Office Visit Endocrinology Wesley Rankin APRN, C.N.P., D. N.P. [address] [place] [address] [phone] (Wo mitzy) 05/23/2022 Office Visit Cardiovascular Disease Yonas Wesley M.D. [address] [place] [phone] (Wo rk) documented as of this [...] Electronically signed by: ?? Bob Simpson M.D. [id number] 31-Dec-2002 14:40 Procedure Note Mason Simpson M.D. [...] [id number] Electronically signed by: Bob Simpson M.D. [phone] 31-Dec-2002 14:40 Sunny Camacho M.D. IMG CT PROCEDURES Hx general Pathology Report (12/31/2002 12:15 PM CDT) Specimen Anatomical Collection Method Collection Time Receive d Time (Source) Location / / Volume Laterality 12/31/2002 12:15 12/31/2002 PM CDT 12:15 PM CDT Narrative [facility] - 12/31/2002 12:15 PM CDT ?12/31/2002 General Biopsy ? ([id number]) ? Requested By: ??Sunny Camacho M.D. ??[phone] ?? Additional Physician: ??Joseph ramirez M.D. [phone] ? TISSUE DESCRIPTION: [id number] ?? A. ??Antrum, Stomach biopsy: ??( 7 piec es 0.2-0.4 cm. in diameter) ?DIAGNOSIS: ?? Stomach, antrum, endoscopic biopsy: ??N ormal antral and fundic mucosa. ? 01/01/03 ??Thad Kemp M.D. [phone] ? Procedure Note 07/20/2017 12/31/2002 General Biopsy ([id number]) Requested By: Sunny Camacho M.D. [phone] Additional Physician: Joseph santacruz M.D. [phone] TISSUE DESCRIPTION: [id number] A1 A. Antrum, Stomach biopsy: ( 7 pieces 0 .2-0.4 cm. in diameter) DIAGNOSIS: Stomach, antrum, endoscopic biopsy: Nor mal antral and fundic mucosa. 01/01/03 Thad Kemp M.D. [phone] Historical Provider LAB PATHOLOGY/CYTOLOGY ORDER GRECIA Performing Organization Address City/State/ZIP Code Phon e Number [facility] - [address] [place], [place] [address] [facility] PUL Home Overnight Oximetry (12/30/2002 10:01 PM CDT) Specimen (Source) Anatomical Collection Method Collection Time Re ceived Time Location / / Volume Laterality 12/30/2002 10:01 PM CDT Papito Villarreal M.D., Ph.D. PFT ORDERABLES Performing Organization Address City/State/ZIP Code Phon e Number [facility] - [address] [place], [place] [address] [facility] documented in this encounter Visit Diagnoses Not on filedocumented in this encounter
--- OUTSIDE RECORDS SUMMARY | 2022-04-09 07:41 | XMS_ITS | Encounter Summary ---
:1965 Author Organization [facility] Address [address] [place] [address] Care Team Providers Name Role Phone Elsewhere, Pcp Primary Care Provider Unavailable Encounter Details Date Type Department Care Team Description 12/01/2020 Orders Only [facility], [facility], [facility] Stafford [facility], [facility] Floo r [address] [facility] [address] [place] [phone] (Wo rk) Social History Tobacco Use Types [...] Appointment Laboratory Medicine Osman Wesley M.D. [address] [place] [phone] (Wallace forrester) 04/09/2022 Hospital Encounter Pulmonary Medicine Mario Pitt M.D. [address] [place] [phone] (Wallace forrester) 04/09/2022 Appointment Cardiovascular Disease Yonas Wesley M.D. [address] [place] [address] [phone] (Wallace forrester) 04/16/2022 Office Visit Endocrinology Wesley Rankin APRN, C.N.P., D. N.P. [address] [place] [phone] (Wo rk) 05/23/2022 Office Visit Cardiovascular Disease Yonas Wesley M.D. [address] [place] [phone] (Wo rk) documented as of this encounter Visit Diagnoses Not on filedocumented in this encounter Additional Health Concerns Infection Onset Date Last Indicated Resolved Time COVID19 Pending 01/26/2021 01/26/2021 01/26/2021 12:29 PM CDT COVID19 01/26/2021 01/26/2021 02/15/2021 4:55 AM CDT documented as of this encounter Care Teams [employer] Reverser Relationship Specialty Start Date End Date Elsewhere, Pcp PCP - General 02/22/21 documented as of this encounter
--- OUTSIDE RECORDS SUMMARY | 2022-04-09 07:41 | XMS_ITS | Encounter Summary ---
:1965 Author Organization [facility] Address [address] [place] [address] Care Team Providers Name Role Phone Unavailable Primary Care Provider Unavailable Reason for Visit Reason Comments Chest Pain Bradycardia Encounter Details Date Type Department Care Team Description 12/02/2020 Surgery Division of Cardiovascular Raphael Holman, Coronary Angiography Diseases in [place], M.B., B.C h. [address] [place], [place] [phone] (Wo rk) Social History Tobacco [...] PM CDT DISCHARGE SUMMARY BRIEF OVERVIEW Hospital: [facility] Discharge Provider: Isidro Powell M.D. Primary Team: [facility] Pulmonary Medicine Hospital Admission Date: 11/28/2020 Discharge Date: 12/05/2020 PRINCIPAL DIAGNOSIS Edema Pulmonary (HCC) SECONDARY DIAGNOSES Principal Problem: Multifactorial hypoxia Active Problems: Diabetes Mellitus Type 2 Hyperglycemia (HCC) Hypertension Essential Primary Coronary Stent Status Post Acute Respiratory Failure With Hypercapnia (HCC) Acute Respiratory Failure With Hypoxia (HCC) Atherosclerotic Heart Disease [place] Coronary Artery With Other Forms Angina Pectoris (Stable Angina/Angina Of Exertion) (HCC) Acute on chronic systolic heart failure Pneumothorax Unspecified Resolved Problems: * No resolved hospital problems. * Surgery Information This Encounter Past Procedures (12/05/2019 to Today) Date Procedures Providers Location 12/02/2020 Coronary Angiography Luis Wells M.D.Omer, Mohamed A, M.B., B.Ch. [facility] ROMB CCL DISCHARGE DISPOSITION Home or [...] - Requires outpatient f/u with PCP in [place]. OUTPATIENT FOLLOW UP For appointment details refer to your Patient Appointment Guide. TEST RESULTS PENDING AT DISCHARGE Pending Labs None DETAILS OF HOSPITAL STAY REASON FOR ADMISSION Edema Pulmonary (HCC) Other Pneumothorax HOSPITAL COURSE Mr. Fairbanks with history of hypertension and a recent cardiac stents placed in December presented with respiratory arrest. He is from [place] and woke up day of admission with acute onset shortness ofbreath that Mr. Fairbanks described as wet. He also reportedly noted left arm tingling and pain and was concerned he was having a heart attack. His fiance drove him to the nearest gas station where they called EMS. He arrived to the [facility] ED with Francisco Annamaria. On scene he [...] regions. Prior ECHO results from the patient's tie loader showed an EF of 50-55% with similar [...] coronary stent and active essential hypertension. Diabetes healthcare corporate account director educated patient on diabetes management and devised a discharge medical therapy regimen. CONSULTS ORDERED DURING THIS ADMISSION IP CONSULT TO THORACIC SURGERY IP CONSULT TO FLOAT TENDER SURVEY QUESTIONNAIRE DESIGNER IP CONSULT TO DIABETES IP CONSULT TO DIETITIAN IP CONSULT TO LEAD PRINTER IP CONSULT TO CARDIOLOGY IP CONSULT TO [...] presented with respiratory arrest. He is from [place] and woke up this morning with acute onset shortness of breath that Mr. Fairbanks described as wet. He also reportedly noted left arm tingling and pain and was concerned he was having a heart attack. His fiance drove him to the nearest gas station where they called EMS. He arrived to the [facility] ED with [place] [facility]. On scene he was diaphoretic and [...] management, yearly follow up with a local Associate Professor Of Kinesiology and Dietitian is recommended. Please check with your insurance company asdiabetes education visits are commonly covered. Your primary care provider can provide referrals foreducation. AttachmentsThe following attachments cannot be sent through Care Everywhere. Metformin (By mouth) (Fijian)Clopidogrel (By mouth) (Fijian)Acetaminophen (By mouth) (Fijian)Oxycodone/Acetaminophen (By mouth) (Fijian)Metoprolol (By mouth) (Fijian)Pantoprazole (By mouth) (Fijian)documented in this encounter Medications at Time of [...] as directed for 1 each 0 2020 [facility] diabetes control. metoprolol succinate TAKE 1 TABLET [...] meter, testing supplies and Metformin sent to [facility]. Discussed above plan with patient who is alert and oriented and in agreement. DCS Pager [phone] will continue to follow. Call primary service for diabetes concerns between [phone]. Primary service to contact DCS via hospital road grader operator for questions. Liv Martins R.R.T., L.R.T. [...] Christian Che - 12/05/2020 7:33 AM CDT [facility] PROGRESS NOTE SUBJECTIVE Mr. Fairbanks was resting [...] intact. No evidence of disorganizedthinking. Reliable history cord cutter. DIAGNOSTICS I have personally reviewed the laboratory data and imaging since admission, and in/outs for past 72 hours. (12/05/20) Nocturnal Home Oxygen Assessment: Requires 1L [place] supplemental oxygen. 87% RA asleep. (12/05/20) Daytime Home Oxygen Assessment: Does not require supplemental oxygen. 94% RA quiet wakefulness and 93% RA on activity. ASSESSMENT / PLAN Mr. Fairbanks is hospitalized on [facility] for evaluation and management of multifactorial hypoxemia in the setting of left-sided pneumothorax, lung injury from pleural catheter placement, probable community- acquired pneumonia, and cardiogenic pulmonary edema from acute coronary event 11/25. Plan to d/c on 1L [place] for sleep requirements. Plan to discharge today afternoon. Organize f/u with PCP in [place]. #1??Coronary artery disease with ischemic cardiomyopathy with??acute [...] 200mg OD. - Requires outpatient f/u with tie loader from [place]. #3??Left pneumothorax-possibly??iatrogenic??after needle decompression attempt for suspected [...] to discharge criteria: Met Plan discussed with [facility] Canvas Marker, Chase Hernandez Jr., M.D., whowas present during rosales portions of the evaluation today. Please page the [facility] service pager at #[phone] with any questions. Enjoy today Christian Che Medical Student #[id number] Associated attestation - Chase Goldstein Jr., M.D. [...] 12/04/2020 2:31 PM CDT SUBJECTIVE I met [id number] with and examined Mr. Fairbanks. I participated [...] Christian Alicea - 12/04/2020 8:12 AM CDT [facility] Pulmonary Medicine [facility] PROGRESS NOTE SUBJECTIVE Mr. Fairbanks was [...] intact. No evidence of disorganizedthinking. Reliable history cord cutter. DIAGNOSTICS I have personally reviewed the laboratory [...] / PLAN Mr. Fairbanks is hospitalized on [facility] Pulmonary Medicine [facility] for evaluation and management of multifactorial [...] signs and Functional status Plan discussed with [facility] Canvas Marker, Isidro Hough M.D., who was present during rosales portions of the evaluation today. Please page the [facility] service pager at #[phone] with any questions. Enjoy today, Christian Che Medical Student #[id number] Desiree Stone M.D. - 12/03/2020 12:24 PM [...] is warranted locally or at [facility] per patient preference and depending on clinical status. We will sign off. Please page the IP??Consult service at [phone]??with any questions or concerns. ?? The above [...] do not hesitate to call us at [phone] if we can be of further assistance. [...] closer to home or up here in [place] if desired. Certainly if he has further [...] another goodoption - Follow up with home tie loader within a couple weeks, If he would like to be seen here in [place] in a couple months we can facilitate [...] No evidence of disorganized thinking. Reliable history cord cutter. DIAGNOSTICS I have personally reviewed laboratory data, cultures, imaging, and ECGs since admission, with rosales findings discussed below in the assessment and plan. ASSESSMENT / PLAN Mr. Fairbanks is hospitalized on [facility] Pulmonary Medicine Hospital for evaluation and [...] met): oxygen requirements Plan discussed with Pulmonology Canvas Marker, Isidro Hough M.D., who was present during the rosales portions of the evaluation today. Please page the Pulmonology service pager at [phone] with any questions. Associated attestation - Isidro Powell M.D. - 12/03/2020 2:12 PM CDT I met [id number] with and examined Mr. Fairbanks. I participated [...] follow. ??Please page the IP??Consult service at [phone]??with any questions orconcerns. ?? The above patient was discussed with ??Jonathan??who is??in agreement??with??the above??plan. Isidro Powell M.D. - 12/02/2020 3:48 PM CDT SUBJECTIVE I met [id number] with and examined Mr. Fairbanks. I participated [...] Registered Dietitian can be reached at pager: [phone] Joe Mahmood M.D. - 12/02/2020 1:08 PM [...] Christian Che - 12/02/2020 6:31 AM CDT [facility] Pulmonary Medicine Hospital PROGRESS NOTE SUBJECTIVE [...] are audible with no added heart sounds. [place] beat was not appreciated. No visible JVP distension present. Abdomen: Persistently distended. Passing flatulence but not stool since 11/28 currently on laxatives. Soft, nontender, non rigid, no guarding present. No organomegaly or masses palpated. Bowel sounds arenormoactive diffusely. Mental: Mood and affect congruent. Alert and oriented. Attention intact. No evidence of disorganizedthinking. Reliable history cord cutter. DIAGNOSTICS I have personally reviewed the laboratory data and imaging since admission, and in/outs for past 72 hours. Lab results remained relatively stable today. WCC 11.3 (previous 12.3). Neutrophils 6.99 (prevoius 8.94). CXR showed persistent left rhfsf-no-[id number] pneumothorax without mediastinal shift. Retrocardiac consolidation. Bibasilar atelectasis and probable trace left pleural effusion. Decreased left lateral chest wall subcutaneous emphysema. ASSESSMENT / PLAN Mr. Fairbanks is a 55 y.o. pleasant gentleman with a history of multivessel CAD currently hospitalized on [facility] Pulmonary Medicine Hospital for evaluation and [...] continuous use. Team discussed non-rebreather use following cath laboratory technician to i) improve SaO2 levels ii) provide benefit for current pneumothorax. - Currently at cath laboratory technician for diagnostic +-therapeutic coronary angiography [...] Fairbanks was educated by a nurse practitioner air and water tester on diabetes management??and commenced on insulin. Provided [...] Patient currently has no active PCP in [place] or [place]. External tie loader provided patient with information for a PCP in [place]. Advised patient on ways our service can [...] criteria (not met): Tests/procedures/consults Please page the [facility] service pager at #[phone] if you have any questions orconcerns. Plan discussed with [facility] Medicine [facility] Canvas Marker, Isidro Hough M.D., who was present during rosales portions of the evaluation today. Enjoy today, Christian Che Medical Student #[id number] Isidro Powell M.D. - 12/01/2020 6:10 PM CDT SUBJECTIVE I met [id number] with and examined Mr. Fairbanks. I participated [...] provided to and reviewed with patient/family. Disclaimers: [place] Quality Providers: Patients and/or family/responsible constitution party have been provided thelist of Providers that share their quality measures with [facility]. Reviewed insurance coverage, provided patient with in-network options if applicable. Patient/family have indicated a preference for the facility/agency below. patient declined additional resources. OBJECTIVE Anticipated modifications to the home environment: The patient's family will provide transportation upon discharge. The patient and family will drive to his home in [place]. It is about a [address] The oxygen company is aware of this. Minda reports they can service his oxygen needs in [place], [place] as well as in at his home in [place]. Patient requires the following additional equipment upon [...] Selected Services Address Phone Fax Patient Preferred [facility] [employer] Medical [employer] [phone] [address] [phone] -- Contact: Intake Portable tanks for transport [...] meter, testing supplies and Metformin sent to [facility]. Discussed above plan with patient who is alert and oriented and in agreement. DCS Pager [phone] will continue to follow. Call primary service for diabetes concerns between [phone]. Primary service to contact DCS via hospital road grader operator for questions. Christian Che - 12/01/2020 11:05 AM CDT [facility] Pulmonary Medicine [facility] PROGRESS NOTE SUBJECTIVE Mr. Fairbanks is [...] No lower extremity edema. No raised JVP. [place] beat was not appreciated. Abdomen: Mildly distended. Soft, flat, bowel sounds normoactive, nontender, nondistended, no palpable masses or organomegaly. Mental: Mood and affect congruent. Alert and oriented. Attention intact. No evidence of disorganizedthinking. Reliable history cord cutter. DIAGNOSTICS I have personally reviewed the laboratory [...] / PLAN Mr. Fairbanks is hospitalized on [facility] Pulmonary Medicine Hospital for evaluation and [...] Fairbanks was educated by a nurse practitioner air and water tester on diabetes management and commenced on insulin. Provided with a management plan following discharge. ?? senior health educator and dietitian consult are pending. ? [...] patient and offered advice. Patient stated his tie loader suggested a PCP in [place], [place]. Advised patient on waysour service can [...] criteria (not met): Tests/procedures/consults Plan discussed with [facility] Canvas Marker, Isidro Hough M.D., who was present during rosales portions of the evaluation today. Please page the [facility] service pager at #[phone] if you have any questions. Yours sincerely, Christian Che Medical Student #[id number] Christian Ascencio M.D. - 12/01/2020 10:51 AM [...] 11/30/2020 1:57 PM CDT SUBJECTIVE I met inma-tq-jrrm with and examined Mr. Fairbanks. I participated [...] Christian Che - 11/30/2020 11:44 AM CDT [facility] Pulmonary Medicine [facility] PROGRESS NOTE SUBJECTIVE Mr. Fairbanks is [...] No lower extremity edema. No raised JVP. [place] beat was not appreciated. Abdomen: Distended. Soft, flat, bowel sounds normoactive, nontender, nondistended, no palpable masses or organomegaly. ENT: Hearing grossly intact. Dentition intact. No oral or pharyngeal erythema or lesions noted. Mental: Mood and affect congruent. Alert and oriented. Attention intact. No evidence of disorganizedthinking. Reliable history cord cutter. DIAGNOSTICS I have personally reviewed the laboratory [...] / PLAN Mr. Fairbanks is hospitalized on [facility] Pulmonary Medicine [facility] for evaluation and management of Edema [...] Primary ?? Received documentation from Mr. Fairbanks's tie loader for previous ECHO studies regarding cardiac stenting [...] Diabetes Mellitus Type 2 Hyperglycemia A1c 10.3% ([facility]) ?? Mr. Fairbanks was educated by a nurse practitioner air and water tester on diabetes management and commenced on insulin. senior health educator and dietitian consult are pending. ? [...] patient and offered advice. Patient stated his tie loader suggested a PCP in [place]. Advised patient on ways our service can be of assistance. Current Activity/Mobility: BMAT Level 4 (Able to stand and walk; needs staff assist if fall risk factors identified) Diet: diabetic diet Tubes/lines: PIV VTE prophylaxis: heparin (porcine) injection 5,000 units subcutaneous q8H Disposition: Uncertain with expected discharge date Stable to discharge criteria (not met): Tests/procedures/consults Plan discussed with [facility] Canvas Marker, Isidro Hough M.D., who was present during rosales portions of the evaluation today. Please page [place] [facility] [place] [phone] with any questions. Christian Che Medical Student #[id number] Kishore Monet M.D. - 11/30/2020 7:27 AM CDT No major issues overnight. Patient transferred from ICU yesterday. Pigtail was removed yesterday andCT remains in place. Assessed the chest tube this morning. No air leak present. 425 cc output. Chesttube placed to water seal on evaluation this morning. If no air leak and output appropriate, will likely remove tomorrow. Christain Alicea 11/29/2020 3:20 PM CDT SUBJECTIVE CC: [...] edema present. JVP distention was not visible. [place] beat was not palpable. Abdomen: Distended, soft [...] intact. No evidence of disorganizedthinking. Reliable history cord cutter. ASSESSMENT / PLAN Mr. Fairbanks is a [...] Essential Primary Plan on consulting Mr. Fairbanks's tie loader for further information regarding cardiac stenting history. [...] Fairbanks was educated by a nurse practitioner air and water tester on diabetes management. He has been commenced [...] care monitoring needs Plan discussed with Pulmonary Canvas Marker, Dr. Powell, who was present during rosales portions of the evaluation today. [place] [phone] with any questions. Christian Che Medical Student #[id number] LYT Kelsi Aguilar M.D. - 11/29/2020 10:16 [...] Patient presents as a trauma page from [facility] for medical work up. Patient is not assessed due toreceiving urgent medical evaluation. Patient was found down at [facility] in [place], [place]. and family were with him and they called 911. When EMS arrived they made the decision to life flight him to [facility] for medical work up.Patient was intubated and sedated upon arrival. Patient's real name is Julio Whaley garry 1965. Patient's is on her way ([facility] - [phone]) OBJECTIVE Emergency Department drug abuse social worker responded to the trauma bay in the context of a trauma page. Unidentified Ana Gaxiola was brought by [facility] Helicopter method of transport. ASSESSMENT / [...] He was quickly intubated and transferred to [facility]. He was sedated and paralyzed.Noted [...] presented with respiratory arrest. He is from [place] and woke up this morning with acute onset shortness of breath that Mr. Fairbanks described as wet. He also reportedly noted left arm tingling and pain and was concerned he was having a heart attack. His fiance drove him to the nearest gas station where they called EMS. He arrived to the [facility] ED with [place] [facility]. On scene he was diaphoretic and [...] (HCC) #6 Acute Respiratory Failure With Hypoxia ([facility]) Mr. Fairbanks presents with acute hypercapnic and [...] PULMONARY CONSULT SERVICE CONSULT NOTE REFERRING SERVICE [facility] Pulmonary Medicine [facility] REASON FOR CONSULT Left-sided pneumothorax. HISTORY [...] planning on taking the patient to the cath laboratory technician for angio tomorrow. Recommendation: 1. [...] follow. ??Please page the IP??Consult service at [phone]??with any questions or concerns. ?? The above [...] 6:24 PM CDTAssociated Order(s): IP CONSULT TO FLOAT TENDER SURVEY QUESTIONNAIRE DESIGNER Encounter: Spiritual care Situation: Mr. Fairbanks asked for prayers for healing so that he could go home. He was able to recognize that he has improved quite a bit from the time he came in the hospital via helicopter. Family: He had 1 family member with him Elaine Tradition: Mr. Fairbanks is a Episcopal who currently attends a [employer] rastafari in [place]. Prayers were said with the patient and his family member. Plan: Will remain available for spiritual care as needed or requested. Chaplains can be contacted [facility] [phone] ([place]). Christian Ascencio M.D. - 11/30/2020 4:53 PM [...] LVH, apical akinesis, trivial TR. Since his TX , he has been chest pain free. Two weeks prior to presentation to [place], he began experiencing intermittent episodes of chest pain and left arm burning very similar to his previous TX. the day prior to presentation, he had [...] water seal. He smoked until his last TX. no alcohol or drug use. Lives part-time in [place] and part-time in [place]. PAST MEDICAL/SURGICAL HISTORY See above SOCIAL HISTORY [...] Gatherings with Friends and Family: ??? Attends Mormonism Services: ??? Active Member of Clubs or [...] patient lives with his . Spirituality / Alevism / Culture: None Psychosocial Risk Factors impacting the patient: none Abuse, Neglect, Maltreatment, Trauma: Current: Patient denied. ENVIRONMENTAL SUPPORTS Current Living Situation: The patient lives in [place], but reports also having a home in [facility]. Anticipated modifications to the patient's home [...] Skills/Strengths Family support ASSESSMENT / PLAN DISCUSSION Industrial Welder met with the patient/family to complete psychosocial assessment, provide ongoing emotional support, and to discuss psychoeducation of resources. Introduced Social Work and their role in the inpatient setting. Informed patient/family of Social Work's legal responsibility as a mandated inspector fabric and what that entails in regards to [...] glycemic goal. - Consults: Diabetes Educators and Instruments Sales Representative ANTICIPATED DISMISSAL PLAN: Given elevated A1c and [...] Thank you for the consult. DCS Pager [phone] will follow. Call primary service for diabetes concerns between [phone]. Primary service to contact DCS via hospital road grader operator for questions. Nacho Torres M.D. - [...] per record Allergies None Social Lives in [place]. [facility] [place] at time of incident. The following portions [...] for further management. We placed a 28 Welsh left chest tube at the bedside. Please see procedure note for additional details. Postplacement x-ray demonstrates the tube is in the chest, though the side hole is adjacent chest wall. This was repositioned and subsequent CXR demonstrated good position. The pigtail catheter was clamped. Recommendations: -Maintain 28 Welsh chest tube to suction -20 cm water -Keep pigtail catheter clamped. -Tomorrow we will remove the pigtail catheter and anticipate removing the chest tube in 24-48 hours if no significant bleeding or leak. [facility] Patient seen and evaluated with Dr. [...] Note Patient transferred to: [facility]6B Accompanied by: CUSTOMER BUSINESS MANAGER Report called? YES Nurse receiving report: TERENCE [...] Right Radial (Active) Placement Date/Time: 11/28/20 (c) 4164 Hand Hygiene Performed Prior to Insertion: Yes [...] Plan of Care: Patient was extubated to IA and has tolerated well, strong cough. Will continue to monitor and assess while in the ICU. Principal Problem Edema Pulmonary (HCC) Oxygen Therapy $Delivery Method: Nasal cannula Arterial Line 11/28/20 Right Radial (Active) Placement Date/Time: 11/28/20 (c) 2484 Hand Hygiene Performed Prior to Insertion: Yes [...] being brought to [facility] via [facility], report is patient had acute onset of SOB, left arm numbness and chest pain, [facility] arrived and placed on PAP and [...] Right Radial (Active) Placement Date/Time: 11/28/20 (c) 8568 Hand Hygiene Performed Prior to Insertion: Yes [...] distress. Patient was brought in by the [facility] crew, who provides history. At [...] estimated age 40s to 50s flown via [facility] from scene due to concern for cardiogenic shock. Per report, patient is from [place] and has a history of recent cardiacstenting. He reported new onset difficulty breathing tonight and felt like his lungs were wet. Hisfiance drove him to the nearest gas station and EMS was called. [facility] was dispatched due to concern for ACS and on arrival his saturations were in the 40s. Unknown initial blood pressure. [facility] trialed BiPap with no success and intubated him with ketamine and rocuronium. He was started on nitroglycerin drip and transported to [facility]. [facility] reported SpO2 90% after intubation with high [...] presented with respiratory arrest. He is from [place] and woke up day of admission with acute onset shortness ofbreath that Mr. Fairbanks described as wet. He also reportedly noted left arm tingling and pain and was concerned he was having a heart attack. His fiance drove him to the nearest gas station where they called EMS. He arrived to the [facility] ED with Francisco Annamaria. On scene he [...] regions. Prior ECHO results from the patient's tie loader showed an EF of 50-55% with similar [...] coronary stent and active essential hypertension. Diabetes healthcare corporate account director educated patient on diabetes management and devised a discharge medical therapy regimen. Patient will need to follow up as an outpatient with their new PCP in [place]. documented in this encounter Plan of Treatment Upcoming Encounters Date Type Specialty Care Team Description 04/09/2022 Appointment Laboratory Medicine Osman Wesley M.D. [address] [place] [phone] (Wo rk) 04/09/2022 Hospital Encounter Pulmonary Medicine Mario Pitt M.D. [address] [place] [phone] ([facility] 04/09/2022 Appointment Cardiovascular Disease Yonas Wesley M.D. [address] [place] [phone] ([facility]) 04/16/2022 Office Visit Endocrinology Wesley Rankin APRN, C.N.P., D. N.P. [address] [place] [phone] ([facility]) 05/23/2022 Office Visit Cardiovascular Disease Yonas Wesley M.D. [address] [place] [phone] ([facility]) documented as of this encounter Procedures Procedure [...] for CATHETERIZATION 5:47 PM CDT Heart Disease [place] this procedure Coronary Artery With are in [...] this procedure are in the results section. MI INS TUBE Routine 11/28/2020 Other Pneumothorax Results [...] (12/05/2020 12:09 PM CDT) Analysis Performed At [facility] Signature Glucose, POCT, 190 (H) [...] Provider LAB POCT ORDERABLES-MANUAL Performing Organization Address City/[facility] Phon e Number POC [facility] [address] [place] [address] [place] [address] [place] [facility] 200 [facility] (ABNORMAL) Glucose, POCT (12/05/2020 8:26 AM CDT) Analysis Performed At [facility] logist Time Signature Glucose, POCT, 157 (H) [...] Provider LAB POCT ORDERABLES-MANUAL Performing Organization Address City/[facility] Phon e Number POC [facility] [address] [place] [address] [place] [address] [place] [facility] 200 [facility] (ABNORMAL) CBC with Differential, Blood (12/05/2020 [...] City/State/ZIP Code Phon e Number [facility] - [address] [place] [phone] [facility] [place] [address] [facility] 200 [facility] Basic Metabolic Panel (12/05/2020 6:58 AM [...] 12/05/2020 DTL Black/ mL/min/BSA 8:18 AM CDT [place] Comment: ----ADDITIONAL INFORMATION---- Estimated GFR calculated using [...] City/State/ZIP Code Phon e Number [facility] - [address] [place], [place] [address] [facility] [place] [address] [facility] [address] (ABNORMAL) Glucose, POCT [...] Provider LAB POCT ORDERABLES-MANUAL Performing Organization Address City/[facility] Code Phon e Number POC [facility] [address] [place] [address] [place] [address] [place] [facility] [address] Glucose, POCT (12/04/2020 [...] Provider LAB POCT ORDERABLES-MANUAL Performing Organization Address City/[facility] Phon e Number POC [facility] [address] [place] [address] [place] [address] [place] [facility] [address] [facility] (ABNORMAL) Glucose, POCT (12/04/2020 12:37 PM CDT) [...] Provider LAB POCT ORDERABLES-MANUAL Performing Organization Address City/[facility] Phon e Number POC [facility] [address] [place] [address] [place] [address] [place] [facility] [address] Glucose, POCT (12/04/2020 7:44 AM CDT) Analysis Performed At Patho logis Time Signature Glucose, POCT, 116 70 - 140 12/04/2020 [facility] B mg/dL 7:53 AM CDT Site Capillary 12/04/2020 [facility] 7:53 AM CDT Last Intake > 4 hours 12/04/2020 [facility] 7:53 AM CDT Specimen Anatomical Collection Method Collection Time Receive d Time (Source) Location / / Volume Laterality Blood 12/04/2020 7:44 AM 7:53 CDT AM CDT Unknown Provider LAB POCT ORDERABLES-MANUAL Performing Organization Address City/[facility] Phon e Number POC [facility] [address] [place] [address] [place] [address] [place] [address] POC 200 [facility] (ABNORMAL) Glucose, POCT (12/03/2020 9:24 PM CDT) Analysis Performed At [facility] Time Signature Glucose, POCT, 187 (H) 70 - 140 12/03/2020 [facility] B mg/dL 9:32 PM CDT Site Capillary 12/03/2020 [facility] 9:32 PM CDT Last Intake 2-3 hours 12/03/2020 [facility] 9:32 PM CDT Specimen Anatomical Collection Method Collection Time Receive d Time (Source) Location / / Volume Laterality Blood 12/03/2020 9:24 PM 9:33 CDT PM CDT Unknown Provider LAB POCT ORDERABLES-MANUAL Performing Organization Address [facility] Phon e Number POC [facility] [address] [place] [address] [place] [address] [place] [facility] 200 [facility] (ABNORMAL) Glucose, POCT (12/03/2020 5:20 PM [...] Provider LAB POCT ORDERABLES-MANUAL Performing Organization Address City/[facility] Code Phon e Number POC [facility] [address] [place] [address] [place] [address] [place] [facility] 200 [facility] (ABNORMAL) Glucose, POCT (12/03/2020 11:04 AM [...] Provider LAB POCT ORDERABLES-MANUAL Performing Organization Address City/[facility] Phon e Number POC [facility] [address] [place] [address] [place] [address] [place] [facility] 200 [facility] DX Chest AP or PA and [...] Address City/State/ZIP Code Phon e Number POC [facility] [address] [place] [address] [facility] [place] [address] [place] [facility] 200 [facility] (ABNORMAL) CBC with Differential, Blood (12/03/2020 6:34 AM CDT) Patholo gist Method Time Signature Hemoglobin 12.4 (L) [...] City/State/ZIP Code Phon e Number [facility] - [address] [place] [phone] [facility] [place] [address] [facility] 200 [facility] Basic Metabolic Panel (12/03/2020 6:34 AM [...] 12/03/2020 DTL Black/ mL/min/BSA 8:01 AM CDT [place] Comment: ----ADDITIONAL INFORMATION---- Estimated GFR calculated using [...] City/State/ZIP Code Phon e Number [facility] - [address] [place], [place] [address] [facility] [place] [address] [facility] [address] [facility] SARS-CoV-2 Nucleocapsid Total Ab, S (12/03/2020 6:33 AM CDT) [facility] Method Time Signature SARS-CoV-2 Negative Negative [...] was performed using the [employer] [id number] Reagent assay from [employer], which has received Emergency Use Authori zation(EUA) by the U.S. Food and Drug Administration . Fact sheets for this Emergency Use Autho rization (EUA) assay can be found at the following link s: For Healthcare Providers: https://www.fda.gov/media/012420/downloa d For Patients: https://www.fda.gov/media/897412/downloa d Specimen Anatomical Collection Method Collection Time Receive d Time (Source) Location / / Volume Laterality Blood (Blood, 12/03/2020 6:33 AM 12/04/19 4:19 Venous) CDT PM CDT Prince Powers M.D. LAB MICROBIOLOGY - BLOOD ORD ERABLES Performing Organization Address City/[facility]/ZIP Code Phon e Number [facility] - [address] [place], [place] [address] [facility] [place] [address] [facility] 200 [facility] (ABNORMAL) Glucose, POCT (12/02/2020 9:06 PM [...] Provider LAB POCT ORDERABLES-MANUAL Performing Organization Address City/[facility] Phon e Number POC [facility] [address] [place] [address] [place] [address] [place] [facility] [address] [facility] CORONARY ANGIOGRAPHY (12/02/2020 5:47 PM CDT) [...] Pectoris (Stable Angina/Angina Of Exertion) ([facility]) CORONARY DIAGNOSTIC SUMMARY Coronary artery dominance is [...] (12/02/2020 3:25 PM CDT) Analysis Performed At [facility] Signature Glucose, POCT, 104 70 - 140 [...] Address City/State/ZIP Code Phon e Number POC [facility] [address] [place] [address] [facility] [place] [address] [place] [facility] [address] Glucose, POCT (12/02/2020 12:12 PM CDT) Analysis Performed At [facility] Signature Glucose, POCT, 105 70 - 140 12/02/2020 [facility] B mg/dL 12:18 PM CDT Site Capillary 12/02/2020 [facility] 12:18 PM CDT Last Intake > 4 hours 12/02/2020 [facility] 12:18 PM CDT Specimen Anatomical Collection Method Collection Time Receive d Time (Source) Location / / Volume Laterality Blood 12/02/2020 12:12 12/02/2020 PM CDT 12:19 PM CDT Unknown Provider LAB POCT ORDERABLES-MANUAL Performing Organization Address City/[facility] Code Phon e Number POC [facility] [address] [place] [address] [place] [address] [place] [facility] 200 [facility] Glucose, POCT (12/02/2020 8:14 AM CDT) Analysis [...] Provider LAB POCT ORDERABLES-MANUAL Performing Organization Address City/[facility] Code Phon e Number POC [facility] [address] [place] [address] [place] [address] [place] [facility] 200 [facility] DX Chest AP or PA and Lateral 2 Views (12/02/2020 8:00 AM CDT) Anatomical Region Laterality Modality Chest, Thoracic RST LOS, Thoracic ARZ LOS, Thoracic N/A Digital Radiography FLA LOS Specimen (Source) Anatomical Collection Method Collection Time Re ceived Time Location / / Volume Laterality 12/02/2020 8:03 AM CDT Impressions 12/02/2020 8:12 AM CDT Since 12/01/2020, stable appearing left ngdnm-ll-fkworqts pneumothorax without mediastinal shift. Retrocardiac consolidation/atelectasis and [...] EWS IMPRESSION: Since 12/01/2020, stable appearing left gkoxm-lc-ahowhjkn pneumothorax without mediastinal shift. Retrocardiac consolidation/atelectasis and probable trace left pleural effusion . Normal cardiac contour. Right-sided basilar atelectasis without pneumothorax or effusion. Decreased left lateral chest wall subcutaneous emphysema. Prince MÉNDEZ DIAGNOSTIC IMAGING PROCE DUREMMA (ABNORMAL) CBC with Differential, Blood (12/02/2020 7:38 AM CDT) [facility] Method Time Signature Hemoglobin 11.9 (L) [...] City/State/ZIP Code Phon e Number [facility] - [address] [place], [place] [address] [facility] [place] [address] [facility] 200 [facility] Basic Metabolic Panel (12/02/2020 7:38 AM [...] 12/02/2020 DTL Black/ mL/min/BSA 8:30 AM CDT [place] Comment: ----ADDITIONAL INFORMATION---- Estimated GFR calculated using [...] City/State/ZIP Code Phon e Number [facility] - [address] [place], [place] [address] [facility] [place] [address] [facility] [address] (ABNORMAL) Glucose, POCT [...] Provider LAB POCT ORDERABLES-MANUAL Performing Organization Address City/[facility]/ZIP Code Phon e Number POC [facility] [address] [place] [address] [facility] [place] [address] [place] [facility] [address] [facility] Glucose, POCT (12/01/2020 5:31 PM CDT) Analysis [...] Address City/State/ZIP Code Phon e Number POC [facility] [address] [place] [address] [facility] [place] [address] [place] [facility] [address] DX Chest [...] a telectasis. Constantino Arellano IMG DIAGNOSTIC IMAGING [facility] Glucose, POCT (12/01/2020 11:35 AM CDT) Analysis [...] Provider LAB POCT ORDERABLES-MANUAL Performing Organization Address City/[facility]/ZIP [facility] Phon e Number POC [facility] [address] [place] [address] [place] [address] [place] [facility] [address] (ABNORMAL) Glucose, [...] Address City/State/ZIP Code Phon e Number [facility]OC [facility] [address] [place] [address] [facility] [place] [address] [place] [facility] [address] DX Chest [...] M.D. LAB BLOOD ADD-ON Performing Organization Address [facility] Phon e Number [facility] - [address] Prothrombin Time (PT) (12/01/2020 7:04 AM [...] M.D. LAB BLOOD ADD-ON Performing Organization Address City/[facility] Phon e Number [facility] - [id number] [place] [address] (ABNORMAL) CBC without Differential (12/01/2020 7:04 AM [...] City/State/ZIP Code Phon e Number [facility] - [address] [place] [address] [facility] [place] [address] [facility] 200 [facility] (ABNORMAL) Basic Metabolic Panel (12/01/2020 7:04 [...] 12/01/2020 DTL Black/ mL/min/BSA 8:35 AM CDT [place] Comment: ----ADDITIONAL INFORMATION---- Estimated GFR calculated using [...] City/State/ZIP Code Phon e Number [facility] - [address] [place], [place] [address] [facility] [place] [address] [facility] 200 [facility] (ABNORMAL) Glucose, POCT (11/30/2020 9:55 PM [...] Address City/State/ZIP Code Phon e Number POC [facility] [address] [place] [address] [place] [address] [place] [facility] 200 [facility] pH, Urine (11/30/2020 5:43 PM CDT) P athologist Signature pH, U 5.3 4.5 - 8.0 11/30/2020 8:56 DTL PM CDT Specimen Anatomical Collection Method Collection Time Receive d Time (Source) Location / / Volume Laterality Urine 11/30/2020 5:43 PM 6:06 CDT PM CDT Esthela Ryder M.D. LAB URINE ORDERABLES Performing Organization Address City/State/ZIP Code Phon e Number [facility] - [address] [place] [address] 05 [place] [address] [facility] 200 [facility] (ABNORMAL) Microscopic Automated (11/30/2020 5:43 PM [...] City/State/ZIP Code Phon e Number [facility] - [address] [place] [address] 05 [place] [address] [facility] 200 [facility] Osmolality, Urine (11/30/2020 5:43 PM CDT) P athologist Signature Osmolality, U 492 150 - 1150 11/30/2020 DTL mOsm/kg 8:56 PM CDT Specimen Anatomical Collection Method Collection Time Receive d Time (Source) Location / / Volume Laterality Urine 11/30/2020 5:43 PM 6:06 CDT PM CDT Etshela Ryder M.D. LAB URINE ORDERABLES Performing Organization Address [facility] Phon e Number [facility] - [address] [place], [place] [address] [facility] [place] [address] [address] (ABNORMAL) Dipstick, Urine (11/30/2020 5:43 PM CDT) PathIM-Sense Method Time Signature Hemoglobin, Small (A) Negative [...] M.D. LAB URINE ORDERABLES Performing Organization Address City/[facility] Phon e Number [facility] - [address] [place], [place] [address] [facility] [place] [address] [address] Urinalysis with Microscopic: Urine, Midstream (11/30/2020 5:43 PM CDT) [employer] Method Time Signature Source Urine, Urine, 11/30/2020 [...] LAB URINE ORDERABLES Performing Organization Address City/State/ZIP [facility] Phon e Number [facility] - [address] [place], [place] [address] [facility] [place] [address] [facility] 200 [facility] (ABNORMAL) Glucose, POCT (11/30/2020 5:20 PM CDT) [...] Provider LAB POCT ORDERABLES-MANUAL Performing Organization Address City/[facility] Phon e Number POC [facility] [address] [place] [address] [facility] [place] [address] [place] [facility] 200 [facility] (ABNORMAL) Glucose, POCT (11/30/2020 11:41 AM [...] Provider LAB POCT ORDERABLES-MANUAL Performing Organization Address City/[facility]/ZIP Code Phon e Number [facility]OC [facility] [address] [place] [address] [place] [address] [place] [facility] 200 [facility] (ABNORMAL) Glucose, POCT (11/30/2020 7:35 AM [...] Provider LAB POCT ORDERABLES-MANUAL Performing Organization Address City/[facility] Phon e Number POC [facility] [address] [place] [address] [place] [address] [place] [facility] 200 [facility] Calcium, Ionized (11/30/2020 12:06 AM CDT) P athologist Signature Calcium, 4.85 4.57 - 5.43 11/30/2020 DTL Ionized, S mg/dL 1:20 AM CDT Comment: ----ADDITIONAL INFORMATION---- This test has been modified from the man rikar's instructions. Its performance characteri stics were determined by [facility] in a manner co nsistent with [...] LAB BLOOD NON ADD-ON Performing Organization Address City/[facility] Phon e Number [facility] - [address] Phosphorus Inorganic (11/30/2020 12:06 AM CDT) P athologist Signature Phosphorus 3.6 2.5 - 4.5 11/30/2020 DTL (Inorganic), S mg/dL 1:17 AM CDT Specimen Anatomical Collection Method Collection Time Receive d Time (Source) Location / / Volume Laterality Blood (Blood, 11/30/2020 12:06 11/30/2020 Venous) AM CDT 12:45 AM CDT Aniyah Roberson M.D. LAB BLOOD ADD-ON Performing Organization Address City/[facility] Phon e Number [facility] - [address] Magnesium (11/30/2020 12:06 AM CDT) P athologist Signature Magnesium, S 1.8 1.7 - 2.3 11/30/2020 DTL mg/dL 1:17 AM CDT Specimen Anatomical Collection Method Collection Time Receive d Time (Source) Location / / Volume Laterality Blood (Blood, 11/30/2020 12:06 11/30/2020 Venous) AM CDT 12:45 AM CDT Aniyah Roberson M.D. LAB BLOOD ADD-ON Performing Organization Address City/[facility] Phon e Number [facility] - [address] [place], [place] [address] [facility] [address] (ABNORMAL) CBC with Differential, Blood (11/30/2020 [...] City/State/ZIP Code Phon e Number [facility] - 200 [place], [place] [address] [facility] [place] [address] [facility] 200 [facility] Basic Metabolic Panel (11/30/2020 12:06 AM [...] 11/30/2020 DTL Black/ mL/min/BSA 1:17 AM CDT [place] Comment: ----ADDITIONAL INFORMATION---- Estimated GFR calculated using [...] City/State/ZIP Code Phon e Number [facility] - [address] [place], [place] [address] [facility] [place] [address] [facility] [address] (ABNORMAL) Glucose, POCT (11/29/2020 10:17 PM CDT) [...] Provider LAB POCT ORDERABLES-MANUAL Performing Organization Address City/[facility] Phon e Number POC [facility] [address] [place] [address] [place] [address] [place] [facility] 200 [facility] (ABNORMAL) Glucose, POCT (11/29/2020 6:09 PM [...] Provider LAB POCT ORDERABLES-MANUAL Performing Organization Address [facility] Phon e Number [facility]OC [facility] [address] [place] [address] [place] [address] [place] [facility] 200 [facility] (ABNORMAL) Glucose, POCT (11/29/2020 12:20 PM [...] Provider LAB POCT ORDERABLES-MANUAL Performing Organization Address City/[facility]/ZIP [facility] Phon e Number [facility]OC [facility] [address] [place] [address] [place] [address] [facility] 200 [facility] (TTE) 2D ECHO DOPPLER COLOR AND [...] Echocardiography Contra st Administration Protocol Reference Document [id number]. Patient met an inclusion cri terion and did not have contraindications in screening sections. For the complete report, see the [employer] Documents. Narrative 11/29/2020 4:30 PM CDT For the complete report, see the [employer] Documents. Final Impressions 1. Mildly enlarged left [...] effusion. 6. No previous studies available for [employer] son. Procedure Note Guerda Calix M.D., Ph.D. - [...] effusion. 6. No previous studies available for [employer] son. Findings Echo performed in the ICU with [...] Echocardiography Contra st Administration Protocol Reference Document [id number]. Patient met an inclusion cri terion and [...] Address City/State/ZIP Code Phon e Number [facility] [address] [place] [address] [facility] [place] [address] [place] [facility] [address] (ABNORMAL) CBC without [...] City/State/ZIP Code Phon e Number [facility] - [address] [place] [address] [address] [facility] [place] [address] [facility] [address] [facility] (ABNORMAL) Basic Metabolic Panel (11/29/2020 3:46 AM [...] 11/29/2020 DTL Black/ mL/min/BSA 5:00 AM CDT [place] Comment: ----ADDITIONAL INFORMATION---- Estimated GFR calculated using [...] LAB BLOOD ADD-O N Performing Organization Address City/[facility] [place]/[facility] Phon e Number [facility] - [address] [place] [address] Laboratories-[address] Phosphorus Inorganic (11/29/2020 3:46 AM CDT) P athologist Signature Phosphorus 3.0 2.5 - 4.5 11/29/2020 DTL (Inorganic), S mg/dL 5:00 AM CDT Specimen Anatomical Collection Method Collection Time Receive d Time (Source) Location / / Volume Laterality Blood (Blood, 11/29/2020 3:46 AM 11/30/19 4:22 Venous) CDT AM CDT Colt Marcelo APRN.N.P., D.N.P. LAB BLOOD ADD-O N Performing Organization Address City/[facility] [place]/[facility] Phon e Number [facility] - [address] [place] [address] Laboratories[address] Benzodiazepines Confirmation, Urine (11/28/2020 10:35 PM [...] PM CDT Triazolam by Negative Cutoff: 12/01/2020 [facility] LC-MS/MS 10 ng/mL 3:47 PM CDT Alpha-Hydroxy Negative Cutoff: 12/01/2020 [facility] Triazolam by 10 ng/mL 3:47 PM CDT LC-MS/MS Zolpidem by LC-MS/MS Negative Cutoff: 12/01/2020 [facility] 10 ng/mL 3:47 PM CDT Zolpidem Negative Cutoff: 12/01/2020 [facility] [id number]-[id number] 10 ng/mL 3:47 PM CDT acid by LC-MS/MS Benzodiazepines Positive. 12/01/2020 [facility] Interpretation 3:47 PM CDT Comment: ----ADDITIONAL INFORMATION---- This report is intended for use in clini tio monitoring and management of patients. ??It is not intended for use i n employment-related testing. This test was developed and its performa nce characteristics determined by [facility] in a manner consistent with CLIA [...] City/State/ZIP Code Phon e Number [facility] [address] [place], [place] [address] SUPPORT CENTER [facility] [place] [address] Laboratory Medicine and Pathology [address] [place] (ABNORMAL) Drug Abuse Survey with Confirmation, Panel 9, Urine (11/28/2020 10:35 PM CDT) Component Value Ref Test Analysis Performed At [facility] Range Method Time Signature Alcohol Negative [...] from the man rikar's instructions. Its performance characteristics were determi craig by [facility] in a manner consistent with CLIA [...] City/State/ZIP Code Phon e Number [facility] [address] [address] [place], [place] [address] SUPPORT [facility]ENTER [facility] [place] [address] Laboratory Medicine and Pathology [address] [place] Drug Screen, Prescription/OTC, Urine (11/28/2020 10:35 PM CDT) [facility] Method Time Signature Drugs Acetaminophen. Fentanyl. 11/30/2020 [facility] detected: 10:55 AM The following [...] performa nce characteristics determined by [facility] in a manner consistent with CLIA [...] City/State/ZIP Code Phon e Number [facility] [address] [address] [place] [address] SUPPORT CENTER [facility] [place] [address] Laboratory Medicine and Pathology [address] [place] (ABNORMAL) Glucose, POCT (11/28/2020 9:40 PM CDT) Analysis Performed At [facility] Time Signature Glucose, POCT, 183 (H) 70 [...] Address City/State/ZIP Code Phon e Number POC [facility] [address] [place] [address] PCLX [facility] [place] [address] [place] [facility] [address] Osmolality, Urine (11/28/2020 9:26 PM CDT) athologist Signature Osmolality, U 571 150 - 1150 11/28/2020 DTL mOsm/kg 11:17 PM CDT Specimen Anatomical Collection Method Collection Time Receive d Time (Source) Location / / Volume Laterality Urine 11/28/2020 9:26 PM 9:51 CDT PM CDT Colt Cutler APRN.N.P. LAB URINE ORDERABLES Performing Organization Address [facility] [place] Phon e Number [facility] - 200 [place] [address] 05 [facility] [place] [id number] [address] pH, Urine (11/28/2020 9:26 PM CDT) P athologist Signature pH, U 5.0 4.5 - 8.0 11/28/2020 11:17 DTL PM CDT Specimen Anatomical Collection Method Collection Time Receive d Time (Source) Location / / Volume Laterality Urine 11/28/2020 9:26 PM 9:51 CDT PM CDT Colt Cutler APRN.N.P. LAB URINE ORDERABLES Performing Organization Address City/[facility] [place]/[facility] Phon e Number [facility] - [address] (ABNORMAL) Microscopic Automated (11/28/2020 9:26 PM [...] APRN.N.P. LAB URINE ORDERABLES Performing Organization Address [facility] [place]/[facility] Phon e Number [facility] - 200 [place] [id number] [address] (ABNORMAL) Dipstick, Urine (11/28/2020 9:26 PM CDT) [facility] [employer] Method Time Signature Hemoglobin, Large (A) Negative [...] PM 9:51 CDT PM CDT Rachel Cutler APRNN.Roger. LAB URINE ORDERABLES Performing Organization Address [facility] [place]/[facility] Phon e Number [facility] - [address] [place] [address] [place] [address] (ABNORMAL) Urinalysis with Microscopic: Urine, Midstream (11/28/2020 9:26 PM CDT) [facility] [employer] Method Time Signature Source Urine, Urine, 11/28/2020 [...] C.N.P. LAB URINE ORDERABLES Performing Organization Address City/[facility]/ZIP Code Phon e Number [facility] - [address] D[place] [address] (ABNORMAL) Troponin T, 5th Generation (11/28/2020 7:52 PM CDT) P athologist Signature Troponin T, 109 (H) <=15 ng/L 11/28/[address] [facility] 5th gen 8:16 PM CDT Comment: Consider acute myocardial injur y Specimen Anatomical Collection Method Collection Time Receive d Time (Source) Location / / Volume Laterality Blood (Blood, 11/28/2020 7:52 PM 11/29/19 7:57 Venous) CDT PM CDT Norma Sanchez APRN, C.N.P., D.N.P. LAB BLOOD ADD-ON Performing Organization Address City/[facility] [place]/[facility] Phon e Number [facility] - [address] (ABNORMAL) Glucose, POCT (11/28/2020 5:07 PM [...] Address City/State/ZIP Code Phon e Number POC [facility] SERVICES [address] [place] [address] [place] [address] [place] [facility] [address] [facility] Glucose, POCT (11/28/2020 1:28 PM CDT) athologist [...] Provider LAB POCT ORDERABLES-MANUAL Performing Organization Address City/[facility]/ZIP Code Phon e Number [facility] [address] [place] [address] [place] [address] [place] [facility] 200 [facility] Glucose, POCT (11/28/2020 12:46 PM CDT) [...] LAB POCT ORDERABLES-MANUAL Performing Organization Address City/State/ZIP [facility] Phon e Number [facility] [address] [place] [address] [place] [address] [place] [facility] 200 [facility] DX Chest Portable 1 View (11/28/2020 [...] Address City/State/ZIP Code Phon e Number [facility] [address] [place] [address] PCLX [facility] [place] [address] [place] [facility] [address] [facility] (ABNORMAL) Basic Metabolic Panel (11/28/2020 11:12 [...] 11/28/2020 DTL Black/ mL/min/BSA 12:16 PM CDT [place] Comment: ----ADDITIONAL INFORMATION---- Estimated GFR calculated using [...] City/State/ZIP Code Phon e Number [facility] - [address] [place] [address] 05 [facility] [place] [place] [address] [facility] 200 [facility] Patient Status (11/28/2020 11:12 AM CDT) P athologist Signature FIO2 0.40 0.21=AIR 11/28/2020 [facility] 11:17 AM CDT Device Vent 11/28/2020 [facility] 11:17 AM CDT Spont. 20 11/28/2020 [facility] breaths/min 11:17 AM CDT Specimen Anatomical Collection Method Collection Time Receive d Time (Source) Location / / Volume Laterality Blood 11/28/2020 11:12 11/28/2020 AM CDT 11:17 AM CDT [place] Marcelo APRN.N.P., D.N.P. LAB BLOOD NON A DD-ON Performing Organization Address City/State/ZIP Code Phon e Number [facility] - 200 [place], [place] [address] [address] [place] [address] Laboratories[address] (ABNORMAL) Blood Gas without Coox, [...] 11/28/2020 Arterial) AM CDT 11:17 AM CDT [place] Marcelo APRN.N.P., D.N.P. LAB BLOOD NON A DD-ON Performing Organization Address City/State/ZIP Code Phon e Number [facility] - 200 [place], [place] [address] [facility] [place] [address] [address] [place] INS TUBE THORACOSTOMY (11/28/2020 10:51 AM CDT) [...] Address City/State/ZIP Code Phon e Number [facility] [address] [place] [address] P[facility] [place] [address] [place] [facility] [address] DX Chest [...] POC [facility] [address] [place] [address] [place] [address] [place] [facility] [address] (ABNORMAL) Glucose, [...] Provider LAB POCT ORDERABLES-MANUAL Performing Organization Address City/[facility]/ZIP Code Phon e Number [facility] [address] [place] [address] [place] [address] [place] [facility] [address] (ABNORMAL) Glucose, POCT [...] [facility]OC [facility] [address] [place] [address] [place] [address] [place] [facility] [address] DX Chest [...] 11/28/2020 6:30 AM 9:57 CDT AM CDT Arno Seymour APRN, C.N.P. LAB BLOOD ADD-ON Performing Organization Address City/State/ZIP Code Phon e Number [facility] - [address] [place], [place] [address] [facility] [place] [address] [facility] [address] Patient Status (11/28/2020 6:23 AM CDT) P athologist Signature FIO2 0.50 0.21=AIR 11/28/2020 6:27 [facility] AM CDT Device Vent 11/28/2020 6:27 [facility] AM CDT Specimen Anatomical Collection Method Collection Time Receive d Time (Source) Location / / Volume Laterality Blood 11/28/2020 6:23 AM 6:27 CDT AM CDT Sheridan Good APRN, C.N.P. LAB BLOOD NON ADD-ON Performing Organization Address City/[facility] [place]/[facility] Phon e Number [facility] - [address] [place] [address] Calcium, Ionized (11/28/2020 6:23 AM CDT) athologist Signature Calcium, 4.69 4.65 - 5.30 11/28/2020 [facility] Ionized, B mg/dL 6:30 AM CDT Specimen Anatomical Collection Method Collection Time Receive d Time (Source) Location / / Volume Laterality Blood (Blood, 11/28/2020 6:23 AM 11/29/19 6:27 Venous) CDT AM CDT Sheridan Good APRN, C.N.P. LAB BLOOD NON ADD-ON Performing Organization Address City/[facility] [place]/[facility] Phon e Number [facility] - [address] [place] [address] (ABNORMAL) Blood Gas without Coox, Arterial (11/28/2020 [...] 6:30 AM CDT Arterial Art Line [facility]30 AM CDT Comment: Herrera's test not done. Specimen Anatomical Collection Method Collection Time Receive d Time (Source) Location / / Volume Laterality Blood (Blood, 11/28/2020 6:23 AM 11/29/19 6:27 Arterial) CDT AM CDT Sheridan Good APRN, C.N.P. LAB BLOOD NON ADD-ON Performing Organization Address City/State/ZIP Code Phon e Number [facility] - 200 [place], [place] [address] [facility] [place] [address] [facility] 200 [facility] (ABNORMAL) CBC with Differential, Blood (11/28/2020 6:22 AM CDT) [facility] gist Method Time Signature Hemoglobin 13.8 13.2 [...] City/State/ZIP Code Phon e Number [facility] - [address] [place], [place] [address] [place] [address] [facility] [address] (ABNORMAL) CBC with Differential, Blood (11/28/2020 6:22 AM CDT) [facility] Method Time Signature Hemoglobin 12.4 (L) [...] Venous) CDT AM CDT Sheridan Good APRN, [place].N.P. LAB BLOOD ADD-ON Performing Organization Address City/[facility] [place]/[facility] Phon e Number [facility] - [address] [place], [place] [address] [facility] [place] [address] [facility] [address] [facility] (ABNORMAL) Hepatic Function Panel (11/28/2020 6:22 AM [...] LAB BLOOD ADD-ON Performing Organization Address City/State/[facility] Code Phon e Number [facility] - [address] [place], [place] [address] [facility] [place] [address] [facility] [address] [facility] Lactate (11/28/2020 6:22 AM CDT) P athologist Signature Lactate, P 1.5 0.5 - 2.2 11/28/2020 [facility] mmol/L 6:44 AM CDT Specimen Anatomical Collection Method Collection Time Receive d Time (Source) Location / / Volume Laterality Blood (Blood, 11/28/2020 6:22 AM 11/29/19 6:28 Venous) CDT AM CDT Sheridan Good APRN, C.N.P. LAB BLOOD NON ADD-ON Performing Organization Address City/[facility] Code Phon e Number [facility] - 200 [place], [place] [address] [place] [address] (ABNORMAL) Phosphorus Inorganic (11/28/2020 6:22 AM CDT) athologist Signature Phosphorus 5.4 (H) 2.5 - 4.5 11/28/2020 DTL (Inorganic), S mg/dL 7:24 AM CDT Specimen Anatomical Collection Method Collection Time Receive d Time (Source) Location / / Volume Laterality Blood (Blood, 11/28/2020 6:22 AM 11/29/19 7:07 Venous) CDT AM CDT Sheridan Good APRN, C.N.P. LAB BLOOD ADD-ON Performing Organization Address City/[facility] [place]/[facility] Phon e Number [facility] - [address] Magnesium (11/28/2020 6:22 AM CDT) athologist Signature Magnesium, S 2.1 1.7 - 2.3 11/28/2020 DTL mg/dL 7:24 AM CDT Specimen Anatomical Collection Method Collection Time Receive d Time (Source) Location / / Volume Laterality Blood (Blood, 11/28/2020 6:22 AM 11/29/19 7:07 Venous) CDT AM CDT Sheridan Good APRN, C.N.P. LAB BLOOD ADD-ON Performing Organization Address City/State/ZIP Code Phon e Number [facility] - [address] [place] [address] [facility] [address] (ABNORMAL) Basic Metabolic Panel (11/28/2020 6:22 AM [...] CDT eGFR-Black/Afri 89 >=60 11/28/2020 [facility] can [place] mL/min/BSA 6:47 AM CDT Comment: ----ADDITIONAL INFORMATION---- [...] City/State/ZIP Code Phon e Number [facility] - [address] [place], [place] [address] [facility] [place] [address] [facility] 200 [facility] (ABNORMAL) Glucose, POCT (11/28/2020 6:21 AM CDT) athologist Signature Glucose, POCT, 355 (H) 70 - 140 11/28/2020 [facility] B mg/dL 7:02 AM CDT Specimen Anatomical Collection Method Collection Time Receive d Time (Source) Location / / Volume Laterality Blood 11/28/2020 6:21 AM 7:02 CDT AM CDT Unknown Provider LAB POCT ORDERABLES-MANUAL Performing Organization Address City/[facility]/ZIP Code Phon e Number POC [facility] 200 [place] [address] [place] [address] Beta-Hydroxybutyrate (11/28/2020 6:17 AM CDT) athologist Signature Beta-Hydroxybut <0.1 <0.4 mmol/L 11/28/2020 DT yrate, S 11:19 AM CDT Specimen Anatomical Collection Method Collection Time Receive d Time (Source) Location / / Volume Laterality Blood (Blood, 11/28/2020 6:17 AM 11/29/19 21 Venous) CDT 10:02 AM CDT Aron Seymour APRN, C.N.P. LAB BLOOD ADD-ON Performing Organization Address City/[facility]/ZIP Code Phon e Number [facility] - 200 [place], [place] [address] [facility] [place] [address] Chest without IV Contrast (11/28/2020 [...] restrictions (11/28/2020 5:45 AM CDT) Narrative Luis Santoro, R.R.T., L.R.T. - 11/28 5:45 AM CDT Luis Santoro, R.R.T., L.R.T. ? 11/28/2020 ??5:[address] arterial catheter No upper extremi ty site restrictions Date/Time: 11/28/2020 5:45 AM Performed by: Luis Santoro, R.R.T., L.R.T. Authorized by: Hubert Smith M.D. [...] City/State/ZIP Code Phon e Number POC [facility] 200 [place], [place] [address] LABS [facility] [place] [address] [place] [facility] [address] [place] [address] Arterial Blood Gas and Electrolytes, POCT (11/28/2020 [...] Organization Address City/State/ZIP Code Phon e Number [facility] - [address] [place] [address] 05 [facility] [place] [place] [address] [facility] 200 [facility] (ABNORMAL) Troponin T, 2H/6H, 5th Gen [...] 11/29/19 5:43 Venous) CDT AM CDT Narrative [facility] - [facility] - 11/28/2020 11:38 AM CDT Specimen Information: Specimen ID: [id number] Specimen Type: Blood Specimen Collection Start Date: ??5:36 AM Specimen Received Date: 11/28/2020 ??5:43 AM Specimen ID: [id number] Specimen Type: Blood Specimen Collection Start Date: 11:12 AM Specimen Received Date: 11/28/2020 11:17 AM Hubert Smith M.D. LAB BLOOD TROPONIN Performing Organization Address City/State/ZIP Code Phon e Number [facility] - [address] [place], [place] [address] [facility] [place] [address] [facility] [address] [facility] (ABNORMAL) Glucose, POCT (11/28/2020 5:33 AM CDT) P athologist Signature Glucose, POCT, 409 (H) 70 - 140 11/28/2020 [facility] B mg/dL 5:35 AM CDT Site ARTLINE 11/28/2020 [facility] 5:35 AM CDT Specimen Anatomical Collection Method Collection Time Receive d Time (Source) Location / / Volume Laterality Blood 11/28/2020 5:33 AM 5:35 CDT AM CDT Unknown Provider LAB POCT ORDERABLES-MANUAL Performing Organization Address City/[facility]/ZIP Code Phon e Number [facility] [address] [place] [address] [place] [address] [facility] [address] [facility] Glucose, POCT (11/28/2020 5:29 AM CDT) Analysis Performed At Patho logist Time Signature Glucose, POCT, Collected DEFAULT 11/28/2020 [facility] B 5:29 AM CDT Specimen Anatomical Collection Method Collection Time Receive d Time (Source) Location / / Volume Laterality Blood (Blood, 11/28/2020 5:29 AM 11/29/19 5:29 Capillary) CDT AM CDT Hubert Smith M.D. LAB POCT ORDERABLES-MANUAL Performing Organization Address City/[facility]/ZIP Code Phon e Number [facility] - [address] [place], [place] [address] [place] [address] Glucose, POCT (11/28/2020 5:29 AM CDT) Analysis Performed At Patho logist Time Signature Glucose, POCT, Collected DEFAULT 11/28/2020 [facility] B 5:29 AM CDT Specimen Anatomical Collection Method Collection Time Receive d Time (Source) Location / / Volume Laterality Blood (Blood, 11/28/2020 5:29 AM 11/29/19 5:29 Capillary) CDT AM CDT Hubert Smith M.D. LAB POCT ORDERABLES-MANUAL Performing Organization Address City/[facility]/ZIP Code Phon e Number [facility] - [address] [place] [address] Glucose, POCT (11/28/2020 5:29 AM CDT) Analysis [facility] Signature Glucose, POCT, Collected DEFAULT 11/28/2020 [facility] B 5:29 AM CDT Specimen Anatomical Collection Method Collection Time Receive d Time (Source) Location / / Volume Laterality Blood (Blood, 11/28/2020 5:29 AM 11/29/19 5:29 Capillary) CDT AM CDT Hubert Smith M.D. LAB POCT ORDERABLES-MANUAL Performing Organization Address City/State/ZIP Code Phon e Number [facility] - [address] [place] [id number] [place] [address] (ABNORMAL) Venous Blood Gas and Electrolytes CG8+, [...] B 62 Not Applicable mm Hg 11/29/19 21 7:00 [...] POCT ORDERABLES - DEVICE Performing Organization Address City/[facility] [place]/[facility] Phon e Number [facility]OC [facility] 200 [place], [place] [address] [place] [address] [place] [facility] [address] [place] [address] Bacteria / Anabela Culture, Blood # 2 [...] - GENERAL O RDERABLES Performing Organization Address [facility] Phon e Number [facility] - 200 [place], [place] [address] 05 [facility] [place] [address] [facility] 200 [facility] Venous Blood Gas and Electrolytes, POCT [...] POCT ORDERABLES - DEVICE Performing Organization Address City/[facility] Phon e Number [facility] - 200 [place], [place] [address] [facility] SML[place] [id number] [address] Bacteria / Anabela Culture, Blood #1 (11/28/2020 5:02 AM CDT) Patholo gist Method Time Signature Bacteria/Christina No growth 12/03/2020 D[facility] da Culture, after 5 7:02 AM CDT Blood days of incubation. Specimen (Source) Anatomical Collection Method Collection Time Re ceived Time Location / / Volume Laterality Blood (Blood, 11/28/2020 5:02 11/28/2020 6:22 Peripheral Draw) AM CDT AM CDT Comment: Specimen Source Site: [facility] Krystian Cason M.D. LAB MICROBIOLOGY - GENERAL O RDERABLES Performing Organization Address City/[facility] Code Phon e Number [facility] - [address] Beta-Hydroxybutyrate (11/28/2020 5:02 AM CDT) P athologist Signature Beta-Hydroxybut <0.1 <0.4 mmol/L 11/28/2020 [facility] yrate, S 6:05 AM CDT Specimen Anatomical Collection Method Collection Time Receive d Time (Source) Location / / Volume Laterality Blood (Blood, 11/28/2020 5:02 AM 11/29/19 5:40 Venous) CDT AM CDT Hubert Smith M.D. LAB BLOOD ADD-ON Performing Organization Address [facility] Phon e Number [phone] [place] [address] DX Chest Portable 1 View (11/28/2020 4:28 [...] Krystian Cason M.D. IMG DIAGNOSTIC IMAGING PROCE [facility] SARS Coronavirus 2, PCR Rapid, V Symptomatic (11/28/2020 4:28 AM CDT) [facility] Method Time Signature SARS CoV-2, Undetected Undetected 11/28/2020 [facility] PCR, Rapid, V 5:01 AM CDT Comment: ----ADDITIONAL INFORMATION---- This RT-PCR test was performed using the Didi SARS-CoV-2 and Influenza A/B Reagent assay from [employer], which has received Emergency Use Authori zation(EUA) by the U.S. Food and Drug Administration . Fact sheets for this Emergency Use Autho rization (EUA) assay can be found at the following link s: For Healthcare Providers: https://www.fda.gov/media/914224/downloa d For Patients: https://www.fda.gov/media/709348/downloa d SARS Coronavirus 2, Source, Rapid Swab, Nasopharynx 11/28/2020 4:32 AM CDT [facility] Specimen Anatomical Collection Method Collection Time Receive d Time (Source) Location / / Volume Laterality Varies 11/28/2020 4:28 AM 4:32 (Nasopharynx) CDT AM CDT Hubert Smith M.D. LAB MICROBIOLOGY - GENERAL O RDERABLES Performing Organization Address City/State/ZIP Code Phon e Number [facility] - [address] [place], [place] [address] [facility] [place] [address] [facility] [address] Chest Tube [...] yes Tube connected to drainage device at: ia ter seal Drainage characteristics: air Ultrasound image [...] Lactate, POCT (11/28/2020 4:14 AM CDT) athologist [facility] [place] Lactate, POCT 1.65 0.50 - 11/28/2020 PCLX 2.20 4:51 AM CDT mmol/L Sample Site, [facility] 11/28/2020 PCLX POCT 4:51 AM CDT Specimen Anatomical Collection Method Collection Time Receive d Time (Source) Location / / Volume Laterality Blood 11/28/2020 4:14 AM 4:51 CDT AM CDT Unknown Provider LAB POCT ORDERABLES - DEVICE Performing Organization Address City/State/ZIP Code Phon e Number POC [facility] [address] [place] [address] PCLX [facility] [place] [address] [place] [facility] 200 [facility] (ABNORMAL) Venous Blood Gas and Electrolytes CG8+, POCT (11/28/2020 4:13 AM CDT) athologist [facility] [place] Sample Site, [facility] 11/28/2020 PCSM POCT 4:51 AM CDT Comment: [...] City/State/ZIP Code Phon e Number POC [facility] [address] [place], [place] [address] LABS PCSM [facility] [place] [address] [place] [facility] [address] [place] [address] DX Chest Portable 1 View (11/28/2020 4:07 [...] rlier today. Hubert MÉNDEZ DIAGNOSTIC IMAGING PROCE DURES DX Chest Portable 1 View (11/28/2020 3:39 [...] the elier. Hubert MÉNDEZ DIAGNOSTIC IMAGING PROCE DURES Lactate, POCT (11/28/2020 3:31 AM CDT) Analysis Performed At Patho logist Time Signature Lactate, POCT Collected DEFAULT 11/28/2020 SMLX 3:31 AM CDT Specimen Anatomical Collection Method Collection Time Receive d Time (Source) Location / / Volume Laterality Blood (Blood, 11/28/2020 3:31 AM 11/29/19 3:31 Venous) CDT AM CDT Hubert Smith M.D. LAB POCT ORDERABLES - DEVICE Performing Organization Address [facility] Phon e Number [facility] - 200 [place], [place] [address] [facility] [place] [address] [facility] 200 [facility] Prothrombin Time (PT) (11/28/2020 3:31 AM CDT) P athologist Signature Prothrombin 11.5 9.4 - 12.5 11/28/2020 [facility] Time, P sec 3:49 AM CDT INR 1.0 0.9 - 1.1 11/28/2020 [facility] AM [facility]T Comment: ----ADDITIONAL INFORMATION---- Standard intensity warfarin therapeutic range: 2.0 to 3.0 ?? High intensity warfarin therapeutic rang e: 2.5 to 3.5 Specimen Anatomical Collection Method Collection Time Receive d Time (Source) Location / / Volume Laterality Blood (Blood, 11/28/2020 3:31 AM 11/29/19 21 3:39 Venous) CDT AM CDT Hubert Smith M.D. LAB BLOOD ADD-ON Performing Organization Address City/[facility] Phon e Number [facility] - 200 [place], [place] [address] [facility] [place] [address] [facility] 200 [facility] Magnesium (11/28/2020 3:31 AM CDT) P athologist Signature Magnesium, S 2.1 1.7 - 2.3 11/28/2020 [facility] mg/dL 4:24 AM CDT Specimen Anatomical Collection Method Collection Time Receive d Time (Source) Location / / Volume Laterality Blood (Blood, 11/28/2020 3:31 AM 11/29/19 21 4:02 Venous) CDT AM CDT Hubert Smith M.D. LAB BLOOD ADD-ON Performing Organization Address City/[facility] Phon e Number [facility] - [address] [place] [address] [facility] [place] [address] (ABNORMAL) Troponin T, Baseline, 5th gen (11/28/2020 3:31 AM CDT) P athologist Signature Troponin T, 60 (H) <=15 ng/L 11/28/2020 [facility] Baseline, 5th 3:56 AM CDT gen Specimen Anatomical Collection Method Collection Time Receive d Time (Source) Location / / Volume Laterality Blood (Blood, 11/28/2020 3:31 AM 11/29/19 3:40 Venous) CDT AM CDT Hubert Smith M.D. LAB BLOOD TROPONIN Performing Organization Address [facility] Phon e Number [facility] - [address] [place] [address] 05 [place] [address] (ABNORMAL) Hepatic Function Panel (11/28/2020 3:31 [...] City/State/ZIP Code Phon e Number [facility] - [address] [place], [place] [address] [facility] [place] [address] [facility] [address] (ABNORMAL) NT-Pro B-Type [...] Blood (Blood, 11/28/2020 3:31 AM 11/29/19 21 3:39 Venous) CDT AM CDT Hubert Smith M.D. LAB BLOOD ADD-ON Performing Organization Address City/State/ZIP Code Phon e Number [facility] - [address] [place], [place] [address] [facility] [place] [address] [facility] 200 [facility] (ABNORMAL) Basic Metabolic Panel (11/28/2020 3:31 AM [...] CDT eGFR-Black/Afri >90 >=60 11/28/2020 [facility] can [place] mL/min/BSA 4:31 AM CDT Comment: REVISED RESULTS [...] City/State/ZIP Code Phon e Number [facility] - [address] [place], [place] [address] [place] [address] [facility] 200 [facility] CBC with Differential, Blood (11/28/2020 3:31 AM CDT) athologist Signature Hemoglobin CANCELED 13.2 - 16.6 11/28/[address] [facility] g/dL 6:12 AM CDT Comment: REVISED RESULTS ----PREVIOUSLY REPORTED ---- 13.9, Flagged as: Normal (Reported 11/28/2020 03:42) Hematocrit CANCELED 38.3 - 48.6 % 11/28/2020 6:12 AM CDT [facility] Comment: REVISED RESULTS ----PREVIOUSLY REPORTED ---- 44.7, Flagged as: Normal (Reported 11/28/2020 03:42) Erythrocytes CANCELED 4.35 - 5.65 x10(12)/L 11/28/2020 6:[address] [facility] Comment: REVISED RESULTS ----PREVIOUSLY REPORTED ---- 4.97, Flagged as: Normal (Reported 11/28/2020 03:42) MCV CANCELED 78.2 - 97.9 fL 11/28/2020 6:12 AM CDT [facility] Comment: REVISED RESULTS ----PREVIOUSLY REPORTED ---- 89.9, Flagged as: Normal (Reported 11/28/2020 03:42) RBC Distrib Width CANCELED 11.8 - 14.5 % 11/28/2020 6:[address] [facility] Comment: REVISED RESULTS ----PREVIOUSLY REPORTED [...] 21 3:40 Venous) CDT AM CDT Narrative [facility] - 11/28/2020 6:12 AM CDT CBC with Differential, B was cancelled on 11/28/2020 at 06:12; Duplicate test request. !CNCL! Hubert Smith M.D. LAB BLOOD ADD-ON Performing Organization Address City/State/ZIP Code Phon e Number [facility] - [address] [place], [place] [address] [facility] [place] [address] [place] [address] [facility] 200 [facility] Blood Gas, Venous, POCT (11/28/2020 3:31 [...] POCT ORDERABLES - DEVICE Performing Organization Address City/[facility]/ZIP Code Phon e Number [facility] - [address] [place], [place] [address] [facility] [place] [address] [facility] 200 [facility] (ABNORMAL) Lactate, POCT (11/28/2020 3:29 AM [...] Address City/State/ZIP Code Phon e Number POC [facility] [address] [place] [address] PCLX [facility] [place] [address] (ABNORMAL) Venous Blood Gas and Electrolytes [...] / Volume Laterality Blood 11/28/2020 3:28 AM 1 3:43 CDT AM CDT Unknown Provider LAB POCT ORDERABLES - DEVICE Performing Organization Address City/State/ZIP Code Phon e Number POC [facility] [address] [place], [place] [address] LABS PCSM [facility] [place] [address] [place] [facility] [address] ECG 12 Lead (11/28/2020 3:24 AM CDT) P athologist Signature Ventricular Rate 115 BPM MUSE ECG/Min MI Interval 140 ms MUSE QRSD Interval 92 ms MUSE QT Interval 334 ms MUSE QTC Interval 462 ms MUSE P Junction 76 degrees MUSE R Junction 64 degrees MUSE T Wave [place] 78 degrees MUSE Specimen Anatomical Collection Method [...] Signature Ventricular Rate 115 BPM MUSE ECG/Min MI Interval 140 ms MUSE QRSD Interval 92 ms MUSE QT Interval 334 ms MUSE QTC Interval 462 ms MUSE P [place] 76 degrees MUSE R [place] 64 degrees MUSE T [place] 78 degrees MUSE Specimen Anatomical Collection Method [...] Address City/State/ZIP Code Phon e Number POC [facility] [address] [place] [address] PCLX [facility] [place] [address] [place] [facility] [address] (ABNORMAL) Blood Gas and Electrolytes CG8+, Point of Care, [facility], Vascular Access Glass Forming Engineer (11/28/2020 3:02 AM CDT) athologist Signature Sample Site, [facility] 12/01/2020 PCLX [...] Address City/State/ZIP Code Phon e Number POC [facility] [address] [place] [address] PCLX [facility] [place] [address] [place] [facility] [address] documented in this encounter Visit Diagnoses Diagnosis Edema Pulmonary (HCC) - Primary Edema Pulmonary (HCC) Other Pneumothorax Myocardial Infarction 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 Angina Pectoris (Stable Angina/Angina Of Exertion) (HCC) Acute Respiratory Failure With Hypoxia ( HCC) Hypoxemia Diabetes Mellitus Type 2 Hyperglycemia ( HCC) Hypertension Essential Primary Coronary Stent Status Post Acute Respiratory Failure With Hypercapn ia (HCC) Acute Respiratory Failure With Hypoxia ( HCC) Atherosclerotic Heart Disease [place] Cor onary Artery With Other Forms Angina Pectoris (Stable Angina/Angina Of Exertion) (HCC) Pneumothorax Unspecified Atherosclerotic Heart Disease [place] Cor onary Artery With Other Forms Angina Pectoris (Stable Angina/Angina Of Exertion) (HCC) documented in this encounter Admitting Diagnoses Diagnosis Edema Pulmonary (HCC) Atherosclerotic Heart Disease [place] Cor onary Artery With Other Forms Angina [...] over 12 Hours, Daily, First dose on 11/28/20 at 1245, Remove after 12 hours. Medication [...] Given 12/02/2020 5:15 PM CDT 0.5 mg mhepzeodmzzl-zyfc-YO-Ca-minerals 400 mcg Given 12/05/2020 8:32 A M [...] Luis Bautista R.N.)0908 (Given - Provider: Linda JohnsonSKristin, R.N., CNL)1524 (Not Given - Provider: Linda JohnsonSKristin, R.N., CNL - Reason: Patient/family refused) 0248 (Given - Provider: Leora hunter RLisaNLisa)0946 (Given - Provider: Linda JohnsonS.Jessica, R.N., CNL)1547 (Given - Provider: Katelyn Johnson, R.N., CNL)2144 (Given - Provider: Leora Cho R.N.) 0323 [...] (PLAVIX) 0800 (Given - Provid er: Linda JohnsonSKristin, R.N., CNL) 0803 (Given - Provider: Linda JohnsonSKristin, R.N., CNL) 0832 (Given - Provider: Sydni Sun R.N.) 75 mg, oral, Daily, First dose on Sat12/03/20 at 0900 heparin (porcine) injection 5,000 Units 0626 (Given - Provider: Luis Bautista RLisaNLisa)1409 (Given - Provider: Linda JohnsonSLisaNLisa, R.N., CNL)212 (Given - Provider: Leora Cho R.N.) 0635 (Given - Provider: Leora Cho R.N.)1548 (Given - Provider: Jim Bradley M.S.NLisa, R.NLisa, MARCOSL)2145 (Given - Provider: Leora Cho R.N.) 0623 (Given - Provider: Leora Cho R.N.)1435 (Given - Provider: Sydni Sun R.N.) 5,000 Units, subcutaneous, Every 8 hours scheduled, First dose on Sat11/28/20 at 1400 insulin aspart U-100 (Carbohydrate Count ) injection 0-20 Units (NovoLOG FlexPen) 0901 (Given - Provider: Linda JohnsonS.NLisa, R.N., CNL)1304 (Given - Provider: Jim Bradley M.S.NLisa, R.NLisa, CNL - Comment: ordered late)1928 (Given - Provider: Leora Cho R.N. - Comment: eating dinner now) 0904 (Given - Provider: Jim Bradley M.S.NLisa, R.NLisa, CNL)1238 (Given - Provider: Katelyn Johnson, R.NLisa, CNL)1934 (Given - Provider: Leora Cho [...] not met)1107 (Given - Provider: Linda JohnsonS.NLisa, R.NLisa, CNL)1924 (Given - Provider: Leora Cho R.N. - Comment: eating dinner now) 0801 (Not Given - Provider: Katelyn Johnson, R.NLisa, [place] - Reason: Order parameters not met)1235 (Given - Provider: Katelyn Johnson, R.NLisa, CNL) 0900 (Not Given - Provider: Sydni [...] 1501 (Given - Provider: Jim Bradley M.S.NLisa, R.N., [place]) 25 mg, oral, Once, On Sat12/03/20 at 1230, For 1 dose losartan tablet 50 mg (COZAAR) (CANCELED) 0800 (Given - Provider: Katelyn Johnson, R.NLisa, [place]) 50 mg, oral, Daily, First dose (after last modification) on Sat11/29/20 at 0900 melatonin tablet 5 mg 2021 (Given - Provider: Leora mccollum RLisaN.) 2144 (Given - Provider: Leora Cho R.N.) [...] after last modification) on Sat12/03/20 at 2100 ulgmzckkgxcd-dqif-HC-Ca-minerals 400 mcg (folic acid) tablet 1 tablet (THERAPEUTIC-M) 0800 (Given - Provider: Katelyn Johnson, R.NLisa, MARCOSL) 0803 (Given - Provider: Katelyn Johnson, R.NLisa, MARCOSL) 0832 (Given - Provider: Sydni Sun R.N.) 1 tablet, oral, Daily, First dose on Sat11/29/20 at 0900 nicotine 21 mg/24 hr 1 patch (NICODERM CQ) 0808 (Not G iven - Provider: Katelyn Johnson, R.NLisa, [place] - Reason: Patient/family refused) 0802 (Not Given - Provider: Katelyn Johnson, R.NLisa, [...] 0803 (Given - Provider: Katelyn Johnson, R.Jessica, MARCOSL) 0831 (Given - Provider: Sydni Sun R.N.) 17 g, oral, Daily, First dose (after las t modification) on Sat12/02/20 at 0900, Dissolve in 240 mLs (8 ounces) of water prior to giving. Avoid mixing with starch-based thickened liquids. sennosides-docusate sodium 8.6-50 mg per tablet 2 tabl et (SENOKOT-S) 0800 (Given - Provider: Linda JohnsonSLisaNLisa, R.NLisa, MARCOSL)204 (Not Given - Provider: Leora Cho R.N. - Reason: Patient/family refused) 08 (Given - Provider: Linda JohnsonS.NLisa, R.NLisa, MARCOSL)214 (Given - Provider: Leora Cho R.N.) 0831 (Given - Provider: Sydni Sun R.N.) 2 tablet, oral, 2 times daily, First dos e (after last modification) on Sat12/02/20 at 0900 sodium chloride 0.9 % injection 10 mL 0900 (Given - Pr ovider: Linda JohnsonS.N., R.N., CNL)2128 (Given - Provider: Leora Cho R.N.) 08 (Given - Provider: Linda JohnsonS.NLisa, R.NLisa, [place])222 (Given - Provider: Leora Cho R.N.) 0833 [...] R.N.) 1235 (Given - Provider: Katelyn Johnson, R.N., CNL)2145 (Given - Provider: Leora Cho R.N.)2146 (Given - Provider: Leora Cho R.N.) 1 application, topical, 3 times daily MI N, itching, irritation, rash, Starting on Sat12/03/20 [...] (CANCELED) 0358 (Given - Provider: Luis Bautista RKristin) 5 mg, oral, Every 4 hours PRN, severe pa in or score 7-10 of 10, Starting on Sat11/29/20 at 0732, Hold for somnolence, RR<12/min, SpO2<88% oxyCODONE IR tablet 5 mg (ROXICODONE) 0754 (Given - Pr ovider: Linda JohnsonSLisaNLisa, R.N., CNL)1103 (Given - Provider: Linda JohnsonSKristin, R.N., CNL)1409 (Given - Provider: Linda JohnsonSLisaN., R.N., CNL)1722 (Given - Provider: Jim Bradley M.S.NLisa, R.N., CNL) 0248 (Given - Provider: Leora Cho R.N.)0635 (Given - Provider: Leora Cho R.N.)0946 (Given - Provider: Norah JohnsonLisa, R.N., MARCOSL)1235 (Given - Provider: Linda JohnsonSLisaNLisa, R.N., [place]) 0323 (Given - Provider: Leora hunter R.NLisa)0623 (Given - Provider: Carrie RaglandNLisa)0943 (Given - Provider: Sydni Sun RLisaNLisa)1258 (Given - Provider: Fady Abreu R.NLisa)1548 (Given - Provider: Analia Das R.NLisa) 5 mg, oral, Every 3 hours PRN, moderate pain or score 4-6 of 10, severe pain or score 7-10 of 10, Starting on 12/03/20 at 721 2022 (Given - Provider: Leora Cho R.N.)2324 (Given - Provider: Leora Cho R.N.) 1547 (Given - Provider: Linda JohnsonSKristin, R.N., [place])1934 (Given - Provider: Leora Cho R.N.)2224 (Given - Provider: Leora Cho R.N.) documented in this encounter Additional Health Concerns Infection Onset Date Last Indicated Resolved Time COVID19 Pending 11/28/2020 11/28/2020 11/28/2020 5:01 AM CDT documented as of this encounter
--- OUTSIDE RECORDS SUMMARY | 2022-04-09 07:41 | XMS_ITS | Encounter Summary ---
:1965 Author Organization [facility] Address [address] [place] [address] Care Team Providers Name Role Phone Unavailable [...] Appointment Laboratory Medicine Osman Wesley M.D. [address] [place] [address] [phone] (Wallace forrester) 04/09/2022 Hospital Encounter Pulmonary Medicine Mario Pitt M.D. [address] [place] [address] [phone] (Wallace forrester) 04/09/2022 Appointment Cardiovascular Disease Yonas Wesley M.D. [address] [place] [address] [phone] (Wo mitzy) 04/16/2022 Office Visit Endocrinology Wesley Rankin APRN, C.N.P., D. N.P. [address] [place] [address] [phone] (Wo mitzy) 05/23/2022 Office Visit Cardiovascular Disease Yonas Wesley M.D. [address] [place] [phone] (Wo rk) documented as of this encounter Visit Diagnoses Not on filedocumented in this encounter
--- OUTSIDE RECORDS SUMMARY | 2022-04-09 07:41 | XMS_ITS | Encounter Summary ---
:1965 Author Organization [facility] Address [address] [place] [address] Care Team Providers Name Role Phone Elsewhere, Pcp Primary Care Provider Unavailable Encounter Details Date Type Department Care Team Description 01/01/2003 Historical Ophthalmology [facility]ST [facility] Man Yuen M.D. [address] [place] [address] (Wo rk) Social History Tobacco Use Types [...] #1 Astigmatism CDM Reports - EYEGEN Id: [id number] Status: Fnl documented in this encounter Plan of Treatment Upcoming Encounters Date Type Specialty Care Team Description 04/09/2022 Appointment Laboratory Medicine Osman Wesley M.D. [address] [place] [phone] (Wo rk) 04/09/2022 Hospital Encounter Pulmonary Medicine Mario Pitt M.D. [address] [place] [address] [phone] (Wo rk) 04/09/2022 Appointment Cardiovascular Disease Yonas Wesley M.D. [address] [place] [address] [phone] (Wo rk) 04/16/2022 Office Visit Endocrinology Wesley Rankin APRN, C.N.P., D. N.P. [address] [place] [address] [phone] (Wo rk) 05/23/2022 Office Visit Cardiovascular Disease Yonas Wesley M.D. [address] [place] [address] [phone] (Wo rk) documented as of this encounter Visit Diagnoses Not on filedocumented in this encounter Additional Health Concerns Infection Onset Date Last Indicated Resolved Time COVID19 Pending 11/28/2020 11/28/2020 11/28/2020 5:01 AM CDT COVID19 Pending 01/26/2021 01/26/2021 01/26/2021 12:29 PM CDT COVID19 01/26/2021 01/26/2021 02/15/2021 4:55 AM CDT documented as of this encounter Care Teams [employer] Technician Relationship Specialty Start Date End Date Elsewhere, Pcp PCP - General 02/22/21 documented as of this encounter
--- OUTSIDE RECORDS SUMMARY | 2022-04-09 07:41 | XMS_ITS | Encounter Summary ---
:1965 Author Organization [facility] Address [address] [place] [address] Care Team Providers Name Role Phone Unavailable [...] More than 4 times per year 02/09/2021 oriental orthodox services? Do you belong to any [...] Laboratory Medicine Osman Wesley M.D. [address] [place] [address] [phone] (Wallace forrester) 04/09/2022 Hospital Encounter Pulmonary Medicine Mario Pitt M.D. [address] [place] [address] [phone] (Wallace forrester) 04/09/2022 Appointment Cardiovascular Disease Yonas Wesley M.D. [address] [place] [address] [phone] (Wo mitzy) 04/16/2022 Office Visit Endocrinology Wesley Rankin APRN, C.N.P., D. N.P. [address] [place] [address] [phone] (Wo mitzy) 05/23/2022 Office Visit Cardiovascular Disease Yonas Wesley M.D. [address] [place] [phone] (Wo rk) documented as of this encounter Visit Diagnoses Not on filedocumented in this encounter
--- OUTSIDE RECORDS SUMMARY | 2022-04-09 07:41 | XMS_ITS | Encounter Summary ---
:1965 Author Organization [facility] Address [address] [place] [address] Care Team Providers Name Role Phone Unavailable Primary Care Provider Unavailable Encounter Details Date Type Department Care Team Description 09/18/2007 Hospital Encounter [facility] Luis Lomeli M.D. [address] [place] [phone] (Wo rk) Social History Tobacco Use Types [...] Appointment Laboratory Medicine Osman Wesley M.D. 200 [place] [phone] (Wo mitzy) 04/09/2022 Hospital Encounter Pulmonary Medicine Mario Pitt M.D. [address] [place] [address] [phone] (Wo mitzy) 04/09/2022 Appointment Cardiovascular Disease Yonas Wesley M.D. [address] [place] [phone] ( mitzy) 04/16/2022 Office Visit Endocrinology Wesley Rankin APRN, C.N.P., D. N.P. [address] [place] [phone] (Wallace forrester) 05/23/2022 Office Visit Cardiovascular Disease Yonas Wesley M.D. [address] [place] [address] [phone] (Wallace forrester) documented as of this encounter Visit Diagnoses Not on filedocumented in this encounter
--- OUTSIDE RECORDS SUMMARY | 2022-04-09 07:41 | XMS_ITS | Encounter Summary ---
:1965 Author Organization [facility] Address [address] [place] [address] Care Team Providers Name Role Phone Unavailable [...] Appointment Laboratory Medicine Osman Wesley M.D. [address] [place] [address] [phone] (Wallace forrester) 04/09/2022 Hospital Encounter Pulmonary Medicine Mario Pitt M.D. [address] [place] [address] [phone] (Wallace forrester) 04/09/2022 Appointment Cardiovascular Disease Yonas Wesley M.D. [address] [place] [address] [phone] (Wo mitzy) 04/16/2022 Office Visit Endocrinology Wesley Rankin APRN, C.N.P., D. N.P. [address] [place] [address] [phone] (Wo mitzy) 05/23/2022 Office Visit Cardiovascular Disease Yonas Wesley M.D. [address] [place] [phone] (Wo rk) documented as of this encounter Visit Diagnoses Not on filedocumented in this encounter
--- OUTSIDE RECORDS SUMMARY | 2022-04-09 07:42 | XMS_ITS | Clinical Summary ---
:1965 Author Organization [employer] [place] [address] Care Team Providers Name Role Phone Trish [...] type, unspecified whether angina present, unspecified whether tetlin or transplanted heart furosemide (LASIX) Take 1 [...] Added automatically from request for [facility] [phone] Right carotid bruit 12/09/2020 History of pneumothorax 12/09/2020 Coronary artery disease involving tetlin coronary melonie ry of tetlin heart 11/28/2020 without angina pectoris Overview: Formatting of this note might be differe nt from the original. Formatting of this note might be differe nt from the original. Added automatically from request for [facility] [phone] Last Assessment & Plan: Formatting of this note might be differe nt from the original. Stable without angina Unspecified essential hypertension 03/16/2008 Resolved Problems Problem Noted Date Resolved Date Tobacco use disorder 03/16/2008 09/28/2020 Encounters Date Type Specialty Care Team Description 04/06/2022 Telephone Edgar Hatch Proced ure MD 04/03/2022 Orders Only Staff, Other Clinical 1 scan : (1-Ord) [facility] ITAL 04/03/2022 Orders Only Staff, Other Clinical 1 scan : (1-Ord) [facility] ITAL 04/02/2022 Orders Only Scanner 1 scan: (1-Ord) [facility] ITAL, CHEST ABDOMEN P KATHIE W/CONTRAST, 08/202104/02/2022 Orders Only Scanner 1 scan: (1-Ord) [place], [facility] ORMAL ECG, 04/02/2022 04/02/2022 Telephone Humberto Jones [facility] cristal Steinberg MD Update 04/01/2022 Orders Only Scanner 1 scan: (1-Ord) EKG, 04/01/2022 04/01/2022 Orders Only Scanner 1 scan: (1-Ord) [facility] ITAL, XR CHEST 2V, 04/0104/01/2022 Orders Only Scanner 1 scan: (1-Ord) [facility] IT[facility], RESULTS, 202104/01/2022 Orders Only Staff, Other Clinical 1 scan : (1-Ord) 04/01/2022 - 03/30/2022 Ancillary Procedure 03/30/2022 Telephone Humberto Jones Medication Management; MD [facility] High Blood Pres sure 03/30/2022 Orders Only Melody Briones, TERENCE <No scans attached> 03/30/2022 Travel 03/30/2022 Medical Messaging Trish Hinton Jef frey Wynne MD 03/28/2022 Refill Humberto Jones Refill Requ est MD Idris (Furosemide) 03/28/2022 Telephone Edgar Hatch EGD MD 03/26/2022 Orders Only Lab, [facility] 03/26/2022 Office Visit Trish Hinton [facility]; Hip Pain/problem (x 1 day); Cough 03/26/2022 Travel 03/20/2022 Orders Only Lab, [facility] 03/20/2022 Telephone Clinic, [facility] Referral 03/15/2022 Telemedicine Humberto Jones MD 03/15/2022 [...] Years Used Date Smoking Tobacco: Former Cigarettes 0.5 Smokeless Tobacco: Never Tobacco Cessation: Counseling Given: Yes Alcohol Use Standard Drinks/Week Comments No 0 (1 standard drink = 0.6 oz pure alcoho l) Sex Assigned at Date Recorded Not on file COVID-19 Exposure Response Date Recorded In the last 10 days, have you been in contact with No / Unsu re 03/30/2022 9:33 AM CABLE TELEVISION TECHNICIAN someone who was confirmed or suspected to have Coronavirus/COVID-19? Obstetrics History Last Filed Vital Signs Vital Sign Reading Time Taken Comments Blood Pressure 149/92 03/26/2022 1:32 PM CABLE TELEVISION TECHNICIAN Pulse 73 03/26/2022 1:26 PM CABLE TELEVISION TECHNICIAN Temperature 36.6 ??C (97.9 ??F) 09/28/2020 10:15 AM CDT Respiratory Rate 14 09/28/2020 10:15 AM CDT Oxygen Saturation 98% 03/26/2022 1:26 PM CABLE TELEVISION TECHNICIAN Inhaled Oxygen Concentration - - Weight 79.8 kg (176 lb) 03/26/2022 1:26 PM CABLE TELEVISION TECHNICIAN Height 179 cm (5' 10.47) 03/26/2022 1:26 PM CABLE TELEVISION TECHNICIAN Body Mass Index 24.92 03/26/2022 1:26 PM CABLE TELEVISION TECHNICIAN Plan of Treatment Upcoming Encounters Date Type Specialty Care Team Description 04/12/2022 Orders Only Lab, [facility] 04/12/2022 Office Visit Nisha Canseco ie, [employer] [address] [place], [place] [address] (Wo rk) 06/11/2022 Preop Visit Trish Hinton MD [address] [place], [place] [address] (Wo rk) 06/18/2022 Procedure Only Edgar Hatch MD [address] [facility] [address] [place], [place] [address] (Wo rk) Health Maintenance Due Date Last Done Comments Hepatitis B series for Diabetes (1 of 1966 3 - 3-dose series) COVID-19 vaccine series (#1) 1965 Pneumococcal series for age 19-64 (1 1972 - PCV) Tdap 1977 HIV for age 15-65 1981 Hepatitis C screening for age 18-79 1984 Colonoscopy through age 75 2011 Tetanus booster [...] Name Priority Date/Time Associated Diagnosis Comme nts SCAN CORRESP-EKG 04/04/2022 9:55 Results for this RESULTS AM CABLE TELEVISION TECHNICIAN procedure are i n the results section. SCAN 04/03/2022 12:00 Results for this CORRESP-LABORATORY AM CABLE TELEVISION TECHNICIAN procedure are in RESULTS the results section. SCAN CORRESP-IMAGING 04/03/2022 12:00 Res ults for this AM CABLE TELEVISION TECHNICIAN procedure are i n the results section. SCAN-ELECTROCARDIOGRA 04/02/2022 12:00 M EKG AM CABLE TELEVISION TECHNICIAN SCAN-CT 04/02/2022 12:00 INTERPRETATION AM CABLE TELEVISION TECHNICIAN SCAN-ELECTROCARDIOGRA 04/01/2022 12:00 M EKG AM CABLE TELEVISION TECHNICIAN SCAN-LABORATORY 04/01/2022 12:00 Results for this REPORT AM CABLE TELEVISION TECHNICIAN procedure are i n the results section. SCAN-RADIOLOGY REPORT 04/01/2022 12:00 Re sults for this AM CABLE TELEVISION TECHNICIAN procedure are i n the results section. XR CHEST 2 VIEWS PA Routine 03/30/2022 9:45 Pleural effusion o n Results for this AND LATERAL AM CABLE TELEVISION TECHNICIAN left procedure are in History of pneumothorax the results section. URINE ALBUMIN TO Routine 03/26/2022 2:54 Controlled type 2 Res ults for this CREATININE RATIO, PM CABLE TELEVISION TECHNICIAN diabetes mellitus with procedure are in RANDOM diabetic the results polyneuropathy, without sect ion. long-term current use of insulin (HC) BRAIN NATRIURETIC Routine 03/26/2022 2:50 Non-ischemic Results for this PEPTIDE PM CABLE TELEVISION TECHNICIAN cardiomyopathy ( HC) procedure are in Other heart failure the resu lts (HC) section. TSH WITH REFLEX Routine 03/26/2022 2:50 Acquired right foot Re sults for this PM CABLE TELEVISION TECHNICIAN drop procedure are in Other specified the results mononeuropathies of section. bilateral lower limbs VITAMIN B12 Routine 03/26/2022 2:50 Acquired right foot Resul ts for this PM CABLE TELEVISION TECHNICIAN drop procedure are i n the results section. HEMOGLOBIN A1C Routine 03/26/2022 2:50 Controlled type 2 Resul ts for this PM CABLE TELEVISION TECHNICIAN diabetes mellitus with proce dure are in diabetic the results polyneuropathy, without sect ion. long-term current use of insulin (HC) COMP METABOLIC PANEL Routine 03/26/2022 2:50 Ischemic cardiomy opathy Results for this PM CABLE TELEVISION TECHNICIAN procedure are i n the results section. from Last 3 Months Results SCAN CORRESP-EKG RESULTS (04/04/2022 9:55 AM CABLE TELEVISION TECHNICIAN) Narrative 04/04/2022 9:55 AM CABLE TELEVISION TECHNICIAN This result has an attachment that is no t available. Ordered by an unspecified provider. Other Clinical Staff OTHER SCAN CORRESP-LABORATORY RESULTS (04/03/2022 12:00 AM CABLE TELEVISION TECHNICIAN) Narrative 04/03/2022 12:00 AM CABLE TELEVISION TECHNICIAN This result has an attachment that is no t available. Ordered by an unspecified provider. Other Clinical Staff OTHER SCAN CORRESP-IMAGING (04/03/2022 12:00 AM CABLE TELEVISION TECHNICIAN) Anatomical Region Laterality Modality Other Narrative 04/03/2022 12:00 AM CABLE TELEVISION TECHNICIAN This result has an attachment that is no t available. Ordered by an unspecified provider. Other Clinical Staff OTHER SCAN-CT INTERPRETATION (04/02/2022 12:00 AM CABLE TELEVISION TECHNICIAN) Anatomical Region Laterality Modality Other Narrative This result has an attachment that is no t available. Scanner OTHER SCAN-ELECTROCARDIOGRAM EKG (04/02/2022 12:00 AM CABLE TELEVISION TECHNICIAN)Only the most recent of2 resultswithin the time period is included. Narrative This result has an attachment that is no t available. Scanner OTHER SCAN-RADIOLOGY REPORT (04/01/2022 12:00 AM CABLE TELEVISION TECHNICIAN) Anatomical Region Laterality Modality Other Narrative This result has an attachment that is no t available. Scanner OTHER SCAN-LABORATORY REPORT (04/01/2022 12:00 AM CABLE TELEVISION TECHNICIAN) Narrative This result has an attachment that is no t available. Scanner OTHER XR CHEST 2 VIEWS PA AND LATERAL (03/30/2022 9:45 AM CABLE TELEVISION TECHNICIAN) Anatomical Region Laterality Modality CHEST, THORAX, Lung, HEART Computed Radi ography Specimen (Source) Anatomical Collection Method Collection Time Re ceived Time Location / / Volume Laterality 03/30/2022 10:00 AM CABLE TELEVISION TECHNICIAN Impressions 03/30/2022 10:00 AM CABLE TELEVISION TECHNICIAN Small left pleural effusion. No pneumothorax. Dictated by Luis Dash MD @ Mar ??2 2021 10:00AM (Electronically Signed) ?? Narrative 03/30/2022 10:00 AM CABLE TELEVISION TECHNICIAN For Patients: ??As a result of the Cures Act, medical imaging exams and procedure report s are released immediately into your [facility] medical record. ??You may view this report [...] For Patients: As a result of the ntury Cures Act, medical imaging exams and procedure reports are released immediately into your electronic medical record. You may view this report before your referring provider. If you have questions, please contact [facility] health care provider. INDICATION: Left pleural [...] TO CREATININE RATIO, RANDOM (03/26/2022 2:54 PM CABLE TELEVISION TECHNICIAN) [facility] Method Time Signature ALB RAND URINE 30.9 mg/L 03/27/2022 [facility] 8:22 AM CABLE TELEVISION TECHNICIAN LABORATORY-[facility] CREATININE,URIN 0.36 g/L 03/27/2022 [facility] E 8:22 AM CABLE TELEVISION TECHNICIAN LAB[facility]AT[facility] ALBUMIN TO 85.8 (H) <30.0 mg/g 03/27/2022 [facility] CREATININE creat 8:22 AM CABLE TELEVISION TECHNICIAN LABORATORY-GRAEC RATIO,RAND UR TRAL LABORATORY Specimen Anatomical Collection Method Collection Time Receive d Time (Source) Location / / Volume Laterality Urine URINE SPECIMEN / Non-Blood / 03/26/2022 2:54 PM 03/26 2:54 Unknown Unknown CABLE TELEVISION TECHNICIAN PM CABLE TELEVISION TECHNICIAN Narrative [facility] LABORATORY-CENTRAL LABORAT ORY - 03/27/2022 8:22 AM CABLE TELEVISION TECHNICIAN If Albumin to Creatinine Ratio is elevated, [...] Organization Address City/State/ZIP Code Phon e Number [place] [address] [facility] [address] LABORATORY-CENTRAL 2000 LABORATORY TSH WITH REFLEX (03/26/2022 2:50 PM CABLE TELEVISION TECHNICIAN) athologist Signature TSH 2.34 0.35 - 4.94 03/27/2022 [facility] uIU/mL 8:10 PM CABLE TELEVISION TECHNICIAN LABORATORY-CENTR AL LABORATORY Specimen Anatomical Collection Method / Collection Time Recei teo Time (Source) Location / Volume Laterality Blood BLOOD SPECIMEN / Venipuncture / 03/26/2022 2:50 2021 2:52 Unknown Unknown PM CABLE TELEVISION TECHNICIAN PM CABLE TELEVISION TECHNICIAN Narrative [facility] LABORATORY-CENTRAL LABORAT ORY - 03/27/2022 8:10 PM CABLE TELEVISION TECHNICIAN In Adults, TSH values between 5.00 and 10.00 uIU/ml do not necessarily indicate the presence of Hyp othyroidism. Correlation with clinical findings such as presence of goiter and/or Thyroperoxidase (TPO) Antibody ma y be helpful. For more information please refer to FRACISCO 20 04; 291: 228-238. Trish Hinton MD CHEMISTRY Performing Organization Address [facility]/ZIP [facility] Phon e Number [place] [address] [facility] [place] [address] LABORATORY-CENTRAL 2000 LABORATORY (ABNORMAL) BRAIN NATRIURETIC PEPTIDE (03/26/2022 2:50 PM CABLE TELEVISION TECHNICIAN) athologist [facility] BRAIN VITA 203 (H) <100 pg/mL 03/28/2022 [facility] PEPTIDE 12:07 AM CABLE TELEVISION TECHNICIAN LAB[facility]AT[facility] Specimen Anatomical Collection Method / Collection Time Recei teo Time (Source) Location / Volume Laterality Blood BLOOD SPECIMEN / Venipuncture / 03/26/2022 2:50 2021 2:52 Unknown Unknown PM CABLE TELEVISION TECHNICIAN PM CABLE TELEVISION TECHNICIAN Trish Hinton MD CHEMISTRY Performing Organization Address City/[facility]/ZIP Code Phon e Number [place] [address] [place] [address] LABORATORY-CENTRAL 2000 LABORATORY HEMOGLOBIN A1C MONITORING (POCT) (03/26/2022 2:50 PM CABLE TELEVISION TECHNICIAN) athologist [facility] HEMOGLOBIN A1C 5.3 <=6.4 % 03/26/2022 [facility] MONITORING 3:08 PM CABLE TELEVISION TECHNICIAN [place] [facility] Specimen Anatomical Collection Method / Collection Time Recei teo Time (Source) Location / Volume Laterality Blood BLOOD SPECIMEN / Venipuncture / 03/26/2022 2:50 2021 2:52 Unknown Unknown PM CABLE TELEVISION TECHNICIAN PM CABLE TELEVISION TECHNICIAN Narrative [facility] - 2021 3:08 PM CABLE TELEVISION TECHNICIAN ? (<=6.9%) ? Indicates good control ? [...] Organization Address City/State/ZIP Code Phon e Number [facility] [address] [place] [address] VITAMIN B12 (03/26/2022 2:50 PM CABLE TELEVISION TECHNICIAN) athologist [facility] VITAMIN B12 [phone] 03/27/2022 [facility] pg/mL 11:17 AM CABLE TELEVISION TECHNICIAN LABORATORY-[facility] LABORATORY Specimen Anatomical Collection Method / Collection Time Recei teo Time (Source) Location / Volume Laterality Blood BLOOD SPECIMEN / Venipuncture / 03/26/2022 2:50 2021 2:52 Unknown Unknown PM CABLE TELEVISION TECHNICIAN PM CABLE TELEVISION TECHNICIAN Trish Hinton MD CHEMISTRY Performing Organization Address City/State/ZIP Code Phon e Number [facility] [address] [place] [address] LABORATORY-CENTRAL 2000 LABORATORY COMP METABOLIC PANEL (03/26/2022 2:50 PM CABLE TELEVISION TECHNICIAN) P athologist Signature SODIUM 141 135 - 145 03/27/2022 [facility] mmol/L 7:56 PM CABLE TELEVISION TECHNICIAN LAB[facility]AT[facility] POTASSIUM 4.3 3.5 - 5.0 03/27/2022 [facility] mmol/L 7:56 PM CABLE TELEVISION TECHNICIAN [facility]AT[facility] CHLORIDE 104 98 - 110 03/27/2022 [facility] mmol/L 7:56 PM CABLE TELEVISION TECHNICIAN [facility] CO2,TOTAL 30 21 - 31 03/27/2022 [facility] mmol/L 7:56 PM CABLE TELEVISION TECHNICIAN [facility] ANION GAP 7 5 - 18 03/27/2022 [facility] 7:56 PM CABLE TELEVISION TECHNICIAN [facility] GLUCOSE 82 65 - 100 03/27/2022 [facility] mg/dL 7:56 PM CABLE TELEVISION TECHNICIAN [facility] CALCIUM 9.7 8.5 - 10.5 03/27/2022 [facility] mg/dL 7:56 PM CABLE TELEVISION TECHNICIAN [facility] BUN 11 8 - 25 03/27/2022 [facility] mg/dL 7:56 PM CABLE TELEVISION TECHNICIAN [facility] CREATININE 0.78 0.72 - 03/27/2022 [facility] 1.25 mg/dL 7:56 PM CABLE TELEVISION TECHNICIAN [facility] BUN/CREAT RATIO 14 10 - 20 03/27/2022 [facility] 7:56 PM CABLE TELEVISION TECHNICIAN [facility] ALBUMIN 4.4 3.5 - 5.2 03/27/2022 [facility] g/dL 7:56 PM CABLE TELEVISION TECHNICIAN LAB[facility]AT[facility] PROTEIN,TOTAL 7.4 6.0 - 8.0 03/27/2022 [facility] g/dL 7:56 PM CABLE TELEVISION TECHNICIAN [facility] GLOBULIN 3.0 2.0 - 3.7 03/27/2022 [facility] g/dL 7:56 PM CABLE TELEVISION TECHNICIAN LAB[facility]AT[facility] A/G RATIO 1.5 1.0 - 2.0 03/27/2022 [facility] 7:56 PM CABLE TELEVISION TECHNICIAN LAB[facility]AT[facility] BILIRUBIN,TOTAL 0.4 0.2 - 1.2 03/27/2022 [facility] mg/dL 7:56 PM CABLE TELEVISION TECHNICIAN LAB[facility]AT[facility] ALK PHOSPHATASE 61 50 - 136 03/27/2022 [facility] IU/L 7:56 PM CABLE TELEVISION TECHNICIAN LAB[facility] ALT (SGPT) 9 8 - 45 03/27/2022 [facility] IU/L 7:56 PM CABLE TELEVISION TECHNICIAN [facility] AST (SGOT) 13 2 - 40 03/27/2022 [facility] IU/L 7:56 PM CABLE TELEVISION TECHNICIAN [facility] eGFR >90 >90 03/27/2022 [facility] mL/min/1.7 7:56 PM CABLE TELEVISION TECHNICIAN LABORATORY-[facility] 3m2 TRAL LABORATORY Comment: As of [...] 03/26/2022 2:50 2021 2:52 Unknown Unknown PM CABLE TELEVISION TECHNICIAN PM CABLE TELEVISION TECHNICIAN Humberto Jones MD CHEMISTRY Performing Organization Address City/State/ZIP Code Phon e Number [facility] [address] 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
== END 2022-04-02 18:02 | disposition home or self-care (01) ==
LOC: AMB 04-09 07:33
PROVIDERS: Visit Provider Family Medicine
DX: R55 Syncope and collapse (principal)
CPT/HCPCS: A0425; A0427

== ENCOUNTER 2022-04-02 18:35 | Emergency (ER) | payer MEDICARE, SELFPAY ==
[2022-04-02 18:43] VITALS: BP 118/56; PULSE 59; TEMP 35.4; O2SAT 96; BMI 24.4
[2022-04-02 19:18] VITALS: BP 139/84; PULSE 64; O2SAT 93
[2022-04-02 19:19] VITALS: PULSE 65; O2SAT 93
--- NOTE | 2022-04-02 19:24 | ED_ITS ---
HPI - Syncope General Chief Complaint: Syncope/Fainted Stated Complaint: Syncope Time Seen by Provider: 04/02/22 18:44 History of Present Illness HPI narrative: This 56-year-old male comes in by ambulance because of a syncopal event that occurred at home just prior to arrival. He was actually seen here about 18 hours ago and went home at 3:00 a.m. in the morning. He did have a thorough workup including CT imaging of the abdomen and pelvis. He did start taking torsemide for volume overload. He took 60 mg today. He states that he was laying around most of the day and smelled some food that his was cooking. He got up and started ambulating up stairs and began to feel lightheaded. Before long he did have loss of consciousness. He recovered rather quickly and was noted to have low blood pressure at that time. There was report his blood pressure was 60/40. Upon arrival here he has normal blood pressures and vital signs. He states that he feels back to normal. He does not report any chest pain. He did not have any nausea, vomiting, shortness of breath, or diaph oresis. Related Data Home Medications Medication Instructions Recorded Confirmed Home Oxygen 04/01/22 04/01/22 acetaminophen 500 mg tablet 1,000 mg PO Q4-6H PRN 04/01/22 04/01/22 (Acetaminophen Extra Strength) albuterol sulfate 90 mcg/actuation 2 inh inhalation Q4H PRN 04/01/22 04/01/22 aerosol inhaler aspirin 81 mg tablet,delayed 81 mg PO DAILY 04/01/22 04/01/22 release (Enteric Coated Aspirin) atorvastatin 80 mg tablet 40 mg PO DAILY 04/01/22 04/01/22 carvedilol 12.5 mg tablet 12.5 mg PO Q12H 04/01/22 04/01/22 coenzyme Q10 30 mg capsule 30 mg PO DAILY 04/01/22 04/01/22 furosemide 20 mg tablet 40 mg PO DAILY 04/01/22 04/01/22 hydroxyzine HCl 25 mg tablet 25 mg PO DAILY PRN 04/01/22 04/01/22 hydroxyzine HCl 50 mg tablet 50 mg PO QHS PRN 04/01/22 04/01/22 metformin 500 mg tablet,extended 2,000 mg PO DAILY 04/01/22 04/01/22 release 24 hr multivitamin 1 tab PO DAILY 04/01/22 04/01/22 omeprazole 20 mg capsule,delayed 20 mg PO DAILY 04/01/22 04/01/22 release tizanidine 2 mg tablet 2 mg PO Q8H PRN 04/01/22 04/01/22 tizanidine 4 mg tablet 4 mg PO QHS PRN 04/01/22 04/01/22 valsartan 40 mg tablet 80 mg PO DAILY 04/01/22 04/01/22 Previous Rx's Medication Instructions Recorded levofloxacin 500 mg tablet 500 mg PO DAILY #7 tabs 04/02/22 potassium chloride 20 mEq 20 meq PO BID 6 days #12 tabs 04/02/22 tablet,extended release torsemide 20 mg tablet 60 mg PO DAILY #15 tabs 04/02/22 Allergies Allergy/AdvReac Type Severity Reaction Status Date / Time No Known Drug Allergies Allergy Verified 04/01/22 22:38 Review of Systems Status of ROS: Reports: 10 or more systems reviewed and unremarkable except as noted in History and below Narrative: Constitutional: No fevers, no weight gain or loss. Eyes: No discharge. No vision changes. HENT: No congestion, no sore throat, no ear pain. Cardiovascular: No chest pain, no palpitations. Respiratory: No shortness of breath, no wheezes, no cough. Gastrointestinal: No abdominal pain, no vomiting, no diarrhea. Genitourinary: No dysuria, no hematuria. Musculoskeletal: Normal range of motion. Skin: No rashes, no pruritis. Neurological: No weakness, sensory change, speech change. Lightheadedness followed by brief syncope. Endo/Heme/Allergies: No bruising or bleeding. No polydipsia. Pysch: no suicidality, no anxiety, no insomnia. All other systems reviewed and are negative. [facility] Medical History Acquired right foot drop CAD in [place] artery Chronic low back pain with sciatica Coronary artery disease involving [place] coronary artery without angina pectoris Diabetes mellitus, without long-term current use of insulin DM2 (diabetes mellitus, type 2) Generalized ischemic myocardial dysfunction GERD with esophagitis Heart failure Hyperlipidemia Hypertension ICD (implantable cardioverter-defibrillator) in place Ischemic cardiomyopathy On home oxygen therapy Pneumothorax Recurrent pleural effusion on left Required emergent intubation Respiratory failure Right carotid bruit ST elevation (STEMI) myocardial infarction involving left anterior descending coronary artery Surgical History H/O heart artery stent History of thoracentesis Social History Smoking Status: Never smoker How often do you have a drink containing alcohol: never AUDIT-C Alcohol total score: 0 Non-prescribed substance use: denies use Exam Narrative: Exam Narrative: Constitutional: Well-developed, well-nourished, no acute distress. HEENT: Normocephalic, atraumatic. Neck: Normal range of motion. Nontender. Supple. Heart: Regular. No murmurs. Normal rate. Intact distal pulses. Lungs: Clear to auscultation. No chest discomfort. No wheezes, rhonchi, or rales. Abdomen: Normal bowel sounds. Nontender. No rebound tenderness. Genitalia: Deferred. Back: No midline tenderness. Normal range of motion. Extremities: Normal range of motion. No injury. Skin: Intact. No rash. Warm. No erythema or pallor. Neurologic: No altered sensation. No weakness. Alert and oriented. Psychiatric: No suicidality. No anxiety or depression. No insomnia. Nursing notes and vitals signs are reviewed. Const: Vital Signs, click to edit/add: Vital Signs - 24 hr 04/02/22 18:43 04/02/22 19:18 Temperature 95.7 F L Pulse Rate 64 Pulse Rate [Left P ulse Oximeter] 59 L Blood Pressure 139/84 Blood Pressure [Ri ght Upper Arm] 118/56 L Pulse Oximetry 96 93 Oxygen Delivery Me thod Room Air Course Vital Signs Vital signs: Initial Vital Signs Temperature 95.7 F L 04/02/22 18:43 Temperature Source Temporal Artery Scan 04/02/22 18:43 Pulse Rate 59 L 04/02/22 18:43 Blood Pressure 118/56 L 04/02/22 18:43 Blood Pressure Mean 76 04/02/22 18:43 Blood Pressure Position Supine 04/02/22 18:43 Pulse Oximetry 96 04/02/22 18:43 Oxygen Delivery Method 04/02/22 18:43 Vital Signs Temperature 95.7 F L 12/05/22 18:43 Pulse Rate 59 L 04/02/22 18:43 Blood Pressure 118/56 L 04/02/22 18:43 Pulse Oximetry 96 04/02/22 18:43 Oxygen Delivery Method 04/02/22 18:43 Temperature 95.7 F L 04/02/22 18:43 Pulse Rate 64 04/02/22 19:18 Blood Pressure 139/84 04/02/22 19:18 Pulse Oximetry 93 04/02/22 19:18 Oxygen Delivery Method 04/02/22 18:43 MDM - Syncope MDM Narrative Medical decision making narrative: This patient comes in for evaluation of a syncopal event that occurred at home. Upon arrival here he states that he feels back to normal and does arrive with normal vital signs. I did review his lab and imaging results from his workup less than 24 hours ago here. I did discuss repeating some of these as options but in a process of shared decision making this was declined. The patient states that he feels back to normal. It does seem to make sense that a number of things contributed to this episode. He jumped up rather quickly and began to feel lightheaded. He is taking a diuretic and states that he has lost fiber 6 lb in the last day or 2. He had not had anything to eat or drink for a while also. He was able to get up and ambulate normally here. He is okay to be discharged home. ECG Data Attestation: I personally reviewed and interpreted this ECG as follows: Interpretation: Normal sinus rhythm. Rate is 60 beats per minute. There are no ST or T-wave abnormalities. Discharge Plan Discharge Clinical Impression: Vasovagal syncope Patient Disposition: Home w/ Parent or Adult Condition: Improved Additional Instructions: Continue current plans. Follow up with MD or return if recurrent or worsening symptoms happen. Prescriptions: No Action atorvastatin 80 mg tablet 40 mg PO DAILY carvedilol 12.5 mg tablet 12.5 mg PO Q12H furosemide 20 mg tablet 40 mg PO DAILY hydroxyzine HCl 50 mg tablet 50 mg PO QHS PRN hydroxyzine HCl 25 mg tablet 25 mg PO DAILY PRN metformin 500 mg tablet extended release 24 hr 2,000 mg PO DAILY omeprazole 20 mg capsule,delayed release(DR/EC) 20 mg PO DAILY tizanidine 2 mg tablet 2 mg PO Q8H PRN Label Comments: TAKE 1 TABLET BY MOUTH EVERY 8 HOURS NEEDED FOR MUSCLE SPASMS FOR UP TO 10 DAYS tizanidine 4 mg tablet 4 mg PO QHS PRN valsartan 40 mg tablet 80 mg PO DAILY acetaminophen [Acetaminophen Extra Strength] 500 mg tablet 1,000 mg PO Q4-6H PRN albuterol sulfate 90 mcg/actuation HFA aerosol inhaler 2 inh inhalation Q4H PRN aspirin [Enteric Coated Aspirin] 81 mg tablet,delayed release (DR/EC) 81 mg PO DAILY coenzyme Q10 30 mg capsule 30 mg PO DAILY multivitamin Tablet 1 tab PO DAILY (DME) Home Oxygen Misc See Rx Instructions .ROUTE Rx Instructions: As directed levofloxacin 500 mg tablet 500 mg PO DAILY Qty: 7 0RF Rx Instructions: Begin morning of 04/03/2022, 04/02 dose given in ED torsemide 20 mg tablet 60 mg PO DAILY Qty: 15 0RF Rx Instructions: Begin morning of 04/02/2022 once picked up. Do not take furosemide for the 5 days you are on this medicine potassium chloride 20 mEq tablet extended release 20 meq PO BID 6 Days Qty: 12 0RF Rx Instructions: To replace potassium lost from new water pill Follow Up/Referrals: Provider,Not a Local [Primary Care Provider] - Stand Alone Forms: [facility] Info Instructions
[2022-04-02 19:34] VITALS: PULSE 70; O2SAT 97
[2022-04-02 19:35] VITALS: BP 104/71
--- OUTSIDE RECORDS SUMMARY | 2022-04-02 19:37 | XMS_ITS | Encounter Summary ---
:1965 Author Organization [facility] Address [address] [place] [address] Care Team Providers Name Role Phone Elsewhere, Pcp Primary Care Provider Unavailable Reason for Visit Outpatient (Routine) - Closed Specialty Diagnoses / Procedures Referred By Contact Refer red To Contact Cardiovascular Disease Osman Wesley M .D. 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 How often do you attend shinto or More than 4 times per year 02/09/2021 mosque services? Do you belong to any clubs or Yes 02/09/2021 organizations such as shinto groups, unions, fraternal or athletic groups, or [...] or slept in a detention (including now)? Education Answer Date Recorded What [...] He walked from the parking ramp today [facility] floor without having to stop because [...] flash glucose scanning reader ([employer] [place] [address] [place]) misc, 1 kit daily. ??? flash glucose [...] in systolic function of the left ventricle NT MASON APPRENTICE documented in this encounter Plan of Treatment Upcoming Encounters Date Type Specialty Care Team Description 04/06/2022 Clinical Communication Admitting/Central Scheduling 04/09/2022 Appointment Pulmonary Medicine Mario Pitt M.D. [address] [place] [address] 05/23/2022 Office Visit Cardiovascular Disease Osman Wesley M.D. [address] [place] [phone] documented as of this encounter Results (ABNORMAL) NT-Pro B-Type Natriuretic Peptide (BNP) (05/15/2021 5:47 PM CEMENT MASON APPRENTICE) athologist Signature NT-Pro BNP 835 (H) <=68 pg/mL 05/15/2021 DTL 6:48 PM CEMENT MASON APPRENTICE Comment: NT-proBNP values less than 300 pg/mL [...] 05/15/2021 5:47 PM 05/15/19 22 6:24 Venous) CEMENT MASON APPRENTICE PM CEMENT MASON APPRENTICE Osman Wesley M.D. LAB BLOOD ADD-ON Performing Organization Address City/State/[facility] Code Phon e Number [facility] - [id number] [place] [address] Troponin T, 5th Generation (05/15/2021 5:47 PM CEMENT MASON APPRENTICE) athologist Signature Troponin T, 5th 14 <=15 ng/L 05/15/2021 DTL gen 7:54 PM CEMENT MASON APPRENTICE Specimen Anatomical Collection Method Collection Time Receive d Time (Source) Location / / Volume Laterality Blood (Blood, 05/15/2021 5:47 PM 05/15/19 22 6:25 Venous) CEMENT MASON APPRENTICE PM CEMENT MASON APPRENTICE Osman Wesley M.D. LAB BLOOD ADD-ON Performing Organization Address City/State/[facility] Code Phon e Number [facility] - [address] [place] [phone] [place] [address] documented in this encounter Visit Diagnoses Diagnosis Cardiomyopathy Ischemic - Primary Pain Chest Atypical documented in this encounter Care Teams Senior Strategy Manager Relationship Specialty Start Date End Date Elsewhere, Pcp PCP - General 02/22/21 documented as of this encounter
--- OUTSIDE RECORDS SUMMARY | 2022-04-02 19:37 | XMS_ITS | Encounter Summary ---
:1965 Author Organization [facility] Address [address] [place] [address] Care Team Providers Name Role Phone Elsewhere, Pcp Primary Care Provider Unavailable Reason for Visit Reason Comments Appointment Encounter Details Date Type Department Care Team Description 04/02/2022 Clinical Communication Department of Osman Wesley A ppointment Cardiovascular Medicine Anita in [facility] [address] [facility] [address] [place] [phone] [phone] Social History Tobacco Use Types Packs/Day Years [...] or relatives? How often do you attend religion or More than 4 times per year 02/09/2021 pentecostalism services? Do you belong to any clubs or Yes 02/09/2021 organizations such as religion groups, unions, fraternal or athletic groups, or [...] this encounter Miscellaneous Notes Telephone Encounter - Amanda Ashton - 04/02/2022 1:41 PM CST EST pt Appointment/Visit Type/Schedule Procedure Goal or summary: follow up to May appt Dates interested in: 04/09 Additional comments: Pt was recently admitted to [facility] with water on the lungs, pt hasan appt 04/09 to see Pulm, would like to see you also if available Records being faxed Testing? 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 [address] [place] [address] 05/23/2022 Office Visit Cardiovascular Disease Osman Wesley M.D. [address] [place] [address] documented as of this encounter Visit Diagnoses Not on filedocumented in this encounter Care Teams Bus Inspector Relationship Specialty Start Date End Date Elsewhere, Pcp PCP - General 02/22/21 documented as of this encounter
--- OUTSIDE RECORDS SUMMARY | 2022-04-02 19:37 | XMS_ITS | Encounter Summary ---
:1965 Author Organization [facility] Address [address] [place] [address] Care Team Providers Name Role Phone Elsewhere, Pcp Primary Care Provider Unavailable Encounter Details Date Type Department Care Team Description 03/21/2021 Orders Only Division of [place] Aftercare Cardi ac Cardiovascular Diseases Wally Saleh (Primary in [facility] M.S.N., R.N. Dx) [address] [place] [address] Social History Tobacco Use [...] as of this encounter Plan of Treatment Upcoming Encounters Date Type Specialty Care Team Description 04/06/2022 Clinical Communication Admitting/Central Scheduling 04/09/2022 Appointment Pulmonary Medicine Mario Pitt M.D. [address] [place] [phone] 05/23/2022 Office Visit Cardiovascular Disease Osman Wesley M.D. [address] [place] [address] documented as of this encounter Visit Diagnoses Diagnosis Aftercare Cardiac Defibrillator - Primar y documented in this encounter Care Teams Bi Specialist Relationship Specialty Start Date End Date Elsewhere, Pcp PCP - General 02/22/21 documented as of this encounter
--- OUTSIDE RECORDS SUMMARY | 2022-04-02 19:37 | XMS_ITS | Encounter Summary ---
:1965 Author Organization [facility] Address [address] [place] [address] Care Team Providers Name Role Phone Elsewhere, Pcp Primary Care Provider Unavailable Reason for Visit Reason Comments Device Registration Communication Encounter Details Date Type Department Care Team Description 03/22/2021 Clinical [facility], Device Registr ation Communication Cardiovascular Ellis Roberson, (Communicati on) Medicine in [place], Anita, M.P .H. [place] [address] [facility] [address] [place] [phone] Social History Tobacco Use Types Packs/Day Years [...] More than 4 times per year 02/09/2021 yazdanism services? Do you belong to any clubs [...] from the original note were not included. ICE CAPTAIN Telephone Encounter - Neli Sotelo - 03/22/2021 7:41 AM CST ICD Implant ICE CAPTAIN documented in this encounter Plan of Treatment Upcoming Encounters Date Type Specialty Care Team Description 04/06/2022 Clinical Communication Admitting/Central Scheduling 04/09/2022 Appointment Pulmonary Medicine Mario Pitt M.D. [address] [place] [address] 05/23/2022 Office Visit Cardiovascular Disease Osman Wesley M.D. [address] [place] [address] documented as of this encounter Visit Diagnoses Not on filedocumented in this encounter Care Teams Acct Exec Relationship Specialty Start Date End Date Elsewhere, Pcp PCP - General 02/22/21 documented as of this encounter
--- OUTSIDE RECORDS SUMMARY | 2022-04-02 19:37 | XMS_ITS | Encounter Summary ---
:1965 Author Organization [facility] Address [address] [place] [address] Care Team Providers Name Role Phone Elsewhere, Pcp Primary Care Provider Unavailable Encounter Details Date Type Department Care Team Description 05/18/2021 Orders Only Department of Cardiovascular Osman Bond M.D. Medicine in [place], [facility] [address] [place], [place] [address] [facility] [address] [place] [address] [phone] Social History Tobacco Use Types Packs/Day Years [...] or relatives? How often do you attend buddhist or More than 4 times per year 02/09/2021 sikhism services? Do you belong to any clubs or Yes 02/09/2021 organizations such as buddhist groups, unions, fraternal or athletic groups, or [...] Appointment Pulmonary Medicine Mario Pitt M.D. [address] [place] [address] 05/23/2022 Office Visit Cardiovascular Disease Osman Wesley M.D. [address] [place] [address] documented as of this encounter Visit Diagnoses Not on filedocumented in this encounter Care Teams Conveyor Weigher Operator Relationship Specialty Start Date End Date Elsewhere, Pcp PCP - General 02/22/21 documented as of this encounter
--- OUTSIDE RECORDS SUMMARY | 2022-04-02 19:37 | XMS_ITS | Encounter Summary ---
:[address] [facility] Address [address] [place] [address] Care Team Providers Name Role Phone Elsewhere, Pcp Primary Care Provider Unavailable Encounter Details Date Type Department Care Team Description 06/13/2021 Orders Only Division of Rahat Denton Diabetes Janel itus Type 2 Hyperglycemia (HCC) (Primary Dx); Endocrinology in P, M.D. Hyperlipidemia On Treatment [place], [place] [address] [facility] [address] [place] [address] [phone] Social History Tobacco Use Types Packs/Day Years [...] or relatives? How often do you attend gnosticist or More than 4 times per year 02/09/2021 scientology services? Do you belong to any clubs or Yes 02/09/2021 organizations such as gnosticist groups, unions, fraternal or athletic groups, or [...] place to sleep or slept in a mcc (including now)? Education Answer Date Recorded What [...] Appointment Pulmonary Medicine Mario Pitt M.D. [address] [place] [phone] 05/23/2022 Office Visit Cardiovascular Disease Osman Wesley M.D. [address] [place] [phone] Scheduled Orders Name Type Priority Associated Diagnoses [...] Treatment documented in this encounter Care Teams Complaint Coordinator Relationship Specialty Start Date End Date Elsewhere, Pcp PCP - General 02/22/21 documented as of this encounter
--- OUTSIDE RECORDS SUMMARY | 2022-04-02 19:37 | XMS_ITS | Clinical Summary ---
:1965 Author Organization [facility] Address [address] [place] [address] Care Team Providers Name Role Phone Elsewhere, Pcp Primary Care Provider Unavailable Source Comments Patient records contain information from all sites at [facility]. For routine questions regarding patient records, call [phone] during business hours, M-F 8:00 AM - 5:00 PM Central Time. Record requests for emergency care only can be directed to [phone] at any time.[facility] Allergies No known active allergies Medications Medication [...] 0 03/13/2021 Ex pired scanning reader 2 (StarbucksStyle Jose 2 [place]) miscIndications: Diabetes Mellitus Type 2 Hyperglycemia (HCC) [...] Added automatically from request for donato leungy [id number] Hypertension Heart Disease With Congestive Heart Failu re 02/27/2021 Overview: Added automatically from request for donato bola [id number] Failure Heart 02/27/2021 Overview: Added automatically from request for donato plaza [id number] Pneumothorax Unspecified 12/01/2020 Diabetes Mellitus Type 2 Hyperglycemia 11/28/2020 Atherosclerotic Heart Disease [place] Coronary Artery W ith Other Forms 11/28/2020 Angina Pectoris (Stable Angina/Angina Of Exertion) Overview: Added automatically from request for donato plaza [id number] Hypertension Essential Primary 03/16/2008 Resolved Problems Problem Noted Date Resolved Date Edema Pulmonary 11/28/2020 12/05/2020 Coronary Stent Status Post 11/28/2020 12/05/2020 Acute Respiratory Failure With Hypercapnia 11/28/2020 12/05/2020 Acute Respiratory Failure With Hypoxia 11/28/2020 0 12/05/2020 Encounters Date Type Specialty Care Team Description 04/02/2022 Clinical Cardiovascular Osman Wesley, Anne glez Communication Disease M.D. 03/14/2022 Hospital Encounter Laboratory Medicine Osman Shaffer Atherosclerotic Heart D.O. Disease Of [place] ve Coronary Artery Without Angina Pectoris 02/09/2022 Hospital Encounter Laboratory Medicine Sammy Bhagat rombocytosis Yuni Cespedes, Unspecified M.D. from Last 3 Months Social History Tobacco [...] Comments Blood Pressure 143/82 03/21/2021 3:10 PM REFUSE LABORER Pulse 71 03/21/2021 3:10 PM REFUSE LABORER Temperature 36.7 ??C (98.1 ??F) 03/21/2021 9:22 AM REFUSE LABORER Respiratory Rate 21 02/24/2021 4:22 PM CDT Oxygen Saturation 98% 03/21/2021 3:10 PM REFUSE LABORER Inhaled Oxygen Concentration - - Weight 86.2 kg (190 lb 0.6 oz) 03/20/2021 4:07 PM REFUSE LABORER Height 178.1 cm (5' 10.12) 03/20/2021 4:07 PM REFUSE LABORER Body Mass Index 27.18 03/20/2021 4:07 PM REFUSE LABORER Plan of Treatment Upcoming Encounters Date Type Specialty Care Team Description 04/06/2022 Clinical Communication Admitting/Central Scheduling 04/09/2022 Appointment Pulmonary Medicine Mario Pitt M.D. [address] [place] [phone] 05/23/2022 Office Visit Cardiovascular Disease Osman Wesley M.D. [address] [place] [phone] Health Maintenance Due Date Last Done Comments [...] history exists Medical Devices Implanted Type Area Behavioral Health Clinician Device Shelf Model / Identifier Expiration Serial / Date Lot Icd Acticor Vr Df 4 - [id number] - [id number] Implant Cardiac BIOTRONIK 11/26/2022 [id number] / Implanted: Qty: 1 on 03/21/2021 by Ellis Serrano M.D., M.P.H. at [facility] Defibrillator [id number] / Procedures Procedure Name Priority Date/Time Associated Diagnosis Comme nts BASIC METABOLIC STAT 03/14/2022 11:49 Atherosclerotic Heart Results for this PANEL, S/P AM REFUSE LABORER Disease Of [place] procedure are in Coronary Artery Without the [...] Results Basic Metabolic Panel (03/14/2022 11:49 AM REFUSE LABORER) P athologist Signature Potassium, P 4.0 3.6 - 5.2 03/14/2022 NPRG mmol/L 6:20 PM REFUSE LABORER Sodium, P 141 135 - 145 03/14/2022 NPRG mmol/L 6:20 PM REFUSE LABORER Chloride, P 104 98 - 107 03/14/2022 NPRG mmol/L 6:20 PM REFUSE LABORER Bicarbonate, P 29 22 - 29 03/14/2022 NPRG mmol/L 6:20 PM REFUSE LABORER Anion Gap, P 8 7 - 15 03/14/2022 NPRG 6:20 PM REFUSE LABORER BUN (Blood Urea 9 8 - 24 03/14/2022 NPRG Nitrogen), P mg/dL 6:20 PM REFUSE LABORER Creatinine 0.94 0.74 - 03/14/2022 NPRG 1.35 mg/dL 6:20 PM REFUSE LABORER Estimated GFR >90 >=60 03/14/2022 NPRG (eGFR) mL/min/BSA 6:20 PM REFUSE LABORER Comment: Estimated GFR calculated using the 2020 CKD_EPI creatinine equation. Calcium, Total, P 9.2 8.6 - 10.0 mg/dL 03/14/2022 6:20 PM REFUSE LABORER NPRG Glucose, P 124 70 - 140 mg/dL 03/14/2022 6:20 PM REFUSE LABORER N PRG Specimen Anatomical Collection Method Collection Time Receive d Time (Source) Location / / Volume Laterality Blood (Blood, 03/14/2022 11:49 03/14/2022 Venous) AM REFUSE LABORER 11:58 AM REFUSE LABORER Humberto Jones MD LAB BLOOD ADD-ON Performing Organization Address City/State/ZIP Code Phon e Number [facility]- [facility] [address] [place], [place] [address] [place] [address] [place] [address] [place] [address] [address] [facility] BCR/ABL1 Qualitative Diagnostic Assay with Reflex to [...] nscripts was evaluated using a qualitative, reverse culture manager PCR-bas ed assay. The assay detects nearly all published and theoretical BCR/ABL1 fusion forms including the common e13/e14-a2 (p210) and e1-a2 (p190 ) transcripts, as well as other rarer variants (e.g. e19-a2 (p230), e13/e14-a3, e1- a3, etc.). The limit of detection for this assay is 0.1%. Please contact [facility] at [phone] with questions or if additional testing is requ ired. See [facility] Test Catalog for additional method jojo barraza Signing Pathologist: Guillermo Pagan M.D. (Jane), Ph.D. Comment: ----ADDITIONAL INFORMATION---- This test was developed and its performa nce characteristics determined by [facility] in a manner consistent with CLIA requirements. [...] Organization Address City/State/ZIP Code Phon e Number [facility] - [address] [place], [place] [address] [place] [address] Laboratories-[facility] [address] [facility] JAK2 V617F Mutation Detection, Blood (02/09/2022 9:37 [...] has been deter mined at 0.06% (see [facility] Interpretive Handbook for m ethod details). This test was developed and its performa nce characteristics determined by [facility] in a manner consistent with CLIA requirements. [...] Organization Address City/State/ZIP Code Phon e Number [facility] - [address] [place], [place] [address] [place] [address] [facility] [address] [facility] BCR/ABL1, p210, mRNA Detection, Reverse Instrumentation Controls Engineer-PCR (RT-PCR), Quantitative, Monitoring ChronicMyeloid Leukemia (CML) (02/09/2022 [...] level was evaluated using a quantitative, reverse culture manager PCR. The analytical sensitivity of this assay [...] all possible fusion forms. Please contact the [facility] at [phone] with questions or if additional testing is required. See the [facility] Interpretive Handbook for m ethod details. [...] and its performa nce characteristics determined by [facility] in a manner consistent with CLIA requirements. [...] LAB BLOOD NON ADD-ON Performing Organization Address City/[facility]/ZIP Code Phon e Number [facility] - [address] [place], [place] [address] [facility] [facility] [place] [address] [facility] 200 [facility] (ABNORMAL) Iron and Total Iron-Binding Capacity (02/09/2022 [...] M.D. LAB BLOOD ADD-ON Performing Organization Address City/[facility]/ZIP Code Phon e Number [facility]- [address] [place] [address] [place] [address] (ABNORMAL) CBC with Differential, Blood (02/09/2022 [...] Organization Address City/State/ZIP Code Phon e Number [facility]- [address] [place], [place] [address] [place] [address] [place] [address] [facility] [address] [place] Ferritin (02/09/2022 9:37 AM CDT) P athologist Signature Ferritin, S 168 31 - 409 02/09/2022 MKTO mcg/L 3:23 PM CDT Comment: Biotin has [...] Laterality Blood (Blood, 02/09/2022 9:37 AM 02/10/20 22 2:47 Venous) CDT PM CDT Yuni Bhagat M.D. LAB BLOOD ADD-ON Performing Organization Address City/State/ZIP Code Phon e Number [facility]- [address] [place] [phone] [place] [address] [address] from Last 3 Months Insurance Payer Benefit Plan / Subscriber ID Effective Phone Address T ype Group Dates MEDICARE MEDICARE A AND B [id number] 2008-Prese [address] [place] [address] GENERIC GENERIC MEDICAID Effective for Medicaid MEDICAID NON PARTICIPATING all dates QMB Advance Directives For more information, please contact: [phone] Latest Code Status on File Code Status Date Activated Date Inactivated Comments Full Code 11/28/2020 6:05 AM 12/05/2020 6:37 PM Question Answer Comments Full Code: Not Discussed Due to: Patient does not have the capacity Care Teams Arc Air Operator Relationship Specialty Start Date End Date Elsewhere, Pcp PCP - General 02/22/21
--- OUTSIDE RECORDS SUMMARY | 2022-04-02 19:37 | XMS_ITS | Encounter Summary ---
:1965 Author Organization [facility] Address [address] [place] [address] Care Team Providers Name Role Phone Elsewhere, Pcp Primary Care Provider Unavailable Reason for Referral Outpatient (Routine) - Closed Specialty Diagnoses / Procedures Referred By Contact Refer red To Contact Diagnoses Failure Heart (HCC) Osman Wesley M.D. [facility] Procedures Echo Transthoracic (TTE) [address] [place], [place] [phone] Referral ID Status Reason Start Date Expiration Date Visits Requ ested Visits Authorized [id number] Closed 02/09/2021 02/09/2022 1 1 CTOR OF SALES AND MARKETING Reason for Visit Outpatient (Routine) - Closed Specialty Diagnoses / Procedures Referred By Contact Refer red To Contact Diagnoses Failure Heart (HCC) Osman Wesley M.D. [facility] Procedures Echo Transthoracic (TTE) [address] [place] [address] Referral ID Status Reason Start Date Expiration Date Visits Requ ested Visits Authorized [id number] Closed 02/09/2021 02/09/2022 1 1 Encounter Details Date Type Department Care Team Description 05/15/2021 Hospital Encounter Department of Osman Wesley Heart (HCC) Cardiovascular Diseases Anita Ahmadi in [facility] [address] [facility] [address] [place] [phone] [phone] Social History Tobacco Use Types Packs/Day Years [...] More than 4 times per year 02/09/2021 christianity services? Do you belong to any clubs [...] as directed for 1 each 0 2020 [facility] diabetes control. blood-glucose meter Test as directed [...] 0 03/13/2021 03/13/2022 reader (FreeStyle Jose 2 [place]) miscIndications: Diabetes Mellitus Type 2 Hyperglycemia (HCC) [...] Pulmonary Medicine Mario Pitt M.D. [address] [place] [address] 05/23/2022 Office Visit Cardiovascular Disease Osman Wesley M.D. [address] [place] [address] documented as of this encounter Procedures Procedure Name Priority Date/Time Associated Diagnosis Comme nts (TTE) 2D LIMITED Routine 05/15/2021 1:20 PM Failure Heart (HCC ) Results for this WITH COLOR , DIRECTOR OF SALES AND MARKETING procedure are i n DOPPLER AND the results CONTRAST section. documented in this encounter Results (TTE) 2D LIMITED WITH COLOR , DOPPLER AND CONTRAST (05/15/2021 1:20 PM DIRECTOR OF SALES AND MARKETING) P athologist Signature Ejection 42 MC CV [...] / / Volume Laterality 05/15/2021 12:18 PM DIRECTOR OF SALES AND MARKETING Impressions 05/15/2021 8:25 PM DIRECTOR OF SALES AND MARKETING Echocardiogram performed per left ventricular function protocol. [...] Echocardiography Contrast Administration Protocol Referen ce Document [id number]. Patient met an inclusion criterion and did not have contraindicat ions in screening sections. For the complete report, see the [employer] Documents. Narrative 05/15/2021 8:25 PM DIRECTOR OF SALES AND MARKETING For the complete report, see the [employer] Documents. Final Impressions 1. Moderately enlarged left [...] original. For the complete report, see the [employer] Documents. Final Impressions 1. Moderately enlarged left [...] Echocardiography Contrast Administration Protocol Referen ce Document [id number]. Patient met an inclusion criterion and did [...] % injection 10 Given 05/15/2021 1:17 PM DIRECTOR OF SALES AND MARKETING 6 mL mL 10 mL, intravenous, As needed, line care, Starting on 05/15/21 at 1312, Prior to and following infusion and between multiple consecutive infusions: sodium chloride 0.9 % injection sulfur hexafluoride microspheres injection Given 05/15/2021 1:16 PM DIRECTOR OF SALES AND MARKETING 4 mL (LUMASON) intravenous, As needed, contrast, Starting on Sat05/15/21 at 1312, See protocol. Reconstitute each 25 mg vial with 5 mL NS. documented in this encounter Care Teams Lightning Protection Installer Relationship Specialty Start Date End Date Elsewhere, Pcp PCP - General 02/22/21 documented as of this encounter
--- OUTSIDE RECORDS SUMMARY | 2022-04-02 19:37 | XMS_ITS | Encounter Summary ---
:1965 Author Organization [facility] Address [address] [place] [address] Care Team Providers Name Role Phone Elsewhere, Pcp Primary Care Provider Unavailable Encounter Details Date Type Department Care Team Description 02/09/2022 Hospital Department of Yuni Bhagat Encounter Saundra Cespedes M.D. Unspecified Medicine in [address], [address], [address] [place] [address] [place], [place] [phone] [facility] Social History Tobacco Use Types Packs/Day Years [...] or slept in a custodial (including now)? Education Answer Date Recorded What [...] as directed for 1 each 0 2020 [facility] diabetes control. blood-glucose meter Test as directed [...] 0 03/13/2021 03/13/2022 reader (FreeStyle Jose 2 [place]) miscIndications: Diabetes Mellitus Type 2 Hyperglycemia (HCC) flash glucose sensor 1 kit every 14 6 kit 3 03/13/2021 03/13/2022 (FreeStyle Jose 2 (fourteen) days. Sensor) kitIndications: Diabetes Mellitus Type 2 Hyperglycemia (HCC) documented as of this encounter Plan of Treatment Upcoming Encounters Date Type Specialty Care Team Description 04/06/2022 Clinical Communication Admitting/Central Scheduling 04/09/2022 Appointment Pulmonary Medicine Mario Pitt M.D. [address] [place] [address] 05/23/2022 Office Visit Cardiovascular Disease Osman Wesley M.D. [address] [place] [address] documented as of this encounter Procedures Procedure [...] Organization Address City/State/ZIP Code Phon e Number [facility]- [address] [place] [address] [place] [address] [address] JAK2 [id number] Mutation Detection, Blood (02/09/2022 [...] has been deter mined at 0.06% (see [facility] Interpretive Handbook for m tamelaod details). This test was developed and its performa nce characteristics determined by [facility] in a manner consistent with CLIA requirements. [...] Address City/State/ZIP Code Phon e Number [facility] - [address] [place], [place] [address] [facility] [place] [address] [facility] [address] Ferritin (02/09/2022 9:37 AM CDT) P athologist [...] Organization Address City/State/ZIP Code Phon e Number [facility]- [address] [place] [address] [place] [address] System in [place] [address] [place] [address] (ABNORMAL) CBC with Differential, Blood (02/09/2022 9:37 AM CDT) [facility] Method Time Signature Hemoglobin 14.0 13.2 - [...] Organization Address City/State/ZIP Code Phon e Number [facility]- [address] [place], [place] [address] [facility]G [facility] [place] [address] BCR/ABL1 Qualitative Diagnostic Assay with Reflex to [...] nscripts was evaluated using a qualitative, reverse spinneret cleaner PCR-bas ed assay. The assay detects nearly all published and theoretical BCR/ABL1 fusion forms including the common e13/e14-a2 (p210) and e1-a2 (p190 ) transcripts, as well as other rarer variants (e.g. e19-a2 (p230), e13/e14-a3, e1- a3, etc.). The limit of detection for this assay is 0.1%. Please contact [facility] at [phone] with questions or if additional testing is requ ired. See [facility] Test Catalog for additional method jojo barraza Signing Pathologist: Guillermo Pagan M.D. (Jane), Ph.D. Comment: ----ADDITIONAL INFORMATION---- This test was developed and its performa nce characteristics determined by [facility] in a manner consistent with CLIA requirements. [...] Address City/State/ZIP Code Phon e Number [facility] - [address] [place], [place] [address] [facility] [place] [address] [facility] [address] BCR/ABL1, p210, mRNA Detection, Reverse Crystal Calibrator-PCR (RT-PCR), Quantitative, Monitoring ChronicMyeloid Leukemia (CML) (02/09/2022 [...] level was evaluated using a quantitative, reverse spinneret cleaner PCR. The analytical sensitivity of this assay [...] all possible fusion forms. Please contact the [facility] at [phone] with questions or if additional testing is required. See the [facility] Interpretive Handbook for m ethod details. [...] and its performa nce characteristics determined by [facility] in a manner consistent with CLIA requirements. This test has not been cleared or approved by the [place] d and Drug Administration. Specimen Anatomical Collection Method Collection Time Receive d Time (Source) Location / / Volume Laterality Blood (Blood, 02/09/2022 9:37 AM 02/11/20 22 7:14 Venous) CDT AM CDT Narrative This result has an attachment that is no t available. Yuni Bhagat M.D. LAB BLOOD NON ADD-ON Performing Organization Address City/State/ZIP Code Phon e Number [facility] - [address] [place], [place] [address] [facility] [place] [address] [facility] [address] documented in this encounter Visit Diagnoses Diagnosis Thrombocytosis Unspecified documented in this encounter Care Teams Private Wealth Advisor Relationship Specialty Start Date End Date Elsewhere, Pcp PCP - General 02/22/21 documented as of this encounter
--- OUTSIDE RECORDS SUMMARY | 2022-04-02 19:37 | XMS_ITS | Encounter Summary ---
:1965 Author Organization [facility] Address [address] [place] [address] Care Team Providers Name Role Phone Elsewhere, Pcp Primary Care Provider Unavailable Reason for Visit Reason Comments Follow-up Pre-visit Testing Orders Encounter Details Date Type Department Care Team Description 06/13/2021 Clinical Division of Bertin, Follow-up; Communication Endocrinology in Rahat Duran M.D. Pre-visit Testing [place], [place] [address] [facility] Orders [address] [place] [address] [phone] Social History Tobacco Use Types Packs/Day Years [...] PASS schedule 7:30 labs and send [employer] documented in this encounter Plan of Treatment Upcoming Encounters Date Type Specialty Care Team Description 04/06/2022 Clinical Communication Admitting/Central Scheduling 04/09/2022 Appointment Pulmonary Medicine Mario Pitt M.D. [address] [place] [address] 05/23/2022 Office Visit Cardiovascular Disease Osman Wesley M.D. [address] [place] [address] documented as of this encounter Visit Diagnoses Not on filedocumented in this encounter Care Teams Blueberry Grower Relationship Specialty Start Date End Date Elsewhere, Pcp PCP - General 02/22/21 documented as of this encounter
--- OUTSIDE RECORDS SUMMARY | 2022-04-02 19:37 | XMS_ITS | Encounter Summary ---
:1965 Author Organization [facility] Address [address] [place] [address] Care Team Providers Name Role Phone Elsewhere, Pcp Primary Care Provider Unavailable Encounter Details Date Type Department Care Team Description 03/24/2021 Documentation Department of Jomar Warner, Cardiovascular Medicine in Anita, M.S. [place], [place] [address] [facility] [address] [place] [phone] [phone] (Wo rk) Social History Tobacco Use Types [...] or relatives? How often do you attend moravian or More than 4 times per year 02/09/2021 yarsanism services? Do you belong to any clubs or Yes 02/09/2021 organizations such as moravian groups, unions, fraternal or athletic groups, or [...] at the site. They are currently staying [facility] (2 hours away from [place]), with plans to drive back to [place] tomorrow. I shared this information with Dr. Olivares. We will have an additional prescription of oxycodone [facility]to a [facility] [place] This should last him for several days before he reaches [place]. He will be able to see someone at [facility] should he have ongoing symptoms next week. They were comfortable with this plan and had no further questions. 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 [address] [place] [address] 05/23/2022 Office Visit Cardiovascular Disease Osman Wesley M.D. [address] [place] [address] documented as of this encounter Visit Diagnoses Not on filedocumented in this encounter Care Teams Fruit Or Nut Farmer Relationship Specialty Start Date End Date Elsewhere, Pcp PCP - General 02/22/21 documented as of this encounter
--- OUTSIDE RECORDS SUMMARY | 2022-04-02 19:37 | XMS_ITS | Encounter Summary ---
:1965 Author Organization [facility] Address [address] [place] [address] Care Team Providers Name Role Phone Elsewhere, Pcp Primary Care Provider Unavailable Encounter Details Date Type Department Care Team Description 05/15/2021 Hospital Encounter Department of Osman Wesley [facility] Heart Laboratory Medicine Anita hAmadi Disease [place] Coronary and Pathology, [address] [facility] Artery With Other Forms [facility] in [place], [place] Angina Pectoris (Stable [facility] [phone] Angina/Angina Of [place] [phone] Exertion) ([facility]) [address] [facility] [[email or web address]] (Work) [place], [place] [phone] [address] (Fax) [phone] Social History Tobacco Use Types Packs/Day Years [...] directed for 1 each 0 2020 [facility] [place]. blood-glucose meter Test as [...] 0 03/13/2021 03/13/2022 reader (FreeStyle Jose 2 [place]) miscIndications: Diabetes Mellitus Type 2 Hyperglycemia (HCC) [...] Pulmonary Medicine Mario Pitt M.D. [address] [place] [phone] 05/23/2022 Office Visit Cardiovascular Disease Osman Wesley M.D. [address] [place] [address] documented as of this encounter Procedures Procedure Name Priority Date/Time Associated Diagnosis Comme nts BASIC METABOLIC Routine 05/15/2021 1:43 PM Atherosclerotic Hea rt Results for this PANEL, S/P ENGINEERING FACULTY MEMBER Disease [place] Coronary proc edure are in Artery With Other Forms the results Angina Pectoris (Stable sect ion. Angina/Angina Of Exertion) ([facility]) documented in this encounter Results Basic Metabolic Panel (05/15/2021 1:43 PM ENGINEERING FACULTY MEMBER) athologist Signature Potassium, S 4.2 3.6 - 5.2 05/15/2021 DTL mmol/L 2:47 PM ENGINEERING FACULTY MEMBER Sodium, S 144 135 - 145 05/15/2021 DTL mmol/L 2:47 PM ENGINEERING FACULTY MEMBER Chloride, S 104 98 - 107 05/15/2021 DTL mmol/L 2:47 PM ENGINEERING FACULTY MEMBER Bicarbonate, S 27 22 - 29 05/15/2021 DTL mmol/L 2:47 PM ENGINEERING FACULTY MEMBER Anion Gap 13 7 - 15 05/15/2021 DTL 2:47 PM ENGINEERING FACULTY MEMBER BUN (Blood Urea 11 8 - 24 05/15/2021 DTL Nitrogen), S mg/dL 2:47 PM ENGINEERING FACULTY MEMBER Creatinine 1.10 0.74 - 05/15/2021 DTL 1.35 mg/dL 2:47 PM ENGINEERING FACULTY MEMBER eGFR-Non 75 >=60 05/15/2021 DTL Black/ mL/min/BSA 2:47 PM ENGINEERING FACULTY MEMBER [place] Comment: ----ADDITIONAL INFORMATION---- Estimated GFR calculated using the 2009 CKD_EPI creatinine equation. eGFR-Black/ 87 >=60 mL/min/BSA 2021 2:47 PM ENGINEERING FACULTY MEMBER DTL Comment: ----ADDITIONAL INFORMATION---- Estimated GFR calculated using the 2009 CKD_EPI creatinine equation. Calcium, Total, S 9.4 8.6 - 10.0 mg/dL 05/15/2021 2:47 PM ENGINEERING FACULTY MEMBER DTL Glucose, S 81 70 - 140 mg/dL 05/15/2021 2:47 PM ENGINEERING FACULTY MEMBER D TL Specimen Anatomical Collection Method Collection Time Receive d Time (Source) Location / / Volume Laterality Blood (Blood, 05/15/2021 1:43 PM 05/15/19 2:20 Venous) ENGINEERING FACULTY MEMBER PM ENGINEERING FACULTY MEMBER Osman Wesley M.D. LAB BLOOD ADD-ON Performing Organization Address City/State/ZIP Code Phon e Number [facility] - [address] [place], [place] [address] [facility] [place] [address] Laboratories-[facility] [address] documented in this encounter Visit Diagnoses Diagnosis Atherosclerotic Heart Disease [place] Cor onary Artery With Other Forms Angina Pectoris (Stable Angina/Angina Of Exertion) (HCC) documented in this encounter Care Teams Training Program Manager Relationship Specialty Start Date End Date Elsewhere, Pcp PCP - General 02/22/21 documented as of this encounter
--- OUTSIDE RECORDS SUMMARY | 2022-04-02 19:37 | XMS_ITS | Encounter Summary ---
:1965 Author Organization [facility] Address [address] [place] [address] Care Team Providers Name Role Phone Elsewhere, Pcp Primary Care Provider Unavailable Encounter Details Date Type Department Care Team Description 03/22/2021 Hospital Department of Jorje, Cardiomyopathy Encounter Cardiovascular Aurelio Sharma, Ischemic Diseases in M.D., Ph.D. [place], [place] [address] [address] [place] [phone] Social History Tobacco Use Types Packs/Day Years [...] for 1 each 0 2020 [facility] [place]. blood-glucose meter Test [...] 0 03/13/2021 03/13/2022 reader (FreeStyle Jose 2 [place]) miscIndications: Diabetes Mellitus Type 2 Hyperglycemia (HCC) [...] Appointment Pulmonary Medicine Mario Pitt M.D. [address] [place] [phone] 05/23/2022 Office Visit Cardiovascular Disease Osman Wesley M.D. [address] [place] [phone] documented as of this encounter Procedures Procedure Name Priority Date/Time Associated Diagnosis Comme nts ICD SINGLE CHAMBER Routine 03/22/2021 8:19 Cardiomyopathy Resu lts for this INTERROGATION WITH AM INSURANCE FOLLOW UP SPECIALIST Ischemic procedure are in PROGRAMMING the results section. documented in this encounter Results ICD SINGLE CHAMBER INTERROGATION WITH PROGRAMMING (03/22/2021 8:19 AM INSURANCE FOLLOW UP SPECIALIST) Component Value Ref Test Analysis Performed At [facility] Range Method Time Signature Date Time [id number] [facility] Interrogation LAB SYSTEM Session Implantable [email or web address] [place] [facility] Pulse Generator LAB SYSTEM Hospital Food Service Worker Implantable [id number] Acticor 7 [facility] Pulse Generator VR-T DX LAB SYSTEM Model Implantable [id number] [facility] Pulse Generator LAB SYSTEM Serial Number Type In Clinic [facility] Interrogation LAB SYSTEM Session Re-programmed Unknown FOUNDATION During Session LAB SYSTEM Clinic Name [facility] LAB SYSTEM [place] Implantable Defibrillator [facility] Pulse Generator LAB SYSTEM Type Implantable [id number] [facility] Pulse Generator LAB SYSTEM Implant Date Implantable Lead [email or web address] [facility] Hospital Food Service Worker LAB SYSTEM Implantable Lead [id number] Plexa DF-1 FOUND ATNEXAGE Model S DX 65/15 LAB SYSTEM Implantable Lead [id number] [facility] Serial Number LAB SYSTEM Implantable Lead [id number] [facility]OUND[facility] ON Implant Date LAB SYSTEM Implantable Lead UNKNOWN FOUNDATION Location Detail LAB SYSTEM 1 Implantable Lead Lead length: 65 FOUNDAT ION Special Function cm LAB SYSTEM Implantable Lead Right Ventricle [facility] Location LAB SYSTEM [place] Setting VVI [facility] Mode (NBG Code) LAB SYSTEM [place] Setting 40 {beats}/ [facility] Lower Rate Limit min LAB SYSTEM [place] Setting 40 {beats}/ [facility] Hysterisis Rate min LAB SYSTEM [place] Setting 40 {beats}/ [facility] Night Rate min LAB SYSTEM [place] Setting AT Unknown FOUNDATION Mode Switch Mode LAB SYSTEM Lead Channel Bipolar [facility] Setting Sensing LAB SYSTEM Polarity Lead Channel 1.0 mV [facility] Setting Sensing LAB SYSTEM Sensitivity Lead Channel Bipolar [facility] Setting Sensing LAB SYSTEM Polarity Lead Channel 0.8 mV [facility] Setting Sensing LAB SYSTEM Sensitivity Lead Channel Unknown [facility] Setting Sensing LAB SYSTEM Polarity Lead Channel Unknown [facility] Setting Sensing LAB SYSTEM Cathode Location Lead Channel Unknown [facility] Setting Sensing LAB SYSTEM Cathode Terminal Ventricular Unknown [facility] chambers paced LAB SYSTEM during DUST MIXER pacing. Lead Channel Unknown [facility] Setting Pacing LAB SYSTEM Polarity Lead Channel Unknown [facility] Setting Sensing LAB SYSTEM Cathode Location Lead Channel Unknown [facility] Setting Sensing LAB SYSTEM Cathode Terminal Lead Channel Bipolar [facility] Setting Pacing LAB SYSTEM Polarity Lead Channel 0.4 ms [facility] Setting Pacing LAB SYSTEM Pulse Width Lead Channel 1.4 V [facility] Setting Pacing LAB SYSTEM Amplitude Lead Channel Unknown [facility] Setting Pacing LAB SYSTEM Polarity Lead Channel Unknown [facility] Setting Sensing LAB SYSTEM Cathode Location Lead Channel Unknown [facility] Setting Sensing LAB SYSTEM Cathode Terminal Zone Setting VF [facility] Type Category LAB SYSTEM Zone Setting 260 ms [facility] Detection LAB SYSTEM Interval Zone Setting [place] [facility] Type Category LAB SYSTEM Zone Setting 320 ms [facility] Detection LAB SYSTEM Interval Zone Setting [place] [facility] Type Category LAB SYSTEM Zone Setting 400 ms [facility] Detection LAB SYSTEM Interval Lead Channel 8.8 mV [facility] Sensing LAB SYSTEM Intrinsic Amplitude Lead Channel 620 ohm [facility] Impedance Value LAB SYSTEM Lead Channel 22.7 mV [facility] Sensing LAB SYSTEM Intrinsic Amplitude Lead Channel 0.5 V [facility] Pacing Threshold LAB SYSTEM Amplitude Lead Channel 0.4 ms [facility] Pacing Threshold LAB SYSTEM Pulse Width Battery Status Unknown [facility] LAB SYSTEM Battery Voltage 3.07 V [facility] LAB SYSTEM Capacitor Charge FULL_ENERGY [facility] Type LAB SYSTEM Capacitor Charge Reformation [facility] Type LAB SYSTEM Capacitor Charge Shock [facility] Type LAB SYSTEM [place] Statistic 0 % [facility] RV Percent Paced LAB SYSTEM Atrial Tachy 0 [facility] Statistic Number LAB SYSTEM Of Mode Switches Therapy 0 [facility] Statistic Recent LAB SYSTEM Shocks Delivered Therapy 0 [facility]ATION Statistic Total LAB SYSTEM Shocks Delivered Therapy 0 [facility]ATION Statistic Total LAB SYSTEM Shocks Aborted Episode 0 [facility] Statistic Recent LAB SYSTEM Count Episode Other [facility] Statistic Type LAB SYSTEM Category Anatomical Region Laterality Modality Other Specimen (Source) Anatomical Collection Method Collection Time Re ceived Time Location / / Volume Laterality 03/22/2021 8:08 AM INSURANCE FOLLOW UP SPECIALIST Narrative 03/27/2021 8:53 AM INSURANCE FOLLOW UP SPECIALIST PURPOSE OF VISIT: Routine post-implant device interrogation [...] Ischemic documented in this encounter Care Teams Wildlife And Game Protector Relationship Specialty Start Date End Date Elsewhere, Pcp PCP - General 02/22/21 documented as of this encounter
--- OUTSIDE RECORDS SUMMARY | 2022-04-02 19:37 | XMS_ITS | Encounter Summary ---
:1965 Author Organization [facility] Address [address] [place] [address] Care Team Providers Name Role Phone Elsewhere, Pcp Primary Care Provider Unavailable Encounter Details Date Type Department Care Team Description 03/14/2022 Hospital Encounter Department of Deena, Atherosc lerotic Heart Laboratory Medicine Daniel Brewer Disease [place] in [place], [facility] [address] Coronary Sis ry Without [place] Angina Pectoris [address] [place] [facility] [phone] [phone] Social History Tobacco Use Types Packs/Day Years [...] More than 4 times per year 02/09/2021 denominational services? Do you belong to any clubs [...] Pulmonary Medicine Mario Pitt M.D. [address] [place] [phone] 05/23/2022 Office Visit Cardiovascular Disease Osman Wesley M.D. [address] [place] [address] documented as of this encounter Procedures Procedure Name Priority Date/Time Associated Diagnosis Comme nts BASIC METABOLIC STAT 03/14/2022 11:49 Atherosclerotic Heart Results for this PANEL, S/P AM VISUAL ARTS TEACHER Disease [place] procedure are in Coronary Artery Without the results Angina Pectoris section. documented in this encounter Results Basic Metabolic Panel (03/14/2022 11:49 AM VISUAL ARTS TEACHER) P athologist Signature Potassium, P 4.0 3.6 - 5.2 03/14/2022 NPRG mmol/L 6:20 PM VISUAL ARTS TEACHER Sodium, P 141 135 - 145 03/14/2022 NPRG mmol/L 6:20 PM VISUAL ARTS TEACHER Chloride, P 104 98 - 107 03/14/2022 NPRG mmol/L 6:20 PM VISUAL ARTS TEACHER Bicarbonate, P 29 22 - 29 03/14/2022 NPRG mmol/L 6:20 PM VISUAL ARTS TEACHER Anion Gap, P 8 7 - 15 03/14/2022 NPRG 6:20 PM VISUAL ARTS TEACHER BUN (Blood Urea 9 8 - 24 03/14/2022 NPRG Nitrogen), P mg/dL 6:20 PM VISUAL ARTS TEACHER Creatinine 0.94 0.74 - 03/14/2022 NPRG 1.35 mg/dL 6:20 PM VISUAL ARTS TEACHER Estimated GFR >90 >=60 03/14/2022 NPRG (eGFR) mL/min/BSA 6:20 PM VISUAL ARTS TEACHER Comment: Estimated GFR calculated using the 2020 CKD_EPI creatinine equation. Calcium, Total, P 9.2 8.6 - 10.0 mg/dL 03/14/2022 6:20 PM VISUAL ARTS TEACHER NPRG Glucose, P 124 70 - 140 mg/dL 03/14/2022 6:20 PM VISUAL ARTS TEACHER N PRG Specimen Anatomical Collection Method Collection Time Receive d Time (Source) Location / / Volume Laterality Blood (Blood, 03/14/2022 11:49 03/14/2022 Venous) AM VISUAL ARTS TEACHER 11:58 AM VISUAL ARTS TEACHER Humberto Jones MD LAB BLOOD ADD-ON Performing Organization Address City/State/ZIP Code Phon e Number [facility]- [address] [place], [place] [address] [place] [address] [facility] [address] documented in this encounter Visit Diagnoses Diagnosis Atherosclerotic Heart Disease [place] Coronary Artery Without Angina Pectoris documented in this encounter Care Teams Chief Crna Relationship Specialty Start Date End Date Elsewhere, Pcp PCP - General 02/22/21 documented as of this encounter
--- OUTSIDE RECORDS SUMMARY | 2022-04-02 19:37 | XMS_ITS | Encounter Summary ---
:1965 Author Organization [facility] Address [address] [place] [address] Care Team Providers Name Role Phone Elsewhere, Pcp Primary Care Provider Unavailable Reason for Visit Reason Comments Chest Pain CIED site post surgical pain Encounter Details Date Type Department Care Team Description 03/24/2021 Documentation Department of Triston Olivares Chest Pain (CIED Cardiovascular Medicine Anita Bright site post surgical in [facility] rotating equipment specialist [address] [facility] pain) [address] [place] [phone] [phone] Social History Tobacco Use Types Packs/Day Years [...] or relatives? How often do you attend congregational or More than 4 times per year 02/09/2021 adventism services? Do you belong to any clubs or Yes 02/09/2021 organizations such as congregational groups, unions, fraternal or athletic groups, or [...] CST Outside Record Review: Discussed with Dr. Warenr. Patient underwent implant earlier this week and [...] Hypertension Essential Primary ??? Atherosclerotic Heart Disease [place] Coronary Artery With Other Forms Angina Pectoris (Stable Angina/Angina Of Exertion) (HCC) ??? Pneumothorax Unspecified ??? Cardiomyopathy Ischemic ??? Congestive Heart Failure Ejection Fraction Less Than 40 Percent (HCC) ??? Failure Heart (HCC) ??? Hyperlipidemia On Treatment ??? Automatic Implantable Cardiac Defibrillator Status Post RT HOST documented in this encounter Plan of Treatment Upcoming Encounters Date Type Specialty Care Team Description 04/06/2022 Clinical Communication Admitting/Central Scheduling 04/09/2022 Appointment Pulmonary Medicine Mario Pitt M.D. [address] [place] [address] 05/23/2022 Office Visit Cardiovascular Disease Osman Wesley M.D. [address] [place] [address] documented as of this encounter Visit Diagnoses Not on filedocumented in this encounter Care Teams Loom Changeover Operator Relationship Specialty Start Date End Date Elsewhere, Pcp PCP - General 02/22/21 documented as of this encounter
--- OUTSIDE RECORDS SUMMARY | 2022-04-02 19:38 | XMS_ITS | Encounter Summary ---
:[address] [facility] Address [address] [place] [address] Care Team Providers Name Role Phone Elsewhere, Pcp Primary Care Provider Unavailable Encounter Details Date Type Department Care Team Description 03/20/2021 [facility] Department of Jorje, Cardiomyopathy Encounter Laboratory Aurelio Sharma, Ischemic Medicine and Anita, Ph.D. Pathology, [address] [phone] [place] [address] (Work) [place] [phone] Social History Tobacco Use Types [...] directed for 1 each 0 2020 [facility] [place] diabetes control. blood-glucose [...] 0 03/13/2021 03/13/2022 reader (FreeStyle Jose 2 [place]) miscIndications: Diabetes Mellitus Type 2 Hyperglycemia (HCC) [...] Pulmonary Medicine Mario Pitt M.D. [address] [place] [address] 05/23/2022 Office Visit Cardiovascular Disease Osman Wesley M.D. [address] [place] [address] documented as of this encounter Procedures Procedure Name Priority Date/Time Associated Diagnosis Comme nts CBC WITH Routine 03/20/2021 3:00 PM Cardiomyopathy Ischemi c Results for this DIFFERENTIAL, B CONDOMINIUM PROPERTY MANAGER procedure ar e in the results section. documented in this encounter Results (ABNORMAL) CBC with Differential, Blood (03/20/2021 3:00 PM CONDOMINIUM PROPERTY MANAGER) [facility] Time Signature Hemoglobin 12.9 (L) 13.2 - 03/20/2021 DTL 16.6 g/dL 3:34 PM CONDOMINIUM PROPERTY MANAGER Hematocrit 40.1 38.3 - 03/20/2021 DTL 48.6 % 3:34 PM CONDOMINIUM PROPERTY MANAGER Erythrocytes 4.75 4.35 - 03/20/2021 DTL 5.65 3:34 PM CONDOMINIUM PROPERTY MANAGER x10(12)/L MCV 84.4 78.2 - 03/20/2021 DTL 97.9 fL 3:34 PM CONDOMINIUM PROPERTY MANAGER RBC Distrib Width 14.3 11.8 - 03/20/2021 DTL 14.5 % 3:34 PM CONDOMINIUM PROPERTY MANAGER Platelet Count 343 (H) 135 - 317 03/20/2021 DTL x10(9)/L 3:34 PM CONDOMINIUM PROPERTY MANAGER Leukocytes 13.5 (H) 3.4 - 9.6 03/20/2021 DTL x10(9)/L 3:34 PM CONDOMINIUM PROPERTY MANAGER Neutrophils 8.93 (H) 1.56 - 03/20/2021 DTL 6.45 3:34 PM CONDOMINIUM PROPERTY MANAGER x10(9)/L Lymphocytes 3.12 (H) 0.95 - 03/20/2021 DTL 3.07 3:34 PM CONDOMINIUM PROPERTY MANAGER x10(9)/L Monocytes 0.84 (H) 0.26 - 03/20/2021 DTL 0.81 3:34 PM CONDOMINIUM PROPERTY MANAGER x10(9)/L Eosinophils 0.42 0.03 - 03/20/2021 DTL 0.48 3:34 PM CONDOMINIUM PROPERTY MANAGER x10(9)/L Basophils 0.16 (H) 0.01 - 03/20/2021 DTL 0.08 3:34 PM CONDOMINIUM PROPERTY MANAGER x10(9)/L Specimen Anatomical Collection Method Collection Time Receive d Time (Source) Location / / Volume Laterality Blood (Blood, 03/20/2021 3:00 PM 03/20/20 3:27 Venous) CONDOMINIUM PROPERTY MANAGER PM CONDOMINIUM PROPERTY MANAGER Aurelio Recinos M.D., Ph.D. LAB BLOOD ADD-ON Performing Organization Address City/State/ZIP Code Phon e Number [facility] - [address] [place], [place] [address] [facility] [place] [address] Laboratories-[facility] [address] documented in this encounter Visit Diagnoses Diagnosis Cardiomyopathy Ischemic documented in this encounter Care Teams Plant Guide Relationship Specialty Start Date End Date Elsewhere, Pcp PCP - General 02/22/21 documented as of this encounter
--- OUTSIDE RECORDS SUMMARY | 2022-04-02 19:38 | XMS_ITS | Encounter Summary ---
:1965 Author Organization [facility] Address [address] [place] [address] Care Team Providers Name Role Phone Elsewhere, Pcp Primary Care Provider Unavailable Encounter Details Date Type Department Care Team Description 03/21/2021 Hospital Encounter Division of [place], Cardiomyo [place] Ischemic; Cardiovascular Ellis K, Diabetes Janel itus Type 2 Hyperglycemia (HCC) Diseases in [place], M.P .H. [place] [address] [facility] [address] [place] [phone] Social History Tobacco Use Types Packs/Day Years [...] or relatives? How often do you attend protestant or More than 4 times per year 02/09/2021 orthodox services? Do you belong to any clubs or Yes 02/09/2021 organizations such as protestant groups, unions, fraternal or athletic groups, or [...] Comments Blood Pressure 143/82 03/21/2021 3:10 PM TRAVEL INFORMATION CENTER SUPERVISOR Pulse 71 03/21/2021 3:10 PM TRAVEL INFORMATION CENTER SUPERVISOR Temperature 36.7 ??C (98.1 ??F) 03/21/2021 9:22 AM TRAVEL INFORMATION CENTER SUPERVISOR Respiratory Rate - - Oxygen Saturation 98% 03/21/2021 3:10 PM TRAVEL INFORMATION CENTER SUPERVISOR Inhaled Oxygen Concentration - - Weight - [...] Hypertension Essential Primary 4. Atherosclerotic Heart Disease [place] Coronary Artery With Other Forms Angina Pectoris [...] directed for diabetes control. FreeStyle Jose 2 [place] misc 1 kit daily. Generic drug: flash [...] The first appointment will be at the [facility]. The patient will be contacted by [facility] to set up this appointment. After this appointment, routine follow-up will continue with remote home monitoring. A remote home monitor has been given to the patient. They were instructed to verify communication between the monitor and the device, and instructed to send a transmission within the first week after returning home. Then call the [facility] at ([phone]) during regular business hours (Saturday-Saturday, 8 a.m. - 4p.m.) to verify the transmission was received. Wanda Carlos APRN, C.N.P., M.S.N. EL INFORMATION CENTER SUPERVISOR documented in this encounter Discharge Instructions Discharge InstructionsHuWanda del rio APRN, C.N.PLisa, M.S.N. - 03/21/2021 2:17 PM CST You were discharged from the [facility] CVD Interventional/Heart Rhythm Service. [...] (usually 3-4 weeks). Pain: You may use [id number] Extra Strength Tylenol (acetaminophen) 500 mg tablets, [...] receipt of this transmission by calling the [facility] at or [phone]. Please contact us if you have any [...] 911 in the event of an emergency. EL INFORMATION CENTER SUPERVISOR documented in this encounter Medications at Time of Discharge Medication Sig Dispensed Refills Start Date End Date losartan (COZAAR) 100 Take 1 tablet (100 mg 90 tablet 3 01/2021 mg tablet total) by mouth daily. multivitamin tablet Take 1 tablet by 0 mouth daily. Diabetic Complete Multivitamin spironolactone Take 1 tablet (25 mg 30 tablet 11 02/23/2021 (ALDACTONE) 25 mg total) by mouth tablet daily. acetaminophen (TYLENOL) TAKE 2 TABLETS BY 100 [...] diagnostic USE DIRECTED TWO 100 each 1 08/0 08/2020 strips TIMES A DAY blood-glucose meter Test as directed for [address] [facility] [place]. blood-glucose meter Test as directed for 1 each 0 08/10/ 2021 miscIndications: diabetes control. Diabetes Mellitus Type 2 Hyperglycemia (HCC) furosemide (LASIX) 20 Take 1 tablet (20 mg 0 02/27 mg tablet total) by mouth daily as needed (take a dose, if there is more than 3 pounds weight gain). metFORMIN XR Take 4 tablets (2,000 360 tablet 3 03/21/2021 (GLUCOPHAGE-XR) 500 mg mg total) by mouth 24 hr daily with breakfast. tabletIndications: Hold metformin for 2 Diabetes Mellitus Type days. Resume taking 2 Hyperglycemia (HCC) on 03/23/21. metoprolol succinate TAKE 1 TABLET BY 60 tablet 1 1 (TOPROL-XL) 100 mg 24 MOUTH DAILY, DO NOT hr tablet CRUSH OR CHEW Ventolin HFA 90 INHALE 2 PUFFS BY 18 g 4 02/23/2021 mcg/actuation inhaler MOUTH EVERY FOUR HOURS NEEDED FOR WHEEZING OR SHORTNESS OF BREATH clopidogreL (PLAVIX) 75 TAKE 1 TABLET BY 51 tablet 0 202012/05/2021 mg tablet MOUTH DAILY flash glucose scanning 1 kit daily. 1 each 0 03/13/2021 03/13/2022 reader (FreeStyle Jose 2 [place]) miscIndications: Diabetes Mellitus Type 2 Hyperglycemia (HCC) [...] Admitting/Central Scheduling 04/09/2022 Appointment Pulmonary Medicine Mario iPtt M.D. [address] [place] [address] 05/23/2022 Office Visit Cardiovascular Disease Osman Wesley M.D. [address] [place] [address] documented as of this encounter Procedures Procedure Name Priority Date/Time Associated Diagnosis Comme nts DX CHEST AP OR PA RAD - Routine 03/21/2021 2:00 Result s for AND LATERAL 2 VIEWS (most inpatients PM TRAVEL INFORMATION CENTER SUPERVISOR this procedure and all are in the outpatients) results section. GLUCOSE POCT, B Routine 03/21/2021 1:10 Results f or PM TRAVEL INFORMATION CENTER SUPERVISOR this procedure are in the results section. ECG Routine 03/21/2021 Results for 12:33 PM TRAVEL INFORMATION CENTER SUPERVISOR this procedure are in the results section. ADULT OXYGEN Routine 03/21/2021 THERAPY 12:21 PM TRAVEL INFORMATION CENTER SUPERVISOR CAR CARDIAC DEVICE Routine 03/21/2021 Results f or INTERROGATION 12:19 PM TRAVEL INFORMATION CENTER SUPERVISOR this procedure are in the results section. GLUCOSE POCT, B Routine 03/21/2021 Results for 12:19 PM TRAVEL INFORMATION CENTER SUPERVISOR this procedure are in the results section. HEART RHYTHM Routine 03/21/2021 Cardiomyopathy Results for PROCEDURE 12:06 PM TRAVEL INFORMATION CENTER SUPERVISOR Ischemic this procedure are in the results section. HEART RHYTHM Routine 03/21/2021 Cardiomyopathy Results for PROCEDURE 12:06 PM TRAVEL INFORMATION CENTER SUPERVISOR Ischemic this procedure are in the results section. GLUCOSE POCT, B Routine 03/21/2021 9:19 Results f or AM TRAVEL INFORMATION CENTER SUPERVISOR this procedure are in the results section. documented in this encounter Results DX Chest AP or PA and Lateral 2 Views (03/21/2021 2:00 PM TRAVEL INFORMATION CENTER SUPERVISOR) Anatomical Region Laterality Modality Chest, Thoracic RST LOS, Thoracic ARZ LOS, Thoracic N/A Digital Radiography FLA LOS Specimen (Source) Anatomical Collection Method Collection Time Re ceived Time Location / / Volume Laterality 03/21/2021 2:01 PM TRAVEL INFORMATION CENTER SUPERVISOR Impressions 03/21/2021 2:08 PM TRAVEL INFORMATION CENTER SUPERVISOR Comparison with radiograph dated 02/23/2021. Interval placement of left subclavian approach single lead ICD with tip projecting over the right ventricle. No pneumothorax. Decrease in size of the small left pleural effusion. Aortic calcifications. Narrative 03/21/2021 2:08 PM TRAVEL INFORMATION CENTER SUPERVISOR EXAM: ??DX CHEST AP OR PA AND [...] PRO CEDURES Glucose, POCT (03/21/2021 1:10 PM TRAVEL INFORMATION CENTER SUPERVISOR) Analysis Performed At Patho logist Time Signature Glucose, POCT, 97 70 - 140 03/21/2021 [facility]CL[facility] B mg/dL 1:14 PM TRAVEL INFORMATION CENTER SUPERVISOR Site Capillary 03/21/2021 PCL[facility] 1:14 PM TRAVEL INFORMATION CENTER SUPERVISOR Specimen Anatomical Collection Method Collection Time Receive d Time (Source) Location / / Volume Laterality Blood 03/21/2021 1:10 PM 1:14 TRAVEL INFORMATION CENTER SUPERVISOR PM TRAVEL INFORMATION CENTER SUPERVISOR Unknown Provider LAB POCT ORDERABLES-MANUAL Performing Organization Address City/State/ZIP Code Phon e Number POC [facility] [address] [place] [address] [place] [address] [place] [facility] [address] [facility] ECG 12 Lead (03/21/2021 12:33 PM TRAVEL INFORMATION CENTER SUPERVISOR) P athologist Signature Ventricular Rate 78 BPM MUSE ECG/Min [place] Interval 178 ms MUSE QRSD Interval 90 ms MUSE QT Interval 414 ms MUSE QTC Interval 471 ms MUSE P [place] 72 degrees MUSE R [place] 74 degrees MUSE T Wave [place] 81 degrees MUSE Specimen Anatomical Collection Method Collection Time Receive d Time (Source) Location / / Volume Laterality 03/21/2021 12:33 03/21/2021 PM TRAVEL INFORMATION CENTER SUPERVISOR 12:45 PM TRAVEL INFORMATION CENTER SUPERVISOR Impressions MUSE - 03/21/2021 12:45 PM TRAVEL INFORMATION CENTER SUPERVISOR Normal sinus rhythm Cannot rule out Anterior infarct Nonspecific T wave abnormality When compared with ECG of 22-NOV-2021 15 :16, No significant change was found [...] DEVICE - NO CHARGE (03/21/2021 12:19 PM TRAVEL INFORMATION CENTER SUPERVISOR) Component Value Ref Test Analysis Performed At [facility] Actus Interactive Software Range Method Time Signature Date Time [id number] [facility] Interrogation LAB SYSTEM Session Implantable Biotronik [facility] Pulse Generator LAB SYSTEM Rn Anesthesiology Implantable [id number] Acticor 7 [facility] Pulse Generator VR-T DX LAB SYSTEM Model Implantable [id number] [facility] Pulse Generator LAB SYSTEM Serial Number Type In Clinic [facility] Interrogation LAB SYSTEM Session Re-programmed Unknown FOUNDATION During Session LAB SYSTEM Clinic Name [facility] LAB SYSTEM [place] Implantable Defibrillator [facility] Pulse Generator LAB SYSTEM Type Implantable [id number] [facility] Pulse Generator LAB SYSTEM Implant Date Implantable Lead Biotronik [facility] Rn Anesthesiology LAB SYSTEM Implantable Lead [id number] Plexa DF-1 FOUND ATION Model S DX 65/15 LAB SYSTEM Implantable Lead [id number] [facility] Serial Number LAB SYSTEM Implantable Lead [id number] [facility] ON Implant Date LAB SYSTEM Implantable [...] Unknown FOUNDATION chambers paced LAB SYSTEM during FIELD OPERATIONS TECHNICIAN pacing. Lead Channel Unknown FOUNDATION Setting Pacing [...] LAB SYSTEM Interval Lead Channel 5.9 mV F[facility]ATION Sensing LAB SYSTEM Intrinsic Amplitude Lead Channel 581 ohm [facility] Impedance Value LAB SYSTEM Lead Channel 18.3 mV FOUNDATION Sensing LAB SYSTEM Intrinsic Amplitude Lead Channel 0.4 V [facility]OUNDATION Pacing Threshold LAB SYSTEM Amplitude Lead Channel 0.4 ms FOUNDATION Pacing Threshold LAB SYSTEM Pulse Width Battery Date [facility] Time of LAB SYSTEM Measurements Battery Status Middle of Service FOUNDAT ION LAB SYSTEM Battery Voltage 3.07 V F[facility]ATION LAB SYSTEM Capacitor Charge FULL_ENERGY FOUNDATION Type LAB SYSTEM Capacitor Charge Reformation [facility] Type LAB SYSTEM Capacitor Charge Shock [facility]ATION Type LAB SYSTEM Therapy 0 [facility]ATION Statistic Recent LAB SYSTEM Shocks Delivered Therapy 0 [facility] Statistic Total LAB SYSTEM Shocks Delivered Therapy 0 [facility] Statistic Total LAB SYSTEM Shocks Aborted Anatomical Region Laterality Modality Other Specimen (Source) Anatomical Collection Method Collection Time Re ceived Time Location / / Volume Laterality 03/21/2021 11:16 AM TRAVEL INFORMATION CENTER SUPERVISOR Narrative 03/27/2021 1:38 PM TRAVEL INFORMATION CENTER SUPERVISOR PURPOSE OF VISIT: ?? Implant of a [...] E (ABNORMAL) Glucose, POCT (03/21/2021 12:19 PM TRAVEL INFORMATION CENTER SUPERVISOR) Analysis Performed At Patho logist Time Signature Glucose, POCT, 64 (L) 70 - 140 03/21/2021 [facility] B mg/dL 12:33 PM TRAVEL INFORMATION CENTER SUPERVISOR Site Capillary 03/21/2021 [facility] 12:33 PM TRAVEL INFORMATION CENTER SUPERVISOR Specimen Anatomical Collection Method Collection Time Receive d Time (Source) Location / / Volume Laterality Blood 03/21/2021 12:19 03/21/2021 PM TRAVEL INFORMATION CENTER SUPERVISOR 12:33 PM TRAVEL INFORMATION CENTER SUPERVISOR Unknown Provider LAB POCT ORDERABLES-MANUAL Performing Organization Address City/State/ZIP Code Phon e Number POC [facility] [address] [place] [address] [facility] [place] [address] [place] [facility] [address] ICD IMPLANT - SINGLE CHAMBER, VENOGRAPHY - SUBCLAVIAN (03/21/2021 12:06 PM TRAVEL INFORMATION CENTER SUPERVISOR) Anatomical Region Laterality Modality X-Ray Angiography Specimen (Source) Anatomical Collection Method Collection Time Re ceived Time Location / / Volume Laterality 03/21/2021 11:16 AM TRAVEL INFORMATION CENTER SUPERVISOR Narrative 03/21/2021 4:26 PM TRAVEL INFORMATION CENTER SUPERVISOR For the complete report, see the Order-L [...] GY PROCS Glucose, POCT (03/21/2021 9:19 AM TRAVEL INFORMATION CENTER SUPERVISOR) Analysis Performed At Patho [facility] Time Signature Glucose, POCT, 96 70 - 140 03/21/2021 PCLX B mg/dL 9:23 AM TRAVEL INFORMATION CENTER SUPERVISOR Site Capillary 03/21/2021 PCL[facility] 9:23 AM TRAVEL INFORMATION CENTER SUPERVISOR Specimen Anatomical Collection Method Collection Time Receive d Time (Source) Location / / Volume Laterality Blood 03/21/2021 9:19 AM 9:23 TRAVEL INFORMATION CENTER SUPERVISOR AM TRAVEL INFORMATION CENTER SUPERVISOR Unknown Provider LAB POCT ORDERABLES-MANUAL Performing Organization Address City/State/ZIP Code Phon e Number POC [facility] [address] [place] [address] PCLX [facility] [place] [address] [place] [facility] [address] documented in this encounter Visit Diagnoses Diagnosis Automatic Implantable Cardiac Defibrilla tor Status Post - Primary Cardiomyopathy Ischemic Diabetes Mellitus Type 2 Hyperglycemia ( HCC) Cardiomyopathy Ischemic Atherosclerotic Heart Disease [place] Cor onary Artery With Other Forms Angina [...] at 1230, For 1 dose, Created by cabinet override acetaminophen tablet 1,000 mg (TYLENOL) Given 03/21/2021 12:50 PM TRAVEL INFORMATION CENTER SUPERVISOR 1,000 mg 1,000 mg, oral, Every 6 hours PRN, mild pain or score 1-3 of 10, Starting on Sat03/21/21 at 1221, PACU & Post-Op fentaNYL (SUBLIMAZE) 50 mcg/mL injection - ADS Override Pull Starting on Sat03/21/21 at 1229, For 1 dose, Created by cabinet override fentaNYL injection 25 mcg (SUBLIMAZE) 25 mcg, intravenous, Every 2 hour PRN, m oderate pain or score 4-6 of 10, Starting on Sat03/21/21 at 1221, PACU & Post-Op, May repeat x1 dosing interval, if patient unable to take oral analgesics or oral analgesics are ineffective fentaNYL injection 25 mcg (SUBLIMAZE) Given 03/21/2021 1:00 PM TRAVEL INFORMATION CENTER SUPERVISOR 25 mcg 25 mcg, intravenous, Every 2 min PRN, moderate pain or score 4-6 of 10, severe pain or score 7-10 of 10, Starting on Sat03/21/21 at 1220, PACU (only), Up to maximum total dose of 200 mcg Given 03/21/2021 12:55 PM TRAVEL INFORMATION CENTER SUPERVISOR 25 mcg Given 03/21/2021 12:43 PM TRAVEL INFORMATION CENTER SUPERVISOR 25 mcg fentaNYL injection 50 mcg (SUBLIMAZE) [...] 5 mg (ROXICODONE) Given 03/21/2021 2:48 PM TRAVEL INFORMATION CENTER SUPERVISOR 5 mg 5 mg, oral, Every 6 [...] Recently Administered Medications Times are shown in TRAVEL INFORMATION CENTER SUPERVISOR. Scheduled Medication Order 03/19/2021 03/20/2021 03/21/2021 ceFAZolin injection 2,000 mg (ANCEF) (COMPLETED) 1110 (Given - Provider: Tamika Barry, REGULATOR ASSEMBLER, GOODS LAYER, DNAP) 2,000 mg (rounded from 2,120 mg [...] 1250 (Given - Provider: Satinder Cary R.N., [facility]) 1,000 mg, oral, Every 6 hours PRN, [...] 1243 (Given - Provider: Satinder Cary R.N., [facility])1255 (Given - Provider: Satinder Cary R.N., [facility])1300 (Given - Provider: Satinder Cary R.N., [facility]) 25 mcg, intravenous, Every 2 min PRN, [...] minutes. If nausea or vomiting persists ad electromechanical technologist next ordered antiemetic medicat ion (order for [...] 1448 (Given - Provider: Satinder Cary R.N., [facility]) 5 mg, oral, Every 6 hours PRN, [...]
documented in this encounter Care Teams Manager Pipeline Relationship Specialty Start Date End Date Elsewhere, Pcp PCP - General 02/22/21 documented as of this encounter
--- OUTSIDE RECORDS SUMMARY | 2022-04-02 19:38 | XMS_ITS | Encounter Summary ---
:1965 Author Organization [facility] Address [address] [place] [address] Care Team Providers Name Role Phone Elsewhere, Pcp Primary Care Provider Unavailable Reason for Visit Reason Comments Medical Information Encounter Details Date Type Department Care Team Description 03/04/2021 Nurse Triage [facility] Phuong Ng, [facility] and RKristin, [facility] [phone] [facility] [phone] Social History Tobacco Use Types Packs/Day Years [...] experiencing symptoms from this as well. This [facility]ha under[facility] could be transferred to nuclear control room operator regional climate change analyst to review symptoms. documented in this encounter Plan of Treatment Upcoming Encounters Date Type Specialty Care Team Description 04/06/2022 Clinical Communication Admitting/Central Scheduling 04/09/2022 Appointment Pulmonary Medicine Mario Pitt M.D. [address] [place] [address] 05/23/2022 Office Visit Cardiovascular Disease Osman Wesley M.D. [address] [place] [address] documented as of this encounter Visit Diagnoses Not on filedocumented in this encounter Care Teams Coating Machine Operator Relationship Specialty Start Date End Date Elsewhere, Pcp PCP - General 02/22/21 documented as of this encounter
--- OUTSIDE RECORDS SUMMARY | 2022-04-02 19:38 | XMS_ITS | Encounter Summary ---
:1965 Author Organization [facility] Address [address] [place] [address] Care Team Providers Name Role Phone Elsewhere, Pcp Primary Care Provider Unavailable Reason for Visit Reason Comments Pre-scheduling Questionnaire Encounter Details Date Type Department Care Team Description 02/27/2021 Clinical Department of Prescheduling, Pre-scheduli ng Communication Orthopedic Surgery Provider Question marycarmen in [place], [place] [address] [place] [address] Social History Tobacco Use Types Packs/Day Years [...] More than 4 times per year 02/09/2021 zoroastrianism services? Do you belong to any clubs [...] Appointment Pulmonary Medicine Mario Pitt M.D. [address] [place] [address] 05/23/2022 Office Visit Cardiovascular Disease Osman Wesley M.D. [address] [place] [address] documented as of this encounter Visit Diagnoses Not on filedocumented in this encounter Care Teams Shoe Stock Associate Relationship Specialty Start Date End Date Elsewhere, Pcp PCP - General 02/22/21 documented as of this encounter
--- OUTSIDE RECORDS SUMMARY | 2022-04-02 19:38 | XMS_ITS | Encounter Summary ---
:1965 Author Organization [facility] Address [address] [place] [address] Care Team Providers Name Role Phone Elsewhere, Pcp Primary Care Provider Unavailable Encounter Details Date Type Department Care Team Description 03/21/2021 Anesthesia Event Division of Cardiovascular Bren Persaud i, APRN, JUANIS [address] [place] [address] Diseases in [place], [facility], Tamika Bright APRN, CRNA, DNA [address] [place] [address] [place] [address] [place] [address] Anesthesia Record Procedure Summary Procedure Name [...] h andoff to the receiving staff during [facility] we 1. Identified the patient 2. Ident [...] or relatives? How often do you attend sikhism or More than 4 times per year 02/09/2021 caodaism services? Do you belong to any clubs or Yes 02/09/2021 organizations such as sikhism groups, unions, fraternal or athletic groups, or [...] Procedure Summary Date: 03/21/21 Room / Location: [facility] [id number] / [facility] Anesthesia Start: 1051 Anesthesia Stop: 121 Procedures: [...] Post Op nausea/vomiting: none Hydration status: euvolemic GER SUSTAINABILITY Anesthesia Preprocedure Evaluation - Tamika Barry APRN, CRNA, DNA - 03/21/2021 11:20 AM CST Preprocedure Anesthesia & H&P Assessment Procedure Summary Anesthesia Start Date/Time: 03/21/21 1051 Procedures: ICD IMPLANT - SINGLE CHAMBER (Left ) Venography - Subclavian (N/A ) Diagnosis: Cardiomyopathy Ischemic [I25.5] Pre-op diagnosis: Cardiomyopathy Ischemic [I25.5] Location: [place] [address] / [facility] Surgeons: Ellis Sawyer M.D., M.P.H. Pertinent components of the patient's history including current problem list, medical history, surgical history, family history, social history, medications and allergies were reviewed. Present illnessand pre-op diagnosis were confirmed. The planned surgery / procedure was verified with the patient /legal guardian. The patient's general health condition remains unchanged RELEVANT COMORBID CONDITIONS CV (+) Atherosclerotic Heart Disease [place] Coronary Artery With Other Forms Angina Pectoris (Stable Angina/Angina Of Exertion) ([facility]) (+) Congestive Heart Failure Ejection [...] with patient /legal guardian or through an educational interpreter. Risks/Benefits/Alternatives of Blood transfusion discussed with patient / legal guardian, including an opportunity to ask questions and/or decline some or all transfusion therapies. The patient / legalguardian consented to the use of all blood products, as deemed medically necessary Approval to Proceed: approved for anesthesia GER SUSTAINABILITY documented in this encounter Plan of Treatment Upcoming Encounters Date Type Specialty Care Team Description 04/06/2022 Clinical Communication Admitting/Central Scheduling 04/09/2022 Appointment Pulmonary Medicine Mario Pitt M.D. [address] [place] [phone] 05/23/2022 Office Visit Cardiovascular Disease Osman Wesley M.D. [address] [place] [address] documented as of this encounter Visit Diagnoses Not on filedocumented in this encounter Administered Medications Inactive Administered Medications - up to 3 most recent administrations Medication Order MAR Action Action Date Dose Rate Site acetaminophen injection Given 03/21/2021 11:15 AM MANAGER SUSTAINABILITY 1,000 mg intravenous, Administer over 15 Minutes, As needed, Starting on Sat03/21/21 at 1115, Anesthesia Intra-op ceFAZolin injection 2,000 mg (ANCEF) Given 03/21/2021 11:10 AM MANAGER SUSTAINABILITY 2 g 2,000 mg (rounded from 2,120 [...] fentaNYL injection (SUBLIMAZE) Given 03/21/2021 11:29 AM MANAGER SUSTAINABILITY 25 mcg intravenous, As needed, Starting on Sat03/21/21 at 1105, Anesthesia Intra-op Given 03/21/2021 11:19 AM MANAGER SUSTAINABILITY 25 mcg Given 03/21/2021 11:05 AM MANAGER SUSTAINABILITY 50 mcg iohexoL 300 mg iodine/mL solution (OMNIP AQUE) Given 03/21/2021 11:31 AM MANAGER SUSTAINABILITY 10 mL intravenous, As needed, Starting on Sat03/21/21 at 1131, Anesthesia Intra-op lactated ringers New Bag 03/21/2021 10:57 AM MANAGER SUSTAINABILITY intravenous, Continuous Infusion: Per Instructions PRN, Starting on Sat03/21/21 at 1057, Anesthesia Intra-op lidocaine (PF) (cardiac) injection Given 03/21/2021 10:55 AM MANAGER SUSTAINABILITY 60 mg intravenous, As needed, Starting on Sat03/21/21 at 1055, Anesthesia Intra-op midazolam (PF) injection (VERSED) Given 03/21/2021 10:57 AM MANAGER SUSTAINABILITY 2 mg intravenous, As needed, Starting on Sat03/21/21 at 1057, Anesthesia Intra-op propofol 10 mg/mL infusion Rate/Dose 03/21/2021 45 mcg/kg/min 23.274 (DIPRIVAN) Change 11:34 AM MANAGER SUSTAINABILITY mL/hr intravenous, Continuous Infusion: Per Instructions PRN, Starting on Sat03/21/21 at 1057, Anesthesia Intra-op Rate/Dose Change 03/21/2021 11:19 AM MANAGER SUSTAINABILITY 35 mcg/kg/min 18.102 mL/hr Rate/Dose Change 03/21/2021 11:10 AM MANAGER SUSTAINABILITY 25 mcg/kg/min 12.93 mL/hr propofol bolus from bag (DIPRIVAN) Given 03/21/2021 11:18 AM MANAGER SUSTAINABILITY 10 mg intravenous, As needed, Starting on Sat03/21/21 at 1118, Anesthesia Intra-op documented in this encounter Care Teams Call Person Relationship Specialty Start Date End Date Elsewhere, Pcp PCP - General 02/22/21 documented as of this encounter
--- OUTSIDE RECORDS SUMMARY | 2022-04-02 19:38 | XMS_ITS | Encounter Summary ---
:1965 Author Organization [facility] Address [address] [place] [address] Care Team Providers Name Role Phone Elsewhere, Pcp Primary Care Provider Unavailable Encounter Details Date Type Department Care Team Description 03/06/2021 Clinical Communication Department of Trista Godfrey, Cardiovascular Medicine Anita in [facility] [address] [facility] [address] [place] [phone] [phone] Social History Tobacco Use Types Packs/Day Years [...] Appointment Pulmonary Medicine Mario Pitt M.D. [address] [place] [phone] 05/23/2022 Office Visit Cardiovascular Disease Osman Wesley M.D. [address] [place] [phone] documented as of this encounter Visit Diagnoses Not on filedocumented in this encounter Care Teams Sap Business Objects Consultant Relationship Specialty Start Date End Date Elsewhere, Pcp PCP - General 02/22/21 documented as of this encounter
--- OUTSIDE RECORDS SUMMARY | 2022-04-02 19:38 | XMS_ITS | Encounter Summary ---
:1965 Author Organization [facility] Address [address] [place] [address] Care Team Providers Name Role Phone Elsewhere, Pcp Primary Care Provider Unavailable Encounter Details Date Type Department Care Team Description 03/08/2021 Hospital Encounter Department of Osman Wesley Cardi omyopathy Ischemic; Laboratory Medicine MLisaDLisa Congestive Heart Failure Ejection Fracti on Less Than 40 Percent (HCC); and Pathology, [address] [place] [address] Failure Heart (HCC) [place] [phone] [place] [phone] [address] [facility] (Work) [place], [place] [phone] (Fax) [phone] Social History Tobacco Use Types Packs/Day Years [...] or relatives? How often do you attend hoahaoism or More than 4 times per year 02/09/2021 mormon services? Do you belong to any clubs or Yes 02/09/2021 organizations such as hoahaoism groups, unions, fraternal or athletic groups, or [...] directed for 1 each 0 2020 [facility] diabetes control. blood-glucose [...] Pulmonary Medicine Mario Pitt M.D. [address] [place] [address] 05/23/2022 Office Visit Cardiovascular Disease Osman Wesley M.D. [address] [place] [address] documented as of this encounter Procedures Procedure Name Priority Date/Time Associated Diagnosis Comme nts NT-PRO B-TYPE Routine 03/08/2021 6:49 Failure Heart (HCC) Resu lts for this NATRIURETIC PEPTIDE AM ADOLESCENT PSYCHIATRIST procedur e are in (BNP), S the results section. PROTHROMBIN TIME Routine 03/08/2021 6:49 Cardiomyopathy Result s for this (PT), P AM ADOLESCENT PSYCHIATRIST Ischemic procedure are in Congestive Heart the results Failure Ejection section. Fraction Less Than 40 Percent (HCC) Failure Heart (HCC) TYPE AND SCREEN Routine 03/08/2021 6:49 Cardiomyopathy Results for this AM ADOLESCENT PSYCHIATRIST Ischemic procedure are in Congestive Heart the results Failure Ejection section. Fraction Less Than 40 Percent (HCC) Failure Heart (HCC) URIC ACID, S/P Routine 03/08/2021 6:49 Failure Heart (HCC) Res ults for this AM ADOLESCENT PSYCHIATRIST procedure are i n the results section. BUN (BLOOD UREA Routine 03/08/2021 6:49 Failure Heart (HCC) Re sults for this NITROGEN), S/P AM ADOLESCENT PSYCHIATRIST procedure are in the results section. SODIUM, S/P Routine 03/08/2021 6:49 Failure Heart (HCC) Resul ts for this AM ADOLESCENT PSYCHIATRIST procedure are i n the results section. POTASSIUM, S/P Routine 03/08/2021 6:49 Failure Heart (HCC) Res ults for this AM ADOLESCENT PSYCHIATRIST procedure are i n the results section. CREATININE WITH Routine 03/08/2021 6:49 Failure Heart (HCC) Re sults for this EGFR, S/P AM ADOLESCENT PSYCHIATRIST procedure are i n the results section. documented in this encounter Results Uric Acid (03/08/2021 6:49 AM ADOLESCENT PSYCHIATRIST) athologist Signature Uric Acid, S 7.0 3.7 - 8.0 03/08/2021 DTL mg/dL 8:05 AM ADOLESCENT PSYCHIATRIST Specimen Anatomical Collection Method Collection Time Receive d Time (Source) Location / / Volume Laterality Blood (Blood, 03/08/2021 6:49 AM 03/08/20 7:37 Venous) ADOLESCENT PSYCHIATRIST AM ADOLESCENT PSYCHIATRIST Osman Wesley M.D. LAB BLOOD ADD-ON Performing Organization Address City/State/[facility] Phon e Number [facility] - [address] Sodium (03/08/2021 6:49 AM ADOLESCENT PSYCHIATRIST) athologist Signature Sodium, S 140 135 - 145 03/08/2021 8:05 DTL mmol/L AM ADOLESCENT PSYCHIATRIST Specimen Anatomical Collection Method Collection Time Receive d Time (Source) Location / / Volume Laterality Blood (Blood, 03/08/2021 6:49 AM 03/08/20 7:37 Venous) ADOLESCENT PSYCHIATRIST AM ADOLESCENT PSYCHIATRIST Osman Wesley M.D. LAB BLOOD ADD-ON Performing Organization Address City/[facility] Phon e Number [facility] - [address] (ABNORMAL) NT-Pro B-Type Natriuretic Peptide (BNP) (03/08/2021 6:49 AM ADOLESCENT PSYCHIATRIST) athologist [facility] NT-Pro BNP 608 (H) <=67 pg/mL 03/08/2021 DTL 8:05 AM ADOLESCENT PSYCHIATRIST Comment: NT-proBNP values less than 300 pg/mL [...] (Blood, 03/08/2021 6:49 AM 03/08/20 7:37 Venous) ADOLESCENT PSYCHIATRIST AM ADOLESCENT PSYCHIATRIST Osman Wesley M.D. LAB BLOOD ADD-ON Performing Organization Address City/State/[facility] Phon e Number [facility] - [address] [place] [address] Potassium (03/08/2021 6:49 AM ADOLESCENT PSYCHIATRIST) [facility] Potassium, S 4.8 3.6 - 5.2 03/08/2021 DTL mmol/L 8:05 AM ADOLESCENT PSYCHIATRIST Specimen Anatomical Collection Method Collection Time Receive d Time (Source) Location / / Volume Laterality Blood (Blood, 03/08/2021 6:49 AM 03/08/20 7:37 Venous) ADOLESCENT PSYCHIATRIST AM ADOLESCENT PSYCHIATRIST Osman Wesley M.D. LAB BLOOD ADD-ON Performing Organization Address City/State/[facility] Phon e Number [facility] - [address] [place] [address] [address] [facility] Creatinine with Estimated GFR (03/08/2021 6:49 AM ADOLESCENT PSYCHIATRIST) athologist [facility] Creatinine 0.99 0.74 - 03/08/2021 DTL 1.35 mg/dL 8:05 AM ADOLESCENT PSYCHIATRIST eGFR-Non 86 >=60 03/08/2021 DTL Black/ mL/min/BSA 8:05 AM ADOLESCENT PSYCHIATRIST Malaysian Comment: ----ADDITIONAL INFORMATION---- Estimated GFR calculated using the 2009 CKD_EPI creatinine equation. eGFR-Black/ >90 >=60 mL/min/BSA 2020 8:05 AM ADOLESCENT PSYCHIATRIST DTL Comment: ----ADDITIONAL INFORMATION---- Estimated GFR calculated using the 2009 CKD_EPI creatinine equation. Specimen Anatomical Collection Method Collection Time Receive d Time (Source) Location / / Volume Laterality Blood (Blood, 03/08/2021 6:49 AM 03/08/20 7:37 Venous) ADOLESCENT PSYCHIATRIST AM ADOLESCENT PSYCHIATRIST Osman Wesley M.D. LAB BLOOD ADD-ON Performing Organization Address City/[facility] Phon e Number [facility] [address] BUN (Blood Urea Nitrogen) (03/08/2021 6:49 AM ADOLESCENT PSYCHIATRIST) P athologist Signature BUN (Blood Urea 17 8 - 24 03/08/2021 DTL Nitrogen), S mg/dL 8:05 AM ADOLESCENT PSYCHIATRIST Specimen Anatomical Collection Method Collection Time Receive d Time (Source) Location / / Volume Laterality Blood (Blood, 03/08/2021 6:49 AM 03/08/20 7:37 Venous) ADOLESCENT PSYCHIATRIST AM ADOLESCENT PSYCHIATRIST Osman Wesley M.D. LAB BLOOD ADD-ON Performing Organization Address City/State/ZIP Code Phon e Number [facility] - [address] Type and Screen (with reflex Antibody ID) (03/08/2021 6:49 AM ADOLESCENT PSYCHIATRIST) Patholo gist Method Time Signature ABORh A Pos Not 03/08/2021 ETRM applicable 3:22 PM ADOLESCENT PSYCHIATRIST Antibody Negative Negative 03/08/2021 ETRM Screen 3:38 PM ADOLESCENT PSYCHIATRIST Type & Screen 05/06/2021 03/08/2021 ETRM Expiration 23:59 3:22 PM ADOLESCENT PSYCHIATRIST Testing Renuka DEFAULT 03/08/2021 ETRM Location 7:31 AM ADOLESCENT PSYCHIATRIST Specimen Anatomical Collection Method Collection Time Receive d Time (Source) Location / / Volume Laterality Blood (Blood, 03/08/2021 6:49 AM 03/08/20 7:31 Venous) ADOLESCENT PSYCHIATRIST AM ADOLESCENT PSYCHIATRIST Osman Wesley M.D. LAB BLOOD BANK TEST ORDERABL ES Performing Organization Address [facility] Phon e Number [facility] - [address] [place], [place] [address] [facility] [place] [address] [facility] [address] [facility] Prothrombin Time (PT) (03/08/2021 6:49 AM ADOLESCENT PSYCHIATRIST) P athologist Signature Prothrombin 11.4 9.4 - 12.5 03/08/2021 DTL Time, P sec 7:47 AM ADOLESCENT PSYCHIATRIST INR 1.0 0.9 - 1.1 03/08/2021 DTL 7:47 AM ADOLESCENT PSYCHIATRIST Comment: ----ADDITIONAL INFORMATION---- Standard intensity warfarin therapeutic range: 2.0 to 3.0 ?? High intensity warfarin therapeutic rang e: 2.5 to 3.5 Specimen Anatomical Collection Method Collection Time Receive d Time (Source) Location / / Volume Laterality Blood (Blood, 03/08/2021 6:49 AM 03/08/20 21 7:26 Venous) ADOLESCENT PSYCHIATRIST AM ADOLESCENT PSYCHIATRIST Osman Wesley M.D. LAB BLOOD ADD-ON Performing Organization Address City/[facility] Phon e Number [facility] - [address] [place], [place] [address] [facility] [place] [place] [address] [facility] 200 [facility] documented in this encounter Visit Diagnoses Diagnosis Cardiomyopathy Ischemic Congestive Heart Failure Ejection Fracti on Less Than 40 Percent (HCC) Failure Heart (HCC) documented in this encounter Care Teams Ton Cylinder Inspector Relationship Specialty Start Date End Date Elsewhere, Pcp PCP - General 02/22/21 documented as of this encounter
--- OUTSIDE RECORDS SUMMARY | 2022-04-02 19:38 | XMS_ITS | Encounter Summary ---
:1965 Author Organization [facility] Address [address] [place] [address] Care Team Providers Name Role Phone Elsewhere, Pcp Primary Care Provider Unavailable Reason for Visit Outpatient (Routine) - Closed Specialty Diagnoses / Procedures Referred By Contact Refer red To Contact Endocrinology Diagnoses Diabetes Mellitus Type 2 Hyperglycemia (HCC) Ervin Jaffe M.D. [place] [address] [place] [address] Referral ID Status Reason Start Date Expiration Date Visits Requ ested Visits Authorized [id number] Closed 03/08/2021 03/08/2022 1 1 Encounter Details Date Type Department Care Team Description 03/13/2021 Comprehensive Visit Division of Bertin, Diabetes Mellitus Type 2 Hyperglycemia (HCC) (Primary Dx); Endocrinology in [place] Duran, Cardiomyopa thy Ischemic; [place], [place] Anita Congestive Heart Failure Ejection Fracti on Less Than 40 Percent (HCC); [address] [place] [address] 200 [facility] Hyperlipidemia On Treatment [facility] [address] [facility] [phone] [place] [phone] Social History Tobacco Use Types Packs/Day Years [...] or relatives? How often do you attend taoism or More than 4 times per year 02/09/2021 latter-day services? Do you belong to any clubs or Yes 02/09/2021 organizations such as taoism groups, unions, fraternal or athletic groups, or [...] direct patient counseling or coordination of care. R PLUMBER documented in this encounter Plan of Treatment Upcoming Encounters Date Type Specialty Care Team Description 04/06/2022 Clinical Communication Admitting/Central Scheduling 04/09/2022 Appointment Pulmonary Medicine Mario Pitt M.D. [address] [place] [address] 05/23/2022 Office Visit Cardiovascular Disease Osman Wesley M.D. [address] [place] [address] documented as of this encounter Visit Diagnoses Diagnosis Diabetes Mellitus Type 2 Hyperglycemia ( HCC) - Primary Cardiomyopathy Ischemic Congestive Heart Failure Ejection Fracti on Less Than 40 Percent (HCC) Hyperlipidemia On Treatment documented in this encounter Care Teams Mobile Heavy Equipment Mechanic Relationship Specialty Start Date End Date Elsewhere, Pcp PCP - General 02/22/21 documented as of this encounter
--- OUTSIDE RECORDS SUMMARY | 2022-04-02 19:38 | XMS_ITS | Encounter Summary ---
:1965 Author Organization [facility] Address [address] [place] [address] Care Team Providers Name Role Phone Elsewhere, Pcp Primary Care Provider Unavailable Reason for Referral Behavioral Health (Routine) - Closed Specialty Diagnoses / Procedures Referred By Contact Refer red To Contact Psychiatry / Psychiatry Diagnoses Congestive Heart Failure Ejection Fraction Less Than 40 Percent (HCC) Osman Wesley M.D. [facility] [address] [place] [phone] Referral ID Status Reason Start Date Expiration Date Visits V isits Requested Authorized [id number] Closed Specialty 02/28/2021 02/28/2022 1 1 Services Required Reason for Visit Outpatient (Routine) - Closed Specialty Diagnoses / Procedures Referred By Contact Refer red To Contact Cardiovascular Disease Osman Wesley M .D. [facility] [address] [place] [phone] Referral ID Status Reason Start Date Expiration Date Visits Requ ested Visits Authorized [id number] Closed 02/14/2021 02/14/2022 1 1 Encounter Details Date Type Department Care Team Description 02/27/2021 Office Visit Department of Osman Wesley M.D. [address] [place] [phone] Congestive Heart Cardiovascular Medicine Mo Fofana M.D. 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 How often do you attend evangelical or More than 4 times per year 02/09/2021 advent services? Do you belong to any clubs or Yes 02/09/2021 organizations such as evangelical groups, unions, fraternal or athletic groups, or [...] medication. Given that he has been in [place] for quite some time now, we will [...] Pulmonary Medicine Mario Pitt M.D. [address] [place] [address] 05/23/2022 Office Visit Cardiovascular Disease Osman Wesley M.D. [address] [place] [address] Scheduled Referrals Name Type Priority Associated Order Schedule Diagnoses Psychiatry and Outpatient Referral Routine Congestive Heart Ex pected: Psychology - General Failure Ejection 05/2020 consult (clinic) Fraction Less Than (Appr oximate), 40 Percent (HCC) Expires: 02/29/2024 documented as of this encounter Visit Diagnoses Diagnosis Congestive Heart Failure Ejection Fracti on Less Than 40 Percent (HCC) - Primary documented in this encounter Care Teams Field Advisor Relationship Specialty Start Date End Date Elsewhere, Pcp PCP - General 02/22/21 documented as of this encounter
--- OUTSIDE RECORDS SUMMARY | 2022-04-02 19:38 | XMS_ITS | Encounter Summary ---
:1965 Author Organization [facility] Address [address] [place] [address] Care Team Providers Name Role Phone Elsewhere, Pcp Primary Care Provider Unavailable Encounter Details Date Type Department Care Team Description 03/21/2021 Surgery Division of Cardiovascular Ellis Sawyer, ICD IMPLANT - SINGLE Diseases in [place], M.P .[facility] [address] [facility] [address] [place] [phone] [phone] Social History Tobacco Use Types Packs/Day Years [...] or relatives? How often do you attend baptism or More than 4 times per year 02/09/2021 yazidi services? Do you belong to any clubs or Yes 02/09/2021 organizations such as baptism groups, unions, fraternal or athletic groups, or [...] Comments Blood Pressure 137/103 03/21/2021 12:12 PM ASSOCIATE DIRECTOR FINANCE Pulse 83 03/21/2021 12:20 PM ASSOCIATE DIRECTOR FINANCE Temperature 36.7 ??C (98.1 ??F) 03/21/2021 9:22 AM ASSOCIATE DIRECTOR FINANCE Respiratory Rate - - Oxygen Saturation 97% 03/21/2021 12:20 PM ASSOCIATE DIRECTOR FINANCE Inhaled Oxygen Concentration - - Weight - [...] Hypertension Essential Primary 4. Atherosclerotic Heart Disease [place] Coronary Artery With Other Forms Angina Pectoris [...] directed for diabetes control. FreeStyle Jose 2 Melvin misc 1 kit daily. Generic drug: flash [...] The first appointment will be at the [facility]. The patient will be contacted by [facility] to set up this appointment. After this appointment, routine follow-up will continue with remote home monitoring. A remote home monitor has been given to the patient. They were instructed to verify communication between the monitor and the device, and instructed to send a transmission within the first week after returning home. Then call the [facility] at ([phone]) during regular business hours (Saturday-Saturday, 8 a.m. - 4p.m.) to verify the transmission was received. Wanda Carlos APRN, Colt.NJak, M.S.N. CIATE DIRECTOR FINANCE documented in this encounter Discharge Instructions Discharge InstructionsHuWanda del rio APRN, C.N.P., M.S.N. - 03/21/2021 2:17 PM CST You were discharged from the [facility] CVD Interventional/Heart Rhythm Service. Please identify this [...] (usually 3-4 weeks). Pain: You may use oayn-niq-bqytznn Extra Strength Tylenol (acetaminophen) 500 mg tablets, [...] receipt of this transmission by calling the [facility] at or [phone]. Please contact us if you have any [...] 911 in the event of an emergency. CIATE DIRECTOR FINANCE documented in this encounter Medications at Time [...] as directed for 1 each 0 2020 [facility] diabetes control. blood-glucose meter Test as directed [...] 0 03/13/2021 03/13/2022 reader (FreeStyle Jose 2 Melvin) miscIndications: Diabetes Mellitus Type 2 Hyperglycemia (HCC) [...] Pulmonary Medicine Mario Pitt M.D. [address] [place] [address] 05/23/2022 Office Visit Cardiovascular Disease Osman Wesley M.D. [address] [place] [address] documented as of this encounter Procedures Procedure Name Priority Date/Time Associated Diagnosis Comme nts DX CHEST AP OR PA RAD - Routine 03/21/2021 2:00 Result s for AND LATERAL 2 VIEWS (most inpatients PM ASSOCIATE DIRECTOR FINANCE this procedure and all are in the outpatients) results section. GLUCOSE POCT, B Routine 03/21/2021 1:10 Results f or PM ASSOCIATE DIRECTOR FINANCE this procedure are in the results section. ECG Routine 03/21/2021 Results for 12:33 PM ASSOCIATE DIRECTOR FINANCE this procedure are in the results section. ADULT OXYGEN Routine 03/21/2021 THERAPY 12:21 PM ASSOCIATE DIRECTOR FINANCE CAR CARDIAC DEVICE Routine 03/21/2021 Results f or INTERROGATION 12:19 PM ASSOCIATE DIRECTOR FINANCE this procedure are in the results section. GLUCOSE POCT, B Routine 03/21/2021 Results for 12:19 PM ASSOCIATE DIRECTOR FINANCE this procedure are in the results section. HEART RHYTHM Routine 03/21/2021 Cardiomyopathy Results for PROCEDURE 12:06 PM ASSOCIATE DIRECTOR FINANCE Ischemic this procedure are in the results section. HEART RHYTHM Routine 03/21/2021 Cardiomyopathy Results for PROCEDURE 12:06 PM ASSOCIATE DIRECTOR FINANCE Ischemic this procedure are in the results section. GLUCOSE POCT, B Routine 03/21/2021 9:19 Results f or AM ASSOCIATE DIRECTOR FINANCE this procedure are in the results section. documented in this encounter Results DX Chest AP or PA and Lateral 2 Views (03/21/2021 2:00 PM ASSOCIATE DIRECTOR FINANCE) Anatomical Region Laterality Modality Chest, Thoracic RST LOS, Thoracic ARZ LOS, Thoracic N/A Digital Radiography FLA LOS Specimen (Source) Anatomical Collection Method Collection Time Re ceived Time Location / / Volume Laterality 03/21/2021 2:01 PM ASSOCIATE DIRECTOR FINANCE Impressions 03/21/2021 2:08 PM ASSOCIATE DIRECTOR FINANCE Comparison with radiograph dated 02/23/2021. Interval placement of left subclavian approach single lead ICD with tip projecting over the right ventricle. No pneumothorax. Decrease in size of the small left pleural effusion. Aortic calcifications. Narrative 03/21/2021 2:08 PM ASSOCIATE DIRECTOR FINANCE EXAM: ??DX CHEST AP OR PA AND [...] PRO CEDURES Glucose, POCT (03/21/2021 1:10 PM ASSOCIATE DIRECTOR FINANCE) Analysis Performed At Patho logist Time Signature Glucose, POCT, 97 70 - 140 03/21/2021 [facility] B mg/dL 1:14 PM ASSOCIATE DIRECTOR FINANCE Site Capillary 03/21/2021 [facility] 1:14 PM ASSOCIATE DIRECTOR FINANCE Specimen Anatomical Collection Method Collection Time Receive d Time (Source) Location / / Volume Laterality Blood 03/21/2021 1:10 PM 1:14 ASSOCIATE DIRECTOR FINANCE PM ASSOCIATE DIRECTOR FINANCE Unknown Provider LAB POCT ORDERABLES-MANUAL Performing Organization Address City/State/ZIP Code Phon e Number POC [facility] [address] [place] [address] [place] [address] [place] [facility] [address] ECG 12 Lead (03/21/2021 12:33 PM ASSOCIATE DIRECTOR FINANCE) P athologist Signature Ventricular Rate 78 BPM MUSE ECG/Min [place] Interval 178 ms MUSE QRSD Interval 90 ms MUSE QT Interval 414 ms MUSE QTC Interval 471 ms MUSE P [place] 72 degrees MUSE R [place] 74 degrees MUSE T Wave [place] 81 degrees MUSE Specimen Anatomical Collection Method Collection Time Receive d Time (Source) Location / / Volume Laterality 03/21/2021 12:33 03/21/2021 PM ASSOCIATE DIRECTOR FINANCE 12:45 PM ASSOCIATE DIRECTOR FINANCE Impressions MUSE - 03/21/2021 12:45 PM ASSOCIATE DIRECTOR FINANCE Normal sinus rhythm Cannot rule out Anterior [...] DEVICE - NO CHARGE (03/21/2021 12:19 PM ASSOCIATE DIRECTOR FINANCE) Component Value Ref Test Analysis Performed At [facility] [place] Range Method Time Signature Date Time [id number] [facility] Interrogation LAB SYSTEM Session Implantable Biotronik [facility] Pulse Generator LAB SYSTEM Real Property Evaluator Implantable [id number] Acticor 7 [facility] Pulse Generator VR-T DX LAB SYSTEM Model Implantable [id number] [facility] Pulse Generator LAB SYSTEM Serial Number Type In Clinic [facility] Interrogation LAB SYSTEM Session Re-programmed Unknown FOUNDATION During Session LAB SYSTEM Clinic Name [facility] LAB SYSTEM [place] Implantable Defibrillator [facility] Pulse Generator LAB SYSTEM Type Implantable [id number] [facility] Pulse Generator LAB SYSTEM Implant Date Implantable Lead Biotronik [facility] Real Property Evaluator LAB SYSTEM Implantable Lead [id number] Plexa DF-1 FOUND ATION Model S DX 65/15 LAB SYSTEM Implantable Lead [id number] [facility] Serial Number LAB SYSTEM Implantable Lead [id number] FOUNDATI ON Implant Date LAB SYSTEM Implantable [...] Unknown FOUNDATION chambers paced LAB SYSTEM during WAFER POLISHER pacing. Lead Channel Unknown FOUNDATION Setting Pacing [...] / / Volume Laterality 03/21/2021 11:16 AM ASSOCIATE DIRECTOR FINANCE Narrative 03/27/2021 1:38 PM ASSOCIATE DIRECTOR FINANCE PURPOSE OF VISIT: ?? Implant of a [...] routine de vice interrogations as indicated. Donte J Asirvatham M.D. CV IMPLANTABLE CARDIAC DEVIC E (ABNORMAL) Glucose, POCT (03/21/2021 12:19 PM ASSOCIATE DIRECTOR FINANCE) Analysis Performed At Patho logist Time Signature Glucose, POCT, 64 (L) 70 - 140 03/21/2021 [facility] B mg/dL 12:33 PM ASSOCIATE DIRECTOR FINANCE Site Capillary 03/21/2021 [facility] 12:33 PM ASSOCIATE DIRECTOR FINANCE Specimen Anatomical Collection Method Collection Time Receive d Time (Source) Location / / Volume Laterality Blood 03/21/2021 12:19 03/21/2021 PM ASSOCIATE DIRECTOR FINANCE 12:33 PM ASSOCIATE DIRECTOR FINANCE Unknown Provider LAB POCT ORDERABLES-MANUAL Performing Organization Address City/State/ZIP Code Phon e Number POC [facility] [address] [place] [address] [facility] [place] [address] [place] [facility] [address] ICD IMPLANT - SINGLE CHAMBER, VENOGRAPHY - SUBCLAVIAN (03/21/2021 12:06 PM ASSOCIATE DIRECTOR FINANCE) Anatomical Region Laterality Modality X-Ray Angiography Specimen (Source) Anatomical Collection Method Collection Time Re ceived Time Location / / Volume Laterality 03/21/2021 11:16 AM ASSOCIATE DIRECTOR FINANCE Narrative 03/21/2021 4:26 PM ASSOCIATE DIRECTOR FINANCE For the complete report, see the Order-L [...] GY PROCS Glucose, POCT (03/21/2021 9:19 AM ASSOCIATE DIRECTOR FINANCE) Analysis Performed At Patho logist Time Signature Glucose, POCT, 96 70 - 140 03/21/2021 [facility] B mg/dL 9:23 AM ASSOCIATE DIRECTOR FINANCE Site Capillary 03/21/2021 [facility] 9:23 AM ASSOCIATE DIRECTOR FINANCE Specimen Anatomical Collection Method Collection Time Receive d Time (Source) Location / / Volume Laterality Blood 03/21/2021 9:19 AM 9:23 ASSOCIATE DIRECTOR FINANCE AM ASSOCIATE DIRECTOR FINANCE Unknown Provider LAB POCT ORDERABLES-MANUAL Performing Organization Address City/State/ZIP Code Phon e Number POC [facility] [address] [place] [address] [facility] [place] [address] [place] [facility] [address] documented in this encounter Visit Diagnoses Diagnosis Cardiomyopathy Ischemic Diabetes Mellitus Type 2 Hyperglycemia ( HCC) Cardiomyopathy Ischemic Atherosclerotic Heart Disease [place] Cor onary Artery With Other Forms Angina [...] 1,000 mg (TYLENOL) Given 03/21/2021 12:50 PM ASSOCIATE DIRECTOR FINANCE 1,000 mg 1,000 mg, oral, Every 6 [...] 25 mcg (SUBLIMAZE) Given 03/21/2021 1:00 PM ASSOCIATE DIRECTOR FINANCE 25 mcg 25 mcg, intravenous, Every 2 min PRN, moderate pain or score 4-6 of 10, severe pain or score 7-10 of 10, Starting on Sat03/21/21 at 1220, PACU (only), Up to maximum total dose of 200 mcg Given 03/21/2021 12:55 PM ASSOCIATE DIRECTOR FINANCE 25 mcg Given 03/21/2021 12:43 PM ASSOCIATE DIRECTOR FINANCE 25 mcg fentaNYL injection 50 mcg (SUBLIMAZE) 50 mcg, intravenous, Every 2 hour PRN, s evere pain or score 7-10 of 10, Starting on Sat03/21/21 at 1221, PACU & Post-Op, May repeat x1 do sing interval, if patient unable to take oral analgesics or oral analgesics are ineffective lidocaine 10 mg/mL (1 %) injection Given 03/21/2021 11:20 AM ASSOCIATE DIRECTOR FINANCE 28 mL Left Chest (XYLOCAINE) As needed, Starting on Sat03/21/21 at 1123, Intraprocedure (CV) oxyCODONE (ROXICODONE) 5 mg IR tablet - ADS Override Pull Starting on Sat03/21/21 at 1441, For 1 dose, Created by cabinet override oxyCODONE IR tablet 5 mg (ROXICODONE) Given 03/21/2021 2:48 PM ASSOCIATE DIRECTOR FINANCE 5 mg 5 mg, oral, Every 6 [...] Recently Administered Medications Times are shown in ASSOCIATE DIRECTOR FINANCE. Scheduled Medication Order 03/19/2021 03/20/2021 03/21/2021 ceFAZolin injection 2,000 mg (ANCEF) (COMPLETED) 1110 (Given - Provider: Tamika Barry, DEPUTY HARBORMASTER, BUNG DRIVER, DNAP) 2,000 mg (rounded from 2,120 mg [...] 1250 (Given - Provider: Satinder Cary R.N., [facility]) 1,000 mg, oral, Every 6 hours PRN, [...] 1243 (Given - Provider: Satinder Cary R.N., CFRN)1255 (Given - Provider: Satinder Cary R.N., CFRN)1300 (Given - Provider: Satinder Cary R.N., CFRN) 25 mcg, intravenous, Every 2 min PRN, [...] minutes. If nausea or vomiting persists ad insurance claims adjuster next ordered antiemetic medicat ion (order for [...] 1448 (Given - Provider: Satinder Cary R.N., [facility]) 5 mg, oral, Every 6 hours [...] ineffective
documented in this encounter Care Teams Assembler Ping Pong Table Relationship Specialty Start Date End Date Elsewhere, Pcp PCP - General 02/22/21 documented as of this encounter
--- OUTSIDE RECORDS SUMMARY | 2022-04-02 19:38 | XMS_ITS | Encounter Summary ---
:1965 Author Organization [facility] Address [address] [place] [address] Care Team Providers Name Role Phone Elsewhere, Pcp Primary Care Provider Unavailable Reason for Visit Appointment Request (Routine) - Closed Specialty Diagnoses / Procedures Referred By Contact Refer red To Contact Cardiovascular Disease Referral ID Status Reason Start Date Expiration Date Visits Requ ested Visits Authorized [id number] Closed 03/06/2021 03/06/2022 1 1 Encounter Details Date Type Department Care Team Description 03/20/2021 Comprehensive Visit Department of Monique Olivares Heart Disease [place] Coronary Artery With Other Forms Angina Pectoris (Stable Angina/Angina Of Exertion) (HCC) (Primary Dx); Cardiovascular Triston Bright, Cardiomyopath y Ischemic; Medicine in M.D. Congestive Heart Failure Ejection [place]ract[place] on Less Than 40 Percent (HCC); [place], [place] [address] Diabetes Mellitus Type 2 Hyp erglycemia (HCC); [address] [facility] Hypertension Essential Primary; [place], [place], Hyperlipidemia On Treatment [id number] [place] [phone] Social History Tobacco Use Types Packs/Day Years [...] or relatives? How often do you attend buddhism or More than 4 times per year 02/09/2021 episcopal services? Do you belong to any clubs or Yes 02/09/2021 organizations such as buddhism groups, unions, fraternal or athletic groups, or [...] Comments Blood Pressure 143/86 03/20/2021 4:07 PM PROTOTYPE FABRICATOR Pulse 83 03/20/2021 4:07 PM PROTOTYPE FABRICATOR Temperature - - Respiratory Rate - - Oxygen Saturation - - Inhaled Oxygen Concentration - - Weight 86.2 kg (190 lb 0.6 oz) 03/20/2021 4:07 PM PROTOTYPE FABRICATOR Height 178.1 cm (5' 10.12) 03/20/2021 4:07 PM PROTOTYPE FABRICATOR Body Mass Index 27.18 03/20/2021 4:07 PM PROTOTYPE FABRICATOR documented in this encounter Consult Notes Triston [...] here in November of 2020 in the [facility] by Dr. Rudd for pulmonary edema. He [...] right handed. He had worked for the [employer] locally. Patient Active Problem List Diagnosis ??? Diabetes Mellitus Type 2 Hyperglycemia (HCC) ??? Hypertension Essential Primary ??? Atherosclerotic Heart Disease [place] Coronary Artery With Other Forms Angina Pectoris [...] CARDIAC CATHETERIZATION N/A 02/24/2021 Procedure: Instantaneous Flow [place]; Surgeon: Monico Rizo M.D.; Location: [facility] [...] flash glucose scanning reader (FreeStyle Jose 2 [employer]) misc, 1 kit daily. ??? flash glucose [...] ASSESSMENT / PLAN #1 Atherosclerotic Heart Disease [place] Coronary Artery With Other Forms Angina Pectoris (Stable Angina/Angina Of Exertion) ([facility]) #2 Cardiomyopathy Ischemic #3 Congestive Heart Failure Ejection Fraction Less Than 40 Percent ([facility]) #4 Diabetes Mellitus Type 2 Hyperglycemia ([facility]) #5 Hypertension Essential Primary #6 Hyperlipidemia On Treatment I discussed with him the ramifications of sudden in this setting at 3% per year that is prevented by the ICD (MADIT-2 Data sets). He does not require ELECTRICIAN YARD (QRSD = 90 with normal SC) nor an atrial lead (no AF). Thus a single lead left sided ICD is indicated. I described the risk and goals of the procedure including , stroke, and [place] at 04/999. I also described the following [...] per year. Written informed consent was obtained. [employer] scrubs were given and he will call [facility] for a report time. NPO after [place] was instructed. His is here so SDD is a possibility and this was discussed. Questions answered. Triston Olivares M.D. ?? OTYPE FABRICATOR documented in this encounter Plan of Treatment Upcoming Encounters Date Type Specialty Care Team Description 04/06/2022 Clinical Communication Admitting/Central Scheduling 04/09/2022 Appointment Pulmonary Medicine Mario Pitt M.D. [address] [place] [address] 05/23/2022 Office Visit Cardiovascular Disease Osman Wesley M.D. [address] [place] [address] documented as of this encounter Visit Diagnoses Diagnosis Atherosclerotic Heart Disease [place] Cor onary Artery With Other Forms Angina Pectoris (Stable Angina/Angina Of Exertion) (HCC) - Primary Cardiomyopathy Ischemic Congestive Heart Failure Ejection Fracti on Less Than 40 Percent (HCC) Diabetes Mellitus Type 2 Hyperglycemia ( HCC) Hypertension Essential Primary Hyperlipidemia On Treatment documented in this encounter Care Teams Soil Conservation Technician Relationship Specialty Start Date End Date Elsewhere, Pcp PCP - General 02/22/21 documented as of this encounter
--- OUTSIDE RECORDS SUMMARY | 2022-04-02 19:38 | XMS_ITS | Encounter Summary ---
:1965 Author Organization [facility] Address [address] [place] [address] Care Team Providers Name Role Phone Elsewhere, Pcp Primary Care Provider Unavailable Encounter Details Date Type Department Care Team Description 03/08/2021 Education Department of Osman Wesley M.D. [address] [place] [address] Failure Heart ([facility]) Cardiovascular Medicine in Phuong Nichols RKristin [place], [place] [address] [place] [address] Social History Tobacco Use Types Packs/Day [...] More than 4 times per year 02/09/2021 taoist services? Do you belong to any clubs [...] Evaluation of learning: able to demonstrate teach-back GER DESKTOP documented in this encounter Plan of Treatment Upcoming Encounters Date Type Specialty Care Team Description 04/06/2022 Clinical Communication Admitting/Central Scheduling 04/09/2022 Appointment Pulmonary Medicine Mario Pitt M.D. [address] [place] [address] 05/23/2022 Office Visit Cardiovascular Disease Osman Wesley M.D. [address] [place] [address] documented as of this encounter Visit Diagnoses Diagnosis Failure Heart (HCC) documented in this encounter Care Teams Timber Robber Relationship Specialty Start Date End Date Elsewhere, Pcp PCP - General 02/22/21 documented as of this encounter
--- OUTSIDE RECORDS SUMMARY | 2022-04-02 19:38 | XMS_ITS | Encounter Summary ---
:[address] [facility] Address [address] [place] [address] Care Team Providers Name Role Phone Elsewhere, Pcp Primary Care Provider Unavailable Reason for Referral Outpatient (Routine) - Closed Specialty Diagnoses / Procedures Referred By Contact Refer red To Contact Diagnoses Cardiomyopathy Ischemic Aurelio Osorio V., [facility] Procedures ECG 12 Lead Anita, Ph.D. 200 [place] [address] Referral ID Status Reason Start Date Expiration Date Visits Requ ested Visits Authorized [id number] Closed 03/02/2021 03/02/2022 1 1 Encounter Details Date Type Department Care Team Description 02/27/2021 Clinical Communication Department of Katelynn Henry Cardiovascular Medicine Rubina, Dayna in [facility] [phone] [address] [facility] ([facility]) [place] [phone] Social History Tobacco Use Types Packs/Day Years [...] canceled the NF2F on 03/17. Thanks Cely GER MARKET Telephone Encounter - Cely Torre - 03/03/2021 [...] Appointment: 03/20 Pre-Procedure Testing: CBC, EKG, and BAND BIAS MACHINE OPERATOR preop clinic appointment, if we are not able to get this scheduled you will meet with an MD the day of the procedure to complete consent. Procedure Date: 03/21 Procedure: ICD Mr. Fairbanks was given the following education instructions: Calling In for your Report Time: The night before the procedure, please call the [facility] Service Line ([phone]) or the [facility] Backup Line ([phone]) between 7pm and midnight to find out what time to arrive. This automated phone line will have you type in your [facility] Number [phone] and birthdate 1965 to de termine your arrival time. On the day of your procedure: Check into [facility], [facility] 4th Floor (east elevators) at the [facility] 4D desk. Youdo not need to [...] call our Diabetes Medication Instruction Line at [phone]. Continue taking all other medications as prescribed. On the morning of your procedure, take only your prescription medications and skip any supplements that are not prescribed by a medical provider. Hibiclens: Please, shower the night prior to your procedure and the morning of your procedure with Hibiclens soap. This is available at your local pharmacy [email or web address] for purchase. You may also request packets from the [address] desk while you are here for [...] to either live within 100 miles of [place], [place] or spend the night in [place] postprocedure. If you live within 100 miles and live greater than 30 minutes outside of [place], [place]); it is not required, but highly recommended that you spend the night in [place], [place]. You will have ascheduled device check the next day (please see further instructions below). If you experience any complications or have questions post procedure overnight, please call the [facility] Operatorat: [phone] and ask for [employer] [...] appointment guide and must be completed at [facility] in [place], [place] within designated timeframe. Please, see the [...] free to reach out to us at [phone]. COVID Screening Questions: 1. Do you, anyone [...] postponed or rescheduled to a later date. [facility] Specific Instructions: ?? We encourage you to check [email or web address] for more information as these instructions may change before your procedural date. ?? Must wear a mask at ALL times while on [facility] Zoe (except for when eating or showering). ?? Additionally, the [facility] has mandated that masks be worn inside [...] greater ?? Report any new respiratory symptoms GER MARKET Telephone Encounter - Renee Fong - 03/02/2021 [...] Pulmonary Medicine Mario Pitt M.D. [address] [place] [address] 05/23/2022 Office Visit Cardiovascular Disease Osman Wesley M.D. [address] [place] [address] documented as of this encounter Results ICD SINGLE CHAMBER INTERROGATION WITH PROGRAMMING (03/22/2021 8:19 AM MANAGER MARKET) Component Value Ref Test Analysis Performed At [facility] Range Method Time Signature Date Time [id number] [facility] Interrogation LAB SYSTEM Session Implantable Biotronik [facility] Pulse Generator LAB SYSTEM Bottle Capping Machine Operator Implantable [id number] Acticor 7 [facility] Pulse Generator VR-T DX LAB SYSTEM Model Implantable [id number] [facility] Pulse Generator LAB SYSTEM Serial Number Type In Clinic [facility] Interrogation LAB SYSTEM Session Re-programmed Unknown FOUNDATION During Session LAB SYSTEM Clinic Name [facility] LAB SYSTEM [place] Implantable Defibrillator [facility] Pulse Generator LAB SYSTEM Type Implantable [id number] [facility] Pulse Generator LAB SYSTEM Implant Date Implantable Lead Biotronik [facility] Bottle Capping Machine Operator LAB SYSTEM Implantable Lead [id number] Plexa DF-1 FOUND ATION Model S DX 65/15 LAB SYSTEM Implantable Lead [id number] [facility] Serial Number LAB SYSTEM Implantable Lead [id number] FOUNDATI ON Implant Date LAB SYSTEM Implantable [...] LAB SYSTEM Cathode Location Lead Channel Unknown [facility] Setting Sensing LAB SYSTEM Cathode Terminal Ventricular Unknown FOUNDATION chambers paced LAB SYSTEM during INVENTORY TRANSCRIBER pacing. Lead Channel Unknown FOUNDATION Setting Pacing [...] SYSTEM Intrinsic Amplitude Lead Channel 620 ohm [facility] Impedance Value LAB SYSTEM Lead Channel 22.7 mV [facility] Sensing LAB SYSTEM Intrinsic Amplitude Lead Channel 0.5 V [facility] Pacing Threshold LAB SYSTEM Amplitude Lead Channel 0.4 ms [facility] Pacing Threshold LAB SYSTEM Pulse Width Battery Status Unknown FOUNDATION LAB SYSTEM Battery Voltage 3.07 V FOUNDATION LAB SYSTEM Capacitor Charge FULL_ENERGY FOUNDATION Type LAB SYSTEM Capacitor Charge Reformation [facility] Type LAB SYSTEM Capacitor Charge Shock FOUNDATION Type LAB SYSTEM Luis Miguel Statistic 0 % [facility] RV Percent Paced LAB SYSTEM Atrial Tachy 0 [facility] Statistic Number LAB SYSTEM Of Mode Switches Therapy 0 [facility] Statistic Recent LAB SYSTEM Shocks Delivered Therapy 0 [facility] Statistic Total LAB SYSTEM Shocks Delivered Therapy 0 [facility] Statistic Total LAB SYSTEM Shocks Aborted Episode 0 [facility] Statistic Recent LAB SYSTEM Count Episode Other FOUNDATION Statistic Type LAB SYSTEM Category Anatomical Region Laterality Modality Other Specimen (Source) Anatomical Collection Method Collection Time Re ceived Time Location / / Volume Laterality 03/22/2021 8:08 AM MANAGER MARKET Narrative 03/27/2021 8:53 AM MANAGER MARKET PURPOSE OF VISIT: Routine post-implant device interrogation [...] DEVICE ECG 12 Lead (03/20/2021 3:16 PM MANAGER MARKET) P athologist Signature Ventricular Rate 83 BPM MUSE ECG/Min RI Interval 156 ms MUSE QRSD Interval 92 ms MUSE QT Interval 398 ms MUSE QTC Interval 467 ms MUSE P [place] 33 degrees MUSE R [place] 64 degrees MUSE T Wave [place] 52 degrees MUSE Specimen Anatomical Collection Method Collection Time Receive d Time (Source) Location / / Volume Laterality 03/20/2021 3:16 PM 3:27 MANAGER MARKET PM MANAGER MARKET Impressions MUSE - 03/20/2021 3:27 PM MANAGER MARKET Normal sinus rhythm Cannot rule out Anterolateral [...] CBC with Differential, Blood (03/20/2021 3:00 PM MANAGER MARKET) Patholo gist Method Time Signature Hemoglobin 12.9 (L) 13.2 - 03/20/2021 DTL 16.6 g/dL 3:34 PM MANAGER MARKET Hematocrit 40.1 38.3 - 03/20/2021 DTL 48.6 % 3:34 PM MANAGER MARKET Erythrocytes 4.75 4.35 - 03/20/2021 DTL 5.65 3:34 PM MANAGER MARKET x10(12)/L MCV 84.4 78.2 - 03/20/2021 DTL 97.9 fL 3:34 PM MANAGER MARKET RBC Distrib Width 14.3 11.8 - 03/20/2021 DTL 14.5 % 3:34 PM MANAGER MARKET Platelet Count 343 (H) 135 - 317 03/20/2021 DTL x10(9)/L 3:34 PM MANAGER MARKET Leukocytes 13.5 (H) 3.4 - 9.6 03/20/2021 DTL x10(9)/L 3:34 PM MANAGER MARKET Neutrophils 8.93 (H) 1.56 - 03/20/2021 DTL 6.45 3:34 PM MANAGER MARKET x10(9)/L Lymphocytes 3.12 (H) 0.95 - 03/20/2021 DTL 3.07 3:34 PM MANAGER MARKET x10(9)/L Monocytes 0.84 (H) 0.26 - 03/20/2021 DTL 0.81 3:34 PM MANAGER MARKET x10(9)/L Eosinophils 0.42 0.03 - 03/20/2021 DTL 0.48 3:34 PM MANAGER MARKET x10(9)/L Basophils 0.16 (H) 0.01 - 03/20/2021 DTL 0.08 3:34 PM MANAGER MARKET x10(9)/L Specimen Anatomical Collection Method Collection Time Receive d Time (Source) Location / / Volume Laterality Blood (Blood, 03/20/2021 3:00 PM 03/20/20 3:27 Venous) MANAGER MARKET PM MANAGER MARKET Aurelio Osorio M.D., Ph.D. LAB BLOOD ADD-ON Performing Organization Address City/State/ZIP Code Phon e Number [facility] - [address] [place], [place] [address] [facility] [address] [facility] [address] documented in this encounter Visit Diagnoses Diagnosis Cardiomyopathy Ischemic - Primary Cardiomyopathy Ischemic documented in this encounter Care Teams Dish Cloth Inspector Relationship Specialty Start Date End Date Elsewhere, Pcp PCP - General 02/22/21 documented as of this encounter
--- OUTSIDE RECORDS SUMMARY | 2022-04-02 19:38 | XMS_ITS | Encounter Summary ---
:1965 Author Organization [facility] Address [address] [place] [address] Care Team Providers Name Role Phone Elsewhere, Pcp Primary Care Provider Unavailable Reason for Referral Outpatient (Routine) - Closed Specialty Diagnoses / Procedures Referred By Contact Refer red To Contact Endocrinology Diagnoses Diabetes Mellitus Type 2 Hyperglycemia (HCC) Ervin Jaffe M.D. [facility] [address] [place] [phone] Referral ID Status Reason Start Date Expiration Date Visits Requ ested Visits Authorized [id number] Closed 03/08/2021 03/08/2022 1 1 ECTOR FINAL ASSEMBLY MECHANICAL Reason for Visit Outpatient (Routine) - Closed Specialty Diagnoses / Referred By Contact Referred To Contact Procedures Cardiovascular Diseases / Diagnoses Failure Heart ([facility]) [facility] M.DLisa [address] [place] [phone] Referral ID Status Reason Start Date Expiration Date Visits Requ ested Visits Authorized [id number] Closed 02/27/2021 02/27/2022 1 1 Encounter Details Date Type Department Care Team Description 03/08/2021 Comprehensive Visit Department of Trista Godfrey Ischemic (Primary Dx); Cardiovascular Anita Cason Failure Heart ([facility]); Medicine in [address] [place] [address] Atherosclerotic Heart Disease Of [place] Coronary Artery Without Angina Pectoris; [facility] Diabetes Mellitus Type 2 Hyperglycemia ( HCC); [address] [place] [address], Congestive Heart Failure Eje ction Fraction Less Than 40 Percent ([facility]); [facility] [place] [phone] Social History Tobacco Use Types Packs/Day Years [...] Comments Blood Pressure 119/78 03/08/2021 8:05 AM INSPECTOR FINAL ASSEMBLY MECHANICAL Pulse 73 03/08/2021 8:05 AM INSPECTOR FINAL ASSEMBLY MECHANICAL Temperature - - Respiratory Rate - - Oxygen Saturation - - Inhaled Oxygen Concentration - - Weight 84.8 kg (186 lb 15.2 oz) 03/08/2021 8:05 AM INSPECTOR FINAL ASSEMBLY MECHANICAL Height 179.6 cm (5' 10.71) 03/08/2021 8:05 AM INSPECTOR FINAL ASSEMBLY MECHANICAL Body Mass Index 26.29 03/08/2021 8:05 AM INSPECTOR FINAL ASSEMBLY MECHANICAL documented in this encounter Consult Notes Ervin Jaffe M.D. - 03/08/2021 8:15 AM CST HEART FAILURE CLINIC NOTE REFERRAL Osman Wesley M.D. [address] [place] [phone] REASON FOR VISIT/REFERRAL Ischemic cardiomyopathy HISTORY OF [...] of ischemic cardiomyopathy. He was admitted to [facility] in early November for acute onset pulmonary [...] MRI. He was sent back to the manager labor delivery for repeat coronary angiogram with physiologic testing. Coronary angiogram was notable for bjcj-tq-idjubwgzmodgfxz coronary artery disease. IFR of various coronary [...] setting of STEMI and residual diffuse is gado-am-vcncupkb disease on coronary angiogram on 02/24/2021, ischemic [...] M.D. Cardiovascular Diseases Fellow, PGY 5 Pager: [phone] ECTOR FINAL ASSEMBLY MECHANICAL Trista Godfrey M.D. - 03/08/2021 8:15 AM [...] breath with moderate exertion. Hence patient is [place] Heart [employer] class 2 The following portions [...] than three times a week ??? Attends Sabianism Services: More than 4 times per year [...] ?? 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 Patient develop symptomatic hypotension with Entresto for systolic blood pressures in the 50s. Hence will stop his Entresto for now and restart him on losartan 100 mg a day. I told patient to monitor his blood pressuredaily and when he sees his local anode rebuilder or primary physician he should short and [...] time spent reviewing patient's medical records and etjs-im-tnhd consultation is 40 minutes. Trista Godfrey M.D. 03/08/2021 ECTOR FINAL ASSEMBLY MECHANICAL documented in this encounter Plan of Treatment Upcoming Encounters Date Type Specialty Care Team Description 04/06/2022 Clinical Communication Admitting/Central Scheduling 04/09/2022 Appointment Pulmonary Medicine Mario Pitt M.D. 200 [place] [address] 05/23/2022 Office Visit Cardiovascular Disease Osman Wesley M.D. 200 [place] [address] Scheduled Referrals Name Type Priority Associated Diagnoses Order S leslydubacilio Endocrinology - Outpatient Routine Diabetes Mellitus Expecte d: Diabetes consult Referral Type 2 Hyperglycemia 01/2021 (clinic) ([facility]) (Approximate), Expires: 03/08/2024 documented as of this encounter Visit Diagnoses Diagnosis Cardiomyopathy Ischemic - Primary Failure Heart (HCC) Atherosclerotic Heart Disease Of [place] Coronary Artery Without Angina Pectoris Diabetes Mellitus Type 2 Hyperglycemia ( HCC) Congestive Heart Failure Ejection Fracti on Less Than 40 Percent (HCC) Coronary Stent Status Post documented in this encounter Care Teams Spragger Relationship Specialty Start Date End Date Elsewhere, Pcp PCP - General 02/22/21 documented as of this encounter
--- OUTSIDE RECORDS SUMMARY | 2022-04-02 19:39 | XMS_ITS | Encounter Summary ---
:1965 Author Organization [facility] Address [address] [place] [address] Care Team Providers Name Role Phone Elsewhere, Pcp Primary Care Provider Unavailable Reason for Visit Reason Comments Pleural Effusion Encounter Details Date Type Department Care Team Description 02/23/2021 Documentation Division of Pulmonary Greg Camacho, Pleural Effusion Medicine in [place], Zahraa Nieves M.D. [place] [address] [facility] [address] [place] [phone] Social History Tobacco Use Types Packs/Day Years [...] More than 4 times per year 02/09/2021 confucianism services? Do you belong to any clubs [...] or slept in a fpc (including now)? Education Answer Date Recorded What [...] Pulmonary Medicine Mario Pitt M.D. [address] [place] [address] 05/23/2022 Office Visit Cardiovascular Disease Osman Wesley M.D. [address] [place] [address] documented as of this encounter Visit Diagnoses Not on filedocumented in this encounter Care Teams Cone Classifier Tender Relationship Specialty Start Date End Date Elsewhere, Pcp PCP - General 02/22/21 documented as of this encounter
--- OUTSIDE RECORDS SUMMARY | 2022-04-02 19:39 | XMS_ITS | Encounter Summary ---
:1965 Author Organization [facility] Address [address] [place] [address] Care Team Providers Name Role Phone None Reported, Pcp Primary Care Provider Unavailable Reason for Referral Outpatient (Routine) - Closed Specialty Diagnoses / Procedures Referred By Contact Refer red To Contact Cardiovascular Disease Osman Wesley M .D. [facility] [address] [place] [phone] Referral ID Status Reason Start Date Expiration Date Visits Requ ested Visits Authorized [id number] Closed 02/14/2021 02/14/2022 [address] Wesley utpatient (Routine) - Closed Specialty Diagnoses / Procedures Referred By Contact Refer red To Contact Diagnoses Failure Heart (HCC) Osman Wesley M.D. [facility] Procedures Echo Transthoracic (TTE) [address] [place] [phone] Referral ID Status Reason Start Date Expiration Date Visits Requ ested Visits Authorized [id number] Closed 02/09/2021 02/09/2022 1 1 utpatient (Routine) - Closed Specialty Diagnoses / Procedures Referred By Contact Refer red To Contact Cardiovascular Disease Osman Wesley M .D. [facility] [address] [place] [address] Referral ID Status Reason Start Date Expiration Date Visits Requ ested Visits Authorized [id number] Closed 02/09/2021 02/09/2022 1 1 Scheduling Instructions 3 month follow up after ECHO in resident clinic RI/CAT/PET Scan (Routine) - Closed Specialty Diagnoses / Procedures Referred By Contact Refer red To Contact Radiology Diagnoses Failure Heart ([facility]) Osman Wesley M.D. [facility] Procedures MR Cardiac without and with IV Contrast 200 [place] [address] Referral ID Status Reason Start Date Expiration Date Visits Requ ested Visits Authorized [id number] Closed 02/09/2021 02/09/2022 1 1 Reason for Visit Outpatient (Routine) - Closed Specialty Diagnoses / Procedures Referred By Referred To Contact Contact Cardiovascular Diseases / Diagnoses Diabetes Mellitus Type 2 Hyperglycemia ([facility]) Dyspnea Multifactorial Effusion Pleural [facility] Cardiovascular Disease Zahraa Nieves M.D. [address] [place] [address] Referral ID Status Reason Start Date Expiration Date Visits Requ ested Visits Authorized [id number] Closed 01/27/2021 01/27/2022 1 1 Encounter Details Date Type Department Care Team Description 02/09/2021 Comprehensive Visit Department of [facility] Zahraa Lopez M.D. [address] [place] [address] Atherosclerotic Heart Disease [place] Cor onary Artery With Other Forms Angina Pectoris (Stable Angina/Angina Of Exertion) ([facility]) (Primary Dx); Cardiovascular Kimi Fournier M.D. [address] [place] [phone] Diabetes Mellitus Type 2 Hyperglycemia ( HCC); Medicine in Dyspnea Multifa ctorial; [place], [place] Effusion Pleural; [address] [facility] Failure Heart ([facility]) [place] [address] Social History Tobacco Use Types [...] More than 4 times per year 02/09/2021 anglican services? Do you belong to any clubs [...] that he had initially returned back to [place] after his hospital stay in [place]. However he developed fevers and other systemic symptoms after returning back to [place] and was diagnosed with COVID-19 (his COVID-19 testing was negative while he was hospitalized here at [place]). He underwent monoclonal antibody infusion and repeat CT of the chest obtained back in [place] showed a worsening left-sided pleural effusion. Given his worsening symptoms he returned back to [place] and presented to the ED at which [...] rehab after his heart attack back in [place]. He reports significant functional decline and concerns [...] top. He has no trouble walking around [facility]. He avoids laying flat as he [...] Angiography; Surgeon: Raphael Holman M.B., B.Ch.; Location: [facility] CCL ??? 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 [address] [place] [phone] 05/23/2022 Office Visit Cardiovascular Disease Osman Wesley M.D. [address] [place] [phone] Scheduled Referrals Name Type Priority Associated Order Schedule Diagnoses Cardiovascular Disease Outpatient Referral Routine Expected: office visit (clinic) 2021, Expires: 02/10/2024 Cardiovascular Disease Outpatient Referral Routine Expected: office visit (clinic) 2020 (Approximate), Expires: 02/15/2024 documented as of this encounter Results (TTE) 2D LIMITED WITH COLOR , DOPPLER AND CONTRAST (05/15/2021 1:20 PM BRAZER INDUCTION) P athologist Signature Ejection 42 MC CV [...] / / Volume Laterality 05/15/2021 12:18 PM BRAZER INDUCTION Impressions 05/15/2021 8:25 PM BRAZER INDUCTION Echocardiogram performed per left ventricular function protocol. [...] Echocardiography Contrast Administration Protocol Refer ce Document [id number]. Patient met an inclusion criterion and did not have contraindicat ions in screening sections. For the complete report, see the [employer] Documents. Narrative 05/15/2021 8:25 PM BRAZER INDUCTION For the complete report, see the [employer] Documents. Final Impressions 1. Moderately enlarged left [...] the Order-L evel Documents. Final Impressions 1. Moderately enlarged left [...] Echocardiography Contrast Administration Protocol Referen ce Document [id number]. Patient met an inclusion criterion and did [...] encounter Visit Diagnoses Diagnosis Atherosclerotic Heart Disease [place] Cor onary Artery With Other Forms Angina Pectoris (Stable Angina/Angina Of Exertion) (HCC) - Primary Diabetes Mellitus Type 2 Hyperglycemia ( HCC) Dyspnea Multifactorial Effusion Pleural Failure Heart (HCC) Failure Heart (HCC) Failure Heart (HCC) documented in this encounter Additional Health Concerns Infection Onset Date Last Indicated Resolved Time COVID19 01/26/2021 01/26/2021 02/15/2021 4:55 AM CDT documented as of this encounter Care Teams Channel Executive Relationship Specialty Start Date End Date None Reported, Pcp PCP - General Family Medicine 01/25/2102/21 documented as of this encounter
--- OUTSIDE RECORDS SUMMARY | 2022-04-02 19:39 | XMS_ITS | Encounter Summary ---
:1965 Author Organization [facility] Address [address] [place] [address] Care Team Providers Name Role Phone None Reported, Pcp Primary Care Provider Unavailable Encounter Details Date Type Department Care Team Description 02/10/2021 Documentation Division of Pulmonary Greg Camacho, Medicine in [place], Zahraa Nieves M.D. [place] [address] [address] [facility] [address] [place] [phone] [phone] (Wo rk) Social History Tobacco Use Types [...] many times do you More than three juilana es a week 02/09/2021 talk on the [...] Pulmonary Medicine Mario Pitt M.D. [address] [place] [address] 05/23/2022 Office Visit Cardiovascular Disease Osman Wesley M.D. [address] [place] [address] documented as of this encounter Results DX Chest [...] documented as of this encounter Care Teams Shell Reprint Operator Relationship Specialty Start Date End Date None Reported, Pcp PCP - General Family Medicine 01/25/2102/21 documented as of this encounter
--- OUTSIDE RECORDS SUMMARY | 2022-04-02 19:39 | XMS_ITS | Encounter Summary ---
:1965 Author Organization [facility] Address [address] [place] [address] Care Team Providers Name Role Phone None Reported, Pcp Primary Care Provider Unavailable Reason for Referral MRI/CAT/PET Scan (Routine) - Closed Specialty Diagnoses / Procedures Referred By Contact Refer red To Contact Radiology Diagnoses Failure Heart (HCC) Osman Wesley M.D. [facility] Procedures MR Cardiac without and with IV Contrast [address] [place] [address] Referral ID Status Reason Start Date Expiration Date Visits Requ ested Visits Authorized [id number] Closed 02/09/2021 02/09/2022 1 1 Reason for Visit MRI/CAT/PET Scan (Routine) - Closed Specialty Diagnoses / Procedures Referred By Contact Refer red To Contact Radiology Diagnoses Failure Heart (HCC) Osman Wesley M.D. [facility] Procedures MR Cardiac without and with IV Contrast [address] [place] [address] Referral ID Status Reason Start Date Expiration Date Visits Requ ested Visits Authorized [id number] Closed 02/09/2021 02/09/2022 1 1 Encounter Details Date Type Department Care Team Description 02/10/2021 Hospital Encounter Department of Osman Wesley Failu re Heart (HCC) Radiology, Jennifer [facility], in [address] [place], [place] [address] [facility] [address] [place], [place] [phone] (Work) [phone] Social History Tobacco Use Types Packs/Day Years [...] as directed for 1 each 0 2020 [facility] diabetes control. blood-glucose meter Test as directed [...] Pulmonary Medicine Mario Pitt M.D. [address] [place] [address] 05/23/2022 Office Visit Cardiovascular Disease Osman Wesley M.D. [address] [place] [address] documented as of this encounter Procedures Procedure Name Priority Date/Time Associated Comments Diagnosis MR CARDIAC RAD - Routine 02/10/2021 4:17 Failure Heart Results fo r this WITHOUT AND WITH (most inpatients PM CDT ([facility]) procedu re are in IV CONTRAST [...] documented as of this encounter Care Teams Toy Trains [employer] Accessories Salesperson Relationship Specialty Start Date End Date None Reported, Pcp PCP - General Family Medicine 01/25/2102/21 documented as of this encounter
--- OUTSIDE RECORDS SUMMARY | 2022-04-02 19:39 | XMS_ITS | Encounter Summary ---
:1965 Author Organization [facility] Address [address] [place] [address] Care Team Providers Name Role Phone Elsewhere, Pcp Primary Care Provider Unavailable Reason for Referral Outpatient (Routine) - Closed Specialty Diagnoses / Procedures Referred By Contact Refer red To Contact Cardiovascular Disease Osman Wesley M .D. [facility] [address] [place] [address] Referral ID Status Reason Start Date Expiration Date Visits Requ ested Visits Authorized [id number] Closed 02/23/2021 02/23/2022 1 1 utpatient (Routine) - Closed Specialty Diagnoses / Procedures Referred By Contact Refer red To Contact Diagnoses Atherosclerotic Heart Disease [place] Coronary Artery With Other Forms Angina Pectoris (Stable Angina/Angina Of Exertion) (HCC) Osman Wesley M.D. [facility] Procedures ECG Heart Rhythm Monitor (Holter) [address] [place] [address] Referral ID Status Reason Start Date Expiration Date Visits Requ ested Visits Authorized [id number] Closed 02/23/2021 02/23/2022 1 1 Reason for Visit Appointment Request (Routine) - Closed Specialty Diagnoses / Procedures Referred By Contact Refer red To Contact Cardiovascular Disease Referral ID Status Reason Start Date Expiration Date Visits Requ ested Visits Authorized [id number] Closed 02/20/2021 02/20/2022 1 1 Encounter Details Date Type Department Care Team Description 02/23/2021 Office Visit Department of Israel Hayden c Heart Disease [place] Coronary Artery With Other Forms Angina Pectoris (Stable Angina/Angina Of Exertion) ([facility]) (Primary Dx); Cardiovascular Medicine Sai Bright M.D. 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 male who presents to [facility] for follow up of [...] started this because he is in between [place] and [place]. He understands the importance of cardiac rehab. [...] EXAM: CT CHEST WITH IV CONTRAST COMPARISON: [facility] examination from 11/28/2020. FINDINGS: In the interval [...] ASSESSMENT / PLAN # Atherosclerotic Heart Disease [place] Coronary Artery With Other Forms Angina Pectoris (Stable Angina/Angina Of Exertion) ([facility]) # History of ST Elevation Myocardial Infarction Involving Left Anterior Descending Coronary Artery ([facility]) (December 2019) # Congestive Heart Failure Ejection Fraction Less Than 40 Percent ([facility]) (NYHA Class 2) # Cardiomyopathy Ischemic Mr. [...] pursuethis. 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 Dr. Wesley and I reviewed Mr. Fairbanks's [...] Appointment Pulmonary Medicine Mario Pitt M.D. [address] [place] [address] 05/23/2022 Office Visit Cardiovascular Disease Osman Wesley M.D. [address] [place] [address] Scheduled Referrals Name Type Priority Associated Order Schedule Diagnoses Cardiovascular Disease Outpatient Referral Routine Expected: nurse visit (clinic) 021 (Approximate), Expires: 02/24/2024 documented as of this encounter Results Basic Metabolic Panel (05/15/2021 1:43 PM HARDBOARD GRINDER) P athologist Signature Potassium, S 4.2 3.6 - 5.2 05/15/2021 DTL mmol/L 2:47 PM [facility]OARD GRINDER Sodium, S 144 135 - 145 05/15/2021 DTL mmol/L 2:47 PM [facility]OARD GRINDER Chloride, S 104 98 - 107 05/15/2021 DTL mmol/L 2:47 PM [facility]OARD GRINDER Bicarbonate, S 27 22 - 29 05/15/2021 DTL mmol/L 2:47 PM [facility]DBOARD GRINDER Anion Gap 13 7 - 15 05/15/2021 DTL 2:47 PM [facility]DBOARD GRINDER BUN (Blood Urea 11 8 - 24 05/15/2021 DTL Nitrogen), S mg/dL 2:47 PM [facility]OARD GRINDER Creatinine 1.10 0.74 - 05/15/2021 DTL 1.35 mg/dL 2:47 PM [facility]DBOARD GRINDER eGFR-Non 75 >=60 05/15/2021 DTL Black/ mL/min/BSA 2:47 PM HARDBOARD GRINDER Somali Comment: ----ADDITIONAL INFORMATION---- Estimated GFR calculated using the 2009 CKD_EPI creatinine equation. eGFR-Black/ 87 >=60 mL/min/BSA 2021 2:47 PM HARDBOARD GRINDER DTL Comment: ----ADDITIONAL INFORMATION---- Estimated GFR calculated using the 2009 CKD_EPI creatinine equation. Calcium, Total, S 9.4 8.6 - 10.0 mg/dL 05/15/2021 2:47 PM HARDBOARD GRINDER DTL Glucose, S 81 70 - 140 mg/dL 05/15/2021 2:47 PM HARDBOARD GRINDER D TL Specimen Anatomical Collection Method Collection Time Receive d Time (Source) Location / / Volume Laterality Blood (Blood, 05/15/2021 1:43 PM 05/15/19 2:20 Venous) HARDBOARD GRINDER PM [facility] GRINDER Osman Wesley M.D. LAB BLOOD ADD-ON Performing Organization Address City/State/ZIP Code Phon e Number [facility] - [address] [place], [place] [address] [facility] [place] [place] [address] [facility] [address] HOLTER MONITOR - IN CLINIC FLOOR INSPECTOR (02/24/2021 2:54 PM CDT) Patholo gist Method Time Signature Min Heart Rate [...] AF Duration 0 duration INFOBIONIC MOME AF [place] 0 percent INFOBIONIC MOME Symptom Count 1 [...] was 102 bpm. VPCs were seen singly. Food Safety Coordinator: Ida Reece/Leena Oconnell Procedure Note Carlos Ryder M.D., Ph.D. - [...] was 102 bpm. VPCs were seen singly. Food Safety Coordinator: Ida Reece/Leena Oconnell Osman Wesley M.D. CV CARDIAC SERVICES PROCEDUR ES Performing Organization Address City/State/ZIP Code Phon e Number INFOBIONIC MOME INFOBIONIC MOME NA (ABNORMAL) Troponin T, 5th Generation (02/23/2021 1:25 PM CDT) athologist Signature Troponin T, 5th 18 (H) <=15 ng/L 02/23/2021 DTL gen 2:34 PM CDT Specimen Anatomical Collection Method Collection Time Receive d Time (Source) Location / / Volume Laterality Blood (Blood, 02/23/2021 1:25 PM 02/24/20 2:06 Venous) CDT PM CDT Osman Wesley M.D. LAB BLOOD ADD-ON Performing Organization Address City/[facility]/ZIP Code Phon e Number [facility] - [address] [place] [address] [facility] [place] [address] [facility] 200 [facility] [place] [facility] Basic Metabolic Panel (02/23/2021 1:25 PM CDT) athologist Signature Potassium, S 4.9 3.6 - [...] 02/23/2021 DTL Black/ mL/min/BSA 2:35 PM CDT Somali Comment: ----ADDITIONAL INFORMATION---- Estimated GFR calculated using [...] ADD-ON Performing Organization Address City/[facility] Phon e Number [facility] - [address] [place], [place] [address] [place] [id number] [place] [address] (ABNORMAL) NT-Pro B-Type Natriuretic Peptide (BNP) (02/23/2021 [...] ADD-ON Performing Organization Address City/[facility] Phon e Number [facility] - [address] [place], [place] [address] [facility] [place], [place] [id number] [place] [address] documented in this encounter Visit Diagnoses Diagnosis Atherosclerotic Heart Disease [place] Cor onary Artery With Other Forms Angina Pectoris (Stable Angina/Angina Of Exertion) ([facility]) - Primary Congestive Heart Failure Ejection Fracti on Less Than 40 Percent ([facility]) ST Elevation Myocardial Infarction Invol ving Left Anterior Descending Coronary Artery ([facility]) Cardiomyopathy Ischemic Atherosclerotic Heart Disease [place] Cor onary Artery With Other Forms Angina Pectoris (Stable Angina/Angina Of Exertion) ([facility]) documented in this encounter Care Teams Field Marketing Specialist Relationship Specialty Start Date End Date Elsewhere, Pcp PCP - General 02/22/21 documented as of this encounter
--- OUTSIDE RECORDS SUMMARY | 2022-04-02 19:39 | XMS_ITS | Encounter Summary ---
:1965 Author Organization [facility] Address [address] [place] [address] Care Team Providers Name Role Phone Elsewhere, Pcp Primary Care Provider Unavailable Encounter Details Date Type Department Care Team Description 02/24/2021 Hospital Division of [place], Atherosclerotic Heart Encounter Cardiovascular [place], Disease Nativ e [facility] With Other Forms [place] [address] Angina Pectoris (Stable [address] Angina/Angina Of [place], [place], [facility]) ([facility] ) [address] [place] [phone] Social History Tobacco Use Types Packs/Day Years [...] through Care Everywhere.Care Following Your Catheter Procedure (Tajik)documented in this encounter Medications at Time of Discharge Medication Sig Dispensed Refills Start Date End Date spironolactone Take 1 tablet (25 mg 30 [...] directed for 1 each 0 2020 [facility] diabetes control. blood-glucose meter Test as directed for 1 each 0 2020 miscIndications: diabetes control. Diabetes Mellitus Type 2 Hyperglycemia (HCC) metoprolol succinate TAKE 1 TABLET BY 60 tablet 1 1 (TOPROL-XL) 100 mg 24 MOUTH DAILY, DO NOT hr tablet CRUSH OR CHEW multivitamin tablet Take 1 tablet by 0 mouth daily. Diabetic Complete Multivitamin Ventolin HFA 90 INHALE 2 PUFFS BY 18 g 4 02/23/2021 mcg/actuation inhaler MOUTH EVERY FOUR HOURS NEEDED FOR WHEEZING OR SHORTNESS OF BREATH losartan (COZAAR) 100 Take 1 tablet (100 [...] then increase to 2 tabs twice daily. clopidogreL (PLAVIX) 75 TAKE 1 TABLET BY [...] capsule mg total) by mouth at bedtime. pantoprazole (PROTONIX) Take 1 tablet (40 mg [...] instructions were reviewed in detail as per [id number] with patient and family. They verbalized understanding. Follow up appointment is arranged. Patient was dismissed when discharge criteria was met, accompanied by family. All questions answered. documented in this encounter Plan of Treatment Upcoming Encounters Date Type Specialty Care Team Description 04/06/2022 Clinical Communication Admitting/Central Scheduling 04/09/2022 Appointment Pulmonary Medicine Mario Pitt M.D. [address] [place] [address] 05/23/2022 Office Visit Cardiovascular Disease Osman Wesley M.D. [address] [place] [address] documented as of this encounter Procedures Procedure Name Priority Date/Time Associated Diagnosis Comme nts CARDIAC Routine 02/24/2021 4:27 Atherosclerotic Heart Res ults for this CATHETERIZATION PM CDT Disease Kiana procedure are in Coronary Artery With the res ults Other Forms Angina section. Pectoris (Stable Angina/Angina Of Exertion) ([facility]) CARDIAC Routine 02/24/2021 4:27 Atherosclerotic Heart Res ults for this CATHETERIZATION PM CDT Disease Kiana procedure are in Coronary Artery With the res ults Other Forms Angina section. Pectoris (Stable Angina/Angina Of Exertion) ([facility]) ADULT OXYGEN THERAPY Routine 02/24/2021 3:24 PM [...] Forms Angina Pectoris (Stable Angina/Angina Of Exertion) ([facility]) CORONARY DIAGNOSTIC SUMMARY Coronary artery dominance is [...] Address City/State/ZIP Code Phon e Number POC [facility] [address] [place] [address] [facility] [place] [place] [address] [place] POC [address] documented in this encounter Visit Diagnoses Diagnosis Atherosclerotic Heart Disease [place] Cor onary Artery With Other Forms Angina Pectoris (Stable Angina/Angina Of Exertion) (HCC) - Primary Atherosclerotic Heart Disease [place] Cor onary Artery With Other Forms Angina Pectoris (Stable Angina/Angina Of Exertion) (HCC) documented in this encounter Admitting Diagnoses Diagnosis Atherosclerotic Heart Disease [place] Cor onary Artery With Other Forms Angina [...] Provider: Irene Gibson R.N.)1618 (Given - Provider: Irene Gibson R.N.) As [...] Gibson R.N.)1607 (Given - Provider: Irene Gibson RLisaN.) As needed, Starting on Sat02/24/21 at 1556, [...] (CANCELED) 1535 (Given - Provider: Irene Gibson RLisaNLisa)1545 (Given - Provider: Carrie MclainNLisa)1548 (Given - Provider: Carrie MclainNLisa) As needed, [...] (CV) documented in this encounter Care Teams Informatics Developer Relationship Specialty Start Date End Date Elsewhere, Pcp PCP - General 02/22/21 documented as of this encounter
--- OUTSIDE RECORDS SUMMARY | 2022-04-02 19:39 | XMS_ITS | Encounter Summary ---
:1965 Author Organization [facility] Address [address] [place] [address] Care Team Providers Name Role Phone None Reported, Pcp Primary Care Provider Unavailable Reason for Visit Reason Comments Cardiac rehab referral Encounter Details Date Type Department Care Team Description 02/10/2021 Clinical Department of [place], Cardiac rehab Communication Cardiovascular Anat Bright, referral Medicine in [place], [place] [address] [facility] [address] [place] [phone] Social History Tobacco Use Types Packs/Day Years [...] or relatives? How often do you attend [employer]ats[employer] or More than 4 times per year 02/09/2021 [employer] [facility]? Do you belong to any clubs or Yes 02/09/2021 organizations such as uatsdin groups, unions, fraternal or athletic groups, or [...] a [place] [facility] (including now)? Education Answer Date Recorded What [...] will continue traveling back and forth from [place] to [place] every few weeks. When he establishes a residence in [place], he plans to reach out to his care team for a referral to a local cardiac rehab program. All questions were answered to the best of my ability. Telephone Encounter - Anat Fay RCEP - 02/10/2021 9:47 AM CDT Phone call made to patient to discuss a cardiac rehab referral. Patient reports he is in the processof moving to [place] from [place] and continuing to work with the pulmonary department here at [place] [facility] to discuss ongoing workup. Cardiac rehab was explained to the patient and it is something he is interested in completing. He requests we contact him again in 1 week to discuss a referral location, as he may know more about a living situation in [place] that time. All other questions and concerns were answered to the best of my ability. documented in this encounter Plan of Treatment Upcoming Encounters Date Type Specialty Care Team Description 04/06/2022 Clinical Communication Admitting/Central Scheduling 04/09/2022 Appointment Pulmonary Medicine Mario Pitt M.D. [address] [place] [address] 05/23/2022 Office Visit Cardiovascular Disease Osman Wesley M.D. [address] [place] [address] documented as of this encounter Visit Diagnoses Not on filedocumented in this encounter Additional Health Concerns Infection Onset Date Last Indicated Resolved Time COVID19 01/26/2021 01/26/2021 02/15/2021 4:55 AM CDT documented as of this encounter Care Teams Rn Diabetes Relationship Specialty Start Date End Date None Reported, Pcp PCP - General Family Medicine 01/25/2102/21 documented as of this encounter
--- OUTSIDE RECORDS SUMMARY | 2022-04-02 19:39 | XMS_ITS | Encounter Summary ---
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 How often do you attend restorationist or More than 4 times per year 02/09/2021 orthodox services? Do you belong to any clubs or Yes 02/09/2021 organizations such as restorationist groups, unions, fraternal or athletic groups, or [...] for 1 each 0 2020 [facility] diabetes control. blood-glucose meter Test as directed [...] Pulmonary Medicine Mario Pitt M.D. [address] [place] [address] 05/23/2022 Office Visit Cardiovascular Disease Osman Wesley M.D. [address] [place] [address] documented as of this encounter Procedures Procedure Name Priority Date/Time Associated Diagnosis Comme nts LIPID PANEL, S Routine 02/09/2021 8:17 AM Pneumothorax Results for this CDT Unspecified procedure are in Hypertension the results Essential Primar y section. Atherosclerotic Heart Disease [place] Coronary Artery With Other Forms Angina Pectoris (Stable Angina/Angina Of Exertion) (HCC) Diabetes Mellitus Type 2 Hyperglycemia (HCC) Failure Heart (HCC) NT-PRO B-TYPE Routine 02/09/2021 8:17 AM Pneumothorax Results for this NATRIURETIC PEPTIDE CDT Unspecified procedure are in (BNP), S Hypertension the results Essential Primar y section. Atherosclerotic Heart Disease [place] Coronary Artery With Other Forms Angina Pectoris (Stable Angina/Angina Of Exertion) (HCC) Diabetes Mellitus Type 2 Hyperglycemia (HCC) Failure Heart (HCC) CBC WITH Routine 02/09/2021 8:17 AM Pneumothorax Results f or this DIFFERENTIAL, B CDT Unspecified procedure are in Hypertension the results Essential Primar y section. Atherosclerotic Heart Disease [place] Coronary Artery With Other Forms Angina Pectoris (Stable Angina/Angina Of Exertion) (HCC) Diabetes Mellitus Type 2 Hyperglycemia (HCC) Failure Heart (HCC) HEMOGLOBIN A1C, B Routine 02/09/2021 8:17 AM Diabetes Mellitus Results for this CDT Type 2 Hyperglycemia procedu re are in (HCC) the results section. BASIC METABOLIC Routine 02/09/2021 8:17 AM Pneumothorax Result s for this PANEL, S/P CDT Unspecified procedure are in Hypertension the results Essential Primar y section. Atherosclerotic Heart Disease [place] Coronary Artery With Other Forms Angina Pectoris (Stable Angina/Angina Of Exertion) (HCC) Diabetes Mellitus Type 2 Hyperglycemia (HCC) Failure Heart (HCC) documented in this encounter Results (ABNORMAL) Hemoglobin A1c (02/09/2021 8:17 AM CDT) athologist Signature Hemoglobin A1c, 6.4 (H) 4.0 - 5.6 02/09/2021 DTL B % 9:57 AM CDT Comment: Hemoglobin [...] Organization Address City/State/ZIP Code Phon e Number [facility] - [address] [place], [place] [address] [facility] [place] [address] [facility] [address] (ABNORMAL) NT-Pro [...] AM 02/10/20 9:14 Venous) CDT AM CDT Colt Hyde APRN.N.Roger., M.S.N. LAB BLOOD ADD- ON Performing Organization Address City/State/ZIP Code Phon e Number [facility] - [address] [place], [place] [address] [facility] [place] [address] [facility] [address] [facility] (ABNORMAL) Lipid Panel (02/09/2021 8:17 [...] 02/10/20 9:14 Venous) CDT AM CDT Erica S Michele SMALL C.N.P., M.S.N. LAB BLOOD ADD- ON Performing Organization Address City/State/ZIP Code Phon e Number [facility] - [address] [place], [place] [address] [facility] [place] [address] [facility] [address] Basic Metabolic Panel (02/09/2021 8:17 AM [...] 02/09/2021 DTL Black/ mL/min/BSA 9:53 AM CDT Spanish Comment: ----ADDITIONAL INFORMATION---- Estimated GFR calculated using [...] Organization Address City/State/ZIP Code Phon e Number [facility] - [address] [place], [place] [address] [facility] [place] [address] [facility] [address] [facility] (ABNORMAL) CBC with Differential, Blood (02/09/2021 8:17 AM CDT) [facility] Method Time Signature Hemoglobin 13.1 (L) 13.2 [...] Organization Address City/State/ZIP Code Phon e Number [facility] - [address] [place], [place] [address] [facility] [place] [address] [facility] [address] documented in this encounter Visit Diagnoses Diagnosis Pneumothorax Unspecified Hypertension Essential Primary Atherosclerotic Heart Disease [place] Cor onary Artery With Other Forms Angina Pectoris (Stable Angina/Angina Of Exertion) (HCC) Diabetes Mellitus Type 2 Hyperglycemia ( HCC) Failure Heart (HCC) Effusion Pleural documented in this encounter Additional Health Concerns Infection Onset Date Last Indicated Resolved Time COVID19 01/26/2021 01/26/2021 02/15/2021 4:55 AM CDT documented as of this encounter Care Teams Boilermaker Pipe Fitter Relationship Specialty Start Date End Date None Reported, Pcp PCP - General Family Medicine 01/25/2102/21 documented as of this encounter
--- OUTSIDE RECORDS SUMMARY | 2022-04-02 19:39 | XMS_ITS | Encounter Summary ---
:1965 Author Organization [facility] Address [address] [place] [address] Care Team Providers Name Role Phone Elsewhere, Pcp Primary Care Provider Unavailable Encounter Details Date Type Department Care Team Description 02/24/2021 Surgery Division of Cardiovascular Cat Rizo, Coronary Angiography Diseases in [facility] [place] [address] [facility] [address] [place] [address] [phone] Social History Tobacco Use Types Packs/Day Years [...] More than 4 times per year 02/09/2021 voodoo services? Do you belong to any clubs [...] through Care Everywhere.Care Following Your Catheter Procedure (Macedonian)documented in this encounter Medications at Time of [...] as directed for 1 each 0 2020 [facility] diabetes control. blood-glucose meter [...] 1 tablet (20 mg 90 tablet 0 10/1 07/2020 03/08/2021 mg tablet total) by mouth daily. gabapentin [...] instructions were reviewed in detail as per [id number] with patient and family. They verbalized understanding. Follow up appointment is arranged. Patient was dismissed when discharge criteria was met, accompanied by family. All questions answered. documented in this encounter Plan of Treatment Upcoming Encounters Date Type Specialty Care Team Description 04/06/2022 Clinical Communication Admitting/Central Scheduling 04/09/2022 Appointment Pulmonary Medicine Mario Pitt M.D. [address] [place] [address] 05/23/2022 Office Visit Cardiovascular Disease Osman Wesley M.D. [address] [place] [address] documented as of this encounter Procedures Procedure Name Priority Date/Time Associated Diagnosis Comme nts CARDIAC Routine 02/24/2021 4:27 Atherosclerotic Heart Res ults for this CATHETERIZATION PM CDT Disease [place] procedure are in Coronary Artery With the res ults Other Forms Angina section. Pectoris (Stable Angina/Angina Of Exertion) ([facility]) CARDIAC Routine 02/24/2021 4:27 Atherosclerotic Heart Res ults for this CATHETERIZATION PM CDT Disease [place] procedure are in Coronary Artery With the res ults Other Forms Angina section. Pectoris (Stable Angina/Angina Of Exertion) ([facility]) ADULT OXYGEN THERAPY Routine 02/24/2021 [...] For the complete report, see the [employer] Documents. PROCEDURE TYPES 1. ??CORONARY ANGIOGRAPHY 2. ??INSTANTANEOUS FLOW RESERVE FINAL DIAGNOSIS 1. ??Moderate diffuse multivessel kellogg ry artery atherosclerosis 2. ??Instantaneous wave-free ratio (iFR) in the distal LAD and left posterolateral (and its branches) is above the ischemic threshold. PRE-PROCEDURE DIAGNOSIS 1. ??Atherosclerotic Heart Disease [place] Coronary Artery With Other Forms Angina Pectoris (Stable Angina/Angina Of Exertion) ([facility]) CORONARY DIAGNOSTIC SUMMARY Coronary artery [...] Address City/State/ZIP Code Phon e Number POC [facility] [address] [place] [address] [facility] [place] [address] [place] [facility] [address] documented in this encounter Visit Diagnoses Diagnosis Atherosclerotic Heart Disease [place] Cor onary Artery With Other Forms Angina Pectoris (Stable Angina/Angina Of Exertion) (HCC) - Primary Atherosclerotic Heart Disease [place] Cor onary Artery With Other Forms Angina Pectoris (Stable Angina/Angina Of Exertion) (HCC) documented in this encounter Admitting Diagnoses Diagnosis Atherosclerotic Heart Disease [place] Cor onary Artery With Other Forms Angina [...] intravenous, As needed, line care, Starting on nc 02/24/21 at 1320, Preprocedure (CV), Prior to [...] (COMPLETED) 1330 (Given - Provider: Lexii Stuart RLisaN.) 324 mg, oral, Once, On Sat02/24/21 at 1330, For 1 dose, Preproc edure (CV) clopidogreL tablet 75 mg (PLAVIX) (COMPLETED) 1330 (Given - Provider: Lexii Stuart, R.N.) 75 mg, oral, Once, On Sat02/24/21 [...] (CV) documented in this encounter Care Teams Stone Finisher Relationship Specialty Start Date End Date Elsewhere, Pcp PCP - General 02/22/21 documented as of this encounter
--- OUTSIDE RECORDS SUMMARY | 2022-04-02 19:39 | XMS_ITS | Encounter Summary ---
:1965 Author Organization [facility] Address [address] [place] [address] Care Team Providers Name Role Phone Elsewhere, Pcp Primary Care Provider Unavailable Encounter Details Date Type Department Care Team Description 02/23/2021 Orders Only Division of Pulmonary Greg Camacho, Medicine in [place], Zahraa Nieves M.D. [place] [address] [facility] [address] [place] [address] [place] [address] [phone] Social History Tobacco Use Types Packs/Day Years [...] or relatives? How often do you attend mormon or More than 4 times per year 02/09/2021 jew services? Do you belong to any clubs or Yes 02/09/2021 organizations such as mormon groups, unions, fraternal or athletic groups, or [...] Appointment Pulmonary Medicine Mario Pitt M.D. 200 [place] [phone] 05/23/2022 Office Visit Cardiovascular Disease Osman Wesley M.D. 200 [place] [phone] documented as of this encounter Visit Diagnoses Not on filedocumented in this encounter Care Teams Photoradio Operator Relationship Specialty Start Date End Date Elsewhere, Pcp PCP - General 02/22/21 documented as of this encounter
--- OUTSIDE RECORDS SUMMARY | 2022-04-02 19:39 | XMS_ITS | Encounter Summary ---
:1965 Author Organization [facility] Address [address] [place] [address] Care Team Providers Name Role Phone Elsewhere, Pcp Primary Care Provider Unavailable Reason for Referral Outpatient (Routine) - Closed Specialty Diagnoses / Procedures Referred By Contact Refer red To Contact Diagnoses Atherosclerotic Heart Disease [place] Coronary Artery With Other Forms Angina Pectoris (Stable Angina/Angina Of Exertion) ([facility]) Osman Wesley M.D. [facility] Procedures ECG Heart Rhythm Monitor (Holter) [address] [place] [address] Referral ID Status Reason Start Date Expiration Date Visits Requ ested Visits Authorized [id number] Closed 02/23/2021 02/23/2022 1 1 Reason for Visit Outpatient (Routine) - Closed Specialty Diagnoses / Procedures Referred By Contact Refer red To Contact Diagnoses Atherosclerotic Heart Disease [place] Coronary Artery With Other Forms Angina Pectoris (Stable Angina/Angina Of Exertion) ([facility]) Osman Wesley M.D. [facility] Procedures ECG Heart Rhythm Monitor (Holter) [address] [place] [address] Referral ID Status Reason Start Date Expiration Date Visits Requ ested Visits Authorized [id number] Closed 02/23/2021 02/23/2022 1 1 Encounter Details Date Type Department Care Team Description 02/23/2021 Hospital Department of Osman Wesley Heart Encounter Cardiovascular Anita Ahmadi Disease [place] Diseases in [place], [facility] [address] Coronary Artery With [place], [place] Other Forms Angina [address] [place] [address] Pectoris (Stable [place], [place] [phone] [place] [phone] (Work) Exertion) ([facility]) [phone] Social History Tobacco Use Types Packs/Day Years [...] as directed for 1 each 0 2020 [facility] diabetes control. blood-glucose meter Test [...] Appointment Pulmonary Medicine Mario Pitt M.D. [address] [place] [phone] 05/23/2022 Office Visit Cardiovascular Disease Osman Wesley M.D. 200 [place] [phone] documented as of this encounter Procedures Procedure Name Priority Date/Time Associated Diagnosis Comme nts HOLTER MONITOR - Routine 02/24/2021 2:54 PM Atherosclerotic He art Results for this IN CLINIC RECOVERY RN CDT Disease [place] Coronary procedure are in Artery With Other Forms the results Angina Pectoris (Stable sect ion. Angina/Angina Of Exertion) (HCC) documented in this encounter Results HOLTER MONITOR - IN CLINIC RECOVERY RN (02/24/2021 2:54 PM CDT) [facility] Method Time Signature Min Heart Rate 70 [...] AF Duration 0 duration INFOBIONIC MOME AF [place] 0 percent INFOBIONIC MOME Symptom Count 1 [...] was 102 bpm. VPCs were seen singly. Healthcare Risk Control Consultant: Ida eRece/Leena Oconnell Procedure Note Carlos Ryder M.D., Ph.D. [...] was 102 bpm. VPCs were seen singly. Healthcare Risk Control Consultant: Ida Reece/Leena Oconnell Osman Wesley M.D. CV CARDIAC SERVICES PROCEDUR ES Performing Organization Address City/State/ZIP Code Phon e Number INFOBIONIC MOME INFOBIONIC MOME NA documented in this encounter Visit Diagnoses Diagnosis Atherosclerotic Heart Disease [place] Cor onary Artery With Other Forms Angina Pectoris (Stable Angina/Angina Of Exertion) (HCC) documented in this encounter Care Teams Tug Hand Relationship Specialty Start Date End Date Elsewhere, Pcp PCP - General 02/22/21 documented as of this encounter
--- OUTSIDE RECORDS SUMMARY | 2022-04-02 19:39 | XMS_ITS | Encounter Summary ---
:1965 Author Organization [facility] Address [address] [place] [address] Care Team Providers Name Role Phone Elsewhere, Pcp Primary Care Provider Unavailable Encounter Details Date Type Department Care Team Description 02/23/2021 Hospital Encounter Department of Osman Wesley [facility] Heart Laboratory Medicine Anita Ahmadi Disease [place] Coronary and Pathology, [address] [facility] Artery With Other Forms [facility] in [place], [place] Angina Pectoris (Stable [facility] [phone] Angina/Angina Of [place] [phone] Exertion) ([facility]) [address] [facility] (Work) [place], [place] [phone] [phone] (Fax) [phone] Social History Tobacco Use Types Packs/Day Years [...] for 1 each 0 2020 [facility] diabetes control. blood-glucose meter Test as directed [...] Pulmonary Medicine Mario Pitt M.D. [address] [place] [address] 05/23/2022 Office Visit Cardiovascular Disease Osman Wesley M.D. [address] [place] [address] documented as of this encounter Procedures Procedure Name Priority Date/Time Associated Diagnosis Comme nts NT-PRO B-TYPE Routine 02/23/2021 1:25 Atherosclerotic Heart Re sults for this NATRIURETIC PEPTIDE PM CDT Disease [place] Worthy ry procedure are in (BNP), S Artery With Other Forms the results Angina Pectoris (Stable sect ion. Angina/Angina Of Exertion) ([facility]) TROPONIN T, 5TH Routine 02/23/2021 1:25 Atherosclerotic Heart Results for this GEN, P PM CDT Disease [place] Coronary proc edure are in Artery With Other Forms the results Angina Pectoris (Stable sect ion. Angina/Angina Of Exertion) (HCC) BASIC METABOLIC Routine 02/23/2021 1:25 Atherosclerotic Heart Results for this PANEL, S/P PM CDT Disease [place] Coronary proc edure are in Artery With Other Forms the results Angina Pectoris (Stable sect ion. Angina/Angina Of Exertion) ([facility]) documented in this encounter Results (ABNORMAL) Troponin [...] City/State/ZIP Code Phon e Number [facility] - 200 [place], [place] [address] [facility] [place] [address] [facility] [address] [facility] Basic Metabolic Panel (02/23/2021 1:25 PM CDT) [...] 02/23/2021 DTL Black/ mL/min/BSA 2:35 PM CDT Turkmen Comment: ----ADDITIONAL INFORMATION---- Estimated GFR calculated using [...] M.D. LAB BLOOD ADD-ON Performing Organization Address City/[facility] Phon e Number [facility] - [phone] [place] [address] (ABNORMAL) NT-Pro B-Type Natriuretic Peptide (BNP) (02/23/2021 1:25 PM CDT) athologist Signature NT-Pro BNP 933 (H) <=67 [...] M.D. LAB BLOOD ADD-ON Performing Organization Address City/[facility] Phon e Number [facility] - [address] [place], [place] [address] [place] [address] [facility] documented in this encounter Visit Diagnoses Diagnosis Atherosclerotic Heart Disease [place] Cor onary Artery With Other Forms Angina Pectoris (Stable Angina/Angina Of Exertion) (HCC) documented in this encounter Care Teams Real Estate Administrator Relationship Specialty Start Date End Date Elsewhere, Pcp PCP - General 02/22/21 documented as of this encounter
--- OUTSIDE RECORDS SUMMARY | 2022-04-02 19:39 | XMS_ITS | Encounter Summary ---
:1965 Author Organization [facility] Address [address] [place] [address] Care Team Providers Name Role Phone Elsewhere, Pcp Primary Care Provider Unavailable Reason for Visit Outpatient (Routine) - Closed Specialty Diagnoses / Procedures Referred By Contact Refer red To Contact Cardiovascular Disease Osman Wesley M .D. [place] [address] [place] [address] Referral ID Status Reason Start Date Expiration Date Visits Requ ested Visits Authorized [id number] Closed 02/23/2021 02/23/2022 1 1 Encounter Details Date Type Department Care Team Description 02/23/2021 Virtual Visit Department of Osman Wesley M.D. [address] [place] [phone] Atherosclerotic Heart Cardiovascular Jessica Carlton, R.NLisa [address] [place] [phone] Disease [place] Coronary Medicine in [place], Arter y With Other Forms [place] Angina Pectoris (Stable [address] [facility] Angina/Angina Of [place], [place] Exertion) ([facility] ) [phone] Social History Tobacco Use Types Packs/Day Years [...] pm. 5. Stay within 100 miles of [place] overnight 6. Take all medications as instructed 7. Call the [facility] Service Line ([phone]) the evening before the procedure between the [...] Invasive Catheterization Procedure Patient Management Reference document #[id number] Date of procedure: 02/24/2021 Procedure to be [...] Cardiac Catheterization or Heart Rhythm Procedure?? , [id number]. See After Visit Summary for specific instructions [...] Pulmonary Medicine Mario Pitt M.D. [address] [place] [address] 05/23/2022 Office Visit Cardiovascular Disease Osman Wesley M.D. [address] [place] [address] documented as of this encounter Visit Diagnoses Diagnosis Atherosclerotic Heart Disease [place] Cor onary Artery With Other Forms Angina Pectoris (Stable Angina/Angina Of Exertion) (HCC) documented in this encounter Care Teams Ampoule Filler Relationship Specialty Start Date End Date Elsewhere, Pcp PCP - General 02/22/21 documented as of this encounter
--- OUTSIDE RECORDS SUMMARY | 2022-04-02 19:39 | XMS_ITS | Encounter Summary ---
:1965 Author Organization [facility] Address [address] [place] [address] Care Team Providers Name Role Phone Elsewhere, Pcp Primary Care Provider Unavailable Encounter Details Date Type Department Care Team Description 02/23/2021 Hospital Encounter Department of Beata Rodriguez Pleural Radiology, [place] Zahraa Nieves M.D. Building, in [address] [place] [address] [place] [phone] [place], [place] [phone] (Work) [phone] Social History Tobacco Use Types Packs/Day Years [...] More than 4 times per year 02/09/2021 synagogue services? Do you belong to any clubs [...] 12/06/2020 stripsIndications: Diabetes Mellitus Type 2 Hyperglycemia ([facility]) blood sugar diagnostic USE DIRECTED TWO 100 each 1 08/2020 strips TIMES A DAY blood-glucose meter Test as directed for 1 each 0 2020 [facility] [place] control. blood-glucose meter Test as directed for 1 each 0 2020 miscIndications: diabetes control. Diabetes Mellitus Type 2 Hyperglycemia ([facility]) metoprolol succinate TAKE 1 TABLET BY 60 [...] Admitting/Central Scheduling 04/09/2022 Appointment Pulmonary Medicine Mario Ptit M.D. [address] [place] [address] 05/23/2022 Office Visit Cardiovascular Disease Osman Wesley M.D. [address] [place] [address] documented as of this encounter Procedures Procedure [...] Pleural documented in this encounter Care Teams Refurbish Technician Relationship Specialty Start Date End Date Elsewhere, Pcp PCP - General 02/22/21 documented as of this encounter
--- OUTSIDE RECORDS SUMMARY | 2022-04-02 19:40 | XMS_ITS | Encounter Summary ---
:1965 Author Organization [facility] Address [address] [place] [address] Care Team Providers Name Role Phone None Reported, Pcp Primary Care Provider Unavailable Encounter Details Date Type Department Care Team Description 01/31/2021 Orders Only Division of Pulmonary Betty Laurent M.D. Medicine in [place], [facility] [address] [place], [place] [address] [facility] [address] [place] [address] [phone] Social History Tobacco Use Types Packs/Day Years [...] or slept in a halfway (including now)? Sex Assigned at Date Recorded Male 02/09/2021 2:11 PM CDT documented as of this encounter Plan of Treatment Upcoming Encounters Date Type Specialty Care Team Description 04/06/2022 Clinical Communication Admitting/Central Scheduling 04/09/2022 Appointment Pulmonary Medicine Mario Pitt M.D. 200 [place] [address] 05/23/2022 Office Visit Cardiovascular Disease Osman Wesley M.D. 200 [place] [address] documented as of this encounter Visit Diagnoses Not on filedocumented in this encounter Additional Health Concerns Infection Onset Date Last Indicated Resolved Time COVID19 01/26/2021 01/26/2021 02/15/2021 4:55 AM CDT documented as of this encounter Care Teams Tavern Car Attendant Relationship Specialty Start Date End Date None Reported, Pcp PCP - General Family Medicine 01/25/2102/21 documented as of this encounter
--- OUTSIDE RECORDS SUMMARY | 2022-04-02 19:40 | XMS_ITS | Encounter Summary ---
:1965 Author Organization [facility] Address [address] [place] [address] Care Team Providers Name Role Phone Unavailable Primary Care Provider Unavailable Reason for Visit Appointment Request (Routine) - Closed Specialty Diagnoses / Procedures Referred By Contact Refer red To Contact Pulmonary Medicine Diagnoses Edema Pulmonary (HCC) Referral ID Status Reason Start Date Expiration Date Visits Requ ested Visits Authorized [id number] Closed 12/21/2020 12/21/2021 2 1 Encounter Details Date Type Department Care Team Description 12/30/2020 Hospital Encounter Division of [place], Pneumotho rax Pulmonary Medicine Norma Cespedes M.D. Iatrogenic (Primary in [place], [address] [facility] Dx) [place], [place] [address] [facility] [address] [place], [place] [phone] (Work) [phone] Social History Tobacco Use Types Packs/Day Years [...] as directed for 1 each 0 2020 [facility] diabetes control. blood-glucose meter Test as directed [...] and [facility] [place] [facility]. Patient is a [...] here or locally. Edited by: Aleena Rodrigez, Assistant To The Ceo 01/09/21 9:54 AM CDT documented in this encounter Plan of Treatment Upcoming Encounters Date Type Specialty Care Team Description 04/06/2022 Clinical Communication Admitting/Central Scheduling 04/09/2022 Appointment Pulmonary Medicine Mario Pitt M.D. [address] [place] [address] 05/23/2022 Office Visit Cardiovascular Disease Osman Wesley M.D. [address] [place] [address] documented as of this encounter Visit Diagnoses Diagnosis Pneumothorax Iatrogenic - Primary documented in this encounter
--- OUTSIDE RECORDS SUMMARY | 2022-04-02 19:40 | XMS_ITS | Encounter Summary ---
:1965 Author Organization [facility] Address [address] [place] [address] Care Team Providers Name Role Phone None Reported, Pcp Primary Care Provider Unavailable Encounter Details Date Type Department Care Team Description 01/26/2021 Clinical Communication Department of [facility] Margaux Paris Therapy in [facility] [place] [address] [facility] [address] [place] [phone] Social History Tobacco Use Types Packs/Day Years [...] or slept in a fdc (including now)? Sex Assigned at Date Recorded Male 02/09/2021 2:11 PM CDT documented as of this encounter Plan of Treatment Upcoming Encounters Date Type Specialty Care Team Description 04/06/2022 Clinical Communication Admitting/Central Scheduling 04/09/2022 Appointment Pulmonary Medicine Mario Pitt M.D. 200 [place] [address] 05/23/2022 Office Visit Cardiovascular Disease Osman Wesley M.D. 200 [place] [address] documented as of this encounter Visit Diagnoses Not on filedocumented in this encounter Additional Health Concerns Infection Onset Date Last Indicated Resolved Time COVID19 Pending 01/26/2021 01/26/2021 01/26/2021 12:29 PM CDT COVID19 01/26/2021 01/26/2021 02/15/2021 4:55 AM CDT documented as of this encounter Care Teams Heel Top Lift Splitter Relationship Specialty Start Date End Date None Reported, Pcp PCP - General Family Medicine 01/25/2102/21 documented as of this encounter
--- OUTSIDE RECORDS SUMMARY | 2022-04-02 19:40 | XMS_ITS | Encounter Summary ---
:1965 Author Organization [facility] Address [address] [place] [address] Care Team Providers Name Role Phone None [...] More than 4 times per year 02/09/2021 adventist services? Do you belong to any clubs [...] or slept in a long-term (including now)? Sex Assigned at Date Recorded Male 02/09/2021 2:11 PM CDT documented as of this encounter Plan of Treatment Upcoming Encounters Date Type Specialty Care Team Description 04/06/2022 Clinical Communication Admitting/Central Scheduling 04/09/2022 Appointment Pulmonary Medicine Mario Pitt M.D. [address] [place] [address] 05/23/2022 Office Visit Cardiovascular Disease Osman Wesley M.D. [address] [place] [phone] documented as of this encounter Procedures Procedure [...] documented as of this encounter Care Teams Census Clerk Relationship Specialty Start Date End Date None Reported, Pcp PCP - General Family Medicine 01/25/2102/21 documented as of this encounter
--- OUTSIDE RECORDS SUMMARY | 2022-04-02 19:40 | XMS_ITS | Encounter Summary ---
:1965 Author Organization [facility] Address [address] [place] [address] Care Team Providers Name Role Phone None Reported, Pcp Primary Care Provider Unavailable Reason for Visit Reason Comments Patient Education Encounter Details Date Type Department Care Team Description 01/27/2021 Clinical Communication Department of Luciana Bhagat ent Education Infusion Therapy in [place] [place], [place] [address] [place] [address] Social History Tobacco Use Types [...] Appointment Pulmonary Medicine Mario Pitt M.D. 200 [place] [phone] 05/23/2022 Office Visit Cardiovascular Disease Osman Wesley M.D. 200 [place] [phone] documented as of this encounter Visit Diagnoses Not on filedocumented in this encounter Additional Health Concerns Infection Onset Date Last Indicated Resolved Time COVID19 01/26/2021 01/26/2021 02/15/2021 4:55 AM CDT documented as of this encounter Care Teams Card Mounter Relationship Specialty Start Date End Date None Reported, Pcp PCP - General Family Medicine 01/25/2102/21 documented as of this encounter
--- OUTSIDE RECORDS SUMMARY | 2022-04-02 19:40 | XMS_ITS | Encounter Summary ---
:1965 Author Organization [facility] Address [address] [place] [address] Care Team Providers Name Role Phone None Reported, Pcp Primary Care Provider Unavailable Encounter Details Date Type Department Care Team Description 02/07/2021 Hospital Encounter Department of Beata Rodriguez Pleural Laboratory Medicine Zahraa Nieves M.D. and Pathology, [address] [place] [address] in [place], [place] [address] [place] [address] [place], [place] (Work) [address] [phone] Social History Tobacco Use Types Packs/Day Years [...] directed for 1 each 0 2020 [facility] diabetes control. blood-glucose meter Test [...] Pulmonary Medicine Mario Pitt M.D. [address] [place] [phone] 05/23/2022 Office Visit Cardiovascular Disease Osman Wesley M.D. [address] [place] [phone] documented as of this encounter Procedures Procedure [...] 1:35 Venous) PM CDT PM CDT Zahraa D Greg Camacho M.D. LAB BLOOD ADD-ON Performing Organization Address City/State/ZIP Code Phon e Number [facility] - [address] [place] [address] [facility] [place] [address] Laboratories-[facility] 200 [facility] LD (Lactate Dehydrogenase) (02/07/2021 12:42 PM CDT) Analysis Performed At Patho logist Time Signature Lactate 181 122 - 222 02/07/2021 DTL Dehydrogenase U/L 1:54 PM CDT (LD), S Specimen Anatomical Collection Method Collection Time Receive d Time (Source) Location / / Volume Laterality Blood (Blood, 02/07/2021 12:42 02/07/2021 1:35 Venous) PM CDT PM CDT Zahraa Camacho M.D. LAB BLOOD NON ADD-ON Performing Organization Address City/State/ZIP Code Phon e Number [facility] - [address] [place], [place] [address] [facility] [place] [address] Laboratories[facility] [address] documented in this encounter Visit Diagnoses Diagnosis Effusion Pleural documented in this encounter Additional Health Concerns Infection Onset Date Last Indicated Resolved Time COVID19 01/26/2021 01/26/2021 02/15/2021 4:55 AM CDT documented as of this encounter Care Teams Civil Engineering Teacher Relationship Specialty Start Date End Date None Reported, Pcp PCP - General Family Medicine 01/25/2102/21 documented as of this encounter
--- OUTSIDE RECORDS SUMMARY | 2022-04-02 19:40 | XMS_ITS | Encounter Summary ---
:1965 Author Organization [facility] Address [address] [place] [address] Care Team Providers Name Role Phone None Reported, Pcp Primary Care Provider Unavailable Reason for Visit Reason Comments Shortness of Breath Encounter Details Date Type Department Care Team Description 01/25/2021 Emergency [facility] Marielena Castrejon, Shortness Of Breath Emergency Department CIRCULATION DIRECTOR, C.N.P. (Primary Dx) [address] [facility] [address] [place] [phone] (Wo rk) Social History Tobacco Use Types [...] or relatives? How often do you attend pentecostalism or More than 4 times per year 02/09/2021 mosque services? Do you belong to any clubs or Yes 02/09/2021 organizations such as pentecostalism groups, unions, fraternal or athletic groups, or [...] through Care Everywhere. Shortness of Breath Adult Duos-te-Rqlu (Maltese)documented in this encounter Medications at Time of [...] as directed for 1 each 0 2020 [facility] diabetes control. blood-glucose meter Test as directed [...] M.D. - 01/25/2021 11:31 AM CDT ---------Miscellaneous [facility] ED consult Service Note-------- Mr. Mason Fairbanks a chart review was completed. The patient was not seen or evaluated by the [facility] EDConsult Team. Chart review and discussion with Emergency Department provider Marielena Castrejon APRN. Optimization Recommendations: Mr. Fairbanks is a 55 year old gentleman that has been previously evaluated in [place], [place] for dyspnea. He has a history [...] tomorrow. Please let us know if [facility] is able to assist in any other way. -----All results and laboratory testing will be followed by the emergency department team. Please ensure results are forwarded to them. We appreciate the collaborative care with the [facility] ED in the management of Mr. Mason Fairbanks. If any questions or concerns, feel free to page [phone] [facility] ED Consult Team between the hours of 7a-4p. Addendum: The patient had a COVID swab 01/26 in preparation for his pulm appointment 01/27. The patient has a known covid + diagnosis from [place], [place] on 01/06/21. He is past his isolation period. However, his COVID swab on 01/26 returned positive. [place] team received a call that his pulmonary appointment was moved to March 31 due to the covid positive test even though it is not a new diagnosis. We are waiting to hear from medical attendant to see if appointment can be expedited. [...] (HCC) Hypertension Essential Primary Atherosclerotic Heart Disease [place] Coronary Artery With Other Forms Angina Pectoris (Stable Angina/Angina Of Exertion) (HCC) Pneumothorax Unspecified Who presents to the emergency department with shortness of breath and chest burning. Patient has a extensive recent medical history. He did receive cardiac stents in 2019. He was having shortness of breath and chest discomfort in November and was driving from [place] to the [facility] when he developed increased respiratory distress. Patient's [...] reports since he has been home in [place] he has required supplemental oxygen at night. He continues to have coughing to. He was diagnosed with COVID 3 weeks ago and given the antibodies. On Saturday he developed a fever, body aches, vomiting and could not eat. He presents back to the emergency department because he does not trust the doctors at [place]. His chief complaints are chest burning that is been ongoing since he left [facility] in November. Constant coughing with intermittent sputum that is green to clear in color. He has no appetite. He continues to need supplemental oxygen at night which is frustrating to the patient. He has not had a fever since Saturday. Intermittent nausea but no vomiting since Saturday. No abdominal discomfort. He has had diarrhea since leaving hit [facility] in November. But no bloody stool s [...] Pulmonary Medicine Mario Pitt M.D. [address] [place] [address] 05/23/2022 Office Visit Cardiovascular Disease Osman Wesley M.D. [address] [place] [address] documented as of this encounter Procedures Procedure [...] 2H/6H, 5th Gen (01/25/2021 11:57 AM CDT) [facility] Method Time Signature Troponin T, 2 [...] Venous) AM CDT 12:03 PM CDT Narrative [facility] - 01/25/2021 12:26 PM CDT Specimen Information: Specimen ID: [id number] Specimen Type: Blood Specimen Collection Start Date: 01/26/20 11:57 AM Specimen Received Date: 01/25/2021 12:03 PM Specimen ID: [id number] Specimen Type: Blood Marielena Castrejon APRN C.N.PLisa LAB BLOOD TROPONIN Performing Organization Address City/State/ZIP Code Phon e Number [facility] [address] [place], [place] [address] [place] [address] [facility] [address] DX Chest AP [...] Address City/State/ZIP Code Phon e Number POC [facility] [address] [place] [address] [facility] [place] [address] [place] [facility] [address] Lactate, POCT (01/25/2021 9:35 AM CDT) Analysis Performed At Patho logist Time Signature Lactate, POCT Collected DEFAULT 01/25/2021 SMLX 9:35 AM CDT Specimen Anatomical Collection Method Collection Time Receive d Time (Source) Location / / Volume Laterality Blood (Blood, 01/25/2021 9:35 AM 01/26/20 9:35 Venous) CDT AM CDT Colt Schneider APRN.N.P. LAB POCT ORDERABLES - D EVROBERT Performing Organization Address [facility] Phon e Number [facility] - [address] [place], [place] [address] [place] [address] Laboratories-[address] Venous Blood Gas and Electrolytes, POCT (01/25/2021 9:35 AM CDT) Analysis Performed At Patho logist Time Signature ABG and Lytes, Collected DEFAULT 01/25/2021 SMLX POCT, B 9:35 AM CDT Specimen Anatomical Collection Method Collection Time Receive d Time (Source) Location / / Volume Laterality Blood (Other, 01/25/2021 9:35 AM 01/26/20 9:35 Specify in CDT AM CDT Comments) Colt Schneider APRN.N.P. LAB POCT ORDERABLES - D CARLOS A Performing Organization Address City/[facility] Code Phon e Number [facility] - [address] [place], [place] [address] [place], [place] [id number] [place] [address] (ABNORMAL) Venous Blood Gas and Electrolytes CG8+, [...] B 21 Not Applicable mm Hg 01/26/20 21 9:47 AM CDT PCSM Comment: ----ADDITIONAL INFORMATION---- [...] City/State/ZIP Code Phon e Number POC RST [facility] INPATIENT [address] [place], [place] [address] LABS PCSM [facility] [place] [address] [place] [facility] [address] Magnesium (01/25/2021 9:31 AM CDT) athologist Signature Magnesium, S 1.8 1.7 - 2.3 01/25/2021 DTL mg/dL 10:40 AM CDT Specimen Anatomical Collection Method Collection Time Receive d Time (Source) Location / / Volume Laterality Blood (Blood, 01/25/2021 9:31 AM 01/26/20 21 Venous) CDT 10:06 AM CDT Colt Schneider APRN.N.P. LAB BLOOD ADD-ON Performing Organization Address City/[facility] Phon e Number [facility] - [address] [place], [place] [address] [facility] [place] [address] Laboratories-[address] Troponin T, Baseline, 5th gen (01/25/2021 9:31 AM CDT) athologist Signature Troponin T, 15 <=15 ng/L 01/25/2021 [facility] Baseline, 5th 10:02 AM CDT gen Specimen Anatomical Collection Method Collection Time Receive d Time (Source) Location / / Volume Laterality Blood (Blood, 01/25/2021 9:31 AM 01/26/20 21 9:44 Venous) CDT AM CDT Marielena Castrejon APRN, Colt.N.P. LAB BLOOD TROPONIN Performing Organization Address City/[facility] Phon e Number [facility] - [address] [place], [place] [address] [address] [facility] [place] [address] Laboratories-[address] (ABNORMAL) Prothrombin Time (PT) (01/25/2021 9:31 AM CDT) [facility] gist Method Time Signature Prothrombin 12.6 (H) 9.4 - 12.5 01/25/2021 [facility] Time, P sec 9:51 AM CDT INR 1.1 0.9 - 1.1 01/25/2021 [facility] 9[facility]51 AM CDT Comment: ----ADDITIONAL INFORMATION---- Standard intensity warfarin therapeutic range: 2.0 to 3.0 ?? High intensity warfarin therapeutic rang e: 2.5 to 3.5 Specimen Anatomical Collection Method Collection Time Receive d Time (Source) Location / / Volume Laterality Blood (Blood, 01/25/2021 9:31 AM 01/26/20 9:44 Venous) CDT AM CDT Rachel Schneider APRNNLisaPLisa LAB BLOOD ADD-ON Performing Organization Address City/State/ZIP Code Phon e Number [facility] - [address] [place], [place] [address] [place] [address] Laboratories-[address] (ABNORMAL) NT-Pro B-Type Natriuretic Peptide (BNP) (01/25/2021 9:31 AM CDT) athologist Signature NT-Pro BNP 445 (H) 5 - 67 01/25/2021 [facility] pg/mL 10:14 AM CDT Comment: NT-proBNP values [...] AM 01/26/20 9:44 Venous) CDT AM CDT Rachel Schneider APRNN.P. LAB BLOOD ADD-ON Performing Organization Address City/State/ZIP Code Phon e Number [facility] - [address] [place], [place] [address] [place] [address] Laboratories-[address] Lipase (01/25/2021 9:31 AM CDT) P athologist Signature Lipase, S 53 13 - 60 U/L 01/25/2021 DTL 10:40 AM CDT Specimen Anatomical Collection Method Collection Time Receive d Time (Source) Location / / Volume Laterality Blood (Blood, 01/25/2021 9:31 AM 01/26/20 Venous) CDT 10:06 AM CDT Rachel Schneider APRNN.P. LAB BLOOD ADD-ON Performing Organization Address City/[facility] Phon e Number [facility] - [address] [place], [place] [address] [place] [id number] [place] [address] Hepatic Function Panel (01/25/2021 9:31 AM CDT) [facility] Grad[facility] Method Time Signature Bilirubin, Total, S 0.5 [...] 01/26/20 21 Venous) CDT 10:06 AM CDT Rachel Schneider APRNN.P. LAB BLOOD ADD-ON Performing Organization Address City/[facility] Code Phon e Number [facility] - [address] [place], [place] [address] [place] [address] Laboratories-[address] (ABNORMAL) CBC with Differential, Blood (01/25/2021 9:31 AM CDT) [facility] Method Time Signature Hemoglobin 12.3 (L) 13.2 [...] 01/26/20 21 9:44 Venous) CDT AM CDT Marielena Castrejon APRN, C.N.P. LAB BLOOD ADD-ON Performing Organization Address City/State/ZIP Code Phon e Number [facility] - [address] [place], [place] [address] [place] [address] [facility] [address] [facility] Basic Metabolic Panel (01/25/2021 9:31 AM CDT) P athologist Signature Potassium, P 4.2 3.6 - [...] - 140 mg/dL 01/25/2021 10:01 AM CDT ST[facility] Specimen Anatomical Collection Method Collection Time Receive d Time (Source) Location / / Volume Laterality Blood (Blood, 01/25/2021 9:31 AM 01/26/20 9:44 Venous) CDT AM CDT Marielena Castrejon APRN, C.N.P. LAB BLOOD ADD-ON Performing Organization Address City/State/ZIP Code Phon e Number [facility] - [address] [place], [place] [address] [place] [address] [facility] [address] (ABNORMAL) Hemoglobin A1c [...] Laterality Blood (Blood, 01/25/2021 9:24 AM 01/26/20 21 Venous) CDT 10:16 AM CDT Marielena Castrejon APRN, C.N.P. LAB BLOOD ADD-ON Performing Organization Address City/[facility] Phon e Number [facility] - [address] [place], [place] [address] [facility] [place] [address] [facility] 200 [facility] ECG 12 Lead (01/25/2021 9:03 AM CDT) P athologist Signature Ventricular Rate 100 BPM MUSE ECG/Min NM Interval 138 ms MUSE QRSD Interval 90 ms MUSE QT Interval 354 ms MUSE QTC Interval 456 ms MUSE P [place] 47 degrees MUSE R [place] 48 degrees MUSE T Wave [place] 46 degrees MUSE Specimen Anatomical Collection Method [...] longer present Reviewed by DEBBY Hess Marielena Castrejon APRN, C.N.P. ECG ORDERABLES Performing Organization Address City/[facility]/ZIP Code Phon e Number MUSE MUSE NA documented in this encounter Visit Diagnoses Diagnosis Shortness Of Breath - Primary documented in this encounter Care Teams Duplicating Machine Operator Relationship Specialty Start Date End Date None Reported, Pcp PCP - General Family Medicine 01/25/2102/21 documented as of this encounter
--- OUTSIDE RECORDS SUMMARY | 2022-04-02 19:40 | XMS_ITS | Encounter Summary ---
:1965 Author Organization [facility] Address [address] [place] [address] Care Team Providers Name Role Phone None Reported, Pcp Primary Care Provider Unavailable Reason for Referral Outpatient (Routine) - Closed Specialty Diagnoses / Procedures Referred By Contact Refer red To Contact Diagnoses Pneumothorax Unspecified Hypertension Essential Primary Atherosclerotic Heart Disease Torres Martinez Coronary Artery With Other Forms Angina Pectoris (Stable Angina/Angina Of Exertion) (HCC) Diabetes Mellitus Type 2 Hyperglycemia (HCC) [facility]) Colt SMALL.N.Roger., M.S.N. Procedures Echo Transthoracic (TTE) [address] [place], [place] [address] Referral ID Status Reason Start Date Expiration Date Visits Requ ested Visits Authorized [id number] Closed 02/03/2021 02/03/2022 1 1 Reason for Visit Outpatient (Routine) - Closed Specialty Diagnoses / Procedures Referred By Contact Refer red To Contact Diagnoses Pneumothorax Unspecified Hypertension Essential Primary Atherosclerotic Heart Disease Torres Martinez Coronary Artery With Other Forms Angina Pectoris (Stable Angina/Angina Of Exertion) ([facility]) Diabetes Mellitus Type 2 Hyperglycemia (HCC) [facility] Failure Heart (HCC) Colt SMALL.N.P., M.S.N. Procedures Echo Transthoracic (TTE) [address] [place] [address] Referral ID Status Reason Start Date Expiration Date Visits Requ ested Visits Authorized [id number] Closed 02/03/2021 02/03/2022 1 1 Encounter Details Date Type Department Care Team Description 02/07/2021 Hospital Department of Michele Summer U nspecified; Encounter Cardiovascular Erica S, Hypertension Essential Primary; Diseases in DIE TROUBLE SHOOTER, C.N.P., Atheroscleroti c Heart Disease Torres Martinez Coronary Artery With Other Forms Angina Pectoris (Stable Angina/Angina Of Exertion) ([facility]); [place], [place] M.S.N. Diabetes Mellitus Type 2 Hyperglycemia ( [facility]); [address] Failure Heart ([facility]) [place] [address] [phone] Social History Tobacco Use Types Packs/Day Years [...] Appointment Pulmonary Medicine Mario Pitt M.D. [address] [place] [address] 05/23/2022 Office Visit Cardiovascular Disease Osman Wesley M.D. [address] [place] [address] documented as of this encounter Procedures Procedure Name Priority Date/Time Associated Diagnosis Comme nts (TTE) 2D LIMITED Routine 02/07/2021 4:24 PM Pneumothorax Resul ts for this WITH COLOR AND CDT Unspecified procedure are in DOPPLER Hypertension Essential the r esults Primary section. Atherosclerotic Heart Disease Torres Martinez Coronary Artery With Other Forms Angina Pectoris [...] was performed but not reported based on campus wellness coordinator's judgment. ??RIGHT VENTRICLE: ??Normal ri ght ventricular [...] effusion. For the complete report, see the [employer] Documents. Narrative 02/07/2021 4:39 PM CDT For the complete report, see the [employer] Documents. Final Impressions 1. Moderate-severely enlarged left [...] was performed but not reported based on campus wellness coordinator's judgment. RIGHT VENTRICLE: Normal right ventricular chamber [...] Unspecified Hypertension Essential Primary Atherosclerotic Heart Disease Torres Martinez Cor onary Artery With Other Forms Angina Pectoris (Stable Angina/Angina Of Exertion) (HCC) Diabetes Mellitus Type 2 Hyperglycemia ( HCC) Failure Heart (HCC) documented in this encounter Additional Health Concerns Infection Onset Date Last Indicated Resolved Time COVID19 01/26/2021 01/26/2021 02/15/2021 4:55 AM CDT documented as of this encounter Care Teams Motion Picture Scene Builder Relationship Specialty Start Date End Date None Reported, Pcp PCP - General Family Medicine 01/25/2102/21 documented as of this encounter
--- OUTSIDE RECORDS SUMMARY | 2022-04-02 19:40 | XMS_ITS | Encounter Summary ---
:1965 Author Organization [facility] Address [address] [place] [address] Care Team Providers Name Role Phone None Reported, Pcp Primary Care Provider Unavailable Reason for Visit Reason Comments Pre-visit Testing Orders Encounter Details Date Type Department Care Team Description 01/25/2021 Clinical Communication RST NADINE Hercules, Pre-visit Testing [address] [facility] Anita Graff Orders [place], [place] [address] [facility] [address] [place] [address] Social History Tobacco Use Types Packs/Day Years [...] Appointment Pulmonary Medicine Mario Pitt M.D. [address] [place] [phone] 05/23/2022 Office Visit Cardiovascular Disease Osman Wesley M.D. [address] [place] [phone] documented as of this encounter Results (ABNORMAL) SARS CoV-2 RNA, PCR, Varies Asymptomatic (01/26/2021 7:08 AM CDT) Patholo gist Method Time Signature SARS CoV-2 Swab, 01/26/2021 DTL RNA, PCR, Nasopharynx 12:29 PM Source CDT SARS CoV-2 Detected (A) Undetected 01/26/2021 DTL RNA, PCR 12:29 PM CDT Comment: SARS-CoV-2 RNA present. ----ADDITIONAL INFORMATION---- This RT-PCR test has received Emergency Use Authorization (EUA) by the U.S. Food and Drug Administration an d is used per yarder engineer's instructions. Performance characteristics were verified by [facility] in a manner consistent with CLIA requirements. Visit the CDC website: https://www.cdc.g ov/coronavirus/ for the most recent guidelines on Coron avirus testing. Fact Sheet for Healthcare Providers: https://www.fda.gov/media/423165/downloa d Fact Sheet for Patients: https://www.fda.gov/media/462536/downloa d Specimen Anatomical Collection Method Collection Time Receive d Time (Source) Location / / Volume Laterality Varies 01/26/2021 7:08 AM 7:44 (Nasopharynx) CDT AM CDT Dajuan Hercules M.D. LAB MICROBIOLOGY - GENERAL O CHARANJIT Performing Organization Address City/State/ZIP Code Phon e Number [facility] - [address] [place], [place] [address] [facility] [place] [address] Laboratories-[facility] [address] documented in this encounter Visit Diagnoses Diagnosis Diabetes Mellitus Type 2 Hyperglycemia ( HCC) - Primary Dyspnea documented in this encounter Care Teams Bell Staff Relationship Specialty Start Date End Date None Reported, Pcp PCP - General Family Medicine 01/25/2102/21 documented as of this encounter
--- OUTSIDE RECORDS SUMMARY | 2022-04-02 19:40 | XMS_ITS | Encounter Summary ---
:1965 Author Organization [facility] Address [address] [place] [address] Care Team Providers Name Role Phone None Reported, Pcp Primary Care Provider Unavailable Encounter Details Date Type Department Care Team Description 01/31/2021 Documentation Division of Pulmonary Greg Camacho, Medicine in [place], Brenden Nieves M.D. [place] [address] [facility] [address] [place] [phone] [phone] (Wo rk) Social History Tobacco Use Types [...] or relatives? How often do you attend catholic or More than 4 times per year 02/09/2021 mormon services? Do you belong to any clubs or Yes 02/09/2021 organizations such as catholic groups, unions, fraternal or athletic groups, [...] slept in a care home (including now)? Sex Assigned at Date [...] - 01/31/2021 5:53 PM CDT Addended by: BRENDEN RODRIGUEZ on: 02/07/2021 11:14 AM Modules accepted: Orders documented in this encounter Plan of Treatment Upcoming Encounters Date Type Specialty Care Team Description 04/06/2022 Clinical Communication Admitting/Central Scheduling 04/09/2022 Appointment Pulmonary Medicine Mario Pitt M.D. [address] [place] [phone] 05/23/2022 Office Visit Cardiovascular Disease Osman Wesley M.D. [address] [place] [phone] documented as of this encounter Results Protein, Total [...] Address City/State/ZIP Code Phon e Number [facility] - [address] [place] [phone] [facility] [place] [address] Laboratories-[facility] 200 [facility] LD (Lactate Dehydrogenase) (02/07/2021 12:42 PM CDT) Analysis Performed At Patho logist Time Signature Lactate 181 122 - 222 02/07/2021 DTL Dehydrogenase U/L 1:54 PM CDT (LD), S Specimen Anatomical Collection Method Collection Time Receive d Time (Source) Location / / Volume Laterality Blood (Blood, 02/07/2021 12:42 02/07/2021 1:35 Venous) PM CDT PM CDT Brenden Lizbeth Camacho M.D. LAB BLOOD NON ADD-ON Performing Organization Address City/State/ZIP Code Phon e Number [facility] - [address] [place], [place] [address] [facility] [place] [address] Laboratories-[facility] [address] documented in this encounter Visit Diagnoses Diagnosis Effusion Pleural - Primary documented in this encounter Additional Health Concerns Infection Onset Date Last Indicated Resolved Time COVID19 01/26/2021 01/26/2021 02/15/2021 4:55 AM CDT documented as of this encounter Care Teams Metal Building Assembler Relationship Specialty Start Date End Date None Reported, Pcp PCP - General Family Medicine 01/25/2102/21 documented as of this encounter
--- OUTSIDE RECORDS SUMMARY | 2022-04-02 19:40 | XMS_ITS | Encounter Summary ---
:1965 Author Organization [facility] Address [address] [place] [address] Care Team Providers Name Role Phone None Reported, Pcp Primary Care Provider Unavailable Reason for Referral Outpatient (Routine) - Closed Specialty Diagnoses / Procedures Referred By Contact Refer red To Contact Diagnoses Pneumothorax Unspecified Hypertension Essential Primary Atherosclerotic Heart Disease [place] Coronary Artery With Other Forms Angina Pectoris (Stable Angina/Angina Of Exertion) (HCC) Diabetes Mellitus Type 2 Hyperglycemia (HCC) [facility] ([facility]) GEOVANNY C.N.P., M.S.N. Procedures ECG 12 Lead [address] [place] [address] Referral ID Status Reason Start Date Expiration Date Visits Requ ested Visits Authorized [id number] Closed 02/03/2021 02/03/2022 1 1 utpatient (Routine) - Closed Specialty Diagnoses / Procedures Referred By Contact Refer red To Contact Diagnoses Pneumothorax Unspecified Hypertension Essential Primary Atherosclerotic Heart Disease [place] Coronary Artery With Other Forms Angina Pectoris (Stable Angina/Angina Of Exertion) (HCC) Diabetes Mellitus Type 2 Hyperglycemia (HCC) [facility] Failure Heart (HCC) Colt SMALL.N.P., M.S.N. Procedures Echo Transthoracic (TTE) [address] [place] [address] Referral ID Status Reason Start Date Expiration Date Visits Requ ested Visits Authorized [id number] Closed 02/03/2021 02/03/2022 1 1 Reason for Visit Reason Comments Triage Encounter Details Date Type Department Care Team Description 01/27/2021 Clinical Communication Department of Lens Assorter, [facility] Cardiovascular Medicine Anita Francisco in [facility] [address] [place] [address] Social History Tobacco Use Types Packs/Day [...] Pulmonary Medicine Mario Pitt M.D. [address] [place] [address] 05/23/2022 Office Visit Cardiovascular Disease Osman Wesley M.D. [address] [place] [address] documented as of this encounter Results (ABNORMAL) NT-Pro B-Type Natriuretic Peptide (BNP) (02/09/2021 8:17 AM CDT) P athologist Signature NT-Pro BNP 1515 (H) <=67 [...] Organization Address City/State/ZIP Code Phon e Number [facility] - [address] [place], [place] [address] [facility] [place] [address] Laboratories-[facility] [address] (ABNORMAL) Lipid Panel (02/09/2021 8:17 AM [...] Organization Address City/State/ZIP Code Phon e Number [facility] - [address] [place] [phone] [facility] [place] [address] Laboratories-[facility] 200 [facility] [place] Basic Metabolic Panel (02/09/2021 8:17 AM CDT) [...] 02/09/2021 DTL Black/ mL/min/BSA 9:53 AM CDT Syrian Comment: ----ADDITIONAL INFORMATION---- Estimated GFR calculated using [...] Organization Address City/State/ZIP Code Phon e Number [facility] - [address] [place] [address] [facility] [place] [address] Laboratories-[facility] [address] [facility] (ABNORMAL) CBC with Differential, Blood (02/09/2021 8:17 AM CDT) [facility] Method Time Signature Hemoglobin 13.1 (L) 13.2 [...] LAB BLOOD ADD- ON Performing Organization Address City/[facility] Phon e Number [facility] - [address] [place], [place] [address] [facility] [place] [address] Laboratories-[facility] 200 [facility] [place] ECG 12 Lead (02/09/2021 7:56 AM CDT) P athologist Signature Ventricular Rate 73 BPM MUSE ECG/Min PA Interval 154 ms MUSE QRSD Interval 90 ms MUSE QT Interval 406 ms MUSE QTC Interval 447 ms MUSE P [place] 28 degrees MUSE R [place] 55 degrees MUSE T Wave [place] 56 degrees MUSE Specimen Anatomical Collection Method [...] C.N.P., M.S.N. ECG ORDERABLES Performing Organization Address City/[facility]/ZIP Code Phon e Number MUSE MUSE NA (TTE) [...] was performed but not reported based on airplane electrical repairer's judgment. ??RIGHT VENTRICLE: ??Normal ri ght ventricular [...] effusion. For the complete report, see the [email or web address] Documents. Narrative 02/07/2021 4:39 PM CDT For the complete report, see the [email or web address] Documents. Final Impressions 1. Moderate-severely enlarged left [...] original. For the complete report, see the [email or web address] Documents. Final Impressions 1. Moderate-severely enlarged left [...] was performed but not reported based on airplane electrical repairer's judgment. RIGHT VENTRICLE: Normal right ventricular chamber [...] Unspecified Hypertension Essential Primary Atherosclerotic Heart Disease [place] Cor onary Artery With Other Forms Angina Pectoris (Stable Angina/Angina Of Exertion) (HCC) Diabetes Mellitus Type 2 Hyperglycemia ( HCC) Pneumothorax Unspecified Hypertension Essential Primary Atherosclerotic Heart Disease [place] Cor onary Artery With Other Forms Angina Pectoris (Stable Angina/Angina Of Exertion) (HCC) Diabetes Mellitus Type 2 Hyperglycemia ( HCC) Failure Heart (HCC) documented in this encounter Additional Health Concerns Infection Onset Date Last Indicated Resolved Time COVID19 01/26/2021 01/26/2021 02/15/2021 4:55 AM CDT documented as of this encounter Care Teams Communications Equipment Operator Relationship Specialty Start Date End Date None Reported, Pcp PCP - General Family Medicine 01/25/2102/21 documented as of this encounter
--- OUTSIDE RECORDS SUMMARY | 2022-04-02 19:40 | XMS_ITS | Encounter Summary ---
:1965 Author Organization [facility] Address [address] [place] [address] Care Team Providers Name Role Phone None Reported, Pcp Primary Care Provider Unavailable Reason for Referral MRI/CAT/PET Scan (Routine) - Closed Specialty Diagnoses / Procedures Referred By Contact Refer red To Contact Radiology Diagnoses Dyspnea Multifactorial Effusion Pleural Garzaulysses Camacho [facility] Procedures CT Chest with IV Contrast CT Chest without IV Contrast Anita Nieves [address] [place] [address] Referral ID Status Reason Start Date Expiration Date Visits Requ ested Visits Authorized [id number] Closed 01/27/2021 01/27/2022 1 1 Reason for Visit MRI/CAT/PET Scan (Routine) - Closed Specialty Diagnoses / Procedures Referred By Contact Refer red To Contact Radiology Diagnoses Dyspnea Multifactorial Effusion Pleural Greg Camacho [facility] Procedures CT Chest with IV Contrast CT Chest without IV Contrast Anita Nieves [address] [place] [address] Referral ID Status Reason Start Date Expiration Date Visits Requ ested Visits Authorized [id number] Closed 01/27/2021 01/27/2022 1 1 Encounter Details Date Type Department Care Team Description 01/29/2021 Hospital Encounter Department of Amelia Rodriguez pnea Multifactorial; Radiology, Daniel Tran Effusion Pleural Building, in 200 [facility] [address] [place], [place] (Work) [phone] [phone] Social History Tobacco Use Types Packs/Day Years [...] or relatives? How often do you attend episcopalian or More than 4 times per year 02/09/2021 jew services? Do you belong to any clubs or Yes 02/09/2021 organizations such as episcopalian groups, unions, fraternal or athletic groups, or [...] as directed for 1 each 0 2020 [facility] diabetes control. blood-glucose [...] Pulmonary Medicine Mario Pitt M.D. [address] [place] [address] 05/23/2022 Office Visit Cardiovascular Disease Osman Wesley M.D. [address] [place] [address] documented as of this encounter Procedures Procedure [...] EXAM: CT CHEST WITH IV CONTRAST COMPARISON: [facility] examination from 11/28/2020. FINDINGS: In [...] EXAM: CT CHEST WITH IV CONTRAST COMPARISON: [facility] examination from 11/28/2020. FINDINGS: In [...] documented as of this encounter Care Teams Steward/Stewardess Economy Class Relationship Specialty Start Date End Date None Reported, Pcp PCP - General Family Medicine 01/25/2102/21 documented as of this encounter
--- OUTSIDE RECORDS SUMMARY | 2022-04-02 19:40 | XMS_ITS | Encounter Summary ---
:[address] [facility] Address [address] [place] [address] Care Team Providers Name Role Phone None Reported, Pcp Primary Care Provider Unavailable Reason for Referral Outpatient (Routine) - Closed Specialty Diagnoses / Procedures Referred By Contact Refer red To Contact Diagnoses Effusion Pleural Zahraa Rodriguez [facility] Procedures Thoracentesis Anita Nieves 200 [place], [place] [phone] Referral ID Status Reason Start Date Expiration Date Visits Requ ested Visits Authorized [id number] Closed 01/31/2021 01/31/2022 1 1 Reason for Visit Outpatient (Routine) - Closed Specialty Diagnoses / Procedures Referred By Contact Refer red To Contact Diagnoses [facility]usion [facility]ural [facility] Thor[facility]esis Anita Nieves [place], [place] [address] Referral ID Status Reason Start Date Expiration Date Visits Requ ested Visits Authorized [id number] Closed 01/31/2021 01/31/2022 1 1 Encounter Details Date Type Department Care Team Description 02/06/2021 Hospital Encounter Division of Pulmonary Isidro Laurent , Effusion Pleural Medicine in [facility] 200 [facility] [address] [place] [phone] Social History Tobacco Use Types Packs/Day Years [...] slept in a senior care (including now)? Sex Assigned at Date Recorded [...] position: sitting Location: left posterior Puncture method: hnxq-rmm-zgavyw catheter Number of attempts: 1 Drainage characteristics: [...] needle was removed and a 5.0 Fr [place] [place] catheter was advanced along the anesthetized track [...] or fellow participated in the procedure. The immigration consultant was present for the critical portion of the procedure and was immediately available for the entire procedure. documented in this encounter Plan of Treatment Upcoming Encounters Date Type Specialty Care Team Description 04/06/2022 Clinical Communication Admitting/Central Scheduling 04/09/2022 Appointment Pulmonary Medicine Mario Pitt M.D. [address] [place] [address] 05/23/2022 Office Visit Cardiovascular Disease Wesley, Osman L, M.D. [address] [place] [address] Scheduled Orders Name Type Priority Associated Diagnoses [...] position: sitting Location: left posterior Puncture method: uwqa-bzf-myvnbh cathete r Number of attempts: 1 Drainage [...] or fellow participated in the procedure. The immigration consultant was present for the critical portion [...] ical findings. All other fluids refer to [email or web address] for further inter pretive information. This test has been modified from the hem marker's instructions. Its perform ance characteristics were determined by [facility] in a manner consistent with CLIA require [...] [facility] [address] [place], [place] [address] [facility] [place] [address] Laboratories-[facility] [address] [facility] Lactate Dehydrogenase (LD), Body Fluid (02/06/2021 2:59 PM CDT) [facility] Method Time Signature Lactate 298 See Comment [...] clinical findings. All other fluids refer to [email or web address] for further interpretive information. This test has been modified from the man ufacturer's instructions. Its performance characteristics were det ermined by [facility] in a manner consistent with CLIA requirements [...] 3:53 Fluid, Left) CDT PM CDT Zahraa Camacho M.D. LAB BODY FLUIDS AND S TOOLS ORDERABLES Performing Organization Address City/[facility] Code Phon e Number [facility] - 200 [place], [place] [address] [place] [address] [place], [place] [phone] [place] [address] Gram Stain (02/06/2021 2:59 PM CDT) Patholo gist Method Time Signature Gram Stain No organisms seen. 02/06/2021 DTL White blood cells, Moderate. 6:12 PM CDT Specimen Anatomical Collection Method Collection Time Receive d Time (Source) Location / / Volume Laterality Fluid (Pleural 02/06/2021 2:59 PM 021 4:16 Fluid, Left) CDT PM CDT Comment: Specimen Source Site: Fluid Narrative [facility] - 02/06/2021 6:12 PM CDT Bacterial Culture: Received Bactec anaerobic bottle Bacterial Culture: Placed in Bactec aero bic bottle Zahraa Camacho M.D. LAB MICROBIOLOGY - GE NERAL ORDERABLES Performing Organization Address City/[facility] Phon e Number [facility] - [address] [place], [place] [address] [facility] [place] [address] Glucose, Body Fluid (02/06/2021 2:59 PM CDT) [...] of infection. All other fluids refer to [email or web address].[email or web address] for further inter pretive information. This test has been modified from the [facility] hospital[facility]'s instructions. Its performance characteri stics were determined by [facility] in a manner co nsistent with CLIA [...] 3:53 Fluid, Left) CDT PM CDT Zahraa D Greg Camacho M.D. LAB BODY FLUIDS AND S TOOLS ORDERABLES Performing Organization Address City/State/ZIP Code Phon e Number [facility] - [address] [place] [address] [facility] [place] [address] [address] Cell Count and Differential, Body Fluid (02/06/2021 2:59 PM CDT) [facility] gist Method Time Signature Fluid Type Left Pleural 02/06/2021 DHPM 4:23 PM CDT Gross Slightly 02/06/2021 DHPM Appearance bloody 4:23 PM CDT Total 3680 /mcL 02/06/2021 DHPM Nucleated 4:23 PM CDT Cells Comment: ----REFERENCE VALUE---- Synovial: <150 /mcL Peritoneal: <500 /mcL Pleural: <500 /mcL Pericardial: <500 /mcL ----ADDITIONAL INFORMATION---- This test has been modified from the [place] [employer] Corporation[employer]urer's instructions. Its performance characteri stics were determined by [facility] in a manner co nsistent with CLIA requirements. This test has not bee n cleared or approved by the U.S. Food and Drug Admin istration. Neutrophils 2 % 02/06/2021 5:20 PM CDT [facility] Comment: ----REFERENCE VALUE---- Synovial: <25% Peritoneal: <25% [...] Cells 3 % 02/06/2021 5:20 PM CDT [facility] Comment: ----REFERENCE VALUE---- The reference range and other method performance specifications have not been established for this bodyfluid. The test result must be integrated into the clinical context for interpretation. Other Cells Are: Mesothelial cells 02/07/2021 8:36 AM CDT PM Comment No blasts or malignant cells seen. 02/07 8:36 AM CDT PM Reviewed by: Chrissy 02/07/2021 8:36 AM CDT [facility] Specimen Anatomical Collection Method Collection Time Receive d Time (Source) Location / / Volume Laterality Fluid (Pleural 02/06/2021 2:59 PM 021 3:49 Fluid, Left) CDT PM CDT Zahraa D Greg Camacho M.D. LAB BODY FLUIDS AND S TOOLS ORDERABLES Performing Organization Address City/State/ZIP Code Phon e Number [facility] - [address] [place], [place] [address] [place] [address] Laboratories-[facility] [address] Bacterial Culture, Aerobic + Susc (02/06/2021 2:59 PM CDT) [facility]ist Method Time Signature Bacterial No growth 02/11/2021 DTL Culture, after 5 2:26 PM CDT Aerobic + Susc days of incubation. Specimen Anatomical Collection Method Collection Time Receive d Time (Source) Location / / Volume Laterality Fluid (Pleural 02/06/2021 2:59 PM 021 4:16 Fluid, Left) CDT PM CDT Comment: Specimen Source Site: Fluid Narrative [facility] - 02/11/2021 2:26 PM CDT Bacterial Culture: Received Bactec anaerobic bottle Bacterial Culture: Placed in Bactec aero bic bottle Zahraa Camacho M.D. LAB MICROBIOLOGY - GE NERAL ORDERABLES Performing Organization Address City/[facility] Phon e Number [facility] - [address] [place] [address] [facility] [place], [place] [phone] [place] [address] pH, Pleural Fluid (02/06/2021 2:52 PM CDT) [facility] Method Time Signature pH, Pleural 7.38 Not Applicable 02/06/2021 [facility] Fluid pH 3:13 PM CDT Comment: Clinical guidelines suggest that in para pneumonic pleural effusions, a pH <7.2 indicate the need for tube drainage . Specimen Anatomical Collection Method Collection Time Receive d Time (Source) Location / / Volume Laterality Fluid (Pleural 02/06/2021 2:52 PM 021 3:09 Fluid, Left) CDT PM CDT Zahraa Camacho M.D. LAB BODY FLUIDS AND S TOOLS ORDERABLES Performing Organization Address [facility] Phon e Number [facility] - [address] [place] [address] [facility] [place] [address] documented in this encounter Visit Diagnoses Diagnosis Effusion Pleural documented in this encounter Additional Health Concerns Infection Onset Date Last Indicated Resolved Time COVID19 01/26/2021 01/26/2021 02/15/2021 4:55 AM CDT documented as of this encounter Care Teams Eye Surgeon Relationship Specialty Start Date End Date None Reported, Pcp PCP - General Family Medicine 01/25/2102/21 documented as of this encounter
--- OUTSIDE RECORDS SUMMARY | 2022-04-02 19:40 | XMS_ITS | Encounter Summary ---
:[address] [facility] Address [address] [place] [address] Care Team Providers Name Role Phone None Reported, Pcp Primary Care Provider Unavailable Reason for Referral Outpatient (Routine) - Closed Specialty Diagnoses / Procedures Referred By Contact Refer red To Contact Pulmonary Medicine Diagnoses Diabetes Mellitus Type 2 Hyperglycemia (HCC) Dyspnea Multifactorial Dajuan Hercules [facility] Anita [address] [place] [address] Referral ID Status Reason Start Date Expiration Date Visits V isits Requested Authorized [id number] Closed Specialty 01/25/2021 01/25/2022 1 1 Services Required Reason for Visit Reason Comments Pre-visit Testing Orders Encounter Details Date Type Department Care Team Description 01/25/2021 Clinical Communication RST NADINE Hercules, Pre-visit Testing [address] [facility] Anita Graff Orders [place], [place] [address] [facility] [address] [place] [address] Social History Tobacco Use Types Packs/Day Years [...] 02/09/2021 organizations such as catholic groups, unions, fraavandeo or athletic groups, or school groups? How [...] or slept in a longterm (including now)? Sex Assigned at Date Recorded Male 02/09/2021 2:11 PM CDT documented as of this encounter Plan of Treatment Upcoming Encounters Date Type Specialty Care Team Description 04/06/2022 Clinical Communication Admitting/Central Scheduling 04/09/2022 Appointment Pulmonary Medicine Mario Pitt M.D. [address] [place] [address] 05/23/2022 Office Visit Cardiovascular Disease Osman Wesley M.D. [address] [place] [address] Scheduled Referrals Name Type Priority Associated Diagnoses Order S [facility] Pulmonary Medicine Outpatient Referral Routine Diabetes Mellit us Type Expected: - General consult 2 Hyperglycemi a (HCC) 01/25/2021 (clinic) Dyspnea Multifactorial (Appr oximate), Expires: 01/26/2024 documented as of this encounter Visit Diagnoses Diagnosis Diabetes Mellitus Type 2 Hyperglycemia ( HCC) - Primary Dyspnea Multifactorial documented in this encounter Care Teams Insurance Territory Manager Relationship Specialty Start Date End Date None Reported, Pcp PCP - General Family Medicine 01/25/2102/21 documented as of this encounter
--- OUTSIDE RECORDS SUMMARY | 2022-04-02 19:40 | XMS_ITS | Encounter Summary ---
:1965 Author Organization [facility] Address [address] [place] [address] Care Team Providers Name Role Phone Elsewhere, Pcp Primary Care Provider Unavailable Reason for Referral Outpatient (Routine) - Closed Specialty Diagnoses / Procedures Referred By Contact Refer red To Contact Diagnoses Effusion Pleural [facility] Procedures Thoracentesis Anita Nieves [address] [place] [phone] Referral ID Status Reason Start Date Expiration Date Visits Requ ested Visits Authorized [id number] Closed 01/31/2021 01/31/2022 1 1 RI/CAT/PET Scan (Routine) - Closed Specialty Diagnoses / Procedures Referred By Contact Refer red To Contact Radiology Diagnoses Dyspnea Multifactorial Effusion Pleural Garzanoam Camacho [facility] Procedures CT Chest with IV Contrast CT Chest without IV Contrast Anita Nieves [address] [place] [phone] Referral ID Status Reason Start Date Expiration Date Visits Requ ested Visits Authorized [id number] Closed 01/27/2021 01/27/2022 1 1 utpatient (Routine) - Closed Specialty Diagnoses / Procedures Referred By Referred To Contact Contact Cardiovascular Diseases / Diagnoses Diabetes Mellitus Type 2 Hyperglycemia (HCC) Dyspnea Multifactorial Effusion Pleural Greg Camacho [facility] Cardiovascular Disease Brenden Nieves M.D. 200 [place] [address] Referral ID Status Reason Start Date Expiration Date Visits Requ ested Visits Authorized [id number] Closed 01/27/2021 01/27/2022 1 1 Reason for Visit Outpatient (Routine) - Closed Specialty Diagnoses / Procedures Referred By Contact Refer red To Contact Pulmonary Medicine Diagnoses Diabetes Mellitus Type 2 Hyperglycemia (HCC) Dyspnea Multifactorial [facility] Anita 200 [place] [address] Referral ID Status Reason Start Date Expiration Date Visits V isits Requested Authorized [id number] Closed Specialty 01/25/2021 01/25/2022 1 1 Services Required Encounter Details Date Type Department Care Team Description 01/27/2021 Comprehensive Visit Division of Greg Effusion Pleural (Primary Dx); Pulmonary Medicine Doug, Diabetes Mellitus Type 2 Hyperglycemia (HCC); in [place], Brenden Nieves, Dyspnea Multif actorial [place] Anita 200 [facility] 200 [place] [phone] Social History Tobacco Use Types Packs/Day Years [...] He want to a physician back in [place] and he was offered a thoracentesis,which he [...] a week ago, where he had fevers [id number] degrees, nausea, and pain all over his [...] 5 years . He worked in the [employer] and has no occupational exposures except for [...] reviewed the case in detail with the barge hand. I agree with her plan. Briefly, this is a very complex situation. The patient was recently admitted to [facility] after he presented in our emergency room [...] was eventually successfully removed. While hospitalized at [place] the patient was tested negative for COVID-19 including negative PCR negative antibody testing. When he was discharged she was starting to feel better. He continued to have some left-sided burningchest pain. However all of this was getting better. He subsequently developed significant systemic symptoms and fevers. This was after he returned back to [place]. His repeat evaluation demonstrated positivity for COVID-19 [...] had fevers. This prompted his return to [facility]. He was originally seen in the emergency [...] Appointment Pulmonary Medicine Mario Pitt M.D. 200 [place] [address] 05/23/2022 Office Visit Cardiovascular Disease Osman Wesley M.D. 200 [place] [address] Scheduled Orders Name Type Priority Associated Diagnoses Order S chedule Thoracentesis Procedures Routine Effusion Pleural Expected: 02/06/2021 (Approximate), Expires: 02/01/2024 Scheduled Referrals Name Type Priority Associated Diagnoses Order S chedule Cardiovascular Disease Outpatient Routine Diabetes Mellitus Expected: - General cardiology Referral Type 2 Hyperglycemia 01/27/2021 consult (clinic) ([facility]) (Approximate), Dyspnea Expires: Multifactorial 01/28/2024 Effusion Pleural documented as of this encounter Procedures Procedure Name Priority Date/Time Associated Diagnosis Comme nts CYTOLOGY NON-RAG WILLOW OPERATOR Routine 02/06/2021 5:34 PM Effusion Pleural R esults for this CDT procedure are i n the results section. documented in this encounter Results Cytology Non-RAG WILLOW OPERATOR (02/06/2021 5:34 PM CDT) Component Value Ref Test [facility] gist Range Method Time Signature 02/09/2021 DTL 11:30 AM CDT Report Carroll Ramirez.B.S. [id number] 02/09/2021 DTL electronically 11:30 AM signed by [...] Organization Address City/State/ZIP Code Phon e Number [facility] - [address] [place], [place] [address] [facility] [place] [address] Laboratories-[facility] [address] Chest with IV Contrast (01/29/2021 10:06 [...] EXAM: CT CHEST WITH IV CONTRAST COMPARISON: [facility] examination from 11/28/2020. FINDINGS: In [...] EXAM: CT CHEST WITH IV CONTRAST COMPARISON: [facility] examination from 11/28/2020. FINDINGS: In [...] probabl e parenchymal hemorrhage. Brenden Camacho M.D. IMG CT PROCEDURES documented in this encounter Visit Diagnoses Diagnosis Effusion Pleural - Primary Diabetes Mellitus Type 2 Hyperglycemia ( HCC) Dyspnea Multifactorial Dyspnea Multifactorial Effusion Pleural documented in this encounter Additional Health Concerns Infection Onset Date Last Indicated Resolved Time COVID19 01/26/2021 01/26/2021 02/15/2021 4:55 AM CDT documented as of this encounter Care Teams Agricultural Scientist Relationship Specialty Start Date End Date Elsewhere, Pcp PCP - General 02/22/21 documented as of this encounter
--- OUTSIDE RECORDS SUMMARY | 2022-04-02 19:40 | XMS_ITS | Encounter Summary ---
:1965 Author Organization [facility] Address [address] [place] [address] Care Team Providers Name Role Phone None Reported, Pcp Primary Care Provider Unavailable Reason for Visit Reason Comments Communication Encounter Details Date Type Department Care Team Description 02/02/2021 Clinical Communication Division of [facility] Kandis Mae Internal Medicine, Phuong Hawley M.D [place], [place] [address] [place] [address] [place] [address] [place], [place] [phone] (Work) [phone] Social History Tobacco Use Types Packs/Day Years [...] More than 4 times per year 02/09/2021 hindu services? Do you belong to any clubs [...] AM CDT Caller: Anais (pharmacist) Callback Number: [phone] Request/Details: [facility] faxed a CMN for you to fill out and return for this patient's test strips. Please call the pharmacy with any questions. Thank you. documented in this encounter Plan of Treatment Upcoming Encounters Date Type Specialty Care Team Description 04/06/2022 Clinical Communication Admitting/Central Scheduling 04/09/2022 Appointment Pulmonary Medicine Mario Pitt M.D. [address] [place] [address] 05/23/2022 Office Visit Cardiovascular Disease Osman Wesley M.D. [address] [place] [address] documented as of this encounter Visit Diagnoses Not on filedocumented in this encounter Additional Health Concerns Infection Onset Date Last Indicated Resolved Time COVID19 01/26/2021 01/26/2021 02/15/2021 4:55 AM CDT documented as of this encounter Care Teams Travel Specialist Relationship Specialty Start Date End Date None Reported, Pcp PCP - General Family Medicine 01/25/2102/21 documented as of this encounter
--- OUTSIDE RECORDS SUMMARY | 2022-04-02 19:40 | XMS_ITS | Encounter Summary ---
:1965 Author Organization [facility] Address [address] [place] [address] Care Team Providers Name Role Phone None Reported, Pcp Primary Care Provider Unavailable Encounter Details Date Type Department Care Team Description 01/26/2021 Lab Department of Laboratory Dajuan Hercules , Diabetes Mellitus Type 2 Hyperglycemia (HCC); Medicine and Pathology, MKeven [facility], in [address] [place] [address] [place] [phone] [place] [address] [phone] Social History Tobacco Use Types Packs/Day Years [...] or relatives? How often do you attend sikh or More than 4 times per year 02/09/2021 baptist services? Do you belong to any clubs or Yes 02/09/2021 organizations such as sikh groups, unions, fraternal or athletic groups, or [...] Patient Monitoring (MASS 3 or greater). The [facility] ([facility]) sends general guidance about COVID-19 to all patients by letter or portal, except when a patient is hospitalized or resides in a senior living. [facility] will call all adult patients at highest risk for severe complications of COVID-19 (MASS 3 or greater), those without an online services account, and those who require an staff interpreter. Any patient with a MASS score 1 [...] for symptom management. For questions, contact the [facility] ([facility]): Pager: [phone] In basket: P RST/[facility] COVID-19 POSITIVE Covid [...] to obtain the result by calling the [employer] result line or by checking the online services account. documented in this encounter Plan of Treatment Upcoming Encounters Date Type Specialty Care Team Description 04/06/2022 Clinical Communication Admitting/Central Scheduling 04/09/2022 Appointment Pulmonary Medicine Mario Pitt M.D. 200 [place] [phone] 05/23/2022 Office Visit Cardiovascular Disease Osman Wesley M.D. [address] [place] [phone] documented as of this encounter Procedures Procedure Name Priority Date/Time Associated Diagnosis Comme nts SARS COV-2 RNA, Routine 01/26/2021 7:08 AM Diabetes Mellitus T ype Results for this PCR, VARIES CDT 2 Hyperglycemia (HCC) procedure are in Dyspnea the results section. documented in this encounter Results (ABNORMAL) SARS CoV-2 RNA, PCR, Varies Asymptomatic (01/26/2021 7:08 AM CDT) [facility] Method Time Signature SARS CoV-2 Swab, 01/26/2021 DTL RNA, PCR, Nasopharynx 12:29 PM Source CDT SARS CoV-2 Detected (A) Undetected 01/26/2021 DTL RNA, PCR 12:29 PM CDT Comment: SARS-CoV-2 RNA present. ----ADDITIONAL INFORMATION---- This RT-PCR test has received Emergency Use Authorization (EUA) by the U.S. Food and Drug Administration an d is used per heel sewer's instructions. Performance characteristics were verified by [facility] in a manner consistent with CLIA requirements. Visit the CDC website: https://www.cdc.g ov/coronavirus/ for the most recent guidelines on Coron avirus testing. Fact Sheet for Healthcare Providers: https://www.fda.gov/media/156490/downloa d Fact Sheet for Patients: https://www.fda.gov/media/119855/downloa d Specimen Anatomical Collection Method Collection Time Receive d Time (Source) Location / / Volume Laterality Varies 01/26/2021 7:08 AM 7:44 (Nasopharynx) CDT AM CDT Dajuan Hercules M.D. LAB MICROBIOLOGY - GENERAL O RDERABLES Performing Organization Address City/State/ZIP Code Phon e Number [facility] [address] [place], [place] [address] [facility] [place] [address] [facility] [address] documented in this encounter Visit Diagnoses Diagnosis Diabetes Mellitus Type 2 Hyperglycemia ( HCC) Dyspnea documented in this encounter Additional Health Concerns Infection Onset Date Last Indicated Resolved Time COVID19 Pending 01/26/2021 01/26/2021 01/26/2021 12:29 PM CDT documented as of this encounter Care Teams Alumni Relations Manager Relationship Specialty Start Date End Date None Reported, Pcp PCP - General Family Medicine 01/25/2102/21 documented as of this encounter
--- OUTSIDE RECORDS SUMMARY | 2022-04-02 19:41 | XMS_ITS | Encounter Summary ---
:1965 Author Organization [facility] Address [address] [place] [address] Care Team Providers Name Role Phone Unavailable Primary Care Provider Unavailable Encounter Details Date Type Department Care Team Description 12/06/2020 Orders Only Division of [facility] Ameya Lemus es Mellitus Type 2 Internal Medicine, Daniel Eason Hyperglycemia ([facility]) [place], in [address] [facility] (Primary Dx) [place], [place] [address] [place] [address] [place], [place] [phone] (Work) [phone] Social History Tobacco Use Types Packs/Day Years [...] Appointment Pulmonary Medicine Mario Pitt M.D. 200 [place] [address] 05/23/2022 Office Visit Cardiovascular Disease Osman Wesley M.D. 200 [place] [address] documented as of this encounter Visit Diagnoses Diagnosis Diabetes Mellitus Type 2 Hyperglycemia ( HCC) - Primary documented in this encounter
--- OUTSIDE RECORDS SUMMARY | 2022-04-02 19:41 | XMS_ITS | Encounter Summary ---
:1965 Author Organization [facility] Address [address] [place] [address] Care Team Providers Name Role Phone Elsewhere, Pcp Primary Care Provider Unavailable Encounter Details Date Type Department Care Team Description 12/05/2020 Orders Only , Aniyah Sparrow M.D. [facility] [address] [facility] Building[address] [place], [place] [address] [facility] [phone] [place] [address] [phone] Social History Tobacco Use Types Packs/Day Years [...] Appointment Pulmonary Medicine Mario Pitt M.D. 200 [place] [address] 05/23/2022 Office Visit Cardiovascular Disease Osman Wesley M.D. 200 [place] [address] documented as of this encounter Visit Diagnoses Not on filedocumented in this encounter Additional Health Concerns Infection Onset Date Last Indicated Resolved Time COVID19 Pending 01/26/2021 01/26/2021 01/26/2021 12:29 PM CDT COVID19 01/26/2021 01/26/2021 02/15/2021 4:55 AM CDT documented as of this encounter Care Teams Member Service Specialist Relationship Specialty Start Date End Date Elsewhere, Pcp PCP - General 02/22/21 documented as of this encounter
--- OUTSIDE RECORDS SUMMARY | 2022-04-02 19:41 | XMS_ITS | Encounter Summary ---
:1965 Author Organization [facility] Address [address] [place] [address] Care Team Providers Name Role Phone Unavailable Primary Care Provider Unavailable Reason for Visit Reason Comments Becca / Angeli Encounter Details Date Type Department Care Team Description 12/13/2020 Clinical Communication Division of LemusBecca / Angeli [facility] Internal Phuong Hawley M.D [facility] [address] [place] [address] in [place] [phone] [place] [phone] [address] [facility] (Work) [place], [place] [phone] (Fax) [phone] Social History Tobacco Use Types Packs/Day Years [...] More than 4 times per year 02/09/2021 rastafari services? Do you belong to any clubs [...] your review, signature, and date. Thanks Denisse [phone] documented in this encounter Plan of Treatment Upcoming Encounters Date Type Specialty Care Team Description 04/06/2022 Clinical Communication Admitting/Central Scheduling 04/09/2022 Appointment Pulmonary Medicine Mario Pitt M.D. [address] [place] [address] 05/23/2022 Office Visit Cardiovascular Disease Osman Wesley M.D. [address] [place] [address] documented as of this encounter Visit Diagnoses Not on filedocumented in this encounter
--- OUTSIDE RECORDS SUMMARY | 2022-04-02 19:41 | XMS_ITS | Encounter Summary ---
:1965 Author Organization [facility] Address [address] [place] [address] Care Team Providers Name Role Phone Unavailable Primary Care Provider Unavailable Encounter Details Date Type Department Care Team Description 12/06/2020 Clinical Communication Division of Pulmonary Destiney florez, Medicine in [place], Phuong Hawley M.D. [place] [address] [facility] [address] [place] [address] [phone] Social History Tobacco Use Types Packs/Day Years [...] or relatives? How often do you attend hindu or More than 4 times per year 02/09/2021 christianity services? Do you belong to any clubs or Yes 02/09/2021 organizations such as hindu groups, unions, fraternal or athletic groups, or [...] 12/06/2020 4:41 PM CDT called in via substation operator automatic to discuss glucose meter/lancets/strips prescription as well as rash over arm. She tells me the pharmacy did not give them a glucose meter/lancets/strips so I sent a new prescription to their request pharmacy in [facility]. They also tell me he has developed [...] Appointment Pulmonary Medicine Mario Pitt M.D. [address] [place] [phone] 05/23/2022 Office Visit Cardiovascular Disease Osman Wesley M.D. [address] [place] [phone] documented as of this encounter Visit Diagnoses Not on filedocumented in this encounter
--- OUTSIDE RECORDS SUMMARY | 2022-04-02 19:42 | XMS_ITS | Encounter Summary ---
:1965 Author Organization [facility] Address [address] [place] [id number] Care Team Providers Name Role Phone Unavailable Primary Care Provider Unavailable Reason for Visit Reason Comments Chest Pain Bradycardia Encounter Details Date Type Department Care Team Description 11/28/2020 - [facility] Krystian Cason M.D. [address] [place] [phone] Edema Pulmonary (HCC) (Primary Dx); [facility] [address] [place] [phone] Other Pneumothorax; [facility], Kelsi Aguilar M.D. [address] [place] [phone] Myocardial Infarction Old; Isidro Mendez M.D. [address] [place] [phone] Atherosclerotic Heart Disease [place] Cor onary Artery With Other Forms Angina Pectoris (Stable Angina/Angina Of Exertion) (HCC); Kay Wilkerson Charles F Jr., M.D. [address] [place] [phone] Acute Respiratory Failure With Hypoxia ( HCC); Floor Hypoxemia [address] [place] [phone] Social History Tobacco Use Types Packs/Day Years [...] or relatives? How often do you attend druze or More than 4 times per year 02/09/2021 episcopal services? Do you belong to any clubs or Yes 02/09/2021 organizations such as druze groups, unions, fraternal or athletic groups, or [...] slept in a nursing home (including now)? Sex Assigned at Date [...] PM CDT DISCHARGE SUMMARY BRIEF OVERVIEW Hospital: [facility] Discharge Provider: Isidro Powell M.D. Primary Team: [facility] Admission Date: 11/28/2020 Discharge Date: 12/05/2020 PRINCIPAL DIAGNOSIS Edema Pulmonary (HCC) SECONDARY DIAGNOSES Principal Problem: Multifactorial hypoxia Active Problems: Diabetes Mellitus Type 2 Hyperglycemia (HCC) Hypertension Essential Primary Coronary Stent Status Post Acute Respiratory Failure With Hypercapnia (HCC) Acute Respiratory Failure With Hypoxia (HCC) Atherosclerotic Heart Disease [place] Coronary Artery With Other Forms Angina Pectoris (Stable Angina/Angina Of Exertion) (HCC) Acute on chronic systolic heart failure Pneumothorax Unspecified Resolved Problems: * No resolved hospital problems. * Surgery Information This Encounter Past Procedures (12/05/2019 to Today) Date Procedures Providers Location 12/02/2020 Coronary Angiography Luis Wells M.D.Omer, Mohamed A, M.B., B.Ch. [facility] CCL DISCHARGE DISPOSITION Home or Self [...] - Requires outpatient f/u with PCP in [place]. OUTPATIENT FOLLOW UP For appointment details refer to your Patient Appointment Guide. TEST RESULTS PENDING AT DISCHARGE Pending Labs None DETAILS OF HOSPITAL STAY REASON FOR ADMISSION Edema Pulmonary (HCC) Other Pneumothorax HOSPITAL COURSE Mr. Fairbanks with history of hypertension and a recent cardiac stents placed in December presented with respiratory arrest. He is from [place] and woke up day of admission with acute onset shortness ofbreath that Mr. Fairbanks described as wet. He also reportedly noted left arm tingling and pain and was concerned he was having a heart attack. His fiance drove him to the nearest gas station where they called EMS. He arrived to the [facility] with [facility]. On scene he was diaphoretic and [...] regions. Prior ECHO results from the patient's production broacher showed an EF of 50-55% with similar [...] coronary stent and active essential hypertension. Diabetes child care leader educated patient on diabetes management and devised a discharge medical therapy regimen. CONSULTS ORDERED DURING THIS ADMISSION IP CONSULT TO THORACIC SURGERY IP CONSULT TO ENROUTE CONTROLLER OVEN BAKER IP CONSULT TO DIABETES IP CONSULT TO DIETITIAN IP CONSULT TO COOK SYRUP MAKER IP CONSULT TO CARDIOLOGY IP CONSULT TO [...] presented with respiratory arrest. He is from [place] and woke up this morning with acute onset shortness of breath that Mr. Fairbanks described as wet. He also reportedly noted left arm tingling and pain and was concerned he was having a heart attack. His fiance drove him to the nearest gas station where they called EMS. He arrived to the [facility] with [place] [facility]. On scene he was diaphoretic and [...] management, yearly follow up with a local Professor Of Business Administration and Dietitian is recommended. Please check with your insurance company asdiabetes education visits are commonly covered. Your primary care provider can provide referrals foreducation. AttachmentsThe following attachments cannot be sent through Care Everywhere. Metformin (By mouth) (Beninese)Clopidogrel (By mouth) (Beninese)Acetaminophen (By mouth) (Beninese)Oxycodone/Acetaminophen (By mouth) (Beninese)Metoprolol (By mouth) (Beninese)Pantoprazole (By mouth) (Beninese)documented in this encounter Medications at Time of [...] as directed for 1 each 0 2020 [facility] diabetes control. metoprolol succinate TAKE 1 TABLET [...] meter, testing supplies and Metformin sent to [facility]. Discussed above plan with patient who is alert and oriented and in agreement. DCS Pager [phone] will continue to follow. Call primary service for diabetes concerns between [phone]. Primary service to contact DCS via hospital serging machine operator automatic for questions. Liv Martins, R.R.T., L.R.T. - [...] than patient SpO2 is considered artifact. Christian Ceh - 12/05/2020 7:33 AM CDT [facility] PROGRESS NOTE SUBJECTIVE Mr. Fairbanks was resting [...] intact. No evidence of disorganizedthinking. Reliable history director nursing service. DIAGNOSTICS I have personally reviewed the laboratory data and imaging since admission, and in/outs for past 72 hours. (12/05/20) Nocturnal Home Oxygen Assessment: Requires 1L NC supplemental oxygen. 87% RA asleep. (12/05/20) Daytime Home Oxygen Assessment: Does not require supplemental oxygen. 94% RA quiet wakefulness and 93% RA on activity. ASSESSMENT / PLAN Mr. Fairbanks is hospitalized [facility] for evaluation and management of multifactorial hypoxemia in the setting of left-sided pneumothorax, lung injury from pleural catheter placement, probable community- acquired pneumonia, and cardiogenic pulmonary edema from acute coronary event 11/25. Plan to d/c on 1L NC for sleep requirements. Plan to discharge today afternoon. Organize f/u with PCP in [place]. #1??Coronary artery disease with ischemic cardiomyopathy with??acute [...] 200mg OD. - Requires outpatient f/u with production broacher from [place]. #3??Left pneumothorax-possibly??iatrogenic??after needle decompression attempt for suspected [...] to discharge criteria: Met Plan discussed with [facility] Software Publisher, Chase Hernandez Jr., M.D., whowas present during rosales portions of the evaluation today. Please page the [facility] service pager at #[phone] with any questions. Enjoy today, Christian Che Medical Student #[id number] Associated attestation - Chase Goldstein Jr., M.D. [...] 12/04/2020 2:31 PM CDT SUBJECTIVE I met [id number] with and examined Mr. Fairbanks. I participated [...] Christian Che - 12/04/2020 8:12 AM CDT [facility] PROGRESS NOTE SUBJECTIVE Mr. Fairbanks was pleasant [...] intact. No evidence of disorganizedthinking. Reliable history director nursing service. DIAGNOSTICS I have personally reviewed the laboratory [...] / PLAN Mr. Fairbanks is hospitalized [facility] for evaluation and management [...] signs and Functional status Plan discussed with [facility] Software Publisher, Isidro Hough M.D., who was present during rosales portions of the evaluation today. Please page the [facility] service pager at #[phone] with any questions. Enjoy today, Christian Che Medical Student #[id number] Desiree Stone M.D. - 12/03/2020 12:24 PM [...] is warranted locally or at [facility] per patient preference and depending on clinical status. We will sign off. Please page the IP??Consult service at [phone]??with any questions or concerns. ?? The above [...] do not hesitate to call us at [phone] if we can be of further assistance. [...] closer to home or up here in [place] if desired. Certainly if he has further [...] another goodoption - Follow up with home production broacher within a couple weeks, If he would like to be seen here in [place] in a couple months we can facilitate [...] No evidence of disorganized thinking. Reliable history director nursing service. DIAGNOSTICS I have personally reviewed laboratory data, cultures, imaging, and ECGs since admission, with rosales findings discussed below in the assessment and plan. ASSESSMENT / PLAN Mr. Fairbanks is hospitalized [facility] for evaluation and management of multifactorial [...] met): oxygen requirements Plan discussed with Pulmonology Software Publisher, Isidro Hough M.D., who was present during the rosales portions of the evaluation today. Please page the Pulmonology service pager at [phone] with any questions. Associated attestation - Isidro Powell M.D. - 12/03/2020 2:12 PM CDT I met [id number] with and examined Mr. Fairbanks. I participated [...] follow. ??Please page the IP??Consult service at [phone]??with any questions orconcerns. ?? The above patient was discussed with ??Jonathan??who is??in agreement??with??the above??plan. Isidro Powell M.D. - 12/02/2020 3:48 PM CDT SUBJECTIVE I met [id number]-[id number] with and examined Mr. Fairbanks. I participated [...] Follow up: encouraged further outpatient follow-up. [facility] Registered Dietitian can be reached at pager: [phone] Joe Mahmood M.D. - 12/02/2020 1:08 PM [...] Christian Che - 12/02/2020 6:31 AM CDT [facility] PROGRESS NOTE SUBJECTIVE Mr. Fairbanks is [...] are audible with no added heart sounds. Muir beat was not appreciated. No visible JVP distension present. Abdomen: Persistently distended. Passing flatulence but not stool since 11/28 currently on laxatives. Soft, nontender, non rigid, no guarding present. No organomegaly or masses palpated. Bowel sounds arenormoactive diffusely. Mental: Mood and affect congruent. Alert and oriented. Attention intact. No evidence of disorganizedthinking. Reliable history director nursing service. DIAGNOSTICS I have personally reviewed the laboratory data and imaging since admission, and in/outs for past 72 hours. Lab results remained relatively stable today. WCC 11.3 (previous 12.3). Neutrophils 6.99 (prevoius 8.94). CXR showed persistent left jgwxh-dq-pcpsqkgn pneumothorax without mediastinal shift. Retrocardiac consolidation. Bibasilar atelectasis and probable trace left pleural effusion. Decreased left lateral chest wall subcutaneous emphysema. ASSESSMENT / PLAN Mr. Fairbanks is a 55 y.o. pleasant gentleman with a history of multivessel CAD currently [facility] for evaluation and management [...] continuous use. Team discussed non-rebreather use following wharf labourer to i) improve SaO2 levels ii) provide benefit for current pneumothorax. - Currently at wharf labourer for diagnostic +-therapeutic coronary angiography procedure. Follow-up [...] Fairbanks was educated by a nurse practitioner batch or continuous still operator on diabetes management??and commenced on insulin. Provided [...] Patient currently has no active PCP in [place] or [place]. External production broacher provided patient with information for a PCP in [place]. Advised patient on ways our service can [...] criteria (not met): Tests/procedures/consults Please page the [facility] service pager at #[phone] if you have any questions orconcerns. Plan discussed with [facility] Software Publisher, Isidro Hough M.D., who was present during rosales portions of the evaluation today. Enjoy today, Christian Che Medical Student #[id number] Isirdo Powell M.D. - 12/01/2020 6:10 PM CDT SUBJECTIVE I met cgbj-fq-hrso with and examined Mr. Fairbanks. I participated [...] provided to and reviewed with patient/family. Disclaimers: [place] Quality Providers: Patients and/or family/responsible libertarian have been provided thelist of Providers that share their quality measures with [facility]. Reviewed insurance coverage, provided patient with in-network options if applicable. Patient/family have indicated a preference for the facility/agency below. patient declined additional resources. OBJECTIVE Anticipated modifications to the home environment: The patient's family will provide transportation upon discharge. The patient and family will drive to his home in [place]. It is about a [address] The oxygen company is aware of this. Minda reports they can service his oxygen needs in [place], [place] as well as in at his home in [place]. Patient requires the following additional [...] Selected Services Address Phone Fax Patient Preferred [facility] [phone] Services Durable Medical Equipment [phone] [place] [address] [phone] -- Contact: Intake Portable tanks for transport [...] meter, testing supplies and Metformin sent to [facility]. Discussed above plan with patient who is alert and oriented and in agreement. DCS Pager [phone] will continue to follow. Call primary service for diabetes concerns between [phone]. Primary service to contact DCS via hospital serging machine operator automatic for questions. LYT Christian Che - 12/01/2020 11:05 AM CDT [facility] PROGRESS NOTE SUBJECTIVE Mr. [...] No lower extremity edema. No raised JVP. Muir beat was not appreciated. Abdomen: Mildly distended. Soft, flat, bowel sounds normoactive, nontender, nondistended, no palpable masses or organomegaly. Mental: Mood and affect congruent. Alert and oriented. Attention intact. No evidence of disorganizedthinking. Reliable history director nursing service. DIAGNOSTICS I have personally reviewed the laboratory [...] / PLAN Mr. Fairbanks is hospitalized [facility] for [facility] and management of Edema [...] Fairbanks was educated by a nurse practitioner batch or continuous still operator on diabetes management and commenced on insulin. Provided with a management plan following discharge. ?? hospice educator and dietitian consult are pending. ? [...] patient and offered advice. Patient stated his production broacher suggested a PCP in [place], [place]. Advised patient on waysour service can [...] criteria (not met): Tests/procedures/consults Plan discussed with [facility] Software Publisher, Isidro Hough M.D., who was present during rosales portions of the evaluation today. Please page the [facility] service pager at #[phone] if you have any questions. Yours sincerely, Christian Che Medical Student #[id number] Christian Ascencio M.D. - 12/01/2020 10:51 AM [...] 11/30/2020 1:57 PM CDT SUBJECTIVE I met [id number]-vo-ystp with and examined Mr. Fairbanks. I participated [...] min. ChineduChristian - 11/30/2020 11:44 AM CDT [facility] PROGRESS NOTE SUBJECTIVE Mr. [...] No lower extremity edema. No raised JVP. Muir beat was not appreciated. Abdomen: Distended. Soft, flat, bowel sounds normoactive, nontender, nondistended, no palpable masses or organomegaly. ENT: Hearing grossly intact. Dentition intact. No oral or pharyngeal erythema or lesions noted. Mental: Mood and affect congruent. Alert and oriented. Attention intact. No evidence of disorganizedthinking. Reliable history director nursing service. DIAGNOSTICS I have personally reviewed the laboratory [...] / PLAN Mr. Fairbanks is [facility] for [facility] and management of Edema [...] Primary ?? Received documentation from Mr. Fairbanks's production broacher for previous ECHO studies regarding cardiac stenting [...] Diabetes Mellitus Type 2 Hyperglycemia A1c 10.3% ([facility]) ?? Mr. Fairbanks was educated by a nurse practitioner batch or continuous still operator on diabetes management and commenced on insulin. hospice educator and dietitian consult are pending. ? [...] patient and offered advice. Patient stated his production broacher suggested a PCP in [place]. Advised patient on ways our service can be of assistance. Current Activity/Mobility: BMAT Level 4 (Able to stand and walk; needs staff assist if fall risk factors identified) Diet: diabetic diet Tubes/lines: PIV VTE prophylaxis: heparin (porcine) injection 5,000 units subcutaneous q8H Disposition: Uncertain with expected discharge date Stable to discharge criteria (not met): Tests/procedures/consults Plan discussed with [facility] Software Publisher, Isidro Hough M.D., who was present during rosales portions of the evaluation today. Please [place] [facility] [place] [phone] with any questions. Christian Che Medical Student #[id number] LYT Kishore Piña M.D. - 11/30/2020 7:27 [...] edema present. JVP distention was not visible. Muir beat was not palpable. Abdomen: Distended, soft [...] intact. No evidence of disorganizedthinking. Reliable history director nursing service. ASSESSMENT / PLAN Mr. Fairbanks is a [...] Essential Primary Plan on consulting Mr. Fairbanks's production broacher for further information regarding cardiac stenting history. [...] Fairbanks was educated by a nurse practitioner batch or continuous still operator on diabetes management. He has been commenced [...] care monitoring needs Plan discussed with Pulmonary Software Publisher, Dr. Powell, who was present during rosales portions of the evaluation today. [place] [phone] with any questions. Christian Foxp Medical Student #[id number] Kelsi Aguilar M.D. - 11/29/2020 10:16 AM [...] medical evaluation. Patient was found down at [facility] in [place], [place]. and family were with him and they called 911. When EMS arrived they made the decision to life flight him to [facility] for medical work up.Patient was intubated and sedated upon arrival. Patient's real name is Julio Grier - ay 1965. Patient's is on her way ([facility] - [phone]) OBJECTIVE Emergency Department social organization professor responded to the trauma bay in the context of a trauma page. Unidentified Ana Gaxiola was brought by [facility] Helicopter method of transport. ASSESSMENT / [...] He was quickly intubated and transferred to [facility]. He was sedated and paralyzed.Noted to have [...] presented with respiratory arrest. He is from [place] and woke up this morning with acute onset shortness of breath that Mr. Fairbanks described as wet. He also reportedly noted left arm tingling and pain and was concerned he was having a heart attack. His fiance drove him to the nearest gas station where they called EMS. He arrived to the [facility] with [facility]. On scene he was diaphoretic and [...] of old charts and pulse oximetry Krystian Csaon M.D. 11/28/20 0637 Luis Santoro, R.R.T., L.R.T. [...] PULMONARY CONSULT SERVICE CONSULT NOTE REFERRING SERVICE [facility] REASON FOR CONSULT Left-sided pneumothorax. HISTORY OF [...] planning on taking the patient to the wharf labourer for angio tomorrow. Recommendation: 1. No need [...] follow. ??Please page the IP??Consult service at [phone]??with any questions or concerns. ?? The above [...] 6:24 PM CDTAssociated Order(s): IP CONSULT TO ENROUTE CONTROLLER OVEN BAKER Encounter: Spiritual care Situation: Mr. Fairbanks asked for prayers for healing so that he could go home. He was able to recognize that he has improved quite a bit from the time he came in the hospital via helicopter. 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 Prayers were said with the patient and his family member. Plan: Will remain available for spiritual care as needed or requested. [facility]pl[facility] [phone] ([facility]). Christian Ascencio M.D. - 11/30/2020 [...] LVH, apical akinesis, trivial TR. Since his MD , he has been chest pain free. Two weeks prior to presentation to [place], he began experiencing intermittent episodes of chest pain and left arm burning very similar to his previous MD. the day prior to presentation, he had [...] water seal. He smoked until his last MD. no alcohol or drug use. Lives part-time in [place] and part-time in [place]. PAST MEDICAL/SURGICAL HISTORY See above SOCIAL HISTORY [...] Gatherings with Friends and Family: ??? Attends Methodist Services: ??? Active Member of Clubs or [...] patient lives with his . Spirituality / Anabaptist / Culture: None Psychosocial Risk Factors impacting the patient: none Abuse, Neglect, Maltreatment, Trauma: Current: Patient denied. ENVIRONMENTAL SUPPORTS Current Living Situation: The patient lives in [place], but reports also having a home in [place]. Anticipated modifications to the patient's home environment: [...] Skills/Strengths Family support ASSESSMENT / PLAN DISCUSSION Credentialing Specialist met with the patient/family to complete psychosocial assessment, provide ongoing emotional support, and to discuss psychoeducation of resources. Introduced Social Work and their role in the inpatient setting. Informed patient/family of Social Work's legal responsibility as a mandated die set up worker and what that entails in regards to [...] glycemic goal. - Consults: Diabetes Educators and Cafeteria Supervisor ANTICIPATED DISMISSAL PLAN: Given elevated A1c [...] Thank you for the consult. DCS Pager [phone] will follow. Call primary service for diabetes concerns between [phone]. Primary service to contact DCS via hospital serging machine operator automatic for questions. Nacho Torres M.D. - 11/28/2020 [...] per record Allergies None Social Lives in [place]. Vacationing at cabin in [place] at time of incident. The following portions [...] for further management. We placed a 28 Setswana left chest tube at the bedside. Please see procedure note for additional details. Postplacement x-ray demonstrates the tube is in the chest, though the side hole is adjacent chest wall. This was repositioned and subsequent CXR demonstrated good position. The pigtail catheter was clamped. Recommendations: -Maintain 28 Setswana chest tube to suction -20 cm water [...] of Shift Summary: See above for details. iJm Bradley M.S.eJssica, R.IRVING Lopez - 12/04/2020 4:57 PM CDT [...] Note Patient transferred to: [facility] Accompanied by: FANCY PACKER Report called? YES Nurse receiving report: TERENCE [...] Right Radial (Active) Placement Date/Time: 11/28/20 (c) 0572 Hand Hygiene Performed Prior to Insertion: Yes [...] Plan of Care: Patient was extubated to [place] and has tolerated well, strong cough. Will [...] from the ED after being brought to [facility] via [facility], report is patient had acute onset of SOB, left arm numbness and chest pain, [facility] arrived and placed on PAP and patient [...] Right Radial (Active) Placement Date/Time: 11/28/20 (c) 5587 Hand Hygiene Performed Prior to Insertion: Yes [...] distress. Patient was brought in by the [facility] crew, who provides history. At the [...] Heimlich flutter valve was replaced with the Onida tree attachment, lung sliding was now seen, [...] estimated age 40s to 50s flown via [employer] from scene due to concern for cardiogenic shock. Per report, patient is from [place] and has a history of recent cardiacstenting. [...] started on nitroglycerin drip and transported to [facility]. Nolan Yin reported SpO2 90% after intubation [...] presented with respiratory arrest. He is from [place] and woke up day of admission with acute onset shortness ofbreath that Mr. Fairbanks described as wet. He also reportedly noted left arm tingling and pain and was concerned he was having a heart attack. His fiance drove him to the nearest gas station where they called EMS. He arrived to the [facility] with [facility]. On scene he was diaphoretic and [...] regions. Prior ECHO results from the patient's production broacher showed an EF of 50-55% with similar [...] coronary stent and active essential hypertension. Diabetes child care leader educated patient on diabetes management and devised a discharge medical therapy regimen. Patient will need to follow up as an outpatient with their new PCP in [place]. documented in this encounter Plan of Treatment Upcoming Encounters Date Type Specialty Care Team Description 04/06/2022 Clinical Communication Admitting/Central Scheduling 04/09/2022 Appointment Pulmonary Medicine Mario Pitt M.D. [address] [place] [address] 05/23/2022 Office Visit Cardiovascular Disease Osman Wesley M.D. [address] [place] [address] documented as of this encounter Procedures Procedure [...] for CATHETERIZATION 5:47 PM CDT Heart Disease [place] this procedure Coronary Artery With are in [...] this procedure are in the results section. OK INS TUBE Routine 11/28/2020 Other Pneumothorax Results [...] (12/05/2020 12:09 PM CDT) Analysis Performed At [facility] Time Signature Glucose, POCT, 190 (H) 70 [...] Provider LAB POCT ORDERABLES-MANUAL Performing Organization Address City/[facility] Code Phon e Number POC [facility] [address] [place] [address] [place], [place] [id number] [place] [address] POC 200 [facility] (ABNORMAL) Glucose, POCT (12/05/2020 8:26 AM CDT) Analysis Performed At [facility] Time Signature Glucose, POCT, 157 (H) 70 - 140 12/05/2020 PCLX B mg/dL 8:58 AM CDT Site Capillary 12/05/2020 PCLX 8:58 AM CDT Last Intake 1-2 hours 12/05/2020 PCLX 8:58 AM CDT Specimen Anatomical Collection Method Collection Time Receive d Time (Source) Location / / Volume Laterality Blood 12/05/2020 8:26 AM 8:58 CDT AM CDT Unknown Provider LAB POCT ORDERABLES-MANUAL Performing Organization Address City/[facility] Phon e Number POC [facility] [address] [place] [address] [place], [place] [address] [place] [address] POC [address] [facility] (ABNORMAL) CBC with Differential, Blood (12/05/2020 6:58 AM CDT) [facility] gist [facility] Time Signature Hemoglobin 12.1 (L) 13.2 - [...] Code Phon e Number [facility] - [address] [place], [place] [phone] [employer] [facility] [place] [address] Laboratories-[facility] [address] [facility] Basic Metabolic Panel (12/05/2020 6:58 AM CDT) [...] 12/05/2020 DTL Black/ mL/min/BSA 8:18 AM CDT [place] Comment: ----ADDITIONAL INFORMATION---- Estimated GFR calculated using [...] Code Phon e Number [facility] - [address] [place], [place] [address] [employer] [facility] [facility] [place] [address] Laboratories-[facility] [address] (ABNORMAL) Glucose, POCT (12/04/2020 10:04 PM CDT) Analysis Performed At [facility] logis Time Signature Glucose, POCT, 180 (H) 70 - 140 12/04/2020 PCLX B mg/dL 10:08 PM CDT Last Intake 3-4 hours 12/04/2020 PCLX 10:08 PM CDT Specimen Anatomical Collection Method Collection Time Receive d Time (Source) Location / / Volume Laterality Blood 12/04/2020 10:04 12/04/2020 PM CDT 10:08 PM CDT Unknown Provider LAB POCT ORDERABLES-MANUAL Performing Organization Address City/State/[facility] Phon e Number POC [facility] [address] [place] [address] [place] [address] [place] POC 200 [facility] Glucose, POCT (12/04/2020 5:54 PM CDT) Analysis Performed At [facility] Signature Glucose, POCT, 135 70 - 140 12/04/2020 PCLX B mg/dL 5:59 PM CDT Site Capillary 12/04/2020 PCLX 5:59 PM CDT Last Intake 3-4 hours 12/04/2020 PCLX 5:59 PM CDT Specimen Anatomical Collection Method Collection Time Receive d Time (Source) Location / / Volume Laterality Blood 12/04/2020 5:54 PM 5:59 CDT PM CDT Unknown Provider LAB POCT ORDERABLES-MANUAL Performing Organization Address City/[facility] Phon e Number POC [facility] [address] [place] [address] [place] [address] [place] POC 200 [facility] (ABNORMAL) Glucose, POCT (12/04/2020 12:37 PM CDT) Analysis Performed At [facility] Time Signature Glucose, POCT, 204 (H) 70 - 140 12/04/2020 PCLX B mg/dL 12:47 PM CDT Last Intake 3-4 hours 12/04/2020 PCLX 12:47 PM CDT Specimen Anatomical Collection Method Collection Time Receive d Time (Source) Location / / Volume Laterality Blood 12/04/2020 12:37 12/04/2020 PM CDT 12:47 PM CDT Unknown Provider LAB POCT ORDERABLES-MANUAL Performing Organization Address City/[facility]/ZIP [facility] Phon e Number POC [facility] [address] [place] [address] [place] [address] [place] POC 200 [facility] Glucose, POCT (12/04/2020 7:44 AM [...] Provider LAB POCT ORDERABLES-MANUAL Performing Organization Address [facility] Phon e Number POC [facility] [address] [place] [address] [place] [address] [place] POC 200 [facility] (ABNORMAL) Glucose, POCT (12/03/2020 9:24 [...] Provider LAB POCT ORDERABLES-MANUAL Performing Organization Address City/[facility] Phon e Number POC [facility] [address] [place] [address] [place] [address] [place] POC 200 [facility] (ABNORMAL) Glucose, POCT (12/03/2020 5:20 [...] Provider LAB POCT ORDERABLES-MANUAL Performing Organization Address City/[facility] Phon e Number POC [facility] [address] [place] [address] [place] [address] [place] POC 200 [facility] (ABNORMAL) Glucose, POCT (12/03/2020 11:04 [...] Provider LAB POCT ORDERABLES-MANUAL Performing Organization Address City/[facility] Phon e Number POC [facility] [address] [place] [address] [place] [address] [place] POC 200 [facility] DX Chest AP or PA [...] chest wall. Aortic calcification. Phuong Lemus M.D. IMLady DIAGNOSTIC IMAGING PROCE CAROL ANN Glucose, POCT (12/03/2020 8:04 AM CDT) Analysis Performed At Path logist Time Signature Glucose, POCT, 126 70 - 140 12/03/2020 PCLX B mg/dL 8:12 AM CDT Last Intake 3-4 hours 12/03/2020 PCLX 8:12 AM CDT Specimen Anatomical Collection Method Collection Time Receive d Time (Source) Location / / Volume Laterality Blood 12/03/2020 8:04 AM 8:12 CDT AM CDT Unknown Provider LAB POCT ORDERABLES-MANUAL Performing Organization Address City/State/ZIP Code Phon e Number POC [facility] [address] [place] [address] [place] [address] [place] POC 200 [facility] (ABNORMAL) CBC with Differential, Blood (12/03/2020 6:34 AM CDT) [facility] Method Time Signature Hemoglobin 12.4 (L) [...] M.D. LAB BLOOD ADD-ON Performing Organization Address City/State/[facility] Code Phon e Number [facility] - [address] [place] [phone] [employer] [place] [address] Laboratories-[facility] 200 [facility] Basic Metabolic Panel (12/03/2020 6:34 [...] 12/03/2020 DTL Black/ mL/min/BSA 8:01 AM CDT [place] Comment: ----ADDITIONAL INFORMATION---- Estimated GFR calculated using [...] Blood (Blood, 12/03/2020 6:34 AM 12/04/19 21 7:14 Venous) CDT AM CDT Phuong Lemus M.D. LAB BLOOD ADD-ON Performing Organization Address City/State/ZIP Code Phon e Number [facility] - [address] [place], [place] [address] [employer] [facility] [place] [address] Laboratories-[facility] 200 [facility] SARS-CoV-2 Nucleocapsid Total Ab, S (12/03/2020 6:33 AM CDT) [facility] Method Time Signature SARS-CoV-2 Negative Negative 12/03/2020 [...] was performed using the [employer] [id number]-2 Reagent assay from [employer], which has received Emergency Use Authori zation(EUA) by the U.S. Food and Drug Administration . Fact sheets for this Emergency Use Autho rization (EUA) assay can be found at the following link s: For Healthcare Providers: https://www.fda.gov/media/437344/downloa d For Patients: https://www.fda.gov/media/246765/downloa d Specimen Anatomical Collection Method Collection Time Receive d Time (Source) Location / / Volume Laterality Blood (Blood, 12/03/2020 6:33 AM 12/04/19 4:19 Venous) CDT PM CDT Prince Powers M.D. LAB MICROBIOLOGY - BLOOD ORD ERABLES Performing Organization Address City/[facility]/ZIP [facility] Phon e [facility] - [address] [place] [phone] [employer] [place] [place] [address] [facility] [address] [facility] (ABNORMAL) Glucose, POCT (12/02/2020 9:06 PM CDT) [...] Provider LAB POCT ORDERABLES-MANUAL Performing Organization Address City/[facility] Phon e Number POC [facility] [address] [place] [address] [place] [address] [facility] [address] [facility] CORONARY ANGIOGRAPHY (12/02/2020 5:47 PM CDT) Anatomical [...] City/State/ZIP Code Phon e Number POC [facility] [address] [place] [address] [place] [address] [place] POC 200 [facility] Glucose, POCT (12/02/2020 12:12 PM CDT) Analysis Performed At Path logis Time Signature Glucose, POCT, 105 70 - [...] Provider LAB POCT ORDERABLES-MANUAL Performing Organization Address City/State/[facility] Code Phon e Number POC [facility] [address] [place] [address] [place] [address] [place] POC 200 [facility] Glucose, POCT (12/02/2020 8:14 AM CDT) Analysis Performed At [facility] Time Signature Glucose, POCT, 128 70 - 140 12/02/2020 PCLX B mg/dL 8:38 AM CDT Last Intake > 4 hours 12/02/2020 PCLX 8:38 AM CDT Specimen Anatomical Collection Method Collection Time Receive d Time (Source) Location / / Volume Laterality Blood 12/02/2020 8:14 AM 8:39 CDT AM CDT Unknown Provider LAB POCT ORDERABLES-MANUAL Performing Organization Address City/State/[facility] Code Phon e Number POC [facility] [address] [place] [address] [place] [address] [place] POC 200 [facility] DX Chest AP or PA and Lateral 2 Views (12/02/2020 8:00 AM CDT) Anatomical Region Laterality Modality Chest, Thoracic RST LOS, Thoracic ARZ LOS, Thoracic N/A Digital Radiography FLA LOS Specimen (Source) Anatomical Collection Method Collection Time Re ceived Time Location / / Volume Laterality 12/02/2020 8:03 AM CDT Impressions 12/02/2020 8:12 AM CDT Since 12/01/2020, stable appearing left [id number] pneumothorax without mediastinal shift. Retrocardiac consolidation/atelectasis and [...] EWS IMPRESSION: Since 12/01/2020, stable appearing left [id number]-[id number] pneumothorax without mediastinal shift. Retrocardiac consolidation/atelectasis and probable trace left pleural effusion . Normal cardiac contour. Right-sided basilar atelectasis without pneumothorax or effusion. Decreased left lateral chest wall subcutaneous emphysema. Prince Powers M.D. IMLady DIAGNOSTIC IMAGING PROCE DURES (ABNORMAL) CBC with Differential, Blood (12/02/2020 7:38 AM CDT) [facility] Method Time Signature Hemoglobin 11.9 (L) [...] Code Phon e Number [facility] - [address] [place] [phone] [employer] [place] [address] [facility] 200 [facility] Basic Metabolic Panel (12/02/2020 7:38 [...] 12/02/2020 DTL Black/ mL/min/BSA 8:30 AM CDT [place] Comment: ----ADDITIONAL INFORMATION---- Estimated GFR calculated using [...] M.D. LAB BLOOD ADD-ON Performing Organization Address City/[facility] Phon e Number [facility] - [facility] [address] [place], [place] [address] [employer] [facility] [place] [address] [place] [address]-[facility] [address] (ABNORMAL) Glucose, POCT (12/01/2020 9:22 PM CDT) Analysis Performed At Patho logis Time Signature Glucose, POCT, 238 (H) 70 [...] Provider LAB POCT ORDERABLES-MANUAL Performing Organization Address City/[facility] Phon e Number POC [facility] [address] [place] [address] [place] [address] [facility] 200 [facility] Glucose, POCT (12/01/2020 5:31 PM CDT) Analysis Performed At Patho logis Time Signature Glucose, POCT, 134 70 - 140 12/01/2020 PCLX B mg/dL 5:34 PM CDT Last Intake 3-4 hours 12/01/2020 PCLX 5:34 PM CDT Specimen Anatomical Collection Method Collection Time Receive d Time (Source) Location / / Volume Laterality Blood 12/01/2020 5:31 PM 5:35 CDT PM CDT Unknown Provider LAB POCT ORDERABLES-MANUAL Performing Organization Address City/State/ZIP Code Phon e Number POC [facility] [address] [place] [address] PCLX [facility] [place] [address] [place] POC [address] DX Chest [...] Provider LAB POCT ORDERABLES-MANUAL Performing Organization Address City/[facility]/ZIP Code Phon e Number POC [facility] [address] [place] [address] [place] [address] [place] POC 200 [facility] (ABNORMAL) Glucose, POCT (12/01/2020 9:33 AM CDT) [...] Provider LAB POCT ORDERABLES-MANUAL Performing Organization Address [facility] Phon e Number POC [facility] [address] [place] [address] [place] [address] [place] [facility]OC 200 [facility] DX Chest AP or PA [...] Esthela Ryder M.D. IMG DIAGNOSTIC IMAGING PROCE DUREMMA APTT (Activated Partial Thromboplastin Time) (12/01/2020 7:04 AM CDT) athologist Signature Activated 29 25 - 37 sec 12/01/2020 DTL Partial 8:23 AM CDT Thrombopl Time, P Specimen Anatomical Collection Method Collection Time Receive d Time (Source) Location / / Volume Laterality Blood (Blood, 12/01/2020 7:04 AM 12/02/19 7:53 Venous) CDT AM CDT Aniyah Roberson M.D. LAB BLOOD ADD-ON Performing Organization Address City/[facility] Code Phon e Number [facility] - [address] [place] [phone] [employer] [facility] [place] [address] [facility] 200 [facility] Prothrombin Time (PT) (12/01/2020 7:04 AM CDT) [...] Code Phon e Number [facility] - [address] [place], [place] [address] [employer] [facility] [place] [place] [address] (ABNORMAL) CBC without Differential (12/01/2020 7:04 [...] M.D. LAB BLOOD ADD-ON Performing Organization Address City/[facility] Phon e Number [facility] - [address] [place], [place] [address] [employer] [facility] [place] [place] [address] (ABNORMAL) Basic Metabolic Panel (12/01/2020 7:04 AM [...] 12/01/2020 DTL Black/ mL/min/BSA 8:35 AM CDT [place] Comment: ----ADDITIONAL INFORMATION---- Estimated GFR calculated using [...] Code Phon e Number [facility] - [address] [place], [place] [address] [employer] [facility] [facility] [place] [address] Laboratories[facility] [address] (ABNORMAL) Glucose, POCT (11/30/2020 [...] City/State/ZIP Code Phon e Number POC [facility] [address] [place] [address] [place] [address] [facility] 200 [facility] pH, Urine (11/30/2020 5:43 PM CDT) P athologist Signature pH, U 5.3 4.5 - 8.0 11/30/2020 8:56 DTL PM CDT Specimen Anatomical Collection Method Collection Time Receive d Time (Source) Location / / Volume Laterality Urine 11/30/2020 5:43 PM 6:06 CDT PM CDT Esthela Ryder M.D. LAB URINE ORDERABLES Performing Organization Address City/[facility]/ZIP [facility] Phon e Number [facility] - [address] [place], [place] [address] [place] [address] Laboratories-[facility] 200 [facility] (ABNORMAL) Microscopic Automated (11/30/2020 5:43 PM CDT) [...] M.D. LAB URINE ORDERABLES Performing Organization Address City/[facility]/ZIP Code Phon e Number [facility] - [address] [place], [place] [address] [facility] [place] [address] Laboratories-[address] Osmolality, Urine (11/30/2020 5:43 PM CDT) P athologist Signature Osmolality, U 492 150 - 1150 11/30/2020 DTL mOsm/kg 8:56 PM CDT Specimen Anatomical Collection Method Collection Time Receive d Time (Source) Location / / Volume Laterality Urine 11/30/2020 5:43 PM 6:06 CDT PM CDT Esthela Ryder M.D. LAB URINE ORDERABLES Performing Organization Address City/[facility]/ZIP Code Phon e Number [facility] - [address] [place], [place] [address] [employer] [facility] [place] [place] [address] (ABNORMAL) Dipstick, Urine (11/30/2020 5:43 PM [...] Code Phon e Number [facility] - [address] [place], [place] [address] [employer] [facility] [place] [place] [address] Urinalysis with Microscopic: Urine, Midstream (11/30/2020 [...] M.D. LAB URINE ORDERABLES Performing Organization Address City/[facility]/ZIP [facility] Phon e Number [facility] - [address] [place], [place] [address] [facility] (ABNORMAL) Glucose, POCT (11/30/2020 5:20 PM CDT) Analysis Performed At Patho logis Time Signature Glucose, POCT, 161 (H) 70 [...] Provider LAB POCT ORDERABLES-MANUAL Performing Organization Address City/[facility]/ZIP Code Phon e Number POC [facility] [address] [place] [address] [place] [address] [facility] 200 [facility] (ABNORMAL) Glucose, POCT (11/30/2020 11:41 AM CDT) Analysis Performed At Patho logis Time [...] Provider LAB POCT ORDERABLES-MANUAL Performing Organization Address City/[facility]/ZIP Code Phon e Number POC [facility] [address] [place] [address] [place] [address] [place] [facility] [address] [facility] (ABNORMAL) Glucose, POCT (11/30/2020 7:35 AM CDT) [...] Provider LAB POCT ORDERABLES-MANUAL Performing Organization Address City/[facility] Code Phon e Number POC [facility] [address] [place] [address] [place] [address] [place] [facility] 200 [facility] Calcium, Ionized (11/30/2020 12:06 AM CDT) P athologist Signature Calcium, 4.85 4.57 - 5.43 11/30/2020 DTL Ionized, S mg/dL 1:20 AM CDT Comment: ----ADDITIONAL INFORMATION---- This test has been modified from the man rikar's instructions. Its performance characteri stics were determined by [facility] in a manner co nsistent with [...] Code Phon e Number [facility] - [address] [place], [place] [address] [place] [address] [place] [id number] [place] [address] Phosphorus Inorganic (11/30/2020 12:06 AM CDT) P [...] Code Phon e Number [facility] - [address] [place], [place] [address] [place] [address] [place] [id number] [place] [address] Magnesium (11/30/2020 12:06 AM CDT) P athologist Signature Magnesium, S 1.8 1.7 - 2.3 11/30/2020 DTL mg/dL 1:17 AM CDT Specimen Anatomical Collection Method Collection Time Receive d Time (Source) Location / / Volume Laterality Blood (Blood, 11/30/2020 12:06 11/30/2020 Venous) AM CDT 12:45 AM CDT Aniyah Roberson M.D. LAB BLOOD ADD-ON Performing Organization Address City/State/ZIP Code Phon e Number [facility] - [address] [place], [place] [address] [employer] [facility] [place] [id number] [place] [address] (ABNORMAL) CBC with Differential, Blood (11/30/2020 12:06 AM CDT) [facility] gist Method Time Signature Hemoglobin 11.7 (L) [...] Code Phon e Number [facility] - [address] [place], [place] [address] [place] [address] [place] [address] Laboratories-[facility] [address] Basic Metabolic Panel (11/30/2020 12:06 AM CDT) [...] 11/30/2020 DTL Black/ mL/min/BSA 1:17 AM CDT [place] Comment: ----ADDITIONAL INFORMATION---- Estimated GFR calculated using [...] Code Phon e Number [facility] - [address] [place], [place] [address] [place] [employer] [facility] [place] [address] [facility] [address] (ABNORMAL) Glucose, POCT (11/29/2020 [...] Provider LAB POCT ORDERABLES-MANUAL Performing Organization Address City/[facility]/ZIP Code Phon e Number POC [facility] [address] [place] [address] [place] [address] [place] [facility] 200 [facility] (ABNORMAL) Glucose, POCT (11/29/2020 6:09 PM CDT) Analysis Performed At [facility] Time Signature Glucose, POCT, 266 (H) 70 [...] LAB POCT ORDERABLES-MANUAL Performing Organization Address City/State/ZIP [facility] [place]on [place] Number POC [facility] [address] [place] [address] [place] [address] [place] [facility] 200 [facility] (ABNORMAL) Glucose, POCT (11/29/2020 12:20 PM CDT) Analysis Performed At Patho logist Time Signature Glucose, POCT, 232 (H) 70 - 140 11/29/2020 P[facility] B mg/dL 12:22 PM CDT Site Capillary 11/29/2020 [facility] 12:22 PM CDT Specimen Anatomical Collection Method Collection Time Receive d Time (Source) Location / / Volume Laterality Blood 11/29/2020 12:20 11/29/2020 PM CDT 12:23 PM CDT Unknown Provider LAB POCT ORDERABLES-MANUAL Performing Organization Address City/State/ZIP Code Phon e Number POC [facility] [address] [place] [address] PCLX [facility] [place] [address] [place] [facility] [address] (TTE) 2D ECHO DOPPLER COLOR AND CONTRAST [...] Echocardiography Contra st Administration Protocol Reference Document [id number]. Patient met an inclusion cri terion and did not have contraindications in screening sections. For the complete report, see the [employer] [place] Documents. Narrative 11/29/2020 4:30 PM CDT For the complete report, see the Order-L [place] Documents. Final Impressions 1. Mildly enlarged left [...] effusion. 6. No previous studies available for [employer]. Procedure Note Guerda Calix M.D., Ph.D. - [...] effusion. 6. No previous studies available for [employer]. Findings Echo performed in the ICU with [...] Echocardiography Contra st Administration Protocol Reference Document [id number]. Patient met an inclusion cri terion and [...] City/State/ZIP Code Phon e Number POC [facility] [address] [place] [address] PCLX [facility] [place] [address] [place] [facility] [address] (ABNORMAL) CBC without Differential (11/29/2020 3:46 AM CDT) [facility] Method Time Signature Hemoglobin 11.5 (L) [...] 4:23 Venous) CDT AM CDT Javier Chen APRN, C.N.P., D.N.P. LAB BLOOD ADD-O N Performing Organization Address City/State/ZIP Code Phon e Number [facility] - [address] [place], [place] [address] [place] [employer] [facility] [facility] [place] [place] [address] [facility] 200 [facility] (ABNORMAL) Basic Metabolic Panel (11/29/2020 3:46 AM [...] 11/29/2020 DTL Black/ mL/min/BSA 5:00 AM CDT [place] Comment: ----ADDITIONAL INFORMATION---- Estimated GFR calculated using [...] LAB BLOOD ADD-O N Performing Organization Address City/[facility] Phon e Number [facility] - [address] Phosphorus Inorganic (11/29/2020 3:46 AM CDT) P athologist Signature Phosphorus 3.0 2.5 - 4.5 11/29/2020 DTL (Inorganic), S mg/dL 5:00 AM CDT Specimen Anatomical Collection Method Collection Time Receive d Time (Source) Location / / Volume Laterality Blood (Blood, 11/29/2020 3:46 AM 11/30/19 4:22 Venous) CDT AM CDT Javier Chen APRN, C.N.P., D.N.P. LAB BLOOD ADD-O N Performing Organization Address City/[facility] Phon e Number [facility] - [address] [place], [place] [address] [place] [address] Benzodiazepines Confirmation, Urine (11/28/2020 10:35 PM CDT) [facility] gist Method Time Signature Alprazolam by Negative [...] PM CDT 2-Hydroxy Ethyl Negative Cutoff: 12/01/2020 [facility] Flurazepam by 10 ng/mL 3:47 PM CDT LC-MS/MS Lorazepam by Negative Cutoff: 12/01/2020 [facility] LC-MS/MS 10 ng/mL 3:47 PM CDT Prazepam by LC-MS/MS Negative Cutoff: 12/01/2020 [facility] 10 ng/mL 3:47 PM CDT Triazolam by Negative Cutoff: 12/01/2020 [facility] LC-MS/MS 10 ng/mL 3:47 PM CDT Alpha-Hydroxy Negative Cutoff: 12/01/2020 [facility] Triazolam by 10 ng/mL 3:47 PM CDT LC-MS/MS Zolpidem by LC-MS/MS Negative Cutoff: 12/01/2020 [facility] 10 ng/mL 3:47 PM CDT Zolpidem Negative Cutoff: 12/01/2020 [facility] Ogkbnk-3-Nemyfhfnbb 10 ng/mL 3:47 PM CDT acid by LC-MS/MS Benzodiazepines Positive. 12/01/2020 [facility] Interpretation 3:47 PM CDT Comment: ----ADDITIONAL INFORMATION---- This report is intended for use in clini tio monitoring and management of patients. ??It is not intended for use i n employment-related testing. This test was developed and its performa nce characteristics determined by [facility] in a manner consistent with CLIA requirements. This test has not been cleared or approved by the U.[place]. Boyd d and Drug Administration. Specimen Anatomical Collection Method Collection Time Receive d Time (Source) Location / / Volume Laterality Urine 11/28/2020 10:35 11/29/2020 PM CDT 12:12 PM CDT Priscilla Delgado APRN C.N.PLisa LAB URINE ORDERABLES Performing Organization Address City/State/ZIP Code Phon e Number [facility] [address] [place], [place] [address] [facility] [place] [address] Laboratory Medicine and Pathology [address] [place] (ABNORMAL) Drug Abuse Survey with Confirmation, Panel 9, Urine (11/28/2020 10:35 PM CDT) Component Value Ref Test Analysis Performed At Patholo gist Range Method Time Signature Alcohol Negative Cutoff: [...] characteristics were determi craig by [facility] in a manner consistent with CLIA requirements. This test has not been cleared or approved by the U.S. Food and Drug Administration . Specimen Anatomical Collection Method Collection Time Receive d Time (Source) Location / / Volume Laterality Urine (Urine, 11/28/2020 10:35 11/29/2020 8:23 Clean Catch) PM CDT AM CDT Priscilla Delgado APRN C.N.P. LAB URINE ORDERABLES Performing Organization Address City/State/ZIP Code Phon e Number [facility] [address] [place] [address] SUPPORT CENTER [facility] [place] [address] Laboratory Medicine and Pathology [address] [place] Drug Screen, Prescription/OTC, Urine (11/28/2020 10:35 PM CDT) [facility] gist Method Time Signature Drugs Acetaminophen. Fentanyl. 11/30/2020 [facility] detected: 10:55 AM The following [...] performa nce characteristics determined by [facility] in a manner consistent with CLIA requirements. This test has not been cleared or approved by the U.[place]. [place] d and Drug Administration. Specimen Anatomical Collection Method Collection Time Receive d Time (Source) Location / / Volume Laterality Urine (Urine, 11/28/2020 10:35 11/29/2020 8:23 Clean Catch) PM CDT AM CDT Rachel Cutler APRNNJak LAB URINE ORDERABLES Performing Organization Address City/State/ZIP Code Phon e Number [facility] [address] [place], [place] [address] SUPPORT CENTER [place] [address] Laboratory Medicine and Pathology [address] [place] [address] Dr. [place] (ABNORMAL) Glucose, POCT (11/28/2020 9:40 PM CDT) Analysis Performed At [facility] logist Time Signature Glucose, POCT, 183 (H) [...] City/State/ZIP Code Phon e Number POC [facility] [address] [place] [address] [place] [address] [facility] 200 [facility] Osmolality, Urine (11/28/2020 9:26 PM CDT) athologist Signature Osmolality, U 571 150 - 1150 11/28/2020 DTL mOsm/kg 11:17 PM CDT Specimen Anatomical Collection Method Collection Time Receive d Time (Source) Location / / Volume Laterality Urine 11/28/2020 9:26 PM 9:51 CDT PM CDT Priscilla Delgado APRN, C.N.P. LAB URINE ORDERABLES Performing Organization Address City/[facility]/ZIP Code Phon e Number [facility] - [address] [place], [place] [address] [place] [address] pH, Urine (11/28/2020 9:26 PM CDT) [facility] pH, U 5.0 4.5 - 8.0 11/28/2020 11:17 DTL PM CDT Specimen Anatomical Collection Method Collection Time Receive d Time (Source) Location / / Volume Laterality Urine 11/28/2020 9:26 PM 9:51 CDT PM CDT Priscilla Delgado APRN, C.N.P. LAB URINE ORDERABLES Performing Organization Address City/State/ZIP [facility] Phon e Number [facility] - [address] [place], [place] [address] [place] [address] (ABNORMAL) Microscopic Automated (11/28/2020 9:26 PM CDT) [facility] gist Method Time Signature Microscopy Abnormal 11/28/2020 [...] Colt.N.P. LAB URINE ORDERABLES Performing Organization Address [facility] Phon e Number [facility] - [address] [place], [place] [address] [place] [employer] [facility] [place], [place] [address] [place] [address] (ABNORMAL) Dipstick, Urine (11/28/2020 9:26 PM CDT) [email or web address] Method Time Signature Hemoglobin, Large (A) Negative [...] Colt.N.P. LAB URINE ORDERABLES Performing Organization Address City/[facility] Phon e Number [facility] - [address] [place] [address] [employer] [place] [address] [place] [address] (ABNORMAL) Urinalysis with Microscopic: Urine, Midstream (11/28/2020 9:26 PM CDT) [email or web address] Method Time Signature Source Urine, Urine, 11/28/2020 [...] Laterality Urine (Urine, 11/28/2020 9:26 PM 11/29/19 9:51 Midstream) CDT PM CDT Priscilla Delgado APRN, C.N.P. LAB URINE ORDERABLES Performing Organization Address City/[facility] Phon e Number [facility] - [address] (ABNORMAL) Troponin T, 5th Generation (11/28/2020 7:52 PM CDT) P athologist Signature Troponin T, 109 (H) <=15 ng/L 11/28/2020 [facility] 5th gen 8:16 PM CDT Comment: Consider acute myocardial injur y Specimen Anatomical Collection Method Collection Time Receive d Time (Source) Location / / Volume Laterality Blood (Blood, 11/28/2020 7:52 PM 11/29/19 7:57 Venous) CDT PM CDT Norma Sanchez APRN, C.N.P., D.N.P. LAB BLOOD ADD-ON Performing Organization Address City/State/ZIP Code Phon e Number [facility] - [address] (ABNORMAL) Glucose, POCT (11/28/2020 5:07 PM CDT) [...] Address City/State/ZIP Code Phon e Number POC [facility] [address] [place] [address] [place] [address] [place] [facility] [address] Glucose, POCT (11/28/2020 1:28 PM CDT) P [...] Provider LAB POCT ORDERABLES-MANUAL Performing Organization Address City/[facility] Phon e Number POC [facility] [address] [place] [address] [place] [address] [place] [facility] [address] [facility] Glucose, POCT (11/28/2020 12:46 PM CDT) P [...] Provider LAB POCT ORDERABLES-MANUAL Performing Organization Address City/[facility]/ZIP [facility] Phon e Number POC [facility] [address] [place] [address] [place] [address] [place] [facility] [address] DX Chest Portable 1 View (11/28/2020 12:22 [...] City/State/ZIP Code Phon e Number POC [facility] [address] [place] [address] PCLX [facility] [place] [address] [place] [facility] [address] [facility] (ABNORMAL) Basic Metabolic Panel (11/28/2020 11:12 AM [...] 11/28/2020 DTL Black/ mL/min/BSA 12:16 PM CDT [place] Comment: ----ADDITIONAL INFORMATION---- Estimated GFR calculated using [...] Code Phon e Number [facility] - [address] [place], [place] [address] [place] [employer] [facility] [place] [address] Laboratories-[address] Patient Status (11/28/2020 11:12 AM CDT) [...] BLOOD NON A DD-ON Performing Organization Address City/[facility] Code Phon e Number [address] [address] [place] [address] [facility]-[address] (ABNORMAL) Blood Gas without Coox, Arterial (11/28/2020 11:12 AM CDT) athologist Signature pO2 113 (H) 83 - [...] Code Phon e Number [facility] - [address] [place], [place] [address] [place] [employer] [facility] [place] [address] [facility] [address] [place] INS TUBE THORACOSTOMY (11/28/2020 10:51 AM CDT) [...] successful: yes Complications: no apparent complications Noreen Jami M.B.B.S. PROCEDURE/MINOR SURGICAL ORD ERABLES Glucose, POCT (11/28/2020 [...] City/State/ZIP Code Phon e Number POC [facility] [address] [place] [address] PCLX [facility] [place] [address] [place] [facility] [address] DX Chest [...] the aortic arch, satisfactory. Kelsi Aguilar M.D. IMLady DIAGNOSTIC IMAGING PROCE DURES (ABNORMAL) Glucose, POCT (11/28/2020 9:17 AM CDT) athologist Signature Glucose, POCT, 228 (H) 70 - 140 11/28/2020 [facility] B mg/dL 9:19 AM CDT Specimen Anatomical Collection Method Collection Time Receive d Time (Source) Location / / Volume Laterality Blood 11/28/2020 9:17 AM 9:19 CDT AM CDT Unknown Provider LAB POCT ORDERABLES-MANUAL Performing Organization Address City/[facility]/ZIP Code Phon e Number POC [facility] [address] [place] [address] [place], [place] [address] [place] [address] (ABNORMAL) Glucose, POCT [...] LAB POCT ORDERABLES-MANUAL Performing Organization Address City/State/ZIP [facility] Phon e Number POC [facility] [address] [place] [address] [place] [address] [place] [address] (ABNORMAL) Glucose, POCT (11/28/2020 7:26 AM CDT) athologist Signature Glucose, POCT, 380 (H) 70 - 140 11/28/2020 PCL[facility] B mg/dL 7:32 AM CDT Specimen Anatomical Collection Method Collection Time Receive d Time (Source) Location / / Volume Laterality Blood 11/28/2020 7:26 AM 7:32 CDT AM CDT Unknown Provider LAB POCT ORDERABLES-MANUAL Performing Organization Address City/State/ZIP Code Phon e Number POC [facility] [address] [place] [address] PCLX [facility] [place] [address] [place] [facility] [address] DX Chest [...] Code Phon e Number [facility] - [address] [place], [place] [address] [place] [employer] [facility] [facility] [place] [address] [facility] [address] Patient Status (11/28/2020 6:23 AM CDT) P [...] Code Phon e Number [facility] - 200 [place], [place] [address] [place] [address] Laboratories-[address] Calcium, Ionized (11/28/2020 6:23 AM CDT) athologist Signature Calcium, 4.69 4.65 - 5.30 11/28/2020 [facility] Ionized, B mg/dL 6:30 AM CDT Specimen Anatomical Collection Method Collection Time Receive d Time (Source) Location / / Volume Laterality Blood (Blood, 11/28/2020 6:23 AM 11/29/19 6:27 Venous) CDT AM CDT Sheridan Good APRN, C.N.P. LAB BLOOD NON ADD-ON Performing Organization Address City/[facility] Phon e Number [facility] - [address] [place], [place] [address] [place] [address] [address] (ABNORMAL) Blood Gas without Coox, Arterial [...] AM 11/29/19 6:27 Arterial) CDT AM CDT Rachel Cárdenas APRNNLisaPLisa LAB BLOOD NON ADD-ON Performing Organization Address City/State/ZIP Code Phon e Number [facility] - [address] [place], [place] [address] [place] [employer] [facility] [facility] [place] [address] [facility] 200 [facility] (ABNORMAL) CBC with Differential, Blood (11/28/2020 6:22 AM CDT) [facility] Method Time Signature Hemoglobin 13.8 13.2 - [...] x10(9)/L Basophils 0.21 (H) 0.01 - 11/28/2020 [facility] 0.08 6:24 AM CDT x10(9)/L Specimen Anatomical Collection Method Collection Time Receive d Time (Source) Location / / Volume Laterality Blood 11/28/2020 6:22 AM 6:22 CDT AM CDT Amy Arellano LAB BLOOD ADD-ON Performing Organization Address City/State/ZIP Code Phon e Number [facility] - [address] [place], [place] [address] [place] [address] [facility] [address] [facility] (ABNORMAL) CBC with Differential, Blood (11/28/2020 6:22 AM CDT) [facility] Method Time Signature Hemoglobin 12.4 (L) [...] Laterality Blood (Blood, 11/28/2020 6:22 AM 11/29/19 21 6:30 Venous) CDT AM CDT Sheridan Good APRN, C.N.P. LAB BLOOD ADD-ON Performing Organization Address City/State/ZIP Code Phon e Number [facility] - [address] [place] [address] [place] [address] [address] (ABNORMAL) Hepatic Function Panel (11/28/2020 6:22 AM CDT) [facility] gist Method Time Signature Bilirubin, Total, S [...] Laterality Blood (Blood, 11/28/2020 6:22 AM 11/29/19 21 7:07 Venous) CDT AM CDT Sheridan Good APRN, C.N.P. LAB BLOOD ADD-ON Performing Organization Address City/[facility]/ZIP Code Phon e Number [facility] - [address] [place], [place] [address] [place] [employer] [facility] [facility] [place] [address] [facility] 200 [facility] Lactate (11/28/2020 6:22 AM CDT) athologist Signature Lactate, P 1.5 0.5 - 2.2 11/28/2020 [facility] mmol/L 6:44 AM CDT Specimen Anatomical Collection Method Collection Time Receive d Time (Source) Location / / Volume Laterality Blood (Blood, 11/28/2020 6:22 AM 11/29/19 6:28 Venous) CDT AM CDT Colt Cárdenas APRN.N.P. LAB BLOOD NON ADD-ON Performing Organization Address City/State/ZIP Code Phon e Number [facility] - [address] [place], [place] [address] [place] [employer] [facility] [facility] [place] [address] [facility] 200 [facility] (ABNORMAL) Phosphorus Inorganic (11/28/2020 6:22 AM CDT) athologist Signature Phosphorus 5.4 (H) 2.5 - 4.5 11/28/2020 DTL (Inorganic), S mg/dL 7:24 AM CDT Specimen Anatomical Collection Method Collection Time Receive d Time (Source) Location / / Volume Laterality Blood (Blood, 11/28/2020 6:22 AM 11/29/19 7:07 Venous) CDT AM CDT Sheridan Good APRN, C.N.P. LAB BLOOD ADD-ON Performing Organization Address City/State/ZIP Code Phon e Number [facility] - [address] [place], [place] [address] [place] [employer] [facility] [facility] [place] [address] [facility] [address] [facility] Magnesium (11/28/2020 6:22 AM CDT) athologist Signature Magnesium, S 2.1 1.7 - 2.3 11/28/2020 DTL mg/dL 7:24 AM CDT Specimen Anatomical Collection Method Collection Time Receive d Time (Source) Location / / Volume Laterality Blood (Blood, 11/28/2020 6:22 AM 11/29/19 21 7:07 Venous) CDT AM CDT Sheridan Good APRN, C.N.P. LAB BLOOD ADD-ON Performing Organization Address City/State/ZIP Code Phon e Number [facility] - [address] [place], [place] [address] [place] [employer] [facility] [facility] [place] [address] [facility] [address] [facility] (ABNORMAL) Basic Metabolic Panel (11/28/2020 6:22 AM [...] CDT eGFR-Black/Afri 89 >=60 11/28/2020 [facility] can [place] mL/min/BSA 6:47 AM CDT Comment: ----ADDITIONAL INFORMATION---- Estimated GFR calculated using the 2009 CKD_EPI creatinine equation. eGFR Non-Black/ 77 >=60 mL/min/BSA 6:47 AM CDT [facility] Comment: ----ADDITIONAL INFORMATION---- Estimated [...] 6:29 Venous) CDT AM CDT Sheridan Good APRN, C.N.P. LAB BLOOD ADD-ON Performing Organization Address City/[facility] Phon e Number [facility] - [address] [place], [place] [address] [place] [employer] [facility] [facility] [place] [address] [facility] [address] [facility] (ABNORMAL) Glucose, POCT (11/28/2020 6:21 AM CDT) athologist Signature Glucose, POCT, 355 (H) 70 - 140 11/28/2020 PCLX B mg/dL 7:02 AM CDT Specimen Anatomical Collection Method Collection Time Receive d Time (Source) Location / / Volume Laterality Blood 11/28/2020 6:21 AM 7:02 CDT AM CDT Unknown Provider LAB POCT ORDERABLES-MANUAL Performing Organization Address [facility] Phon e Number [facility] [address] [place] [address] [place] [address] [place] [facility] 200 [facility] Beta-Hydroxybutyrate (11/28/2020 6:17 AM CDT) athologist Signature Beta-Hydroxybut <0.1 <0.4 mmol/L 11/28/2020 DT yrate, S 11:19 AM CDT Specimen Anatomical Collection Method Collection Time Receive d Time (Source) Location / / Volume Laterality Blood (Blood, 11/28/2020 6:17 AM 11/29/19 Venous) CDT 10:02 AM CDT Aron Seymour APRN, C.N.P. LAB BLOOD ADD-ON Performing Organization Address City/[facility] Phon e Number [facility] - [address] [place], [place] [address] 05 [place] [address] [facility] 200 [facility] CT Chest without IV Contrast [...] (11/28/2020 5:45 AM CDT) Narrative Luis Santoro R.RMichele, L.R.T. - 11/28 5:45 AM CDT Luis Santoro R.RMichele, L.R.T. ? 11/28/2020 ??5:[address] arterial catheter No upper extremi ty site restrictions Date/Time: 11/28/2020 5:45 AM Performed by: Luis Santoro R.R.TLisa, L.R.TLisa Authorized by: Hubert Smith M.D. Care team members present 1. Trinidad Momin R.R.Gordo, L.R.T. 3. Luis Santoro R.RMichele, L.R.T. 5. Krystian Cason M.D. Location: ED [...] POCT ORDERABLES - DEVICE Performing Organization Address City/[facility]/ZIP Code Phon e Number POC [facility] [address] [place], [place] [address] LABS [facility] [place] [address] [place] [facility] [address] [facility] Arterial Blood Gas and Electrolytes, POCT (11/28/2020 [...] POCT ORDERABLES - DEVICE Performing Organization Address City/[facility]/ZIP Code Phon e Number [facility] - [address] [place], [place] [address] [employer] [facility] [place] [address] [facility] 200 [facility] (ABNORMAL) Troponin T, 2H/6H, 5th [...] 11/29/19 5:43 Venous) CDT AM CDT Narrative [facility] - 11/28/2020 11:38 AM CDT Specimen Information: Specimen ID: [id number] Specimen Type: Blood Specimen Collection Start Date: ??5:36 AM Specimen Received Date: 11/28/2020 ??5:43 AM Specimen ID: [id number] Specimen Type: Blood Specimen Collection Start Date: 11:12 AM Specimen Received Date: 11/28/2020 11:17 AM Hubert Smith M.D. LAB BLOOD TROPONIN Performing Organization Address City/[facility]/ZIP [facility] [place] [facility] [address] [place], [place] [address] [place] [address] [facility] [address] (ABNORMAL) Glucose, POCT [...] City/State/ZIP Code Phon e Number POC [facility] [address] [place] [address] [place] [address] [facility] [address] Glucose, POCT (11/28/2020 5:29 AM CDT) Analysis Performed At Patho logist Time Signature Glucose, POCT, Collected DEFAULT 11/28/2020 SMLX B 5:29 AM CDT Specimen Anatomical Collection Method Collection Time Receive d Time (Source) Location / / Volume Laterality Blood (Blood, 11/28/2020 5:29 AM 11/29/19 5:29 Capillary) CDT AM CDT Hubert Smith M.D. LAB POCT ORDERABLES-MANUAL Performing Organization Address City/[facility]/ZIP Code Phon e Number [facility] - [address] [place], [place] [address] [place] [address] [facility] [address] [facility] Glucose, POCT (11/28/2020 5:29 AM CDT) Analysis Performed At Patho logist Time Signature Glucose, POCT, Collected DEFAULT 11/28/2020 SMLX B 5:29 AM CDT Specimen Anatomical Collection Method Collection Time Receive d Time (Source) Location / / Volume Laterality Blood (Blood, 11/28/2020 5:29 AM 11/29/19 5:29 Capillary) CDT AM CDT Hubert Smith M.D. LAB POCT ORDERABLES-MANUAL Performing Organization Address City/[facility]/ZIP Code Phon e Number [facility] - [address] [place], [place] [address] [place] [address] [place] [address] [address] [facility] Glucose, POCT (11/28/2020 5:29 AM CDT) Analysis Performed At Patho logist Time Signature Glucose, POCT, Collected DEFAULT 11/28/2020 SMLX B 5:29 AM CDT Specimen Anatomical Collection Method Collection Time Receive d Time (Source) Location / / Volume Laterality Blood (Blood, 11/28/2020 5:29 AM 11/29/19 5:29 Capillary) CDT AM CDT Hubert Smith M.D. LAB POCT ORDERABLES-MANUAL Performing Organization Address City/[facility]/ZIP Code Phon e Number [facility] - [address] [place], [place] [address] [place] [id number] [place] [address] (ABNORMAL) Venous Blood Gas and Electrolytes CG8+, [...] POCT ORDERABLES - DEVICE Performing Organization Address [facility]/ZIP [facility] [place]on [place] POC [facility] [address] [place], [place] [address] [place] [address] [facility] [address] [place] [address] Bacteria / Anabela Culture, Blood # 2 [...] - GENERAL O RDERABLES Performing Organization Address City/[facility] Code Phon e Number [facility] - [address] [place], [place] [address] [employer] [facility] [place], [place] [id number] [place] [address] 200 [facility] Venous Blood Gas and Electrolytes, POCT (11/28/2020 [...] POCT ORDERABLES - DEVICE Performing Organization Address City/[facility]/ZIP [facility] [place] Phon e Number [facility] - [address] [place], [place] [address] [employer] [facility] [place] [address] Bacteria / Anabela Culture, Blood #1 (11/28/2020 5:02 AM CDT) Patholo gist Method Time Signature Bacteria/Christina No growth 12/03/2020 DT da Culture, after 5 7:02 AM CDT Blood days of incubation. Specimen (Source) Anatomical Collection Method Collection Time Re ceived Time Location / / Volume Laterality Blood (Blood, 11/28/2020 5:02 11/28/2020 6:22 Peripheral Draw) AM CDT AM CDT Comment: Specimen Source Site: [facility] Krystian Cason M.D. LAB MICROBIOLOGY - GENERAL O RDERABLES Performing Organization Address City/[facility]/ZIP Code Phon e Number [id number] [place] [address] Beta-Hydroxybutyrate (11/28/2020 5:02 AM CDT) P athologist Signature Beta-Hydroxybut <0.1 <0.4 mmol/L 11/28/2020 DT yrate, S 6:05 AM CDT Specimen Anatomical Collection Method Collection Time Receive d Time (Source) Location / / Volume Laterality Blood (Blood, 11/28/2020 5:02 AM 11/29/19 21 5:40 Venous) CDT AM CDT Hubert Smith M.D. LAB BLOOD ADD-ON Performing Organization Address City/[facility]/ZIP Code Phon e Number [address] DX Chest Portable 1 View (11/28/2020 [...] Krystian Cason M.D. IMG DIAGNOSTIC IMAGING PROCE [facility] SARS Coronavirus 2, PCR Rapid, V Symptomatic (11/28/2020 4:28 AM CDT) [facility] Method Time Signature SARS CoV-2, Undetected Undetected 11/28/2020 [facility] PCR, Rapid, V 5:01 AM CDT Comment: ----ADDITIONAL INFORMATION---- This RT-PCR test was performed using the Didi SARS-CoV-2 and Influenza A/B Reagent assay from [employer], which has received Emergency Use Authori zation(EUA) by the U.S. Food and Drug Administration . Fact sheets for this Emergency Use Autho rization (EUA) assay can be found at the following link s: For Healthcare Providers: https://www.fda.gov/media/496425/downloa d For Patients: https://www.fda.gov/media/854041/downloa d SARS Coronavirus 2, Source, Rapid Swab, Nasopharynx 11/28/2020 4:32 AM CDT [facility] Specimen Anatomical Collection Method Collection Time Receive d Time (Source) Location / / Volume Laterality Varies 11/28/2020 4:28 AM 4:32 (Nasopharynx) CDT AM CDT Hubert Smith M.D. LAB MICROBIOLOGY - GENERAL O RDERABLES Performing Organization Address City/State/ZIP Code Phon e Number [facility] - [address] [place], [place] [address] [employer] [facility] [place] [address] [facility] [address] Chest Tube Insertion [...] Lactate, POCT (11/28/2020 4:14 AM CDT) athologist [facility] Lactate, POCT 1.65 0.50 - 11/28/2020 PCLX 2.20 4:51 AM CDT mmol/L Sample Site, [place] 11/28/2020 PCLX POCT 4:51 AM CDT Specimen Anatomical Collection Method Collection Time Receive d Time (Source) Location / / Volume Laterality Blood 11/28/2020 4:14 AM 4:51 CDT AM CDT Unknown Provider LAB POCT ORDERABLES - DEVICE Performing Organization Address City/State/ZIP Code Phon e Number POC [facility] [address] [place] [address] PCLX [facility] [place] [address] [place] [facility] 200 [facility] (ABNORMAL) Venous Blood Gas and Electrolytes CG8+, POCT (11/28/2020 4:13 AM CDT) athologist [facility]/28/2020 P[facility] POCT 4:51 AM CDT Comment: [...] City/State/ZIP Code Phon e Number POC [facility] [address] [place], [place] [address] LABS PCSM [facility] [place] [address] [place] [facility] [address] [place] [address] DX Chest Portable 1 View (11/28/2020 4:07 [...] rlier today. Hubert MÉNDEZ DIAGNOSTIC IMAGING PROCE [facility] DX Chest Portable 1 View (11/28/2020 3:39 [...] POCT ORDERABLES - DEVICE Performing Organization Address [facility] Phon e Number [facility] - [address] Prothrombin Time (PT) (11/28/2020 3:31 AM CDT) P athologist Signature Prothrombin 11.5 9.4 - 12.5 11/28/[facility] P sec 3:49 AM CDT INR 1.0 0.9 - 1.1 11/28/2020 [facility] 3[facility] AM CDT Comment: ----ADDITIONAL INFORMATION---- Standard intensity warfarin therapeutic range: 2.0 to 3.0 ?? High intensity warfarin therapeutic rang e: 2.5 to 3.5 Specimen Anatomical Collection Method Collection Time Receive d Time (Source) Location / / Volume Laterality Blood (Blood, 11/28/2020 3:31 AM 11/29/19 3:39 Venous) CDT AM CDT Hubert Smith M.D. LAB BLOOD ADD-ON Performing Organization Address [facility] Phon e Number [facility] - [address] Magnesium (11/28/2020 3:31 AM CDT) P athologist Signature Magnesium, S 2.1 1.7 - 2.3 11/28/2020 DTL mg/dL 4:24 AM CDT Specimen Anatomical Collection Method Collection Time Receive d Time (Source) Location / / Volume Laterality Blood (Blood, 11/28/2020 3:31 AM 11/29/19 4:02 Venous) CDT AM CDT Hubert Smith M.D. LAB BLOOD ADD-ON Performing Organization Address City/State/[facility] Phon e Number [facility] - [address] [place], [place] [address] [employer] [facility] [place] [place] [address] Laboratories-[address] (ABNORMAL) Troponin T, Baseline, 5th gen (11/28/2020 3:31 AM CDT) P athologist Signature Troponin T, 60 (H) <=15 ng/L 11/28/2020 [facility] Baseline, 5th 3:56 AM CDT gen Specimen Anatomical Collection Method Collection Time Receive d Time (Source) Location / / Volume Laterality Blood (Blood, 11/28/2020 3:31 AM 11/29/19 3:40 Venous) CDT AM CDT Hubert Smith M.D. LAB BLOOD TROPONIN Performing Organization Address City/[facility] Phon e Number [facility] - [address] [place], [place] [address] [place] [address] (ABNORMAL) Hepatic Function Panel (11/28/2020 3:31 [...] Code Phon e Number [facility] - [address] [place], [place] [address] [employer] [facility] [place] [address] [facility] [address] (ABNORMAL) NT-Pro B-Type Natriuretic Peptide (BNP) (11/28/2020 3:31 AM CDT) athologist Signature NT-Pro BNP 1197 (H) 5 [...] Code Phon e Number [facility] - [address] [place], [place] [address] [place] [address] [facility] 200 [facility] (ABNORMAL) Basic Metabolic Panel (11/28/2020 [...] CDT eGFR-Black/Afri >90 >=60 11/28/2020 [facility] can [place] mL/min/BSA 4:31 AM CDT Comment: REVISED RESULTS [...] - 10.0 mg/dL 11/28/2020 4:31 AM CDT [facility] Comment: ----PREVIOUSLY REPORTED ---- Demographics adjusted: Ref [...] Code Phon e Number [facility] - [address] [place], [place] [address] [place] [address] [facility] 200 [facility] CBC with Differential, Blood (11/28/2020 3:31 AM CDT) athologist Signature Hemoglobin CANCELED 13.2 - 16.6 11/28/2020 [facility] g/dL 6:12 AM CDT Comment: REVISED RESULTS ----PREVIOUSLY REPORTED ---- 13.9, Flagged as: Normal (Reported 11/28/2020 03:42) Hematocrit CANCELED 38.3 - 48.6 % 11/28/2020 6:[address] [facility] Comment: REVISED RESULTS ----PREVIOUSLY REPORTED ---- 44.7, Flagged as: Normal (Reported 11/28/2020 03:42) Erythrocytes CANCELED 4.35 - 5.65 x10(12)/L 11/28/2020 6:12 AM CDT [facility] Comment: REVISED RESULTS ----PREVIOUSLY REPORTED ---- 4.97, Flagged as: Normal (Reported 11/28/2020 03:42) MCV CANCELED 78.2 - 97.9 fL 11/28/2020 6:[address] [facility] Comment: REVISED RESULTS ----PREVIOUSLY REPORTED ---- 89.9, Flagged as: Normal (Reported 11/28/2020 03:42) RBC Distrib Width CANCELED 11.8 - 14.5 % 11/28/2020 6:12 AM CDT [facility] Comment: REVISED RESULTS ----PREVIOUSLY REPORTED ---- 14.1, Flagged as: Normal (Reported 11/28/2020 03:42) Platelet Count CANCELED 135 - 317 x10(9)/L 11/28/2020 6:12 AM CDT [facility] Comment: REVISED RESULTS ----PREVIOUSLY REPORTED ---- 355, [...] Lymphocytes CANCELED x10(9)/L 11/28/2020 6:12 AM CDT [facility] Comment: Result canceled by the ancillar y. Monocytes CANCELED x10(9)/L 11/28/2020 6:12 AM CDT [facility] Comment: Result canceled by the ancillar y. Eosinophils CANCELED x10(9)/L 11/28/2020 6:12 AM CDT [facility] Comment: Result canceled by the ancillar y. Basophils CANCELED x10(9)/L 11/28/2020 6:12 AM CDT [facility] Comment: Result canceled by the ancillar y. Specimen Anatomical Collection Method Collection Time Receive d Time (Source) Location / / Volume Laterality Blood (Blood, 11/28/2020 3:31 AM 11/29/19 3:40 Venous) CDT AM CDT Narrative [facility] - 11/28/2020 6:12 AM CDT CBC with Differential, B was cancelled on 11/28/2020 at 06:12; Duplicate test request. !CNCL! Hubert Smith M.D. LAB BLOOD ADD-ON Performing Organization Address City/State/ZIP Code Phon e Number [facility] - [address] [place], [place] [address] [employer] [facility] [place] [address] [facility] [address] [facility] [place] [address] [facility] [address] [facility] Blood Gas, Venous, POCT (11/28/2020 3:31 AM [...] POCT ORDERABLES - DEVICE Performing Organization Address City/[facility] Phon e Number [facility] - [address] [place], [place] [address] [employer] [facility] [facility] [place] [address] [facility] [address] [facility] (ABNORMAL) Lactate, POCT (11/28/2020 3:29 AM CDT) [...] POCT ORDERABLES - DEVICE Performing Organization Address City/[facility]/ZIP [facility] [place] [place]on [place] Number POC [facility] [address] [place] [address] [place] [address] [facility] [address] [facility] (ABNORMAL) Venous Blood Gas and Electrolytes CG8+, POCT (11/28/2020 3:28 AM CDT) P athologist Signature Sample Site, [facility] 11/28/2020 PCSM POCT 3:42 AM CDT Comment: [...] Code Phon e Number POC [facility] [address] [place], [place] [address] LABS PCSM [facility] [place] [address] [place] [facility] [address] ECG 12 Lead (11/28/2020 3:24 AM CDT) P athologist Signature Ventricular Rate 115 BPM MUSE ECG/Min OK Interval 140 ms MUSE QRSD Interval 92 ms MUSE QT Interval 334 ms MUSE QTC Interval 462 ms MUSE P [place] 76 degrees MUSE R [place] 64 degrees MUSE T Wave [place] 78 degrees MUSE Specimen Anatomical Collection Method [...] Smith M.D. ECG ORDERABLES Performing Organization Address City/[facility]/ZIP Code Phon e Number MUSE MUSE NA ECG 12 Lead (11/28/2020 3:24 AM CDT) P athologist Signature Ventricular Rate 115 BPM MUSE ECG/Min OK Interval 140 ms MUSE QRSD Interval 92 ms MUSE QT Interval 334 ms MUSE QTC Interval 462 ms MUSE P [place] 76 degrees MUSE R [place] 64 degrees MUSE T Wave [place] 78 degrees MUSE Specimen Anatomical Collection Method Collection Time Receive d Time (Source) Location / / Volume Laterality 11/28/2020 3:24 AM 1 3:55 CDT AM CDT Impressions MUSE - [...] 2.20 12:50 PM CDT mmol/L Sample Site, [facility] 12/01/2020 PCLX POCT 12:50 PM CDT Specimen Anatomical Collection Method Collection Time Receive d Time (Source) Location / / Volume Laterality Blood 11/28/2020 3:04 AM CDT 12:49 PM CDT Generic Rals LAB POCT ORDERABLES - DEVICE Performing Organization Address City/State/ZIP Code Phon e Number POC [facility] [address] [place] [address] PCLX [facility] [place] [address] [place] [facility] [address] (ABNORMAL) Blood Gas and Electrolytes CG8+, Point of Care, [place] In[facility], Vascular Access Gear Hobber Set Up Operator (11/28/2020 3:02 AM CDT) athologist Signature Sample Site, [facility] 12/01/2020 PCLX POCT 12:40 PM CDT Comment: [...] City/State/ZIP Code Phon e Number POC [facility] [address] [place] [address] PCLX [facility] [place] [address] [place] [facility] [address] documented in this encounter Visit Diagnoses Diagnosis Edema Pulmonary (HCC) - Primary Edema Pulmonary (HCC) Other Pneumothorax Myocardial Infarction 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 Angina Pectoris (Stable Angina/Angina Of Exertion) (HCC) Acute Respiratory Failure With Hypoxia ( HCC) Hypoxemia Diabetes Mellitus Type 2 Hyperglycemia ( HCC) Hypertension Essential Primary Coronary Stent Status Post Acute Respiratory Failure With Hypercapn ia (HCC) Acute Respiratory Failure With Hypoxia ( HCC) Atherosclerotic Heart Disease [place] Cor onary Artery With Other Forms Angina Pectoris (Stable Angina/Angina Of Exertion) (HCC) Pneumothorax Unspecified Atherosclerotic Heart Disease [place] Cor onary Artery With Other Forms Angina Pectoris (Stable Angina/Angina Of Exertion) (HCC) documented in this encounter Admitting Diagnoses Diagnosis Edema Pulmonary (HCC) Atherosclerotic Heart Disease [place] Cor onary Artery With Other Forms Angina [...] 75 mg, oral, Daily, First dose on 12/03/20 at 0900 Given 12/04/2020 8:03 AM CDT [...] 25 mg 25 mg, oral, Once, On Sat12/03/20 at 1230, For 1 dose losartan tablet [...] bedtime, First dose on Sat12/01/20 at 2100 Given 12/03/2020 8:22 PM CDT [...] Given 12/04/2020 8:03 AM CDT 50 mg jegbpnffbvsa-xftq-ZS-Ca-minerals 400 mcg Given 12/05/2020 8:32 A M [...] of 10, Starting on 12/03/20 at 0722 Given 12/05/2020 12:58 PM CDT [...] Provider: Luis Bautista R.N.)0908 (Given - Provider: Katelyn Johnson, R.N., CNL)1524 (Not Given - Provider: Katelyn Johnson, R.N., CNL - Reason: Patient/family refused) 0248 (Given - Provider: Leora hunter RLisaN.)0946 (Given - Provider: Linda JohnsonSLisaN., R.N., CNL)1547 (Given - Provider: Linda JohnsonSKristin, R.N., CNL)2145 (Given - Provider: Leora Cho RLisaNLisa) 0323 (Given - Provider: Leora Cho RLisaN.)0903 (Given - Provider: Sydni Sun RLisaNLisa)1548 (Given - Provider: Analia Das RLisaNLisa) 1,000 mg, oral, Every 6 hours, First dos e (after last modification) on Sat11/29/20 at 1545 2126 (Given - Provider: Leora Cho R.N.) aspirin DR tablet 81 mg 2021 (Given - Provider: Carrie MillsNLisa) 214 (Given - Provider: Leora J Duttenhefer, R.N.) 81 mg, oral, Daily at bedtime, [...] (PLAVIX) 0800 (Given - Provid er: Linda JohnsonSLisaNLisa, R.N., CNL) 0803 (Given - Provider: Katelyn Johnson, R.N., MARCOSL) 0832 (Given - Provider: Sydni Sun R.N.) 75 mg, oral, Daily, First dose on Sat12/03/20 at 0900 heparin (porcine) injection 5,000 Units 0626 (Given - Provider: Luis Bautista R.N.)1409 (Given - Provider: Linda JohnsonSLisaNLisa, R.N., CNL)212 (Given - Provider: Leora Cho R.N.) 0635 [...] FlexPen) 0901 (Given - Provider: Linda JohnsonS.NLisa, R.N., CNL)1304 (Given - Provider: Vaida V. Sepkus, M.S.N., R.N., CNL - Comment: ordered late)192 (Given - Provider: Leora Cho R.N. - Comment: eating dinner now) 0904 (Given - Provider: Linda JohnsonS.NLisa, R.N., CNL)1238 (Given - Provider: Linda JohnsonS.NLisa, R.N., CNL)193 (Given - Provider: Leora Cho R.N. [...] parameters not met)1107 (Given - Provider: Linda JohnsonS.N., R.N., CNL)1924 (Given - Provider: Leora Cho R.N. - Comment: eating dinner now) 0801 (Not Given - Provider: Linda JohnsonS.NLisa, R.N., CNL - Reason: Order parameters not met)1235 (Given - Provider: Kaila Johnson.S.N., R.N., CNL) 0900 (Not Given - Provider: [...] - 1 754 (Not Given - Provider: Katelyn Johnson, Chandan.NLisa, [place] - Reason: Order parameters not met) 339: 10 units, 340 - 379: 12 units, 380 - 399: 13 units, Greater than 399: Call service writing Insulin orders insulin glargine injection 8 Units 2125 (Given - Provi monse: Leora Cho R.N.) 2099 (Given - Provider: Leora Cho R.N.) 8 Units, subcutaneous, Daily at bedtime, First dose (after last modification) on Sat12/02/20 at 2100 lidocaine 5 % 1 patch (LIDODERM) 0800 (Medication Appl ied - Provider: Katelyn Johnson, Dayna, [place])2037 (Medication Removed - Provider: Leora Cho R.N.) 0803 (Medication Applied - Provider: Katelyn Brunson, RKristin, [place])2020 (Medication Removed - Provider: Leora Cho R.N.) 0832 (Medication Applied - Provider: Sydni Sun R.N.)1637 (Due: Medication Removed - Provider: Discharge Provider, Automatic - Comment: Time automatically adjusted from order being discontinued) 1 patch, transdermal, Administer over 12 Hours, Daily, First dose on Sat11/28/20 at 1245, Remove after 12 hours. losartan tablet 100 mg (COZAAR) 0803 (Gi laxmi - Provider: Katelyn Johnson, R.NLisa, MARCOSL) 0832 (Given - Provider: Sydni Sun R.N.) 100 mg, oral, Daily, First dose (after last modificati on) on 12/04/20 at 0900 losartan tablet 25 mg (COZAAR) (COMPLETED) 1501 (Given - Provider: Jim Bradley M.S.NLisa, R.NLisa, MARCOSL) 25 mg, oral, Once, On 12/03/20 at 1230, For 1 dose losartan tablet 50 mg (COZAAR) (CANCELED) 0800 (Given - Provider: Jim Bradley M.S.NLisa, R.NLisa, [place]) 50 mg, oral, Daily, First dose (after last modification) on Sat11/29/20 at 0900 melatonin tablet 5 mg 2021 (Given - Provider: Leora mccollum R.N.) 2144 (Given - Provider: Leora Cho R.N.) 5 mg, oral, Daily at bedtime, First dose on [place] 12/01/20 at 2100 metoprolol tartrate tablet 25 mg (LOPRESSOR) (CANCELED ) 08 (Given - Provider: Jim Bradley M.S.NLisa, R.NLisa, [place]) 25 mg, oral, 2 times daily, First dose on Sat11/28/20 at 2100 metoprolol tartrate tablet 50 mg (LOPRESSOR) 2021 (Giv en - Provider: Leora Cho R.N.) 08 (Given - Provider: Katelyn Johnson, R.NLisa, [place])2145 (Given - Provider: Leora Cho R.N.) 0832 (Given - Provider: Sydni Sun R.N.) 50 mg, oral, 2 times daily, First dose ( after last modification) on 12/03/20 at 2100 cezerhawnnkl-exkc-YN-Ca-minerals 400 mcg (folic acid) tablet 1 tablet (THERAPEUTIC-M) 0800 (Given - Provider: Kaila Johnson.S.N., R.N., MARCOSL) 0803 (Given - Provider: Linda JohnsonS.NLisa, R.N., [place]) 0832 (Given - Provider: Sydni Sun R.N.) 1 tablet, oral, Daily, First dose on Sat11/29/20 at 0900 nicotine 21 mg/24 hr 1 patch (NICODERM CQ) 0808 (Not G iven - Provider: Jim Bradley M.S.N., CarrieNLisa, [place] - Reason: Patient/family refused) 08 (Not Given - Provider: Katelyn Johnson, Dayna, [place] - Reason: Patient/family refused) 0831 (Not Given - Provider: Sydni Sun R.N. - Reason: Patient/family refused) 1 patch, transdermal, Administer over 24 Hours, Daily, First dose on Sat11/29/[address] tablet 40 mg (PROTONIX) 06 (Given - Provider: Luis Bautista R.N.) 0635 (Given - Provider: Leora Cho R.N.) 06 (Given - Provider: Leora Cho R.N.) 40 mg, oral, Daily before breakfast, Fir st dose on Sat11/30/20 at 0700, pantoprazole 40 mg oral daily was interchanged for omeprazole 20 or 40 mg oral daily Swallow whole. Do NOT crush, chew, or split tablet. polyethylene glycol powder packet 17 g (MIRALAX) 08 (Given - Provider: Katelyn Johnson, Dayna, [place]) 08 (Given - Provider: Katelyn Johnson, Chandan.Jessica, [place]) 08 (Given - Provider: Sydni Sun R.N.) 17 g, oral, Daily, First dose (after las t modification) on Sat12/02/20 at 0900, Dissolve in 240 mLs (8 ounces) of water prior to giving. Avoid mixing with starch-based thickened liquids. sennosides-docusate sodium 8.6-50 mg per tablet 2 tabl et (SENOKOT-S) 0800 (Given - Provider: Katelyn Johnson, R.NLisa, MARCOSL)2043 (Not Given - Provider: Leora Cho R.N. - Reason: Patient/family refused) 08 (Given - Provider: Katelyn Johnson, Chandan.Jessica, CNL)2145 (Given - Provider: Leora Cho R.N.) 0831 (Given - Provider: Sydni Sun R.N.) 2 tablet, oral, 2 times daily, First dos e (after last modification) on Sat12/02/20 at 0900 sodium chloride 0.9 % injection 10 mL 0900 (Given - Pr ovider: Linda JohnsonSLisaNLisa, R.NLisa, CNL)212 (Given - Provider: Leora Cho R.N.) 08 (Given - Provider: Jim Bradley M.S.NLisa, R.NLisa, MARCOSL)222 (Given - Provider: Leora Cho R.N.) 0833 [...] 1 % cream 1 application ( BENADRYL) 2219 (Given - Provider: Leora Cho R.N.) 1235 (Given - Provider: Katelyn Johnson, R.NLisa, MARCOSL)2145 (Given - Provider: Leora Cho R.N.)214 (Given - Provider: Leora Cho R.N.) 1 application, topical, 3 times daily OK N, itching, irritation, rash, Starting on Sat12/03/20 [...] Kaila Johnson.S.N., R.N., CNL)1409 (Given - Provider: Kaila Johnson.S.N., R.N., CNL)1722 (Given - Provider: Kaila Johnson.S.N., R.N., CNL) 0248 (Given - Provider: Leora Cho, R.N.)0635 (Given - Provider: Leora Cho R.N.)0946 (Given - Provider: Kaila Johnson.S.N., R.N., CNL)1235 [...] 0722 2022 (Given - Provider: Leora Cho RLisaNLisa)2324 (Given - Provider: Carrie RaglandN.) 1547 (Given - Provider: Katelyn Johnson, R.N., [facility])193 (Given - Provider: Leora Cho RWendie.)2224 (Given - Provider: Leora Cho R.N.) documented in this encounter Additional Health Concerns Infection Onset Date Last Indicated Resolved Time COVID19 Pending 11/28/2020 11/28/2020 11/28/2020 5:01 AM CDT documented as of this encounter
--- OUTSIDE RECORDS SUMMARY | 2022-04-02 19:43 | XMS_ITS | Encounter Summary ---
:1965 Author Organization [facility] Address [address] [place] [address] Care Team Providers Name Role Phone Unavailable [...] Pulmonary Medicine Mario Pitt M.D. [address] [place] [phone] 05/23/2022 Office Visit Cardiovascular Disease Osman Wesley M.D. [address] [place] [address] documented as of this encounter Visit Diagnoses Not on filedocumented in this encounter
--- OUTSIDE RECORDS SUMMARY | 2022-04-02 19:43 | XMS_ITS | Encounter Summary ---
:1965 Author Organization [facility] Address [address] [place] [address] Care Team Providers Name Role Phone Unavailable [...] Pulmonary Medicine Mario Pitt M.D. [address] [place] [address] 05/23/2022 Office Visit Cardiovascular Disease Osman Wesley M.D. [address] [place] [address] documented as of this encounter Procedures Procedure [...] [id number] Electronically signed by: Bob Simpson M.D. [id number] 31-Dec-2002 14:40 Sunny Camacho M.D. IMG CT PROCEDURES Hx general Pathology Report (12/31/2002 12:15 PM CDT) Specimen Anatomical Collection Method Collection Time Receive d Time (Source) Location / / Volume Laterality 12/31/2002 12:15 12/31/2002 PM CDT 12:15 PM CDT Narrative [facility] - 12/31/2002 12:15 PM CDT ?12/31/2002 General Biopsy ? ([id number]) ? Requested By: ??Sunny Camacho M.D. ??[phone] ?? Additional Physician: ??Joseph ramirez M.D. [id number] ? TISSUE DESCRIPTION: [id number] A1 ?? A. ??Antrum, Stomach biopsy: ??( 7 piec es 0.2-0.4 cm. in diameter) ?DIAGNOSIS: ?? Stomach, antrum, endoscopic biopsy: ??N ormal antral and fundic mucosa. ? 01/01/03 ??Thad Kemp M.D. [phone] ? Procedure Note 07/20/2017 12/31/2002 General Biopsy ([id number]) Requested By: Sunny Camacho M.D. [phone] Additional Physician: Joseph santacruz M.D. [phone] TISSUE DESCRIPTION: [id number] A1 A. Antrum, Stomach biopsy: ( 7 pieces 0 .2-0.4 cm. in diameter) DIAGNOSIS: Stomach, antrum, endoscopic biopsy: Nor mal antral and fundic mucosa. 01/01/03 Thad Kemp M.D. [phone] Historical Provider LAB PATHOLOGY/CYTOLOGY ORDER GRECIA Performing Organization Address City/[facility] Code Phon e Number [facility] - [address] PUL Home Overnight Oximetry (12/30/2002 10:01 PM CDT) Specimen (Source) Anatomical Collection Method Collection Time Re ceived Time Location / / Volume Laterality 12/30/2002 10:01 PM CDT Papito Villarreal M.D., Ph.D. PFT ORDERABLES Performing Organization Address [facility]/ZIP Code Phon e Number [facility] - [address] documented in this encounter Visit Diagnoses Not on filedocumented in this encounter
--- OUTSIDE RECORDS SUMMARY | 2022-04-02 19:43 | XMS_ITS | Encounter Summary ---
:1965 Author Organization [facility] Address [address] [place] [address] Care Team Providers Name Role Phone Unavailable Primary Care Provider Unavailable Reason for Visit Reason Comments Chest Pain Bradycardia Encounter Details Date Type Department Care Team Description 12/02/2020 Surgery Division of Cardiovascular Raphael Holman, Coronary Angiography Diseases in [place], M.B., B.C h. [address] [place], [place] [phone] (Wo rk) Social History Tobacco [...] More than 4 times per year 02/09/2021 jainism services? Do you belong to any clubs [...] PM CDT DISCHARGE SUMMARY BRIEF OVERVIEW Hospital: [facility] Discharge Provider: Isidro Powell M.D. Primary Team: [facility] Hospital Admission Date: 11/28/2020 Discharge Date: 12/05/2020 PRINCIPAL DIAGNOSIS Edema Pulmonary (HCC) SECONDARY DIAGNOSES Principal Problem: Multifactorial hypoxia Active Problems: Diabetes Mellitus Type 2 Hyperglycemia (HCC) Hypertension Essential Primary Coronary Stent Status Post Acute Respiratory Failure With Hypercapnia (HCC) Acute Respiratory Failure With Hypoxia (HCC) Atherosclerotic Heart Disease [place] Coronary Artery With Other Forms Angina Pectoris (Stable Angina/Angina Of Exertion) (HCC) Acute on chronic systolic heart failure Pneumothorax Unspecified Resolved Problems: * No resolved hospital problems. * Surgery Information This Encounter Past Procedures (12/05/2019 to Today) Date Procedures Providers Location 12/02/2020 Coronary Angiography Luis Wells M.D.Omer, Mohamed A, M.B., B.Ch. [facility] ROMB CCL DISCHARGE DISPOSITION Home or [...] - Requires outpatient f/u with PCP in [place]. OUTPATIENT FOLLOW UP For appointment details refer to your Patient Appointment Guide. TEST RESULTS PENDING AT DISCHARGE Pending Labs None DETAILS OF HOSPITAL STAY REASON FOR ADMISSION Edema Pulmonary (HCC) Other Pneumothorax HOSPITAL COURSE Mr. Fairbanks with history of hypertension and a recent cardiac stents placed in December presented with respiratory arrest. He is from [place] and woke up day of admission with acute onset shortness ofbreath that Mr. Fairbanks described as wet. He also reportedly noted left arm tingling and pain and was concerned he was having a heart attack. His fiance drove him to the nearest gas station where they called EMS. He arrived to the [facility] ED with Francisco Annamaria. On scene he [...] regions. Prior ECHO results from the patient's picc nurse showed an EF of 50-55% with similar [...] coronary stent and active essential hypertension. Diabetes career services representative educated patient on diabetes management and devised a discharge medical therapy regimen. CONSULTS ORDERED DURING THIS ADMISSION IP CONSULT TO THORACIC SURGERY IP CONSULT TO CONTACT AGENT SALES AND SERVICE SPECIALIST IP CONSULT TO DIABETES IP CONSULT TO DIETITIAN IP CONSULT TO HELMET BINDER IP CONSULT TO CARDIOLOGY IP CONSULT TO [...] presented with respiratory arrest. He is from [place] and woke up this morning with acute onset shortness of breath that Mr. Fiarbanks described as wet. He also reportedly noted left arm tingling and pain and was concerned he was having a heart attack. His fiance drove him to the nearest gas station where they called EMS. He arrived to the [facility] ED with [facility]. On scene he was diaphoretic and [...] management, yearly follow up with a local Glue Size Machine Operator and Dietitian is recommended. Please check with your insurance company asdiabetes education visits are commonly covered. Your primary care provider can provide referrals foreducation. AttachmentsThe following attachments cannot be sent through Care Everywhere. Metformin (By mouth) (Nigerian)Clopidogrel (By mouth) (Nigerian)Acetaminophen (By mouth) (Nigerian)Oxycodone/Acetaminophen (By mouth) (Nigerian)Metoprolol (By mouth) (Nigerian)Pantoprazole (By mouth) (Nigerian)documented in this encounter Medications at Time of [...] [facility]. metoprolol succinate TAKE 1 TABLET [...] meter, testing supplies and Metformin sent to [facility]. Discussed above plan with patient who is alert and oriented and in agreement. DCS Pager [phone] will continue to follow. Call primary service for diabetes concerns between [phone]. Primary service to contact DCS via hospital pipe smoking machine operator for questions. Liv Martins R.R.T., L.R.T. - [...] Christian Che - 12/05/2020 7:33 AM CDT [facility] PROGRESS NOTE SUBJECTIVE Mr. Fairbanks was resting [...] intact. No evidence of disorganizedthinking. 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 DIAGNOSTICS I have personally reviewed the laboratory data and imaging since admission, and in/outs for past 72 hours. (12/05/20) Nocturnal Home Oxygen Assessment: Requires 1L NC supplemental oxygen. 87% RA asleep. (12/05/20) Daytime Home Oxygen Assessment: Does not require supplemental oxygen. 94% RA quiet wakefulness and 93% RA on activity. ASSESSMENT / PLAN Mr. Fairbanks is hospitalized on [facility] for evaluation and management of multifactorial hypoxemia in the setting of left-sided pneumothorax, lung injury from pleural catheter placement, probable community- acquired pneumonia, and cardiogenic pulmonary edema from acute coronary event 11/25. Plan to d/c on 1L NC for sleep requirements. Plan to discharge today afternoon. Organize f/u with PCP in [place]. #1??Coronary artery disease with ischemic cardiomyopathy with??acute [...] 200mg OD. - Requires outpatient f/u with picc nurse from [place]. #3??Left pneumothorax-possibly??iatrogenic??after needle decompression attempt for suspected [...] to discharge criteria: Met Plan discussed with [facility] Oracle E Business Developer, Chase Hernandez Jr., M.D., whowas present during rosales portions of the evaluation today. Please page the [facility] service pager at #[phone] with any questions. Enjoy today Christian Che Medical Student #[id number] Associated attestation - Chase Goldstein Jr., M.D. [...] 12/04/2020 2:31 PM CDT SUBJECTIVE I met [id number] with and examined Mr. Fairbanks. I participated [...] Christian Alicea - 12/04/2020 8:12 AM CDT [facility] Pulmonary Medicine [facility] PROGRESS NOTE SUBJECTIVE Mr. Fairbanks was [...] intact. No evidence of disorganizedthinking. 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 DIAGNOSTICS I have personally reviewed the laboratory [...] / PLAN Mr. Fairbanks is hospitalized on [facility] Pulmonary Medicine [facility] for evaluation and management of multifactorial [...] signs and Functional status Plan discussed with [facility] Oracle E Business Developer, Isidro Hough M.D., who was present during rosales portions of the evaluation today. Please page the [facility] service pager at #[phone] with any questions. Enjoy today, Christian Che Medical Student #[id number] Desiree Stone M.D. - 12/03/2020 12:24 PM [...] further evaluation is warranted locally or at [facility] per patient preference and depending on clinical status. We will sign off. Please page the IP??Consult service at [phone]??with any questions or concerns. ?? The above [...] do not hesitate to call us at [phone] if we can be of further assistance. [...] distal to the stent but with good QUEYN III flow, additionally he has a 60% [...] closer to home or up here in [place] if desired. Certainly if he has further [...] another goodoption - Follow up with home picc nurse within a couple weeks, If he would like to be seen here in [place] in a couple months we can facilitate [...] No evidence of disorganized thinking. 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 DIAGNOSTICS I have personally reviewed laboratory data, cultures, imaging, and ECGs since admission, with rosales findings discussed below in the assessment and plan. ASSESSMENT / PLAN Mr. Fairbanks is hospitalized on [facility] for evaluation and [...] met): oxygen requirements Plan discussed with Pulmonology Oracle E Business Developer, Isidro Hough M.D., who was present during the rosales portions of the evaluation today. Please page the Pulmonology service pager at [phone] with any questions. Associated attestation - Isidro Powell M.D. - 12/03/2020 2:12 PM CDT I met [id number] with and examined Mr. Fairbanks. I participated [...] follow. ??Please page the IP??Consult service at [phone]??with any questions orconcerns. ?? The above patient was discussed with ??Jonathan??who is??in agreement??with??the above??plan. Isidro Powell M.D. - 12/02/2020 3:48 PM CDT SUBJECTIVE I met [id number] with and examined Mr. Fairbanks. I participated [...] Registered Dietitian can be reached at pager: [phone] Joe Mahmood M.D. - 12/02/2020 1:08 PM [...] Christian Che - 12/02/2020 6:31 AM CDT [facility] Pul[facility] Hospital PROGRESS NOTE SUBJECTIVE [...] are audible with no added heart sounds. George beat was not appreciated. No visible JVP distension present. Abdomen: Persistently distended. Passing flatulence but not stool since 11/28 currently on laxatives. Soft, nontender, non rigid, no guarding present. No organomegaly or masses palpated. Bowel sounds arenormoactive diffusely. Mental: Mood and affect congruent. Alert and oriented. Attention intact. No evidence of disorganizedthinking. 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 DIAGNOSTICS I have personally reviewed the laboratory data and imaging since admission, and in/outs for past 72 hours. Lab results remained relatively stable today. WCC 11.3 (previous 12.3). Neutrophils 6.99 (prevoius 8.94). CXR showed persistent left nkldz-mi-[id number] pneumothorax without mediastinal shift. Retrocardiac consolidation. Bibasilar atelectasis and probable trace left pleural effusion. Decreased left lateral chest wall subcutaneous emphysema. ASSESSMENT / PLAN Mr. Fairbanks is a 55 y.o. pleasant gentleman with a history of multivessel CAD currently hospitalized on [facility] for evaluation and [...] continuous use. Team discussed non-rebreather use following crown and bridge dental lab technician to i) improve SaO2 levels ii) provide benefit for current pneumothorax. - Currently at crown and bridge dental lab technician for diagnostic +-therapeutic coronary angiography [...] Fairbanks was educated by a nurse practitioner resident associate on diabetes management??and commenced on insulin. Provided [...] Patient currently has no active PCP in [place] or [place]. External picc nurse provided patient with information for a PCP in [place]. Advised patient on ways our service can [...] criteria (not met): Tests/procedures/consults Please page the [facility] service pager at #[phone] if you have any questions orconcerns. Plan discussed with [facility] Medicine [facility] Oracle E Business Developer, Isidro Hough M.D., who was present during rosales portions of the evaluation today. Enjoy today, Christian Che Medical Student #[id number] Isidro Powell M.D. - 12/01/2020 6:10 PM CDT SUBJECTIVE I met [id number] with and examined Mr. Fairbanks. I participated [...] provided to and reviewed with patient/family. Disclaimers: [facility] Quality Providers: Patients and/or family/responsible libertarian have been provided thelist of Providers that share their quality measures with [facility]. Reviewed insurance coverage, provided patient with in-network options if applicable. Patient/family have indicated a preference for the facility/agency below. patient declined additional resources. OBJECTIVE Anticipated modifications to the home environment: The patient's family will provide transportation upon discharge. The patient and family will drive to his home in [place]. It is about a [address] The oxygen company is aware of this. Minda reports they can service his oxygen needs in [place], [place] as well as in at his home in [place]. Patient requires the following additional equipment upon [...] Selected Services Address Phone Fax Patient Preferred [facility] [employer] [address] [address] [phone] -- Contact: Intake Portable tanks for transport [...] meter, testing supplies and Metformin sent to [facility]. Discussed above plan with patient who is alert and oriented and in agreement. DCS Pager [phone] will continue to follow. Call primary service for diabetes concerns between [phone]. Primary service to contact DCS via hospital pipe smoking machine operator for questions. Christian Che - 12/01/2020 11:05 AM CDT [facility] Pulmonary Medicine [facility] PROGRESS NOTE SUBJECTIVE Mr. Fairbanks is [...] No lower extremity edema. No raised JVP. George beat was not appreciated. Abdomen: Mildly distended. Soft, flat, bowel sounds normoactive, nontender, nondistended, no palpable masses or organomegaly. Mental: Mood and affect congruent. Alert and oriented. Attention intact. No evidence of disorganizedthinking. 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 DIAGNOSTICS I have personally reviewed the laboratory [...] / PLAN Mr. Fairbanks is hospitalized on [facility] for evaluation and [...] Fairbanks was educated by a nurse practitioner resident associate on diabetes management and commenced on insulin. Provided with a management plan following discharge. ?? clinical unit educator and dietitian consult are pending. ? [...] patient and offered advice. Patient stated his picc nurse suggested a PCP in [place], [place]. Advised patient on waysour service can [...] criteria (not met): Tests/procedures/consults Plan discussed with [facility] Oracle E Business Developer, Isidro Hough M.D., who was present during rosales portions of the evaluation today. Please page the [facility] service pager at #[phone] if you have any questions. Yours sincerely, Christian Che Medical Student #[id number] Christian Ascencio M.D. - 12/01/2020 10:51 AM [...] 11/30/2020 1:57 PM CDT SUBJECTIVE I met [id number] with and examined Mr. Fairbanks. I participated [...] Christian Che - 11/30/2020 11:44 AM CDT [facility] Pulmonary Medicine [facility] PROGRESS NOTE SUBJECTIVE Mr. Fairbanks is [...] No lower extremity edema. No raised JVP. George beat was not appreciated. Abdomen: Distended. Soft, flat, bowel sounds normoactive, nontender, nondistended, no palpable masses or organomegaly. ENT: Hearing grossly intact. Dentition intact. No oral or pharyngeal erythema or lesions noted. Mental: Mood and affect congruent. Alert and oriented. Attention intact. No evidence of disorganizedthinking. 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 DIAGNOSTICS I have personally reviewed the laboratory [...] / PLAN Mr. Fairbanks is hospitalized on [facility] Pulmonary Medicine [facility] for evaluation and management of Edema [...] Primary ?? Received documentation from Mr. Fairbanks's picc nurse for previous ECHO studies regarding cardiac stenting [...] Diabetes Mellitus Type 2 Hyperglycemia A1c 10.3% ([facility]) ?? Mr. Fairbanks was educated by a nurse practitioner resident associate on diabetes management and commenced on insulin. clinical unit educator and dietitian consult are pending. ? [...] patient and offered advice. Patient stated his picc nurse suggested a PCP in [place]. Advised patient on ways our service can be of assistance. Current Activity/Mobility: BMAT Level 4 (Able to stand and walk; needs staff assist if fall risk factors identified) Diet: diabetic diet Tubes/lines: PIV VTE prophylaxis: heparin (porcine) injection 5,000 units subcutaneous q8H Disposition: Uncertain with expected discharge date Stable to discharge criteria (not met): Tests/procedures/consults Plan discussed with [facility] Oracle E Business Developer, Isidro Hough M.D., who was present during rosales portions of the evaluation today. Please page [place] [facility] [place] [phone] with any questions. Christian Che Medical Student #[id number] Kishore Monet M.D. - 11/30/2020 7:27 AM [...] edema present. JVP distention was not visible. George beat was not palpable. Abdomen: Distended, soft [...] intact. No evidence of disorganizedthinking. 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 ASSESSMENT / PLAN Mr. Fairbanks is a [...] Essential Primary Plan on consulting Mr. Fairbanks's picc nurse for further information regarding cardiac stenting history. [...] Fairbanks was educated by a nurse practitioner resident associate on diabetes management. He has been commenced [...] care monitoring needs Plan discussed with Pulmonary Oracle E Business Developer, Dr. Powell, who was present during rosales portions of the evaluation today. [place] [phone] with any questions. Christian Che Medical Student #[id number] LYT Kelsi Aguilar M.D. - 11/29/2020 10:16 [...] systems based plan of care. Constantino Wilson M.B.B.S. - 11/29/2020 9:10 AM CDT Of [...] Patient presents as a trauma page from [facility] for medical work up. Patient is not assessed due toreceiving urgent medical evaluation. Patient was found down at [facility] in [place], [place]. and family were with him and they called 911. When EMS arrived they made the decision to life flight him to [facility] for medical work up.Patient was intubated and sedated upon arrival. Patient's real name is Julio Whaley garry 1965. Patient's is on her way ([facility] - [phone]) OBJECTIVE Emergency Department social staff worker responded to the trauma bay in the context of a trauma page. Unidentified Ana Gaxiola was brought by [facility] Helicopter method of transport. ASSESSMENT [...] He was quickly intubated and transferred to [facility]. He was sedated and paralyzed.Noted to have [...] presented with respiratory arrest. He is from [place] and woke up this morning with acute onset shortness of breath that Mr. Fairbanks described as wet. He also reportedly noted left arm tingling and pain and was concerned he was having a heart attack. His fiance drove him to the nearest gas station where they called EMS. He arrived to the [facility] ED with [facility]. On scene he was diaphoretic and [...] (HCC) #6 Acute Respiratory Failure With Hypoxia ([facility]) Mr. Fairbanks presents with acute hypercapnic and [...] PULMONARY CONSULT SERVICE CONSULT NOTE REFERRING SERVICE [facility] Pulmonary Medicine [facility] REASON FOR CONSULT Left-sided pneumothorax. HISTORY [...] planning on taking the patient to the crown and bridge dental lab technician for angio tomorrow. Recommendation: 1. [...] follow. ??Please page the IP??Consult service at [phone]??with any questions or concerns. ?? The above [...] 6:24 PM CDTAssociated Order(s): IP CONSULT TO CONTACT AGENT SALES AND SERVICE SPECIALIST Encounter: Spiritual care Situation: Mr. Fairbanks asked for prayers for healing so that he could go home. He was able to recognize that he has improved quite a bit from the time he came in the hospital via helicopter. Family: He had 1 family member with him Elaine Tradition: Mr. Fairbanks is a Faith who currently attends a [employer] yazidi in [place]. Prayers were said with the patient and his family member. Plan: Will remain available for spiritual care as needed or requested. [facility]pl[facility] [phone] ([place]). Christian Ascencio M.D. - 11/30/2020 4:53 PM [...] LVH, apical akinesis, trivial TR. Since his NM , he has been chest pain free. Two weeks prior to presentation to [facility], he began experiencing intermittent episodes of chest pain and left arm burning very similar to his previous NM. the day prior to presentation, he had [...] water seal. He smoked until his last NM. no alcohol or drug use. Lives part-time in [place] and part-time in [place]. PAST MEDICAL/SURGICAL HISTORY See above SOCIAL HISTORY [...] Gatherings with Friends and Family: ??? Attends Rastafari Services: ??? Active Member of Clubs or [...] patient lives with his . Spirituality / Nondenominational / Culture: None Psychosocial Risk Factors impacting the patient: none Abuse, Neglect, Maltreatment, Trauma: Current: Patient denied. ENVIRONMENTAL SUPPORTS Current Living Situation: The patient lives in [place], but reports also having a home in [place]. Anticipated modifications to the patient's home environment: [...] Skills/Strengths Family support ASSESSMENT / PLAN DISCUSSION Wan Support Specialist met with the patient/family to complete psychosocial assessment, provide ongoing emotional support, and to discuss psychoeducation of resources. Introduced Social Work and their role in the inpatient setting. Informed patient/family of Social Work's legal responsibility as a mandated cub reporter and what that entails in regards [...] glycemic goal. - Consults: Diabetes Educators and Production [employer]about ANTICIPATED DISMISSAL PLAN: Given elevated A1c and [...] Thank you for the consult. DCS Pager [phone] will follow. Call primary service for diabetes concerns between [phone]. Primary service to contact DCS via hospital pipe smoking machine operator for questions. Nacho Torres M.D. - [...] per record Allergies None Social Lives in [place]. [facility] [place] [facility] time of incident. The following portions [...] for further management. We placed a 28 Luxembourgish left chest tube at the bedside. Please see procedure note for additional details. Postplacement x-ray demonstrates the tube is in the chest, though the side hole is adjacent chest wall. This was repositioned and subsequent CXR demonstrated good position. The pigtail catheter was clamped. Recommendations: -Maintain 28 Luxembourgish chest tube to suction -20 cm water -Keep pigtail catheter clamped. -Tomorrow we will remove the pigtail catheter and anticipate removing the chest tube in 24-48 hours if no significant bleeding or leak. [facility] Surgery Patient seen and evaluated with Dr. [...] Note Patient transferred to: [facility]6B Accompanied by: SURGICAL TECHNICIAN Report called? YES Nurse receiving report: TERENCE [...] Right Radial (Active) Placement Date/Time: 11/28/20 (c) 7227 Hand Hygiene Performed Prior to Insertion: Yes [...] Plan of Care: Patient was extubated to [place] and has tolerated well, strong cough. Will continue to monitor and assess while in the ICU. Principal Problem Edema Pulmonary (HCC) Oxygen Therapy $Delivery Method: Nasal cannula Arterial Line 11/28/20 Right Radial (Active) Placement Date/Time: 11/28/20 (c) 9458 Hand Hygiene Performed Prior to Insertion: Yes [...] from the ED after being brought to [facility] via [facility], report is patient had acute onset of SOB, left arm numbness and chest pain, [facility] arrived and placed on PAP [...] Right Radial (Active) Placement Date/Time: 11/28/20 (c) 1806 Hand Hygiene Performed Prior to Insertion: Yes [...] distress. Patient was brought in by the [facility] crew, who provides history. At the [...] estimated age 40s to 50s flown via [facility] from scene due to concern for cardiogenic shock. Per report, patient is from [place] and has a history of recent cardiacstenting. He reported new onset difficulty breathing tonight and felt like his lungs were wet. Hisfiance drove him to the nearest gas station and EMS was called. [facility] [facility] for ACS and on arrival his saturations were in the 40s. Unknown initial blood pressure. [facility] trialed BiPap with no success and intubated him with ketamine and rocuronium. He was started on nitroglycerin drip and transported to [facility]. [facility] reported SpO2 90% after intubation with [...] presented with respiratory arrest. He is from [place] and woke up day of admission with acute onset shortness ofbreath that Mr. Fairbanks described as wet. He also reportedly noted left arm tingling and pain and was concerned he was having a heart attack. His fiance drove him to the nearest gas station where they called EMS. He arrived to the [facility] ED with Francisco Annamaria. On scene he [...] regions. Prior ECHO results from the patient's picc nurse showed an EF of 50-55% with similar [...] coronary stent and active essential hypertension. Diabetes career services representative educated patient on diabetes management and devised a discharge medical therapy regimen. Patient will need to follow up as an outpatient with their new PCP in [place]. documented in this encounter Plan of Treatment Upcoming Encounters Date Type Specialty Care Team Description 04/06/2022 Clinical Communication Admitting/Central Scheduling 04/09/2022 Appointment Pulmonary Medicine Mario Pitt M.D. [address] [place] [phone] 05/23/2022 Office Visit Cardiovascular Disease Osman Wesley M.D. [address] [place] [phone] documented as of this encounter Procedures Procedure [...] for CATHETERIZATION 5:47 PM CDT Heart Disease [place] this procedure Coronary Artery With are in [...] this procedure are in the results section. HI INS TUBE Routine 11/28/2020 Other Pneumothorax Results [...] Address City/State/ZIP Code Phon e Number POC [facility] [address] [place] [address] [place] [address] [place] P[place] [address] [facility] (ABNORMAL) Glucose, POCT (12/05/2020 8:26 AM CDT) Analysis Performed At Patho logist Time Signature Glucose, POCT, 157 (H) [...] Address City/State/ZIP Code Phon e Number POC [facility] [address] [place] [address] [place] [address] [place] P[place] [address] [facility] (ABNORMAL) CBC with Differential, Blood (12/05/2020 6:58 AM CDT) [facility] Method Time Signature Hemoglobin 12.1 (L) [...] Organization Address City/State/ZIP Code Phon e Number [facility] - [address] [place] [address] [facility] [place] [address] Laboratories-[facility] 200 [facility] Basic Metabolic Panel (12/05/2020 6:58 AM [...] 12/05/2020 DTL Black/ mL/min/BSA 8:18 AM CDT Palestinian Comment: ----ADDITIONAL INFORMATION---- Estimated GFR calculated using [...] M.D. LAB BLOOD ADD-ON Performing Organization Address City/[facility] Phon e Number [facility] - [address] [place], [place] [address] [place] [address] [facility] [address] (ABNORMAL) Glucose, POCT (12/04/2020 10:04 PM CDT) Analysis Performed At Patho logis Time Signature Glucose, POCT, 180 (H) 70 - 140 12/04/2020 [facility]X B mg/dL 10:08 PM CDT Last Intake 3-4 hours 12/04/2020 [facility] 10:08 PM CDT Specimen Anatomical Collection Method Collection Time Receive d Time (Source) Location / / Volume Laterality Blood 12/04/2020 10:04 12/04/2020 PM CDT 10:08 PM CDT Unknown Provider LAB POCT ORDERABLES-MANUAL Performing Organization Address City/State/ZIP [facility] Phon e Number POC [facility] [address] [place] [address] [place] [address] [facility] 200 [facility] Glucose, POCT (12/04/2020 5:54 PM CDT) Analysis Performed At Patho logis Time Signature Glucose, POCT, 135 70 - 140 12/04/2020 [facility] B mg/dL 5:59 PM CDT Site Capillary 12/04/2020 [facility] 5:59 PM CDT Last Intake 3-4 hours 12/04/2020 [facility] 5:59 PM CDT Specimen Anatomical Collection Method Collection Time Receive d Time (Source) Location / / Volume Laterality Blood 12/04/2020 5:54 PM 5:59 CDT PM CDT Unknown Provider LAB POCT ORDERABLES-MANUAL Performing Organization Address City/[facility]/ZIP Code Phon e Number POC [facility] [address] [place] [address] [place], [place] [id number] [place] [address] POC 200 [facility] (ABNORMAL) Glucose, POCT (12/04/2020 12:37 PM CDT) [...] Provider LAB POCT ORDERABLES-MANUAL Performing Organization Address City/[facility] Phon e Number POC [facility] [address] [place] [address] [place] [address] [place] P[facility] 200 [facility] Glucose, POCT (12/04/2020 7:44 AM CDT) [...] Provider LAB POCT ORDERABLES-MANUAL Performing Organization Address City/[facility]/ZIP [facility] Phon e Number POC [facility] [address] [place] [address] [place], [place] [phone] [place] [address] POC [address] [facility] (ABNORMAL) Glucose, POCT (12/03/2020 9:24 PM CDT) Analysis Performed At Patho logis Time Signature Glucose, POCT, 187 (H) [...] Provider LAB POCT ORDERABLES-MANUAL Performing Organization Address City/[facility] Phon e Number POC [facility] [address] [place] [address] [place] [address] [place] POC 200 [facility] (ABNORMAL) Glucose, POCT (12/03/2020 5:20 PM CDT) Analysis Performed At Path logis Time Signature Glucose, POCT, 156 (H) 70 - 140 12/03/2020 [facility] B mg/dL 5:29 PM CDT Site Capillary 12/03/2020 [facility] 5:29 PM CDT Last Intake 3-4 hours 12/03/2020 [facility] 5:29 PM CDT Specimen Anatomical Collection Method Collection Time Receive d Time (Source) Location / / Volume Laterality Blood 12/03/2020 5:20 PM 5:29 CDT PM CDT Unknown Provider LAB POCT ORDERABLES-MANUAL Performing Organization Address City/State/[facility] Phon e Number POC [facility] [address] [place] [address] [place] [address] [place] POC [address] [facility] (ABNORMAL) Glucose, POCT (12/03/2020 11:04 AM CDT) Analysis Performed At Patho logis Time Signature Glucose, POCT, 242 (H) 70 [...] Address City/State/ZIP Code Phon e Number POC [facility] [address] [place] [address] PCL[facility] [place] [address] [place] POC [address] DX Chest [...] Address City/State/ZIP Code Phon e Number POC [facility] [address] [place] [address] PCLX [facility] [place] [address] [place] POC [address] [facility] (ABNORMAL) CBC with Differential, Blood (12/03/2020 6:34 AM CDT) [facility] Method Time Signature Hemoglobin 12.4 (L) [...] Organization Address City/State/ZIP Code Phon e Number [facility] - [address] [place], [place] [address] [facility] [place] [address] Laboratories-[facility] 200 [facility] Basic Metabolic Panel (12/03/2020 6:34 AM [...] 12/03/2020 DTL Black/ mL/min/BSA 8:01 AM CDT Palestinian Comment: ----ADDITIONAL INFORMATION---- Estimated GFR calculated using [...] M.D. LAB BLOOD ADD-ON Performing Organization Address City/[facility] Code Phon e Number [facility] - [address] [place] [address] [place] [address] [facility] [address] [facility] SARS-CoV-2 Nucleocapsid Total Ab, S (12/03/2020 6:33 AM CDT) [facility] Method Time Signature SARS-CoV-2 Negative Negative 12/03/2020 DT Nucleocapsid 5:00 PM CDT Total Ab, S [...] was performed using the [employer] [id number] Reagent assay from [employer], which has received Emergency Use Authori zation(EUA) by the U.S. Food and Drug Administration . Fact sheets for this Emergency Use Autho rization (EUA) assay can be found at the following link s: For Healthcare Providers: https://www.fda.gov/media/964964/downloa d For Patients: https://www.fda.gov/media/179679/downloa d Specimen Anatomical Collection Method Collection Time Receive d Time (Source) Location / / Volume Laterality Blood (Blood, 12/03/2020 6:33 AM 12/04/19 21 4:19 Venous) CDT PM CDT Prince Powers M.D. LAB MICROBIOLOGY - BLOOD ORD ERABLES Performing Organization Address City/[facility] Phon e Number [facility] - [address] [place], [place] [address] [place] [address] [facility] [address] (ABNORMAL) Glucose, POCT (12/02/2020 [...] Address City/State/ZIP Code Phon e Number POC [facility] [address] [place] [address] [place] [address] [facility] 200 [facility] CORONARY ANGIOGRAPHY (12/02/2020 5:47 PM CDT) Anatomical [...] Angina/Angina Of Exertion) ([facility]) CORONARY DIAGNOSTIC SUMMARY Coronary artery dominance is [...] (12/02/2020 3:25 PM CDT) Analysis Performed At [facility] Time Signature Glucose, POCT, 104 70 - 140 12/02/2020 [facility] B mg/dL 3:27 PM CDT Site Capillary 12/02/2020 [facility] 3:27 PM CDT Last Intake NPO 12/02/2020 [facility] 3:27 PM CDT Specimen Anatomical Collection Method Collection Time Receive d Time (Source) Location / / Volume Laterality Blood 12/02/2020 3:25 PM 3:27 CDT PM CDT Unknown Provider LAB POCT ORDERABLES-MANUAL Performing Organization Address City/[facility] Code Phon e Number POC [facility] [address] [place] [address] [place] [phone] [place] [address] Glucose, POCT (12/02/2020 12:12 PM CDT) Analysis Performed At [facility] Time Signature Glucose, POCT, 105 70 [...] Provider LAB POCT ORDERABLES-MANUAL Performing Organization Address City/[facility] Phon e Number POC [facility] [address] [place] [address] [facility] [phone] [place] [address] Glucose, POCT (12/02/2020 8:14 AM CDT) Analysis [...] Address City/State/ZIP Code Phon e Number POC [facility] [address] [place] [address] PCL[facility] [place] [address] [place] P[place] [address] DX Chest [...] AM CDT Since 12/01/2020, stable appearing left ndeuz-yq-oajjturi pneumothorax without mediastinal shift. Retrocardiac consolidation/atelectasis and [...] EWS IMPRESSION: Since 12/01/2020, stable appearing left tusla-ou-pgggjkia pneumothorax without mediastinal shift. Retrocardiac consolidation/atelectasis and probable trace left pleural effusion . Normal cardiac contour. Right-sided basilar atelectasis without pneumothorax or effusion. Decreased left lateral chest wall subcutaneous emphysema. Prince Powers M.D. IMLady DIAGNOSTIC IMAGING PROCE DURES (ABNORMAL) CBC with Differential, Blood (12/02/2020 7:38 AM CDT) [facility] Method Time Signature Hemoglobin 11.9 (L) [...] Organization Address City/State/ZIP Code Phon e Number [facility] - [address] [place] [address] [facility] [place] [address] Laboratories-[facility] [address] [facility] Basic Metabolic Panel (12/02/2020 7:38 AM [...] 12/02/2020 DTL Black/ mL/min/BSA 8:30 AM CDT Palestinian Comment: ----ADDITIONAL INFORMATION---- Estimated GFR calculated using [...] Organization Address City/State/ZIP Code Phon e Number [facility] - [facility] [address] [place], [place] [address] [facility] [place] [address] [facility] [address] [facility] (ABNORMAL) Glucose, POCT (12/01/2020 9:22 PM CDT) [...] Provider LAB POCT ORDERABLES-MANUAL Performing Organization Address City/[facility] Phon e Number POC [facility] [address] [place] [address] [facility] [phone] [place] [address] POC 200 [facility] Glucose, POCT (12/01/2020 5:31 PM CDT) Analysis Performed At [facility] logis Time Signature Glucose, POCT, 134 70 - 140 12/01/2020 [facility] B mg/dL 5:34 PM CDT Last Intake 3-4 hours 12/01/2020 [facility] 5:34 PM CDT Specimen Anatomical Collection Method Collection Time Receive d Time (Source) Location / / Volume Laterality Blood 12/01/2020 5:31 PM 5:35 CDT PM CDT Unknown Provider LAB POCT ORDERABLES-MANUAL Performing Organization Address City/[facility] Phon e Number POC [facility] [address] [place] [address] [place] [address] [place] POC 200 [facility] DX Chest AP or PA and [...] telectasis. Constantino Arellano IMG DIAGNOSTIC IMAGING PROCE DUR Glucose, POCT (12/01/2020 11:35 AM CDT) Analysis [...] Address City/State/ZIP Code Phon e Number POC [facility] [address] [place] [address] [facility]CL[facility] [place] [address] [place] POC [address] (ABNORMAL) Glucose, POCT (12/01/2020 9:33 AM CDT) [...] e Number POC [facility] [address] [place] [address] [facility] [place] [address] [place] POC 200 [facility] DX Chest AP or PA and [...] emphysema left chest wall. Esthela Ryder M.D. IMLady DIAGNOSTIC IMAGING PROCE CAROL ANN APTT (Activated [...] M.D. LAB BLOOD ADD-ON Performing Organization Address [facility] Phon e Number [facility] - [address] [place] [address] [place] [address] Laboratories-[address] Prothrombin Time (PT) (12/01/2020 7:04 AM CDT) P athologist Signature Prothrombin 12.2 9.4 - 12.5 [...] M.D. LAB BLOOD ADD-ON Performing Organization Address [facility] Phon e Number [facility] - [address] [place] [address] [place] [address] [address] (ABNORMAL) CBC without Differential (12/01/2020 7:04 [...] Organization Address City/State/ZIP Code Phon e Number [facility] - [address] [place], [place] [address] [facility] [place] [address] [facility] [address] (ABNORMAL) Basic Metabolic Panel (12/01/2020 7:04 [...] 12/01/2020 DTL Black/ mL/min/BSA 8:35 AM CDT Palestinian Comment: ----ADDITIONAL INFORMATION---- Estimated GFR calculated using [...] M.D. LAB BLOOD ADD-ON Performing Organization Address City/[facility]/ZIP Code Phon e Number [facility] - [address] [place], [place] [address] [facility] [place] [address] Laboratories[facility] 200 [facility] (ABNORMAL) Glucose, POCT (11/30/2020 9:55 PM [...] Provider LAB POCT ORDERABLES-MANUAL Performing Organization Address City/[facility]/ZIP Code Phon e Number POC [facility] [address] [place] [address] [place] [address] [facility] 200 [facility] pH, Urine (11/30/2020 5:43 PM CDT) P athologist Signature pH, U 5.3 4.5 - 8.0 11/30/2020 8:56 DTL PM CDT Specimen Anatomical Collection Method Collection Time Receive d Time (Source) Location / / Volume Laterality Urine 11/30/2020 5:43 PM 6:06 CDT PM CDT Estheal Ryder M.D. LAB URINE ORDERABLES Performing Organization Address City/[facility]/ZIP Code Phon e Number [facility] - [address] [place], [place] [address] [place] [address] (ABNORMAL) Microscopic Automated (11/30/2020 5:43 PM CDT) [...] Organization Address City/State/ZIP Code Phon e Number [facility] - [address] Osmolality, Urine (11/30/2020 5:43 PM CDT) P athologist Signature Osmolality, U 492 150 - 1150 11/30/2020 DTL mOsm/kg 8:56 PM CDT Specimen Anatomical Collection Method Collection Time Receive d Time (Source) Location / / Volume Laterality Urine 11/30/2020 5:43 PM 6:06 CDT PM CDT Esthela Ryder M.D. LAB URINE ORDERABLES Performing Organization Address City/State/ZIP Code Phon e Number [address] (ABNORMAL) Dipstick, Urine (11/30/2020 5:43 PM [...] M.D. LAB URINE ORDERABLES Performing Organization Address City/[facility]/ZIP Code Phon e Number [facility] - [address] Urinalysis with Microscopic: Urine, Midstream (11/30/2020 5:43 PM CDT) [facility] Method Time Signature Source Urine, Urine, 11/30/2020 [...] M.D. LAB URINE ORDERABLES Performing Organization Address City/[facility]/ZIP Code Phon e Number [facility] - [address] (ABNORMAL) Glucose, POCT (11/30/2020 5:20 PM [...] Provider LAB POCT ORDERABLES-MANUAL Performing Organization Address City/State/[facility] Code Phon e Number POC [facility] [address] [place] [address] [place] [address] [place] POC 200 [facility] (ABNORMAL) Glucose, POCT (11/30/2020 11:41 AM [...] Provider LAB POCT ORDERABLES-MANUAL Performing Organization Address City/State/[facility] Phon e Number POC [facility] [address] [place] [address] [place] [address] [place] POC 200 [facility] (ABNORMAL) Glucose, POCT (11/30/2020 7:35 AM [...] Provider LAB POCT ORDERABLES-MANUAL Performing Organization Address City/[facility]/ZIP [facility] Phon e Number [facility] [address] [place] [address] [facility]CL[facility] [place] [address] [place] POC [address] [facility] Calcium, Ionized (11/30/2020 12:06 AM CDT) athologist Signature Calcium, 4.85 4.57 - 5.43 11/30/2020 DTL Ionized, S mg/dL 1:20 AM CDT Comment: ----ADDITIONAL INFORMATION---- This test has been modified from the man blanka's instructions. Its performance characteri stics were determined by [facility] in a manner co nsistent [...] LAB BLOOD NON ADD-ON Performing Organization Address City/[facility]/ZIP Code Phon e Number [facility] - [address] [place], [place] [address] [facility] [place] [address] Laboratories-[facility] [address] Phosphorus Inorganic (11/30/2020 12:06 AM CDT) athologist Signature Phosphorus 3.6 2.5 - 4.5 11/30/2020 DTL (Inorganic), S mg/dL 1:17 AM CDT Specimen Anatomical Collection Method Collection Time Receive d Time (Source) Location / / Volume Laterality Blood (Blood, 11/30/2020 12:06 11/30/2020 Venous) AM CDT 12:45 AM CDT Aniyah Roberson M.D. LAB BLOOD ADD-ON Performing Organization Address City/[facility] Phon e Number [facility] - [address] [place] [address] Magnesium (11/30/2020 12:06 AM CDT) P athologist Signature Magnesium, S 1.8 1.7 - 2.3 11/30/2020 DTL mg/dL 1:17 AM CDT Specimen Anatomical Collection Method Collection Time Receive d Time (Source) Location / / Volume Laterality Blood (Blood, 11/30/2020 12:06 11/30/2020 Venous) AM CDT 12:45 AM CDT Aniyah Roberson M.D. LAB BLOOD ADD-ON Performing Organization Address [facility] Phon e Number [facility] - [address] [place] [address] [place], [place] [address] [address] (ABNORMAL) CBC with Differential, Blood (11/30/2020 [...] Organization Address City/State/ZIP Code Phon e Number [facility] - [address] [place], [place] [address] [facility] [place] [address] Laboratories-[facility] 200 [facility] Basic Metabolic Panel (11/30/2020 12:06 AM [...] 11/30/2020 DTL Black/ mL/min/BSA 1:17 AM CDT Palestinian Comment: ----ADDITIONAL INFORMATION---- Estimated GFR calculated using [...] M.D. LAB BLOOD ADD-ON Performing Organization Address City/[facility]/ZIP Code Phon e Number [facility] - [address] [place] [address] [facility] [place] [address] [facility] 200 [facility] (ABNORMAL) Glucose, POCT (11/29/2020 10:17 PM CDT) Analysis Performed At [facility] Signature Glucose, POCT, 168 (H) 70 - [...] Provider LAB POCT ORDERABLES-MANUAL Performing Organization Address City/[facility] Phon e Number [facility] [address] [place] [address] [facility]CL[facility] [place] [address] [facility] 200 [facility] (ABNORMAL) Glucose, POCT (11/29/2020 6:09 PM [...] Address City/State/ZIP Code Phon e Number POC [facility] [address] [place] [address] [facility] [phone] [place] [address] POC 200 [facility] (ABNORMAL) Glucose, POCT (11/29/2020 12:20 PM [...] Provider LAB POCT ORDERABLES-MANUAL Performing Organization Address City/[facility] Code Phon e Number POC [facility] [address] [place] [address] [place] [address] [place] POC 200 [facility] (TTE) 2D ECHO DOPPLER COLOR AND [...] Echocardiography Contra st Administration Protocol Reference Document [id number]. Patient met an inclusion cri terion and did not have contraindications in screening sections. For the complete report, see the [employer] Documents. Narrative 11/29/2020 4:30 PM CDT For the complete report, see the [employer] Documents. Final Impressions 1. Mildly enlarged left [...] effusion. 6. [facility] Procedure Note Guerda Calix M.D., Ph.D. - 11/29/2020 For the complete report, see the [employer] Documents. Final Impressions 1. Mildly enlarged left [...] 6. No previous studies available for com mckayon. Findings Echo performed in the ICU with [...] Echocardiography Contra st Administration Protocol Reference Document [id number]. Patient met an inclusion cri terion and did not have contraindications in screening sections. For the complete report, see the [employer] Documents. Aniyah Roberson M.D. CV ECHO PROCEDURES (ABNORMAL) Glucose, POCT (11/29/2020 8:07 AM CDT) Analysis Performed At [facility] Time Signature Glucose, POCT, 189 (H) 70 [...] Provider LAB POCT ORDERABLES-MANUAL Performing Organization Address City/[facility] Phon e Number POC [facility] [address] [place] [address] [facility] [place] [address] [place] POC [address] (ABNORMAL) CBC without Differential (11/29/2020 3:46 AM CDT) [facility] gist Method Time Signature Hemoglobin 11.5 (L) [...] Organization Address City/State/ZIP Code Phon e Number [facility] - [address] [place], [place] [address] [facility] [place] [address] Laboratories-[facility] 200 [facility] (ABNORMAL) Basic Metabolic Panel (11/29/2020 3:46 [...] 11/29/2020 DTL Black/ mL/min/BSA 5:00 AM CDT Palestinian Comment: ----ADDITIONAL INFORMATION---- Estimated GFR calculated using [...] LAB BLOOD ADD-O N Performing Organization Address City/[facility] Phon e Number [facility] - [address] [place], [place] [address] [place], [place] [address] [address] Phosphorus Inorganic (11/29/2020 3:46 AM CDT) P athologist Signature Phosphorus 3.0 2.5 - 4.5 11/29/2020 DTL (Inorganic), S mg/dL 5:00 AM CDT Specimen Anatomical Collection Method Collection Time Receive d Time (Source) Location / / Volume Laterality Blood (Blood, 11/29/2020 3:46 AM 11/30/19 4:22 Venous) CDT AM CDT Javier Chen APRN, C.N.P., D.N.P. LAB BLOOD ADD-O N Performing Organization Address City/[facility] Phon e Number [place] [id number] [address] Benzodiazepines Confirmation, Urine (11/28/2020 10:35 PM CDT) Patholo gist Method Time Signature Alprazolam by Negative Cutoff: 12/01/2020 [facility] LC-MS/MS 10 ng/mL 3:47 PM CDT Alpha-Hydroxyalprazo Negative Cutoff: 12/01/2020 SDS juarez by LC-MS/MS 10 ng/mL 3:47 PM [...] PM CDT Zolpidem Negative Cutoff: 12/01/2020 [facility]SC Mdhepj-2-Pdeygdyuor 10 ng/mL 3:47 PM CDT acid by LC-MS/MS Benzodiazepines Positive. 12/01/2020 [facility] Interpretation 3:47 PM CDT Comment: ----ADDITIONAL INFORMATION---- This report is intended for use in clini tio monitoring and management of patients. ??It is not intended for use i n employment-related testing. This test was developed and its performa nce characteristics determined by [facility] in a manner consistent with [...] Organization Address City/State/ZIP Code Phon e Number [facility] [address] [place], [place] [address] [facility] [place] [address] Laboratory Medicine and Pathology [address] [place] (ABNORMAL) Drug Abuse Survey with Confirmation, Panel 9, Urine (11/28/2020 10:35 PM CDT) Component Value Ref Test Analysis Performed At [facility] gist Range Method Time Signature Alcohol Negative [...] 50 ng/mL 11/29/2020 1 2:12 PM CDT [facility] Comment: ----ADDITIONAL INFORMATION---- This report is intended for use in clini tio monitoring or management of patients. ??It is not intended for use i n employment-related testing. This test has been modified from the man ufacturer's instructions. Its performance characteristics were determi craig by [facility] in a manner consistent with CLIA requirements. This test has not been cleared or approved by the U.S. Food and Drug Administration . Specimen Anatomical Collection Method Collection Time Receive d Time (Source) Location / / Volume Laterality Urine (Urine, 11/28/2020 10:35 11/29/2020 8:23 Clean Catch) PM CDT AM CDT Rachel Cutler APRNNKarla. LAB URINE ORDERABLES Performing Organization Address City/State/ZIP Code Phon e Number [facility] [address] [place], [place] [address] [facility] [place] [address] Laboratory Medicine and Pathology [address] [place] Drug Screen, Prescription/OTC, Urine (11/28/2020 10:35 PM CDT) [facility] Method Time Signature Drugs Acetaminophen. Fentanyl. 11/30/2020 [facility] detected: 10:55 AM The following [...] and its performa nce characteristics determined by [facility] in a manner consistent with CLIA requirements. This test has not been cleared or approved by the U.S. [place] d and Drug Administration. Specimen Anatomical Collection Method Collection Time Receive d Time (Source) Location / / Volume Laterality Urine (Urine, 11/28/2020 10:35 11/29/2020 8:23 Clean Catch) PM CDT AM CDT Colt Cutler APRN.N.P. LAB URINE ORDERABLES Performing Organization Address City/State/ZIP Code Phon e Number [facility] [address] [place], [place] [address] SUPPORT CENTER [facility] [place] [address] Laboratory Medicine and Pathology [address] [...] Address City/State/ZIP Code Phon e Number POC [facility] [address] [place] [address] PCLX [facility] [place] [address] [place] [facility] [address] Osmolality, Urine (11/28/2020 9:26 PM CDT) athologist Signature Osmolality, U 571 150 - 1150 11/28/2020 DT mOsm/kg 11:17 PM CDT Specimen Anatomical Collection Method Collection Time Receive d Time (Source) Location / / Volume Laterality Urine 11/28/2020 9:26 PM 9:51 CDT PM CDT Priscilla Delgado APRN, Colt.N.P. LAB URINE ORDERABLES Performing Organization Address City/[facility]/ZIP [facility] Phon e Number [facility] - [address] [place], [place] [address] [facility] [place] [address] [facility] [address] pH, Urine (11/28/2020 9:26 PM CDT) P athologist Signature pH, U 5.0 4.5 - 8.0 11/28/2020 11:17 DTL PM CDT Specimen Anatomical Collection Method Collection Time Receive d Time (Source) Location / / Volume Laterality Urine 11/28/2020 9:26 PM 9:51 CDT PM CDT Colt Cutler APRN.N.P. LAB URINE ORDERABLES Performing Organization Address [facility] Phon e Number [facility] - [address] (ABNORMAL) Microscopic Automated (11/28/2020 9:26 PM CDT) [facility] [employer] Method Time Signature Microscopy Abnormal 11/28/2020 DTL [...] Colt.N.P. LAB URINE ORDERABLES Performing Organization Address City/[facility] Phon e Number [facility] - [address] [place] [address] [place], [place] [address] [place] [address] (ABNORMAL) Dipstick, Urine (11/28/2020 9:26 PM CDT) [facility] [employer] Method Time Signature Hemoglobin, Large (A) Negative [...] Colt.N.P. LAB URINE ORDERABLES Performing Organization Address City/State/ZIP Code Phon e Number [facility] - [address] [place], [place] [address] [facility] [place] [address] Laboratories-[address] (ABNORMAL) Urinalysis with Microscopic: Urine, Midstream (11/28/2020 9:26 PM CDT) [facility] gist Method Time Signature Source Urine, Urine, [...] Organization Address City/State/ZIP Code Phon e Number [facility] - [address] [place], [place] [address] [facility] [place] [address] [address] (ABNORMAL) Troponin T, 5th Generation (11/28/2020 7:52 PM CDT) P athologist Signature Troponin T, 109 (H) <=15 ng/L 11/28/2020 STM 5th gen 8:16 PM CDT Comment: Consider acute myocardial injur y Specimen Anatomical Collection Method Collection Time Receive d Time (Source) Location / / Volume Laterality Blood (Blood, 11/28/2020 7:52 PM 11/29/19 21 7:57 Venous) CDT PM CDT Norma Sanchez APRN, C.N.P., D.N.P. LAB BLOOD ADD-ON Performing Organization Address City/State/ZIP Code Phon e Number [facility] - [address] [place], [place] [address] [place] [address] [facility] [address] [facility] (ABNORMAL) Glucose, POCT (11/28/2020 5:07 PM CDT) Analysis Performed At [facility] logist Time Signature Glucose, POCT, 211 (H) [...] Provider LAB POCT ORDERABLES-MANUAL Performing Organization Address City/[facility] Phon e Number POC [facility] [address] [place] [address] PCLX [facility] [place] [address] [place] POC 200 [facility] Glucose, POCT (11/28/2020 1:28 PM CDT) athologist [...] Provider LAB POCT ORDERABLES-MANUAL Performing Organization Address City/[facility]/ZIP Code Phon e Number POC [facility] [address] [place] [address] [place] [address] [place] [facility] 200 [facility] Glucose, POCT (11/28/2020 12:46 PM CDT) athologist [...] Provider LAB POCT ORDERABLES-MANUAL Performing Organization Address [facility] Phon e Number POC [facility] [address] [place] [address] [place] [address] [place] POC 200 [facility] DX Chest Portable 1 View (11/28/2020 12:22 [...] Address City/State/ZIP Code Phon e Number POC [facility] [address] [place] [address] PCLX [facility] [place] [address] [place] POC [address] (ABNORMAL) Basic Metabolic Panel (11/28/2020 11:12 AM CDT) athologist [facility] Potassium, S 4.3 3.6 - 5.2 11/28/2020 [...] 11/28/2020 DTL Black/ mL/min/BSA 12:16 PM CDT Palestinian Comment: ----ADDITIONAL INFORMATION---- Estimated GFR calculated using [...] C.N.P. LAB BLOOD ADD-ON Performing Organization Address City/[facility] Code Phon e Number [facility] - [id number] [place] [address] Patient Status (11/28/2020 11:12 AM CDT) P [...] BLOOD NON A DD-ON Performing Organization Address City/[facility] Phon e Number [facility] [address] [place] [address] (ABNORMAL) Blood Gas without Coox, Arterial [...] Organization Address City/State/ZIP Code Phon e Number [facility] - [address] [place], [place] [address] [place] [address] [facility] [address] HI INS TUBE THORACOSTOMY (11/28/2020 10:51 AM CDT) [...] Address City/State/ZIP Code Phon e Number POC [facility] [address] [place] [address] PCLX [facility] [place] [address] [place] P[facility] [address] DX Chest Portable 1 View (11/28/2020 10:36 [...] Address City/State/ZIP Code Phon e Number POC [facility] [address] [place] [address] PCLX [facility] [place] [address] [place] POC [address] (ABNORMAL) Glucose, [...] Provider LAB POCT ORDERABLES-MANUAL Performing Organization Address City/[facility]/ZIP [facility] Phon e Number POC [facility] [address] [place] [address] [place] [id number] [place] [address] POC 200 [facility] (ABNORMAL) Glucose, POCT (11/28/2020 7:26 AM CDT) athologist Signature Glucose, POCT, 380 (H) 70 - 140 11/28/2020 PCLX B mg/dL 7:32 AM CDT Specimen Anatomical Collection Method Collection Time Receive d Time (Source) Location / / Volume Laterality Blood 11/28/2020 7:26 AM 7:32 CDT AM CDT Unknown Provider LAB POCT ORDERABLES-MANUAL Performing Organization Address City/State/ZIP [facility] Phon e Number POC [facility] [address] [place] [address] [place] [address] [place] POC 200 [facility] DX Chest Portable 1 View (11/28/2020 [...] C.N.P. LAB BLOOD ADD-ON Performing Organization Address City/[facility] Phon e Number [facility] - [address] [place] [address] Patient Status (11/28/2020 6:23 AM CDT) athologist Signature FIO2 0.50 0.21=AIR 11/28/2020 6:27 STMA AM CDT Device Vent 11/28/2020 6:27 STMA AM CDT Specimen Anatomical Collection Method Collection Time Receive d Time (Source) Location / / Volume Laterality Blood 11/28/2020 6:23 AM 6:27 CDT AM CDT Sheridan Good APRN, C.N.P. LAB BLOOD NON ADD-ON Performing Organization Address City/State/[facility] Phon e Number [facility] - [address] [place] [address] Laboratories-[address] Calcium, Ionized (11/28/2020 6:23 AM CDT) athologist Signature Calcium, 4.69 4.65 - 5.30 11/28/2020 STMA Ionized, B mg/dL 6:30 AM CDT Specimen Anatomical Collection Method Collection Time Receive d Time (Source) Location / / Volume Laterality Blood (Blood, 11/28/2020 6:23 AM 11/29/19 6:27 Venous) CDT AM CDT Sheridan Good APRN, C.N.P. LAB BLOOD NON ADD-ON Performing Organization Address City/[facility] Code Phon e Number [facility] - [address] [place], [place] [address] [place] [address] Laboratories-[address] (ABNORMAL) Blood Gas without Coox, Arterial (11/28/2020 6:23 AM CDT) P athologist Signature pO2 97 83 - 108 [...] LAB BLOOD NON ADD-ON Performing Organization Address City/State/[facility] Code Phon e Number [facility] - [address] [place], [place] [address] [place] [address] Laboratories[address] (ABNORMAL) CBC with Differential, Blood (11/28/2020 6:22 [...] Organization Address City/State/ZIP Code Phon e Number [facility] - [address] [place], [place] [address] [place] [address] [facility] [address] (ABNORMAL) CBC with Differential, Blood (11/28/2020 6:22 AM CDT) [facility] Method Time Signature Hemoglobin 12.4 (L) [...] Organization Address City/State/ZIP Code Phon e Number [facility] - [address] [place] [address] 05 [place] [address] [facility] 200 [facility] (ABNORMAL) Hepatic Function Panel (11/28/2020 6:22 [...] C.N.P. LAB BLOOD ADD-ON Performing Organization Address City/State/[facility] Code Phon e Number [facility] - [address] [place] [address] [facility] [address] Lactate (11/28/2020 6:22 AM CDT) P athologist Signature Lactate, P 1.5 0.5 - 2.2 11/28/2020 STMA mmol/L 6:44 AM CDT Specimen Anatomical Collection Method Collection Time Receive d Time (Source) Location / / Volume Laterality Blood (Blood, 11/28/2020 6:22 AM 11/29/19 6:28 Venous) CDT AM CDT Sheridan Good APRN, C.N.P. LAB BLOOD NON ADD-ON Performing Organization Address City/State/[facility] Phon e Number [facility] - [address] [place] [address] [facility] [place] [address] [facility] [address] (ABNORMAL) Phosphorus Inorganic (11/28/2020 6:22 AM CDT) athologist Signature Phosphorus 5.4 (H) 2.5 - 4.5 11/28/2020 DTL (Inorganic), S mg/dL 7:24 AM CDT Specimen Anatomical Collection Method Collection Time Receive d Time (Source) Location / / Volume Laterality Blood (Blood, 11/28/2020 6:22 AM 11/29/19 7:07 Venous) CDT AM CDT Sheridan Good APRN, C.N.P. LAB BLOOD ADD-ON Performing Organization Address [facility] Phon e Number [facility] - [address] Magnesium (11/28/2020 6:22 AM CDT) athologist Signature Magnesium, S 2.1 1.7 - 2.3 11/28/2020 DTL mg/dL 7:24 AM CDT Specimen Anatomical Collection Method Collection Time Receive d Time (Source) Location / / Volume Laterality Blood (Blood, 11/28/2020 6:22 AM 11/29/19 7:07 Venous) CDT AM CDT Sheridan Good APRN, C.N.P. LAB BLOOD ADD-ON Performing Organization Address [facility] Phon e Number [facility] [id number] [place] [address] (ABNORMAL) Basic Metabolic Panel (11/28/2020 6:22 AM [...] CDT eGFR-Black/Afri 89 >=60 11/28/2020 STMA can Palestinian mL/min/BSA 6:47 AM CDT Comment: ----ADDITIONAL INFORMATION---- Estimated GFR calculated using the 2009 CKD_EPI creatinine equation. eGFR Non-Black/ 77 >=60 mL/min/BSA 6:47 AM CDT [facility] Comment: ----ADDITIONAL INFORMATION---- Estimated GFR calculated using [...] C.N.P. LAB BLOOD ADD-ON Performing Organization Address City/[facility]/ZIP Code Phon e Number [facility] - [address] [place], [place] [address] [place] [address] [facility] [address] [facility] (ABNORMAL) Glucose, POCT (11/28/2020 6:21 AM CDT) P athologist Signature Glucose, POCT, 355 (H) 70 - 140 11/28/2020 PCLX B mg/dL 7:02 AM CDT Specimen Anatomical Collection Method Collection Time Receive d Time (Source) Location / / Volume Laterality Blood 11/28/2020 6:21 AM 7:02 CDT AM CDT Unknown Provider LAB POCT ORDERABLES-MANUAL Performing Organization Address City/State/ZIP Code Phon e Number POC [facility] [address] [place] [address] PCLX [facility] [place] [address] [place] POC 200 [facility] Beta-Hydroxybutyrate (11/28/2020 6:17 AM CDT) P athologist Signature Beta-Hydroxybut <0.1 <0.4 mmol/L 11/28/2020 DTL yrate, S 11:19 AM CDT Specimen Anatomical Collection Method Collection Time Receive d Time (Source) Location / / Volume Laterality Blood (Blood, 11/28/2020 6:17 AM 11/29/19 21 Venous) CDT 10:02 AM CDT Aron Seymour APRN, C.N.P. LAB BLOOD ADD-ON Performing Organization Address City/State/ZIP Code Phon e Number [facility] - [address] [place], [place] [address] [facility] [place] [address] Laboratories[facility] [address] [facility] [address] Chest without IV Contrast (11/28/2020 5:53 [...] upper lung. Repositioning recommended. Krystian Cason M.D. IM CT PROCEDURES Place arterial catheter No upper extremity site restrictions (11/28/2020 5:45 AM CDT) Narrative Luis Santoro R.R.T., L.R.T. - 11/28 5:45 AM CDT Luis Santoro R.R.T., L.R.T. ? 11/28/2020 ??5:[address] arterial catheter No upper extremi ty site restrictions Date/Time: 11/28/2020 5:45 AM Performed by: Luis Santoro R.R.T., L.R.T. Authorized by: Hubert Smith M.D. Care team members present 1. Trinidad Momin, Chandan.R.T., L.R.T. 3. Luis Santoro R.R.T., L.R.T. 5. [...] 5:36 AM CDT) athologist Signature [facility] 11/28/2020 PCSM POCT 7:00 AM CDT Comment: [...] City/State/ZIP Code Phon e Number POC [facility] INPATIENT [address] [place], [place] [address] LABS PCSM [facility] [place] [address] [facility] [address] [place] [address] Arterial Blood Gas and Electrolytes, POCT (11/28/2020 [...] POCT ORDERABLES - DEVICE Performing Organization Address [facility] Phon e Number [facility] - [address] [place], [place] [address] [facility] [place] [address] (ABNORMAL) Troponin T, 2H/6H, 5th Gen (11/28/2020 [...] 11/29/19 5:43 Venous) CDT AM CDT Narrative [facility] - 11/28/2020 11:38 AM CDT Specimen Information: Specimen ID: [id number] Specimen Type: Blood Specimen Collection Start Date: ??5:36 AM Specimen Received Date: 11/28/2020 ??5:43 AM Specimen ID: [id number] Specimen Type: Blood Specimen Collection Start Date: 11:12 AM Specimen Received Date: 11/28/2020 11:17 AM Hubert Smith M.D. LAB BLOOD TROPONIN Performing Organization Address City/[facility] Phon e Number [facility] - [address] [place] [address] [facility] [place] [address] [facility] 200 [facility] (ABNORMAL) Glucose, POCT (11/28/2020 5:33 AM CDT) P athologist Signature Glucose, POCT, 409 (H) 70 - 140 11/28/2020 PCLX B mg/dL 5:35 AM CDT Site ARTLINE 11/28/2020 PCLX 5:35 AM CDT Specimen Anatomical Collection Method Collection Time Receive d Time (Source) Location / / Volume Laterality Blood 11/28/2020 5:33 AM 5:35 CDT AM CDT Unknown Provider LAB POCT ORDERABLES-MANUAL Performing Organization Address City/[facility]/ZIP Code Phon e Number [facility] [address] [place] [address] [place] [address] [facility] 200 [facility] Glucose, POCT (11/28/2020 5:29 AM CDT) Analysis Performed At Patho logist Time Signature Glucose, POCT, Collected DEFAULT 11/28/2020 SMLX B 5:29 AM CDT Specimen Anatomical Collection Method Collection Time Receive d Time (Source) Location / / Volume Laterality Blood (Blood, 11/28/2020 5:29 AM 11/29/19 5:29 Capillary) CDT AM CDT Hubert Smith M.D. LAB POCT ORDERABLES-MANUAL Performing Organization Address City/[facility]/ZIP Code Phon e Number [facility] - [address] [place], [place] [address] [facility] [place] [address] [facility] 200 [facility] Glucose, POCT (11/28/2020 5:29 AM CDT) [...] Organization Address City/State/ZIP Code Phon e Number [facility] - [address] [place], [place] [address] [facility] [place] [address] Laboratories-[address] Glucose, POCT (11/28/2020 5:29 AM CDT) Analysis Performed At Patho logist Time Signature Glucose, POCT, Collected DEFAULT 11/28/2020 SMLX B 5:29 AM CDT Specimen Anatomical Collection Method Collection Time Receive d Time (Source) Location / / Volume Laterality Blood (Blood, 11/28/2020 5:29 AM 11/29/19 5:29 Capillary) CDT AM CDT Hubert Smith M.D. LAB POCT ORDERABLES-MANUAL Performing Organization Address City/State/[facility] Code Phon e Number [facility] - [address] [place], [place] [address] [place] [address] Laboratories-[address] (ABNORMAL) Venous Blood Gas and Electrolytes [...] City/State/ZIP Code Phon e Number POC RST [facility] IN[facility]IENT [address] [place], [place] [address] LABS PCSM [facility] [place] [address] [place] POC [address] Bacteria / Anabela Culture, Blood # 2 (11/28/2020 5:09 AM CDT) [facility] gist Method Time Signature Bacteria/Christina No growth 12/03/2020 DTL da Culture, after 5 7:02 AM CDT Blood days of incubation. Specimen (Source) Anatomical Collection Method Collection Time Re ceived Time Location / / Volume Laterality Blood (Blood, 11/28/2020 5:09 11/28/2020 6:21 Peripheral Draw) AM CDT AM CDT Comment: Specimen Source Site: Blood Krystian Cason M.D. LAB MICROBIOLOGY - GENERAL O CHARANJIT Performing Organization Address City/[facility]/ZIP Code Phon e Number [facility] - 200 [place], [place] [address] [place] [address] Laboratories-[address] Venous Blood Gas and Electrolytes, POCT [...] POCT ORDERABLES - DEVICE Performing Organization Address [facility] Phon e Number [facility] - [address] [place], [place] [address] [facility] [place] [address] Laboratories-[address] Bacteria / Anabela Culture, Blood #1 (11/28/2020 5:02 AM CDT) Patholo gist Method Time Signature Bacteria/Christina No growth 12/03/2020 DT da Culture, after 5 7:02 AM CDT Blood days of incubation. Specimen (Source) Anatomical Collection Method Collection Time Re ceived Time Location / / Volume Laterality Blood (Blood, 11/28/2020 5:02 11/28/2020 6:22 Peripheral Draw) AM CDT AM CDT Comment: Specimen Source Site: Steripath Krystian Cason M.D. LAB MICROBIOLOGY - GENERAL O CHARANJIT Performing Organization Address City/[facility] Code Phon e Number [facility] - 200 [place], [place] [address] [facility] [place] [address] Laboratories[address] Beta-Hydroxybutyrate (11/28/2020 5:02 AM CDT) P athologist Signature Beta-Hydroxybut <0.1 <0.4 mmol/L 11/28/2020 DTL yrate, S 6:05 AM CDT Specimen Anatomical Collection Method Collection Time Receive d Time (Source) Location / / Volume Laterality Blood (Blood, 11/28/2020 5:02 AM 11/29/19 5:40 Venous) CDT AM CDT Hubert Smith M.D. LAB BLOOD ADD-ON Performing Organization Address City/State/ZIP Code Phon e Number [facility] - [address] [place], [place] [address] [facility] [place] [address] Laboratories-[facility] [address] DX Chest Portable [...] Krystian Cason M.D. IMG DIAGNOSTIC IMAGING PROCE CAROL ANN SARS Coronavirus 2, PCR Rapid, V Symptomatic (11/28/2020 4:28 AM CDT) [facility] Method Time Signature SARS CoV-2, Undetected Undetected 11/28/2020 [facility] PCR, Rapid, V 5:01 AM CDT Comment: ----ADDITIONAL INFORMATION---- This RT-PCR test was performed using the Didi SARS-CoV-2 and Influenza A/B Reagent assay from [employer], which has received Emergency Use Authori zation(EUA) by the U.S. Food and Drug Administration . Fact sheets for this Emergency Use Autho rization (EUA) assay can be found at the following link s: For Healthcare Providers: https://www.fda.gov/media/859530/downloa d For Patients: https://www.fda.gov/media/354179/downloa d SARS Coronavirus 2, Source, Rapid Swab, Nasopharynx 11/28/2020 4:32 AM CDT [facility] Specimen Anatomical Collection Method Collection Time Receive d Time (Source) Location / / Volume Laterality Varies 11/28/2020 4:28 AM 4:32 (Nasopharynx) CDT AM CDT Hubert Smith M.D. LAB MICROBIOLOGY - GENERAL O RDERABLES Performing Organization Address City/State/ZIP Code Phon e Number [facility] - [address] [place], [place] [address] [facility] [place] [address] Laboratories-[facility] [address] Chest Tube Insertion (11/28/2020 [...] Address City/State/ZIP Code Phon e Number POC [facility] SERVICES [address] [place] [address] PCLX [facility] [place] [address] [place] [facility] 200 [facility] (ABNORMAL) Venous Blood Gas and Electrolytes CG8+, [...] City/State/ZIP Code Phon e Number POC RST [facility] INPATIENT [address] [place], [place] [address] [place] [address] [place] [facility] [address] DX Chest [...] ea rlier today. Hubert [facility] DX Chest Portable 1 View (11/28/2020 3:39 [...] Hubert Smith M.D. IMG DIAGNOSTIC IMAGING PROCE CAROL ANN Lactate, POCT (11/28/2020 3:31 AM CDT) Analysis Performed At Path logist Time Signature Lactate, POCT Collected DEFAULT 11/28/2020 [facility] 3:31 AM CDT Specimen Anatomical Collection Method Collection Time Receive d Time (Source) Location / / Volume Laterality Blood (Blood, 11/28/2020 3:31 AM 11/29/19 3:31 Venous) CDT AM CDT Hubert Smith M.D. LAB POCT ORDERABLES - DEVICE Performing Organization Address City/State/ZIP Code Phon e Number [facility] - [address] [place], [place] [address] [facility] [place] [address] Laboratories-[facility] [address] Prothrombin Time (PT) (11/28/2020 3:31 AM CDT) P athologist [facility] Prothrombin 11.5 9.4 - 12.5 11/28/2020 [facility] Time, P sec 3:49 AM CDT INR 1.0 0.9 - 1.1 11/28/2020 [facility] 3:49 AM CDT Comment: ----ADDITIONAL INFORMATION---- Standard intensity warfarin therapeutic range: 2.0 to 3.0 ?? High intensity warfarin therapeutic rang e: 2.5 to 3.5 Specimen Anatomical Collection Method Collection Time Receive d Time (Source) Location / / Volume Laterality Blood (Blood, 11/28/2020 3:31 AM 11/29/19 3:39 Venous) CDT AM CDT Hubert Smith M.D. LAB BLOOD ADD-ON Performing Organization Address City/[facility] Phon e Number [facility] - [address] [place] [address] Laboratories-[address] Magnesium (11/28/2020 3:31 AM CDT) [facility] Magnesium, S 2.1 1.7 - 2.3 11/28/2020 DTL mg/dL 4:24 AM CDT Specimen Anatomical Collection Method Collection Time Receive d Time (Source) Location / / Volume Laterality Blood (Blood, 11/28/2020 3:31 AM 11/29/19 4:02 Venous) CDT AM CDT Hubert Smith M.D. LAB BLOOD ADD-ON Performing Organization Address City/[facility] Phon e Number [facility] [address] [place] [address] [facility] [place] [address] Laboratories-[address] (ABNORMAL) Troponin T, Baseline, 5th gen (11/28/2020 3:31 AM CDT) athologist [facility] Troponin T, 60 (H) <=15 ng/L 11/28/2020 [facility] Baseline, 5th 3:56 AM CDT gen Specimen Anatomical Collection Method Collection Time Receive d Time (Source) Location / / Volume Laterality Blood (Blood, 11/28/2020 3:31 AM 11/29/19 3:40 Venous) CDT AM CDT Hubert Smith M.D. LAB BLOOD TROPONIN Performing Organization Address City/[facility] Code Phon e Number [facility] - [address] [place], [place] [address] [place] [address] (ABNORMAL) Hepatic Function Panel (11/28/2020 3:31 [...] M.D. LAB BLOOD ADD-ON Performing Organization Address City/[facility] Code Phon e Number [facility] - [address] [place], [place] [address] [facility] [place], [place] [id number] [place] [address] (ABNORMAL) NT-Pro B-Type Natriuretic Peptide (BNP) [...] Organization Address City/State/ZIP Code Phon e Number [facility] - [address] [place], [place] [address] [facility] [place] [address] Laboratories-[facility] [address] (ABNORMAL) Basic Metabolic Panel [...] (Blood Urea 18 8 - 24 [facility]/28/2020 [facility]), P mg/dL 4:10 AM CDT Creatinine 1.01 0.74 - 11/28/2020 [facility] 1.35 mg/dL 4:10 AM CDT eGFR-Black/Afri >90 >=60 11/28/2020 [facility] can Palestinian mL/min/BSA 4:31 AM CDT Comment: REVISED RESULTS ----ADDITIONAL INFORMATION---- Estimated GFR calculated using the 2009 CKD_EPI creatinine equation. ----PREVIOUSLY REPORTED ---- 61, Flagged as: Normal (Reported 11/28/2020 04:10) eGFR Non-Black/ 84 >=60 mL/min/BSA 4:31 AM CDT [facility] Comment: REVISED RESULTS ----ADDITIONAL INFORMATION---- Estimated GFR calculated using the 2009 CKD_EPI creatinine equation. ----PREVIOUSLY REPORTED ---- 53, Flagged as: Abnormal_Low (Reported 11/28/2020 04:10) Calcium, Total, P 8.5 (L) 8.6 - 10.0 mg/dL 11/28/2020 4:31 AM CDT [facility] Comment: ----PREVIOUSLY REPORTED ---- Demographics adjusted: [...] Organization Address City/State/ZIP Code Phon e Number [facility] - [address] [place], [place] [address] [place] [address] Laboratories-[facility] [address] CBC with Differential, Blood (11/28/2020 3:31 AM CDT) P athologist Signature Hemoglobin CANCELED 13.2 - 16.6 11/28/2020 [facility] g/dL 6:12 AM CDT Comment: REVISED RESULTS ----PREVIOUSLY REPORTED ---- 13.9, Flagged as: Normal (Reported 11/28/2020 03:42) Hematocrit CANCELED 38.3 - 48.6 % 11/28/2020 6:[address] [facility] Comment: REVISED RESULTS ----PREVIOUSLY REPORTED ---- 44.7, Flagged as: Normal (Reported 11/28/2020 03:42) Erythrocytes CANCELED 4.35 - 5.65 x10(12)/L 11/28/2020 6:12 AM CDT [facility] Comment: REVISED RESULTS ----PREVIOUSLY REPORTED ---- 4.97, Flagged as: Normal (Reported 11/28/2020 03:42) MCV CANCELED 78.2 - 97.9 fL 11/28/2020 6:[address] [facility] Comment: REVISED RESULTS ----PREVIOUSLY REPORTED ---- 89.9, Flagged as: Normal (Reported 11/28/2020 03:42) RBC Distrib Width CANCELED 11.8 - 14.5 % 11/28/2020 6:12 AM CDT [facility] Comment: REVISED RESULTS ----PREVIOUSLY REPORTED ---- 14.1, Flagged as: Normal (Reported 11/28/2020 03:42) Platelet Count CANCELED 135 - 317 x10(9)/L 11/28/2020 6:12 AM CDT [facility] Comment: REVISED RESULTS ----PREVIOUSLY REPORTED ---- 355, Flagged as: Abnormal_High (Reported 11/28/2020 03:42) Leukocytes CANCELED 3.4 - 9.6 x10(9)/L 11/28/2020 6:12 AM C DT [facility] Comment: REVISED RESULTS ----PREVIOUSLY REPORTED ---- 17.7, Flagged as: Abnormal_High (Reported 11/28/2020 03:42) Neutrophils CANCELED 1.56 - 6.45 x10(9)/L 11/28/2020 6:12 A M CDT [facility] Comment: REVISED RESULTS Auto-diff results not valid. [...] 11/29/19 3:40 Venous) CDT AM CDT Narrative [facility] - 11/28/2020 6:12 AM CDT CBC with Differential, B was cancelled on 11/28/2020 at 06:12; Duplicate test request. !CNCL! Hubert Smith M.D. LAB BLOOD ADD-ON Performing Organization Address City/State/ZIP Code Phon e Number [facility] - [address] [place], [place] [address] [facility] [place] [address] [facility] 200 [place] [address] [facility] 200 [facility] Blood Gas, Venous, POCT (11/28/2020 3:31 AM [...] POCT ORDERABLES - DEVICE Performing Organization Address City/[facility]/ZIP [facility] Phon e Number [facility] - [address] [place], [place] [address] [facility] [place] [address] Laboratories-[facility] 200 [facility] (ABNORMAL) Lactate, POCT (11/28/2020 3:29 AM CDT) [...] POCT ORDERABLES - DEVICE Performing Organization Address [facility] Phon e Number [facility] SERVICES [address] [place] [address] [place] [address] [facility] 200 [facility] (ABNORMAL) Venous Blood Gas and Electrolytes CG8+, [...] City/State/ZIP Code Phon e Number POC RST [facility] INPATIENT [address] [place], [place] [address] LABS PCSM [facility] [place] [address] [place] [facility] [address] [place] [address] ECG 12 Lead (11/28/2020 3:24 AM CDT) P athologist Signature Ventricular Rate 115 BPM MUSE ECG/Min HI Interval 140 ms MUSE QRSD Interval 92 ms MUSE QT Interval 334 ms MUSE QTC Interval 462 ms MUSE P Velma 76 degrees MUSE R Velma 64 degrees MUSE T Wave Velma 78 degrees MUSE Specimen Anatomical Collection Method Collection Time Receive d Time (Source) Location / / Volume Laterality 11/28/2020 3:24 AM 1 3:46 CDT PM CDT Impressions MUSE - [...] Smith M.D. ECG ORDERABLES Performing Organization Address City/[facility]/ZIP Code Phon e Number MUSE MUSE NA ECG 12 Lead (11/28/2020 3:24 AM CDT) P athologist Signature Ventricular Rate 115 BPM MUSE ECG/Min HI Interval 140 ms MUSE QRSD Interval 92 ms MUSE QT Interval 334 ms MUSE QTC Interval 462 ms MUSE P Velma 76 degrees MUSE R Velma 64 degrees MUSE T Wave Velma 78 degrees MUSE Specimen Anatomical Collection Method [...] 2.20 12:50 PM CDT mmol/L Sample Site, [facility] 12/01/2020 [facility] POCT 12:50 PM CDT Specimen Anatomical Collection Method Collection Time Receive d Time (Source) Location / / Volume Laterality Blood 11/28/2020 3:04 AM CDT 12:49 PM CDT Generic Rals LAB POCT ORDERABLES - DEVICE Performing Organization Address City/State/ZIP Code Phon e Number POC [facility] LAB SERVICES [address] [place] [address] [facility] [place] [address] [place] [facility] [address] (ABNORMAL) Blood Gas and Electrolytes CG8+, Point of Care, [place] In[facility], Vascular Access Head Of Sales (11/28/2020 3:02 AM CDT) athologist Signature Sample Site, [facility] 12/01/2020 [facility] POCT 12:40 PM CDT Comment: [...] Address City/State/ZIP Code Phon e Number POC [facility] SERVICES [address] [place] [address] [facility] [place] [address] [place] [facility] [address] documented in this encounter Visit Diagnoses Diagnosis Edema Pulmonary (HCC) - Primary Edema Pulmonary (HCC) Other Pneumothorax Myocardial Infarction 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 [place] Cor onary Artery With Other Forms Angina Pectoris (Stable Angina/Angina Of Exertion) (HCC) Acute Respiratory Failure With Hypoxia ( HCC) Hypoxemia Diabetes Mellitus Type 2 Hyperglycemia ( HCC) Hypertension Essential Primary Coronary Stent Status Post Acute Respiratory Failure With Hypercapn ia (HCC) Acute Respiratory Failure With Hypoxia ( HCC) Atherosclerotic Heart Disease [place] Cor onary Artery With Other Forms Angina Pectoris (Stable Angina/Angina Of Exertion) (HCC) Pneumothorax Unspecified Atherosclerotic Heart Disease [place] Cor onary Artery With Other Forms Angina Pectoris (Stable Angina/Angina Of Exertion) (HCC) documented in this encounter Admitting Diagnoses Diagnosis Edema Pulmonary (HCC) Atherosclerotic Heart Disease [place] Cor onary Artery With Other Forms Angina Pectoris (Stable Angina/Angina Of Exertion) ([facility]) documented in this encounter Administered Medications Inactive [...] Daily, First dose (after last modification) on 12/04/20 at 0900 Given 12/04/2020 8:03 AM CDT [...] Given 12/02/2020 5:15 PM CDT 0.5 mg agprnuzmzjfn-zewi-PT-Ca-minerals 400 mcg Given 12/05/2020 8:32 A M [...] hours PRN, na usea, vomiting, Starting on 11/28/20 at 1431 oxyCODONE IR tablet 5 mg [...] (TYLENOL) 0358 (Given - Provider: Luis Bautista RKristin)0908 (Given - Provider: Katelyn Johnson, R.N., CNL)1524 (Not Given - Provider: Katelyn Johnson, R.N., CNL - Reason: Patient/family refused) 0248 (Given - Provider: Leora hunter RLisaNLisa)0946 (Given - Provider: Katelyn Johnson, R.N., CNL)1547 (Given - Provider: Katelyn Johnson, R.N., CNL)2145 (Given - Provider: Leora Cho R.N.) 0323 (Given - Provider: Leora Cho R.N.)0903 (Given - Provider: Sydni Sun RLisaNLisa)1548 (Given - Provider: Analia Das RLisaNLisa) 1,000 mg, oral, Every 6 hours, First dos e (after last modification) on Sat11/29/20 at 1545 2126 (Given - Provider: Leora Cho R.N.) aspirin DR tablet 81 mg 2021 (Given - Provider: Leora ugarte R.N.) 2145 (Given - Provider: Leora Cho R.N.) 81 [...] mg (PLAVIX) 0800 (Given - Provid er: Katelyn Johnson, R.NLisa, CNL) 0803 (Given - Provider: Katelyn Johnson, R.N., CNL) 0832 (Given - Provider: Sydni Sun R.N.) 75 mg, oral, Daily, First dose on Sat12/03/20 at 0900 heparin (porcine) injection 5,000 Units 0626 (Given - Provider: Luis Bautista R.N.)1409 (Given - Provider: Katelyn Johnson, R.N., CNL)212 (Given - Provider: Leora Cho R.N.) 0635 (Given - Provider: Leora Cho R.N.)1548 (Given - Provider: Katelyn Johnson, R.NLisa, CNL)2145 (Given - Provider: Leora Cho R.N.) 0623 (Given - Provider: Leora Cho R.N.)1435 (Given - Provider: Sydni Sun R.N.) 5,000 Units, subcutaneous, Every 8 hours scheduled, First dose on Sat11/28/20 at 1400 insulin aspart U-100 (Carbohydrate Count ) injection 0-20 Units (NovoLOG FlexPen) 0901 (Given - Provider: Linda JohnsonSLisaNLisa, R.NLisa, CNL)1304 (Given - Provider: Linda JohnsonS.NLisa, R.NLisa, CNL - Comment: ordered late)192 (Given - Provider: Leora Cho R.N. - Comment: eating dinner now) 0904 (Given - Provider: Linda JohnsonS.N., R.N., CNL)1238 (Given - Provider: Linda JohnsonS.NLisa, R.NLisa, CNL)193 (Given - Provider: Leora Cho [...] dinner now) 0801 (Not Given - Provider: Kaila Johnson.S.N., R.N., CNL - Reason: Order parameters not [...] 754 (Not Given - Provider: Katelyn Johnson, CarrieNLisa, [place] - Reason: Order parameters not met) [...] tartrate tablet 25 mg (LOPRESSOR) (CANCELED ) 0800 (Given - Provider: Katelyn Johnson, Chandan.NLisa, [place]) 25 mg, oral, 2 times daily, First dose on Sat11/28/20 at 2100 metoprolol tartrate tablet 50 mg (LOPRESSOR) 2021 (Giv en - Provider: Leora Cho R.N.) 08 (Given - Provider: Katelyn Johnson, R.NLisa, [place])2145 (Given - Provider: Leora Cho R.N.) 0832 (Given - Provider: Sydni Sun RLisaNLisa) 50 mg, oral, 2 times daily, First dose ( after last modification) on 12/03/20 at 2100 zwvyzzamgunu-eohv-AT-Ca-minerals 400 mcg (folic acid) tablet 1 tablet (THERAPEUTIC-M) 0800 (Given - Provider: Linda JohnsonSLisaNLisa, R.NLisa, [place]) 0803 (Given - Provider: Jim Bradley M.S.NLisa, R.N., [place]) 0832 (Given - Provider: Sydni Sun R.N.) 1 tablet, oral, Daily, First dose on Sat11/29/20 at 0900 nicotine 21 mg/24 hr 1 patch (NICODERM CQ) 0808 (Not G iven - Provider: Katelyn Johnson, RLisaNLisa, [place] - Reason: Patient/family refused) 08 (Not Given - Provider: Katelyn Johnson, R.NLisa, [place] - Reason: Patient/family refused) 0831 (Not [...] (MIRALAX) 08 (Given - Provider: Katelyn Johnson, R.NLisa, [place]) 08 (Given - Provider: Katelyn Johnson, R.NLisa, [place]) 08 (Given - Provider: Sydni Sun [...] refused) 08 (Given - Provider: Katelyn Johnson, R.N., MARCOSL)2145 (Given - Provider: Leora Cho R.N.) 0831 (Given - Provider: Sydni Sun R.N.) 2 tablet, oral, 2 times daily, First dos e (after last modification) on Sat12/02/20 at 0900 sodium chloride 0.9 % injection 10 mL 0900 (Given - Pr ovider: Katelyn Johnson, R.NLisa, CNL)212 (Given - Provider: Leora Cho R.N.) 08 (Given - Provider: Katelyn Johnson, RKristin, MARCOSL)222 (Given - Provider: Leora Cho R.N.) [...] R.N.) 1 application, topical, 3 times daily HI N, itching, irritation, rash, Starting on Sat12/03/20 [...] Provider: Leora Cho R.N.)0946 (Given - Provider: Kalia Johnson.S.N., R.N., CNL)1235 (Given - Provider: Kaila [...] 7-10 of 10, Starting on 12/03/20 at 072022 (Given - Provider: Leora Cho R.N.)8922 (Given - Provider: Leora Cho R.N.) 1547 (Given - Provider: Katelyn Johnson, R.NLisa, CN)193 (Given - Provider: Leora Cho R.N.)2224 (Given - Provider: Leora Cho R.N.) documented in this encounter Additional Health Concerns Infection Onset Date Last Indicated Resolved Time COVID19 Pending 11/28/2020 11/28/2020 11/28/2020 5:01 AM CDT documented as of this encounter
--- OUTSIDE RECORDS SUMMARY | 2022-04-02 19:43 | XMS_ITS | Encounter Summary ---
:1965 Author Organization [facility] Address [address] [place] [address] Care Team Providers Name Role Phone Unavailable [...] or relatives? How often do you attend mormonism or More than 4 times per year 02/09/2021 jehovah's witness services? Do you belong to any clubs or Yes 02/09/2021 organizations such as mormonism groups, unions, fraternal or athletic groups, or [...] Pulmonary Medicine Mario Pitt M.D. [address] [place] [phone] 05/23/2022 Office Visit Cardiovascular Disease Osman Wesley M.D. [address] [place] [address] documented as of this encounter Visit Diagnoses Not on filedocumented in this encounter
--- OUTSIDE RECORDS SUMMARY | 2022-04-02 19:43 | XMS_ITS | Encounter Summary ---
:1965 Author Organization [facility] Address [address] [place] [address] Care Team Providers Name Role Phone Elsewhere, Pcp Primary Care Provider Unavailable Encounter Details Date Type Department Care Team Description 12/01/2020 Orders Only [facility], [facility], [facility], Dante Stafford [facility], [facility] Floo r [address] [facility] [address] [place] [phone] (Wo rk) Social History Tobacco Use Types [...] Appointment Pulmonary Medicine Mario Pitt M.D. [address] [place] [address] 05/23/2022 Office Visit Cardiovascular Disease Osman Wesley M.D. [address] [place] [address] documented as of this encounter Visit Diagnoses Not on filedocumented in this encounter Additional Health Concerns Infection Onset Date Last Indicated Resolved Time COVID19 Pending 01/26/2021 01/26/2021 01/26/2021 12:29 PM CDT COVID19 01/26/2021 01/26/2021 02/15/2021 4:55 AM CDT documented as of this encounter Care Teams Courtesy Car Driver Relationship Specialty Start Date End Date Elsewhere, Pcp PCP - General 02/22/21 documented as of this encounter
--- OUTSIDE RECORDS SUMMARY | 2022-04-02 19:43 | XMS_ITS | Encounter Summary ---
:1965 Author Organization [facility] Address [address] [place] [address] Care Team Providers Name Role Phone Unavailable [...] Pulmonary Medicine Mario Pitt M.D. [address] [place] [phone] 05/23/2022 Office Visit Cardiovascular Disease Osman Wesley M.D. [address] [place] [address] documented as of this encounter Visit Diagnoses Not on filedocumented in this encounter
--- OUTSIDE RECORDS SUMMARY | 2022-04-02 19:43 | XMS_ITS | Encounter Summary ---
:1965 Author Organization [facility] Address [address] [place] [address] Care Team Providers Name Role Phone Unavailable Primary Care Provider Unavailable Encounter Details Date Type Department Care Team Description 09/18/2007 Hospital Encounter HX [facility] Luis Lomeli M.D. [address] [place] [phone] (Wo rk) Social History Tobacco Use Types [...] Appointment Pulmonary Medicine Mario Pitt M.D. [address] [place] [address] 05/23/2022 Office Visit Cardiovascular Disease Osman Wesley M.D. [address] [place] [address] documented as of this encounter Visit Diagnoses Not on filedocumented in this encounter
--- OUTSIDE RECORDS SUMMARY | 2022-04-02 19:43 | XMS_ITS | Encounter Summary ---
:1965 Author Organization [facility] Address [address] [place] [address] Care Team Providers Name Role Phone Unavailable [...] Pulmonary Medicine Mario Pitt M.D. [address] [place] [phone] 05/23/2022 Office Visit Cardiovascular Disease Osman Wesley M.D. [address] [place] [address] documented as of this encounter Visit Diagnoses Not on filedocumented in this encounter
--- OUTSIDE RECORDS SUMMARY | 2022-04-02 19:43 | XMS_ITS | Encounter Summary ---
:1965 Author Organization [facility] Address [address] [place] [address] Care Team Providers Name Role Phone Elsewhere, Pcp Primary Care Provider Unavailable Encounter Details Date Type Department Care Team Description 01/01/2003 Historical Ophthalmology RST [facility] Man Yuen M.D. [address] [place] [address] (Wo rk) Social History Tobacco Use Types [...] More than 4 times per year 02/09/2021 gnosticism services? Do you belong to any clubs [...] #1 Astigmatism CDM Reports - [facility] Id: [id number] Status: Fnl documented in this encounter Plan of Treatment Upcoming Encounters Date Type Specialty Care Team Description 04/06/2022 Clinical Communication Admitting/Central Scheduling 04/09/2022 Appointment Pulmonary Medicine Mario Pitt M.D. [address] [place] [address] 05/23/2022 Office Visit Cardiovascular Disease Osman Wesley M.D. [address] [place] [address] documented as of this encounter Visit Diagnoses Not on filedocumented in this encounter Additional Health Concerns Infection Onset Date Last Indicated Resolved Time COVID19 Pending 11/28/2020 11/28/2020 11/28/2020 5:01 AM CDT COVID19 Pending 01/26/2021 01/26/2021 01/26/2021 12:29 PM CDT COVID19 01/26/2021 01/26/2021 02/15/2021 4:55 AM CDT documented as of this encounter Care Teams Track Leader Relationship Specialty Start Date End Date Elsewhere, Pcp PCP - General 02/22/21 documented as of this encounter
--- OUTSIDE RECORDS SUMMARY | 2022-04-02 19:44 | XMS_ITS | Clinical Summary ---
:1965 Author Organization [employer] [employer] [facility] [place] [address] Care Team Providers Name Role Phone Trish [...] type, unspecified whether angina present, unspecified whether te-moak or transplanted heart furosemide (LASIX) Take 1 [...] Added automatically from request for [facility] [phone] Right carotid bruit 12/09/2020 History of pneumothorax 12/09/2020 Coronary artery disease involving te-moak coronary melonie ry of te-moak heart 11/28/2020 without angina pectoris Overview: Formatting of this note might be differe nt from the original. Formatting of this note might be differe nt from the original. Added automatically from request for [facility] [id number] Last Assessment & Plan: Formatting of this note might be differe nt from the original. Stable without angina Unspecified essential hypertension 03/16/2008 Resolved Problems Problem Noted Date Resolved Date Tobacco use disorder 03/16/2008 09/28/2020 Encounters Date Type Specialty Care Team Description 04/02/2022 Telephone Humberto Jones [facility] cristal Steinberg MD Update 03/30/2022 Ancillary Procedure Arrived 03/30/2022 Telephone Humberto Jones Medication Management; MD Idris High Blood Pres sure 03/30/2022 Orders Only Melody Briones, TERENCE <No scans attached> 03/30/2022 Travel 03/30/2022 Medical Messaging Trish Hinton Jef frey Wynne MD 03/28/2022 Refill Humberto Jones Refill Requ est MD Idris (Furosemide) 03/28/2022 Telephone Edgar Hatch EGD MD 03/26/2022 Orders Only Lab, [facility] 03/26/2022 Office Visit [facility]; Hip Pain/problem (x 1 day); Cough 03/26/2022 Travel 03/20/2022 Orders Only Lab, [facility] 03/20/2022 Telephone Clinic, [place] Referral 03/15/2022 Telemedicine Humberto Jones MD 03/15/2022 [...] No / Unsu re 03/30/2022 9:33 AM PROCESS IMPROVEMENT CONSULTANT someone who was confirmed or suspected to have Coronavirus/COVID-19? Obstetrics History Last Filed Vital Signs Vital Sign Reading Time Taken Comments Blood Pressure 149/92 03/26/2022 1:32 PM PROCESS IMPROVEMENT CONSULTANT Pulse 73 03/26/2022 1:26 PM PROCESS IMPROVEMENT CONSULTANT Temperature 36.6 ??C (97.9 ??F) 09/28/2020 10:15 AM CDT Respiratory Rate 14 09/28/2020 10:15 AM CDT Oxygen Saturation 98% 03/26/2022 1:26 PM PROCESS IMPROVEMENT CONSULTANT Inhaled Oxygen Concentration - - Weight 79.8 kg (176 lb) 03/26/2022 1:26 PM PROCESS IMPROVEMENT CONSULTANT Height 179 cm (5' 10.47) 03/26/2022 1:26 PM PROCESS IMPROVEMENT CONSULTANT Body Mass Index 24.92 03/26/2022 1:26 PM PROCESS IMPROVEMENT CONSULTANT Plan of Treatment Upcoming Encounters Date Type Specialty Care Team Description 04/12/2022 Orders Only Lab, [facility] 04/12/2022 Office Visit Nisha Canseco ie, WAREHOUSE RECEIVING SUPERVISOR [address] [place], [place] [address] (Wo rk) 06/11/2022 Preop Visit Trish Hinton MD [address] [place] [address] ( mitzy) 06/18/2022 Procedure Only Edgar Hatch MD [address] [place] [address] ( mitzy) Health Maintenance Due [...] left Results for this AND LATERAL AM PROCESS IMPROVEMENT CONSULTANT History of pneumothorax proc edure are in the results section. URINE ALBUMIN TO Routine 03/26/2022 2:54 Controlled type 2 Res ults for this CREATININE RATIO, PM PROCESS IMPROVEMENT CONSULTANT diabetes mellitus with procedure are in RANDOM diabetic polyneuropathy, the results without long-term section. current use of insulin (HC) BRAIN NATRIURETIC Routine 03/26/2022 2:50 Non-ischemic Results for this PEPTIDE PM PROCESS IMPROVEMENT CONSULTANT cardiomyopathy ( HC) procedure are in Other heart failure (HC) the results section. TSH WITH REFLEX Routine 03/26/2022 2:50 Acquired right f oot drop Results for this PM PROCESS IMPROVEMENT CONSULTANT Other specified procedure ar e in mononeuropathies of the resu lts bilateral lower limbs sectio n. VITAMIN B12 Routine 03/26/2022 2:50 Acquired right foot drop Results for this PM PROCESS IMPROVEMENT CONSULTANT procedure are i n the results section. HEMOGLOBIN A1C Routine 03/26/2022 2:50 Controlled type 2 Resul ts for this PM PROCESS IMPROVEMENT CONSULTANT diabetes mellitus with proce dure are in diabetic polyneuropathy, the results without long-term section. current use of insulin (HC) COMP METABOLIC Routine 03/26/2022 2:50 Ischemic cardiomyopathy Results for this PANEL PM PROCESS IMPROVEMENT CONSULTANT procedure are i n the results section. from Last 3 Months Results XR CHEST 2 VIEWS PA AND LATERAL (03/30/2022 9:45 AM PROCESS IMPROVEMENT CONSULTANT) Anatomical Region Laterality Modality CHEST, THORAX, Lung, HEART Computed Radi ography Specimen (Source) Anatomical Collection Method Collection Time Re ceived Time Location / / Volume Laterality 03/30/2022 10:00 AM PROCESS IMPROVEMENT CONSULTANT Impressions 03/30/2022 10:00 AM PROCESS IMPROVEMENT CONSULTANT Small left pleural effusion. No pneumothorax. Dictated by Luis Dash MD @ Mar ??2 2021 10:00AM (Electronically Signed) ?? Narrative 03/30/2022 10:00 AM PROCESS IMPROVEMENT CONSULTANT For Patients: ??As a result of the Cures Act, medical imaging exams and procedure report s are released immediately into your [facility] medical record. ??You may view this report [...] provider. If you have questions, please contact [facility] health care provider. INDICATION: Left pleural effusion [...] TO CREATININE RATIO, RANDOM (03/26/2022 2:54 PM PROCESS IMPROVEMENT CONSULTANT) Patholo gist Method Time Signature ALB RAND URINE 30.9 mg/L 03/27/2022 [facility] 8:22 AM PROCESS IMPROVEMENT CONSULTANT LAB[facility]ATORY[facility] CREATININE,URIN 0.36 g/L 03/27/2022 [facility] E 8:22 AM PROCESS IMPROVEMENT CONSULTANT [facility]AT[facility] ALBUMIN TO 85.8 (H) <30.0 mg/g 03/27/2022 [facility] CREATININE creat 8:22 AM PROCESS IMPROVEMENT CONSULTANT LABORATORY-[facility] RATIO,RAND UR TRAL LABORATORY Specimen Anatomical Collection Method Collection Time Receive d Time (Source) Location / / Volume Laterality Urine URINE SPECIMEN / Non-Blood / 03/26/2022 2:54 PM 03/26 2:54 Unknown Unknown PROCESS IMPROVEMENT CONSULTANT PM PROCESS IMPROVEMENT CONSULTANT Narrative [facility] LABORATORY-[facility] - 03/27/2022 8:22 AM PROCESS IMPROVEMENT CONSULTANT If Albumin to Creatinine Ratio is elevated, [...] Organization Address City/State/ZIP Code Phon e Number [facility] [address] [place] [address] LABORATORY-[facility] LABORATORY TSH WITH REFLEX (03/26/2022 2:50 PM PROCESS IMPROVEMENT CONSULTANT) athologist Signature TSH 2.34 0.35 - 4.94 03/27/2022 [facility] uIU/mL 8:10 PM PROCESS IMPROVEMENT CONSULTANT LAB[facility]ATORY[facility] LABORATORY Specimen Anatomical Collection Method / Collection Time Recei toe Time (Source) Location / Volume Laterality Blood BLOOD SPECIMEN / Venipuncture / 03/26/2022 2:50 2021 2:52 Unknown Unknown PM PROCESS IMPROVEMENT CONSULTANT PM PROCESS IMPROVEMENT CONSULTANT Narrative [facility] LAB[facility]ATORYFORM[facility]LY [facility] - 03/27/2022 8:10 PM PROCESS IMPROVEMENT CONSULTANT In Adults, TSH values between 5.00 and 10.00 uIU/ml do not necessarily indicate the presence of Hyp othyroidism. Correlation with clinical findings such as presence of goiter and/or Thyroperoxidase (TPO) Antibody ma y be helpful. For more information please refer to [facility] 20 ; 291: [id number]. Trish Hinton MD CHEMISTRY Performing Organization Address City/State/ZIP Code Phon e Number [facility] [address] [place] [address] LABORATORY-[facility] 2000 LABORATORY (ABNORMAL) BRAIN NATRIURETIC PEPTIDE (03/26/2022 2:50 PM PROCESS IMPROVEMENT CONSULTANT) athologist Signature BRAIN VITA 203 (H) <100 pg/mL 03/28/2022 [facility] PEPTIDE 12:07 AM PROCESS IMPROVEMENT CONSULTANT [facility]AT[facility] Specimen Anatomical Collection Method / Collection Time Recei teo Time (Source) Location / Volume Laterality Blood BLOOD SPECIMEN / Venipuncture / 03/26/2022 2:50 2021 2:52 Unknown Unknown PM PROCESS IMPROVEMENT CONSULTANT PM PROCESS IMPROVEMENT CONSULTANT Trish Hinton MD CHEMISTRY Performing Organization Address City/[facility] Phon e Number [facility] [address] [place] [address] LAB[facility]ATORY-[facility] LABORATORY HEMOGLOBIN A1C MONITORING (POCT) (03/26/2022 2:50 PM PROCESS IMPROVEMENT CONSULTANT) athologist Signature HEMOGLOBIN A1C 5.3 <=6.4 % 03/26/2022 [facility] [employer] MONITORING 3:08 PM PROCESS IMPROVEMENT CONSULTANT [place] [facility] Specimen Anatomical Collection Method / Collection Time Recei teo Time (Source) Location / Volume Laterality Blood BLOOD SPECIMEN / Venipuncture / 03/26/2022 2:50 2021 2:52 Unknown Unknown PM PROCESS IMPROVEMENT CONSULTANT PM PROCESS IMPROVEMENT CONSULTANT Narrative [facility] - 2021 3:08 PM PROCESS IMPROVEMENT CONSULTANT ? (<=6.9%) ? Indicates good control ? [...] City/State/ZIP Code Phon e Number [facility] [address] [place] [address] VITAMIN B12 (03/26/2022 2:50 PM PROCESS IMPROVEMENT CONSULTANT) athologist Signature VITAMIN B12 310 180 - 914 03/27/2022 [facility] pg/mL 11:17 AM PROCESS IMPROVEMENT CONSULTANT LABORATORY-[facility] LABORATORY Specimen Anatomical Collection Method / Collection Time Recei teo Time (Source) Location / Volume Laterality Blood BLOOD SPECIMEN / Venipuncture / 03/26/2022 2:50 2021 2:52 Unknown Unknown PM PROCESS IMPROVEMENT CONSULTANT PM PROCESS IMPROVEMENT CONSULTANT Trish Hinton MD CHEMISTRY Performing Organization Address City/State/ZIP Code Phon e Number [email or web address] [address] [place] [address] LABORATORY-[facility] 2000 LABORATORY COMP METABOLIC PANEL (03/26/2022 2:50 PM PROCESS IMPROVEMENT CONSULTANT) athologist Signature SODIUM 141 135 - 145 03/27/2022 [facility] mmol/L 7:56 PM PROCESS IMPROVEMENT CONSULTANT [facility] POTASSIUM 4.3 3.5 - 5.0 03/27/2022 [facility] mmol/L 7:56 PM PROCESS IMPROVEMENT CONSULTANT [facility] CHLORIDE 104 98 - 110 03/27/2022 [facility] mmol/L 7:56 PM PROCESS IMPROVEMENT CONSULTANT [facility] CO2,TOTAL 30 21 - 31 03/27/2022 [facility] mmol/L 7:56 PM PROCESS IMPROVEMENT CONSULTANT [facility] ANION GAP 7 5 - 18 03/27/2022 [facility] 7:56 PM PROCESS IMPROVEMENT CONSULTANT [facility] GLUCOSE 82 65 - 100 03/27/2022 [facility] mg/dL 7:56 PM PROCESS IMPROVEMENT CONSULTANT [facility] CALCIUM 9.7 8.5 - 10.5 03/27/2022 [facility] mg/dL 7:56 PM PROCESS IMPROVEMENT CONSULTANT [facility] BUN 11 8 - 25 03/27/2022 [facility] mg/dL 7:56 PM PROCESS IMPROVEMENT CONSULTANT [facility] CREATININE 0.78 0.72 - 03/27/2022 [facility] 1.25 mg/dL 7:56 PM PROCESS IMPROVEMENT CONSULTANT [facility] BUN/CREAT RATIO 14 10 - 20 03/27/2022 [facility] 7:56 PM PROCESS IMPROVEMENT CONSULTANT [facility] ALBUMIN 4.4 3.5 - 5.2 03/27/2022 [facility] g/dL 7:56 PM PROCESS IMPROVEMENT CONSULTANT [facility] PROTEIN,TOTAL 7.4 6.0 - 8.0 03/27/2022 [facility] [employer] g/dL 7:56 PM PROCESS IMPROVEMENT CONSULTANT [facility] GLOBULIN 3.0 2.0 - 3.7 03/27/2022 [facility] [employer] g/dL 7:56 PM PROCESS IMPROVEMENT CONSULTANT [facility] A/G RATIO 1.5 1.0 - 2.0 03/27/2022 [facility] [employer] 7:56 PM PROCESS IMPROVEMENT CONSULTANT LAB[facility]AT[facility] BILIRUBIN,TOTAL 0.4 0.2 - 1.2 03/27/2022 [facility] [employer] mg/dL 7:56 PM PROCESS IMPROVEMENT CONSULTANT [facility] ALK PHOSPHATASE 61 50 - 136 03/27/2022 [facility] [employer] IU/L 7:56 PM PROCESS IMPROVEMENT CONSULTANT [facility] ALT (SGPT) 9 8 - 45 03/27/2022 [facility] [employer] IU/L 7:56 PM PROCESS IMPROVEMENT CONSULTANT [facility] AST (SGOT) 13 2 - 40 03/27/2022 [facility] [employer] IU/L 7:56 PM PROCESS IMPROVEMENT CONSULTANT [facility] eGFR >90 >90 03/27/2022 [facility] mL/min/1.7 7:56 PM PROCESS IMPROVEMENT CONSULTANT LABORATORY-[facility] 3m2 TRAL LABORATORY Comment: As of [...] 03/26/2022 2:50 2021 2:52 Unknown Unknown PM PROCESS IMPROVEMENT CONSULTANT PM PROCESS IMPROVEMENT CONSULTANT Humberto Jones MD CHEMISTRY Performing Organization Address City/State/ZIP Code Phon e Number [facility] [facility] [address] [place] [address] LABORATORY-[facility] 2000 LABORATORY from Last 3 Months Insurance Payer Benefit Plan / Subscriber ID Effective Dates Phone Addre ss Type Group MEDICARE PART B MEDICARE PART B [id number] 2008-Present ATTN: CLAIMS - HB USE ONLY HB ONLY [address] [place] [address] MEDICARE - PB MEDICARE PB [id number] 2008-Present ATT N: CLAIMS USE ONLY ONLY [address] [place] [address] Care Teams Printed Circuit Board Reworker Relationship Specialty Start Date End Date Trish Hinton MD PCP - General Family Practice 03/26/22 [address] [place] [address]
== END 2022-04-02 19:45 | disposition home or self-care (01) ==
LOC: ED 19:35
PROVIDERS: Emergency Provider Emergency Medicine Emergency Medical Services
DX: R55 Syncope and collapse (principal)
CPT/HCPCS: 93005; 99284